=== PATIENT | female | born 1950 | race Caucasian/White ===

== ENCOUNTER → 2016-11-30 | Outpatient (CLI) | payer BC ==
[~2016-11-30] MED LIST: ALBINS/ INH; ALBUAER2 INH; APIX1TAB3 PO; ASCO100061 PO; ASPCH81X PO; CHOL100010 PO; CHOL100027 PO; CYAN100020 PO; ELQ25 PO; FLUT1INH INH; GLUC500T23 PO; LEVO125T5 PO; LEVO137T3 PO; MAGN400T6 PO; METO25TA56 PO; MOME16.7 INH; MULT-506 PO; OMEG10007 PO; OMEP20CA9 PO; OXGN; POTA1TAB PO; VNTHFA/IN INH; ZCR40 PO; ZLF/50 PO
[2016-11-30 16:53] LABS: URINE APPEARANCE CLEAR (CLEAR); URINE BILIRUBIN NEG (NEG); URINE COLOR YELLOW; URINE EPITHELIAL CELL AUTO >30 /lpf (0-5); URINE NITRITE NEG (NEG); URINE PH 6.5 (4.5-7.5); URINE SPECIFIC GRAVITY 1.009 (1.000-1.030); UROBILINOGEN NEG (NEG); ZZUR CULT IF INDIC CLEAN CATCH YES
[2016-11-30 17:00] LABS: MANUAL MICROSCOPIC REQUIRED? NO; REVIEW REQ? NO
[2016-11-30 17:07] LABS: CHOLESTEROL/HDL RATIO 2.3; THYROID STIMULATING HORMONE 0.11 uIu/ml (0.300-4.500)
== END | disposition home or self-care (01) ==
LOC: C.LABBFT 12:39
PROVIDERS: ATTEND Internal Medicine
DX: E03.9 Hypothyroidism, unspecified (principal); C18.9 Malignant neoplasm of colon, unspecified; M85.80 Other specified disorders of bone density and structure, unspecified site; E78.00 Pure hypercholesterolemia, unspecified

== ENCOUNTER → 2017-01-06 | Outpatient (CLI) | payer BC ==
[~2017-01-06] MED LIST changes: -ALBINS/ INH; -CHOL100027 PO; -ELQ25 PO; +LEVO125T4 PO; -LEVO125T5 PO; -METO25TA56 PO; -MOME16.7 INH; +OPTIRAY 320 IV PRN; -VNTHFA/IN INH
--- NOTE | 2017-01-06 07:18 | DIAGNOSTIC IMAGING REPORT ---
CHEST CT WITH CONTRAST CT DOSE: 3365.81 mGy.cm HISTORY: Colon carcinoma. COLON CA. TECHNIQUE: Multiaxial CT images of the chest were performed following the intravenous administration of contrast. COMPARISON: 09/10/2016 FINDINGS: Unchanged study of the right hemithorax compared to the prior exam. The consolidative and bronchiectatic changes in the right perihilar distribution have remained essentially identical compared to the prior study. There are no new interval or progressive changes involving the right hemithorax. Mild associated volume loss has remained unchanged. Left lung remains clear. There is no significant interval or new parenchymal nodularity. Hilar and mediastinal regions of the right hilar changes noted have remains stable. There is no evidence for new interval or progressive juan change. Limited evaluation of the upper abdomen remains unremarkable. Osseous structures show mild degenerative change. IMPRESSION: 1. Stable evaluation of chest compared to the prior study. 2. The right perihilar and right hilar and parenchymal changes remain stable. 3. No evidence for new interval or progressive process. Electronically signed by: Michael Bhat M.D. 01/06/2017 7:16 AM Dictated Date/Time: 01/06/2017 7:15 AM
--- NOTE | 2017-01-06 07:33 | DIAGNOSTIC IMAGING REPORT ---
CT OF THE ABDOMEN AND PELVIS WITH CONTRAST CLINICAL HISTORY: Colon cancer. COMPARISON STUDY: CT of the abdomen and pelvis September 10, 2016 and PET/CT July 07, 2016. TECHNIQUE: Following IV administration of 93 mL of Optiray-320, axial images of the abdomen and pelvis were obtained from the lung bases to the proximal femurs. Images were reviewed in the axial, sagittal, and coronal planes. IV contrast was administered without complication. Oral contrast was administered. FINDINGS: The chest will be reported separately. The liver, spleen, adrenal glands and pancreas are unremarkable. There are left-sided parapelvic cysts. There is no hydronephrosis. A gallstone is noted. There are findings consistent with a ventral hernia repair with mesh. There is no evidence for a bowel obstruction. The caliber and wall thickness of small and large bowel are normal. No abdominal or pelvic lymphadenopathy is present. No suspicious osseous lesions are present. IMPRESSION: 1. No evidence of metastatic disease within the abdomen or pelvis. 2. Cholelithiasis. Electronically signed by: Darron Price M.D. 01/06/2017 7:32 AM Dictated Date/Time: 01/06/2017 7:25 AM
== END | disposition home or self-care (01) ==
LOC: C.CTS 06:23
PROVIDERS: ATTEND Internal Medicine Hematology & Oncology
DX: C18.9 Malignant neoplasm of colon, unspecified (principal)

== ENCOUNTER → 2017-03-01 | Outpatient (CLI) | payer BC ==
[~2017-03-01] MED LIST changes: +CHOL100027 PO; +ELQ25 PO; -LEVO125T4 PO; +LEVO125T5 PO; +METO25TA56 PO; +MOME16.7 INH; -OPTIRAY 320 IV PRN; +VNTHFA/IN INH
--- NOTE | 2017-03-01 18:16 | DIAGNOSTIC IMAGING REPORT ---
CHEST 2 VIEWS ROUTINE CLINICAL HISTORY: C78.00 Secondary cancer of [id number] dyspnea COMPARISON STUDY: 04/12/2015. CT chest dated 01/06/2017. FINDINGS: Unchanging right hilar masslike enlargement compared to the prior CT of the chest. Chronic blunting right lateral costophrenic angle. Left lung is considered clear. IMPRESSION: Right hilar mass unchanged from the prior study. Chronic right hemithoracic findings. No acute process. Electronically signed by: Michael Bhat M.D. 03/01/2017 6:15 PM Dictated Date/Time: 03/01/2017 6:13 PM
== END | disposition home or self-care (01) ==
LOC: C.RAD 17:44
PROVIDERS: ATTEND Nurse Practitioner
DX: C78.00 Secondary malignant neoplasm of unspecified lung (principal)

== ENCOUNTER → 2017-03-21 | Outpatient (CLI) | payer BC ==
[~2017-03-21] MED LIST changes: +OPTIRAY 320 IV PRN
--- NOTE | 2017-03-21 18:30 | DIAGNOSTIC IMAGING REPORT ---
CT ANGIOGRAM OF THE CHEST CLINICAL HISTORY: Dyspnea. Lung cancer history. COMPARISON STUDY: Prior chest CT scans dated and 12/21/2013. Chest x-ray dated 03/01/2017. TECHNIQUE: Following the IV administration of 93 cc Optiray 320, CT angiogram of the chest was performed from the upper abdomen to the thoracic inlet utilizing the pulmonary embolus protocol. Images are reviewed in the axial, sagittal, and coronal planes. 3 MIPS images are created and assessed. IV contrast was administered without complication. The examination is degraded by large body habitus and by streak artifact from the patient's body wall abutting the CT gantry. FINDINGS: THYROID: The right lobe of the thyroid gland is diminutive or surgically absent. The left lobe of the thyroid gland is normal in attenuation. A 1.6 cm low attenuation nodule is again seen in the left lobe. THORACIC AORTA: There is minimal atherosclerotic calcification of the thoracic aorta which is normal in caliber and demonstrates standard 3-vessel arch anatomy. No dissection is seen. A left internal jugular central venous infusion port is in place. PULMONARY VASCULATURE: The pulmonary trunk is top normal in caliber measuring 3.0 cm in diameter. There are no filling defects identified within the main, lobar, or segmental pulmonary vessels to indicate pulmonary embolus. HEART: The heart is top normal in size and without pericardial effusion. The coronary artery calcifications are noted. MEDIASTINUM: There are scattered subcentimeter mediastinal lymph nodes. These are not pathologically enlarged by size criteria. JULIAN: Postoperative changes are noted in the right hilum and similar to previous. No evidence of progressive hilar adenopathy is seen. AXILLAE: There is no axillary lymphadenopathy. LUNGS AND PLEURAL SPACES: Again seen are postoperative changes from right upper lobectomy with associated volume loss in the right lung, elevation of the right hemidiaphragm, rightward shift of the mediastinum, and hyperinflation of the left lung. Scarring and fibrotic changes in the perihilar right lung are similar to previous. No new pulmonary lesions are seen. Postoperative change is again noted at the left apex. There is no airspace consolidation typical for pneumonia and no pleural effusion is seen.. Scattered calcified granulomas are identified. The trachea and central airways are patent. UPPER ABDOMEN: There is a small hiatal hernia. The liver appears enlarged and steatotic. Calcified gallstones are partially imaged. There is mild glandular atrophy of the partially imaged pancreas. No adrenal lesion is identified. There is a calcified splenic granuloma. SKELETAL STRUCTURES: The skeletal structures are osteopenic. No lytic or blastic bony lesions are identified. Mild degenerative changes are present throughout the thoracic spine. A hemangioma is noted in the body of L1. IMPRESSION: 1. There is no evidence of pulmonary embolus in the main, lobar, or segmental pulmonary arteries. 2. Unchanged appearance of the lung parenchyma from prior examinations noting postoperative change and fibrosis as above. 3. There is no airspace consolidation typical for pneumonia and no pleural effusion is identified. 4. Hepatic steatosis and cholelithiasis. 5. Additional findings as above. Electronically signed by: Isai Antoine M.D. 03/21/2017 6:28 PM Dictated Date/Time: 03/21/2017 6:20 PM
== END | disposition home or self-care (01) ==
LOC: C.CTS 17:47
PROVIDERS: ATTEND Nurse Practitioner
DX: C78.00 Secondary malignant neoplasm of unspecified lung (principal); R06.09 Other forms of dyspnea; Z86.711 Personal history of pulmonary embolism

== ENCOUNTER → 2017-05-02 | Outpatient (CLI) | payer BC ==
[~2017-05-02] MED LIST changes: -OPTIRAY 320 IV PRN
== END | disposition home or self-care (01) ==
LOC: C.CPL 15:27
PROVIDERS: ATTEND Surgery
DX: Z01.810 Encounter for preprocedural cardiovascular examination (principal); C18.9 Malignant neoplasm of colon, unspecified

== ENCOUNTER → 2017-06-01 | Outpatient (CLI) | payer BC ==
[~2017-06-01] MED LIST changes: -CHOL100027 PO; -ELQ25 PO; +LEVO125T4 PO; -LEVO125T5 PO; -LEVO137T3 PO; -METO25TA56 PO; -MOME16.7 INH; -OMEG10007 PO; -VNTHFA/IN INH
--- NOTE | 2017-06-01 12:33 | MAMMOGRAPHY REPORT ---
UNILATERAL LEFT DIGITAL DIAGNOSTIC MAMMOGRAM TOMOSYNTHESIS: 06/01/2017 CLINICAL HISTORY: 6 Month Follow-up. TECHNIQUE: Breast tomosynthesis in addition to standard 2D mammography was performed. Left CC and M LO 2-D and tomosynthesis images were obtained. COMPARISON: Comparison is made to exams dated: 11/24/2016 ultrasound, 11/24/2016 mammogram, 6 mammogram, 11/11/2015 mammogram, 11/06/2015 mammogram, and 11/05/2014 mammogram - [facility]. BREAST COMPOSITION: The tissue of the left breast is almost entirely fatty. FINDINGS: The previously described ill-defined mixed density masses seen within the left breast on t he prior mammogram are no longer evident and have resolved. Given the interval resolution, findings are benign and compatible with resolving fat necrosis. A small round circumscribed fat density 3 mm mass is seen within the left upper outer quadrant anteriorly, consistent with a small residual oil [place]. The remainder of the left breast is stable compared to prior exams, without suspicious masses, c alcifications, or areas of architectural distortion noted. IMPRESSION: ACR BI-RADS CATEGORY 2: BENIGN Mixed density masses in the left breast have resolved, and are benign and compatible with resolving f at necrosis. There is no mammographic evidence of malignancy. Return to annual mammogram screening s chedule is recommended, due October 2017. The patient has been verbally notified of the results. Approximately 10% of breast cancers are not detected with mammography. A negative mammographic report should not delay biopsy if a clinically suggestive mass is present. Gracie Carrera M.D. ah/:06/01/2017 08:15:50 Sweeper Driver: Radha Lopez RT(R)(Jose), [facility] letter sent: Normal 1/2 BI-RADS Code: ACR BI-RADS Category 2: Benign
== END | disposition home or self-care (01) ==
LOC: C.MAMM 07:53
PROVIDERS: ATTEND Internal Medicine
DX: N63 Unspecified lump in breast (principal)

== ENCOUNTER 2017-06-02 09:40 | Day surgery (SDC) | payer BC ==
[2017-05-23 09:58] VITALS: BMI 49.0
[~2017-06-02] VITALS: Ht 162.6 cm; Wt 131.7 kg
[2017-06-02 10:16] VITALS: BP 152/72; PULSE 96; TEMP 36.7; O2SAT 95; Ht 162.6 cm; Wt 131.7 kg
[2017-06-02] MEDS ORDERED: ONDANSETRON INJ 2 MG/ML 2 ML VIAL IV PRN ×2 (10:30→13:15)
[2017-06-02] MEDS ORDERED: ATROPINE SULFATE 0.1 MG/ML 5ML SYR IV PRN (10:30)
[2017-06-02] MEDS ORDERED: EpHEDrine SULFATE INJ 50 MG/ML AMP IV PRN (10:30)
[2017-06-02] MEDS ORDERED: FENTANYL CITRATE INJ 50 MCG/1 ML 2 ML VIAL IV PRN (10:30)
[2017-06-02] MEDS ORDERED: LIDOCAINE HCL 2% 2 ML VIAL (20MG/ML) ONE (10:53)
[2017-06-02] MEDS ORDERED: FENTANYL CITRATE INJ 50 MCG/1 ML 2 ML VIAL ONE (10:53)
[2017-06-02] MEDS ORDERED: PROPOFOL IV EMULSION 10 MG/ML 20 ML VIAL IV ONE (10:53)
[2017-06-02] MEDS ORDERED: MIDAZOLAM HCL 1 MG/ML 2ML VIAL ONE (10:53)
--- NOTE | 2017-06-02 12:03 | History & Physical Bridge Note ---
H&P Re-Evaluation Bridge Note: I have examined the patient, reviewed the History & Physical and in the interval since the performance of the History & Physical I have noted the following changes of clinical significance: No changes noted SO at bedside Blake Chavira Tuesday
[2017-06-02] MEDS ORDERED: LIDOCAINE/EPINEPHRINE 1% 20 ML VIAL ONE (12:12)
--- NOTE | 2017-06-02 13:04 | [facility] Post Operative Brief Note ---
Immediate Operative Summary Operative Date Jun 02, 2017. Pre-Operative Diagnosis Exhausted infusaport left ext jugular Post-Operative Diagnosis same Procedure(s) Performed infusaport removal Surgeon Dr Zimmerman Agricultural Equipment Design Engineer Surgeon(s) none Estimated Blood Loss 5 ml Findings as preop Specimens a. explanted infusaport Anesthesia 1%xyl(10cc and iv sedation
--- NOTE | 2017-06-02 13:08 | Discharge Instructions ---
Discharge Instructions Date of Service Jun 02, 2017. Visit Reason for Visit: Colon Cancer exhausted a-port Discharge Discharge Diagnosis / Problem: exhausted a-port Discharge Goals Goal(s): Decrease discomfort Activity Recommendations Activity Limitations: resume your previous activity Shower/Bathe: tomorrow (shower) Anesthesia . Post Anesthesia Instructions: If you have had General Anesthesia or IV Sedation: * Do not drive today. * Resume driving when surgeon permits. * Do not make important decisions or sign legal documents today. * Call surgeon for: 1. Temperature elevations greater than 101 degrees F. 2. Uncontrollable pain. 3. Excessive bleeding. 4. Persistent nausea and vomiting. 5. Medication intolerance (nausea, vomiting or rash). * For nausea and vomiting use only clear liquids such as: tea, soda, bouillon until nausea subsides, then gradually increase diet as tolerated. * If you have any concerns or questions, call your surgeon's office. If physician is unavailable and it is an emergency, call 911 or go to the nearest emergency room. . Instructions / Follow-Up Instructions / Follow-Up return office 1 week call [phone] for any problems Diet Recommendations Recommended Home Diet: resume previous diet Procedures Procedures Performed: infusaport removal Pending Studies Studies pending at discharge: no Medical Emergencies . Who to Call and When: Medical Emergencies: If at any time you feel your situation is an emergency, please call 911 immediately. . Non-Emergent Contact Non-Emergency issues call your: Primary Care Provider . . "Provider Documentation" section prepared by Richard Zimmerman. .
--- NOTE | 2017-06-02 13:13 | [facility] Operative Report ---
Operative Report Operative Date Jun 02, 2017. Pre-Operative Diagnosis Exhausted infusaport left ext jugular Post-Operative Diagnosis same Procedure(s) Performed infusaport removal Surgeon Dr Zimmerman [employer] Intelligence Officer Chief Surgeon(s) none Estimated Blood Loss 5 ml Findings as preop Specimens a. explanted infusaport Anesthesia 1%xyl(10cc and iv sedation Disposition PCU Indications exhausted a-port Description of Procedure iodine solution and sterile cond local infiltration a-port and cath removed intact 2 incision direct visualization of entry in ext jugular vein , sutured with 3-0 silk fibrous cap once cat removed 2-0 dexon sub cut and con skin edge I attest to the content of the Intraoperative Record and any orders documented therein. Any exceptions are noted below.
--- NOTE | 2017-06-02 13:30 | Anesthesiology Progress Note ---
Anesthesia Post Op Note Date & Time Jun 02, 2017 at 13:29 Vital Signs Pain Intensity: 0 Vital Signs Past 12 Hours Date Time Temp Pulse Resp B/P (MAP) Pulse Ox O2 Delivery O2 Flow Rate FiO2 06/02/17 13:21 36.6 99 20 157/88 95 06/02/17 13:14 101 16 06/02/17 13:14 99 16 95 06/02/17 13:12 147/86 06/02/17 13:09 103 33 06/02/17 13:09 103 33 98 06/02/17 13:06 157/85 06/02/17 13:04 103 16 99 06/02/17 13:04 104 16 06/02/17 13:01 178/94 06/02/17 13:00 166/90 06/02/17 12:59 36.2 103 18 166/90 (109) 100 Nasal Cannula 10 06/02/17 12:59 105 21 06/02/17 12:59 104 21 99 06/02/17 10:16 36.7 96 20 152/72 (98) 95 Room Air Notes Mental Status: alert / awake / arousable, participated in evaluation Pt Amnestic to Procedure: Yes Nausea / Vomiting: adequately controlled Pain: adequately controlled Airway Patency, RR, SpO2: stable & adequate BP & HR: stable & adequate Hydration State: stable & adequate Anesthetic Complications: no major complications apparent
[2017-06-02 13:55] VITALS: BP 138/77; PULSE 98; TEMP 36.6; O2SAT 95
[2017-06-02 14:10] VITALS: BP 143/65; PULSE 98; TEMP 36.6; O2SAT 95
== END 2017-06-02 14:20 | disposition home or self-care (01) ==
LOC: C.ACU 09:40
PROVIDERS: ATTEND Surgery
DX: Z45.2 Encounter for adjustment and management of vascular access device (principal); C18.9 Malignant neoplasm of colon, unspecified; C78.00 Secondary malignant neoplasm of unspecified lung; J45.909 Unspecified asthma, uncomplicated; D64.9 Anemia, unspecified; F41.9 Anxiety disorder, unspecified; F32.9 Major depressive disorder, single episode, unspecified; K21.9 Gastro-esophageal reflux disease without esophagitis; E78.00 Pure hypercholesterolemia, unspecified; E03.9 Hypothyroidism, unspecified; E66.9 Obesity, unspecified; M85.80 Other specified disorders of bone density and structure, unspecified site; G47.30 Sleep apnea, unspecified; E55.9 Vitamin D deficiency, unspecified; Z86.711 Personal history of pulmonary embolism; Z86.718 Personal history of other venous thrombosis and embolism; Z79.82 Long term (current) use of aspirin; Z79.899 Other long term (current) drug therapy; Z99.81 Dependence on supplemental oxygen

== ENCOUNTER → 2017-06-07 | Outpatient (CLI) | payer BC ==
[~2017-06-07] MED LIST changes: -APIX1TAB3 PO
== END | disposition home or self-care (01) ==
LOC: C.LABBFT 12:16
PROVIDERS: ATTEND Internal Medicine
DX: E03.9 Hypothyroidism, unspecified (principal)

== ENCOUNTER → 2017-08-15 | Outpatient (CLI) | payer OTHER ==
[~2017-08-15] MED LIST changes: +OPTIRAY 320 IV PRN
--- NOTE | 2017-08-15 15:30 | DIAGNOSTIC IMAGING REPORT ---
(CHEST) THORAX WITH CLINICAL HISTORY: 67 years-old Female presenting with COLON CA, follow-up. TECHNIQUE: Multidetector CT imaging of the chest was performed after the administration of intravenous contrast. IV contrast: 119 mL of Optiray 320. A dose lowering technique was used consistent with the principles of ALARA (as low as reasonably achievable). COMPARISON: 03/21/2017. CT DOSE (mGy.cm): The estimated cumulative dose is 2923.[address] abdomen and pelvis. FINDINGS: Scroll Assembler topogram: Elevation of the right hemidiaphragm unchanged. On soft tissue windows, left thyroid lobe nodule measuring 16 mm, unchanged. No axillary, supraclavicular, hilar, or mediastinal lymphadenopathy. Minimal atherosclerosis of the aortic arch. Persistent rightward shift of the mediastinum. Normal heart size. No pericardial or pleural effusion. Cholelithiasis noted in the upper abdomen. On lung windows, persistent elevation of the right hemidiaphragm with postoperative changes of right upper lobectomy and possibly right middle lobectomy. Interval increase in masslike soft tissue in the superior paramediastinal right lung, measuring approximately 2.1 cm, previously 1.3 cm at this level (series 6 image 71). Persistent peribronchovascular consolidation in the central right lung, not significantly changed in appearance from prior. Postsurgical changes also noted at the left apex and posterior laterally at the right lower lobe. Interval development of minimal groundglass opacities in the posterior lateral left lung base, possibly atelectasis. Occlusion of the right upper lobe and right middle lobe bronchi, unchanged. Remaining airways patent. On bone windows, degenerative changes of the thoracic spine. IMPRESSION: 1. Interval increase in size of masslike soft tissue in the superior right paramediastinal lung, concerning for recurrent disease. 2. Postsurgical changes of the right lung with persistent peribronchovascular consolidation and architectural distortion. 3. Atelectasis suspected at the posterior lateral left lung base. 4. Cholelithiasis. Electronically signed by: Joe Botello M.D. 08/15/2017 3:28 PM Dictated Date/Time: 08/15/2017 3:18 PM
--- NOTE | 2017-08-16 08:22 | DIAGNOSTIC IMAGING REPORT ---
CT OF THE ABDOMEN AND PELVIS WITH CONTRAST CLINICAL HISTORY: Colon cancer. COMPARISON STUDY: CT of the abdomen and pelvis January 06, 2017 and PET/CT March 18, 2014. TECHNIQUE: Following IV administration of 119 mL of Optiray-320, axial images of the abdomen and pelvis were obtained from the lung bases to the proximal femurs. Images were reviewed in the axial, sagittal, and coronal planes. IV contrast was administered without complication. A dose lowering technique was utilized adhering to the principles of ALARA. Oral contrast was administered. CT DOSE: 2923.43 mGy.cm FINDINGS: The chest will be reported separately. Elevation of the right hemidiaphragm is increased. The liver, spleen, adrenal glands, kidneys and pancreas are unremarkable. There is a gallstone within the gallbladder. There is no lymphadenopathy within the abdomen or pelvis. No suspicious osseous lesions are present. There are postsurgical changes consistent with a ventral hernia repair with mesh. IMPRESSION: No evidence of recurrent malignancy within the abdomen or pelvis. Electronically signed by: Darron Price M.D. 08/16/2017 8:21 AM Dictated Date/Time: 08/15/2017 3:33 PM
== END | disposition home or self-care (01) ==
LOC: C.CTS 14:00
PROVIDERS: ATTEND Nurse Practitioner Family
DX: Z85.038 Personal history of other malignant neoplasm of large intestine (principal); J98.4 Other disorders of lung; J18.1 Lobar pneumonia, unspecified organism; K80.20 Calculus of gallbladder without cholecystitis without obstruction

== ENCOUNTER → 2017-08-24 | Outpatient (CLI) | payer OTHER ==
[~2017-08-24] MED LIST changes: -OPTIRAY 320 IV PRN
--- NOTE | 2017-08-24 11:09 | DIAGNOSTIC IMAGING REPORT ---
PET/CT HISTORY: COLORECTAL CANCER TECHNIQUE: PET/CT was performed from the base of the skull through the pelvis following the intravenous administration of 13.8 mCi of F18-FDG. Non-contrast CT imaging was performed over the same range without breath-hold for attenuation correction of PET images and anatomic correlation, but not for primary interpretation as it is not of standard diagnostic quality. CT DOSE: COMPARISON: Chest abdomen and pelvis CT 08/15/2017. PET CT 07/07/2016. FINDINGS: HEAD AND NECK: There is no FDG-avid disease or significant lymphadenopathy in the imaged portions of the head and the neck. CHEST: There is a 4.8 x 3.3 x 2.5 cm FDG avid right hilar mass. This demonstrates an SUV max of 8.9 and is consistent with metastatic disease. Mild FDG uptake associated with the right perihilar consolidation favors posttreatment changes. ABDOMEN/PELVIS: Below the diaphragm, tracer is distributed physiologically in the gastrointestinal and genitourinary tracts. There is no significant lymphadenopathy and no FDG-avid disease. Cholelithiasis. Anterior abdominal wall mesh. MUSCULOSKELETAL: There is no FDG-avid or destructive bone lesion. IMPRESSION: A 4.8 x 3.3 x 2.5 cm FDG avid right hilar mass consistent with metastatic disease. Electronically signed by: Norberto Pandya M.D. 08/24/2017 11:07 AM Dictated Date/Time: 08/24/2017 10:57 AM
== END | disposition home or self-care (01) ==
LOC: C.PET 08:12
PROVIDERS: ATTEND Nurse Practitioner Family
DX: C18.9 Malignant neoplasm of colon, unspecified (principal)

== ENCOUNTER 2017-10-18 15:39 | Emergency (ER) | payer OTHER ==
[~2017-10-18] VITALS: Ht 162.6 cm; Wt 130.4 kg
[~2017-10-18 15:39] MED LIST changes: +APIX1TAB3 PO; -FLUT1INH INH; -LEVO125T4 PO; +LEVO125T5 PO; +MOME16.7 INH
[2017-10-18 15:42] VITALS: TEMP 36.5
[2017-10-18 16:03] VITALS: Ht 162.6 cm; Wt 130.4 kg
[2017-10-18] MEDS ORDERED: CHOL100027 PO (16:11)
[2017-10-18] MEDS ORDERED: VNTHFA/IN INH (16:11)
[2017-10-18 16:20] LABS: BASO % 0.2 %; BASO ABS # 0.01 K/uL (0-0.2); COMPLETE YES; EOS % 3.6 %; HEMATOCRIT 44.5 % (37-47); IG% 0.2 %; LYMPH % 16.6 %; LYMPH ABS # 0.93 K/uL (1.2-3.4); MEAN CELL VOLUME 95.5 fL (80-100); MEAN CORPUSCULAR HEMOGLOBIN 30.3 pg (25-34); MEAN CORPUSCULAR HGB CONC 31.7 g/dl (32-36); MONO % 9.6 %; NEUT % 69.8 %; PLATELET COUNT 141 K/uL (130-400); RED BLOOD COUNT 4.66 M/uL (4.2-5.4); WHITE BLOOD COUNT 5.61 K/uL (4.8-10.8)
[2017-10-18 16:27] LABS: ISTAT IONIZED CALCIUM 1.15 mmol/l (1.12-1.32)
[2017-10-18 16:39] LABS: PARTIAL THROMBOPLASTIN RATIO 1.3; PROTHROMBIN TIME (PATIENT) 10.3 SECONDS (9.0-12.0)
[2017-10-18 16:40] LABS: ALT/SGPT 22 U/L (12-78); BLOOD UREA NITROGEN 17 mg/dl (7-18); BUN/CREATININE RATIO 16.8 (10-20); CALCIUM 9.2 mg/dl (8.5-10.1); CARBON DIOXIDE 32 mmol/L (21-32); CHLORIDE 104 mmol/L (98-107); CREATININE 1.03 mg/dl (0.60-1.20); GLUCOSE 102 mg/dl (70-99); SODIUM 141 mmol/L (136-145)
[2017-10-18 16:41] VITALS: O2SAT 94
[2017-10-18 16:41] LABS: ALB/GLOB RATIO 0.9 (0.9-2); ALKALINE PHOSPHATASE 96 U/L (45-117); AST/SGOT 15 U/L (15-37)
[2017-10-18] MEDS ORDERED: OPTIRAY 320 IV PRN (16:45)
--- NOTE | 2017-10-18 17:02 | DIAGNOSTIC IMAGING REPORT ---
CT ANGIOGRAPHY OF THE CHEST, PULMONARY EMBOLUS PROTOCOL CLINICAL HISTORY: Shortness of breath. History of colorectal cancer. COMPARISON STUDY: Chest CT August 15, 2017 and PET/CT August 24, 2017. TECHNIQUE: Following IV administration of 116 mL of Optiray-320, helical axial images of the chest were obtained utilizing the pulmonary embolus protocol. Maximal intensity projections and sagittal and coronal reformats were viewed on an independent 3D workstation. IV contrast was administered without complication. A dose lowering technique was utilized adhering to the principles of ALARA. CT DOSE: 691.93 mGy.cm FINDINGS: No pulmonary emboli are identified. There is no evidence of thoracic aortic dissection. There are postoperative findings consistent with a right upper lobe resection and left upper lobe wedge resection. A right suprahilar mass is similar to CT of August 15, 2017. The largest component measures 3.1 x 2.8 cm. The infiltrative mass likely extends inferiorly with occlusion of segmental bronchi, possibly within the right middle lobe. No new pulmonary nodules are present. Right paramediastinal opacity is unchanged and likely reflects posttreatment change. Right hemithorax volume loss is unchanged. There is no consolidation to suggest pneumonia. No pneumothorax or pleural effusion is present. Bony thorax is unremarkable. There is a gallstone within the gallbladder. Minimal left basilar opacity favors atelectasis or bronchiolitis. IMPRESSION: 1. No pulmonary emboli identified. 2. Status post right upper lobe resection and left upper lobe wedge resection. No significant change in the right hilar/suprahilar mass since CT of August 15, 2017 and PET/CT of August 24, 2017. This is suggestive of metastatic disease. Electronically signed by: Darron Price M.D. 10/18/2017 5:01 PM Dictated Date/Time: 10/18/2017 4:45 PM
--- NOTE | 2017-10-18 17:13 | EMERGENCY ROOM VISIT NOTE ---
History Report prepared by [employer]: Verna Ramos Under the Supervision of: Santino SolisO. First contact with patient: 15:44 Chief Complaint: SHORTNESS OF BREATH Stated Complaint: SOB Nursing Triage Summary: triage note: Pt reports hx of colon cancer with mets to lung. pt reports while having radiation tx today her pulse was 132 and oxygen level was 91%. pt reports shortness of breath which started 2 weeks ago but is getting worse. History of Present Illness The patient is a 67 year old female who presents to the Emergency Room with complaints of worsening shortness of breath for the past couple of weeks. The patient has colon cancer that has metastasized to her lung. She is currently undergoing radiation treatment for her cancer. She is getting radiation twice a day for 17 days. She has two more days of treatment. Two days ago the patient developed shortness of breath while at radiation and she scheduled a follow-up appointment with her PCP for tomorrow. Today while the patient was getting her radiation treatment her pulse was 132. She felt very short of breath. Her shortness of breath is worsened with exertion. Dr. Avalos, her oncologist, advised her to come to the ED for further evaluation of her symptoms and to rule out a blood clot. The patient has a history of DVT and PE. She is on Eliquis and took her typical dose this morning. She has also been experiencing some nausea and a dry cough. She rates her current pain as a 1/10 in severity. The patient denies fevers, vomiting, melena, hematochezia, and pain or swelling in her legs. Source of History: patient Onset: a couple of weeks ago Position: chest (respiratory) Symptom Intensity: 1/10 Quality: other (shortness of breath) Timing: worsening Modifying Factors (Worsening): exertion Associated Symptoms: + cough, + nausea, No fevers, No vomiting, No back pain , No melena Review of Systems See HPI for pertinent positives & negatives. A total of 10 systems reviewed and were otherwise negative. Past Medical & Surgical Medical Problems: (1) Colon cancer metastasized to lung Family History Cancer Diabetes mellitus Heart disease Hypertension Social History Smoking Status: Never Smoker Alcohol Use: none Occupation Status: retired Current/Historical Medications Scheduled Apixaban (Eliquis), 5 MG PO BID Ascorbic Acid (Ascorbic Acid), 1,000 MG PO QAM Aspirin (Aspirin Chewable), 81 MG PO HS Cholecalciferol (Vitamin D 1000 Unit), 1,000 INTER.UNIT PO DAILY Cyanocobalamin (Vitamin B12), 1 TAB PO HS Glucosamine-Chondroitin (Glucosamine/Chondroitin), 1 TAB PO BID Home O2 Therapy (Oxygen), 2 LITERS NA HS Levothyroxine Sodium (Levothyroxine Sodium), 1 TAB PO QAM Magnesium Oxide (Mag-Ox), 400 MG PO BID Mometasone Furoate (Inhalation (Asmanex Hfa), 2 PUFFS INH BID Multivitamin (Multivitamin), 1 TAB PO QAM Omeprazole (Prilosec), 20 MG PO QAM Potassium Gluconate (Potassium Gluconate), 595 MG PO BID Sertraline HCl (Sertraline HCl), 50 MG PO HS Simvastatin (Simvastatin), 40 MG PO QPM Scheduled PRN Albuterol Hfa (Ventolin Hfa), 2 PUFF INH Q6H PRN for SOB/Wheezing Allergies Coded Allergies: Thiopental (Verified Allergy, Unknown, INCREASED BLEEDING WITH WISDOM TEETH SURG, 06/02/17) Meperidine (Verified Adverse Reaction, Mild, N/V, 06/02/17) Morphine (Verified Adverse Reaction, Mild, N/V, 06/02/17) Physical Exam Vital Signs Date Time Temp Pulse Resp B/P (MAP) Pulse Ox O2 Delivery O2 Flow Rate FiO2 10/18/17 17:14 113 16 149/87 94 Room Air 10/18/17 16:41 94 Room Air 10/18/17 16:41 114 16 147/91 93 Room Air 10/18/17 16:13 117 10/18/17 16:03 98 Room Air 10/18/17 15:42 36.5 131 20 180/101 93 Room Air Physical Exam GENERAL: Patient is awake, alert, and in no acute distress. Patient is resting comfortably and showing no signs of anxiety EYES: The conjunctivae are clear. The pupils are round and reactive. EARS, NOSE, MOUTH AND THROAT: The nose is without any evidence of any deformity. Mucous membranes are moist tongue is midline NECK: The neck is nontender and supple. RESPIRATORY: Lung sounds diminished in right lung field, no significant tachypnea or conversational dyspnea noted. CARDIOVASCULAR: Tachycardic rate and regular rhythm noted there no murmurs rubs or gallops normal S1 normal S2 GASTROINTESTINAL: The abdomen is soft. Bowel sounds are present in all quadrants. Abdomen is nontender PELVIS: The Pelvis is stable. No tenderness to palpation is noted. BACK: No midline tenderness or or step-off noted range of motion in flexion extension as well as rotation no signs of muscle spasm noted MUSCULOSKELETAL/EXTREMITIES: There is no evidence of gross deformity full range of motion is noted in the hips and shoulders SKIN: Pedal edema bilaterally but no calf tenderness elicited. There is no obvious evidence of any rash. There are no petechiae, pallor or cyanosis noted. NEUROLOGIC: Patient is awake alert and oriented x3 Medical Decision & Procedures ER Provider Diagnostic Interpretation: Radiology results as stated below per my review and radiologist interpretation: CT ANGIOGRAPHY OF THE CHEST, PULMONARY EMBOLUS PROTOCOL CLINICAL HISTORY: Shortness of breath. History of colorectal cancer. COMPARISON STUDY: Chest CT August 15, 2017 and PET/CT August 24, 2017. TECHNIQUE: Following IV administration of 116 mL of Optiray-320, helical axial images of the chest were obtained utilizing the pulmonary embolus protocol. Maximal intensity projections and sagittal and coronal reformats were viewed on an independent 3D workstation. IV contrast was administered without complication. A dose lowering technique was utilized adhering to the principles of ALARA. CT DOSE: 691.93 mGy.cm FINDINGS: No pulmonary emboli are identified. There is no evidence of thoracic aortic dissection. There are postoperative findings consistent with a right upper lobe resection and left upper lobe wedge resection. A right suprahilar mass is similar to CT of August 15, 2017. The largest component measures 3.1 x 2.8 cm. The infiltrative mass likely extends inferiorly with occlusion of segmental bronchi, possibly within the right middle lobe. No new pulmonary nodules are present. Right paramediastinal opacity is unchanged and likely reflects posttreatment change. Right hemithorax volume loss is unchanged. There is no consolidation to suggest pneumonia. No pneumothorax or pleural effusion is present. Bony thorax is unremarkable. There is a gallstone within the gallbladder. Minimal left basilar opacity favors atelectasis or bronchiolitis. IMPRESSION: 1. No pulmonary emboli identified. 2. Status post right upper lobe resection and left upper lobe wedge resection. No significant change in the right hilar/suprahilar mass since CT of August 15, 2017 and PET/CT of August 24, 2017. This is suggestive of metastatic disease. Electronically signed by: Darron Price M.D. 10/18/2017 5:01 PM Dictated Date/Time: 10/18/2017 4:45 PM Laboratory Results 10/18/17 16:08 Red Blood Count 4.66, Mean Corpuscular Volume 95.5, Mean Corpuscular Hemoglobin 30.3, Mean Corpuscular Hemoglobin Concent 31.7, Mean Platelet Volume 10.0, Neutrophils (%) (Auto) 69.8, Lymphocytes (%) (Auto) 16.6, Monocytes (%) (Auto) 9.6, Eosinophils (%) (Auto) 3.6, Basophils (%) (Auto) 0.2, Neutrophils # (Auto) 3.92, Lymphocytes # (Auto) 0.93, Monocytes # (Auto) 0.54, Eosinophils # (Auto) 0.20, Basophils # (Auto) 0.01 10/18/17 16:08 Test 10/18/17 16:08 10/18/17 16:14 White Blood Count 5.61 K/uL (4.8-10.8) Red Blood Count 4.66 M/uL (4.2-5.4) Hemoglobin 14.1 g/dL (12.0-16.0) Hematocrit 44.5 % (37-47) Mean Corpuscular Volume 95.5 fL (80-100) Mean Corpuscular Hemoglobin 30.3 pg (25-34) Mean Corpuscular Hemoglobin Concent 31.7 g/dl (32-36) Platelet Count 141 K/uL (130-400) Mean Platelet Volume 10.0 fL (7.4-10.4) Neutrophils (%) (Auto) 69.8 % Lymphocytes (%) (Auto) 16.6 % Monocytes (%) (Auto) 9.6 % Eosinophils (%) (Auto) 3.6 % Basophils (%) (Auto) 0.2 % Neutrophils # (Auto) 3.92 K/uL (1.4-6.5) Lymphocytes # (Auto) 0.93 K/uL (1.2-3.4) Monocytes # (Auto) 0.54 K/uL (0.11-0.59) Eosinophils # (Auto) 0.20 K/uL (0-0.5) Basophils # (Auto) 0.01 K/uL (0-0.2) RDW Standard Deviation 51.2 fL (36.4-46.3) RDW Coefficient of Variation 14.6 % (11.5-14.5) Immature Granulocyte % (Auto) 0.2 % Immature Granulocyte # (Auto) 0.01 K/uL (0.00-0.02) Prothrombin Time 10.3 SECONDS (9.0-12.0) Prothromb Time International Ratio 1.0 (0.9-1.1) Activated Partial Thromboplast Time 34.0 SECONDS (21.0-31.0) Partial Thromboplastin Ratio 1.3 Est Creatinine Clear Calc Drug Dose 73.1 ml/min Estimated GFR () 66.1 Estimated GFR (Non- 57.0 BUN/Creatinine Ratio 16.8 (10-20) Calcium Level 9.2 mg/dl (8.5-10.1) Total Bilirubin 0.4 mg/dl (0.2-1) Aspartate Amino Transf (AST/SGOT) 15 U/L (15-37) Alanine Aminotransferase (ALT/SGPT) 22 U/L (12-78) Alkaline Phosphatase 96 U/L (45-117) Troponin I < 0.015 ng/ml (0-0.045) Total Protein 7.2 gm/dl (6.4-8.2) Albumin 3.5 gm/dl (3.4-5.0) Globulin 3.7 gm/dl (2.5-4.0) Albumin/Globulin Ratio 0.9 (0.9-2) Bedside Hemoglobin 15.0 g/dl (12.0-16.0) Bedside Hematocrit 44 % (37-47) Bedside Sodium 143 mEq/L (135-144) Bedside Potassium 4.0 mEq/L (3.3-5.0) Bedside Chloride 101 mEq/L (101-112) Bedside Total CO2 31 mEq/l (24-31) Anion Gap 16.0 mmol/L (16-25) Bedside Blood Urea Nitrogen 18 mg/dl (7-18) Bedside Creatinine 1.0 mg/dl (0.6-1.3) Bedside Glucose (other) 103 mg/dl (70-99) Bedside Ionized Calcium ([place]) 1.15 mmol/l (1.12-1.32) Laboratory results per my review. ECG Indication: SOB/dyspnea Rate (beats per minute): 128 Rhythm: sinus tachycardia Findings: ST depression (diffuse), no ectopy, other (no PVCs) Comparison ECG Date: 05/02/2017 Change: Increased rate otherwise no change. ED Course 1544: The patient was evaluated in room A2. A complete history and physical examination were performed. 1709: I reassessed the patient at this time. She is feeling better and resting comfortably. I discussed the results and treatment plan with the patient. I answered all pertaining questions that she had. She expressed understanding and verbalized agreement. The patient will be discharged home. She has a follow-up appointment with her PCP tomorrow. Medical Decision Differential diagnosis: Etiologies such as infections, reactive airway disease, pneumonia, pneumothorax , COPD, CHF, cardiac ischemia, pulmonary embolism, musculoskeletal, gastrointestinal, as well as others were entertained. Nursing notes reviewed. The patient is a 67-year-old female who presented to emergency department for palpitations and shortness of breath. The patient has a history of metastatic colon cancer with a metastasis to the lungs. She is currently receiving radiation to this area. She was found have tachycardia but only baseline hypoxia. The patient was sent to the emergency department from radiation oncology for a CT the chest. I discussed the patient's laboratory and radiographic studies with her. She was found have elevated blood pressure as well as tachycardia but her CT of the chest did not reveal signs of acute pulmonary embolism. She was encouraged to continue all medications as prescribed. She has a follow-up appointment with her primary care physician tomorrow. She was encouraged to keep this appointment and discuss her concerns. It is possible she may require treatment for her blood pressure. At this time I would wonder if the patient's underlying condition including the metastatic disease to the lung is causing some of her respiratory problems as well as the tachycardia. She was encouraged to rest and avoid any strenuous activity. She was also encouraged to return to the emergency department immediately if symptoms change worsen or the need arises. Medication Reconcilliation Current Medication List: was personally reviewed by me Blood Pressure Screening Patient's blood pressure: Elevated blood pressure Blood pressure disposition: Referred to PCP Impression Primary Impression: Shortness of breath Additional Impressions: Palpitations Sinus tachycardia Scribe Attestation The scribe's documentation has been prepared under my direction and personally reviewed by me in its entirety. I confirm that the note above accurately reflects all work, treatment, procedures, and medical decision making performed by me. Departure Information Dispostion Home / Self-Care Referrals Bacilio Garcia M.D. (PCP) Forms HOME CARE DOCUMENTATION FORM, IMPORTANT VISIT INFORMATION Patient Instructions My [facility] Additional Instructions Call your family in the morning to schedule follow-up appointment. Rest and avoid any strenuous activity. Drink plenty of liquids. Continue all medications as prescribed. Discuss the possibility that may require further studies or possibly medications for your blood pressure. Her blood pressure was elevated in the emergency department today and I would recommend a recheck with your family doctor. Problem Qualifiers
[2017-10-18 17:14] VITALS: BP 149/87; PULSE 113; O2SAT 94
[2017-10-19] MEDS ORDERED: METO25TA56 PO (14:56)
== END 2017-10-18 17:22 | disposition home or self-care (01) ==
LOC: C.EDB 15:40 → C.EDA 17:22
DX: R06.02 Shortness of breath (principal); R00.2 Palpitations; R00.0 Tachycardia, unspecified; C18.9 Malignant neoplasm of colon, unspecified; C78.00 Secondary malignant neoplasm of unspecified lung; Z79.82 Long term (current) use of aspirin; Z79.899 Other long term (current) drug therapy; Z80.9 Family history of malignant neoplasm, unspecified; Z83.3 Family history of diabetes mellitus; Z82.49 Family history of ischemic heart disease and other diseases of the circulatory system

== ENCOUNTER → 2017-11-15 | Outpatient (CLI) | payer OTHER ==
[~2017-11-15] MED LIST changes: -ALBUAER2 INH; -CHOL100010 PO; +CHOL100027 PO; +METO25TA56 PO; +VNTHFA/IN INH
== END | disposition home or self-care (01) ==
LOC: C.RC 09:05
PROVIDERS: ATTEND Internal Medicine Pulmonary Disease
DX: J45.909 Unspecified asthma, uncomplicated (principal); R05 Cough

== ENCOUNTER → 2017-11-23 | Outpatient (CLI) | payer OTHER ==
[~2017-11-23] MED LIST changes: +ALBINS/ INH; +BECL80AE6 INH; +METO50TA8 PO; +ONDA-170 PO; +OXYC-57 PO
--- NOTE | 2017-11-23 10:20 | DIAGNOSTIC IMAGING REPORT ---
PET/CT HISTORY: COLON CANCER TECHNIQUE: PET/CT was performed from the base of the skull through the pelvis following the intravenous administration of 14.9 mCi of F18-FDG. Non-contrast CT imaging was performed over the same range without breath-hold for attenuation correction of PET images and anatomic correlation, but not for primary interpretation as it is not of standard diagnostic quality. CT DOSE: COMPARISON: PET CT 10/18/2017. PET CT 08/24/2017. FINDINGS: HEAD AND NECK: There is no FDG-avid disease or significant lymphadenopathy in the imaged portions of the head and the neck. FDG uptake within the larynx and scalene muscles is likely physiologic. CHEST: There is again noted a 4.7 x 3.1 x 2.3 cm FDG avid right hilar mass. This is similar in size compared the prior study. However, the FDG uptake has progressed and now demonstrates an SUV max of 11.5. This previously demonstrated an SUV max of 8.9. No FDG avid mediastinal lymph nodes. Mild FDG uptake within the right perihilar consolidation remains unchanged and favors post radiation changes. ABDOMEN/PELVIS: Below the diaphragm, tracer is distributed physiologically in the gastrointestinal and genitourinary tracts. There is no significant lymphadenopathy and no FDG-avid disease. Cholelithiasis. Anterior abdominal wall mesh. MUSCULOSKELETAL: There is no FDG-avid or destructive bone lesion. IMPRESSION: No significant change in size of the 4.7 x 3.1 x 2.3 cm FDG avid right hilar mass consistent with metastatic disease. However, the FDG uptake within this lesion has increased. Therefore, this is consistent with progression of disease. Electronically signed by: Norberto Pandya M.D. 11/23/2017 10:19 AM Dictated Date/Time: 11/23/2017 10:07 AM
== END | disposition home or self-care (01) ==
LOC: C.PET 07:21
PROVIDERS: ATTEND Internal Medicine Hematology & Oncology
DX: C18.9 Malignant neoplasm of colon, unspecified (principal)

== ENCOUNTER → 2017-12-02 | Outpatient (CLI) | payer OTHER ==
[~2017-12-02] MED LIST changes: -BECL80AE6 INH; -METO50TA8 PO; -ONDA-170 PO; -OXYC-57 PO
[2017-12-02 08:16] VITALS: BP 121/70; PULSE 96; TEMP 36.5; O2SAT 92
--- NOTE | 2017-12-02 11:31 | Radiation Oncology Follow-Up ---
Radiation Oncology Follow-Up Date of Visit Dec 02, 2017. Reason For Visit One-month follow-up Radiation Completion Date 10/24/17 Diagnosis (1) Colon cancer metastasized to lung Status: Chronic Onset Date: 09/18/2008 Location: right hilum Histology Subtype: adenocarcinoma Stage: IV Permanent Comment: Adenocarcinoma of the colon with lung metastasis diagnosed in 2007 Status post right lobectomy 07/10/2008 Status post colonoscopy and biopsy 09/18/2008 revealing the colon lesion. Status post resection. This was followed by chemotherapy. Status post left upper lobe wedge resection 08/24/2011 due to metastasis Status post stereotactic radiation therapy in 2011 Completed chemotherapy in 2014 Status post wedge resection with Dr. navarrete 2015 Status post hypo-fractionated radiation therapy in 2015 PET/CT 08/24/2017 revealing metabolic activity of the right hilum. Status post completion of radiation therapy 10/24/2017 utilizing VMAT. Last Edited By: Meaghan Alves on Nov 02, 2017 11:11 History of Present Illness Ms. Abel was evaluated in the fall of 2006 for increasing fatigue. She was ultimately found to have sleep apnea and was placed on a CPAP with some improvement. On December 25, 2007, the patient underwent an initial colonoscopy. This showed a circumferential tumor involving three-quarters of the circumference distal to the splenic flexure.No other polyps or neoplasms were seen. There was some sigmoid diverticula. A,biopsy was taken by Dr. Wood and was positive for an adenocarcinoma,,Intermediate Grade Case [id number]. On December 25 as part of her preoperative,workup she underwent a chest x-ray. This showed a 4.5 cm right hilar mass. A,CT scan of the chest, abdomen, and pelvis was ordered and performed on,December 26, 2007. This confirmed a 5 cm right upper lobe pulmonary mass with,some central calcifications. There is no evidence of pathologic adenopathy,within the chest. There are no hepatic masses and no evidence of abdominal,pathologic adenopathy. The patient was seen by Dr. Gerardo Calderon for evaluation of the pulmonary mass. On December 29 Dr. Calderon performed a fiberoptic bronchoscopy with transbronchial biopsies. Left tracheobronchial tree was unremarkable. The right upper lobe bronchus intermedius, right middle and right lower lobe were examined. The bronchus intermedius, right middle lobe and right lower lobe showed no abnormalities. In the anterior segment of the right upper lobe there was some extrinsic compression. Under fluoroscopic guidance multiple brushings and transbronchial biopsy was obtained. The bronchial brushings confirmed an adenocarcinoma, Case [id number]. Bronchial brushings showed rare atypical cells Case [id number]. The transbronchial biopsy of the right upper lobe mass showed metastatic colonic adenocarcinoma high grade. Case [id number]. The patient was seen in referral by Dr. Gerardo Johnson on January 03, 2008. On January 17, 2008, the patient underwent a staging PET CT scan. This confirmed a large right upper lobe mass with SUVs up to 10.4. There was no uptake in the central area consistent with central necrosis. There was increased uptake fusing to the right hilar lymph node with an SUV of 4.8 suspicious for hilar or metastatic hilar adenopathy. Avid uptake was also noted fusing to the proximal distal colon with an SUV of 10.9 consistent with the known colon primary disease. The patient had a port placed by Dr. Femi Tapia on January 18, 2008 for the systemic chemotherapy. She was treated with FOLFOX and Cetuximab and on July 10, 2008 she underwent a right upper lobe wedge resection and right upper lobectomy. The right upper lobe wedge resection confirmed residual moderately differentiated infiltrative adenocarcinoma. The tumor measured 1.5 x 1.0 x 1.8 cm and extended to the staple line of resection. The tumor failed to extend to the pleural adhesions. In addition, a 0.5 x 0.5 x 0.5 cm calcified nodule was noted with necrosis, fibrosis, and metaplastic ossification. The subsequent right upper lobe lobectomy specimen showed metastatic adenocarcinoma in one of seven peribronchial lymph nodes. The positive lymph node measured 1.2 cm and was nearly entirely replaced by necrosis, fibrosis, and adenocarcinoma. No residual adenocarcinoma was appreciated. This lesion was moderate and diffusely positive for CK-20 and negative for CK-7. Case 08 [id number]. On September 18 the patient underwent a distal transverse and proximal descending colectomy. The specimen showed two microscopic foci of residual infiltrative moderately differentiated adenocarcinoma seen within the muscularis propria at the site of induration. The proximal and distal surgical margins of resection were free of cancer. No lymphovascular space invasion was seen. One of 19 colonic lymph nodes contained microscopic focus of metastatic adenocarcinoma consisting of three viable glands. The staging was ypT3 N1M1. Case [id number]. The patient continued systemic chemotherapy postoperatively consisting of Oxaliplatin 50 mg/sq m, Leucovorin 400 mg/sq m, 5- FU 270 mg/sq m along with Erbitux 250 mg/sq m. Chemotherapy started in December of 2008 and completed in February. Restaging PET scan was performed on October 25, 2008. This showed marked improvement in the appearance of the study compared to the preoperative study. Metabolic activity in the chest, abdomen, and pelvis were essentially normal. The study was felt to be essentially negative. CT scan chest, abdomen, and pelvis on January 06, 2009 showed postoperative changes, but no evidence of disease. Studies were repeated on March 06, 2009. This study showed several small nodes in the mediastinal and hilar region for the most part stable. A retrotracheal node measuring 9 mm had slightly increased in size. A 1.2 cm fatty lymph node was noted in the left pelvic sidewall also stable. This study raised the potential of disease progression. The PET CT scan from March 12, 2009 continued to show no evidence of disease and was reported as negative A repeat CT scan May 01, 2009 remains stable with no evidence of disease. Repeat CT scan chest, abdomen, and pelvis June 27, [address] scan August 28, [address] scan September 05, 2009 showed slight interval enlargement of the left upper lobe pulmonary nodule measuring 5 mm. No hepatic METS noted. Interval development of an area of bowel thickening involving the right lower quadrant small bowel loop. Repeat CT scan chest, abdomen, and pelvis on February 02, 2010 showed an enlarged left paratracheal lymph node measuring 1.9 x 1.4 cm with a nodule in the medial left upper lobe slightly larger now measuring 7 mm up from [address] scan chest, abdomen, and pelvis performed April 06, 2010 showed stable left upper lobe pulmonary nodule. CT scan chest, abdomen, and pelvis on June 08, 2010 showed stable findings. Repeat CT scan chest, abdomen, and pelvis on August 05, 2010 showed a stable left paratracheal soft tissue nodule with no evidence of metastatic disease. A colonoscopy on August 11, 2010 showed no evidence of recurrent disease. CT scan chest, abdomen, and pelvis on January 05, 2011 showed stable findings with no evidence of metastatic disease. CT scan of chest, abdomen, and pelvis on August 03, 2011 tissue density in the anterior medial right upper lobe now measuring 1.7 x 1.5 cm. A soft tissue mass in the medial left upper lobe is increased in size measuring 1.1 x 1.2 cm. These increased soft tissue densities suggest bilateral pulmonary metastasis. No liver metastasis or pelvic recurrence was appreciated. A repeat colonoscopy on August 17, 2011 showed no evidence of recurrence. PET CT scan from August 11, 2011 showed an enlarging nodule at the left apex measuring 1.2 x 1.1 cm with FDG avidity of 6.4. A new soft tissue nodule was noted in the right pericardiac region anteriorly measuring 1.2 x 1.9 cm with an SUV max of 5.2. These are worrisome for metastatic lesions. The patient was once again evaluated by Dr. Zimmerman. On August 24, 2011 he performed a left video-assisted thorascopic surgery with wedge excision of the left upper lobe lesion. By frozen section this was consistent with an adenocarcinoma. The permanent section confirmed a moderately differentiated adenocarcinoma of the wedge excision consistent with metastatic carcinoma of colon primary. The tumor grossly abuts the staple line. An additional wedge excision showed the en face margin and this additionally resected tissue was negative for tumor. Case [id number]. The right lung lesion was not excised. The patient was once again reevaluated by Dr. Gerardo Johnson for further oncologic treatment recommendations. He is concerned that the left upper lobe excision is positive thus surely likely to recur. I will review these path reports as it appears that it may in fact be negative. She does, however, have residual disease and probable residual disease in the left lung as her only site of residual disease. Dr. Johnson was planning on once again giving her FOLFIRI and Erbitux as adjuvant therapy. I was asked to see the patient in referral to discuss the role of salvage radiation. I felt the patient may be better served by consideration of stereotactic radiation. Patient was subsequently seen by Dr. Ballesteros. She was resumed on salvage systemic therapy with Erbitux, Rommel T Pino and 5-fluorouracil. He discussed with her the potential use of stereotactic radiation. The decision at that time was to hold off on treatment pending repeat CT imaging.. The patient ultimately did proceed with a course of salvage stereotactic radiation receiving a dose of 48 Gy in 4 fractions completing therapy on 01/03/2012. On 02/14/2012 she returned for follow-up with Dr. Ballesteros and was doing well. A PET /CT scan performed on 05/23/2013 showed postoperative changes and scarring in the right lung with low level FDG activity within the paramediastinal right lung likely postoperative. There is no evidence of metastatic disease at that time. The patient continued to be followed by Dr. Johnson and had a repeat PET CT scan on 12/17/2013. This showed a slight increase in FDG activity and in the size of the right paramediastinal nodular lung opacity compared to the prior study study of 05/23/2013. This could represent post surgical changes but is worrisome for recurrent disease. A CT scan of the chest was performed on 2013. The left upper lobe medial nodule described previously was no longer seen. There was a question of some interim postsurgical changes in the region with evidence of scarring. The right upper lobe medial nodule appeared smaller with postsurgical changes and progressive scarring. No evidence of pathologic juan enlargement. A repeat PET/CT scan was performed on 03/18/2014. This showed stable to slightly improved PET/CT scan compared to the prior study with no evidence of dissemination. Repeat PET/CT scan on 12/16/2014 was performed. This unfortunately showed an enlarging right paramediastinal soft tissue mass with significantly increased FDG avidity compared to the prior study of 2013. This is consistent with recurrent metastatic disease. Patient return to discuss these findings with Dr. Johnson will arrange for the patient to be seen by Dr. Torres. She was seen on 12/30/2014. He discussed surgical treatment options and the patient agreed to proceed with a redo right thoracotomy, total pulmonary decortication and middle lobe therapeutic wedge resection. This was performed on 01/22/2015. A biopsy of the mediastinal adipose tissue adjacent to the tumor was performed showing no evidence of tumor. The right lung middle lobe wedge biopsy confirmed adenocarcinoma consistent with a metastatic adenocarcinoma of colorectal primary. The wedge resection consisted of a tissue measuring 7.5 x 6.4 x 4.5 cm within which a poorly defined friable hemorrhagic mass was noted measuring 3.7 x 3.5 x 2.9 cm. The mass grossly extended into the attached adipose tissue and comes to within 1 cm of the stapled margin. Histologically the tumor was approximately 0.2 cm from the inked pleural margin. The lung parenchymal (stapled margin) is negative for tumor.. Accession #: [id number]. Following her visit in 2014 the patient went on to continue surveillance. In 2011 she had salvage stereotactic radiation therapy and [place]. He 2014 there was a wedge resection performed by Dr. Torres in [place]. She once again underwent chemotherapy. She then had salvage hypo-fractionated radiation therapy to a solitary metabolic area of activity in the right hilar area. This was 6000 cGy over 8 fractions. She's been followed by Dr. Glez and her most recent PET scan on 08/24/2017 has revealed a 4.8 x 3.3 x 2.5 cm FDG avid right hilar mass consistent with metastatic disease. Due to this finding patient has been referred to our office for evaluation. She underwent a CT simulation. The prior treatment pattern and most recent PET CT were fused. Was felt the patient could undergo treatment. There is concern for overlap and possible tissue necrosis. This was reviewed with her and she was in agreement to undergo treatment. She completed radiation therapy 2016. She received 3740 cGy utilizing volumetric modulated arc therapy. Interim History She's been doing well in the past month. She denies any difficulty with swallowing. She did not develop any skin irritation of the anterior posterior chest. She denies any change in her respiratory status. There is been no increasing cough and no increasing shortness of breath. She did see Dr. Glez in follow-up who ordered a PET scan. That was performed on 11/23/2017. Allergies Coded Allergies: Thiopental (Verified Allergy, Unknown, INCREASED BLEEDING WITH WISDOM TEETH SURG, 06/02/17) Meperidine (Verified Adverse Reaction, Mild, N/V, 06/02/17) Morphine (Verified Adverse Reaction, Mild, N/V, 06/02/17) Home Medications Scheduled Albuterol Sulf (Proventil 0.083% 2.5MG/3ML), 2.5 MG INH QID Apixaban (Eliquis), 5 MG PO BID Ascorbic Acid (Ascorbic Acid), 1,000 MG PO QAM Aspirin (Aspirin Chewable), 81 MG PO HS Cholecalciferol (Vitamin D 1000 Unit), 1,000 INTER.UNIT PO DAILY Cyanocobalamin (Vitamin B12), 1 TAB PO HS Glucosamine-Chondroitin (Glucosamine/Chondroitin), 1 TAB PO BID Home O2 Therapy (Oxygen), 2 LITERS NA HS Levothyroxine Sodium (Levothyroxine Sodium), 1 TAB PO QAM Magnesium Oxide (Mag-Ox), 400 MG PO BID Metoprolol Tartrate (Lopressor) (Lopressor), 12.5 MG PO BID Mometasone Furoate (Inhalation (Asmanex Hfa), 2 PUFFS INH BID Multivitamin (Multivitamin), 1 TAB PO QAM Omeprazole (Prilosec), 20 MG PO QAM Potassium Gluconate (Potassium Gluconate), 595 MG PO BID Sertraline HCl (Sertraline HCl), 50 MG PO HS Simvastatin (Simvastatin), 40 MG PO QPM Scheduled PRN Albuterol Hfa (Ventolin Hfa), 2 PUFF INH Q6H PRN for SOB/Wheezing Review of Systems Gastrointestinal: Symptoms: WNL Oral: Symptoms: No Problems Respiratory: Symptoms: Dry Cough, SOB With Exertion Other Respiratory: Wears CPAP at night; Urinary: Symptoms: WNL Skin: Symptoms: No Problems Physical Exam Vital Signs Date Time Temp Pulse Resp B/P (MAP) Pulse Ox O2 Delivery O2 Flow Rate FiO2 12/02/17 08:16 36.5 96 12 121/70 92 Fatigue: None General Appearance: no apparent distress Eyes: normal inspection, EOMI ENT: normal ENT inspection, hearing grossly normal Neck: supple, no adenopathy Respiratory/Chest: lungs clear, no respiratory distress, no accessory muscle use, + decreased breath sounds Cardiovascular: regular rate, rhythm, no gallop, no murmur Abdomen: non tender, soft, no organomegaly Extremities: no pedal edema Neurologic/Psychiatric: no motor/sensory deficits, alert, normal mood/affect Skin: warm/dry Pain Management Patient Reports Pain: No Pain Location: None Patient Preferred Pain Scale: 0 - 10 Initial Pain Intensity: 0.0 Pain Management Plan She requires no pain management. Laboratory Laboratory Results: not applicable Pathology Pathology Results: not applicable Imaging Imaging Studies: were reviewed, and pertinent findings noted below Imaging Comments Patient: MERCEDEZ ABEL Address1: [address] Rec: [id number] Address2: Acct ID: [id number] [facility] Zip: [place] [address] Date: 1950 Sex: F Room/Bed: Ref Phy: Bacilio Garcia M.D. SC: C.PET Att Phy: Daniel Glez D.O. Report #: [id number] Mara Phy: Bacilio Garcia M.D. Test: PETCTST Admit Phy: Geoscience Professor: DAVE Interpreting Phy: Norberto Pandya MD Diagnosis: MALIGNANT NEOPLASM,COLON, UNSPECIFIED Ordering Phy: Daniel Glez D.O. Service Date: 11/23/17 Admit Date: 11/23/17 MNE: [id number] CONF: DICTATED BY: Norberto Pandya M.D.]] CC: Daniel Glez D.O. Hester, Christopher E., M.D. Endcc: [~ rep ct add3]] PET/CT HISTORY: COLON CANCER TECHNIQUE: PET/CT was performed from the base of the skull through the pelvis following the intravenous administration of 14.9 mCi of F18-FDG. Non-contrast CT imaging was performed over the same range without breath-hold for attenuation correction of PET images and anatomic correlation, but not for primary interpretation as it is not of standard diagnostic quality. CT DOSE: COMPARISON: PET CT 10/18/2017. PET CT 08/24/2017. FINDINGS: HEAD AND NECK: There is no FDG-avid disease or significant lymphadenopathy in the imaged portions of the head and the neck. FDG uptake within the larynx and scalene muscles is likely physiologic. CHEST: There is again noted a 4.7 x 3.1 x 2.3 cm FDG avid right hilar mass. This is similar in size compared the prior study. However, the FDG uptake has progressed and now demonstrates an SUV max of 11.5. This previously demonstrated an SUV max of 8.9. No FDG avid mediastinal lymph nodes. Mild FDG uptake within the right perihilar consolidation remains unchanged and favors post radiation changes. ABDOMEN/PELVIS: Below the diaphragm, tracer is distributed physiologically in the gastrointestinal and genitourinary tracts. There is no significant lymphadenopathy and no FDG-avid disease. Cholelithiasis. Anterior abdominal wall mesh. MUSCULOSKELETAL: There is no FDG-avid or destructive bone lesion. IMPRESSION: No significant change in size of the 4.7 x 3.1 x 2.3 cm FDG avid right hilar mass consistent with metastatic disease. However, the FDG uptake within this lesion has increased. Therefore, this is consistent with progression of disease. Electronically signed by: Norberto Pandya M.D. 11/23/2017 10:19 AM Dictated Date/Time: 11/23/2017 10:07 AM Assessment & Plan Plan: Patient was seen and examined by Dr. Avalos. PET scan was reviewed. She requested a copy and that was given. The changes that are seen may be due to progression or secondary to the radiation therapy. Dr. Glez discussed the patient with Dr. Avalos. The plan is for close observation and she will have a recheck scan in approximately 2 months and he is also planning recheck bloodwork and a CEA titer in one month. We asked her to return to our office in 6 months. She will call if she has any questions or concerns in the interim. Assessment & Plan (Attending) ADDENDUM: I agree with note created by Meaghan Alves PA-C. I reviewed the patient's chart and information with her. I have examined and evaluated the patient. I reviewed relevant clinical information and answered the patient's and /or family's questions. TANKMAN Total Time In Follow-Up I spent 20 minutes speaking to the patient and performing examination. I spent 15 minutes reviewing information in completing this note. AK Total Time (Attending) In Follow-Up I spent 15 minutes examining and counseling the patient. TANKMAN Copy To Daniel Glez D.O.; Bacliio Garcia M.D.
== END | disposition home or self-care (01) ==
LOC: C.ONC 07:57
PROVIDERS: ATTEND Physician Assistant Medical
DX: Z08 Encounter for follow-up examination after completed treatment for malignant neoplasm (principal); Z92.3 Personal history of irradiation; Z85.118 Personal history of other malignant neoplasm of bronchus and lung

== ENCOUNTER → 2017-12-13 | Outpatient (CLI) | payer OTHER | END | disposition home or self-care (01) | LOC: C.LABBFT 09:06 | PROVIDERS: ATTEND Internal Medicine | DX: E78.00 Pure hypercholesterolemia, unspecified (principal); E03.9 Hypothyroidism, unspecified; E55.9 Vitamin D deficiency, unspecified ==

== ENCOUNTER → 2018-02-07 | Outpatient (CLI) | payer OTHER ==
--- NOTE | 2018-02-07 20:31 | DIAGNOSTIC IMAGING REPORT ---
CHEST 2 VIEWS ROUTINE CLINICAL HISTORY: Shortness of breath, cough and fever. Colon cancer. COMPARISON STUDY: Chest CT October 18, 2017. FINDINGS: Right hemithorax volume loss is unchanged. Right perihilar masslike opacity is similar to exam of October 18, 2017. Elevation of the right hemidiaphragm is unchanged. There is no pneumothorax. There is no evidence for pulmonary edema. No consolidation is identified to suggest pneumonia. Blunting of the right costophrenic angle is unchanged. IMPRESSION: No consolidation to suggest pneumonia. Persistent mass-like right perihilar opacity, better depicted on prior chest CT. Electronically signed by: Darron Price M.D. 02/07/2018 8:30 PM Dictated Date/Time: 02/07/2018 8:26 PM
== END | disposition home or self-care (01) ==
LOC: C.RAD 20:03
PROVIDERS: ATTEND Internal Medicine
DX: R50.9 Fever, unspecified (principal); R06.02 Shortness of breath; R05 Cough; R91.8 Other nonspecific abnormal finding of lung field

== ENCOUNTER → 2018-02-14 | Outpatient (CLI) | payer OTHER ==
[~2018-02-14] MED LIST changes: +OPTIRAY 320 IV PRN
--- NOTE | 2018-02-14 14:18 | DIAGNOSTIC IMAGING REPORT ---
ABD/PELVIS IV AND ORAL CONT CLINICAL HISTORY: 67 years-old Female presenting with WITH W/O METASTATIC COLON CA. TECHNIQUE: Multidetector CT of the abdomen and pelvis was performed after the administration of oral and intravenous contrast. IV contrast: 93 mL of Optiray 320. A dose lowering technique was used consistent with the principles of ALARA (as low as reasonably achievable). COMPARISON: 08/15/2017. CT DOSE (mGy.cm): The estimated cumulative dose is 2773.28 mGy.cm. FINDINGS: Senior Buyer Planner topogram: Elevation of the right hemidiaphragm, unchanged. Lung bases: Architectural distortion and chronic peribronchial vascular consolidation in the right lung. A resection margin is noted in the right lung with overlying pleural thickening. Normal heart size. No pericardial or pleural effusion. Liver: Normal morphology. No liver lesion. Patent hepatic vasculature. Biliary: No intrahepatic or extrahepatic biliary ductal dilatation. Gallbladder contains gallstones. Pancreas: Moderate parenchymal atrophy. Spleen: Few parenchymal calcifications likely related to prior granulomatous infection. Adrenal glands: Normal. Kidneys and ureters: Focal cortical defect in the left kidney in the interpolar region may relate to prior infection, injury, or infarct. Few parapelvic cysts noted in the kidneys bilaterally. No hydronephrosis. No nephrolithiasis. Ureters normal. Bladder: Incompletely evaluated secondary to underdistention. Pelvic organs: Uterus surgically absent. Normal ovaries. Bowel: Normal. No bowel obstruction. No mass is identified. No suture margin to suggest resection. Peritoneal cavity: No free fluid or intraperitoneal gas. Lymph nodes: No enlarged lymph nodes in the abdomen or pelvis. Vasculature: Aorta and IVC patent and normal in caliber. Abdominal wall: Postsurgical changes of prior ventral hernia repair. Musculoskeletal: Degenerative changes of the spine. No destructive osseous lesion. Benign hemangioma noted in the L2 vertebral body. IMPRESSION: 1. No evidence of residual or recurrent disease in the abdomen or pelvis. 2. Please see separately dictated CT of the chest. Electronically signed by: Joe Botello M.D. 02/14/2018 2:17 PM Dictated Date/Time: 02/14/2018 2:06 PM
--- NOTE | 2018-02-14 14:28 | DIAGNOSTIC IMAGING REPORT ---
CHEST CT WITH CONTRAST HISTORY: Follow-up study in a patient with metastatic colon cancer WITH W/O METASTIC COLON CA TECHNIQUE: Multiaxial CT images of the chest were performed following the intravenous administration of contrast. A dose lowering technique was utilized adhering to the principles of ALARA. COMPARISON: CTA of the chest 10/18/2017, PET CT 11/23/2017. FINDINGS: Heterogeneous thyroid with a 1.0 cm left thyroid nodule. No definite pathologic adenopathy of the chest identified. The heart is normal in size without pericardial effusion. The thoracic aorta is normal in course and caliber without aneurysm or dissection. There is mild atherosclerosis of the thoracic aorta. Surgical suture material about the right hilum is redemonstrated with evidence of prior right upper lobe resection. Additionally, there is evidence of left upper lobe wedge resection. Mass about the right hilum is again noted with focal right perihilar and right upper lung opacity measuring up to 9.4 x 6.3 cm, previously measuring 8.0 x [address] study dated 11/23/2017. The boundaries of the right hilar mass are difficult to delineate however measures approximately 3.0 x 2.0 cm on image 64 of series 6, previously 3.1 x 2.[address] study dated 10/18/2017 1 measured in a similar fashion. There is no pleural effusion or focal airspace consolidation. 4 mm solid nodule of the right upper lung, image 41 of series 6 appears new from prior study. The central airways appear patent. Cholelithiasis without CT evidence of acute cholecystitis. No acute process of the imaged upper abdomen. Soft tissues are unremarkable. No suspicious lytic or blastic bony lesions to suggest bony metastasis. Multilevel degenerative changes about the spine. IMPRESSION: 1. Unchanged size and appearance of the right hilar mass with adjacent right upper lung airspace consolidation which is mildly increased in size from comparison likely reflecting posttreatment related changes. 2. Prior right upper lobectomy and left upper lobe wedge resection. 3. New 4 mm nodule of the right lung apex. Attention at follow-up is recommended to exclude metastasis. 4. No pathologic adenopathy or evidence of bony metastasis. 5. Cholelithiasis. Please refer to below summary of Fleischner criteria recommendations for follow-up of incidental CT nodules (Raquel Castaneda, Guidelines for management of small pulmonary nodules detected on CT scans: A statement from the Fleischner Society, Radiology 237: [phone].) SOLID NODULES Solitary nodule size: <6 mm * Low risk patients: no follow-up needed * high risk patients: optional CT at 12 months Note: newly detected indeterminate nodule in persons 35 years of age or older. * Low risk patients: minimal or absent history of smoking and/or other known risk factors * high risk patients: history of smoking or of other known risk factors (e.g. first degree relative with lung cancer, or exposure to asbestos, radon, uranium) * if a nodule up to 8 mm is partly solid or is ground glass further follow-up is required after 24 months to exclude possible slow growing adenocarcinoma (MARISSA) The above report was generated using voice recognition software. It may contain grammatical, syntax or spelling errors. Electronically signed by: Vincent Duran M.D. 02/14/2018 2:27 PM Dictated Date/Time: 02/14/2018 2:15 PM
== END | disposition home or self-care (01) ==
LOC: C.CTS 13:23
PROVIDERS: ATTEND Internal Medicine Hematology & Oncology
DX: C18.9 Malignant neoplasm of colon, unspecified (principal)

== ENCOUNTER → 2018-06-28 | Outpatient (CLI) | payer OTHER ==
[~2018-06-28] MED LIST changes: -ALBINS/ INH; +BECL80AE6 INH; -METO25TA56 PO; +METO50TA8 PO; -MOME16.7 INH; +ONDA-170 PO; -OPTIRAY 320 IV PRN
[2018-06-28 10:38] LABS: BASO % 0.4 %; BASO ABS # 0.01 K/uL (0-0.2); EOS % 5.6 %; EOS ABS # 0.13 K/uL (0-0.5); HEMATOCRIT 43.6 % (37-47); HEMOGLOBIN 14.2 g/dL (12.0-16.0); IG# 0.01 K/uL (0.00-0.02); LYMPH % 26.6 %; LYMPH ABS # 0.62 K/uL (1.2-3.4); MEAN CELL VOLUME 95.4 fL (80-100); MEAN CORPUSCULAR HEMOGLOBIN 31.1 pg (25-34); MEAN CORPUSCULAR HGB CONC 32.6 g/dl (32-36); MONO % 9.9 %; MONO ABS # 0.23 K/uL (0.11-0.59); NEUT % 57.1 %; NEUT ABS # 1.33 K/uL (1.4-6.5); PLATELET COUNT 124 K/uL (130-400); RED CELL DISTRIBUTION WIDTH SD 45.5 fL (36.4-46.3); WHITE BLOOD COUNT 2.33 K/uL (4.8-10.8)
[2018-06-28 11:00] LABS: ALBUMIN 3.4 gm/dl (3.4-5.0); ALT/SGPT 46 U/L (12-78); AST/SGOT 29 U/L (15-37); BLOOD UREA NITROGEN 17 mg/dl (7-18); CALCIUM 9.2 mg/dl (8.5-10.1); CARBON DIOXIDE 30 mmol/L (21-32); CREATININE 1.12 mg/dl (0.60-1.20); GLUCOSE 101 mg/dl (70-99); POTASSIUM 4.1 mmol/L (3.5-5.1); SODIUM 139 mmol/L (136-145)
[2018-06-28 11:01] LABS: ALKALINE PHOSPHATASE 85 U/L (45-117); TOTAL PROTEIN 7.2 gm/dl (6.4-8.2)
== END | disposition home or self-care (01) ==
LOC: C.LABSPEC 10:18
PROVIDERS: ATTEND Internal Medicine Hematology & Oncology
DX: C18.9 Malignant neoplasm of colon, unspecified (principal)

== ENCOUNTER → 2018-07-04 | Outpatient (CLI) | payer OTHER ==
[2018-07-04 08:48] LABS: BASO % 0.4 %; BASO ABS # 0.01 K/uL (0-0.2); EOS % 13.5 %; EOS ABS # 0.35 K/uL (0-0.5); HEMATOCRIT 39.2 % (37-47); HEMOGLOBIN 12.4 g/dL (12.0-16.0); LYMPH % 20.4 %; LYMPH ABS # 0.53 K/uL (1.2-3.4); MEAN CELL VOLUME 97.3 fL (80-100); MEAN CORPUSCULAR HEMOGLOBIN 30.8 pg (25-34); MEAN CORPUSCULAR HGB CONC 31.6 g/dl (32-36); MEAN PLATELET VOLUME 9.7 fL (7.4-10.4); MONO % 10.8 %; MONO ABS # 0.28 K/uL (0.11-0.59); NEUT % 54.9 %; NEUT ABS # 1.43 K/uL (1.4-6.5); PLATELET COUNT 146 K/uL (130-400); RED CELL DISTRIBUTION WIDTH SD 48.8 fL (36.4-46.3)
[2018-07-04 09:08] LABS: ALBUMIN 3.1 gm/dl (3.4-5.0); ALKALINE PHOSPHATASE 74 U/L (45-117); ALT/SGPT 35 U/L (12-78); AST/SGOT 24 U/L (15-37); BLOOD UREA NITROGEN 13 mg/dl (7-18); CALCIUM 8.7 mg/dl (8.5-10.1); CARBON DIOXIDE 29 mmol/L (21-32); CREATININE 0.83 mg/dl (0.60-1.20); GLUCOSE 105 mg/dl (70-99); POTASSIUM 3.4 mmol/L (3.5-5.1); SODIUM 146 mmol/L (136-145); TOTAL PROTEIN 6.4 gm/dl (6.4-8.2)
== END | disposition home or self-care (01) ==
LOC: C.LABSPEC 08:35
PROVIDERS: ATTEND Internal Medicine Hematology & Oncology
DX: C18.9 Malignant neoplasm of colon, unspecified (principal)

== ENCOUNTER 2019-01-28 08:17 | Inpatient (IN) ==
[2019-01-28] MEDS ORDERED: ALBUT/IPRATROP 3MG/0.5MG NEB 3 ML VIAL NEB STA (08:58)
[2019-01-28] MEDS ORDERED: SODIUM CHLORIDE 0.9% 1000ML 1,000 ML IV ONE (09:01)
[2019-01-28 09:32] LABS: Base Excess VBG 3.7 mEq/L; Oxygen Saturation VBG 70.5 %; pH VBG 7.44 (7.36-7.41)
[2019-01-28 09:43] LABS: Basophils # (auto) 0.01 K/uL (0-0.2); Basophils % (auto) 0.2 %; Eosinophils # (auto) 0.01 K/uL (0-0.5); Eosinophils % (auto) 0.2 %; Hematocrit (blood only) 41.5 % (37-47); Hemoglobin 13.3 g/dL (12.0-16.0); Immature Granulocytes # (auto) 0.01 K/uL (0.00-0.02); Immature Granulocytes % (auto) 0.2 %; Lymphocytes # (auto) 0.55 K/uL (1.2-3.4); Lymphocytes % (auto) 8.7 %; Mean Corpuscular Volume 97.2 fL (80-100); Mean Platelet Volume 10.1 fL (7.4-10.4); Monocytes % (auto) 9.4 %; Neutrophils # (auto) 5.17 K/uL (1.4-6.5); Neutrophils % (auto) 81.3 %; Platelet Count 101 K/uL (130-400); RDW Coefficient of Variation 13.6 % (11.5-14.5); RDW Standard Deviation 48.1 fL (36.4-46.3); Red Blood Count 4.27 M/uL (4.2-5.4); White Blood Count 6.35 K/uL (4.8-10.8)
[2019-01-28 09:56] LABS: INR 1.1 (0.9-1.1); Partial Thromboplastin Ratio 1.3; Prothrombin Time 11.3 Seconds (9.0-12.0)
[2019-01-28 10:00] LABS: Albumin Level 2.9 gm/dl (3.4-5.0); BUN Creatinine Ratio 12.4 (10-20); Calcium 7.3 mg/dl (8.5-10.1); Creatinine Clr Calc Pharmacy 89.5 ml/min; Est GFR (African American) 86.4; Est GFR (Non-African American) 74.6; Potassium 3.8 mmol/L (3.5-5.1)
[2019-01-28 10:03] LABS: Albumin Globulin Ratio 0.8 (0.9-2); Bilirubin,Total 0.5 mg/dl (0.2-1); Globulin 3.6 gm/dl (2.5-4.0); Total Protein 6.5 gm/dl (6.4-8.2)
--- NOTE | 2019-01-28 10:06 | CT Scan Report ---
CT head/brain wo con CLINICAL HISTORY: 68 years-old Female with rodriguez hx of lung ca. Acutely altered mental status. History of colorectal carcinoma TECHNIQUE: Multiple axial CT images of the head were obtained without contrast. A dose lowering tech nique was utilized adhering to the principles of ALARA. CT DOSE: 537.48 mGy.cm COMPARISON: PET CT 05/29/2018. FINDINGS: No acute intracranial hemorrhage, midline shift, intracranial mass, hydrocephalus, territorial ischem ia or abnormal extra-axial collection. Age-related involutional changes, notably with bifrontal atrop hy. Cerebral vascular calcifications are noted. The calvarium is intact. Partially imaged moderate mucosal thickening of the right maxillary sinus. Mastoid air cells are clear. No suspicious bone lesions. Soft tissues and orbits appear unremarkable. IMPRESSION: No acute intracranial abnormality. The above report was generated using voice recognition software. It may contain grammatical, syntax o r spelling errors. Electronically signed by: Vincent Duran M.D. 01/28/2019 10:05 AM
--- NOTE | 2019-01-28 10:23 | XRay Report ---
XR chest 1V portable HISTORY: 68 years-old Female Sepsis acute sepsis COMPARISON: Chest radiograph 09/30/2018 TECHNIQUE: Portable AP view of the chest FINDINGS: Cardiomediastinal and hilar silhouettes are unchanged. Chronic postoperative changes of the right hem ithorax with unchanged right hemidiaphragmatic elevation. Stable positioning of right pectoral Infuse -a-Port catheter. No pneumothorax. Left lung is generally clear. Degenerative changes of the shoulder s and spine. IMPRESSION: No acute process. The above report was generated using voice recognition software. It may contain grammatical, syntax o r spelling errors. Electronically signed by: Vincent Duran M.D. 01/28/2019 10:22 AM
[2019-01-28 10:31] LABS: Influenza A virus by PCR Neg for Influ A (Neg); Influenza B virus by PCR Neg for Influ B (Neg)
[2019-01-28 10:52] LABS: Appearance Urine Clear (Clear); Bacteria Urine Automated Negative (Negative); Bilirubin Urine Negative (Negative); Blood Urine 1+ (Negative); Color Urine Yellow; Glucose Urine UA Negative (Negative); Ketones Urine Negative (Negative); Leukocyte Esterase Urine 1+ (Negative); Nitrite Urine Negative (Negative); Protein Urine Negative (Negative); Specific Gravity Urine 1.016 (1.000-1.030); Urobilinogen Urine Negative (Negative)
[2019-01-28] MEDS ORDERED: VANCOMYCIN HCL 1,000 MG/270 ML BAG IV STA (11:21)
[2019-01-28] MEDS ORDERED: VANCOMYCIN CONSULT ACTIVE PRN (11:21)
[2019-01-28] MEDS ORDERED: CEFEPIME 1,000 MG in SYRINGE 0 ML IV STA (11:21)
[2019-01-28] MEDS ORDERED: ALBUTEROL HFA 8 GM INHALER INH PRN (12:18)
--- NOTE | 2019-01-28 12:29 | History & Physical Report ---
Date of Service January 28, 2019 Assessment & Plan (1) Febrile illness: - Tmax = 38.2 in ER, Tachy with HR = 113 - Appears that this is viral in nature with sx starting in past 24 hrs, no specific source for infection at this time. - Will start start the patient on IV cefepime and vancomycin empirically. - WBC= 6K, ANC 5.17, not currently neutropenic however she has been in the past -will place on neutropenic precautions prophylactically. - BCx x 2 in process, follow - CXR appears to be negative - Urine negative - Flu swab negative - Follows with Dr. Ortiz for outpatient therapy, has been on regimen of Erbitux as a single agent for several cycles. Last chemotherapy was on 01/25/19. (2) Vomiting and diarrhea: -Zofran and Compazine alternating prn -Gently hydrate with NSS at 80 mL/h, encourage p.o. intake as tolerated (3) Colon cancer metastasized to lung: - Follows with Dr. Ortiz, Continue on outpatient chemotherapy regimen of Erbitux, last chemo was 01/25/19 (4) Essential hypertension: - Patient missed morning medications, HR elevated secondary to fever and infectious agent, also possibly influenced by rebound tachycardia. - Metoprolol 50 mg BID STONE BELT SANDER - will reduce in half and give a dose now. (5) GERD (gastroesophageal reflux disease): - Continue omeprazole 20 mg QAM - Pt has loperimide for diarrhea if needed. (6) Hypothyroid: -Continue levothyroxine 120 mcg (7) DVT (deep venous thrombosis): Continue on Eliquis 5 mg twice daily (8) HLD (hyperlipidemia): - Cont statin therapy (9) DVT prophylaxis: - teds, scds, continue eliquis as above. History of Present Illness Chief Complaint: Headache, generalized ill feeling Primary Care Provider: Bacilio Garcia MD This is a 68 yo F with PMHx of colon cancer with metastasis to the lung, current on chemotherapy with Erbitux, HTN, HLD, GERD, hypothyroidism, obesity with BMI of 48, hx of DVT on eliquis who presents with acute feeling of generalized malaise. Patient notes that she was in her normal state of health and feeling well yesterday, when early afternoon she started to get the chills and shakes. She admits to poor oral intake due to nausea and has vomited twice. Patient denies any diarrhea or constipation. She did not take any of her morning medications. She denies any known sick contacts. T-max = 38.2 here in the ER and is tachycardic with heart rate in 120s. Patient denies any cough, sputum pr oduction, abdominal pain. Patient's last chemotherapy was last week and went well. Allergies Allergy/AdvReac Type Severity Reaction Status Date / Time thiopental Allergy Unknown INCREASED Verified 01/28/19 09:10 BLEEDING WITH WISDOM TEETH SURG meperidine AdvReac Mild N/V Verified 01/28/19 09:10 morphine AdvReac Mild N/V Verified 01/28/19 09:10 Home Medications Home Medications Medication Instructions Recorded Confirmed Type albuterol sulfate 2 puff INHALATION Q6 PRN 08/07/18 01/28/19 History apixaban 5 mg PO BID 08/07/18 01/28/19 History ascorbic acid (vitamin C) 1 g PO QAM 08/07/18 01/28/19 History aspirin [Aspirin Childrens] 81 mg PO DAILY 08/07/18 01/28/19 History beclomethasone dipropionate 2 puff INHALATION BID 08/07/18 01/28/19 History cyanocobalamin (vitamin B-12) 1,000 mcg PO HS 08/07/18 01/28/19 History igvzpyxwhcg-xwqjceoei-peu C-Mn 1 cap PO BID 08/07/18 01/28/19 History [Glucosamine Chondroitin MaxStr] levothyroxine 125 mcg PO QAM 08/07/18 01/28/19 History metoprolol tartrate 50 mg PO BID 08/07/18 01/28/19 History multivitamin 1 tab PO DAILY 08/07/18 01/28/19 History omeprazole 20 mg PO QAM 08/07/18 01/28/19 History ondansetron HCl 8 mg PO Q8 PRN 08/07/18 01/28/19 History potassium chloride 20 meq PO DAILY 08/07/18 01/28/19 History prochlorperazine maleate 10 mg PO Q6 PRN 08/07/18 01/28/19 History sertraline 50 mg PO HS 08/07/18 01/28/19 History simvastatin 40 mg PO QPM 08/07/18 01/28/19 History loperamide 2 mg PO UD PRN #30 cap MDD MAX: 08/10/18 01/28/19 Rx 16MG (8 tabs) in 24HOURS ergocalciferol (vitamin D2) 50,000 unit PO DIRECTED 01/28/19 01/28/19 History [Vitamin D2] Past Med/Surg History Medical History Febrile illness Essential hypertension (Chronic) Vomiting and diarrhea (Acute) HLD (hyperlipidemia) (Chronic) GERD (gastroesophageal reflux disease) (Chronic) Hypothyroid (Chronic) Encounter for chemotherapy management DVT (deep venous thrombosis) (Chronic) Colon cancer metastasized to lung (Chronic 09/18/08) "Adenocarcinoma of the colon with lung metastasis diagnosed in 2007 Status post right lobectomy 07/10/2008 Status post colonoscopy and biopsy 09/18/2008 revealing the colon lesion. Status post resection. This was followed by chemotherapy. Status post left upper lobe wedge resection 08/24/2011 due to metastasis Status post stereotactic radiation therapy in 2011 Completed chemotherapy in 2014 Status post wedge resection with Dr. navarrete 2015 Status post hypo-fractionated radiation therapy in 2016 PET/CT 08/24/2017 revealing metabolic activity of the right hilum. Status post completion of radiation therapy 10/24/2017 utilizing VMAT. PET/CT May 29, 2018 persistent uptake in the right paratracheal mass and suspicious changes for progression. Plan for systemic chemotherapy with irinotecan and Erbitux" On 11/02/17 11:11 Meaghan Alves wrote "Adenocarcinoma of the colon with lung metastasis diagnosed in 2007 Status post right lobectomy 07/10/2008 Status post colonoscopy and biopsy 09/18/2008 revealing the colon lesion. Status post resection. This was followed by chemotherapy. Status post left upper lobe wedge resection 08/24/2011 due to metastasis Status post stereotactic radiation therapy in 2011 Completed chemotherapy in 2014 Status post wedge resection with Dr. navarrete 2016 Status post hypo-fractionated radiation therapy in 2016 PET/CT 08/24/2017 revealing metabolic activity of the right hilum. Status post completion of radiation therapy 10/24/2017 utilizing VMAT." On 09/13/17 09:28 Meaghan Alves wrote "Adenocarcinoma of the colon with lung metastasis diagnosed in 2007 Status post right lobectomy 07/10/2008 Status post colonoscopy and biopsy 09/18/2008 revealing the colon lesion. Status post resection. This was followed by chemotherapy. Status post left upper lobe wedge resection 08/24/2011 due to metastasis Status post stereotactic radiation therapy in 2011 Completed chemotherapy in 2014 Status post wedge resection with Dr. navarrete 2015 Status post hypo-fractionated radiation therapy in 2016 PET/CT 08/24/2017 revealing metabolic activity of the right hilum." Pulmonary embolism (Resolved) HLD (hyperlipidemia) History of radiation therapy Hx of gallstones Neutropenia Social History Preferred Language: Yoruba Communication Ability: Effective Fish Conservationist Required: No Beliefs That Will Affect Care: None Current Living Situation: Spouse Other Information That Helps Us Care for You: No Feels Safe at Home: Yes Safety Concerns: Feels Safe At This Time Smoking Status: Never smoker Hx Alcohol Use: No Hx Substance Use: No Review of Systems Constitutional: As per HPI. + Fatigue Eyes: No diplopia, no worsening or blurred vision ENT: normal hearing, no trouble swallowing Respiratory: No cough, sputum, dyspnea at rest or on exertion Cardiovascular: No chest pain, tightness or palpitations Abdomen:+ nausea, + vomiting X2, no diarrhea or constipation Musculoskeletal: No joint pain, calf pain, swelling Neurologic: No weakness, numbness/tingling, or balance problems Psychiatric: No anxiety or depression Skin: No rash or itch Physical Exam Vital Signs (Past 24 Hours): Last Vital Signs Temp 38.2 C H 01/28/19 08:30 Pulse 113 H 01/28/19 11:30 Resp 18 01/28/19 11:30 BP 128/95 01/28/19 11:30 Pulse Ox 93 01/28/19 11:30 Physical Exam: General: awake, alert, no apparent distress, morbidly obese Head: Normocephalic, atraumatic ENT: PERRL, EOMI, no pharyngeal exudate or erythema, no mucositis, mucous membranes moist Chest: Clear to auscultation, on room air with O2 sats at 95%, no adventitious breath sounds Cardiac: Sinus tach, no murmur, no JVD, normal peripheral pulses, good capillary refill Abdominal: NABS x 4 quadrants, soft, nontender to palpation, no rebound, guarding or tenderness Extremities: Normal inspection, no peripheral edema or erythema, calfs nontender to palpation Psych: Normal mood and affect Neuro: AAO x 3, strength intact bilaterally and related 5/5, no motor deficits, speech is clear, no peripheral sensory deficits Results & Data Diagnostic Findings XR chest 1V portable HISTORY: 68 years-old Female Sepsis acute sepsis COMPARISON: Chest radiograph 09/30/2018 TECHNIQUE: Portable AP view of the chest FINDINGS: Cardiomediastinal and hilar silhouettes are unchanged. Chronic postoperative changes of the right hemithorax with unchanged right hemidiaphragmatic elevation. Stable positioning of right pectoral Jzriis-p-Mnpt catheter. No pneumothorax. Left lung is generally clear. Degenerative changes of the shoulders and spine. IMPRESSION: No acute process. [facility], [place] [phone] CT Scan Report Patient: MERCEDEZ ABEL Date: 01/28/19 MR#: [id number]: [address] Acct ID:[id number]: [facility] Zip: [place] [address] Age: 68Location: ED Sex: F Room/Bed: Att Phy: Diagnosis: DIZZY, HEADACHE Mara Phy: Bacilio Garcia MDService Date: 01/28/19 Fam Phy: Interpreting Phy: Woo Duran Admit Phy: Ordering Phy: Martin Casiano M.D. cc: ~ CT head/brain wo con CLINICAL HISTORY: 68 years-old Female with rodriguez hx of lung ca. Acutely altered mental status. History of colorectal carcinoma TECHNIQUE: Multiple axial CT images of the head were obtained without contrast. A dose lowering technique was utilized adhering to the principles of ALARA. CT DOSE: 537.48 mGy.cm COMPARISON: PET CT 05/29/2018. FINDINGS: No acute intracranial hemorrhage, midline shift, intracranial mass, hydrocephalus, territorial ischemia or abnormal extra-axial collection. Age- related involutional changes, notably with bifrontal atrophy. Cerebral vascular calcifications are noted. The calvarium is intact. Partially imaged moderate mucosal thickening of the right maxillary sinus. Mastoid air cells are clear. No suspicious bone lesions. Soft tissues and orbits appear unremarkable. IMPRESSION: No acute intracranial abnormality. Code Status & VTE Plan Code Status Full code Supervising Physician Co-Signing Physician Notes Attending Attestation & Admission Note: Pt seen/examined, chart reviewed, care plan d/w JULIA Serrano. I agree w/ the florian components of her documentation. 68yo female w/ stage 4 colon ca, morbid obesity, and asthma presenting with febrile illness, vomiting, headache, body aches, chills, anorexia. All sx's started suddenly yesterday. No significant cough. PMH, PSH, allergies, meds, sochx, famhx, ros - reviewed febrile, other vitals stable gen - NAD, nontoxic, morbidly obese mouth - scattered petechaie buccal mucosa, tonsils absent heart - RRR, s1, s2 chest - port - right upper chest...clean, dry, no erythema lungs - mild end-exp wheeze b/l abd - soft, NT, ND, BS+ ext - no edema A/P: SIRS, cannot rule out early sepsis. source? symptoms seem most c/w viral process. although flu is negative it could be falsely negative. in addition to empiric abx will add tamiflu BID x 5 days in event flu PCR was falsely negative. follow cultures. hypomagnesemia - replace 4 grams IV mag sulfate. repeat level in AM. morbid obesity - BMI 49 Antonio Darden MD
[2019-01-28] MEDS ORDERED: ENOXAPARIN INJ 40 MG/0.4 ML SYR SQ SCH (12:30)
--- NOTE | 2019-01-28 13:07 | Emergency Department Note ---
Entered by Vijaya Dominguez acting as a scribe for History of Present Illness General Chief complaint: Headache Stated complaint: DIZZY, HEADACHE Time Seen by Provider: 01/28/19 08:48 Source: patient History of Present Illness Onset (ago): day(s) (yesterday ) Location: head, upper extremity and lower extremity Maximum Pain Intensity: 7 Quality: + other (headache) Associated symptoms: + cough, + fever/chills (subjective fever), + nausea/vomiting and + other (Positive lightheadedness, dizziness, pain with urination. Negative blood in her urine. ) The patient is a 68 year old female who presents to the Emergency Room with com plaints of a headache beginning yesterday. She reports she has lightheadedness, dizziness, a subjective fever, chills, a cough, nausea, body aches, vomiting, pain with urination. Pt denies blood in her urine. She has a history of colon cancer that has metastasized to her lung and her last chemo treatment was 3 days ago. Home Medications Home Medications Medication Instructions Recorded Confirmed Type albuterol sulfate 2 puff INHALATION Q6 PRN 08/07/18 01/28/19 History apixaban 5 mg PO BID 08/07/18 01/28/19 History ascorbic acid (vitamin C) 1 g PO QAM 08/07/18 01/28/19 History aspirin [Aspirin Childrens] 81 mg PO DAILY 08/07/18 01/28/19 History beclomethasone dipropionate 2 puff INHALATION BID 08/07/18 01/28/19 History cyanocobalamin (vitamin B-12) 1,000 mcg PO HS 08/07/18 01/28/19 History uoxvisdbsff-eugqxzxpe-zyp C-Mn 1 cap PO BID 08/07/18 01/28/19 History [Glucosamine Chondroitin MaxStr] levothyroxine 125 mcg PO QAM 08/07/18 01/28/19 History metoprolol tartrate 50 mg PO BID 08/07/18 01/28/19 History multivitamin 1 tab PO DAILY 08/07/18 01/28/19 History omeprazole 20 mg PO QAM 08/07/18 01/28/19 History ondansetron HCl 8 mg PO Q8 PRN 08/07/18 01/28/19 History potassium chloride 20 meq PO DAILY 08/07/18 01/28/19 History prochlorperazine maleate 10 mg PO Q6 PRN 08/07/18 01/28/19 History sertraline 50 mg PO HS 08/07/18 01/28/19 History simvastatin 40 mg PO QPM 08/07/18 01/28/19 History loperamide 2 mg PO UD PRN #30 cap MDD MAX: 08/10/18 01/28/19 Rx 16MG (8 tabs) in 24HOURS ergocalciferol (vitamin D2) 50,000 unit PO DIRECTED 01/28/19 01/28/19 History [Vitamin D2] Allergies Allergy/AdvReac Type Severity Reaction Status Date / Time thiopental Allergy Unknown INCREASED Verified 01/28/19 09:10 BLEEDING WITH WISDOM TEETH SURG meperidine AdvReac Mild N/V Verified 01/28/19 09:10 morphine AdvReac Mild N/V Verified 01/28/19 09:10 Past Med/Surg History Medical History Febrile illness Essential hypertension (Chronic) Vomiting and diarrhea (Acute) HLD (hyperlipidemia) (Chronic) GERD (gastroesophageal reflux disease) (Chronic) Hypothyroid (Chronic) Encounter for chemotherapy management DVT (deep venous thrombosis) (Chronic) Colon cancer metastasized to lung (Chronic 09/18/08) "Adenocarcinoma of the colon with lung metastasis diagnosed in 2007 Status post right lobectomy 07/10/2008 Status post colonoscopy and biopsy 09/18/2008 revealing the colon lesion. Status post resection. This was followed by chemotherapy. Status post left upper lobe wedge resection 08/24/2011 due to metastasis Status post stereotactic radiation therapy in 2011 Completed chemotherapy in 2014 Status post wedge resection with Dr. navarrete 2015 Status post hypo-fractionated radiation therapy in 2015 PET/CT 08/24/2017 revealing metabolic activity of the right hilum. Status post completion of radiation therapy 10/24/2017 utilizing VMAT. PET/CT May 29, 2018 persistent uptake in the right paratracheal mass and suspicious changes for progression. Plan for systemic chemotherapy with irinotecan and Erbitux" On 11/02/17 11:11 Meaghan Alves wrote "Adenocarcinoma of the colon with lung metastasis diagnosed in 2007 Status post right lobectomy 07/10/2008 Status post colonoscopy and biopsy 09/18/2008 revealing the colon lesion. Status post resection. This was followed by chemotherapy. Status post left upper lobe wedge resection 08/24/2011 due to metastasis Status post stereotactic radiation therapy in 2011 Completed chemotherapy in 2014 Status post wedge resection with Dr. navarrete 2015 Status post hypo-fractionated radiation therapy in 2015 PET/CT 08/24/2017 revealing metabolic activity of the right hilum. Status post completion of radiation therapy 10/24/2017 utilizing VMAT." On 09/13/17 09:28 Meaghan M Long wrote "Adenocarcinoma of the colon with lung metastasis diagnosed in 2007 Status post right lobectomy 07/10/2008 Status post colonoscopy and biopsy 09/18/2008 revealing the colon lesion. Status post resection. This was followed by chemotherapy. Status post left upper lobe wedge resection 08/24/2011 due to metastasis Status post stereotactic radiation therapy in 2011 Completed chemotherapy in 2014 Status post wedge resection with Dr. navarrete 2015 Status post hypo-fractionated radiation therapy in 2015 PET/CT 08/24/2017 revealing metabolic activity of the right hilum." Pulmonary embolism (Resolved) HLD (hyperlipidemia) History of radiation therapy Hx of gallstones Neutropenia Social History Preferred Language: [place] Beliefs That Will Affect Care: None Current Living Situation: Spouse Feels Safe at Home: Yes Smoking Status: Never smoker Hx Alcohol Use: No Hx Substance Use: No Review of Systems See HPI for pertinent positives & negatives. and A total of 10 systems reviewed and were otherwise negative Physical Exam Vital Signs Vital Signs - 24 hr 01/28/19 08:30 01/28/19 10:03 01/28/19 10:04 Temperature 38.2 C H Temperature Source Oral Sepsis Recent Fever Within 48 Hours No Sepsis New/Unexplained Change in Mental Status No Sepsis Action Taken by Nursing No Action Required Pulse Rate 115 H 114 H Pulse Rate [Apical] 118 H Pulse Rhythm Regular Pulse Rhythm [Apical] Regular Respiratory Rate 20 20 20 Respiratory Effort / Characteristics Non-Labored Spontaneous Non-Labored Spontaneous Respiratory Depth Normal Normal Respiratory Pattern Regular Regular Blood Pressure 134/87 Blood Pressure [Left Arm] 162/82 H Blood Pressure Mean 102 Blood Pressure Mean [Left Arm] 108 Blood Pressure Position Sitting Blood Pressure Position [Left Arm] Pulse Oximetry 91 93 93 Oxygen Delivery Method Room Air Room Air Room Air 01/28/19 10:30 01/28/19 11:00 01/28/19 11:30 Temperature Temperature Source Sepsis Recent Fever Within 48 Hours Sepsis New/Unexplained Change in Mental Status Sepsis Action Taken by Nursing Pulse Rate Pulse Rate [Apical] 116 H 115 H 113 H Pulse Rhythm Pulse Rhythm [Apical] Regular Regular Regular Respiratory Rate 18 19 18 Respiratory Effort / Characteristics Non-Labored Spontaneous Non-Labored Spontaneous Non-Labored Spontaneous Respiratory Depth Normal Normal Normal Respiratory Pattern Regular Regular Regular Blood Pressure Blood Pressure [Left Arm] 130/83 111/67 128/95 Blood Pressure Mean Blood Pressure Mean [Left Arm] 98 81 106 Blood Pressure Position Blood Pressure Position [Left Arm] Pulse Oximetry 94 93 93 Oxygen Delivery Method Room Air Room Air Room Air 01/28/19 12:54 01/28/19 13:15 Temperature 38.8 C H 38.6 C H Temperature Source Oral Oral Sepsis Recent Fever Within 48 Hours Sepsis New/Unexplained Change in Mental Status Sepsis Action Taken by Nursing Pulse Rate 113 H Pulse Rate [Apical] 120 H Pulse Rhythm Pulse Rhythm [Apical] Respiratory Rate 19 20 Respiratory Effort / Characteristics Non-Labored Spontaneous Respiratory Depth Normal Respiratory Pattern Regular Blood Pressure 106/73 Blood Pressure [Left Arm] 149/79 H Blood Pressure Mean Blood Pressure Mean [Left Arm] 102 Blood Pressure Position Blood Pressure Position [Left Arm] Lying Pulse Oximetry 95 95 Oxygen Delivery Method Room Air Room Air GENERAL: She is oriented to person, place, and time. She appears well-developed and well-nourished. She does not appear distressed. ____ HENT: Exam performed. Head: Normocephalic and atraumatic. Right Ear: External ear normal. No mastoid tenderness. Left Ear: External ear normal. No mastoid tenderness. Mouth/Throat: The oropharynx is clear and moist. No trismus in the jaw. No dental abscesses or uvula swelling. No oropharyngeal exudate or tonsillar abscesses. ____ EYES: Conjunctivae and EOM are normal. Pupils are equal, round, and reactive to light. Right eye exhibits no discharge. Left eye exhibits no discharge. No scleral icterus. ____ NECK: Normal range of motion. Neck supple. No JVD present. No spinous process tenderness present. No carotid bruit present. No rigidity. No tracheal deviation and normal range of motion present. No Brudzinski's sign and no Kernig's sign noted. ____ CV: Tachycardic rate, regular rhythm, normal heart sounds and intact distal pulses. There is no peripheral edema. Palpable radial pulses bue. ____ PULM/CHEST: Effort normal and breath sounds normal. No respiratory distress. No stridor. She has expiratory wheezes. She has no rales. Chest Wall: She exhibits no tenderness. ____Port in place ABD: The abdomen is soft. Bowel sounds are normal. She has no distension. No mass is present. There is no tenderness. There is no rebound, no guarding, no Lundberg's sign and no tenderness at McBurney's point. Rovsig negative MUSC/SKEL: Normal range of motion. There is no peripheral edema, tenderness or deformity. LYMPH: No cervical adenopathy. ____ NEURO: She is alert and oriented to person, place, and time. She has normal strength. No cranial nerve deficit or sensory deficit. Coordination and gait normal. GCS eye subscore is 4. GCS verbal subscore is 5. GCS motor subscore is 6. cerbellar tests wnl. ____ SKIN: Skin is warm and dry. She is not diaphoretic. ____ PSYCH: She has a normal mood and affect. Her behavior is normal. Judgment and thought content normal. ____ Course 0850: Past medical records reviewed. The patient was evaluated in room B3, and a complete history and physical examination were performed. 1113: Patient remains tachycardic. She reports she is still having chills. On repeat physical exam her lungs are clear to auscultation, no meningeal signs. No nuchal rigidity. Imaging within normal limits. Flu and urine negative. I reviewed the patient's case with Melba Oconnell PA-C [facility] Hospitalist. She r ecommends consulting oncology. 1119: I reviewed the patient's case with Dr. Ramirez, Oncology. He states the patient should be further evaluated by the hospitalist service. He and Dr. Nguyen, Oncology will be on consult. Recommends a dose of Cefepime and vancomycin. 1130: I reviewed the patient's case with Melba Oconnell PA-C [facility] Hospitalist. Dr. Darden, [facility] Hospitalist will evaluate the patient for further management. Consultations Consultation #1: I reviewed the patient's case with Melba Oconnell PA-C [facility] Hospitalist. She recommends consulting oncology. Time: :13 Consultation #2: I reviewed the patient's case with Dr. Ramirez, Oncology. He states the patient should be further evaluated by the hospitalist service. He and Dr. Nguyen, Oncology will be on consult. Recommends a dose of Cefepime. Time: : Consultation #3: I reviewed the patient's case with Melba Oconnell PA-C [facility] Hospitalist. Dr. Darden, [facility] Hospitalist will evaluate the patient for further management. Time: 11:30 Administered Medications Vancomycin HCl (Vancomycin Hcl) 1,000 mg in 270 mls @ 125 mls/hr IV NOW STA Stop: 01/28/19 13:30 Last Admin: 01/28/19 11:36 Dose: 125 mls/hr Documented by: [id number] Discontinued Medications Albuterol (Duoneb) 3 ml NEB NOW STA Stop: 01/28/19 08:59 Last Admin: 01/28/19 09:28 Dose: 3 ml Documented by: [id number] Sodium Chloride (Nss 1000ml) 1,000 mls @ 999 mls/hr IV .Q1H1M ONE Stop: 01/28/19 10:01 Last Infusion: 01/28/19 10:44 Dose: 0 mls/hr Documented by: [id number] Admin: 01/28/19 09:27 Dose: 999 mls/hr Documented by: [id number] Cefepime HCl 1,000 mg/ Syringe 11.3 mls @ 5.5 mls/min IV NOW STA Stop: 01/28/19 11:23 Last Admin: 01/28/19 11:42 Dose: 5.5 mls/min Documented by: [id number] Medical Decision Making Medical Records Attestation: I reviewed the patient's medical records. Home Medications Current Medication List: was personally reviewed by me Laboratory Data Attestation: I reviewed the patient's lab results. Result diagrams: 01/28/19 09:21 01/28/19 09:21 Lab Results 01/28/19 01/28/19 01/28/19 Range/Units 09:21 09:21 09:21 WBC 6.35 (4.8-10.8) K/uL RBC 4.27 (4.2-5.4) M/uL Hgb 13.3 (12.0-16.0) g/dL Hct 41.5 (37-47) % MCV 97.2 (80-100) fL MCH 31.1 (25-34) pg MCHC 32.0 (32-36) g/dL RDW Std Deviation 48.1 H (36.4-46.3) fL RDW Coeff of Marcell 13.6 (11.5-14.5) % Plt Count 101 L (130-400) K/uL MPV 10.1 (7.4-10.4) fL Immature Gran % (Auto) 0.2 % Neut % (Auto) 81.3 % Lymph % (Auto) 8.7 % [place] % (Auto) 9.4 % Eos % (Auto) 0.2 % Baso % (Auto) 0.2 % Immature Gran # (Auto) 0.01 (0.00-0.02) K/uL Neut # (Auto) 5.17 (1.4-6.5) K/uL Lymph # (Auto) 0.55 L (1.2-3.4) K/uL [place] # (Auto) 0.60 H (0.11-0.59) K/uL Eos # (Auto) 0.01 (0-0.5) K/uL Baso # (Auto) 0.01 (0-0.2) K/uL PT 11.3 (9.0-12.0) Seconds INR 1.1 (0.9-1.1) APTT 35.0 H (21.0-31.0) Seconds PTT Ratio 1.3 VBG pH (7.36-7.41) VBG pCO2 (38-50) mmHg VBG pO2 mmHg VBG HCO3 mmol/L VBG O2 Saturation % VBG Base Excess mEq/L Barometric Pressure mm/Hg Sodium 139 (136-145) mmol/L Potassium 3.8 (3.5-5.1) mmol/L Chloride 106 (98-107) mmol/L Carbon Dioxide 28 (21-32) mmol/L Anion Gap 5.0 (3-11) BUN 10 (7-18) mg/dl Creatinine 0.82 (0.6-1.2) mg/dl Est Cr Clr Drug Dosing 89.5 ml/min Est GFR ( Amer) 86.4 Est GFR (Non-Af Amer) 74.6 BUN/Creatinine Ratio 12.4 (10-20) Glucose 96 (70-99) mg/dl Lactate (0.4-2.0) mmol/L Calcium 7.3 L (8.5-10.1) mg/dl Total Bilirubin 0.5 (0.2-1) mg/dl AST 35 (15-37) U/L ALT 35 (12-78) U/L Alkaline Phosphatase 88 (45-117) U/L Total Protein 6.5 (6.4-8.2) gm/dl Albumin 2.9 L (3.4-5.0) gm/dl Globulin 3.6 (2.5-4.0) gm/dl Albumin/Globulin Ratio 0.8 L (0.9-2) Urine Color Urine Appearance (Clear) Urine pH (4.5-7.5) Ur Specific [place] (1.000-1.030) Urine Protein (Negative) Urine Glucose (UA) (Negative) Urine Ketones (Negative) Urine Blood (Negative) Urine Nitrite (Negative) Urine Bilirubin (Negative) Urine Urobilinogen (Negative) Ur Leukocyte Esterase (Negative) Urine WBC (Auto) (0-5) /hpf Urine RBC (Auto) (0-4) /hpf U Hyaline Cast (Auto) (0-5) /lpf U Epithel Cells (Auto) (0-5) /lpf Urine Bacteria (Auto) (Negative) Influenza Type A (PCR) (Neg) Influenza Type B (PCR) (Neg) 01/28/19 01/28/19 01/28/19 Range/Units 09:21 09:21 09:30 WBC (4.8-10.8) K/uL RBC (4.2-5.4) M/uL Hgb (12.0-16.0) g/dL Hct (37-47) % MCV (80-100) fL MCH (25-34) pg MCHC (32-36) g/dL RDW Std Deviation (36.4-46.3) fL RDW Coeff of Marcell (11.5-14.5) % Plt Count (130-400) K/uL MPV (7.4-10.4) fL Immature Gran % (Auto) % Neut % (Auto) % Lymph % (Auto) % [place] % (Auto) % Eos % (Auto) % Baso % (Auto) % Immature Gran # (Auto) (0.00-0.02) K/uL Neut # (Auto) (1.4-6.5) K/uL Lymph # (Auto) (1.2-3.4) K/uL [place] # (Auto) (0.11-0.59) K/uL Eos # (Auto) (0-0.5) K/uL Baso # (Auto) (0-0.2) K/uL PT (9.0-12.0) Seconds INR (0.9-1.1) APTT (21.0-31.0) Seconds PTT Ratio VBG pH 7.44 H (7.36-7.41) VBG pCO2 42 (38-50) mmHg VBG pO2 33 mmHg VBG HCO3 28 mmol/L VBG O2 Saturation 70.5 % VBG Base Excess 3.7 mEq/L Barometric Pressure 734.0 mm/Hg Sodium (136-145) mmol/L Potassium (3.5-5.1) mmol/L Chloride (98-107) mmol/L Carbon Dioxide (21-32) mmol/L Anion Gap (3-11) BUN (7-18) mg/dl Creatinine (0.6-1.2) mg/dl Est Cr Clr Drug Dosing ml/min Est GFR ( Amer) Est GFR (Non-Af Amer) BUN/Creatinine Ratio (10-20) Glucose (70-99) mg/dl Lactate 0.6 (0.4-2.0) mmol/L Calcium (8.5-10.1) mg/dl Total Bilirubin (0.2-1) mg/dl AST (15-37) U/L ALT (12-78) U/L Alkaline Phosphatase (45-117) U/L Total Protein (6.4-8.2) gm/dl Albumin (3.4-5.0) gm/dl Globulin (2.5-4.0) gm/dl Albumin/Globulin Ratio (0.9-2) Urine Color Urine Appearance (Clear) Urine pH (4.5-7.5) Ur Specific [place] (1.000-1.030) Urine Protein (Negative) Urine Glucose (UA) (Negative) Urine Ketones (Negative) Urine Blood (Negative) Urine Nitrite (Negative) Urine Bilirubin (Negative) Urine Urobilinogen (Negative) Ur Leukocyte Esterase (Negative) Urine WBC (Auto) (0-5) /hpf Urine RBC (Auto) (0-4) /hpf U Hyaline Cast (Auto) (0-5) /lpf U Epithel Cells (Auto) (0-5) /lpf Urine Bacteria (Auto) (Negative) Influenza Type A (PCR) Neg for Influ A (Neg) Influenza Type B (PCR) Neg for Influ B (Neg) 01/28/19 Range/Units 10:40 WBC (4.8-10.8) K/uL RBC (4.2-5.4) M/uL Hgb (12.0-16.0) g/dL Hct (37-47) % MCV (80-100) fL MCH (25-34) pg MCHC (32-36) g/dL RDW Std Deviation (36.4-46.3) fL RDW Coeff of Marcell (11.5-14.5) % Plt Count (130-400) K/uL MPV (7.4-10.4) fL Immature Gran % (Auto) % Neut % (Auto) % Lymph % (Auto) % [place] % (Auto) % Eos % (Auto) % Baso % (Auto) % Immature Gran # (Auto) (0.00-0.02) K/uL Neut # (Auto) (1.4-6.5) K/uL Lymph # (Auto) (1.2-3.4) K/uL [place] # (Auto) (0.11-0.59) K/uL Eos # (Auto) (0-0.5) K/uL Baso # (Auto) (0-0.2) K/uL PT (9.0-12.0) Seconds INR (0.9-1.1) APTT (21.0-31.0) Seconds PTT Ratio VBG pH (7.36-7.41) VBG pCO2 (38-50) mmHg VBG pO2 mmHg VBG HCO3 mmol/L VBG O2 Saturation % VBG Base Excess mEq/L Barometric Pressure mm/Hg Sodium (136-145) mmol/L Potassium (3.5-5.1) mmol/L Chloride (98-107) mmol/L Carbon Dioxide (21-32) mmol/L Anion Gap (3-11) BUN (7-18) mg/dl Creatinine (0.6-1.2) mg/dl Est Cr Clr Drug Dosing ml/min Est GFR ( Amer) Est GFR (Non-Af Amer) BUN/Creatinine Ratio (10-20) Glucose (70-99) mg/dl Lactate (0.4-2.0) mmol/L Calcium (8.5-10.1) mg/dl Total Bilirubin (0.2-1) mg/dl AST (15-37) U/L ALT (12-78) U/L Alkaline Phosphatase (45-117) U/L Total Protein (6.4-8.2) gm/dl Albumin (3.4-5.0) gm/dl Globulin (2.5-4.0) gm/dl Albumin/Globulin Ratio (0.9-2) Urine Color Yellow Urine Appearance Clear (Clear) Urine pH 8.0 H (4.5-7.5) Ur Specific [place] 1.016 (1.000-1.030) Urine Protein Negative (Negative) Urine Glucose (UA) Negative (Negative) Urine Ketones Negative (Negative) Urine Blood 1+ H (Negative) Urine Nitrite Negative (Negative) Urine Bilirubin Negative (Negative) Urine Urobilinogen Negative (Negative) Ur Leukocyte Esterase 1+ H (Negative) Urine WBC (Auto) 5-10 H (0-5) /hpf Urine RBC (Auto) 5-10 H (0-4) /hpf U Hyaline Cast (Auto) 1-5 (0-5) /lpf U Epithel Cells (Auto) 10-20 H (0-5) /lpf Urine Bacteria (Auto) Negative (Negative) Influenza Type A (PCR) (Neg) Influenza Type B (PCR) (Neg) Imaging Data Radiologist's Impression: Radiology results as stated below per my review and the radiologist's interpretation: XR chest 1V portable HISTORY: 68 years-old Female Sepsis acute sepsis COMPARISON: Chest radiograph 09/30/2018 TECHNIQUE: Portable AP view of the chest FINDINGS: Cardiomediastinal and hilar silhouettes are unchanged. Chronic postoperative changes of the right hemithorax with unchanged right hemidiaphragmatic elevation. Stable positioning of right pectoral [id number] catheter. No pneumothorax. Left lung is generally clear. Degenerative changes of the shoulders and spine. IMPRESSION: No acute process. The above report was generated using voice recognition software. It may contain grammatical, syntax or spelling errors. Electronically signed by: Vincent Duran M.D. 01/28/2019 10:[address] head/brain wo con CLINICAL HISTORY: 68 years-old Female with rodriguez hx of lung ca. Acutely altered mental status. History of colorectal carcinoma TECHNIQUE: Multiple axial CT images of the head were obtained without contrast. A dose lowering technique was utilized adhering to the principles of ALARA. CT DOSE: 537.48 mGy.cm COMPARISON: PET CT 05/29/2018. FINDINGS: No acute intracranial hemorrhage, midline shift, intracranial mass, hydrocephalus, territorial ischemia or abnormal extra-axial collection. Age- related involutional changes, notably with bifrontal atrophy. Cerebral vascular calcifications are noted. The calvarium is intact. Partially imaged moderate mucosal thickening of the right maxillary sinus. Mastoid air cells are clear. No suspicious bone lesions. Soft tissues and orbits appear unremarkable. IMPRESSION: No acute intracranial abnormality. The above report was generated using voice recognition software. It may contain grammatical, syntax or spelling errors. Electronically signed by: Vincent Duran M.D. 01/28/2019 10:05 AM Blood Pressure Blood Pressure Findings: Normal blood pressure Blood Pressure Disposition: did not require urgent referral MDM Narrative 0850: Past medical records reviewed. The patient was evaluated in room B3, and a complete history and physical examination were performed. 1113: Patient remains tachycardic. She reports she is still having chills. On repeat physical exam her lungs are clear to auscultation, no meningeal signs. No nuchal rigidity. Imaging within normal limits. Flu and urine negative. I reviewed the patient's case with Melba Oconnell PA-C [facility] Hospitalist. She recommends consulting oncology. 1119: I reviewed the patient's case with Dr. Ramirez, Oncology. He states the patient should be further evaluated by the hospitalist service. He and Dr. Nguyen, Oncology will be on consult. Recommends a dose of Cefepime and vancomycin. 1130: I reviewed the patient's case with Melba Oconnell PA-C [facility] Hospitalist. Dr. Darden, [facility] Hospitalist will evaluate the patient for further management. Impression & Plan Sepsis Discharge Plan Visit Data *Final* Discharge Date/Time: 01/28/19 12:54 Chief Complaint: Headache Stated Complaint: DIZZY, HEADACHE ED Provider: Martin Casiano Discharge Problem: Sepsis Patient Disposition: Admitted As Inpatient Discharge Instructions Interventions: ED Discharge Assessment Last Done: 01/28/19 12:54 Sepsis Evaluation Sepsis screening result: No Definite Risk Current stage of sepsis: sepsis Possible source: other Focused Exam Date exam was performed: 01/28/19 Time exam was performed: 08:40 Vital Signs Temp Pulse Pulse Resp BP BP Pulse Ox 01/28/19 13:15 38.6 C H 120 H 20 149/79 H 95 01/28/19 12:54 38.8 C H 113 H 19 106/73 95 01/28/19 11:30 113 H 18 128/95 93 01/28/19 11:00 115 H 19 111/67 93 01/28/19 10:30 116 H 18 130/83 94 01/28/19 10:04 114 H 20 93 01/28/19 10:03 118 H 20 162/82 H 93 01/28/19 08:30 38.2 C H 115 H 20 134/87 91 Respiratory exam: Present CTA bilaterally Cardiovascular exam: Present tachycardia Capillary refill: < 2 Seconds (Instant) Peripheral pulse strength: Normal Skin exam: normal turgor Discharge Problem: Sepsis Qualifiers: Sepsis type: sepsis due to unspecified organism Qualified Code(s): A41.9 - Sepsis, unspecified organism The scribe's documentation has been prepared under my direction and personally reviewed by me in its entirety. I confirm that the note above accurately reflects all work, treatment, procedures, and medical decision making performed by me.
[2019-01-28] MEDS ORDERED: SODIUM CHLORIDE 0.9% 1000ML 1,000 ML IV SCH (14:00)
[2019-01-28] MEDS: ACETAMINOPHEN 325 MG TAB PO PRN (14:15)
[2019-01-28] MEDS ORDERED: VANCOMYCIN HCL 1,750 MG in SODIUM CHLORIDE 0.9% 500 ML IV ONE (15:00)
[2019-01-28] MEDS: MAGNESIUM SULFATE / D5W 1 GM/100 ML BAG IV SCH ×4 (15:22→18:31)
[2019-01-28] MEDS: METOPROLOL TARTRATE 25 MG TAB PO SCH ×2 (15:32→20:30)
[2019-01-28] MEDS ORDERED: IBUPROFEN 800 MG TAB PO STA (15:37)
[2019-01-28] MEDS: OSELTAMIVIR PHOSPHATE 75 MG CAP PO SCH ×2 (16:33→20:30)
[2019-01-28] MEDS: LEVALBUTEROL 1.25MG/0.5ML NEB NEB SCH (19:01)
[2019-01-28] MEDS: CEFEPIME 2,000 MG in SYRINGE 7.5 ML IV SCH (19:33)
[2019-01-28] MEDS: SERTRALINE HCL 50 MG TABLET PO SCH (20:32)
[2019-01-28] MEDS: CYANOCOBALAMIN 500 MCG TABLET (VITAMIN B-12) PO SCH (20:32)
[2019-01-28] MEDS: ERGOCALCIFEROL 50,000 UNITS CAP PO SCH (20:32)
[2019-01-28] MEDS: BECLOMETHASONE DIP HFA 80 MCG 8.7G INH INH SCH (20:33)
[2019-01-28] MEDS: SIMVASTATIN 40 MG TAB PO SCH (20:33)
[2019-01-28] MEDS ORDERED: METOPROLOL TARTRATE 50 MG TAB PO SCH (21:00)
[2019-01-28] MEDS: APIXABAN 5 MG TABLET PO SCH (21:54)
[2019-01-28] MEDS: ONDANSETRON INJ 2 MG/ML 2 ML VIAL IV PRN (23:57)
[2019-01-29] MEDS: LEVALBUTEROL 1.25MG/0.5ML NEB NEB SCH ×4 (01:48→19:15)
[2019-01-29] MEDS: ACETAMINOPHEN 325 MG TAB PO PRN ×4 (04:06→23:19)
[2019-01-29] MEDS: CEFEPIME 2,000 MG in SYRINGE 7.5 ML IV SCH ×3 (04:06→19:31)
[2019-01-29] MEDS: VANCOMYCIN HCL 1,250 MG in SODIUM CHLORIDE 0.9% 250 ML IV SCH ×2 (04:12→15:53)
[2019-01-29] MEDS: LEVOTHYROXINE SODIUM 125 MCG TABLET PO SCH (06:03)
[2019-01-29 06:20] LABS: Hematocrit (blood only) 37.8 % (37-47); Hemoglobin 11.9 g/dL (12.0-16.0); Mean Corpuscular Hgb Conc 31.5 g/dL (32-36); Mean Corpuscular Volume 96.2 fL (80-100); RDW Coefficient of Variation 13.6 % (11.5-14.5); RDW Standard Deviation 47.9 fL (36.4-46.3); Red Blood Count 3.93 M/uL (4.2-5.4); White Blood Count 4.31 K/uL (4.8-10.8)
[2019-01-29 06:51] LABS: Albumin Level 2.4 gm/dl (3.4-5.0); Calcium 6.9 mg/dl (8.5-10.1); Est GFR (African American) 83.9; Est GFR (Non-African American) 72.4; Potassium 3.4 mmol/L (3.5-5.1)
[2019-01-29 06:54] LABS: Albumin Globulin Ratio 0.8 (0.9-2); Bilirubin,Total 0.4 mg/dl (0.2-1); Globulin 3.2 gm/dl (2.5-4.0); Total Protein 5.6 gm/dl (6.4-8.2)
[2019-01-29] MEDS: HEPARIN 100 UNIT/ML 5ML FLUSH FLUSH PRN ×3 (07:43→19:43)
[2019-01-29] MEDS: ONDANSETRON INJ 2 MG/ML 2 ML VIAL IV PRN (07:43)
[2019-01-29] MEDS: PANTOprazole 40 MG TAB PO SCH (07:45)
[2019-01-29] MEDS: ASPIRIN 81 MG ECTAB PO SCH (07:45)
[2019-01-29] MEDS: POTASSIUM CHLORIDE 20 MEQ TABCR PO SCH (07:45)
[2019-01-29] MEDS: ASCORBIC ACID 500 MG TAB PO SCH (07:45)
[2019-01-29] MEDS: MULTIVITAMIN TAB PO SCH (07:45)
[2019-01-29] MEDS: BECLOMETHASONE DIP HFA 80 MCG 8.7G INH INH SCH ×2 (07:46→21:11)
[2019-01-29] MEDS: METOPROLOL TARTRATE 25 MG TAB PO SCH ×2 (07:46→21:09)
[2019-01-29] MEDS: OSELTAMIVIR PHOSPHATE 75 MG CAP PO SCH ×2 (07:46→21:12)
[2019-01-29] MEDS: APIXABAN 5 MG TABLET PO SCH ×2 (07:46→21:11)
[2019-01-29 07:49] LABS: Basophils # (auto) 0.01 K/uL (0-0.2); Basophils % (auto) 0.2 %; Immature Granulocytes # (auto) 0.01 K/uL (0.00-0.02); Immature Granulocytes % (auto) 0.2 %; Lymphocytes # (auto) 0.34 K/uL (1.2-3.4); Lymphocytes % (auto) 7.9 %; Mean Platelet Volume 10.6 fL (7.4-10.4); Monocytes # (auto) 0.49 K/uL (0.11-0.59); Monocytes % (auto) 11.4 %; Neutrophils # (auto) 3.46 K/uL (1.4-6.5); Neutrophils % (auto) 80.3 %; Platelet Count 80 K/uL (130-400); Platelet Estimate Decreased (Normal)
[2019-01-29] MEDS ORDERED: POTASSIUM CHLORIDE 20 MEQ TABCR PO STA (07:50)
[2019-01-29] MEDS ORDERED: CALCIUM GLUCONATE 10% 1,000 MG in SODIUM CHLORIDE 0.9% 50 ML IV ONE (08:30)
[2019-01-29] MEDS: MAGNESIUM SULFATE / D5W 1 GM/100 ML BAG IV SCH ×2 (09:29→10:24)
--- NOTE | 2019-01-29 10:18 | Pharmacy Report ---
Pharmacy Abx Dose Short Note - Date of Service January 29, 2019 - Assessment & Plan Assessment 68 year old F receiving Vancomycin and Cefepime (not a consult) for empiric treatment Day # 2 of antimicrobial therapy. * Patient with febrile illness, immunocompromised on chemo. * On Tamiflu for influenza treatment (provider believes influenza PCR is a false negative) * No renal impairment noted, but patient is obese (BMI 48.4 kg/m2) Plan Vancomycin * Vancomycin 1250mg (~10mg/kg) IV q12 was initiated yesterday * 1 of 2 blood cultures growing Gram positive cocci (PCR shows *not* MRSA). Provider believes positive culture may be a contaminate. * Antibiotics set to continue until 01/30/19, but provider may D/C earlier. * No levels ordered at this time due to empiric indication. If Vancomycin therapy continues after 01/30/19, will need to order level at that time to assess therapy. Pharmacy will continue to follow and will adjust dose/frequency as necessary. Thank you.
[2019-01-29] MEDS: MAGNESIUM OXIDE 400 MG TAB PO SCH ×2 (10:24→21:09)
--- NOTE | 2019-01-29 11:03 | Medical Student Progress Note ---
Date of Service January 29, 2019 Assessment & Plan (1) Febrile illness: Tmax = 38.1, Tachy with HR = 128, plausible that this is apart of SIRS as she continues to fight off the infection. Appears that this is viral in nature with sx starting in past 24 hrs, no specific source for infection at this time. Currently day 2 of 3 for IV cefepime and vancomycin empirically. WBC= 4.31K, ANC 3.4, not currently neutropenic however she has been in the past - continue neutropenic precautions prophylacti valentine. BCx #1 was positive for gram + cocci. concerned about possible contamination if this was from her port or peripheral site, it was not specified. Cult 2 still pending. May need to redraw to ensure clean BCx is obtained. CXR appears to be negative Urine negative Flu swab negative- however there is a possibility that it may be a false negative. Her bloodwork today seems to support viral etiology as she is anemic, she has a neutrophilic predominance and her AST has increased [and low plt cou nt] Follows with Dr. Ortiz for outpatient therapy, has been on regimen of Erbitux as a single agent for several cycles. Last chemotherapy was on 01/25/19. (2) Vomiting and diarrhea: Zofran and Compazine alternating prn Gently hydrate with NSS at 80 mL/h, encourage p.o. intake as tolerated (3) Colon cancer metastasized to lung: Follows with Dr. Ortiz, Continue on outpatient chemotherapy regimen of Erbitux, last chemo was 01/25/19 (4) Essential hypertension: She received her medication and has remained stably normotensive, elevated HR elevated secondary to fever and infectious agent, also possibly influenced by rebound tachycardia. Metoprolol 50 mg BID INSPECTOR AIDE, however she only reveived half a dose this morning. (5) GERD (gastroesophageal reflux disease): Continue omeprazole 20 mg QAM Pt has loperimide for diarrhea if needed. (6) Hypothyroid: Continue levothyroxine 120 mcg (7) DVT (deep venous thrombosis): Continue on Eliquis 5 mg twice daily (8) HLD (hyperlipidemia): Potentially hold statin in light of increased AST, her reported abdominal pain may be indicative of gall stones, even thought there was not a positive Lundberg's sign on exam. An Abdominal U/S is scheduled. (9) DVT prophylaxis: teds, scds, continue eliquis as above. Subjective Positive blood culture for gram + clustered cocci, culture #2 is still pending, possible contamination? Day 2 of 3 on cefedipine and vancomycin, as well as day 2 on Tamaflu has continued to have intermittent febrile states, well responsive to acetaminophen- received a dose this morning remains tachycardic, per nurse had an episode of emesis this morning associated with Nausea after breakfast, received compazine Reports bowels being diarrhetic-like Denies any SOB "more than her baseline" Reports headache subsided Review of Systems All systems reviewed & are unremarkable except as noted in HPI & below Constitutional: + chills Gastrointestinal: as per Subjective / HPI, + heartburn, + nausea, + vomiting and + diarrhea/loose stools Physical Exam Vital Signs (Past 24 Hours): Last Vital Signs Temp 37.5 C 01/29/19 07:26 Pulse 108 H 01/29/19 07:26 Resp 16 01/29/19 07:26 BP 109/71 01/29/19 07:26 Pulse Ox 93 01/29/19 07:26 Constitutional: WD/WN, vitals as above + morbidly obese and comfortable Eyes: PERRL, conjunctivae normal, anicteric sclerae ENMT: external ear and nose normal, oropharynx normal Respiratory: + labored breathing, able to speak in complete sentences and + audible wheezes Auscultation: + wheezes (mild expiratory wheeze in Left Upper Lobe) Cardiovascular: Rate/Rhythm: regular rhythm and + tachycardic Heart Sounds: normal S1 and normal S2 Extremities: normal capillary refill Gastrointestinal (Abdomen): Inspection/Auscultation: normal bowel sounds and + significant pannus Percussion/Palpation: + abdomen tender (reports pain upon palpation of epigastric region), abdomen soft, + hernia (palpable scarred tissue from prior ventral hernia repair in epigastric) and normal to percussion Musculoskeletal: no cyanosis or clubbing, extremities motor strength 5/5 Head/Neck/Chest: + head abnormal to inspection, normocephalic, head atraumatic and neck supple Skin: no rashes, warm and dry Results & Data Labs CBC & Chem 7: 01/29/19 05:52 01/29/19 05:52 Labs: Short CBC 01/29/19 Range/Units 05:52 WBC 4.31 L (4.8-10.8) K/uL Hgb 11.9 L (12.0-16.0) g/dL Hct 37.8 (37-47) % Plt Count 80 L (130-400) K/uL BMP 01/29/19 05:52 Sodium 140 Potassium 3.4 L Chloride 106 Carbon Dioxide 27 BUN 10 Creatinine 0.84 Glucose 105 H Calcium 6.9 L Liver Function 01/29/19 Range/Units 05:52 Total Bilirubin 0.4 (0.2-1) mg/dl AST 69 H (15-37) U/L ALT 51 (12-78) U/L Alkaline Phosphatase 76 (45-117) U/L Albumin 2.4 L (3.4-5.0) gm/dl
[2019-01-29] MEDS: PROCHLORPERAZINE MALEATE 10 MG TAB PO PRN (11:28)
[2019-01-29] MEDS ORDERED: KETOROLAC TROMETHAMINE 15 MG/ML VIAL IV ONE (18:11)
--- NOTE | 2019-01-29 18:11 | Ultrasound Report ---
US gallbladder CLINICAL HISTORY: 68 years-old Female presenting with gallstones, vomiting, abd pain; eval for cholec yst. TECHNIQUE: Real-time grayscale and limited color Doppler ultrasound imaging of the abdomen limited to the right upper quadrant was performed. COMPARISON: CT from 12/08/2018. FINDINGS: Examination is limited by patient body habitus. Pancreas: Largely obscured due to overlying bowel gas. Liver: Hyperechogenic parenchyma with heterogeneous echotexture, likely indicating fibrosis or steato sis. The liver measures 20.8 cm in maximal sagittal dimension. Hypoechoic focus measuring 2.5 x 1.8 x 2.8 cm along the periphery of the right hepatic lobe without correlate on prior CT, possibly artifac t or focal fatty sparing. Main portal vein patent with normal directional flow. Biliary: No intrahepatic biliary ductal dilatation. Common bile duct measures up to 4 mm in diameter. Gallbladder: Gallstones. Top normal gallbladder wall thickness. No evidence of gallbladder distention or pericholecystic fluid or inflammatory change. Sonographic Lundberg's sign negative. Right kidney: Mild pelvocaliectasis. Ascites: None. Other: None. IMPRESSION: 1. Cholelithiasis without convincing evidence of cholecystitis. 2. Hepatomegaly and heterogeneous liver parenchyma suggests underlying hepatic steatosis or fibrosis . 3. Hypoechoic focus along the periphery of the right hepatic lobe may represent focal fatty sparing or may be artifactual as no abnormality was evident on the most recent contrast enhanced CT. 4. Mild right pelvocaliectasis. Mild hydronephrosis is difficult to exclude. Alternatively, this cou ld represent parapelvic cysts. Electronically signed by: Joe Botello M.D. 01/29/2019 6:10 PM
--- NOTE | 2019-01-29 19:55 | Hospitalist Progress Note ---
Date of Service January 29, 2019 Assessment & Plan (1) SIRS (systemic inflammatory response syndrome): suspected infectious process in the setting of recent antineoplastic therapy given in late December for her stage 4 colon cancer. she remains on broad-spectrum IV abx including cefepime and vancomycin. I have her on tamiflu for empiric coverage in the event flu PCR was falsely negative as much of her clinical picture could be c/w influenza. blood cultures from admission - 1 set out of 2 with GPC in clusters; we contacted the lab and unfortunately it is undetermined if the +set is from the port or periphery. during her fever spike today we obtained 2 additional sets of blood cx's inclu ding 1 set from the port. it is uncertain if the + blood culture is contamination or not. thus far -- * cxr w/o obvious pneumonia * gall bladder u/s without acute cholecystitis * urine cx negative * flu PCR negative (but see above re: tamiflu) * blood cx's as above Follow all cultures. Repeat 2-view cxr in am. If GI symptoms persist consider CT abd/pelvis. If the blood cultures nocturnist to be contamination I believe much of her clinical picture is from a viral syndrome. Could consider EBV, CMV, parvovirus titers, etc. Present on Admission?: Yes (2) Vomiting and diarrhea: Intermittent, ongoing. Also with diarrhea. Gall bladder us with gallstones but no cholecystitis. If symptoms persist consider CT abd/pelvis. If diarrhea worsens consider c. diff testing, stool cx's, etc. Treat symptoms in meantime. Present on Admission?: Yes (3) Pancytopenia: viral induced? due to recent chemotherapy? suspect it is bone marrow suppression from infectious process. repeat CBC in am. Present on Admission?: No (4) Colon cancer metastasized to lung: Followed by Dr. Ortiz, . s/p Erbitux, last chemo was 01/25/19. s/p multiple procedures on lungs for mets in the past (see PMH section of EMR for details). Present on Admission?: Yes (5) Hypomagnesemia: severe. presenting level was 1. due to vomiting/diarrhea at home? not on diuretics at home. does chronic PPI use contribute? renal wasting? s/p 4 grams of mag on hospital day #1. still low today -- place on oral mag 400 BID. also give 2 grams of IV mag today. repeat level in am. fix low K and low Ca as well. Present on Admission?: Yes (6) Hypocalcemia: even corrected calcium level is still mildly low. calcium gluconate 1gm IV x 1. repeat BMP in am. 11/2018 vitamin D level was mildly low. doubt that this is the main issue causing low calcium. Present on Admission?: Yes (7) Hypokalemia: replace repeat BMP am fix low mag and low Ca as well (8) Positive blood culture: uncertain if this is contamination or true pathogen. it is also unknown which site it came from -- port or periphery. either way she is on IV vanco. repeat blood cultures today including a set from PORT. (9) Essential hypertension: Controlled. Cont beta kenia at reduced dose as BPs have been low-normal in face of suspected infection. (10) GERD (gastroesophageal reflux disease): PPI (11) Hypothyroid: Continue levothyroxine at home dose. TSH 2 months ago -- 3. (12) DVT (deep venous thrombosis): history of. Continue on Eliquis 5 mg twice daily. watch platelet count carefully as it has been dropping last few days. (13) HLD (hyperlipidemia): - Cont statin therapy AST tish mildly today. Repeat lFTs in am. If AST/ALT rise further then hold statin. (14) Asthma: no issues at this time. continue inhaled steroid and albuterol prn. (15) Morbid obesity with BMI of 45.0-49.9, adult: BMI 49 (16) DVT prophylaxis: eliquis PT, OT evals patient's BMP shows stable BUN and Cr and she is drinking. defer on fluids for now. Subjective patient continues with intermittent fevers headache resolved myalgias improved still with fatigue interestingly she is still eating 100% of her meals following lunch today, however, she had stomach pain and nausea with 1 episode of vomiting last pm also had vomiting about 3 hours post-dinner no significant cough occasional wheeze Constitutional: + fever and + fatigue; no anorexia Ear, Nose, Mouth, Throat: no nasal congestion and no sore throat Respiratory: + dyspnea on exertion (at baseline); no cough Cardiovascular: no chest pain Gastrointestinal: + abdominal pain, + nausea, + vomiting and + constipation; no diarrhea/loose stools Physical Exam Vital Signs (Past 24 Hours): Last Vital Signs Temp 37.3 C 03/04/19 19:29 Pulse 84 01/29/19 19:15 Resp 18 01/29/19 19:15 BP 149/88 H 01/29/19 15:50 Pulse Ox 94 01/29/19 19:15 Constitutional: + ill appearing (but nontoxic) and + morbidly obese; no acute distress ENMT: Mouth: no oral mucosal abnormality (MMM today) Respiratory: normal respiratory effort Auscultation: + wheezes (hint of end-exp wheeze b/l); no crackles Cardiovascular: Rate/Rhythm: regular rhythm and + tachycardic; + abnormal rate Heart Sounds: normal S1 and normal S2; no murmur Vessels: posterior tibial pulses present and dorsalis pedis pulses present; no JVD Gastrointestinal (Abdomen): Inspection/Auscultation: normal bowel sounds; abdomen not distended Percussion/Palpation: + abdomen tender (minimal - high epigastric region) and + hernia (ventral? vs diasthesis recti); no hepatosplenomegaly Skin: port, right upper chest - clean, no erythema Psychiatric: A+Ox3, euthymic affect Results & Data Laboratory Results Laboratory Results - last 24 hr 01/28/19 01/29/19 01/29/19 09:21 05:52 05:52 WBC 4.31 L RBC 3.93 L Hgb 11.9 L Hct 37.8 MCV 96.2 MCH 30.3 MCHC 31.5 L RDW Std Deviation 47.9 H RDW Coeff of Marcell 13.6 Plt Count 80 L MPV 10.6 H Immature Gran % (Auto) 0.2 Neut % (Auto) 80.3 Lymph % (Auto) 7.9 Motley % (Auto) 11.4 Eos % (Auto) 0.0 Baso % (Auto) 0.2 Immature Gran # (Auto) 0.01 Neut # (Auto) 3.46 Lymph # (Auto) 0.34 L Motley # (Auto) 0.49 Eos # (Auto) 0.00 Baso # (Auto) 0.01 Platelet Estimate Decreased Sodium 140 Potassium 3.4 L Chloride 106 Carbon Dioxide 27 Anion Gap 7.0 BUN 10 Creatinine 0.84 Est Cr Clr Drug Dosing 88.0 Est GFR ( Amer) 83.9 Est GFR (Non-Af Amer) 72.4 BUN/Creatinine Ratio 12.0 Glucose 105 H Calcium 6.9 L Magnesium Total Bilirubin 0.4 AST 69 H ALT 51 Alkaline Phosphatase 76 Total Protein 5.6 L Albumin 2.4 L Globulin 3.2 Albumin/Globulin Ratio 0.8 L Bld Cult Staph aureus PCR Negative Blood Culture MRSA PCR Negative 01/29/19 05:52 WBC RBC Hgb Hct MCV MCH MCHC RDW Std Deviation RDW Coeff of Marcell Plt Count MPV Immature Gran % (Auto) Neut % (Auto) Lymph % (Auto) Motley % (Auto) Eos % (Auto) Baso % (Auto) Immature Gran # (Auto) Neut # (Auto) Lymph # (Auto) Motley # (Auto) Eos # (Auto) Baso # (Auto) Platelet Estimate Sodium Potassium Chloride Carbon Dioxide Anion Gap BUN Creatinine Est Cr Clr Drug Dosing Est GFR ( Amer) Est GFR (Non-Af Amer) BUN/Creatinine Ratio Glucose Calcium Magnesium 1.6 L Total Bilirubin AST ALT Alkaline Phosphatase Total Protein Albumin Globulin Albumin/Globulin Ratio Bld Cult Staph aureus PCR Blood Culture MRSA PCR (1) GERD (gastroesophageal reflux disease) Esophagitis presence: esophagitis presence not specified Qualified Code(s): K21.9 - Gastro-esophageal reflux disease without esophagitis (2) Hypothyroid Hypothyroidism type: acquired Qualified Code(s): E03.9 - Hypothyroidism, unspecified (3) DVT (deep venous thrombosis) DVT location: lower extremity Affected thrombotic vein of extremity: unspecified vein of extremity Chronicity: unspecified Laterality: unspecified laterality Qualified Code(s): I82.409 - Acute embolism and thrombosis of unspecified deep veins of unspecified lower extremity (4) HLD (hyperlipidemia) Hyperlipidemia type: mixed hyperlipidemia Qualified Code(s): E78.2 - Mixed hyperlipidemia (5) Asthma Asthma severity: mild Asthma persistence: intermittent Asthma complication type: uncomplicated Qualified Code(s): J45.20 - Mild intermittent asthma, uncomplicated
[2019-01-29] MEDS: SERTRALINE HCL 50 MG TABLET PO SCH (21:12)
[2019-01-29] MEDS: SIMVASTATIN 40 MG TAB PO SCH (21:14)
[2019-01-29] MEDS: CYANOCOBALAMIN 500 MCG TABLET (VITAMIN B-12) PO SCH (21:14)
[2019-01-30] MEDS: LEVALBUTEROL 1.25MG/0.5ML NEB NEB SCH ×2 (02:25→07:53)
[2019-01-30] MEDS: HEPARIN 100 UNIT/ML 5ML FLUSH FLUSH PRN ×2 (04:16→06:13)
[2019-01-30] MEDS: CEFEPIME 2,000 MG in SYRINGE 7.5 ML IV SCH ×3 (04:16→20:06)
[2019-01-30] MEDS: LEVOTHYROXINE SODIUM 125 MCG TABLET PO SCH (06:04)
[2019-01-30 06:28] LABS: Hematocrit (blood only) 38.7 % (37-47); Hemoglobin 12.2 g/dL (12.0-16.0); Mean Corpuscular Hgb Conc 31.5 g/dL (32-36); Mean Corpuscular Volume 96.3 fL (80-100); RDW Coefficient of Variation 13.6 % (11.5-14.5); Red Blood Count 4.02 M/uL (4.2-5.4); White Blood Count 3.27 K/uL (4.8-10.8)
[2019-01-30 06:56] LABS: Mean Platelet Volume 10.9 fL (7.4-10.4); Platelet Count 70 K/uL (130-400)
[2019-01-30 07:07] LABS: Albumin Level 2.5 gm/dl (3.4-5.0); BUN Creatinine Ratio 11.8 (10-20); Calcium 7.4 mg/dl (8.5-10.1); Creatinine Clr Calc Pharmacy 79.3 ml/min; Est GFR (African American) 74.2; Magnesium 1.5 mg/dl (1.8-2.4); Potassium 3.8 mmol/L (3.5-5.1)
[2019-01-30 07:08] LABS: Basophils # (auto) 0.01 K/uL (0-0.2); Basophils % (auto) 0.3 %; Lymphocytes # (auto) 0.33 K/uL (1.2-3.4); Lymphocytes % (auto) 10.1 %; Monocytes # (auto) 0.23 K/uL (0.11-0.59); Neutrophils % (auto) 82.6 %
[2019-01-30 07:09] LABS: Albumin Globulin Ratio 0.7 (0.9-2); Bilirubin,Total 0.3 mg/dl (0.2-1); Globulin 3.4 gm/dl (2.5-4.0); Total Protein 5.9 gm/dl (6.4-8.2)
[2019-01-30] MEDS: ONDANSETRON INJ 2 MG/ML 2 ML VIAL IV PRN ×2 (07:56→20:28)
[2019-01-30] MEDS: ACETAMINOPHEN 325 MG TAB PO PRN (07:56)
[2019-01-30] MEDS: METOPROLOL TARTRATE 25 MG TAB PO SCH ×2 (07:56→20:05)
[2019-01-30] MEDS: MULTIVITAMIN TAB PO SCH (07:56)
[2019-01-30] MEDS: ASCORBIC ACID 500 MG TAB PO SCH (07:57)
[2019-01-30] MEDS: OSELTAMIVIR PHOSPHATE 75 MG CAP PO SCH ×2 (07:57→20:02)
[2019-01-30] MEDS: BECLOMETHASONE DIP HFA 80 MCG 8.7G INH INH SCH ×2 (07:57→20:05)
[2019-01-30] MEDS: POTASSIUM CHLORIDE 20 MEQ TABCR PO SCH (07:57)
[2019-01-30] MEDS: APIXABAN 5 MG TABLET PO SCH ×2 (07:57→20:02)
[2019-01-30] MEDS: MAGNESIUM OXIDE 400 MG TAB PO SCH ×2 (07:57→20:04)
[2019-01-30] MEDS: PANTOprazole 40 MG TAB PO SCH (07:57)
[2019-01-30] MEDS: ASPIRIN 81 MG ECTAB PO SCH (07:57)
--- NOTE | 2019-01-30 08:57 | XRay Report ---
XR chest 2V routine HISTORY: fever, wheeze; eval for developing pneumonia COMPARISON: Chest 01/28/2019. FINDINGS: Right jugular Port-A-Cath terminates at the expected location of the superior cava shoulder junction. This remains unchanged. Stable volume loss and right perihilar density within the right he mithorax. No pneumothorax. The heart is normal in size. The left lung is generally clear. IMPRESSION: No significant change compared to the prior study. No acute process. Stable appearance to the right h emithorax. Electronically signed by: Norberto Pandya M.D. 01/30/2019 8:56 AM
[2019-01-30] MEDS ORDERED: VANCOMYCIN CONSULT ACTIVE PRN (10:42)
[2019-01-30] MEDS: VANCOMYCIN HCL 1,250 MG in SODIUM CHLORIDE 0.9% 250 ML IV SCH ×2 (12:11→23:30)
[2019-01-30] MEDS: NSS + 20MEQ KCL 20 MEQ/1,000 ML BAG IV SCH ×2 (12:11→21:58)
[2019-01-30] MEDS: MAGNESIUM SULFATE / D5W 1 GM/100 ML BAG IV SCH ×2 (12:11→14:24)
[2019-01-30] MEDS: PROCHLORPERAZINE MALEATE 10 MG TAB PO PRN (12:16)
--- NOTE | 2019-01-30 13:15 | Pharmacy Report ---
Pharmacy Abx Dose Short Note - Date of Service January 30, 2019 - Assessment & Plan Assessment 68 year old F with suspected infectious process of unknown source (possible port infection vs. influenza - despite negative flu PCR) * Recent antineoplastic therapy given in late December for her stage 4 colon cancer * 1/2 BC growing CONS. It is unclear if this culture was drawn from a peripheral site vs. the port, therefore repeat BC were ordered (1 from each site) * Patient initially ordered vancomycin, cefepime, and tamiflu. Vancomycin order discontinued after 48 hours (ordered as empiric). Order resumed this AM. Plan Vancomycin * Resume vancomycin 1250 mg IV every 12 hours * last dose given 01/29 @1600 * Goal trough level: 15 - 20 mcg/mL * Trough level ordered for 01/31 @1030 Pharmacy will continue to follow and will adjust dose/frequency as necessary. Thank you.
[2019-01-30] MEDS: LEVALBUTEROL HCL 1.25 MG/3 ML NEB NEB SCH ×2 (13:51→19:07)
[2019-01-30] MEDS ORDERED: ACETAMINOPHEN 500 MG TAB ONE (19:59)
[2019-01-30] MEDS: CYANOCOBALAMIN 500 MCG TABLET (VITAMIN B-12) PO SCH (20:04)
[2019-01-30] MEDS: SERTRALINE HCL 50 MG TABLET PO SCH (20:06)
[2019-01-30] MEDS: SIMVASTATIN 40 MG TAB PO SCH (20:07)
[2019-01-30 21:07] LABS: Appearance Urine Cloudy (Clear); Bacteria Urine Automated Negative (Negative); Bilirubin Urine Negative (Negative); Blood Urine 1+ (Negative); Color Urine Yellow; Epithelial Cell Urine Auto >30 /lpf (0-5); Glucose Urine UA Negative (Negative); Ketones Urine Negative (Negative); Leukocyte Esterase Urine Trace (Negative); Nitrite Urine Negative (Negative); Protein Urine 1+ (Negative); Urobilinogen Urine Negative (Negative)
[2019-01-30 21:30] LABS: Amorphous Sediment Urine Present (None Prsent)
[2019-01-31] MEDS: LEVALBUTEROL HCL 1.25 MG/3 ML NEB NEB SCH ×4 (02:22→18:55)
[2019-01-31] MEDS: CEFEPIME 2,000 MG in SYRINGE 7.5 ML IV SCH ×3 (03:49→20:30)
[2019-01-31] MEDS: NSS + 20MEQ KCL 20 MEQ/1,000 ML BAG IV SCH ×2 (06:14→15:49)
[2019-01-31] MEDS: LEVOTHYROXINE SODIUM 125 MCG TABLET PO SCH (06:15)
[2019-01-31 06:23] LABS: Hematocrit (blood only) 40.1 % (37-47); Hemoglobin 12.6 g/dL (12.0-16.0); Mean Corpuscular Hgb Conc 31.4 g/dL (32-36); Mean Corpuscular Volume 95.5 fL (80-100); RDW Coefficient of Variation 13.6 % (11.5-14.5); RDW Standard Deviation 47.2 fL (36.4-46.3); White Blood Count 2.29 K/uL (4.8-10.8)
[2019-01-31 06:28] LABS: Mean Platelet Volume 10.6 fL (7.4-10.4); Platelet Count 59 K/uL (130-400)
[2019-01-31 06:58] LABS: Albumin Level 2.4 gm/dl (3.4-5.0); BUN Creatinine Ratio 8.9 (10-20); Calcium 7.1 mg/dl (8.5-10.1); Creatinine Clr Calc Pharmacy 79.8 ml/min; Est GFR (African American) 74.2
[2019-01-31 07:00] LABS: Albumin Globulin Ratio 0.6 (0.9-2); Bilirubin,Total 0.3 mg/dl (0.2-1); Globulin 3.7 gm/dl (2.5-4.0); Total Protein 6.1 gm/dl (6.4-8.2)
[2019-01-31 07:16] LABS: Lymphocytes # (auto) 0.33 K/uL (1.2-3.4); Lymphocytes % (auto) 14.4 %; Monocytes # (auto) 0.23 K/uL (0.11-0.59); Neutrophils # (auto) 1.73 K/uL (1.4-6.5); Neutrophils % (auto) 75.6 %
[2019-01-31] MEDS: ONDANSETRON INJ 2 MG/ML 2 ML VIAL IV PRN ×2 (07:44→17:52)
--- NOTE | 2019-01-31 08:00 | Hospitalist Progress Note ---
Date of Service January 31, 2019 Assessment & Plan (1) SIRS (systemic inflammatory response syndrome): Suspected infectious process in the setting of recent antineoplastic therapy given in late December for her stage 4 colon cancer. she remains on broad-spectrum IV abx including cefepime and vancomycin. -Continue Tamiflu for empiric coverage in the event flu PCR was falsely negative as much of her clinical picture could be c/w influenza, however with bacteremia as below. blood cultures from admission - 1 set out of 2 with 2 species of coag negative staph; we contacted the lab and unfortunately it is undetermined if the +set is from the port or periphery. Continues to spike fevers Repeat blood cultures-no growth to date thus far -- * cxr w/o obvious pneumonia and repeat chest x-ray again no obvious pneumonia * gall bladder u/s without acute cholecystitis * urine cx negative * flu PCR negative (but see above re: tamiflu) * blood cx's as above Follow all cultures. If GI symptoms persist consider CT abd/pelvis. However, no abdominal symptoms today except for dysuria -Check UA-cefepime should be adequate coverage for this if does have a UTI -Consider infectious disease consultation If the blood cultures machine turner to be contamination I believe much of her clinical picture is from a viral syndrome. Could consider EBV, CMV, parvovirus titers, etc. (2) Vomiting and diarrhea: Intermittent, improved today Also with diarrhea but only 2-3 loose stools daily Gall bladder us with gallstones but no cholecystitis. If symptoms persist consider CT abd/pelvis. If diarrhea worsens consider c. diff testing, stool cx's, etc. Treat symptoms in meantime. (3) Pancytopenia: Worsening today, platelets down to 70, WBC down to 3.2, hemoglobin stable at 12.2 Receive chemotherapy in 01/25-unclear if this chemo would drop her counts? viral induced? due to recent chemotherapy? suspect it is bone marrow suppression from infectious process. repeat CBC in am. (4) Colon cancer metastasized to lung: Followed by Dr. Ortiz, . s/p Erbitux, last chemo was 01/25/19. s/p multiple procedures on lungs for mets in the past (see PMH section of EMR for details). (5) Hypomagnesemia: severe on admission with presenting level being 1.0 due to vomiting/diarrhea at home? not on diuretics at home. does chronic PPI use contribute? renal wasting? s/p 4 grams of mag on hospital day #1. still low today ---continue on oral mag 400 BID. also give 2 grams of IV mag today. repeat level in am. fixed low K and low Ca as well. (6) Hypocalcemia: even corrected calcium level is still mildly low. calcium gluconate 1gm IV x 1 was given previously repeat BMP in am. 11/2018 vitamin D level was mildly low. doubt that this is the main issue causing low calcium. (7) Hypokalemia: Replaced, now normalized (8) Positive blood culture: uncertain if this is contamination or true pathogen. it is also unknown which site it came from -- port or periphery. either way she is on IV vanco. -Following repeat cultures (9) Essential hypertension: Controlled. Cont beta kenia at reduced dose as BPs have been low-normal in face of suspected infection. -Has been having sinus tachycardia proven by ECG with rates in the 130s likely secondary to fever, dehydration, as well as reducing beta-kenia dose -Consider increasing metoprolol back up -Started IV fluids today -Treat fevers (10) GERD (gastroesophageal reflux disease): PPI (11) Hypothyroid: Continue levothyroxine at home dose. TSH 2 months ago -- 3. (12) DVT (deep venous thrombosis): history of. Continue on Eliquis 5 mg twice daily. watch platelet count carefully as it has been dropping last few days. (13) HLD (hyperlipidemia): - Cont statin therapy AST again tish mildly today. Follow LFTs If AST/ALT rise further then hold statin. (14) Asthma: no issues at this time. continue inhaled steroid and albuterol prn. (15) Morbid obesity with BMI of 45.0-49.9, adult: BMI 49 (16) DVT prophylaxis: eliquis PT, OT evals Disposition-remain hospitalized until fevers improve and following repeat blood cultures Subjective Patient continues to spike fevers. She says she feels poorly. Not much appetite today. Is having a lot of dysuria that is worsening since admission., No abdominal pain. No cough Review of Systems All systems reviewed & are unremarkable except as noted in HPI & below Physical Exam Vital Signs (Past 24 Hours): Last Vital Signs Temp 38.8 C H 01/31/19 07:25 Pulse 103 H 03/06/19 07:25 Resp 20 01/31/19 07:25 BP 141/84 H 01/31/19 07:25 Pulse Ox 93 01/31/19 07:25 Constitutional: + ill appearing (but nontoxic) and + morbidly obese; no acute distress ENMT: Mouth: no oral mucosal abnormality (MMM today) Respiratory: normal respiratory effort Auscultation: + wheezes (hint of end-exp wheeze b/l); no crackles Cardiovascular: Rate/Rhythm: regular rhythm and + tachycardic; + abnormal rate Heart Sounds: normal S1 and normal S2; no murmur Vessels: posterior tibial pulses present and dorsalis pedis pulses present; no JVD Gastrointestinal (Abdomen): normal bowel sounds, soft, nontender, no hepatosplenomegaly Psychiatric: A+Ox3, euthymic affect Results & Data Laboratory Results 01/31/19 01/31/19 01/30/19 Range/Units 06:06 06:06 20:20 WBC 2.29 L (4.8-10.8) K/uL RBC 4.20 (4.2-5.4) M/uL Hgb 12.6 (12.0-16.0) g/dL Hct 40.1 (37-47) % MCV 95.5 (80-100) fL MCH 30.0 (25-34) pg MCHC 31.4 L (32-36) g/dL RDW Std Deviation 47.2 H (36.4-46.3) fL RDW Coeff of Marcell 13.6 (11.5-14.5) % Plt Count 59 L (130-400) K/uL MPV 10.6 H (7.4-10.4) fL Immature Gran % (Auto) 0.0 % Neut % (Auto) 75.6 % Lymph % (Auto) 14.4 % [facility] % (Auto) 10.0 % Eos % (Auto) 0.0 % Baso % (Auto) 0.0 % Immature Gran # (Auto) 0.00 (0.00-0.02) K/uL Neut # (Auto) 1.73 (1.4-6.5) K/uL Lymph # (Auto) 0.33 L (1.2-3.4) K/uL [facility] # (Auto) 0.23 (0.11-0.59) K/uL Eos # (Auto) 0.00 (0-0.5) K/uL Baso # (Auto) 0.00 (0-0.2) K/uL Sodium 137 (136-145) mmol/L Potassium 4.0 (3.5-5.1) mmol/L Chloride 108 H (98-107) mmol/L Carbon Dioxide 25 (21-32) mmol/L Anion Gap 4.0 (3-11) BUN 8 (7-18) mg/dl Creatinine 0.93 (0.6-1.2) mg/dl Est Cr Clr Drug Dosing 79.8 ml/min Est GFR ( Amer) 74.2 Est GFR (Non-Af Amer) 64.0 BUN/Creatinine Ratio 8.9 L (10-20) Glucose 93 (70-99) mg/dl Calcium 7.1 L (8.5-10.1) mg/dl Total Bilirubin 0.3 (0.2-1) mg/dl AST 374 H (15-37) U/L ALT 198 H (12-78) U/L Alkaline Phosphatase 88 (45-117) U/L Total Protein 6.1 L (6.4-8.2) gm/dl Albumin 2.4 L (3.4-5.0) gm/dl Globulin 3.7 (2.5-4.0) gm/dl Albumin/Globulin Ratio 0.6 L (0.9-2) Urine Color Yellow Urine Appearance Cloudy H (Clear) Urine pH 5.0 (4.5-7.5) Ur Specific [place] 1.020 (1.000-1.030) Urine Protein 1+ H (Negative) Urine Glucose (UA) Negative (Negative) Urine Ketones Negative (Negative) Urine Blood 1+ H (Negative) Urine Nitrite Negative (Negative) Urine Bilirubin Negative (Negative) Urine Urobilinogen Negative (Negative) Ur Leukocyte Esterase Trace H (Negative) Urine WBC (Auto) 10-30 H (0-5) /hpf Urine RBC (Auto) 5-10 H (0-4) /hpf U Hyaline Cast (Auto) 5-10 H (0-5) /lpf U Epithel Cells (Auto) >30 H (0-5) /lpf Urine Bacteria (Auto) Negative (Negative) Amorphous Sediment Present H (None Prsent) Granular Casts 1-5 H (0) /lpf Urine Yeast Not Reportable Bld Cult Staph aureus PCR (Negative) Blood Culture MRSA PCR (Negative) 01/29/19 Range/Units 19:05 WBC (4.8-10.8) K/uL RBC (4.2-5.4) M/uL Hgb (12.0-16.0) g/dL Hct (37-47) % MCV (80-100) fL MCH (25-34) pg MCHC (32-36) g/dL RDW Std Deviation (36.4-46.3) fL RDW Coeff of Marcell (11.5-14.5) % Plt Count (130-400) K/uL MPV (7.4-10.4) fL Immature Gran % (Auto) % Neut % (Auto) % Lymph % (Auto) % [facility] % (Auto) % Eos % (Auto) % Baso % (Auto) % Immature Gran # (Auto) (0.00-0.02) K/uL Neut # (Auto) (1.4-6.5) K/uL Lymph # (Auto) (1.2-3.4) K/uL [facility] # (Auto) (0.11-0.59) K/uL Eos # (Auto) (0-0.5) K/uL Baso # (Auto) (0-0.2) K/uL Sodium (136-145) mmol/L Potassium (3.5-5.1) mmol/L Chloride (98-107) mmol/L Carbon Dioxide (21-32) mmol/L Anion Gap (3-11) BUN (7-18) mg/dl Creatinine (0.6-1.2) mg/dl Est Cr Clr Drug Dosing ml/min Est GFR ( Amer) Est GFR (Non-Af Amer) BUN/Creatinine Ratio (10-20) Glucose (70-99) mg/dl Calcium (8.5-10.1) mg/dl Total Bilirubin (0.2-1) mg/dl AST (15-37) U/L ALT (12-78) U/L Alkaline Phosphatase (45-117) U/L Total Protein (6.4-8.2) gm/dl Albumin (3.4-5.0) gm/dl Globulin (2.5-4.0) gm/dl Albumin/Globulin Ratio (0.9-2) Urine Color Urine Appearance (Clear) Urine pH (4.5-7.5) Ur Specific [place] (1.000-1.030) Urine Protein (Negative) Urine Glucose (UA) (Negative) Urine Ketones (Negative) Urine Blood (Negative) Urine Nitrite (Negative) Urine Bilirubin (Negative) Urine Urobilinogen (Negative) Ur Leukocyte Esterase (Negative) Urine WBC (Auto) (0-5) /hpf Urine RBC (Auto) (0-4) /hpf U Hyaline Cast (Auto) (0-5) /lpf U Epithel Cells (Auto) (0-5) /lpf Urine Bacteria (Auto) (Negative) Amorphous Sediment (None Prsent) Granular Casts (0) /lpf Urine Yeast Bld Cult Staph aureus PCR Negative (Negative) Blood Culture MRSA PCR Negative (Negative) Blood cultures with coag negative staph not Lugdenensis x2 Diagnostic Findings Chest x-ray image personally reviewed by me and agree with the following report: XR chest 2V routine HISTORY: fever, wheeze; eval for developing pneumonia COMPARISON: Chest 01/28/2019. FINDINGS: Right jugular Port-A-Cath terminates at the expected location of the superior cava shoulder junction. This remains unchanged. Stable volume loss and right perihilar density within the right hemithorax. No pneumothorax. The heart is normal in size. The left lung is generally clear. IMPRESSION: No significant change compared to the prior study. No acute process. Stable appearance to the right hemithorax. (1) GERD (gastroesophageal reflux disease) Esophagitis presence: esophagitis presence not specified Qualified Code(s): K21.9 - Gastro-esophageal reflux disease without esophagitis (2) Hypothyroid Hypothyroidism type: acquired Qualified Code(s): E03.9 - Hypothyroidism, unspecified (3) DVT (deep venous thrombosis) DVT location: lower extremity Affected thrombotic vein of extremity: unspecified vein of extremity Chronicity: unspecified Laterality: unspecified laterality Qualified Code(s): I82.409 - Acute embolism and thrombosis of unspecified deep veins of unspecified lower extremity (4) HLD (hyperlipidemia) Hyperlipidemia type: mixed hyperlipidemia Qualified Code(s): E78.2 - Mixed hyperlipidemia (5) Asthma Asthma severity: mild Asthma persistence: intermittent Asthma complication type: uncomplicated Qualified Code(s): J45.20 - Mild intermittent asthma, uncomplicated
[2019-01-31] MEDS: OSELTAMIVIR PHOSPHATE 75 MG CAP PO SCH ×2 (08:39→20:33)
[2019-01-31] MEDS: MAGNESIUM OXIDE 400 MG TAB PO SCH ×2 (08:39→20:37)
[2019-01-31] MEDS: POTASSIUM CHLORIDE 20 MEQ TABCR PO SCH (08:40)
[2019-01-31] MEDS: APIXABAN 5 MG TABLET PO SCH ×2 (08:40→20:35)
[2019-01-31] MEDS: ASPIRIN 81 MG ECTAB PO SCH (08:41)
[2019-01-31] MEDS: ASCORBIC ACID 500 MG TAB PO SCH (08:41)
[2019-01-31] MEDS: PANTOprazole 40 MG TAB PO SCH (08:42)
[2019-01-31] MEDS: MULTIVITAMIN TAB PO SCH (08:42)
[2019-01-31] MEDS: METOPROLOL TARTRATE 25 MG TAB PO SCH ×2 (08:53→20:35)
[2019-01-31] MEDS: ACETAMINOPHEN 500 MG TAB PO PRN ×2 (08:59→19:28)
[2019-01-31] MEDS: BECLOMETHASONE DIP HFA 80 MCG 8.7G INH INH SCH ×2 (09:01→20:34)
[2019-01-31] MEDS ORDERED: VANCOMYCIN TROUGH ONE (10:30)
--- NOTE | 2019-01-31 10:41 | Infectious Disease Consult ---
Date of Consultation January 31, 2019 Assessment & Plan (1) Coagulase negative Staphylococcus bacteremia: 68-year-old female with metastatic colon cancer now with fever with coagulase-negative staph bacteremia in the setting of indwelling a port. Certainly infected a port likely this because of recent fever, and would continue patient on vancomycin with vancomycin lock therapy, and would recommend discontinuation of cefepime. Will likely need at least 2 weeks of IV antibiotics. If fever continues, would consider repeating abdominal CT scan. Will follow. History of Present Illness Reason for Consultation: Bacteremia Attending Physician: Farzaneh Kinney MD History of Present Illness 68-year-old female with known history of metastatic colon cancer with lung metastases, on chemotherapy, as well as hypertension, hyperlipidemia, and hypothyroidism, who was well until 1-2 days prior to admission when she had ac stebbins onset of fever, chills, severe headache, with worsening abdominal pain with nausea and vomiting. Was admitted for further management, workup thus far has shown 2 different sets of blood cultures positive for what appears to be coagulase-negative staph. Headache is slightly improved since admission, still with intermittent fever and abdominal pain. Chest x-ray without evidence of pneumonia. Gallbladder ultrasound without evidence of cholecystitis. Patient has indwelling a port, now receiving vancomycin via. vancomycin lock as well as cefepime. Allergies Allergy/AdvReac Type Severity Reaction Status Date / Time thiopental Allergy Unknown INCREASED Verified 01/28/19 09:10 BLEEDING WITH WISDOM TEETH SURG meperidine AdvReac Mild N/V Verified 01/28/19 09:10 morphine AdvReac Mild N/V Verified 01/28/19 09:10 Home Medications Home Medications Medication Instructions Recorded Confirmed Type albuterol sulfate 2 puff INHALATION Q6 PRN 08/07/18 01/28/19 History apixaban 5 mg PO BID 08/07/18 01/28/19 History ascorbic acid (vitamin C) 1 g PO QAM 08/07/18 01/28/19 History aspirin [Aspirin Childrens] 81 mg PO DAILY 08/07/18 01/28/19 History beclomethasone dipropionate 2 puff INHALATION BID 08/07/18 01/28/19 History cyanocobalamin (vitamin B-12) 1,000 mcg PO HS 08/07/18 01/28/19 History azjhrbynvrb-qldxiybkr-zln C-Mn 1 cap PO BID 08/07/18 01/28/19 History [Glucosamine Chondroitin MaxStr] levothyroxine 125 mcg PO QAM 08/07/18 01/28/19 History metoprolol tartrate 50 mg PO BID 08/07/18 01/28/19 History multivitamin 1 tab PO DAILY 08/07/18 01/28/19 History omeprazole 20 mg PO QAM 08/07/18 01/28/19 History ondansetron HCl 8 mg PO Q8 PRN 08/07/18 01/28/19 History potassium chloride 20 meq PO DAILY 08/07/18 01/28/19 History prochlorperazine maleate 10 mg PO Q6 PRN 08/07/18 01/28/19 History sertraline 50 mg PO HS 08/07/18 01/28/19 History simvastatin 40 mg PO QPM 08/07/18 01/28/19 History loperamide 2 mg PO UD PRN #30 cap MDD MAX: 08/10/18 01/28/19 Rx 16MG (8 tabs) in 24HOURS ergocalciferol (vitamin D2) 50,000 unit PO DIRECTED 01/28/19 01/28/19 History [Vitamin D2] Patient History Medical History Febrile illness Essential hypertension (Chronic) Vomiting and diarrhea (Acute) HLD (hyperlipidemia) (Chronic) GERD (gastroesophageal reflux disease) (Chronic) Hypothyroid (Chronic) Encounter for chemotherapy management DVT (deep venous thrombosis) (Chronic) Colon cancer metastasized to lung (Chronic 09/18/08) "Adenocarcinoma of the colon with lung metastasis diagnosed in 2007 Status post right lobectomy 07/10/2008 Status post colonoscopy and biopsy 09/18/2008 revealing the colon lesion. Status post resection. This was followed by chemotherapy. Status post left upper lobe wedge resection 08/24/2011 due to metastasis Status post stereotactic radiation therapy in 2011 Completed chemotherapy in 2014 Status post wedge resection with Dr. navarrete 2015 Status post hypo-fractionated radiation therapy in 2015 PET/CT 08/24/2017 revealing metabolic activity of the right hilum. Status post completion of radiation therapy 10/24/2017 utilizing VMAT. PET/CT May 29, 2018 persistent uptake in the right paratracheal mass and suspicious changes for progression. Plan for systemic chemotherapy with irinotecan and Erbitux" On 11/02/17 11:11 Meaghan Alves wrote "Adenocarcinoma of the colon with lung metastasis diagnosed in 2007 Status post right lobectomy 07/10/2008 Status post colonoscopy and biopsy 09/18/2008 revealing the colon lesion. Status post resection. This was followed by chemotherapy. Status post left upper lobe wedge resection 08/24/2011 due to metastasis Status post stereotactic radiation therapy in 2011 Completed chemotherapy in 2014 Status post wedge resection with Dr. navarrete 2015 Status post hypo-fractionated radiation therapy in 2016 PET/CT 08/24/2017 revealing metabolic activity of the right hilum. Status post completion of radiation therapy 10/24/2017 utilizing VMAT." On 09/13/17 09:28 Meaghan Alves wrote "Adenocarcinoma of the colon with lung metastasis diagnosed in 2007 Status post right lobectomy 07/10/2008 Status post colonoscopy and biopsy 09/18/2008 revealing the colon lesion. Status post resection. This was followed by chemotherapy. Status post left upper lobe wedge resection 08/24/2011 due to metastasis Status post stereotactic radiation therapy in 2011 Completed chemotherapy in 2014 Status post wedge resection with Dr. navarrete 2015 Status post hypo-fractionated radiation therapy in 2016 PET/CT 08/24/2017 revealing metabolic activity of the right hilum." Pulmonary embolism (Resolved) HLD (hyperlipidemia) History of radiation therapy Hx of gallstones Neutropenia Family History Other Family history non-contributory Social History Communication Ability: Effective Beliefs That Will Affect Care: None Current Living Situation: Spouse Feels Safe at Home: Yes Smoking Status: Never smoker Hx Alcohol Use: No Hx Substance Use: No Review of Systems All systems were reviewed and are negative except as per HPI Physical Exam Vital Signs (Past 24 Hours): Last Vital Signs Temp 38.5 C H 01/31/19 10:02 Pulse 101 H 01/31/19 08:03 Resp 18 01/31/19 08:03 BP 141/84 H 01/31/19 07:25 Pulse Ox 90 01/31/19 08:03 Constitutional: WD/WN, vitals as above + morbidly obese and comfortable; no acute distress Eyes: PERRL, conjunctivae normal, anicteric sclerae ENMT: external ear and nose normal, oropharynx normal Neck: trachea midline, no thyromegaly neck nontender Respiratory: normal respiratory effort, lungs clear to auscultation normal percussion; does not use accessory muscles Cardiovascular: Rate/Rhythm: regular rate and regular rhythm Heart Sounds: normal S1 and normal S2; no gallop, no murmur and no cardiac rub Vessels: normal peripheral pulses; no JVD Gastrointestinal (Abdomen): Inspection/Auscultation: abdomen normal to inspection and normal bowel sounds Percussion/Palpation: + abdomen tender; no hepatosplenomegaly and no abdominal mass Musculoskeletal: no cyanosis or clubbing, extremities motor strength 5/5 Spine: thoracic spine normal to inspection and lumbar spine normal to inspection; no cervical spinal tenderness Skin: no rashes, warm and dry normal turgor; no lesions A port site without obvious infection Neurologic: patellar DTR's 2+ bilat, sensation intact no focal motor deficits Psychiatric: A+Ox3, euthymic affect Orientation: cooperative Lymphatic: no cervical or axillary lymphadenopathy no inguinal lymphadenopathy Results & Data Laboratory Results Short CBC 01/31/19 Range/Units 06:06 WBC 2.29 L (4.8-10.8) K/uL Hgb 12.6 (12.0-16.0) g/dL Hct 40.1 (37-47) % Plt Count 59 L (130-400) K/uL BMP 01/31/19 06:06 Sodium 137 Potassium 4.0 Chloride 108 H Carbon Dioxide 25 BUN 8 Creatinine 0.93 Glucose 93 Calcium 7.1 L Liver Function 01/31/19 Range/Units 06:06 Total Bilirubin 0.3 (0.2-1) mg/dl AST 374 H (15-37) U/L ALT 198 H (12-78) U/L Alkaline Phosphatase 88 (45-117) U/L Albumin 2.4 L (3.4-5.0) gm/dl Urine 01/30/19 Range/Units 20:20 Urine Color Yellow Urine Appearance Cloudy H (Clear) Urine pH 5.0 (4.5-7.5) Ur Specific [place] 1.020 (1.000-1.030) Urine Protein 1+ H (Negative) Urine Glucose (UA) Negative (Negative) Diagnostic Findings Microbiology 01/29/19 19:05 Blood Blood Culture - Preliminary Gram positive cocci 01/29/19 18:42 Blood Blood Culture - Preliminary No growth to date. 01/28/19 09:21 Blood Blood Culture - Preliminary No growth to date. 01/28/19 09:31 Blood Blood Culture - Preliminary Coag neg staph not lugdunensis Coag neg staph not lugdunensis#2 01/28/19 10:40 Urine,Clean Catch Urine Culture - Final More than three types of organisms present, all low counts mixed probable skin liliya. No further identifications or sensitivities to follow. XR chest 2V routine HISTORY: fever, wheeze; eval for developing pneumonia COMPARISON: Chest 01/28/2019. FINDINGS: Right jugular Port-A-Cath terminates at the expected location of the superior cava shoulder junction. This remains unchanged. Stable volume loss and right perihilar density within the right hemithorax. No pneumothorax. The heart is normal in size. The left lung is generally clear. IMPRESSION: No significant change compared to the prior study. No acute process. Stable appearance to the right hemithorax. Electronically signed by: Norberto Pandya M.D. 01/30/2019 8:56 AM
--- NOTE | 2019-01-31 10:41 | Medical Student Progress Note ---
Date of Service January 31, 2019 Assessment & Plan (1) SIRS (systemic inflammatory response syndrome): Suspected infectious process in the setting of current chemotheapy for her stage 4 colon cancer. she remains on broad-spectrum IV abx including cefepime and vancomycin. Continue Tamiflu for empiric coverage in the event flu PCR was falsely negative as much of her clinical picture could be c/w influenza, however with bacteremia as below. blood cultures from admission - 1 set out of 2 with 2 species of coag negative staph; we contacted the lab and unfortunately it is undetermined if the +set is from the port or periphery. Continues to spike fevers Repeat blood cultures- sample from port tested positive for gram pos liliya, peripheral sample was negative. thus far -- * original cxr and repeat chest x-ray again no obvious pneumonia * gall bladder u/s positive for cholelithiasis without acute cholecystitis * urine cx negative * flu PCR negative (but see above re: tamiflu) * blood cx's as above Follow all cultures. Persistent GI Sx--consider abd/pelvis U/S and possible CT if indicated, stool cultures to test if diarrhea is caused by C. diff or other enterococcal bug UA show UTI not likely Infectious disease consulted If the blood cultures did not rubber turner to be contaminated, However, she may still have a viral syndrome inlight of her persistent transamanitis. Her AST and ALT continued to double in levels, however total bili remained normal which can be effects from viral infections including. Order EBV, CMV, parvovirus titers, etc. (2) Vomiting and diarrhea: Intermittent, improved today Also with diarrhea but only 2-3 loose stools daily Cholelithiasis but no cholecystitis. See above for managent. Cont supportive symptoms in meantime. (3) Pancytopenia: Worsening today, platelets down to 70, WBC down to 3.2, hemoglobin stable at 12.2 Receive chemotherapy in 01/25-unclear if this chemo would drop her counts? viral induced? due to recent chemotherapy? suspect it is bone marrow suppression from infectious process. repeat CBC in am. (4) Colon cancer metastasized to lung: Followed by Dr. Ortiz, . s/p Erbitux, last chemo was 01/25/19. s/p multiple procedures on lungs for mets in the past (see PMH section of EMR for details). (5) Hypomagnesemia: severe on admission with presenting level being 1 due to vomiting/diarrhea at home? not on diuretics at home. does chronic PPI use contribute? renal wasting? s/p 4 grams of mag on hospital day #1. There was no Mg reading in today's sample fixed low K and low Ca as well. (6) Hypocalcemia: even corrected calcium level is slightly low, but acceptable. calcium gluconate 1gm IV x 1 was given previously repeat BMP in am. 11/2018 vitamin D level was mildly low. doubt that this is the main issue causing low calcium. (7) Hypokalemia: Replaced, now normalized (8) Positive blood culture: See above Following repeat cultures (9) Essential hypertension: Controlled. Cont beta kenia at reduced dose as BPs have been low-normal in face of suspected infection. Has been having sinus tachycardia proven by ECG with rates in the 130s likely secondary to fever, dehydration, as well as reducing beta-kenia dose Maintain metoprolol at currebt dose Cont IV fluids today Treat fevers (10) GERD (gastroesophageal reflux disease): PPI Esophagitis presence: esophagitis presence not specified Qualified Code(s): K21.9 - Gastro-esophageal reflux disease without esophagitis (11) Hypothyroid: Continue levothyroxine at home dose. TSH 2 months ago -- 3. Hypothyroidism type: acquired Qualified Code(s): E03.9 - Hypothyroidism, unspecified (12) DVT (deep venous thrombosis): history of. Continue on Eliquis 5 mg twice daily. watch platelet count carefully as it has been dropping last few days. Affected thrombotic vein of extremity: unspecified vein of extremity Chronicity: unspecified DVT location: lower extremity Laterality: unspecified laterality Qualified Code(s): I82.409 - Acute embolism and thrombosis of unspecified deep veins of unspecified lower extremity (13) HLD (hyperlipidemia): - Cont statin therapy AST again tish mildly today. Follow LFTs If AST/ALT rise further then hold statin. Hyperlipidemia type: mixed hyperlipidemia Qualified Code(s): E78.2 - Mixed hyperlipidemia (14) Asthma: no issues at this time. continue inhaled steroid and albuterol prn. Asthma complication type: uncomplicated Asthma persistence: intermittent Asthma severity: mild Qualified Code(s): J45.20 - Mild intermittent asthma, uncomplicated (15) Morbid obesity with BMI of 45.0-49.9, adult: BMI 49 (16) DVT prophylaxis: eliquis PT, OT evals Disposition-remain hospitalized until fevers improve and following repeat blood cultures Subjective Patient continues to spike fevers, responds to acetaminophen She says she feels poorly. + Nausea, - vomiting. Hasn't eaten anything since yesterday morning. Currently on IVF Had 1 bowel mov't overnight, diarrhea in nature. Still has dysuria. Reports consitent abd pain in eoigastric area (07/07). Headache is present today (05/07) No cough Review of Systems All systems reviewed & are unremarkable except as noted in HPI & below Respiratory: + dyspnea on exertion (at baseline); no cough Physical Exam Vital Signs (Past 24 Hours): Last Vital Signs Temp 38.5 C H 01/31/19 10:02 Pulse 101 H 01/31/19 08:03 Resp 18 01/31/19 08:03 BP 141/84 H 01/31/19 07:25 Pulse Ox 90 01/31/19 08:03 Constitutional: WD/WN, vitals as above + acute distress (appeared very uncomfortable), + ill appearing, + morbidly obese and cooperative Eyes: PERRL, conjunctivae normal, anicteric sclerae ENMT: Nose: + dry nasal mucous membranes Mouth: + dry oral mucous membranes Respiratory: + labored breathing, able to speak in complete sentences and + audible wheezes Auscultation: + wheezes (mild expiratory wheeze in Right Upper Lobe) Cardiovascular: Rate/Rhythm: regular rhythm and + tachycardic Heart Sounds: normal S1 and normal S2 Extremities: normal capillary refill Chest (Breasts): Chest: + vascular access device or port Gastrointestinal (Abdomen): Inspection/Auscultation: + significant pannus, + abdominal surgical scar and + hypoactive bowel sounds Percussion/Palpation: + abdomen tender (reports pain upon palpation of epigastric region), abdomen soft, + hernia (palpable scarred tissue from prior ventral hernia repair in epigastric) and normal to percussion Musculoskeletal: no cyanosis or clubbing, extremities motor strength 5/5 Head/Neck/Chest: + head abnormal to inspection, normocephalic, head atraumatic and neck supple Skin: no rashes, warm and dry Results & Data Labs CBC & Chem 7: 01/31/19 06:06 01/31/19 06:06 Labs: Short CBC 01/31/19 Range/Units 06:06 WBC 2.29 L (4.8-10.8) K/uL Hgb 12.6 (12.0-16.0) g/dL Hct 40.1 (37-47) % Plt Count 59 L (130-400) K/uL BMP 01/31/19 06:06 Sodium 137 Potassium 4.0 Chloride 108 H Carbon Dioxide 25 BUN 8 Creatinine 0.93 Glucose 93 Calcium 7.1 L Liver Function 01/31/19 Range/Units 06:06 Total Bilirubin 0.3 (0.2-1) mg/dl AST 374 H (15-37) U/L ALT 198 H (12-78) U/L Alkaline Phosphatase 88 (45-117) U/L Albumin 2.4 L (3.4-5.0) gm/dl Urine 01/30/19 Range/Units 20:20 Urine Color Yellow Urine Appearance Cloudy H (Clear) Urine pH 5.0 (4.5-7.5) Ur Specific [place] 1.020 (1.000-1.030) Urine Protein 1+ H (Negative) Urine Glucose (UA) Negative (Negative)
[2019-01-31] MEDS: VANCOMYCIN HCL 1,250 MG in SODIUM CHLORIDE 0.9% 250 ML IV SCH ×2 (11:09→21:56)
--- NOTE | 2019-01-31 11:48 | Hospitalist Progress Note ---
Date of Service January 31, 2019 Assessment & Plan (1) SIRS (systemic inflammatory response syndrome): With infectious process in the setting of recent antineoplastic therapy given in late December for her stage 4 colon cancer. she remains on broad-spectrum IV abx including cefepime and vancomycin, but given possibility of GI-related illness, will change Cefepime to ZOsyn -Continue Tamiflu for empiric coverage in the event flu PCR was falsely negative as much of her clinical picture could be c/w influenza, however with bacteremia as below. blood cultures from admission - 1 set out of 2 with 2 species of coag negative staph; we contacted the lab and unfortunately it is undetermined if the +set is from the port or periphery. Continues to spike fevers Repeat blood cultures-now 11/29 with GPC not Satph aureus thus far -- * cxr w/o obvious pneumonia and repeat chest x-ray again no obvious pneumonia * gall bladder u/s without acute cholecystitis and repeat US today without acute israel despite worsening LFTs and abd pain * urine cx negative, repeat UA is lilkely contaminated despite dysuria * flu PCR negative (but see above re: tamiflu) * blood cx's as above Follow all cultures. Repeat BCxs again today-suspect port infected --> start Lock therapy with Vanco CHecked CT chest/abd/pelvis--> suspect acute israel on this--> check HIDA scan in AM -follow LFTs -Consult ID -check Hep panel (2) Vomiting and diarrhea: continues with nausea and abd pain Also with diarrhea but only 2-3 loose stools daily Gall bladder us with gallstones but no cholecystitis. But CT with possible acute israel as above -checing HIDA -switch to ZOsyn from Cefepime -check c. diff, stool cx's, etc. (3) Pancytopenia: Worsening today, platelets down to 59, WBC down to 2.2, hemoglobin stable at 12.6 Receive chemotherapy in 01/25-unclear if this chemo would drop her counts? viral induced? due to recent chemotherapy? suspect it is bone marrow suppression from infectious process. repeat CBC in am. (4) Colon cancer metastasized to lung: Followed by Dr. Ortiz, . s/p Erbitux, last chemo was 01/25/19. s/p multiple procedures on lungs for mets in the past (see PMH section of EMR for details). CT CHest with stable size lung mass (5) Hypomagnesemia: severe on admission with presenting level being 1.0 due to vomiting/diarrhea at home? not on diuretics at home. does chronic PPI use contribute? renal wasting? Follow and replace (6) Hypocalcemia: Follow and repalce as needed-corrected Ca++ today just below normal 11/2018 vitamin D level was mildly low. doubt that this is the main issue causing low calcium. (7) Hypokalemia: Replaced, now normalized (8) Positive blood culture: COag neg Staph and repeat cxs again with GPC from port site -repeat BCxs again -continue Vanco IV and lock therapy (9) Essential hypertension: Controlled. Cont beta kenia at reduced dose as BPs have been low-normal in face of suspected infection. -Has been having sinus tachycardia proven by ECG with rates in the 130s likely secondary to fever, dehydration, as well as reducing beta-kenia dose -Consider increasing metoprolol back up -continue IV fluids today -Treat fevers (10) GERD (gastroesophageal reflux disease): PPI (11) Hypothyroid: Continue levothyroxine at home dose. TSH 2 months ago -- 3. (12) DVT (deep venous thrombosis): history of. Continue on Eliquis 5 mg twice daily. watch platelet count carefully as it has been dropping last few days. (13) HLD (hyperlipidemia): -hold statin due to rising LFTs (14) Asthma: no issues at this time. continue inhaled steroid and albuterol prn. (15) Morbid obesity with BMI of 45.0-49.9, adult: BMI 49 (16) DVT prophylaxis: eliquis PT, OT evals Disposition-remain hospitalized until fevers improve and following repeat blood cultures Subjective Pt feeling nauseated, still some loose stools, no BRBPR. No vomiting. Is having 6/10 epigastric pain, nonradiating. Physical Exam Vital Signs (Past 24 Hours): Last Vital Signs Temp 38.5 C H 01/31/19 10:02 Pulse 101 H 01/31/19 08:03 Resp 18 01/31/19 08:03 BP 141/84 H 01/31/19 07:25 Pulse Ox 90 01/31/19 08:03 Constitutional: + ill appearing (but nontoxic) and + morbidly obese; no acute distress ENMT: Mouth: no oral mucosal abnormality (MMM today) Respiratory: normal respiratory effort Auscultation: + wheezes (hint of end-exp wheeze b/l); no crackles Cardiovascular: Rate/Rhythm: regular rhythm and + tachycardic; + abnormal rate Heart Sounds: normal S1 and normal S2; no murmur Vessels: posterior tibial pulses present and dorsalis pedis pulses present; no JVD Gastrointestinal (Abdomen): normal bowel sounds, soft, nontender, no hepatosplenomegaly Inspection/Auscultation: normal bowel sounds; abdomen not distended Percussion/Palpation: + abdomen tender (in epigastric region without guarding) and + hernia (ventral); no hepatosplenomegaly Psychiatric: A+Ox3, euthymic affect Results & Data Laboratory Results 02/01/19 02/01/19 01/31/19 Range/Units 07:50 07:50 12:31 WBC 1.92 L (4.8-10.8) K/uL RBC 3.98 L (4.2-5.4) M/uL Hgb 12.1 (12.0-16.0) g/dL Hct 37.6 (37-47) % MCV 94.5 (80-100) fL MCH 30.4 (25-34) pg MCHC 32.2 (32-36) g/dL RDW Std Deviation 47.1 H (36.4-46.3) fL RDW Coeff of Marcell 13.6 (11.5-14.5) % Plt Count 43 L (130-400) K/uL MPV 10.4 (7.4-10.4) fL Immature Gran % (Auto) 0.0 % Neut % (Auto) 62.5 % Lymph % (Auto) 27.1 % [place] % (Auto) 9.9 % Eos % (Auto) 0.0 % Baso % (Auto) 0.5 % Immature Gran # (Auto) 0.00 (0.00-0.02) K/uL Neut # (Auto) 1.20 L (1.4-6.5) K/uL Lymph # (Auto) 0.52 L (1.2-3.4) K/uL [place] # (Auto) 0.19 (0.11-0.59) K/uL Eos # (Auto) 0.00 (0-0.5) K/uL Baso # (Auto) 0.01 (0-0.2) K/uL Sodium Pending Potassium Pending Chloride Pending Carbon Dioxide Pending Anion Gap Pending BUN Pending Creatinine Pending Est Cr Clr Drug Dosing Pending Est GFR ( Amer) Pending Est GFR (Non-Af Amer) Pending BUN/Creatinine Ratio Pending Glucose Pending Calcium Pending Magnesium Pending Total Bilirubin Pending Direct Bilirubin Pending AST Pending ALT Pending Alkaline Phosphatase Pending Total Protein Pending Albumin Pending Lipase (73-393) U/L Stl C. diff Tox B Gene Neg C.diff Toxin B (Neg) Vancomycin Trough (See Comment) mcg/ml Hepatitis A IgM Ab (NON-REACTIVE) Hep Bs Antigen (Neg) Hep B Core IgM Ab (NON-REACTIVE) Hepatitis C Antibody (Neg) 01/31/19 01/31/19 01/31/19 Range/Units 10:49 10:49 10:49 WBC (4.8-10.8) K/uL RBC (4.2-5.4) M/uL Hgb (12.0-16.0) g/dL Hct (37-47) % MCV (80-100) fL MCH (25-34) pg MCHC (32-36) g/dL RDW Std Deviation (36.4-46.3) fL RDW Coeff of Marcell (11.5-14.5) % Plt Count (130-400) K/uL MPV (7.4-10.4) fL Immature Gran % (Auto) % Neut % (Auto) % Lymph % (Auto) % [place] % (Auto) % Eos % (Auto) % Baso % (Auto) % Immature Gran # (Auto) (0.00-0.02) K/uL Neut # (Auto) (1.4-6.5) K/uL Lymph # (Auto) (1.2-3.4) K/uL [place] # (Auto) (0.11-0.59) K/uL Eos # (Auto) (0-0.5) K/uL Baso # (Auto) (0-0.2) K/uL Sodium Potassium Chloride Carbon Dioxide Anion Gap BUN Creatinine Est Cr Clr Drug Dosing Est GFR ( Amer) Est GFR (Non-Af Amer) BUN/Creatinine Ratio Glucose Calcium Magnesium Total Bilirubin Direct Bilirubin AST ALT Alkaline Phosphatase Total Protein Albumin Lipase (73-393) U/L Stl C. diff Tox B Gene (Neg) Vancomycin Trough 13.8 (See Comment) mcg/ml Hepatitis A IgM Ab NON-REACTIVE (NON-REACTIVE) Hep Bs Antigen Neg (Neg) Hep B Core IgM Ab NON-REACTIVE (NON-REACTIVE) Hepatitis C Antibody Neg (Neg) 01/31/19 Range/Units 06:06 WBC (4.8-10.8) K/uL RBC (4.2-5.4) M/uL Hgb (12.0-16.0) g/dL Hct (37-47) % MCV (80-100) fL MCH (25-34) pg MCHC (32-36) g/dL RDW Std Deviation (36.4-46.3) fL RDW Coeff of Marcell (11.5-14.5) % Plt Count (130-400) K/uL MPV (7.4-10.4) fL Immature Gran % (Auto) % Neut % (Auto) % Lymph % (Auto) % [place] % (Auto) % Eos % (Auto) % Baso % (Auto) % Immature Gran # (Auto) (0.00-0.02) K/uL Neut # (Auto) (1.4-6.5) K/uL Lymph # (Auto) (1.2-3.4) K/uL [place] # (Auto) (0.11-0.59) K/uL Eos # (Auto) (0-0.5) K/uL Baso # (Auto) (0-0.2) K/uL Sodium Potassium Chloride Carbon Dioxide Anion Gap BUN Creatinine Est Cr Clr Drug Dosing Est GFR ( Amer) Est GFR (Non-Af Amer) BUN/Creatinine Ratio Glucose Calcium Magnesium Total Bilirubin Direct Bilirubin AST ALT Alkaline Phosphatase Total Protein Albumin Lipase 148 (73-393) U/L Stl C. diff Tox B Gene (Neg) Vancomycin Trough (See Comment) mcg/ml Hepatitis A IgM Ab (NON-REACTIVE) Hep Bs Antigen (Neg) Hep B Core IgM Ab (NON-REACTIVE) Hepatitis C Antibody (Neg) AST 374 [id number] TBili 0.[address] chest/abd/pel: CHEST CT WITH CONTRAST; CT ABDOMEN AND PELVIS WITH IV AND ORAL CONTRAST CT DOSE: 2745.29 mGy.cm HISTORY: Acute fever fever TECHNIQUE: Multiaxial CT images of the chest, abdomen and pelvis were performed following the intravenous administration of contrast. A dose lowering technique was utilized adhering to the principles of ALARA. COMPARISON: Right upper quadrant abdominal ultrasound of same day, CT chest, abdomen and pelvis 12/08/2018 FINDINGS: CT CHEST: Hypodense left thyroid nodule with calcification, 12 mm. Right thyroid lobe is not seen and may be surgically absent. No new adenopathy of the chest. Scattered nonenlarged paratracheal lymph nodes. Heart is normal in size without pericardial effusion. Right internal jugular [id number] catheter distal tip terminates within the right ventricle. No thoracic aortic aneurysm or dis section. Patency of the imaged great vessels. The imaged pulmonary arterial tree is unremarkable. Trace bilateral pleural effusions. Moderate right hemidiaphragmatic elevation. Irregular masslike area of consolidation about the right upper lung redemonstrated, 8.2 x 4.7 x 5.7 cm in AP, transverse and craniocaudal dimensions. This previously measured 8.3 x 4.6 x 5.7 cm on comparison study from 12/08/2018. Postoperative changes of the right lung from prior pulmonary resection. Unchanged pleural-based 4 mm solid nodule of the right upper lung on image 47 series 6. Postoperative changes of the medial left lung apex. 2 mm solid nodule of the apical posterior segment left upper lobe, unchanged. Minimal subsegmental dependent left basilar atelectasis. Central airways appear patent. Soft tissues of the chest appear unremarkable. Bones appear to be intact. No suspicious lytic or blastic bony lesions. CT ABDOMEN/PELVIS: No pneumatosis or pneumoperitoneum. Cholelithiasis with mild gallbladder wall thickening. There is also trace pericholecystic edema. No associated biliary ductal dilation. Liver is unremarkable. Spleen demonstrates scattered calcified granulomata. Pancreas and adrenal glands are unremarkable. Mildly prominent and mildly enlarged periportal lymph nodes measure up to 12 mm in short axis. Bilateral renal sinus cysts are noted. There are no ureteral, or renal calculi identified. Urinary bladder is unremarkable. Prior hysterectomy. Indeterminate 8 mm cystic focus of the right adnexum. Likely benign. The aorta and IVC are unremarkable. No bowel obstruction or focal bowel wall thickening. Decompressed sigmoid and rectum. Terminal ileum is unremarkable. No evidence of acute appendicitis. Postoperative changes of the ventral abdominal wall from prior hernia repair. Tiny fat filled periumbilical hernia, diastases 11 mm. No ascites or mesenteric inflammation. Soft tissues appear unremarkable. No suspicious lytic or blastic bony lesions. Multilevel facet arthrosis with spondylitic spurring of the spine. IMPRESSION: 1. Cholelithiasis with mild gallbladder wall thickening and trace pericholecystic edema is noted without significant gallbladder distention. Correlate clinically to exclude acute cholecystitis. 2. Irregular masslike area of consolidation about the medial right upper lung is unchanged in size and appearance from comparison study dated 12/08/2018. 3. Trace bilateral pleural effusions with subsegmental left basilar atelectasis. 4. Postoperative changes from prior pulmonary resection. 5. Additional findings as above. RUQ US: ULTRASOUND RIGHT UPPER QUADRANT ABDOMEN CLINICAL HISTORY: Elevated hepatic transaminases. COMPARISON STUDY: Abdominal CT dated 12/08/2018. TECHNIQUE: Real-time, grayscale, and color flow sonography of the right upper quadrant of the abdomen was performed. Images are reviewed in the transverse and longitudinal planes. FINDINGS: Liver: The liver is mildly enlarged and demonstrates heterogeneously increased e chotexture consistent with hepatic steatosis. There is no intrahepatic biliary ductal dilatation. The main portal vein is patent. Gallbladder: The gallbladder is contracted and there is a large shadowing gallstone. There is no gallbladder wall thickening or pericholecystic fluid. A sonographic Lundberg's sign is reportedly absent. The common bile duct measures up to 0.4 cm in diameter. Pancreas: Visualized portions of the pancreatic head are normal in appearance. The majority of the pancreas was not well visualized. The splenic vein is patent. Right kidney: Survey images of the right kidney demonstrate normal size and echotexture. There is no hydronephrosis. Ascites: None. IMPRESSION: 1. Hepatomegaly and hepatic steatosis. 2. Cholelithiasis without sonographic evidence of acute cholecystitis. (1) DVT (deep venous thrombosis) Affected thrombotic vein of extremity: unspecified vein of extremity Chronicity: unspecified DVT location: lower extremity Laterality: unspecified laterality Qualified Code(s): I82.409 - Acute embolism and thrombosis of unspecified deep veins of unspecified lower extremity (2) HLD (hyperlipidemia) Hyperlipidemia type: mixed hyperlipidemia Qualified Code(s): E78.2 - Mixed hyperlipidemia (3) Hypothyroid Hypothyroidism type: acquired Qualified Code(s): E03.9 - Hypothyroidism, unspecified (4) GERD (gastroesophageal reflux disease) Esophagitis presence: esophagitis presence not specified Qualified Code(s): K21.9 - Gastro-esophageal reflux disease without esophagitis (5) Asthma Asthma complication type: uncomplicated Asthma persistence: intermittent Asthma severity: mild Qualified Code(s): J45.20 - Mild intermittent asthma, uncomplicated
[2019-01-31 11:51] LABS: Hepatitis B Surface Antigen Neg (Neg)
--- NOTE | 2019-01-31 12:09 | Pharmacy Report ---
Pharmacy Abx Dose Short Note - Date of Service January 31, 2019 - Assessment & Plan Assessment 68 year old F with coagulase negative staph bacteremia in the setting of indwelling a port * Recent antineoplastic therapy given in late December for her stage 4 colon cancer * Patient currently on vancomycin and cefepime IV. Dr. Kinney would like cefepime to continue until GI process is ruled out * Will also be starting antibiotic lock therapy with vancomycin in attempt to salvage a port Plan Vancomycin * Trough level of 13.8 mcg/mL is subtherapeutic * Of note, patient previously went 19 hours without a vanc dose therefore current dose not quite at steady state. Also I anticipate accumulation of drug due to obesity * Continue vancomycin 1250 mg IV every 12 hours * Goal trough level: 15 - 20 mcg/mL * Repeat trough level on 02/01 to ensure trough > 15 mcg/mL Pharmacy will continue to follow and will adjust dose/frequency as necessary. Thank you.
[2019-01-31 12:20] LABS: Hepatitis C IgG 13Yrs+Old_Rflx Neg (Neg)
[2019-01-31] MEDS: HEPARIN SODIUM IV SCH (14:07)
[2019-01-31] MEDS: VANCOMYCIN HCL IV SCH (14:07)
--- NOTE | 2019-01-31 14:17 | Ultrasound Report ---
ULTRASOUND RIGHT UPPER QUADRANT ABDOMEN CLINICAL HISTORY: Elevated hepatic transaminases. COMPARISON STUDY: Abdominal CT dated 12/08/2018. TECHNIQUE: Real-time, grayscale, and color flow sonography of the right upper quadrant of the abdomen was performed. Images are reviewed in the transverse and longitudinal planes. FINDINGS: Liver: The liver is mildly enlarged and demonstrates heterogeneously increased echotexture consistent with hepatic steatosis. There is no intrahepatic biliary ductal dilatation. The main portal vein is patent. Gallbladder: The gallbladder is contracted and there is a large shadowing gallstone. There is no gall bladder wall thickening or pericholecystic fluid. A sonographic Lundberg's sign is reportedly absent. T he common bile duct measures up to 0.4 cm in diameter. Pancreas: Visualized portions of the pancreatic head are normal in appearance. The majority of the pa ncreas was not well visualized. The splenic vein is patent. Right kidney: Survey images of the right kidney demonstrate normal size and echotexture. There is no hydronephrosis. Ascites: None. IMPRESSION: 1. Hepatomegaly and hepatic steatosis. 2. Cholelithiasis without sonographic evidence of acute cholecystitis. Electronically signed by: Isai Antoine M.D. 01/31/2019 2:15 PM
[2019-01-31] MEDS ORDERED: PERFLUTREN LIPID MICROSPHERE (DEFINITY) IV ONE (14:59)
[2019-01-31] MEDS ORDERED: PHENAZOPYRIDINE HCL 200 MG TAB PO PRN (16:19)
[2019-01-31] MEDS: SERTRALINE HCL 50 MG TABLET PO SCH (20:35)
[2019-01-31] MEDS: CYANOCOBALAMIN 500 MCG TABLET (VITAMIN B-12) PO SCH (20:36)
[2019-01-31] MEDS ORDERED: IOVERSOL 100ml IV PRN (21:18)
--- NOTE | 2019-01-31 23:27 | CT Scan Report ---
CHEST CT WITH CONTRAST; CT ABDOMEN AND PELVIS WITH IV AND ORAL CONTRAST CT DOSE: 2745.29 mGy.cm HISTORY: Acute fever fever TECHNIQUE: Multiaxial CT images of the chest, abdomen and pelvis were performed following the intrave nous administration of contrast. A dose lowering technique was utilized adhering to the principles o f ALARA. COMPARISON: Right upper quadrant abdominal ultrasound of same day, CT chest, abdomen and pelvis 12/08 FINDINGS: CT CHEST: Hypodense left thyroid nodule with calcification, 12 mm. Right thyroid lobe is not seen and may be murcia rgically absent. No new adenopathy of the chest. Scattered nonenlarged paratracheal lymph nodes. Hear t is normal in size without pericardial effusion. Right internal jugular [id number] catheter dista l tip terminates within the right ventricle. No thoracic aortic aneurysm or dissection. Patency of th e imaged great vessels. The imaged pulmonary arterial tree is unremarkable. Trace bilateral pleural effusions. Moderate right hemidiaphragmatic elevation. Irregular masslike are a of consolidation about the right upper lung redemonstrated, 8.2 x 4.7 x 5.7 cm in AP, transverse an d craniocaudal dimensions. This previously measured 8.3 x 4.6 x 5.7 cm on comparison study from 2018. Postoperative changes of the right lung from prior pulmonary resection. Unchanged pleural-based 4 mm solid nodule of the right upper lung on image 47 series 6. Postoperative changes of the medial left lung apex. 2 mm solid nodule of the apical posterior segment left upper lobe, unchanged. Minimal subsegmental dependent left basilar atelectasis. Central airways appear patent. Soft tissues of the chest appear unremarkable. Bones appear to be intact. No suspicious lytic or reynold tic bony lesions. CT ABDOMEN/PELVIS: No pneumatosis or pneumoperitoneum. Cholelithiasis with mild gallbladder wall thickening. There is al so trace pericholecystic edema. No associated biliary ductal dilation. Liver is unremarkable. Spleen demonstrates scattered calcified granulomata. Pancreas and adrenal glands are unremarkable. Mildly pr ominent and mildly enlarged periportal lymph nodes measure up to 12 mm in short axis. Bilateral renal sinus cysts are noted. There are no ureteral, or renal calculi identified. Urinary bl adder is unremarkable. Prior hysterectomy. Indeterminate 8 mm cystic focus of the right adnexum. Like ly benign. The aorta and IVC are unremarkable. No bowel obstruction or focal bowel wall thickening. D ecompressed sigmoid and rectum. Terminal ileum is unremarkable. No evidence of acute appendicitis. Po stoperative changes of the ventral abdominal wall from prior hernia repair. Tiny fat filled periumbil ical hernia, diastases 11 mm. No ascites or mesenteric inflammation. Soft tissues appear unremarkable . No suspicious lytic or blastic bony lesions. Multilevel facet arthrosis with spondylitic spurring o f the spine. IMPRESSION: 1. Cholelithiasis with mild gallbladder wall thickening and trace pericholecystic edema is noted with out significant gallbladder distention. Correlate clinically to exclude acute cholecystitis. 2. Irregular masslike area of consolidation about the medial right upper lung is unchanged in size an d appearance from comparison study dated 12/08/2018. 3. Trace bilateral pleural effusions with subsegmental left basilar atelectasis. 4. Postoperative changes from prior pulmonary resection. 5. Additional findings as above. Electronically signed by: Vincent Duran M.D. 01/31/2019 11:25 PM
[2019-02-01] MEDS ORDERED: PIPERACILL/TAZOBAC CONSULT ACTIVE PRN (00:34)
[2019-02-01] MEDS ORDERED: PIPERACILLIN/TAZOBACTAM 4.5 GM in DEXTROSE 5% 100 ML IV ONE (01:00)
[2019-02-01] MEDS: LEVALBUTEROL HCL 1.25 MG/3 ML NEB NEB SCH ×4 (01:53→19:12)
[2019-02-01] MEDS: NSS + 20MEQ KCL 20 MEQ/1,000 ML BAG IV SCH ×3 (01:59→20:34)
[2019-02-01] MEDS: ACETAMINOPHEN 500 MG TAB PO PRN (04:29)
[2019-02-01] MEDS: LEVOTHYROXINE SODIUM 125 MCG TABLET PO SCH (05:35)
[2019-02-01] MEDS ORDERED: PIPERACILLIN/TAZOBACTAM 4.5 GM in DEXTROSE 5% 100 ML IV SCH (06:00)
[2019-02-01 08:01] LABS: Hematocrit (blood only) 37.6 % (37-47); Hemoglobin 12.1 g/dL (12.0-16.0); Mean Corpuscular Hgb Conc 32.2 g/dL (32-36); Mean Corpuscular Volume 94.5 fL (80-100); RDW Coefficient of Variation 13.6 % (11.5-14.5); RDW Standard Deviation 47.1 fL (36.4-46.3); Red Blood Count 3.98 M/uL (4.2-5.4); White Blood Count 1.92 K/uL (4.8-10.8)
[2019-02-01 08:06] LABS: Basophils # (auto) 0.01 K/uL (0-0.2); Basophils % (auto) 0.5 %; Lymphocytes # (auto) 0.52 K/uL (1.2-3.4); Lymphocytes % (auto) 27.1 %; Mean Platelet Volume 10.4 fL (7.4-10.4); Monocytes # (auto) 0.19 K/uL (0.11-0.59); Monocytes % (auto) 9.9 %; Neutrophils % (auto) 62.5 %; Platelet Count 43 K/uL (130-400)
[2019-02-01 08:41] LABS: Alanine Aminotransferase 222 U/L (12-78); Albumin Level 2.5 gm/dl (3.4-5.0); Alkaline Phosphatase 88 U/L (45-117); Aspartate Aminotransferase 406 U/L (15-37); BUN Creatinine Ratio 7.2 (10-20); Bilirubin Direct < 0.1 mg/dl (0-0.2); Bilirubin,Total 0.3 mg/dl (0.2-1); Blood Urea Nitrogen 7 mg/dl (7-18); Calcium 7.1 mg/dl (8.5-10.1); Carbon Dioxide 22 mmol/L (21-32); Chloride 111 mmol/L (98-107); Creatinine Clr Calc Pharmacy 76.5 ml/min; Est GFR (African American) 70.5; Est GFR (Non-African American) 60.9; Glucose 91 mg/dl (70-99); Magnesium 0.9 mg/dl (1.8-2.4); Sodium 140 mmol/L (136-145); Total Protein 5.9 gm/dl (6.4-8.2)
[2019-02-01] MEDS: MAGNESIUM SULFATE / D5W 1 GM/100 ML BAG IV SCH ×3 (09:25→13:52)
--- NOTE | 2019-02-01 10:17 | Medical Student Progress Note ---
Date of Service February 01, 2019 Assessment & Plan (1) SIRS (systemic inflammatory response syndrome): 68-year-old female with metastatic colon cancer day 5 of admission with fever with coagulase-negative staph bacteremia in the setting of indwelling a port. Suspected infectious process in the setting of current chemotheapy for her stage 4 colon cancer. she remains on broad-spectrum IV abx. Cefepine swictched to Zosyn, and vancomycin continued. Continue Tamiflu for empiric coverage in the event flu PCR was falsely negative as much of her clinical picture could be c/w influenza, however with bacteremia as below. Has no reported fevers today. blood cultures from admission - 1 set out of 2 with 2 species of coag negative staph; we contacted the lab and unfortunately it is undetermined if the +set is from the port or periphery. Repeat blood cultures- sample from port tested positive for coagulase negative staph liliya, peripheral sample was negative. original cxr and repeat chest x-ray again no obvious pneumonia gall bladder u/s positive for cholelithiasis without acute cholecystitis urine cx negative flu PCR negative (but see above re: tamiflu) blood cx's as above Chest CT- bi-basilar atelectasis, no new changes in size on RUL mass. Abdominal Pelvic CT- trace pericholecystitis and gall bladder thickening was noted, no abnormalities in size of pancreas or adrenals, however a cyst was found on R. adrenal Nuclear hepatobilliary scan showed unremarkable findings: Proper EF% of 83 % and no findings of cholecystitis Follow all cultures. Persistent GI Sx--see above for CT findings, stool cultures negative for Cdiff, no WBCs, moderate mixed liliya UA show UTI not likely Infectious disease consulted appreciate note If the blood cultures did not glove turner and former automatic to be contaminated, However, she may still have a viral syndrome in light of her persistent transamanitis. Her AST and ALT continued to increase in levels (406 and 222 respectively), however total bili and lipase remained normal which can be effects from viral infections including. EBV, CMV, parvovirus. Titers are still pending. Hep series all negative (2) Vomiting and diarrhea: Intermittent, improved today Also with diarrhea but only 2-3 loose stools daily Cholelithiasis but no cholecystitis. See above for management. Cont supportive symptoms in meantime. (3) Pancytopenia: Worsening today, platelets down to 43, WBC down to 1.9, hemoglobin stable at 12.1 Receive chemotherapy in 01/25-unclear if this chemo would drop her counts? viral induced? due to recent chemotherapy? suspect it is bone marrow suppression from infectious process. repeat CBC in am. (4) Colon cancer metastasized to lung: Followed by Dr. Ortiz, . s/p Erbitux, last chemo was 01/25/19. s/p multiple procedures on lungs for mets in the past (see PMH section of EMR for details). (5) Hypomagnesemia: severe on admission with presenting level being 1 due to vomiting/diarrhea at home? not on diuretics at home. does chronic PPI use contribute? renal wasting? s/p 4 grams of mag on hospital day #1. Today's reading was 0.9....She should withhold more Mg boli (may have contributed to diarrhea). fixed low K and low Ca as well. (6) Hypocalcemia: even corrected calcium level is slightly low, but acceptable. calcium gluconate 1gm IV x 1 was given previously repeat BMP in am. 11/2018 vitamin D level was mildly low. She had an ordered and administered 50,000 IU on 01/28 doubt that this is the main issue causing low calcium. (7) Hypokalemia: Replaced, now normalized (8) Positive blood culture: See above Following repeat cultures (9) Essential hypertension: Not well controlled at the moment Cont beta kenia at reduced dose as BPs have been low-normal in face of suspected infection. Has been having sinus tachycardia proven by ECG with rates in the 130s likely secondary to fever, dehydration, as well as reducing beta-kenia dose Maintain metoprolol at current dose Cont IV fluids today Treat fevers (10) GERD (gastroesophageal reflux disease): PPI Esophagitis presence: esophagitis presence not specified Qualified Code(s): K21.9 - Gastro-esophageal reflux disease without esophagitis (11) Hypothyroid: Continue levothyroxine at home dose. TSH 2 months ago -- 3. Hypothyroidism type: acquired Qualified Code(s): E03.9 - Hypothyroidism, unspecified (12) DVT (deep venous thrombosis): history of DVT hold Eliquis- platelet count dropped too low Affected thrombotic vein of extremity: unspecified vein of extremity Chronicity: unspecified DVT location: lower extremity Laterality: unspecified laterality Qualified Code(s): I82.409 - Acute embolism and thrombosis of unspecified deep veins of unspecified lower extremity (13) HLD (hyperlipidemia): AST again tish mildly today. AST/ALT rincreased again significantly, consider holding statin. Follow LFTs Hyperlipidemia type: mixed hyperlipidemia Qualified Code(s): E78.2 - Mixed hyperlipidemia (14) Asthma: no issues at this time. continue inhaled steroid and albuterol prn. Asthma complication type: uncomplicated Asthma persistence: intermittent Asthma severity: mild Qualified Code(s): J45.20 - Mild intermittent asthma, uncomplicated (15) Morbid obesity with BMI of 45.0-49.9, adult: BMI 49 (16) DVT prophylaxis: hold eliquis Disposition-remain hospitalized, fevers have been intermittent, but blood cultures are still pending. (17) Coagulase negative Staphylococcus bacteremia: Infected a port. Continue patient on vancomycin with zosyn lock therapy. Will likely need at least 2 weeks of IV antibiotics. If fever continues, would consider repeating abdominal CT scan. CMV and EBV studies pending. Will follow. (18) Elevated LFTs: LFTs treding upward; normal T bili. AST 406, ALT 222. Hep A, B, and C -, Monospot negative CT scan of the liver without significant abnormality Right upper quadrant ultrasound without significant abnormality HIDA scan negative for acute cholecystitis Likely secondary either to sepsis or viral process or medication or antibiotic effect Follow LFTs Subjective Has been afebrile this morning, did not require any acetaminophen. She says she feels better than yesterday. + Nausea, no vomiting- endorses dry heaving. Hasn't eaten much. Reports eating a little fruit after her CT scan yesterday. Is currently NPO as she awaits her hepatobilliary nuclear testing. Endorses a desire for food. Currently on IVF Had 1 bowel mov't overnight, diarrhea in nature. Still has dysuria. Reports her abdominal pain is different than yesterday, that "it is better and more of a hunger pain than anything" (03/07) Reported a brief episode of dizziness this morning when she went to the restroom, reports that it was from getting up too soon and then urinating. She has not had any episodes of light-headedness since. Reports that she woke up at 4a with blood on her arm and gown. She says that she bled from her peripheral IV site in her right antecubital region. She states lv t overnight nurse reported her having a leak that probably lasted for about 30 sec. No headache No cough Physical Exam Vital Signs (Past 24 Hours): Last Vital Signs Temp 37.3 C 02/01/19 08:31 Pulse 97 H 02/01/19 08:31 Resp 20 02/01/19 08:31 BP 116/76 02/01/19 08:31 Pulse Ox 97 02/01/19 08:31 Constitutional: WD/WN, vitals as above + morbidly obese and cooperative Eyes: PERRL, conjunctivae normal, anicteric sclerae ENMT: external ear and nose normal, oropharynx normal Respiratory: + labored breathing, able to speak in complete sentences and + audible wheezes Auscultation: + diminished lung sounds (left lower lobe) and + wheezes (mild expiratory wheeze in Right Upper and Mid Lobe) Cardiovascular: Rate/Rhythm: regular rhythm and + tachycardic Heart Sounds: normal S1 and normal S2 Extremities: normal capillary refill Chest (Breasts): Chest: + vascular access device or port Gastrointestinal (Abdomen): Inspection/Auscultation: + significant pannus, + abdominal surgical scar and + hypoactive bowel sounds Percussion/Palpation: abdomen soft, + hernia (palpable scarred tissue from prior ventral hernia repair in epigastric) and normal to percussion Musculoskeletal: no cyanosis or clubbing, extremities motor strength 5/5 Head/Neck/Chest: + head abnormal to inspection, normocephalic, head atraumatic and neck supple Skin: no rashes, warm and dry + ecchymosis (loctaed near right antecubital fossa where initial IV site was located) Results & Data Labs CBC & Chem 7: 02/01/19 07:50 02/01/19 07:50 Labs: Short CBC 02/01/19 Range/Units 07:50 WBC 1.92 L (4.8-10.8) K/uL Hgb 12.1 (12.0-16.0) g/dL Hct 37.6 (37-47) % Plt Count 43 L (130-400) K/uL BMP 02/01/19 07:50 Sodium 140 Potassium 4.0 Chloride 111 H Carbon Dioxide 22 BUN 7 Creatinine 0.97 Glucose 91 Calcium 7.1 L Liver Function 02/01/19 Range/Units 07:50 Total Bilirubin 0.3 (0.2-1) mg/dl Direct Bilirubin < 0.1 (0-0.2) mg/dl AST 406 H (15-37) U/L ALT 222 H (12-78) U/L Alkaline Phosphatase 88 (45-117) U/L Albumin 2.5 L (3.4-5.0) gm/dl Medications Administered Apixaban (Eliquis) 5 mg PO BID [facility] Stop: 02/27/19 21:14 Last Admin: 02/01/19 11:40 Dose: Not Given Documented by: [id number] Admin: 01/31/19 20:35 Dose: 5 mg Documented by: [id number] Admin: 01/31/19 08:40 Dose: 5 mg Documented by: [id number] Cosigned by: [id number] Admin: 01/30/19 20:02 Dose: 5 mg Documented by: [id number] Admin: 01/30/19 07:57 Dose: 5 mg Documented by: [id number] Admin: 01/29/19 21:11 Dose: 5 mg Documented by: [id number] Admin: 01/29/19 07:46 Dose: 5 mg Documented by: [id number] Admin: 01/28/19 21:54 Dose: 5 mg Documented by: [id number] Aspirin (Ecotrin Ectab) 81 mg PO DAILY [facility] Stop: 02/28/19 08:59 Last Admin: 02/01/19 11:39 Dose: Not Given Documented by: [id number] Admin: 01/31/19 08:41 Dose: 81 mg Documented by: [id number] Cosigned by: [id number] Admin: 01/30/19 07:57 Dose: 81 mg Documented by: [id number] Admin: 01/29/19 07:45 Dose: 81 mg Documented by: [id number] Beclomethasone Dipropionate (Qvar 80mcg) 2 puffs INH BID J[facility]IN Stop: 02/27/19 20:59 Last Admin: 02/01/19 13:07 Dose: Not Given Documented by: [id number] Admin: 01/31/19 20:34 Dose: 2 puffs Documented by: [id number] Admin: 01/31/19 09:01 Dose: 2 puffs Documented by: [id number] Cosigned by: [id number] Admin: 01/30/19 20:05 Dose: 2 puffs Documented by: [id number] Admin: 01/30/19 07:57 Dose: 2 puffs Documented by: [id number] Admin: 01/29/19 21:11 Dose: 2 puffs Documented by: [id number] Admin: 01/29/19 07:46 Dose: 2 puffs Documented by: [id number] Admin: 01/28/19 20:33 Dose: 2 puffs Documented by: [id number] Cyanocobalamin (Vitamin B-12) 1,000 mcg PO HS [facility] Stop: 02/27/19 20:59 Last Admin: 01/31/19 20:36 Dose: 1,000 mcg Documented by: [id number] Admin: 01/30/19 20:04 Dose: 1,000 mcg Documented by: [id number] Admin: 01/29/19 21:14 Dose: 1,000 mcg Documented by: [id number] Admin: 01/28/19 20:32 Dose: 1,000 mcg Documented by: [id number] Ergocalciferol (Vitamin D2) 50,000 units PO Forbes@2100 [facility] Stop: 02/27/19 20:59 Last Admin: 01/28/19 20:32 Dose: 50,000 units Documented by: [id number] Heparin Sodium (Porcine) (Heparin Sod 100 Unit/Ml Flush) 5 ml FLUSH PRN PRN PRN Reason: Flush Stop: 02/28/19 00:29 Last Admin: 01/30/19 06:13 Dose: 5 ml Documented by: [id number] Admin: 01/30/19 04:16 Dose: 5 ml Documented by: [id number] Admin: 01/29/19 19:43 Dose: 5 ml Documented by: [id number] Admin: 01/29/19 11:27 Dose: 5 ml Documented by: [id number] Admin: 01/29/19 07:43 Dose: 5 ml Documented by: [id number] Vancomycin HCl 1,250 mg/ (Sodium Chloride) 275 mls @ 125 mls/hr IV Q12H [facility]; Protocol Stop: 02/13/19 10:59 Last Admin: 02/01/19 12:47 Dose: 125 mls/hr Documented by: [id number] Infusion: 02/01/19 00:26 Dose: 0 mls/hr Documented by: [id number] Admin: 01/31/19 21:56 Dose: 125 mls/hr Documented by: [id number] Infusion: 01/31/19 14:09 Dose: 0 mls/hr Documented by: [id number] Admin: 01/31/19 11:09 Dose: 125 mls/hr Documented by: [id number] Cosigned by: [id number] Infusion: 01/31/19 01:40 Dose: 0 mls/hr Documented by: [id number] Admin: 01/30/19 23:30 Dose: 125 mls/hr Documented by: [id number] Infusion: 01/30/19 14:33 Dose: 0 mls/hr Documented by: [id number] Admin: 01/30/19 12:11 Dose: 125 mls/hr Documented by: [id number] Potassium Chloride/Sodium Chloride (Normal Saline W/20 Meq Kcl) 20 meq in 1,000 mls @ 125 mls/hr IV .Q8H [facility] Stop: 03/01/19 10:59 Last Admin: 02/01/19 09:25 Dose: 125 mls/hr Documented by: [id number] Infusion: 02/01/19 09:25 Dose: 125 mls/hr Documented by: [id number] Admin: 02/01/19 01:59 Dose: 125 mls/hr Documented by: [id number] Infusion: 02/01/19 01:00 Dose: 125 mls/hr Documented by: [id number] Infusion: 01/31/19 22:41 Dose: 125 mls/hr Documented by: [id number] Infusion: 01/31/19 17:00 Dose: 125 mls/hr Documented by: [id number] Infusion: 01/31/19 15:49 Dose: 0 mls/hr Documented by: [id number] Admin: 01/31/19 15:49 Dose: 125 mls/hr Documented by: [id number] Infusion: 01/31/19 14:35 Dose: 0 mls/hr Documented by: [id number] Admin: 01/31/19 06:14 Dose: 125 mls/hr Documented by: [id number] Infusion: 01/31/19 06:12 Dose: 0 mls/hr Documented by: [id number] Admin: 01/30/19 21:58 Dose: 125 mls/hr Documented by: [id number] Infusion: 01/30/19 21:46 Dose: 125 mls/hr Documented by: [id number] Infusion: 01/30/19 16:07 Dose: 125 mls/hr Documented by: [id number] Admin: 01/30/19 12:11 Dose: 75 mls/hr Documented by: [id number] Vancomycin HCl 20 mg/ Heparin Sodium (Porcine) 20,000 units/Syringe 4 mls @ 0 mls/min IV Q48H [facility]; Protocol Stop: 02/14/19 13:59 Last Admin: 01/31/19 14:07 Dose: 4 mls/min Documented by: [id number] Cosigned by: [id number] Piperacillin Sod/Tazobactam (Sod 4.5 gm/ Dextrose) 120 mls @ 30 mls/hr IV Q8H [facility]; Protocol Stop: 02/11/19 05:59 Last Infusion: 02/01/19 09:45 Dose: 0 mls/hr Documented by: [id number] Admin: 02/01/19 05:32 Dose: 30 mls/hr Documented by: [id number] Ioversol (Optiray 320 100ml) 96 ml IV ONCE PRN PRN Reason: Interaction Checking Stop: 02/04/19 21:17 Last Admin: 01/31/19 21:19 Dose: 96 ml Documented by: [id number] Levalbuterol HCl (Xopenex 1.25mg/3ml Neb) 1.25 mg NEB Q6R [facility] Stop: 03/01/19 13:59 Last Admin: 02/01/19 07:14 Dose: 1.25 mg Documented by: [id number] Admin: 02/01/19 01:53 Dose: 1.25 mg Documented by: [id number] Admin: 01/31/19 18:55 Dose: 1.25 mg Documented by: [id number] Admin: 01/31/19 14:03 Dose: 1.25 mg Documented by: [id number] Admin: 01/31/19 08:03 Dose: 1.25 mg Documented by: [id number] Admin: 01/31/19 02:22 Dose: 1.25 mg Documented by: [id number] Admin: 01/30/19 19:07 Dose: 1.25 mg Documented by: [id number] Admin: 01/30/19 13:51 Dose: 1.25 mg Documented by: [id number] Levothyroxine Sodium (Synthroid) 125 mcg PO DAILYBB [facility] Stop: 02/28/19 06:29 Last Admin: 02/01/19 05:35 Dose: 125 mcg Documented by: [id number] Admin: 01/31/19 06:15 Dose: 125 mcg Documented by: [id number] Admin: 01/30/19 06:04 Dose: 125 mcg Documented by: [id number] Admin: 01/29/19 06:03 Dose: 125 mcg Documented by: [id number] Metoprolol Tartrate (Lopressor) 25 mg PO BID [facility] Stop: 02/27/19 13:59 Last Admin: 02/01/19 13:55 Dose: 25 mg Documented by: [id number] Admin: 01/31/19 20:35 Dose: 25 mg Documented by: [id number] Admin: 01/31/19 08:53 Dose: 25 mg Documented by: [id number] Cosigned by: [id number] Admin: 01/30/19 20:05 Dose: 25 mg Documented by: [id number] Admin: 01/30/19 07:56 Dose: 25 mg Documented by: [id number] Admin: 01/29/19 21:09 Dose: 25 mg Documented by: [id number] Admin: 01/29/19 07:46 Dose: 25 mg Documented by: [id number] Admin: 01/28/19 20:30 Dose: 25 mg Documented by: [id number] Admin: 01/28/19 15:32 Dose: 25 mg Documented by: [id number] Multivitamins (Multivitamin Tab) 1 tab PO DAILY [facility] Stop: 02/28/19 08:59 Last Admin: 02/01/19 13:08 Dose: Not Given Documented by: [id number] Admin: 01/31/19 08:42 Dose: 1 tab Documented by: [id number] Cosigned by: [id number] Admin: 01/30/19 07:56 Dose: 1 tab Documented by: [id number] Admin: 01/29/19 07:45 Dose: 1 tab Documented by: [id number] Ondansetron HCl (Zofran) 4 mg IV Q4H PRN PRN Reason: Nausea And Vomiting Stop: 02/27/19 12:15 Last Admin: 02/01/19 12:43 Dose: 4 mg Documented by: [id number] Admin: 01/31/19 17:52 Dose: 4 mg Documented by: [id number] Admin: 01/31/19 07:44 Dose: 4 mg Documented by: [id number] Cosigned by: [id number] Admin: 01/30/19 20:28 Dose: 4 mg Documented by: [id number] Admin: 01/30/19 07:56 Dose: 4 mg Documented by: [id number] Admin: 01/29/19 07:43 Dose: 4 mg Documented by: [id number] Admin: 01/28/19 23:57 Dose: 4 mg Documented by: [id number] [facility]oprazole [facility]ix) [facility] Protocol Stop: 02/28/19 08:59 Last Admin: 02/01/19 13:07 Dose: Not Given Documented by: [id number] Admin: 01/31/19 08:42 Dose: 40 mg Documented by: [id number] Cosigned by: [id number] Admin: 01/30/19 07:57 Dose: 40 mg Documented by: [id number] Admin: 01/29/19 07:45 Dose: 40 mg Documented by: [id number] Phenazopyridine HCl (Pyridium) 200 mg PO TID PRN PRN Reason: Dysuria Stop: 03/02/19 16:18 Last Admin: 01/31/19 17:45 Dose: 200 mg Documented by: [id number] Potassium Chloride (Klor-Con M20) 20 meq PO DAILY [facility] Stop: 02/28/19 08:59 Last Admin: 02/01/19 13:05 Dose: Not Given Documented by: [id number] Admin: 01/31/19 08:40 Dose: 20 meq Documented by: [id number] Cosigned by: [id number] Admin: 01/30/19 07:57 Dose: 20 meq Documented by: [id number] Admin: 01/29/19 07:45 Dose: 20 meq Documented by: [id number] Prochlorperazine (Compazine) 10 mg PO Q6 PRN PRN Reason: Nausea And Vomiting Stop: 02/27/19 12:17 Last Admin: 01/30/19 12:16 Dose: 10 mg Documented by: [id number] Admin: 01/29/19 11:28 Dose: 10 mg Documented by: [id number] Sertraline HCl (Zoloft) 50 mg PO HS [facility] Stop: 02/27/19 20:59 Last Admin: 01/31/19 20:35 Dose: 50 mg Documented by: [id number] Admin: 01/30/19 20:06 Dose: 50 mg Documented by: [id number] Admin: 01/29/19 21:12 Dose: 50 mg Documented by: [id number] Admin: 01/28/19 20:32 Dose: 50 mg Documented by: [id number]
[2019-02-01] MEDS ORDERED: VANCOMYCIN TROUGH ONE (10:30)
--- NOTE | 2019-02-01 10:54 | Infectious Disease Progress Nt ---
Date of Service February 01, 2019 Assessment & Plan (1) Coagulase negative Staphylococcus bacteremia: 68-year-old female with metastatic colon cancer now with fever with coagulase-negative staph bacteremia in the setting of indwelling a port. Certainly infected a port likely this because of recent fever, and would continue patient on vancomycin with vancomycin lock therapy. Will likely need at least 2 weeks of IV antibiotics. If fever continues, would consider repeating abdominal CT scan. CMV and EBV studies pending. Will follow. Subjective Patient seen in follow-up for fever, coagulase-negative staph bacteremia. Patient now feeling somewhat better, temperature curve appears improved. Offers no new complaints. No increase in cough or shortness of breath. Review of Systems All systems reviewed & are unremarkable except as noted in HPI & below Physical Exam Vital Signs (Past 24 Hours): Last Vital Signs Temp 37.3 C 02/01/19 08:31 Pulse 97 H 02/01/19 08:31 Resp 20 02/01/19 08:31 BP 116/76 02/01/19 08:31 Pulse Ox 97 02/01/19 08:31 Constitutional: WD/WN, vitals as above + morbidly obese and comfortable; no acute distress Eyes: PERRL, conjunctivae normal, anicteric sclerae ENMT: external ear and nose normal, oropharynx normal Neck: trachea midline, no thyromegaly neck nontender Respiratory: normal respiratory effort, lungs clear to auscultation normal percussion; does not use accessory muscles Cardiovascular: Rate/Rhythm: regular rate and regular rhythm Heart Sounds: normal S1 and normal S2; no gallop, no murmur and no cardiac rub Vessels: normal peripheral pulses; no JVD Gastrointestinal (Abdomen): Inspection/Auscultation: abdomen normal to inspection and normal bowel sounds Percussion/Palpation: + abdomen tender; no hepatosplenomegaly and no abdominal mass Musculoskeletal: no cyanosis or clubbing, extremities motor strength 5/5 Spine: thoracic spine normal to inspection and lumbar spine normal to inspection; no cervical spinal tenderness Skin: no rashes, warm and dry normal turgor; no lesions Neurologic: patellar DTR's 2+ bilat, sensation intact no focal motor deficits Psychiatric: A+Ox3, euthymic affect Orientation: cooperative Lymphatic: no cervical or axillary lymphadenopathy no inguinal lymphadenopathy Results & Data Laboratory Results Short CBC 02/01/19 Range/Units 07:50 WBC 1.92 L (4.8-10.8) K/uL Hgb 12.1 (12.0-16.0) g/dL Hct 37.6 (37-47) % Plt Count 43 L (130-400) K/uL BMP 02/01/19 07:50 Sodium 140 Potassium 4.0 Chloride 111 H Carbon Dioxide 22 BUN 7 Creatinine 0.97 Glucose 91 Calcium 7.1 L Liver Function 02/01/19 Range/Units 07:50 Total Bilirubin 0.3 (0.2-1) mg/dl Direct Bilirubin < 0.1 (0-0.2) mg/dl AST 406 H (15-37) U/L ALT 222 H (12-78) U/L Alkaline Phosphatase 88 (45-117) U/L Albumin 2.5 L (3.4-5.0) gm/dl Diagnostic Findings Microbiology 01/31/19 12:31 Stool WBC Smear - Final 01/29/19 19:05 Blood Blood Culture - Preliminary Coag neg staph not lugdunensis 01/30/19 20:20 Urine,Clean Catch Urine Culture - Preliminary No growth - Less than 1,000 colonies/mL, Final report to follow. 01/29/19 18:42 Blood Blood Culture - Preliminary No growth to date. 01/28/19 09:21 Blood Blood Culture - Preliminary No growth to date. 01/28/19 09:31 Blood Blood Culture - Preliminary Coag neg staph not lugdunensis Coag neg staph not lugdunensis#2 01/28/19 10:40 Urine,Clean Catch Urine Culture - Final More than three types of organisms present, all low counts mixed probable skin liliya. No further identifications or sensitivities to follow. CHEST CT WITH CONTRAST; CT ABDOMEN AND PELVIS WITH IV AND ORAL CONTRAST CT DOSE: 2745.29 mGy.cm HISTORY: Acute fever fever TECHNIQUE: Multiaxial CT images of the chest, abdomen and pelvis were performed following the intravenous administration of contrast. A dose lowering technique was utilized adhering to the principles of ALARA. COMPARISON: Right upper quadrant abdominal ultrasound of same day, CT chest, abdomen and pelvis 12/08/2018 FINDINGS: CT CHEST: Hypodense left thyroid nodule with calcification, 12 mm. Right thyroid lobe is not seen and may be surgically absent. No new adenopathy of the chest. Scattered nonenlarged paratracheal lymph nodes. Heart is normal in size without pericardial effusion. Right internal jugular Yzopli-i-Qboc catheter distal tip terminates within the right ventricle. No thoracic aortic aneurysm or dissection. Patency of the imaged great vessels. The imaged pulmonary arterial tree is unremarkable. Trace bilateral pleural effusions. Moderate right hemidiaphragmatic elevation. Irregular masslike area of consolidation about the right upper lung re demonstrated, 8.2 x 4.7 x 5.7 cm in AP, transverse and craniocaudal dimensions. This previously measured 8.3 x 4.6 x 5.7 cm on comparison study from 12/08/2018. Postoperative changes of the right lung from prior pulmonary resection. Unchanged pleural-based 4 mm solid nodule of the right upper lung on image 47 series 6. Postoperative changes of the medial left lung apex. 2 mm solid nodule of the apical posterior segment left upper lobe, unchanged. Minimal subsegmental dependent left basilar atelectasis. Central airways appear patent. Soft tissues of the chest appear unremarkable. Bones appear to be intact. No suspicious lytic or blastic bony lesions. CT ABDOMEN/PELVIS: No pneumatosis or pneumoperitoneum. Cholelithiasis with mild gallbladder wall thickening. There is also trace pericholecystic edema. No associated biliary ductal dilation. Liver is unremarkable. Spleen demonstrates scattered calcified granulomata. Pancreas and adrenal glands are unremarkable. Mildly prominent and mildly enlarged periportal lymph nodes measure up to 12 mm in short axis. Bilateral renal sinus cysts are noted. There are no ureteral, or renal calculi identified. Urinary bladder is unremarkable. Prior hysterectomy. Indeterminate 8 mm cystic focus of the right adnexum. Likely benign. The aorta and IVC are unremarkable. No bowel obstruction or focal bowel wall thickening. Decompressed sigmoid and rectum. Terminal ileum is unremarkable. No evidence of acute appendicitis. Postoperative changes of the ventral abdominal wall from prior hernia repair. Tiny fat filled periumbilical hernia, diastases 11 mm. No ascites or mesenteric inflammation. Soft tissues appear unremarkable. No suspicious lytic or blastic bony lesions. Multilevel facet arthrosis with spondylitic spurring of the spine. IMPRESSION: 1. Cholelithiasis with mild gallbladder wall thickening and trace pericholecystic edema is noted without significant gallbladder distention. Correlate clinically to exclude acute cholecystitis. 2. Irregular masslike area of consolidation about the medial right upper lung is unchanged in size and appearance from comparison study dated 12/08/2018. 3. Trace bilateral pleural effusions with subsegmental left basilar atelectasis. 4. Postoperative changes from prior pulmonary resection. 5. Additional findings as above. Electronically signed by: Vincent Duran M.D. 01/31/2019 11:25 PM Dictated: 01/31/19 2307 Transcribed: 01/31/19 2307
[2019-02-01] MEDS: ASPIRIN 81 MG ECTAB PO SCH (11:39)
[2019-02-01] MEDS: MAGNESIUM OXIDE 400 MG TAB PO SCH (11:40)
[2019-02-01] MEDS: ASCORBIC ACID 500 MG TAB PO SCH (11:40)
[2019-02-01] MEDS: OSELTAMIVIR PHOSPHATE 75 MG CAP PO SCH (11:40)
[2019-02-01] MEDS: APIXABAN 5 MG TABLET PO SCH (11:40)
[2019-02-01] MEDS ORDERED: SINCALIDE IV ONE (11:45)
[2019-02-01] MEDS ORDERED: SODIUM CHLORIDE 0.9% IV ONE (11:45)
--- NOTE | 2019-02-01 12:19 | Pharmacy Report ---
Pharmacy Abx Dose Short Note - Date of Service February 01, 2019 - Assessment & Plan Laboratory Tests 02/01/19 02/01/19 07:50 10:41 Creatinine 0.97 Est Cr Clr Drug Dosing 76.5 Vancomycin Trough 15.9 Assessment 68 year old F with coagulase negative staph bacteremia in the setting of indwelling a port * Recent antineoplastic therapy given in late December for her stage 4 colon cancer * Antibiotic lock therapy with vancomycin in attempt to salvage a port * IV Vancomycin and IV Cefepime changed to Zosyn, persistent fevers * Will likely need at least 2 weeks of IV antibiotics. If fever continues,ID recommends repeating abdominal CT scan. * CMV and EBV studies pending. Plan Vancomycin * Trough level of 15.9 mcg/mL is therapeutic * Continue vancomycin 1250 mg IV every 12 hours * Goal trough level: 15 - 20 mcg/mL * Repeat trough level in 3-4 days or sooner if significant change in renal function Zosyn * 4.5g IV Q8H extended interval infusion for BMI 49.3kg/m2 and CrCl > 20ml/min Pharmacy will continue to follow and will adjust dose/frequency as necessary. Thank you.
[2019-02-01] MEDS: ONDANSETRON INJ 2 MG/ML 2 ML VIAL IV PRN ×2 (12:43→18:13)
[2019-02-01] MEDS: VANCOMYCIN HCL 1,250 MG in SODIUM CHLORIDE 0.9% 250 ML IV SCH (12:47)
--- NOTE | 2019-02-01 12:55 | Nuclear Medicine Report ---
NUCLEAR HEPATOBILIARY SCAN WITH EJECTION FRACTION IMAGING CLINICAL HISTORY: Fever. COMPARISON STUDY: Abdominal ultrasound and CT dated 01/31/2019. TECHNIQUE: Dynamic images of the liver and anterior abdomen were obtained every 5 minutes for a total of 60 minutes following the IV administration of 5.5mCi of technetium 99m Choletec. 2.6 mcg of sin calide was then injected with additional images acquired at 65 minutes and 70 minutes to calculate th e gallbladder ejection fraction. FINDINGS: The hepatobiliary scan shows prompt and homogeneous hepatic uptake. There is visualized act ivity within the intra and extrahepatic biliary tree at 5 minutes, and within the gallbladder at 15 minutes. There is normal biliary to bowel transit, with small bowel visualized by 10 minutes. On the sincalide imaging, the gallbladder ejection fraction was measured at 83%. IMPRESSION: 1. Unremarkable nuclear hepatobiliary scan. There is no scintigraphic evidence of cholecystitis. 2. The gallbladder ejection fraction measured 83% which is normal. Electronically signed by: Isai Antoine M.D. 02/01/2019 12:54 PM
[2019-02-01] MEDS: METOPROLOL TARTRATE 25 MG TAB PO SCH ×3 (13:05→20:34)
[2019-02-01] MEDS: POTASSIUM CHLORIDE 20 MEQ TABCR PO SCH (13:05)
[2019-02-01] MEDS: PANTOprazole 40 MG TAB PO SCH (13:07)
[2019-02-01] MEDS: BECLOMETHASONE DIP HFA 80 MCG 8.7G INH INH SCH ×2 (13:07→20:34)
[2019-02-01] MEDS: MULTIVITAMIN TAB PO SCH (13:08)
--- NOTE | 2019-02-01 15:23 | Oncology Consultation ---
Date of Consultation February 01, 2019 Assessment & Plan (1) Pancytopenia: I suspect her falling counts are multifactorial. Cetuximab is sometimes associated with low counts, but not in the way chemo is. She also has not had a lot of issues with cytopenias before with this agent. Sepsis can suppress the bone marrow and that well could be her source. Viral illnesses also often can cause marrow suppression. Both vancomycin and Zosyn are notorious for leading to drug-induced thrombocytopenia. I reviewed her smear and she had no evidence of microangiopathy. I would manage her infection and give usual supportive care. As she improves from an infectious perspective, her counts should rise as well. Present on Admission?: No (2) Coagulase negative Staphylococcus bacteremia: I am not entirely convinced her port is infected. It is not red and has no drainage or fluctuance. Coag-negative staph is a common skin contaminant and she has had it before in cultures. Her peripherally-drawn cultures have all been n egative, so this doesn't appear to be a systemic infection regardless. I would be hesitant to remove her port unless we see more evidence that she really has an infection and that it is causing her symptoms. Present on Admission?: Yes History of Present Illness Reason for Consultation: Pancytopenia Attending Physician: Farzaneh Kinney MD History of Present Illness Ms. Bee is a 68 year old woman with a history of metastatic colorectal cancer that dates back to 2007. She has a complicated oncologic history and is heavily pre-treated with chemotherapy. She currently recevies single-agent cetuximab (an anti-EGFR monoclonal antibody) and had essentially stable disease on her most recent scans in late November. She was last treated on 01/25. She presented to the ER 01/28 with malaise, chills, and shakes, associate with nausea and has vomiting. She was febrile (Tmax 38.2) and tachycardic (HR 120s) in the ER. She denied any localizing infectious symptoms, such as cough, sputum production, abdominal pain. Blood cultures drawn from her port on 01/28 and 01/29 grew out coag-negative staph, but cultures drawn peripherally were negative, suggesting a possible port infection. She also has CT evidence of possible cholecystitis, though subsequent US and HIDA scan are not suggestive. She is on broad-spectrum antibiotics and is feeling better, but was still febrile as of yesterday evening. She has not had a temp above 38 since 1930 yesterday. She screened negative for flu A/B on admission. Serologies for CMV and EBV are pending. Since admission, her WBCs and platelets have trended down. Her WBCs fell from 6.9 on admission to 1.9 today, with an ANC of 1.2. Her platelets fell from 101 on admission to 46 today, though they were already trending down on admission (they were 151 on 01/23). Allergies Allergy/AdvReac Type Severity Reaction Status Date / Time thiopental Allergy Unknown INCREASED Verified 01/28/19 09:10 BLEEDING WITH WISDOM TEETH SURG meperidine AdvReac Mild N/V Verified 01/28/19 09:10 morphine AdvReac Mild N/V Verified 01/28/19 09:10 Home Medications Home Medications Medication Instructions Recorded Confirmed Type albuterol sulfate 2 puff INHALATION Q6 PRN 08/07/18 01/28/19 History apixaban 5 mg PO BID 08/07/18 01/28/19 History ascorbic acid (vitamin C) 1 g PO QAM 08/07/18 01/28/19 History aspirin [Aspirin Childrens] 81 mg PO DAILY 08/07/18 01/28/19 History beclomethasone dipropionate 2 puff INHALATION BID 08/07/18 01/28/19 History cyanocobalamin (vitamin B-12) 1,000 mcg PO HS 08/07/18 01/28/19 History pkolfylxury-sxuhbahva-ijz C-Mn 1 cap PO BID 08/07/18 01/28/19 History [Glucosamine Chondroitin MaxStr] levothyroxine 125 mcg PO QAM 08/07/18 01/28/19 History metoprolol tartrate 50 mg PO BID 08/07/18 01/28/19 History multivitamin 1 tab PO DAILY 08/07/18 01/28/19 History omeprazole 20 mg PO QAM 08/07/18 01/28/19 History ondansetron HCl 8 mg PO Q8 PRN 08/07/18 01/28/19 History potassium chloride 20 meq PO DAILY 08/07/18 01/28/19 History prochlorperazine maleate 10 mg PO Q6 PRN 08/07/18 01/28/19 History sertraline 50 mg PO HS 08/07/18 01/28/19 History simvastatin 40 mg PO QPM 08/07/18 01/28/19 History loperamide 2 mg PO UD PRN #30 cap MDD MAX: 08/10/18 01/28/19 Rx 16MG (8 tabs) in 24HOURS ergocalciferol (vitamin D2) 50,000 unit PO DIRECTED 01/28/19 01/28/19 History [Vitamin D2] Patient History Medical History Febrile illness Essential hypertension (Chronic) Vomiting and diarrhea (Acute) HLD (hyperlipidemia) (Chronic) GERD (gastroesophageal reflux disease) (Chronic) Hypothyroid (Chronic) Encounter for chemotherapy management DVT (deep venous thrombosis) (Chronic) Colon cancer metastasized to lung (Chronic 09/18/08) "Adenocarcinoma of the colon with lung metastasis diagnosed in 2007 Status post right lobectomy 07/10/2008 Status post colonoscopy and biopsy 09/18/2008 revealing the colon lesion. Status post resection. This was followed by chemotherapy. Status post left upper lobe wedge resection 08/24/2011 due to metastasis Status post stereotactic radiation therapy in 2011 Completed chemotherapy in 2014 Status post wedge resection with Dr. navarrete 2015 Status post hypo-fractionated radiation therapy in 2015 PET/CT 08/24/2017 revealing metabolic activity of the right hilum. Status post completion of radiation therapy 10/24/2017 utilizing VMAT. PET/CT May 29, 2018 persistent uptake in the right paratracheal mass and suspicious changes for progression. Plan for systemic chemotherapy with irinotecan and Erbitux" On 11/02/17 11:11 Meaghan Alves wrote "Adenocarcinoma of the colon with lung metastasis diagnosed in 2007 Status post right lobectomy 07/10/2008 Status post colonoscopy and biopsy 09/18/2008 revealing the colon lesion. Status post resection. This was followed by chemotherapy. Status post left upper lobe wedge resection 08/24/2011 due to metastasis Status post stereotactic radiation therapy in 2011 Completed chemotherapy in 2014 Status post wedge resection with Dr. navarrete 2016 Status post hypo-fractionated radiation therapy in 2015 PET/CT 08/24/2017 revealing metabolic activity of the right hilum. Status post completion of radiation therapy 10/24/2017 utilizing VMAT." On 09/13/17 09:28 Meaghan Alves wrote "Adenocarcinoma of the colon with lung metastasis diagnosed in 2007 Status post right lobectomy 07/10/2008 Status post colonoscopy and biopsy 09/18/2008 revealing the colon lesion. Status post resection. This was followed by chemotherapy. Status post left upper lobe wedge resection 08/24/2011 due to metastasis Status post stereotactic radiation therapy in 2011 Completed chemotherapy in 2014 Status post wedge resection with Dr. navarrete 2015 Status post hypo-fractionated radiation therapy in 2015 PET/CT 08/24/2017 revealing metabolic activity of the right hilum." Pulmonary embolism (Resolved) HLD (hyperlipidemia) History of radiation therapy Hx of gallstones Neutropenia Family History Other Family history non-contributory Social History Communication Ability: Effective Beliefs That Will Affect Care: None Current Living Situation: Spouse Feels Safe at Home: Yes Smoking Status: Never smoker Hx Alcohol Use: No Hx Substance Use: No Review of Systems Constitutional: + fever (last yesterday evening), + chills, + fatigue and + weakness Eyes: no worsening vision Ear, Nose, Mouth, Throat: no epistaxis and no bleeding gums Respiratory: no cough, no dyspnea and no hemoptysis Cardiovascular: no chest pain and no palpitations Gastrointestinal: + diarrhea/loose stools; no abdominal pain and no nausea Genitourinary (Female): no dysuria and no hematuria Integumentary: no rash and no bleeding lesions Neurologic: no headache(s) and no confusion Hematologic / Lymphatic: no easy bleeding and no easy bruising Physical Exam Vital Signs (Past 24 Hours): Last Vital Signs Temp 37.3 C 02/01/19 08:31 Pulse 106 H 02/01/19 13:45 Resp 20 02/01/19 08:31 BP 176/102 H 02/01/19 13:45 Pulse Ox 97 02/01/19 08:31 Constitutional: + ill appearing and + obese; no acute distress Eyes: sclerae not anicteric and + EOM not intact ENMT: external ear and nose normal, oropharynx normal Respiratory: normal respiratory effort, lungs clear to auscultation (anteriorly) Cardiovascular: RRR, no murmur, no edema Gastrointestinal (Abdomen): normal bowel sounds, soft, nontender, no hepatosplenomegaly Skin: no rashes, warm and dry Psychiatric: A+Ox3, euthymic affect Lymphatic: no cervical or axillary lymphadenopathy Results & Data Laboratory Results See HPI for summary of relevant labs
[2019-02-01] MEDS: ACETAMINOPHEN 325 MG TAB PO PRN (16:13)
[2019-02-01] MEDS: LOPERAMIDE HCL 2 MG CAP PO PRN (16:13)
[2019-02-01] MEDS: CYANOCOBALAMIN 500 MCG TABLET (VITAMIN B-12) PO SCH (20:35)
[2019-02-01] MEDS: SERTRALINE HCL 50 MG TABLET PO SCH (20:35)
[2019-02-02] MEDS: VANCOMYCIN HCL 1,250 MG in SODIUM CHLORIDE 0.9% 250 ML IV SCH ×3 (00:01→23:47)
--- NOTE | 2019-02-02 00:14 | Hospitalist Progress Note ---
Date of Service February 01, 2019 Assessment & Plan (1) Septicemia: Presented with persistent fevers in the setting of recent antineoplastic therapy for her stage 4 colon cancer. She was initially treated with broad-spectrum IV abx including cefepime and vancomycin, but given possibility of GI-related illness, her cefepime was then changed to Zosyn. She was treated empirically with Tamiflu despite a negative influenza PCR. This has now completed its course -With persistent coag negative Staphylococcus bacteremia on blood cultures 1 out of 2 sets each time and both from the port -Started on vancomycin lock therapy on 01/30, continues on IV vancomycin as well -IV Zosyn now discontinued now that cholecystitis ruled out Continues to spike fevers -Follow repeat blood cultures from 01/31 Other workup included: * cxr w/o obvious pneumonia and repeat chest x-ray again no obvious pneumonia, CT chest without pneumonia * gall bladder u/s without acute cholecystitis and repeat US today without acute israel despite worsening LFTs and abd pain * urine cx negative, repeat UA is lilkely contaminated despite dysuria * flu PCR negative (but see above re: tamiflu) * blood cx's as above * HIDA scan negative for acute cholecystitis * CT abdomen/pelvis no other obvious source of infection * Monospot negative, EBV and CMV titers pending * Hepatitis A, B, C all negative * Echocardiogram without obvious valvular vegetation Appreciate infectious disease consultation-most likely with infected port-trying to salvage port with lock therapy Will most likely need several weeks of IV vancomycin (2) Coagulase negative Staphylococcus bacteremia: Plan as above (3) Vomiting and diarrhea: continues with nausea but abdominal pain is resolved-unclear if from illness or her cetuximab Continues with loose stools -Discontinue p.o. magnesium as this could be worsening loose stools CT p.o. contrast could also be worsening her diarrhea at this point Stool culture pending Fecal leukocytes negative C. difficile negative Acute cholecystitis ruled out -Continue to follow -Can give Imodium as needed (4) Pancytopenia: Continues to worsening today, platelets down to 43, WBC down to 1.9, hem oglobin stable at 12.1 Received cetuximab on 01/25-appreciate oncology consultation-this drug does not usually cause cytopenias -More likely induced by her sepsis or the antibiotics themselves -Follow CBC -Hold aspirin and Eliquis today for platelets less than 50,000 -Transfuse as needed Stopping Zosyn as above but need to continue vancomycin -Appreciate oncology consultation (5) Colon cancer metastasized to lung: Followed by Dr. Ortiz, . s/p Erbitux, last chemo was 01/25/19. s/p multiple procedures on lungs for mets in the past (see PMH section of EMR for details). CT CHest with stable size lung mass on CT chest this admission (6) Hypomagnesemia: severe on admission with presenting level being 1.0, severe again with level 0.8 Likely secondary to persistent diarrhea not on diuretics does chronic PPI use contribute? renal wasting? Follow and replace with IV magnesium today (7) Hypocalcemia: Follow and repalce as needed-corrected Ca++ today just below normal 11/2018 vitamin D level was mildly low. doubt that this is the main issue causing low calcium. (8) Hypokalemia: Replaced, now normalized (9) Essential hypertension: Blood pressure is elevated at times but did not get her metoprolol this morning due to vomiting Cont beta kenia at reduced dose as BPs have been low-normal in face of suspected infection. -Has been having sinus tachycardia proven by ECG with rates in the 130s likely secondary to fever, dehydration, as well as reducing beta-kenia dose -continue IV fluids -Treat fevers (10) GERD (gastroesophageal reflux disease): PPI (11) Hypothyroid: Continue levothyroxine at home dose. TSH 2 months ago -- 3. (12) DVT (deep venous thrombosis): history of. Hold Eliquis today for platelets less than 50,000 (13) HLD (hyperlipidemia): -Continue to hold statin due to rising LFTs (14) Asthma: no issues at this time. continue inhaled steroid and albuterol prn. (15) Morbid obesity with BMI of 45.0-49.9, adult: BMI 49 (16) Elevated LFTs: LFTs continue to rise with normal T bili. AST 406 today, ALT 222. Hepatitis A, B, and C negative, Monospot negative CT scan of the liver without significant abnormality Right upper quadrant ultrasound without significant abnormality HIDA scan negative for acute cholecystitis Likely secondary either to sepsis or viral process or medication or antibiotic effect -Follow LFTs (17) DVT prophylaxis: eliquis-now on hold due to low platelets SCDs PT, OT evals Disposition-remain hospitalized until fevers improve and following repeat blood cultures Subjective Patient was improved earlier today but then spiked another fever this afternoon. Reports continued nausea and she had vomiting during her today which was ended up being negative. She reports her abdominal pain is improved. She continues to have multiple loose watery bowel movements. Continues to have dysuria despite Pyridium Review of Systems All systems reviewed & are unremarkable except as noted in HPI & below Physical Exam Vital Signs (Past 24 Hours): Last Vital Signs Temp 37.2 C 02/01/19 23:00 Pulse 102 H 02/01/19 23:00 Resp 20 02/01/19 23:00 BP 133/76 02/01/19 23:00 Pulse Ox 97 02/01/19 23:00 Constitutional: + ill appearing (but nontoxic) and + morbidly obese; no acute distress Eyes: + anicteric sclerae ENMT: Mouth: no oral mucosal abnormality (MMM today) Respiratory: normal respiratory effort Auscultation: + wheezes (hint of end-exp wheeze b/l); no crackles Cardiovascular: Rate/Rhythm: regular rhythm and + tachycardic; + abnormal rate Heart Sounds: normal S1 and normal S2; no murmur Vessels: no JVD Gastrointestinal (Abdomen): normal bowel sounds, soft, nontender, no hepatosplenomegaly Percussion/Palpation: + hernia (ventral) Musculoskeletal: Head/Neck/Chest: normocephalic Psychiatric: A+Ox3, euthymic affect Results & Data Laboratory Results 02/01/19 02/01/19 02/01/19 Range/Units 12:49 12:49 10:41 WBC (4.8-10.8) K/uL RBC (4.2-5.4) M/uL Hgb (12.0-16.0) g/dL Hct (37-47) % MCV (80-100) fL MCH (25-34) pg MCHC (32-36) g/dL RDW Std Deviation (36.4-46.3) fL RDW Coeff of Marcell (11.5-14.5) % Plt Count (130-400) K/uL MPV (7.4-10.4) fL Immature Gran % (Auto) % Neut % (Auto) % Lymph % (Auto) % [place] % (Auto) % Eos % (Auto) % Baso % (Auto) % Immature Gran # (Auto) (0.00-0.02) K/uL Neut # (Auto) (1.4-6.5) K/uL Lymph # (Auto) (1.2-3.4) K/uL [place] # (Auto) (0.11-0.59) K/uL Eos # (Auto) (0-0.5) K/uL Baso # (Auto) (0-0.2) K/uL Sodium (136-145) mmol/L Potassium (3.5-5.1) mmol/L Chloride (98-107) mmol/L Carbon Dioxide (21-32) mmol/L Anion Gap (3-11) BUN (7-18) mg/dl Creatinine (0.6-1.2) mg/dl Est Cr Clr Drug Dosing ml/min Est GFR ( Amer) Est GFR (Non-Af Amer) BUN/Creatinine Ratio (10-20) Glucose (70-99) mg/dl Calcium (8.5-10.1) mg/dl Magnesium (1.8-2.4) mg/dl Total Bilirubin (0.2-1) mg/dl Direct Bilirubin (0-0.2) mg/dl AST (15-37) U/L ALT (12-78) U/L Alkaline Phosphatase (45-117) U/L Total Protein (6.4-8.2) gm/dl Albumin (3.4-5.0) gm/dl Vancomycin Trough 15.9 (See Comment) mcg/ml CMV IgG Ab Pending CMV IgM Ab Pending EBV Capsid Ag IgG Ab Pending EBV Capsid Ag IgM Ab Pending EBV EA Restrict+Diffuse Pending EBV Nuclear Antigen Ab Pending Hepatitis A IgM Ab (NON-REACTIVE) Hep B Core IgM Ab (NON-REACTIVE) Monoscreen Negative (Negative) 02/01/19 02/01/19 01/31/19 Range/Units 07:50 07:50 10:49 WBC 1.92 L (4.8-10.8) K/uL RBC 3.98 L (4.2-5.4) M/uL Hgb 12.1 (12.0-16.0) g/dL Hct 37.6 (37-47) % MCV 94.5 (80-100) fL MCH 30.4 (25-34) pg MCHC 32.2 (32-36) g/dL RDW Std Deviation 47.1 H (36.4-46.3) fL RDW Coeff of Marcell 13.6 (11.5-14.5) % Plt Count 43 L (130-400) K/uL MPV 10.4 (7.4-10.4) fL Immature Gran % (Auto) 0.0 % Neut % (Auto) 62.5 % Lymph % (Auto) 27.1 % [place] % (Auto) 9.9 % Eos % (Auto) 0.0 % Baso % (Auto) 0.5 % Immature Gran # (Auto) 0.00 (0.00-0.02) K/uL Neut # (Auto) 1.20 L (1.4-6.5) K/uL Lymph # (Auto) 0.52 L (1.2-3.4) K/uL [place] # (Auto) 0.19 (0.11-0.59) K/uL Eos # (Auto) 0.00 (0-0.5) K/uL Baso # (Auto) 0.01 (0-0.2) K/uL Sodium 140 (136-145) mmol/L Potassium 4.0 (3.5-5.1) mmol/L Chloride 111 H (98-107) mmol/L Carbon Dioxide 22 (21-32) mmol/L Anion Gap 7.0 (3-11) BUN 7 (7-18) mg/dl Creatinine 0.97 (0.6-1.2) mg/dl Est Cr Clr Drug Dosing 76.5 ml/min Est GFR ( Amer) 70.5 Est GFR (Non-Af Amer) 60.9 BUN/Creatinine Ratio 7.2 L (10-20) Glucose 91 (70-99) mg/dl Calcium 7.1 L (8.5-10.1) mg/dl Magnesium 0.9 L* (1.8-2.4) mg/dl Total Bilirubin 0.3 (0.2-1) mg/dl Direct Bilirubin < 0.1 (0-0.2) mg/dl AST 406 H (15-37) U/L ALT 222 H (12-78) U/L Alkaline Phosphatase 88 (45-117) U/L Total Protein 5.9 L (6.4-8.2) gm/dl Albumin 2.5 L (3.4-5.0) gm/dl Vancomycin Trough (See Comment) mcg/ml CMV IgG Ab CMV IgM Ab EBV Capsid Ag IgG Ab EBV Capsid Ag IgM Ab EBV EA Restrict+Diffuse EBV Nuclear Antigen Ab Hepatitis A IgM Ab NON-REACTIVE (NON-REACTIVE) Hep B Core IgM Ab NON-REACTIVE (NON-REACTIVE) Monoscreen (Negative) Repeat blood cultures have no growth to date Stool culture-pending C. difficile stool antigen negative Diagnostic Findings HIDA scan-negative for acute cholecystitis (1) DVT (deep venous thrombosis) Affected thrombotic vein of extremity: unspecified vein of extremity Chr onicity: unspecified DVT location: lower extremity Laterality: unspecified l aterality Qualified Code(s): I82.409 - Acute embolism and thrombosis of unspecified deep veins of unspecified lower extremity (2) HLD (hyperlipidemia) Hyperlipidemia type: mixed hyperlipidemia Qualified Code(s): E78.2 - Mixed hyperlipidemia (3) Hypothyroid Hypothyroidism type: acquired Qualified Code(s): E03.9 - Hypothyroidism, unspecified (4) GERD (gastroesophageal reflux disease) Esophagitis presence: esophagitis presence not specified Qualified Code(s): K21.9 - Gastro-esophageal reflux disease without esophagitis (5) Asthma Asthma complication type: uncomplicated Asthma persistence: intermittent Asthma severity: mild Qualified Code(s): J45.20 - Mild intermittent asthma, uncomplicated
[2019-02-02] MEDS: ONDANSETRON INJ 2 MG/ML 2 ML VIAL IV PRN ×3 (00:51→23:39)
[2019-02-02] MEDS: LEVALBUTEROL HCL 1.25 MG/3 ML NEB NEB SCH ×2 (02:26→07:10)
[2019-02-02] MEDS: ACETAMINOPHEN 325 MG TAB PO PRN ×3 (02:46→19:38)
[2019-02-02] MEDS: NSS + 20MEQ KCL 20 MEQ/1,000 ML BAG IV SCH (04:33)
[2019-02-02 07:36] LABS: Hematocrit (blood only) 34.2 % (37-47); Hemoglobin 11.3 g/dL (12.0-16.0); Mean Platelet Volume 10.3 fL (7.4-10.4); Platelet Count 37 K/uL (130-400); RDW Coefficient of Variation 13.6 % (11.5-14.5); RDW Standard Deviation 46.9 fL (36.4-46.3); Red Blood Count 3.64 M/uL (4.2-5.4); White Blood Count 1.47 K/uL (4.8-10.8)
[2019-02-02] MEDS: LEVOTHYROXINE SODIUM 125 MCG TABLET PO SCH (07:54)
[2019-02-02] MEDS: LOPERAMIDE HCL 2 MG CAP PO PRN ×4 (07:59→23:39)
--- NOTE | 2019-02-02 08:03 | Medical Student Progress Note ---
Date of Service February 02, 2019 Assessment & Plan (1) Hypokalemia: Replaced, now normalized (2) Hypocalcemia: Follow and repalce as needed-corrected Ca++ today just below normal 11/2018 vitamin D level was mildly low. doubt that this is the main issue causing low calcium. (3) Hypomagnesemia: severe on admission with presenting level being 1 due to vomiting/diarrhea at home? not on diuretics at home. does chronic PPI use contribute? renal wasting? s/p 4 grams of mag on hospital day #1. Today's reading was 0.9.., Replace with Mg (monitor as it may have contributed to diarrhea). fixed low K and low Ca as well. (4) Asthma: no issues at this time. continue inhaled steroid and albuterol prn. Asthma complication type: uncomplicated Asthma persistence: intermittent Asthma severity: mild Qualified Code(s): J45.20 - Mild intermittent asthma, uncomplicated (5) Essential hypertension: Not well controlled at the moment Cont beta kenia at reduced dose as BPs have been low-normal in face of suspected infection. Has been having sinus tachycardia proven by ECG with rates in the 130s likely secondary to fever, dehydration, as well as reducing beta-kenia dose Maintain metoprolol at current dose Cont IV fluids today Treat fevers (6) Vomiting and diarrhea: continues with nausea but abdominal pain is resolved-unclear if from i llness or her cetuximab Continues with loose stools Discontinue p.o. magnesium as this could be worsening loose stools Stool culture positive for yeast Fecal leukocytes negative C. difficile negative Acute cholecystitis ruled out Continue to follow Imodium PRN (7) HLD (hyperlipidemia): -Continue to hold statin due to rising LFTs Hyperlipidemia type: mixed hyperlipidemia Qualified Code(s): E78.2 - Mixed hyperlipidemia (8) Positive blood culture: COag neg Staph and repeat cxs again with GPC from port site -repeat BCxs again -continue Vanco IV and lock therapy (9) GERD (gastroesophageal reflux disease): PPI Esophagitis presence: esophagitis presence not specified Qualified Code(s): K21.9 - Gastro-esophageal reflux disease without esophagitis (10) Hypothyroid: Continue levothyroxine at home dose. TSH 2 months ago -- 3. Hypothyroidism type: acquired Qualified Code(s): E03.9 - Hypothyroidism, unspecified (11) Encounter for chemotherapy management: (12) DVT (deep venous thrombosis): history of DVT hold Eliquis- platelet count dropped too low Affected thrombotic vein of extremity: unspecified vein of extremity Chronicity: unspecified DVT location: lower extremity Laterality: unspecified laterality Qualified Code(s): I82.409 - Acute embolism and thrombosis of unspecified deep veins of unspecified lower extremity (13) Morbid obesity with BMI of 45.0-49.9, adult: BMI 49 (14) Septicemia: (15) Elevated LFTs: (16) Coagulase negative Staphylococcus bacteremia: (17) DVT prophylaxis: (18) Colon cancer metastasized to lung: (19) Sacral wound: (1) Hypokalemia: (2) Hypocalcemia: (3) Hypomagnesemia: (4) Asthma: Asthma complication type: uncomplicated Asthma persistence: intermittent Asthma severity: mild Qualified Code(s): J45.20 - Mild intermittent asthma, uncomplicated (5) Essential hypertension: (6) Vomiting and diarrhea: (7) HLD (hyperlipidemia): Hyperlipidemia type: mixed hyperlipidemia Qualified Code(s): E78.2 - Mixed hyperlipidemia (8) Positive blood culture: (9) GERD (gastroesophageal reflux disease): Esophagitis presence: esophagitis presence not specified Qualified Code(s): K21.9 - Gastro-esophageal reflux disease without esophagitis (10) Hypothyroid: Hypothyroidism type: acquired Qualified Code(s): E03.9 - Hypothyroidism, unspecified (11) Encounter for chemotherapy management: (12) DVT (deep venous thrombosis): Affected thrombotic vein of extremity: unspecified vein of extremity Chronicity: unspecified DVT location: lower extremity Laterality: unspecified laterality Qualified Code(s): I82.409 - Acute embolism and thrombosis of unspecified deep veins of unspecified lower extremity (13) Morbid obesity with BMI of 45.0-49.9, adult: (14) Septicemia: (15) Elevated LFTs: (16) Coagulase negative Staphylococcus bacteremia: (17) DVT prophylaxis: (18) Colon cancer metastasized to lung: (19) Sacral wound: Subjective Has had intermittent fevers. She says she feels worse than yesterday. + Nausea, no vomiting. more SOB than baseline Hasn't eaten much. Currently on IVF Had numerous bowel mov't overnight, yellowish diarrhea in nature. Taking imdoium after each episode. Still has dysuria. Reports her abdominal pain now exists only when defecating."butt hurts" She has not had any episodes of light-headedness. No headache. No cough Physical Exam Vital Signs (Past 24 Hours): Last Vital Signs Temp 37.4 C 02/02/19 04:53 Pulse 105 H 02/02/19 07:10 Resp 18 02/02/19 07:10 BP 163/91 H 02/02/19 03:40 Pulse Ox 96 02/02/19 07:10
[2019-02-02 08:19] LABS: Albumin Level 2.2 gm/dl (3.4-5.0); BUN Creatinine Ratio 7.9 (10-20); Bilirubin Direct 0.1 mg/dl (0-0.2); Bilirubin,Total 0.3 mg/dl (0.2-1); Calcium 6.5 mg/dl (8.5-10.1); Creatinine Clr Calc Pharmacy 93.9 ml/min; Est GFR (African American) 91.8; Est GFR (Non-African American) 79.2; Potassium 4.1 mmol/L (3.5-5.1); Total Protein 5.5 gm/dl (6.4-8.2)
[2019-02-02 08:23] LABS: Giant Platelets 1+
[2019-02-02 08:32] LABS: ALC (manual) 0.67 K/uL (1.2-3.4); Lymphocytes # (manual) 0.45 K/uL (1.2-3.4); Lymphocytes % (manual) 30.7 %; Monocytes # (manual) 0.08 K/uL (0.11-0.59); Monocytes % (manual) 5.3 %; Neutrophils % (manual) 42.1 %; Reactive Lymphocytes # (manual) 0.22 K/uL
[2019-02-02] MEDS: MULTIVITAMIN TAB PO SCH (09:47)
[2019-02-02] MEDS: PANTOprazole 40 MG TAB PO SCH (09:47)
[2019-02-02] MEDS: METOPROLOL TARTRATE 25 MG TAB PO SCH ×2 (09:47→20:24)
[2019-02-02] MEDS: POTASSIUM CHLORIDE 20 MEQ TABCR PO SCH (09:47)
[2019-02-02] MEDS: BECLOMETHASONE DIP HFA 80 MCG 8.7G INH INH SCH ×2 (09:48→20:24)
[2019-02-02] MEDS ORDERED: CASPOFUNGIN 70 MG in SODIUM CHLORIDE 0.9% 250 ML IV STA (10:28)
[2019-02-02] MEDS ORDERED: [UNRECOGNIZED DRUG - OTHER] PRN (10:32)
[2019-02-02] MEDS: MAGNESIUM SULFATE / D5W 1 GM/100 ML BAG IV SCH ×5 (12:20→22:47)
[2019-02-02] MEDS ORDERED: LEVALBUTEROL HCL 1.25 MG/3 ML NEB NEB PRN (13:22)
[2019-02-02] MEDS: HEPARIN SODIUM IV SCH (13:56)
[2019-02-02] MEDS: VANCOMYCIN HCL IV SCH (13:56)
[2019-02-02] MEDS: HEPARIN 100 UNIT/ML 5ML FLUSH FLUSH PRN (13:57)
--- NOTE | 2019-02-02 14:50 | Infectious Disease Progress Nt ---
Date of Service February 02, 2019 Assessment & Plan (1) Coagulase negative Staphylococcus bacteremia: 68-year-old female with metastatic colon cancer now with fever with coagulase-negative staph bacteremia in the setting of indwelling a port. Despite lack of local symptoms, port infection still a possibility, so would continue patient on vancomycin with vancomycin lock therapy. Will likely need at least 2 weeks of IV antibiotics. Awaiting further studies for possible viral etiology. Caspofungin added for possible Johana infection. Will follow. Subjective Patient seen in follow-up for fever, coagulase-negative staph bacteremia. Patient now feeling somewhat better, still having intermittent fevers. Offers no new specific complaints. Stool cultures growing Johana. Review of Systems All systems reviewed & are unremarkable except as noted in HPI & below Physical Exam Vital Signs (Past 24 Hours): Last Vital Signs Temp 37.2 C 02/02/19 11:48 Pulse 98 H 02/02/19 11:48 Resp 18 02/02/19 11:48 BP 135/77 02/02/19 11:48 Pulse Ox 93 02/02/19 11:48 Constitutional: WD/WN, vitals as above + morbidly obese and comfortable; no acute distress Eyes: PERRL, conjunctivae normal, anicteric sclerae ENMT: external ear and nose normal, oropharynx normal Neck: trachea midline, no thyromegaly neck nontender Respiratory: normal respiratory effort, lungs clear to auscultation normal percussion; does not use accessory muscles Cardiovascular: Rate/Rhythm: regular rate and regular rhythm Heart Sounds: normal S1 and normal S2; no gallop, no murmur and no cardiac rub Vessels: normal peripheral pulses; no JVD Gastrointestinal (Abdomen): Inspection/Auscultation: abdomen normal to inspection and normal bowel sounds Percussion/Palpation: + abdomen tender; no hepatosplenomegaly and no abdominal mass Musculoskeletal: no cyanosis or clubbing, extremities motor strength 5/5 Spine: thoracic spine normal to inspection and lumbar spine normal to inspection; no cervical spinal tenderness Skin: no rashes, warm and dry normal turgor; no lesions Neurologic: patellar DTR's 2+ bilat, sensation intact no focal motor deficits Psychiatric: A+Ox3, euthymic affect Orientation: cooperative Lymphatic: no cervical or axillary lymphadenopathy no inguinal lymphadenopathy Results & Data Diagnostic Findings Microbiology 01/29/19 19:05 Blood Blood Culture - Final Coag neg staph not lugdunensis 01/29/19 18:42 Blood Blood Culture - Final No growth 01/31/19 12:31 Stool Shiga Toxin Test - Final 01/31/19 12:31 Stool Stool Culture - Final Johana albicans 01/28/19 09:31 Blood Blood Culture - Final Coag neg staph not lugdunensis Coag neg staph not lugdunensis#2 01/28/19 09:21 Blood Blood Culture - Final No growth 01/31/19 08:31 Blood Blood Culture - Preliminary No growth to date. 01/31/19 08:23 Blood Blood Culture - Preliminary No growth to date. 01/30/19 20:20 Urine,Clean Catch Urine Culture - Final No growth - less than 1,000 colonies/mL. 01/31/19 12:31 Stool WBC Smear - Final 01/28/19 10:40 Urine,Clean Catch Urine Culture - Final More than three types of organisms present, all low counts mixed probable skin liliya. No further identifications or sensitivities to follow.
--- NOTE | 2019-02-02 16:42 | Hospitalist Progress Note ---
Date of Service February 02, 2019 Assessment & Plan (1) Septicemia: Presented with persistent fevers in the setting of recent antineoplastic therapy for her stage 4 colon cancer. She was initially treated with broad-spectrum IV abx including cefepime and vancomycin, but given possibility of GI-related illness, her cefepime was then changed to Zosyn. She was treated empirically with Tamiflu despite a negative influenza PCR. This has now completed its course -With coag negative Staphylococcus bacteremia on blood cultures 1 out of 2 sets each time on 01/28 and 01/29 (confirmed from the port site) -Started on vancomycin lock therapy on 01/30, continues on IV vancomycin as well -IV Zosyn now discontinued now that cholecystitis ruled out Continues to spike fevers now times 5 days -Follow repeat blood cultures from 01/31-no growth to date Other workup included: * cxr w/o obvious pneumonia and repeat chest x-ray again no obvious pneumonia, CT chest without pneumonia * gall bladder u/s without acute cholecystitis and repeat US several days later of gallbladder without acute israel despite worsening LFTs and abd pain * urine cx negative, repeat UA is likely contaminated despite dysuria * flu PCR negative (but see above re: tamiflu) * blood cx's as above * HIDA scan negative for acute cholecystitis * CT abdomen/pelvis no other obvious source of infection * Monospot negative, EBV and CMV titers pending * Hepatitis A, B, C all negative * Echocardiogram without obvious valvular vegetation With Johana albicans in the stool-discussed with ID-will begin systemic treatment with IV caspofungin in case of fungemia -Start IV caspofungin on 02/02 Appreciate infectious disease consultation-most likely with infected port-trying to salvage port with lock therapy Will most likely need several weeks of IV vancomycin (2) Coagulase negative Staphylococcus bacteremia: Plan as above (3) Vomiting and diarrhea: continues with nausea but abdominal pain is resolved-unclear if from illness or her cetuximab Continues with loose stools -Discontinued p.o. magnesium as this could be worsening loose stools CT p.o. contrast from 01/31 could also have contributed to her diarrhea Stool culture pending Fecal leukocytes negative C. difficile negative Acute cholecystitis ruled out -Continue to follow -Can give Imodium as needed (4) Pancytopenia: Continues to worsen, platelets down to 37, WBC down to 1.47, hemoglobin down to 11.3 Received cetuximab on 2/28-appreciate oncology consultation-this drug does not usually cause cytopenias but could -More likely pancytopenia induced by her sepsis or from the antibiotics -Follow CBC -Holding aspirin and Eliquis since 02/01 for platelets less than 50,000 -Transfuse as needed Have since discontinued the Zosyn and cefepime, but need to continue vancomycin -Appreciate oncology consultation -Flow cytometry pending (5) Colon cancer metastasized to lung: Followed by Dr. Ortiz, . s/p Erbitux, last chemo was 01/25/19. s/p multiple procedures on lungs for mets in the past (see PMH section of EMR for details). CT CHest with stable size lung mass on CT chest this admission (6) Hypomagnesemia: severe on admission with presenting level being 1.0, severe again with level 0.9 yesterday and again at 1.0 today Likely secondary to persistent diarrhea not on diuretics does chronic PPI use contribute?-Consider discontinuing PPI renal wasting? Follow and replace with IV magnesium 4 g this morning, repeat magnesium later in the day was improved to 1.7 -Give another 2 g of IV magnesium now -Follow magnesium levels in the morning (7) Hypocalcemia: Follow and repalce as needed-corrected Ca++ today lower at 7.94 11/2018 vitamin D level was mildly low. doubt that this is the main issue causing low calcium. -Replace with IV calcium gluconate 1 g today -Follow BMP in the morning (8) Hypokalemia: Replaced, continues to be normal -Follow BMP (9) Essential hypertension: Blood pressure remains elevated at times Cont beta kenia which was reduced in dosing early on due to low blood pressures-I feel she can have her dose increased again back to 50 mg twice daily -Has been having sinus tachycardia proven by ECG with rates in the 130s likely secondary to fever, dehydration, as well as reducing beta-kenia dose -DC IV fluids today -Treat fevers (10) GERD (gastroesophageal reflux disease): PPI but consider discontinuing due to low magnesium (11) Hypothyroid: Continue levothyroxine at home dose. TSH 2 months ago -- 3. (12) DVT (deep venous thrombosis): history of. Continue holding Eliquis today for platelets less than 50,000 (13) HLD (hyperlipidemia): -Continue to hold statin due to rising LFTs (14) Asthma: With wheezing today which improved with nebulizers continue inhaled steroid and albuterol prn. (15) Morbid obesity with BMI of 45.0-49.9, adult: BMI 49 (16) Elevated LFTs: LFTs continue are stable to mildly increased today with normal T bili. AST 432 today, ALT 214. Hepatitis A, B, and C negative, Monospot negative CT scan of the liver without significant abnormality Right upper quadrant ultrasound without significant abnormality HIDA scan negative for acute cholecystitis Likely secondary either to sepsis or viral process or medication or antibiotic effect -Follow LFTs (17) Sacral wound: Wound on sacrum is a skin tear and likely due to irritation from frequent stooling as well as possible pressure ulcer Wound care following Dressing changes every 3 days or as needed (18) DVT prophylaxis: eliquis-now on hold due to low platelets SCDs added, continue FIFI hose PT, OT evals Disposition-remain hospitalized until fevers improve and following repeat blood cultures Subjective Patient reports her nausea is resolved at this time, had 2 loose bowel movements today but probably 6 overall in the last 24 hours. Has a sore bottom and was found to have an open wound in the gluteal cleft. Denies abdominal pain. Denies chest pain. She was feeling short of breath and wheezing which significantly improved with an albuterol nebulizer treatment today. Review of Systems All systems reviewed & are unremarkable except as noted in HPI & below Physical Exam Vital Signs (Past 24 Hours): Last Vital Signs Temp 36.7 C 02/02/19 15:19 Pulse 112 H 02/02/19 15:19 Resp 22 02/02/19 15:19 BP 121/76 02/02/19 15:19 Pulse Ox 98 02/02/19 15:19 Constitutional: + ill appearing (but nontoxic) and + morbidly obese; no acute distress Eyes: + anicteric sclerae ENMT: Ears: no hearing impairment Mouth: no oral mucosal abnormality Respiratory: normal respiratory effort Auscultation: + wheezes (Diffuse expiratory); no crackles, no rales and no rhonchi Cardiovascular: Rate/Rhythm: regular rhythm and + tachycardic; + abnormal rate Heart Sounds: normal S1 and normal S2; no murmur Vessels: no JVD Gastrointestinal (Abdomen): normal bowel sounds, soft, nontender, no hepatosplenomegaly Percussion/Palpation: + hernia (ventral) Musculoskeletal: Head/Neck/Chest: normocephalic Skin: no rashes, warm and dry (Port in right anterior chest wall with minimal surrounding erythema) Psychiatric: A+Ox3, euthymic affect Results & Data Laboratory Results 02/02/19 02/02/19 02/02/19 Range/Units 17:59 07:08 07:08 WBC 1.47 L (4.8-10.8) K/uL RBC 3.64 L (4.2-5.4) M/uL Hgb 11.3 L (12.0-16.0) g/dL Hct 34.2 L (37-47) % MCV 94.0 (80-100) fL MCH 31.0 (25-34) pg MCHC 33.0 (32-36) g/dL RDW Std Deviation 46.9 H (36.4-46.3) fL RDW Coeff of Marcell 13.6 (11.5-14.5) % Plt Count 37 L (130-400) K/uL MPV 10.3 (7.4-10.4) fL Neutrophils % (Manual) 42.1 % Lymphocytes % (Manual) 30.7 % Reactive Lymphs % (Man) 14.9 % Monocytes % (Manual) 5.3 % Plasma Cell % (Manual) 7.0 % Neutrophils # (Manual) 0.62 L (1.4-6.5) K/uL Total Absolute Neuts 0.62 L* (1.4-6.5) K/uL Lymphocytes # (Manual) 0.45 L (1.2-3.4) K/uL Reactive Lymphs # 0.22 K/uL Total Abs Lymphocytes 0.67 L (1.2-3.4) K/uL Monocytes # (Manual) 0.08 L (0.11-0.59) K/uL Plasma Cell # (Manual) 0.10 H (0-0) K/uL Blood Smear Review Giant Platelets 1+ Sodium (136-145) mmol/L Potassium (3.5-5.1) mmol/L Chloride (98-107) mmol/L Carbon Dioxide (21-32) mmol/L Anion Gap (3-11) BUN (7-18) mg/dl Creatinine (0.6-1.2) mg/dl Est Cr Clr Drug Dosing ml/min Est GFR ( Amer) Est GFR (Non-Af Amer) BUN/Creatinine Ratio (10-20) Glucose (70-99) mg/dl Calcium (8.5-10.1) mg/dl Magnesium 1.7 L (1.8-2.4) mg/dl Total Bilirubin (0.2-1) mg/dl Direct Bilirubin (0-0.2) mg/dl AST (15-37) U/L ALT (12-78) U/L Alkaline Phosphatase (45-117) U/L Total Protein (6.4-8.2) gm/dl Albumin (3.4-5.0) gm/dl Flow Cytometry Comment Pending [facility] [place] Genetic Test Pending 02/02/19 Range/Units 07:08 WBC (4.8-10.8) K/uL RBC (4.2-5.4) M/uL Hgb (12.0-16.0) g/dL Hct (37-47) % MCV (80-100) fL MCH (25-34) pg MCHC (32-36) g/dL RDW Std Deviation (36.4-46.3) fL RDW Coeff of Marcell (11.5-14.5) % Plt Count (130-400) K/uL MPV (7.4-10.4) fL Neutrophils % (Manual) % Lymphocytes % (Manual) % Reactive Lymphs % (Man) % Monocytes % (Manual) % Plasma Cell % (Manual) % Neutrophils # (Manual) (1.4-6.5) K/uL Total Absolute Neuts (1.4-6.5) K/uL Lymphocytes # (Manual) (1.2-3.4) K/uL Reactive Lymphs # K/uL Total Abs Lymphocytes (1.2-3.4) K/uL Monocytes # (Manual) (0.11-0.59) K/uL Plasma Cell # (Manual) (0-0) K/uL Blood Smear Review Giant Platelets Sodium 137 (136-145) mmol/L Potassium 4.1 (3.5-5.1) mmol/L Chloride 110 H (98-107) mmol/L Carbon Dioxide 22 (21-32) mmol/L Anion Gap 5.0 (3-11) BUN 6 L (7-18) mg/dl Creatinine 0.78 (0.6-1.2) mg/dl Est Cr Clr Drug Dosing 93.9 ml/min Est GFR ( Amer) 91.8 Est GFR (Non-Af Amer) 79.2 BUN/Creatinine Ratio 7.9 L (10-20) Glucose 79 (70-99) mg/dl Calcium 6.5 L (8.5-10.1) mg/dl Magnesium 1.0 L (1.8-2.4) mg/dl Total Bilirubin 0.3 (0.2-1) mg/dl Direct Bilirubin 0.1 (0-0.2) mg/dl AST 432 H (15-37) U/L ALT 214 H (12-78) U/L Alkaline Phosphatase 94 (45-117) U/L Total Protein 5.5 L (6.4-8.2) gm/dl Albumin 2.2 L (3.4-5.0) gm/dl Flow Cytometry Comment Misc Genetic Test (1) DVT (deep venous thrombosis) Affected thrombotic vein of extremity: unspecified vein of extremity Chronicity: unspecified DVT location: lower extremity Laterality: unspecified laterality Qualified Code(s): I82.409 - Acute embolism and thrombosis of unspecified deep veins of unspecified lower extremity (2) HLD (hyperlipidemia) Hyperlipidemia type: mixed hyperlipidemia Qualified Code(s): E78.2 - Mixed hyperlipidemia (3) Hypothyroid Hypothyroidism type: acquired Qualified Code(s): E03.9 - Hypothyroidism, u nspecified (4) GERD (gastroesophageal reflux disease) Esophagitis presence: esophagitis presence not specified Qualified Code(s): K21.9 - Gastro-esophageal reflux disease without esophagitis (5) Asthma Asthma complication type: uncomplicated Asthma persistence: intermittent Asthma severity: mild Qualified Code(s): J45.20 - Mild intermittent asthma, uncomplicated
[2019-02-02] MEDS: CYANOCOBALAMIN 500 MCG TABLET (VITAMIN B-12) PO SCH (20:24)
[2019-02-02] MEDS: SERTRALINE HCL 50 MG TABLET PO SCH (20:25)
[2019-02-02] MEDS ORDERED: CALCIUM GLUCONATE 10% 1,000 MG in SODIUM CHLORIDE 0.9% 50 ML IV ONE (22:45)
[2019-02-03] MEDS: MAGNESIUM SULFATE / D5W 1 GM/100 ML BAG IV SCH ×4 (00:02→13:15)
[2019-02-03] MEDS: VANCOMYCIN HCL 1,250 MG in SODIUM CHLORIDE 0.9% 250 ML IV SCH ×3 (00:02→23:09)
[2019-02-03] MEDS: LEVOTHYROXINE SODIUM 125 MCG TABLET PO SCH (06:37)
[2019-02-03] MEDS: NSS + 20MEQ KCL 20 MEQ/1,000 ML BAG IV SCH (08:03)
[2019-02-03] MEDS: ONDANSETRON INJ 2 MG/ML 2 ML VIAL IV PRN ×2 (08:04→21:52)
[2019-02-03 08:46] LABS: Hematocrit (blood only) 35.3 % (37-47); Hemoglobin 11.5 g/dL (12.0-16.0); Mean Corpuscular Hgb Conc 32.6 g/dL (32-36); Mean Corpuscular Volume 93.9 fL (80-100); RDW Coefficient of Variation 13.8 % (11.5-14.5); RDW Standard Deviation 47.6 fL (36.4-46.3); Red Blood Count 3.76 M/uL (4.2-5.4); White Blood Count 2.03 K/uL (4.8-10.8)
[2019-02-03 08:52] LABS: Mean Platelet Volume 10.3 fL (7.4-10.4); Platelet Count 39 K/uL (130-400)
[2019-02-03 09:21] LABS: Calcium 7.5 mg/dl (8.5-10.1); Creatinine Clr Calc Pharmacy 107.7 ml/min; Est GFR (African American) 105.6; Est GFR (Non-African American) 91.2; Magnesium 1.5 mg/dl (1.8-2.4); Phosphorus 1.7 mg/dl (2.5-4.9)
[2019-02-03] MEDS: PANTOprazole 40 MG TAB PO SCH (09:25)
[2019-02-03] MEDS: MULTIVITAMIN TAB PO SCH (09:25)
[2019-02-03] MEDS: POTASSIUM CHLORIDE 20 MEQ TABCR PO SCH (09:26)
[2019-02-03] MEDS: BECLOMETHASONE DIP HFA 80 MCG 8.7G INH INH SCH ×2 (09:26→21:11)
[2019-02-03] MEDS ORDERED: POTASSIUM PHOS 3 MMOL/1 ML INFUSION IV STA (09:59)
[2019-02-03 10:04] LABS: Toxic Vacuolation 1+
[2019-02-03] MEDS: CASPOFUNGIN 35 MG in SODIUM CHLORIDE 0.9% 250 ML IV SCH (10:08)
[2019-02-03] MEDS: METOPROLOL TARTRATE 50 MG TAB PO SCH ×2 (10:08→21:14)
[2019-02-03 10:17] LABS: ALC (manual) 0.92 K/uL (1.2-3.4); Lymphocytes # (manual) 0.92 K/uL (1.2-3.4); Lymphocytes % (manual) 45.1 %; Monocytes # (manual) 0.02 K/uL (0.11-0.59); Monocytes % (manual) 0.9 %; Neutrophils % (manual) 46.9 %; Plasma Cells # (manual) 0.14 K/uL (0-0); Plasma Cells % (manual) 7.1 %
[2019-02-03] MEDS ORDERED: POTASSIUM PHOSPHATE 15 MMOL in SODIUM CHLORIDE 0.9% 250 ML IV ONE (10:30)
[2019-02-03] MEDS ORDERED: VANCOMYCIN TROUGH ONE (10:30)
[2019-02-03 10:44] LABS: Alanine Aminotransferase 200 U/L (12-78); Albumin Level 2.2 gm/dl (3.4-5.0); Alkaline Phosphatase 113 U/L (45-117); Aspartate Aminotransferase 360 U/L (15-37); Bilirubin Direct < 0.1 mg/dl (0-0.2); Bilirubin,Total 0.3 mg/dl (0.2-1); Total Protein 5.8 gm/dl (6.4-8.2)
[2019-02-03] MEDS ORDERED: ALUMINUM/MAGNESIUM SUSP 30 ML UDC PO STA (12:23)
--- NOTE | 2019-02-03 12:37 | Hematology/Oncology Prog Note ---
Date of Service February 03, 2019 Assessment & Plan (1) Pancytopenia: Her counts have fallen further, though they are up slightly today. She remains intermittently febrile and the source is not totally clear. Her viral serologies are still pending. She also had a jeremy in her stool and is on Ca spofungin for that. CBC from yesterday identified some circulating plasma cells. This may be due to her overall low counts or as a response to infection. It would be unusual for her to suddenly develop a plasma cell disorder, though that remains in the differential. Her blood was sent for flow cytometry, so we will see those results next week. If the thrombocytopenia was related to antibiotics, we should start to see them improve over the next few days. We will hold on her next dose of Cetuximab next week while we sort all these issues out. Present on Admission?: Yes Subjective Ms. Bee is feeling a little better, though she had another fever overnight. Her energy remains low. Her Zosyn has been stopped, but she remains on vancomycin. She was also started on caspofungin after jeremy was found in her stool. Constitutional: + fever (last yesterday evening), + chills, + fatigue and + weakness Eyes: no worsening vision Ear, Nose, Mouth, Throat: no epistaxis and no bleeding gums Respiratory: no cough and no hemoptysis Cardiovascular: + edema (in her hands and feet bilaterally); no chest pain Gastrointestinal: + diarrhea/loose stools; no abdominal pain and no nausea Neurologic: no headache(s) Physical Exam Vital Signs (Past 24 Hours): Last Vital Signs Temp 37.0 C 02/03/19 08:00 Pulse 104 H 02/03/19 08:00 Resp 18 02/03/19 08:00 BP 157/89 H 02/03/19 08:00 Pulse Ox 97 02/03/19 08:00 Constitutional: + ill appearing and + obese; no acute distress Eyes: sclerae not anicteric and + EOM not intact ENMT: external ear and nose normal, oropharynx normal Respiratory: normal respiratory effort, lungs clear to auscultation (anteriorly) Cardiovascular: RRR, no murmur, no edema Gastrointestinal (Abdomen): normal bowel sounds, soft, nontender, no hepatosplenomegaly Skin: no rashes, warm and dry Psychiatric: A+Ox3, euthymic affect Lymphatic: no cervical or axillary lymphadenopathy Results & Data Laboratory Results Abnormal lab results 02/02/19 02/03/19 02/03/19 Range/Units 17:59 08:26 08:28 WBC (4.8-10.8) K/uL RBC (4.2-5.4) M/uL Hgb (12.0-16.0) g/dL Hct (37-47) % RDW Std Deviation (36.4-46.3) fL Plt Count (130-400) K/uL Neutrophils # (Manual) (1.4-6.5) K/uL Total Absolute Neuts (1.4-6.5) K/uL Lymphocytes # (Manual) (1.2-3.4) K/uL Total Abs Lymphocytes (1.2-3.4) K/uL Monocytes # (Manual) (0.11-0.59) K/uL Plasma Cell # (Manual) (0-0) K/uL BUN 5 L (7-18) mg/dl BUN/Creatinine Ratio 7.0 L (10-20) Calcium 7.5 L D (8.5-10.1) mg/dl Phosphorus 1.7 L (2.5-4.9) mg/dl Magnesium 1.7 L 1.5 L (1.8-2.4) mg/dl AST 360 H (15-37) U/L ALT 200 H (12-78) U/L Total Protein 5.8 L (6.4-8.2) gm/dl Albumin 2.2 L (3.4-5.0) gm/dl 02/03/19 Range/Units 08:28 WBC 2.03 L (4.8-10.8) K/uL RBC 3.76 L (4.2-5.4) M/uL Hgb 11.5 L (12.0-16.0) g/dL Hct 35.3 L (37-47) % RDW Std Deviation 47.6 H (36.4-46.3) fL Plt Count 39 L (130-400) K/uL Neutrophils # (Manual) 0.95 L (1.4-6.5) K/uL Total Absolute Neuts 0.95 L* (1.4-6.5) K/uL Lymphocytes # (Manual) 0.92 L (1.2-3.4) K/uL Total Abs Lymphocytes 0.92 L (1.2-3.4) K/uL Monocytes # (Manual) 0.02 L (0.11-0.59) K/uL Plasma Cell # (Manual) 0.14 H (0-0) K/uL BUN (7-18) mg/dl BUN/Creatinine Ratio (10-20) Calcium (8.5-10.1) mg/dl Phosphorus (2.5-4.9) mg/dl Magnesium (1.8-2.4) mg/dl AST (15-37) U/L ALT (12-78) U/L Total Protein (6.4-8.2) gm/dl Albumin (3.4-5.0) gm/dl
--- NOTE | 2019-02-03 13:03 | Pharmacy Report ---
Pharmacy Abx Dose Short Note - Date of Service February 03, 2019 - Assessment & Plan Assessment 68 year old F with coagulase negative staph bacteremia in the setting of indwelling a port * Recent antineoplastic therapy given in late December for her stage 4 colon cancer * Patient currently on vancomycin and caspofungin IV. Also on antibiotic lock therapy with vancomycin in attempt to salvage a port Plan Vancomycin * Trough level of 13.8 mcg/mL is subtherapeutic * Change to 1250 mg IV every 10 hours * Goal trough level: 15 to 20 mcg/mL * Trough ordered for 02/04 @1730 Caspofungin * Johana albicans found the stool. Per ID, began systemic treatment with IV caspofungin on 02/02 * Received 70mg IV x1, followed by 35mg IV daily. Pharmacy not consulted, but dosing appropriate given patient's moderate hepatic impairment Pharmacy will continue to follow and will adjust dose/frequency as necessary. Thank you.
--- NOTE | 2019-02-03 16:52 | Hospitalist Progress Note ---
Date of Service February 03, 2019 Assessment & Plan (1) Septicemia: Presented with persistent fevers in the setting of recent antineoplastic therapy for her stage 4 colon cancer. She was initially treated with broad-spectrum IV abx including cefepime and vancomycin, but given possibility of GI-related illness, her cefepime was then changed to Zosyn. She was treated empirically with Tamiflu despite a negative influenza PCR. This has now completed its course -With coag negative Staphylococcus bacteremia on blood cultures 1 out of 2 sets each time on 01/28 and 01/29 (confirmed from the port site) -Started on vancomycin lock therapy on 01/30, continues on IV vancomycin as well -IV Zosyn now discontinued now that cholecystitis ruled out Continued to spike fevers now x 6 days, but no fever so far today -Follow repeat blood cultures from 01/31-no growth to date Other workup included: * cxr w/o obvious pneumonia and repeat chest x-ray again no obvious pneumonia, CT chest without pneumonia * gall bladder u/s without acute cholecystitis and repeat US several days later of gallbladder without acute israel despite worsening LFTs and abd pain * urine cx negative, repeat UA is likely contaminated despite dysuria--> dysuria likely due to HSV * flu PCR negative (but see above re: tamiflu) * blood cx's as above * HIDA scan negative for acute cholecystitis * CT abdomen/pelvis no other obvious source of infection * Monospot negative, EBV and CMV titers pending * Hepatitis A, B, C all negative * Echocardiogram without obvious valvular vegetation With Johana albicans in the stool-discussed with ID-treat in case of fungemia -continue IV caspofungin started on 02/02 Appreciate infectious disease consultation-most likely with infected port-trying to salvage port with lock therapy Will most likely need several weeks of IV vancomycin (2) Coagulase negative Staphylococcus bacteremia: Plan as above (3) Vomiting and diarrhea: continues with nausea but abdominal pain is resolved-unclear if from illness or her cetuximab Continues with loose stools but slowing down -Discontinued p.o. magnesium as this could be worsening loose stools CT p.o. contrast from 01/31 could also have contributed to her diarrhea Stool culture with Johana albicans-treatin as above with Caspofungin Fecal leukocytes negative C. difficile negative Acute cholecystitis ruled out -Continue to follow -Can give Imodium as needed (4) Pancytopenia: Finally stabilizing--> platelets back up to 39, WBC up to 2.0, hemoglobin stable at 11.5 Received cetuximab on 01/25-appreciate oncology consultation-this drug does not usually cause cytopenias but could in theory -More likely pancytopenia induced by her sepsis or from the antibiotics -Follow CBC -Holding aspirin and Eliquis since 02/01 for platelets less than 50,000 -Transfuse as needed Have since discontinued the Zosyn and cefepime, but need to continue vancomycin -Appreciate oncology consultation -Flow cytometry pending due to presence of plasma cells seen on peripheral smear (5) Colon cancer metastasized to lung: Followed by Dr. Ortiz, . s/p Erbitux, last chemo was 01/25/19. s/p multiple procedures on lungs for mets in the past (see PMH section of EMR for details). CT CHest with stable size lung mass on CT chest this admission -holding chemo for this coming week as per Oncology (6) Hypomagnesemia: severe and persistent although starting to improve with replacement and slowing down of diarrhea Likely secondary to persistent diarrhea not on diuretics does chronic PPI use contribute?-Cannot dc PPI as she has some breakthrough GERD symptoms even while on it renal wasting? Continue to replace daily as needed with IV magnesium -Follow magnesium levels in the morning (7) Hypocalcemia: Follow and replace as needed-improved today, corrected Ca++ normal 11/2018 vitamin D level was mildly low. doubt that this is the main issue causing low calcium. -Replace as needed -Follow BMP in the morning (8) Hypokalemia: Replaced, continues to be normal -Follow BMP (9) Essential hypertension: Blood pressure remains elevated at times but improving today with increased metoprolol dose Cont metorpolol at original home dose of 50 mg twice daily -had been having sinus tachycardia proven by ECG with rates in the 130s likely secondary to fever, dehydration, as well as reducing beta-kenia dose--> now improving also (10) GERD (gastroesophageal reflux disease): PPI and added Maalox prn today for breakthrough symptoms (11) Hypothyroid: Continue levothyroxine at home dose. TSH 2 months ago -- 3. (12) DVT (deep venous thrombosis): history of. Continue holding Eliquis today for platelets less than 50,000 (13) HLD (hyperlipidemia): -Continue to hold statin due to rising LFTs (14) Asthma: With continued daily wheezing today which improved with nebulizers continue inhaled steroid and albuterol prn. (15) Morbid obesity with BMI of 45.0-49.9, adult: BMI 49 (16) Elevated LFTs: LFTs finally starting to decrease today --> always with normal T bili. AST 360 today, ALT 200, Alk phos normal. Hepatitis A, B, and C negative, Monospot negative CT scan of the liver without significant abnormality Right upper quadrant ultrasound without significant abnormality HIDA scan negative for acute cholecystitis Likely secondary either to sepsis or viral process or medication or antibiotic effect -Follow LFTs (17) Sacral wound: Wound on sacrum is a skin tear and likely due to irritation from frequent stooling as well as possible pressure ulcer Wound care following Dressing changes every 3 days or as needed (18) Genital herpes: cause of her dysuria, multiple perianal and genital lesions No known h/o HSV but is quite common and she is immunosuppressed--> primary outbreak for her -start acyclovir 500mg IV q8h x 7 day course -discussed with ID (19) Hypophosphatemia: replace and follow in AM (20) DVT prophylaxis: eliquis-now on hold due to low platelets SCDs PT, OT evals Disposition-remain hospitalized until fevers improve and following repeat blood cultures Subjective Patient reports feeling tired, also had some bad heartburn today but she ate more food this morning than she has in a long time-she ate scrambled eggs and a piece of an orange. This went away with Maalox. She also reports continued dysuria and thinks her saw some lesions in her genital region she wants me to check out. T-max 39.1 last night Physical Exam Vital Signs (Past 24 Hours): Last Vital Signs Temp 36.9 C 02/03/19 16:26 Pulse 90 02/03/19 16:26 Resp 18 02/03/19 16:26 BP 137/83 02/03/19 16:26 Pulse Ox 97 02/03/19 16:26 Constitutional: + ill appearing (but nontoxic) and + morbidly obese; no acute distress Eyes: + anicteric sclerae ENMT: Ears: no hearing impairment Mouth: no oral mucosal abnormality Respiratory: normal respiratory effort Auscultation: + wheezes (Diffuse expiratory); no crackles, no rales and no rhonchi Cardiovascular: Rate/Rhythm: regular rhythm and + tachycardic; + abnormal rate Heart Sounds: normal S1 and normal S2; no murmur Vessels: no JVD Gastrointestinal (Abdomen): normal bowel sounds, soft, nontender, no hepatosplenomegaly Inspection/Auscultation: normal bowel sounds; abdomen not distended Percussion/Palpation: + hernia (ventral) Musculoskeletal: Head/Neck/Chest: normocephalic Skin: + lesion (labia, groin, and perianal region all with multiple skin lesions -see below) genital skin lesions and perianal that are 3-4 mm, clements vesicles, some ruptured, on erythematous base, some pustules Psychiatric: A+Ox3, euthymic affect Results & Data Laboratory Results 02/04/19 02/03/19 02/03/19 Range/Units 05:44 10:35 08:28 WBC 2.03 L (4.8-10.8) K/uL RBC 3.76 L (4.2-5.4) M/uL Hgb 11.5 L (12.0-16.0) g/dL Hct 35.3 L (37-47) % MCV 93.9 (80-100) fL MCH 30.6 (25-34) pg MCHC 32.6 (32-36) g/dL RDW Std Deviation 47.6 H (36.4-46.3) fL RDW Coeff of Marcell 13.8 (11.5-14.5) % Plt Count 39 L (130-400) K/uL MPV 10.3 (7.4-10.4) fL Neutrophils % (Manual) 46.9 % Lymphocytes % (Manual) 45.1 % Monocytes % (Manual) 0.9 % Plasma Cell % (Manual) 7.1 % Neutrophils # (Manual) 0.95 L (1.4-6.5) K/uL Total Absolute Neuts 0.95 L* (1.4-6.5) K/uL Lymphocytes # (Manual) 0.92 L (1.2-3.4) K/uL Total Abs Lymphocytes 0.92 L (1.2-3.4) K/uL Monocytes # (Manual) 0.02 L (0.11-0.59) K/uL Plasma Cell # (Manual) 0.14 H (0-0) K/uL Toxic Vacuolation 1+ Sodium (136-145) mmol/L Potassium (3.5-5.1) mmol/L Chloride (98-107) mmol/L Carbon Dioxide (21-32) mmol/L Anion Gap (3-11) BUN (7-18) mg/dl Creatinine 0.65 (0.6-1.2) mg/dl Est Cr Clr Drug Dosing 114.8 ml/min Est GFR ( Amer) 107.2 Est GFR (Non-Af Amer) 92.5 BUN/Creatinine Ratio (10-20) Glucose (70-99) mg/dl Calcium (8.5-10.1) mg/dl Phosphorus (2.5-4.9) mg/dl Magnesium (1.8-2.4) mg/dl Total Bilirubin (0.2-1) mg/dl Direct Bilirubin (0-0.2) mg/dl AST (15-37) U/L ALT (12-78) U/L Alkaline Phosphatase (45-117) U/L Total Protein (6.4-8.2) gm/dl Albumin (3.4-5.0) gm/dl Vancomycin Trough 13.8 (See Comment) mcg/ml 02/03/19 02/03/19 Range/Units 08:28 08:26 WBC (4.8-10.8) K/uL RBC (4.2-5.4) M/uL Hgb (12.0-16.0) g/dL Hct (37-47) % MCV (80-100) fL MCH (25-34) pg MCHC (32-36) g/dL RDW Std Deviation (36.4-46.3) fL RDW Coeff of Marcell (11.5-14.5) % Plt Count (130-400) K/uL MPV (7.4-10.4) fL Neutrophils % (Manual) % Lymphocytes % (Manual) % Monocytes % (Manual) % Plasma Cell % (Manual) % Neutrophils # (Manual) (1.4-6.5) K/uL Total Absolute Neuts (1.4-6.5) K/uL Lymphocytes # (Manual) (1.2-3.4) K/uL Total Abs Lymphocytes (1.2-3.4) K/uL Monocytes # (Manual) (0.11-0.59) K/uL Plasma Cell # (Manual) (0-0) K/uL Toxic Vacuolation Sodium 136 (136-145) mmol/L Potassium 4.0 (3.5-5.1) mmol/L Chloride 106 (98-107) mmol/L Carbon Dioxide 23 (21-32) mmol/L Anion Gap 7.0 (3-11) BUN 5 L (7-18) mg/dl Creatinine 0.68 (0.6-1.2) mg/dl Est Cr Clr Drug Dosing 107.7 ml/min Est GFR ( Amer) 105.6 Est GFR (Non-Af Amer) 91.2 BUN/Creatinine Ratio 7.0 L (10-20) Glucose 84 (70-99) mg/dl Calcium 7.5 L D (8.5-10.1) mg/dl Phosphorus 1.7 L (2.5-4.9) mg/dl Magnesium 1.5 L (1.8-2.4) mg/dl Total Bilirubin 0.3 (0.2-1) mg/dl Direct Bilirubin < 0.1 (0-0.2) mg/dl AST 360 H (15-37) U/L ALT 200 H (12-78) U/L Alkaline Phosphatase 113 (45-117) U/L Total Protein 5.8 L (6.4-8.2) gm/dl Albumin 2.2 L (3.4-5.0) gm/dl Vancomycin Trough (See Comment) mcg/ml BCxs 3/6-NGTD Stool cx-Johana albicans (1) DVT (deep venous thrombosis) Affected thrombotic vein of extremity: unspecified vein of extremity Chronicity: unspecified DVT location: lower extremity Laterality: unspecified laterality Qualified Code(s): I82.409 - Acute embolism and thrombosis of unspecified deep veins of unspecified lower extremity (2) HLD (hyperlipidemia) Hyperlipidemia type: mixed hyperlipidemia Qualified Code(s): E78.2 - Mixed hyperlipidemia (3) Hypothyroid Hypothyroidism type: acquired Qualified Code(s): E03.9 - Hypothyroidism, unspecified (4) GERD (gastroesophageal reflux disease) Esophagitis presence: esophagitis presence not specified Qualified Code(s): K21.9 - Gastro-esophageal reflux disease without esophagitis (5) Asthma Asthma complication type: uncomplicated Asthma persistence: intermittent Asthma severity: mild Qualified Code(s): J45.20 - Mild intermittent asthma, uncomplicated
[2019-02-03] MEDS: LOPERAMIDE HCL 2 MG CAP PO PRN (17:16)
[2019-02-03] MEDS: ACYCLOVIR SOD 500 MG in DEXTROSE 5% 100 ML IV SCH (17:51)
[2019-02-03] MEDS: CYANOCOBALAMIN 500 MCG TABLET (VITAMIN B-12) PO SCH (21:12)
[2019-02-03] MEDS: SERTRALINE HCL 50 MG TABLET PO SCH (21:12)
[2019-02-04] MEDS: ACYCLOVIR SOD 500 MG in DEXTROSE 5% 100 ML IV SCH ×3 (03:25→18:35)
[2019-02-04] MEDS: LEVOTHYROXINE SODIUM 125 MCG TABLET PO SCH (06:12)
[2019-02-04 06:35] LABS: Creatinine Clr Calc Pharmacy 114.8 ml/min; Est GFR (African American) 107.2; Est GFR (Non-African American) 92.5
[2019-02-04 07:47] LABS: Hematocrit (blood only) 34.6 % (37-47); Mean Corpuscular Hgb Conc 31.8 g/dL (32-36); Mean Corpuscular Volume 95.3 fL (80-100); RDW Coefficient of Variation 13.9 % (11.5-14.5); RDW Standard Deviation 48.4 fL (36.4-46.3); Red Blood Count 3.63 M/uL (4.2-5.4); White Blood Count 2.16 K/uL (4.8-10.8)
[2019-02-04 07:49] LABS: Mean Platelet Volume 10.4 fL (7.4-10.4); Platelet Count 43 K/uL (130-400)
[2019-02-04 07:59] LABS: Alanine Aminotransferase 138 U/L (12-78); Albumin Level 2.1 gm/dl (3.4-5.0); Aspartate Aminotransferase 175 U/L (15-37); BUN Creatinine Ratio 7.1 (10-20); Bilirubin Direct < 0.1 mg/dl (0-0.2); Blood Urea Nitrogen 5 mg/dl (7-18); Calcium 7.4 mg/dl (8.5-10.1); Carbon Dioxide 29 mmol/L (21-32); Chloride 106 mmol/L (98-107); Creatinine Clr Calc Pharmacy 109.7 ml/min; Est GFR (African American) 105.6; Est GFR (Non-African American) 91.2; Glucose 79 mg/dl (70-99); Magnesium 1.1 mg/dl (1.8-2.4); Sodium 141 mmol/L (136-145)
[2019-02-04 08:01] LABS: Alkaline Phosphatase 100 U/L (45-117); Bilirubin,Total 0.3 mg/dl (0.2-1); Phosphorus 2.1 mg/dl (2.5-4.9); Total Protein 5.6 gm/dl (6.4-8.2)
[2019-02-04 08:33] LABS: ALC (manual) 0.63 K/uL (1.2-3.4); Eosinophils # (manual) 0.02 K/uL (0-0.5); Lymphocytes # (manual) 0.63 K/uL (1.2-3.4); Monocytes # (manual) 0.15 K/uL (0.11-0.59); Plasma Cells # (manual) 0.19 K/uL (0-0); RBC Morphology Unremarkable
[2019-02-04] MEDS: ACETAMINOPHEN 325 MG TAB PO PRN (09:13)
[2019-02-04] MEDS: VANCOMYCIN HCL 1,250 MG in SODIUM CHLORIDE 0.9% 250 ML IV SCH ×2 (09:16→20:28)
[2019-02-04] MEDS: MULTIVITAMIN TAB PO SCH (09:17)
[2019-02-04] MEDS: PANTOprazole 40 MG TAB PO SCH (09:17)
[2019-02-04] MEDS: METOPROLOL TARTRATE 50 MG TAB PO SCH ×2 (09:18→20:30)
[2019-02-04] MEDS: BECLOMETHASONE DIP HFA 80 MCG 8.7G INH INH SCH ×2 (09:19→20:33)
[2019-02-04] MEDS: POTASSIUM CHLORIDE 20 MEQ TABCR PO SCH (09:19)
[2019-02-04] MEDS: CASPOFUNGIN 35 MG in SODIUM CHLORIDE 0.9% 250 ML IV SCH (10:30)
[2019-02-04] MEDS: MAGNESIUM SULFATE / D5W 1 GM/100 ML BAG IV SCH ×4 (13:24→17:09)
[2019-02-04] MEDS: POT PHOSPHATE MONOBASIC W/ SOD TAB PO SCH ×3 (13:25→20:31)
[2019-02-04] MEDS: HEPARIN SODIUM IV SCH (14:16)
[2019-02-04] MEDS: VANCOMYCIN HCL IV SCH (14:16)
[2019-02-04] MEDS ORDERED: VANCOMYCIN TROUGH ONE (17:30)
--- NOTE | 2019-02-04 17:37 | Hospitalist Progress Note ---
Date of Service February 04, 2019 Assessment & Plan (1) Skin lesion of hand: right hand. either HSV lesions or Osler's nodes. suspect former. remains on acyclovir. could consider culture or Tzank smear. (2) Hypomagnesemia: severe ongoing 4 grams mag sulfate IV today repeat level AM check random urinary mag level to r/o urinary wasting (3) Hypophosphatemia: kphos neutral qid (4) Genital herpes: cont acyclovir (5) Septicemia: 2nd to coag neg staph - likely port infection no fever in nearly 48 hours most recent blood cx's neg on IV vanco lock therapy need for JOHN? (6) Morbid obesity with BMI of 45.0-49.9, adult: BMI 49 (7) Coagulase negative Staphylococcus bacteremia: see above in "septicemia" (8) Pancytopenia: counts seem to have plateued and slowly improving viral titers pending to be complete to r/o bone marrow suppression from such cbc in am (9) Antineoplastic chemotherapy induced pancytopenia: as above (10) Essential hypertension: acceptable control (11) Hypothyroid: synthroid (12) Colon cancer metastasized to lung: stage 4 colon ca, followed by Dr. Ortiz (13) Elevated LFTs: slowly improving uncertain etiology EBV, CMV titers pending check LFTs about every other day (14) DVT prophylaxis: SCDs platelets too low for chemical means (15) Candidiasis of intestine: cont caspofungin stool cx grew out c albicans Subjective main complaint is that of several painful lesions present on the first/second fingers of right hand these popped up yesterday other fingers right hand are spared; left hand also spared denies chest pain, dyspnea above baseline, abd pain appetite modestly improved today present during the visit no fever now in over 36 hours Constitutional: + fatigue; no fever and no chills Ear, Nose, Mouth, Throat: no sore throat Respiratory: + dyspnea on exertion and + wheezing Cardiovascular: no chest pain Gastrointestinal: no abdominal pain and no vomiting Genitourinary (Female): no dysuria and no urinary incontinence Physical Exam Vital Signs (Past 24 Hours): Last Vital Signs Temp 36.6 C 02/04/19 15:50 Pulse 88 02/04/19 15:50 Resp 16 02/04/19 15:50 BP 119/76 02/04/19 15:50 Pulse Ox 96 02/04/19 15:50 Constitutional: + morbidly obese; no acute distress and not ill appearing ENMT: external ear and nose normal, oropharynx normal Respiratory: normal respiratory effort, lungs clear to auscultation Cardiovascular: Rate/Rhythm: regular rate and regular rhythm Heart Sounds: normal S1 and normal S2; no murmur Vessels: posterior tibial pulses present and dorsalis pedis pulses present; no JVD Gastrointestinal (Abdomen): normal bowel sounds, soft, nontender, no hepatosplenomegaly Percussion/Palpation: + hernia (ventral, high abdomen) Skin: Osler's nodes vs herpes lesions fingers 1 & 2 of right hand Psychiatric: A+Ox3, euthymic affect Results & Data Laboratory Results Laboratory Results - last 24 hr 02/04/19 02/04/19 02/04/19 05:44 07:35 07:35 WBC 2.16 L RBC 3.63 L Hgb 11.0 L Hct 34.6 L MCV 95.3 MCH 30.3 MCHC 31.8 L RDW Std Deviation 48.4 H RDW Coeff of Marcell 13.9 Plt Count 43 L MPV 10.4 Neutrophils % (Manual) 54.0 Lymphocytes % (Manual) 29.0 Monocytes % (Manual) 7.0 Eosinophils % (Manual) 1.0 Plasma Cell % (Manual) 9.0 Neutrophils # (Manual) 1.17 L Total Absolute Neuts 1.17 L Lymphocytes # (Manual) 0.63 L Total Abs Lymphocytes 0.63 L Monocytes # (Manual) 0.15 Eosinophils # (Manual) 0.02 Plasma Cell # (Manual) 0.19 H RBC Morphology Unremarkable Sodium 141 Potassium 4.0 Chloride 106 Carbon Dioxide 29 Anion Gap 6.0 BUN 5 L Creatinine 0.65 0.68 Est Cr Clr Drug Dosing 114.8 109.7 Est GFR ( Amer) 107.2 105.6 Est GFR (Non-Af Amer) 92.5 91.2 BUN/Creatinine Ratio 7.1 L Glucose 79 Calcium 7.4 L Phosphorus 2.1 L Magnesium 1.1 L Total Bilirubin 0.3 Direct Bilirubin < 0.1 AST 175 H ALT 138 H Alkaline Phosphatase 100 Total Protein 5.6 L Albumin 2.1 L (1) Hypothyroid Hypothyroidism type: acquired Qualified Code(s): E03.9 - Hypothyroidism, unspecified
[2019-02-04] MEDS: ONDANSETRON INJ 2 MG/ML 2 ML VIAL IV PRN (18:43)
[2019-02-04] MEDS: SERTRALINE HCL 50 MG TABLET PO SCH (20:30)
[2019-02-04] MEDS: ERGOCALCIFEROL 50,000 UNITS CAP PO SCH (20:32)
[2019-02-04] MEDS: CYANOCOBALAMIN 500 MCG TABLET (VITAMIN B-12) PO SCH (20:32)
--- NOTE | 2019-02-04 21:39 | Pharmacy Report ---
Pharmacy Abx Dose Short Note - Date of Service February 04, 2019 - Assessment & Plan Assessment 68 year old F receiving Vancomycin for treatment of coagulase negative staph bacteremia in the setting of indwelling a port Day # 8 of antimicrobial therapy. Plan Laboratory Tests 02/04/19 17:20 Vancomycin Trough 20.4 Vancomycin * Trough level of 20.4 mcg/mL is slightly supratherapeutic * Change to 1250 mg IV every 12 hours * Goal trough level for septicemia : 15 to 20 mcg/mL * Trough or random level ordered for: 02/06/19 @ 0730 Pharmacy will continue to follow and will adjust dose/frequency as necessary. Thank you.
[2019-02-05] MEDS: ACYCLOVIR SOD 500 MG in DEXTROSE 5% 100 ML IV SCH ×3 (02:17→18:32)
[2019-02-05] MEDS: ONDANSETRON INJ 2 MG/ML 2 ML VIAL IV PRN ×3 (02:43→19:40)
[2019-02-05] MEDS: LEVOTHYROXINE SODIUM 125 MCG TABLET PO SCH (05:41)
[2019-02-05 07:51] LABS: Hematocrit (blood only) 34.2 % (37-47); Hemoglobin 10.7 g/dL (12.0-16.0); Mean Corpuscular Hgb Conc 31.3 g/dL (32-36); Mean Corpuscular Volume 95.5 fL (80-100); RDW Coefficient of Variation 13.8 % (11.5-14.5); RDW Standard Deviation 48.2 fL (36.4-46.3); Red Blood Count 3.58 M/uL (4.2-5.4); White Blood Count 2.57 K/uL (4.8-10.8)
[2019-02-05 08:15] LABS: Mean Platelet Volume 10.5 fL (7.4-10.4); Platelet Count 53 K/uL (130-400)
[2019-02-05] MEDS: VANCOMYCIN HCL 1,250 MG in SODIUM CHLORIDE 0.9% 250 ML IV SCH ×2 (08:17→21:19)
[2019-02-05] MEDS: PANTOprazole 40 MG TAB PO SCH (08:21)
[2019-02-05] MEDS: METOPROLOL TARTRATE 50 MG TAB PO SCH ×2 (08:21→21:22)
[2019-02-05] MEDS: POTASSIUM CHLORIDE 20 MEQ TABCR PO SCH (08:22)
[2019-02-05] MEDS: POT PHOSPHATE MONOBASIC W/ SOD TAB PO SCH ×4 (08:22→21:19)
[2019-02-05] MEDS: MULTIVITAMIN TAB PO SCH (08:22)
[2019-02-05] MEDS: BECLOMETHASONE DIP HFA 80 MCG 8.7G INH INH SCH ×2 (08:22→21:22)
[2019-02-05 08:24] LABS: Calcium 7.5 mg/dl (8.5-10.1); Creatinine Clr Calc Pharmacy 112.9 ml/min; Est GFR (African American) 107.8; Magnesium 1.2 mg/dl (1.8-2.4); Potassium 3.7 mmol/L (3.5-5.1)
[2019-02-05 09:04] LABS: ALC (manual) 0.57 K/uL (1.2-3.4); Eosinophils # (manual) 0.05 K/uL (0-0.5); Eosinophils % (manual) 1.8 %; Giant Platelets 2+; Lymphocytes # (manual) 0.25 K/uL (1.2-3.4); Lymphocytes % (manual) 9.7 %; Monocytes # (manual) 0.23 K/uL (0.11-0.59); Monocytes % (manual) 8.8 %; Myelocytes # (manual) 0.02 K/uL (0-0); Myelocytes % (manual) 0.9 %; Neutrophils % (manual) 64.6 %; Plasma Cells # (manual) 0.05 K/uL (0-0); Plasma Cells % (manual) 1.8 %; Reactive Lymphocytes # (manual) 0.32 K/uL
[2019-02-05] MEDS: MAGNESIUM SULFATE / D5W 1 GM/100 ML BAG IV SCH ×3 (10:11→14:37)
[2019-02-05] MEDS: CASPOFUNGIN 35 MG in SODIUM CHLORIDE 0.9% 250 ML IV SCH (10:21)
[2019-02-05 10:26] LABS: CMV IgM Antibody <30.00 Au/mL; EBV Virus Capsid Ag IgG Ab >750.00 U/ML; Epstein Barr Virus Early Ag Ab < 9.00 U/ML
--- NOTE | 2019-02-05 11:16 | Nephrology Consultation ---
Date of Consultation February 05, 2019 Assessment & Plan (1) Hypomagnesemia: Hypomagnesemia due to multiple factors including chronic PPI therapy, Erbituxan therapy and ongoing diarrhea. Patient has moderate to severe deficit. Replacement will require 4 - 8 g Magnesium Sulfate and may be higher due to ongoing diarrhea / intestinal losses. -- Will order urine creatinine to calculate FeMg -- Will order 24 hour urine collection to measure urinary Mg -- Recommend continued IV Mg supplementation (ie., 4 g IV over 12 hours and then check level) -- Recommend stopping PPI therapy -- Recommend consultation w/ GI for assistance with diarrhea management and alternative to PPI therapy (2) Candidiasis of intestine: (3) Coagulase negative Staphylococcus bacteremia: (4) Antineoplastic chemotherapy induced pancytopenia: (5) Colon cancer metastasized to lung: History of Present Illness Reason for Consultation: Hypomagnesemia Attending Physician: Antonio Darden History of Present Illness Mrs. Bee is a 68 year old white female who is seen at the request of Dr. Darden for evaluation of hypomagnesemia. Medical records in the EMR were reviewed and are summarized as follows: Mrs. Bee has metastatic colorectal cancer. This was diagnosed in 2007 and has been treated w/ chemotherapy. She is currently on Cetuximab (Erbituxan) and was last treated 01/25/19. Mrs. Bee presented to [facility] ED 01/28/19 w/ fever and chills. Blood cultures were positive for MSSA suggestive of R subclavian kopuf-j-[id number] infection. She had been on broad spectrum antibiotics but is currently on IV Vancomycin. Mrs. Bee relates a h/o GERD. She has been on Omeprazole therapy for "several years". Since starting Cetuximab she has had loose bowel movements but reports that over the last 2 - 3 weeks she has been experiencing 6 - 7 liquid BM each day. Oral magnesium has been held due to her diarrhea. Patient has required r epeated doses of IV Magnesium. Random urine Mg level was checked and returned at 18.4 mg/dL. Nephrology consultation is now requested. Allergies Allergy/AdvReac Type Severity Reaction Status Date / Time thiopental Allergy Unknown INCREASED Verified 01/28/19 09:10 BLEEDING WITH WISDOM TEETH SURG meperidine AdvReac Mild N/V Verified 01/28/19 09:10 morphine AdvReac Mild N/V Verified 01/28/19 09:10 Home Medications Home Medications Medication Instructions Recorded Confirmed Type albuterol sulfate 2 puff INHALATION Q6 PRN 08/07/18 01/28/19 History apixaban 5 mg PO BID 08/07/18 01/28/19 History ascorbic acid (vitamin C) 1 g PO QAM 08/07/18 01/28/19 History aspirin [Aspirin Childrens] 81 mg PO DAILY 08/07/18 01/28/19 History beclomethasone dipropionate 2 puff INHALATION BID 08/07/18 01/28/19 History cyanocobalamin (vitamin B-12) 1,000 mcg PO HS 08/07/18 01/28/19 History [id number]-[id number] C-Mn 1 cap PO BID 08/07/18 01/28/19 History [Glucosamine Chondroitin MaxStr] levothyroxine 125 mcg PO QAM 08/07/18 01/28/19 History metoprolol tartrate 50 mg PO BID 08/07/18 01/28/19 History multivitamin 1 tab PO DAILY 08/07/18 01/28/19 History omeprazole 20 mg PO QAM 08/07/18 01/28/19 History ondansetron HCl 8 mg PO Q8 PRN 08/07/18 01/28/19 History potassium chloride 20 meq PO DAILY 08/07/18 01/28/19 History prochlorperazine maleate 10 mg PO Q6 PRN 08/07/18 01/28/19 History sertraline 50 mg PO HS 08/07/18 01/28/19 History simvastatin 40 mg PO QPM 08/07/18 01/28/19 History loperamide 2 mg PO UD PRN #30 cap MDD MAX: 08/10/18 01/28/19 Rx 16MG (8 tabs) in 24HOURS ergocalciferol (vitamin D2) 50,000 unit PO DIRECTED 01/28/19 01/28/19 History [Vitamin D2] Patient History Medical History Febrile illness Essential hypertension (Chronic) Vomiting and diarrhea (Acute) HLD (hyperlipidemia) (Chronic) GERD (gastroesophageal reflux disease) (Chronic) Hypothyroid (Chronic) Encounter for chemotherapy management DVT (deep venous thrombosis) (Chronic) Colon cancer metastasized to lung (Chronic 09/18/08) "Adenocarcinoma of the colon with lung metastasis diagnosed in 2007 Status post right lobectomy 07/10/2008 Status post colonoscopy and biopsy 09/18/2008 revealing the colon lesion. Status post resection. This was followed by chemotherapy. Status post left upper lobe wedge resection 08/24/2011 due to metastasis Status post stereotactic radiation therapy in 2011 Completed chemotherapy in 2014 Status post wedge resection with Dr. navarrete 2015 Status post hypo-fractionated radiation therapy in 2016 PET/CT 08/24/2017 revealing metabolic activity of the right hilum. Status post completion of radiation therapy 10/24/2017 utilizing VMAT. PET/CT May 29, 2018 persistent uptake in the right paratracheal mass and suspicious changes for progression. Plan for systemic chemotherapy with irinotecan and Erbitux" On 11/02/17 11:11 Meaghan Alves wrote "Adenocarcinoma of the colon with lung metastasis diagnosed in 2007 Status post right lobectomy 07/10/2008 Status post colonoscopy and biopsy 09/18/2008 revealing the colon lesion. Status post resection. This was followed by chemotherapy. Status post left upper lobe wedge resection 08/24/2011 due to metastasis Status post stereotactic radiation therapy in 2011 Completed chemotherapy in 2014 Status post wedge resection with Dr. navarrete 2015 Status post hypo-fractionated radiation therapy in 2016 PET/CT 08/24/2017 revealing metabolic activity of the right hilum. Status post completion of radiation therapy 10/24/2017 utilizing VMAT." On 09/13/17 09:28 Meaghan Alves wrote "Adenocarcinoma of the colon with lung metastasis diagnosed in 2007 Status post right lobectomy 07/10/2008 Status post colonoscopy and biopsy 09/18/2008 revealing the colon lesion. Status post resection. This was followed by chemotherapy. Status post left upper lobe wedge resection 08/24/2011 due to metastasis Status post stereotactic radiation therapy in 2011 Completed chemotherapy in 2014 Status post wedge resection with Dr. navarrete 2015 Status post hypo-fractionated radiation therapy in 2016 PET/CT 08/24/2017 revealing metabolic activity of the right hilum." Pulmonary embolism (Resolved) HLD (hyperlipidemia) History of radiation therapy Hx of gallstones Neutropenia Family History Other Family history non-contributory Social History Communication Ability: Effective Beliefs That Will Affect Care: None Current Living Situation: Spouse Feels Safe at Home: Yes Smoking Status: Never smoker Hx Alcohol Use: No Hx Substance Use: No Review of Systems Constitutional: + fever Respiratory: no dyspnea Cardiovascular: no chest pain Gastrointestinal: + heartburn and + diarrhea/loose stools Physical Exam Vital Signs (Past 24 Hours): Last Vital Signs Temp 36.6 C 02/05/19 08:04 Pulse 74 02/05/19 08:04 Resp 16 02/05/19 08:04 BP 154/84 H 02/05/19 08:04 Pulse Ox 91 02/05/19 08:04 Constitutional: + obese Eyes: PERRL, conjunctivae normal, anicteric sclerae Neck: trachea midline, no thyromegaly Respiratory: normal respiratory effort, lungs clear to auscultation Cardiovascular: RRR, no murmur, no edema Gastrointestinal (Abdomen): Inspection/Auscultation: + abdomen distended and normal bowel sounds Percussion/Palpation: abdomen soft; abdomen nontender Results & Data Laboratory Results Laboratory Tests 01/30/19 02/04/19 02/05/19 20:20 19:00 07:29 WBC 2.57 L Hgb 10.7 L Hct 34.2 L Plt Count 53 L Sodium Potassium Chloride BUN Creatinine Calcium Magnesium Urine Color Yellow Urine Appearance Cloudy H Urine pH 5.0 Ur Specific [place] 1.020 Urine Protein 1+ H Urine Glucose (UA) Negative Urine Ketones Negative Urine Blood 1+ H Urine Nitrite Negative Urine WBC (Auto) 10-30 H Urine RBC (Auto) 5-10 H U Hyaline Cast (Auto) 5-10 H U Epithel Cells (Auto) >30 H Granular Casts 1-5 H Ur Random Magnesium 18.4 02/05/19 07:29 WBC Hgb Hct Plt Count Sodium 142 Potassium 3.7 Chloride 105 BUN 3 L Creatinine 0.64 Calcium 7.5 L Magnesium 1.2 L Urine Color Urine Appearance Urine pH Ur Specific [place] Urine Protein Urine Glucose (UA) Urine Ketones Urine Blood Urine Nitrite Urine WBC (Auto) Urine RBC (Auto) U Hyaline Cast (Auto) U Epithel Cells (Auto) Granular Casts Ur Random Magnesium
--- NOTE | 2019-02-05 17:22 | Infectious Disease Progress Nt ---
Date of Service February 05, 2019 Assessment & Plan (1) Coagulase negative Staphylococcus bacteremia: 68-year-old female with metastatic colon cancer now with fever with coagulase-negative staph bacteremia in the setting of indwelling a port. Despite lack of local symptoms, port infection still a possibility, so would continue patient on vancomycin with vancomycin lock therapy. Will likely need at least 2 weeks of IV antibiotics. Awaiting further studies for possible viral etiology. Caspofungin added for possible Johana infection. Will follow. Subjective Patient seen in follow-up for fever, coagulase-negative staph bacteremia. Patie nt now feeling somewhat better, still having intermittent fevers. Offers no new specific complaints. Stool cultures growing Johana. Review of Systems All systems reviewed & are unremarkable except as noted in HPI & below Physical Exam Vital Signs (Past 24 Hours): Last Vital Signs Temp 36.8 C 02/05/19 14:55 Pulse 68 02/05/19 14:55 Resp 16 02/05/19 14:55 BP 161/87 H 02/05/19 14:55 Pulse Ox 95 02/05/19 14:55 Constitutional: WD/WN, vitals as above comfortable; no acute distress Eyes: PERRL, conjunctivae normal, anicteric sclerae ENMT: external ear and nose normal, oropharynx normal Neck: trachea midline, no thyromegaly neck nontender Respiratory: normal respiratory effort, lungs clear to auscultation normal percussion; no respiratory distress Cardiovascular: Rate/Rhythm: regular rate and regular rhythm Heart Sounds: normal S1 and normal S2; no gallop, no murmur and no cardiac rub Gastrointestinal (Abdomen): normal bowel sounds, soft, nontender, no hepatosplenomegaly Musculoskeletal: no cyanosis or clubbing, extremities motor strength 5/5 No spinal tenderness, no joint swelling or erythema Skin: no rashes, warm and dry no lesions Neurologic: moves all extremities and awake; no focal motor deficits Motor/Sensory: no sensory deficit Psychiatric: A+Ox3, euthymic affect Lymphatic: no cervical or axillary lymphadenopathy no inguinal lymphadenopathy Results & Data Laboratory Results Short CBC 02/05/19 Range/Units 07:29 WBC 2.57 L (4.8-10.8) K/uL Hgb 10.7 L (12.0-16.0) g/dL Hct 34.2 L (37-47) % Plt Count 53 L (130-400) K/uL BMP 02/05/19 07:29 Sodium 142 Potassium 3.7 Chloride 105 Carbon Dioxide 32 BUN 3 L Creatinine 0.64 Glucose 87 Calcium 7.5 L Diagnostic Findings Microbiology 01/31/19 08:31 Blood Blood Culture - Final No growth 01/31/19 08:23 Blood Blood Culture - Final No growth 01/29/19 19:05 Blood Blood Culture - Final Coag neg staph not lugdunensis 01/29/19 18:42 Blood Blood Culture - Final No growth 01/31/19 12:31 Stool Shiga Toxin Test - Final 01/31/19 12:31 Stool Stool Culture - Final Johana albicans 01/28/19 09:31 Blood Blood Culture - Final Coag neg staph not lugdunensis Coag neg staph not lugdunensis#2 01/28/19 09:21 Blood Blood Culture - Final No growth 01/30/19 20:20 Urine,Clean Catch Urine Culture - Final No growth - less than 1,000 colonies/mL. 01/31/19 12:31 Stool WBC Smear - Final 01/28/19 10:40 Urine,Clean Catch Urine Culture - Final More than three types of organisms present, all low counts mixed probable skin liliya. No further identifications or sensitivities to follow.
[2019-02-05] MEDS: CYANOCOBALAMIN 500 MCG TABLET (VITAMIN B-12) PO SCH (21:20)
[2019-02-05] MEDS: SERTRALINE HCL 50 MG TABLET PO SCH (21:21)
[2019-02-06] MEDS: ACYCLOVIR SOD 500 MG in DEXTROSE 5% 100 ML IV SCH ×3 (02:11→18:37)
[2019-02-06] MEDS: LEVOTHYROXINE SODIUM 125 MCG TABLET PO SCH (06:00)
[2019-02-06] MEDS: ONDANSETRON INJ 2 MG/ML 2 ML VIAL IV PRN (06:18)
--- NOTE | 2019-02-06 06:22 | Hospitalist Progress Note ---
Date of Service February 05, 2019 Assessment & Plan (1) Skin lesion of hand: right hand. either HSV lesions or Osler's nodes. suspect former. remains on acyclovir. could consider culture or Tzank smear if any worsening. (2) Hypomagnesemia: severe ongoing 3 grams mag sulfate IV today over 6 hours in light of refractory, severely low mag despite copious replacement I have asked nephrology to see STOP PPI if this is causing gut absorption issues (3) Hypophosphatemia: kphos neutral qid (4) Genital herpes: cont acyclovir (5) Septicemia: 2nd to coag neg staph - likely port infection no fever in nearly 72 hours most recent blood cx's neg on IV vanco lock therapy appreciate ID consultation (6) Morbid obesity with BMI of 45.0-49.9, adult: BMI 47 (7) Coagulase negative Staphylococcus bacteremia: see above in "septicemia" (8) Pancytopenia: counts seem to have plateued and slowly improving viral titers pending to r/o bone marrow suppression from such cbc in am (9) Antineoplastic chemotherapy induced pancytopenia: as above (10) Essential hypertension: acceptable control (11) Hypothyroid: synthroid (12) Colon cancer metastasized to lung: stage 4 colon ca, followed by Dr. Ortiz (13) Elevated LFTs: slowly improving uncertain etiology EBV, CMV titers pending (14) DVT prophylaxis: SCDs platelets too low for chemical means (15) Candidiasis of intestine: cont caspofungin stool cx grew out c albicans change to diflucan at some point? I believe she is overall progressing Subjective pt overall feeling better only 1 stool today - soft, no joel diarrhea no vomiting eating better denies dyspnea beyond baseline lesions on right hand - no change denies any new skin lesions genital HSV improved Constitutional: + fatigue; no fever and no chills Respiratory: no cough Cardiovascular: no chest pain Gastrointestinal: no abdominal pain and no vomiting Physical Exam Vital Signs (Past 24 Hours): Last Vital Signs Temp 36.6 C 02/06/19 03:56 Pulse 83 02/06/19 03:56 Resp 18 02/06/19 03:56 BP 165/85 H 02/06/19 03:56 Pulse Ox 96 02/06/19 03:56 Constitutional: + morbidly obese; no acute distress and not ill appearing ENMT: external ear and nose normal, oropharynx normal Respiratory: normal respiratory effort, lungs clear to auscultation Auscultation: no crackles Cardiovascular: Rate/Rhythm: regular rate and regular rhythm Heart Sounds: normal S1 and normal S2; no murmur Vessels: posterior tibial pulses present and dorsalis pedis pulses present; no JVD Gastrointestinal (Abdomen): normal bowel sounds, soft, nontender, no hepatosplenomegaly Inspection/Auscultation: abdomen not distended Percussion/Palpation: + hernia (ventral, high abdomen) Skin: right hand first/2nd digits with 3 erythematous lesions - no change Psychiatric: A+Ox3, euthymic affect Results & Data Laboratory Results Laboratory Results - last 24 hr 02/01/19 02/02/19 02/05/19 12:49 07:08 07:29 WBC 2.57 L RBC 3.58 L Hgb 10.7 L Hct 34.2 L MCV 95.5 MCH 29.9 MCHC 31.3 L RDW Std Deviation 48.2 H RDW Coeff of Marcell 13.8 Plt Count 53 L MPV 10.5 H Neutrophils % (Manual) 64.6 Lymphocytes % (Manual) 9.7 Reactive Lymphs % (Man) 12.4 Monocytes % (Manual) 8.8 Eosinophils % (Manual) 1.8 Myelocytes % (Man) 0.9 Plasma Cell % (Manual) 1.8 Neutrophils # (Manual) 1.66 Total Absolute Neuts 1.66 Lymphocytes # (Manual) 0.25 L Reactive Lymphs # 0.32 Total Abs Lymphocytes 0.57 L Monocytes # (Manual) 0.23 Eosinophils # (Manual) 0.05 Myelocytes # (Manual) 0.02 H Plasma Cell # (Manual) 0.05 H Giant Platelets 2+ Sodium Potassium Chloride Carbon Dioxide Anion Gap BUN Creatinine Est Cr Clr Drug Dosing Est GFR ( Amer) Est GFR (Non-Af Amer) BUN/Creatinine Ratio Glucose Calcium Magnesium CMV IgG Ab 7.10 CMV IgM Ab <30.00 EBV Capsid Ag IgG Ab >750.00 H EBV Capsid Ag IgM Ab < 36.00 EBV EA Restrict+Diffuse < 9.00 EBV Nuclear Antigen Ab 61.50 H Misc Genetic Test See Comment 02/05/19 07:29 WBC RBC Hgb Hct MCV MCH MCHC RDW Std Deviation RDW Coeff of Marcell Plt Count MPV Neutrophils % (Manual) Lymphocytes % (Manual) Reactive Lymphs % (Man) Monocytes % (Manual) Eosinophils % (Manual) Myelocytes % (Man) Plasma Cell % (Manual) Neutrophils # (Manual) Total Absolute Neuts Lymphocytes # (Manual) Reactive Lymphs # Total Abs Lymphocytes Monocytes # (Manual) Eosinophils # (Manual) Myelocytes # (Manual) Plasma Cell # (Manual) Giant Platelets Sodium 142 Potassium 3.7 Chloride 105 Carbon Dioxide 32 Anion Gap 5.0 BUN 3 L Creatinine 0.64 Est Cr Clr Drug Dosing 112.9 Est GFR ( Amer) 107.8 Est GFR (Non-Af Amer) 93.0 BUN/Creatinine Ratio 5.0 L Glucose 87 Calcium 7.5 L Magnesium 1.2 L CMV IgG Ab CMV IgM Ab EBV Capsid Ag IgG Ab EBV Capsid Ag IgM Ab EBV EA Restrict+Diffuse EBV Nuclear Antigen Ab Misc Genetic Test (1) Hypothyroid Hypothyroidism type: acquired Qualified Code(s): E03.9 - Hypothyroidism, unspecified
[2019-02-06] MEDS ORDERED: VANCOMYCIN TROUGH ONE (07:30)
[2019-02-06] MEDS: VANCOMYCIN HCL 1,250 MG in SODIUM CHLORIDE 0.9% 250 ML IV SCH ×2 (07:57→20:30)
[2019-02-06] MEDS: POTASSIUM CHLORIDE 20 MEQ TABCR PO SCH ×4 (07:57→21:30)
[2019-02-06] MEDS: BECLOMETHASONE DIP HFA 80 MCG 8.7G INH INH SCH ×2 (07:58→21:30)
[2019-02-06] MEDS: METOPROLOL TARTRATE 50 MG TAB PO SCH ×2 (07:58→21:30)
[2019-02-06] MEDS: MULTIVITAMIN TAB PO SCH (07:58)
[2019-02-06] MEDS: POT PHOSPHATE MONOBASIC W/ SOD TAB PO SCH ×4 (07:58→22:56)
[2019-02-06 08:13] LABS: Mean Corpuscular Hgb Conc 31.9 g/dL (32-36)
[2019-02-06 08:39] LABS: ALC (manual) 0.46 K/uL (1.2-3.4); BUN Creatinine Ratio 3.3 (10-20); Calcium 7.7 mg/dl (8.5-10.1); Creatinine Clr Calc Pharmacy 122.5 ml/min; Eosinophils # (manual) 0.09 K/uL (0-0.5); Eosinophils % (manual) 2.7 %; Est GFR (African American) 110.1; Hematocrit (blood only) 35.1 % (37-47); Hemoglobin 11.2 g/dL (12.0-16.0); Lymphocytes # (manual) 0.15 K/uL (1.2-3.4); Lymphocytes % (manual) 4.5 %; Mean Corpuscular Volume 94.4 fL (80-100); Mean Platelet Volume 12.5 fL (7.4-10.4); Monocytes # (manual) 0.37 K/uL (0.11-0.59); Monocytes % (manual) 10.7 %; Neutrophils % (manual) 72.3 %; Plasma Cells # (manual) 0.03 K/uL (0-0); Plasma Cells % (manual) 0.9 %; Platelet Count 37 K/uL (130-400); Platelet Estimate Decreased (Normal); Potassium 3.3 mmol/L (3.5-5.1); RDW Coefficient of Variation 13.7 % (11.5-14.5); RDW Standard Deviation 47.6 fL (36.4-46.3); Reactive Lymphocytes # (manual) 0.31 K/uL; Red Blood Count 3.72 M/uL (4.2-5.4); White Blood Count 3.43 K/uL (4.8-10.8)
--- NOTE | 2019-02-06 09:06 | Pharmacy Report ---
Pharmacy Abx Dose Short Note - Date of Service February 06, 2019 - Assessment & Plan Assessment 68 year old F with coagulase negative staph bacteremia in the setting of indwelling a-port and genital herpes with skin lesion on right hand * Recent antineoplastic therapy given in late December for her stage 4 colon cancer * Pt on systemic vancomycin in addition to antibiotic lock therapy with vancomycin in attempt to salvage a port * Caspofungin IV added on 02/02 for C. albicans in stool culture * Acyclovir IV added on 02/03 Plan Vancomycin * Trough level of 15.4 mcg/mL is therapeutic * Continue dose of 1250 mg IV every 12 hours * Goal trough level for infected port : 15 to 20 mcg/mL * Planning for a minimum duration of 14 days per ID Pharmacy will continue to follow and will adjust dose/frequency as necessary. Thank you.
--- NOTE | 2019-02-06 09:30 | Nephrology Progress Note ---
Date of Service February 06, 2019 Assessment & Plan (1) Hypomagnesemia: Hypomagnesemia due to multiple factors including chronic PPI therapy, Erbituxan therapy and ongoing diarrhea. Patient is asymptomatic but has a moderate to severe deficit. Replacement will require ~ 8 g Magnesium Sulfate a nd may be higher due to ongoing diarrhea / intestinal losses. -- Awaiting urine creatinine to calculate FeMg -- Awaiting 24 hour urine collection to measure urinary Mg -- Since Mg losses are likely from GI source, doubtful that Amiloride will be of benefit -- Recommend continued IV Mg supplementation (ie., 6 - 8 g IV over 12 hours and then redose according to blood level) -- IV Mg supplementation can lead to rapid increase in serum Mg and inhibition of Mg uptake by the loop of Henle. Patients usually benefit from oral Mg due to slower absorption allowing cellular uptake. Recommend star ting Mag-Ox 1600 mg po daily in addition to IV supplementation and close monitoring of blood levels -- Stop PPI therapy -- Recommend consultation w/ GI for assistance with diarrhea management and a lternative to PPI therapy (2) Candidiasis of intestine: (3) Coagulase negative Staphylococcus bacteremia: (4) Antineoplastic chemotherapy induced pancytopenia: (5) Colon cancer metastasized to lung: Subjective Mrs. Bee was seen & examined in her hospital room this morning. She reports that she is still having frequent BM's but notes that the stool is loose and no longer simply liquid. Constitutional: no fever Respiratory: no dyspnea Cardiovascular: no chest pain Gastrointestinal: + heartburn and + diarrhea/loose stools Physical Exam Vital Signs (Past 24 Hours): Last Vital Signs Temp 36.8 C 02/06/19 07:07 Pulse 82 02/06/19 07:07 Resp 18 02/06/19 07:07 BP 170/90 H 02/06/19 07:07 Pulse Ox 94 02/06/19 07:07 Constitutional: + obese Eyes: PERRL, conjunctivae normal, anicteric sclerae Neck: trachea midline, no thyromegaly Respiratory: normal respiratory effort, lungs clear to auscultation Cardiovascular: RRR, no murmur, no edema Gastrointestinal (Abdomen): Inspection/Auscultation: + abdomen distended and normal bowel sounds Percussion/Palpation: abdomen soft; abdomen nontender
[2019-02-06] MEDS: CASPOFUNGIN 35 MG in SODIUM CHLORIDE 0.9% 250 ML IV SCH (10:11)
[2019-02-06] MEDS: MAGNESIUM SULFATE / D5W 1 GM/100 ML BAG IV SCH ×4 (10:11→20:07)
[2019-02-06] MEDS: HEPARIN SODIUM IV SCH (13:46)
[2019-02-06] MEDS: VANCOMYCIN HCL IV SCH (13:46)
[2019-02-06] MEDS: ACETAMINOPHEN 325 MG TAB PO PRN (15:03)
[2019-02-06 16:26] LABS: Urine Creatinine 28.7 mg/dl; Urine Magnesium 10.2 mg/dl
[2019-02-06] MEDS ORDERED: ALUMINUM/MAGNESIUM/SIMETH (MAALOX MAX) 30 ML UDC PO PRN (17:56)
[2019-02-06] MEDS: CYANOCOBALAMIN 500 MCG TABLET (VITAMIN B-12) PO SCH (21:30)
--- NOTE | 2019-02-06 22:04 | Hospitalist Progress Note ---
Date of Service February 06, 2019 Assessment & Plan (1) Skin lesion of hand: right hand. either HSV lesions or Osler's nodes. suspect former. Continue acyclovir. (2) Hypomagnesemia: Her low magnesium continues to be quite severe. This is despite copious amounts of intravenous magnesium supplementation since admission. I appreciate Dr. Johnson's consultation and recommendations for this problem. Dr. Johnson feels that this is likely due to ongoing GI losses. Although the 24-hour urine for magnesium was modestly high it is unlikely that her hypomagnesemia is due to renal wasting. We will plan to give additional intravenous magnesium today and repeat her level first thing in the morning. Of note, the patient's PPI has been held due to concern it could be interfering with magnesium absorption. (3) Hypophosphatemia: Continue kphos neutral qid (4) Genital herpes: cont acyclovir (5) Septicemia: 2nd to coag neg staph - likely port infection no fever in nearly 3-4 days most recent blood cx's neg on IV vanco lock therapy appreciate ID consultation She will need at least 14 days of therapy for this problem (6) Morbid obesity with BMI of 45.0-49.9, adult: BMI 47 (7) Coagulase negative Staphylococcus bacteremia: see above in "septicemia" (8) Pancytopenia: All counts are slowly improving. CMV and EBV titers were negative. The pancytopenia is likely due to recent chemotherapy administration. Could consider B12 and folate levels to be complete. (9) Antineoplastic chemotherapy induced pancytopenia: as above (10) Essential hypertension: The patient's blood pressures continue to be elevated and that if this persists will increase her metoprolol and/or add an additional agent. (11) Hypothyroid: synthroid (12) Colon cancer metastasized to lung: stage 4 colon ca, followed by Dr. Ortiz (13) Elevated LFTs: slowly improving uncertain etiology EBV, CMV titers negative repeat LFTs in the next 48 hours (14) DVT prophylaxis: SCDs platelets too low for chemical means (15) Candidiasis of intestine: cont caspofungin stool cx grew out c albicans change to diflucan at some point? Unfortunately the patient will need to remain hospitalized until her magnesium level is improved Subjective Patient denies any significant changes from yesterday. She reports 2 stools 1 of which was loose. She denies any significant abdominal pain however she has had reflux symptoms throughout the day and requests Maalox. She denies any change in her baseline dyspnea on exertion. She reports that she is getting bored and is hoping that she can be discharged soon. He denies any fevers or chills. The vulvar lesions thought to be herpes are improving. She continues with several skin lesions on her right first and second fingers and these are largely unchanged. Constitutional: + fatigue and + anorexia; no fever and no chills Respiratory: no cough Cardiovascular: no chest pain Gastrointestinal: no abdominal pain Physical Exam Vital Signs (Past 24 Hours): Last Vital Signs Temp 36.5 C 02/06/19 18:53 Pulse 91 H 02/06/19 18:53 Resp 22 02/06/19 18:53 BP 160/99 H 02/06/19 18:53 Pulse Ox 97 02/06/19 18:53 Constitutional: + morbidly obese; no acute distress and not ill appearing ENMT: external ear and nose normal, oropharynx normal Respiratory: normal respiratory effort, lungs clear to auscultation Cardiovascular: Rate/Rhythm: regular rate and regular rhythm Heart Sounds: normal S1 and normal S2; no murmur Vessels: posterior tibial pulses present and dorsalis pedis pulses present; no JVD Gastrointestinal (Abdomen): normal bowel sounds, soft, nontender, no hepatosplenomegaly Inspection/Auscultation: abdomen not distended Percussi on/Palpation: + hernia (ventral, high abdomen) Skin: There are 3 what appears to be small ulcers on an erythematous base on the first and second digits of the right hand. there are no new lesions in comparison to yesterday's examination Psychiatric: A+Ox3, euthymic affect Results & Data Laboratory Results Laboratory Results - last 24 hr 02/06/19 02/06/19 02/06/19 07:36 07:36 07:36 WBC 3.43 L RBC 3.72 L Hgb 11.2 L Hct 35.1 L MCV 94.4 MCH 30.1 MCHC 31.9 L RDW Std Deviation 47.6 H RDW Coeff of Marcell 13.7 Plt Count 37 L MPV 12.5 H Neutrophils % (Manual) 72.3 Lymphocytes % (Manual) 4.5 Reactive Lymphs % (Man) 8.9 Monocytes % (Manual) 10.7 Eosinophils % (Manual) 2.7 Plasma Cell % (Manual) 0.9 Neutrophils # (Manual) 2.48 Total Absolute Neuts 2.48 Lymphocytes # (Manual) 0.15 L Reactive Lymphs # 0.31 Total Abs Lymphocytes 0.46 L Monocytes # (Manual) 0.37 Eosinophils # (Manual) 0.09 Plasma Cell # (Manual) 0.03 H Platelet Estimate Decreased Sodium 142 Potassium 3.3 L Chloride 103 Carbon Dioxide 33 H Anion Gap 6.0 BUN 2 L Creatinine 0.60 Est Cr Clr Drug Dosing 122.5 Est GFR ( Amer) 110.1 Est GFR (Non-Af Amer) 95.0 BUN/Creatinine Ratio 3.3 L Glucose 87 Calcium 7.7 L Magnesium 1.0 L Specimen Hemolysis Urine Total Volume Urine Creatinine Ur Creatinine 24 Hour Urine Magnesium Ur Magnesium 24 Hr Vancomycin Trough 15.4 02/06/19 12:10 WBC RBC Hgb Hct MCV MCH MCHC RDW Std Deviation RDW Coeff of Marcell Plt Count MPV Neutrophils % (Manual) Lymphocytes % (Manual) Reactive Lymphs % (Man) Monocytes % (Manual) Eosinophils % (Manual) Plasma Cell % (Manual) Neutrophils # (Manual) Total Absolute Neuts Lymphocytes # (Manual) Reactive Lymphs # Total Abs Lymphocytes Monocytes # (Manual) Eosinophils # (Manual) Plasma Cell # (Manual) Platelet Estimate Sodium Potassium Chloride Carbon Dioxide Anion Gap BUN Creatinine Est Cr Clr Drug Dosing Est GFR ( Amer) Est GFR (Non-Af Amer) BUN/Creatinine Ratio Glucose Calcium Magnesium Specimen Hemolysis Urine Total Volume 3650 Urine Creatinine 28.7 Ur Creatinine 24 Hour 1.0 Urine Magnesium 10.2 Ur Magnesium 24 Hr 372.3 H Vancomycin Trough (1) Genital herpes Herpes simplex infection site: vulvovaginitis Qualified Code(s): A60.04 - Herpesviral vulvovaginitis (2) Hypothyroid Hypothyroidism type: acquired Qualified Code(s): E03.9 - Hypothyroidism, unspecified
[2019-02-06] MEDS: SUCRALFATE 1 GM/10 ML UDC PO SCH (22:54)
[2019-02-06] MEDS: SERTRALINE HCL 50 MG TABLET PO SCH (22:55)
[2019-02-06] MEDS: DEXAMETHASONE CONC 3.75 MG, NYSTATIN 30 ML, DiphenhydrAMINE Syrup 300 MG, ORA-SWEET SYR... PO SCH (22:59)
[2019-02-07] MEDS: ACYCLOVIR SOD 500 MG in DEXTROSE 5% 100 ML IV SCH ×3 (03:24→17:22)
[2019-02-07] MEDS: LEVOTHYROXINE SODIUM 125 MCG TABLET PO SCH (05:52)
[2019-02-07] MEDS: ONDANSETRON INJ 2 MG/ML 2 ML VIAL IV PRN (07:45)
[2019-02-07] MEDS: VANCOMYCIN HCL 1,250 MG in SODIUM CHLORIDE 0.9% 250 ML IV SCH ×2 (07:45→21:12)
[2019-02-07] MEDS: DEXAMETHASONE CONC 3.75 MG, NYSTATIN 30 ML, DiphenhydrAMINE Syrup 300 MG, ORA-SWEET SYR... PO SCH ×4 (07:46→21:28)
[2019-02-07] MEDS: POTASSIUM CHLORIDE 20 MEQ TABCR PO SCH ×3 (07:52→21:24)
[2019-02-07] MEDS: POT PHOSPHATE MONOBASIC W/ SOD TAB PO SCH ×4 (07:53→21:21)
[2019-02-07] MEDS: METOPROLOL TARTRATE 50 MG TAB PO SCH ×2 (07:53→21:22)
[2019-02-07] MEDS: SUCRALFATE 1 GM/10 ML UDC PO SCH ×4 (07:53→21:21)
[2019-02-07] MEDS: MULTIVITAMIN TAB PO SCH (07:53)
[2019-02-07] MEDS: BECLOMETHASONE DIP HFA 80 MCG 8.7G INH INH SCH ×2 (07:54→21:28)
[2019-02-07 08:51] LABS: Hematocrit (blood only) 35.7 % (37-47); Hemoglobin 11.4 g/dL (12.0-16.0); Mean Corpuscular Hgb Conc 31.9 g/dL (32-36); Mean Corpuscular Volume 94.9 fL (80-100); Mean Platelet Volume 11.2 fL (7.4-10.4); Platelet Count 93 K/uL (130-400); RDW Coefficient of Variation 13.7 % (11.5-14.5); RDW Standard Deviation 47.5 fL (36.4-46.3); Red Blood Count 3.76 M/uL (4.2-5.4)
[2019-02-07 08:57] LABS: Basophils # (auto) 0.02 K/uL (0-0.2); Basophils % (auto) 0.5 %; Eosinophils # (auto) 0.06 K/uL (0-0.5); Eosinophils % (auto) 1.5 %; Giant Platelets 1+; Immature Granulocytes # (auto) 0.02 K/uL (0.00-0.02); Immature Granulocytes % (auto) 0.5 %; Lymphocytes # (auto) 0.87 K/uL (1.2-3.4); Lymphocytes % (auto) 22.3 %; Monocytes # (auto) 0.52 K/uL (0.11-0.59); Monocytes % (auto) 13.3 %; Neutrophils # (auto) 2.41 K/uL (1.4-6.5); Neutrophils % (auto) 61.9 %
[2019-02-07 08:59] LABS: BUN Creatinine Ratio 4.6 (10-20); Calcium 7.7 mg/dl (8.5-10.1); Creatinine Clr Calc Pharmacy 103.9 ml/min; Est GFR (African American) 104.6; Est GFR (Non-African American) 90.3; Magnesium 1.2 mg/dl (1.8-2.4); Potassium 3.3 mmol/L (3.5-5.1)
[2019-02-07] MEDS: CASPOFUNGIN 35 MG in SODIUM CHLORIDE 0.9% 250 ML IV SCH (09:57)
[2019-02-07] MEDS: PROCHLORPERAZINE MALEATE 10 MG TAB PO PRN (10:39)
[2019-02-07] MEDS: MAGNESIUM OXIDE 400 MG TAB PO SCH ×2 (11:08→21:23)
--- NOTE | 2019-02-07 11:28 | Nephrology Progress Note ---
Date of Service February 07, 2019 Assessment & Plan (1) Hypomagnesemia: Hypomagnesemia due to multiple factors including chronic PPI therapy, Erbituxan therapy and ongoing diarrhea. Patient is asymptomatic but has a moderate to severe deficit. Replacement will require ~ 8 g Magnesium Sulfate a nd may be higher due to ongoing diarrhea / intestinal losses. -- Laboratory studies reveal high urinary Mg levels. This is likely related to aggressive IV supplementation -- Mg losses are likely from GI source. Doubt that Amiloride will be of benefit -- Recommend continuing IV Mg supplementation (ie., 6 - 8 g IV over 12 hours and then redose according to blood level) -- IV Mg supplementation can lead to rapid increase in serum Mg and inhibition of Mg uptake by the loop of Henle. Patients usually benefit from oral Mg due to slower absorption allowing cellular uptake. Recommend starting Mag-Ox 1600 mg po daily in addition to IV supplementation and close monitoring of blood levels -- Stop PPI therapy -- Recommend consultation w/ GI for assistance with diarrhea management and alternative to PPI therapy -- Up to 55% incidence of hypomagnesemia associated w/ Erbitux therapy. Recommend discussion w/ Oncology to determine whether they can provide outpatient IV magnesium supplementation while on chemotherapy (2) Candidiasis of intestine: (3) Coagulase negative Staphylococcus bacteremia: (4) Antineoplastic chemotherapy induced pancytopenia: (5) Colon cancer metastasized to lung: Subjective Mrs. Bee was seen & examined in her hospital room this morning. Her was present at the time of my evaluation. Mrs. Bee reports ongoing diarrhea but cannot quantitate the frequency or consistency. RN notes document one BM yesterday Gastrointestinal: + heartburn and + diarrhea/loose stools Physical Exam Vital Signs (Past 24 Hours): Last Vital Signs Temp 36.7 C 02/07/19 06:55 Pulse 86 02/07/19 06:55 Resp 18 02/07/19 06:55 BP 169/98 H 02/07/19 06:55 Pulse Ox 96 02/07/19 06:55 Constitutional: + obese Eyes: PERRL, conjunctivae normal, anicteric sclerae Neck: trachea midline, no thyromegaly Respiratory: normal respiratory effort, lungs clear to auscultation Cardiovascular: RRR, no murmur, no edema Gastrointestinal (Abdomen): Inspection/Auscultation: + abdomen distended and normal bowel sounds Percussion/Palpation: abdomen soft; abdomen nontender Results & Data Laboratory Results Laboratory Tests 02/07/19 02/07/19 08:01 08:01 WBC 3.90 L Hgb 11.4 L Hct 35.7 L Plt Count 93 L D Sodium 143 Potassium 3.3 L Chloride 102 Carbon Dioxide 36 H BUN 3 L Creatinine 0.70 Magnesium 1.2 L
[2019-02-07] MEDS: COLESTIPOL HCL 1 GM TAB PO SCH (13:25)
--- NOTE | 2019-02-07 14:11 | Infectious Disease Progress Nt ---
Date of Service February 07, 2019 Assessment & Plan (1) Septicemia: cotninue IV abx as planned per Dr. Grossman, can followup with Dr. grossman post d/c. Agree that finger lesions likely herpetic in nature, improving, could offer valtrex x 7 days but improving clinically. Subjective pt seen in followup, undergoing therapy with IV vanco for suspected infected port with [employer], ongoing lock therapy. spoke with primary today, states pt with painful ulceration over right first and second fingers, concerned for herpetic infection. she states pain much better today. denies f/c. no abd pain, no n/v/d, no cp, sob, cough. slight rodriguez. no neck stiffness, no visual changes. toleraitng abx. afebrile. wbc slightly increased today, most recent blood cultures negative and final. all remaining ros reviewed and are negative. Physical Exam Vital Signs (Past 24 Hours): Last Vital Signs Temp 36.7 C 02/07/19 11:26 Pulse 80 02/07/19 11:26 Resp 20 02/07/19 11:26 BP 162/93 H 02/07/19 11:26 Pulse Ox 97 02/07/19 11:26 Constitutional: WD/WN, vitals as above Eyes: PERRL, conjunctivae normal, anicteric sclerae ENMT: external ear and nose normal, oropharynx normal Neck: normal visual inspection Respiratory: normal respiratory effort, lungs clear to auscultation Cardiovascular: RRR, no murmur, no edema Gastrointestinal (Abdomen): normal bowel sounds, soft, nontender, no hepatosplenomegaly Musculoskeletal: no cyanosis or clubbing, extremities motor strength 5/5 Skin: no rashes, warm and dry right hand first and second digit, small scabbed areas noted, improved per pt, no surrounding warmth, no erythema, no drainage, no open areas, no vesicles noted. right chest wall port dressing intact, no surrounding warmth, erythema, tenderness noted Psychiatric: A+Ox3, euthymic affect Results & Data Laboratory Results Microbiology 01/31/19 08:31 Blood Blood Culture - Final No growth 01/31/19 08:23 Blood Blood Culture - Final No growth 01/29/19 19:05 Blood Blood Culture - Final Coag neg staph not lugdunensis 01/29/19 18:42 Blood Blood Culture - Final No growth 01/31/19 12:31 Stool Shiga Toxin Test - Final 01/31/19 12:31 Stool Stool Culture - Final Johana albicans 01/28/19 09:31 Blood Blood Culture - Final Coag neg staph not lugdunensis Coag neg staph not lugdunensis#2 01/28/19 09:21 Blood Blood Culture - Final No growth 01/30/19 20:20 Urine,Clean Catch Urine Culture - Final No growth - less than 1,000 colonies/mL. 01/31/19 12:31 Stool WBC Smear - Final 01/28/19 10:40 Urine,Clean Catch Urine Culture - Final More than three types of organisms present, all low counts mixed probable skin liliya. No further identifications or sensitivities to follow.
[2019-02-07] MEDS ORDERED: METOPROLOL TARTRATE 50 MG TAB PO STA (16:13)
[2019-02-07 19:05] LABS: Potassium 3.5 mmol/L (3.5-5.1)
[2019-02-07] MEDS ORDERED: MAGNESIUM SULFATE / D5W 1 GM/100 ML BAG IV STA (19:27)
[2019-02-07] MEDS: MAGNESIUM SULFATE / D5W 1 GM/100 ML BAG IV SCH ×2 (21:20→23:42)
[2019-02-07] MEDS: SERTRALINE HCL 50 MG TABLET PO SCH (21:21)
[2019-02-07] MEDS: APIXABAN 5 MG TABLET PO SCH (21:23)
[2019-02-07] MEDS: CYANOCOBALAMIN 500 MCG TABLET (VITAMIN B-12) PO SCH (21:24)
--- NOTE | 2019-02-07 21:27 | Hospitalist Progress Note ---
Date of Service February 07, 2019 Assessment & Plan (1) Skin lesion of hand: right hand. either HSV lesions or Osler's nodes. suspect former. Continue acyclovir. change to PO acyclovir tomorrow. (2) Hypomagnesemia: Her low magnesium continues to be quite severe. Holding PPI cont PO mag another round of IV mag slowly repeat mag in AM (3) Hypophosphatemia: Continue kphos neutral qid (4) Genital herpes: cont acyclovir (5) Septicemia: 2nd to coag neg staph - likely port infection no fever in several days most recent blood cx's neg on IV vanco lock therapy appreciate ID consultation She will need at least 14 days of therapy for this problem day #9 of such today (6) Morbid obesity with BMI of 45.0-49.9, adult: BMI 47 (7) Coagulase negative Staphylococcus bacteremia: see above in "septicemia" (8) Pancytopenia: All counts are slowly improving. CMV and EBV titers were negative. The pancytopenia is likely due to recent chemotherapy administration. Could consider B12 and folate levels to be complete. (9) Antineoplastic chemotherapy induced pancytopenia: as above (10) Essential hypertension: uncontrolled increase betablocker. (11) Hypothyroid: synthroid (12) Colon cancer metastasized to lung: stage 4 colon ca, followed by Dr. Ortiz (13) Elevated LFTs: slowly improving uncertain etiology EBV, CMV titers negative repeat LFTs tomorrow AM (14) DVT prophylaxis: eliquis resumed (15) Candidiasis of intestine: cont caspofungin stool cx grew out c albicans change to diflucan - tomorrow? Unfortunately the patient will need to remain hospitalized until her magnesium level is improved she voices understanding Subjective no major changes overnight genital HSV and right hand suspected HSV improved 2 stools today - no diarrhea appetite still poor no dyspnea above baseline Constitutional: no fever Respiratory: no cough Cardiovascular: no chest pain Gastrointestinal: no abdominal pain denies reflux Physical Exam Vital Signs (Past 24 Hours): Last Vital Signs Temp 36.6 C 02/07/19 18:50 Pulse 86 02/07/19 18:50 Resp 20 02/07/19 18:50 BP 135/83 02/07/19 18:50 Pulse Ox 92 02/07/19 18:50 Constitutional: + morbidly obese; no acute distress and not ill appearing ENMT: external ear and nose normal, oropharynx normal Mouth: no oral mucosal abnormality (MMM today) Respiratory: normal respiratory effort, lungs clear to auscultation Cardiovascular: Rate/Rhythm: regular rate and regular rhythm Heart Sounds: normal S1 and normal S2; no murmur Vessels: posterior tibial pulses present and dorsalis pedis pulses present; no JVD Gastrointestinal (Abdomen): normal bowel sounds, soft, nontender, no hepatosplenomegaly Inspection/Auscultation: abdomen not distended Percussion/Palpation: + hernia (ventral, high abdomen) Skin: hand lesions - right first/2nd digits - improving Psychiatric: A+Ox3, euthymic affect Results & Data Laboratory Results Laboratory Results - last 24 hr 02/07/19 02/07/19 02/07/19 08:01 08:01 18:33 WBC 3.90 L RBC 3.76 L Hgb 11.4 L Hct 35.7 L MCV 94.9 MCH 30.3 MCHC 31.9 L RDW Std Deviation 47.5 H RDW Coeff of Marcell 13.7 Plt Count 93 L D MPV 11.2 H Immature Gran % (Auto) 0.5 Neut % (Auto) 61.9 Lymph % (Auto) 22.3 [place] % (Auto) 13.3 Eos % (Auto) 1.5 Baso % (Auto) 0.5 Immature Gran # (Auto) 0.02 Neut # (Auto) 2.41 Lymph # (Auto) 0.87 L [place] # (Auto) 0.52 Eos # (Auto) 0.06 Baso # (Auto) 0.02 Giant Platelets 1+ Sodium 143 Potassium 3.3 L 3.5 Chloride 102 Carbon Dioxide 36 H Anion Gap 5.0 BUN 3 L Creatinine 0.70 Est Cr Clr Drug Dosing 103.9 Est GFR ( Amer) 104.6 Est GFR (Non-Af Amer) 90.3 BUN/Creatinine Ratio 4.6 L Glucose 92 Calcium 7.7 L Magnesium 1.2 L 1.0 L (1) Genital herpes Herpes simplex infection site: vulvovaginitis Qualified Code(s): A60.04 - Herpesviral vulvovaginitis (2) Hypothyroid Hypothyroidism type: acquired Qualified Code(s): E03.9 - Hypothyroidism, unspecified
[2019-02-08] MEDS: MAGNESIUM SULFATE / D5W 1 GM/100 ML BAG IV SCH ×2 (01:45→03:39)
[2019-02-08] MEDS: ACYCLOVIR SOD 500 MG in DEXTROSE 5% 100 ML IV SCH ×2 (03:40→10:52)
[2019-02-08] MEDS: LEVOTHYROXINE SODIUM 125 MCG TABLET PO SCH (05:43)
[2019-02-08 07:55] LABS: Basophils # (auto) 0.04 K/uL (0-0.2); Basophils % (auto) 0.8 %; Eosinophils # (auto) 0.08 K/uL (0-0.5); Eosinophils % (auto) 1.6 %; Hematocrit (blood only) 35.3 % (37-47); Hemoglobin 11.2 g/dL (12.0-16.0); Immature Granulocytes # (auto) 0.02 K/uL (0.00-0.02); Immature Granulocytes % (auto) 0.4 %; Lymphocytes # (auto) 0.97 K/uL (1.2-3.4); Lymphocytes % (auto) 19.6 %; Mean Corpuscular Hgb Conc 31.7 g/dL (32-36); Mean Corpuscular Volume 95.4 fL (80-100); Mean Platelet Volume 11.1 fL (7.4-10.4); Monocytes # (auto) 0.63 K/uL (0.11-0.59); Monocytes % (auto) 12.7 %; Neutrophils # (auto) 3.21 K/uL (1.4-6.5); Neutrophils % (auto) 64.9 %; Platelet Count 120 K/uL (130-400); RDW Coefficient of Variation 13.7 % (11.5-14.5); RDW Standard Deviation 47.7 fL (36.4-46.3); White Blood Count 4.95 K/uL (4.8-10.8)
[2019-02-08] MEDS: VANCOMYCIN HCL 1,250 MG in SODIUM CHLORIDE 0.9% 250 ML IV SCH (08:29)
[2019-02-08] MEDS: DEXAMETHASONE CONC 3.75 MG, NYSTATIN 30 ML, DiphenhydrAMINE Syrup 300 MG, ORA-SWEET SYR... PO SCH ×2 (08:29→10:53)
[2019-02-08] MEDS: APIXABAN 5 MG TABLET PO SCH (08:30)
[2019-02-08] MEDS: MULTIVITAMIN TAB PO SCH (08:30)
[2019-02-08] MEDS: MAGNESIUM OXIDE 400 MG TAB PO SCH (08:30)
[2019-02-08] MEDS: METOPROLOL TARTRATE 50 MG TAB PO SCH (08:30)
[2019-02-08] MEDS: POT PHOSPHATE MONOBASIC W/ SOD TAB PO SCH ×2 (08:31→13:09)
[2019-02-08] MEDS: POTASSIUM CHLORIDE 20 MEQ TABCR PO SCH ×2 (08:31→13:09)
[2019-02-08 08:32] LABS: Albumin Globulin Ratio 0.7 (0.9-2); Albumin Level 2.6 gm/dl (3.4-5.0); BUN Creatinine Ratio 5.1 (10-20); Bilirubin,Total 0.5 mg/dl (0.2-1); Calcium 7.8 mg/dl (8.5-10.1); Est GFR (African American) 93.3; Est GFR (Non-African American) 80.5; Globulin 3.5 gm/dl (2.5-4.0); Magnesium 1.8 mg/dl (1.8-2.4); Potassium 3.5 mmol/L (3.5-5.1); Total Protein 6.1 gm/dl (6.4-8.2)
[2019-02-08] MEDS: BECLOMETHASONE DIP HFA 80 MCG 8.7G INH INH SCH (08:32)
[2019-02-08] MEDS: SUCRALFATE 1 GM/10 ML UDC PO SCH ×2 (08:32→13:09)
[2019-02-08] MEDS: CASPOFUNGIN 35 MG in SODIUM CHLORIDE 0.9% 250 ML IV SCH (10:52)
--- NOTE | 2019-02-08 11:04 | Nephrology Progress Note ---
Date of Service February 08, 2019 Assessment & Plan (1) Hypomagnesemia: Hypomagnesemia due to multiple factors including chronic PPI therapy, Erbituxan therapy and ongoing diarrhea. Patient is asymptomatic but has a moderate to severe deficit. Replacement will require ~ 8 g Magnesium Sulfate a nd may be higher due to ongoing diarrhea / intestinal losses. -- Mg is up to 1.8 this am -- Recommend continue Mag-Ox 800 mg po BID -- Continue to hold PPI therapy -- Recommend consultation w/ GI for assistance with diarrhea management and alternative to PPI therapy -- Patient reports bimonthly follow up visits w/ Oncology. Recommend contacting Oncology to have them monitor Mg and provide supplementation via infusion center as needed (2) Candidiasis of intestine: (3) Coagulase negative Staphylococcus bacteremia: (4) Antineoplastic chemotherapy induced pancytopenia: (5) Colon cancer metastasized to lung: Subjective Mrs. Bee was seen & examined in her hospital room this morning. Her was present at the time of my evaluation. Mrs. Bee reports one liquid BM yesterday. clinical staff anesthesiologist has charted three. Mrs. Bee denies fever, angina, dyspnea or abdominal pain. Gastrointestinal: + heartburn and + diarrhea/loose stools Physical Exam Vital Signs (Past 24 Hours): Last Vital Signs Temp 36.7 C 02/08/19 07:22 Pulse 86 02/08/19 07:22 Resp 20 02/08/19 07:22 BP 151/85 H 02/08/19 07:22 Pulse Ox 97 02/08/19 07:22 Constitutional: + obese Eyes: PERRL, conjunctivae normal, anicteric sclerae Neck: trachea midline, no thyromegaly Respiratory: normal respiratory effort, lungs clear to auscultation Cardiovascular: RRR, no murmur, no edema Gastrointestinal (Abdomen): Inspection/Auscultation: + abdomen distended and normal bowel sounds Percussion/Palpation: abdomen soft; abdomen nontender Results & Data Laboratory Results Laboratory Tests 02/08/19 02/08/19 07:31 07:31 WBC 4.95 Hgb 11.2 L Hct 35.3 L Plt Count 120 L Sodium 144 Potassium 3.5 Chloride 101 Carbon Dioxide 37 H BUN 4 L Creatinine 0.77 Calcium 7.8 L Magnesium 1.8 Albumin 2.6 L
[2019-02-08] MEDS: COLESTIPOL HCL 1 GM TAB PO SCH (13:09)
[2019-02-08] MEDS: HEPARIN SODIUM IV SCH (13:10)
[2019-02-08] MEDS: VANCOMYCIN HCL IV SCH (13:10)
[2019-02-13 15:08] LABS: NEO FLOW Lymph/Leuk Stnd SEE NEO MISC
--- NOTE | 2019-02-14 05:37 | Discharge Summary ---
Date of Service date of admission - 01/28/19 date of discharge - 02/08/19 Admission HPI Per Admitting Provider This is a 68yo female with history of stage 4 colon cancer with metastasis to the lung, current on chemotherapy with Erbitux, along with HTN, Hyperlipidemia, GERD, hypothyroidism, obesity with BMI of 48, hx of DVT on eliquis - who presented with acute generalized malaise. Patient noted that she was in her normal state of health and feeling well yesterday but then in the early afternoon she started to get chills and shakes. She admitted to poor oral intake due to nausea and had vomited twice. Patient denied any diarrhea or constipation. She did not take any of her morning medications. She denied any known sick contacts. T-max = 38.2 here in the ER and was tachycardic with heart rate in 120s. Patient denied any cough, sputum production, or abdominal pain. Patient's last chemotherapy was about 1 week ago and went well. Principal Diagnosis septicemia 2nd to coag negative staph port infection Discharge Exam Constitutional + morbidly obese; no acute distress and not ill appearing ENMT external ear and nose normal, oropharynx normal Mouth: no oral mucosal abnormality (MMM today) Respiratory normal respiratory effort, lungs clear to auscultation Auscultation: no crackles Cardiovascular Rate/Rhythm: regular rate and regular rhythm Heart Sounds: normal S1 and normal S2; no murmur Vessels: posterior tibial pulses present and dorsalis pedis pulses present; no JVD Gastrointestinal (Abdomen) normal bowel sounds, soft, nontender, no hepatosplenomegaly Inspection/Auscultation: abdomen not distended Percussion/Palpation: + hernia (ventral, high abdomen) Skin port, right chest, clean; right hand first/second fingers with HSV lesions (3-4 in quant Psychiatric A+Ox3, euthymic affect Discharge Data Allergies Allergy/AdvReac Type Severity Reaction Status Date / Time thiopental Allergy Unknown INCREASED Verified 02/10/19 09:41 BLEEDING WITH WISDOM TEETH SURG meperidine AdvReac Mild N/V Verified 02/10/19 09:41 morphine AdvReac Mild N/V Verified 02/10/19 09:41 Consultations 1. [facility] - Femi Johnson MD 2. [facility] Infectious disease 3. PT, OT 4. oncology - Franklin Ortiz MD Ordered Studies 1. CT head - no acute process. 2. HIDA scan - negative. 3. gall bladder ultrasound - (2 separate studies) IMPRESSION: 1. Cholelithiasis without convincing evidence of cholecystitis. 2. Hepatomegaly and heterogeneous liver parenchyma suggests underlying hepatic steatosis or fibrosis. 3. Hypoechoic focus along the periphery of the right hepatic lobe may represent focal fatty sparing or may be artifactual as no abnormality was evident on the most recent contrast enhanced CT. 4. Mild right pelvocaliectasis. Mild hydronephrosis is difficult to exclude. Alternatively, this could represent parapelvic cysts. 4. CT chest/abd/pelvis - IMPRESSION: 1. Cholelithiasis with mild gallbladder wall thickening and trace pericholecystic edema is noted without significant gallbladder distention. Correlate clinically to exclude acute cholecystitis. 2. Irregular masslike area of consolidation about the medial right upper lung is unchanged in size and appearance from comparison study dated 12/08/2018. 3. Trace bilateral pleural effusions with subsegmental left basilar atelectasis. 4. Postoperative changes from prior pulmonary resection. 5. 12mm thyroid nodule with calcification, left lobe. 5. echocardiogram - * EF 60% * no obvious valvular vegetations Hospital Course (1) Septicemia: 2nd to coag neg staph - likely due to port infection. She was seen in consult by infectious disease and IV vancomycin "lock therapy" was recommended for a total of 14 days. Repeat blood cultures later in her stay were negative ensuring sterility. Echo did not show any obvious valvular vegetations. After discharge she will need 2 more infusions of vancomycin to complete her lock therapy. First dose will be on February 10 and second dose will be on February 12. She will receive these at the [facility]. (2) Infection due to Port-A-Cath: see above in "septicemia" (3) Coagulase negative Staphylococcus bacteremia: see above in "septicemia" (4) Hypomagnesemia: The patient had severe hypomagnesemia throughout her entire stay. Presenting magnesium level was 1. She had copious amounts of IV/PO magnesium and the level proved to be refractory to therapy. She was seen in consult by nephrology. 24-hour urine for magnesium was collected and was minimally elevated. However it was not suspected that the low magnesium was due to renal wasting. Ultimately it was felt that the low magnesium was due to poor oral intake, GI losses via diarrhea, or due to side effects of chemotherapy. At discharge she will take magnesium oxide 800mg BID. She will need a repeat BMP & mag level on February 10 about the time of her IV vancomycin lock therapy. She was also instructed to stop her prilosec in the event PPI therapy was interfering with magnesium gut absorption. (5) Skin lesion of hand: right hand. Likely HSV lesions. These occurred about the same time as she developed apparent genital HSV. She received IV acyclovir while hospitalized. At discharge she was transitioned to PO valtrex for a few more days. (6) Hypophosphatemia: Received phosphorus supplementation while here. (7) Genital herpes: Received IV acyclovir while hospitalized. (8) Morbid obesity with BMI of 45.0-49.9, adult: BMI 47 (9) Pancytopenia: All counts slowly improved during the stay. The pancytopenia was likely due to recent chemotherapy administration. CMV and EBV titers were negative. At discharge counts were acceptable enough for safe discharge. (10) Antineoplastic chemotherapy induced pancytopenia: as above (11) Essential hypertension: uncontrolled during her stay but improved with multiple adjustments in medications. (12) Hypothyroid: Remains on synthroid. TSH on 11/2018 was normal at 3. (13) Colon cancer metastasized to lung: stage 4 colon cancer, followed by Dr. Ortiz in the [facility]. (14) Elevated LFTs: Exact cause was uncertain but the levels slowly improved while here. This may have been a reactive process to her septicemia. RUQ u/s did not show acute cholecystitis. EBV, CMV titers negative. LFTs on 02/08/19 had normalized. (15) Candidiasis of intestine: Stool culture grew out jeremy albicans. ID recommended IV caspfungin since she had active diarrhea while hospitalized. Stools did improve while here. She was changed to diflucan at discharge. Total Time Total Time Spent Total Time Spent (In Minutes): 50 Total Time Includes: Examination of the Patient, Discharge Planning, Medication Reconciliation and Communication With Other Providers Discharge Plan Discharge Items Patient Disposition: Home - Self-Care Reason For Visit: FEBRILE ILLNESS, COLON CANCER WITH METS TO LUNG Discharge Diagnosis: Port Infection; diarrhea; low potassium; low magnesium; herpes infection. Discharge Goals: Diagnostic testing and Therapeutic intervention Activity: As commented below Activity Comment: as tolerated Non-emergency contact: Primary Care Provider and Oncologist Call non-emergency contact if: you have any medication questions, your symptoms worsen, your pain is not controlled and your temperature is above 100.5 Follow-up/Referrals: Willis Grossman MD [Physician] - 02/21/19 2:00 pm (Please, follow up at [facility] Infectious Disease Office with Dr. Willis Grossman on TuesdayFebruary 21 at 2:00 pm. *This office is located in [address] of [facility] - big building next to this [facility]. If you need to change this appointment, call the office at [phone].) Raimundo Garcia MD [Primary Care Provider] - 02/16/19 10:30 am (Please, follow up at Dr. Garcia's office with his associate, Danelle POWELL, on TuesdayFebruary 16 at 10:30 am. *If you need to change this appointment, call their office at [phone].) Diet: Low Fiber Other Ambulatory Orders: Basic Metabolic Panel (Routine) Timeframe: 2 Days Location: Determined by Patient Ordered By: Antonio Darden Complete Blood Count with Diff (Routine) Timeframe: 2 Days Location: Determined by Patient Ordered By: Antonio Darden Magnesium (Routine) Timeframe: 2 Days Location: Determined by Patient Ordered By: Antonio Darden Addtl Provider Instructions: From Dr Darden - 1. Please report to the [facility] on February 10 at 830am AND February 12 at 830am for antibiotics for your port infection. 2. Please have blood work drawn on February 10. Bring lab slips to the [facility] for blood work. 3. Please STOP your omeprazole. 4. Please STOP your vitamin C tablet. 5. Note that we have increased your metoprolol to 75mg twice a day. 6. INCREASE your potassium to 20meq twice a day. 7. Follow-up - in addition to the scheduled follow-ups already listed please see Dr. Ramirez within 1 week. Return to [facility] if- * fevers over 100.5 degrees * worsening diarrhea * worsening abdominal pain * worsening shortness of breath * chest pain * any other concerns Prescriptions: New magnesium oxide 400 mg (241.3 mg magnesium) Tablet 800 mg PO BID Qty: 120 RF: 2 ranitidine HCl 150 mg Tablet 150 mg PO BID Qty: 60 RF: 2 colestipol [Colestid] 1 gram Tablet 1 g PO DAILY@1400 Qty: 30 RF: 1 vancomycin 1.25 gram recon soln 1.25 gm IV DIRECTED Qty: 2 RF: 0 nystatin 100,000 unit/mL suspension 5 ml PO ACHS 10 Days Qty: 200 RF: 0 sucralfate [Carafate] 1 gram tablet 1 gm PO ACHS 7 Days Qty: 28 RF: 0 Continued apixaban 5 mg tablet 5 mg PO BID RF: 0 ondansetron HCl 8 mg tablet 8 mg PO Q8 PRN (Reason: Nausea And Vomiting) RF: 0 sertraline 50 mg tablet 50 mg PO HS RF: 0 simvastatin 40 mg tablet 40 mg PO QPM RF: 0 aspirin [Aspirin Childrens] 81 mg Tablet,Chewable 81 mg PO DAILY RF: 0 beclomethasone dipropionate 80 mcg/actuation HFA aerosol breath activated 2 puff Inhalation BID RF: 0 multivitamin Tablet 1 tab PO DAILY RF: 0 albuterol sulfate 90 mcg/actuation HFA aerosol inhaler 2 puff Inhalation Q6 PRN (Reason: Shortness Of Breath Or Wheezing) RF: 0 [id number]-[id number] C-Mn [Glucosamine Chondroitin MaxStr] 500-400 mg Capsule 1 cap PO BID RF: 0 levothyroxine 125 mcg Capsule 125 mcg PO QAM RF: 0 cyanocobalamin (vitamin B-12) 1,000 mcg Capsule 1,000 mcg PO HS RF: 0 ergocalciferol (vitamin D2) [Vitamin D2] 50,000 unit Capsule 50,000 unit PO DIRECTED RF: 0 Changed potassium chloride 20 mEq tablet,ER particles/crystals 20 meq PO BID Qty: 60 RF: 1 metoprolol tartrate 50 mg tablet 75 mg PO BID Qty: 90 RF: 2 Discontinued omeprazole 20 mg capsule,delayed release(DR/EC) 20 mg PO QAM RF: 0 ascorbic acid (vitamin C) 1,000 mg Tablet 1 g PO QAM RF: 0 Stand-Alone Forms: [facility] Discharge Orders: Discharge Order (Routine); Ordered 02/08/19 Ordered By: Antonio Darden Admission Data Admit Date/Time: 01/28/19 12:14 Attending Provider: Antonio Darden Admit Provider: Antonio Darden Primary Care Provider: Raimundo Garcia Other Providers: Antonio Darden ; Marilee Dodd ; Franklin Ortiz ; Femi Johnson Service: Medical Other Interventions: Discharge Summary Assessment (RN) Last Done: 02/08/19 16:01 Pending Studies at Discharge: No DC Date/Time DO NOT enter until pt leaves facility: 02/08/19 17:11
== END 2019-02-08 17:11 | disposition home or self-care (01) ==
LOC: ED 08:17 → SUATTDRO 12:14 → 4E 12:14

== ENCOUNTER 2019-02-10 08:07 | Inpatient (IN) ==
[2019-02-10] MEDS ORDERED: LORazepam 1 MG/2 ML VIAL IV STA (08:15)
[2019-02-10] MEDS ORDERED: LORazepam 2 MG/4 ML VIAL ONE (08:20)
[2019-02-10] MEDS ORDERED: SODIUM CHLORIDE 0.9% 1000ML 500 ML IV ONE (08:25)
[2019-02-10 08:37] LABS: iSTAT Creatinine 0.9 mg/dl (0.6-1.3); iSTAT Hemoglobin 14.6 g/dl (12.0-16.0); iSTAT Ionized Calcium 0.99 mmol/l (1.12-1.32); iSTAT Potassium 3.7 mEq/L (3.3-5.0)
[2019-02-10] MEDS ORDERED: OPTIRAY 320 125ml IV PRN (08:53)
--- NOTE | 2019-02-10 08:54 | CT Scan Report ---
CT SCAN OF THE BRAIN WITHOUT IV CONTRAST CLINICAL HISTORY: Change in mental status. COMPARISON STUDY: CT of the brain dated 01/28/2019. TECHNIQUE: Unenhanced axial CT scan of the brain is performed from the vertex to the skull base. A do se lowering technique was utilized adhering to the principles of ALARA. FINDINGS: Brain parenchyma: There is age-related involutional change noting minimal subcortical and periventric ular microangiopathic disease. There is no hemorrhage, mass effect, or evidence of acute territorial ischemia by CT criteria. Gordon-white matter differentiation is preserved. No extra-axial fluid collect ion is seen. Ventricles, sulci, cisterns: Prominent secondary to involutional change. Intracranial vasculature: There is atherosclerotic calcification of the cavernous carotid arteries. Calvarium: Unremarkable. Sinuses and mastoids: There is a small retention cyst in the right maxillary antrum. The remaining vi sualized paranasal sinuses are clear. There is a right mastoid effusion. The left mastoid air cells a re well pneumatized. Orbits: The bony orbits are grossly intact. IMPRESSION: There is no hemorrhage, mass effect, or evidence of acute territorial ischemia by CT kandace hess. Electronically signed by: Isai Antoine M.D. 02/10/2019 8:52 AM
[2019-02-10 08:59] LABS: Alanine Aminotransferase 41 U/L (12-78); Albumin Level 3.2 gm/dl (3.4-5.0); Aspartate Aminotransferase 33 U/L (15-37); BUN Creatinine Ratio 8.2 (10-20); Bilirubin Direct 0.3 mg/dl (0-0.2); Blood Urea Nitrogen 11 mg/dl (7-18); Calcium 8.4 mg/dl (8.5-10.1); Carbon Dioxide 26 mmol/L (21-32); Chloride 100 mmol/L (98-107); Est GFR (African American) 50.4; Est GFR (Non-African American) 43.5; Glucose 119 mg/dl (70-99); Magnesium 1.1 mg/dl (1.8-2.4); Potassium 3.8 mmol/L (3.5-5.1); Sodium 141 mmol/L (136-145)
[2019-02-10 09:03] LABS: INR 1.1 (0.9-1.1); Partial Thromboplastin Time 27.7 Seconds (21.0-31.0); Prothrombin Time 11.4 Seconds (9.0-12.0)
[2019-02-10] MEDS ORDERED: VANCOMYCIN CONSULT ACTIVE PRN (09:03)
[2019-02-10] MEDS ORDERED: VANCOMYCIN HCL 2,500 MG in SODIUM CHLORIDE 0.9% 500 ML IV ONE (09:03)
[2019-02-10] MEDS ORDERED: CEFEPIME 1,000 MG in SYRINGE 0 ML IV STA (09:03)
[2019-02-10 09:07] LABS: Albumin Globulin Ratio 0.7 (0.9-2); Alkaline Phosphatase 114 U/L (45-117); Bilirubin,Total 0.8 mg/dl (0.2-1); Globulin 4.4 gm/dl (2.5-4.0); Phosphorus 3.7 mg/dl (2.5-4.9); Total Protein 7.6 gm/dl (6.4-8.2); Troponin I < 0.015 ng/ml (0-0.045)
[2019-02-10 09:08] LABS: Basophils # (auto) 0.03 K/uL (0-0.2); Basophils % (auto) 0.3 %; Eosinophils # (auto) 0.05 K/uL (0-0.5); Eosinophils % (auto) 0.5 %; Hematocrit (blood only) 41.9 % (37-47); Hemoglobin 13.5 g/dL (12.0-16.0); Immature Granulocytes # (auto) 0.03 K/uL (0.00-0.02); Immature Granulocytes % (auto) 0.3 %; Lymphocytes # (auto) 2.85 K/uL (1.2-3.4); Lymphocytes % (auto) 29.7 %; Mean Corpuscular Hgb Conc 32.2 g/dL (32-36); Mean Corpuscular Volume 95.9 fL (80-100); Mean Platelet Volume 11.1 fL (7.4-10.4); Monocytes # (auto) 0.89 K/uL (0.11-0.59); Monocytes % (auto) 9.3 %; Neutrophils # (auto) 5.75 K/uL (1.4-6.5); Neutrophils % (auto) 59.9 %; Platelet Count 213 K/uL (130-400); RDW Coefficient of Variation 13.7 % (11.5-14.5); RDW Standard Deviation 47.6 fL (36.4-46.3); Red Blood Count 4.37 M/uL (4.2-5.4)
--- NOTE | 2019-02-10 09:09 | CT Scan Report ---
CT ANGIOGRAM OF THE BRAIN; CT ANGIOGRAM OF THE NECK CLINICAL HISTORY: Change in mental status. COMPARISON STUDY: Unenhanced CT of the brain performed the same day 02/10/2019. Carotid artery ultras ound dated 08/16/2013. Chest CT dated 01/31/2019. TECHNIQUE: Following the IV administration of 121 of Optiray 320, CT angiogram of the head and neck w as performed from the aortic arch to the vertex. Images are reviewed in the axial, sagittal, and elton nal planes. 3-D MIPS images are created and assessed. IV contrast was administered without complicati on. All measurements were calculated based on NASCET criteria. A dose lowering technique was utilize d adhering to the principles of ALARA. The CT angiogram of the neck is degraded by motion artifact. CT DOSE: 2073.20 mGy.cm FINDINGS: Insulation Board Coater Operator tomogram: A large right perihilar density is noted in the chest end there is a central venous i nfusion port in place. Brain parenchyma: There is age-related involutional change noting minimal subcortical and periventric ular microangiopathic disease. There is no hemorrhage, mass effect, or evidence of acute territorial ischemia by CT criteria. There is no evidence of enhancing mass lesion on the angiogram phase images. The ventricles, sulci, and cisterns are normal in configuration. Gordon-white matter differentiation i s preserved. No extra-axial fluid collection is seen. Thoracic aorta: Visualized portions of the thoracic aorta are normal in caliber. The aortic arch demo nstrates standard 3-vessel anatomy. Right carotid arterial system: The right common carotid artery is widely patent, as are the right int ernal and extra carotid arteries. Left carotid arterial system: The left common carotid artery is widely patent, as are the left software development intern al and external carotid arteries. Vertebral arteries: Patent bilaterally and codominant. Subclavian arteries: Widely patent bilaterally. Intracranial vasculature: There is mild atherosclerotic calcification of the cavernous carotid arteri es. The internal carotid arteries are patent at the skull base, as are the anterior and middle cerebr al arteries bilaterally. The vertebrobasilar system and posterior cerebral arteries are widely patent . The vertebral arteries are codominant. There is no aneurysm, high-grade stenosis, or focal vessel c ut off seen throughout the intracranial circulation. Jugular veins: Widely patent bilaterally. Dural sinuses: Patent. Lung apices: Emphysematous change is seen in the upper lobes. There is volume loss in the right lung and masslike opacity in the right suprahilar region is similar to previous. Soft tissues: The visualized pharyngeal soft tissues are normal in appearance noting angiographic pha se technique. The oropharyngeal airway appears widely patent. The thyroid gland is atrophic and heter ogeneous. The right lobe may be surgically absent. A low-attenuation nodule in the left lobe measures 11 mm. The salivary glands are normal as imaged. No cervical lymphadenopathy is seen. Skeletal structures: The calvarium appears intact. The cervical spine is within normal limits. Orbits: The bony orbits are intact. Orbital contents are normal in appearance. Sinuses and mastoids: There is trace mucosal thickening and small retention cyst present within the m axillary antra. The remaining paranasal sinuses are clear. There are small mastoid effusions. IMPRESSION: 1. There is no hemorrhage, mass effect, or evidence of acute territorial ischemia by CT criteria on t his angiographic phase examination. 2. Unremarkable CT angiogram of the brain. 3. Unremarkable CT angiogram of the neck. 4. Advanced emphysema, volume loss in the right lung, and masslike consolidation in the right suprahi lar region are similar to previous. Electronically signed by: Isai Antoine M.D. 02/10/2019 9:07 AM
[2019-02-10] MEDS ORDERED: SODIUM CHLORIDE 0.9% 1000ML 1,000 ML IV ONE (09:11)
--- NOTE | 2019-02-10 09:11 | XRay Report ---
SINGLE VIEW CHEST CLINICAL HISTORY: Strokelike symptoms. FINDINGS: An AP, portable, upright chest radiograph is compared to study dated 01/30/2019 and correlate d with chest CT dated 01/31/2019. The examination is degraded by portable technique and patient rotatio n. A right internal jugular central venous infusion port is unchanged in position. The examination i s degraded by portable technique and patient rotation. The cardiomediastinal silhouette is unremarka ble. Emphysema and chronic interstitial thickening are similar to previous. There are low lung volume s, with asymmetric volume loss on the right. There is unchanged appearance of masslike right perihila r consolidation. Small pleural effusions are noted, right larger than left. The left lung is otherwis e clear. No pneumothorax is seen. The skeletal structures are osteopenic. The bony thorax is grossly intact. IMPRESSION: 1. No significant change from 01/30/2019. 2. Emphysema, asymmetric volume loss in the right lung, and masslike consolidation in the right perih ilar region are again noted. 3. Small pleural effusions, right larger left. Electronically signed by: Isai Antoine M.D. 02/10/2019 9:10 AM
[2019-02-10] MEDS: MAGNESIUM SULFATE / D5W 1 GM/100 ML BAG IV SCH ×2 (09:17→10:45)
--- NOTE | 2019-02-10 09:43 | Emergency Department Note ---
Entered by Juan Laird acting as a scribe for History of Present Illness General Chief complaint: Stroke Alert Stated complaint: STROKE SYMPTOMS Time Seen by Provider: 02/10/19 08:10 Source: family Limitations: clinical acuity History of Present Illness Provider complaint: Seizure-like activity Onset (ago): minute(s) Location: upper extremity, lower extremity, left and right Pain Consistency: + other (single episode) Quality: + other (seizure-like activity) Associated symptoms: + headaches This history is provided by the patient's secondary to her current clinical status. The patient is a 68 year old female who presents to the Emergency Room with complaints of seizure-like activity that occurred immediately prior to arrival. The patient's notes that the patient was discharged from the hospital two days ago after an inpatient stay for Bacteremia. They were [facility] their way [facility] this [facility] for [facility]-Vancom[facility]. As the was approaching the medical center he states that "her eyes rolled back into her head, she started shaking, and foaming at the mouth." He adds that the patient has been complaining of a constant headache for the past two days since her discharge. The patient is currently being treated for colon cancer with metastasis to her lungs. The patient's confirms DNR/DNI status. The patient has no history of seizures. The Patient's EMR was reviewed she is on Eliquis. She was discharged from the hospital yesterday with diagnosis of bacteremia. She is received [facility]. The confirms that she took her Eliquis this morning. Home Medications Home Medications Medication Instructions Recorded Confirmed Type albuterol sulfate 2 puff INHALATION Q6 PRN 08/07/18 02/10/19 History apixaban 5 mg PO BID 08/07/18 02/10/19 History aspirin [Aspirin Childrens] 81 mg PO DAILY 08/07/18 02/10/19 History beclomethasone dipropionate 2 puff INHALATION BID 08/07/18 02/10/19 History cyanocobalamin (vitamin B-12) 1,000 mcg PO HS 08/07/18 02/10/19 History [id number] C-Mn 1 cap PO BID 08/07/18 02/10/19 History [Glucosamine Chondroitin MaxStr] levothyroxine 125 mcg PO QAM 08/07/18 02/10/19 History multivitamin 1 tab PO DAILY 08/07/18 02/10/19 History ondansetron HCl 8 mg PO Q8 PRN 08/07/18 02/10/19 History sertraline 50 mg PO HS 08/07/18 02/10/19 History simvastatin 40 mg PO QPM 08/07/18 02/10/19 History ergocalciferol (vitamin D2) 50,000 unit PO DIRECTED 01/28/19 02/10/19 History [Vitamin D2] colestipol [Colestid] 1 g PO DAILY@1400 #30 tab 02/08/19 02/10/19 Rx fluconazole [Diflucan] 200 mg PO DAILY 5 Days #5 tab 02/08/19 02/10/19 Rx magnesium oxide 800 mg PO BID #120 tab 02/08/19 02/10/19 Rx metoprolol tartrate 75 mg PO BID #90 tab 02/08/19 02/10/19 Rx nystatin 5 ml PO ACHS 10 Days #200 ml 02/08/19 02/10/19 Rx potassium chloride 20 meq PO BID #60 tab 02/08/19 02/10/19 Rx ranitidine HCl 150 mg PO BID #60 tab 02/08/19 02/10/19 Rx sucralfate [Carafate] 1 gm PO ACHS 7 Days #28 tab 02/08/19 02/10/19 Rx valacyclovir [Valtrex] 500 mg PO BID 5 Days #10 tab 02/08/19 02/10/19 Rx vancomycin 1.25 gm IV DIRECTED #2 ea 02/08/19 02/10/19 Rx Allergies Allergy/AdvReac Type Severity Reaction Status Date / Time thiopental Allergy Unknown INCREASED Verified 02/10/19 09:41 BLEEDING WITH WISDOM TEETH SURG meperidine AdvReac Mild N/V Verified 02/10/19 09:41 morphine AdvReac Mild N/V Verified 02/10/19 09:41 Past Med/Surg History Medical History Febrile illness Essential hypertension (Chronic) Vomiting and diarrhea (Acute) HLD (hyperlipidemia) (Chronic) GERD (gastroesophageal reflux disease) (Chronic) Hypothyroid (Chronic) Encounter for chemotherapy management DVT (deep venous thrombosis) (Chronic) Colon cancer metastasized to lung (Chronic 09/18/08) "Adenocarcinoma of the colon with lung metastasis diagnosed in 2007 Status post right lobectomy 07/10/2008 Status post colonoscopy and biopsy 09/18/2008 revealing the colon lesion. Status post resection. This was followed by chemotherapy. Status post left upper lobe wedge resection 08/24/2011 due to metastasis Status post stereotactic radiation therapy in 2011 Completed chemotherapy in 2014 Status post wedge resection with Dr. navarrete 2015 Status post hypo-fractionated radiation therapy in 2016 PET/CT 08/24/2017 revealing metabolic activity of the right hilum. Status post completion of radiation therapy 10/24/2017 utilizing VMAT. PET/CT May 29, 2018 persistent uptake in the right paratracheal mass and suspicious changes for progression. Plan for systemic chemotherapy with irinotecan and Erbitux" On 11/02/17 11:11 Meaghan Alves wrote "Adenocarcinoma of the colon with lung metastasis diagnosed in 2007 Status post right lobectomy 07/10/2008 Status post colonoscopy and biopsy 09/18/2008 revealing the colon lesion. Status post resection. This was followed by chemotherapy. Status post left upper lobe wedge resection 08/24/2011 due to metastasis Status post stereotactic radiation therapy in 2011 Completed chemotherapy in 2014 Status post wedge resection with Dr. navarrete 2015 Status post hypo-fractionated radiation therapy in 2015 PET/CT 08/24/2017 revealing metabolic activity of the right hilum. Status post completion of radiation therapy 10/24/2017 utilizing VMAT." On 09/13/17 09:28 Meaghan Alves wrote "Adenocarcinoma of the colon with lung metastasis diagnosed in 2007 Status post right lobectomy 07/10/2008 Status post colonoscopy and biopsy 09/18/2008 revealing the colon lesion. Status post resection. This was followed by chemotherapy. Status post left upper lobe wedge resection 08/24/2011 due to metastasis Status post stereotactic radiation therapy in 2011 Completed chemotherapy in 2014 Status post wedge resection with Dr. navarrete 2015 Status post hypo-fractionated radiation therapy in 2015 PET/CT 08/24/2017 revealing metabolic activity of the right hilum." Pulmonary embolism (Resolved) HLD (hyperlipidemia) History of radiation therapy Hx of gallstones Neutropenia Family History Other Family history non-contributory Social History Preferred Language: Slovak Communication Ability: Effective Environmental Designer Required: No Beliefs That Will Affect Care: None Current Living Situation: Spouse Other Information That Helps Us Care for You: No Feels Safe at Home: Yes Safety Concerns: Feels Safe At This Time Smoking Status: Never smoker Hx Alcohol Use: No Hx Substance Use: No Review of Systems See HPI for pertinent positives & negatives. ROS limited secondary to clinical status. Physical Exam Vital Signs Vital Signs - 24 hr 02/10/19 08:15 02/10/19 09:07 02/10/19 09:55 Temperature 37.6 C H Temperature Source Oral Sepsis Action Taken by Nursing No Action Required Pulse Rate Pulse Rate [Left] 94 H Pulse Rhythm [Left] Respiratory Rate 28 H 20 Respiratory Effort / Characteristics Non-Labored Non-Labored Spontaneous Respiratory Depth Normal Normal Shallow Respiratory Pattern Tachypnea Blood Pressure 152/88 H Blood Pressure [Left Arm] 159/93 H Blood Pressure Mean 109 Blood Pressure Mean [Left Arm] 115 Pulse Oximetry 91 99 Oxygen Delivery Method Room Air Nasal Cannula Nasal Cannula Oxygen Flow Rate 2 2 02/10/19 10:12 02/10/19 10:53 02/10/19 11:15 Temperature Temperature Source Sepsis Action Taken by Nursing Pulse Rate 91 H Pulse Rate [Left] 83 Pulse Rhythm [Left] Regular Respiratory Rate 18 13 Respiratory Effort / Characteristics Non-Labored Respiratory Depth Normal Respiratory Pattern Blood Pressure 148/123 H Blood Pressure [Left Arm] 145/102 H Blood Pressure Mean 131 Blood Pressure Mean [Left Arm] 116 Pulse Oximetry 98 94 Oxygen Delivery Method Nasal Cannula Room Air Nasal Cannula Oxygen Flow Rate 2 2 02/10/19 12:00 02/10/19 14:00 02/10/19 14:22 Temperature 36.7 C Temperature Source Sepsis Action Taken by Nursing Pulse Rate 88 90 Pulse Rate [Left] 88 Pulse Rhythm [Left] Respiratory Rate 20 14 16 Respiratory Effort / Characteristics Non-Labored Spontaneous Non-Labored Spontaneous Respiratory Depth Normal Respiratory Pattern Regular Blood Pressure 157/99 H 174/97 H Blood Pressure [Left Arm] Blood Pressure Mean 118 122 Blood Pressure Mean [Left Arm] Pulse Oximetry 97 98 98 Oxygen Delivery Method Nasal Cannula Nasal Cannula Nasal Cannula Oxygen Flow Rate 2 2 2 GENERAL: Minimally responsive to loud voice. Rightward gaze preference with ocular fasciculations. BMI 47.5. HENT: Normocephalic, atraumatic. Oropharynx with dry mucous membranes and ot herwise unremarkable. Rightward gaze preference with ocular fasciculations. EYES: Normal conjunctiva. Sclera non-icteric. NECK: Supple. No nuchal rigidity. FROM. No JVD. RESPIRATORY: Clear to auscultation. CARDIAC: Regular rate, normal rhythm. Extremities warm and well perfused. Pulses equal. ABDOMEN: Soft, non-distended. No tenderness to palpation. No rebound or guarding. No masses. RECTAL: Deferred. MUSCULOSKELETAL: Chest examination reveals no tenderness. The back is symmetrical on inspection without obvious abnormality. There is no CVA tenderness to palpation. No joint edema. LOWER EXTREMITIES: Calves are equal size bilaterally and non-tender. No edema. No discoloration. NEURO: Minimally responsive to loud voice. Right gaze preference. Ocular fasiculations. Moving all extremities equally. SKIN: No rash or jaundice noted. Several areas of ecchymosis to the skin of BUE in the setting of patient's Eliquis. Course 0809: The patient was taken straight to CT scan from Triage. 0816: Past medical records reviewed. The patient was evaluated in room B1, and a complete history and physical examination were performed. 0859: I checked on the patient. She is improved. 0911: I reviewed the patient's case with Oumar Lofton [facility] Hospitalist JANELL. He will evaluate the patient for further management. 0936: I discussed the case with Dr. Martinez - Neurology. He states we should hold on the Keppra. Agrees with MRI brain for metastasis and admit to medicine. Administered Medications Colestipol HCl (Colestid) 1 gm PO DAILY@1400 [facility] Stop: 03/12/19 13:59 Last Admin: 02/10/19 14:08 Dose: Not Given Documented by: [id number] Gadobutrol (Gadavist 7.5ml) 12.5 ml IV ONCE PRN PRN Reason: Interaction Checking Stop: 02/14/19 13:57 Last Admin: 02/10/19 13:58 Dose: 12.5 ml Documented by: [id number] Potassium Chloride/Dextrose/Sod Cl (D5nss + 20meq Kcl) 20 meq in 1,000 mls @ 50 mls/hr IV .Q20H [facility] Stop: 03/12/19 11:59 Last Admin: 02/10/19 14:03 Dose: 50 mls/hr Documented by: [id number] Acetaminophen (Ofirmev) 1,000 mg in 100 mls @ 400 mls/hr IV Q8H PRN PRN Reason: Headache Stop: 03/12/19 11:57 Last Infusion: 02/10/19 12:25 Dose: 0 mls/hr Documented by: [id number] Admin: 02/10/19 12:08 Dose: 400 mls/hr Documented by: [id number] Ipratropium [place] (Atrovent 0.02% 0.5mg/2.5ml) 0.5 mg INH Q6R [facility] Stop: 03/12/19 13:59 Last Admin: 02/10/19 14:22 Dose: 0.5 mg Documented by: [id number] Levalbuterol HCl (Xopenex 1.25mg/0.5ml Neb) 1.25 mg INH Q6R [facility] Stop: 03/12/19 13:59 Last Admin: 02/10/19 14:22 Dose: 1.25 mg Documented by: [id number] Nystatin (Mycostatin) 5 ml PO ACHS [facility] Stop: 02/24/19 11:29 Last Admin: 02/10/19 11:47 Dose: Not Given Documented by: [id number] Ondansetron HCl (Zofran) 4 mg IV Q6H PRN PRN Reason: Nausea Stop: 03/12/19 09:54 Last Admin: 02/10/19 13:30 Dose: 4 mg Documented by: [id number] Sucralfate (Carafate Tab) 1 gm PO ACHS [facility] Stop: 03/12/19 11:29 Last Admin: 02/10/19 11:47 Dose: Not Given Documented by: [id number] Discontinued Medications Lorazepam (Ativan) 1 mg in 2 mls @ 2 mls/min IV NOW STA Stop: 02/10/19 08:16 Last Admin: 02/10/19 08:44 Dose: Not Given Documented by: [id number] Sodium Chloride (Nss 1000ml) 500 mls @ 999 mls/hr IV .Q31M ONE Stop: 02/10/19 08:55 Last Infusion: 02/10/19 10:45 Dose: 0 mls/hr Documented by: [id number] Admin: 02/10/19 09:29 Dose: 999 mls/hr Documented by: [id number] Cefepime HCl 1,000 mg/ Syringe 11.3 mls @ 5.5 mls/min IV NOW STA Stop: 02/10/19 09:05 Last Admin: 02/10/19 09:22 Dose: 5.5 mls/min Documented by: [id number] Magnesium Sulfate/Dextrose (Magnesium Sulfate / D5w) 1 gm in 100 mls @ 100 mls/hr IV Q1H [facility] Stop: 02/10/19 11:14 Last Infusion: 02/10/19 12:04 Dose: 0 mls/hr Documented by: [id number] Admin: 02/10/19 10:45 Dose: 100 mls/hr Documented by: [id number] Infusion: 02/10/19 10:17 Dose: 100 mls/hr Documented by: [id number] Admin: 02/10/19 09:17 Dose: 100 mls/hr Documented by: [id number] Vancomycin HCl 2,500 mg/ (Sodium Chloride) 550 mls @ 200 mls/hr IV NOW ONE Stop: 02/10/19 11:47 Last Infusion: 02/10/19 14:47 Dose: 0 mls/hr Documented by: [id number] Admin: 02/10/19 12:04 Dose: 200 mls/hr Documented by: [id number] Sodium Chloride (Nss 1000ml) 1,000 mls @ 999 mls/hr IV .Q1H1M ONE Stop: 02/10/19 10:11 Last Infusion: 02/10/19 10:45 Dose: 0 mls/hr Documented by: [id number] Admin: 02/10/19 09:29 Dose: 999 mls/hr Documented by: [id number] Ioversol (Optiray 320 125ml) 121 ml IV ONCE PRN PRN Reason: Interaction Checking Stop: 02/14/19 08:52 Last Admin: 02/10/19 08:54 Dose: 121 ml Documented by: [id number] Lorazepam (Ativan) Confirm Administered Dose 2 mg .ROUTE .STK-MED ONE Stop: 02/10/19 08:21 Last Admin: 02/10/19 08:44 Dose: 1 mg Documented by: [id number] Miscellaneous Information (Cefepime Consult Active) 1 ea N/A NOW ONE Stop: 02/10/19 10:49 Last Admin: 03/16/19 12:17 Dose: Not Given Documented by: [id number] Medical Decision Making Differential Diagnosis Differential Diagnosis includes: Differential includes acute coronary syndrome, myocardial infarction, CVA, TIA, anemia, infection, pneumonia, UTI, pyelonephritis, poor nutrition, dehydration, electrolyte disturbance,hypoglycemia. Medical Records Attestation: I reviewed the patient's medical records. Home Medications Current Medication List: was personally reviewed by me Laboratory Data Attestation: I reviewed the patient's lab results. Result diagrams: 02/10/19 08:22 02/10/19 08:22 Lab Results 02/10/19 02/10/19 02/10/19 Range/Units 08:22 08:22 08:22 WBC 9.60 (4.8-10.8) K/uL RBC 4.37 (4.2-5.4) M/uL Hgb 13.5 (12.0-16.0) g/dL POC Hgb (12.0-16.0) g/dl Hct 41.9 (37-47) % POC Hct (37-47) % MCV 95.9 (80-100) fL MCH 30.9 (25-34) pg MCHC 32.2 (32-36) g/dL RDW Std Deviation 47.6 H (36.4-46.3) fL RDW Coeff of Marcell 13.7 (11.5-14.5) % Plt Count 213 (130-400) K/uL MPV 11.1 H (7.4-10.4) fL Immature Gran % (Auto) 0.3 % Neut % (Auto) 59.9 % Lymph % (Auto) 29.7 % Stark % (Auto) 9.3 % Eos % (Auto) 0.5 % Baso % (Auto) 0.3 % Immature Gran # (Auto) 0.03 H (0.00-0.02) K/uL Neut # (Auto) 5.75 (1.4-6.5) K/uL Lymph # (Auto) 2.85 (1.2-3.4) K/uL Stark # (Auto) 0.89 H (0.11-0.59) K/uL Eos # (Auto) 0.05 (0-0.5) K/uL Baso # (Auto) 0.03 (0-0.2) K/uL PT 11.4 (9.0-12.0) Seconds INR 1.1 (0.9-1.1) APTT 27.7 (21.0-31.0) Seconds PTT Ratio 1.0 VBG pH (7.36-7.41) VBG pCO2 (38-50) mmHg VBG pO2 mmHg VBG HCO3 mmol/L VBG O2 Saturation % VBG Base Excess mEq/L Barometric Pressure mm/Hg POC Sodium (135-144) mEq/L Sodium 141 (136-145) mmol/L POC Potassium (3.3-5.0) mEq/L Potassium 3.8 (3.5-5.1) mmol/L POC Chloride (101-112) mEq/L Chloride 100 (98-107) mmol/L Carbon Dioxide 26 (21-32) mmol/L POC Total CO2 (24-31) mEq/l Anion Gap 16.0 H (3-11) POC Anion Gap (16-25) mmol/L POC BUN (7-18) mg/dl BUN 11 (7-18) mg/dl Creatinine 1.28 H (0.6-1.2) mg/dl POC Creatinine (0.6-1.3) mg/dl Est Cr Clr Drug Dosing Not Reportable Est GFR ( Amer) 50.4 Est GFR (Non-Af Amer) 43.5 BUN/Creatinine Ratio 8.2 L (10-20) Glucose 119 H (70-99) mg/dl POC Glucose (70-99) POC Glucose (other) (70-99) mg/dl Lactate (0.4-2.0) mmol/L Calcium 8.4 L (8.5-10.1) mg/dl POC Ioniz Calcium [place] (1.12-1.32) mmol/l Phosphorus 3.7 (2.5-4.9) mg/dl Magnesium 1.1 L (1.8-2.4) mg/dl Total Bilirubin 0.8 (0.2-1) mg/dl Direct Bilirubin 0.3 H (0-0.2) mg/dl AST 33 (15-37) U/L ALT 41 (12-78) U/L Alkaline Phosphatase 114 (45-117) U/L Troponin I < 0.015 (0-0.045) ng/ml Total Protein 7.6 (6.4-8.2) gm/dl Albumin 3.2 L (3.4-5.0) gm/dl Globulin 4.4 H (2.5-4.0) gm/dl Albumin/Globulin Ratio 0.7 L (0.9-2) Procalcitonin (0-0.5) ng/ml TSH 21.500 H (0.300-4.500) uIu/ml Free T4 1.20 (0.8-1.6) ng/dl Urine Color Urine Appearance (Clear) Urine pH (4.5-7.5) Ur Specific [place] (1.000-1.030) Urine Protein (Negative) Urine Glucose (UA) (Negative) Urine Ketones (Negative) Urine Blood (Negative) Urine Nitrite (Negative) Urine Bilirubin (Negative) Urine Urobilinogen (Negative) Ur Leukocyte Esterase (Negative) Urine WBC (Auto) (0-5) /hpf Urine RBC (Auto) (0-4) /hpf U Hyaline Cast (Auto) (0-5) /lpf U Epithel Cells (Auto) (0-5) /lpf Urine Bacteria (Auto) (Negative) Nasal Screen MRSA (PCR) (Negative) Blood Type Antibody Screen 02/10/19 02/10/19 02/10/19 Range/Units 08:22 08:22 08:24 WBC (4.8-10.8) K/uL RBC (4.2-5.4) M/uL Hgb (12.0-16.0) g/dL POC Hgb 14.6 (12.0-16.0) g/dl Hct (37-47) % POC Hct 43 (37-47) % MCV (80-100) fL MCH (25-34) pg MCHC (32-36) g/dL RDW Std Deviation (36.4-46.3) fL RDW Coeff of Marcell (11.5-14.5) % Plt Count (130-400) K/uL MPV (7.4-10.4) fL Immature Gran % (Auto) % Neut % (Auto) % Lymph % (Auto) % Stark % (Auto) % Eos % (Auto) % Baso % (Auto) % Immature Gran # (Auto) (0.00-0.02) K/uL Neut # (Auto) (1.4-6.5) K/uL Lymph # (Auto) (1.2-3.4) K/uL Stark # (Auto) (0.11-0.59) K/uL Eos # (Auto) (0-0.5) K/uL Baso # (Auto) (0-0.2) K/uL PT (9.0-12.0) Seconds INR (0.9-1.1) APTT (21.0-31.0) Seconds PTT Ratio VBG pH (7.36-7.41) VBG pCO2 (38-50) mmHg VBG pO2 mmHg VBG HCO3 mmol/L VBG O2 Saturation % VBG Base Excess mEq/L Barometric Pressure mm/Hg POC Sodium 140 (135-144) mEq/L Sodium (136-145) mmol/L POC Potassium 3.7 (3.3-5.0) mEq/L Potassium (3.5-5.1) mmol/L POC Chloride 96 L (101-112) mEq/L Chloride (98-107) mmol/L Carbon Dioxide (21-32) mmol/L POC Total CO2 25 (24-31) mEq/l Anion Gap (3-11) POC Anion Gap 23.0 (16-25) mmol/L POC BUN 9 (7-18) mg/dl BUN (7-18) mg/dl Creatinine (0.6-1.2) mg/dl POC Creatinine 0.9 (0.6-1.3) mg/dl Est Cr Clr Drug Dosing Est GFR ( Amer) Est GFR (Non-Af Amer) BUN/Creatinine Ratio (10-20) Glucose (70-99) mg/dl POC Glucose (70-99) POC Glucose (other) 118 H (70-99) mg/dl Lactate (0.4-2.0) mmol/L Calcium (8.5-10.1) mg/dl POC Ioniz Calcium [place] 0.99 L (1.12-1.32) mmol/l Phosphorus Cancelled (2.5-4.9) mg/dl Magnesium (1.8-2.4) mg/dl Total Bilirubin (0.2-1) mg/dl Direct Bilirubin Cancelled (0-0.2) mg/dl AST (15-37) U/L ALT (12-78) U/L Alkaline Phosphatase (45-117) U/L Troponin I (0-0.045) ng/ml Total Protein (6.4-8.2) gm/dl Albumin (3.4-5.0) gm/dl Globulin (2.5-4.0) gm/dl Albumin/Globulin Ratio (0.9-2) Procalcitonin 0.05 (0-0.5) ng/ml TSH Cancelled (0.300-4.500) uIu/ml Free T4 (0.8-1.6) ng/dl Urine Color Urine Appearance (Clear) Urine pH (4.5-7.5) Ur Specific [place] (1.000-1.030) Urine Protein (Negative) Urine Glucose (UA) (Negative) Urine Ketones (Negative) Urine Blood (Negative) Urine Nitrite (Negative) Urine Bilirubin (Negative) Urine Urobilinogen (Negative) Ur Leukocyte Esterase (Negative) Urine WBC (Auto) (0-5) /hpf Urine RBC (Auto) (0-4) /hpf U Hyaline Cast (Auto) (0-5) /lpf U Epithel Cells (Auto) (0-5) /lpf Urine Bacteria (Auto) (Negative) Nasal Screen MRSA (PCR) (Negative) Blood Type Antibody Screen 02/10/19 02/10/19 02/10/19 Range/Units 08:35 08:35 08:35 WBC (4.8-10.8) K/uL RBC (4.2-5.4) M/uL Hgb (12.0-16.0) g/dL POC Hgb (12.0-16.0) g/dl Hct (37-47) % POC Hct (37-47) % MCV (80-100) fL MCH (25-34) pg MCHC (32-36) g/dL RDW Std Deviation (36.4-46.3) fL RDW Coeff of Marcell (11.5-14.5) % Plt Count (130-400) K/uL MPV (7.4-10.4) fL Immature Gran % (Auto) % Neut % (Auto) % Lymph % (Auto) % Stark % (Auto) % Eos % (Auto) % Baso % (Auto) % Immature Gran # (Auto) (0.00-0.02) K/uL Neut # (Auto) (1.4-6.5) K/uL Lymph # (Auto) (1.2-3.4) K/uL Stark # (Auto) (0.11-0.59) K/uL Eos # (Auto) (0-0.5) K/uL Baso # (Auto) (0-0.2) K/uL PT (9.0-12.0) Seconds INR (0.9-1.1) APTT (21.0-31.0) Seconds PTT Ratio VBG pH (7.36-7.41) VBG pCO2 (38-50) mmHg VBG pO2 mmHg VBG HCO3 mmol/L VBG O2 Saturation % VBG Base Excess mEq/L Barometric Pressure mm/Hg POC Sodium (135-144) mEq/L Sodium (136-145) mmol/L POC Potassium (3.3-5.0) mEq/L Potassium (3.5-5.1) mmol/L POC Chloride (101-112) mEq/L Chloride (98-107) mmol/L Carbon Dioxide (21-32) mmol/L POC Total CO2 (24-31) mEq/l Anion Gap (3-11) POC Anion Gap (16-25) mmol/L POC BUN (7-18) mg/dl BUN (7-18) mg/dl Creatinine (0.6-1.2) mg/dl POC Creatinine (0.6-1.3) mg/dl Est Cr Clr Drug Dosing Est GFR ( Amer) Est GFR (Non-Af Amer) BUN/Creatinine Ratio (10-20) Glucose (70-99) mg/dl POC Glucose (70-99) POC Glucose (other) (70-99) mg/dl Lactate 6.5 H* (0.4-2.0) mmol/L Calcium (8.5-10.1) mg/dl POC Ioniz Calcium [place] (1.12-1.32) mmol/l Phosphorus (2.5-4.9) mg/dl Magnesium (1.8-2.4) mg/dl Total Bilirubin (0.2-1) mg/dl Direct Bilirubin (0-0.2) mg/dl AST (15-37) U/L ALT (12-78) U/L Alkaline Phosphatase (45-117) U/L Troponin I (0-0.045) ng/ml Total Protein (6.4-8.2) gm/dl Albumin (3.4-5.0) gm/dl Globulin (2.5-4.0) gm/dl Albumin/Globulin Ratio (0.9-2) Procalcitonin (0-0.5) ng/ml TSH (0.300-4.500) uIu/ml Free T4 (0.8-1.6) ng/dl Urine Color Yellow Urine Appearance Clear (Clear) Urine pH 7.0 (4.5-7.5) Ur Specific [place] > 1.045 H (1.000-1.030) Urine Protein 1+ H (Negative) Urine Glucose (UA) Negative (Negative) Urine Ketones 1+ H (Negative) Urine Blood Negative (Negative) Urine Nitrite Negative (Negative) Urine Bilirubin Negative (Negative) Urine Urobilinogen Negative (Negative) Ur Leukocyte Esterase Negative (Negative) Urine WBC (Auto) 1-5 (0-5) /hpf Urine RBC (Auto) 0-4 (0-4) /hpf U Hyaline Cast (Auto) 1-5 (0-5) /lpf U Epithel Cells (Auto) 20-30 H (0-5) /lpf Urine Bacteria (Auto) Negative (Negative) Nasal Screen MRSA (PCR) (Negative) Blood Type O Positive Antibody Screen NEGATIVE 02/10/19 02/10/19 02/10/19 Range/Units 10:13 11:20 12:37 WBC (4.8-10.8) K/uL RBC (4.2-5.4) M/uL Hgb (12.0-16.0) g/dL POC Hgb (12.0-16.0) g/dl Hct (37-47) % POC Hct (37-47) % MCV (80-100) fL MCH (25-34) pg MCHC (32-36) g/dL RDW Std Deviation (36.4-46.3) fL RDW Coeff of Marcell (11.5-14.5) % Plt Count (130-400) K/uL MPV (7.4-10.4) fL Immature Gran % (Auto) % Neut % (Auto) % Lymph % (Auto) % Stark % (Auto) % Eos % (Auto) % Baso % (Auto) % Immature Gran # (Auto) (0.00-0.02) K/uL Neut # (Auto) (1.4-6.5) K/uL Lymph # (Auto) (1.2-3.4) K/uL Stark # (Auto) (0.11-0.59) K/uL Eos # (Auto) (0-0.5) K/uL Baso # (Auto) (0-0.2) K/uL PT (9.0-12.0) Seconds INR (0.9-1.1) APTT (21.0-31.0) Seconds PTT Ratio VBG pH 7.31 L (7.36-7.41) VBG pCO2 57 H (38-50) mmHg VBG pO2 40 mmHg VBG HCO3 28 mmol/L VBG O2 Saturation 71.8 % VBG Base Excess 0.6 mEq/L Barometric Pressure 733.7 mm/Hg POC Sodium (135-144) mEq/L Sodium (136-145) mmol/L POC Potassium (3.3-5.0) mEq/L Potassium (3.5-5.1) mmol/L POC Chloride (101-112) mEq/L Chloride (98-107) mmol/L Carbon Dioxide (21-32) mmol/L POC Total CO2 (24-31) mEq/l Anion Gap (3-11) POC Anion Gap (16-25) mmol/L POC BUN (7-18) mg/dl BUN (7-18) mg/dl Creatinine (0.6-1.2) mg/dl POC Creatinine (0.6-1.3) mg/dl Est Cr Clr Drug Dosing Est GFR ( Amer) Est GFR (Non-Af Amer) BUN/Creatinine Ratio (10-20) Glucose (70-99) mg/dl POC Glucose 93 (70-99) POC Glucose (other) (70-99) mg/dl Lactate (0.4-2.0) mmol/L Calcium (8.5-10.1) mg/dl POC Ioniz Calcium [place] (1.12-1.32) mmol/l Phosphorus (2.5-4.9) mg/dl Magnesium (1.8-2.4) mg/dl Total Bilirubin (0.2-1) mg/dl Direct Bilirubin (0-0.2) mg/dl AST (15-37) U/L ALT (12-78) U/L Alkaline Phosphatase (45-117) U/L Troponin I (0-0.045) ng/ml Total Protein (6.4-8.2) gm/dl Albumin (3.4-5.0) gm/dl Globulin (2.5-4.0) gm/dl Albumin/Globulin Ratio (0.9-2) Procalcitonin (0-0.5) ng/ml TSH (0.300-4.500) uIu/ml Free T4 (0.8-1.6) ng/dl Urine Color Urine Appearance (Clear) Urine pH (4.5-7.5) Ur Specific [place] (1.000-1.030) Urine Protein (Negative) Urine Glucose (UA) (Negative) Urine Ketones (Negative) Urine Blood (Negative) Urine Nitrite (Negative) Urine Bilirubin (Negative) Urine Urobilinogen (Negative) Ur Leukocyte Esterase (Negative) Urine WBC (Auto) (0-5) /hpf Urine RBC (Auto) (0-4) /hpf U Hyaline Cast (Auto) (0-5) /lpf U Epithel Cells (Auto) (0-5) /lpf Urine Bacteria (Auto) (Negative) Nasal Screen MRSA (PCR) Negative (Negative) Blood Type Antibody Screen Imaging Data Attestation: I personally reviewed and interpreted this imaging study as follows: Radiologist's Impression: CT ANGIOGRAM OF THE BRAIN; CT ANGIOGRAM OF THE NECK CLINICAL HISTORY: Change in mental status. COMPARISON STUDY: Unenhanced CT of the brain performed the same day 02/10/2019. Carotid artery ultrasound dated 08/16/2013. Chest CT dated 01/31/2019. TECHNIQUE: Following the IV administration of 121 of Optiray 320, CT angiogram of the head and neck was performed from the aortic arch to the vertex. Images are reviewed in the axial, sagittal, and coronal planes. 3-D MIPS images are created and assessed. IV contrast was administered without complication. All measurements were calculated based on NASCET criteria. A dose lowering technique was utilized adhering to the principles of ALARA. The CT angiogram of the neck is degraded by motion artifact. CT DOSE: 2073.20 mGy.cm FINDINGS: Airveyor Operator tomogram: A large right perihilar density is noted in the chest end there is a central venous infusion port in place. Brain parenchyma: There is age-related involutional change noting minimal subcortical and periventricular microangiopathic disease. There is no hemorrhage, mass effect, or evidence of acute territorial ischemia by CT criteria. There is no evidence of enhancing mass lesion on the angiogram phase images. The ventricles, sulci, and cisterns are normal in configuration. Gordon- white matter differentiation is preserved. No extra-axial fluid collection is seen. Thoracic aorta: Visualized portions of the thoracic aorta are normal in caliber. The aortic arch demonstrates standard 3-vessel anatomy. Right carotid arterial system: The right common carotid artery is widely patent, as are the right internal and extra carotid arteries. Left carotid arterial system: The left common carotid artery is widely patent, as are the left internal and external carotid arteries. Vertebral arteries: Patent bilaterally and codominant. Subclavian arteries: Widely patent bilaterally. Intracranial vasculature: There is mild atherosclerotic calcification of the cavernous carotid arteries. The internal carotid arteries are patent at the skull base, as are the anterior and middle cerebral arteries bilaterally. The vertebrobasilar system and posterior cerebral arteries are widely patent. The vertebral arteries are codominant. There is no aneurysm, high-grade stenosis, or focal vessel cut off seen throughout the intracranial circulation. Jugular veins: Widely patent bilaterally. Dural sinuses: Patent. Lung apices: Emphysematous change is seen in the upper lobes. There is volume loss in the right lung and masslike opacity in the right suprahilar region is similar to previous. Soft tissues: The visualized pharyngeal soft tissues are normal in appearance noting angiographic phase technique. The oropharyngeal airway appears widely patent. The thyroid gland is atrophic and heterogeneous. The right lobe may be surgically absent. A low-attenuation nodule in the left lobe measures 11 mm. The salivary glands are normal as imaged. No cervical lymphadenopathy is seen. Skeletal structures: The calvarium appears intact. The cervical spine is within normal limits. Orbits: The bony orbits are intact. Orbital contents are normal in appearance. Sinuses and mastoids: There is trace mucosal thickening and small retention cyst present within the maxillary antra. The remaining paranasal sinuses are clear. There are small mastoid effusions. IMPRESSION: 1. There is no hemorrhage, mass effect, or evidence of acute territorial ischemia by CT criteria on this angiographic phase examination. 2. Unremarkable CT angiogram of the brain. 3. Unremarkable CT angiogram of the neck. 4. Advanced emphysema, volume loss in the right lung, and masslike consolidation in the right suprahilar region are similar to previous. Electronically signed by: Isai Antoine M.D. 02/10/2019 9:[address] SCAN OF THE BRAIN WITHOUT IV CONTRAST CLINICAL HISTORY: Change in mental status. COMPARISON STUDY: CT of the brain dated 01/28/2019. TECHNIQUE: Unenhanced axial CT scan of the brain is performed from the vertex to the skull base. A dose lowering technique was utilized adhering to the principles of ALARA. FINDINGS: Brain parenchyma: There is age-related involutional change noting minimal subcortical and periventricular microangiopathic disease. There is no hemorrh age, mass effect, or evidence of acute territorial ischemia by CT criteria. Gordon-white matter differentiation is preserved. No extra-axial fluid collection is seen. Ventricles, sulci, cisterns: Prominent secondary to involutional change. Intracranial vasculature: There is atherosclerotic calcification of the cavernous carotid arteries. Calvarium: Unremarkable. Sinuses and mastoids: There is a small retention cyst in the right maxillary antrum. The remaining visualized paranasal sinuses are clear. There is a right mastoid effusion. The left mastoid air cells are well pneumatized. Orbits: The bony orbits are grossly intact. IMPRESSION: There is no hemorrhage, mass effect, or evidence of acute territorial ischemia by CT criteria. Electronically signed by: Isai Antoine M.D. 02/10/2019 8:52 AM SINGLE VIEW CHEST CLINICAL HISTORY: Strokelike symptoms. FINDINGS: An AP, portable, upright chest radiograph is compared to study dated 01/30/2019 and correlated with chest CT dated 01/31/2019. The examination is degraded by portable technique and patient rotation. A right internal jugular central venous infusion port is unchanged in position. The examination is degraded by portable technique and patient rotation. The cardiomediastinal silhouette is unremarkable. Emphysema and chronic interstitial thickening are similar to previous. There are low lung volumes, with asymmetric volume loss on the right. There is unchanged appearance of masslike right perihilar consolidation. Small pleural effusions are noted, right larger than left. The left lung is otherwise clear. No pneumothorax is seen. The skeletal structures are osteopenic. The bony thorax is grossly intact. IMPRESSION: 1. No significant change from 01/30/2019. 2. Emphysema, asymmetric volume loss in the right lung, and masslike consolidation in the right perihilar region are again noted. 3. Small pleural effusions, right larger left. Electronically signed by: Isai Antoine M.D. 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 On arrival the patient is minimally responsive with right gaze preference and ocular fasciculations and was taken to critical care bay after initial failed attempt and CT scan due to patient movements. Patient was given IV Ativan x1 with subsequent resolution of episode and responsiveness following commands. On arrival the patient has a temperature of 37.6 heart rate in the 90s and blood pressure stable. Stroke alert initially activated however given the patient is on Eliquis and was exhibiting seizure-like activity it was determined that patient is not a TPA candidate and so telestroke was not performed. CT head negative for ICH. CTA of the head and neck negative for occlusion or severe narrowing of large vessels. EKG without evidence of acute ischemia. Chest x- ray with large right masslike lesion and otherwise unchanged. WBC, H/H, platelets within normal limits. Lactate 6.5. Chemistry with anion gap of 16 but bicarb within normal limits. Creatinine 1.28 slightly increased from recent. Magnesium 1.1 with repletion ordered. Troponin negative. Pro- calcitonin within normal range. Patient was ordered for vancomycin and cefepime given her temperature and recent bacteremia. Case was discussed with LIZ Corbin PA-C, who will evaluate the patient for admission. I discussed the case with Dr. Martinez, neurology section cutter, agrees with MRI to evaluate for brain metastases as well as to defer Keppra load at this time unless the patient has a recurrent episode. Impression & Plan Seizure-like activity, Altered mental status, Elevated lactic acid level Critical Care Time I have personally spent greater than 35 minutes of critical care time in the direct management of this patient. This includes bedside care, interpretation of diagnostic studies, and testing, discussion with consultants, patient, and family members, and other required patient management activities. This 35 minutes is in excess of all separately billable procedures. Critical Care Time: Yes Total Critical Care Time: 35 Discharge Plan Visit Data *Final* Discharge Date/Time: 02/10/19 10:53 Chief Complaint: Stroke Alert Stated Complaint: STROKE SYMPTOMS ED Provider: Martin Butcher Discharge Problem: Seizure-like activity, Altered mental status, Elevated lactic acid level Patient Disposition: Admitted As Inpatient Discharge Instructions Interventions: ED Discharge Assessment Last Done: 02/10/19 10:53 Discharge Problem: Altered mental status Qualifiers: Altered mental status type: unspecified Qualified Code(s): R41.82 - Altered mental status, unspecified The scribe's documentation has been prepared under my direction and personally reviewed by me in its entirety. I confirm that the note above accurately reflects all work, treatment, procedures, and medical decision making performed by me.
[2019-02-10 09:50] LABS: Appearance Urine Clear (Clear); Bacteria Urine Automated Negative (Negative); Bilirubin Urine Negative (Negative); Blood Urine Negative (Negative); Color Urine Yellow; Epithelial Cell Urine Auto 20-30 /lpf (0-5); Glucose Urine UA Negative (Negative); Ketones Urine 1+ (Negative); Leukocyte Esterase Urine Negative (Negative); Nitrite Urine Negative (Negative); Protein Urine 1+ (Negative); RBC Urine Automated 0-4 /hpf (0-4); Specific Gravity Urine > 1.045 (1.000-1.030); Urobilinogen Urine Negative (Negative)
[2019-02-10] MEDS ORDERED: ACETAMINOPHEN 325 MG TAB PO PRN ×2 (09:55→10:48)
[2019-02-10] MEDS ORDERED: MAGNESIUM HYDROXIDE SUSP 30 ML UDC PO PRN ×2 (09:55→10:48)
[2019-02-10] MEDS ORDERED: ONDANSETRON INJ 2 MG/ML 2 ML VIAL IV PRN ×2 (09:55→10:48)
[2019-02-10] MEDS ORDERED: ALUMINUM/MAGNESIUM SUSP 30 ML UDC PO PRN ×2 (09:55→10:48)
[2019-02-10] MEDS ORDERED: POLYETHYLENE (MIRALAX) 17 GM PACK PO PRN ×2 (09:55→10:48)
[2019-02-10] MEDS ORDERED: ALBUTEROL HFA 8 GM INHALER INH PRN ×2 (10:11→10:22)
[2019-02-10 10:23] LABS: Base Excess VBG 0.6 mEq/L; Oxygen Saturation VBG 71.8 %; pH VBG 7.31 (7.36-7.41)
[2019-02-10] MEDS ORDERED: CEFEPIME CONSULT ACTIVE ONE (10:48)
[2019-02-10] MEDS ORDERED: NON-FORMULARY MEDICATION (Vancomycin 1.25 GM) IV SCH (10:48)
[2019-02-10] MEDS ORDERED: D5NSS + 20MEQ KCL 1,000 ML IV SCH (10:48)
[2019-02-10] MEDS ORDERED: NITROGLYCERIN SL 0.4 MG/TAB TAB SL PRN (10:48)
[2019-02-10] MEDS ORDERED: ONDANSETRON 8 MG TABLET PO PRN (10:48)
[2019-02-10] MEDS ORDERED: LORazepam 0.5 MG/1 ML VIAL IV PRN (10:48)
--- NOTE | 2019-02-10 11:29 | History & Physical Report ---
Date of Service February 10, 2019 Assessment & Plan (1) Altered mental status: Mrs. Bee is a 68 year female with a history of Hypertension, Dyslipidemia, Metastatic Colon Cancer to Lung, DVT / Pulmonary Emboli, Chronic Diastolic CHF, and recent hospitalization for Septicemia (coag neg staph) that was discharged 2 days ago, but continued to receive IV Vancomycin in our MTU on a daily basis. She was traveling as a passenger to [facility] with her this morning and just outside of the ER the patient's "eyes rolled back in her head, she was foaming at the mouth, was tense and shaking, and was unresponsive" according to her . This lasted for a total of about 15 minutes -- and shortly after receiving IV Ativan her symptoms resolved. She became more responsive but now is quite somnolent but arouses to verbal stimuli, and answers questions. She also has a fever. AMS Changes, Possible Seizure Activity: -- Blood cultures pending. -- Continue IV Vancomycin and IV Cefepime -- consults ordered for both. -- CT scan of brain, CTA of head and neck are unremarkable. -- Hypomagnesemia likely playing a role. IV Mg given, continue oral supplement. -- Continue IV Ativan as needed for any seizure activity. -- Elevated Lactate may be result of seizure like activity. -- Continue usual home medications. -- Continue supplemental O2 as needed and qHS. -- Continue CPAP qHS with supplemental O2. -- Monitor daily labs incuding CBC with diff, BMP, Serum Mg level. -- Order MRI of the Brain with and without contrast to r/o metastasis to brain. Present on Admission?: Yes (2) Elevated lactic acid level: Possibly secondary to seizure like activity. -- Recheck lactic acid level in the morning. Present on Admission?: Yes (3) Febrile illness: Recently discharged from the hospital with Coag Neg Staph Septicemia, ? port infection. Has continued IV Vancomycin daily in our MTU -- which is where she was going this morning when she developed seizure like activity. -- Blood cultures pending. -- Continue IV Vancomycin and add IV Cefepime. -- Procalcitonin level is WNL. -- Consult Infectious Disease for ongoing management. Present on Admission?: Yes History of Present Illness Chief Complaint: -- Seizure activity. -- Sepsis. Primary Care Provider: Bacilio Garcia MD Mrs. Bee is a 68 year female with a history of Hypertension, Dyslipidemia, Metastatic Colon Cancer to Lung, DVT / Pulmonary Emboli, Chronic Diastolic CHF, and recent hospitalization for Septicemia (coag neg paulino) that was discharged 2 days ago, but continued to receive IV Vancomycin in our MTU on a daily basis. She was traveling as a passenger to [facility] with her this morning and just outside of the ER the patient's "eyes rolled back in her head, she was foaming at the mouth, was tense and shaking, and was unresponsive" according to her . This lasted for a total of about 15 minutes -- and shortly after receiving IV Ativan her symptoms resolved. She became more responsive but now is quite somnolent but arouses to verbal stimuli, and answers questions. She also has a fever. Initially a "stroke alert" was called but subsequent CT scan of the head, CTA of neck and head were negative. Patient is markedly hypomagnesemic, has an elevated lactate level at 6.5 mmol/liter, but procalcitonin level is WNL. EKG shows no acute changes, and initial cardiac enzymes are negative. Patient currently admits to being sleepy but denies any focal weakness, numbness, or tingling of her extremities. She denies any visual disturbances. She had a mild headache for the past couple of days -- but denies any headache currently. No chest pain, SOB, unusual LARSEN. Denies a stiff neck, nausea, vomiting, or diarrhea. Allergies Allergy/AdvReac Type Severity Reaction Status Date / Time thiopental Allergy Unknown INCREASED Verified 02/10/19 09:41 BLEEDING WITH WISDOM TEETH SURG meperidine AdvReac Mild N/V Verified 02/10/19 09:41 morphine AdvReac Mild N/V Verified 02/10/19 09:41 Home Medications Home Medications Medication Instructions Recorded Confirmed Type albuterol sulfate 2 puff INHALATION Q6 PRN 08/07/18 02/10/19 History apixaban 5 mg PO BID 08/07/18 02/10/19 History aspirin [Aspirin Childrens] 81 mg PO DAILY 08/07/18 02/10/19 History beclomethasone dipropionate 2 puff INHALATION BID 08/07/18 02/10/19 History cyanocobalamin (vitamin B-12) 1,000 mcg PO HS 08/07/18 02/10/19 History prhwporoofl-xtwrmumph-wik C-Mn 1 cap PO BID 08/07/18 02/10/19 History [Glucosamine Chondroitin MaxStr] levothyroxine 125 mcg PO QAM 08/07/18 02/10/19 History multivitamin 1 tab PO DAILY 08/07/18 02/10/19 History ondansetron HCl 8 mg PO Q8 PRN 08/07/18 02/10/19 History sertraline 50 mg PO HS 08/07/18 02/10/19 History simvastatin 40 mg PO QPM 08/07/18 02/10/19 History ergocalciferol (vitamin D2) 50,000 unit PO DIRECTED 01/28/19 02/10/19 History [Vitamin D2] colestipol [Colestid] 1 g PO DAILY@1400 #30 tab 02/08/19 02/10/19 Rx magnesium oxide 800 mg PO BID #120 tab 02/08/19 02/10/19 Rx metoprolol tartrate 75 mg PO BID #90 tab 02/08/19 02/10/19 Rx nystatin 5 ml PO ACHS 10 Days #200 ml 02/08/19 02/10/19 Rx potassium chloride 20 meq PO BID #60 tab 02/08/19 02/10/19 Rx ranitidine HCl 150 mg PO BID #60 tab 02/08/19 02/10/19 Rx sucralfate [Carafate] 1 gm PO ACHS 7 Days #28 tab 02/08/19 02/10/19 Rx vancomycin 1.25 gm IV DIRECTED #2 ea 02/08/19 02/10/19 Rx Past Med/Surg History Medical History Febrile illness Essential hypertension (Chronic) Vomiting and diarrhea (Acute) HLD (hyperlipidemia) (Chronic) GERD (gastroesophageal reflux disease) (Chronic) Hypothyroid (Chronic) Encounter for chemotherapy management DVT (deep venous thrombosis) (Chronic) Colon cancer metastasized to lung (Chronic 09/18/08) "Adenocarcinoma of the colon with lung metastasis diagnosed in 2007 Status post right lobectomy 07/10/2008 Status post colonoscopy and biopsy 09/18/2008 revealing the colon lesion. Status post resection. This was followed by chemotherapy. Status post left upper lobe wedge resection 08/24/2011 due to metastasis Status post stereotactic radiation therapy in 2011 Completed chemotherapy in 2014 Status post wedge resection with Dr. navarrete 2015 Status post hypo-fractionated radiation therapy in 2016 PET/CT 08/24/2017 revealing metabolic activity of the right hilum. Status post completion of radiation therapy 10/24/2017 utilizing VMAT. PET/CT May 29, 2018 persistent uptake in the right paratracheal mass and suspicious changes for progression. Plan for systemic chemotherapy with irinotecan and Erbitux" On 11/02/17 11:11 Meaghan Alves wrote "Adenocarcinoma of the colon with lung metastasis diagnosed in 2007 Status post right lobectomy 07/10/2008 Status post colonoscopy and biopsy 09/18/2008 revealing the colon lesion. Status post resection. This was followed by chemotherapy. Status post left upper lobe wedge resection 08/24/2011 due to metastasis Status post stereotactic radiation therapy in 2011 Completed chemotherapy in 2014 Status post wedge resection with Dr. navarrete 2015 Status post hypo-fractionated radiation therapy in 2015 PET/CT 08/24/2017 revealing metabolic activity of the right hilum. Status post completion of radiation therapy 10/24/2017 utilizing VMAT." On 09/13/17 09:28 Meaghan Alves wrote "Adenocarcinoma of the colon with lung metastasis diagnosed in 2007 Status post right lobectomy 07/10/2008 Status post colonoscopy and biopsy 09/18/2008 revealing the colon lesion. Status post resection. This was followed by chemotherapy. Status post left upper lobe wedge resection 08/24/2011 due to metastasis Status post stereotactic radiation therapy in 2011 Completed chemotherapy in 2014 Status post wedge resection with Dr. navarrete 2015 Status post hypo-fractionated radiation therapy in 2015 PET/CT 08/24/2017 revealing metabolic activity of the right hilum." H/O: hysterectomy Pulmonary embolism (Resolved) HLD (hyperlipidemia) History of radiation therapy Hx of gallstones Neutropenia Surgical History History of colon surgery History of lung surgery History of tonsillectomy Family History Mother , early 80s of thyroid cancer Thyroid cancer Father , age 81 of gangrene complications No problems noted. 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 HEENT: Head is atraumatic, normocephalic. EOMs intact without nystagmus. Sclerae anicteric. Facies symmetric. No perioral cyanosis. Neck: No JVD. Carotid upstrokes +2 bilaterally without obvious bruits. Chest and Lungs: Diminished breath sounds in mid right lung gibbs, but otherwise clear CVS: S1 and S2 are regular without obvious murmurs, gallops, or rubs. PMI is nondisplaced. No lifts, heaves, or thrills. No abdominal aortic or renal bruits. Abdominal Exam: Bowel sounds present. No masses, organomegaly, or tenderness. Extremities: No clubbing, cyanosis, or edema. Intact posterior tibial and radial pulses bilaterally. Neurologic Exam: Patient is somnolent but arouses with verbal stimuli. Answers questions appropriately. Speech is clear. Sensation is intact to light touch over B/L UE's and LE's. Internet Network Specialist strength equal bilaterally. Gait was not assessed. Results & Data Laboratory Results Laboratory Results - last 24 hr 02/10/19 02/10/19 02/10/19 08:22 08:22 08:22 WBC 9.60 RBC 4.37 Hgb 13.5 POC Hgb Hct 41.9 POC Hct MCV 95.9 MCH 30.9 MCHC 32.2 RDW Std Deviation 47.6 H RDW Coeff of Marcell 13.7 Plt Count 213 MPV 11.1 H Immature Gran % (Auto) 0.3 Neut % (Auto) 59.9 Lymph % (Auto) 29.7 Wilcox % (Auto) 9.3 Eos % (Auto) 0.5 Baso % (Auto) 0.3 Immature Gran # (Auto) 0.03 H Neut # (Auto) 5.75 Lymph # (Auto) 2.85 Wilcox # (Auto) 0.89 H Eos # (Auto) 0.05 Baso # (Auto) 0.03 PT 11.4 INR 1.1 APTT 27.7 PTT Ratio 1.0 VBG pH VBG pCO2 VBG pO2 VBG HCO3 VBG O2 Saturation VBG Base Excess Barometric Pressure POC Sodium Sodium 141 POC Potassium Potassium 3.8 POC Chloride Chloride 100 Carbon Dioxide 26 POC Total CO2 Anion Gap 16.0 H POC Anion Gap POC BUN BUN 11 Creatinine 1.28 H POC Creatinine Est Cr Clr Drug Dosing Not Reportable Est GFR ( Amer) 50.4 Est GFR (Non-Af Amer) 43.5 BUN/Creatinine Ratio 8.2 L Glucose 119 H POC Glucose (other) Lactate Calcium 8.4 L POC Ioniz Calcium Charlotte Phosphorus 3.7 Magnesium 1.1 L Total Bilirubin 0.8 Direct Bilirubin 0.3 H AST 33 ALT 41 Alkaline Phosphatase 114 Troponin I < 0.015 Total Protein 7.6 Albumin 3.2 L Globulin 4.4 H Albumin/Globulin Ratio 0.7 L Procalcitonin TSH 21.500 H Free T4 1.20 Urine Color Urine Appearance Urine pH Ur Specific Cobb Urine Protein Urine Glucose (UA) Urine Ketones Urine Blood Urine Nitrite Urine Bilirubin Urine Urobilinogen Ur Leukocyte Esterase Urine WBC (Auto) Urine RBC (Auto) U Hyaline Cast (Auto) U Epithel Cells (Auto) Urine Bacteria (Auto) Blood Type Antibody Screen 02/10/19 02/10/19 02/10/19 08:22 08:22 08:24 WBC RBC Hgb POC Hgb 14.6 Hct POC Hct 43 MCV MCH MCHC RDW Std Deviation RDW Coeff of Marcell Plt Count MPV Immature Gran % (Auto) Neut % (Auto) Lymph % (Auto) Wilcox % (Auto) Eos % (Auto) Baso % (Auto) Immature Gran # (Auto) Neut # (Auto) Lymph # (Auto) Wilcox # (Auto) Eos # (Auto) Baso # (Auto) PT INR APTT PTT Ratio VBG pH VBG pCO2 VBG pO2 VBG HCO3 VBG O2 Saturation VBG Base Excess Barometric Pressure POC Sodium 140 Sodium POC Potassium 3.7 Potassium POC Chloride 96 L Chloride Carbon Dioxide POC Total CO2 25 Anion Gap POC Anion Gap 23.0 POC BUN 9 BUN Creatinine POC Creatinine 0.9 Est Cr Clr Drug Dosing Est GFR ( Amer) Est GFR (Non-Af Amer) BUN/Creatinine Ratio Glucose POC Glucose (other) 118 H Lactate Calcium POC Ioniz Calcium Charlotte 0.99 L Phosphorus Cancelled Magnesium Total Bilirubin Direct Bilirubin Cancelled AST ALT Alkaline Phosphatase Troponin I Total Protein Albumin Globulin Albumin/Globulin Ratio Procalcitonin 0.05 TSH Cancelled Free T4 Urine Color Urine Appearance Urine pH Ur Specific Cobb Urine Protein Urine Glucose (UA) Urine Ketones Urine Blood Urine Nitrite Urine Bilirubin Urine Urobilinogen Ur Leukocyte Esterase Urine WBC (Auto) Urine RBC (Auto) U Hyaline Cast (Auto) U Epithel Cells (Auto) Urine Bacteria (Auto) Blood Type Antibody Screen 02/10/19 02/10/19 02/10/19 08:35 08:35 08:35 WBC RBC Hgb POC Hgb Hct POC Hct MCV MCH MCHC RDW Std Deviation RDW Coeff of Marcell Plt Count MPV Immature Gran % (Auto) Neut % (Auto) Lymph % (Auto) Wilcox % (Auto) Eos % (Auto) Baso % (Auto) Immature Gran # (Auto) Neut # (Auto) Lymph # (Auto) Wilcox # (Auto) Eos # (Auto) Baso # (Auto) PT INR APTT PTT Ratio VBG pH VBG pCO2 VBG pO2 VBG HCO3 VBG O2 Saturation VBG Base Excess Barometric Pressure POC Sodium Sodium POC Potassium Potassium POC Chloride Chloride Carbon Dioxide POC Total CO2 Anion Gap POC Anion Gap POC BUN BUN Creatinine POC Creatinine Est Cr Clr Drug Dosing Est GFR ( Amer) Est GFR (Non-Af Amer) BUN/Creatinine Ratio Glucose POC Glucose (other) Lactate 6.5 H* Calcium POC Ioniz Calcium Charlotte Phosphorus Magnesium Total Bilirubin Direct Bilirubin AST ALT Alkaline Phosphatase Troponin I Total Protein Albumin Globulin Albumin/Globulin Ratio Procalcitonin TSH Free T4 Urine Color Yellow Urine Appearance Clear Urine pH 7.0 Ur Specific Cobb > 1.045 H Urine Protein 1+ H Urine Glucose (UA) Negative Urine Ketones 1+ H Urine Blood Negative Urine Nitrite Negative Urine Bilirubin Negative Urine Urobilinogen Negative Ur Leukocyte Esterase Negative Urine WBC (Auto) 1-5 Urine RBC (Auto) 0-4 U Hyaline Cast (Auto) 1-5 U Epithel Cells (Auto) 20-30 H Urine Bacteria (Auto) Negative Blood Type O Positive Antibody Screen NEGATIVE 02/10/19 10:13 WBC RBC Hgb POC Hgb Hct POC Hct MCV MCH MCHC RDW Std Deviation RDW Coeff of Marcell Plt Count MPV Immature Gran % (Auto) Neut % (Auto) Lymph % (Auto) Wilcox % (Auto) Eos % (Auto) Baso % (Auto) Immature Gran # (Auto) Neut # (Auto) Lymph # (Auto) Wilcox # (Auto) Eos # (Auto) Baso # (Auto) PT INR APTT PTT Ratio VBG pH 7.31 L VBG pCO2 57 H VBG pO2 40 VBG HCO3 28 VBG O2 Saturation 71.8 VBG Base Excess 0.6 Barometric Pressure 733.7 POC Sodium Sodium POC Potassium Potassium POC Chloride Chloride Carbon Dioxide POC Total CO2 Anion Gap POC Anion Gap POC BUN BUN Creatinine POC Creatinine Est Cr Clr Drug Dosing Est GFR ( Amer) Est GFR (Non-Af Amer) BUN/Creatinine Ratio Glucose POC Glucose (other) Lactate Calcium POC Ioniz Calcium Charlotte Phosphorus Magnesium Total Bilirubin Direct Bilirubin AST ALT Alkaline Phosphatase Troponin I Total Protein Albumin Globulin Albumin/Globulin Ratio Procalcitonin TSH Free T4 Urine Color Urine Appearance Urine pH Ur Specific Cobb Urine Protein Urine Glucose (UA) Urine Ketones Urine Blood Urine Nitrite Urine Bilirubin Urine Urobilinogen Ur Leukocyte Esterase Urine WBC (Auto) Urine RBC (Auto) U Hyaline Cast (Auto) U Epithel Cells (Auto) Urine Bacteria (Auto) Blood Type Antibody Screen Medications Administered Active Medications Generic Name Dose Route Start Last Admin Trade Name Freq PRN Reason Stop Dose Admin Acetaminophen 650 mg 02/10/19 09:55 Tylenol PO 03/12/19 09:54 Q4H PRN Pain or Fever Acetaminophen 650 mg 02/10/19 10:48 Tylenol PO 03/12/19 10:47 Q4H PRN Pain or Fever Al Hydrox/Mg Hydrox/Simethicone 15 ml 02/10/19 09:55 Maalox PO 03/12/19 09:54 Q4H PRN Dyspepsia Al Hydrox/Mg Hydrox/Simethicone 15 ml 02/10/19 10:48 Maalox PO 03/12/19 10:47 Q4H PRN Dyspepsia Albuterol 2 puffs 02/10/19 10:11 Ventolin Hfa INH 03/12/19 11:59 Q6HWA PRN Bronchospasm Albuterol 2 puffs 02/10/19 10:22 Ventolin Hfa INH 03/12/19 10:21 Q6 PRN Shortness Of Breath Or Wheezing Apixaban 5 mg 02/10/19 21:00 Eliquis PO 03/12/19 20:59 BID JAMIN Apixaban 5 mg 02/10/19 21:00 Eliquis PO 03/12/19 20:59 BID JAMIN Aspirin 81 mg 02/11/19 09:00 Ecotrin Ectab PO 03/13/19 08:59 QAM JAMIN Aspirin 81 mg 02/11/19 09:00 Aspirin PO 03/13/19 08:59 DAILY JAMIN Aspirin 81 mg 02/11/19 09:00 Ecotrin Ectab PO 03/13/19 08:59 QAM JAMIN Beclomethasone Dipropionate 2 puffs 02/10/19 21:00 Qvar 80mcg INH 03/12/19 20:59 BID JAMIN Beclomethasone Dipropionate 2 puffs 02/10/19 21:00 Qvar 80mcg INH 03/12/19 20:59 BID JAMIN Colestipol HCl 1 gm 02/10/19 14:00 Colestid PO 03/12/19 13:59 DAILY@1400 [facility] Ergocalciferol 50,000 units 02/10/19 10:48 Vitamin D2 PO 03/12/19 10:47 DIRECTED [facility] Fluconazole 200 mg 02/11/19 09:00 Diflucan PO 02/25/19 08:59 DAILY JAMIN Vancomycin HCl 2,500 mg/ 550 mls @ 200 mls/hr 02/10/19 09:03 Sodium Chloride IV 02/10/19 11:47 NOW ONE Potassium Chloride/Dextrose/Sod Cl 1,000 mls @ 50 mls/hr 02/10/19 10:00 D5nss + 20meq Kcl IV 03/12/19 09:59 .Q20H JAMIN Lorazepam 0.5 mg in 1 mls @ 1 mls/min 02/10/19 10:48 Ativan IV 03/12/19 10:47 Q4H PRN Anxiety/Agitation Potassium Chloride/Dextrose/Sod Cl 1,000 mls @ 50 mls/hr 02/10/19 10:48 D5nss + 20meq Kcl IV 03/12/19 10:47 .Q20H JAMIN Ipratropium Hensley 0.5 mg 02/10/19 10:15 Atrovent 0.02% 0.5mg/2.5ml INH 03/12/19 10:14 UD JAMIN Levalbuterol HCl 1.25 mg 02/10/19 10:15 Xopenex 1.25mg/0.5ml Neb INH 03/12/19 10:14 UD JAMIN Levothyroxine Sodium 125 mcg 02/11/19 06:30 Synthroid PO 03/13/19 06:29 DAILYBB JAMIN Magnesium Hydroxide 30 ml 02/10/19 09:55 Milk Of Magnesia PO 03/12/19 09:54 Q12H PRN Constipation Magnesium Hydroxide 30 ml 02/10/19 10:48 Milk Of Magnesia PO 03/12/19 10:47 Q12H PRN Constipation Magnesium Oxide 800 mg 02/10/19 21:00 Mag-Ox PO 03/12/19 20:59 BID JAMIN Metoprolol Tartrate 50 mg 02/10/19 21:00 Lopressor PO 03/12/19 20:59 BID JAMIN Metoprolol Tartrate 75 mg 02/10/19 21:00 Lopressor PO 03/12/19 20:59 BID JAMIN Miscellaneous 1 ea 02/10/19 14:00 Levalbuterol/Ipratropium 1.25mg NEB 03/12/19 13:59 Q6R JAMIN Miscellaneous Information 1 ea 02/10/19 09:03 Consult N/A 03/12/19 09:02 UD PRN Consult Multivitamins 1 tab 02/11/19 09:00 Multivitamin Tab PO 03/13/19 08:59 DAILY JAMIN Nitroglycerin 0.4 mg 02/10/19 10:48 Nitrostat SL 03/12/19 10:47 UD PRN Chest Pain Non-Formulary Medication 1,000 mcg 02/10/19 21:00 Cyanocobalamin (Vitamin B-12) PO 03/12/19 20:59 HS JAMIN Non-Formulary Medication 1 cap 02/10/19 21:00 Dsubjvzduwq-Mnusogdhj-Wtv C-Mn [Glucosamine Chondroitin Maxstr] PO 03/12/19 20:59 BID JAMIN Non-Formulary Medication 125 mcg 02/11/19 09:00 Levothyroxine PO 03/13/19 08:59 QAM JAMIN Non-Formulary Medication 1.25 gm 02/10/19 10:48 Vancomycin IV 03/12/19 10:47 DIRECTED JAMIN Nystatin 5 ml 02/10/19 11:30 Mycostatin PO 02/24/19 11:29 ACHS JAMIN Ondansetron HCl 4 mg 02/10/19 09:55 Zofran IV 03/12/19 09:54 Q6H PRN Nausea Ondansetron HCl 8 mg 02/10/19 10:48 Zofran PO 03/12/19 10:47 Q8 PRN Nausea And Vomiting Ondansetron HCl 4 mg 02/10/19 10:48 Zofran IV 03/12/19 10:47 Q6H PRN Nausea Pantoprazole Sodium 40 mg 02/11/19 09:00 Protonix PO 03/13/19 08:59 QAM JAMIN Polyethylene Glycol 17 gm 02/10/19 09:55 Miralax Powder Packet PO 03/12/19 09:54 DAILY PRN Constipation Polyethylene Glycol 17 gm 02/10/19 10:48 Miralax Powder Packet PO 03/12/19 10:47 DAILY PRN Constipation Potassium Chloride 20 meq 02/11/19 09:00 Klor-Con M20 PO 03/13/19 08:59 QAM JAMIN Potassium Chloride 20 meq 02/10/19 21:00 Klor-Con M20 PO 03/12/19 20:59 BID JAMIN Ranitidine HCl 150 mg 02/10/19 21:00 Zantac PO 03/12/19 20:59 BID JAMIN Sertraline HCl 50 mg 02/11/19 09:00 Zoloft PO 03/13/19 08:59 QAM JAMIN Sertraline HCl 50 mg 02/10/19 21:00 Zoloft PO 03/12/19 20:59 HS JAMIN Simvastatin 40 mg 02/10/19 21:00 Zocor PO 03/12/19 20:59 PM JAMIN Simvastatin 40 mg 02/10/19 21:00 Zocor PO 03/12/19 20:59 QPM JAMIN Sucralfate 1 gm 02/10/19 11:30 Carafate Tab PO 03/12/19 11:29 ACHS JAMIN Valacyclovir HCl 500 mg 02/10/19 21:00 Valtrex PO 02/24/19 20:59 BID JAMIN Supervising Physician Co-Signing Physician Notes Joshua Callaway MD During my face to face encounter, I performed a History and Physical Exam. I reviewed above note and agree with it. The encounter was done withpu the presence of the PA. I reviewed the images. It appears patient may have PRES, will discuss with neurology given that patient has history of headache, elevated BP and images suggestive of PRES. (POSTERIOR R EVERSIBLE ENCEPHALOPATHIC SYNDROME.) Will continue to monitor patient in telemetry. (1) Altered mental status Altered mental status type: unspecified Qualified Code(s): R41.82 - Altered mental status, unspecified
[2019-02-10] MEDS: NYSTATIN SUSP 500,000 U/5 ML UDC PO SCH ×3 (11:47→20:26)
[2019-02-10] MEDS: SUCRALFATE 1 GM TAB PO SCH ×3 (11:47→20:30)
[2019-02-10] MEDS ORDERED: ACETAMINOPHEN 1,000 MG/100 ML VIAL IV PRN (11:58)
[2019-02-10] MEDS ORDERED: CEFEPIME CONSULT ACTIVE PRN (12:09)
[2019-02-10] MEDS ORDERED: GADOBUTROL 7.5ML VIAL IV PRN (13:58)
[2019-02-10] MEDS ORDERED: XOPENEX/ATROVENT 1.25mg/0.5MG NEB COMBO NEB SCH (14:00)
[2019-02-10] MEDS: D5NSS + 20MEQ KCL 20 MEQ/1,000 ML BAG IV SCH (14:03)
[2019-02-10] MEDS: COLESTIPOL HCL 1 GM TAB PO SCH (14:08)
--- NOTE | 2019-02-10 14:19 | Magnetic Resonance Report ---
MRI OF THE BRAIN COMBO CLINICAL HISTORY: Change in mental status. COMPARISON STUDY: CT of the brain dated 02/10/2019. MRI of the brain dated 02/24/2015. TECHNIQUE: MRI of the brain was performed utilizing various T1 and T2-weighted sequences in the axial , sagittal, and coronal planes. Contrast-enhanced sequences were acquired following the administratio n of 12.5 cc of Gadavist. The examination is performed using the seizure,. The examination is comprom ised by motion artifact. FINDINGS: Brain parenchyma: The examination is compromised by motion artifact. There is increased FLAIR signal identified involving the posterior parietal and occipital cortex bilaterally. This is only well appre ciated on the coronal flair sequence which is significantly motion degraded. There may be faint patch y abnormal enhancement within these regions. There is age-related involutional change noting mild sub cortical and periventricular microangiopathic disease. There is no hemorrhage or mass effect. There i s no restricted diffusion typical for acute ischemia. No enhancing parenchymal mass lesion is identif ied. No extra-axial fluid collection is seen. The cerebellar tonsils are normal in configuration. Ventricles, sulci, and cisterns: Prominent secondary to involutional change. Pituitary and sella: Partially empty sella is incidentally noted. Intracranial vasculature: Normal flow voids are maintained at the skull base. Orbits: The bony orbits are grossly intact. Orbital contents are normal in appearance. Sinuses and mastoids: There are bilateral mastoid effusions. Mild mucosal thickening and small retent ion cysts are noted in the maxillary antra. The remaining paranasal sinuses are clear. Calvarium: Unremarkable. Cervical cord: Partially visualized cervical spinal cord is normal in morphology and signal intensity . IMPRESSION: 1. Significantly motion compromised examination. 2. There is no hemorrhage, enhancing parenchymal mass, or evidence of acute ischemia. 3. There is increased FLAIR signal identified within the posterior parietal and occipital cortex bila terally, only well appreciated on the motion compromised FLAIR sequence. There may be faint patchy ab normal enhancement within these regions on the postcontrast series. The appearance is nonspecific and the distribution is most suggestive of PRES. The appearance is atypical for leptomeningeal tumor whi ch is considered less likely. Clinical correlation will be essential. Electronically signed by: Isai Antoine M.D. 02/10/2019 2:16 PM
[2019-02-10] MEDS: LEVALBUTEROL 1.25MG/0.5ML NEB INH SCH ×2 (14:22→19:37)
[2019-02-10] MEDS: IPRATROPIUM BROMIDE NEB SOLN 0.02% 2.5 ML VIAL INH SCH ×2 (14:22→19:34)
--- NOTE | 2019-02-10 14:54 | Pharmacy Report ---
Pharmacy Abx Initial Consult - Date of Service February 10, 2019 - Pharmacy Dosing Scope Date of Consult:02/10/19 Consultation requested by: Oumar Lofton PA-C Pharmacy is consulted to initiate Vancomycin IV dosing therapy, order appropriate labs and adjust drug dose/frequency. - Subjective The patient is a 68 year old F admitted on 02/10/19 10:48. - Objective Height: 5 ft 5 in Weight: 129.6 kg Vital Signs (Past 12hrs): Vital Signs Temp Pulse Pulse Resp BP BP Pulse Ox 02/10/19 14:22 88 16 98 02/10/19 12:00 36.7 C 88 20 157/99 H 97 02/10/19 11:15 91 H 13 148/123 H 94 02/10/19 10:12 83 18 145/102 H 98 02/10/19 09:07 94 H 20 159/93 H 99 02/10/19 08:15 37.6 C H 28 H 152/88 H 91 Lab Results (24hrs): Laboratory Tests (24 Hours) 02/10/19 02/10/19 02/10/19 08:22 08:22 08:22 WBC 9.60 Neut # (Auto) 5.75 Creatinine 1.28 H Est Cr Clr Drug Dosing Not Reportable Procalcitonin 0.05 Micro Results: 02/10/19 09:01 Blood Culture - Pending Blood 02/10/19 08:35 Blood Culture - Pending Blood - Risk Factors for Resistance * Hospitalization for 48 hours or more within the past 90 days * Antimicrobial use within the last 90 days- Vancomycin + Cefepime during recent admission last week (discharged on 02/08/19). - Assessment & Plan Assessment * 68 year old F recently admitted here for coag negative staph septicemia and treated with Vancomycin. Patient was going to have continued treatment with Vancomycin port flushes in the [facility] but developed seizures and now admitted again. * Patient is currently ordered both Vancomycin and Cefepime for possible bacteremia. Plan Vancomycin for treatment of possible Bacteremia. Vancomycin IV * Estimated PK Parameters: Vd 0.6 L/kg, Edgar 0.053 hr-1, t1/2 13 hr * Loading dose: Vancomycin 2500 mg x1 given in ED (20 mg/kg) * Maintenance dose: 1250 mg IV (9.6 mg/kg) every 12 hours * Goal trough level for bacteremia: 15 to 20 mcg/mL * Trough Vanco level ordered for 02/12/19 before dose at 1200. * A less than traditional dose has been selected due to likelihood of drug accumulation in obese patient (BMI = 47.5 kg/m2). Pharmacy will continue to follow and will adjust dose/frequency as necessary. Thank you.
[2019-02-10] MEDS: CEFEPIME 2,000 MG in SYRINGE 7.5 ML IV SCH (15:56)
[2019-02-10] MEDS ORDERED: DIPHENHYDRAMINE IV STA (17:07)
[2019-02-10] MEDS ORDERED: DiphenhydrAMINE HCL 50 MG/ML VIAL IV STA (17:25)
[2019-02-10] MEDS ORDERED: PROCHLORPERAZINE 10 MG in SYRINGE 8 ML IV ONE (17:30)
[2019-02-10] MEDS: BECLOMETHASONE DIP HFA 80 MCG 8.7G INH INH SCH (20:26)
[2019-02-10] MEDS: SIMVASTATIN 40 MG TAB PO SCH (20:28)
[2019-02-10] MEDS: VALACYCLOVIR HCL 500 MG TABLET PO SCH (20:29)
[2019-02-10] MEDS: POTASSIUM CHLORIDE 20 MEQ TABCR PO SCH (20:31)
[2019-02-10] MEDS: APIXABAN 5 MG TABLET PO SCH (20:32)
[2019-02-10] MEDS: SERTRALINE HCL 50 MG TABLET PO SCH (20:32)
[2019-02-10] MEDS: CYANOCOBALAMIN 500 MCG TABLET (VITAMIN B-12) PO SCH (20:35)
[2019-02-10] MEDS: METOPROLOL TARTRATE 50 MG TAB PO SCH (20:36)
[2019-02-10] MEDS: MAGNESIUM OXIDE 400 MG TAB PO SCH (20:41)
[2019-02-10] MEDS ORDERED: SERTRALINE HCL 50 MG TABLET PO SCH (21:00)
[2019-02-10] MEDS ORDERED: APIXABAN 5 MG TABLET PO SCH (21:00)
[2019-02-10] MEDS ORDERED: SIMVASTATIN 40 MG TAB PO SCH (21:00)
[2019-02-10] MEDS ORDERED: BECLOMETHASONE DIP HFA 80 MCG 8.7G INH INH SCH (21:00)
[2019-02-10] MEDS ORDERED: METOPROLOL TARTRATE 50 MG TAB PO SCH ×2 (21:00)
[2019-02-10] MEDS ORDERED: NON-FORMULARY MEDICATION (Cyanocobalamin (Vitamin B-12) 1,000 MCG) PO SCH (21:00)
[2019-02-11] MEDS: VANCOMYCIN HCL 1,250 MG in SODIUM CHLORIDE 0.9% 250 ML IV SCH ×2 (00:20→12:18)
[2019-02-11] MEDS ORDERED: METOPROLOL TARTRATE 1 MG/ML VIAL IV STA (00:49)
[2019-02-11] MEDS: IPRATROPIUM BROMIDE NEB SOLN 0.02% 2.5 ML VIAL INH SCH ×4 (02:00→19:28)
[2019-02-11] MEDS: LEVALBUTEROL 1.25MG/0.5ML NEB INH SCH ×4 (02:00→19:29)
[2019-02-11] MEDS: CEFEPIME 2,000 MG in SYRINGE 7.5 ML IV SCH ×2 (04:17→16:19)
[2019-02-11 05:07] LABS: Basophils # (auto) 0.03 K/uL (0-0.2); Basophils % (auto) 0.5 %; Eosinophils # (auto) 0.03 K/uL (0-0.5); Eosinophils % (auto) 0.5 %; Hematocrit (blood only) 34.4 % (37-47); Hemoglobin 10.9 g/dL (12.0-16.0); Immature Granulocytes # (auto) 0.03 K/uL (0.00-0.02); Immature Granulocytes % (auto) 0.5 %; Lymphocytes # (auto) 1.04 K/uL (1.2-3.4); Lymphocytes % (auto) 17.2 %; Mean Corpuscular Hgb Conc 31.7 g/dL (32-36); Mean Corpuscular Volume 93.2 fL (80-100); Mean Platelet Volume 10.7 fL (7.4-10.4); Monocytes % (auto) 11.6 %; Neutrophils % (auto) 69.7 %; Platelet Count 172 K/uL (130-400); RDW Coefficient of Variation 13.9 % (11.5-14.5); RDW Standard Deviation 46.9 fL (36.4-46.3); Red Blood Count 3.69 M/uL (4.2-5.4); White Blood Count 6.03 K/uL (4.8-10.8)
[2019-02-11 05:45] LABS: BUN Creatinine Ratio 10.9 (10-20); Calcium 7.3 mg/dl (8.5-10.1); Creatinine Clr Calc Pharmacy 101.6 ml/min; Est GFR (African American) 97.8; Est GFR (Non-African American) 84.4; Magnesium 1.2 mg/dl (1.8-2.4); Potassium 3.5 mmol/L (3.5-5.1)
[2019-02-11] MEDS: LEVOTHYROXINE SODIUM 125 MCG TABLET PO SCH (06:05)
[2019-02-11] MEDS: VALACYCLOVIR HCL 500 MG TABLET PO SCH ×2 (08:33→19:50)
[2019-02-11] MEDS: PANTOprazole 40 MG TAB PO SCH (08:33)
[2019-02-11] MEDS: MULTIVITAMIN TAB PO SCH (08:33)
[2019-02-11] MEDS: ASPIRIN 81 MG ECTAB PO SCH (08:33)
[2019-02-11] MEDS: APIXABAN 5 MG TABLET PO SCH ×2 (08:33→19:52)
[2019-02-11] MEDS: SUCRALFATE 1 GM TAB PO SCH ×4 (08:33→19:50)
[2019-02-11] MEDS: METOPROLOL TARTRATE 50 MG TAB PO SCH ×2 (08:34→19:53)
[2019-02-11] MEDS: MAGNESIUM OXIDE 400 MG TAB PO SCH ×2 (08:34→19:56)
[2019-02-11] MEDS: POTASSIUM CHLORIDE 20 MEQ TABCR PO SCH ×2 (08:34→19:51)
[2019-02-11] MEDS: NYSTATIN SUSP 500,000 U/5 ML UDC PO SCH ×4 (08:34→19:57)
[2019-02-11] MEDS: FLUCONAZOLE 100 MG TAB PO SCH (08:34)
[2019-02-11] MEDS: D5NSS + 20MEQ KCL 20 MEQ/1,000 ML BAG IV SCH (08:35)
[2019-02-11] MEDS: BECLOMETHASONE DIP HFA 80 MCG 8.7G INH INH SCH ×2 (08:35→19:57)
[2019-02-11] MEDS ORDERED: POTASSIUM CHLORIDE 20 MEQ TABCR PO SCH (09:00)
[2019-02-11] MEDS ORDERED: ERGOCALCIFEROL 50,000 UNITS CAP PO SCH (09:00)
[2019-02-11] MEDS ORDERED: ASPIRIN 81 MG ECTAB PO SCH (09:00)
[2019-02-11] MEDS ORDERED: ASPIRIN CHEW 324 MG PO SCH (09:00)
[2019-02-11] MEDS ORDERED: LEVOTHYROXINE 125 MCG PO SCH (09:00)
[2019-02-11] MEDS ORDERED: SERTRALINE HCL 50 MG TABLET PO SCH (09:00)
[2019-02-11] MEDS: COLESTIPOL HCL 1 GM TAB PO SCH (12:18)
--- NOTE | 2019-02-11 13:13 | Neurology Consultation ---
Date of Consultation February 11, 2019 Assessment & Plan (1) New onset seizure: Patient had a new onset generalized tonic seizure the morning of February 10. This gave her a significant postictal confusion state but she is improving nicely over the last 24 hours. She is not quite back to baseline clinically, but postictal confusion may take 2 days or so to completely returned to normal. She has no other focal neurologic findings on exam or meningeal signs. The etiology of her seizure is likely secondary to a significant hypomagnesemia. Hypocalcemia may create seizures as well. There is no evidence on MRI for stroke or obvious tumor. The changes seen on MRI posteriorly are likely more due to blood pressure and would be temporary. In addition, there is no evidence for central nervous system infection (meningoencephalitis). Sepsis, by itself, could create an inflammation and trigger a seizure but her sepsis has been treated 4 days now with vancomycin. Etiology of hypomagnesemia is likely secondary to cetuximab, which also can give hypocalcemia. Other etiologies need to be considered. (2) Colon cancer metastasized to lung: Patient has metastatic colon cancer to the lung. There is no evidence for central nervous system metastasis. Recommendations: 1. A replace magnesium and monitored keep it from falling below 2. 2. I see no need for an EEG at this time. 3. There is no indication for an anticonvulsant unless she continues to have seizures with normal electrolytes. 4. We may consider repeating the MRI of the brain with without contrast later, depending on her clinical course 5. Otherwise increase activity as able. Overall, I spent a total of 90 minutes with this case including review of records, review of MRI and CT films, direct evaluation the patient at bedside, and discussion of the case with the patient and her son, daughter, and at bedside, clinical staff, and Dr. Callaway, including differential diagnosis and treatment options. History of Present Illness Reason for Consultation: Patient is a 68-year-old, who I was asked to see the request of Dr. Callaway, for neurologic evaluation regarding new onset seizures. Requesting Physician: Dr. Callaway Attending Physician: Joshua Callaway History of Present Illness Patient has a history of hypertension and dyslipidemia without history of stroke. He has never had any seizures or meningitis as far as anyone is aware. She has had no serious head trauma. She spent 11 days in the hospital from January 28 to February 08 for septicemia. She also has a history of DVT and pulmonary emboli on Eliquis. She has colon cancer metastatic to the lungs and is receiving cetuximab comma most recently January 25 2019. Colon cancer has been diagnosed since 2007. During this hospitalization she was noted to have pancytopenia and severe septicemia from coag-negative Staph. She has been on vancomycin. Her magnesium and phosphorus were quite low. By the time of discharge on February 08, her magnesium went from a low at 0.9 to 1.8. Over the next 2 days she complained of a generalized pressure headache. She was coming to the hospital around 8 in the morning February 09 for a vancomycin injection at the medical treatment unit when in the vehicle her noticed a sudden onset of unresponsiveness, her eyes rolling back making gurgly noises and foam was coming from her mouth bilaterally. She was twisted wi th her right arm up overhead near left arm down and generally stiff. Her eyes were wide open staring and unresponsive. The worst of this lasted at least 2 minutes. She arrived to the emergency room on February 10 at 0815 with a temperature 37.6, pulse of 94 and regular, respiratory rate 28, blood pressure 152/88, and O2 saturation 91 percent climbing to 99 percent several minutes later. She was described as unresponsive with right gaze in the emergency room White count was 9.6 and there is mild anemia. Glucose was 119 and calcium was low 8.4 and magnesium very low at 1.1. Today it is only up to 1.2. Urinalysis was unremarkable. CT scan of the head was unremarkable. Chest x-ray shows some COPD changes and no change from January 30. CT angiography of the head and neck were unremarkable with no significant stenoses or vessel anomalies. MRI of the brain showed no acute changes such as stroke. On 1 FLAIR sequencing there were some posterior parietal/occipital changes in the white matter that did not enhance and were somewhat consistent with PRES. The patient was not given anticonvulsants. Since admission, the patient is done well with no additional seizures or episodes. She has been confused but rapidly clearing over the last 24 hours. She has no complaint of headache or pain currently does not have double vision, chest pain, or abdominal pain. She has no recall the events of yesterday and admits to being confused with trouble concentrating. Allergies Allergy/AdvReac Type Severity Reaction Status Date / Time thiopental Allergy Unknown INCREASED Verified 02/10/19 09:41 BLEEDING WITH WISDOM TEETH SURG meperidine AdvReac Mild N/V Verified 02/10/19 09:41 morphine AdvReac Mild N/V Verified 02/10/19 09:41 Home Medications Home Medications Medication Instructions Recorded Confirmed Type albuterol sulfate 2 puff INHALATION Q6 PRN 08/07/18 02/10/19 History apixaban 5 mg PO BID 08/07/18 02/10/19 History aspirin [Aspirin Childrens] 81 mg PO DAILY 08/07/18 02/10/19 History beclomethasone dipropionate 2 puff INHALATION BID 08/07/18 02/10/19 History cyanocobalamin (vitamin B-12) 1,000 mcg PO HS 08/07/18 02/10/19 History [id number] C-Mn 1 cap PO BID 08/07/18 02/10/19 History [Glucosamine Chondroitin MaxStr] levothyroxine 125 mcg PO QAM 08/07/18 02/10/19 History multivitamin 1 tab PO DAILY 08/07/18 02/10/19 History ondansetron HCl 8 mg PO Q8 PRN 08/07/18 02/10/19 History sertraline 50 mg PO HS 08/07/18 02/10/19 History simvastatin 40 mg PO QPM 08/07/18 02/10/19 History ergocalciferol (vitamin D2) 50,000 unit PO DIRECTED 01/28/19 02/10/19 History [Vitamin D2] colestipol [Colestid] 1 g PO DAILY@1400 #30 tab 02/08/19 02/10/19 Rx fluconazole [Diflucan] 200 mg PO DAILY 5 Days #5 tab 02/08/19 02/10/19 Rx magnesium oxide 800 mg PO BID #120 tab 02/08/19 02/10/19 Rx metoprolol tartrate 75 mg PO BID #90 tab 02/08/19 02/10/19 Rx nystatin 5 ml PO ACHS 10 Days #200 ml 02/08/19 02/10/19 Rx potassium chloride 20 meq PO BID #60 tab 02/08/19 02/10/19 Rx ranitidine HCl 150 mg PO BID #60 tab 02/08/19 02/10/19 Rx sucralfate [Carafate] 1 gm PO ACHS 7 Days #28 tab 02/08/19 02/10/19 Rx valacyclovir [Valtrex] 500 mg PO BID 5 Days #10 tab 02/08/19 02/10/19 Rx vancomycin 1.25 gm IV DIRECTED #2 ea 02/08/19 02/10/19 Rx Patient History Medical History Febrile illness Essential hypertension (Chronic) Vomiting and diarrhea (Acute) HLD (hyperlipidemia) (Chronic) GERD (gastroesophageal reflux disease) (Chronic) Hypothyroid (Chronic) Encounter for chemotherapy management DVT (deep venous thrombosis) (Chronic) Colon cancer metastasized to lung (Chronic 09/18/08) "Adenocarcinoma of the colon with lung metastasis diagnosed in 2007 Status post right lobectomy 07/10/2008 Status post colonoscopy and biopsy 09/18/2008 revealing the colon lesion. Status post resection. This was followed by chemotherapy. Status post left upper lobe wedge resection 08/24/2011 due to metastasis Status post stereotactic radiation therapy in 2011 Completed chemotherapy in 2014 Status post wedge resection with Dr. navarrete 2016 Status post hypo-fractionated radiation therapy in 2016 PET/CT 08/24/2017 revealing metabolic activity of the right hilum. Status post completion of radiation therapy 10/24/2017 utilizing VMAT. PET/CT May 29, 2018 persistent uptake in the right paratracheal mass and suspicious changes for progression. Plan for systemic chemotherapy with irinotecan and Erbitux" On 11/02/17 11:11 Meaghan Alves wrote "Adenocarcinoma of the colon with lung metastasis diagnosed in 2007 Status post right lobectomy 07/10/2008 Status post colonoscopy and biopsy 09/18/2008 revealing the colon lesion. Status post resection. This was followed by chemotherapy. Status post left upper lobe wedge resection 08/24/2011 due to metastasis Status post stereotactic radiation therapy in 2011 Completed chemotherapy in 2014 Status post wedge resection with Dr. navarrete 2016 Status post hypo-fractionated radiation therapy in 2016 PET/CT 08/24/2017 revealing metabolic activity of the right hilum. Status post completion of radiation therapy 10/24/2017 utilizing VMAT." On 09/13/17 09:28 Meaghan Alves wrote "Adenocarcinoma of the colon with lung metastasis diagnosed in 2007 Status post right lobectomy 07/10/2008 Status post colonoscopy and biopsy 09/18/2008 revealing the colon lesion. Status post resection. This was followed by chemotherapy. Status post left upper lobe wedge resection 08/24/2011 due to metastasis Status post stereotactic radiation therapy in 2011 Completed chemotherapy in 2014 Status post wedge resection with Dr. navarrete 2015 Status post hypo-fractionated radiation therapy in 2015 PET/CT 08/24/2017 revealing metabolic activity of the right hilum." H/O: hysterectomy Pulmonary embolism (Resolved) HLD (hyperlipidemia) History of radiation therapy Hx of gallstones Neutropenia Surgical History History of colon surgery History of lung surgery History of tonsillectomy Family History Mother , early 80s of thyroid cancer Thyroid cancer Father , age 81 of gangrene complications No problems noted. 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 [employer] Feels Safe at Home: Yes Safety Concerns: Feels Safe At This Time Smoking Status: Never smoker Hx Alcohol Use: No Hx Substance Use: No Review of Systems Constitutional: + fatigue and + weakness; no fever Eyes: no diplopia, no eye pain and no worsening vision Ear, Nose, Mouth, Throat: no ear pain, no tinnitus, no hearing loss and no dysphagia Respiratory: no cough and no dyspnea Cardiovascular: no chest pain, no dyspnea and no palpitations Gastrointestinal: no abdominal pain, no nausea and no vomiting Genitourinary (Female): no dysuria, no urinary frequency and no urinary incontinence Musculoskeletal: no back pain, no neck pain, no radicular pain, no myalgia, no muscle weakness and no muscle atrophy Integumentary: no rash and no lesions Neurologic: + confusion and + memory loss; no gait abnormality, no falls, no localized weakness, no generalized weakness, no tingling, no numbness, no tremor(s), no abnormal movements, no dizziness, no headache(s), no abnormal speech and no behavioral changes Psychiatric: + difficulty concentrating; no depression, no abnormal sleep pattern, no anxiety, no confusion and no hallucinations Endocrine: + fatigue; no flushing Hematologic / Lymphatic: + easy bleeding and + easy bruising Allergy / Immunological: no urticaria Physical Exam Vital Signs (Past 24 Hours): Last Vital Signs Temp 36.8 C 02/11/19 12:23 Pulse 87 02/11/19 12:23 Resp 23 02/11/19 12:23 BP 155/91 H 02/11/19 12:23 Pulse Ox 99 02/11/19 12:23 Physical Exam: The patient is right-handed. The patient is awake, alert, and attentive. Speech is normal without any aphasia or dysarthria, although she can be slow to respond. Mentation and thought proc esses are i fairly good although again she is slow to respond. She knew her name, age (with some thinking) where she lived, and names of her family members in the room. She did not know the month, day, or year or when she retired. She has some trouble with concentrating. Mood is normal and affect is mildly flat but appropriate.. General appearance and grooming are normal. Memory is poor for the events of yesterday. She is slow but improving with her memory otherwise. The discs are sharp with positive venous pulsations bilaterally. There are no exudates, hemorrhages, or blood vessel changes seen. Pupils are 3 mm bilaterally and reactive to light. Extraocular eye muscles are intact without nystagmus. Visual acuity and visual gibbs seem normal grossly to confrontation. There are no deficits to sensation in the face in all 3 distributions of the fifth cranial nerve bilaterally. Corneal reflexes are positive bilaterally. Facial strength and symmetry was normal bilaterally. Hearing seems intact grossly to voice and finger rub bilaterally. Palate moves well without asymmetry. There is normal sternocleidomastoid and trapezius (shoulder shrug) strength bilaterally. Tongue is midline with good strength bilaterally. Neck has a full range of motion without discomfort. There are no cervical bruits bilaterally. There are no cranial or ocular bruits. Heart is without murmur. There is a regular rhythm and rate. Cervical, thoracic, and lumbar spine are nontender to palpation. Gait was not tested but stance sitting up in the bed was reasonable. With outstretched arms there is no drift. There are no resting, postural, or action tremors. There is no ataxia with finger to nose testing. There is good facility in the hands. No other abnormal involuntary movements are noted. 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 Motor strength is 5/5 diffusely in the legs bilaterally including hip flexors, quadriceps, hamstrings, gastrocnemius, tibialis anterior, tibialis posterior, and Peroneii muscles bilaterally. Toe extensors are normal and there is good bulk in the extensor digitorum brevis muscles bilaterally. The limbs have good tone without rigidity or spasticity. There is no atrophy noted in the muscles. Muscle bulk is normal, there is no tenderness to palpation, no myotonia to percussion, and no fasciculations seen. Sensory examination is intact to touch and pin throughout all 4 limbs diffusely. Reflexes are 1/4 in the biceps, triceps, brachioradialis, quadriceps, and Achilles tendons bilaterally. Toes are downgoing with plantar stimulation bilaterally. Peripheral pulses are present and of normal quality distally in all 4 limbs. There is no peripheral edema noted in the limbs. Results & Data Diagnostic Findings MRI OF THE BRAIN COMBO CLINICAL HISTORY: Change in mental status. COMPARISON STUDY: CT of the brain dated 02/10/2019. MRI of the brain dated 02/24/2015. TECHNIQUE: MRI of the brain was performed utilizing various T1 and T2-weighted sequences in the axial, sagittal, and coronal planes. Contrast-enhanced sequences were acquired following the administration of 12.5 cc of Gadavist. The examination is performed using the seizure,. The examination is compromised by motion artifact. FINDINGS: Brain parenchyma: The examination is compromised by motion artifact. There is increased FLAIR signal identified involving the posterior parietal and occipital cortex bilaterally. This is only well appreciated on the coronal flair sequence which is significantly motion degraded. There may be faint patchy abnormal enhancement within these regions. There is age-related involutional change noting mild subcortical and periventricular microangiopathic disease. There is no hemorrhage or mass effect. There is no restricted diffusion typical for acute ischemia. No enhancing parenchymal mass lesion is identified. No extra-axial fluid collection is seen. The cerebellar tonsils are normal in configuration. Ventricles, sulci, and cisterns: Prominent secondary to involutional change. Pituitary and sella: Partially empty sella is incidentally noted. Intracranial vasculature: Normal flow voids are maintained at the skull base. Orbits: The bony orbits are grossly intact. Orbital contents are normal in appearance. Sinuses and mastoids: There are bilateral mastoid effusions. Mild mucosal thickening and small retention cysts are noted in the maxillary antra. The remaining paranasal sinuses are clear. Calvarium: Unremarkable. Cervical cord: Partially visualized cervical spinal cord is normal in morphology and signal intensity. IMPRESSION: 1. Significantly motion compromised examination. 2. There is no hemorrhage, enhancing parenchymal mass, or evidence of acute ischemia. 3. There is increased FLAIR signal identified within the posterior parietal and occipital cortex bilaterally, only well appreciated on the motion compromised FLAIR sequence. There may be faint patchy abnormal enhancement within these regions on the postcontrast series. The appearance is nonspecific and the distribution is most suggestive of PRES. The appearance is atypical for leptomeningeal tumor which is considered less likely. Clinical correlation will be essential. Electronically signed by: Isai Antoine M.D. 02/10/2019 2:16 PM
[2019-02-11] MEDS: MAGNESIUM SULFATE / D5W 1 GM/100 ML BAG IV SCH ×2 (14:15→15:17)
[2019-02-11] MEDS: SIMVASTATIN 40 MG TAB PO SCH (19:49)
[2019-02-11] MEDS: CYANOCOBALAMIN 500 MCG TABLET (VITAMIN B-12) PO SCH (19:50)
[2019-02-11] MEDS: SERTRALINE HCL 50 MG TABLET PO SCH (19:57)
[2019-02-12] MEDS: VANCOMYCIN HCL 1,250 MG in SODIUM CHLORIDE 0.9% 250 ML IV SCH ×2 (01:11→13:45)
[2019-02-12] MEDS: IPRATROPIUM BROMIDE NEB SOLN 0.02% 2.5 ML VIAL INH SCH ×4 (01:49→20:04)
[2019-02-12] MEDS: LEVALBUTEROL 1.25MG/0.5ML NEB INH SCH ×4 (01:49→20:03)
--- NOTE | 2019-02-12 02:09 | Hospitalist Progress Note ---
Date of Service February 11, 2019 Assessment & Plan (1) Altered mental status: Mrs. Bee is a 68 year female with a history of Hypertension, Dyslipidemia, Metastatic Colon Cancer to Lung, DVT / Pulmonary Emboli, Chronic Diastolic CHF, and recent hospitalization for Septicemia (coag neg staph) that was discharged 2 days ago, but continued to receive IV Vancomycin in our MTU on a daily basis. She was traveling as a passenger to [facility] with her this morning and just outside of the ER the patient's "eyes rolled back in her head, she was foaming at the mouth, was tense and shaking, and was unresponsive" according to her . This lasted for a total of about 15 minutes -- and shortly after receiving IV Ativan her symptoms resolved. She became more responsive but now is quite somnolent but arouses to verbal stimuli, and answers questions. She also has a fever. D/W neurology Appears patient either has PRES or seizures from hypomagnesemia. Yesterday, patient had headache, hypertension and seizure. Clinicla picture that goes with PRES. However Neurolgy belives this is mainly due to hypomagnesemia. Will recheck level in am. Do not belive this is due to infection. -- CT scan of brain, CTA of head and neck are unremarkable. -- Hypomagnesemia likely playing a role. IV Mg given, continue oral supplement. -- Continue IV Ativan as needed for any seizure activity. -- Elevated Lactate may be result of seizure like activity, resolved today, -- Continue usual home medications. -- MRI of brain is negative for stroke (2) Elevated lactic acid level: Possibly secondary to seizure like activity. -- Resolved. (3) Febrile illness: Recently discharged from the hospital with Coag Neg Staph Septicemia, ? port infection. Has continued IV Vancomycin daily in our [facility] -- which is where she was going this morning when she developed seizure like activity. -- Blood cultures pending. -- will stop antibiotics except for vancomycin. Spent 35 minutes in management of patient. Anticipate discharge in am. Subjective Late input. Patient seen on 02/11/19 Patient is more awake and less drowsy. Patient has no complaints today. Discussed with nurse, patient has not had any seizures today. Constitutional: no sweats and no malaise Eyes: no blind spots Ear, Nose, Mouth, Throat: no ear trauma and no hyperacusis Respiratory: no dyspnea Cardiovascular: no dyspnea at rest Gastrointestinal: no abdominal pain and no early satiety Integumentary: no non-healing lesions Neurologic: no gait abnormality Psychiatric: no anhedonia and no change in sex drive Physical Exam 2 Vital Signs (Past 24 Hours): Last Vital Signs Temp 36.4 C L 02/11/19 21:12 Pulse 80 02/12/19 01:51 Resp 22 02/12/19 01:51 BP 121/75 02/11/19 21:12 Pulse Ox 96 02/12/19 01:51 Physical Exam: General: Patient is lying oon a bed. Patient is awake and oriented x3. HEENT: Head is atraumatic, normocephalic. EOMs intact without nystagmus. Sclerae anicteric. Facies symmetric. No perioral cyanosis. Neck: No JVD. Carotid upstrokes +2 bilaterally without obvious bruits. Chest and Lungs: clear. CVS: S1 and S2 are regular without obvious murmurs, gallops, or rubs. PMI is nondisplaced. No lifts, heaves, or thrills. No abdominal aortic or renal bruits. Abdominal Exam: Bowel sounds present. No masses, organomegaly, or tenderness. Extremities: No clubbing, cyanosis, or edema. Intact posterior tibial and radial pulses bilaterally. Neurologic Exam: normal strength. (1) Altered mental status Altered mental status type: unspecified Qualified Code(s): R41.82 - Altered mental status, unspecified
[2019-02-12] MEDS ORDERED: VANCOMYCIN CONSULT ACTIVE PRN (02:18)
[2019-02-12] MEDS ORDERED: VANCOMYCIN HCL 1,250 MG in SODIUM CHLORIDE 0.9% 500 ML IV SCH (02:30)
[2019-02-12 05:16] LABS: Basophils # (auto) 0.02 K/uL (0-0.2); Basophils % (auto) 0.4 %; Eosinophils # (auto) 0.07 K/uL (0-0.5); Eosinophils % (auto) 1.4 %; Hematocrit (blood only) 34.6 % (37-47); Hemoglobin 10.8 g/dL (12.0-16.0); Immature Granulocytes # (auto) 0.02 K/uL (0.00-0.02); Immature Granulocytes % (auto) 0.4 %; Lymphocytes # (auto) 1.06 K/uL (1.2-3.4); Lymphocytes % (auto) 21.7 %; Mean Corpuscular Hgb Conc 31.2 g/dL (32-36); Mean Corpuscular Volume 94.8 fL (80-100); Mean Platelet Volume 10.8 fL (7.4-10.4); Monocytes # (auto) 0.63 K/uL (0.11-0.59); Monocytes % (auto) 12.9 %; Neutrophils # (auto) 3.08 K/uL (1.4-6.5); Neutrophils % (auto) 63.2 %; Platelet Count 189 K/uL (130-400); RDW Coefficient of Variation 14.2 % (11.5-14.5); Red Blood Count 3.65 M/uL (4.2-5.4); White Blood Count 4.88 K/uL (4.8-10.8)
[2019-02-12 05:39] LABS: BUN Creatinine Ratio 12.7 (10-20); Calcium 7.8 mg/dl (8.5-10.1); Creatinine Clr Calc Pharmacy 88.2 ml/min; Est GFR (African American) 85.2; Est GFR (Non-African American) 73.5; Magnesium 1.7 mg/dl (1.8-2.4); Potassium 3.7 mmol/L (3.5-5.1)
[2019-02-12] MEDS: D5NSS + 20MEQ KCL 20 MEQ/1,000 ML BAG IV SCH (06:13)
[2019-02-12] MEDS: LEVOTHYROXINE SODIUM 125 MCG TABLET PO SCH (06:13)
[2019-02-12] MEDS ORDERED: CALCIUM GLUCONATE 10% 10 ML VIAL IV STA (07:51)
[2019-02-12] MEDS: PANTOprazole 40 MG TAB PO SCH (08:11)
[2019-02-12] MEDS: FLUCONAZOLE 100 MG TAB PO SCH (08:11)
[2019-02-12] MEDS: ASPIRIN 81 MG ECTAB PO SCH (08:11)
[2019-02-12] MEDS: MULTIVITAMIN TAB PO SCH (08:11)
[2019-02-12] MEDS: SUCRALFATE 1 GM TAB PO SCH ×4 (08:12→20:39)
[2019-02-12] MEDS: POTASSIUM CHLORIDE 20 MEQ TABCR PO SCH ×2 (08:12→20:43)
[2019-02-12] MEDS: VALACYCLOVIR HCL 500 MG TABLET PO SCH ×2 (08:12→20:39)
[2019-02-12] MEDS: APIXABAN 5 MG TABLET PO SCH ×2 (08:13→20:40)
[2019-02-12] MEDS: METOPROLOL TARTRATE 50 MG TAB PO SCH ×2 (08:13→20:40)
[2019-02-12] MEDS: NYSTATIN SUSP 500,000 U/5 ML UDC PO SCH ×4 (08:13→20:42)
[2019-02-12] MEDS: BECLOMETHASONE DIP HFA 80 MCG 8.7G INH INH SCH ×2 (08:16→20:42)
[2019-02-12] MEDS: MAGNESIUM OXIDE 400 MG TAB PO SCH ×2 (08:17→21:12)
[2019-02-12] MEDS: MAGNESIUM SULFATE / D5W 1 GM/100 ML BAG IV SCH ×3 (08:34→11:15)
[2019-02-12] MEDS ORDERED: CALCIUM GLUCONATE 10% 2,000 MG in 0.9 % SODIUM CHLORIDE 100 ML IV ONE (08:45)
--- NOTE | 2019-02-12 10:49 | Infectious Disease Consult ---
Date of Consultation February 12, 2019 Assessment & Plan (1) New onset seizure: continue vanco as previously planned, 14 days from first negative culture (01/31) History of Present Illness Attending Physician: Rikki Garay MD pt readmitted over weekend after having seizure, neuro following. pt states she is feeling much better today. no rodrigeuz, no f/c, no abd pain, no n/v/d, no cp, sob, cough. CTA head and neck negative, MRI showed PRES. CXR nml in ER. blood cultures obtained in Er, negative to date. remains on vanco for S[employer]IOR [employer]CH[employer]ICAL WR[employer] BSI - 3/4 cultures +, port remains in place, 01/31 cultures negative. Was to complete 14 day course of vanco via lock therapy at [facility]. toleraitng vanco well. wbc nml. family at bedside. Allergies Allergy/AdvReac Type Severity Reaction Status Date / Time thiopental Allergy Unknown INCREASED Verified 02/10/19 09:41 BLEEDING WITH WISDOM TEETH SURG meperidine AdvReac Mild N/V Verified 02/10/19 09:41 morphine AdvReac Mild N/V Verified 02/10/19 09:41 Home Medications Home Medications Medication Instructions Recorded Confirmed Type albuterol sulfate 2 puff INHALATION Q6 PRN 08/07/18 02/10/19 History apixaban 5 mg PO BID 08/07/18 02/10/19 History aspirin [Aspirin Childrens] 81 mg PO DAILY 08/07/18 02/10/19 History beclomethasone dipropionate 2 puff INHALATION BID 08/07/18 02/10/19 History cyanocobalamin (vitamin B-12) 1,000 mcg PO HS 08/07/18 02/10/19 History jultbgyulut-bzazqiymc-fmy C-Mn 1 cap PO BID 08/07/18 02/10/19 History [Glucosamine Chondroitin MaxStr] levothyroxine 125 mcg PO QAM 08/07/18 02/10/19 History multivitamin 1 tab PO DAILY 08/07/18 02/10/19 History ondansetron HCl 8 mg PO Q8 PRN 08/07/18 02/10/19 History sertraline 50 mg PO HS 08/07/18 02/10/19 History simvastatin 40 mg PO QPM 08/07/18 02/10/19 History ergocalciferol (vitamin D2) 50,000 unit PO DIRECTED 01/28/19 02/10/19 History [Vitamin D2] colestipol [Colestid] 1 g PO DAILY@1400 #30 tab 02/08/19 02/10/19 Rx fluconazole [Diflucan] 200 mg PO DAILY 5 Days #5 tab 02/08/19 02/10/19 Rx magnesium oxide 800 mg PO BID #120 tab 02/08/19 02/10/19 Rx metoprolol tartrate 75 mg PO BID #90 tab 02/08/19 02/10/19 Rx nystatin 5 ml PO ACHS 10 Days #200 ml 02/08/19 02/10/19 Rx potassium chloride 20 meq PO BID #60 tab 02/08/19 02/10/19 Rx ranitidine HCl 150 mg PO BID #60 tab 02/08/19 02/10/19 Rx sucralfate [Carafate] 1 gm PO ACHS 7 Days #28 tab 02/08/19 02/10/19 Rx valacyclovir [Valtrex] 500 mg PO BID 5 Days #10 tab 02/08/19 02/10/19 Rx vancomycin 1.25 gm IV DIRECTED #2 ea 02/08/19 02/10/19 Rx Patient History Medical History Febrile illness Essential hypertension (Chronic) Vomiting and diarrhea (Acute) HLD (hyperlipidemia) (Chronic) GERD (gastroesophageal reflux disease) (Chronic) Hypothyroid (Chronic) Encounter for chemotherapy management DVT (deep venous thrombosis) (Chronic) Colon cancer metastasized to lung (Chronic 09/18/08) "Adenocarcinoma of the colon with lung metastasis diagnosed in 2007 Status post right lobectomy 07/10/2008 Status post colonoscopy and biopsy 09/18/2008 revealing the colon lesion. Status post resection. This was followed by chemotherapy. Status post left upper lobe wedge resection 08/24/2011 due to metastasis Status post stereotactic radiation therapy in 2011 Completed chemotherapy in 2014 Status post wedge resection with Dr. navarrete 2015 Status post hypo-fractionated radiation therapy in 2015 PET/CT 08/24/2017 revealing metabolic activity of the right hilum. Status post completion of radiation therapy 10/24/2017 utilizing VMAT. PET/CT May 29, 2018 persistent uptake in the right paratracheal mass and suspicious changes for progression. Plan for systemic chemotherapy with irinotecan and Erbitux" On 11/02/17 11:11 Meaghan Alves wrote "Adenocarcinoma of the colon with lung metastasis diagnosed in 2007 Status post right lobectomy 07/10/2008 Status post colonoscopy and biopsy 09/18/2008 revealing the colon lesion. Status post resection. This was followed by chemotherapy. Status post left upper lobe wedge resection 08/24/2011 due to metastasis Status post stereotactic radiation therapy in 2011 Completed chemotherapy in 2014 Status post wedge resection with Dr. navarrete 2015 Status post hypo-fractionated radiation therapy in 2016 PET/CT 08/24/2017 revealing metabolic activity of the right hilum. Status post completion of radiation therapy 10/24/2017 utilizing VMAT." On 09/13/17 09:28 Meaghan Alves wrote "Adenocarcinoma of the colon with lung metastasis diagnosed in 2007 Status post right lobectomy 07/10/2008 Status post colonoscopy and biopsy 09/18/2008 revealing the colon lesion. Status post resection. This was followed by chemotherapy. Status post left upper lobe wedge resection 08/24/2011 due to metastasis Status post stereotactic radiation therapy in 2011 Completed chemotherapy in 2014 Status post wedge resection with Dr. navarrete 2015 Status post hypo-fractionated radiation therapy in 2016 PET/CT 08/24/2017 revealing metabolic activity of the right hilum." H/O: hysterectomy Pulmonary embolism (Resolved) HLD (hyperlipidemia) History of radiation therapy Hx of gallstones Neutropenia Surgical History History of colon surgery History of lung surgery History of tonsillectomy Family History Mother , early 80s of thyroid cancer Thyroid cancer Father , age 81 of gangrene complications No problems noted. 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 [employer] Feels Safe at Home: Yes Safety Concerns: Feels Safe At This Time Smoking Status: Never smoker Hx Alcohol Use: No Hx Substance Use: No Review of Systems all remaining ros reviewed and are negative Physical Exam Vital Signs (Past 24 Hours): Last Vital Signs Temp 36.4 C L 02/11/19 21:12 Pulse 84 02/12/19 07:19 Resp 16 02/12/19 07:19 BP 141/77 H 02/12/19 04:01 Pulse Ox 95 02/12/19 07:19 Constitutional: WD/WN, vitals as above Eyes: PERRL, conjunctivae normal, anicteric sclerae ENMT: external ear and nose normal, oropharynx normal Neck: normal visual inspection Respiratory: normal respiratory effort, lungs clear to auscultation Cardiovascular: RRR, no murmur, no edema Gastrointestinal (Abdomen): normal bowel sounds, soft, nontender, no hepatosplenomegaly Musculoskeletal: no cyanosis or clubbing, extremities motor strength 5/5 Skin: no rashes, warm and dry right chest wall port dressing intact, no surrounding warmth, tenderness, erythema, no bleeding or drainage Psychiatric: A+Ox3, euthymic affect Results & Data Laboratory Results Microbiology 02/10/19 09:01 Blood Blood Culture - Preliminary No growth to date. 02/10/19 08:35 Blood Blood Culture - Preliminary No growth to date.
[2019-02-12] MEDS ORDERED: VANCOMYCIN TROUGH ONE (11:30)
--- NOTE | 2019-02-12 12:49 | Pharmacy Report ---
Pharmacy Abx Dose Short Note - Date of Service February 12, 2019 - Assessment & Plan Assessment * 68 year old F receiving VANCOMYCIN 1250mg IV Q 12 hrs for treatment of CoN staph bacteremia in the setting of implanted A port * 1st set of negative BLCX's 01/31/19 * Per ID, recommended duration of tx = 14 days from 1st set of negative BLCX's (discontinue therapy after 02/14?) * BLCXs drawn this admission have also been negative * ROXANA present on admission has resolved (SCr 1.28 --> 0.74 -->0.83); Baseline SCr ~0.7 * VSS, oxygenating well on 2L NC Plan Vancomycin * Trough level of 21.9 mcg/mL is supratherapeutic. Prior doses hung mostly on time with the exception of the last dose being hung ~1 hr 11 min late. * Although the current dose produced therapeutic levels on past admission, it is possible that level is running higher today due to ROXANA present on admission a nd/or due to accumulation of drug with prolonged therapy. As a precaution will reduce dose to 1000mg IV Q 12 hrs. * Goal trough: 15 - 20mcg/mL for bacteremia * Will recheck trough level if therapy to continue beyond 02/14 Pharmacy will continue to follow and will adjust dose/frequency as necessary. Thank you.
[2019-02-12] MEDS: COLESTIPOL HCL 1 GM TAB PO SCH (13:31)
--- NOTE | 2019-02-12 13:54 | Hospitalist Progress Note ---
Date of Service February 12, 2019 Assessment & Plan (1) New onset seizure: Per history, she was traveling as a passenger to [facility] with her and just outside of the ER the patient's "eyes rolled back in her head, she was foaming at the mouth, was tense and shaking, and was unresponsive" according to her . This lasted for a total of about 15 minutes -- and shortly after receiving IV Ativan her symptoms resolved. MRI brain on 02/10 showed increased FLAIR signal in the posterior and occipital cortex, possibly compatible with PRES. She was seen by neurology who felt this was largely due to hypomagnesemia which was corrected with IV and PO replacement. - No further testing warranted per neurology. - On seizure precautions - No further seizure at this time (2) Febrile illness: Had temperature of 37.6 on admission. No positive cultures, and on vancomycin for bacteremia (see below). Possibly due to seizure. - Follow cultures (3) Elevated lactic acid level: Likely secondary to seizure like activity. - Resolved by 02/11 (4) Bacteremia: Recently discharged from the hospital with coag(-) Staph bacteremia and possible port infection. Has continued IV Vancomycin daily in [facility] which is where she was going this morning when she developed seizure like activity. Blood cultures from 02/10 have been no growth to date. - Seen by ID on 02/12 with plan to finish 14-day course of vancomycin from first negative blood culture (01/31). Plan to stop on 02/14 as per prior discharge. (5) Morbid obesity with BMI of 45.0-49.9, adult: No inpatient management. (6) Colon cancer metastasized to lung: Sees Dr. Ortiz as outpatient. Receives cetuximab (an anti-EGFR monoclonal antibody) as an outpatient with stable scans in 11/2018. - Follow up outpatient Subjective 68yo F w/ hx of metastatic colon cancer to lung who presents with seizure. Feeling well today. No major complaints overnight and slept well. No seizure. Reports no fevers/chills, chest pain, shortness of breath, abdominal pain, nausea, or vomiting. Physical Exam Vital Signs (Past 24 Hours): Last Vital Signs Temp 36.6 C 02/12/19 08:00 Pulse 101 H 02/12/19 08:00 Resp 17 02/12/19 08:00 BP 140/105 H 02/12/19 08:00 Pulse Ox 96 02/12/19 08:00 Constitutional: WD/WN, vitals as above Eyes: PERRL, conjunctivae normal, anicteric sclerae ENMT: external ear and nose normal, oropharynx normal Neck: normal visual inspection Respiratory: normal respiratory effort, lungs clear to auscultation Cardiovascular: RRR, no murmur, no edema Gastrointestinal (Abdomen): normal bowel sounds, soft, nontender, no hepatosplenomegaly Musculoskeletal: no cyanosis or clubbing, extremities motor strength 5/5 Skin: no rashes, warm and dry Psychiatric: A+Ox3, euthymic affect
[2019-02-12] MEDS ORDERED: VANCOMYCIN HCL 1,250 MG in SODIUM CHLORIDE 0.9% 250 ML IV SCH (14:00)
[2019-02-12] MEDS: VANCOMYCIN HCL 1,000 MG in SODIUM CHLORIDE 0.9% 250 ML IV SCH (16:30)
[2019-02-12] MEDS: CYANOCOBALAMIN 500 MCG TABLET (VITAMIN B-12) PO SCH (20:41)
[2019-02-12] MEDS: SIMVASTATIN 40 MG TAB PO SCH (20:41)
[2019-02-12] MEDS: SERTRALINE HCL 50 MG TABLET PO SCH (20:43)
[2019-02-13] MEDS: D5NSS + 20MEQ KCL 20 MEQ/1,000 ML BAG IV SCH ×2 (01:26→20:43)
[2019-02-13] MEDS: LEVALBUTEROL 1.25MG/0.5ML NEB INH SCH ×3 (02:01→13:49)
[2019-02-13] MEDS: IPRATROPIUM BROMIDE NEB SOLN 0.02% 2.5 ML VIAL INH SCH ×3 (02:01→13:49)
[2019-02-13] MEDS: VANCOMYCIN HCL 1,000 MG in SODIUM CHLORIDE 0.9% 250 ML IV SCH ×2 (03:54→16:25)
[2019-02-13] MEDS: LEVOTHYROXINE SODIUM 125 MCG TABLET PO SCH (06:24)
[2019-02-13 07:51] LABS: Calcium 8.3 mg/dl (8.5-10.1); Creatinine Clr Calc Pharmacy 87.4 ml/min; Est GFR (African American) 83.9; Est GFR (Non-African American) 72.4; Magnesium 1.4 mg/dl (1.8-2.4); Phosphorus 2.1 mg/dl (2.5-4.9); Potassium 4.2 mmol/L (3.5-5.1)
[2019-02-13] MEDS ORDERED: CALCIUM GLUCONATE 10% 1,000 MG in SODIUM CHLORIDE 0.9% 50 ML IV STA (08:15)
[2019-02-13] MEDS: VALACYCLOVIR HCL 500 MG TABLET PO SCH ×2 (08:55→20:44)
[2019-02-13] MEDS: SUCRALFATE 1 GM TAB PO SCH ×4 (08:55→20:44)
[2019-02-13] MEDS: NYSTATIN SUSP 500,000 U/5 ML UDC PO SCH ×4 (08:55→20:49)
[2019-02-13] MEDS: APIXABAN 5 MG TABLET PO SCH ×2 (08:55→20:45)
[2019-02-13] MEDS: MULTIVITAMIN TAB PO SCH (08:56)
[2019-02-13] MEDS: PANTOprazole 40 MG TAB PO SCH (08:56)
[2019-02-13] MEDS: MAGNESIUM OXIDE 400 MG TAB PO SCH ×2 (08:56→20:46)
[2019-02-13] MEDS: POTASSIUM CHLORIDE 20 MEQ TABCR PO SCH ×2 (08:56→20:45)
[2019-02-13] MEDS: ASPIRIN 81 MG ECTAB PO SCH (08:56)
[2019-02-13] MEDS: METOPROLOL TARTRATE 50 MG TAB PO SCH ×2 (08:56→20:47)
[2019-02-13] MEDS: FLUCONAZOLE 100 MG TAB PO SCH (08:56)
[2019-02-13] MEDS: BECLOMETHASONE DIP HFA 80 MCG 8.7G INH INH SCH ×2 (08:57→20:49)
[2019-02-13] MEDS: POT PHOSPHATE MONOBASIC W/ SOD TAB PO SCH ×4 (08:57→20:46)
[2019-02-13] MEDS: MAGNESIUM SULFATE / D5W 1 GM/100 ML BAG IV SCH ×4 (09:27→13:59)
--- NOTE | 2019-02-13 13:42 | Hospitalist Progress Note ---
Date of Service February 13, 2019 Assessment & Plan (1) Hypomagnesemia: Continued low Mg despite 2g IV on 02/10, 2g IV on 02/11, & 3g IV on 02/12. Her chemotherapy (cetuximab) is classic for causing Mg wasting, so this is not unexpected per oncology. - Replete Mg generously - Will discharge on Mg Plus Protein which may help keep her from getting diarrhea and improve absorption (2) New onset seizure: Per history, she was traveling as a passenger to [facility] with her and just outside of the ER the patient's "eyes rolled back in her head, she was foaming at the mouth, was tense and shaking, and was unresponsive" according to her . This lasted for a total of about 15 minutes -- and shortly after receiving IV Ativan her symptoms resolved. MRI brain on 02/10 showed increased FLAIR signal in the posterior and occipital cortex, possibly compatible with PRES. She was seen by neurology who felt the seizure was largely due to hypomagnesemia which was corrected with IV and PO replacement. Regarding PRES, the neurologist did not feel the clinical picture fit, and did not feel further treatment/work-up was necessary. - No further testing warranted per neurology. - On seizure precautions - No further seizures at this time (3) Febrile illness: Had temperature of 37.6 on admission. No positive cultures, and on vancomycin for bacteremia (see below). Possibly due to seizure. - Repeat blood cultures were negative (4) Elevated lactic acid level: Likely secondary to seizure like activity. - Resolved by 02/11 (5) Bacteremia: Recently discharged from the hospital with coag(-) Staph bacteremia and possible port infection. Has continued IV Vancomycin daily in our [facility] which is where she was going this morning when she developed seizure like activity. Blood cultures from 02/10 have been no growth to date. - Seen by ID on 02/12 with plan to finish 14-day course of vancomycin from first negative blood culture (01/31). Plan to stop on 02/14 as per prior discharge. (6) Morbid obesity with BMI of 45.0-49.9, adult: No inpatient management. (7) Colon cancer metastasized to lung: Sees Dr. Ortiz as outpatient. Receives cetuximab (an anti-EGFR monoclonal antibody) as an outpatient with stable scans in 11/2018. - Follow up outpatient - Will be seen on Tuesday for repeat Mg check and possible repletion (8) DVT prophylaxis: SCDs Subjective 68yo F w/ hx of metastatic colon cancer to lung who presents with seizure. Feeling well today, but disappointed about staying longer. No major complaints overnight and slept well. No seizure. Reports no fevers/chills, chest pain, shortness of breath, abdominal pain, nausea, or vomiting. Physical Exam Vital Signs (Past 24 Hours): Last Vital Signs Temp 36.7 C 02/13/19 12:48 Pulse 88 02/13/19 12:48 Resp 18 02/13/19 12:48 BP 137/83 02/13/19 12:48 Pulse Ox 95 02/13/19 12:48 Constitutional: WD/WN, vitals as above Eyes: PERRL, conjunctivae normal, anicteric sclerae ENMT: external ear and nose normal, oropharynx normal Neck: normal visual inspection Respiratory: normal respiratory effort, lungs clear to auscultation Cardiovascular: RRR, no murmur, no edema Gastrointestinal (Abdomen): normal bowel sounds, soft, nontender, no hepatosplenomegaly Musculoskeletal: no cyanosis or clubbing, extremities motor strength 5/5 Skin: no rashes, warm and dry Psychiatric: A+Ox3, euthymic affect
[2019-02-13] MEDS: COLESTIPOL HCL 1 GM TAB PO SCH (13:59)
[2019-02-13] MEDS: CYANOCOBALAMIN 500 MCG TABLET (VITAMIN B-12) PO SCH (20:44)
[2019-02-13] MEDS: SIMVASTATIN 40 MG TAB PO SCH (20:46)
[2019-02-13] MEDS: SERTRALINE HCL 50 MG TABLET PO SCH (20:49)
[2019-02-14] MEDS: VANCOMYCIN HCL 1,000 MG in SODIUM CHLORIDE 0.9% 250 ML IV SCH ×2 (04:03→13:07)
[2019-02-14] MEDS: LEVOTHYROXINE SODIUM 125 MCG TABLET PO SCH (06:10)
[2019-02-14 06:34] LABS: BUN Creatinine Ratio 8.2 (10-20); Calcium 7.7 mg/dl (8.5-10.1); Creatinine Clr Calc Pharmacy 88.9 ml/min; Est GFR (African American) 85.2; Est GFR (Non-African American) 73.5; Magnesium 1.4 mg/dl (1.8-2.4); Potassium 4.1 mmol/L (3.5-5.1)
[2019-02-14 06:38] LABS: Phosphorus 3.3 mg/dl (2.5-4.9)
[2019-02-14] MEDS: POTASSIUM CHLORIDE 20 MEQ TABCR PO SCH (07:48)
[2019-02-14] MEDS: MAGNESIUM OXIDE 400 MG TAB PO SCH (07:48)
[2019-02-14] MEDS: VALACYCLOVIR HCL 500 MG TABLET PO SCH (07:48)
[2019-02-14] MEDS: POT PHOSPHATE MONOBASIC W/ SOD TAB PO SCH ×2 (07:49→13:34)
[2019-02-14] MEDS: MULTIVITAMIN TAB PO SCH (07:49)
[2019-02-14] MEDS: SUCRALFATE 1 GM TAB PO SCH ×2 (07:49→11:25)
[2019-02-14] MEDS: PANTOprazole 40 MG TAB PO SCH (07:49)
[2019-02-14] MEDS: ASPIRIN 81 MG ECTAB PO SCH (07:50)
[2019-02-14] MEDS: FLUCONAZOLE 100 MG TAB PO SCH (07:50)
[2019-02-14] MEDS: NYSTATIN SUSP 500,000 U/5 ML UDC PO SCH ×2 (07:50→11:25)
[2019-02-14] MEDS: METOPROLOL TARTRATE 50 MG TAB PO SCH (07:51)
[2019-02-14] MEDS: BECLOMETHASONE DIP HFA 80 MCG 8.7G INH INH SCH (07:51)
[2019-02-14] MEDS: APIXABAN 5 MG TABLET PO SCH (07:51)
[2019-02-14] MEDS: D5NSS + 20MEQ KCL 20 MEQ/1,000 ML BAG IV SCH (07:56)
[2019-02-14] MEDS ORDERED: CALCIUM GLUCONATE 10% 10 ML VIAL IV STA (08:12)
[2019-02-14] MEDS ORDERED: CALCIUM GLUCONATE 10% 2,000 MG in SODIUM CHLORIDE 0.9% 50 ML IV ONE (09:00)
[2019-02-14] MEDS: MAGNESIUM SULFATE / D5W 1 GM/100 ML BAG IV SCH ×4 (09:24→12:34)
[2019-02-14 11:44] VITALS: PULSE 91; TEMP 97.7; O2SAT 97
[2019-02-14] MEDS: COLESTIPOL HCL 1 GM TAB PO SCH (13:34)
[2019-02-14 14:13] VITALS: BP 137/82
[2019-02-14] MEDS ORDERED: HEPARIN 100 UNIT/ML 5ML FLUSH ONE (15:11)
--- NOTE | 2019-02-14 17:52 | Discharge Summary ---
Date of Service February 14, 2019 Admission HPI Per Admitting Provider Mrs. Bee is a 68 year female with a history of Hypertension, Dyslipidemia, Metastatic Colon Cancer to Lung, DVT / Pulmonary Emboli, Chronic Diastolic CHF, and recent hospitalization for Septicemia (coag neg staph) that was discharged 2 days ago, but continued to receive IV Vancomycin in our [facility] on a daily basis. She was traveling as a passenger to [facility] with her this morning and just outside of the ER the patient's "eyes rolled back in her head, she was foaming at the mouth, was tense and shaking, and was unresponsive" according to her . This lasted for a total of about 15 minutes -- and shortly after receiving IV Ativan her symptoms resolved. She became more responsive but now is quite somnolent but arouses to verbal stimuli, and answers questions. She also has a fever. Initially a "stroke alert" was called but subsequent CT scan of the head, CTA of neck and head were negative. Patient is markedly hypomagnesemic, has an elevated lactate level at 6.5 mmol/liter, but procalcitonin level is WNL. EKG shows no acute changes, and initial cardiac enzymes are negative. Patient currently admits to being sleepy but denies any focal weakness, numbness, or tingling of her extremities. She denies any visual disturbances. She had a mild headache for the past couple of days -- but denies any headache currently. No chest pain, SOB, unusual LARSEN. Denies a stiff neck, nausea, vomiting, or diarrhea. Principal Diagnosis Seizure due to hypomagnesemia Discharge Exam Constitutional WD/WN, vitals as above Eyes PERRL, conjunctivae normal, anicteric sclerae ENMT external ear and nose normal, oropharynx normal Neck normal visual inspection Respiratory normal respiratory effort, lungs clear to auscultation Cardiovascular RRR, no murmur, no edema Gastrointestinal (Abdomen) normal bowel sounds, soft, nontender, no hepatosplenomegaly Musculoskeletal no cyanosis or clubbing, extremities motor strength 5/5 Skin no rashes, warm and dry Psychiatric A+Ox3, euthymic affect Discharge Data Allergies Allergy/AdvReac Type Severity Reaction Status Date / Time thiopental Allergy Unknown INCREASED Verified 02/10/19 09:41 BLEEDING WITH WISDOM TEETH SURG meperidine AdvReac Mild N/V Verified 02/10/19 09:41 morphine AdvReac Mild N/V Verified 02/10/19 09:41 Consultations 02/10/19 09:04 ED Decision to Admit Stat 02/10/19 10:00 Consult Infectious Diseases Routine 02/10/19 14:35 Consult Neurology Routine Ordered Studies 02/10/19 08:10 CT head/brain wo con Stat 02/10/19 08:26 CT angio head w con Stat CT angio neck with con Stat 02/10/19 11:46 MR brain seizure wo/w con Routine Hospital Course (1) Hypomagnesemia: Continued low Mg despite total of 15g given IV. Her chemotherapy (cetuximab) is classic for causing Mg wasting, so this is not unexpected per oncology. - Repleted Mg generously - Will discharge on Mg Plus Protein (chelated magnesium) which may help keep her from getting diarrhea and improve absorption - Arranged for home IV magnesium (2g IV 3x/wk) to also help keep her magnesium level up. (2) New onset seizure: Per history, she was traveling as a passenger to [facility] with her and just outside of the ER the patient's "eyes rolled back in her head, she was foaming at the mouth, was tense and shaking, and was unresponsive" according to her . This lasted for a total of about 15 minutes -- and shortly after receiving IV Ativan her symptoms resolved. MRI brain on 02/10 showed increased FLAIR signal in the posterior and occipital cortex, possibly compatible with PRES. She was seen by neurology who felt the seizure was largely due to hypomagnesemia which was corrected with IV and PO replacement. Regarding PRES, the neurologist did not feel the clinical picture fit, and did not feel further treatment/work-up was necessary. - No further testing warranted per neurology. - No further seizures while inpatient (3) Febrile illness: Had temperature of 37.6 on admission. No positive cultures, and on vancomycin for bacteremia (see below). Possibly due to seizure. - Repeat blood cultures were negative (4) Elevated lactic acid level: Likely secondary to seizure like activity. - Resolved by 02/11 (5) Bacteremia: Recently discharged from the hospital with coag(-) Staph bacteremia and possible port infection. Has continued IV Vancomycin daily in our [facility] which is where she was going this morning when she developed seizure like activity. Blood cultures from 02/10 have been no growth to date. - Seen by ID on 02/12 with plan to finish 14-day course of vancomycin from first negative blood culture (01/31). Finished IV vancomycin on 02/14 prior to discharge. (6) Morbid obesity with BMI of 45.0-49.9, adult: No inpatient management. (7) Colon cancer metastasized to lung: Sees Dr. Ortiz as outpatient. Receives cetuximab (an anti-EGFR monoclonal antibody) as an outpatient with stable scans in 11/2018. - Follow up outpatient - Will be seen on Tuesday for repeat Mg check and possible repletion Total Time Total Time Spent Total Time Spent (In Minutes): 45 Total Time Includes: Examination of the Patient, Discharge Planning, Medication Reconciliation and Communication With Other Providers Discharge Plan Discharge Items Patient Disposition: Home - Self-Care Reason For Visit: STROKE SYMPTOMS Discharge Diagnosis: Seizure, low magnesium Discharge Goals: Decrease discomfort, Improve function and Improve nutritional status Activity: Resume your previous activity Driving/Machine Use Comment: No driving until after seen by Dr. Ortiz and your potassium is re-check Non-emergency contact: Primary Care Provider and Oncologist Call non-emergency contact if: you have any medication questions, your symptoms worsen and your temperature is above 100.5 Follow-up/Referrals: Raimundo Garcia MD [Primary Care Provider] - 02/26/19 2:30 pm (Please, follow up with Dr. Garcia on TuesdayFebruary 26 at 2:30 pm. *If you need to change this appointment, call the office at [phone].) Franklin Ortiz [Physician] - 02/16/19 8:00 am ([facility] 8[facility] am. If you have any questions, call the office at [phone].) Diet: Regular Addtl Provider Instructions: Ms. Bee, You were admitted to the hospital with a seizure that was caused by low magnesium levels. The chemotherapy you are on (cetuximab) is well known to cause low magnesium. You are on a supplement for it, but pill supplements (oral supplements) do not deliver magnesium very effectively, so it is hard to get enough just by taking oral pills. We gave you over 15 bags of magnesium in the hospital, and your level is still in the low-normal range. We will have you see Dr. Ortiz on Tuesday to get a magnesium re-check and possibly get more magnesium through your port. Please start a magnesium supplement called "Mg Plus Protein" which delivers magnesium in a way that allows the intestines to absorb it best. It can be found on [employer] or www.[employer].com. It is about $7.50 per 100 tablets, and you should take 1 tablet with each meal (3 per day). This is also called "chelated magnesium" and may be found in health food stores. [employer] on [address] in [place] has this product. Please return to the hospital with any headache, confusion, seizure, or other concerning symptoms. Prescriptions: Continued apixaban 5 mg tablet 5 mg PO BID RF: 0 ondansetron HCl 8 mg tablet 8 mg PO Q8 PRN (Reason: Nausea And Vomiting) RF: 0 sertraline 50 mg tablet 50 mg PO HS RF: 0 simvastatin 40 mg tablet 40 mg PO QPM RF: 0 aspirin [Aspirin Childrens] 81 mg Tablet,Chewable 81 mg PO DAILY RF: 0 beclomethasone dipropionate 80 mcg/actuation HFA aerosol breath activated 2 puff Inhalation BID RF: 0 multivitamin Tablet 1 tab PO DAILY RF: 0 albuterol sulfate 90 mcg/actuation HFA aerosol inhaler 2 puff Inhalation Q6 PRN (Reason: Shortness Of Breath Or Wheezing) RF: 0 prklhzmozsd-efeogfxrz-aij C-Mn [Glucosamine Chondroitin MaxStr] 500-400 mg Capsule 1 cap PO BID RF: 0 levothyroxine 125 mcg Capsule 125 mcg PO QAM RF: 0 cyanocobalamin (vitamin B-12) 1,000 mcg Capsule 1,000 mcg PO HS RF: 0 ergocalciferol (vitamin D2) [Vitamin D2] 50,000 unit Capsule 50,000 unit PO DIRECTED RF: 0 ranitidine HCl 150 mg Tablet 150 mg PO BID Qty: 60 RF: 2 colestipol [Colestid] 1 gram Tablet 1 g PO DAILY@1400 Qty: 30 RF: 1 potassium chloride 20 mEq tablet,ER particles/crystals 20 meq PO BID Qty: 60 RF: 1 metoprolol tartrate 50 mg tablet 75 mg PO BID Qty: 90 RF: 2 nystatin 100,000 unit/mL suspension 5 ml PO ACHS 10 Days Qty: 200 RF: 0 sucralfate [Carafate] 1 gram tablet 1 gm PO ACHS 7 Days Qty: 28 RF: 0 Discontinued magnesium oxide 400 mg (241.3 mg magnesium) Tablet 800 mg PO BID Qty: 120 RF: 2 vancomycin 1.25 gram recon soln 1.25 gm IV DIRECTED Qty: 2 RF: 0 Stand-Alone Forms: [facility] Discharge Orders: Discharge Order (Routine); Ordered 02/14/19 Ordered By: Rikki Garay Admission Data Admit Date/Time: 02/10/19 10:48 Attending Provider: Rikki Garay Admit Provider: Joshua Callaway Primary Care Provider: Raimundo Garcia Other Providers: Oumar Lofton ; Willis Grossman ; Marilee Dodd ; Jef Martinez III ; Rikki Garay Service: Telemetry Other Interventions: Discharge Summary Assessment (RN) Last Done: 02/14/19 14:12 DC Date/Time DO NOT enter until pt leaves facility: 02/14/19 15:27
== END 2019-02-14 15:27 | disposition home or self-care (01) | DRG 640 ==
LOC: ED 08:07 → 1E 10:48 → SUATTDRO 10:48 → 1E 10:53 → 2S 02-12 16:45

== ENCOUNTER 2019-11-02 12:13 | Inpatient (IN) ==
[2019-11-02] MEDS ORDERED: SODIUM CHLORIDE 0.9% 1000ML 2,000 ML IV ONE (13:36)
[2019-11-02 14:21] LABS: Hematocrit (blood only) 28.1 % (37-47); Mean Corpuscular Hemoglobin 32.6 pg (25-34); Mean Corpuscular Volume 101.8 fL (80-100); Nucleated RBC # (auto) 0.03 K/uL (0-0); Nucleated RBC % (auto) 2.7 %; RDW Coefficient of Variation 14.9 % (11.5-14.5); RDW Standard Deviation 54.4 fL (36.4-46.3); Red Blood Count 2.76 M/uL (4.2-5.4); White Blood Count 1.23 K/uL (4.8-10.8)
--- NOTE | 2019-11-02 14:24 | XRay Report ---
XR chest 1V portable CLINICAL HISTORY: Sepsis dyspnea COMPARISON STUDY: 06/26/2019 FINDINGS: Central catheter unchanged in position within the right atrium. Chronic elevation right hem idiaphragm. Stable consolidative/masslike change right hilum. Left lung is clear. IMPRESSION: Chronic and pre-existing change. No acute or superimposed infiltrative process. The above report was generated using voice recognition software. It may contain grammatical, syntax or spelling errors. Electronically signed by: Michael Bhat M.D. 11/02/2019 2:22 PM
[2019-11-02 14:39] LABS: INR 1.1 (0.9-1.1); Partial Thromboplastin Ratio 1.3; Partial Thromboplastin Time 33.9 Seconds (21.0-31.0)
[2019-11-02 14:45] LABS: Albumin Level 3.1 gm/dl (3.4-5.0); BUN Creatinine Ratio 12.7 (10-20); Calcium 8.5 mg/dl (8.5-10.1); Creatinine Clr Calc Pharmacy 68.6 ml/min; Est GFR (African American) 63.6; Est GFR (Non-African American) 54.9; Potassium 3.8 mmol/L (3.5-5.1)
[2019-11-02 14:47] LABS: Albumin Globulin Ratio 0.9 (0.9-2); Bilirubin,Total 0.4 mg/dl (0.2-1); Globulin 3.4 gm/dl (2.5-4.0); Total Protein 6.5 gm/dl (6.4-8.2)
[2019-11-02 14:57] LABS: Mean Platelet Volume 10.3 fL (7.4-10.4); Platelet Count 93 K/uL (130-400)
[2019-11-02 15:03] LABS: Basophils # (auto) 0.01 K/uL (0-0.2); Basophils % (auto) 0.8 %; Eosinophils # (auto) 0.03 K/uL (0-0.5); Eosinophils % (auto) 2.4 %; Lymphocytes # (auto) 0.89 K/uL (1.2-3.4); Lymphocytes % (auto) 72.4 %; Monocytes % (auto) 24.4 %; Platelet Estimate Decreased (Normal)
[2019-11-02] MEDS ORDERED: CEFEPIME 2,000 MG/20 ML VIAL IV STA (15:03)
--- NOTE | 2019-11-02 16:45 | History & Physical Report ---
Date of Service November 02, 2019 Assessment & Plan (1) Neutropenic fever: ANC=0 r/o bacteremia and other potential life threatening infections IV Vanco and Cefepime follow cultures (BC and UC) check nasal MRSA swab give Neupogen consult Oncology Present on Admission?: Yes (2) Colon cancer metastasized to lung: see problem #1 Neutropenic fever (3) Antineoplastic chemotherapy induced pancytopenia: see under problem #1 Neutropenic fever Present on Admission?: Yes (4) Acute sinus infection: being treated with IV Vanco and Cefepime for neutropenic fever monitor symptoms Present on Admission?: Yes (5) Thrombocytopenia: stable wo active bleeding monitor closely Present on Admission?: Yes (6) Anemia: chronic. monitor closely Present on Admission?: Yes (7) Sleep apnea: would benefit from terminologist weight loss CPAP qhs but pt cannot report the settings 02 2L NC qhs Present on Admission?: Yes (8) Morbid obesity with BMI of 45.0-49.9, adult: would benefit from detention weight loss Present on Admission?: Yes (9) Radiation pneumonitis: (10) half-way current use of anticoagulant: (11) Hypercoagulable state, secondary: DVT, PE in 2014 indefinitely apixaban Present on Admission?: Yes (12) Essential hypertension: controlled cont BB Present on Admission?: Yes (13) HLD (hyperlipidemia): continue statin Present on Admission?: Yes (14) GERD (gastroesophageal reflux disease): cont PPI Present on Admission?: Yes (15) History of immunocompromised state: see problem #1 neutropenic fever Present on Admission?: Yes (16) Port-A-Cath in place: no signs or symptoms of current infection Present on Admission?: Yes (17) Chronic respiratory failure with hypoxia: on chronic home 02 2L qhs Present on Admission?: Yes (18) Depression: cont SSRI Present on Admission?: Yes (19) Hypothyroid: cont LT4. check TSH Present on Admission?: Yes (20) Hypomagnesemia: cont oral Mg. previously severe hypomagnesemia and related seizures MISCELLANEOUS: this pt's expected LOS is 2+ MN to r/o bacteremia and serious infection Present on Admission?: Yes History of Present Illness Chief Complaint: fever and fatigue Primary Care Provider: Bacilio Garcia MD this 69yo WF with metastatic colon cancer on chemotherapy (Folfox and 5FU 3 wks ago) has had issues with neutropenia. today had new fever 101.0 persistent most of the day. has not been receivig Neupogen. 2d of R maxillary sinus pain, tenderness w/ mild-mod headache. had some mild epistaxis over the past week but as advised, used saline spray and then afrin nasal spray and that has resolved. + generalized fatigue moderate. no cough, sore throat, SOB (more than baseline). No GI sxs or sxs. No sick contacts. Allergies Allergy/AdvReac Type Severity Reaction Status Date / Time thiopental Allergy Unknown INCREASED Verified 11/02/19 15:18 BLEEDING WITH WISDOM TEETH SURG meperidine AdvReac Mild N/V Verified 11/02/19 15:18 morphine AdvReac Mild N/V Verified 11/02/19 15:18 Home Medications Home Medications Medication Instructions Recorded Confirmed Type albuterol sulfate 2 puff INHALATION Q6 PRN 08/07/18 11/02/19 History apixaban 5 mg PO BID 08/07/18 11/02/19 History [id number] C-Mn 1 cap PO BID 08/07/18 11/02/19 History [Glucosamine Chondroitin MaxStr] multivitamin 1 tab PO QAM 08/07/18 11/02/19 History sertraline 50 mg PO HS 08/07/18 11/02/19 History simvastatin 40 mg PO QPM 08/07/18 11/02/19 History metoprolol tartrate 75 mg PO BID #90 tab 02/08/19 11/02/19 Rx Oxygen Home #1 ea 06/05/19 10/29/19 History magnesium oxide 400 mg (as 800 mg PO BID cap 06/05/19 11/02/19 History magnesium oxide) capsule beclomethasone dipropionate 80 2 puffs INHALATION BID #1 gm 10/08/19 11/02/19 Rx mcg/actuation HFA breath activated aerosol potassium chloride 20 mEq 20 meq PO BID #60 tab 10/08/19 11/02/19 Rx tablet,extended release(part/cryst) loperamide 2 mg tablet 2 mg PO QAM tab 10/29/19 11/02/19 History Folfox Chemotherapy 1 applic IV UD 11/02/19 11/02/19 History ascorbic acid (vitamin C) [Vitamin 500 mg PO BID 11/02/19 11/02/19 History C] aspirin 81 mg PO HS 11/02/19 11/02/19 History cholecalciferol (vitamin D3) 1,000 unit PO QAM 11/02/19 11/02/19 History [Vitamin D3] colestipol [Colestid] 1 g PO QDD 11/02/19 11/02/19 History levothyroxine 137 mcg PO QAM 11/02/19 11/02/19 History omeprazole 40 mg PO QAM 11/02/19 11/02/19 History Past Med/Surg History Medical History Bacteremia (Resolved) Bilateral pulmonary embolism (Resolved) Candidiasis of intestine (Resolved) Colon cancer metastasized to lung (Chronic 09/18/08) "Adenocarcinoma of the colon with lung metastasis diagnosed in 2007 Status post right lobectomy 07/10/2008 Status post colonoscopy and biopsy 09/18/2008 revealing the colon lesion. Status post resection. This was followed by chemotherapy. Status post left upper lobe wedge resection 08/24/2011 due to metastasis Status post stereotactic radiation therapy in 2011 Completed chemotherapy in 2014 Status post wedge resection with Dr. navarrtee 2015 Status post hypo-fractionated radiation therapy in 2015 PET/CT 08/24/2017 revealing metabolic activity of the right hilum. Status post completion of radiation therapy 10/24/2017 utilizing VMAT. PET/CT May 29, 2018 persistent uptake in the right paratracheal mass and suspicious changes for progression. Plan for systemic chemotherapy with irinotecan and Erbitux" On 11/02/17 11:11 Meaghan Alves wrote "Adenocarcinoma of the colon with lung metastasis diagnosed in 2007 Status post right lobectomy 07/10/2008 Status post colonoscopy and biopsy 09/18/2008 revealing the colon lesion. Status post resection. This was followed by chemotherapy. Status post left upper lobe wedge resection 08/24/2011 due to metastasis Status post stereotactic radiation therapy in 2011 Completed chemotherapy in 2014 Status post wedge resection with Dr. navarrete 2016 Status post hypo-fractionated radiation therapy in 2015 PET/CT 08/24/2017 revealing metabolic activity of the right hilum. Status post completion of radiation therapy 10/24/2017 utilizing VMAT." On 09/13/17 09:28 Meaghan Alves wrote "Adenocarcinoma of the colon with lung metastasis diagnosed in 2007 Status post right lobectomy 07/10/2008 Status post colonoscopy and biopsy 09/18/2008 revealing the colon lesion. Status post resection. This was followed by chemotherapy. Status post left upper lobe wedge resection 08/24/2011 due to metastasis Status post stereotactic radiation therapy in 2011 Completed chemotherapy in 2014 Status post wedge resection with Dr. navarrete 2015 Status post hypo-fractionated radiation therapy in 2015 PET/CT 08/24/2017 revealing metabolic activity of the right hilum." Diverticulosis of colon (Chronic) DVT (deep venous thrombosis) (Resolved) DVT, lower extremity (Resolved) Elevated lactic acid level (Resolved) Encounter for chemotherapy management Genital herpes (Resolved) History of chemotherapy (Chronic) History of pulmonary embolus (PE) (Chronic) History of radiation therapy HLD (hyperlipidemia) Hx of gallstones Hypophosphatemia (Resolved) Infection due to Port-A-Cath (Resolved) Neutropenia New onset seizure (Resolved) Pulmonary embolism (Resolved) Radiation pneumonitis (Resolved) Seizures due to metabolic disorder (Resolved) Septicemia due to coagulase-negative staphylococcal infection (Resolved) SIRS (systemic inflammatory response syndrome) (Resolved) Surgical History H/O: hysterectomy History of colon surgery History of lung surgery History of tonsillectomy Family History Mother , early 80s of thyroid cancer Thyroid cancer Father , age 81 of gangrene complications No problems noted. 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 drives. Review of Systems Constitutional: + fever, + body aches, + fatigue and + weakness Ear, Nose, Mouth, Throat: + nasal congestion, + nasal discharge, + post nasal drip, + epistaxis, + facial pain and + sinus pain/pressure; no ear pain, no dizziness and no sore throat Respiratory: no cough, no chest congestion, no dyspnea, no sputum production and no wheezing Cardiovascular: no chest pain, no chest pain with activity, no dyspnea at rest, no palpitations and no syncope Gastrointestinal: no abdominal pain, no nausea, no vomiting, no change in bowel habits, no change in stools, no constipation, no diarrhea/loose stools, no blood in stools and no melena Genitourinary: no dysuria, no difficulty urinating, no urinary frequency, no urinary hesitancy and no urinary urgency Musculoskeletal: no deformity, no muscle weakness and no body aches Integumentary: no rash and no erythema Neurologic: + headache(s); no gait abnormality, no numbness, no radiating pain, no seizure-like activity and no syncope Psychiatric: no depression, no homicidal ideation, no anxiety, no confusion and no hallucinations Hematologic / Lymphatic: no easy bleeding Physical Exam Constitutional: well developed and + morbidly obese; not in distress Eyes: EOM intact bilaterally; no conjunctival abnormality, no scleral abnormality and + no PERRL ENMT: Nose: + sinus tenderness and + facial tenderness (tender moderately over R maxillary sinus) Mouth: no oropharynx abnormality, no oral mucosal abnormality, TMJ nontender and no malodorous breath Respiratory: normal respiratory effort, lungs clear to auscultation normal respiratory effort and symmetric chest movement; no respiratory distress, does not use accessory muscles, no cough and no audible wheezes Auscultation: + breath sounds absent (in R lung base half way up); no crackles, no rales, no rhonchi and no wheezes Cardiovascular: Rate/Rhythm: regular rate and regular rhythm Heart Sounds: normal S1 and normal S2; no gallop, no murmur and no cardiac rub Vessels: no carotid bruit Extremities: + vascular access device (R upper chest with port a cath. no redness, swelling, tenderness, discharg); no pedal edema Chest (Breasts): Chest: normal inspection of chest Gastrointestinal (Abdomen): Inspection/Auscultation: abdomen normal to inspection and normal bowel sounds Percussion/Palpation: abdomen soft; abdomen nontender, no guarding, abdomen not rigid and no abdominal mass Musculoskeletal: Extremities: extremities normal to inspection and + limited ROM of upper extremity (chronic R shoulder limitation ) Right Skin: normal turgor; no rashes and no jaundice Neurologic: moves all extremities and awake; not confused and not obtunded Speech / Cognition: normal speech and no expressive aphasia Motor/Sensory: no tremor and normal movement Cranial Nerves: PERRL Coordination: + abnormal [id number] test Psychiatric: Orientation: alert and oriented x 3 Apperance: appropriately dressed and appropriately groomed Eye Contact: good eye contact Motor Behavior: no abnormal motor movements Speech: normal rate/rhythm/volume of speech Affect: euthymic affect Lymphatic: no cervical lymphadenopathy Results & Data Vital Signs (Past 12 Hours) Vital Signs Temp Pulse Pulse Resp BP BP Pulse Ox 11/02/19 15:26 37.2 C 112 H 20 139/77 98 11/02/19 14:13 96 11/02/19 13:35 94 H 20 113/85 96 11/02/19 12:33 37.1 C 95 H 18 129/67 97 Laboratory Results WBC=1.23 hgb=9.0 (OGE=620.8) plt=93 ANC=0 INR=1.1 creat=1.05 BUN=13 EI=478 lactate=1.1 LFTs neg influenza neg creat=1.05 BUN=13 XP=181 Diagnostic Findings CXR=Chronic and pre-existing change. No acute or superimposed infiltrative process. Elev R diaphr. RUL opacity (images independently reviewed) ECG Additional Comments: EKG: sinus 98. normal (images independently reviewed) Code Status & VTE Plan Code Status full VTE Prophylaxis Plan VTE Prophylaxis will be ordered: Yes PG Care Time/CCT Total # of Minutes Spent Total Time Spent with Patient: Total time spent is greater than 50% in coordination of care (as documented) at patient's floor/unit and/or counseling patient: (1) Anemia Anemia type: unspecified type Qualified Code(s): D64.9 - Anemia, unspecified (2) HLD (hyperlipidemia) Hyperlipidemia type: mixed hyperlipidemia Qualified Code(s): E78.2 - Mixed hyperlipidemia (3) Hypothyroid Hypothyroidism type: acquired Qualified Code(s): E03.9 - Hypothyroidism, unspecified (4) GERD (gastroesophageal reflux disease) Esophagitis presence: esophagitis presence not specified Qualified Code(s): K21.9 - Gastro-esophageal reflux disease without esophagitis
[2019-11-02] MEDS ORDERED: VANCOMYCIN CONSULT ACTIVE PRN (17:15)
[2019-11-02] MEDS ORDERED: FILGRASTIM 300 MCG/ML VIAL SQ ONE (17:20)
[2019-11-02] MEDS ORDERED: VANCOMYCIN HCL 2,500 MG in SODIUM CHLORIDE 0.9% 500 ML IV ONE (18:00)
--- NOTE | 2019-11-02 18:39 | Emergency Department Note ---
Entered by Bree Lindo acting as a scribe for Alex Fernando DO History of Present Illness General Chief complaint: Fever Stated complaint: FEVER Source: patient History of Present Illness Onset (ago): hour(s) (this morning ) Location: head (general) Pain Consistency: + other (episode) Maximum Pain Intensity: 4 Quality: + other (fever) Associated symptoms: + cough and + other (positive congestion; positive sinus pressure; negative sore throat; negative ear pain; negative urinary symptoms) The patient is a 69 year old female with PMHx of GERD, PE, CHF, HLD, hypothyroidism, DVT, and colon cancer who presents to the Emergency Room with complaints of an episode of a fever that began this morning. The patient states that her temperature was 101 degrees this morning. The patient reports that she has a cough that began yesterday, and states that she has had some congestion and sinus pressure recently. The patient denies any new sore throat, ear pain, and urinary symptoms. The patient states that she is on chemotherapy and radiation for stage 4 colon cancer. She states that her last dose of chemotherapy was 3 weeks ago and was a 3 day infusion. Home Medications Home Medications Medication Instructions Recorded Confirmed Type albuterol sulfate 2 puff INHALATION Q6 PRN 08/07/18 11/02/19 History apixaban 5 mg PO BID 08/07/18 11/02/19 History aqjtvhgmnec-avwvtwfwe-lyf C-Mn 1 cap PO BID 08/07/18 11/02/19 History [Glucosamine Chondroitin MaxStr] multivitamin 1 tab PO QAM 08/07/18 11/02/19 History sertraline 50 mg PO HS 08/07/18 11/02/19 History simvastatin 40 mg PO QPM 08/07/18 11/02/19 History metoprolol tartrate 75 mg PO BID #90 tab 02/08/19 11/02/19 Rx Oxygen Home #1 ea 06/05/19 10/29/19 History magnesium oxide 400 mg (as 800 mg PO BID cap 06/05/19 11/02/19 History magnesium oxide) capsule beclomethasone dipropionate 80 2 puffs INHALATION BID #1 gm 10/08/19 11/02/19 Rx mcg/actuation HFA breath activated aerosol potassium chloride 20 mEq 20 meq PO BID #60 tab 10/08/19 11/02/19 Rx tablet,extended release(part/cryst) loperamide 2 mg tablet 2 mg PO QAM tab 10/29/19 11/02/19 History Folfox Chemotherapy 1 applic IV UD 11/02/19 11/02/19 History ascorbic acid (vitamin C) [Vitamin 500 mg PO BID 11/02/19 11/02/19 History C] aspirin 81 mg PO HS 11/02/19 11/02/19 History cholecalciferol (vitamin D3) 1,000 unit PO QAM 11/02/19 11/02/19 History [Vitamin D3] colestipol [Colestid] 1 g PO QDD 11/02/19 11/02/19 History levothyroxine 137 mcg PO QAM 11/02/19 11/02/19 History omeprazole 40 mg PO QAM 11/02/19 11/02/19 History Allergies Allergy/AdvReac Type Severity Reaction Status Date / Time thiopental Allergy Unknown INCREASED Verified 11/02/19 15:18 BLEEDING WITH WISDOM TEETH SURG meperidine AdvReac Mild N/V Verified 11/02/19 15:18 morphine AdvReac Mild N/V Verified 11/02/19 15:18 Past Med/Surg History Medical History Bacteremia (Resolved) Bilateral pulmonary embolism (Resolved) Candidiasis of intestine (Resolved) Colon cancer metastasized to lung (Chronic 09/18/08) "Adenocarcinoma of the colon with lung metastasis diagnosed in 2007 Status post right lobectomy 07/10/2008 Status post colonoscopy and biopsy 09/18/2008 revealing the colon lesion. Status post resection. This was followed by chemotherapy. Status post left upper lobe wedge resection 08/24/2011 due to metastasis Status post stereotactic radiation therapy in 2011 Completed chemotherapy in 2014 Status post wedge resection with Dr. navarrete 2015 Status post hypo-fractionated radiation therapy in 2015 PET/CT 08/24/2017 revealing metabolic activity of the right hilum. Status post completion of radiation therapy 10/24/2017 utilizing VMAT. PET/CT May 29, 2018 persistent uptake in the right paratracheal mass and suspicious changes for progression. Plan for systemic chemotherapy with irinotecan and Erbitux" On 11/02/17 11:11 Meaghan Alves wrote "Adenocarcinoma of the colon with lung metastasis diagnosed in 2007 Status post right lobectomy 07/10/2008 Status post colonoscopy and biopsy 09/18/2008 revealing the colon lesion. Status post resection. This was followed by chemotherapy. Status post left upper lobe wedge resection 08/24/2011 due to metastasis Status post stereotactic radiation therapy in 2011 Completed chemotherapy in 2014 Status post wedge resection with Dr. navarrete 2015 Status post hypo-fractionated radiation therapy in 2015 PET/CT 08/24/2017 revealing metabolic activity of the right hilum. Status post completion of radiation therapy 10/24/2017 utilizing VMAT." On 09/13/17 09:28 Meaghan Alves wrote "Adenocarcinoma of the colon with lung metastasis diagnosed in 2007 Status post right lobectomy 07/10/2008 Status post colonoscopy and biopsy 09/18/2008 revealing the colon lesion. Status post resection. This was followed by chemotherapy. Status post left upper lobe wedge resection 08/24/2011 due to metastasis Status post stereotactic radiation therapy in 2011 Completed chemotherapy in 2014 Status post wedge resection with Dr. navarrete 2015 Status post hypo-fractionated radiation therapy in 2015 PET/CT 08/24/2017 revealing metabolic activity of the right hilum." Diverticulosis of colon (Chronic) DVT (deep venous thrombosis) (Resolved) DVT, lower extremity (Resolved) Elevated lactic acid level (Resolved) Encounter for chemotherapy management Genital herpes (Resolved) History of chemotherapy (Chronic) History of pulmonary embolus (PE) (Chronic) History of radiation therapy HLD (hyperlipidemia) Hx of gallstones Hypophosphatemia (Resolved) Infection due to Port-A-Cath (Resolved) Neutropenia New onset seizure (Resolved) Pulmonary embolism (Resolved) Radiation pneumonitis (Resolved) Seizures due to metabolic disorder (Resolved) Septicemia due to coagulase-negative staphylococcal infection (Resolved) SIRS (systemic inflammatory response syndrome) (Resolved) Surgical History H/O: hysterectomy History of colon surgery History of lung surgery History of tonsillectomy Family History Mother , early 80s of thyroid cancer Thyroid cancer Father , age 81 of gangrene complications No problems noted. 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 drives. Review of Systems See HPI for pertinent positives & negatives. and A total of 10 systems reviewed and were otherwise negative Physical Exam Vital Signs Vital Signs - 24 hr 11/02/19 12:33 11/02/19 13:35 11/02/19 14:13 Temperature 37.1 C Temperature Source Oral Pulse Rate 95 H Pulse Rate [Apical] 94 H Pulse Rhythm [Apical] Regular Pulse Strength [Apical] Normal Respiratory Rate 18 20 Respiratory Effort / Characteristics Non-Labored Spontaneous Non-Labored Spontaneous Respiratory Depth Normal Normal Respiratory Pattern Regular Regular Blood Pressure 129/67 Blood Pressure [Right Arm] 113/85 Blood Pressure Mean 87 Blood Pressure Mean [Right Arm] 94 Blood Pressure Position Sitting Blood Pressure Position [Right Arm] Sitting Pulse Oximetry 97 96 96 Oxygen Delivery Method Room Air Room Air Room Air Sepsis Recent Fever Within 48 Hours No Sepsis New/Unexplained Change in Mental Status No Sepsis Action Taken by Nursing No Action Required 11/02/19 15:26 11/02/19 18:11 Temperature 37.2 C 37.4 C Temperature Source Oral Oral Pulse Rate Pulse Rate [Apical] 112 H 98 H Pulse Rhythm [Apical] Regular Regular Pulse Strength [Apical] Normal Normal Respiratory Rate 20 20 Respiratory Effort / Characteristics Non-Labored Spontaneous Non-Labored Spontaneous Respiratory Depth Normal Normal Respiratory Pattern Regular Regular Blood Pressure Blood Pressure [Right Arm] 139/77 146/74 H Blood Pressure Mean Blood Pressure Mean [Right Arm] 97 98 Blood Pressure Position Blood Pressure Position [Right Arm] Sitting Sitting Pulse Oximetry 98 97 Oxygen Delivery Method Room Air Room Air Sepsis Recent Fever Within 48 Hours Sepsis New/Unexplained Change in Mental Status Sepsis Action Taken by Nursing GENERAL: Sitting up in bed, wearing hospital gown, wearing glasses, talking in full sentences. HEAD: Tenderness over the left maxillary sinus. EYE EXAM: normal conjunctiva OROPHARYNX: no exudate, no erythema, lips, buccal mucosa, and tongue normal and mucous membranes are moist NECK: supple, no nuchal rigidity, no adenopathy, non-tender CHEST: Port in right chest. LUNGS: Diminished bilaterally. Clear to auscultation. Normal chest wall mechanics HEART: no murmurs, S1 normal and S2 normal ABDOMEN: abdomen soft, non-tender, normo-active bowel sounds, no masses, no rebound or guarding. BACK: Back is symmetrical on inspection and there is no deformity, no midline tenderness, no CVA tenderness. SKIN: no rashes and no bruising UPPER EXTREMITIES: upper extremities are grossly normal. LOWER EXTREMITIES: No pitting edema. NEURO EXAM: Normal sensorium, cranial nerves II-XII grossly intact, normal speech, no gross weakness of arms, no gross weakness of legs. Course Course ED COURSE: Vital signs were reviewed and showed hypertension. The patients medical record was reviewed The above diagnostic studies were performed and reviewed. ED treatments and interventions as stated above. 1332: The patient was evaluated in room A3. A complete history and physical examination was performed. 1507: Upon reevaluation, the patient is the patient is resting comfortably. I discussed my findings with the patient and she understands and agrees with the treatment plan. Based on the patients age, coexisting illnesses, exam and lab findings the dec ision to treat as an inpatient was made. The patient remained stable while under my care. 1535: The patient will be evaluated for further management. I discussed the case with [facility] who accepts the patient for further evaluation [facility]. Administered Medications Vancomycin HCl 2,500 mg/ (Sodium Chloride) 550 mls @ 200 mls/hr IV 1800 ONE Stop: 11/02/19 20:44 Last Admin: 11/02/19 18:11 Dose: 200 mls/hr Documented by: [id number] Discontinued Medications Sodium Chloride (Nss 1000ml) 2,000 mls @ 999 mls/hr IV .Q2H1M ONE Stop: 11/02/19 15:36 Last Infusion: 11/02/19 16:10 Dose: 0 mls/hr Documented by: [id number] Admin: 11/02/19 14:00 Dose: 999 mls/hr Documented by: [id number] Cefepime HCl (Maxipime) 2,000 mg in 20 mls @ 5 mls/min IV NOW STA Stop: 11/02/19 15:06 Last Admin: 11/02/19 15:25 Dose: 5 mls/min Documented by: [id number] Medical Decision Making Differential Diagnosis Differential diagnosis includes etiologies such as sepsis, UTI, pneumonia, metabolic, electrolyte abnormalities, cardiac sources, intracerebral event, toxicologic, neurologic, as well as others were entertained. Medical Records Attestation: I reviewed the patient's medical records. Home Medications Current Medication List: was personally reviewed by me Laboratory Data Attestation: I reviewed the patient's lab results. Result diagrams: 11/02/19 14:01 11/02/19 14: Lab Results 11/02/19 11/02/19 11/02/19 Range/Units 14:01 14:01 14:01 WBC 1.23 L (4.8-10.8) K/uL RBC 2.76 L (4.2-5.4) M/uL Hgb 9.0 L (12.0-16.0) g/dL Hct 28.1 L (37-47) % MCV 101.8 H (80-100) fL MCH 32.6 (25-34) pg MCHC 32.0 (32-36) g/dL RDW Std Deviation 54.4 H (36.4-46.3) fL RDW Coeff of Marcell 14.9 H (11.5-14.5) % Plt Count 93 L (130-400) K/uL MPV 10.3 (7.4-10.4) fL Immature Gran % (Auto) 0.0 % Neut % (Auto) 0.0 % Lymph % (Auto) 72.4 % Randall % (Auto) 24.4 % Eos % (Auto) 2.4 % Baso % (Auto) 0.8 % Immature Gran # (Auto) 0.00 (0.00-0.02) K/uL Neut # (Auto) 0.00 L* (1.4-6.5) K/uL Lymph # (Auto) 0.89 L (1.2-3.4) K/uL Randall # (Auto) 0.30 (0.11-0.59) K/uL Eos # (Auto) 0.03 (0-0.5) K/uL Baso # (Auto) 0.01 (0-0.2) K/uL Absolute Nucleated RBC 0.03 H (0-0) K/uL Nucleated RBC % (auto) 2.7 % Platelet Estimate Decreased L (Normal) PT 11.0 (9.0-12.0) Seconds INR 1.1 (0.9-1.1) APTT 33.9 H (21.0-31.0) Seconds PTT Ratio 1.3 Sodium 140 (136-145) mmol/L Potassium 3.8 (3.5-5.1) mmol/L Chloride 111 H (98-107) mmol/L Carbon Dioxide 24 (21-32) mmol/L Anion Gap 5.0 (3-11) BUN 13 (7-18) mg/dl Creatinine 1.05 (0.6-1.2) mg/dl Est Cr Clr Drug Dosing 68.6 ml/min Est GFR ( Amer) 63.6 Est GFR (Non-Af Amer) 54.9 BUN/Creatinine Ratio 12.7 (10-20) Glucose 104 H (70-99) mg/dl Lactate (0.4-2.0) mmol/L Calcium 8.5 (8.5-10.1) mg/dl Total Bilirubin 0.4 (0.2-1) mg/dl AST 18 (15-37) U/L ALT 18 (12-78) U/L Alkaline Phosphatase 73 (45-117) U/L Total Protein 6.5 (6.4-8.2) gm/dl Albumin 3.1 L (3.4-5.0) gm/dl Globulin 3.4 (2.5-4.0) gm/dl Albumin/Globulin Ratio 0.9 (0.9-2) Influenza Type A Ag (Neg) Influenza Type B Ag (Neg) 11/02/19 11/02/19 Range/Units 14:01 14:25 WBC (4.8-10.8) K/uL RBC (4.2-5.4) M/uL Hgb (12.0-16.0) g/dL Hct (37-47) % MCV (80-100) fL MCH (25-34) pg MCHC (32-36) g/dL RDW Std Deviation (36.4-46.3) fL RDW Coeff of Marcell (11.5-14.5) % Plt Count (130-400) K/uL MPV (7.4-10.4) fL Immature Gran % (Auto) % Neut % (Auto) % Lymph % (Auto) % Randall % (Auto) % Eos % (Auto) % Baso % (Auto) % Immature Gran # (Auto) (0.00-0.02) K/uL Neut # (Auto) (1.4-6.5) K/uL Lymph # (Auto) (1.2-3.4) K/uL Randall # (Auto) (0.11-0.59) K/uL Eos # (Auto) (0-0.5) K/uL Baso # (Auto) (0-0.2) K/uL Absolute Nucleated RBC (0-0) K/uL Nucleated RBC % (auto) % Platelet Estimate (Normal) PT (9.0-12.0) Seconds INR (0.9-1.1) APTT (21.0-31.0) Seconds PTT Ratio Sodium (136-145) mmol/L Potassium (3.5-5.1) mmol/L Chloride (98-107) mmol/L Carbon Dioxide (21-32) mmol/L Anion Gap (3-11) BUN (7-18) mg/dl Creatinine (0.6-1.2) mg/dl Est Cr Clr Drug Dosing ml/min Est GFR ( Amer) Est GFR (Non-Af Amer) BUN/Creatinine Ratio (10-20) Glucose (70-99) mg/dl Lactate 1.1 (0.4-2.0) mmol/L Calcium (8.5-10.1) mg/dl Total Bilirubin (0.2-1) mg/dl AST (15-37) U/L ALT (12-78) U/L Alkaline Phosphatase (45-117) U/L Total Protein (6.4-8.2) gm/dl Albumin (3.4-5.0) gm/dl Globulin (2.5-4.0) gm/dl Albumin/Globulin Ratio (0.9-2) Influenza Type A Ag Neg for Influ A (Neg) Influenza Type B Ag Neg for Influ B (Neg) Imaging Data Radiologist's Impression: Radiology results as stated below per my review and the radiologist's interpretation: XR chest 1V portable CLINICAL HISTORY: Sepsis dyspnea COMPARISON STUDY: 06/26/2019 FINDINGS: Central catheter unchanged in position within the right atrium. Chronic elevation right hemidiaphragm. Stable consolidative/masslike change right hilum. Left lung is clear. IMPRESSION: Chronic and pre-existing change. No acute or superimposed infiltrative process. The above report was generated using voice recognition software. It may contain grammatical, syntax or spelling errors. Electronically signed by: Michael Bhat M.D. 11/02/2019 2:22 PM ECG Data Attestation: I personally reviewed and interpreted this ECG as follows: Indication: + other (sepsis ) Rate (beats per minute): 98 Rhythm: + sinus rhythm ECG Intervals/blocks: + Normal QT-c ECG [place]: + Normal ECG Findings: no PVCs Blood Pressure Blood Pressure Findings: Elevated blood pressure Blood Pressure Disposition: elevated BP felt to be situational MDM Narrative Patient is a 69-year-old female with a past medical history of stage IV colon cancer who last received chemo about 3 weeks ago the presents the ER for a fever of 101 today. She admits to cough and congestion. IV was established blood work was obtained. Labs show a leukopenia of 1.2 thousand. Hemoglobin of 9 consistent with previous. Thrombocytopenia at 93 which is actually improved. Absolute neutrophil count is 0.0. INR was unremarkable. PTT slightly elevated. BMP along with LFTs bilirubin and lactic acid was normal. Influenza was negative. Chest x-ray without any focal infiltrate. Patient has no urinary sym ptoms. No other complaints at this time. She was given IV fluids and 2 g of cefepime due to the absolute neutropenia and reported fever at home. Discussed with the hospitalist and the patient and they were updated bedside patient was admitted for further work-up. Impression & Plan Neutropenic fever, Thrombocytopenia, Anemia, Pancytopenia, Colon cancer metastasized to lung Discharge Plan Visit Data Chief Complaint: Fever Stated Complaint: FEVER ED Provider: Alex Fernando Discharge Problem: Neutropenic fever, Thrombocytopenia, Anemia, Pancytopenia, Colon cancer metastasized to lung Patient Disposition: Being Evaluated by Hospitalist Forms Stand Alone Forms: My [employer] Prescriptions Prescriptions: No Action potassium chloride 20 mEq tablet,ER particles/crystals 20 meq PO BID Qty: 60 RF: 1 beclomethasone dipropionate 80 mcg/actuation HFA aerosol breath activated 2 puffs Inhalation BID Qty: 1 RF: 0 magnesium oxide 400 mg magnesium capsule 800 mg PO BID RF: 0 (DME) Oxygen Home Liters Per Minute See Dose Instructions .ROUTE .MEDSUPPLY Qty: 1 RF: 0 loperamide 2 mg tablet 2 mg PO QAM RF: 0 apixaban 5 mg tablet 5 mg PO BID RF: 0 sertraline 50 mg tablet 50 mg PO HS RF: 0 simvastatin 40 mg tablet 40 mg PO QPM RF: 0 multivitamin Tablet 1 tab PO QAM RF: 0 albuterol sulfate 90 mcg/actuation HFA aerosol inhaler 2 puff Inhalation Q6 PRN (Reason: Shortness Of Breath Or Wheezing) RF: 0 [id number]-[id number]-atn C-Mn [Glucosamine Chondroitin MaxStr] 500-400 mg Capsule 1 cap PO BID RF: 0 metoprolol tartrate 50 mg tablet 75 mg PO BID Qty: 90 RF: 2 aspirin 81 mg Tablet,Delayed Release (Dr/Ec) 81 mg PO HS RF: 0 ascorbic acid (vitamin C) [Vitamin C] 500 mg Tablet 500 mg PO BID RF: 0 cholecalciferol (vitamin D3) [Vitamin D3] 1,000 unit Tablet,Chewable 1,000 unit PO QAM RF: 0 Folfox Chemotherapy 1 applic IV UD RF: 0 levothyroxine 137 mcg tablet 137 mcg PO QAM RF: 0 omeprazole 40 mg capsule,delayed release(DR/EC) 40 mg PO QAM RF: 0 colestipol [Colestid] 1 gram tablet 1 g PO QDD RF: 0 Referrals Referrals: Raimundo Garcia MD [Primary Care Provider] - Discharge Problem: Anemia Qualifiers: Anemia type: unspecified type Qualified Code(s): D64.9 - Anemia, unspecified The scribe's documentation has been prepared under my direction and personally reviewed by me in its entirety. I confirm that the note above accurately reflects all work, treatment, procedures, and medical decision making performed by me.
[2019-11-02] MEDS ORDERED: ACETAMINOPHEN 325 MG TAB PO PRN (19:46)
[2019-11-02] MEDS ORDERED: ONDANSETRON INJ 2 MG/ML 2 ML VIAL IV PRN (19:46)
[2019-11-02] MEDS ORDERED: ALBUTEROL HFA 8 GM INHALER INH PRN (19:46)
--- NOTE | 2019-11-02 20:49 | Pharmacy Report ---
Pharmacy Abx Initial Consult - Date of Service November 02, 2019 - Pharmacy Dosing Scope Date of Consult: 11/02 Consultation requested by: Dr. Josue Pharmacy is consulted to initiate vancomycin IV dosing therapy, order appropriate labs and adjust drug dose/frequency. - Subjective The patient is a 69 year old F admitted on 11/02/19 17:43. - Objective Height: 5 ft 4 in Weight: 129.2 kg Vital Signs (Past 12hrs): Vital Signs Temp Pulse Pulse Resp BP BP Pulse Ox 11/02/19 19:47 37.3 C 114 H 22 138/82 96 11/02/19 18:11 37.4 C 98 H 20 146/74 H 97 11/02/19 15:26 37.2 C 112 H 20 139/77 98 11/02/19 14:13 96 11/02/19 13:35 94 H 20 113/85 96 11/02/19 12:33 37.1 C 95 H 18 129/67 97 Lab Results (24hrs): Laboratory Tests (24 Hours) 11/02/19 11/02/19 14:01 14:01 WBC 1.23 L Neut # (Auto) 0.00 L* Creatinine 1.05 Est Cr Clr Drug Dosing 68.6 Micro Results: 11/02/19 14:14 Aerobic Blood Culture - Pending Blood Anaerobic Blood Culture - Pending 11/02/19 14:01 Aerobic Blood Culture - Pending Blood Anaerobic Blood Culture - Pending - Risk Factors for Resistance * Immunocompromised (chronic steroid therapy, chemotherapy, immunomodulators) - Assessment & Plan Assessment 69 year old F with metastatic colon cancer on chemotherapy, admitted with fever and neutropenia (ANC = 0). She received a dose of vancomycin and cefepime in the ED and these are being continued for neutropenic fever. Plan Vancomycin and cefepime for treatment of neutropenic fever (medications currently on for 48 hours due to empiric indication) Vancomycin IV * Estimated PK Parameters: Vd 0.54 L/kg, Edgar 0.061 hr-1, t1/2 11.4 hr * Loading dose: 2500 mg (20 mg/kg) - discussed this with Dr. Josue since initial order was for 15 mg/kg. Recommended the usual loading dose of 20 mg/kg to fill patient's volume and then will back off on maintenance dose as accumulation is anticipated * Maintenance dose: 1250 mg IV (9.7 mg/kg) every 12 hours * Goal trough level : 15 to 20 mcg/mL * No levels to be ordered unless duration to extend > 48 hours * A less than traditional dose has been selected due to likelihood of drug accumulation in obese patient Cefepime (not a pharmacy consult) * 2 gm IV q8h is appropriate Pharmacy will continue to follow and will adjust dose/frequency as necessary. Thank you.
[2019-11-02 21:01] LABS: Appearance Urine Clear (Clear); Bilirubin Urine Negative (Negative); Blood Urine Negative (Negative); Color Urine Yellow; Glucose Urine UA Negative (Negative); Ketones Urine Negative (Negative); Leukocyte Esterase Urine Negative (Negative); Nitrite Urine Negative (Negative); Protein Urine Negative (Negative); Specific Gravity Urine 1.017 (1.000-1.030); Urobilinogen Urine Negative (Negative)
[2019-11-02] MEDS: BECLOMETHASONE DIP HFA 80 MCG 8.7G INH INH SCH (21:16)
[2019-11-02] MEDS: ASPIRIN 81 MG ECTAB PO SCH (21:17)
[2019-11-02] MEDS: POTASSIUM CHLORIDE 20 MEQ TABCR PO SCH (21:17)
[2019-11-02] MEDS: APIXABAN 5 MG TABLET PO SCH (21:17)
[2019-11-02] MEDS: METOPROLOL TARTRATE 25 MG TAB PO SCH (21:18)
[2019-11-02] MEDS: SERTRALINE HCL 50 MG TABLET PO SCH (21:20)
[2019-11-02] MEDS: MAGNESIUM OXIDE 400 MG TAB PO SCH (21:20)
[2019-11-02] MEDS: SIMVASTATIN 40 MG TAB PO SCH (21:20)
[2019-11-02] MEDS: CEFEPIME 2,000 MG in SYRINGE 7.5 ML IV SCH (23:47)
[2019-11-02] MEDS: HEPARIN 100 UNIT/ML 5ML FLUSH IV PRN (23:47)
[2019-11-03] MEDS: VANCOMYCIN HCL 1,250 MG in SODIUM CHLORIDE 0.9% 250 ML IV SCH ×2 (05:45→17:57)
[2019-11-03] MEDS: LEVOTHYROXINE SODIUM 137 MCG TABLET PO SCH (05:46)
[2019-11-03 07:06] LABS: Hematocrit (blood only) 27.3 % (37-47); Hemoglobin 8.6 g/dL (12.0-16.0); Mean Corpuscular Hemoglobin 32.5 pg (25-34); Mean Corpuscular Hgb Conc 31.5 g/dL (32-36); Mean Platelet Volume 9.9 fL (7.4-10.4); Nucleated RBC # (auto) 0.04 K/uL (0-0); Nucleated RBC % (auto) 3.9 %; Platelet Count 86 K/uL (130-400); RDW Standard Deviation 55.9 fL (36.4-46.3); Red Blood Count 2.65 M/uL (4.2-5.4); White Blood Count 0.93 K/uL (4.8-10.8)
[2019-11-03 07:07] LABS: BUN Creatinine Ratio 10.2 (10-20); Calcium 8.3 mg/dl (8.5-10.1); Creatinine Clr Calc Pharmacy 63.1 ml/min; Est GFR (Non-African American) 49.2; Magnesium 1.9 mg/dl (1.8-2.4)
[2019-11-03 07:17] LABS: Thyroid Stimulating Hormone 1.49 uIu/ml (0.300-4.500)
[2019-11-03 07:18] LABS: Eosinophils # (auto) 0.03 K/uL (0-0.5); Eosinophils % (auto) 3.2 %; Lymphocytes % (auto) 64.5 %; Monocytes % (auto) 32.3 %; RBC Morphology Unremarkable
[2019-11-03] MEDS: CEFEPIME 2,000 MG in SYRINGE 7.5 ML IV SCH ×3 (08:32→23:51)
[2019-11-03] MEDS: POTASSIUM CHLORIDE 20 MEQ TABCR PO SCH ×2 (08:33→20:41)
[2019-11-03] MEDS: LOPERAMIDE HCL 2 MG CAP PO SCH (08:33)
[2019-11-03] MEDS: METOPROLOL TARTRATE 25 MG TAB PO SCH ×2 (08:34→20:41)
[2019-11-03] MEDS: MAGNESIUM OXIDE 400 MG TAB PO SCH ×2 (08:34→20:44)
[2019-11-03] MEDS: BECLOMETHASONE DIP HFA 80 MCG 8.7G INH INH SCH ×2 (08:35→20:40)
[2019-11-03] MEDS: PANTOprazole 40 MG TAB PO SCH (08:35)
[2019-11-03] MEDS: APIXABAN 5 MG TABLET PO SCH ×2 (08:35→20:40)
[2019-11-03] MEDS ORDERED: FILGRASTIM 300 MCG/ML VIAL SQ ONE (13:22)
--- NOTE | 2019-11-03 13:24 | Hospitalist Progress Note ---
Date of Service November 03, 2019 Assessment & Plan (1) Neutropenic fever: ANC=0 r/o bacteremia and other potential life threatening infections IV Vanco and Cefepime D2 (consider stopping Abx if BC remains neg for 48hrs) consider augmentin or Levaquin at discharge for sinusitis follow cultures (BC and UC) for minimum of 48hrs neutropenic precautions give more Neupogen 480mcg daily x 3d consider Neulasta in office post discharge if still indicated serial CBC daily discussed with Oncology, Dr. Ramirez s/p Neupogen 300mcg on 12.6 neg MRSA nasal swab (2) Colon cancer metastasized to lung: see problem #1 Neutropenic fever (3) Antineoplastic chemotherapy induced pancytopenia: see under problem #1 Neutropenic fever (4) Acute sinus infection: see under problem #1 Neutropenic fever being treated with IV Vanco and Cefepime for neutropenic fever consider augmentin or Levaquin at discharge for sinusitis monitor symptoms (5) Thrombocytopenia: stable wo active bleeding monitor closely. 99 -> 86 (6) Anemia: chronic and stable monitor closely (7) Sleep apnea: would benefit from long term care pharmacist weight loss CPAP qhs but pt cannot report the settings 02 2L NC qhs (8) Morbid obesity with BMI of 45.0-49.9, adult: would benefit from long term care pharmacist weight loss (9) Radiation pneumonitis: (10) [facility] current use of anticoagulant: (11) Hypercoagulable state, secondary: DVT, PE in 2014 indefinitely apixaban (12) Essential hypertension: controlled cont BB (13) HLD (hyperlipidemia): continue statin (14) GERD (gastroesophageal reflux disease): cont PPI (15) History of immunocompromised state: see problem #1 neutropenic fever (16) Port-A-Cath in place: no signs or symptoms of current infection (17) Chronic respiratory failure with hypoxia: on chronic home 02 2L qhs (18) Depression: cont SSRI (19) Hypothyroid: cont LT4. check TSH (20) Hypomagnesemia: cont oral Mg. previously severe hypomagnesemia and related seizures MISCELLANEOUS: this pt's expected LOS is 2+ MN to r/o bacteremia and serious infection Subjective patient reports that she feels about the same. Tmax of 37.8 overnight. R sinus pressure is about the same intensity. now having significantly more clear rhinorrhea. + fatigue. no new sxs tolerating Vanco and Cefepime. BC remain neg to date. ANC = 0 despite the neupogen 300mg yesterday. + neutropenic precautions. Review of Systems Review of Systems: Positive ROS: only as in Subjective HENT: Negative for sore throat. Respiratory: Negative for cough and SOB. Cardiovascular: Negative for chest pain and palpitations. Gastrointestinal: Negative for abdominal pain, diarrhea, nausea and vomiting. Genitourinary: Negative for dysuria. Skin: Negative for itching and rash. Neurological: Negative for focal weakness and headaches. Physical Exam Physical Exam: Abnormal Exam: morbidly obese mild-mod R maxillary sinus tenderness + scant wheezing R upper chest with port intact wo erythema, tenderness or drainage Constitutional: No distress. HENT: Mouth/Throat: Oropharynx is clear and moist. Eyes: Conjunctivae are normal. No scleral icterus. Cardiovascular: Normal RRR and normal heart sounds. No murmur heard. no gallop and no friction rub. Pulmonary/Chest: Effort normal. No respiratory distress. no rales. Abdominal: Soft. Bowel sounds are normal. no distension. There is no tenderness. Musculoskeletal: no deformity. Neurological: alert. no focal deficits. GCS=15 Skin: Skin is warm and dry. No rash noted. Psychiatric: Mood, affect and judgment normal. Results & Data Vital Signs (Past 12 Hours) Vital Signs Temp Pulse Pulse Resp BP BP Pulse Ox 11/03/19 11:26 37.8 C H 95 H 18 116/75 94 11/03/19 07:42 36.8 C 96 H 20 125/69 95 11/03/19 04:00 36 C L 97 H 20 102/60 96 11/03/19 03:49 93 H 20 95 (1) Anemia Anemia type: unspecified type Qualified Code(s): D64.9 - Anemia, unspecified (2) HLD (hyperlipidemia) Hyperlipidemia type: mixed hyperlipidemia Qualified Code(s): E78.2 - Mixed hyperlipidemia (3) Hypothyroid Hypothyroidism type: acquired Qualified Code(s): E03.9 - Hypothyroidism, unspecified (4) GERD (gastroesophageal reflux disease) Esophagitis presence: esophagitis presence not specified Qualified Code(s): K21.9 - Gastro-esophageal reflux disease without esophagitis
[2019-11-03] MEDS: FILGRASTIM 480 MCG/1.6 ML VIAL SC SCH (16:19)
--- NOTE | 2019-11-03 18:44 | Consultation Report ---
DATE OF CONSULTATION: 11/03/2019 MEDICAL ONCOLOGY CONSULTATION REASON FOR CONSULTATION: A 69-year-old female with metastatic colorectal cancer admitted to [facility] with neutropenic fever. HISTORY OF PRESENT ILLNESS: Marie is a pleasant, unfortunate 69-year-old female well known to [facility], has been under my care for quite some time with a metastatic colorectal cancer. The patient was recently started on salvage FOLFOX, which was administered approximately 10 days ago. This was her initial dose. Marie has been battling colorectal cancer for over a decade. She has received numerous chemotherapeutic combination now 10 years plus into her diagnosis. The patient has been seen by multiple clarity specialists throughout the [place] looking for optimal salvage treatment. Thus has been heavily pretreated over the years. She last saw Dr. Malik Hernandez at [facility] who recommended reinstituting FOLFOX. Again, Marie received her first dose about 10 days ago. Not terribly surprising, she presents to [facility] with a low-grade fever and completely absent of neutrophils. The patient has been battling with intermittent low-grade fever over the past couple of days. She contacted our office and was instructed to proceed to the Emergency Room. Zepeda cultures have been obtained. She is receiving both gram-negative and positive coverage. She reports no other symptomatology at this time. PAST MEDICAL HISTORY: Includes previous bilateral pulmonary embolism, metastatic colorectal cancer, diverticular disease, DVT of the lower extremities, genital herpes, hyperlipidemia, electrolyte dysfunction, seizure disorder, radiation pneumonitis, previous coag negative septicemia and a history of systemic inflammatory response syndrome. PAST SURGICAL HISTORY: Includes prior colectomy, hysterectomy, lung surgery as well as tonsillectomy. CURRENT MEDICATIONS: Include omeprazole 40 mg p.o. daily, levothyroxine 137 mcg p.o. daily, Colestid 1 gram p.o. daily, cholecalciferol 1000 units p.o. daily, aspirin 81 mg p.o. daily, vitamin C 500 mg p.o. b.i.d., loperamide 2 mg p.o. q.a.m., potassium chloride 20 mEq p.o. b.i.d., Pulmicort inhaler 2 puffs inhaled b.i.d., mag oxide 800 mg p.o. b.i.d., home oxygen as needed, metoprolol 75 mg p.o. b.i.d., simvastatin 40 mg p.o. daily, sertraline 50 mg p.o. daily, apixaban 5 mg p.o. b.i.d., albuterol sulfate 2 puffs inhaled q. 6 hours as needed. ALLERGIES: MEPERIDINE AND MORPHINE. SOCIAL HISTORY: The patient is and lives with her spouse. 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 FAMILY HISTORY: She has an uncle who suffered from colorectal cancer. Father at age 81 from gangrene complications. Mother of thyroid cancer. REVIEW OF SYSTEMS: Essentially negative. Marie claims for the most part just a low-grade fever. She has had a few musculoskeletal aches and pains and is hampered with a little fatigue, but otherwise the rest of her systems are negative. I specifically asked her about sore throat for which she denied. All other systems except those mentioned are negative. PHYSICAL EXAMINATION: GENERAL: Morbidly obese 69-year-old female, in no acute distress. VITAL SIGNS: Temperature 37.8, respiratory rate 18, pulse is 95, blood pressure 116/75. SKIN: Warm, dry, noncyanotic without petechia, rash or ecchymosis. HEENT: Head is atraumatic, normocephalic. Eyes: PERRLA, EOMI. Sclerae nonicteric. No conjunctival injection. Nares are patent without rhinorrhea or discharge. Throat is clear. There is no evidence of thrush or mucositis. NECK: Bull neck, supple. No JVD or thyromegaly. LYMPH: No cervical, supraclavicular palpable nodes. HEART: Regular rate and rhythm. LUNGS: Clear to auscultation bilaterally. ABDOMEN: Soft, nontender, nondistended. EXTREMITIES: No clubbing, cyanosis or edema. MUSCULOSKELETAL: Strength and pulses are equal in all 4 quadrants. NEUROLOGICALLY: She is grossly intact. Cranial nerves are grossly intact. LABORATORY DATA: WBC count 930 in total, hemoglobin 8.6, platelet count 86,000. She has 0 neutrophils. She also has a presence of nucleated RBCs. Sodium 141, potassium 4, chloride 112, carbon dioxide 24, creatinine 1.15, BUN 12, albumin is slightly decreased at 3.1. Her last CEA was measured on Jeancarlos 3rd 16.6. RADIOGRAPHIC DATA: Chest x-ray done on admission, chronic and preexisting change, no acuity. IMPRESSION: 1. Metastatic colorectal cancer. 2. Neutropenic fever. 3. Pancytopenia attributable to FOLFOX chemotherapy. 4. Mild hypoalbuminemia. PLAN: Marie is a very pleasant heavily pretreated 69-year-old female with metastatic colorectal cancer under my care. She was contacted by the hospitalist service regarding her admission to hospital recently. Appropriately, she has been pancultured and empirically treated with both gram positive and egative coverage. There is no evidence that she suffers from candidiasis or fungemia. Clearly, I would prefer to have her out of the house if possible in short order. Agree with the incorporation of granulocyte colony stimulating growth factor 480 mcg administered daily today and at least tomorrow should suffice. Await culture results and proceed with appropriate antimicrobials. Have engaged in lengthy discussion with Marie regarding her chemotherapy dosing moving forward. In light of her heavy pretreatment, will definitely need to reduce her dose across the board, I would suggest 20-25% and incorporate a long acting granulocyte colony stimulating growth factor after pump removal each cycle. I have no objection for her being discharged to home with minimal neutrophils as she is most likely safer at home than in the hospital quite frankly. Tentatively, she has followup this coming Tuesday with our physician sql ssrs developer and thus if she is medically stable tomorrow, I see no reason why not to proceed to discharge. I will leave that decision obviously up to your discretion. Thank you very much for allowing me to participate in her care. I have no further recommendations at this time. JHONYD
[2019-11-03] MEDS: ASPIRIN 81 MG ECTAB PO SCH (20:40)
[2019-11-03] MEDS: SIMVASTATIN 40 MG TAB PO SCH (20:44)
[2019-11-03] MEDS: SERTRALINE HCL 50 MG TABLET PO SCH (20:44)
[2019-11-04] MEDS: VANCOMYCIN HCL 1,250 MG in SODIUM CHLORIDE 0.9% 250 ML IV SCH (05:39)
[2019-11-04] MEDS: LEVOTHYROXINE SODIUM 137 MCG TABLET PO SCH (05:40)
[2019-11-04 05:55] LABS: Hematocrit (blood only) 26.9 % (37-47); Hemoglobin 8.4 g/dL (12.0-16.0); Mean Corpuscular Hemoglobin 31.8 pg (25-34); Mean Corpuscular Hgb Conc 31.2 g/dL (32-36); Mean Corpuscular Volume 101.9 fL (80-100); Nucleated RBC # (auto) 0.09 K/uL (0-0); Nucleated RBC % (auto) 6.4 %; Platelet Count 100 K/uL (130-400); RDW Coefficient of Variation 15.1 % (11.5-14.5); RDW Standard Deviation 54.7 fL (36.4-46.3); Red Blood Count 2.64 M/uL (4.2-5.4); White Blood Count 1.46 K/uL (4.8-10.8)
[2019-11-04 07:30] LABS: Dohle Bodies 2+
[2019-11-04 07:33] LABS: ALC (manual) 0.76 K/uL (1.2-3.4); ANC (manual) 0.24 K/uL (1.4-6.5); Basophils # (manual) 0.03 K/uL (0-0.2); Basophils % (manual) 1.8 %; Blast # (manual) 0.01 K/uL (0-0); Blast Cells % (manual) 0.9 %; Eosinophils # (manual) 0.13 K/uL (0-0.5); Eosinophils % (manual) 9.1 %; Lymphocytes # (manual) 0.76 K/uL (1.2-3.4); Lymphocytes % (manual) 51.8 %; Metamyelocytes # (manual) 0.03 K/uL (0-0); Metamyelocytes % (manual) 1.8 %; Monocytes # (manual) 0.24 K/uL (0.11-0.59); Monocytes % (manual) 16.4 %; Myelocytes # (manual) 0.03 K/uL (0-0); Myelocytes % (manual) 1.8 %; Neutrophils # (manual) 0.24 K/uL (1.4-6.5); Neutrophils % (manual) 16.4 %
[2019-11-04] MEDS: CEFEPIME 2,000 MG in SYRINGE 7.5 ML IV SCH (08:39)
[2019-11-04] MEDS: LOPERAMIDE HCL 2 MG CAP PO SCH (08:39)
[2019-11-04] MEDS: METOPROLOL TARTRATE 25 MG TAB PO SCH (08:41)
[2019-11-04] MEDS: MAGNESIUM OXIDE 400 MG TAB PO SCH (08:42)
[2019-11-04] MEDS: POTASSIUM CHLORIDE 20 MEQ TABCR PO SCH (08:42)
[2019-11-04] MEDS: APIXABAN 5 MG TABLET PO SCH (08:42)
[2019-11-04] MEDS: PANTOprazole 40 MG TAB PO SCH (08:43)
[2019-11-04] MEDS: BECLOMETHASONE DIP HFA 80 MCG 8.7G INH INH SCH (08:43)
--- NOTE | 2019-11-04 11:56 | Discharge Summary ---
Date of Service November 04, 2019 Admission HPI Per Admitting Provider This 69yo WF with metastatic colon cancer on chemotherapy (Folfox and 5FU 3 wks ago) has had issues with neutropenia. today had new fever 101.0 persistent most of the day. has not been receivig Neupogen. 2d of R maxillary sinus pain, tenderness w/ mild-mod headache. had some mild epistaxis over the past week but as advised, used saline spray and then afrin nasal spray and that has resolved. + generalized fatigue moderate. no cough, sore throat, SOB (more than baseline). No GI sxs or sxs. No sick contacts. Admission Exam Per Admitting Provider Constitutional: well developed and + morbidly obese; not in distress Eyes: EOM intact bilaterally; no conjunctival abnormality, no scleral a bnormality and + no PERRL ENMT: Nose: + sinus tenderness and + facial tenderness (tender moderately over R maxillary sinus) Mouth: no oropharynx abnormality, no oral mucosal abnormality, TMJ nontender and no malodorous breath Respiratory: normal respiratory effort, lungs clear to auscultation normal respiratory effort and symmetric chest movement; no respiratory distress, does not use accessory muscles, no cough and no audible wheezes Auscultation: + breath sounds absent (in R lung base half way up); no crackles, no rales, no rhonchi and no wheezes Cardiovascular: Rate/Rhythm: regular rate and regular rhythm Heart Sounds: normal S1 and normal S2; no gallop, no murmur and no cardiac rub Vessels: no carotid bruit Extremities: + vascular access device (R upper chest with port a cath. no redness, swelling, tenderness, discharg); no pedal edema Chest (Breasts): Chest: normal inspection of chest Gastrointestinal (Abdomen): Inspection/Auscultation: abdomen normal to inspection and normal bowel sounds Percussion/Palpation: abdomen soft; abdomen nontender, no guarding, abdomen not rigid and no abdominal mass Musculoskeletal: Extremities: extremities normal to inspection and + limited ROM of upper extremity (chronic R shoulder limitation ) Right Skin: normal turgor; no rashes and no jaundice Neurologic: moves all extremities and awake; not confused and not obtunded Speech / Cognition: normal speech and no expressive aphasia Motor/Sensory: no tremor and normal movement Cranial Nerves: PERRL Coordination: + abnormal [id number] test Psychiatric: Orientation: alert and oriented x 3 Appearance: appropriately dressed and appropriately groomed Eye Contact: good eye contact Motor Behavior: no abnormal motor movements Speech: normal rate/rhythm/volume of speech Affect: euthymic affect Lymphatic: no cervical lymphadenopathy Principal Diagnosis Neutropenic Fever acute R maxillary sinusitis Colon cancer metastasized to lung Antineoplastic chemotherapy induced pancytopenia Discharge Exam Abnormal Exam: morbidly obese mild (decreased) R maxillary sinus tenderness R upper chest with port intact wo erythema, tenderness or drainage Constitutional: No distress. Eyes: Conjunctivae are normal. No scleral icterus. Cardiovascular: Normal RRR and normal heart sounds. No murmur heard. no gallop and no friction rub. Pulmonary/Chest: Effort normal. Lungs are clear. No respiratory distress. no wheezing. no rales. Abdominal: Soft. Bowel sounds are normal. no distension. There is no tenderness. Neurological: alert. no focal deficits. GCS=15 Psychiatric: Mood, affect and judgment normal. Discharge Data Allergies Allergy/AdvReac Type Severity Reaction Status Date / Time thiopental Allergy Unknown INCREASED Verified 11/02/19 15:18 BLEEDING WITH WISDOM TEETH SURG meperidine AdvReac Mild N/V Verified 11/02/19 15:18 morphine AdvReac Mild N/V Verified 11/02/19 15:18 Consultations Consult Oncology Routine: [facility] Course (1) Neutropenic fever: This 69yo WF was receiving chemotherapy for metastatic colon cancer with Fosfol and 5FU (last dose 3w STOCK WETTER) p/w fever 101.0, extreme fatigue and was found to have an ANC=0. + 2d R maxillary sinus pain with some tenderness and moderate headache. She had not been receiving any GCSF products. She did have a port in her right upper chest that had no s/s of infxn. She had 2 BC drawn, 1 from the port and 1 peripherally. She was started on IV vancomycin and IV cefepime for neutropenic fever until bacteremia was ruled out. She was started on Neupogen daily and Oncology was consulted. Despite the Neupogen, her ANC=0 and then OGT=050. Blasts were seen on the peripheral smear which is expected response to Neupogen and did not require any further intervention. she was kept on Neutropenic precautions throughout the duration of her stay. With the BCx2 negative at 48 hours, no further significant fevers, and patient was feeling better, she was able to discharge on 10 more days of oral Augmentin which she has had in the past and tolerated well. Patient was advised to get an outpatient CBC the day after discharge and then to connect with her oncology office to determine whether she should get an injection of Neulasta or not. Patient had no other acute events during this hospitalization. She had no compl ications. She was continued on her Eliquis which also provided VTE chemoprophylaxis. (2) Colon cancer metastasized to lung: see problem #1 Neutropenic fever (3) Antineoplastic chemotherapy induced pancytopenia: see under problem #1 Neutropenic fever (4) Acute sinus infection: see under problem #1 Neutropenic fever being treated with IV Vanco and Cefepime for neutropenic fever augmentin x 10d at discharge for sinusitis monitor symptoms (5) Thrombocytopenia: stable wo any need for acute intervention or change in treatment stable wo active bleeding monitor closely. 99 -> 86 (6) Anemia: stable wo any need for acute intervention or change in treatment chronic and stable monitor closely (7) Sleep apnea: would benefit from terminal clerk weight loss CPAP qhs but pt cannot report the settings 02 2L NC qhs (8) Morbid obesity with BMI of 45.0-49.9, adult: would benefit from group home weight loss (9) Radiation pneumonitis: (10) [facility] current use of anticoagulant: (11) Hypercoagulable state, secondary: stable wo any need for acute intervention or change in treatment DVT, PE in 2014 indefinitely apixaban (12) Essential hypertension: stable wo any need for acute intervention or change in treatment controlled cont BB (13) HLD (hyperlipidemia): continue statin (14) GERD (gastroesophageal reflux disease): cont PPI (15) History of immunocompromised state: see problem #1 neutropenic fever (16) Port-A-Cath in place: no signs or symptoms of current infection (17) Chronic respiratory failure with hypoxia: on chronic home 02 2L qhs (18) Depression: cont SSRI (19) Hypothyroid: cont LT4. TSH=1.49 at target (20) Hypomagnesemia: cont oral Mg. previously severe hypomagnesemia and related seizures Total Time Total Time Spent Total Time Spent (In Minutes): 30 Total Time Includes: Examination of the Patient, Discharge Planning, Medication Reconciliation and Communication With Other Providers Discharge Plan Discharge Items Patient Disposition: Home - Self-Care Reason For Visit: NEUTROPENIC FEVER Discharge Diagnosis: Sinusitis Neutropenic fever chemotherapy induced neutroppenia Condition on Discharge: Good Health Concerns: while you are Neutropenic, please avoid crowds and people in general and limit your exposure. wear mask when you have to be out. ill people should stay away from you. Activity: Resume your previous activity Non-emergency contact: Primary Care Provider and Oncologist Call non-emergency contact if: your temperature is above 101 Follow-up/Referrals: Raimundo Garcia MD [Primary Care Provider] - Malik Ramirez DO [Physician] - (on Tuesday after Tuesday's CBC to discuss results and consider getting Neulasta) Diet: Regular Addtl Attending Provider Instructions: get an outpatient blood test done on Tuesday am. if you are still Neutropenic, contact the oncologist office and consider getting Neulasta. if you develop severe diarrhea, stop the Augmentin and call your PCP or Oncologist continue to wear CPAP and nightly oxygen as previously directed Pending Studies at Discharge: No Stand-Alone Forms: My [facility] Medications and DC Order Prescriptions: New amoxicillin-pot clavulanate 875-125 mg tablet 1 tab PO BID Qty: 20 RF: 0 Continued potassium chloride 20 mEq tablet,ER particles/crystals 20 meq PO BID Qty: 60 RF: 1 beclomethasone dipropionate 80 mcg/actuation HFA aerosol breath activated 2 puffs Inhalation BID Qty: 1 RF: 0 magnesium oxide 400 mg magnesium capsule 800 mg PO BID RF: 0 (DME) Oxygen Home Liters Per Minute See Dose Instructions .ROUTE .MEDSUPPLY Qty: 1 RF: 0 loperamide 2 mg tablet 2 mg PO QAM RF: 0 apixaban 5 mg tablet 5 mg PO BID RF: 0 sertraline 50 mg tablet 50 mg PO HS RF: 0 simvastatin 40 mg tablet 40 mg PO QPM RF: 0 multivitamin Tablet 1 tab PO QAM RF: 0 albuterol sulfate 90 mcg/actuation HFA aerosol inhaler 2 puff Inhalation Q6 PRN (Reason: Shortness Of Breath Or Wheezing) RF: 0 pmaxwuaibig-mhuundofb-deg C-Mn [Glucosamine Chondroitin MaxStr] 500-400 mg Capsule 1 cap PO BID RF: 0 metoprolol tartrate 50 mg tablet 75 mg PO BID Qty: 90 RF: 2 aspirin 81 mg Tablet,Delayed Release (Dr/Ec) 81 mg PO HS RF: 0 ascorbic acid (vitamin C) [Vitamin C] 500 mg Tablet 500 mg PO BID RF: 0 cholecalciferol (vitamin D3) [Vitamin D3] 1,000 unit Tablet,Chewable 1,000 unit PO QAM RF: 0 Folfox Chemotherapy 1 applic IV UD RF: 0 levothyroxine 137 mcg tablet 137 mcg PO QAM RF: 0 omeprazole 40 mg capsule,delayed release(DR/EC) 40 mg PO QAM RF: 0 colestipol [Colestid] 1 gram tablet 1 g PO QDD RF: 0 Discharge Orders: Discharge Order (Routine); Ordered 11/04/19 Ordered By: Enrique Josue Admission Data Admit Date/Time: 11/02/19 17:43 Attending Provider: Enrique Josue Admit Provider: Enrique Josue Primary Care Provider: Raimundo Garcia Other Providers: Farzaneh Kinney ; Malik Ramirez V Other Interventions: Discharge Summary Assessment (RN) Last Done: 11/04/19 14:00 DC Date/Time DO NOT enter until pt leaves facility: 11/04/19 14:48
--- NOTE | 2019-11-04 12:15 | Progress Note ---
DATE: 11/04/2019 DIAGNOSES: 1. Neutropenic fever. 2. Pancytopenia attributable to FOLFOX chemotherapy. 3. Mild hypoalbuminemia. 4. Metastatic colorectal cancer. SUBJECTIVE: The patient is a pleasant, but an unfortunate 69-year-old female well known to my service, currently under care with metastatic colorectal cancer. She was admitted to hospital in the last 24 hours with fever, etiology unclear. Zepeda cultures done so far are pending. Her fever has improved while receiving both Gram positive and negative antibiotic coverage. She reports no other symptomatology. Nursing reports no overnight difficulties. The patient has no particular complaints this morning. OBJECTIVE: GENERAL: A very pleasant 69, morbidly obese female, in no acute distress. VITAL SIGNS: Temperature 37, pulse 99, respiratory rate 18, blood pressure 111/72. SKIN: Without rash or lesion. HEENT: No evidence of thrush. HEART: Regular rate and rhythm. LUNGS: Clear to auscultation bilaterally. ABDOMEN: Soft, nontender, nondistended. EXTREMITIES: No clubbing, cyanosis or edema. NEUROLOGIC: She is grossly intact. LABORATORY DATA: WBC count 1460, hemoglobin 8.4, platelet count 100,000. Absolute neutrophil count 240. IMPRESSION: 1. Neutropenic fever. 2. Pancytopenia attributable to chemotherapy. 3. Metastatic colorectal cancer. PLAN: The patient was seen and examined at bedside this morning. She has no particular somatic complaints. Her fever has improved. Neupogen 480 mcg subQ was administered yesterday and I have instructed the hospitalist service to dose her again today. She is due for chemotherapy later on this week. I advised her she may be delayed as I want her ANC to be at least 1000 before resuming. I also will recommend 20%-25% dose reduction across the board and institute Neulasta after pump removal each cycle of treatment. I would prefer the patient be discharged home as soon as possible. Perhaps she could be placed on p.o. Augmentin to cover sinusitis. Otherwise, agree with current medical management and will officially sign off. Dr. Ortiz will take over service tomorrow if there are any concerns or questions.
[2019-11-04] MEDS: FILGRASTIM 480 MCG/1.6 ML VIAL SC SCH (13:46)
[2019-11-04] MEDS: HEPARIN 100 UNIT/ML 5ML FLUSH IV PRN (13:46)
== END 2019-11-04 14:48 | disposition home or self-care (01) | DRG 809 ==
LOC: ED 12:13 → 2W 17:43

== ENCOUNTER 2019-12-18 11:05 | Inpatient (IN) ==
[2019-12-18] MEDS ORDERED: ONDANSETRON INJ 2 MG/ML 2 ML VIAL IV STA (11:28)
[2019-12-18] MEDS ORDERED: SODIUM CHLORIDE 0.9% 500 ML IV SCH (11:30)
[2019-12-18 11:52] LABS: Hematocrit (blood only) 32.6 % (37-47); Hemoglobin 10.1 g/dL (12.0-16.0); Mean Corpuscular Hemoglobin 33.4 pg (25-34); Mean Corpuscular Volume 107.9 fL (80-100); RDW Coefficient of Variation 23.2 % (11.5-14.5); RDW Standard Deviation 91.1 fL (36.4-46.3); Red Blood Count 3.02 M/uL (4.2-5.4); White Blood Count 9.81 K/uL (4.8-10.8)
--- NOTE | 2019-12-18 12:01 | XRay Report ---
XR chest 1V portable CLINICAL HISTORY: 69 years-old Female presenting with dizzy. TECHNIQUE: Portable upright AP view of the chest was obtained. COMPARISON: 11/02/2019. FINDINGS: Right internal jugular Mediport terminates in the SVC. Cardiac silhouette mildly enlarged. Redemonstr ation of the dense right perihilar opacity. Persistent elevation of the right hemidiaphragm. Right pl eural thickening and architectural distortion of the right lung base suspected. Left lung and pleural space clear. No pneumothorax. Osseous structures normal. Upper abdomen normal. IMPRESSION: 1. Stable examination. 2. Chronic right perihilar consolidation and chronic changes of the right hemithorax and right lung. 3. Mild cardiomegaly. ACT 112: Negative or not required by law. Electronically signed by: Joe Botello M.D. 12/18/2019 12:00 PM
[2019-12-18 12:15] LABS: Alanine Aminotransferase 31 U/L (12-78); Albumin Level 3.1 gm/dl (3.4-5.0); Aspartate Aminotransferase 35 U/L (15-37); BUN Creatinine Ratio 14.7 (10-20); Blood Urea Nitrogen 20 mg/dl (7-18); Calcium 8.7 mg/dl (8.5-10.1); Carbon Dioxide 27 mmol/L (21-32); Chloride 108 mmol/L (98-107); Creatinine Clr Calc Pharmacy 55.4 ml/min; Est GFR (African American) 47.4; Est GFR (Non-African American) 40.9; Glucose 130 mg/dl (70-99); Potassium 4.5 mmol/L (3.5-5.1); Sodium 141 mmol/L (136-145)
[2019-12-18 12:16] LABS: Prothrombin Time 10.5 Seconds (9.0-12.0)
[2019-12-18 12:25] LABS: Albumin Globulin Ratio 0.9 (0.9-2); Alkaline Phosphatase 102 U/L (45-117); Globulin 3.4 gm/dl (2.5-4.0); Total Protein 6.5 gm/dl (6.4-8.2); Troponin I < 0.015 ng/ml (0-0.045)
[2019-12-18 12:27] LABS: Mean Platelet Volume 9.3 fL (7.4-10.4); Platelet Count 88 K/uL (130-400)
[2019-12-18 12:30] LABS: Eosinophils # (auto) 0.01 K/uL (0-0.5); Eosinophils % (auto) 0.1 %; Immature Granulocytes # (auto) 0.06 K/uL (0.00-0.02); Immature Granulocytes % (auto) 0.6 %; Lymphocytes # (auto) 0.13 K/uL (1.2-3.4); Lymphocytes % (auto) 1.3 %; Monocytes # (auto) 0.05 K/uL (0.11-0.59); Monocytes % (auto) 0.5 %; Neutrophils # (auto) 9.56 K/uL (1.4-6.5); Neutrophils % (auto) 97.5 %; Ovalocytes 1+; Platelet Estimate Decreased (Normal); Polychromasia 1+
--- NOTE | 2019-12-18 12:51 | CT Scan Report ---
CT head/brain wo con CLINICAL HISTORY: 69 years-old Female presenting with lightheaded. TECHNIQUE: Multidetector CT imaging of the head was performed without the use of intravenous contrast . IV contrast: None. One or more dose lowering techniques were used consistent with the principles of ALARA (as low as reasonably achievable), including automatic exposure control, mA or kV adjustment t o individual patient size, and/or use of iterative reconstruction. COMPARISON: 02/10/2019 and brain MR from 03/26/2019. CT DOSE (mGy.cm): The estimated cumulative dose is 800.40 mGycm. FINDINGS: Survey Instrument Operator topogram: Unremarkable. Ventricles and sulci normal in size. No hemorrhage. Brain parenchyma normal in appearance with preser erwin clements-white differentiation. No acute territorial infarct. No mass effect or midline shift. No ext ra-axial fluid collection. Paranasal sinuses and mastoid air cells clear. Calvarium intact. IMPRESSION: 1. No acute intracranial abnormality. ACT 112: Negative or not required by law. Electronically signed by: Joe Botello M.D. 12/18/2019 12:50 PM
--- NOTE | 2019-12-18 13:02 | Emergency Department Note ---
Entered by Anabella Nicole acting as a scribe for Alex Fernando DO History of Present Illness General Chief complaint: Allergic Reaction Source: patient History of Present Illness Onset (ago): hour(s) less than 1 Location: head (allergic reaction) Pain Consistency: + other (sudden) Maximum Pain Intensity: 0 Quality: + other (allergic reaction) Exacerbated By: + other (chemotherapy treatment) Associated symptoms: + nausea/vomiting (Positive nausea. Negative vomiting. ) and + other (Positive light headed, double vision. Negative rhinorrhea, dysuria, polyuria.); no chest pain, no cough, no headaches, no shortness of breath and no syncope Treatments prior to arrival: other (Benadryl, Solumedrol, Zofran, IV fluids and supplemental oxygen) The patient is a 69 year old female presenting to the Emergency Department via EMS complaining of a sudden allergic reaction starting less than one hour ago in the [facility]. The patient reports that she was receiving chemotherapy in the [facility] and suddenly became light headed and nauseous. She states that she thought she was going to lose consciousness but did not. She notes that she had an episode of double vision that has since resolved upon arriving the in [facility] Emergency Department. She adds that she has never experienced these symptoms before while receiving chemotherapy. The patient reports that she is receiving treatment for colorectal cancer that metastasized to her lungs. She states that she saw Dr. Ramirez oncologist in the [facility] INTERPRETER TRANSLATOR. She explains that she received Benadryl, Solumedrol, Zofran, IV fluids and supplemental oxygen INTERPRETER TRANSLATOR and normally doesnt supplemental oxygen at home for the exception of using her C-PAP machine at night. She notes that she regularly takes Eliquis. The patient denies vomiting, chest pain, cough, rhinorrhea, shortness of breath, headache, dysuria and polyuria. Home Medications Home Medications Medication Instructions Recorded Confirmed Type albuterol sulfate 2 puff INHALATION Q6 PRN 08/07/18 12/18/19 History apixaban 5 mg PO BID 08/07/18 12/18/19 History [id number]-vothldyuy-uyd C-Mn 1 cap PO BID 08/07/18 12/18/19 History [Glucosamine Chondroitin MaxStr] multivitamin 1 tab PO QAM 08/07/18 12/18/19 History sertraline 50 mg PO HS 08/07/18 12/18/19 History simvastatin 40 mg PO QPM 08/07/18 12/18/19 History metoprolol tartrate 75 mg PO BID #90 tab 02/08/19 12/18/19 Rx Oxygen Home #1 ea 06/05/19 11/05/19 History magnesium oxide 800 mg PO BID cap 06/05/19 12/18/19 History potassium chloride 20 mEq 20 meq PO BID #60 tab 10/08/19 12/18/19 Rx tablet,extended release(part/cryst) loperamide 2 mg tablet 2 mg PO QAM tab 10/29/19 12/18/19 History Folfox Chemotherapy 1 applic IV UD 11/02/19 12/18/19 History ascorbic acid (vitamin C) [Vitamin 500 mg PO BID 11/02/19 12/18/19 History C] aspirin 81 mg PO HS 11/02/19 12/18/19 History cholecalciferol (vitamin D3) 1,000 unit PO QAM 11/02/19 12/18/19 History [Vitamin D3] colestipol [Colestid] 1 g PO QDD 11/02/19 12/18/19 History levothyroxine 137 mcg PO QAM 11/02/19 12/18/19 History omeprazole 40 mg PO QAM 11/02/19 12/18/19 History beclomethasone dipropionate 80 2 puffs INHALATION BID #34.8 gm 11/07/19 12/18/19 Rx mcg/actuation HFA breath activated aerosol ipratropium-albuterol 3 ml INHALATION Q4H PRN 12/18/19 12/18/19 History Allergies Allergy/AdvReac Type Severity Reaction Status Date / Time thiopental Allergy Unknown INCREASED Verified 12/18/19 12:18 BLEEDING WITH WISDOM TEETH SURG meperidine AdvReac Mild N/V Verified 12/18/19 12:18 morphine AdvReac Mild N/V Verified 12/18/19 12:18 Past Med/Surg History Medical History Bacteremia (Resolved) Bilateral pulmonary embolism (Resolved) Candidiasis of intestine (Resolved) Colon cancer metastasized to lung (Chronic 09/18/08) "Adenocarcinoma of the colon with lung metastasis diagnosed in 2007 Status post right lobectomy 07/10/2008 Status post colonoscopy and biopsy 09/18/2008 revealing the colon lesion. Status post resection. This was followed by chemotherapy. Status post left upper lobe wedge resection 08/24/2011 due to metastasis Status post stereotactic radiation therapy in 2011 Completed chemotherapy in 2014 Status post wedge resection with Dr. navarrete 2015 Status post hypo-fractionated radiation therapy in 2016 PET/CT 08/24/2017 revealing metabolic activity of the right hilum. Status post completion of radiation therapy 10/24/2017 utilizing VMAT. PET/CT May 29, 2018 persistent uptake in the right paratracheal mass and suspicious changes for progression. Plan for systemic chemotherapy with irinotecan and Erbitux" On 11/02/17 11:11 Meaghan Alves wrote "Adenocarcinoma of the colon with lung metastasis diagnosed in 2007 Status post right lobectomy 07/10/2008 Status post colonoscopy and biopsy 09/18/2008 revealing the colon lesion. Status post resection. This was followed by chemotherapy. Status post left upper lobe wedge resection 08/24/2011 due to metastasis Status post stereotactic radiation therapy in 2011 Completed chemotherapy in 2014 Status post wedge resection with Dr. navarrete 2015 Status post hypo-fractionated radiation therapy in 2015 PET/CT 08/24/2017 revealing metabolic activity of the right hilum. Status post completion of radiation therapy 10/24/2017 utilizing VMAT." On 09/13/17 09:28 Meaghan Alves wrote "Adenocarcinoma of the colon with lung metastasis diagnosed in 2007 Status post right lobectomy 07/10/2008 Status post colonoscopy and biopsy 09/18/2008 revealing the colon lesion. Status post resection. This was followed by chemotherapy. Status post left upper lobe wedge resection 08/24/2011 due to metastasis Status post stereotactic radiation therapy in 2011 Completed chemotherapy in 2014 Status post wedge resection with Dr. navarrete 2015 Status post hypo-fractionated radiation therapy in 2015 PET/CT 08/24/2017 revealing metabolic activity of the right hilum." Diverticulosis of colon (Chronic) DVT (deep venous thrombosis) (Resolved) DVT, lower extremity (Resolved) Elevated lactic acid level (Resolved) Encounter for chemotherapy management Genital herpes (Resolved) History of chemotherapy (Chronic) History of pulmonary embolus (PE) (Chronic) History of radiation therapy HLD (hyperlipidemia) Hx of gallstones Hypophosphatemia (Resolved) Infection due to Port-A-Cath (Resolved) Neutropenia New onset seizure (Resolved) Pulmonary embolism (Resolved) Radiation pneumonitis (Resolved) Seizures due to metabolic disorder (Resolved) Septicemia due to coagulase-negative staphylococcal infection (Resolved) SIRS (systemic inflammatory response syndrome) (Resolved) Surgical History H/O: hysterectomy History of colon surgery History of lung surgery History of tonsillectomy Family History Mother , early 80s of thyroid cancer Thyroid cancer Father , age 81 of gangrene complications No problems noted. 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 drives. Review of Systems See HPI for pertinent positives & negatives. and A total of 10 systems reviewed and were otherwise negative Physical Exam Vital Signs Vital Signs - 24 hr 12/18/19 11:12 12/18/19 11:14 12/18/19 11:15 Temperature Temperature Source Pulse Rate 110 H 94 H 105 H Pulse Rate from SpO2 Sensor 100 H 94 H Pulse Rhythm Pulse Strength Respiratory Rate 26 H 25 H 18 Respiratory Effort / Characteristics Respiratory Depth Respiratory Pattern Blood Pressure 161/108 H 148/91 H Blood Pressure Mean 132 107 Blood Pressure Position Pulse Oximetry 100 100 Oxygen Delivery Method Oxygen Flow Rate Sepsis Recent Fever Within 48 Hours Sepsis Action Taken by Nursing 12/18/19 11:16 12/18/19 11:23 12/18/19 11:30 Temperature 36.5 C Temperature Source Oral Pulse Rate 103 H 101 H Pulse Rate from SpO2 Sensor 103 H Pulse Rhythm Regular Pulse Strength Normal Respiratory Rate 28 H 24 Respiratory Effort / Characteristics Labored Respiratory Depth Normal Respiratory Pattern Tachypnea Blood Pressure 148/91 H Blood Pressure Mean 110 Blood Pressure Position Sitting Pulse Oximetry 98 98 Oxygen Delivery Method Oxymask Oxymask Oxygen Flow Rate 5 5 Sepsis Recent Fever Within 48 Hours No Sepsis Action Taken by Nursing No Action Required 12/18/19 11:31 12/18/19 11:45 12/18/19 12:00 Temperature Temperature Source Pulse Rate 93 H 106 H 98 H Pulse Rate from SpO2 Sensor 96 H 100 H Pulse Rhythm Regular Pulse Strength Respiratory Rate 23 24 20 Respiratory Effort / Characteristics Respiratory Depth Respiratory Pattern Blood Pressure 117/83 Blood Pressure Mean 88 Blood Pressure Position Pulse Oximetry 95 95 96 Oxygen Delivery Method Room Air Oxygen Flow Rate Sepsis Recent Fever Within 48 Hours Sepsis Action Taken by Nursing 12/18/19 12:01 12/18/19 12:50 12/18/19 12:51 Temperature Temperature Source Pulse Rate 104 H 105 H 101 H Pulse Rate from SpO2 Sensor 98 H 105 H Pulse Rhythm Pulse Strength Respiratory Rate 22 23 22 Respiratory Effort / Characteristics Respiratory Depth Respiratory Pattern Blood Pressure 115/94 117/72 Blood Pressure Mean 100 97 Blood Pressure Position Pulse Oximetry 95 93 Oxygen Delivery Method Oxygen Flow Rate Sepsis Recent Fever Within 48 Hours Sepsis Action Taken by Nursing 12/18/19 13:00 12/18/19 13:01 12/18/19 13:30 Temperature Temperature Source Pulse Rate 105 H 108 H 107 H Pulse Rate from SpO2 Sensor 104 H 101 H 106 H Pulse Rhythm Pulse Strength Respiratory Rate 31 H 20 19 Respiratory Effort / Characteristics Respiratory Depth Respiratory Pattern Blood Pressure 129/68 133/71 Blood Pressure Mean 96 107 Blood Pressure Position Pulse Oximetry 91 92 92 Oxygen Delivery Method Oxygen Flow Rate Sepsis Recent Fever Within 48 Hours Sepsis Action Taken by Nursing 12/18/19 13:31 Temperature Temperature Source Pulse Rate 104 H Pulse Rate from SpO2 Sensor 103 H Pulse Rhythm Pulse Strength Respiratory Rate 24 Respiratory Effort / Characteristics Respiratory Depth Respiratory Pattern Blood Pressure Blood Pressure Mean Blood Pressure Position Pulse Oximetry 93 Oxygen Delivery Method Oxygen Flow Rate Sepsis Recent Fever Within 48 Hours Sepsis Action Taken by Nursing GENERAL: Patient is sitting up in bed. Chronically ill appearing. Wearing hospital gown. Right chest port access. EYE EXAM: normal conjunctiva, PERRL and EOM's intact OROPHARYNX: no exudate, no erythema, lips, buccal mucosa, and tongue normal and mucous membranes are moist NECK: supple, no nuchal rigidity, no adenopathy, non-tender LUNGS: Clear to auscultation. Normal chest wall mechanics HEART: no murmurs, S1 normal and S2 normal ABDOMEN: abdomen soft, non-tender, normo-active bowel sounds, no masses, no rebound or guarding. BACK: Back is symmetrical on inspection and there is no deformity, no midline tenderness, no CVA tenderness. SKIN: no rashes and no bruising UPPER EXTREMITIES: upper extremities are grossly normal. LOWER EXTREMITIES: No pitting edema. NEURO EXAM: Normal sensorium, cranial nerves II-XII intact, normal speech, no weakness of arms, no weakness of legs. No drift. Finger to nose intact. Gross sensation intact. Course Course ED COURSE: Vital signs were reviewed and showed hypertension and tachycardia. The patients medical record was reviewed The above diagnostic studies were performed and reviewed. ED treatments and interventions as stated above. 1124: The patient was evaluated in room C10. A complete history and physical examination was performed. 1300: I updated the patient at this time who reports that she feels much better. Her nausea is gone. 1304: I discussed the patients case with Dr. Ramirez oncologist who recommends that the patient stay in the hospital. 1310: I discussed the patients case with Dr. Hailey HILL hospitalist. She will evaluate the patient for further management. 1315: Upon reevaluation, I discussed my findings with the patient and she understands and agrees with the treatment plan. Based on the patients age, coexisting illnesses, exam and lab findings the decision to treat as an inpatient was made. The patient remained stable while under my care. The patient will be evaluated for further management. Administered Medications Discontinued Medications Sodium Chloride (Nss) 500 mls @ 999 mls/hr IV .Q31M JAMIN Stop: 12/18/19 12:00 Last Infusion: 12/18/19 12:51 Dose: 0 mls/hr Documented by: [id number] Admin: 12/18/19 11:51 Dose: 999 mls/hr Documented by: [id number] Meclizine HCl (Antivert) 25 mg PO NOW STA Stop: 12/18/19 13:04 Last Admin: 12/18/19 13:34 Dose: 25 mg Documented by: [id number] Ondansetron HCl (Zofran) 4 mg IV NOW STA Stop: 12/18/19 11:29 Last Admin: 12/18/19 13:02 Dose: Not Given Documented by: [id number] Medical Decision Making Differential Diagnosis Differential diagnosis includes etiologies such as benign positional vertigo, dehydration, hypovolemia, anemia, tumor, infection, hypoglycemia, electrolyte abnormalities, cardiac sources, intracerebral event, toxicologic, neurologic, as well as others were entertained. Medical Records Attestation: I reviewed the patient's medical records. Home Medications Current Medication List: was personally reviewed by me Laboratory Data Attestation: I reviewed the patient's lab results. Result diagrams: 12/18/19 11:40 12/18/19 11:40 Lab Results 12/18/19 12/18/19 12/18/19 Range/Units 11:40 11:40 11:40 WBC 9.81 (4.8-10.8) K/uL RBC 3.02 L (4.2-5.4) M/uL Hgb 10.1 L (12.0-16.0) g/dL Hct 32.6 L (37-47) % MCV 107.9 H (80-100) fL MCH 33.4 (25-34) pg MCHC 31.0 L (32-36) g/dL RDW Std Deviation 91.1 H (36.4-46.3) fL RDW Coeff of Marcell 23.2 H (11.5-14.5) % Plt Count 88 L (130-400) K/uL MPV 9.3 (7.4-10.4) fL Immature Gran % (Auto) 0.6 % Neut % (Auto) 97.5 % Lymph % (Auto) 1.3 % Reynolds % (Auto) 0.5 % Eos % (Auto) 0.1 % Baso % (Auto) 0.0 % Immature Gran # (Auto) 0.06 H (0.00-0.02) K/uL Neut # (Auto) 9.56 H (1.4-6.5) K/uL Lymph # (Auto) 0.13 L (1.2-3.4) K/uL Reynolds # (Auto) 0.05 L (0.11-0.59) K/uL Eos # (Auto) 0.01 (0-0.5) K/uL Baso # (Auto) 0.00 (0-0.2) K/uL Platelet Estimate Decreased L (Normal) Polychromasia 1+ Ovalocytes 1+ PT 10.5 (9.0-12.0) Seconds INR 1.0 (0.9-1.1) Sodium 141 (136-145) mmol/L Potassium 4.5 (3.5-5.1) mmol/L Chloride 108 H (98-107) mmol/L Carbon Dioxide 27 (21-32) mmol/L Anion Gap 6.0 (3-11) BUN 20 H (7-18) mg/dl Creatinine 1.34 H (0.6-1.2) mg/dl Est Cr Clr Drug Dosing 55.4 ml/min Est GFR ( Amer) 47.4 Est GFR (Non-Af Amer) 40.9 BUN/Creatinine Ratio 14.7 (10-20) Glucose 130 H (70-99) mg/dl Calcium 8.7 (8.5-10.1) mg/dl Total Bilirubin 1.0 D (0.2-1) mg/dl AST 35 (15-37) U/L ALT 31 (12-78) U/L Alkaline Phosphatase 102 (45-117) U/L Troponin I < 0.015 (0-0.045) ng/ml Total Protein 6.5 (6.4-8.2) gm/dl Albumin 3.1 L (3.4-5.0) gm/dl Globulin 3.4 (2.5-4.0) gm/dl Albumin/Globulin Ratio 0.9 (0.9-2) Imaging Data Radiologist's Impression: Radiology results as stated below per my review and the radiologist's interpretation: CT head/brain wo con CLINICAL HISTORY: 69 years-old Female presenting with lightheaded. TECHNIQUE: Multidetector CT imaging of the head was performed without the use of intravenous contrast. IV contrast: None. One or more dose lowering techniques were used consistent with the principles of ALARA (as low as reasonably achievable), including automatic exposure control, mA or kV adjustment to individual patient size, and/or use of iterative reconstruction. COMPARISON: 02/10/2019 and brain MR from 03/26/2019. CT DOSE (mGy.cm): The estimated cumulative dose is 800.40 mGycm. FINDINGS: Slip Cover Maker topogram: Unremarkable. Ventricles and sulci normal in size. No hemorrhage. Brain parenchyma normal in appearance with preserved clements-white differentiation. No acute territorial infarct. No mass effect or midline shift. No extra-axial fluid collection. Paranasal sinuses and mastoid air cells clear. Calvarium intact. IMPRESSION: 1. No acute intracranial abnormality. ACT 112: Negative or not required by law. Electronically signed by: Joe Botello M.D. 12/18/2019 12:50 PM XR chest 1V portable CLINICAL HISTORY: 69 years-old Female presenting with dizzy. TECHNIQUE: Portable upright AP view of the chest was obtained. COMPARISON: 11/02/2019. FINDINGS: Right internal jugular Mediport terminates in the SVC. Cardiac silhouette mildly enlarged. Redemonstration of the dense right perihilar opacity. Persistent elevation of the right hemidiaphragm. Right pleural thickening and architectural distortion of the right lung base suspected. Left lung and pleural space clear. No pneumothorax. Osseous structures normal. Upper abdomen normal. IMPRESSION: 1. Stable examination. 2. Chronic right perihilar consolidation and chronic changes of the right zhane thorax and right lung. 3. Mild cardiomegaly. ACT 112: Negative or not required by law. Electronically signed by: Joe Botello M.D. 12/18/2019 12:00 PM ECG Data Attestation: I personally reviewed and interpreted this ECG as follows: Indication: + nausea and + other (dizziness, allergic reaction) Rate (beats per minute): 99 Rhythm: + sinus rhythm ECG Intervals/blocks: + Normal QT-c ECG [place]: + Normal ECG Findings: no PVCs Blood Pressure Blood Pressure Findings: Elevated blood pressure Blood Pressure Disposition: further management by hospitalist RUSSELL Narrative Patient is a 69-year-old female that presents the ER brought over from the hematology oncology clinic following receiving chemo and becoming hypotensive, hypoxic and weak. She notes that she felt lightheaded and dizzy. Patient was given Solu-Medrol as well as Benadryl along with aggressive IV hydration and brought over to the ER. IV was established blood work was obtained showed no significant leukocytosis but a mild anemia. Thrombocytopenia at 88 which I do believe is consistent with chemotherapy. Consistent with previous as well. INR was unremarkable. BMP along with LFTs bilirubin troponin was unremarkable. EKG was nondiagnostic. CT head as well as chest x-ray showed no acute pathology. Patient was given IV fluids. She was given Zofran and Antivert. She had improvement of her symptoms. Still fairly dizzy with movement. Discussed with Dr. solano from hematology oncology and would prefer that she would be observed as he notes she is fairly fragile and was fairly significantly hypotensive in the 70s with pulse ox in the 80s. Patient does have a history of previous DVTs and PEs but has been on NOAC and not missed any doses. There is a possibility of failure in someone with cancer taking NOAC but patient denies any chest pain or shortness of breath. Will not CT PE at this time as she is not hypoxic and has no respiratory or chest symptoms to suggest PE. Discussed with Pt concerning signs and symptoms to watch out for. Pt was instructed to follow up with their PCP and discussed with the patient their option to return to the ED at anytime for persistent or worsening symptoms. The appropriate anticipatory guidance and out-patient management, including indications for return to the emergency department, were explained at length to the patient and understood. Impression & Plan Allergic reaction, Dizziness, Hypotension, Hypoxia Discharge Plan Visit Data Chief Complaint: Allergic Reaction ED Provider: Alex Fernando Discharge Problem: Allergic reaction, Dizziness, Hypotension, Hypoxia Patient Disposition: Being Evaluated by Hospitalist Forms Stand Alone Forms: [facility] Prescriptions Prescriptions: No Action potassium chloride 20 mEq tablet,ER particles/crystals 20 meq PO BID Qty: 60 RF: 1 beclomethasone dipropionate 80 mcg/actuation HFA aerosol breath activated 2 puffs Inhalation BID Qty: 34.8 RF: 1 magnesium oxide 400 mg magnesium capsule 800 mg PO BID RF: 0 (DME) Oxygen Home Liters Per Minute See Dose Instructions .ROUTE .MEDSUPPLY Qty: 1 RF: 0 loperamide 2 mg tablet 2 mg PO QAM RF: 0 apixaban 5 mg tablet 5 mg PO BID RF: 0 sertraline 50 mg tablet 50 mg PO HS RF: 0 simvastatin 40 mg tablet 40 mg PO QPM RF: 0 multivitamin Tablet 1 tab PO QAM RF: 0 albuterol sulfate 90 mcg/actuation HFA aerosol inhaler 2 puff Inhalation Q6 PRN (Reason: Shortness Of Breath Or Wheezing) RF: 0 [id number] C-Mn [Glucosamine Chondroitin MaxStr] 500-400 mg Capsule 1 cap PO BID RF: 0 metoprolol tartrate 50 mg tablet 75 mg PO BID Qty: 90 RF: 2 aspirin 81 mg Tablet,Delayed Release (Dr/Ec) 81 mg PO HS RF: 0 ascorbic acid (vitamin C) [Vitamin C] 500 mg Tablet 500 mg PO BID RF: 0 cholecalciferol (vitamin D3) [Vitamin D3] 1,000 unit Tablet,Chewable 1,000 unit PO QAM RF: 0 Folfox Chemotherapy 1 applic IV UD RF: 0 levothyroxine 137 mcg tablet 137 mcg PO QAM RF: 0 omeprazole 40 mg capsule,delayed release(DR/EC) 40 mg PO QAM RF: 0 colestipol [Colestid] 1 gram tablet 1 g PO QDD RF: 0 ipratropium-albuterol 0.5 mg-3 mg(2.5 mg base)/3 mL solution for nebulization 3 ml INHALATION Q4H PRN (Reason: Shortness Of Breath Or Wheezing) RF: 0 Referrals Referrals: Raimundo Garcia MD [Primary Care Provider] - Discharge Problem: Allergic reaction Qualifiers: Encounter type: initial encounter Qualified Code(s): T78.40XA - Allergy, unspecified, initial encounter Hypotension Qualifiers: Hypotension type: unspecified hypotension type Qualified Code(s): I95.9 - Hypotension, unspecified The scribe's documentation has been prepared under my direction and personally reviewed by me in its entirety. I confirm that the note above accurately reflects all work, treatment, procedures, and medical decision making performed by me.
[2019-12-18] MEDS ORDERED: MECLIZINE HCL 25 MG TAB PO STA (13:03)
[2019-12-18] MEDS ORDERED: POLYETHYLENE (MIRALAX) 17 GM PACK PO PRN (14:05)
[2019-12-18] MEDS ORDERED: MAGNESIUM HYDROXIDE SUSP 30 ML UDC PO PRN (14:05)
[2019-12-18] MEDS ORDERED: ACETAMINOPHEN 325 MG TAB PO PRN (14:05)
[2019-12-18] MEDS ORDERED: ALUMINUM/MAGNESIUM SUSP 30 ML UDC PO PRN (14:05)
[2019-12-18] MEDS ORDERED: ONDANSETRON INJ 2 MG/ML 2 ML VIAL IV PRN (14:05)
[2019-12-18] MEDS ORDERED: OXYCODONE/ACETAMINOPHEN 5mg/325mg TAB PO PRN (14:15)
[2019-12-18] MEDS ORDERED: PROMETHAZINE HCL 25 MG in SODIUM CHLORIDE 0.9% 50 ML IV PRN (14:15)
--- NOTE | 2019-12-18 14:33 | History & Physical Report ---
Date of Service December 18, 2019 Assessment & Plan (1) Chemotherapy adverse reaction: Admit to [facility] on telemetry. Vital signs every 4 hours. Monitor electrolytes and replenish as needed. Anti-nausea medication with Zofran and Phenergan as needed. Keep n.p.o. while patient is nauseated. Gentle IV fluid hydration. Advance diet as tolerated when patient feels better and able to eat to GI soft. DVT prophylaxis with apixaban/which she is already on. Patient is a full code Present on Admission?: Yes (2) HLD (hyperlipidemia): Lipid panel pending. Continue simvastatin 40 mg p.o. every afternoon. Present on Admission?: Yes (3) Colon cancer metastasized to lung: Continue monitoring. Contact Dr. Ramirez in regard to follow-up. Present on Admission?: Yes (4) Essential hypertension: Patient was initially hypotensive. Continue monitoring. Continue aspirin 81 mg p.o. nightly. Continue metoprolol tartrate 75 mg p.o. twice daily. Hold metoprolol if systolic blood pressure less than 90 and diastolic less than 60. Continue potassium chloride 20mEq p.o. twice daily. Continue multivitamin 1 tablet p.o. every morning. Continue magnesium oxide 800 mg p.o. twice daily. Vitamin C 500 p.o. twice daily. Present on Admission?: Yes (5) Anxiety: Continue home medicine sertraline 50 mg p.o. nightly. (6) COPD (chronic obstructive pulmonary disease): Continue home inhalers beclomethasone bupropion 880 MCG's HFA 2 puffs twice daily, ipratropium albuterol 3 mils inhalation every 4 hours as needed. History of Present Illness Chief Complaint: Adverse reaction to chemotherapy Primary Care Provider: Bacilio Garcia MD The patient is a 69 years old female with past medical history of colon cancer metastasized to lung deep and no still boluses and apixaban, gastroesophageal reflux disease, hyperlipidemia, essential hypertension, hypothyroidism, who presents to the emergency room after she was seen this morning at cancer center to receive chemotherapy, when she suddenly became lightheaded and nauseated. She stated that she told she was going to lose consciousness but she did not. Patient noted that she had an episode of double vision and has since resolved upon arriving to the [facility] emergency department. Patient added that she never experienced similar symptoms before while she was receiving chemotherapy. The patient reports that she is receiving treatment for colorectal cancer that metastasized to her lungs. Patient regularly sees Dr. Ramirez oncologist at the cancer center [facility]. Patient chemotherapy is consistent with FOLFOX. Patient explained that she received Benadryl, Solu-Medrol, Zofran and IV fluids with supplemental oxygen at [facility]. Patient usually does not use supplemental oxygen at home except for CPAP machine at night. Patient denies fever, chills, chest pain, shortness of breath, abdominal pain, frequency, urgency. Labs are reviewed: Sodium 141, potassium 4.5, chloride 108, anion gap 6, BUN 20, creatinine 1.34 and baseline creatinine is 1.09. GFR of 40.9 and baseline is 52.7, calcium of 8.7, glucose of 130, magnesium of 2, AST 35, ALT 31, alkaline phosphatase 102, troponin 0.015, total protein of 6.5, albumin 3.1, globulin 3.4. WBC is 9.81, hemoglobin 10.1, hematocrit 32.6, platelets 88, PT 10.5, INR 1. Urine pending. Chest x-rays stable examination. Chronic right perihilar consolidation with chronic changes of the right hemithorax and right lung. Mild cardiomegaly. CT of the head shows no acute intracranial abnormality. Ventricles and sulci normal in size. No hemorrhage. Brain parenchyma normal in appearance with preserved clements-white differentiation. No acute territorial infarct. No mass affect or midline shift. No extra-axial fluid collection. Paranasal sinuses and mastoid air cells are clear. Calvarium intact. Decision was made to admit patient to [facility] on telemetry for further evaluation and treatment of adverse reaction to FOLFOX and nausea vomiting and abdominal dis comfort that patient has experienced during this episode. Allergies Allergy/AdvReac Type Severity Reaction Status Date / Time thiopental Allergy Unknown INCREASED Verified 12/18/19 12:18 BLEEDING WITH WISDOM TEETH SURG meperidine AdvReac Mild N/V Verified 12/18/19 12:18 morphine AdvReac Mild N/V Verified 12/18/19 12:18 Home Medications Home Medications Medication Instructions Recorded Confirmed Type albuterol sulfate 2 puff INHALATION Q6 PRN 08/07/18 12/18/19 History apixaban 5 mg PO BID 08/07/18 12/18/19 History [id number] C-Mn 1 cap PO BID 08/07/18 12/18/19 History [Glucosamine Chondroitin MaxStr] multivitamin 1 tab PO QAM 08/07/18 12/18/19 History sertraline 50 mg PO HS 08/07/18 12/18/19 History simvastatin 40 mg PO QPM 08/07/18 12/18/19 History metoprolol tartrate 75 mg PO BID #90 tab 02/08/19 12/18/19 Rx Oxygen Home #1 ea 06/05/19 11/05/19 History magnesium oxide 800 mg PO BID cap 06/05/19 12/18/19 History potassium chloride 20 mEq 20 meq PO BID #60 tab 10/08/19 12/18/19 Rx tablet,extended release(part/cryst) loperamide 2 mg tablet 2 mg PO QAM tab 10/29/19 12/18/19 History Folfox Chemotherapy 1 applic IV UD 11/02/19 12/18/19 History ascorbic acid (vitamin C) [Vitamin 500 mg PO BID 11/02/19 12/18/19 History C] aspirin 81 mg PO HS 11/02/19 12/18/19 History cholecalciferol (vitamin D3) 1,000 unit PO QAM 11/02/19 12/18/19 History [Vitamin D3] colestipol [Colestid] 1 g PO QDD 11/02/19 12/18/19 History levothyroxine 137 mcg PO QAM 11/02/19 12/18/19 History omeprazole 40 mg PO QAM 11/02/19 12/18/19 History beclomethasone dipropionate 80 2 puffs INHALATION BID #34.8 gm 11/07/19 12/18/19 Rx mcg/actuation HFA breath activated aerosol ipratropium-albuterol 3 ml INHALATION Q4H PRN 12/18/19 12/18/19 History Past Med/Surg History Medical History Bacteremia (Resolved) Bilateral pulmonary embolism (Resolved) Candidiasis of intestine (Resolved) Colon cancer metastasized to lung (Chronic 09/18/08) "Adenocarcinoma of the colon with lung metastasis diagnosed in 2007 Status post right lobectomy 07/10/2008 Status post colonoscopy and biopsy 09/18/2008 revealing the colon lesion. Status post resection. This was followed by chemotherapy. Status post left upper lobe wedge resection 08/24/2011 due to metastasis Status post stereotactic radiation therapy in 2011 Completed chemotherapy in 2014 Status post wedge resection with Dr. navarrete 2015 Status post hypo-fractionated radiation therapy in 2016 PET/CT 08/24/2017 revealing metabolic activity of the right hilum. Status post completion of radiation therapy 10/24/2017 utilizing VMAT. PET/CT May 29, 2018 persistent uptake in the right paratracheal mass and suspicious changes for progression. Plan for systemic chemotherapy with irinotecan and Erbitux" On 11/02/17 11:11 Meaghan Alves wrote "Adenocarcinoma of the colon with lung metastasis diagnosed in 2007 Status post right lobectomy 07/10/2008 Status post colonoscopy and biopsy 09/18/2008 revealing the colon lesion. Status post resection. This was followed by chemotherapy. Status post left upper lobe wedge resection 08/24/2011 due to metastasis Status post stereotactic radiation therapy in 2011 Completed chemotherapy in 2014 Status post wedge resection with Dr. navarrete 2015 Status post hypo-fractionated radiation therapy in 2015 PET/CT 08/24/2017 revealing metabolic activity of the right hilum. Status post completion of radiation therapy 10/24/2017 utilizing VMAT." On 09/13/17 09:28 Meaghan Alves wrote "Adenocarcinoma of the colon with lung metastasis diagnosed in 2007 Status post right lobectomy 07/10/2008 Status post colonoscopy and biopsy 09/18/2008 revealing the colon lesion. Status post resection. This was followed by chemotherapy. Status post left upper lobe wedge resection 08/24/2011 due to metastasis Status post stereotactic radiation therapy in 2011 Completed chemotherapy in 2014 Status post wedge resection with Dr. navarrete 2016 Status post hypo-fractionated radiation therapy in 2015 PET/CT 08/24/2017 revealing metabolic activity of the right hilum." Diverticulosis of colon (Chronic) DVT (deep venous thrombosis) (Resolved) DVT, lower extremity (Resolved) Elevated lactic acid level (Resolved) Encounter for chemotherapy management Genital herpes (Resolved) History of chemotherapy (Chronic) History of pulmonary embolus (PE) (Chronic) History of radiation therapy HLD (hyperlipidemia) Hx of gallstones Hypophosphatemia (Resolved) Infection due to Port-A-Cath (Resolved) Neutropenia New onset seizure (Resolved) Pulmonary embolism (Resolved) Radiation pneumonitis (Resolved) Seizures due to metabolic disorder (Resolved) Septicemia due to coagulase-negative staphylococcal infection (Resolved) SIRS (systemic inflammatory response syndrome) (Resolved) Surgical History H/O: hysterectomy History of colon surgery History of lung surgery History of tonsillectomy Family History Mother , early 80s of thyroid cancer Thyroid cancer Father , age 81 of gangrene complications No problems noted. 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 drives. Review of Systems Review of Systems: All systems reviewed & are unremarkable except as noted in HPI & below Physical Exam Constitutional: WD/WN, vitals as above well developed and + morbidly obese Eyes: PERRL, conjunctivae normal, anicteric sclerae ENMT: external ear and nose normal, oropharynx normal Neck: trachea midline, no thyromegaly Respiratory: normal respiratory effort, lungs clear to auscultation Cardiovascular: Heart Sounds: normal S1, normal S2 and + murmur Gastrointestinal (Abdomen): normal bowel sounds, soft, nontender, no hepato splenomegaly Musculoskeletal: no cyanosis or clubbing, extremities motor strength 5/5 Skin: no rashes, warm and dry Neurologic: patellar DTR's 2+ bilat, sensation intact Psychiatric: A+Ox3, euthymic affect Lymphatic: no cervical or axillary lymphadenopathy Results & Data Vital Signs (Past 12 Hours) Vital Signs Temp Pulse Resp BP Pulse Ox 12/18/19 13:31 104 H 24 93 12/18/19 13:30 107 H 19 133/71 92 12/18/19 13:01 108 H 20 92 12/18/19 13:00 105 H 31 H 129/68 91 12/18/19 12:51 101 H 22 117/72 93 12/18/19 12:50 105 H 23 12/18/19 12:01 104 H 22 115/94 95 12/18/19 12:00 98 H 20 96 12/18/19 11:45 106 H 24 95 12/18/19 11:31 93 H 23 117/83 95 12/18/19 11:30 101 H 24 12/18/19 11:23 98 12/18/19 11:16 36.5 C 103 H 28 H 148/91 H 98 12/18/19 11:15 105 H 18 100 12/18/19 11:14 94 H 25 H 148/91 H 100 12/18/19 11:12 110 H 26 H 161/108 H Code Status & VTE Plan Code Status Full code VTE Prophylaxis Plan VTE Prophylaxis will be ordered: Yes PG Care Time/CCT Total # of Minutes Spent Total Time Spent with Patient: Total time spent is greater than 50% in coordination of care (as documented) at patient's floor/unit and/or counseling patient: (1) HLD (hyperlipidemia) Hyperlipidemia type: mixed hyperlipidemia Qualified Code(s): E78.2 - Mixed hyperlipidemia
[2019-12-18] MEDS ORDERED: ALBUT/IPRATROP 3MG/0.5MG NEB 3 ML VIAL INH PRN (17:06)
[2019-12-18] MEDS ORDERED: ALBUTEROL HFA 8 GM INHALER INH PRN (17:06)
[2019-12-18] MEDS: SODIUM CHLORIDE 0.9% 1000ML 1,000 ML IV SCH (17:19)
[2019-12-18] MEDS: ASPIRIN 81 MG ECTAB PO SCH (20:03)
[2019-12-18] MEDS: APIXABAN 5 MG TABLET PO SCH (20:04)
[2019-12-18] MEDS: METOPROLOL TARTRATE 25 MG TAB PO SCH (20:04)
[2019-12-18] MEDS: POTASSIUM CHLORIDE 20 MEQ TABCR PO SCH (20:04)
[2019-12-18] MEDS: SIMVASTATIN 40 MG TAB PO SCH (20:05)
[2019-12-18] MEDS: ASCORBIC ACID 500 MG TAB PO SCH (20:05)
[2019-12-18] MEDS: SERTRALINE HCL 50 MG TABLET PO SCH (20:06)
[2019-12-18] MEDS: FLUTICASONE FUROATE 200MCG 14 PUFFS/INHALER INH SCH (20:08)
[2019-12-18] MEDS: COLESTIPOL HCL 1 GM TAB PO SCH (21:05)
--- NOTE | 2019-12-18 23:00 | Electrocardiogram Report ---
Test Reason : Blood Pressure : / mmHG Vent. Rate : 099 BPM Atrial Rate : 099 BPM P-R Int : 164 ms QRS Dur : 082 ms QT Int : 338 ms P-R-T Axes : 011 060 055 degrees QTc Int : 433 ms Sinus rhythm with Premature atrial complexes Otherwise normal ECG When compared with ECG of 02-NOV-2019 13:43, Premature atrial complexes are now Present Confirmed by Albert Flor ([id number]) on 12/18/2019 11:00:20 PM Referred By: Malik Ramirez Confirmed By:Albert Flor
[2019-12-19] MEDS: SODIUM CHLORIDE 0.9% 1000ML 1,000 ML IV SCH ×2 (03:05→15:47)
[2019-12-19] MEDS ORDERED: HEPARIN 100 UNIT/ML 5ML FLUSH FLUSH PRN (03:22)
[2019-12-19] MEDS: LEVOTHYROXINE SODIUM 137 MCG TABLET PO SCH (06:29)
--- NOTE | 2019-12-19 06:43 | XRay Report ---
XR ankle LT 2V CLINICAL HISTORY: left ankle swelling pain COMPARISON: None. DISCUSSION: No acute fractures or dislocations are visualized. There is mild soft tissue swelling. Th ere is a tiny Achilles insertional spur. There are no erosive or destructive changes. IMPRESSION: No fractures or dislocations identified. ACT 112: Negative or not required by law. Electronically signed by: Gilson Cordero M.D. 12/19/2019 6:41 AM
[2019-12-19 07:50] LABS: Hemoglobin 8.6 g/dL (12.0-16.0); Mean Corpuscular Hgb Conc 31.9 g/dL (32-36); Mean Corpuscular Volume 106.7 fL (80-100); Mean Platelet Volume 9.7 fL (7.4-10.4); Platelet Count 85 K/uL (130-400); RDW Coefficient of Variation 23.2 % (11.5-14.5); RDW Standard Deviation 90.1 fL (36.4-46.3); Red Blood Count 2.53 M/uL (4.2-5.4); White Blood Count 22.04 K/uL (4.8-10.8)
[2019-12-19 08:12] LABS: Anisocytosis Present; Basophils # (auto) 0.01 K/uL (0-0.2); Immature Granulocytes # (auto) 0.08 K/uL (0.00-0.02); Immature Granulocytes % (auto) 0.4 %; Lymphocytes # (auto) 0.35 K/uL (1.2-3.4); Lymphocytes % (auto) 1.6 %; Macrocytosis Present; Monocytes # (auto) 0.57 K/uL (0.11-0.59); Monocytes % (auto) 2.6 %; Neutrophils # (auto) 21.03 K/uL (1.4-6.5); Neutrophils % (auto) 95.4 %; Ovalocytes 1+; Tear Drop Cells 2+
[2019-12-19 08:18] LABS: Albumin Level 3.1 gm/dl (3.4-5.0); BUN Creatinine Ratio 17.3 (10-20); Calcium 8.7 mg/dl (8.5-10.1); Creatinine Clr Calc Pharmacy 67.9 ml/min; Est GFR (African American) 61.5; Est GFR (Non-African American) 53.1; Potassium 4.2 mmol/L (3.5-5.1)
[2019-12-19 08:22] LABS: Estimated Average Glucose 105 mg/dl; Hemoglobin A1C 5.3 % (4.5-5.6)
[2019-12-19 08:23] LABS: Bilirubin,Total 0.4 mg/dl (0.2-1); Globulin 3.1 gm/dl (2.5-4.0); Total Protein 6.2 gm/dl (6.4-8.2)
[2019-12-19] MEDS: FLUTICASONE FUROATE 200MCG 14 PUFFS/INHALER INH SCH (08:26)
[2019-12-19] MEDS: MULTIVITAMIN TAB PO SCH (08:27)
[2019-12-19] MEDS: MAGNESIUM OXIDE 400 MG TAB PO SCH ×2 (08:27→21:06)
[2019-12-19] MEDS: METOPROLOL TARTRATE 25 MG TAB PO SCH ×2 (08:27→21:05)
[2019-12-19] MEDS: LOPERAMIDE HCL 2 MG CAP PO SCH (08:27)
[2019-12-19] MEDS: POTASSIUM CHLORIDE 20 MEQ TABCR PO SCH ×2 (08:28→21:05)
[2019-12-19] MEDS: CHOLECALCIFEROL 1,000 UNITS TAB PO SCH (08:28)
[2019-12-19] MEDS: APIXABAN 5 MG TABLET PO SCH ×2 (08:28→21:05)
[2019-12-19] MEDS: PANTOprazole 40 MG TAB PO SCH (08:28)
[2019-12-19] MEDS: ASCORBIC ACID 500 MG TAB PO SCH ×2 (08:28→21:07)
--- NOTE | 2019-12-19 11:39 | Hospitalist Progress Note ---
Date of Service December 19, 2019 Assessment & Plan (1) Chemotherapy adverse reaction: Anti-nausea medication with Zofran and Phenergan as needed. Gentle IV fluid hydration. Repeat labs am (2) HLD (hyperlipidemia): Lipid panel pending. Continue simvastatin 40 mg p.o. every afternoon. (3) Colon cancer metastasized to lung: Continue monitoring. Follow up with Dr. Ramirez (4) Edema of left ankle: Fluid collect left lateral malleolus, slightly tender Will obtain US of site (5) Thrombocytopenia: Thrombocytopenia 85,000 - looks like chronic thrombocytopenia likely seconary to chemo (6) Anemia: Chronic macrocytic anemia - today slightly lower than baseline 9-11 at 8.6 No s/s of bleeding Repeat am and check B12 and folate (7) Leukocytosis: WBCs 22 likely secondary to steroid administration during hypotensive event and stress of event itself. No obvious s/s of infection, afebrile repeat cbc am (8) Morbid obesity: Follow up with pcp (9) COPD (chronic obstructive pulmonary disease): Continue home inhalers beclomethasone bupropion 880 MCG's HFA 2 puffs twice daily, ipratropium albuterol 3 mils inhalation every 4 hours as needed. (10) Anxiety: Continue home medicine sertraline 50 mg p.o. nightly. (11) Essential hypertension: Patient was initially hypotensive, now resolved. Continue aspirin 81 mg p.o. nightly. Continue metoprolol with hold parameters (12) DVT prophylaxis: Heparin subq Subjective Ms. Bee continues to feel a little weak and tired but is much better than yesterday. No further dizziness or visual changes. ROS Constitutional: no chills, aches, sweats or fever Respiratory: no sob,cough, sputum, or wheezing Cardiac: no chest pain, palpitations, edema, orthopnea or lightheadedness GI: no abdominal pain, nausea, vomiting, diarrhea or constipation : no dysuria or hesitancy Extremities: no joint pain or weakness Skin: no rash All other systems reviewed and negative Physical Exam Physical Exam: General: no distress Eyes: normal inspection, PERLL Respiratory: chest non tender, clear to auscultation, normal breath sounds, no respiratory distress, no accessory muscle use Cardiac: regular rate and rhythm, no rub or gallop, no murmur, no edema, no jvd GI/: active bowel sounds, no abd pain or tenderness, soft, non distended Extremities: normal range of motion, normal strength, non tender, left ankle fluid collection/cyst Neuro/Psych: alert and oriented x 3, normal mood and affect, CN II -XII intact Skin: normal color, dry Results & Data Vital Signs (Past 12 Hours) Vital Signs Temp Pulse Pulse Resp BP Pulse Ox 12/19/19 11:34 36.9 C 83 16 117/72 95 12/19/19 07:56 79 12/19/19 07:02 36.7 C 82 20 131/77 97 12/19/19 04:00 36.7 C 86 20 109/70 97 PG Care Time/CCT Total # of Minutes Spent Total Time Spent with Patient: Total time spent is greater than 50% in coordination of care (as documented) at patient's floor/unit and/or counseling patient: (1) HLD (hyperlipidemia) Hyperlipidemia type: mixed hyperlipidemia Qualified Code(s): E78.2 - Mixed hyperlipidemia (2) Anemia Anemia type: unspecified type Qualified Code(s): D64.9 - Anemia, unspecified
[2019-12-19] MEDS: COLESTIPOL HCL 1 GM TAB PO SCH (15:52)
[2019-12-19] MEDS: ASPIRIN 81 MG ECTAB PO SCH (21:05)
[2019-12-19] MEDS: SERTRALINE HCL 50 MG TABLET PO SCH (21:07)
[2019-12-19] MEDS: SIMVASTATIN 40 MG TAB PO SCH (21:07)
--- NOTE | 2019-12-19 22:32 | Ultrasound Report ---
US extremity non-vascular ltd CLINICAL HISTORY: 69 years-old Female presenting with left ankle mass/cyst. TECHNIQUE: Real-time grayscale ultrasound imaging of the left ankle was performed for a focused evalu ation at the site of clinical concern. Color Doppler ultrasound imaging was also performed. COMPARISON: Plain radiographs of the left ankle performed yesterday. FINDINGS: Society of clinical concern along the lateral left ankle at the palpable abnormality, there is a mult ilobular ovoid isoechoic 5.7 x 1.6 x 2.8 cm mass. This demonstrates minimal internal vascularity. No peripheral hyperemia. There is also a focal heterogeneously hyperechoic slightly more superficial les ion measuring 0.9 x 0.5 x 0.8 cm immediately subjacent to the cutis. IMPRESSION: 1. Suspected lipoma at the site of clinical concern. 2. The smaller focus may represent an epidermal inclusion cyst. If there is been a history of trauma , this could represent fat necrosis, hematoma, or contusion. ACT 112: Negative or not required by law. Electronically signed by: Joe Botello M.D. 12/19/2019 10:31 PM
[2019-12-20] MEDS: SODIUM CHLORIDE 0.9% 1000ML 1,000 ML IV SCH (04:13)
[2019-12-20 06:34] LABS: Hematocrit (blood only) 26.5 % (37-47); Hemoglobin 8.2 g/dL (12.0-16.0); Mean Corpuscular Hemoglobin 33.7 pg (25-34); Mean Corpuscular Hgb Conc 30.9 g/dL (32-36); Mean Corpuscular Volume 109.1 fL (80-100); Mean Platelet Volume 10.1 fL (7.4-10.4); Platelet Count 91 K/uL (130-400); RDW Coefficient of Variation 23.9 % (11.5-14.5); RDW Standard Deviation 94.3 fL (36.4-46.3); Red Blood Count 2.43 M/uL (4.2-5.4); White Blood Count 11.82 K/uL (4.8-10.8)
[2019-12-20 06:48] LABS: Albumin Level 2.9 gm/dl (3.4-5.0); BUN Creatinine Ratio 19.1 (10-20); Calcium 8.4 mg/dl (8.5-10.1); Creatinine Clr Calc Pharmacy 66.2 ml/min; Est GFR (African American) 58.9; Est GFR (Non-African American) 50.8; Potassium 4.3 mmol/L (3.5-5.1)
[2019-12-20 06:51] LABS: Albumin Globulin Ratio 0.9 (0.9-2); Bilirubin,Total 0.3 mg/dl (0.2-1); Globulin 3.1 gm/dl (2.5-4.0)
[2019-12-20 06:58] LABS: Anisocytosis Present; Basophils # (auto) 0.01 K/uL (0-0.2); Basophils % (auto) 0.1 %; Eosinophils # (auto) 0.02 K/uL (0-0.5); Eosinophils % (auto) 0.2 %; Immature Granulocytes # (auto) 0.04 K/uL (0.00-0.02); Immature Granulocytes % (auto) 0.3 %; Lymphocytes % (auto) 7.6 %; Macrocytosis Present; Monocytes # (auto) 1.24 K/uL (0.11-0.59); Monocytes % (auto) 10.5 %; Neutrophils # (auto) 9.61 K/uL (1.4-6.5); Neutrophils % (auto) 81.3 %; Tear Drop Cells 1+
[2019-12-20 07:37] LABS: Vitamin B12 > 2000 pg/ml (211-911)
[2019-12-20 07:38] LABS: Folate (Folic Acid) > 24.00 ng/ml (>5.38)
[2019-12-20] MEDS: MULTIVITAMIN TAB PO SCH (08:10)
[2019-12-20] MEDS: CHOLECALCIFEROL 1,000 UNITS TAB PO SCH (08:11)
[2019-12-20] MEDS: PANTOprazole 40 MG TAB PO SCH (08:11)
[2019-12-20] MEDS: LOPERAMIDE HCL 2 MG CAP PO SCH (08:11)
[2019-12-20] MEDS: METOPROLOL TARTRATE 25 MG TAB PO SCH (08:11)
[2019-12-20] MEDS: ASCORBIC ACID 500 MG TAB PO SCH (08:12)
[2019-12-20] MEDS: APIXABAN 5 MG TABLET PO SCH (08:12)
[2019-12-20] MEDS: POTASSIUM CHLORIDE 20 MEQ TABCR PO SCH (08:12)
[2019-12-20] MEDS: FLUTICASONE FUROATE 200MCG 14 PUFFS/INHALER INH SCH (08:12)
[2019-12-20] MEDS: MAGNESIUM OXIDE 400 MG TAB PO SCH (08:13)
[2019-12-20] MEDS: LEVOTHYROXINE SODIUM 137 MCG TABLET PO SCH (10:23)
--- NOTE | 2019-12-20 12:47 | Discharge Summary ---
Date of Service December 20, 2019 Admission HPI Per Admitting Provider The patient is a 69 years old female with past medical history of colon cancer metastasized to lung deep and no still boluses and apixaban, gastroesophageal reflux disease, hyperlipidemia, essential hypertension, hypothyroidism, who presents to the emergency room after she was seen this morning at [facility] to receive chemotherapy, when she suddenly became lightheaded and nauseated. She stated that she told she was going to lose consciousness but she did not. Patient noted that she had an episode of double vision and has since resolved upon arriving to the [facility] emergency department. Patient added that she never experienced similar symptoms before while she was receiving chemotherapy. The patient reports that she is receiving treatment for colorectal cancer that metastasized to her lungs. Patient regularly sees Dr. Ramirez oncologist at the cancer center [facility]. Patient chemotherapy is consistent with FOLFOX. Patient explained that she received Benadryl, Solu-Medrol, Zofran and IV fluids with supplemental oxygen at [facility]. Patient usually does not use supplemental oxygen at home except for CPAP machine at night. Patient denies fever, chills, chest pain, shortness of breath, abdominal pain, frequency, urgency. Labs are reviewed: Sodium 141, potassium 4.5, chloride 108, anion gap 6, BUN 20, creatinine 1.34 and baseline creatinine is 1.09. GFR of 40.9 and baseline is 52.7, calcium of 8.7, glucose of 130, magnesium of 2, AST 35, ALT 31, alkaline phosphatase 102, troponin 0.015, total protein of 6.5, albumin 3.1, globulin 3.4. WBC is 9.81, hemoglobin 10.1, hematocrit 32.6, platelets 88, PT 10.5, INR 1. Urine pending. Chest x-rays stable examination. Chronic right perihilar consolidation with chronic changes of the right hemithorax and right lung. Mild cardiomegaly. CT of the head shows no acute intracranial abnormality. Ventricles and sulci normal in size. No hemorrhage. Brain parenchyma normal in appearance with preserved clements-white differentiation. No acute territorial infarct. No mass affect or midline shift. No extra-axial fluid collection. Paranasal sinuses and mastoid air cells are clear. Calvarium intact. Decision was made to admit patient to [facility] on telemetry for further evaluation and treatment of adverse reaction to FOLFOX and nausea vomiting and abdominal discomfort that patient has experienced during this episode. Principal Diagnosis Adverse reaction to chemotherapy Discharge Exam Constitutional WD/WN, vitals as above Respiratory normal respiratory effort, lungs clear to auscultation Cardiovascular RRR, no murmur, no edema Gastrointestinal (Abdomen) Inspection/Auscultation: abdomen normal to inspection and normal bowel sounds; abdomen not distended Percussion/Palpation: abdomen soft; abdomen nontender Musculoskeletal no cyanosis or clubbing, extremities motor strength 5/5 Skin no rashes, warm and dry Neurologic moves all extremities and awake Psychiatric A+Ox3, euthymic affect Discharge Data Allergies Allergy/AdvReac Type Severity Reaction Status Date / Time thiopental Allergy Unknown INCREASED Verified 12/18/19 12:18 BLEEDING WITH WISDOM TEETH SURG meperidine AdvReac Mild N/V Verified 12/18/19 12:18 morphine AdvReac Mild N/V Verified 12/18/19 12:18 Consultations 12/18/19 13:10 ED Decision to Admit Stat Ordered Studies 12/18/19 11:28 CT head/brain wo con Stat 12/19/19 15:14 US extremity non-vascular ltd Routine Hospital Course (1) Chemotherapy adverse reaction: Anti-nausea medication with Zofran and Phenergan as needed. Gentle IV fluid hydration. Patient denies any further symptoms - no visual changes, lightheadedness, hypotension has resolved. She has been up and around the room and feels she is at her baseline CT head normal, CXR with stable findings (2) HLD (hyperlipidemia): Lipid panel wnl. Continue simvastatin 40 mg p.o. every afternoon. (3) Colon cancer metastasized to lung: Continue monitoring. Follow up with Dr. Ramirez (4) Edema of left ankle: Fluid collect left lateral malleolus, slightly tender US showed lipoma with likely hematoma in the center. Ms. Bee said it was very ecchymotic at one point but she wasn't sure if she bumped it, however the ecchymosis has resolved and the swelling is improved today Ankle xray without fracture (5) Thrombocytopenia: Thrombocytopenia 90,000 - looks like chronic thrombocytopenia likely seconary to chemo (6) Anemia: Chronic macrocytic anemia - today slightly lower than baseline 9-11 at 8.2 - may be partially dilutional. No s/s of bleeding B12 and folate were above normal Repeat cbc on Tuesday and follow with oncology (7) Leukocytosis: WBCs 22 on admission likely secondary to steroid administration during hypotensive event and stress of event itself. No obvious s/s of infection, afebrile WBCs trending down now to 11 (8) Morbid obesity: Follow up with pcp (9) COPD (chronic obstructive pulmonary disease): Continue home inhalers beclomethasone bupropion 880 MCG's HFA 2 puffs twice daily, ipratropium albuterol 3 mils inhalation every 4 hours as needed. Continue home O2 (10) Anxiety: Continue home medicine sertraline 50 mg p.o. nightly. (11) Essential hypertension: Patient was initially hypotensive, now resolved. Continue aspirin 81 mg p.o. nightly. Continue metoprolol with hold parameters (12) DVT prophylaxis: Heparin subq while inpatient Total Time Total Time Spent Total Time Spent (In Minutes): greater than 30 minutes Discharge Plan Discharge Items Patient Disposition: Home - Home Health Services Reason For Visit: NAUSEA, VOMITING, ADVERSE REACTION TO CHEMOTHERAPY Discharge Diagnosis: adverse reaction to chemotherapy Activity: Resume your previous activity Activity Comment: gradually as tolerated Non-emergency contact: Primary Care Provider Call non-emergency contact if: you have any medication questions Follow-up/Referrals: Raimundo Garcia MD [Primary Care Provider] - 12/26/19 3:00 pm (Please, follow up at Dr. Garcia's office with Leanna Hardin PA-C on TuesdayDecember 26 at 3:00 pm. *If you need to change this appointment, call the office at [phone].) Gerri Harvey CRNP [Nurse Practitioner] - 01/01/20 8:30 am (Please, follow up at the Cancer Center on TuesdayJanuary 01 at 8:30 am with Gerri POWELL. Your appointment was moved up to 8:30 am so Gerri can see you, prior to the infusion. If you have any questions or need to reschedule this appointment, call the office at [phone].) Diet: Regular Ambulatory Orders: Complete Blood Count with Diff (Routine) Timeframe: [id number] Location: Determined by Patient Ordered By: Kristin Carpenter Attending Provider Instructions: (1) Chemotherapy adverse reaction: You were provided with fluids, benedryl and steroids with improvement. Your white blood cell count was elevated at the time of admission, likely due to steroid administration and is now coming back down. (2) Edema of left ankle: An ultrasound of your ankle was obtained and showed a lipoma which is a pocket of fatty tissues with possibly a small hematoma in the center. These findings are benign. You can follow up with your primary care provider. (3) Anemia: Your hemoglobin was 8.2 today which is on the low side and may be partly due to dilution because of fluids given. If you see any signs or symptoms of bleeding such as dark or tarry stools, blood in your urine or stool, excessive bruising, or little red spots all over your skin (petechiae) you should call your doctor right away or report to the emergency room. I will have you recheck your blood count on Tuesday. Please follow up on this result with your oncologist Please follow up with your oncologist next week Pending Studies at Discharge: No Stand-Alone Forms: My [facility], Smoking Cessation Medications and DC Order Prescriptions: Continued potassium chloride 20 mEq tablet,ER particles/crystals 20 meq PO BID Qty: 60 RF: 1 beclomethasone dipropionate 80 mcg/actuation HFA aerosol breath activated 2 puffs Inhalation BID Qty: 34.8 RF: 1 magnesium oxide 400 mg magnesium capsule 800 mg PO BID RF: 0 (DME) Oxygen Home Liters Per Minute See Dose Instructions .ROUTE .MEDSUPPLY Qty: 1 RF: 0 loperamide 2 mg tablet 2 mg PO QAM RF: 0 apixaban 5 mg tablet 5 mg PO BID RF: 0 sertraline 50 mg tablet 50 mg PO HS RF: 0 simvastatin 40 mg tablet 40 mg PO QPM RF: 0 multivitamin Tablet 1 tab PO QAM RF: 0 albuterol sulfate 90 mcg/actuation HFA aerosol inhaler 2 puff Inhalation Q6 PRN (Reason: Shortness Of Breath Or Wheezing) RF: 0 gulrshjshfi-hsfsdtxoy-arh C-Mn [Glucosamine Chondroitin MaxStr] 500-400 mg Capsule 1 cap PO BID RF: 0 metoprolol tartrate 50 mg tablet 75 mg PO BID Qty: 90 RF: 2 aspirin 81 mg Tablet,Delayed Release (Dr/Ec) 81 mg PO HS RF: 0 ascorbic acid (vitamin C) [Vitamin C] 500 mg Tablet 500 mg PO BID RF: 0 cholecalciferol (vitamin D3) [Vitamin D3] 1,000 unit Tablet,Chewable 1,000 unit PO QAM RF: 0 Folfox Chemotherapy 1 applic IV UD RF: 0 levothyroxine 137 mcg tablet 137 mcg PO QAM RF: 0 omeprazole 40 mg capsule,delayed release(DR/EC) 40 mg PO QAM RF: 0 colestipol [Colestid] 1 gram tablet 1 g PO QDD RF: 0 ipratropium-albuterol 0.5 mg-3 mg(2.5 mg base)/3 mL solution for nebulization 3 ml INHALATION Q4H PRN (Reason: Shortness Of Breath Or Wheezing) RF: 0 Discharge Orders: Discharge Order (Routine); Ordered 12/20/19 Ordered By: Kristin Kapadia Admission Data Admit Date/Time: 12/18/19 14:07 Attending Provider: Rikki Garay Admit Provider: Lola Hart Primary Care Provider: Raimundo Garcia Other Providers: Rikki Garay Other Interventions: Discharge Summary Assessment (RN) Last Done: 12/20/19 13:32 DC Date/Time DO NOT enter until pt leaves facility: 12/20/19 14:00 Supervising Physician Co-Signing Physician Notes I supervised Kristin Kapadia NP on this patient's care. I examined the patient today independently of her. I discussed the plan of care with her with the plan being as written in her note except for any following changes/exceptions: None. No nausea, diarrhea, vomiting. Feeling well. Coding Level of Care Code D/C Day Management >30 mins Diagnoses Chemotherapy adverse reaction T45.1X5A HLD (hyperlipidemia) E78.2 Hyperlipidemia type: mixed hyperlipidemia Colon cancer metastasized to lung C18.9; C78.00 Edema of left ankle M25.472 Thrombocytopenia D69.6 Anemia D64.9 Anemia type: unspecified type Leukocytosis D72.829 Morbid obesity E66.01 COPD (chronic obstructive pulmonary disease) J44.9 Anxiety F41.9 Essential hypertension I10 DVT prophylaxis Z29.9
== END 2019-12-20 14:00 | disposition home health service (06) | DRG 392 ==
LOC: ED 11:05 → 2W 14:07 → SUATTDRO 14:07 → 2W 17:00

== ENCOUNTER 2020-05-07 11:13 | Inpatient (IN) ==
[2020-05-07 12:02] LABS: Hematocrit (blood only) 27.3 % (37-47); Hemoglobin 8.8 g/dL (12.0-16.0); Mean Corpuscular Hemoglobin 34.6 pg (25-34); Mean Corpuscular Hgb Conc 32.2 g/dL (32-36); Mean Corpuscular Volume 107.5 fL (80-100); Mean Platelet Volume 11.2 fL (7.4-10.4); Platelet Count 123 K/uL (130-400); RDW Standard Deviation 71.8 fL (36.4-46.3); Red Blood Count 2.54 M/uL (4.2-5.4); White Blood Count 2.02 K/uL (4.8-10.8)
[2020-05-07 12:25] LABS: Albumin Level 3.1 gm/dl (3.4-5.0); BUN Creatinine Ratio 11.7 (10-20); Bilirubin Direct 0.1 mg/dl (0-0.2); Calcium 8.7 mg/dl (8.5-10.1); Creatinine Clr Calc Pharmacy 57.3 ml/min; Est GFR (African American) 52.6; Est GFR (Non-African American) 45.4
[2020-05-07 12:28] LABS: Bilirubin,Total 0.5 mg/dl (0.2-1); Total Protein 6.4 gm/dl (6.4-8.2)
[2020-05-07 12:31] LABS: Basophils # (auto) 0.01 K/uL (0-0.2); Basophils % (auto) 0.5 %; Eosinophils # (auto) 0.16 K/uL (0-0.5); Eosinophils % (auto) 7.9 %; Lymphocytes # (auto) 0.99 K/uL (1.2-3.4); Monocytes # (auto) 0.15 K/uL (0.11-0.59); Monocytes % (auto) 7.4 %; Neutrophils # (auto) 0.71 K/uL (1.4-6.5); Neutrophils % (auto) 35.2 %
[2020-05-07 12:32] LABS: Microcytosis Present; Schistocytes 1+
--- NOTE | 2020-05-07 12:52 | Ultrasound Report ---
ABDOMINAL ULTRASOUND, RIGHT UPPER QUADRANT HISTORY: Abnormal stress gallbladder on CT.. COMPARISON: Abdomen and pelvis CT 05/07/2020. FINDINGS: Pancreas: The pancreas demonstrates a normal echotexture. Liver: The liver is echogenic consistent with fatty change. No hepatic masses. The liver measures 21 cm in length. Gallbladder: Borderline gallbladder wall thickening which measures 3 mm. There is a 2 cm gallstone id entified. CBD: 5 mm. Right kidney: No hydronephrosis. IMPRESSION: 1. Borderline gallbladder wall thickening. There is a 2 cm gallstone. Clinical correlation recommende d to assess for a developing acute cholecystitis. 2. Normal caliber common bile duct. 3. Hepatomegaly demonstrating fatty change. ACT 112: Negative or not required by law. Electronically signed by: Norberto Pandya M.D. 05/07/2020 12:50 PM
[2020-05-07] MEDS ORDERED: metroNIDAZOLE 500 MG/100 ML BAG IV STA (12:57)
[2020-05-07] MEDS ORDERED: cefTRIAXone SODIUM 1,000 MG/50 ML BAG IV STA (12:57)
[2020-05-07 14:04] LABS: Appearance Urine Clear (Clear); Bilirubin Urine Negative (Negative); Blood Urine 2+ (Negative); Color Urine Yellow; Glucose Urine UA Negative (Negative); Ketones Urine Negative (Negative); Leukocyte Esterase Urine Negative (Negative); Nitrite Urine Negative (Negative); Protein Urine Negative (Negative); Specific Gravity Urine <= 1.005 (1.000-1.030); Urobilinogen Urine Negative (Negative)
[2020-05-07 14:11] LABS: RBC Urine 0-4 /hpf (0-4)
[2020-05-07 14:12] LABS: Bacteria Urine 1+ (Negative)
--- NOTE | 2020-05-07 15:25 | History & Physical Report ---
Date of Service May 07, 2020 Assessment & Plan (1) Cholecystitis: Suspected based on outpatient imaging and US here LFTs WNL Appreciate surgery consult and will get HIDA scan Continue ceftriaxone and metronidazole while awaiting HIDA scan NPO after midnight Slow IV fluids given history of diastolic heart failure (2) GERD (gastroesophageal reflux disease): Symptomatically she is mostly described reflux Add IV famotidine 20mg to her usual omeprazole regimen (switched to pantoprazole as per hospital formulary) (3) COPD (chronic obstructive pulmonary disease): Continue usual maintenance inhalers. No acute exacerbation (4) Sleep apnea: Patient to use her own CPAP with 2L O2 if able to bring in otherwise will set her up with CPAP here (5) Antineoplastic chemotherapy induced pancytopenia: Appears to be improving. Continue to trend. Isolation precautions for neutropenia. (6) Hypothyroid: TSH WNL in Nov Continue levothyroxine 137 mcg PO daily (7) Colon cancer metastasized to lung: Complex history since 2007 currently on chemotherapy. RUL nodule increased in size not discussed with patient. Follows with Dr Ramirez. (8) Port-A-Cath in place: noted (9) DVT prophylaxis: Continue apixaban 5mg PO BID Admission and Anticipated Discharge Date Admission Date: 05/07/20 History of Present Illness Chief Complaint: Abnormal outpatient scan Primary Care Provider: Bacilio Garcia MD Marie Bee is a 69 year old female with metastatic colon cancer to her lungs who presented to the ER after a routine outpatient CT was suggestive of cholecystitis. She is currently taking chemotherapy although I do not have up to date notes regarding her current regimen available at time of admission. In hindsight she does report 2 weeks of burning indigestion chest pain for which she has been taking tums for the last week with associated increased belching and nausea and vomiting. Initially she had blamed this on chemotherapy. It is worse with eating spicy and tomato containing foods. In addition she has been having occasional RUQ pain, lasting 30 minutes at a time although she has not associated this pain with eating. She denies any constipation or diarrhea. No eating much over the past 2 weeks due to the nausea and vomiting. Mostly peaches and pears. She is taking her omeprazole 40mg PO daily. No recent EGD. No fevers of chills, cough, acute shortness of breath, loss of taste of smell/taste. Although she does not slowly worsening shortness of breath over the last month with associated fatigue and occasional lightheadedness while walking (last three weeks). Uses a cane because of this. Allergies Allergy/AdvReac Type Severity Reaction Status Date / Time thiopental Allergy Unknown INCREASED Verified 05/07/20 11:52 BLEEDING WITH WISDOM TEETH SURG meperidine AdvReac Mild N/V Verified 05/07/20 11:52 morphine AdvReac Mild N/V Verified 05/07/20 11:52 oxaliplatin AdvReac Anaphylaxis Verified 05/08/20 00:41 Home Medications Home Medications Medication Instructions Recorded Confirmed Type albuterol sulfate 2 puff INHALATION Q6 PRN 08/07/18 05/07/20 History apixaban 5 mg PO BID 08/07/18 05/07/20 History lnifbmfucte-gxffsyrnl-nkm C-Mn 1 cap PO BID 08/07/18 05/07/20 History [Glucosamine Chondroitin MaxStr] multivitamin 1 tab PO QAM 08/07/18 05/07/20 History sertraline 50 mg PO HS 08/07/18 05/07/20 History simvastatin 40 mg PO QPM 08/07/18 05/07/20 History Oxygen Home #1 ea 06/05/19 12/31/19 History magnesium oxide 800 mg PO BID cap 06/05/19 05/07/20 History potassium chloride 20 mEq 20 meq PO BID #60 tab 10/08/19 05/07/20 Rx tablet,extended release(part/cryst) ascorbic acid (vitamin C) [Vitamin 500 mg PO BID 11/02/19 05/07/20 History C] aspirin 81 mg PO HS 11/02/19 05/07/20 History cholecalciferol (vitamin D3) 2,000 unit PO BID 11/02/19 05/07/20 History [Vitamin D3] colestipol [Colestid] 1 g PO QDD 11/02/19 05/07/20 History levothyroxine 137 mcg PO QAM 11/02/19 05/07/20 History beclomethasone dipropionate 80 2 puffs INHALATION BID #34.8 gm 11/07/19 05/07/20 Rx mcg/actuation HFA breath activated aerosol ipratropium-albuterol 3 ml INHALATION Q4H PRN 12/18/19 05/07/20 History metoprolol tartrate 50 mg tablet 50 mg PO TID #90 tab 12/31/19 05/07/20 Rx hydrocodone-acetaminophen [[place]] 1 tab PO Q8H PRN #15 tab 02/08/20 05/07/20 Rx magnesium amino acid chelate 200 mg PO UD 02/08/20 05/07/20 History turmeric root extract 500 mg PO HS 02/08/20 05/07/20 History nebulizers #1 ea 02/19/20 Rx nebulizer accessories #1 ea 02/26/20 Rx omeprazole 40 mg capsule,delayed 40 mg PO QAM #90 cap 03/06/20 05/07/20 Rx release Past Med/Surg History Medical History Bacteremia (Resolved) Bilateral pulmonary embolism (Resolved) Candidiasis of intestine (Resolved) Chemotherapy adverse reaction Colon cancer metastasized to lung (Chronic 09/18/08) "Adenocarcinoma of the colon with lung metastasis diagnosed in 2007 Status post right lobectomy 07/10/2008 Status post colonoscopy and biopsy 09/18/2008 revealing the colon lesion. Status post resection. This was followed by chemotherapy. Status post left upper lobe wedge resection 08/24/2011 due to metastasis Status post stereotactic radiation therapy in 2011 Completed chemotherapy in 2014 Status post wedge resection with Dr. navarrete 2015 Status post hypo-fractionated radiation therapy in 2016 PET/CT 08/24/2017 revealing metabolic activity of the right hilum. Status post completion of radiation therapy 10/24/2017 utilizing VMAT. PET/CT May 29, 2018 persistent uptake in the right paratracheal mass and suspicious changes for progression. Plan for systemic chemotherapy with irinotecan and Erbitux" On 11/02/17 11:11 Meaghan Alves wrote "Adenocarcinoma of the colon with lung metastasis diagnosed in 2007 Status post right lobectomy 07/10/2008 Status post colonoscopy and biopsy 09/18/2008 revealing the colon lesion. Status post resection. This was followed by chemotherapy. Status post left upper lobe wedge resection 08/24/2011 due to metastasis Status post stereotactic radiation therapy in 2011 Completed chemotherapy in 2014 Status post wedge resection with Dr. navarrete 2016 Status post hypo-fractionated radiation therapy in 2015 PET/CT 08/24/2017 revealing metabolic activity of the right hilum. Status post completion of radiation therapy 10/24/2017 utilizing VMAT." On 09/13/17 09:28 Meaghan Alves wrote "Adenocarcinoma of the colon with lung metastasis diagnosed in 2007 Status post right lobectomy 07/10/2008 Status post colonoscopy and biopsy 09/18/2008 revealing the colon lesion. Status post resection. This was followed by chemotherapy. Status post left upper lobe wedge resection 08/24/2011 due to metastasis Status post stereotactic radiation therapy in 2011 Completed chemotherapy in 2014 Status post wedge resection with Dr. navarrete 2015 Status post hypo-fractionated radiation therapy in 2015 PET/CT 08/24/2017 revealing metabolic activity of the right hilum." Diverticulosis of colon (Chronic) DVT, lower extremity (Resolved) Elevated lactic acid level (Resolved) History of chemotherapy (Resolved) History of immunocompromised state History of pulmonary embolus (PE) (Chronic) History of radiation therapy Hx of gallstones Hypophosphatemia (Resolved) Hypotension (Inactive) Hypoxia (Inactive) Infection due to Port-A-Cath (Resolved) Neutropenia Pulmonary embolism (Resolved) Radiation pneumonitis (Resolved) Seizures due to metabolic disorder (Resolved) Septicemia due to coagulase-negative staphylococcal infection (Resolved) SIRS (systemic inflammatory response syndrome) (Resolved) Surgical History H/O: hysterectomy History of bladder surgery History of colon surgery History of lung surgery History of tonsillectomy History of ventral hernia repair Family History Mother , early 80s of thyroid cancer Thyroid cancer Heart disease Father , age 81 of gangrene complications No problems noted. 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 drives. Seatbelt Use: always Review of Systems Review of Systems: All systems reviewed & are unremarkable except as noted in HPI & below Physical Exam Constitutional: WD/WN, vitals as above Eyes: PERRL, conjunctivae normal, anicteric sclerae ENMT: external ear and nose normal, oropharynx normal Neck: trachea midline, no thyromegaly Respiratory: normal respiratory effort, lungs clear to auscultation Cardiovascular: Rate/Rhythm: regular rate and regular rhythm Heart Sounds: no murmur Extremities: normal capillary refill and + pedal edema (trace b/l ankles); no calf tenderness Gastrointestinal (Abdomen): Inspection/Auscultation: normal bowel sounds; abdomen not distended Percussion/Palpation: + abdomen tender (Epigastric and RUQ) and abdomen soft; no guarding and abdomen not rigid Musculoskeletal: no cyanosis or clubbing, extremities motor strength 5/5 Skin: no rashes, warm and dry Neurologic: moves all extremities and awake; no focal motor deficits and not c onfused Motor/Sensory: no pronator drift Psychiatric: A+Ox3, euthymic affect Lymphatic: no cervical or axillary lymphadenopathy Results & Data Results & Data ([facility]) Vital Signs (Past 12 Hours) Vital Signs Temp Pulse Pulse Resp BP BP Pulse Ox 05/07/20 14:49 96 H 20 150/72 H 96 05/07/20 12:59 118 H 22 155/78 H 93 05/07/20 11:18 36.8 C 99 H 18 115/70 99 Diagnostic Findings ABDOMEN AND PELVIS CT WITH IV AND ORAL CONTRAST IMPRESSION: 1. Interval development of gallbladder wall thickening and pericholecystic inflammatory change. In conjunction with the cholelithiasis, this is highly suspicious for acute cholecystitis. 2. No evidence for metastatic disease within the abdomen or pelvis. 3. Please refer to the same day chest CT for further evaluation of the chest. 4. Additional findings as described above. 5. These findings were discussed with the patient's nurse practitioner, Gerri Harvey, at 10:36 AM on 05/07/2020. CT OF THE CHEST WITH IV CONTRAST IMPRESSION: 1. Slight increase in size of a 1.1 cm right upper lobe nodule which is suspicious for a metastasis. 2. Slight decrease in size of the previously described right paratracheal lymph node. 3. Right suprahilar nodule, likely slightly increased since prior CT. This favors disease progression. 4. Findings suggestive of acute cholecystitis, better depicted on the CT of the abdomen and pelvis. Please see that report for further description. ABDOMINAL ULTRASOUND, RIGHT UPPER QUADRANT IMPRESSION: 1. Borderline gallbladder wall thickening. There is a 2 cm gallstone. Clinical correlation recommended to assess for a developing acute cholecystitis. 2. Normal caliber common bile duct. 3. Hepatomegaly demonstrating fatty change. Code Status & VTE Plan Code Status Everything outside of a cardiac arrest. VTE Prophylaxis Plan VTE Prophylaxis will be ordered: Yes PG Care Time/CCT Total # of Minutes Spent Total Time Spent with Patient: Total time spent is greater than 50% in coordination of care (as documented) at patient's floor/unit and/or counseling patient: Coding Level of Care Code 20192 Initial Inpt Care Lvl 3 Diagnoses Cholecystitis K81.9 GERD (gastroesophageal reflux disease) K21.9 Esophagitis presence: esophagitis presence not specified COPD (chronic obstructive pulmonary disease) J44.9 Sleep apnea G47.30 Antineoplastic chemotherapy induced pancytopenia D61.810; T45.1X5A Hypothyroid E03.9 Hypothyroidism type: acquired Colon cancer metastasized to lung C18.9; C78.00 Port-A-Cath in place Z95.828 DVT prophylaxis Z29.9 (1) Hypothyroid Hypothyroidism type: acquired Qualified Code(s): E03.9 - Hypothyroidism, unspecified (2) GERD (gastroesophageal reflux disease) Esophagitis presence: esophagitis presence not specified Qualified Code(s): K21.9 - Gastro-esophageal reflux disease without esophagitis
--- NOTE | 2020-05-07 16:24 | Surgery Consultation ---
Date of Consultation May 07, 2020 Assessment & Plan (1) Abnormal CT of the abdomen: This patient has cholelithiasis. CT and ultrasound show minimal thickening of the gallbladder wall. There is no pericholecystic fluid or ductal anatomy is normal. There is no dilatation. Her liver function tests are normal. She does have a recent history of some right upper quadrant pain but it is not diet related. This may or may not be related to the gallstone. She is neutropenic and on anticoagulation therapy. She also is anemic at the present time. The question is whether or not this is cholecystitis. I would recommend a biliary scan. If that is positive then decision will need to be made about surgical intervention versus treating with antibiotics. She would be at significant high risk for surgical intervention due to her chemotherapy and the effects of that. She also has listed in her problem list CHF. She has had multiple previous abdominal procedures including a ventral hernia repair in the upper abdomen which may make laparoscopic removal of the gallbladder difficult if not impossible and may require an open procedure. I explained all that to her. We will await the results of the biliary scan and make further decisions. History of Present Illness Requesting Physician: Antonio Roberto MD History of Present Illness I been asked by Dr. Roberot to see this 69-year-old female who was sent to the emergency room after having had an outpatient CAT scan that showed evidence of mild gallbladder wall thickening. The patient stated that the CAT scan was a routine follow-up for her metastatic colon cancer. The original surgery was in 2007. She has had metastasis to her lung requiring 5 different lung resection procedures. The patient states that since December she has been having occasional discomfort in the right subcostal region that sometimes radiates through to her back. She sometimes has back pain without the abdominal pain. The discomfort is sometimes sharp it is more of a dull ache. It occurs at varying times of the day and its onset is unpredictable. She does not think that it is related to meals. It usually lasts 30 to 40 minutes and then slowly resolves. Over the last few weeks she has had a poor appetite. She states that it is associated with frequent vomiting. She has not had hematemesis. Despite that she states that her bowels do continue to move. There is usual formed soft stool. She is not constipated. There is no melena or hematochezia. She is never had jaundice hepatitis or pancreatitis. She was unaware that she had gallstone. Allergies Allergy/AdvReac Type Severity Reaction Status Date / Time thiopental Allergy Unknown INCREASED Verified 05/07/20 11:52 BLEEDING WITH WISDOM TEETH SURG meperidine AdvReac Mild N/V Verified 05/07/20 11:52 morphine AdvReac Mild N/V Verified 05/07/20 11:52 Home Medications Home Medications Medication Instructions Recorded Confirmed Type albuterol sulfate 2 puff INHALATION Q6 PRN 08/07/18 05/07/20 History apixaban 5 mg PO BID 08/07/18 05/07/20 History hfyjguhkhzl-xakfhhglr-cth C-Mn 1 cap PO BID 08/07/18 05/07/20 History [Glucosamine Chondroitin MaxStr] multivitamin 1 tab PO QAM 08/07/18 05/07/20 History sertraline 50 mg PO HS 08/07/18 05/07/20 History simvastatin 40 mg PO QPM 08/07/18 05/07/20 History Oxygen Home #1 ea 06/05/19 12/31/19 History magnesium oxide 800 mg PO BID cap 06/05/19 05/07/20 History potassium chloride 20 mEq 20 meq PO BID #60 tab 10/08/19 05/07/20 Rx tablet,extended release(part/cryst) ascorbic acid (vitamin C) [Vitamin 500 mg PO BID 11/02/19 05/07/20 History C] aspirin 81 mg PO HS 11/02/19 05/07/20 History cholecalciferol (vitamin D3) 2,000 unit PO BID 11/02/19 05/07/20 History [Vitamin D3] colestipol [Colestid] 1 g PO QDD 11/02/19 05/07/20 History levothyroxine 137 mcg PO QAM 11/02/19 05/07/20 History beclomethasone dipropionate 80 2 puffs INHALATION BID #34.8 gm 11/07/19 05/07/20 Rx mcg/actuation HFA breath activated aerosol ipratropium-albuterol 3 ml INHALATION Q4H PRN 12/18/19 05/07/20 History metoprolol tartrate 50 mg tablet 50 mg PO TID #90 tab 12/31/19 05/07/20 Rx hydrocodone-acetaminophen [[place]] 1 tab PO Q8H PRN #15 tab 02/08/20 05/07/20 Rx magnesium amino acid chelate 200 mg PO UD 02/08/20 05/07/20 History turmeric root extract 500 mg PO HS 02/08/20 05/07/20 History nebulizers #1 ea 02/19/20 Rx nebulizer accessories #1 ea 02/26/20 Rx omeprazole 40 mg capsule,delayed 40 mg PO QAM #90 cap 03/06/20 05/07/20 Rx release Patient History Medical History (Updated 05/07/20 @ 16:27 by Michael Ibrahim MD) Bacteremia (Resolved) Bilateral pulmonary embolism (Resolved) Candidiasis of intestine (Resolved) Chemotherapy adverse reaction Colon cancer metastasized to lung (Chronic 09/18/08) "Adenocarcinoma of the colon with lung metastasis diagnosed in 2007 Status post right lobectomy 07/10/2008 Status post colonoscopy and biopsy 09/18/2008 revealing the colon lesion. Status post resection. This was followed by chemotherapy. Status post left upper lobe wedge resection 08/24/2011 due to metastasis Status post stereotactic radiation therapy in 2011 Completed chemotherapy in 2014 Status post wedge resection with Dr. navarrete 2015 Status post hypo-fractionated radiation therapy in 2016 PET/CT 08/24/2017 revealing metabolic activity of the right hilum. Status post completion of radiation therapy 10/24/2017 utilizing VMAT. PET/CT May 29, 2018 persistent uptake in the right paratracheal mass and suspicious changes for progression. Plan for systemic chemotherapy with irinotecan and Erbitux" On 11/02/17 11:11 Meaghan Alves wrote "Adenocarcinoma of the colon with lung metastasis diagnosed in 2007 Status post right lobectomy 07/10/2008 Status post colonoscopy and biopsy 09/18/2008 revealing the colon lesion. Status post resection. This was followed by chemotherapy. Status post left upper lobe wedge resection 08/24/2011 due to metastasis Status post stereotactic radiation therapy in 2011 Completed chemotherapy in 2014 Status post wedge resection with Dr. navarrete 2016 Status post hypo-fractionated radiation therapy in 2015 PET/CT 08/24/2017 revealing metabolic activity of the right hilum. Status post completion of radiation therapy 10/24/2017 utilizing VMAT." On 09/13/17 09:28 Meaghan Alves wrote "Adenocarcinoma of the colon with lung metastasis diagnosed in 2007 Status post right lobectomy 07/10/2008 Status post colonoscopy and biopsy 09/18/2008 revealing the colon lesion. Status post resection. This was followed by chemotherapy. Status post left upper lobe wedge resection 08/24/2011 due to metastasis Status post stereotactic radiation therapy in 2011 Completed chemotherapy in 2014 Status post wedge resection with Dr. navarrete 2015 Status post hypo-fractionated radiation therapy in 2016 PET/CT 08/24/2017 revealing metabolic activity of the right hilum." Diverticulosis of colon (Chronic) DVT, lower extremity (Resolved) Elevated lactic acid level (Resolved) History of chemotherapy (Resolved) History of immunocompromised state History of pulmonary embolus (PE) (Chronic) History of radiation therapy Hx of gallstones Hypophosphatemia (Resolved) Hypotension (Inactive) Hypoxia (Inactive) Infection due to Port-A-Cath (Resolved) Neutropenia Pulmonary embolism (Resolved) Radiation pneumonitis (Resolved) Seizures due to metabolic disorder (Resolved) Septicemia due to coagulase-negative staphylococcal infection (Resolved) SIRS (systemic inflammatory response syndrome) (Resolved) Surgical History (Updated 05/07/20 @ 16:22 by Michael Ibrahim MD) H/O: hysterectomy History of bladder surgery History of colon surgery History of lung surgery History of tonsillectomy History of ventral hernia repair Social History Preferred Language: Swedish 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 Industrial 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 Required: No Beliefs That Will Affect Care: None marital status: Current Living Situation: Spouse current occupational status: retired 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 drives. Seatbelt Use: always Physical Exam Constitutional: no acute distress Respiratory: normal respiratory effort, lungs clear to auscultation Cardiovascular: Rate/Rhythm: regular rate and regular rhythm Gastrointestinal (Abdomen): Inspection/Auscultation: abdomen normal to inspection and normal bowel sounds; abdomen not distended Percussion/Palpation: + abdomen tender (Mild tenderness in the right upper quadrant without peritonitis. There is also some tenderness of the costal margin.) and abdomen soft Skin: no rashes, warm and dry Lymphatic: no cervical lymphadenopathy Results & Data Vital Signs (Past 12 Hours) Vital Signs Temp Pulse Pulse Resp BP BP Pulse Ox 05/07/20 14:49 96 H 20 150/72 H 96 05/07/20 12:59 118 H 22 155/78 H 93 05/07/20 11:18 36.8 C 99 H 18 115/70 99 Laboratory Results 05/07/20 05/07/20 05/07/20 Range/Units 13:00 11:45 11:45 WBC 2.02 L (4.8-10.8) K/uL RBC 2.54 L (4.2-5.4) M/uL Hgb 8.8 L (12.0-16.0) g/dL Hct 27.3 L (37-47) % MCV 107.5 H (80-100) fL MCH 34.6 H (25-34) pg MCHC 32.2 (32-36) g/dL RDW Std Deviation 71.8 H (36.4-46.3) fL RDW Coeff of [place]cell 18.0 H (11.5-14.5) % Plt Count 123 L (130-400) K/uL MPV 11.2 H (7.4-10.4) fL Immature Gran % (Auto) 0.0 % Neut % (Auto) 35.2 % Lymph % (Auto) 49.0 % [place] % (Auto) 7.4 % Eos % (Auto) 7.9 % Baso % (Auto) 0.5 % Immature Gran # (Auto) 0.00 (0.00-0.02) K/uL Neut # (Auto) 0.71 L* (1.4-6.5) K/uL Lymph # (Auto) 0.99 L (1.2-3.4) K/uL [place] # (Auto) 0.15 (0.11-0.59) K/uL Eos # (Auto) 0.16 (0-0.5) K/uL Baso # (Auto) 0.01 (0-0.2) K/uL Microcytosis Present Schistocytes 1+ Sodium 138 (136-145) mmol/L Potassium 4.0 (3.5-5.1) mmol/L Chloride 104 (98-107) mmol/L Carbon Dioxide 26 (21-32) mmol/L Anion Gap 8.0 (3-11) BUN 14 (7-18) mg/dl Creatinine 1.23 H (0.6-1.2) mg/dl Est Cr Clr Drug Dosing 57.3 ml/min Est GFR ( Amer) 52.6 Est GFR (Non-Af Amer) 45.4 BUN/Creatinine Ratio 11.7 (10-20) Glucose 98 (70-99) mg/dl Calcium 8.7 (8.5-10.1) mg/dl Total Bilirubin 0.5 (0.2-1) mg/dl Direct Bilirubin 0.1 (0-0.2) mg/dl AST 17 (15-37) U/L ALT 24 (12-78) U/L Alkaline Phosphatase 86 (45-117) U/L Total Protein 6.4 (6.4-8.2) gm/dl Albumin 3.1 L (3.4-5.0) gm/dl Lipase 77 (73-393) U/L Urine Color Yellow Urine Appearance Clear (Clear) Urine pH 6.0 (4.5-7.5) Ur Specific [place] <= 1.005 (1.000-1.030) Urine Protein Negative (Negative) Urine Glucose (UA) Negative (Negative) Urine Ketones Negative (Negative) Urine Blood 2+ H (Negative) Urine Nitrite Negative (Negative) Urine Bilirubin Negative (Negative) Urine Urobilinogen Negative (Negative) Ur Leukocyte Esterase Negative (Negative) Urine RBC 0-4 (0-4) /hpf Urine WBC 5-10 H (0-5) /hpf Ur Epithelial Cells 10-20 H (0-5) /lpf Urine Bacteria 1+ H (Negative) Diagnostic Findings ABDOMEN AND PELVIS CT WITH IV AND ORAL CONTRAST CT DOSE: HISTORY: Colon cancer. Follow-up. TECHNIQUE: Multiaxial CT images of the abdomen and pelvis were performed following the use of intravenous and oral contrast. A dose lowering technique was utilized adhering to the principles of ALARA. COMPARISON STUDY: Abdomen and pelvis CT 01/25/2020. FINDINGS: Partially visualized post therapeutic changes seen within the right hemithorax. This is better appreciated on the same day chest CT. Catheter tip terminating in the right atrium. No pneumoperitoneum. No pneumatosis. No suspicious lytic or blastic osseous lesions. A few tiny fat-containing midline upper abdominal wall ventral hernias. This remains unchanged. Prior mesh repair of a periumbilical hernia. Small fat-containing left inguinal hernia. There is thickening and enhancement of the gallbladder wall with pericholecystic inflammatory change. There is a 2.6 cm stone near the neck of the gallbladder. Therefore, these findings are highly suspicious for acute cholecystitis. Normal caliber common bile duct. No hepatic or splenic masses. Hepatic steatosis. A few punctate calcified granuloma seen within the spleen. The pancreas and adrenal glands are unremarkable. Bilateral peripelvic renal cysts. Moderate bilateral cortical renal thinning, unchanged. No retroperitoneal lymphadenopathy. Normal caliber abdominal aorta. No pelvic lymphadenopathy. The bladder is unremarkable. There is mild pelvic floor collapse. The uterus is surgically absent. No bowel wall thickening or obstruction. IMPRESSION: 1. Interval development of gallbladder wall thickening and pericholecystic inflammatory change. In conjunction with the cholelithiasis, this is highly suspicious for acute cholecystitis. 2. No evidence for metastatic disease within the abdomen or pelvis. 3. Please refer to the same day chest CT for further evaluation of the chest. 4. Additional findings as described above. 5. These findings were discussed with the patient's nurse practitioner, Gerri Harvey, at 10:36 AM on 05/07/2020. ABDOMINAL ULTRASOUND, RIGHT UPPER QUADRANT HISTORY: Abnormal stress gallbladder on CT.. COMPARISON: Abdomen and pelvis CT 05/07/2020. FINDINGS: Pancreas: The pancreas demonstrates a normal echotexture. Liver: The liver is echogenic consistent with fatty change. No hepatic masses. The liver measures 21 cm in length. Gallbladder: Borderline gallbladder wall thickening which measures 3 mm. There is a 2 cm gallstone identified. CBD: 5 mm. Right kidney: No hydronephrosis. IMPRESSION: 1. Borderline gallbladder wall thickening. There is a 2 cm gallstone. Clinical correlation recommended to assess for a developing acute cholecystitis. 2. Normal caliber common bile duct. 3. Hepatomegaly demonstrating fatty change.
[2020-05-07] MEDS ORDERED: POLYETHYLENE (MIRALAX) 17 GM PACK PO PRN (16:30)
[2020-05-07] MEDS ORDERED: MAGNESIUM HYDROXIDE SUSP 30 ML UDC PO PRN (16:30)
[2020-05-07] MEDS ORDERED: MAGNESIUM AMINO ACID CHELATE PO SCH (16:30)
[2020-05-07] MEDS ORDERED: ALBUT/IPRATROP 3MG/0.5MG NEB 3 ML VIAL INH PRN (16:30)
[2020-05-07] MEDS: COLESTIPOL HCL 1 GM TAB PO SCH (17:22)
[2020-05-07] MEDS: LACTATED RINGER'S 1,000 ML IV SCH (17:22)
--- NOTE | 2020-05-07 18:14 | Emergency Department Note ---
History of Present Illness General Chief Complaint: Abnormal Labs/Diagnostic Testing Stated Complaint: ABNORMAL DIAGNOSTIC TESTING Time Seen by Provider: 05/07/20 11:29 History of Present Illness Provider Complaint: abdominal pain Onset (ago): 5 day(s) Pain Consistency: intermittent Location: RUQ and epigastric Radiation: none Severity: moderate Quality: + cramping and + aching Relieved By: + nothing Exacerbated By: + nothing Associated Symptoms: + nausea and + vomiting; no diarrhea, no chills, no constipation, no dysuria, no hematemesis, no hematochezia, no melena, no hematuria, no anorexia, no syncope, no headache and no chest pain Patient is currently on chemotherapy ordered by Dr. Bueno for colon cancer with metastasis to her lungs. She states that he ordered an outpatient CAT scan for her today which showed that she had gallstones. Home Medications Home Medications Medication Instructions Recorded Confirmed Type albuterol sulfate 2 puff INHALATION Q6 PRN 08/07/18 05/07/20 History apixaban 5 mg PO BID 08/07/18 05/07/20 History sbgqddopart-zadpuvmsc-nez C-Mn 1 cap PO BID 08/07/18 05/07/20 History [Glucosamine Chondroitin MaxStr] multivitamin 1 tab PO QAM 08/07/18 05/07/20 History sertraline 50 mg PO HS 08/07/18 05/07/20 History simvastatin 40 mg PO QPM 08/07/18 05/07/20 History Oxygen Home #1 ea 06/05/19 12/31/19 History magnesium oxide 800 mg PO BID cap 06/05/19 05/07/20 History potassium chloride 20 mEq 20 meq PO BID #60 tab 10/08/19 05/07/20 Rx tablet,extended release(part/cryst) ascorbic acid (vitamin C) [Vitamin 500 mg PO BID 11/02/19 05/07/20 History C] aspirin 81 mg PO HS 11/02/19 05/07/20 History cholecalciferol (vitamin D3) 2,000 unit PO BID 11/02/19 05/07/20 History [Vitamin D3] colestipol [Colestid] 1 g PO QDD 11/02/19 05/07/20 History levothyroxine 137 mcg PO QAM 11/02/19 05/07/20 History beclomethasone dipropionate 80 2 puffs INHALATION BID #34.8 gm 11/07/19 05/07/20 Rx mcg/actuation HFA breath activated aerosol ipratropium-albuterol 3 ml INHALATION Q4H PRN 12/18/19 05/07/20 History metoprolol tartrate 50 mg tablet 50 mg PO TID #90 tab 12/31/19 05/07/20 Rx hydrocodone-acetaminophen [Hodgen] 1 tab PO Q8H PRN #15 tab 02/08/20 05/07/20 Rx magnesium amino acid chelate 200 mg PO UD 02/08/20 05/07/20 History turmeric root extract 500 mg PO HS 02/08/20 05/07/20 History nebulizers #1 ea 02/19/20 Rx nebulizer accessories #1 ea 02/26/20 Rx omeprazole 40 mg capsule,delayed 40 mg PO QAM #90 cap 03/06/20 05/07/20 Rx release Allergies Allergy/AdvReac Type Severity Reaction Status Date / Time thiopental Allergy Unknown INCREASED Verified 05/07/20 11:52 BLEEDING WITH WISDOM TEETH SURG meperidine AdvReac Mild N/V Verified 05/07/20 11:52 morphine AdvReac Mild N/V Verified 05/07/20 11:52 Past Med/Surg History Medical History Bacteremia (Resolved) Bilateral pulmonary embolism (Resolved) Candidiasis of intestine (Resolved) Chemotherapy adverse reaction Colon cancer metastasized to lung (Chronic 09/18/08) "Adenocarcinoma of the colon with lung metastasis diagnosed in 2007 Status post right lobectomy 07/10/2008 Status post colonoscopy and biopsy 09/18/2008 revealing the colon lesion. Status post resection. This was followed by chemotherapy. Status post left upper lobe wedge resection 08/24/2011 due to metastasis Status post stereotactic radiation therapy in 2011 Completed chemotherapy in 2014 Status post wedge resection with Dr. navarrete 2015 Status post hypo-fractionated radiation therapy in 2015 PET/CT 08/24/2017 revealing metabolic activity of the right hilum. Status post completion of radiation therapy 10/24/2017 utilizing VMAT. PET/CT May 29, 2018 persistent uptake in the right paratracheal mass and suspicious changes for progression. Plan for systemic chemotherapy with irinotecan and Erbitux" On 11/02/17 11:11 Meaghan Alves wrote "Adenocarcinoma of the colon with lung metastasis diagnosed in 2007 Status post right lobectomy 07/10/2008 Status post colonoscopy and biopsy 09/18/2008 revealing the colon lesion. Status post resection. This was followed by chemotherapy. Status post left upper lobe wedge resection 08/24/2011 due to metastasis Status post stereotactic radiation therapy in 2011 Completed chemotherapy in 2014 Status post wedge resection with Dr. navarreet 2015 Status post hypo-fractionated radiation therapy in 2015 PET/CT 08/24/2017 revealing metabolic activity of the right hilum. Status post completion of radiation therapy 10/24/2017 utilizing VMAT." On 09/13/17 09:28 Meaghan Alves wrote "Adenocarcinoma of the colon with lung metastasis diagnosed in 2007 Status post right lobectomy 07/10/2008 Status post colonoscopy and biopsy 09/18/2008 revealing the colon lesion. Status post resection. This was followed by chemotherapy. Status post left upper lobe wedge resection 08/24/2011 due to metastasis Status post stereotactic radiation therapy in 2011 Completed chemotherapy in 2014 Status post wedge resection with Dr. navarrete 2015 Status post hypo-fractionated radiation therapy in 2016 PET/CT 08/24/2017 revealing metabolic activity of the right hilum." Diverticulosis of colon (Chronic) DVT, lower extremity (Resolved) Elevated lactic acid level (Resolved) History of chemotherapy (Resolved) History of immunocompromised state History of pulmonary embolus (PE) (Chronic) History of radiation therapy Hx of gallstones Hypophosphatemia (Resolved) Hypotension (Inactive) Hypoxia (Inactive) Infection due to Port-A-Cath (Resolved) Neutropenia Pulmonary embolism (Resolved) Radiation pneumonitis (Resolved) Seizures due to metabolic disorder (Resolved) Septicemia due to coagulase-negative staphylococcal infection (Resolved) SIRS (systemic inflammatory response syndrome) (Resolved) Surgical History H/O: hysterectomy History of bladder surgery History of colon surgery History of lung surgery History of tonsillectomy History of ventral hernia repair Family History Mother , early 80s of thyroid cancer Thyroid cancer Heart disease Father , age 81 of gangrene complications No problems noted. 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 drives. Seatbelt Use: always Review of Systems A total of 10 systems reviewed and were otherwise negative Physical Exam Vital Signs: Vital Signs - 24 hr 05/07/20 11:18 05/07/20 12:59 05/07/20 14:49 Temperature 36.8 C Temperature Source Oral Pulse Rate 99 H Pulse Rate [Finger ] 118 H 96 H Respiratory Rate 18 22 20 Respiratory Depth Normal Blood Pressure 115/70 Blood Pressure [Ri ght Arm] 155/78 H 150/72 H Blood Pressure Albina n 85 Blood Pressure Albina n [Right Arm] 103 98 Pulse Oximetry 99 93 96 Oxygen Delivery Me thod Room Air Room Air Room Air Sepsis Recent Feve r Within 48 Hours No Sepsis New/Unexpla ined Change in Men jace Status No Sepsis Action Take n by Nursing No Action Required Physical Exam: Physical Exam GENERAL: She is oriented to person, place, and time. She appears well-developed and well-nourished. She does not appear distressed. HENT: Exam performed. -Head: Normocephalic and atraumatic. -Right Ear: External ear normal. No mastoid tenderness. -Left Ear: External ear normal. No mastoid tenderness. -Mouth/Throat: The oropharynx is clear and moist. No trismus in the jaw. No dental abscesses or uvula swelling. No oropharyngeal exudate or tonsillar abscesses. EYES: Conjunctivae and EOM are normal. Pupils are equal, round, and reactive to light. Right eye exhibits no discharge. Left eye exhibits no discharge. No scleral icterus. NECK: Normal range of motion. Neck supple. No JVD present. No spinous process tenderness present. No carotid bruit present. No rigidity. No tracheal deviation and normal range of motion present. No Brudzinski's sign and no Kernig's sign noted. CV: Normal rate, regular rhythm, normal heart sounds and intact distal pulses. There is no peripheral edema. Palpable radial pulses bue. PULM/CHEST: Effort normal and breath sounds normal. No respiratory distress. No stridor. She has no wheezes. She has no rales. -Chest Wall: Port in her right anterior chest. ABD: The abdomen is soft. Bowel sounds are normal. She has no distension. No mass is present. There tenderness to palpation of the right upper quadrant and epigastric area. There is no rebound, no guarding, no Lundberg's sign and no ten derness at McBurney's point. Rovsig negative MUSC/SKEL: Normal range of motion. There is no peripheral edema, tenderness or deformity. LYMPH: No cervical adenopathy. NEURO: She is alert and oriented to person, place, and time. She has normal strength. No cranial nerve deficit or sensory deficit. Coordination and gait normal. GCS eye subscore is 4. GCS verbal subscore is 5. GCS motor subscore is 6. Cerebellar tests wnl. SKIN: Skin is warm and dry. She is not diaphoretic. PSYCH: She has a normal mood and affect. Behavior is normal. Judgment and thought content normal. Course Course 1145: The patient was evaluated in room C6. A complete history and physical exam was performed. Cardiac monitoring: An order was placed for continuous cardiac monitoring. The monitor shows a rate of 92 with sinus rhythm 1315: Vital signs stable. Labs show a white blood cell count of 2.02. This is most likely due to the patient's chemotherapy. Her neutrophil count is also low. Patient does not have any fevers. Liver enzymes and lipase are within normal limits. Creatinine is at baseline. Patient's ultrasound shows a 2 cm ga llstone with borderline gallbladder wall thickening. I did discuss the patient if she would be interested in surgery if needed, she stated that she would be if it is absolutely necessary but she stated that if there was a way to treat her condition medically she would prefer this given her other comorbidities. I am in agreement with the patient. I think would be best if we admit the patient to the medicine team and treat the patient with IV antibiotics and have the patient be evaluated by GI and general surgery. I did discuss this plan with general surgery Renee Tejeda PA-C,who stated that she discussed with Dr. Ibrahim general surgery who recommended getting a HIDA scan and admitting to medicine. [facility] hospitalist team Dr. Roberto agreed to the admission. Patient was given Rocephin and Flagyl for antibiotic coverage. Administered Medications Colestipol HCl (Colestid) 1 gm PO QDD JAMIN Stop: 06/06/20 16:29 Last Admin: 05/07/20 17:22 Dose: 1 gm Documented by: [id number] Lactated Ringer's (Lr) 1,000 mls @ 80 mls/hr IV .[id number] JAMIN Stop: 06/06/20 16:29 Last Admin: 05/07/20 17:22 Dose: 80 mls/hr Documented by: [id number] Discontinued Medications Ceftriaxone Sodium (Rocephin) 1,000 mg in 50 mls @ 100 mls/hr IV NOW STA Stop: 05/07/20 13:26 Last Infusion: 05/07/20 14:00 Dose: 0 mls/hr Documented by: [id number] Admin: 05/07/20 13:21 Dose: 100 mls/hr Documented by: [id number] Metronidazole (Flagyl) 500 mg in 100 mls @ 100 mls/hr IV NOW STA Stop: 05/07/20 13:56 Last Infusion: 05/07/20 15:00 Dose: 0 mls/hr Documented by: [id number] Admin: 05/07/20 14:00 Dose: 100 mls/hr Documented by: [id number] Medical Decision Making Laboratory Data Result diagrams: 05/07/20 11:45 05/07/20 11:45 Lab Results 05/07/20 05/07/20 05/07/20 Range/Units 11:45 11:45 13:00 WBC 2.02 L (4.8-10.8) K/uL RBC 2.54 L (4.2-5.4) M/uL Hgb 8.8 L (12.0-16.0) g/dL Hct 27.3 L (37-47) % MCV 107.5 H (80-100) fL MCH 34.6 H (25-34) pg MCHC 32.2 (32-36) g/dL RDW Std Deviation 71.8 H (36.4-46.3) fL RDW Coeff of Marcell 18.0 H (11.5-14.5) % Plt Count 123 L (130-400) K/uL MPV 11.2 H (7.4-10.4) fL Immature Gran % (Auto) 0.0 % Neut % (Auto) 35.2 % Lymph % (Auto) 49.0 % [place] % (Auto) 7.4 % Eos % (Auto) 7.9 % Baso % (Auto) 0.5 % Immature Gran # (Auto) 0.00 (0.00-0.02) K/uL Neut # (Auto) 0.71 L* (1.4-6.5) K/uL Lymph # (Auto) 0.99 L (1.2-3.4) K/uL [place] # (Auto) 0.15 (0.11-0.59) K/uL Eos # (Auto) 0.16 (0-0.5) K/uL Baso # (Auto) 0.01 (0-0.2) K/uL Microcytosis Present Schistocytes 1+ Sodium 138 (136-145) mmol/L Potassium 4.0 (3.5-5.1) mmol/L Chloride 104 (98-107) mmol/L Carbon Dioxide 26 (21-32) mmol/L Anion Gap 8.0 (3-11) BUN 14 (7-18) mg/dl Creatinine 1.23 H (0.6-1.2) mg/dl Est Cr Clr Drug Dosing 57.3 ml/min Est GFR ( Amer) 52.6 Est GFR (Non-Af Amer) 45.4 BUN/Creatinine Ratio 11.7 (10-20) Glucose 98 (70-99) mg/dl Calcium 8.7 (8.5-10.1) mg/dl Total Bilirubin 0.5 (0.2-1) mg/dl Direct Bilirubin 0.1 (0-0.2) mg/dl AST 17 (15-37) U/L ALT 24 (12-78) U/L Alkaline Phosphatase 86 (45-117) U/L Total Protein 6.4 (6.4-8.2) gm/dl Albumin 3.1 L (3.4-5.0) gm/dl Lipase 77 (73-393) U/L Urine Color Yellow Urine Appearance Clear (Clear) Urine pH 6.0 (4.5-7.5) Ur Specific Emmet <= 1.005 (1.000-1.030) Urine Protein Negative (Negative) Urine Glucose (UA) Negative (Negative) Urine Ketones Negative (Negative) Urine Blood 2+ H (Negative) Urine Nitrite Negative (Negative) Urine Bilirubin Negative (Negative) Urine Urobilinogen Negative (Negative) Ur Leukocyte Esterase Negative (Negative) Urine RBC 0-4 (0-4) /hpf Urine WBC 5-10 H (0-5) /hpf Ur Epithelial Cells 10-20 H (0-5) /lpf Urine Bacteria 1+ H (Negative) Imaging Data Radiologist's Impression: ABDOMINAL ULTRASOUND, RIGHT UPPER QUADRANT HISTORY: Abnormal stress gallbladder on CT.. COMPARISON: Abdomen and pelvis CT 05/07/2020. FINDINGS: Pancreas: The pancreas demonstrates a normal echotexture. Liver: The liver is echogenic consistent with fatty change. No hepatic masses. The liver measures 21 cm in length. Gallbladder: Borderline gallbladder wall thickening which measures 3 mm. There is a 2 cm gallstone identified. CBD: 5 mm. Right kidney: No hydronephrosis. IMPRESSION: 1. Borderline gallbladder wall thickening. There is a 2 cm gallstone. Clinical correlation recommended to assess for a developing acute cholecystitis. 2. Normal caliber common bile duct. 3. Hepatomegaly demonstrating fatty change. ACT 112: Negative or not required by law. Electronically signed by: Norberto Pandya M.D. 05/07/2020 12:50 PM Dictated: 05/07/20 1248 Transcribed: 05/07/20 1248 [facility] Narrative Vital signs stable. Labs show a white blood cell count of 2.02. This is most likely due to the patient's chemotherapy. Her neutrophil count is also low. Patient does not have any fevers. Liver enzymes and lipase are within normal limits. Creatinine is at baseline. Patient's ultrasound shows a 2 cm gallstone with borderline gallbladder wall thickening. I did discuss the patient if she would be interested in surgery if needed, she stated that she would be if it is absolutely necessary but she stated that if there was a way to treat her condition medically she would prefer this given her other comorbidities. I am in agreement with the patient. I think would be best if we admit the patient to the medicine team and treat the patient with IV antibiotics and have the patient be evaluated by GI and general surgery. I did discuss this plan with general surgery Renee Tejeda PA-C,who stated that she discussed with Dr. Ibrahim general surgery who recommended getting a HIDA scan and [facility]. Patient was given Rocephin and Flagyl for antibiotic coverage. Impression & Plan Cholecystitis Discharge Plan Visit Data *Final* Discharge Date/Time: 05/07/20 16:14 Chief Complaint: Abnormal Labs/Diagnostic Testing Stated Complaint: ABNORMAL DIAGNOSTIC TESTING ED Provider: Martin Casiano Discharge Problem: Cholecystitis Patient Disposition: Admitted As Inpatient Discharge Instructions Interventions: ED Discharge Assessment Last Done: 05/07/20 16:14
[2020-05-07] MEDS: ONDANSETRON INJ 2 MG/ML 2 ML VIAL IV PRN (18:32)
[2020-05-07] MEDS ORDERED: NON-FORMULARY MEDICATION (Turmeric Root Extract 500 MG) PO SCH (21:00)
[2020-05-07] MEDS: FLUTICASONE FUROATE 200MCG 14 PUFFS/INHALER INH SCH (21:35)
[2020-05-07] MEDS: ASPIRIN 81 MG ECTAB PO SCH (21:35)
[2020-05-07] MEDS: ASCORBIC ACID 500 MG TAB PO SCH (21:36)
[2020-05-07] MEDS: CHOLECALCIFEROL 1,000 UNITS 25 MCG TAB PO SCH (21:36)
[2020-05-07] MEDS: SIMVASTATIN 40 MG TAB PO SCH (21:37)
[2020-05-07] MEDS: METOPROLOL TARTRATE 50 MG TAB PO SCH (21:37)
[2020-05-07] MEDS: MAGNESIUM OXIDE 400 MG TAB PO SCH (21:37)
[2020-05-07] MEDS: SERTRALINE HCL 50 MG TABLET PO SCH (21:37)
[2020-05-07] MEDS: metroNIDAZOLE 500 MG/100 ML BAG IV SCH (21:38)
[2020-05-07] MEDS: APIXABAN 5 MG TABLET PO SCH (22:29)
[2020-05-08] MEDS: metroNIDAZOLE 500 MG/100 ML BAG IV SCH ×3 (05:27→21:59)
[2020-05-08] MEDS: LACTATED RINGER'S 1,000 ML IV SCH ×2 (05:27→11:30)
[2020-05-08] MEDS: LEVOTHYROXINE SODIUM 137 MCG TABLET PO SCH (05:32)
[2020-05-08 06:10] LABS: Hematocrit (blood only) 24.8 % (37-47); Hemoglobin 7.7 g/dL (12.0-16.0); Mean Corpuscular Hemoglobin 33.8 pg (25-34); Mean Corpuscular Volume 108.8 fL (80-100); RDW Coefficient of Variation 17.9 % (11.5-14.5); RDW Standard Deviation 71.2 fL (36.4-46.3); Red Blood Count 2.28 M/uL (4.2-5.4); White Blood Count 2.05 K/uL (4.8-10.8)
[2020-05-08 06:54] LABS: Alanine Aminotransferase 21 U/L (12-78); Albumin Level 2.7 gm/dl (3.4-5.0); Aspartate Aminotransferase 20 U/L (15-37); Bilirubin Direct < 0.1 mg/dl (0-0.2); Blood Urea Nitrogen 12 mg/dl (7-18); Carbon Dioxide 28 mmol/L (21-32); Chloride 110 mmol/L (98-107); Creatinine Clr Calc Pharmacy 64.6 ml/min; Est GFR (African American) 60.8; Est GFR (Non-African American) 52.5; Glucose 82 mg/dl (70-99); Potassium 3.7 mmol/L (3.5-5.1); Sodium 142 mmol/L (136-145)
[2020-05-08 06:57] LABS: Alkaline Phosphatase 75 U/L (45-117); Bilirubin,Total 0.6 mg/dl (0.2-1); Total Protein 5.6 gm/dl (6.4-8.2)
[2020-05-08 06:58] LABS: Platelet Count 95 K/uL (130-400)
[2020-05-08 06:59] LABS: Basophils # (auto) 0.01 K/uL (0-0.2); Basophils % (auto) 0.5 %; Eosinophils # (auto) 0.12 K/uL (0-0.5); Eosinophils % (auto) 5.9 %; Giant Platelets 1+; Lymphocytes % (auto) 48.8 %; Monocytes # (auto) 0.15 K/uL (0.11-0.59); Monocytes % (auto) 7.3 %; Neutrophils # (auto) 0.77 K/uL (1.4-6.5); Neutrophils % (auto) 37.5 %; Platelet Estimate Decreased (Normal); Tear Drop Cells 1+; Toxic Granulation 1+
[2020-05-08] MEDS: MAGNESIUM OXIDE 400 MG TAB PO SCH ×2 (07:37→20:10)
[2020-05-08] MEDS: ASCORBIC ACID 500 MG TAB PO SCH ×2 (07:38→20:10)
[2020-05-08] MEDS: METOPROLOL TARTRATE 50 MG TAB PO SCH ×3 (07:38→20:10)
[2020-05-08] MEDS: PANTOprazole 40 MG TAB PO SCH (07:39)
[2020-05-08] MEDS: MULTIVITAMIN TAB PO SCH (07:39)
[2020-05-08] MEDS: CHOLECALCIFEROL 1,000 UNITS 25 MCG TAB PO SCH ×2 (07:39→20:13)
[2020-05-08] MEDS: APIXABAN 5 MG TABLET PO SCH (07:40)
[2020-05-08] MEDS: FAMOTIDINE 20 MG in SYRINGE 3 ML IV SCH (07:43)
[2020-05-08] MEDS ORDERED: LACTATED RINGER'S 500 ML IV ONE (10:46)
--- NOTE | 2020-05-08 11:28 | Surgery Progress Note ---
Date of Service May 08, 2020 Assessment & Plan (1) Abnormal CT of the abdomen: This patient has cholelithiasis. CT and ultrasound show minimal thickening of the gallbladder wall. There is no pericholecystic fluid or ductal anatomy is normal. There is no dilatation. Her liver function tests are normal. Awaiting final results of HIDA scan today, going back down at 12:30 for more images Hypotensive this am 86/60, hemoglobin dropped to 7.7/24.8 this morning, neutropenic, leukopenic. Episode of abdominal pain last evening Lactic acid 2.2 Plan: Await results of HIDA scan to determine further surgical management for gallbladder. Had eliquis last night and this am, HOLD ANTICOAGULATION Continue medical management Dr. Ibrahim has seen and examined pt, please see addendum for further recommendations/plan. Supervising Physician Co-Signing Physician Notes I interviewed and examined this patient I agree with the above note. She had the 2 episodes of pain last night. Today she has minimal tenderness in the right subcostal region. The HIDA scan so far does not show appearance of the gallbladder however she is to have additional imaging later today. If this is acute cholecystitis and are going to need to discuss continue antibiotics versus surgical intervention however she is at much higher risk due to her chemotherapy. She also had multiple previous abdominal procedures and so laparoscopic cholecystectomy may not be an option. She was given her Eliquis last night and this morning and so immediate surgery unless evidence of peritonitis or sepsis would not be an option. Because of all her comorbid conditions, pancytopenia and multiple previous abdominal procedures a cholecystostomy could also be considered. Subjective had two episodes of right sided abdominal pain last night vomiting after beef broth and jello for dinner last night was feeling lightheaded and dizzy this am Physical Exam Constitutional: WD/WN, vitals as above no acute distress Respiratory: normal respiratory effort; no respiratory distress Gastrointestinal (Abdomen): Inspection/Auscultation: abdomen normal to inspection; abdomen not distended Percussion/Palpation: + abdomen tender (RUQ and epigastrium) and abdomen soft; no guarding and abdomen not rigid Skin: no rashes, warm and dry Psychiatric: A+Ox3, euthymic affect Results & Data Vital Signs (Past 12 Hours) Vital Signs Temp Pulse Resp BP Pulse Ox 05/08/20 11:10 96/86 L 05/08/20 07:31 36.7 C 89 16 86/60 L 93 05/07/20 23:35 37.1 C 98 H 20 91/58 L 96 Laboratory Results 05/08/20 05/08/20 05/08/20 Range/Units 09:55 05:14 05:14 WBC 2.05 L (4.8-10.8) K/uL RBC 2.28 L (4.2-5.4) M/uL Hgb 7.7 L (12.0-16.0) g/dL Hct 24.8 L (37-47) % MCV 108.8 H (80-100) fL MCH 33.8 (25-34) pg MCHC 31.0 L (32-36) g/dL RDW Std Deviation 71.2 H (36.4-46.3) fL RDW Coeff of Marcell 17.9 H (11.5-14.5) % Plt Count 95 L (130-400) K/uL MPV 11.0 H (7.4-10.4) fL Immature Gran % (Auto) 0.0 % Neut % (Auto) 37.5 % Lymph % (Auto) 48.8 % [place] % (Auto) 7.3 % Eos % (Auto) 5.9 % Baso % (Auto) 0.5 % Immature Gran # (Auto) 0.00 (0.00-0.02) K/uL Neut # (Auto) 0.77 L* (1.4-6.5) K/uL Lymph # (Auto) 1.00 L (1.2-3.4) K/uL [place] # (Auto) 0.15 (0.11-0.59) K/uL Eos # (Auto) 0.12 (0-0.5) K/uL Baso # (Auto) 0.01 (0-0.2) K/uL Toxic Granulation 1+ Platelet Estimate Decreased L (Normal) Giant Platelets 1+ Microcytosis Tear Drop Cells 1+ Schistocytes Sodium 142 (136-145) mmol/L Potassium 3.7 (3.5-5.1) mmol/L Chloride 110 H (98-107) mmol/L Carbon Dioxide 28 (21-32) mmol/L Anion Gap 4.0 (3-11) BUN 12 (7-18) mg/dl Creatinine 1.09 (0.6-1.2) mg/dl Est Cr Clr Drug Dosing 64.6 ml/min Est GFR ( Amer) 60.8 Est GFR (Non-Af Amer) 52.5 BUN/Creatinine Ratio 11.0 (10-20) Glucose 82 (70-99) mg/dl Lactate 2.2 H* (0.4-2.0) mmol/L Calcium 8.0 L (8.5-10.1) mg/dl Total Bilirubin 0.6 (0.2-1) mg/dl Direct Bilirubin < 0.1 (0-0.2) mg/dl AST 20 (15-37) U/L ALT 21 (12-78) U/L Alkaline Phosphatase 75 (45-117) U/L Total Protein 5.6 L (6.4-8.2) gm/dl Albumin 2.7 L (3.4-5.0) gm/dl Lipase (73-393) U/L Urine Color Urine Appearance (Clear) Urine pH (4.5-7.5) Ur Specific [place] (1.000-1.030) Urine Protein (Negative) Urine Glucose (UA) (Negative) Urine Ketones (Negative) Urine Blood (Negative) Urine Nitrite (Negative) Urine Bilirubin (Negative) Urine Urobilinogen (Negative) Ur Leukocyte Esterase (Negative) Urine RBC (0-4) /hpf Urine WBC (0-5) /hpf Ur Epithelial Cells (0-5) /lpf Urine Bacteria (Negative) 05/07/20 05/07/20 05/07/20 Range/Units 13:00 11:45 11:45 WBC 2.02 L (4.8-10.8) K/uL RBC 2.54 L (4.2-5.4) M/uL Hgb 8.8 L (12.0-16.0) g/dL Hct 27.3 L (37-47) % MCV 107.5 H (80-100) fL MCH 34.6 H (25-34) pg MCHC 32.2 (32-36) g/dL RDW Std Deviation 71.8 H (36.4-46.3) fL RDW Coeff of Marcell 18.0 H (11.5-14.5) % Plt Count 123 L (130-400) K/uL MPV 11.2 H (7.4-10.4) fL Immature Gran % (Auto) 0.0 % Neut % (Auto) 35.2 % Lymph % (Auto) 49.0 % [place] % (Auto) 7.4 % Eos % (Auto) 7.9 % Baso % (Auto) 0.5 % Immature Gran # (Auto) 0.00 (0.00-0.02) K/uL Neut # (Auto) 0.71 L* (1.4-6.5) K/uL Lymph # (Auto) 0.99 L (1.2-3.4) K/uL [place] # (Auto) 0.15 (0.11-0.59) K/uL Eos # (Auto) 0.16 (0-0.5) K/uL Baso # (Auto) 0.01 (0-0.2) K/uL Toxic Granulation Platelet Estimate (Normal) Giant Platelets Microcytosis Present Tear Drop Cells Schistocytes 1+ Sodium 138 (136-145) mmol/L Potassium 4.0 (3.5-5.1) mmol/L Chloride 104 (98-107) mmol/L Carbon Dioxide 26 (21-32) mmol/L Anion Gap 8.0 (3-11) BUN 14 (7-18) mg/dl Creatinine 1.23 H (0.6-1.2) mg/dl Est Cr Clr Drug Dosing 57.3 ml/min Est GFR ( Amer) 52.6 Est GFR (Non-Af Amer) 45.4 BUN/Creatinine Ratio 11.7 (10-20) Glucose 98 (70-99) mg/dl Lactate (0.4-2.0) mmol/L Calcium 8.7 (8.5-10.1) mg/dl Total Bilirubin 0.5 (0.2-1) mg/dl Direct Bilirubin 0.1 (0-0.2) mg/dl AST 17 (15-37) U/L ALT 24 (12-78) U/L Alkaline Phosphatase 86 (45-117) U/L Total Protein 6.4 (6.4-8.2) gm/dl Albumin 3.1 L (3.4-5.0) gm/dl Lipase 77 (73-393) U/L Urine Color Yellow Urine Appearance Clear (Clear) Urine pH 6.0 (4.5-7.5) Ur Specific [place] <= 1.005 (1.000-1.030) Urine Protein Negative (Negative) Urine Glucose (UA) Negative (Negative) Urine Ketones Negative (Negative) Urine Blood 2+ H (Negative) Urine Nitrite Negative (Negative) Urine Bilirubin Negative (Negative) Urine Urobilinogen Negative (Negative) Ur Leukocyte Esterase Negative (Negative) Urine RBC 0-4 (0-4) /hpf Urine WBC 5-10 H (0-5) /hpf Ur Epithelial Cells 10-20 H (0-5) /lpf Urine Bacteria 1+ H (Negative)
--- NOTE | 2020-05-08 12:40 | Nuclear Medicine Report ---
NM hepatobiliary CLINICAL HISTORY: Right upper quadrant abdominal pain. Abnormal gallbladder ultrasound. COMPARISON STUDY: Biliary ultrasound dated 05/07/2020 FINDINGS: The patient was injected with 5.5 mCi of technetium 99 M Choletec. Anterior imaging was per formed. Hepatic excretion appeared unremarkable. The gallbladder was not visualized on imaging up to 1 hour. This reason delayed imaging at 4 hours was performed. No gallbladder activity is identified. There was normal passage of activity into small bowel. IMPRESSION: Nonvisualization of the gallbladder. The findings are consistent with cystic duct obstru ction as would be seen in acute cholecystitis. ACT 112: Negative or not required by law. Electronically signed by: Gilson Cordero M.D. 05/08/2020 12:39 PM
[2020-05-08] MEDS: cefTRIAXone SODIUM 2,000 MG in DEXTROSE 5% 50 ML IV SCH (13:19)
[2020-05-08 13:39] LABS: Hematocrit (blood only) 24.6 % (37-47); Hemoglobin 8.1 g/dL (12.0-16.0); Mean Corpuscular Hemoglobin 35.2 pg (25-34); Mean Corpuscular Hgb Conc 32.9 g/dL (32-36); RDW Standard Deviation 70.1 fL (36.4-46.3); White Blood Count 2.34 K/uL (4.8-10.8)
[2020-05-08 13:54] LABS: Platelet Count 82 K/uL (130-400)
[2020-05-08 14:01] LABS: Albumin Level 2.9 gm/dl (3.4-5.0); BUN Creatinine Ratio 9.4 (10-20); Calcium 8.1 mg/dl (8.5-10.1); Creatinine Clr Calc Pharmacy 61.8 ml/min; Est GFR (African American) 57.6; Est GFR (Non-African American) 49.7; Potassium 3.6 mmol/L (3.5-5.1)
[2020-05-08 14:04] LABS: Albumin Globulin Ratio 0.9 (0.9-2); Bilirubin,Total 0.6 mg/dl (0.2-1); Globulin 3.1 gm/dl (2.5-4.0)
[2020-05-08 14:07] LABS: Anisocytosis Present; Basophils # (auto) 0.01 K/uL (0-0.2); Basophils % (auto) 0.4 %; Eosinophils % (auto) 4.3 %; Immature Granulocytes # (auto) 0.01 K/uL (0.00-0.02); Immature Granulocytes % (auto) 0.4 %; Lymphocytes # (auto) 1.09 K/uL (1.2-3.4); Lymphocytes % (auto) 46.6 %; Macrocytosis Present; Monocytes # (auto) 0.13 K/uL (0.11-0.59); Monocytes % (auto) 5.6 %; Neutrophils % (auto) 42.7 %; Tear Drop Cells 1+
[2020-05-08] MEDS: COLESTIPOL HCL 1 GM TAB PO SCH (15:46)
--- NOTE | 2020-05-08 17:21 | Hospitalist Progress Note ---
Date of Service May 08, 2020 Assessment & Plan (1) Cholecystitis: Suspected based on outpatient imaging and US here HIDA scan also suggesting acute cholecystitis - surgery updated LFTs and bili continue to be normal Continue ceftriaxone and metronidazole Continue LR @ 500 mls/ hr Will give clear liquids tonight and then npo after mn Hold apixaban for possible surgery Take vital signs q4h (2) GERD (gastroesophageal reflux disease): Continue famotidine and omeprazole. (3) COPD (chronic obstructive pulmonary disease): Continue usual maintenance inhalers. No acute exacerbation (4) Sleep apnea: CPAP (5) Antineoplastic chemotherapy induced pancytopenia: Hgb decreased this morning but stable on repeat check, platelets 82,000 Isolation precautions for neutropenia. (6) Hypothyroid: TSH WNL in Nov Continue levothyroxine 137 mcg PO daily (7) Colon cancer metastasized to lung: Complex history since 2007 currently on chemotherapy. RUL nodule increased in size not discussed with patient - will need to follow up with Dr. Ramirez (8) Port-A-Cath in place: noted (9) DVT prophylaxis: Hold apixaban as above (10) Hypotension: resolved with IVF, lactic was 2.2 and then 1.7 Admission and Anticipated Discharge Date Admission Date: May 07, 2020 Subjective Ms. Bee is hungry today, she also continues to be nauseas. No further vomiting. She is having some right upper quadrant tenderness. ROS Constitutional: no chills, aches, sweats or fever Respiratory: no sob,cough, sputum, or wheezing Cardiac: no chest pain, palpitations, edema, orthopnea or lightheadedness GI: see HPI : no dysuria or hesitancy Extremities: no joint pain or weakness Skin: no rash All other systems reviewed and negative Physical Exam 2 Physical Exam: General: no distress Eyes: normal inspection, PERLL Respiratory: chest non tender, clear to auscultation, normal breath sounds, no respiratory distress, no accessory muscle use Cardiac: regular rate and rhythm, no rub or gallop, no murmur, no edema, no jvd GI/: active bowel sounds, no abd pain or tenderness, soft, non distended Extremities: normal range of motion, normal strength, non tender Neuro/Psych: alert and oriented x 3, normal mood and affect Skin: normal color, dry Results & Data Results & Data ([facility]) Vital Signs (Past 12 Hours) Vital Signs Temp Pulse Resp BP BP Pulse Ox 05/08/20 14:59 36.3 C L 116 H 17 158/93 H 97 05/08/20 11:10 96/86 L 05/08/20 07:31 36.7 C 89 16 86/60 L 93 PG Care Time/CCT Total # of Minutes Spent Total Time Spent with Patient: Total time spent is greater than 50% in coordination of care (as documented) at patient's floor/unit and/or counseling patient: Coding Level of Care Code 40216 Subseq Hosp Care Lvl 3 Diagnoses Cholecystitis K81.9 GERD (gastroesophageal reflux disease) K21.9 Esophagitis presence: esophagitis presence not specified COPD (chronic obstructive pulmonary disease) J44.9 Sleep apnea G47.30 Antineoplastic chemotherapy induced pancytopenia D61.810; T45.1X5A Hypothyroid E03.9 Hypothyroidism type: acquired Colon cancer metastasized to lung C18.9; C78.00 Port-A-Cath in place Z95.828 DVT prophylaxis Z29.9 Hypotension I95.9 (1) GERD (gastroesophageal reflux disease) Esophagitis presence: esophagitis presence not specified Qualified Code(s): K21.9 - Gastro-esophageal reflux disease without esophagitis (2) Hypothyroid Hypothyroidism type: acquired Qualified Code(s): E03.9 - Hypothyroidism, unspecified
[2020-05-08] MEDS: ASPIRIN 81 MG ECTAB PO SCH (19:55)
[2020-05-08] MEDS: SIMVASTATIN 40 MG TAB PO SCH (20:10)
[2020-05-08] MEDS: SERTRALINE HCL 50 MG TABLET PO SCH (20:11)
[2020-05-08] MEDS: FLUTICASONE FUROATE 200MCG 14 PUFFS/INHALER INH SCH (20:11)
[2020-05-08] MEDS: ONDANSETRON INJ 2 MG/ML 2 ML VIAL IV PRN (20:57)
--- NOTE | 2020-05-08 22:45 | Electrocardiogram Report ---
Test Reason : Blood Pressure : / mmHG Vent. Rate : 093 BPM Atrial Rate : 093 BPM P-R Int : 174 ms QRS Dur : 086 ms QT Int : 368 ms P-R-T Axes : 026 058 044 degrees QTc Int : 457 ms Normal sinus rhythm Normal ECG When compared with ECG of 08-FEB-2020 17:18, No significant change was found Confirmed by Albert Flor ([id number] on 05/08/2020 10:45:38 PM Referred By: REFERRED SELF Confirmed By:Albert Flor
[2020-05-09] MEDS: LACTATED RINGER'S 1,000 ML IV SCH ×2 (00:11→12:49)
[2020-05-09] MEDS ORDERED: ONDANSETRON INJ 2 MG/ML 2 ML VIAL IV STA (00:21)
[2020-05-09] MEDS: metroNIDAZOLE 500 MG/100 ML BAG IV SCH ×3 (05:34→21:07)
[2020-05-09] MEDS: LEVOTHYROXINE SODIUM 137 MCG TABLET PO SCH (05:35)
[2020-05-09 06:21] LABS: Hematocrit (blood only) 24.8 % (37-47); Mean Corpuscular Hemoglobin 34.5 pg (25-34); Mean Corpuscular Hgb Conc 32.3 g/dL (32-36); Mean Corpuscular Volume 106.9 fL (80-100); RDW Coefficient of Variation 18.2 % (11.5-14.5); Red Blood Count 2.32 M/uL (4.2-5.4); White Blood Count 2.11 K/uL (4.8-10.8)
[2020-05-09 06:32] LABS: Mean Platelet Volume 10.5 fL (7.4-10.4); Platelet Count 89 K/uL (130-400)
[2020-05-09 06:53] LABS: BUN Creatinine Ratio 6.7 (10-20); Calcium 8.4 mg/dl (8.5-10.1); Est GFR (African American) 52.1; Est GFR (Non-African American) 44.9; Potassium 3.6 mmol/L (3.5-5.1)
[2020-05-09 06:55] LABS: Bilirubin,Total 0.5 mg/dl (0.2-1); Globulin 2.9 gm/dl (2.5-4.0); Total Protein 5.9 gm/dl (6.4-8.2)
[2020-05-09 07:50] LABS: Basophils # (auto) 0.01 K/uL (0-0.2); Basophils % (auto) 0.5 %; Eosinophils % (auto) 4.7 %; Lymphocytes # (auto) 1.03 K/uL (1.2-3.4); Lymphocytes % (auto) 48.8 %; Monocytes # (auto) 0.13 K/uL (0.11-0.59); Monocytes % (auto) 6.2 %; Neutrophils # (auto) 0.84 K/uL (1.4-6.5); Neutrophils % (auto) 39.8 %; Toxic Granulation 1+
[2020-05-09] MEDS: MULTIVITAMIN TAB PO SCH (09:36)
[2020-05-09] MEDS: ASCORBIC ACID 500 MG TAB PO SCH ×2 (09:36→21:07)
[2020-05-09] MEDS: MAGNESIUM OXIDE 400 MG TAB PO SCH ×2 (09:37→21:07)
[2020-05-09] MEDS: METOPROLOL TARTRATE 50 MG TAB PO SCH ×3 (09:37→21:07)
[2020-05-09] MEDS: PANTOprazole 40 MG TAB PO SCH (09:38)
[2020-05-09] MEDS: CHOLECALCIFEROL 1,000 UNITS 25 MCG TAB PO SCH ×2 (09:38→21:07)
[2020-05-09] MEDS: FAMOTIDINE 20 MG in SYRINGE 3 ML IV SCH (10:25)
--- NOTE | 2020-05-09 11:20 | Surgery Progress Note ---
Date of Service May 09, 2020 Assessment & Plan (1) Cholecystitis: 69 year-old female with history of metastatic colon cancer to lung s/p lung resection x 4 on current chemotherapy who presented to ED with outpatient CT scan concerning for acute cholecystitis. HIDA scan showing cystic duct o bstruction consistent with acute cholecystitis. 05/08/2020: Hypotensive with systolic BP in 80's-90's with lactic acid at 2.2. Given IV fluid bolus. Repeat lactic acid 1.7 and BP normalized to systolic 150's. Given her chemotherapy she is pancytopenic. Hemoglobin 7.7. Platelets 95K Received PO Eliquis evening of 05/07/2020 and morning of 05/08/2020. 05/09/2020: vitals stable, afebrile Continues to be pancytopenic Platelets decreased to 89k (170k on 04/28/2020) She is only 24 hours s/p last dose of Eliquis Hemoglobin 8.0 today. Not in acute distress Plan: Patient has evidence of acute cholecystitis with cystic duct obstruction however she does not have peritonitis or in acute distress. Given her pancytopenia and being only 24 hours s/p last dose of Eliquis with Creatinine clearance of only 45 she is at increased risk of bleeding intraoperatively. Dr. Ibrahim discussed patient with Dr. Huggins who recommended at least 48 hours from last dose of Eliquis to consider surgical intervention. Would recommend Type and Cross and possible transfusion given Hemoglobin of 8. Would also recommend platelet transfusion night prior to proposed operative date to ensure her pl atelets rise appropriately. Dr. Ibrahim discussed lab results, implications, recommendations, and risks with patient. Surgery is definitively postponed today as she is only 24 hours after last admi nistration of Eliquis. Plan for possible surgery Tuesday or Tuesday of next week. She is okay to have liquids --> low fat diet over weekend. Dr. Ibrahim also discussed option of cholecystostomy tube if she were to become more symptomatic or ill from acute cholecystitis which would require transfer to tertiary center. Continue IV antibiotics Dr. Ibrahim discussed patient with Dr. Richardson who is covering for weekend Continue medical management Dr. Ibrahim has seen and examined patient , agrees with above. Subjective feeling better this am, had a rough night with heartburn and indigestion. Had nausea but no vomiting. Did not have RUQ abdominal pain last night. She would like to have surgery today if possible. Physical Exam Constitutional: WD/WN, vitals as above + obese; no acute distress Respiratory: normal respiratory effort; no respiratory distress Gastrointestinal (Abdomen): Inspection/Auscultation: abdomen normal to inspection; abdomen not distended Percussion/Palpation: + abdomen tender (epigastrium and RUQ but mild) and abdomen soft; no guarding and abdomen not rigid Skin: no rashes, warm and dry Psychiatric: A+Ox3, euthymic affect Results & Data Vital Signs (Past 12 Hours) Vital Signs Temp Pulse Resp BP Pulse Ox 05/09/20 07:01 36.8 C 91 H 19 127/79 95 05/09/20 03:08 37 C 92 H 18 122/68 98 05/08/20 23:35 36.9 C 90 16 97/62 L 96 Laboratory Results 05/09/20 05/09/20 05/08/20 Range/Units 05:35 05:35 13:20 WBC 2.11 L (4.8-10.8) K/uL RBC 2.32 L (4.2-5.4) M/uL Hgb 8.0 L (12.0-16.0) g/dL Hct 24.8 L (37-47) % MCV 106.9 H (80-100) fL MCH 34.5 H (25-34) pg MCHC 32.3 (32-36) g/dL RDW Std Deviation 70.0 H (36.4-46.3) fL RDW Coeff of Marcell 18.2 H (11.5-14.5) % Plt Count 89 L (130-400) K/uL MPV 10.5 H (7.4-10.4) fL Immature Gran % (Auto) 0.0 % Neut % (Auto) 39.8 % Lymph % (Auto) 48.8 % Ripley % (Auto) 6.2 % Eos % (Auto) 4.7 % Baso % (Auto) 0.5 % Immature Gran # (Auto) 0.00 (0.00-0.02) K/uL Neut # (Auto) 0.84 L* (1.4-6.5) K/uL Lymph # (Auto) 1.03 L (1.2-3.4) K/uL Ripley # (Auto) 0.13 (0.11-0.59) K/uL Eos # (Auto) 0.10 (0-0.5) K/uL Baso # (Auto) 0.01 (0-0.2) K/uL Toxic Granulation 1+ Anisocytosis Macrocytosis Tear Drop Cells Sodium 144 141 (136-145) mmol/L Potassium 3.6 3.6 (3.5-5.1) mmol/L Chloride 109 H 110 H (98-107) mmol/L Carbon Dioxide 27 27 (21-32) mmol/L Anion Gap 8.0 4.0 (3-11) BUN 8 11 (7-18) mg/dl Creatinine 1.24 H 1.14 (0.6-1.2) mg/dl Est Cr Clr Drug Dosing 57.0 61.8 ml/min Est GFR ( Amer) 52.1 57.6 Est GFR (Non-Af Amer) 44.9 49.7 BUN/Creatinine Ratio 6.7 L 9.4 L (10-20) Glucose 91 87 (70-99) mg/dl Lactate (0.4-2.0) mmol/L Calcium 8.4 L 8.1 L (8.5-10.1) mg/dl Total Bilirubin 0.5 0.6 (0.2-1) mg/dl AST 25 22 (15-37) U/L ALT 23 24 (12-78) U/L Alkaline Phosphatase 79 82 (45-117) U/L Total Protein 5.9 L 6.0 L (6.4-8.2) gm/dl Albumin 3.0 L 2.9 L (3.4-5.0) gm/dl Globulin 2.9 3.1 (2.5-4.0) gm/dl Albumin/Globulin Ratio 1.0 0.9 (0.9-2) 05/08/20 05/08/20 Range/Units 13:20 11:35 WBC 2.34 L (4.8-10.8) K/uL RBC 2.30 L (4.2-5.4) M/uL Hgb 8.1 L (12.0-16.0) g/dL Hct 24.6 L (37-47) % MCV 107.0 H (80-100) fL MCH 35.2 H (25-34) pg MCHC 32.9 (32-36) g/dL RDW Std Deviation 70.1 H (36.4-46.3) fL RDW Coeff of Marcell 18.0 H (11.5-14.5) % Plt Count 82 L (130-400) K/uL MPV 10.0 (7.4-10.4) fL Immature Gran % (Auto) 0.4 % Neut % (Auto) 42.7 % Lymph % (Auto) 46.6 % Ripley % (Auto) 5.6 % Eos % (Auto) 4.3 % Baso % (Auto) 0.4 % Immature Gran # (Auto) 0.01 (0.00-0.02) K/uL Neut # (Auto) 1.00 L (1.4-6.5) K/uL Lymph # (Auto) 1.09 L (1.2-3.4) K/uL Ripley # (Auto) 0.13 (0.11-0.59) K/uL Eos # (Auto) 0.10 (0-0.5) K/uL Baso # (Auto) 0.01 (0-0.2) K/uL Toxic Granulation Anisocytosis Present Macrocytosis Present Tear Drop Cells 1+ Sodium (136-145) mmol/L Potassium (3.5-5.1) mmol/L Chloride (98-107) mmol/L Carbon Dioxide (21-32) mmol/L Anion Gap (3-11) BUN (7-18) mg/dl Creatinine (0.6-1.2) mg/dl Est Cr Clr Drug Dosing ml/min Est GFR ( Amer) Est GFR (Non-Af Amer) BUN/Creatinine Ratio (10-20) Glucose (70-99) mg/dl Lactate 1.7 (0.4-2.0) mmol/L Calcium (8.5-10.1) mg/dl Total Bilirubin (0.2-1) mg/dl AST (15-37) U/L ALT (12-78) U/L Alkaline Phosphatase (45-117) U/L Total Protein (6.4-8.2) gm/dl Albumin (3.4-5.0) gm/dl Globulin (2.5-4.0) gm/dl Albumin/Globulin Ratio (0.9-2) Diagnostic Findings NM hepatobiliary CLINICAL HISTORY: Right upper quadrant abdominal pain. Abnormal gallbladder ultrasound. COMPARISON STUDY: Biliary ultrasound dated 05/07/2020 FINDINGS: The patient was injected with 5.5 mCi of technetium 99 M Choletec. Anterior imaging was performed. Hepatic excretion appeared unremarkable. The gallbladder was not visualized on imaging up to 1 hour. This reason delayed im aging at 4 hours was performed. No gallbladder activity is identified. There was normal passage of activity into small bowel. IMPRESSION: Nonvisualization of the gallbladder. The findings are consistent with cystic duct obstruction as would be seen in acute cholecystitis.
[2020-05-09] MEDS: cefTRIAXone SODIUM 2,000 MG in DEXTROSE 5% 50 ML IV SCH (12:51)
--- NOTE | 2020-05-09 15:40 | Hospitalist Progress Note ---
Date of Service May 09, 2020 Assessment & Plan (1) Cholecystitis: Initially seen on outpatient imaging and then on US here HIDA scan also suggesting acute cholecystitis LFTs and bili continue to be normal Continue ceftriaxone and metronidazole Hold apixaban for possible surgery Take vital signs q4h Discussed plan with surgery today - Because of patient's low platelets and having been on Eliquis and as patient is stable, will hold off on surgery to let Eliquis run out of patient's system. Patient will need typed and crossed and receive platelets Tuesday in preparation for surgery on Tuesday. (2) GERD (gastroesophageal reflux disease): Continue famotidine and omeprazole. (3) COPD (chronic obstructive pulmonary disease): Continue usual maintenance inhalers. No acute exacerbation (4) Sleep apnea: CPAP (5) Antineoplastic chemotherapy induced pancytopenia: Stable but all counts remain low. Isolation precautions for neutropenia. Consulted heme/onc - no need for neupogen at this time (6) Hypothyroid: TSH WNL in Nov Continue levothyroxine 137 mcg PO daily (7) Colon cancer metastasized to lung: Complex history since 2007 currently on chemotherapy. RUL nodule increased in size not discussed with patient - will need to follow up with Dr. Ramirez Heme/onc consulted as above (8) Port-A-Cath in place: noted (9) Hypotension: resolved with IVF, lactic was 2.2 and then 1.7 Continue IVF (10) Diarrhea: Multiple liquid bowel movements this afternoon, will recheck hgb and a C diff (11) DVT prophylaxis: Hold apixaban as above SCDs Admission and Anticipated Discharge Date Admission Date: May 07, 2020 Subjective Ms. Bee is having less pain today. Her vital signs have normalized. She is not nauseas and feels hungry. Loose bowels, about 2 bms per day but then this afternoon with 4 bms over an hour. ROS Constitutional: no chills, aches, sweats or fever Respiratory: no sob,cough, sputum, or wheezing Cardiac: no chest pain, palpitations, edema, orthopnea or lightheadedness GI: no abdominal pain, nausea, vomiting, diarrhea or constipation : no dysuria or hesitancy Extremities: no joint pain or weakness Skin: no rash All other systems reviewed and negative Physical Exam Physical Exam: General: no distress Eyes: normal inspection, PERLL Respiratory: chest non tender, clear to auscultation, normal breath sounds, no respiratory distress, no accessory muscle use Cardiac: regular rate and rhythm, no rub or gallop, no murmur, no edema, no jvd GI/: active bowel sounds, no abd pain or tenderness, soft, non distended Extremities: normal range of motion, normal strength, non tender Neuro/Psych: alert and oriented x 3, normal mood and affect Skin: normal color, dry Results & Data Results & Data ([facility]) Vital Signs (Past 12 Hours) Vital Signs Temp Pulse Resp BP BP Pulse Ox 05/09/20 15:13 36.9 C 90 20 138/71 95 05/09/20 13:49 91 H 151/85 H 05/09/20 12:04 36.8 C 89 16 119/69 92 05/09/20 07:01 36.8 C 91 H 19 127/79 95 PG Care Time/CCT Total # of Minutes Spent Total Time Spent with Patient: Total time spent is greater than 50% in coordination of care (as documented) at patient's floor/unit and/or counseling patient: Coding Level of Care Code 48963 Subseq Hosp Care Lvl 3 Diagnoses Cholecystitis K81.9 GERD (gastroesophageal reflux disease) K21.9 Esophagitis presence: esophagitis presence not specified COPD (chronic obstructive pulmonary disease) J44.9 Sleep apnea G47.30 Antineoplastic chemotherapy induced pancytopenia D61.810; T45.1X5A Hypothyroid E03.9 Hypothyroidism type: acquired Colon cancer metastasized to lung C18.9; C78.00 Port-A-Cath in place Z95.828 Hypotension I95.9 Diarrhea R19.7 DVT prophylaxis Z29.9 (1) Hypothyroid Hypothyroidism type: acquired Qualified Code(s): E03.9 - Hypothyroidism, unspecified (2) GERD (gastroesophageal reflux disease) Esophagitis presence: esophagitis presence not specified Qualified Code(s): K21.9 - Gastro-esophageal reflux disease without esophagitis
[2020-05-09] MEDS: COLESTIPOL HCL 1 GM TAB PO SCH (16:05)
[2020-05-09] MEDS: ONDANSETRON INJ 2 MG/ML 2 ML VIAL IV PRN (18:33)
[2020-05-09] MEDS: SERTRALINE HCL 50 MG TABLET PO SCH (21:07)
[2020-05-09] MEDS: ASPIRIN 81 MG ECTAB PO SCH (21:07)
[2020-05-09] MEDS: SIMVASTATIN 40 MG TAB PO SCH (21:07)
[2020-05-09] MEDS: HEPARIN SOD 5,000 UNIT/0.5 ML VIAL SQ SCH (21:08)
[2020-05-09] MEDS: FLUTICASONE FUROATE 200MCG 14 PUFFS/INHALER INH SCH (21:08)
[2020-05-10] MEDS: LACTATED RINGER'S 1,000 ML IV SCH ×3 (00:07→19:03)
[2020-05-10] MEDS: ALUMINUM/MAGNESIUM SUSP 30 ML UDC PO PRN (00:08)
[2020-05-10] MEDS: ONDANSETRON INJ 2 MG/ML 2 ML VIAL IV PRN ×3 (04:41→19:08)
[2020-05-10] MEDS: metroNIDAZOLE 500 MG/100 ML BAG IV SCH ×3 (05:29→21:55)
[2020-05-10] MEDS: LEVOTHYROXINE SODIUM 137 MCG TABLET PO SCH (05:34)
[2020-05-10 06:27] LABS: Hematocrit (blood only) 22.9 % (37-47); Hemoglobin 7.5 g/dL (12.0-16.0); Mean Corpuscular Hemoglobin 35.2 pg (25-34); Mean Corpuscular Hgb Conc 32.8 g/dL (32-36); Mean Corpuscular Volume 107.5 fL (80-100); RDW Standard Deviation 70.5 fL (36.4-46.3); Red Blood Count 2.13 M/uL (4.2-5.4); White Blood Count 1.56 K/uL (4.8-10.8)
--- NOTE | 2020-05-10 06:39 | Surgery Progress Note ---
Date of Service May 10, 2020 Assessment & Plan (1) Cholecystitis: Patient is awake and alert and had some nausea during the night She is sitting in bed and smiling and does not have significant abdominal pain She appears to be hungry and would like more for breakfast We will try full liquid low-fat diet Plan as outlined by Dr. Ibrahim Results & Data Vital Signs (Past 12 Hours) Vital Signs Temp Pulse Resp BP Pulse Ox 05/10/20 03:44 36.9 C 84 16 130/82 97 05/09/20 23:14 36.9 C 87 16 148/81 H 98 05/09/20 19:18 36.9 C 89 20 139/81 95 PG Care Time/CCT Total # of Minutes Spent Total Time Spent with Patient: Total time spent is greater than 50% in coordination of care (as documented) at patient's floor/unit and/or counseling patient: Coding Level of Care Code 37477 Subseq Hosp Care Lvl 2 Diagnoses Cholecystitis K81.9
[2020-05-10 07:04] LABS: Albumin Level 2.7 gm/dl (3.4-5.0); BUN Creatinine Ratio 5.4 (10-20); Calcium 8.3 mg/dl (8.5-10.1); Creatinine Clr Calc Pharmacy 59.6 ml/min; Est GFR (African American) 54.7; Est GFR (Non-African American) 47.2; Magnesium 1.9 mg/dl (1.8-2.4); Potassium 3.5 mmol/L (3.5-5.1)
[2020-05-10 07:07] LABS: Bilirubin,Total 0.3 mg/dl (0.2-1); Globulin 2.7 gm/dl (2.5-4.0); Total Protein 5.4 gm/dl (6.4-8.2)
[2020-05-10 07:39] LABS: Mean Platelet Volume 11.5 fL (7.4-10.4); Platelet Count 88 K/uL (130-400)
[2020-05-10 07:44] LABS: Basophils # (auto) 0.02 K/uL (0-0.2); Basophils % (auto) 1.3 %; Eosinophils # (auto) 0.06 K/uL (0-0.5); Eosinophils % (auto) 3.8 %; Lymphocytes # (auto) 0.86 K/uL (1.2-3.4); Lymphocytes % (auto) 55.1 %; Monocytes # (auto) 0.11 K/uL (0.11-0.59); Monocytes % (auto) 7.1 %; Neutrophils # (auto) 0.51 K/uL (1.4-6.5); Neutrophils % (auto) 32.7 %
[2020-05-10 07:45] LABS: Tear Drop Cells 1+; Toxic Granulation 1+
[2020-05-10] MEDS: METOPROLOL TARTRATE 50 MG TAB PO SCH ×3 (08:56→20:25)
[2020-05-10] MEDS: MAGNESIUM OXIDE 400 MG TAB PO SCH ×2 (08:56→20:25)
[2020-05-10] MEDS: PANTOprazole 40 MG TAB PO SCH (08:57)
[2020-05-10] MEDS: MULTIVITAMIN TAB PO SCH (08:57)
[2020-05-10] MEDS: CHOLECALCIFEROL 1,000 UNITS 25 MCG TAB PO SCH ×2 (08:58→20:26)
[2020-05-10] MEDS: ASCORBIC ACID 500 MG TAB PO SCH ×2 (08:58→20:26)
[2020-05-10] MEDS: HEPARIN SOD 5,000 UNIT/0.5 ML VIAL SQ SCH ×2 (09:10→20:23)
[2020-05-10] MEDS: FAMOTIDINE 20 MG in SYRINGE 3 ML IV SCH (09:14)
[2020-05-10 09:37] LABS: Microcytosis Present
[2020-05-10] MEDS ORDERED: FILGRASTIM 300 MCG/ML VIAL SQ ONE (11:00)
[2020-05-10] MEDS: cefTRIAXone SODIUM 2,000 MG in DEXTROSE 5% 50 ML IV SCH (13:05)
[2020-05-10] MEDS: COLESTIPOL HCL 1 GM TAB PO SCH (15:52)
--- NOTE | 2020-05-10 16:19 | Hospitalist Progress Note ---
Date of Service May 10, 2020 Assessment & Plan (1) Cholecystitis: Initially seen on outpatient imaging and then on US here HIDA scan also suggesting acute cholecystitis LFTs and bili continue to be normal Continue ceftriaxone and metronidazole Hold apixaban for possible surgery Take vital signs q4h Discussed plan with surgery today - Because of patient's low platelets and having been on Eliquis and as patient is stable, will hold off on surgery to let Eliquis run out of patient's system. Patient will need typed and crossed and receive platelets Tuesday in preparation for surgery on Tuesday. Discussed with Dr. Ramirez from heme/onc - recommends single donor platelets be given one hour prior to surgery. Will give Neupogen x 3 days. (2) GERD (gastroesophageal reflux disease): Continue famotidine and omeprazole. (3) COPD (chronic obstructive pulmonary disease): Continue usual maintenance inhalers. No acute exacerbation (4) Sleep apnea: CPAP (5) Antineoplastic chemotherapy induced pancytopenia: Stable but all counts remain low. Isolation precautions for neutropenia. Consulted heme/onc - will give Neupogen as above, see above for platelet recommendation pre-op (6) Hypothyroid: TSH WNL in Nov Continue levothyroxine 137 mcg PO daily (7) Colon cancer metastasized to lung: Complex history since 2007 currently on chemotherapy. RUL nodule increased in size not discussed with patient - will need to follow up with Dr. Ramirez Heme/onc consulted as above (8) Port-A-Cath in place: noted (9) Hypotension: resolved with IVF, lactic was 2.2 and then 1.7 Continue IVF (10) Diarrhea: Multiple liquid bowel movements this afternoon, C diff neg (11) DVT prophylaxis: Hold apixaban as above, heparin subq bid SCDs Admission and Anticipated Discharge Date Admission Date: May 07, 2020 Subjective Ms. Bee has some epigastric discomfort but otherwise does not have complaints. ROS Constitutional: no chills, aches, sweats or fever Respiratory: no sob,cough, sputum, or wheezing Cardiac: no chest pain, palpitations, edema, orthopnea or lightheadedness GI: no abdominal pain, nausea, vomiting, diarrhea or constipation : no dysuria or hesitancy Extremities: no joint pain or weakness Skin: no rash All other systems reviewed and negative Physical Exam Physical Exam: General: no distress Eyes: normal inspection, PERLL Respiratory: chest non tender, clear to auscultation, normal breath sounds, no respiratory distress, no accessory muscle use Cardiac: regular rate and rhythm, no rub or gallop, no murmur, no edema, no jvd GI/: active bowel sounds, no abd pain or tenderness, soft, non distended Extremities: normal range of motion, normal strength, non tender Neuro/Psych: alert and oriented x 3, normal mood and affect Skin: normal color, dry Results & Data Results & Data ([facility]) Vital Signs (Past 12 Hours) Vital Signs Temp Pulse Pulse Resp BP Pulse Ox 05/10/20 15:00 36.6 C 80 18 118/66 96 05/10/20 14:08 97 H 113/70 05/10/20 12:00 36.6 C 72 16 140/70 97 05/10/20 07:46 36.8 C 88 16 111/68 97 PG Care Time/CCT Total # of Minutes Spent Total Time Spent with Patient: Total time spent is greater than 50% in coordination of care (as documented) at patient's floor/unit and/or counseling patient: Coding Level of Care Code 93501 Subseq Hosp Care Lvl 3 Diagnoses Cholecystitis K81.9 GERD (gastroesophageal reflux disease) K21.9 Esophagitis presence: esophagitis presence not specified COPD (chronic obstructive pulmonary disease) J44.9 Sleep apnea G47.30 Antineoplastic chemotherapy induced pancytopenia D61.810; T45.1X5A Hypothyroid E03.9 Hypothyroidism type: acquired Colon cancer metastasized to lung C18.9; C78.00 Port-A-Cath in place Z95.828 Hypotension I95.9 Diarrhea R19.7 DVT prophylaxis Z29.9 (1) GERD (gastroesophageal reflux disease) Esophagitis presence: esophagitis presence not specified Qualified Code(s): K21.9 - Gastro-esophageal reflux disease without esophagitis (2) Hypothyroid Hypothyroidism type: acquired Qualified Code(s): E03.9 - Hypothyroidism, unspecified
--- NOTE | 2020-05-10 19:19 | Consultation Report ---
DATE OF CONSULTATION: 05/10/2020 MEDICAL ONCOLOGY CONSULTATION REASON FOR CONSULTATION: A 69-year-old metastatic colorectal cancer patient admitted with radiographically evident cholecystitis. HISTORY OF PRESENT ILLNESS: Marie is a morbidly obese 69-year-old female patient well known to [facility], currently under my care for metastatic colorectal cancer. The patient has battled with her cancer for well over a decade now. She has had heavy pretreatment and is currently on high-dose 5-FU and leucovorin, which was last administered on 04/29. Upon her most recent followup, she underwent a CT scan of the chest, abdomen and pelvis, which revealed a mixed picture in regards to response to current treatment, specifically in the chest with slight increase in the right upper lobe nodule about 1.1 cm, slight decrease in size of previously described right paratracheal lymph node and a right suprahilar nodule also slightly increased. More concerning of what was found in the abdomen, specifically interval development of gallbladder wall thickening and pericholecystic inflammatory change in conjunction with cholelithiasis suspicious for acute cholecystitis. Interestingly, Marie has been relatively asymptomatic; however, she does recall bouts of abdominal pain on various occasions prior to admission. She thought it might have been related to chemotherapy. She denies any fevers or chills. Her appetite has remained stable, offers no particular complaints at bedside. She is pending laparoscopic cholecystectomy on Tuesday by Dr. Price. As a result of her pretreatment, Marie suffers from chronic leukopenia and thrombocytopenia. Her current ANC is slightly over 500. General surgery service would like to see an improved ANC prior to taking her to the operating room. PAST MEDICAL HISTORY: Positive for metastatic colorectal cancer, gastroesophageal reflux disease, obstructive sleep apnea, thyroid dysfunction, and depression. PAST SURGICAL HISTORY: Left colectomy on 09/18/2008, right thoracotomy, wedge resection of right upper lobe lesion, right upper lobectomy on 07/13/2008, left VATS which resected left upper lobe lesion on 08/24/2011, partial hysterectomy in 1998, tubal ligation in 1993, tonsillectomy in 1974, incisional hernia performed by Dr. Garay. MEDICATIONS: Prior to admission include albuterol 2 puffs inhaled q.6 hours p.r.n., apixaban 5 mg p.o. b.i.d., glucosamine/chondroitin sulfate 1 capsule p.o. b.i.d., multivitamin 1 tablet p.o. daily, sertraline 50 mg p.o. at bedtime, simvastatin 40 mg p.o. daily, magnesium oxide 800 mg p.o. b.i.d., potassium chloride 20 mEq p.o. b.i.d., vitamin C 500 mg p.o. b.i.d., aspirin 81 mg p.o. at bedtime, cholecalciferol 2000 units p.o. b.i.d., Colestid 1 gram p.o. every other day, levothyroxine 137 mcg p.o. daily, beclomethasone dipropionate 2 puffs inhaled b.i.d., ipratropium/albuterol 3 mL inhaled q.4 hours p.r.n., metoprolol tartrate 50 mg p.o. t.i.d., [place] 1 tablet p.o. q.8 hours p.r.n., omeprazole 40 mg p.o. daily, turmeric root extract 500 mg p.o. at bedtime. ALLERGIES: OXALIPLATIN, MORPHINE, MEPERIDINE, AND THIOPENTAL. FAMILY HISTORY: Mother at age 87 from thyroid cancer and hypertension. Father at age 81 from heart disease, skin cancer and COPD. One brother attributable to myocardial infarction. REVIEW OF SYSTEMS: As per HPI. The patient has been relatively asymptomatic. CONSTITUTIONAL: Denies fevers, chills or sweats. She is not anorexic or losing weight. SKIN: No acute rashes or lesions. HEENT: No headaches, lightheadedness or dizziness. She wears corrective lenses. No hearing deficits. No sinus symptoms, sore throat or dysphagia. LYMPHATICS: No history of lymphoproliferative disease. CARDIAC: No history of coronary artery disease, no angina or palpitations. PULMONARY: Positive for COPD. She is not acutely short of breath or dyspneic on exertion. No cough or hemoptysis. GASTROINTESTINAL: Negative for abdominal pain, nausea, vomiting, diarrhea or constipation, hematochezia or melena stools. GENITOURINARY: No hematuria, dysuria or urinary incontinence. PSYCHIATRIC: Negative for anxiety, depression or psychoses. ENDOCRINE: Positive for hypothyroidism. Negative for diabetes mellitus. MUSCULOSKELETAL: No focal muscle weakness. No arthralgias. NEUROLOGIC: Negative for seizure, stroke, or migraine headache. HEMATOLOGIC: Positive for cytopenias attributable to heavy chemotherapeutic pretreatment. PHYSICAL EXAMINATION: GENERAL: A 69-year-old morbidly obese female. Awake, alert and appropriate, in no acute distress. VITAL SIGNS: Temperature 36.8, pulse 88, respiratory rate 16, blood pressure 111/68. SKIN: Warm, dry, noncyanotic. No petechia, rash or ecchymosis. HEENT: Atraumatic, normocephalic. Eyes: PERRLA. Nares patent without rhinorrhea or discharge. Throat is clear. Tongue midline. Mucous membranes are moist. No buccal lesions or ulcerations. NECK: Bull neck. No apparent JVD or thyromegaly. HEART: Regular rate and rhythm. No clicks, rubs, murmurs or gallops. LUNGS: Clear to auscultation bilaterally. ABDOMEN: Soft, nontender, nondistended. Bowel sounds are hypoactive. No rigidity or guarding. EXTREMITIES: Musculoskeletal strength and pulses are equal in all 4 quadrants. No clubbing, cyanosis or edema. NEUROLOGICAL: Awake, alert and oriented x3. Cranial nerves are intact. LABORATORY DATA: WBC count 1560, hemoglobin 7.5, platelet count 88,000, absolute neutrophil count 510. Sodium 146, potassium 3.5, chloride 110, carbon dioxide 28, BUN 6, creatinine 1.19, albumin 2.7. IMPRESSION: 1. Radiographically apparent cholecystitis. 2. Gastroesophageal reflux disease. 3. Chronic obstructive pulmonary disease. 4. Obstructive sleep apnea. 5. Chemotherapeutically induced cytopenias. 6. Metastatic colorectal cancer (pulmonary metastasis). 7. Status post high-dose 5-FU and leucovorin, last administered 04/29/2020. PLAN: It was my pleasure to visit with Marie at bedside this morning. Marie has done remarkably well considering she has been battling colon cancer since 2007. This patient has been heavily pretreated, receiving every conceivable chemotherapeutic option out there. More recently has been receiving high-dose 5-FU and leucovorin, for the most part has kept her disease relatively stable with just slight increases in progression as revealed on her most recent CT scan of the chest. CT scan of the abdomen and pelvis, however, revealed gallbladder wall thickening and cholelithiasis. The patient has been relatively asymptomatic, but nonetheless Dr. Price wants to remove her gallbladder on Tuesday laparoscopically. He is concerned with her low white count and thrombocytopenia. Therefore, we will order Neupogen 480 mcg today and tomorrow, perhaps Tuesday if she does not go to the operating room. In regards to her platelet count, she could probably undergo a laparoscopic procedure without bleeding complications with her current counts. Nonetheless, if Dr. Price is not comfortable, she may receive single donor platelets an hour or 2 prior to her OR time. She was tentatively to receive her next course of chemotherapy this coming Tuesday; however, with current situation, we will plan on delaying for 1 week. If there are any questions or concerns, feel free to contact me at any time. Thank you very much for allowing me to participate in Marie's care.
[2020-05-10] MEDS: ASPIRIN 81 MG ECTAB PO SCH (20:24)
[2020-05-10] MEDS: SERTRALINE HCL 50 MG TABLET PO SCH (20:25)
[2020-05-10] MEDS: FLUTICASONE FUROATE 200MCG 14 PUFFS/INHALER INH SCH (20:25)
[2020-05-10] MEDS: SIMVASTATIN 40 MG TAB PO SCH (20:26)
[2020-05-11] MEDS: LACTATED RINGER'S 1,000 ML IV SCH ×2 (04:00→12:38)
[2020-05-11] MEDS: LEVOTHYROXINE SODIUM 137 MCG TABLET PO SCH (05:58)
[2020-05-11 06:02] LABS: Hematocrit (blood only) 22.3 % (37-47); Hemoglobin 7.1 g/dL (12.0-16.0); Mean Corpuscular Hemoglobin 35.1 pg (25-34); Mean Corpuscular Hgb Conc 31.8 g/dL (32-36); Mean Corpuscular Volume 110.4 fL (80-100); RDW Coefficient of Variation 18.3 % (11.5-14.5); RDW Standard Deviation 72.8 fL (36.4-46.3); Red Blood Count 2.02 M/uL (4.2-5.4); White Blood Count 2.01 K/uL (4.8-10.8)
[2020-05-11] MEDS: metroNIDAZOLE 500 MG/100 ML BAG IV SCH ×3 (06:04→21:43)
[2020-05-11 06:13] LABS: Mean Platelet Volume 11.3 fL (7.4-10.4); Platelet Count 85 K/uL (130-400)
[2020-05-11 06:40] LABS: Albumin Level 2.6 gm/dl (3.4-5.0); BUN Creatinine Ratio 3.7 (10-20); Calcium 8.2 mg/dl (8.5-10.1); Creatinine Clr Calc Pharmacy 63.1 ml/min; Est GFR (African American) 58.2; Est GFR (Non-African American) 50.3; Potassium 3.3 mmol/L (3.5-5.1)
[2020-05-11 06:42] LABS: Bilirubin,Total 0.5 mg/dl (0.2-1); Globulin 2.6 gm/dl (2.5-4.0); Total Protein 5.2 gm/dl (6.4-8.2)
[2020-05-11 07:22] LABS: Anisocytosis Present; Basophils # (auto) 0.02 K/uL (0-0.2); Eosinophils # (auto) 0.07 K/uL (0-0.5); Eosinophils % (auto) 3.5 %; Giant Platelets 1+; Immature Granulocytes # (auto) 0.01 K/uL (0.00-0.02); Immature Granulocytes % (auto) 0.5 %; Lymphocytes # (auto) 0.81 K/uL (1.2-3.4); Lymphocytes % (auto) 40.3 %; Monocytes # (auto) 0.14 K/uL (0.11-0.59); Neutrophils # (auto) 0.96 K/uL (1.4-6.5); Neutrophils % (auto) 47.7 %; Target Cells 1+; Tear Drop Cells 1+; Toxic Granulation 1+
[2020-05-11] MEDS ORDERED: POTASSIUM CHLORIDE 20 MEQ TABCR PO ONE (08:45)
[2020-05-11] MEDS: HEPARIN SOD 5,000 UNIT/0.5 ML VIAL SQ SCH ×2 (09:24→21:09)
[2020-05-11] MEDS: METOPROLOL TARTRATE 50 MG TAB PO SCH ×3 (09:26→21:21)
[2020-05-11] MEDS: MAGNESIUM OXIDE 400 MG TAB PO SCH ×2 (09:27→21:21)
[2020-05-11] MEDS: PANTOprazole 40 MG TAB PO SCH (09:27)
[2020-05-11] MEDS: CHOLECALCIFEROL 1,000 UNITS 25 MCG TAB PO SCH ×2 (09:27→21:23)
[2020-05-11] MEDS: ASCORBIC ACID 500 MG TAB PO SCH ×2 (09:27→21:22)
[2020-05-11] MEDS: MULTIVITAMIN TAB PO SCH (09:27)
--- NOTE | 2020-05-11 09:51 | Surgery Progress Note ---
Date of Service May 11, 2020 Assessment & Plan (1) Cholecystitis: Plt count 85, Neupogen started yesterday NPO tonight for possible OR pending AM labs Subjective full liquid diet, some heartburn, RUQ "spasms" Physical Exam Constitutional: WD/WN, vitals as above Results & Data Vital Signs (Past 12 Hours) Vital Signs Temp Pulse Resp BP BP Pulse Ox 05/11/20 07:14 36.9 C 83 16 92/56 L 93 05/11/20 03:54 36.8 C 86 16 104/68 96 05/10/20 23:17 37.1 C 90 16 123/77 95 PG Care Time/CCT Total # of Minutes Spent Total Time Spent with Patient: Total time spent is greater than 50% in coordination of care (as documented) at patient's floor/unit and/or counseling patient: Coding Level of Care Code 26375 Inpt Consult Level 1 Diagnoses Cholecystitis K81.9
[2020-05-11] MEDS: FAMOTIDINE 20 MG in SYRINGE 3 ML IV SCH (10:01)
[2020-05-11] MEDS ORDERED: SODIUM CHLORIDE 0.9% 250 ML IV PRN (10:38)
[2020-05-11] MEDS ORDERED: FILGRASTIM 300 MCG/ML VIAL SQ SCH (11:00)
[2020-05-11] MEDS: ONDANSETRON INJ 2 MG/ML 2 ML VIAL IV PRN (11:30)
[2020-05-11] MEDS: FILGRASTIM 480 MCG/1.6 ML VIAL SQ SCH (11:30)
--- NOTE | 2020-05-11 12:13 | Hospitalist Progress Note ---
Date of Service May 11, 2020 Assessment & Plan (1) Cholecystitis: Initially seen on outpatient imaging and then on US here HIDA scan also suggesting acute cholecystitis LFTs and bili continue to be normal Continue ceftriaxone and metronidazole Hold apixaban for possible surgery Take vital signs q4h Discussed plan with surgery - Because of patient's low platelets and having been on Eliquis and as patient is stable, will hold off on surgery to let Eliquis run out of patient's system. Discussed with Dr. Ramirze from heme/onc - recommends single donor platelets be given one hour prior to surgery. Will give Neupogen x 3 days. Platelets typed and crossed and placed on hold (2) Antineoplastic chemotherapy induced pancytopenia: Possibly with acute blood loss anemia as well given diarrhea Will give 1 unit prbcs as patient is symptomatic and hgb is 7.1. Will hold patient's home famotidine and po pantoprazole and change to bid pantoprazole pushes. Patient's platelets are 85,000, will hold off on transfusing platelets. Will also continue with heparin subq for dvt proph as patient is very high risk for clotting. Will consult GI Isolation precautions for neutropenia. Consulted heme/onc - will give Neupogen as above, see above for platelet recommendation pre-op (3) GERD (gastroesophageal reflux disease): Hold famotidine and omeprazole po as above (4) COPD (chronic obstructive pulmonary disease): Continue usual maintenance inhalers. No acute exacerbation (5) Sleep apnea: CPAP (6) Hypothyroid: TSH WNL in Nov Continue levothyroxine 137 mcg PO daily (7) Colon cancer metastasized to lung: Complex history since 2007 currently on chemotherapy. RUL nodule increased in size not discussed with patient - will need to follow up with Dr. Ramirez Heme/onc consulted as above (8) Port-A-Cath in place: noted (9) Hypotension: resolved with IVF, lactic was 2.2 and then 1.7 DC IVF (10) Diarrhea: C diff neg, unclear if this is due to GI bleed or antibiotics or chemotherapy. Will give imodium Consult GI as above (11) DVT prophylaxis: Hold apixaban as above, heparin subq bid SCDs Admission and Anticipated Discharge Date Admission Date: May 07, 2020 Subjective Ms. Bee has been having quite a lot of bowel movements over yesterday afternoon and last night. She describes them as dark and watery. She also feels a little lightheaded and woozy today. Her abdominal pain has improved. ROS Constitutional: no chills, aches, sweats or fever Respiratory: no sob,cough, sputum, or wheezing Cardiac: no chest pain, palpitations, edema, orthopnea or lightheadedness GI: see HPI : no dysuria or hesitancy Extremities: no joint pain or weakness Skin: no rash All other systems reviewed and negative Physical Exam Physical Exam: General: no distress Eyes: normal inspection, PERLL Respiratory: chest non tender, clear to auscultation, normal breath sounds, no respiratory distress, no accessory muscle use Cardiac: regular rate and rhythm, no rub or gallop, no murmur, no edema, no jvd GI/: active bowel sounds, no abd pain or tenderness, soft, non distended Extremities: normal range of motion, normal strength, non tender Neuro/Psych: alert and oriented x 3, normal mood and affect Skin: normal color, dry Results & Data Results & Data ([facility]) Vital Signs (Past 12 Hours) Vital Signs Temp Pulse Pulse Resp BP BP BP 05/11/20 11:58 36.7 C 88 18 120/76 05/11/20 07:14 36.9 C 83 16 92/56 L 05/11/20 03:54 36.8 C 86 16 104/68 Pulse Ox 05/11/20 11:58 94 05/11/20 07:14 93 05/11/20 03:54 96 PG Care Time/CCT Total # of Minutes Spent Total Time Spent with Patient: Total time spent is greater than 50% in coordination of care (as documented) at patient's floor/unit and/or counseling patient: Coding Level of Care Code 25995 Subseq Hosp Care Lvl 3 Diagnoses Cholecystitis K81.9 Antineoplastic chemotherapy induced pancytopenia D61.810; T45.1X5A GERD (gastroesophageal reflux disease) K21.9 Esophagitis presence: esophagitis presence not specified COPD (chronic obstructive pulmonary disease) J44.9 Sleep apnea G47.30 Hypothyroid E03.9 Hypothyroidism type: acquired Colon cancer metastasized to lung C18.9; C78.00 Port-A-Cath in place Z95.828 Hypotension I95.9 Diarrhea R19.7 DVT prophylaxis Z29.9 (1) Hypothyroid Hypothyroidism type: acquired Qualified Code(s): E03.9 - Hypothyroidism, unspecified (2) GERD (gastroesophageal reflux disease) Esophagitis presence: esophagitis presence not specified Qualified Code(s): K21.9 - Gastro-esophageal reflux disease without esophagitis
[2020-05-11] MEDS ORDERED: PANTOprazole 40 MG in SYRINGE 0 ML IV SCH (12:30)
[2020-05-11] MEDS: LOPERAMIDE HCL 2 MG CAP PO PRN ×3 (12:42→21:44)
[2020-05-11] MEDS ORDERED: Nursing to Pharmacy Communication SCH (14:00)
[2020-05-11] MEDS: cefTRIAXone SODIUM 2,000 MG in DEXTROSE 5% 50 ML IV SCH (14:34)
[2020-05-11] MEDS: COLESTIPOL HCL 1 GM TAB PO SCH (15:43)
[2020-05-11] MEDS: HEPARIN 100 UNIT/ML 5ML FLUSH FLUSH PRN ×2 (15:46→22:48)
[2020-05-11] MEDS: FLUTICASONE FUROATE 200MCG 14 PUFFS/INHALER INH SCH (21:20)
[2020-05-11] MEDS: ASPIRIN 81 MG ECTAB PO SCH (21:21)
[2020-05-11] MEDS: PANTOprazole 40 MG in SYRINGE 0 ML IV SCH (21:22)
[2020-05-11] MEDS: SIMVASTATIN 40 MG TAB PO SCH (21:23)
[2020-05-11] MEDS: SERTRALINE HCL 50 MG TABLET PO SCH (21:23)
[2020-05-12] MEDS: metroNIDAZOLE 500 MG/100 ML BAG IV SCH ×3 (06:20→23:28)
[2020-05-12] MEDS: LEVOTHYROXINE SODIUM 137 MCG TABLET PO SCH (06:22)
[2020-05-12 06:50] LABS: Hematocrit (blood only) 24.8 % (37-47); Mean Corpuscular Hgb Conc 32.3 g/dL (32-36); Mean Corpuscular Volume 105.5 fL (80-100); Nucleated RBC # (auto) 0.04 K/uL (0-0); Nucleated RBC % (auto) 3.1 %; Platelet Count 98 K/uL (130-400); RDW Coefficient of Variation 21.2 % (11.5-14.5); RDW Standard Deviation 80.4 fL (36.4-46.3); Red Blood Count 2.35 M/uL (4.2-5.4)
[2020-05-12 06:51] LABS: Basophils # (auto) 0.04 K/uL (0-0.2); Basophils % (auto) 3.1 %; Eosinophils # (auto) 0.05 K/uL (0-0.5); Eosinophils % (auto) 3.8 %; Immature Granulocytes # (auto) 0.12 K/uL (0.00-0.02); Immature Granulocytes % (auto) 9.2 %; Lymphocytes # (auto) 0.67 K/uL (1.2-3.4); Lymphocytes % (auto) 51.5 %; Monocytes # (auto) 0.25 K/uL (0.11-0.59); Monocytes % (auto) 19.2 %; Neutrophils # (auto) 0.17 K/uL (1.4-6.5); Neutrophils % (auto) 13.2 %; Ovalocytes 1+
[2020-05-12 06:59] LABS: Albumin Level 2.7 gm/dl (3.4-5.0); BUN Creatinine Ratio 2.5 (10-20); Bilirubin,Total 0.6 mg/dl (0.2-1); Calcium 8.4 mg/dl (8.5-10.1); Creatinine Clr Calc Pharmacy 60.4 ml/min; Est GFR (African American) 55.3; Est GFR (Non-African American) 47.7; Globulin 2.6 gm/dl (2.5-4.0); Potassium 3.4 mmol/L (3.5-5.1); Total Protein 5.3 gm/dl (6.4-8.2)
[2020-05-12] MEDS: MAGNESIUM OXIDE 400 MG TAB PO SCH ×2 (07:44→21:46)
[2020-05-12] MEDS: ASCORBIC ACID 500 MG TAB PO SCH ×2 (07:44→23:27)
[2020-05-12] MEDS: CHOLECALCIFEROL 1,000 UNITS 25 MCG TAB PO SCH ×2 (07:44→21:48)
[2020-05-12] MEDS: MULTIVITAMIN TAB PO SCH (07:44)
[2020-05-12] MEDS ORDERED: MoRPHine SULFATE 2 MG/ML CARP IV PRN (10:37)
[2020-05-12] MEDS ORDERED: HEPARIN SOD 5,000 UNIT/0.5 ML VIAL SQ STA (10:44)
--- NOTE | 2020-05-12 10:57 | Surgery Progress Note ---
Date of Service May 12, 2020 Assessment & Plan (1) Cholecystitis: 69 year-old female with history of metastatic colon cancer to lung s/p lung resection x 4 on current chemotherapy who presented to ED with outpatient CT scan concerning for acute cholecystitis. HIDA scan showing cystic duct o bstruction consistent with acute cholecystitis. 05/08/2020: Hypotensive with systolic BP in 80's-90's with lactic acid at 2.2. Given IV fluid bolus. Repeat lactic acid 1.7 and BP normalized to systolic 150's. Given her chemotherapy she is pancytopenic. Hemoglobin 7.7. Platelets 95K Received PO Eliquis evening of 05/07/2020 and morning of 05/08/2020. 05/09/2020: vitals stable, afebrile Continues to be pancytopenic Platelets decreased to 89k (170k on 04/28/2020) She is only 24 hours s/p last dose of Eliquis Hemoglobin 8.0 today. Not in acute distress 05/12/2020 -vitals stable, afebrile - s/p 1 unit of PRBCs, Hemoglobin 8 - Received Neupogen however wbc down to 1,000 and neutrophils down even more today to 170 (900 yesterday) Plan: Patient has evidence of acute cholecystitis with cystic duct obstruction however she does not have peritonitis or in acute distress. Surgery postponed originally because of Eliquis on board however now her wbc and neutrophils are low and continue to decrease despite Neupogen. Platelets slightly improved. Dr. Ibrahim discussed low counts with Dr. Kinney and she recommend against surgery today. May need another dose of Neupogen. OR postponed today Can have liquids today and then NPO after midnight for possible OR tomorrow. IV Morphine and PO Tylenol as needed for pain Continue IV antibiotics Dr. Ibrahim also discussed option of cholecystostomy tube if she were to become more symptomatic or ill from acute cholecystitis which would require transfer to tertiary center. Continue medical management Dr. Ibrahim has seen patient , agrees with above. Supervising Physician Co-Signing Physician Notes I interviewed and examined this patient I agree with the above note. She has no evidence of peritonitis. She will need her gallbladder out however after discussion with Dr. Kinney from internal medicine we feel that it would be more prudent to wait until her white blood cell count recovers. Subjective still having abdominal pain, not as bad as before having back pain because of bed still having loose stool that is dark but no blood or black/tarry stools Physical Exam Constitutional: WD/WN, vitals as above no acute distress and not ill appearing Respiratory: normal respiratory effort; no respiratory distress Skin: no rashes, warm and dry Psychiatric: A+Ox3, euthymic affect Results & Data Vital Signs (Past 12 Hours) Vital Signs Temp Pulse Pulse Resp BP Pulse Ox 05/12/20 07:16 36.9 C 88 16 137/76 91 05/11/20 23:01 37.0 C 89 18 127/75 96 Laboratory Results 05/12/20 05/12/20 05/10/20 Range/Units 05:38 05:38 05:35 WBC 1.30 L (4.8-10.8) K/uL RBC 2.35 L (4.2-5.4) M/uL Hgb 8.0 L (12.0-16.0) g/dL Hct 24.8 L (37-47) % MCV 105.5 H (80-100) fL MCH 34.0 (25-34) pg MCHC 32.3 (32-36) g/dL RDW Std Deviation 80.4 H (36.4-46.3) fL RDW Coeff of Marcell 21.2 H (11.5-14.5) % Plt Count 98 L (130-400) K/uL MPV 12.0 H (7.4-10.4) fL Immature Gran % (Auto) 9.2 % Neut % (Auto) 13.2 % Lymph % (Auto) 51.5 % [place] % (Auto) 19.2 % Eos % (Auto) 3.8 % Baso % (Auto) 3.1 % Immature Gran # (Auto) 0.12 H (0.00-0.02) K/uL Neut # (Auto) 0.17 L* (1.4-6.5) K/uL Lymph # (Auto) 0.67 L (1.2-3.4) K/uL [place] # (Auto) 0.25 (0.11-0.59) K/uL Eos # (Auto) 0.05 (0-0.5) K/uL Baso # (Auto) 0.04 (0-0.2) K/uL Absolute Nucleated RBC 0.04 H (0-0) K/uL Nucleated RBC % (auto) 3.1 % Ovalocytes 1+ Sodium 144 (136-145) mmol/L Potassium 3.4 L (3.5-5.1) mmol/L Chloride 109 H (98-107) mmol/L Carbon Dioxide 29 (21-32) mmol/L Anion Gap 6.0 (3-11) BUN 3 L (7-18) mg/dl Creatinine 1.18 (0.6-1.2) mg/dl Est Cr Clr Drug Dosing 60.4 ml/min Est GFR ( Amer) 55.3 Est GFR (Non-Af Amer) 47.7 BUN/Creatinine Ratio 2.5 L (10-20) Glucose 94 (70-99) mg/dl Calcium 8.4 L (8.5-10.1) mg/dl Total Bilirubin 0.6 (0.2-1) mg/dl AST 29 (15-37) U/L ALT 24 (12-78) U/L Alkaline Phosphatase 67 (45-117) U/L Total Protein 5.3 L (6.4-8.2) gm/dl Albumin 2.7 L (3.4-5.0) gm/dl Globulin 2.6 (2.5-4.0) gm/dl Albumin/Globulin Ratio 1.0 (0.9-2) Blood Type O Positive Antibody Screen NEGATIVE Crossmatch See Detail
--- NOTE | 2020-05-12 10:58 | Gastrointestinal Consultation ---
Date of Consultation May 12, 2020 Assessment & Plan (1) Diarrhea: -Obtain stool culture -Discussed etiologies could be related to gallbladder, antibiotics, infection, chemo, or previous CT findings suggestive of a nonspecific colitis. She believes that it is from antibiotics as she reports that she did not have diarrhea prior to these. She will eventually need a colonoscopy as an outpatient for further evaluation of these findings. She has no gross GI bleeding, but if hematology/oncology feels her anemia is not just from chemotherapy, could consider an outpatient EGD along with the colonoscopy to evaluate further. -When tolerating po, can try probiotics while receiving IV antibiotic therapy. -Supportive care per primary team. Thank you for allowing us to participate in the care of this patient. If you should have any further questions or concerns, do not hesitate to contact us at [email or web address] [phone] or [phone]. Present on Admission?: No (2) Anemia: See above Present on Admission?: Yes Supervising Physician Co-Signing Physician Notes Agree with ASHLIE Dee Abd: Soft, NT, ND Continue supportive care Will need outpatient colonoscopy for further evaluation of symptoms Stool studies ordered History of Present Illness Reason for Consultation: Anemia, diarrhea Attending Physician: Farzaneh Kinney MD History of Present Illness Patient is a 69 yo female currently hospitalized with gallbladder abnormalities and antineoplastic chemo induced pancytopenia. GI has been consulted for diarrhe a & anemia. C diff studies are negative. She reports her diarrhea began only after beginning IV antibiotics. She does report a CT scan in the spring that showed inflammation of her colon. She reports she was told she needed a colonoscopy to address this, however she has not been able to schedule this yet. As for her anemia, her current H/H is 8/24.8. She is possibly on the schedule today for an open cholecystectomy. She denies rectal bleeding. She reports 3-5 loose stools since yesterday. Allergies Allergy/AdvReac Type Severity Reaction Status Date / Time thiopental Allergy Unknown INCREASED Verified 05/07/20 11:52 BLEEDING WITH WISDOM TEETH SURG meperidine AdvReac Mild N/V Verified 05/07/20 11:52 morphine AdvReac Mild N/V Verified 05/07/20 11:52 oxaliplatin AdvReac Anaphylaxis Verified 05/08/20 00:41 Home Medications Home Medications Medication Instructions Recorded Confirmed Type albuterol sulfate 2 puff INHALATION Q6 PRN 09/10/18 06/10/20 History apixaban 5 mg PO BID 08/07/18 05/07/20 History [id number] C-Mn 1 cap PO BID 08/07/18 05/07/20 History [Glucosamine Chondroitin MaxStr] multivitamin 1 tab PO QAM 08/07/18 05/07/20 History sertraline 50 mg PO HS 08/07/18 05/07/20 History simvastatin 40 mg PO QPM 08/07/18 05/07/20 History Oxygen Home #1 ea 06/05/19 12/31/19 History magnesium oxide 800 mg PO BID cap 06/05/19 05/07/20 History potassium chloride 20 mEq 20 meq PO BID #60 tab 10/08/19 05/07/20 Rx tablet,extended release(part/cryst) ascorbic acid (vitamin C) [Vitamin 500 mg PO BID 11/02/19 05/07/20 History C] aspirin 81 mg PO HS 11/02/19 05/07/20 History cholecalciferol (vitamin D3) 2,000 unit PO BID 11/02/19 05/07/20 History [Vitamin D3] colestipol [Colestid] 1 g PO QDD 11/02/19 05/07/20 History levothyroxine 137 mcg PO QAM 11/02/19 05/07/20 History beclomethasone dipropionate 80 2 puffs INHALATION BID #34.8 gm 11/07/19 05/07/20 Rx mcg/actuation HFA breath activated aerosol ipratropium-albuterol 3 ml INHALATION Q4H PRN 12/18/19 05/07/20 History metoprolol tartrate 50 mg tablet 50 mg PO TID #90 tab 12/31/19 05/07/20 Rx hydrocodone-acetaminophen [[place]] 1 tab PO Q8H PRN #15 tab 02/08/20 05/07/20 Rx magnesium amino acid chelate 200 mg PO UD 02/08/20 05/07/20 History turmeric root extract 500 mg PO HS 02/08/20 05/07/20 History nebulizers #1 ea 02/19/20 Rx nebulizer accessories #1 ea 02/26/20 Rx omeprazole 40 mg capsule,delayed 40 mg PO QAM #90 cap 03/06/20 05/07/20 Rx release Patient History Medical History Bacteremia (Resolved) Bilateral pulmonary embolism (Resolved) Candidiasis of intestine (Resolved) Chemotherapy adverse reaction Colon cancer metastasized to lung (Chronic 09/18/08) "Adenocarcinoma of the colon with lung metastasis diagnosed in 2007 Status post right lobectomy 07/10/2008 Status post colonoscopy and biopsy 09/18/2008 revealing the colon lesion. Status post resection. This was followed by chemotherapy. Status post left upper lobe wedge resection 08/24/2011 due to metastasis Status post stereotactic radiation therapy in 2011 Completed chemotherapy in 2014 Status post wedge resection with Dr. navarrete 2015 Status post hypo-fractionated radiation therapy in 2015 PET/CT 08/24/2017 revealing metabolic activity of the right hilum. Status post completion of radiation therapy 10/24/2017 utilizing VMAT. PET/CT May 29, 2018 persistent uptake in the right paratracheal mass and suspicious changes for progression. Plan for systemic chemotherapy with i rinotecan and Erbitux" On 11/02/17 11:11 Meaghan Alves wrote "Adenocarcinoma of the colon with lung metastasis diagnosed in 2007 Status post right lobectomy 07/10/2008 Status post colonoscopy and biopsy 09/18/2008 revealing the colon lesion. Status post resection. This was followed by chemotherapy. Status post left upper lobe wedge resection 08/24/2011 due to metastasis Status post stereotactic radiation therapy in 2011 Completed chemotherapy in 2014 Status post wedge resection with Dr. navarrete 2015 Status post hypo-fractionated radiation therapy in 2015 PET/CT 08/24/2017 revealing metabolic activity of the right hilum. Status post completion of radiation therapy 10/24/2017 utilizing VMAT." On 09/13/17 09:28 Meaghan Alves wrote "Adenocarcinoma of the colon with lung metastasis diagnosed in 2007 Status post right lobectomy 07/10/2008 Status post colonoscopy and biopsy 09/18/2008 revealing the colon lesion. Status post resection. This was followed by chemotherapy. Status post left upper lobe wedge resection 08/24/2011 due to metastasis Status post stereotactic radiation therapy in 2011 Completed chemotherapy in 2014 Status post wedge resection with Dr. navarrete 2015 Status post hypo-fractionated radiation therapy in 2015 PET/CT 08/24/2017 revealing metabolic activity of the right hilum." Diverticulosis of colon (Chronic) DVT, lower extremity (Resolved) Elevated lactic acid level (Resolved) History of chemotherapy (Resolved) History of immunocompromised state History of pulmonary embolus (PE) (Chronic) History of radiation therapy Hx of gallstones Hypophosphatemia (Resolved) Hypotension (Inactive) Hypoxia (Inactive) Infection due to Port-A-Cath (Resolved) Neutropenia Pulmonary embolism (Resolved) Radiation pneumonitis (Resolved) Seizures due to metabolic disorder (Resolved) Septicemia due to coagulase-negative staphylococcal infection (Resolved) SIRS (systemic inflammatory response syndrome) (Resolved) Surgical History H/O: hysterectomy History of bladder surgery History of colon surgery History of lung surgery History of tonsillectomy History of ventral hernia repair Family History Mother , early 80s of thyroid cancer Thyroid cancer Heart disease Father , age 81 of gangrene complications No problems noted. 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 drives. Seatbelt Use: always Review of Systems Constitutional: no fever and no chills Eyes: no problem reported Ear, Nose, Mouth, Throat: no problem reported Respiratory: no cough Cardiovascular: no chest pain Gastrointestinal: + abdominal pain and + diarrhea/loose stools; no blood in stools Musculoskeletal: no joint pain Integumentary: no rash Neurologic: no problem reported Psychiatric: no problem reported Physical Exam Constitutional: WD/WN, vitals as above Eyes: PERRL, conjunctivae normal, anicteric sclerae ENMT: external ear and nose normal, oropharynx normal Neck: normal visual inspection Respiratory: normal respiratory effort, lungs clear to auscultation Cardiovascular: RRR, no murmur, no edema Gastrointestinal (Abdomen): normal bowel sounds, soft, nontender, no hepatosplenomegaly Musculoskeletal: no cyanosis or clubbing, extremities motor strength 5/5 Skin: no rashes, warm and dry Psychiatric: A+Ox3, euthymic affect Results & Data ([facility]) Vital Signs (Past 12 Hours) Vital Signs Temp Pulse Pulse Resp BP Pulse Ox 05/12/20 07:16 36.9 C 88 16 137/76 91 05/11/20 23:01 37.0 C 89 18 127/75 96 PG Care Time/CCT Total # of Minutes Spent Total Time Spent with Patient: Total time spent is greater than 50% in coordination of care (as documented) at patient's floor/unit and/or counseling patient: Coding Level of Care Code 45237 Initial Inpt Care Lvl 3 Diagnoses Diarrhea R19.7 Diarrhea type: unspecified type Anemia D64.9 Anemia type: unspecified type (1) Anemia Anemia type: unspecified type Qualified Code(s): D64.9 - Anemia, unspecified (2) Diarrhea Diarrhea type: unspecified type Qualified Code(s): R19.7 - Diarrhea, unspecified
[2020-05-12] MEDS: METOPROLOL TARTRATE 50 MG TAB PO SCH ×3 (11:08→21:47)
[2020-05-12] MEDS: PANTOprazole 40 MG in SYRINGE 0 ML IV SCH ×2 (11:09→21:48)
[2020-05-12] MEDS: MoRPHine SULFATE 2 MG/ML CARP IV PRN (11:09)
[2020-05-12] MEDS: FILGRASTIM 480 MCG/1.6 ML VIAL SQ SCH (11:45)
[2020-05-12] MEDS: cefTRIAXone SODIUM 2,000 MG in DEXTROSE 5% 50 ML IV SCH (12:53)
--- NOTE | 2020-05-12 14:44 | Hospitalist Progress Note ---
Date of Service May 12, 2020 Assessment & Plan (1) Cholecystitis: Initially seen on outpatient imaging with CT abdomen/pelvis and then on US here HIDA scan also suggesting acute cholecystitis LFTs and bili continue to be normal Continue ceftriaxone and metronidazole Continue to hold apixaban for cholecystectomy-last dose was the a.m. of 05/08 Discussed plan with surgery -platelets are sufficient and hemoglobin is improved today, however her neutropenia has worsened to 170 despite receiving Neupogen Appreciate heme/onc recommendations-recommends single donor platelets be given one hour prior to surgery if surgeon feels is necessary-platelets are nearly 100,000 today-not likely necessary. Also recommended giving Neupogen x 3 days- today is day #3 Platelets typed and crossed and placed on hold -Hopeful that CBC will be improved with improved neutropenia tomorrow-we will discuss blood counts with hematology in the morning and then make recommendation to surgery (2) Antineoplastic chemotherapy induced pancytopenia: Last dose of chemotherapy was on 04/29 Do not suspect acute blood loss anemia as no witnessed melena or hematochezia Hemoglobin is really not that far off from her baseline prior to her last dose of chemotherapy Hemoglobin is improved down to 8.0 appropriately after 1 unit of PRBCs given on 05/11 for hemoglobin of 7.1 Appreciate GI consultation-recommends colonoscopy as an outpatient for diarrhea and anemia Platelets are improved today to 98 WBC count lower and ANC lower as above-receiving Neupogen Isolation precautions for neutropenia. Consulted heme/onc as noted above -We will continue IV PPI twice daily for now (3) GERD (gastroesophageal reflux disease): Hold famotidine and omeprazole po as above in favor of IV Protonix (4) COPD (chronic obstructive pulmonary disease): Continue usual maintenance inhalers. No acute exacerbation (5) Sleep apnea: Continue CPAP (6) Hypothyroid: TSH WNL in Nov Continue levothyroxine 137 mcg PO daily (7) Colon cancer metastasized to lung: Complex history since 2007 currently on chemotherapy. RUL nodule increased in size not discussed with patient - will need to follow up with Dr. Ramirez Heme/onc consulted as above (8) Port-A-Cath in place: noted (9) Hypotension: resolved with IVF, lactic was 2.2 and then 1.7 Have since discontinued IV fluids (10) Diarrhea: C diff neg, unclear if this is due to GI bleed or antibiotics or chemotherapy or secondary to acute cholecystitis seems more likely. Check stool culture Appreciate GI consultation -Continue close stable -Continue imodium PRN -Plan for colonoscopy as an outpatient (11) Hypokalemia: Potassium mildly low today at 3.4 likely secondary to poor p.o. intake and loose stools/GI losses -Replace with oral potassium chloride -Follow BMP and magnesium levels in the morning (12) History of pulmonary embolus (PE): Normally on Eliquis-holding Eliquis for surgery -We will give SQ heparin today and then hold off tonight in case of surgery tomorrow (13) Depression: Continue sertraline (14) DVT prophylaxis: Hold apixaban as above, heparin subq this morning and then hold tonight for surgery possible tomorrow SCDs Disposition-remain hospitalized Discussed her case with her daughter on her phone at her request in depth Admission and Anticipated Discharge Date Admission Date: May 07, 2020 Subjective Patient reports she is anxious to get her surgery over with and was disappointed that it was canceled for today because of her low neutrophil count. She was having some lower back pain with muscle spasms this morning she thinks from laying in the bed too long which was relieved with IV morphine. She also had some epigastric abdominal pain which was also relieved with the morphine. She denies nausea or vomiting is tolerating liquids. Denies chest pains or shortness of breath, no lightheadedness. I discussed the case with general surgery today on the phone and we decided to hold off on surgery due to her low neutrophil count. Review of Systems Review of Systems: All systems reviewed & are unremarkable except as noted in HPI & below No further loose stools since 1:00 in the morning Physical Exam Constitutional: WD/WN, vitals as above + morbidly obese Eyes: + anicteric sclerae ENMT: external ear and nose normal, oropharynx normal Neck: trachea midline, no thyromegaly Respiratory: normal respiratory effort, lungs clear to auscultation Cardiovascular: RRR, no murmur, no edema Chest (Breasts): Chest: normal inspection of chest Gastrointestinal (Abdomen): normal bowel sounds, soft, nontender, no hepatosp lenomegaly Musculoskeletal: Spine: no lumbar spinal tenderness and no paraspinal tenderness Extremities: extremities normal to inspection; no cyanosis and no clubbing Skin: no rashes, warm and dry Neurologic: moves all extremities and awake; no focal motor deficits Psychiatric: A+Ox3, euthymic affect Lymphatic: no lymphedema Results & Data Results & Data ([facility]) Vital Signs (Past 12 Hours) Vital Signs Temp Pulse Resp BP Pulse Ox 05/12/20 07:16 36.9 C 88 16 137/76 91 Laboratory Results 05/12/20 05/12/20 Range/Units 05:38 05:38 WBC 1.30 L (4.8-10.8) K/uL RBC 2.35 L (4.2-5.4) M/uL Hgb 8.0 L (12.0-16.0) g/dL Hct 24.8 L (37-47) % MCV 105.5 H (80-100) fL MCH 34.0 (25-34) pg MCHC 32.3 (32-36) g/dL RDW Std Deviation 80.4 H (36.4-46.3) fL RDW Coeff of Marcell 21.2 H (11.5-14.5) % Plt Count 98 L (130-400) K/uL MPV 12.0 H (7.4-10.4) fL Immature Gran % (Auto) 9.2 % Neut % (Auto) 13.2 % Lymph % (Auto) 51.5 % [place] % (Auto) 19.2 % Eos % (Auto) 3.8 % Baso % (Auto) 3.1 % Immature Gran # (Auto) 0.12 H (0.00-0.02) K/uL Neut # (Auto) 0.17 L* (1.4-6.5) K/uL Lymph # (Auto) 0.67 L (1.2-3.4) K/uL [place] # (Auto) 0.25 (0.11-0.59) K/uL Eos # (Auto) 0.05 (0-0.5) K/uL Baso # (Auto) 0.04 (0-0.2) K/uL Absolute Nucleated RBC 0.04 H (0-0) K/uL Nucleated RBC % (auto) 3.1 % Ovalocytes 1+ Sodium 144 (136-145) mmol/L Potassium 3.4 L (3.5-5.1) mmol/L Chloride 109 H (98-107) mmol/L Carbon Dioxide 29 (21-32) mmol/L Anion Gap 6.0 (3-11) BUN 3 L (7-18) mg/dl Creatinine 1.18 (0.6-1.2) mg/dl Est Cr Clr Drug Dosing 60.4 ml/min Est GFR ( Amer) 55.3 Est GFR (Non-Af Amer) 47.7 BUN/Creatinine Ratio 2.5 L (10-20) Glucose 94 (70-99) mg/dl Calcium 8.4 L (8.5-10.1) mg/dl Total Bilirubin 0.6 (0.2-1) mg/dl AST 29 (15-37) U/L ALT 24 (12-78) U/L Alkaline Phosphatase 67 (45-117) U/L Total Protein 5.3 L (6.4-8.2) gm/dl Albumin 2.7 L (3.4-5.0) gm/dl Globulin 2.6 (2.5-4.0) gm/dl Albumin/Globulin Ratio 1.0 (0.9-2) PG Care Time/CCT Total # of Minutes Spent Total Time Spent with Patient: Total time spent is greater than 50% in coordination of care (as documented) at patient's floor/unit and/or counseling patient: Coding Level of Care Code 39576 Subseq Hosp Care Lvl 3 Diagnoses Cholecystitis K81.9 Antineoplastic chemotherapy induced pancytopenia D61.810; T45.1X5A GERD (gastroesophageal reflux disease) K21.9 Esophagitis presence: esophagitis presence not specified COPD (chronic obstructive pulmonary disease) J44.9 Sleep apnea G47.30 Hypothyroid E03.9 Hypothyroidism type: acquired Colon cancer metastasized to lung C18.9; C78.00 Port-A-Cath in place Z95.828 Hypotension I95.9 Diarrhea R19.7 Diarrhea type: unspecified type Hypokalemia E87.6 History of pulmonary embolus (PE) Z86.711 Depression F32.9 DVT prophylaxis Z29.9 (1) Diarrhea Diarrhea type: unspecified type Qualified Code(s): R19.7 - Diarrhea, unspecified (2) Hypothyroid Hypothyroidism type: acquired Qualified Code(s): E03.9 - Hypothyroidism, unspecified (3) GERD (gastroesophageal reflux disease) Esophagitis presence: esophagitis presence not specified Qualified Code(s): K21.9 - Gastro-esophageal reflux disease without esophagitis
[2020-05-12] MEDS ORDERED: POTASSIUM CHLORIDE 20 MEQ TABCR PO STA (14:51)
[2020-05-12] MEDS: COLESTIPOL HCL 1 GM TAB PO SCH (17:32)
[2020-05-12] MEDS: ONDANSETRON INJ 2 MG/ML 2 ML VIAL IV PRN ×2 (17:34→23:37)
[2020-05-12] MEDS: HEPARIN 100 UNIT/ML 5ML FLUSH FLUSH PRN ×2 (17:36→23:40)
[2020-05-12] MEDS: FLUTICASONE FUROATE 200MCG 14 PUFFS/INHALER INH SCH (21:47)
[2020-05-12] MEDS: SIMVASTATIN 40 MG TAB PO SCH (23:27)
[2020-05-12] MEDS: SERTRALINE HCL 50 MG TABLET PO SCH (23:28)
[2020-05-13] MEDS: metroNIDAZOLE 500 MG/100 ML BAG IV SCH ×3 (05:59→21:59)
[2020-05-13] MEDS: LEVOTHYROXINE SODIUM 137 MCG TABLET PO SCH (06:00)
[2020-05-13 06:26] LABS: Hematocrit (blood only) 27.3 % (37-47); Hemoglobin 8.9 g/dL (12.0-16.0); Mean Corpuscular Hemoglobin 34.5 pg (25-34); Mean Corpuscular Hgb Conc 32.6 g/dL (32-36); Mean Corpuscular Volume 105.8 fL (80-100); Nucleated RBC # (auto) 0.09 K/uL (0-0); RDW Coefficient of Variation 21.8 % (11.5-14.5); RDW Standard Deviation 81.3 fL (36.4-46.3); Red Blood Count 2.58 M/uL (4.2-5.4); White Blood Count 1.56 K/uL (4.8-10.8)
[2020-05-13 06:27] LABS: Mean Platelet Volume 10.6 fL (7.4-10.4); Platelet Count 95 K/uL (130-400)
[2020-05-13 07:03] LABS: Albumin Level 2.7 gm/dl (3.4-5.0); BUN Creatinine Ratio 2.4 (10-20); Bilirubin Direct 0.2 mg/dl (0-0.2); Calcium 8.3 mg/dl (8.5-10.1); Creatinine Clr Calc Pharmacy 56.2 ml/min; Est GFR (African American) 51.1; Potassium 3.5 mmol/L (3.5-5.1)
[2020-05-13 07:06] LABS: Bilirubin,Total 0.7 mg/dl (0.2-1); Total Protein 5.7 gm/dl (6.4-8.2)
--- NOTE | 2020-05-13 07:08 | Surgery Progress Note ---
Date of Service May 13, 2020 Assessment & Plan (1) Cholecystitis: Patient is pain-free and tenderness free. Her acute cholecystitis is most likely resolved Timing for surgery is still being discussed White blood cell count has increased to 1.5 however total neutrophil count is not reported Options at this point would include discussion of surgery versus watchful waiting since she is now symptom-free Subjective Feels well today Denies abdominal pain No nausea or vomiting Physical Exam Gastrointestinal (Abdomen): Inspection/Auscultation: abdomen not distended Percussion/Palpation: abdomen soft; abdomen nontender Results & Data Vital Signs (Past 12 Hours) Vital Signs Temp Pulse Pulse Resp BP Pulse Ox 05/13/20 06:58 37.1 C 87 16 95/65 L 92 05/13/20 02:49 37.0 C 88 16 108/70 94 05/12/20 23:48 37.7 C H 89 117/77 97 05/12/20 19:42 37.3 C 88 20 128/68 92
[2020-05-13 07:17] LABS: Anisocytosis Present; Dohle Bodies 3+; Ovalocytes 1+; Tear Drop Cells 1+
[2020-05-13 07:18] LABS: ALC (manual) 0.67 K/uL (1.2-3.4); ANC (manual) 0.45 K/uL (1.4-6.5); Basophils # (manual) 0.03 K/uL (0-0.2); Basophils % (manual) 1.9 %; Eosinophils # (manual) 0.12 K/uL (0-0.5); Eosinophils % (manual) 7.8 %; Lymphocytes # (manual) 0.67 K/uL (1.2-3.4); Lymphocytes % (manual) 42.8 %; Monocytes # (manual) 0.29 K/uL (0.11-0.59); Monocytes % (manual) 18.4 %; Neutrophils # (manual) 0.45 K/uL (1.4-6.5); Neutrophils % (manual) 29.1 %
[2020-05-13] MEDS: MULTIVITAMIN TAB PO SCH (07:38)
[2020-05-13] MEDS: ASCORBIC ACID 500 MG TAB PO SCH ×2 (07:39→20:09)
[2020-05-13] MEDS: CHOLECALCIFEROL 1,000 UNITS 25 MCG TAB PO SCH ×2 (07:39→20:09)
[2020-05-13] MEDS: PANTOprazole 40 MG in SYRINGE 0 ML IV SCH ×2 (07:40→20:08)
[2020-05-13] MEDS: MAGNESIUM OXIDE 400 MG TAB PO SCH ×2 (07:41→20:08)
[2020-05-13] MEDS: METOPROLOL TARTRATE 50 MG TAB PO SCH ×3 (07:45→20:13)
--- NOTE | 2020-05-13 10:42 | Hospitalist Progress Note ---
Date of Service May 13, 2020 Assessment & Plan (1) Cholecystitis: Initially seen incidentally on outpatient imaging with CT abdomen/pelvis and then on [facility] here HIDA scan also suggesting acute cholecystitis LFTs and bili continue to be normal, remains afebrile, no leukocytosis Was asymptomatic until ate a low-fat diet today which again prompted return of her symptoms Her ANC continues to be too low for surgery but is improving now with 3 doses of Neupogen Patient really wants to stay here to have her cholecystectomy as she is off of her Eliquis and is not keen yet on transferring for cholecystostomy tube -Continue ceftriaxone and metronidazole -Continue to hold apixaban for cholecystectomy-last dose was the a.m. of 05/08 -Discussed plan with surgery-in agreement for possible surgery tomorrow if ANC greater than 800 Appreciate heme/onc recommendations-recommends single donor platelets be given one hour prior to surgery if surgeon feels is necessary-platelets are nearly 100,000 today-not likely necessary. Also recommended giving Neupogen for another dose to make a total of 4 doses -Continue to follow LFTs, CBC -Platelets typed and crossed and placed on hold -Okay to proceed with cholecystectomy tomorrow if ANC greater than 800 (2) Antineoplastic chemotherapy induced pancytopenia: Last dose of chemotherapy was on 04/29 Do not suspect acute blood loss anemia as no witnessed melena or hematochezia Hemoglobin is really not that far off from her baseline prior to her last dose of chemotherapy Hemoglobin is improved up to 8.9 appropriately after 1 unit of PRBCs given on 05/11 for hemoglobin of 7.1 Appreciate GI consultation-recommends colonoscopy as an outpatient for diarrhea and anemia Platelets are improved and stable today at 95 WBC count and ANC slightly improved today-ANC up to 450 after receiving 3 doses of Neupogen -Give another dose of Neupogen for an 80 mcg SQ x1 today Isolation precautions for neutropenia. Consulted heme/onc as noted above (3) GERD (gastroesophageal reflux disease): Hold famotidine and omeprazole po as above in favor of IV Protonix (4) COPD (chronic obstructive pulmonary disease): Continue usual maintenance inhalers. No acute exacerbation (5) Sleep apnea: Continue CPAP (6) Hypothyroid: TSH WNL in Nov Continue levothyroxine 137 mcg PO daily (7) Colon cancer metastasized to lung: Complex history since 2007 currently on chemotherapy. RUL nodule increased in size not discussed with patient - will need to follow up with Dr. Ramirez Heme/onc consulted as above (8) Port-A-Cath in place: noted (9) Hypotension: resolved with IVF, lactic was 2.2 and then 1.7 Have since discontinued IV fluids (10) Diarrhea: C diff neg, likely due to antibiotics or secondary to acute cholecystitis seems more likely. Check stool culture-pending Appreciate GI consultation -Diarrhea improving today -Continue colestipol -Continue imodium PRN -Plan for colonoscopy as an outpatient (11) Hypokalemia: likely secondary to poor p.o. intake and loose stools/GI losses Now resolved with replacement -Follow BMP and magnesium levels in the morning (12) History of pulmonary embolus (PE): Normally on Eliquis-holding Eliquis for surgery -We will give SQ heparin x1 dose again today and then hold off tonight in case of surgery tomorrow (13) Depression: Continue sertraline (14) DVT prophylaxis: Hold apixaban as above, heparin subq this morning and then hold tonight for surgery possible tomorrow SCDs Disposition-remain hospitalized Discussed her case with her daughter on her phone with updates Admission and Anticipated Discharge Date Admission Date: May 07, 2020 Subjective Patient was feeling well this morning when she was n.p.o., but then ate oatmeal and a bite of scrambled eggs for breakfast and had acute onset of epigastric pain similar to all her previous episodes. She denies chest pain or shortness of breath, no leg pain or swelling. I had multiple discussions with both general surgery and hematology today. Patient states that she really wants to stay and see if her ANC comes up so she can have surgery tomorrow if possible. She would really like to have her gallbladder out. Also discussed possibility of transfer to tertiary care center for cholecystostomy tube and she did not seem thrilled with this idea. Review of Systems Review of Systems: All systems reviewed & are unremarkable except as noted in HPI & below Physical Exam Constitutional: WD/WN, vitals as above + morbidly obese Eyes: + anicteric sclerae ENMT: external ear and nose normal, oropharynx normal Neck: trachea midline, no thyromegaly Respiratory: normal respiratory effort, lungs clear to auscultation Cardiovascular: RRR, no murmur, no edema Extremities: no calf tenderness and no edema Chest (Breasts): Chest: normal inspection of chest Gastrointestinal (Abdomen): Inspection/Auscultation: normal bowel sounds Percussion/Palpation: + abdomen tender (In the epigastric region without guarding or rebound tenderness) and abdomen soft Musculoskeletal: Extremities: extremities normal to inspection; no cyanosis and no clubbing Skin: no rashes, warm and dry Neurologic: moves all extremities and awake; no focal motor deficits Psychiatric: A+Ox3, euthymic affect Lymphatic: no lymphedema Results & Data Results & Data ([facility]) Vital Signs (Past 12 Hours) Vital Signs Temp Pulse Pulse Resp BP Pulse Ox 05/13/20 06:58 37.1 C 87 16 95/65 L 92 05/13/20 02:49 37.0 C 88 16 108/70 94 05/12/20 23:48 37.7 C H 89 117/77 97 Laboratory Results 05/13/20 05/13/20 05/10/20 Range/Units 05:59 05:59 05:35 WBC 1.56 L (4.8-10.8) K/uL RBC 2.58 L (4.2-5.4) M/uL Hgb 8.9 L (12.0-16.0) g/dL Hct 27.3 L (37-47) % MCV 105.8 H (80-100) fL MCH 34.5 H (25-34) pg MCHC 32.6 (32-36) g/dL RDW Std Deviation 81.3 H (36.4-46.3) fL RDW Coeff of Marcell 21.8 H (11.5-14.5) % Plt Count 95 L (130-400) K/uL MPV 10.6 H (7.4-10.4) fL Absolute Nucleated RBC 0.09 H (0-0) K/uL Nucleated RBC % (auto) 6.0 % Neutrophils % (Manual) 29.1 % Lymphocytes % (Manual) 42.8 % Monocytes % (Manual) 18.4 % Eosinophils % (Manual) 7.8 % Basophils % (Manual) 1.9 % Neutrophils # (Manual) 0.45 L (1.4-6.5) K/uL Total Absolute Neuts 0.45 L* (1.4-6.5) K/uL Lymphocytes # (Manual) 0.67 L (1.2-3.4) K/uL Total Abs Lymphocytes 0.67 L (1.2-3.4) K/uL Monocytes # (Manual) 0.29 (0.11-0.59) K/uL Eosinophils # (Manual) 0.12 (0-0.5) K/uL Basophils # (Manual) 0.03 (0-0.2) K/uL Dohle Bodies 3+ Anisocytosis Present Tear Drop Cells 1+ Ovalocytes 1+ Sodium 142 (136-145) mmol/L Potassium 3.5 (3.5-5.1) mmol/L Chloride 107 (98-107) mmol/L Carbon Dioxide 28 (21-32) mmol/L Anion Gap 7.0 (3-11) BUN 3 L (7-18) mg/dl Creatinine 1.26 H (0.6-1.2) mg/dl Est Cr Clr Drug Dosing 56.2 ml/min Est GFR ( Amer) 51.1 Est GFR (Non-Af Amer) 44.0 BUN/Creatinine Ratio 2.4 L (10-20) Glucose 95 (70-99) mg/dl Calcium 8.3 L (8.5-10.1) mg/dl Total Bilirubin 0.7 (0.2-1) mg/dl Direct Bilirubin 0.2 (0-0.2) mg/dl AST 29 (15-37) U/L ALT 23 (12-78) U/L Alkaline Phosphatase 74 (45-117) U/L Total Protein 5.7 L (6.4-8.2) gm/dl Albumin 2.7 L (3.4-5.0) gm/dl Crossmatch See Detail PG Care Time/CCT Total # of Minutes Spent Total Time Spent with Patient: Total time spent is greater than 50% in coordination of care (as documented) at patient's floor/unit and/or counseling patient: Coding Level of Care Code 66853 Subseq Hosp Care Lvl 3 Diagnoses Cholecystitis K81.9 Antineoplastic chemotherapy induced pancytopenia D61.810; T45.1X5A GERD (gastroesophageal reflux disease) K21.9 Esophagitis presence: esophagitis presence not specified COPD (chronic obstructive pulmonary disease) J44.9 Sleep apnea G47.30 Hypothyroid E03.9 Hypothyroidism type: acquired Colon cancer metastasized to lung C18.9; C78.00 Port-A-Cath in place Z95.828 Hypotension I95.9 Diarrhea R19.7 Diarrhea type: unspecified type Hypokalemia E87.6 History of pulmonary embolus (PE) Z86.711 Depression F32.9 DVT prophylaxis Z29.9 (1) Diarrhea Diarrhea type: unspecified type Qualified Code(s): R19.7 - Diarrhea, unspecified (2) Hypothyroid Hypothyroidism type: acquired Qualified Code(s): E03.9 - Hypothyroidism, unspecified (3) GERD (gastroesophageal reflux disease) Esophagitis presence: esophagitis presence not specified Qualified Code(s): K21.9 - Gastro-esophageal reflux disease without esophagitis
[2020-05-13] MEDS ORDERED: HEPARIN SOD 5,000 UNIT/0.5 ML VIAL SQ ONE (11:00)
[2020-05-13] MEDS ORDERED: FILGRASTIM 480 MCG/1.6 ML VIAL SQ ONE (11:00)
[2020-05-13] MEDS: cefTRIAXone SODIUM 2,000 MG in DEXTROSE 5% 50 ML IV SCH (13:20)
[2020-05-13] MEDS: ONDANSETRON INJ 2 MG/ML 2 ML VIAL IV PRN (14:13)
[2020-05-13] MEDS: COLESTIPOL HCL 1 GM TAB PO SCH (15:33)
[2020-05-13] MEDS: FLUTICASONE FUROATE 200MCG 14 PUFFS/INHALER INH SCH (20:07)
[2020-05-13] MEDS: SIMVASTATIN 40 MG TAB PO SCH (20:08)
[2020-05-13] MEDS: SERTRALINE HCL 50 MG TABLET PO SCH (20:09)
[2020-05-14] MEDS: ALUMINUM/MAGNESIUM SUSP 30 ML UDC PO PRN (00:29)
[2020-05-14] MEDS: HEPARIN 100 UNIT/ML 5ML FLUSH FLUSH PRN ×2 (05:10→23:11)
[2020-05-14 05:56] LABS: Hematocrit (blood only) 28.4 % (37-47); Mean Corpuscular Hemoglobin 33.7 pg (25-34); Mean Corpuscular Hgb Conc 31.7 g/dL (32-36); Mean Corpuscular Volume 106.4 fL (80-100); Nucleated RBC % (auto) 4.3 %; RDW Coefficient of Variation 21.9 % (11.5-14.5); RDW Standard Deviation 84.5 fL (36.4-46.3); Red Blood Count 2.67 M/uL (4.2-5.4); White Blood Count 4.64 K/uL (4.8-10.8)
[2020-05-14] MEDS: LEVOTHYROXINE SODIUM 137 MCG TABLET PO SCH (06:08)
[2020-05-14] MEDS: metroNIDAZOLE 500 MG/100 ML BAG IV SCH ×3 (06:09→21:55)
[2020-05-14 06:19] LABS: Mean Platelet Volume 10.5 fL (7.4-10.4); Platelet Count 95 K/uL (130-400)
[2020-05-14 06:24] LABS: Albumin Level 2.5 gm/dl (3.4-5.0); BUN Creatinine Ratio 3.6 (10-20); Calcium 8.2 mg/dl (8.5-10.1); Creatinine Clr Calc Pharmacy 57.6 ml/min; Est GFR (African American) 52.6; Est GFR (Non-African American) 45.4; Magnesium 1.6 mg/dl (1.8-2.4); Potassium 3.5 mmol/L (3.5-5.1)
[2020-05-14 06:26] LABS: Bilirubin Direct 0.2 mg/dl (0-0.2); Bilirubin,Total 0.6 mg/dl (0.2-1); Total Protein 5.3 gm/dl (6.4-8.2)
--- NOTE | 2020-05-14 07:33 | Surgery Progress Note ---
Date of Service May 14, 2020 Assessment & Plan (1) Cholecystitis: Pain-free at present Continuing to have discussions regarding options of waiting versus surgery versus cholecystostomy tube. I discussed this with Dr. Leung this morning. He had a discussion with the patient as well. We are planning for cholecystectomy. Her white blood cell count is increasing although her absolute neutrophil count is not available yet this morning. We are planning for the surgery for Tuesday. She understands that she is at increased risk. She understands that because of all of her previous surgery especially in the upper abdomen that she is at high risk for requiring an open procedure. Subjective Had pain yesterday after eating relieved by morphine No pain this morning No nausea or vomiting Results & Data Vital Signs (Past 12 Hours) Vital Signs Temp Pulse Pulse Resp BP Pulse Ox 05/14/20 07:19 36.9 C 108 H 16 101/59 L 92 05/14/20 03:26 37.0 C 107 H 16 94/60 L 92 05/13/20 23:01 36.9 C 110 H 18 126/79 91 Laboratory Results 05/14/20 05/14/20 Range/Units 05:10 05:10 WBC 4.64 L (4.8-10.8) K/uL RBC 2.67 L (4.2-5.4) M/uL Hgb 9.0 L (12.0-16.0) g/dL Hct 28.4 L (37-47) % MCV 106.4 H (80-100) fL MCH 33.7 (25-34) pg MCHC 31.7 L (32-36) g/dL RDW Std Deviation 84.5 H (36.4-46.3) fL RDW Coeff of Marcell 21.9 H (11.5-14.5) % Plt Count 95 L (130-400) K/uL MPV 10.5 H (7.4-10.4) fL Absolute Nucleated RBC 0.20 H (0-0) K/uL Nucleated RBC % (auto) 4.3 % Sodium 142 (136-145) mmol/L Potassium 3.5 (3.5-5.1) mmol/L Chloride 106 (98-107) mmol/L Carbon Dioxide 30 (21-32) mmol/L Anion Gap 6.0 (3-11) BUN 4 L (7-18) mg/dl Creatinine 1.23 H (0.6-1.2) mg/dl Est Cr Clr Drug Dosing 57.6 ml/min Est GFR ( Amer) 52.6 Est GFR (Non-Af Amer) 45.4 BUN/Creatinine Ratio 3.6 L (10-20) Glucose 95 (70-99) mg/dl Calcium 8.2 L (8.5-10.1) mg/dl Magnesium 1.6 L (1.8-2.4) mg/dl Total Bilirubin 0.6 (0.2-1) mg/dl Direct Bilirubin 0.2 (0-0.2) mg/dl AST 32 (15-37) U/L ALT 22 (12-78) U/L Alkaline Phosphatase 76 (45-117) U/L Total Protein 5.3 L (6.4-8.2) gm/dl Albumin 2.5 L (3.4-5.0) gm/dl
--- NOTE | 2020-05-14 07:35 | Hospitalist Progress Note ---
Date of Service May 14, 2020 Assessment & Plan (1) Cholecystitis: Initially seen incidentally on outpatient imaging with CT abdomen/pelvis and then on WOLF here HIDA scan also suggesting acute cholecystitis LFTs and bili continue to be normal, remains afebrile, no leukocytosis Has intermittent RUQ pain and nausea but none today Her ANC was too low for surgery for many days due to chemo, but is finally up to 1400 with 4 doses of Neupogen -Continue ceftriaxone and metronidazole -Continue to hold apixaban for cholecystectomy-last dose was the a.m. of 05/08 -Discussed plan with surgery-now on schedule for [place] on Tuesday as long as ANC remains>800 Appreciate heme/onc recommendations-recommends single donor platelets be given one hour prior to surgery if surgeon feels is necessary-platelets are nearly 100,000 today-not likely necessary. -Continue to follow LFTs, CBC -Platelets typed and crossed and placed on hold (2) Antineoplastic chemotherapy induced pancytopenia: Last dose of chemotherapy was on 04/29 Do not suspect acute blood loss anemia as no witnessed melena or hematochezia Hemoglobin is really not that far off from her baseline prior to her last dose of chemotherapy Hemoglobin is improved up to 9.0 and did receive 1 unit of PRBCs given on 05/11 for hemoglobin of 7.1 Appreciate GI consultation-recommends colonoscopy as an outpatient for diarrhea and anemia Platelets are improved and stable today at 95 WBC count and ANC slightly improved today-ANC up to 1400 after receiving 4 doses of Neupogen Isolation precautions for neutropenia. Consulted heme/onc as noted above (3) GERD (gastroesophageal reflux disease): dc IV PPI and convert back to po PPI (4) COPD (chronic obstructive pulmonary disease): Continue usual maintenance inhalers. No acute exacerbation (5) Sleep apnea: Continue CPAP (6) Hypothyroid: TSH WNL in Nov Continue levothyroxine 137 mcg PO daily (7) Colon cancer metastasized to lung: Complex history since 2007 currently on chemotherapy. RUL nodule increased in size but others decreased-mixed/stable disease as per [facility] Heme/onc consulted as above (8) Port-A-Cath in place: noted (9) Hypotension: resolved with IVF, lactic was 2.2 and then 1.7 Have since discontinued IV fluids (10) Diarrhea: C diff neg, likely due to antibiotics or secondary to acute cholecystitis seems more likely. Check stool culture-pending Appreciate GI consultation -Diarrhea improved somewhat but had 4 loose stools today with eating regular food -Continue colestipol -Continue imodium PRN -Plan for colonoscopy as an outpatient (11) Hypokalemia: likely secondary to poor p.o. intake and loose stools/GI losses Now resolved with replacement -Follow BMP and magnesium levels in the morning (12) History of pulmonary embolus (PE): Normally on Eliquis-holding Eliquis for surgery -restart SQ heparin 5000 Units q8h and hold evening for surgery Tuesday (13) Depression: Continue sertraline (14) Hypomagnesemia: replace with IV magnesium today (15) DVT prophylaxis: Hold apixaban as above, heparin subq as above SCDs Disposition-remain hospitalized Encouraged ambulation Admission and Anticipated Discharge Date Admission Date: May 07, 2020 Subjective Pt has not had any abd pain today. Ate tomato soup and salad today without difficulty. Had RUQ pain that was bad last evening. Still with 4 loose stools today Review of Systems Review of Systems: All systems reviewed & are unremarkable except as noted in HPI & below Physical Exam Constitutional: WD/WN, vitals as above + morbidly obese Eyes: + anicteric sclerae Neck: trachea midline, no thyromegaly Respiratory: normal respiratory effort, lungs clear to auscultation Cardiovascular: RRR, no murmur, no edema Extremities: no calf tenderness and no edema Chest (Breasts): Chest: normal inspection of chest Gastrointestinal (Abdomen): normal bowel sounds, soft, nontender, no hepatosplenomegaly Musculoskeletal: Extremities: extremities normal to inspection; no cyanosis and no clubbing Skin: no rashes, warm and dry Neurologic: moves all extremities and awake; no focal motor deficits Psychiatric: A+Ox3, euthymic affect Lymphatic: no lymphedema Results & Data Results & Data ([facility]) Vital Signs (Past 12 Hours) Vital Signs Temp Pulse Pulse Resp BP Pulse Ox 05/14/20 07:19 36.9 C 108 H 16 101/59 L 92 05/14/20 03:26 37.0 C 107 H 16 94/60 L 92 05/13/20 23:01 36.9 C 110 H 18 126/79 91 Laboratory Results 05/14/20 05/14/20 Range/Units 05:10 05:10 WBC 4.64 L (4.8-10.8) K/uL RBC 2.67 L (4.2-5.4) M/uL Hgb 9.0 L (12.0-16.0) g/dL Hct 28.4 L (37-47) % MCV 106.4 H (80-100) fL MCH 33.7 (25-34) pg MCHC 31.7 L (32-36) g/dL RDW Std Deviation 84.5 H (36.4-46.3) fL RDW Coeff of Marcell 21.9 H (11.5-14.5) % Plt Count 95 L (130-400) K/uL MPV 10.5 H (7.4-10.4) fL Absolute Nucleated RBC 0.20 H (0-0) K/uL Nucleated RBC % (auto) 4.3 % Neutrophils % (Manual) 28.1 % Band Neutrophils % 0.0 % Lymphocytes % (Manual) 45.5 % Prolymphocyte % 0.0 % Reactive Lymphs % (Man) 0.0 % Monocytes % (Manual) 14.9 % Eosinophils % (Manual) 5.3 % Basophils % (Manual) 0.9 % Metamyelocytes % (Man) 4.4 % Blast Cells % (Manual) 0.9 % Plasma Cell % (Manual) 0.0 % Neutrophils # (Manual) 1.30 L (1.4-6.5) K/uL Total Absolute Neuts 1.30 L (1.4-6.5) K/uL Lymphocytes # (Manual) 2.11 (1.2-3.4) K/uL Total Abs Lymphocytes 2.11 (1.2-3.4) K/uL Monocytes # (Manual) 0.69 H (0.11-0.59) K/uL Eosinophils # (Manual) 0.25 (0-0.5) K/uL Basophils # (Manual) 0.04 (0-0.2) K/uL Metamyelocytes # (Man) 0.20 H (0-0) K/uL Blast Cells # (Man) 0.04 H (0-0) K/uL Large Granular Lymphs 0.0 % Blood Smear Review Toxic Granulation 2+ Toxic Vacuolation Polychromasia 1+ Anisocytosis Present Tear Drop Cells 1+ Ovalocytes 1+ Schistocytes 1+ Sodium 142 (136-145) mmol/L Potassium 3.5 (3.5-5.1) mmol/L Chloride 106 (98-107) mmol/L Carbon Dioxide 30 (21-32) mmol/L Anion Gap 6.0 (3-11) BUN 4 L (7-18) mg/dl Creatinine 1.23 H (0.6-1.2) mg/dl Est Cr Clr Drug Dosing 57.6 ml/min Est GFR ( Amer) 52.6 Est GFR (Non-Af Amer) 45.4 BUN/Creatinine Ratio 3.6 L (10-20) Glucose 95 (70-99) mg/dl Calcium 8.2 L (8.5-10.1) mg/dl Magnesium 1.6 L (1.8-2.4) mg/dl Total Bilirubin 0.6 (0.2-1) mg/dl Direct Bilirubin 0.2 (0-0.2) mg/dl AST 32 (15-37) U/L ALT 22 (12-78) U/L Alkaline Phosphatase 76 (45-117) U/L Total Protein 5.3 L (6.4-8.2) gm/dl Albumin 2.5 L (3.4-5.0) gm/dl PG Care Time/CCT Total # of Minutes Spent Total Time Spent with Patient: Total time spent is greater than 50% in coordination of care (as documented) at patient's floor/unit and/or counseling patient: Coding Level of Care Code 55498 Subseq Hosp Care Lvl 3 Diagnoses Cholecystitis K81.9 Antineoplastic chemotherapy induced pancytopenia D61.810; T45.1X5A GERD (gastroesophageal reflux disease) K21.9 Esophagitis presence: esophagitis presence not specified COPD (chronic obstructive pulmonary disease) J44.9 Sleep apnea G47.30 Hypothyroid E03.9 Hypothyroidism type: acquired Colon cancer metastasized to lung C18.9; C78.00 Port-A-Cath in place Z95.828 Hypotension I95.9 Diarrhea R19.7 Diarrhea type: unspecified type Hypokalemia E87.6 History of pulmonary embolus (PE) Z86.711 Depression F32.9 Hypomagnesemia E83.42 DVT prophylaxis Z29.9 (1) Diarrhea Diarrhea type: unspecified type Qualified Code(s): R19.7 - Diarrhea, unspecified (2) Hypothyroid Hypothyroidism type: acquired Qualified Code(s): E03.9 - Hypothyroidism, unspecified (3) GERD (gastroesophageal reflux disease) Esophagitis presence: esophagitis presence not specified Qualified Code(s): K21.9 - Gastro-esophageal reflux disease without esophagitis
[2020-05-14 08:21] LABS: Anisocytosis Present; Ovalocytes 1+; Polychromasia 1+; Schistocytes 1+; Tear Drop Cells 1+
[2020-05-14 08:22] LABS: ALC (manual) 2.11 K/uL (1.2-3.4); Basophils # (manual) 0.04 K/uL (0-0.2); Basophils % (manual) 0.9 %; Blast # (manual) 0.04 K/uL (0-0); Blast Cells % (manual) 0.9 %; Eosinophils # (manual) 0.25 K/uL (0-0.5); Eosinophils % (manual) 5.3 %; Lymphocytes # (manual) 2.11 K/uL (1.2-3.4); Lymphocytes % (manual) 45.5 %; Metamyelocytes % (manual) 4.4 %; Monocytes # (manual) 0.69 K/uL (0.11-0.59); Monocytes % (manual) 14.9 %; Neutrophils % (manual) 28.1 %
[2020-05-14 08:32] LABS: Toxic Granulation 2+
[2020-05-14] MEDS: METOPROLOL TARTRATE 50 MG TAB PO SCH ×3 (09:03→20:29)
[2020-05-14] MEDS: MAGNESIUM SULFATE / D5W 1 GM/100 ML BAG IV SCH ×2 (09:03→11:06)
[2020-05-14] MEDS: MULTIVITAMIN TAB PO SCH (09:04)
[2020-05-14] MEDS: MAGNESIUM OXIDE 400 MG TAB PO SCH ×2 (09:04→20:28)
[2020-05-14] MEDS: CHOLECALCIFEROL 1,000 UNITS 25 MCG TAB PO SCH ×2 (09:05→20:27)
[2020-05-14] MEDS: ASCORBIC ACID 500 MG TAB PO SCH ×2 (09:06→20:29)
[2020-05-14] MEDS: PANTOprazole 40 MG in SYRINGE 0 ML IV SCH (09:10)
[2020-05-14] MEDS: cefTRIAXone SODIUM 2,000 MG in DEXTROSE 5% 50 ML IV SCH (13:10)
[2020-05-14] MEDS: COLESTIPOL HCL 1 GM TAB PO SCH (15:29)
[2020-05-14] MEDS: FLUTICASONE FUROATE 200MCG 14 PUFFS/INHALER INH SCH (20:28)
[2020-05-14] MEDS: SERTRALINE HCL 50 MG TABLET PO SCH (20:29)
[2020-05-14] MEDS: SIMVASTATIN 40 MG TAB PO SCH (20:30)
[2020-05-14] MEDS: HEPARIN SOD 5,000 UNIT/0.5 ML VIAL SQ SCH (21:10)
[2020-05-15] MEDS: HEPARIN SOD 5,000 UNIT/0.5 ML VIAL SQ SCH ×3 (04:29→20:02)
[2020-05-15] MEDS: metroNIDAZOLE 500 MG/100 ML BAG IV SCH ×3 (05:34→21:26)
[2020-05-15] MEDS: LEVOTHYROXINE SODIUM 137 MCG TABLET PO SCH (05:34)
[2020-05-15 06:40] LABS: Hematocrit (blood only) 27.5 % (37-47); Hemoglobin 8.5 g/dL (12.0-16.0); Mean Corpuscular Hemoglobin 33.6 pg (25-34); Mean Corpuscular Hgb Conc 30.9 g/dL (32-36); Mean Corpuscular Volume 108.7 fL (80-100); Nucleated RBC # (auto) 0.18 K/uL (0-0); Nucleated RBC % (auto) 2.1 %; Platelet Count 94 K/uL (130-400); RDW Coefficient of Variation 22.2 % (11.5-14.5); RDW Standard Deviation 86.5 fL (36.4-46.3); Red Blood Count 2.53 M/uL (4.2-5.4); White Blood Count 8.83 K/uL (4.8-10.8)
[2020-05-15] MEDS: HEPARIN 100 UNIT/ML 5ML FLUSH FLUSH PRN (06:43)
[2020-05-15 07:09] LABS: Albumin Level 2.6 gm/dl (3.4-5.0); BUN Creatinine Ratio 4.1 (10-20); Bilirubin Direct 0.1 mg/dl (0-0.2); Creatinine Clr Calc Pharmacy 62.6 ml/min; Est GFR (African American) 58.2; Est GFR (Non-African American) 50.3; Magnesium 2.2 mg/dl (1.8-2.4); Potassium 3.1 mmol/L (3.5-5.1)
[2020-05-15 07:11] LABS: Bilirubin,Total 0.4 mg/dl (0.2-1); Total Protein 5.1 gm/dl (6.4-8.2)
[2020-05-15 07:33] LABS: ALC (manual) 0.23 K/uL (1.2-3.4); ANC (manual) 6.44 K/uL (1.4-6.5); Anisocytosis Present; Basophils # (manual) 0.08 K/uL (0-0.2); Basophils % (manual) 0.9 %; Blast # (manual) 0.08 K/uL (0-0); Blast Cells % (manual) 0.9 %; Dohle Bodies 2+; Eosinophils # (manual) 0.08 K/uL (0-0.5); Eosinophils % (manual) 0.9 %; Lymphocytes # (manual) 0.23 K/uL (1.2-3.4); Lymphocytes % (manual) 2.6 %; Metamyelocytes # (manual) 0.08 K/uL (0-0); Metamyelocytes % (manual) 0.9 %; Monocytes # (manual) 1.15 K/uL (0.11-0.59); Myelocytes # (manual) 0.08 K/uL (0-0); Myelocytes % (manual) 0.9 %; Neutrophils # (manual) 6.44 K/uL (1.4-6.5); Neutrophils % (manual) 72.9 %; Polychromasia 1+; Promyelocytes # (manual) 0.62 K/uL (0-0); Toxic Granulation 3+
[2020-05-15] MEDS: METOPROLOL TARTRATE 50 MG TAB PO SCH ×3 (09:05→20:48)
[2020-05-15] MEDS: MULTIVITAMIN TAB PO SCH (09:05)
[2020-05-15] MEDS: ASCORBIC ACID 500 MG TAB PO SCH ×2 (09:06→20:50)
[2020-05-15] MEDS: PANTOprazole 40 MG TAB PO SCH (09:06)
[2020-05-15] MEDS: MAGNESIUM OXIDE 400 MG TAB PO SCH ×2 (09:06→20:49)
[2020-05-15] MEDS: CHOLECALCIFEROL 1,000 UNITS 25 MCG TAB PO SCH ×2 (09:07→20:50)
--- NOTE | 2020-05-15 10:03 | Surgery Progress Note ---
Date of Service May 15, 2020 Assessment & Plan (1) Cholelithiasis: Patient with cholelithiasis who developed pain after eating Has metastatic colon cancer and has been undergoing chemotherapy Has been pancytopenic Neupogen has developed and a white count of 8 with a neutrophil count over 6 Planning for laparoscopic cholecystectomy tomorrow She understands that there is a significant likelihood that we are going to need to convert to an open procedure due to her previous abdominal procedures. We discussed the increased likelihood of complications as well. She understands all of that wishes to proceed with surgery. She has signed a consent form. Subjective Having no pain today Denies nausea and vomiting Physical Exam Gastrointestinal (Abdomen): Inspection/Auscultation: abdomen not distended Percussion/Palpation: abdomen soft; abdomen nontender Results & Data Vital Signs (Past 12 Hours) Vital Signs Temp Pulse Resp BP BP Pulse Ox 05/15/20 07:05 37.0 C 85 16 128/80 92 05/15/20 03:53 36.7 C 91 H 14 127/65 96 05/14/20 23:29 37.1 C 88 14 118/73 96 Laboratory Results 05/15/20 05/15/20 Range/Units 05:53 05:53 WBC 8.83 (4.8-10.8) K/uL RBC 2.53 L (4.2-5.4) M/uL Hgb 8.5 L (12.0-16.0) g/dL Hct 27.5 L (37-47) % MCV 108.7 H (80-100) fL MCH 33.6 (25-34) pg MCHC 30.9 L (32-36) g/dL RDW Std Deviation 86.5 H (36.4-46.3) fL RDW Coeff of Marcell 22.2 H (11.5-14.5) % Plt Count 94 L (130-400) K/uL MPV 12.0 H (7.4-10.4) fL Absolute Nucleated RBC 0.18 H (0-0) K/uL Nucleated RBC % (auto) 2.1 % Neutrophils % (Manual) 72.9 % Lymphocytes % (Manual) 2.6 % Monocytes % (Manual) 13.0 % Eosinophils % (Manual) 0.9 % Basophils % (Manual) 0.9 % Metamyelocytes % (Man) 0.9 % Myelocytes % (Man) 0.9 % Promyelocytes % (Man) 7.0 % Blast Cells % (Manual) 0.9 % Neutrophils # (Manual) 6.44 (1.4-6.5) K/uL Total Absolute Neuts 6.44 (1.4-6.5) K/uL Lymphocytes # (Manual) 0.23 L (1.2-3.4) K/uL Total Abs Lymphocytes 0.23 L (1.2-3.4) K/uL Monocytes # (Manual) 1.15 H (0.11-0.59) K/uL Eosinophils # (Manual) 0.08 (0-0.5) K/uL Basophils # (Manual) 0.08 (0-0.2) K/uL Metamyelocytes # (Man) 0.08 H (0-0) K/uL Myelocytes # (Manual) 0.08 H (0-0) K/uL Promyelocytes # (Man) 0.62 H (0-0) K/uL Blast Cells # (Man) 0.08 H (0-0) K/uL Toxic Granulation 3+ Dohle Bodies 2+ Polychromasia 1+ Anisocytosis Present Sodium 143 (136-145) mmol/L Potassium 3.1 L (3.5-5.1) mmol/L Chloride 107 (98-107) mmol/L Carbon Dioxide 31 (21-32) mmol/L Anion Gap 5.0 (3-11) BUN 5 L (7-18) mg/dl Creatinine 1.13 (0.6-1.2) mg/dl Est Cr Clr Drug Dosing 62.6 ml/min Est GFR ( Amer) 58.2 Est GFR (Non-Af Amer) 50.3 BUN/Creatinine Ratio 4.1 L (10-20) Glucose 98 (70-99) mg/dl Calcium 8.0 L (8.5-10.1) mg/dl Magnesium 2.2 (1.8-2.4) mg/dl Total Bilirubin 0.4 (0.2-1) mg/dl Direct Bilirubin 0.1 (0-0.2) mg/dl AST 32 (15-37) U/L ALT 21 (12-78) U/L Alkaline Phosphatase 74 (45-117) U/L Total Protein 5.1 L (6.4-8.2) gm/dl Albumin 2.6 L (3.4-5.0) gm/dl
[2020-05-15] MEDS: POTASSIUM CHLORIDE / WTR 20 MEQ/100 ML PLCT IV SCH ×2 (10:34→12:40)
[2020-05-15] MEDS: cefTRIAXone SODIUM 2,000 MG in DEXTROSE 5% 50 ML IV SCH (12:45)
[2020-05-15] MEDS: COLESTIPOL HCL 1 GM TAB PO SCH (16:15)
[2020-05-15] MEDS: ONDANSETRON INJ 2 MG/ML 2 ML VIAL IV PRN (20:09)
--- NOTE | 2020-05-15 20:32 | Hospitalist Progress Note ---
Date of Service May 15, 2020 Assessment & Plan (1) Cholecystitis: Initially seen incidentally on outpatient imaging with CT abdomen/pelvis and then on WOLF here HIDA scan also suggesting acute cholecystitis LFTs and bili continue to be normal, remains afebrile, no leukocytosis Has intermittent RUQ pain and nausea Her ANC was too low for surgery for many days due to chemo, but is finally up to 6400 with 4 doses of Neupogen -Continue ceftriaxone and metronidazole -Continue to hold apixaban for cholecystectomy-last dose was the a.m. of 05/08 -Discussed plan with surgery-now on schedule for [place] on Tuesday as long as ANC remains>800 Appreciate heme/onc recommendations-recommends single donor platelets be given one hour prior to surgery if surgeon feels is necessary-platelets are nearly 100,000 today-not likely necessary. -Continue to follow LFTs, CBC -Platelets typed and crossed and placed on hold (2) Antineoplastic chemotherapy induced pancytopenia: Last dose of chemotherapy was on 04/29 Do not suspect acute blood loss anemia as no witnessed melena or hematochezia Hemoglobin is really not that far off from her baseline prior to her last dose of chemotherapy Hemoglobin is improved up to 9.0 and did receive 1 unit of PRBCs given on 05/11 for hemoglobin of 7.1 Appreciate GI consultation-recommends colonoscopy as an outpatient for diarrhea and anemia Platelets are improved and stable today at 95 WBC count and ANC slightly improved today-ANC up to 6400 after receiving 4 doses of Neupogen Isolation precautions for neutropenia can be stopped. Consulted heme/onc as noted above (3) GERD (gastroesophageal reflux disease): continue po PPI (4) COPD (chronic obstructive pulmonary disease): Continue usual maintenance inhalers. No acute exacerbation (5) Sleep apnea: Continue CPAP (6) Hypothyroid: TSH WNL in Nov Continue levothyroxine 137 mcg PO daily (7) Colon cancer metastasized to lung: Complex history since 2007 currently on chemotherapy. RUL nodule increased in size but others decreased-mixed/stable disease as per Onco Heme/onc consulted as above (8) Port-A-Cath in place: noted (9) Diarrhea: C diff neg, likely due to antibiotics or secondary to acute cholecystitis seems more likely. Check stool culture-with Johana-no need to treat Appreciate GI consultation -Diarrhea improved somewhat but had 4 loose stools today with eating regular food -Continue colestipol -Continue imodium PRN -Plan for colonoscopy as an outpatient (10) Hypokalemia: likely secondary to poor p.o. intake and loose stools/GI losses Now resolved with replacement -Follow BMP and magnesium levels in the morning (11) History of pulmonary embolus (PE): Normally on Eliquis-holding Eliquis for surgery -restart SQ heparin 5000 Units q8h and hold evening for surgery Tuesday (12) Depression: Continue sertraline (13) Hypomagnesemia: replaced (14) DVT prophylaxis: Hold apixaban as above, heparin subq as above SCDs Disposition-remain hospitalized Encouraged ambulation Admission and Anticipated Discharge Date Admission Date: May 07, 2020 Subjective Feeling well today, no abd pain, no nausea, but with heartburn after taking pills. No chest pain or SOB. Is ambulating. Awaiting surgery tomorrow Review of Systems Review of Systems: All systems reviewed & are unremarkable except as noted in HPI & below Physical Exam Constitutional: WD/WN, vitals as above + morbidly obese Eyes: + anicteric sclerae ENMT: external ear and nose normal, oropharynx normal Neck: trachea midline, no thyromegaly Respiratory: normal respiratory effort, lungs clear to auscultation Cardiovascular: RRR, no murmur, no edema Extremities: no calf tenderness and no edema Chest (Breasts): Chest: normal inspection of chest Gastrointestinal (Abdomen): normal bowel sounds, soft, nontender, no hepatosplenomegaly Percussion/Palpation: abdomen soft Musculoskeletal: Extremities: extremities normal to inspection; no cyanosis and no clubbing Skin: no rashes, warm and dry Neurologic: moves all extremities and awake; no focal motor deficits Psychiatric: A+Ox3, euthymic affect Lymphatic: no lymphedema Results & Data Results & Data ([facility]) Vital Signs (Past 12 Hours) Vital Signs Temp Pulse Resp BP Pulse Ox 05/15/20 15:09 36.5 C 101 H 16 112/76 91 05/15/20 13:55 108 H 115/75 PG Care Time/CCT Total # of Minutes Spent Total Time Spent with Patient: Total time spent is greater than 50% in coordination of care (as documented) at patient's floor/unit and/or counseling patient: Coding Level of Care Code 79438 Subseq Hosp Care Lvl 2 Diagnoses Cholecystitis K81.9 Antineoplastic chemotherapy induced pancytopenia D61.810; T45.1X5A GERD (gastroesophageal reflux disease) K21.9 Esophagitis presence: esophagitis presence not specified COPD (chronic obstructive pulmonary disease) J44.9 Sleep apnea G47.30 Hypothyroid E03.9 Hypothyroidism type: acquired Colon cancer metastasized to lung C18.9; C78.00 Port-A-Cath in place Z95.828 Diarrhea R19.7 Diarrhea type: unspecified type Hypokalemia E87.6 History of pulmonary embolus (PE) Z86.711 Depression F32.9 Hypomagnesemia E83.42 DVT prophylaxis Z29.9 (1) Diarrhea Diarrhea type: unspecified type Qualified Code(s): R19.7 - Diarrhea, unspecified (2) Hypothyroid Hypothyroidism type: acquired Qualified Code(s): E03.9 - Hypothyroidism, unspecified (3) GERD (gastroesophageal reflux disease) Esophagitis presence: esophagitis presence not specified Qualified Code(s): K21.9 - Gastro-esophageal reflux disease without esophagitis
[2020-05-15] MEDS: FLUTICASONE FUROATE 200MCG 14 PUFFS/INHALER INH SCH (20:44)
[2020-05-15] MEDS: SERTRALINE HCL 50 MG TABLET PO SCH (20:50)
[2020-05-15] MEDS: SIMVASTATIN 40 MG TAB PO SCH (20:50)
[2020-05-16] MEDS: MoRPHine SULFATE 2 MG/ML CARP IV PRN (01:23)
[2020-05-16] MEDS: HEPARIN 100 UNIT/ML 5ML FLUSH FLUSH PRN ×4 (01:24→22:58)
[2020-05-16] MEDS: metroNIDAZOLE 500 MG/100 ML BAG IV SCH ×3 (05:29→21:51)
[2020-05-16] MEDS: LEVOTHYROXINE SODIUM 137 MCG TABLET PO SCH ×3 (05:29→09:47)
[2020-05-16 07:24] LABS: Hematocrit (blood only) 30.6 % (37-47); Hemoglobin 9.2 g/dL (12.0-16.0); Mean Corpuscular Hemoglobin 33.1 pg (25-34); Mean Corpuscular Hgb Conc 30.1 g/dL (32-36); Mean Corpuscular Volume 110.1 fL (80-100); Nucleated RBC # (auto) 0.19 K/uL (0-0); Nucleated RBC % (auto) 1.8 %; RDW Coefficient of Variation 22.6 % (11.5-14.5); RDW Standard Deviation 89.8 fL (36.4-46.3); Red Blood Count 2.78 M/uL (4.2-5.4); White Blood Count 10.15 K/uL (4.8-10.8)
[2020-05-16 07:41] LABS: Mean Platelet Volume 10.7 fL (7.4-10.4); Platelet Count 83 K/uL (130-400)
[2020-05-16 07:48] LABS: Albumin Level 2.8 gm/dl (3.4-5.0); BUN Creatinine Ratio 6.2 (10-20); Calcium 8.3 mg/dl (8.5-10.1); Creatinine Clr Calc Pharmacy 57.5 ml/min; Est GFR (African American) 52.6; Est GFR (Non-African American) 45.4; Magnesium 2.2 mg/dl (1.8-2.4); Potassium 3.5 mmol/L (3.5-5.1)
[2020-05-16 07:51] LABS: Bilirubin,Total 0.3 mg/dl (0.2-1); Globulin 2.8 gm/dl (2.5-4.0); Total Protein 5.6 gm/dl (6.4-8.2)
[2020-05-16 08:16] LABS: ALC (manual) 2.39 K/uL (1.2-3.4); ANC (manual) 4.14 K/uL (1.4-6.5); Anisocytosis Present; Basophils # (manual) 0.09 K/uL (0-0.2); Basophils % (manual) 0.9 %; Dohle Bodies 2+; Eosinophils # (manual) 0.44 K/uL (0-0.5); Eosinophils % (manual) 4.3 %; Lymphocytes # (manual) 2.39 K/uL (1.2-3.4); Lymphocytes % (manual) 23.5 %; Metamyelocytes # (manual) 0.09 K/uL (0-0); Metamyelocytes % (manual) 0.9 %; Monocytes # (manual) 1.67 K/uL (0.11-0.59); Monocytes % (manual) 16.5 %; Myelocytes # (manual) 1.24 K/uL (0-0); Myelocytes % (manual) 12.2 %; Neutrophils # (manual) 4.14 K/uL (1.4-6.5); Neutrophils % (manual) 40.8 %; Ovalocytes 1+; Polychromasia 1+; Promyelocytes # (manual) 0.09 K/uL (0-0); Promyelocytes % (manual) 0.9 %; Toxic Granulation 3+
[2020-05-16] MEDS ORDERED: ONDANSETRON INJ 2 MG/ML 2 ML VIAL ONE (08:57)
[2020-05-16] MEDS ORDERED: PROPOFOL IV EMULSION 10 MG/ML 20 ML VIAL IV ONE (08:57)
[2020-05-16] MEDS ORDERED: MIDAZOLAM HCL 1 MG/ML 2ML VIAL ONE (08:57)
[2020-05-16] MEDS ORDERED: DEXAMETHASONE SOD INJ 4 MG/ML VIAL ONE ×2 (08:57→09:21)
[2020-05-16] MEDS ORDERED: LIDOCAINE HCL 2% 2 ML VIAL/AMP(20MG/ML) INFIL ONE (08:57)
[2020-05-16] MEDS ORDERED: fentaNYL citrate 100 MCG/2 ML VIAL ONE ×2 (08:57→12:52)
[2020-05-16] MEDS ORDERED: ROCURONIUM BROMIDE 10 MG/ML 5 ML VIAL IV ONE ×5 (08:57→14:05)
[2020-05-16] MEDS ORDERED: SODIUM CHLORIDE 0.9% 250 ML IV PRN (09:30)
--- NOTE | 2020-05-16 09:30 | Surgery Progress Note ---
Date of Service May 16, 2020 Assessment & Plan (1) Cholecystitis: Acute cholecystitis has resolved Planning for laparoscopic appendectomy. Procedure, increased chance of needing to convert to an open procedure, increased chance of complications pre-and postop were discussed with her yesterday. She has signed a consent form. She will receive platelets this morning. Subjective Awake alert No pain No nausea or vomiting Results & Data Vital Signs (Past 12 Hours) Vital Signs Temp Pulse Pulse Resp BP BP BP 05/16/20 09:17 36.8 C 84 18 130/77 05/16/20 07:44 36.8 C 83 18 112/71 05/16/20 03:46 37.0 C 83 14 137/74 05/15/20 23:25 36.7 C 87 14 129/75 Pulse Ox 05/16/20 09:17 05/16/20 07:44 91 05/16/20 03:46 96 05/15/20 23:25 96
[2020-05-16] MEDS: CHOLECALCIFEROL 1,000 UNITS 25 MCG TAB PO SCH (09:45)
[2020-05-16] MEDS: MAGNESIUM OXIDE 400 MG TAB PO SCH ×2 (09:45→09:52)
[2020-05-16] MEDS: ASCORBIC ACID 500 MG TAB PO SCH ×2 (09:45→09:52)
[2020-05-16] MEDS: METOPROLOL TARTRATE 50 MG TAB PO SCH ×2 (09:45→18:45)
[2020-05-16] MEDS: PANTOprazole 40 MG TAB PO SCH (09:48)
[2020-05-16] MEDS: MULTIVITAMIN TAB PO SCH (09:48)
[2020-05-16] MEDS ORDERED: PROPOFOL IV EMULSION 10 MG/ML 100 ML VIAL IV ONE ×3 (10:44→14:21)
[2020-05-16] MEDS ORDERED: SCOPOLAMINE 1.5 MG TDSY TD ONE (10:44)
[2020-05-16] MEDS ORDERED: ACETAMINOPHEN 1000 MG/100 ML IV IV ONE (10:44)
[2020-05-16] MEDS ORDERED: BUPIVACAINE 0.5 % 5 MG/1 ML MPF 30ML VIAL ONE (10:54)
[2020-05-16] MEDS ORDERED: CEFAZOLIN 250 MG/ML 1 GM VIAL ONE (10:54)
[2020-05-16] MEDS ORDERED: HEPARIN (PORCINE) 1000 UNIT/ML 10 ML (CATH LAB USE ONLY) ONE (10:54)
[2020-05-16] MEDS ORDERED: IOPAMIDOL INJ 61% 15 ML VIAL ONE (10:55)
[2020-05-16] MEDS ORDERED: ePHEDrine sulfate 50 MG/ML AMP IV PRN (11:30)
[2020-05-16] MEDS ORDERED: HYDROmorphone INJ 2 MG/ML SYR/VIAL IV PRN (11:30)
[2020-05-16] MEDS ORDERED: fentaNYL citrate 100 MCG/2 ML VIAL IV PRN (11:30)
[2020-05-16] MEDS ORDERED: ONDANSETRON INJ 2 MG/ML 2 ML VIAL IV PRN (11:30)
[2020-05-16] MEDS ORDERED: ATROPINE SULFATE 0.1 MG/ML 10ML SYR IV PRN (11:30)
--- NOTE | 2020-05-16 11:30 | Anesthesiology Consultation ---
Date of Service May 16, 2020 Assessment & Plan ASA ASA3 Proposed Anesthesia Anesthesia Type: General Risk / Benefits Reviewed With: PT / POA / Parent / Guardian, Accepts Plan and Informed Consent Obtained History Surgery Operation Date: 05/16/20 10:30 Proposed Procedures p Laparoscopic Cholecystectomy - Michael Ibrahim MD Height/Weight Height: 5 ft 5 in Weight: 119.8 kg Allergies Allergy/AdvReac Type Severity Reaction Status Date / Time thiopental Allergy Unknown INCREASED Verified 05/07/20 11:52 BLEEDING WITH WISDOM TEETH SURG meperidine AdvReac Mild N/V Verified 05/07/20 11:52 morphine AdvReac Mild N/V Verified 05/07/20 11:52 oxaliplatin AdvReac Anaphylaxis Verified 05/08/20 00:41 Medications Home Medications Medication Instructions Recorded Confirmed Last Taken albuterol sulfate 2 puff INHALATION Q6 PRN 08/07/18 05/07/20 12/17/19 apixaban 5 mg PO BID 08/07/18 05/07/20 05/07/20 [id number] C-Mn 1 cap PO BID 08/07/18 05/07/20 05/07/20 [Glucosamine Chondroitin MaxStr] multivitamin 1 tab PO QAM 08/07/18 05/07/20 05/07/20 sertraline 50 mg PO HS 08/07/18 05/07/20 05/06/20 simvastatin 40 mg PO QPM 08/07/18 05/07/20 05/07/20 Oxygen Home #1 ea 06/05/19 12/31/19 Unknown magnesium oxide 800 mg PO BID cap 06/05/19 05/07/20 05/07/20 potassium chloride 20 mEq 20 meq PO BID #60 tab 10/08/19 05/07/20 05/07/20 tablet,extended release(part/cryst) ascorbic acid (vitamin C) [Vitamin 500 mg PO BID 11/02/19 05/07/20 05/07/20 C] aspirin 81 mg PO HS 11/02/19 05/07/20 05/06/20 cholecalciferol (vitamin D3) 2,000 unit PO BID 11/02/19 05/07/20 05/07/20 [Vitamin D3] colestipol [Colestid] 1 g PO QDD 11/02/19 05/07/20 05/06/20 levothyroxine 137 mcg PO QAM 11/02/19 05/07/20 05/07/20 beclomethasone dipropionate 80 2 puffs INHALATION BID #34.8 gm 11/07/19 05/07/20 05/07/20 mcg/actuation HFA breath activated aerosol ipratropium-albuterol 3 ml INHALATION Q4H PRN 12/18/19 05/07/20 05/07/20 metoprolol tartrate 50 mg tablet 50 mg PO TID #90 tab 12/31/19 05/07/20 05/07/20 hydrocodone-acetaminophen [Jeff] 1 tab PO Q8H PRN #15 tab 02/08/20 05/07/20 Unknown magnesium amino acid chelate 200 mg PO UD 02/08/20 05/07/20 05/07/20 turmeric root extract 500 mg PO HS 02/08/20 05/07/20 05/06/20 nebulizers #1 ea 02/19/20 Unknown nebulizer accessories #1 ea 02/26/20 Unknown omeprazole 40 mg capsule,delayed 40 mg PO QAM #90 cap 03/06/20 05/07/20 05/07/20 release Active Medications Generic Name Dose Route Start Last Admin Trade Name Freq PRN Reason Stop Dose Admin Al Hydrox/Mg Hydrox/Simethicone 30 ml 05/07/20 16:30 05/14/20 00:29 Maalox PO 06/06/20 16:29 30 ml Q6H PRN Administration Dyspepsia Apixaban 5 mg 05/07/20 21:00 05/08/20 07:40 Eliquis PO 06/06/20 20:59 5 mg BID JAMIN Administration Ascorbic Acid 500 mg 05/07/20 21:00 05/16/20 09:52 Vitamin C PO 06/06/20 20:59 Not Given BID JAMIN Aspirin 81 mg 05/07/20 21:00 05/11/20 21:21 Ecotrin Ectab PO 06/06/20 20:59 81 mg HS JAMIN Administration Colestipol HCl 1 gm 05/07/20 16:30 05/15/20 16:15 Colestid PO 06/06/20 16:29 1 gm QDD JAMIN Administration Fluticasone Furoate 1 puffs 05/07/20 21:00 05/15/20 20:44 Arnuity Ellipta 200mcg INH 06/06/20 20:59 1 puffs DAILY@HS JAMIN Administration Heparin Sodium (Porcine) 5 ml 05/07/20 23:18 05/16/20 06:35 Heparin Sod 100 Unit/Ml Flush FLUSH 06/06/20 23:29 5 ml PRN PRN Administration Flush Heparin Sodium (Porcine) 5,000 units 05/14/20 20:00 05/15/20 20:02 Heparin Sodium (Porcine) SQ 06/13/20 19:59 5,000 units Q8H JAMIN Administration Metronidazole 500 mg in 100 mls @ 100 mls/hr 05/07/20 22:00 05/16/20 06:44 Flagyl IV 05/17/20 21:59 Infused Q8H JAMIN Infusion Ceftriaxone Sodium 2,000 mg/ 70 mls @ 100 mls/hr 05/08/20 13:00 05/15/20 13:52 Dextrose IV 05/18/20 12:59 Infused Q24H JAMIN Infusion Protocol Levothyroxine Sodium 137 mcg 05/08/20 06:30 05/16/20 09:47 Levothyroxine Sodium PO 06/07/20 06:29 137 mcg DAILYBB JAMIN Administration Loperamide HCl 2 mg 05/11/20 12:02 05/11/20 21:44 Imodium PO 06/10/20 12:01 2 mg UD PRN Administration Diarrhea Magnesium Oxide 800 mg 05/07/20 21:00 05/16/20 09:52 Mag-Ox PO 06/06/20 20:59 800 mg BID JAMIN Administration Metoprolol Tartrate 50 mg 05/07/20 21:00 05/16/20 09:45 Lopressor PO 06/06/20 20:59 50 mg TID JAMIN Administration Morphine Sulfate 1 mg 05/12/20 10:37 05/13/20 20:07 Morphine Sulfate IV 05/26/20 10:36 1 mg Q3H PRN Administration Mild Pain Morphine Sulfate 2 mg 05/12/20 10:37 05/16/20 01:23 Morphine Sulfate IV 05/26/20 10:36 2 mg Q3H PRN Administration Moderate Pain Multivitamins 1 tab 05/08/20 09:00 05/16/20 09:48 Multivitamin Tab PO 06/07/20 08:59 Not Given QAM JAMIN Ondansetron HCl 4 mg 05/07/20 16:30 05/15/20 20:09 Zofran IV 06/06/20 16:29 4 mg Q6H PRN Administration Nausea Pantoprazole Sodium 40 mg 05/15/20 09:00 05/16/20 09:48 Protonix PO 06/14/20 08:59 40 mg QAM JAMIN Administration Sertraline HCl 50 mg 05/07/20 21:00 05/15/20 20:50 Zoloft PO 06/06/20 20:59 50 mg HS JAMIN Administration Simvastatin 40 mg 05/07/20 21:00 05/15/20 20:50 Zocor PO 06/06/20 20:59 40 mg QPM JAMIN Administration Vitamin D 2,000 units 05/07/20 21:00 05/16/20 09:45 Vitamin D3 PO 06/06/20 20:59 2,000 units BID JAMIN Administration NPO Date Last Intake of Fluids: 05/13/20 Time Last Intake of Fluids: 23:59 Date Last Intake of Solids: 05/13/20 Time Last Intake of Solids: 23:59 Past Medical History Medical History Bacteremia (Resolved) Bilateral pulmonary embolism (Resolved) Candidiasis of intestine (Resolved) Chemotherapy adverse reaction Colon cancer metastasized to lung (Chronic 09/18/08) "Adenocarcinoma of the colon with lung metastasis diagnosed in 2007 Status post right lobectomy 07/10/2008 Status post colonoscopy and biopsy 09/18/2008 revealing the colon lesion. Status post resection. This was followed by chemotherapy. Status post left upper lobe wedge resection 08/24/2011 due to metastasis Status post stereotactic radiation therapy in 2011 Completed chemotherapy in 2014 Status post wedge resection with Dr. navarrete 2015 Status post hypo-fractionated radiation therapy in 2015 PET/CT 08/24/2017 revealing metabolic activity of the right hilum. Status post completion of radiation therapy 10/24/2017 utilizing VMAT. PET/CT May 29, 2018 persistent uptake in the right paratracheal mass and suspicious changes for progression. Plan for systemic chemotherapy with irinotecan and Erbitux" On 11/02/17 11:11 Meaghan Alves wrote "Adenocarcinoma of the colon with lung metastasis diagnosed in 2007 Status post right lobectomy 07/10/2008 Status post colonoscopy and biopsy 09/18/2008 revealing the colon lesion. Status post resection. This was followed by chemotherapy. Status post left upper lobe wedge resection 08/24/2011 due to metastasis Status post stereotactic radiation therapy in 2011 Completed chemotherapy in 2014 Status post wedge resection with Dr. navarrete 2015 Status post hypo-fractionated radiation therapy in 2015 PET/CT 08/24/2017 revealing metabolic activity of the right hilum. Status post completion of radiation therapy 10/24/2017 utilizing VMAT." On 09/13/17 09:28 Meaghan Alves wrote "Adenocarcinoma of the colon with lung metastasis diagnosed in 2007 Status post right lobectomy 07/10/2008 Status post colonoscopy and biopsy 09/18/2008 revealing the colon lesion. Status post resection. This was followed by chemotherapy. Status post left upper lobe wedge resection 08/24/2011 due to metastasis Status post stereotactic radiation therapy in 2011 Completed chemotherapy in 2014 Status post wedge resection with Dr. navarrete 2015 Status post hypo-fractionated radiation therapy in 2015 PET/CT 08/24/2017 revealing metabolic activity of the right hilum." Diverticulosis of colon (Chronic) DVT, lower extremity (Resolved) Elevated lactic acid level (Resolved) History of chemotherapy (Resolved) History of immunocompromised state History of pulmonary embolus (PE) (Chronic) History of radiation therapy Hx of gallstones Hypophosphatemia (Resolved) Hypotension (Inactive) Hypoxia (Inactive) Infection due to Port-A-Cath (Resolved) Neutropenia Pulmonary embolism (Resolved) Radiation pneumonitis (Resolved) Seizures due to metabolic disorder (Resolved) Septicemia due to coagulase-negative staphylococcal infection (Resolved) SIRS (systemic inflammatory response syndrome) (Resolved) Exercise / Class Metabolic Activity III < 4 Walking/Shop/Light housework Past Family History Family History Mother , early 80s of thyroid cancer Thyroid cancer Heart disease Father , age 81 of gangrene complications No problems noted. Uncle Colorectal cancer Other Family history non-contributory Denies family history of Ovarian cancer Prostate cancer Breast cancer Past Surgical History Surgical History H/O: hysterectomy History of bladder surgery History of colon surgery History of lung surgery History of tonsillectomy History of ventral hernia repair Past Anesthesia History No Hx of Anesthesia Complications and No Family Hx of Anesthesia Complications History of PONV No Hx of Motion Sickness and History of PONV Social History Smoking Status: Never smoker Hx Alcohol Use: No Hx Substance Use: No substance use type: does not use Review of Systems denies fever/cough/ colds/ chest pain/ SOB/ VU Constitutional: no fever and no chills Respiratory: no cough and no dyspnea denies VU Cardiovascular: no chest pain and no dyspnea on exertion Physical Exam Vital Signs Last Vital Signs Temp 36.9 C 05/16/20 11:07 Pulse 83 05/16/20 11:07 Resp 18 05/16/20 11:07 BP 132/82 05/16/20 11:07 Pulse Ox 92 05/16/20 11:07 Constitutional + morbidly obese ENMT Mouth: no TMJ abnormality and no dentition abnormality Thyromental Distance: > or= 3.5 Finger Breadths Mallampati Class: II Neck neck extension not limited Respiratory normal respiratory effort; no respiratory distress Auscultation: lungs clear to auscultation bilaterally Cardiovascular Rate/Rhythm: regular rate and regular rhythm Neurologic moves all extremities Psychiatric Orientation: alert and oriented x 3 Testing Laboratory Results 05/16/20 07:01 05/16/20 07:01 Urine Color Yellow 05/07/20 13:00 Urine Appearance Clear (Clear) 05/07/20 13:00 Urine pH 6.0 (4.5-7.5) 05/07/20 13:00 Ur Specific Maria Stein <= 1.005 (1.000-1.030) 05/07/20 13:00 Urine Protein Negative (Negative) 05/07/20 13:00 Urine Glucose (UA) Negative (Negative) 05/07/20 13:00 Urine Ketones Negative (Negative) 05/07/20 13:00 Urine Nitrite Negative (Negative) 05/07/20 13:00 Ur Leukocyte Esterase Negative (Negative) 05/07/20 13:00 Urine RBC 0-4 /hpf (0-4) 05/07/20 13:00 Urine WBC 5-10 /hpf (0-5) H 05/07/20 13:00 Ur Epithelial Cells 10-20 /lpf (0-5) H 05/07/20 13:00 Blood Type O Positive 05/10/20 05:35 Antibody Screen NEGATIVE 05/10/20 05:35 06/15/20 Unknown Escherichia coli Shiga Toxins Test - Final Stool Stool Culture - Final Johana albicans/dubliniensis 05/07/20 13:00 Urine Culture - Final Urine,Clean Catch Escherichia coli
[2020-05-16] MEDS ORDERED: cefOXitin 2,000 MG in DEXTROSE 5% 50 ML IV STA (12:54)
[2020-05-16] MEDS ORDERED: PHENYLEPHRINE HCL 10 MG/ML VIAL ONE (13:23)
[2020-05-16] MEDS ORDERED: HYDROmorphone INJ 2 MG/ML SYR/VIAL ONE (14:07)
[2020-05-16] MEDS ORDERED: ALBUMIN HUMAN 5% 12.5 GM/250 ML VIAL IV ONE (14:46)
[2020-05-16] MEDS ORDERED: SUGAMMADEX SODIUM 200 MG/2 ML VIAL IV ONE (14:46)
--- NOTE | 2020-05-16 15:15 | Fluoroscopy Report ---
[place] fluoroscopy <1hr CLINICAL HISTORY: ATTEMPTED [facility] COMPARISON STUDY: None FLUOROSCOPY TIME: 2 seconds NUMBER OF FLUOROSCOPIC IMAGES: 9 FINDINGS: None IMPRESSION: No images acquired. ACT 112: Negative or not required by law. The above report was generated using voice recognition software. It may contain grammatical, syntax or spelling errors. Electronically signed by: Michael Bhat M.D. 05/16/2020 3:14 PM
[2020-05-16] MEDS ORDERED: PROMETHAZINE HCL INJ 25 MG/ML 1 ML VIAL ONE (15:25)
[2020-05-16] MEDS ORDERED: FLOSEAL HEMOSTATIC MATRIX 10ML TOP ONE (15:29)
[2020-05-16] MEDS ORDERED: NALOXONE HCL 0.4 MG/1 ML VIAL/CARP ONE (16:11)
--- NOTE | 2020-05-16 16:15 | Post Operative Brief Note ---
Immediate Post Op Note v1 Date of Surgery May 16, 2020 Pre & Post Diagnosis Operation Date: 05/16/20 10:30 Pre-Op Diagnosis: Acute Cholecystitis Post-Op Diagnosis: Acute Cholecystitis I identified the patient and participated in the time-out.: Yes Procedure Operation Date: 05/16/20 10:30 Actual Procedures p Laparoscopic to Open Cholecystectomy(Not Applicable) - Michael Ibrahim MD Surgeon Michael Ibrahim MD Industrial Waste Inspector Renee Kat PA-C Estimated Blood Loss 50 Findings Consistent with Post-Op Diagnosis Specimens Galbladder and contents Drains Roger-Givens Drain (RUQ) Anesthesia Type General Complications none
[2020-05-16] MEDS: cefTRIAXone SODIUM 2,000 MG in DEXTROSE 5% 50 ML IV SCH (17:00)
--- NOTE | 2020-05-16 17:14 | Hospitalist Progress Note ---
Date of Service May 16, 2020 Assessment & Plan (1) Cholecystitis: Initially seen incidentally on outpatient imaging with CT abdomen/pelvis and then on WOLF here HIDA scan also suggesting acute cholecystitis LFTs and bili continue to be normal, remains afebrile, no leukocytosis Has intermittent RUQ pain and nausea Her ANC was too low for surgery for many days due to chemo, but is finally normal with 4 doses of Neupogen -Continue ceftriaxone and metronidazole -Continue to hold apixaban for cholecystectomy-last dose was the a.m. of 05/08 -Now status post open cholecystectomy on 05/16 -Continue to follow LFTs, CBC (2) Antineoplastic chemotherapy induced pancytopenia: Last dose of chemotherapy was on 04/29 Do not suspect acute blood loss anemia as no witnessed melena or hematochezia Hemoglobin is really not that far off from her baseline prior to her last dose of chemotherapy Hemoglobin is improved up to 9.2 and did receive 1 unit of PRBCs given on 05/11 for hemoglobin of 7.1 Appreciate GI consultation-recommends colonoscopy as an outpatient for diarrhea and anemia Platelets were stable for many days in the 90s, decreased slightly to 83 today Received 1 unit of platelets prior to surgery today WBC count and ANC now significantly improved after 4 doses of Neupogen Isolation precautions for neutropenia can be stopped. Consulted heme/onc as noted above (3) GERD (gastroesophageal reflux disease): continue po PPI (4) COPD (chronic obstructive pulmonary disease): Continue usual maintenance inhalers. No acute exacerbation (5) Sleep apnea: Continue CPAP (6) Hypothyroid: TSH WNL in Nov Continue levothyroxine 137 mcg PO daily (7) Colon cancer metastasized to lung: Complex history since 2007 currently on chemotherapy. RUL nodule increased in size but others decreased-mixed/stable disease as per Onco Heme/onc consulted as above (8) Port-A-Cath in place: noted (9) Diarrhea: C diff neg, likely due to antibiotics or secondary to acute cholecystitis seems more likely. Check stool culture-with Johana-no need to treat Appreciate GI consultation -Diarrhea improved somewhat -Continue colestipol -Continue imodium PRN -Plan for colonoscopy as an outpatient (10) Hypokalemia: likely secondary to poor p.o. intake and loose stools/GI losses Now resolved with replacement -Follow BMP and magnesium levels in the morning (11) History of pulmonary embolus (PE): Normally on Eliquis-holding Eliquis for surgery -restart SQ heparin 5000 Units q8h when okay with surgery (12) Depression: Continue sertraline (13) Hypomagnesemia: replaced and now improved (14) DVT prophylaxis: Hold apixaban as above, heparin subq postoperatively if okay with surgery until okay to resume apixaban SCDs Disposition-remain hospitalized for recovery from open cholecystectomy Admission and Anticipated Discharge Date Admission Date: May 07, 2020 Subjective Patient was seen in the PACU after her open cholecystectomy today. It was a very prolonged surgery requiring a lot of anesthesia. She was very drowsy when I saw her but would respond to verbal stimulus. Review of Systems Review of Systems: All systems reviewed & are unremarkable except as noted in HPI & below Physical Exam Constitutional: WD/WN, vitals as above + morbidly obese Eyes: + anicteric sclerae Neck: trachea midline, no thyromegaly Respiratory: normal respiratory effort, lungs clear to auscultation Cardiovascular: RRR, no murmur, no edema Chest (Breasts): Chest: normal inspection of chest Gastrointestinal (Abdomen): Inspection/Auscultation: + abdomen abnormal to inspection (Multiple dressings in place with ADÁN drain with serosanguineous drainage) Percussion/Palpation: abdomen soft Musculoskeletal: Extremities: extremities normal to inspection; no cyanosis and no clubbing Skin: no rashes, warm and dry Results & Data Results & Data ([facility]) Vital Signs (Past 12 Hours) Vital Signs Temp Pulse Pulse Pulse Resp BP BP 05/16/20 16:58 82 16 05/16/20 11:46 36.8 C 20 L 86 20 149/83 H 05/16/20 11:07 36.9 C 83 18 132/82 05/16/20 10:32 36.9 C 83 18 128/81 05/16/20 09:32 36.9 C 82 16 125/84 05/16/20 09:17 36.8 C 84 18 130/77 05/16/20 07:44 36.8 C 83 18 112/71 Pulse Ox 05/16/20 16:58 95 05/16/20 11:46 94 05/16/20 11:07 92 05/16/20 10:32 92 05/16/20 09:32 93 05/16/20 09:17 06/19/20 07:44 91 Laboratory Results 05/16/20 05/16/20 Range/Units 07:01 07:01 WBC 10.15 (4.8-10.8) K/uL RBC 2.78 L (4.2-5.4) M/uL Hgb 9.2 L (12.0-16.0) g/dL Hct 30.6 L (37-47) % MCV 110.1 H (80-100) fL MCH 33.1 (25-34) pg MCHC 30.1 L (32-36) g/dL RDW Std Deviation 89.8 H (36.4-46.3) fL RDW Coeff of Marcell 22.6 H (11.5-14.5) % Plt Count 83 L (130-400) K/uL MPV 10.7 H (7.4-10.4) fL Absolute Nucleated RBC 0.19 H (0-0) K/uL Nucleated RBC % (auto) 1.8 % Neutrophils % (Manual) 40.8 % Lymphocytes % (Manual) 23.5 % Monocytes % (Manual) 16.5 % Eosinophils % (Manual) 4.3 % Basophils % (Manual) 0.9 % Metamyelocytes % (Man) 0.9 % Myelocytes % (Man) 12.2 % Promyelocytes % (Man) 0.9 % Neutrophils # (Manual) 4.14 (1.4-6.5) K/uL Total Absolute Neuts 4.14 (1.4-6.5) K/uL Lymphocytes # (Manual) 2.39 (1.2-3.4) K/uL Total Abs Lymphocytes 2.39 (1.2-3.4) K/uL Monocytes # (Manual) 1.67 H (0.11-0.59) K/uL Eosinophils # (Manual) 0.44 (0-0.5) K/uL Basophils # (Manual) 0.09 (0-0.2) K/uL Metamyelocytes # (Man) 0.09 H (0-0) K/uL Myelocytes # (Manual) 1.24 H (0-0) K/uL Promyelocytes # (Man) 0.09 H (0-0) K/uL Toxic Granulation 3+ Dohle Bodies 2+ Polychromasia 1+ Anisocytosis Present Ovalocytes 1+ Sodium 143 (136-145) mmol/L Potassium 3.5 (3.5-5.1) mmol/L Chloride 109 H (98-107) mmol/L Carbon Dioxide 27 (21-32) mmol/L Anion Gap 7.0 (3-11) BUN 8 (7-18) mg/dl Creatinine 1.23 H (0.6-1.2) mg/dl Est Cr Clr Drug Dosing 57.5 ml/min Est GFR ( Amer) 52.6 Est GFR (Non-Af Amer) 45.4 BUN/Creatinine Ratio 6.2 L (10-20) Glucose 108 H (70-99) mg/dl Calcium 8.3 L (8.5-10.1) mg/dl Magnesium 2.2 (1.8-2.4) mg/dl Total Bilirubin 0.3 (0.2-1) mg/dl AST 36 (15-37) U/L ALT 21 (12-78) U/L Alkaline Phosphatase 82 (45-117) U/L Total Protein 5.6 L (6.4-8.2) gm/dl Albumin 2.8 L (3.4-5.0) gm/dl Globulin 2.8 (2.5-4.0) gm/dl Albumin/Globulin Ratio 1.0 (0.9-2) PG Care Time/CCT Total # of Minutes Spent Total Time Spent with Patient: Total time spent is greater than 50% in coordination of care (as documented) at patient's floor/unit and/or counseling patient: Coding Level of Care Code 65860 Subseq Hosp Care Lvl 2 Diagnoses Cholecystitis K81.9 Antineoplastic chemotherapy induced pancytopenia D61.810; T45.1X5A GERD (gastroesophageal reflux disease) K21.9 Esophagitis presence: esophagitis presence not specified COPD (chronic obstructive pulmonary disease) J44.9 Sleep apnea G47.30 Hypothyroid E03.9 Hypothyroidism type: acquired Colon cancer metastasized to lung C18.9; C78.00 Port-A-Cath in place Z95.828 Diarrhea R19.7 Diarrhea type: unspecified type Hypokalemia E87.6 History of pulmonary embolus (PE) Z86.711 Depression F32.9 Hypomagnesemia E83.42 DVT prophylaxis Z29.9 (1) GERD (gastroesophageal reflux disease) Esophagitis presence: esophagitis presence not specified Qualified Code(s): K21.9 - Gastro-esophageal reflux disease without esophagitis (2) Hypothyroid Hypothyroidism type: acquired Qualified Code(s): E03.9 - Hypothyroidism, unspecified (3) Diarrhea Diarrhea type: unspecified type Qualified Code(s): R19.7 - Diarrhea, unspecified
--- NOTE | 2020-05-16 17:38 | Anesthesiology Progress Note ---
Date of Service May 16, 2020 Anesthesia Post Procedure Vital Signs Vital Signs: Temp Pulse Pulse Pulse Pulse Resp BP 05/16/20 17:20 82 16 05/16/20 17:10 81 18 05/16/20 17:00 81 16 05/16/20 16:58 82 16 05/16/20 16:50 82 16 05/16/20 16:41 36.0 C L 81 18 05/16/20 11:46 36.8 C 20 L 86 20 05/16/20 11:07 36.9 C 83 18 05/16/20 10:32 36.9 C 83 18 05/16/20 09:32 36.9 C 82 16 125/84 05/16/20 09:17 36.8 C 84 18 130/77 05/16/20 07:44 36.8 C 83 18 05/16/20 03:46 37.0 C 83 14 05/15/20 23:25 36.7 C 87 14 05/15/20 20:45 36.9 C 80 14 BP BP Pulse Ox 05/16/20 17:20 152/85 H 95 05/16/20 17:10 154/86 H 94 05/16/20 17:00 159/96 H 97 05/16/20 16:58 95 05/16/20 16:50 147/95 H 95 05/16/20 16:41 156/88 H 96 05/16/20 11:46 149/83 H 94 05/16/20 11:07 132/82 92 05/16/20 10:32 128/81 92 05/16/20 09:32 93 05/16/20 09:17 05/16/20 07:44 112/71 91 05/16/20 03:46 137/74 96 05/15/20 23:25 129/75 96 05/15/20 20:45 129/67 93 Pain Intensity Right Upper Abdomen: Pain Intensity: 0 Back: Pain Intensity: 0 Medial Abdomen: Pain Intensity: 6 Transfer of Care Handoff Completed per policy Notes Mental Status: alert / awake / arousable and participated in evaluation Patient Amnestic to Procedure: Yes Nausea / Vomiting: adequately controlled Pain: adequately controlled Airway Patency, RR, SpO2: stable & adequate BP & HR: stable & adequate Hydration State: stable & adequate Anesthetic Complications: no major complications apparent and Pt Satisfied with anesthetic care
[2020-05-16] MEDS ORDERED: OXYCODONE/ACETAMINOPHEN 5mg/325mg TAB PO PRN ×2 (20:13→20:14)
[2020-05-16] MEDS: COLESTIPOL HCL 1 GM TAB PO SCH (20:15)
[2020-05-16] MEDS: FLUTICASONE FUROATE 200MCG 14 PUFFS/INHALER INH SCH (21:51)
--- NOTE | 2020-05-17 00:27 | Operative Report (OR) ---
DATE OF OPERATION: 05/16/2020 PREOPERATIVE DIAGNOSES: Acute cholecystitis, cholelithiasis. POSTOPERATIVE DIAGNOSES: Acute cholecystitis, cholelithiasis with anterior abdominal wall adhesions. PROCEDURE: Laparoscopic lysis of adhesions with attempted laparoscopic cholecystectomy, conversion to open cholecystectomy. SURGEON: Michael Ibrahim MD PRACTICE MANAGERS: Renee Kat PA-C FINDINGS: The patient had multiple adhesions to the anterior abdominal wall, mostly in the midline underneath the scar and underneath the mesh from her previous ventral hernia repair. The right side of the abdomen, especially in the upper abdomen was adhesion free. The left upper abdomen was adhesion free as well. The gallbladder wall was markedly thickened. There were dense adhesions of the omentum. The colon was more loosely adhesed. The tissues were quite thickened around the infundibulum and neck area of the gallbladder. It was difficult to identify anatomy and at one point I identified an area where bile was within the field. I could not identify the source of the bile and for that reason the procedure was converted to an open procedure. Upon doing that, the cystic duct was identified. Its junction with the common bile duct was identified. The cystic duct was short. TECHNIQUE: The patient was given a general anesthetic and the area was prepped and draped in the usual sterile fashion. The upper midline introducer was made towards the left side off the midline. Skin incision was planned and the subcutaneous tissue was anesthetized with 1% Xylocaine without epinephrine. Skin incision was made and carried down through the subcutaneous tissue. The fascia was identified and incised. The muscle was split and the posterior sheath and peritoneum were identified, incised, and the introducer was placed bluntly. The abdomen was then insufflated to a pressure of 15 mmHg with carbon dioxide. Camera was passed. The left upper quadrant was inspected. There were no adhesions at the insertion site of the introducer site. I placed a 30-degree camera. I was able to get below the level of the adhesions and see the right side of the abdomen at the level of the umbilicus. This was free of adhesion as well. I anesthetized the skin to the right of the umbilicus and beyond the edge of the mesh. An introducer was placed there under direct vision. The camera was passed through that area. I was then able to visualize the left side of the abdomen and looked at the anterior abdominal wall. I placed a 5 mm port under direct vision after anesthetizing the skin in layers towards the left side of the abdominal wall. Through that port, I passed a scissor and under direct vision with a camera in the periumbilical port, I was able to free adhesions from the anterior abdominal wall and off the falciform, which gave instrument access from the upper midline introducer. I was also easily able to see the right upper quadrant. The 2 right upper quadrant introducers were placed. I could not grasp the gallbladder. The fundus was easily seen. The drainage needle was then passed under direct vision into the gallbladder and the gallbladder was drained allowing me to grasp the gallbladder and place upward traction. The adhesions of the omentum were quite thickened. These were divided. The adhesions just above the colon were more flimsy and those were taken down using blunt dissection. The tissues around the infundibulum, neck, and cystic duct area were quite thickened. I opened them millimeter by millimeter on the lateral side, working down towards the cystic duct. I was able to open some of the tissues along the medial wall as well, but identifying the wall of the gallbladder and them from the thickened adhesions was difficult. I used blunt dissection and hydrodissection in order to make that easier. I did dissect some of the gallbladder away from the liver on the lateral side allowing better mobility. However, at that point after picking millimeter by millimeter, there was bile seen that did not appear to be coming from the gallbladder. At that point, the gas was allowed to escape and the introducers were removed. A right subcostal incision was made, carried down through the skin and subcutaneous tissue to the anterior rectus sheath, which was opened. The muscle was divided and hemostasis was obtained using electrocautery at all times. The posterior sheath and peritoneum were opened along the length of the incision. The Bookwalter retractor was then applied for adequate traction. I then performed a dome-down technique on the gallbladder. The cystic artery had already been clipped and divided during the laparoscopic dissection. There was thickened tissue that was adhering the remainder of the gallbladder towards the triangle of Calot and this was all divided. There were some thicker lymphatics that were clipped. Once that was accomplished, I was able to remove the gallbladder. The site of the leak was identified. I attempted to place a cholangiogram catheter, but could not successfully keep it within the cystic duct. The cystic duct was short. Its junction with the common bile duct more medially was easily visualized. I then decided to close the cystic duct. There was some friable tissue within the duct. I think this may have been the distal portion of the gallbladder as well. This was closed with a 5-0 Prolene running suture. There was no further bile leak. The wound was irrigated and the irrigation was removed. A separate stab incision was made lateral to the incision through which a 10 mm flat Roger-Givens was brought. It was cut to size and placed in the subhepatic space. Considering the patient's platelet count, FloSeal was placed in the gallbladder bed of the liver and over the areas of dissection. The drain was secured with a 3-0 nylon. The posterior sheath was closed with a running 0 PDS and the anterior rectus sheath was closed with a running #1 PDS. The fascia of the upper midline introducer site was closed with interrupted 0 Vicryl and the skin of all the incisions was closed with con. The estimated blood loss was 50 mL Sponge, needle, and instrument counts were correct prior to closure. The patient tolerated the surgical procedure without complication and was transferred to recovery. The physician optical assistant was present during the entire case. She helped with axis of the abdomen, running the camera, retraction during the laparoscopic procedure as well as during the open portion of the procedure and closure I attest to the content of the Intraoperative Record and any orders documented therein. Any exceptions are noted below. CHUCHO
[2020-05-17] MEDS: METOPROLOL TARTRATE 50 MG TAB PO SCH ×4 (00:47→22:07)
[2020-05-17] MEDS: SIMVASTATIN 40 MG TAB PO SCH ×2 (00:48→22:06)
[2020-05-17] MEDS: MAGNESIUM OXIDE 400 MG TAB PO SCH ×3 (00:48→22:06)
[2020-05-17] MEDS: ASPIRIN 81 MG ECTAB PO SCH ×2 (00:49→22:13)
[2020-05-17] MEDS: SERTRALINE HCL 50 MG TABLET PO SCH ×2 (00:49→22:06)
[2020-05-17] MEDS: ASCORBIC ACID 500 MG TAB PO SCH ×3 (00:49→22:06)
[2020-05-17] MEDS: CHOLECALCIFEROL 1,000 UNITS 25 MCG TAB PO SCH ×3 (01:14→22:06)
[2020-05-17] MEDS ORDERED: SODIUM CHLORIDE 0.9% 1000ML 500 ML IV ONE (02:43)
[2020-05-17] MEDS ORDERED: SODIUM CHLORIDE 0.9% 500 ML IV ONE (03:22)
[2020-05-17] MEDS: HEPARIN 100 UNIT/ML 5ML FLUSH FLUSH PRN ×3 (04:29→22:35)
[2020-05-17] MEDS: metroNIDAZOLE 500 MG/100 ML BAG IV SCH ×2 (05:44→12:48)
[2020-05-17] MEDS: MoRPHine SULFATE 2 MG/ML CARP IV PRN (05:44)
[2020-05-17 06:19] LABS: Hematocrit (blood only) 25.6 % (37-47); Mean Corpuscular Hemoglobin 34.2 pg (25-34); Mean Corpuscular Hgb Conc 31.3 g/dL (32-36); Mean Corpuscular Volume 109.4 fL (80-100); Nucleated RBC # (auto) 0.11 K/uL (0-0); Nucleated RBC % (auto) 1.1 %; RDW Coefficient of Variation 22.9 % (11.5-14.5); RDW Standard Deviation 89.3 fL (36.4-46.3); Red Blood Count 2.34 M/uL (4.2-5.4); White Blood Count 9.98 K/uL (4.8-10.8)
[2020-05-17 06:21] LABS: Mean Platelet Volume 11.2 fL (7.4-10.4); Platelet Count 69 K/uL (130-400)
[2020-05-17 07:04] LABS: Albumin Level 2.7 gm/dl (3.4-5.0); BUN Creatinine Ratio 8.3 (10-20); Bilirubin Direct 0.1 mg/dl (0-0.2); Bilirubin,Total 0.4 mg/dl (0.2-1); Calcium 7.7 mg/dl (8.5-10.1); Creatinine Clr Calc Pharmacy 76.9 ml/min; Est GFR (African American) 74.7; Est GFR (Non-African American) 64.4; Potassium 3.7 mmol/L (3.5-5.1); Total Protein 5.3 gm/dl (6.4-8.2)
[2020-05-17 07:12] LABS: ALC (manual) 0.88 K/uL (1.2-3.4); ANC (manual) 7.43 K/uL (1.4-6.5); Anisocytosis Present; Basophils # (manual) 0.09 K/uL (0-0.2); Basophils % (manual) 0.9 %; Dohle Bodies 1+; Lymphocytes # (manual) 0.88 K/uL (1.2-3.4); Lymphocytes % (manual) 8.8 %; Macrocytosis Present; Metamyelocytes # (manual) 0.18 K/uL (0-0); Metamyelocytes % (manual) 1.8 %; Monocytes # (manual) 0.88 K/uL (0.11-0.59); Monocytes % (manual) 8.8 %; Myelocytes # (manual) 0.35 K/uL (0-0); Myelocytes % (manual) 3.5 %; Neutrophils # (manual) 7.43 K/uL (1.4-6.5); Neutrophils % (manual) 74.4 %; Promyelocytes # (manual) 0.18 K/uL (0-0); Promyelocytes % (manual) 1.8 %; Toxic Granulation 3+
[2020-05-17] MEDS: PANTOprazole 40 MG TAB PO SCH (08:30)
[2020-05-17] MEDS: MULTIVITAMIN TAB PO SCH (08:30)
--- NOTE | 2020-05-17 09:37 | Surgery Progress Note ---
Date of Service May 17, 2020 Assessment & Plan (1) Cholelithiasis: Postoperative day #1 status post laparoscopic cholecystectomy converted to open. She also required lysis of multiple adhesions Hemodynamically stable No evidence of bile leak by appearance of ADÁN drainage AST is mildly elevated at 77 but remainder of LFTs are normal Platelet count is 69,000 this morning H&H is 25.6 Continue to monitor those Encouraged out of bed today Encourage p.o. intake Subjective Postoperative day #1 status post laparoscopic converted to open cholecystectomy for acute cholecystitis Patient's pain is under control ADÁN at 80 cc out of serosanguineous fluid since surgery Denies nausea and vomiting Has not tried to clear liquids yet this morning Physical Exam Gastrointestinal (Abdomen): Inspection/Auscultation: + abdominal surgical incision (Incisional dressings are clean dry and intact); abdomen not distended Percussion/Palpation: + abdomen tender (Incisional) and abdomen soft Bowel sounds present but decreased Results & Data Vital Signs (Past 12 Hours) Vital Signs Temp Pulse Pulse Resp BP Pulse Ox 05/17/20 07:47 37.1 C 85 20 107/68 97 05/17/20 02:30 36.7 C 85 18 137/80 98 05/17/20 01:07 51 L 18 96 05/17/20 00:45 82 141/78 H 99 05/16/20 23:35 36.4 C L 84 18 133/81 97 Laboratory Results 05/17/20 05/17/20 Range/Units 05:58 05:58 WBC 9.98 (4.8-10.8) K/uL RBC 2.34 L (4.2-5.4) M/uL Hgb 8.0 L (12.0-16.0) g/dL Hct 25.6 L (37-47) % MCV 109.4 H (80-100) fL MCH 34.2 H (25-34) pg MCHC 31.3 L (32-36) g/dL RDW Std Deviation 89.3 H (36.4-46.3) fL RDW Coeff of Marcell 22.9 H (11.5-14.5) % Plt Count 69 L (130-400) K/uL MPV 11.2 H (7.4-10.4) fL Absolute Nucleated RBC 0.11 H (0-0) K/uL Nucleated RBC % (auto) 1.1 % Neutrophils % (Manual) 74.4 % Lymphocytes % (Manual) 8.8 % Monocytes % (Manual) 8.8 % Basophils % (Manual) 0.9 % Metamyelocytes % (Man) 1.8 % Myelocytes % (Man) 3.5 % Promyelocytes % (Man) 1.8 % Neutrophils # (Manual) 7.43 H (1.4-6.5) K/uL Total Absolute Neuts 7.43 H (1.4-6.5) K/uL Lymphocytes # (Manual) 0.88 L (1.2-3.4) K/uL Total Abs Lymphocytes 0.88 L (1.2-3.4) K/uL Monocytes # (Manual) 0.88 H (0.11-0.59) K/uL Basophils # (Manual) 0.09 (0-0.2) K/uL Metamyelocytes # (Man) 0.18 H (0-0) K/uL Myelocytes # (Manual) 0.35 H (0-0) K/uL Promyelocytes # (Man) 0.18 H (0-0) K/uL Toxic Granulation 3+ Dohle Bodies 1+ Anisocytosis Present Macrocytosis Present Sodium 142 (136-145) mmol/L Potassium 3.7 (3.5-5.1) mmol/L Chloride 108 H (98-107) mmol/L Carbon Dioxide 30 (21-32) mmol/L Anion Gap 4.0 (3-11) BUN 8 (7-18) mg/dl Creatinine 0.92 D (0.6-1.2) mg/dl Est Cr Clr Drug Dosing 76.9 ml/min Est GFR ( Amer) 74.7 Est GFR (Non-Af Amer) 64.4 BUN/Creatinine Ratio 8.3 L (10-20) Glucose 108 H (70-99) mg/dl Calcium 7.7 L (8.5-10.1) mg/dl Magnesium 2.0 (1.8-2.4) mg/dl Total Bilirubin 0.4 (0.2-1) mg/dl Direct Bilirubin 0.1 (0-0.2) mg/dl AST 77 H (15-37) U/L ALT 30 (12-78) U/L Alkaline Phosphatase 68 (45-117) U/L Total Protein 5.3 L (6.4-8.2) gm/dl Albumin 2.7 L (3.4-5.0) gm/dl
[2020-05-17] MEDS: cefTRIAXone SODIUM 2,000 MG in DEXTROSE 5% 50 ML IV SCH (12:05)
--- NOTE | 2020-05-17 12:37 | Hospitalist Progress Note ---
Date of Service May 17, 2020 Assessment & Plan (1) Cholecystitis: Initially seen incidentally on outpatient imaging with CT abdomen/pelvis and then on WOLF here, but had been having intermittent RUQ pain and nausea as outpt HIDA scan also suggesting acute cholecystitis LFTs and bili normal preop for many days remains afebrile, no leukocytosis Her ANC was too low for surgery for many days due to chemo, but is finally normal with 4 doses of Neupogen -Continue ceftriaxone and metronidazole -Continue to hold apixaban for cholecystectomy-now POD#1, will d/w Surgery about when to resume -Now status post open cholecystectomy on 05/16, doing well post-op, ADÁN drain in place Hgb dropped to 8.0 after surgery -Continue to follow LFTs, CBC, BMP -pain control prn with acetaminophen, morphine, tramadol -carlie clears, adv diet as carlie under Surgery discretion (2) Antineoplastic chemotherapy induced pancytopenia: Last dose of chemotherapy was on 04/29 Hemoglobin is really not that far off from her baseline prior to her last dose of chemotherapy Hemoglobin was improved up to 9.2 and did receive 1 unit of PRBCs given on 05/11 for hemoglobin of 7.1 Now down to 8.0 post-op from acute blood loss anemia Remains hemodynamically stable Appreciate GI consultation-recommends colonoscopy as an outpatient for diarrhea and anemia Platelets were stable for many days in the 80s-90s, decreased after surgery to 60s likely from consumption Received 1 unit of platelets prior to surgery WBC count and ANC now significantly improved after 4 doses of Neupogen Isolation precautions for neutropenia can be stopped. Consulted heme/onc as noted above (3) GERD (gastroesophageal reflux disease): continue po PPI (4) COPD (chronic obstructive pulmonary disease): Continue usual maintenance inhalers. No acute exacerbation (5) Sleep apnea: Continue CPAP (6) Hypothyroid: TSH WNL in Nov Continue levothyroxine 137 mcg PO daily (7) Colon cancer metastasized to lung: Complex history since 2007 currently on chemotherapy. RUL nodule increased in size but others decreased-mixed/stable disease as per Onco Heme/onc consulted as above (8) Port-A-Cath in place: noted (9) Diarrhea: C diff neg, likely due to antibiotics or secondary to acute cholecystitis seems more likely. Checked stool culture-with Johana-no need to treat Appreciate GI consultation -Diarrhea improved somewhat -Continue colestipol -Continue imodium PRN -Plan for colonoscopy as an outpatient (10) Hypokalemia: likely secondary to poor p.o. intake and loose stools/GI losses Now resolved with replacement -Follow BMP and magnesium levels in the morning (11) History of pulmonary embolus (PE): Normally on Eliquis-holding Eliquis for surgery -restart SQ heparin 5000 Units q8h when okay with surgery-awaiting to hear back from them today on this matter (12) Depression: Continue sertraline (13) Hypomagnesemia: replaced and now improved (14) DVT prophylaxis: Holding apixaban as above, heparin subq postoperatively if okay with surgery until okay to resume apixaban SCDs Disposition-remain hospitalized for recovery from open cholecystectomy Encouraged OOB to chair and amb in room today Admission and Anticipated Discharge Date Admission Date: May 07, 2020 Subjective Pt reports some pain in epigastric region at times, otherwise no complaints. Is very sleepy today. Had a long surgery yesterday converted to open and had a lot of adhesions, free bile noted and ADÁN drain placed. No CP or SOB. Carlie some clears today and is passing flatus, no N/V. Review of Systems Review of Systems: All systems reviewed & are unremarkable except as noted in HPI & below Physical Exam Constitutional: WD/WN, vitals as above + morbidly obese Eyes: + anicteric sclerae Neck: trachea midline, no thyromegaly Respiratory: normal respiratory effort, lungs clear to auscultation Cardiovascular: RRR, no murmur, no edema Extremities: no calf tenderness and no edema Chest (Breasts): Chest: normal inspection of chest Gastrointestinal (Abdomen): normal bowel sounds, soft, nontender, no hepatosplenomegaly Inspection/Auscultation: + abdomen abnormal to inspection (Multiple dressings in place with ADÁN drain with serosanguineous drainage) Percussion/Palpation: abdomen soft Musculoskeletal: Extremities: extremities normal to inspection; no cyanosis and no clubbing Skin: no rashes, warm and dry Neurologic: moves all extremities and awake; no focal motor deficits Psychiatric: A+Ox3, euthymic affect Lymphatic: no lymphedema Results & Data Results & Data ([facility]) Vital Signs (Past 12 Hours) Vital Signs Temp Pulse Pulse Resp BP Pulse Ox 05/17/20 10:28 95 06/20/20 10:27 89 L 05/17/20 07:47 37.1 C 85 20 107/68 97 05/17/20 02:30 36.7 C 85 18 137/80 98 05/17/20 01:07 51 L 18 96 05/17/20 00:45 82 141/78 H 99 Laboratory Results 05/17/20 05/17/20 Range/Units 05:58 05:58 WBC 9.98 (4.8-10.8) K/uL RBC 2.34 L (4.2-5.4) M/uL Hgb 8.0 L (12.0-16.0) g/dL Hct 25.6 L (37-47) % MCV 109.4 H (80-100) fL MCH 34.2 H (25-34) pg MCHC 31.3 L (32-36) g/dL RDW Std Deviation 89.3 H (36.4-46.3) fL RDW Coeff of Marcell 22.9 H (11.5-14.5) % Plt Count 69 L (130-400) K/uL MPV 11.2 H (7.4-10.4) fL Absolute Nucleated RBC 0.11 H (0-0) K/uL Nucleated RBC % (auto) 1.1 % Neutrophils % (Manual) 74.4 % Lymphocytes % (Manual) 8.8 % Monocytes % (Manual) 8.8 % Basophils % (Manual) 0.9 % Metamyelocytes % (Man) 1.8 % Myelocytes % (Man) 3.5 % Promyelocytes % (Man) 1.8 % Neutrophils # (Manual) 7.43 H (1.4-6.5) K/uL Total Absolute Neuts 7.43 H (1.4-6.5) K/uL Lymphocytes # (Manual) 0.88 L (1.2-3.4) K/uL Total Abs Lymphocytes 0.88 L (1.2-3.4) K/uL Monocytes # (Manual) 0.88 H (0.11-0.59) K/uL Basophils # (Manual) 0.09 (0-0.2) K/uL Metamyelocytes # (Man) 0.18 H (0-0) K/uL Myelocytes # (Manual) 0.35 H (0-0) K/uL Promyelocytes # (Man) 0.18 H (0-0) K/uL Toxic Granulation 3+ Dohle Bodies 1+ Anisocytosis Present Macrocytosis Present Sodium 142 (136-145) mmol/L Potassium 3.7 (3.5-5.1) mmol/L Chloride 108 H (98-107) mmol/L Carbon Dioxide 30 (21-32) mmol/L Anion Gap 4.0 (3-11) BUN 8 (7-18) mg/dl Creatinine 0.92 D (0.6-1.2) mg/dl Est Cr Clr Drug Dosing 76.9 ml/min Est GFR ( Amer) 74.7 Est GFR (Non-Af Amer) 64.4 BUN/Creatinine Ratio 8.3 L (10-20) Glucose 108 H (70-99) mg/dl Calcium 7.7 L (8.5-10.1) mg/dl Magnesium 2.0 (1.8-2.4) mg/dl Total Bilirubin 0.4 (0.2-1) mg/dl Direct Bilirubin 0.1 (0-0.2) mg/dl AST 77 H (15-37) U/L ALT 30 (12-78) U/L Alkaline Phosphatase 68 (45-117) U/L Total Protein 5.3 L (6.4-8.2) gm/dl Albumin 2.7 L (3.4-5.0) gm/dl PG Care Time/CCT Total # of Minutes Spent Total Time Spent with Patient: Total time spent is greater than 50% in coordination of care (as documented) at patient's floor/unit and/or counseling patient: Coding Level of Care Code 14558 Subseq Hosp Care Lvl 3 Diagnoses Cholecystitis K81.9 Antineoplastic chemotherapy induced pancytopenia D61.810; T45.1X5A GERD (gastroesophageal reflux disease) K21.9 Esophagitis presence: esophagitis presence not specified COPD (chronic obstructive pulmonary disease) J44.9 Sleep apnea G47.30 Hypothyroid E03.9 Hypothyroidism type: acquired Colon cancer metastasized to lung C18.9; C78.00 Port-A-Cath in place Z95.828 Diarrhea R19.7 Diarrhea type: unspecified type Hypokalemia E87.6 History of pulmonary embolus (PE) Z86.711 Depression F32.9 Hypomagnesemia E83.42 DVT prophylaxis Z29.9 (1) GERD (gastroesophageal reflux disease) Esophagitis presence: esophagitis presence not specified Qualified Code(s): K21.9 - Gastro-esophageal reflux disease without esophagitis (2) Hypothyroid Hypothyroidism type: acquired Qualified Code(s): E03.9 - Hypothyroidism, unspecified (3) Diarrhea Diarrhea type: unspecified type Qualified Code(s): R19.7 - Diarrhea, unspecified
[2020-05-17] MEDS: COLESTIPOL HCL 1 GM TAB PO SCH (17:40)
[2020-05-17] MEDS: FLUTICASONE FUROATE 200MCG 14 PUFFS/INHALER INH SCH (22:05)
[2020-05-17] MEDS: HEPARIN SOD 5,000 UNIT/0.5 ML VIAL SQ SCH (22:08)
[2020-05-17] MEDS: ONDANSETRON INJ 2 MG/ML 2 ML VIAL IV PRN (22:35)
[2020-05-18] MEDS: HEPARIN SOD 5,000 UNIT/0.5 ML VIAL SQ SCH ×3 (05:58→21:32)
[2020-05-18 06:14] LABS: Mean Corpuscular Hgb Conc 31.8 g/dL (32-36); Nucleated RBC # (auto) 0.08 K/uL (0-0); Nucleated RBC % (auto) 0.8 %
[2020-05-18 06:27] LABS: Hematocrit (blood only) 23.3 % (37-47); Hemoglobin 7.4 g/dL (12.0-16.0); Mean Corpuscular Hemoglobin 34.6 pg (25-34); Mean Corpuscular Volume 108.9 fL (80-100); RDW Coefficient of Variation 22.8 % (11.5-14.5); RDW Standard Deviation 91.8 fL (36.4-46.3); Red Blood Count 2.14 M/uL (4.2-5.4); White Blood Count 8.98 K/uL (4.8-10.8)
[2020-05-18 06:50] LABS: Albumin Level 2.4 gm/dl (3.4-5.0); BUN Creatinine Ratio 10.5 (10-20); Calcium 7.6 mg/dl (8.5-10.1); Creatinine Clr Calc Pharmacy 83.3 ml/min; Est GFR (African American) 82.2; Est GFR (Non-African American) 70.9; Magnesium 2.1 mg/dl (1.8-2.4); Potassium 3.5 mmol/L (3.5-5.1)
[2020-05-18 06:53] LABS: Albumin Globulin Ratio 0.9 (0.9-2); Bilirubin,Total 0.5 mg/dl (0.2-1); Globulin 2.6 gm/dl (2.5-4.0); Phosphorus 2.5 mg/dl (2.5-4.9)
[2020-05-18 06:57] LABS: Platelet Count 55 K/uL (130-400)
[2020-05-18 06:59] LABS: ALC (manual) 1.28 K/uL (1.2-3.4); ANC (manual) 6.19 K/uL (1.4-6.5); Anisocytosis Present; Eosinophils # (manual) 0.16 K/uL (0-0.5); Eosinophils % (manual) 1.8 %; Lymphocytes # (manual) 1.28 K/uL (1.2-3.4); Lymphocytes % (manual) 14.2 %; Metamyelocytes # (manual) 0.24 K/uL (0-0); Metamyelocytes % (manual) 2.7 %; Monocytes # (manual) 0.95 K/uL (0.11-0.59); Monocytes % (manual) 10.6 %; Myelocytes # (manual) 0.16 K/uL (0-0); Myelocytes % (manual) 1.8 %; Neutrophils # (manual) 6.19 K/uL (1.4-6.5); Neutrophils % (manual) 68.9 %; Platelet Estimate Decreased (Normal); Polychromasia 1+; Tear Drop Cells 1+; Toxic Granulation 1+
[2020-05-18] MEDS: ALUMINUM/MAGNESIUM SUSP 30 ML UDC PO PRN (07:31)
[2020-05-18] MEDS: CHOLECALCIFEROL 1,000 UNITS 25 MCG TAB PO SCH ×2 (08:59→21:30)
[2020-05-18] MEDS: ASCORBIC ACID 500 MG TAB PO SCH ×2 (08:59→21:29)
[2020-05-18] MEDS: MULTIVITAMIN TAB PO SCH (09:00)
[2020-05-18] MEDS: MAGNESIUM OXIDE 400 MG TAB PO SCH ×2 (09:00→21:30)
[2020-05-18] MEDS: METOPROLOL TARTRATE 50 MG TAB PO SCH ×3 (09:00→21:31)
--- NOTE | 2020-05-18 09:08 | Surgery Progress Note ---
Date of Service May 18, 2020 Assessment & Plan (1) Cholecystitis: Postoperative day #2 status post laparoscopic converted to open cholecystectomy. The patient has improved from a GI standpoint Can advance to full liquid diet today Platelet count has decreased to 55,000 and H&H is at 7.4 and 23.3, management as per medicine team Encourage ambulation Subjective Postoperative day #2 status post laparoscopic converted to open cholecystectomy Feels better today Tolerating clear liquid diet Has passed flatus Denies nausea and vomiting Rosalba had 30 cc out yesterday and 30 cc out over the last shift all serosanguineous Physical Exam Gastrointestinal (Abdomen): Inspection/Auscultation: + abdominal surgical incision (All are clean, dry and intact); abdomen not distended Percussion/Palpation: + abdomen tender (Incisional only) and abdomen soft Results & Data Vital Signs (Past 12 Hours) Vital Signs Temp Pulse Resp BP Pulse Ox 05/18/20 08:59 90 116/74 91 05/18/20 07:42 37.1 C 88 18 116/77 94 05/18/20 01:41 90 05/17/20 23:41 37.3 C 91 H 18 104/70 87 L Laboratory Results 05/18/20 05/18/20 Range/Units 05:19 05:19 WBC 8.98 (4.8-10.8) K/uL RBC 2.14 L (4.2-5.4) M/uL Hgb 7.4 L (12.0-16.0) g/dL Hct 23.3 L (37-47) % MCV 108.9 H (80-100) fL MCH 34.6 H (25-34) pg MCHC 31.8 L (32-36) g/dL RDW Std Deviation 91.8 H (36.4-46.3) fL RDW Coeff of Marcell 22.8 H (11.5-14.5) % Plt Count 55 L (130-400) K/uL Absolute Nucleated RBC 0.08 H (0-0) K/uL Nucleated RBC % (auto) 0.8 % Neutrophils % (Manual) 68.9 % Lymphocytes % (Manual) 14.2 % Monocytes % (Manual) 10.6 % Eosinophils % (Manual) 1.8 % Metamyelocytes % (Man) 2.7 % Myelocytes % (Man) 1.8 % Neutrophils # (Manual) 6.19 (1.4-6.5) K/uL Total Absolute Neuts 6.19 (1.4-6.5) K/uL Lymphocytes # (Manual) 1.28 (1.2-3.4) K/uL Total Abs Lymphocytes 1.28 (1.2-3.4) K/uL Monocytes # (Manual) 0.95 H (0.11-0.59) K/uL Eosinophils # (Manual) 0.16 (0-0.5) K/uL Metamyelocytes # (Man) 0.24 H (0-0) K/uL Myelocytes # (Manual) 0.16 H (0-0) K/uL Toxic Granulation 1+ Platelet Estimate Decreased L (Normal) Polychromasia 1+ Anisocytosis Present Tear Drop Cells 1+ Sodium 143 (136-145) mmol/L Potassium 3.5 (3.5-5.1) mmol/L Chloride 108 H (98-107) mmol/L Carbon Dioxide 30 (21-32) mmol/L Anion Gap 5.0 (3-11) BUN 9 (7-18) mg/dl Creatinine 0.85 (0.6-1.2) mg/dl Est Cr Clr Drug Dosing 83.3 ml/min Est GFR ( Amer) 82.2 Est GFR (Non-Af Amer) 70.9 BUN/Creatinine Ratio 10.5 (10-20) Glucose 93 (70-99) mg/dl Calcium 7.6 L (8.5-10.1) mg/dl Phosphorus 2.5 (2.5-4.9) mg/dl Magnesium 2.1 (1.8-2.4) mg/dl Total Bilirubin 0.5 (0.2-1) mg/dl AST 40 H (15-37) U/L ALT 23 (12-78) U/L Alkaline Phosphatase 65 (45-117) U/L Total Protein 5.0 L (6.4-8.2) gm/dl Albumin 2.4 L (3.4-5.0) gm/dl Globulin 2.6 (2.5-4.0) gm/dl Albumin/Globulin Ratio 0.9 (0.9-2)
[2020-05-18] MEDS: PANTOprazole 40 MG TAB PO SCH (09:26)
[2020-05-18] MEDS: metroNIDAZOLE 500 MG/100 ML BAG IV SCH ×2 (11:56→18:42)
[2020-05-18] MEDS: HEPARIN 100 UNIT/ML 5ML FLUSH FLUSH PRN ×2 (13:00→19:51)
--- NOTE | 2020-05-18 14:47 | Hospitalist Progress Note ---
Date of Service May 18, 2020 Assessment & Plan (1) Cholecystitis: Initially seen incidentally on outpatient imaging with CT abdomen/pelvis and then on WOLF here, but had been having intermittent RUQ pain and nausea as outpt HIDA scan also suggesting acute cholecystitis LFTs and bili normal preop for many days remains afebrile, no leukocytosis Her ANC was too low for surgery for many days due to chemo, but then was finally normal with 4 doses of Neupogen Now status post open cholecystectomy on 05/16--had long surgery with lots of adhesions and had free bile noted intrabdominally during surgery suggestive of perforation -doing well post-op, ADÁN drain in place with serosang fluid (no bile) -Continue ceftriaxone and metronidazole-had to restart them today as has been #10 days of therapy but should be continued -Continue to hold apixaban in post-op period--> will d/w Surgery about when to resume Hgb dropped to 7.4 today but hemodynamically stable -Continue to follow LFTs, CBC, BMP -pain control prn with acetaminophen, morphine, tramadol -yossi full liquids diet--> adv diet as yossi under Surgery discretion (2) Antineoplastic chemotherapy induced pancytopenia: Last dose of chemotherapy was on 04/29 Hemoglobin was really not that far off from her baseline prior to her last dose of chemotherapy Hemoglobin was improved up to 9.2 and did receive 1 unit of PRBCs given on 05/11 for hemoglobin of 7.1 Now down to 7.4 post-op from acute blood loss anemia Remains hemodynamically stable -transfuse if hgb<7.0 or becomes hemodynamically unstable, symptomatic Appreciate GI consultation-recommends colonoscopy as an outpatient for diarrhea and anemia, but has not had any melena or hematochezia Platelets were stable for many days in the 80s-90s, decreased after surgery to 50s likely from consumption Received 1 unit of platelets prior to surgery WBC count and ANC now significantly improved after 4 doses of Neupogen Isolation precautions for neutropenia can be stopped. Consulted heme/onc as noted above -follow CBC (3) GERD (gastroesophageal reflux disease): continue po PPI (4) COPD (chronic obstructive pulmonary disease): Continue usual maintenance inhalers. No acute exacerbation (5) Sleep apnea: Continue CPAP (6) Hypothyroid: TSH WNL in Nov Continue levothyroxine 137 mcg PO daily (7) Colon cancer metastasized to lung: Complex history since 2007 currently on chemotherapy. RUL nodule increased in size but others decreased-mixed/stable disease as per Onco Heme/onc consulted as above (8) Port-A-Cath in place: noted (9) Diarrhea: C diff neg, likely due to antibiotics or secondary to acute cholecystitis seems more likely. Checked stool culture-with Johana-no need to treat Appreciate GI consultation -Diarrhea improved -Continue colestipol -Continue imodium PRN -Plan for colonoscopy as an outpatient (10) Hypokalemia: likely secondary to poor p.o. intake and loose stools/GI losses Now resolved with replacement -Follow BMP and magnesium levels in the morning (11) History of pulmonary embolus (PE): Normally on Eliquis-holding Eliquis in post-op period -restarted SQ heparin 5000 Units q8h as per SUrgery on POD#1 (12) Depression: Continue sertraline (13) Hypomagnesemia: replaced and now improved (14) DVT prophylaxis: Holding apixaban as above, heparin subq for now SCDs Disposition-remain hospitalized for recovery from open cholecystectomy Encouraged OOB to chair and amb in room today Admission and Anticipated Discharge Date Admission Date: May 07, 2020 Anticipated date of discharge: 05/20/20 Subjective Pt having pain at incision site, but otherwise doing well. Is OOB to the bathroom with assistance. Denies CP or SOB. Is now passing flatus and had a BM. Is yossi liquids diet, no N/V. Review of Systems Review of Systems: All systems reviewed & are unremarkable except as noted in HPI & below Physical Exam Constitutional: WD/WN, vitals as above + morbidly obese Eyes: + anicteric sclerae ENMT: external ear and nose normal, oropharynx normal Neck: trachea midline, no thyromegaly Respiratory: normal respiratory effort, lungs clear to auscultation Cardiovascular: RRR, no murmur, no edema Extremities: no calf tenderness and no edema Chest (Breasts): Chest: normal inspection of chest Gastrointestinal (Abdomen): normal bowel sounds, soft, nontender, no hepatosplenomegaly Inspection/Auscultation: + abdomen abnormal to inspection (Multiple dressings in place with ADÁN drain with serosanguineous drainage) Percussion/Palpation: + abdomen tender (mild at incision site) and abdomen soft; no guarding and abdomen not rigid Musculoskeletal: Spine: no lumbar spinal tenderness and no paraspinal tenderness Extremities: extremities normal to inspection; no cyanosis and no clubbing Skin: no rashes, warm and dry Neurologic: moves all extremities and awake; no focal motor deficits Psychiatric: A+Ox3, euthymic affect Lymphatic: no lymphedema Results & Data Results & Data ([facility]) Vital Signs (Past 12 Hours) Vital Signs Temp Pulse Resp BP Pulse Ox 05/18/20 13:35 89 105/70 92 05/18/20 08:59 90 116/74 91 05/18/20 07:42 37.1 C 88 18 116/77 94 Laboratory Results 05/18/20 05/18/20 Range/Units 05:19 05:19 WBC 8.98 (4.8-10.8) K/uL RBC 2.14 L (4.2-5.4) M/uL Hgb 7.4 L (12.0-16.0) g/dL Hct 23.3 L (37-47) % MCV 108.9 H (80-100) fL MCH 34.6 H (25-34) pg MCHC 31.8 L (32-36) g/dL RDW Std Deviation 91.8 H (36.4-46.3) fL RDW Coeff of Marcell 22.8 H (11.5-14.5) % Plt Count 55 L (130-400) K/uL Absolute Nucleated RBC 0.08 H (0-0) K/uL Nucleated RBC % (auto) 0.8 % Neutrophils % (Manual) 68.9 % Lymphocytes % (Manual) 14.2 % Monocytes % (Manual) 10.6 % Eosinophils % (Manual) 1.8 % Metamyelocytes % (Man) 2.7 % Myelocytes % (Man) 1.8 % Neutrophils # (Manual) 6.19 (1.4-6.5) K/uL Total Absolute Neuts 6.19 (1.4-6.5) K/uL Lymphocytes # (Manual) 1.28 (1.2-3.4) K/uL Total Abs Lymphocytes 1.28 (1.2-3.4) K/uL Monocytes # (Manual) 0.95 H (0.11-0.59) K/uL Eosinophils # (Manual) 0.16 (0-0.5) K/uL Metamyelocytes # (Man) 0.24 H (0-0) K/uL Myelocytes # (Manual) 0.16 H (0-0) K/uL Toxic Granulation 1+ Platelet Estimate Decreased L (Normal) Polychromasia 1+ Anisocytosis Present Tear Drop Cells 1+ Sodium 143 (136-145) mmol/L Potassium 3.5 (3.5-5.1) mmol/L Chloride 108 H (98-107) mmol/L Carbon Dioxide 30 (21-32) mmol/L Anion Gap 5.0 (3-11) BUN 9 (7-18) mg/dl Creatinine 0.85 (0.6-1.2) mg/dl Est Cr Clr Drug Dosing 83.3 ml/min Est GFR ( Amer) 82.2 Est GFR (Non-Af Amer) 70.9 BUN/Creatinine Ratio 10.5 (10-20) Glucose 93 (70-99) mg/dl Calcium 7.6 L (8.5-10.1) mg/dl Phosphorus 2.5 (2.5-4.9) mg/dl Magnesium 2.1 (1.8-2.4) mg/dl Total Bilirubin 0.5 (0.2-1) mg/dl AST 40 H (15-37) U/L ALT 23 (12-78) U/L Alkaline Phosphatase 65 (45-117) U/L Total Protein 5.0 L (6.4-8.2) gm/dl Albumin 2.4 L (3.4-5.0) gm/dl Globulin 2.6 (2.5-4.0) gm/dl Albumin/Globulin Ratio 0.9 (0.9-2) PG Care Time/CCT Total # of Minutes Spent Total Time Spent with Patient: Total time spent is greater than 50% in coordination of care (as documented) at patient's floor/unit and/or counseling patient: Coding Level of Care Code 33065 Subseq Hosp Care Lvl 2 Diagnoses Cholecystitis K81.9 Antineoplastic chemotherapy induced pancytopenia D61.810; T45.1X5A GERD (gastroesophageal reflux disease) K21.9 Esophagitis presence: esophagitis presence not specified COPD (chronic obstructive pulmonary disease) J44.9 Sleep apnea G47.30 Hypothyroid E03.9 Hypothyroidism type: acquired Colon cancer metastasized to lung C18.9; C78.00 Port-A-Cath in place Z95.828 Diarrhea R19.7 Diarrhea type: unspecified type Hypokalemia E87.6 History of pulmonary embolus (PE) Z86.711 Depression F32.9 Hypomagnesemia E83.42 DVT prophylaxis Z29.9 (1) GERD (gastroesophageal reflux disease) Esophagitis presence: esophagitis presence not specified Qualified Code(s): K21.9 - Gastro-esophageal reflux disease without esophagitis (2) Hypothyroid Hypothyroidism type: acquired Qualified Code(s): E03.9 - Hypothyroidism, unspecified (3) Diarrhea Diarrhea type: unspecified type Qualified Code(s): R19.7 - Diarrhea, unspecified
[2020-05-18] MEDS: COLESTIPOL HCL 1 GM TAB PO SCH (17:37)
[2020-05-18] MEDS: TRAMADOL HCL 50 MG TABLET PO PRN (17:37)
[2020-05-18] MEDS: cefTRIAXone SODIUM 2,000 MG in DEXTROSE 5% 50 ML IV SCH (17:37)
[2020-05-18] MEDS: FLUTICASONE FUROATE 200MCG 14 PUFFS/INHALER INH SCH (21:29)
[2020-05-18] MEDS: SIMVASTATIN 40 MG TAB PO SCH (21:30)
[2020-05-18] MEDS: ASPIRIN 81 MG ECTAB PO SCH (21:30)
[2020-05-18] MEDS: SERTRALINE HCL 50 MG TABLET PO SCH (21:31)
[2020-05-19] MEDS: metroNIDAZOLE 500 MG/100 ML BAG IV SCH ×3 (02:28→17:25)
[2020-05-19] MEDS: HEPARIN 100 UNIT/ML 5ML FLUSH FLUSH PRN ×4 (03:32→18:28)
[2020-05-19] MEDS: LEVOTHYROXINE SODIUM 137 MCG TABLET PO SCH (05:58)
[2020-05-19] MEDS: HEPARIN SOD 5,000 UNIT/0.5 ML VIAL SQ SCH ×2 (06:00→15:41)
[2020-05-19] MEDS: TRAMADOL HCL 50 MG TABLET PO PRN ×2 (06:02→16:25)
[2020-05-19 06:32] LABS: Mean Corpuscular Hgb Conc 31.5 g/dL (32-36); Nucleated RBC # (auto) 0.05 K/uL (0-0); Nucleated RBC % (auto) 0.6 %
[2020-05-19 06:39] LABS: Hematocrit (blood only) 23.8 % (37-47); Hemoglobin 7.5 g/dL (12.0-16.0); Mean Corpuscular Hemoglobin 34.6 pg (25-34); Mean Corpuscular Volume 109.7 fL (80-100); RDW Coefficient of Variation 23.1 % (11.5-14.5); RDW Standard Deviation 89.6 fL (36.4-46.3); Red Blood Count 2.17 M/uL (4.2-5.4); White Blood Count 7.81 K/uL (4.8-10.8)
[2020-05-19 07:03] LABS: ALC (manual) 1.16 K/uL (1.2-3.4); Anisocytosis Present; Basophils # (manual) 0.07 K/uL (0-0.2); Basophils % (manual) 0.9 %; Eosinophils # (manual) 0.07 K/uL (0-0.5); Eosinophils % (manual) 0.9 %; Lymphocytes # (manual) 1.16 K/uL (1.2-3.4); Lymphocytes % (manual) 14.8 %; Metamyelocytes # (manual) 0.13 K/uL (0-0); Metamyelocytes % (manual) 1.7 %; Monocytes # (manual) 0.68 K/uL (0.11-0.59); Monocytes % (manual) 8.7 %; Myelocytes % (manual) 2.6 %; Neutrophils % (manual) 70.4 %; Platelet Count 71 K/uL (130-400); Platelet Estimate Decreased (Normal); Polychromasia 1+; Tear Drop Cells 1+
[2020-05-19 07:10] LABS: Albumin Globulin Ratio 0.9 (0.9-2); Albumin Level 2.4 gm/dl (3.4-5.0); BUN Creatinine Ratio 12.8 (10-20); Bilirubin,Total 0.4 mg/dl (0.2-1); Calcium 8.1 mg/dl (8.5-10.1); Creatinine Clr Calc Pharmacy 84.3 ml/min; Est GFR (African American) 83.4; Est GFR (Non-African American) 71.9; Globulin 2.7 gm/dl (2.5-4.0); Magnesium 2.2 mg/dl (1.8-2.4); Potassium 3.4 mmol/L (3.5-5.1); Total Protein 5.1 gm/dl (6.4-8.2)
[2020-05-19] MEDS ORDERED: POTASSIUM CHLORIDE 20 MEQ TABCR PO ONE (08:30)
[2020-05-19] MEDS: ASCORBIC ACID 500 MG TAB PO SCH ×2 (09:06→21:39)
[2020-05-19] MEDS: CHOLECALCIFEROL 1,000 UNITS 25 MCG TAB PO SCH ×2 (09:06→21:39)
[2020-05-19] MEDS: PANTOprazole 40 MG TAB PO SCH (09:06)
[2020-05-19] MEDS: MULTIVITAMIN TAB PO SCH (09:07)
[2020-05-19] MEDS: METOPROLOL TARTRATE 50 MG TAB PO SCH ×3 (09:07→21:37)
[2020-05-19] MEDS: MAGNESIUM OXIDE 400 MG TAB PO SCH ×2 (09:07→21:38)
[2020-05-19] MEDS: cefTRIAXone SODIUM 2,000 MG in DEXTROSE 5% 50 ML IV SCH (14:01)
--- NOTE | 2020-05-19 15:36 | Surgery Progress Note ---
Date of Service May 19, 2020 Assessment & Plan (1) Cholecystitis: Postoperative day #3 status post laparoscopic converted to open cholecystectomy. The patient has improved from a GI standpoint avss, amparo with 20 cc last 24 hours Plan: HIDA scan to rule out biliary leak soft diet , low fat continue pain management continue drain encourage ambulation continue medical management Dr. Ibrahim has seen and examined pt, agrees with above. Subjective feeling better today no nausea pain at drain site tolerated full liquids, wants soft food Physical Exam Constitutional: WD/WN, vitals as above + obese; no acute distress Respiratory: normal respiratory effort Gastrointestinal (Abdomen): Inspection/Auscultation: abdomen normal to inspection and + abdominal surgical drain present (serous output, somewhat bile looking); abdomen not distended Percussion/Palpation: + abdomen tender (at incision site and drain site) and abdomen soft; no guarding and abdomen not rigid Skin: no rashes, warm and dry Psychiatric: A+Ox3, euthymic affect Results & Data Vital Signs (Past 12 Hours) Vital Signs Temp Pulse Resp BP Pulse Ox 05/19/20 08:14 37.0 C 87 18 122/77 92 Laboratory Results 05/19/20 05/19/20 Range/Units 05:39 05:39 WBC 7.81 (4.8-10.8) K/uL RBC 2.17 L (4.2-5.4) M/uL Hgb 7.5 L (12.0-16.0) g/dL Hct 23.8 L (37-47) % MCV 109.7 H (80-100) fL MCH 34.6 H (25-34) pg MCHC 31.5 L (32-36) g/dL RDW Std Deviation 89.6 H (36.4-46.3) fL RDW Coeff of Marcell 23.1 H (11.5-14.5) % Plt Count 71 L (130-400) K/uL Absolute Nucleated RBC 0.05 H (0-0) K/uL Nucleated RBC % (auto) 0.6 % Neutrophils % (Manual) 70.4 % Lymphocytes % (Manual) 14.8 % Monocytes % (Manual) 8.7 % Eosinophils % (Manual) 0.9 % Basophils % (Manual) 0.9 % Metamyelocytes % (Man) 1.7 % Myelocytes % (Man) 2.6 % Neutrophils # (Manual) 5.50 (1.4-6.5) K/uL Total Absolute Neuts 5.50 (1.4-6.5) K/uL Lymphocytes # (Manual) 1.16 L (1.2-3.4) K/uL Total Abs Lymphocytes 1.16 L (1.2-3.4) K/uL Monocytes # (Manual) 0.68 H (0.11-0.59) K/uL Eosinophils # (Manual) 0.07 (0-0.5) K/uL Basophils # (Manual) 0.07 (0-0.2) K/uL Metamyelocytes # (Man) 0.13 H (0-0) K/uL Myelocytes # (Manual) 0.20 H (0-0) K/uL Platelet Estimate Decreased L (Normal) Polychromasia 1+ Anisocytosis Present Tear Drop Cells 1+ Sodium 142 (136-145) mmol/L Potassium 3.4 L (3.5-5.1) mmol/L Chloride 107 (98-107) mmol/L Carbon Dioxide 31 (21-32) mmol/L Anion Gap 4.0 (3-11) BUN 11 (7-18) mg/dl Creatinine 0.84 (0.6-1.2) mg/dl Est Cr Clr Drug Dosing 84.3 ml/min Est GFR ( Amer) 83.4 Est GFR (Non-Af Amer) 71.9 BUN/Creatinine Ratio 12.8 (10-20) Glucose 86 (70-99) mg/dl Calcium 8.1 L (8.5-10.1) mg/dl Magnesium 2.2 (1.8-2.4) mg/dl Total Bilirubin 0.4 (0.2-1) mg/dl AST 24 (15-37) U/L ALT 20 (12-78) U/L Alkaline Phosphatase 65 (45-117) U/L Total Protein 5.1 L (6.4-8.2) gm/dl Albumin 2.4 L (3.4-5.0) gm/dl Globulin 2.7 (2.5-4.0) gm/dl Albumin/Globulin Ratio 0.9 (0.9-2)
--- NOTE | 2020-05-19 15:36 | Nuclear Medicine Report ---
NM hepatobiliary HISTORY: Post cholecystectomy s/p open cholecystectomy, r/o bile leak COMPARISON: None. TECHNIQUE: Immediately following the intravenous administration of 5.6 mCi Tc-99m Choletec, dynamic a nterior abdominal imaging was performed. FINDINGS: Uniform hepatic tracer accumulation is shown. Prompt intrahepatic biliary excretion is seen. The comm on bile duct, and small bowel are all visualized by 20 minutes. This appearance represents the normal sequence of biliary excretion. IMPRESSION: Unremarkable exam post cholecystectomy. No evidence for isotope extravasation. ACT 112: Negative or not required by law. The above report was generated using voice recognition software. It may contain grammatical, syntax or spelling errors. Electronically signed by: Michael Bhat M.D. 05/19/2020 3:35 PM
[2020-05-19] MEDS: ACETAMINOPHEN 325 MG TAB PO PRN (15:47)
--- NOTE | 2020-05-19 15:48 | Hospitalist Progress Note ---
Date of Service May 19, 2020 Assessment & Plan (1) Cholecystitis: Initially seen incidentally on outpatient imaging with CT abdomen/pelvis and then on WOLF here, but had been having intermittent RUQ pain and nausea as outpt HIDA scan also suggesting acute cholecystitis LFTs and bili normal preop for many days remains afebrile, no leukocytosis Her ANC was too low for surgery for many days due to chemo, but then was finally normal with 4 doses of Neupogen Now status post open cholecystectomy on 05/16--had long surgery with lots of adhesions and had free bile noted intrabdominally during surgery suggestive of perforation -doing well post-op, ADÁN drain in place with serosang fluid (no bile) -Continue ceftriaxone and metronidazole-had to restart them today as has been #10 days of therapy but should be continued -Continue to hold apixaban in post-op period--> ok from surgical standpoint to resume today Hgb dropped to 7.4 today but hemodynamically stable -Continue to follow LFTs, CBC, BMP -pain control prn with acetaminophen, morphine, tramadol -advanced to soft low fat diet per surgery Repeat HIDA 05/19 without bile leak (2) Antineoplastic chemotherapy induced pancytopenia: Last dose of chemotherapy was on 04/29 Neutropenia resolved with neupogen x 4 doses Hemoglobin was really not that far off from her baseline prior to her last dose of chemotherapy Hemoglobin was improved up to 9.2 and did receive 1 unit of PRBCs given on 05/11 for hemoglobin of 7.1 Now down to 7.5 post-op from acute blood loss anemia Remains hemodynamically stable -transfuse if hgb<7.0 or becomes hemodynamically unstable, symptomatic Appreciate GI consultation-recommends colonoscopy as an outpatient for diarrhea and anemia, but has not had any melena or hematochezia Platelets were stable for many days in the 80s-90s, decreased after surgery to 50s likely from consumption, now improved to 71,000 Received 1 unit of platelets prior to surgery Consulted heme/onc as noted above (3) GERD (gastroesophageal reflux disease): continue po PPI (4) COPD (chronic obstructive pulmonary disease): Continue usual maintenance inhalers. No acute exacerbation (5) Sleep apnea: Continue CPAP (6) Hypothyroid: TSH WNL in Nov Continue levothyroxine 137 mcg PO daily (7) Colon cancer metastasized to lung: Complex history since 2007 currently on chemotherapy. RUL nodule increased in size but others decreased-mixed/stable disease as per Onco Heme/onc consulted as above (8) Port-A-Cath in place: noted (9) Diarrhea: C diff neg, likely due to antibiotics or secondary to acute cholecystitis seems more likely. Checked stool culture-with Johana-no need to treat Appreciate GI consultation -Diarrhea improved -Continue colestipol -Continue imodium PRN -Plan for colonoscopy as an outpatient (10) Hypokalemia: likely secondary to poor p.o. intake and loose stools/GI losses Mild hypokalemia today, replaced -Follow BMP and magnesium levels in the morning (11) History of pulmonary embolus (PE): Normally on Eliquis-held Eliquis in post-op period - will resume, ok from surgery's standpoint. (12) Depression: Continue sertraline (13) Hypomagnesemia: replaced and now improved (14) DVT prophylaxis: Apixaban SCDs Disposition-remain hospitalized for recovery from open cholecystectomy Admission and Anticipated Discharge Date Admission Date: May 07, 2020 Subjective Ms. Bee continues to have some diarrhea but has no abdominal pain. Looking forward to increasing her diet. ROS Constitutional: no chills, aches, sweats or fever Respiratory: no sob,cough, sputum, or wheezing Cardiac: no chest pain, palpitations, edema, orthopnea or lightheadedness GI: see HPI : no dysuria or hesitancy Extremities: no joint pain or weakness Skin: no rash All other systems reviewed and negative Physical Exam Physical Exam: General: no distress Eyes: normal inspection, PERLL Respiratory: chest non tender, clear to auscultation, normal breath sounds, no respiratory distress, no accessory muscle use Cardiac: regular rate and rhythm, no rub or gallop, no murmur, no edema, no jvd GI/: active bowel sounds, no abd pain or tenderness, soft, non distended Extremities: normal range of motion, normal strength, non tender Neuro/Psych: alert and oriented x 3, normal mood and affect Skin: normal color, dry Results & Data Results & Data ([facility]) Vital Signs (Past 12 Hours) Vital Signs Temp Pulse Resp BP Pulse Ox 05/19/20 08:14 37.0 C 87 18 122/77 92 PG Care Time/CCT Total # of Minutes Spent Total Time Spent with Patient: Total time spent is greater than 50% in coordination of care (as documented) at patient's floor/unit and/or counseling patient: Coding Level of Care Code 01970 Subseq Hosp Care Lvl 3 Diagnoses Cholecystitis K81.9 Antineoplastic chemotherapy induced pancytopenia D61.810; T45.1X5A GERD (gastroesophageal reflux disease) K21.9 Esophagitis presence: esophagitis presence not specified COPD (chronic obstructive pulmonary disease) J44.9 Sleep apnea G47.30 Hypothyroid E03.9 Hypothyroidism type: acquired Colon cancer metastasized to lung C18.9; C78.00 Port-A-Cath in place Z95.828 Diarrhea R19.7 Diarrhea type: unspecified type Hypokalemia E87.6 History of pulmonary embolus (PE) Z86.711 Depression F32.9 Hypomagnesemia E83.42 DVT prophylaxis Z29.9 (1) Diarrhea Diarrhea type: unspecified type Qualified Code(s): R19.7 - Diarrhea, unspecified (2) Hypothyroid Hypothyroidism type: acquired Qualified Code(s): E03.9 - Hypothyroidism, unspecified (3) GERD (gastroesophageal reflux disease) Esophagitis presence: esophagitis presence not specified Qualified Code(s): K21.9 - Gastro-esophageal reflux disease without esophagitis
[2020-05-19] MEDS: COLESTIPOL HCL 1 GM TAB PO SCH (16:18)
[2020-05-19] MEDS: SIMVASTATIN 40 MG TAB PO SCH (21:37)
[2020-05-19] MEDS: ASPIRIN 81 MG ECTAB PO SCH (21:37)
[2020-05-19] MEDS: SERTRALINE HCL 50 MG TABLET PO SCH (21:38)
[2020-05-19] MEDS: FLUTICASONE FUROATE 200MCG 14 PUFFS/INHALER INH SCH (21:39)
[2020-05-19] MEDS: APIXABAN 5 MG TABLET PO SCH (22:05)
[2020-05-19] MEDS: ALUMINUM/MAGNESIUM SUSP 30 ML UDC PO PRN (23:01)
[2020-05-20] MEDS: metroNIDAZOLE 500 MG/100 ML BAG IV SCH ×3 (02:13→18:36)
[2020-05-20] MEDS: HEPARIN 100 UNIT/ML 5ML FLUSH FLUSH PRN ×3 (03:16→14:51)
[2020-05-20] MEDS: LEVOTHYROXINE SODIUM 137 MCG TABLET PO SCH (05:27)
[2020-05-20 06:21] LABS: Hematocrit (blood only) 24.9 % (37-47); Hemoglobin 7.5 g/dL (12.0-16.0); Mean Corpuscular Hemoglobin 33.8 pg (25-34); Mean Corpuscular Hgb Conc 30.1 g/dL (32-36); Mean Corpuscular Volume 112.2 fL (80-100); Mean Platelet Volume 12.7 fL (7.4-10.4); Nucleated RBC # (auto) 0.05 K/uL (0-0); Nucleated RBC % (auto) 0.7 %; Platelet Count 89 K/uL (130-400); RDW Coefficient of Variation 22.9 % (11.5-14.5); RDW Standard Deviation 92.7 fL (36.4-46.3); Red Blood Count 2.22 M/uL (4.2-5.4); White Blood Count 6.42 K/uL (4.8-10.8)
[2020-05-20 06:39] LABS: ANC (manual) 4.45 K/uL (1.4-6.5); Anisocytosis Present; Basophilic Stippling 1+; Basophils # (manual) 0.06 K/uL (0-0.2); Basophils % (manual) 0.9 %; Giant Platelets 1+; Macrocytosis Present; Metamyelocytes # (manual) 0.12 K/uL (0-0); Metamyelocytes % (manual) 1.8 %; Monocytes # (manual) 0.51 K/uL (0.11-0.59); Monocytes % (manual) 7.9 %; Myelocytes # (manual) 0.39 K/uL (0-0); Myelocytes % (manual) 6.1 %; Neutrophils # (manual) 4.45 K/uL (1.4-6.5); Neutrophils % (manual) 69.3 %; Tear Drop Cells 1+; Toxic Granulation 1+
[2020-05-20 06:50] LABS: Albumin Level 2.4 gm/dl (3.4-5.0); BUN Creatinine Ratio 11.8 (10-20); Calcium 8.1 mg/dl (8.5-10.1); Creatinine Clr Calc Pharmacy 85.3 ml/min; Est GFR (African American) 84.6; Potassium 3.8 mmol/L (3.5-5.1)
[2020-05-20 06:53] LABS: Albumin Globulin Ratio 0.9 (0.9-2); Bilirubin,Total 0.4 mg/dl (0.2-1); Globulin 2.8 gm/dl (2.5-4.0); Total Protein 5.2 gm/dl (6.4-8.2)
[2020-05-20] MEDS: CHOLECALCIFEROL 1,000 UNITS 25 MCG TAB PO SCH ×2 (09:20→21:15)
[2020-05-20] MEDS: APIXABAN 5 MG TABLET PO SCH ×2 (09:20→21:14)
[2020-05-20] MEDS: METOPROLOL TARTRATE 50 MG TAB PO SCH ×3 (09:20→21:13)
[2020-05-20] MEDS: MULTIVITAMIN TAB PO SCH (09:20)
[2020-05-20] MEDS: PANTOprazole 40 MG TAB PO SCH (09:20)
[2020-05-20] MEDS: MAGNESIUM OXIDE 400 MG TAB PO SCH ×2 (09:20→21:11)
[2020-05-20] MEDS: ASCORBIC ACID 500 MG TAB PO SCH ×2 (09:20→21:15)
[2020-05-20] MEDS: ALUMINUM/MAGNESIUM SUSP 30 ML UDC PO PRN (10:31)
--- NOTE | 2020-05-20 11:30 | Hospitalist Progress Note ---
Date of Service May 20, 2020 Assessment & Plan (1) Cholecystitis: Initially seen incidentally on outpatient imaging with CT abdomen/pelvis and then on WOLF here, but had been having intermittent RUQ pain and nausea as outpt HIDA scan also suggesting acute cholecystitis LFTs and bili normal preop for many days remains afebrile, no leukocytosis Her ANC was too low for surgery for many days due to chemo, but then was finally normal with 4 doses of Neupogen Now status post open cholecystectomy on 05/16--had long surgery with lots of adhesions and had free bile noted intrabdominally during surgery suggestive of perforation -doing well post-op, ADÁN drain in place with serosang fluid (no bile) -Continue ceftriaxone and metronidazole-had to restart them today as has been #10 days of therapy but should be continued -Continue to hold apixaban in post-op period--> ok from surgical standpoint to resume today Hgb dropped to 7.4 today but hemodynamically stable -Continue to follow LFTs, CBC, BMP -pain control prn with acetaminophen, morphine, tramadol -advanced to soft low fat diet per surgery - with some indigestion this morning but otherwise tolerating diet Repeat HIDA 05/19 without bile leak (2) Antineoplastic chemotherapy induced pancytopenia: Last dose of chemotherapy was on 04/29 Neutropenia resolved with neupogen x 4 doses Hemoglobin was really not that far off from her baseline prior to her last dose of chemotherapy Hemoglobin was improved up to 9.2 and did receive 1 unit of PRBCs given on 05/11 for hemoglobin of 7.1 Now down to 7.5 post-op from acute blood loss anemia but has been stable here for the last few days Remains hemodynamically stable -transfuse if hgb<7.0 or becomes hemodynamically unstable, symptomatic Appreciate GI consultation-recommends colonoscopy as an outpatient for diarrhea and anemia, but has not had any melena or hematochezia Platelets were stable for many days in the 80s-90s, decreased after surgery to 50s likely from consumption, now improved to 89,000 Received 1 unit of platelets prior to surgery Consulted heme/onc as noted above (3) GERD (gastroesophageal reflux disease): continue po PPI (4) COPD (chronic obstructive pulmonary disease): Continue usual maintenance inhalers. No acute exacerbation (5) Sleep apnea: Continue CPAP (6) Hypothyroid: TSH WNL in Nov Continue levothyroxine 137 mcg PO daily (7) Colon cancer metastasized to lung: Complex history since 2007 currently on chemotherapy. RUL nodule increased in size but others decreased-mixed/stable disease as per Onco Heme/onc consulted as above (8) Port-A-Cath in place: noted (9) Diarrhea: C diff neg, likely due to antibiotics or secondary to acute cholecystitis seems more likely. Checked stool culture-with Johana-no need to treat Appreciate GI consultation -Diarrhea improved -Continue colestipol -Continue imodium PRN -Plan for colonoscopy as an outpatient (10) Hypokalemia: Resolved likely secondary to poor p.o. intake and loose stools/GI losses -Follow BMP and magnesium levels in the morning (11) History of pulmonary embolus (PE): Continue home Eliquis (12) Depression: Continue sertraline (13) Hypomagnesemia: replaced and now improved (14) DVT prophylaxis: Apixaban SCDs Disposition-remain hospitalized for recovery from open cholecystectomy. Daughter Sandra updated by phone Admission and Anticipated Discharge Date Admission Date: May 07, 2020 Subjective Ms. Bee is complaining of some indigestion this morning following breakfast which was relieved with Maalox. She is feeling a little weak on her feet but has been getting up and around the room without assistance. ROS Constitutional: no chills, aches, sweats or fever Respiratory: no sob,cough, sputum, or wheezing Cardiac: no chest pain, palpitations, edema, orthopnea or lightheadedness GI: no abdominal pain, nausea, vomiting, diarrhea or constipation : no dysuria or hesitancy Extremities: no joint pain or weakness Skin: no rash All other systems reviewed and negative Physical Exam Physical Exam: General: no distress Eyes: normal inspection, PERLL Respiratory: chest non tender, clear to auscultation, normal breath sounds, no respiratory distress, no accessory muscle use Cardiac: regular rate and rhythm, no rub or gallop, no murmur, no edema, no jvd GI/: active bowel sounds, no abd pain or tenderness, soft, non distended Extremities: normal range of motion, normal strength, non tender Neuro/Psych: alert and oriented x 3, normal mood and affect Skin: normal color, dry Results & Data Results & Data ([facility]) Vital Signs (Past 12 Hours) Vital Signs Temp Pulse Resp BP Pulse Ox 05/20/20 07:13 36.8 C 88 16 123/75 94 PG Care Time/CCT Total # of Minutes Spent Total Time Spent with Patient: Total time spent is greater than 50% in coordination of care (as documented) at patient's floor/unit and/or counseling patient: Coding Level of Care Code 06550 Subseq Hosp Care Lvl 2 Diagnoses Cholecystitis K81.9 Antineoplastic chemotherapy induced pancytopenia D61.810; T45.1X5A GERD (gastroesophageal reflux disease) K21.9 Esophagitis presence: esophagitis presence not specified COPD (chronic obstructive pulmonary disease) J44.9 Sleep apnea G47.30 Hypothyroid E03.9 Hypothyroidism type: acquired Colon cancer metastasized to lung C18.9; C78.00 Port-A-Cath in place Z95.828 Diarrhea R19.7 Diarrhea type: unspecified type Hypokalemia E87.6 History of pulmonary embolus (PE) Z86.711 Depression F32.9 Hypomagnesemia E83.42 DVT prophylaxis Z29.9 (1) GERD (gastroesophageal reflux disease) Esophagitis presence: esophagitis presence not specified Qualified Code(s): K21.9 - Gastro-esophageal reflux disease without esophagitis (2) Hypothyroid Hypothyroidism type: acquired Qualified Code(s): E03.9 - Hypothyroidism, unspecified (3) Diarrhea Diarrhea type: unspecified type Qualified Code(s): R19.7 - Diarrhea, unspecified
[2020-05-20] MEDS: cefTRIAXone SODIUM 2,000 MG in DEXTROSE 5% 50 ML IV SCH (13:59)
[2020-05-20] MEDS: COLESTIPOL HCL 1 GM TAB PO SCH (15:31)
--- NOTE | 2020-05-20 16:40 | Surgery Progress Note ---
Date of Service May 20, 2020 Assessment & Plan (1) Cholecystitis: Postoperative day #4 status post laparoscopic converted to open cholecystectomy. avss, amparo with 30 cc last shift, serosanguineous HIDA scan without leak tolerating diet minimal pain, more so with activity Plan: Okay from surgical standpoint for discharge remove amparo drain discharge instructions reviewed rx for tramadol prn pain sent to pharmacy f/u with Dr. Ibrahim 05/27/2020 at 1:[address] Ibrahim has seen and examined pt, agrees with above. Subjective feeling good, pain with ambulation and movement otherwise fine at rest Tramadol controls pain no nausea or vomiting + heartburn (biggest complaint) tolerated low fat diet Physical Exam Constitutional: WD/WN, vitals as above + obese Gastrointestinal (Abdomen): Inspection/Auscultation: abdomen normal to inspection and + abdominal surgical drain present (serosanguineous); abdomen not distended Percussion/Palpation: + abdomen tender (along RUQ incision site, appropriate postop) and abdomen soft; no guarding and abdomen not rigid Skin: no rashes, warm and dry + incision (clean/dry/intact/ with con) Psychiatric: A+Ox3, euthymic affect Results & Data Vital Signs (Past 12 Hours) Vital Signs Temp Pulse Pulse Resp BP Pulse Ox 05/20/20 16:19 36.8 C 87 17 121/72 93 05/20/20 07:13 36.8 C 88 16 123/75 94 Laboratory Results 05/20/20 05/20/20 Range/Units 05:34 05:34 WBC 6.42 (4.8-10.8) K/uL RBC 2.22 L (4.2-5.4) M/uL Hgb 7.5 L (12.0-16.0) g/dL Hct 24.9 L (37-47) % MCV 112.2 H (80-100) fL MCH 33.8 (25-34) pg MCHC 30.1 L (32-36) g/dL RDW Std Deviation 92.7 H (36.4-46.3) fL RDW Coeff of Marcell 22.9 H (11.5-14.5) % Plt Count 89 L (130-400) K/uL MPV 12.7 H (7.4-10.4) fL Absolute Nucleated RBC 0.05 H (0-0) K/uL Nucleated RBC % (auto) 0.7 % Neutrophils % (Manual) 69.3 % Lymphocytes % (Manual) 14.0 % Monocytes % (Manual) 7.9 % Basophils % (Manual) 0.9 % Metamyelocytes % (Man) 1.8 % Myelocytes % (Man) 6.1 % Neutrophils # (Manual) 4.45 (1.4-6.5) K/uL Total Absolute Neuts 4.45 (1.4-6.5) K/uL Lymphocytes # (Manual) 0.90 L (1.2-3.4) K/uL Total Abs Lymphocytes 0.90 L (1.2-3.4) K/uL Monocytes # (Manual) 0.51 (0.11-0.59) K/uL Basophils # (Manual) 0.06 (0-0.2) K/uL Metamyelocytes # (Man) 0.12 H (0-0) K/uL Myelocytes # (Manual) 0.39 H (0-0) K/uL Toxic Granulation 1+ Giant Platelets 1+ Basophilic Stippling 1+ Anisocytosis Present Macrocytosis Present Tear Drop Cells 1+ Sodium 143 (136-145) mmol/L Potassium 3.8 (3.5-5.1) mmol/L Chloride 109 H (98-107) mmol/L Carbon Dioxide 30 (21-32) mmol/L Anion Gap 4.0 (3-11) BUN 10 (7-18) mg/dl Creatinine 0.83 (0.6-1.2) mg/dl Est Cr Clr Drug Dosing 85.3 ml/min Est GFR ( Amer) 84.6 Est GFR (Non-Af Amer) 73.0 BUN/Creatinine Ratio 11.8 (10-20) Glucose 90 (70-99) mg/dl Calcium 8.1 L (8.5-10.1) mg/dl Total Bilirubin 0.4 (0.2-1) mg/dl AST 18 (15-37) U/L ALT 19 (12-78) U/L Alkaline Phosphatase 65 (45-117) U/L Total Protein 5.2 L (6.4-8.2) gm/dl Albumin 2.4 L (3.4-5.0) gm/dl Globulin 2.8 (2.5-4.0) gm/dl Albumin/Globulin Ratio 0.9 (0.9-2) Diagnostic Findings NM hepatobiliary HISTORY: Post cholecystectomy s/p open cholecystectomy, r/o bile leak COMPARISON: None. TECHNIQUE: Immediately following the intravenous administration of 5.6 mCi Tc- 99m Choletec, dynamic anterior abdominal imaging was performed. FINDINGS: Uniform hepatic tracer accumulation is shown. Prompt intrahepatic biliary excretion is seen. The common bile duct, and small bowel are all visualized by 20 minutes. This appearance represents the normal sequence of biliary excretion. IMPRESSION: Unremarkable exam post cholecystectomy. No evidence for isotope extravasation.
[2020-05-20] MEDS: ASPIRIN 81 MG ECTAB PO SCH (21:14)
[2020-05-20] MEDS: SERTRALINE HCL 50 MG TABLET PO SCH (21:15)
[2020-05-20] MEDS: FLUTICASONE FUROATE 200MCG 14 PUFFS/INHALER INH SCH (21:16)
[2020-05-20] MEDS: SIMVASTATIN 40 MG TAB PO SCH (21:16)
[2020-05-20] MEDS: ACETAMINOPHEN 325 MG TAB PO PRN (21:24)
[2020-05-21] MEDS: metroNIDAZOLE 500 MG/100 ML BAG IV SCH ×2 (02:39→10:02)
[2020-05-21] MEDS: HEPARIN 100 UNIT/ML 5ML FLUSH FLUSH PRN ×2 (03:44→08:38)
[2020-05-21] MEDS: LEVOTHYROXINE SODIUM 137 MCG TABLET PO SCH (05:25)
--- NOTE | 2020-05-21 08:06 | Surgery Progress Note ---
Date of Service May 21, 2020 Assessment & Plan (1) Cholelithiasis: Postoperative day #5 status post laparoscopic converted to open cholecystectomy. She is doing well. Plan is for discharge today Can follow-up with me and has an appointment scheduled on Tuesday for staple removal. Subjective Postoperative day #5 status post laparoscopic converted open cholecystectomy Feels well Bowels move Tolerated diet without nausea or vomiting Having essentially no pain Physical Exam Gastrointestinal (Abdomen): Inspection/Auscultation: normal bowel sounds and + abdominal surgical incision (All are clean dry and intact); abdomen not distended Percussion/Palpation: abdomen soft; abdomen nontender Results & Data Vital Signs (Past 12 Hours) Vital Signs Temp Pulse Pulse Resp BP BP Pulse Ox 05/21/20 07:10 36.5 C 88 16 136/79 94 05/20/20 23:16 36.6 C 84 18 112/57 L 97 05/20/20 21:21 87 106/71
[2020-05-21] MEDS: MAGNESIUM OXIDE 400 MG TAB PO SCH (08:34)
[2020-05-21] MEDS: APIXABAN 5 MG TABLET PO SCH (08:34)
[2020-05-21] MEDS: CHOLECALCIFEROL 1,000 UNITS 25 MCG TAB PO SCH (08:34)
[2020-05-21] MEDS: MULTIVITAMIN TAB PO SCH (08:34)
[2020-05-21] MEDS: METOPROLOL TARTRATE 50 MG TAB PO SCH (08:34)
[2020-05-21] MEDS: PANTOprazole 40 MG TAB PO SCH (08:34)
[2020-05-21] MEDS: ASCORBIC ACID 500 MG TAB PO SCH (08:34)
[2020-05-21 09:40] LABS: Hematocrit (blood only) 25.5 % (37-47); Hemoglobin 7.9 g/dL (12.0-16.0); Mean Corpuscular Hemoglobin 33.9 pg (25-34); Mean Corpuscular Volume 109.4 fL (80-100); Mean Platelet Volume 12.4 fL (7.4-10.4); Nucleated RBC # (auto) 0.05 K/uL (0-0); Nucleated RBC % (auto) 0.9 %; Platelet Count 118 K/uL (130-400); RDW Coefficient of Variation 23.5 % (11.5-14.5); RDW Standard Deviation 91.6 fL (36.4-46.3); Red Blood Count 2.33 M/uL (4.2-5.4); White Blood Count 5.99 K/uL (4.8-10.8)
[2020-05-21 09:41] LABS: Anisocytosis Present; Basophils # (auto) 0.04 K/uL (0-0.2); Basophils % (auto) 0.7 %; Eosinophils # (auto) 0.14 K/uL (0-0.5); Eosinophils % (auto) 2.3 %; Immature Granulocytes # (auto) 0.57 K/uL (0.00-0.02); Immature Granulocytes % (auto) 9.5 %; Lymphocytes # (auto) 1.08 K/uL (1.2-3.4); Macrocytosis Present; Monocytes # (auto) 0.54 K/uL (0.11-0.59); Neutrophils # (auto) 3.62 K/uL (1.4-6.5); Neutrophils % (auto) 60.5 %; Tear Drop Cells 1+; Toxic Granulation 3+
[2020-05-21 10:01] LABS: Albumin Level 2.5 gm/dl (3.4-5.0); BUN Creatinine Ratio 8.9 (10-20); Calcium 8.2 mg/dl (8.5-10.1); Creatinine Clr Calc Pharmacy 82.3 ml/min; Est GFR (Non-African American) 69.9; Potassium 3.8 mmol/L (3.5-5.1)
[2020-05-21 10:03] LABS: Albumin Globulin Ratio 0.9 (0.9-2); Bilirubin,Total 0.5 mg/dl (0.2-1); Globulin 2.9 gm/dl (2.5-4.0); Total Protein 5.4 gm/dl (6.4-8.2)
--- NOTE | 2020-05-21 10:29 | Discharge Summary ---
Date of Service May 21, 2020 Admission HPI Per Admitting Provider Marie Bee is a 69 year old female with metastatic colon cancer to her lungs who presented to the ER after a routine outpatient CT was suggestive of cholecystitis. She is currently taking chemotherapy although I do not have up to date notes regarding her current regimen available at time of admission. In hindsight she does report 2 weeks of burning indigestion chest pain for which she has been taking tums for the last week with associated increased belching and nausea and vomiting. Initially she had blamed this on chemotherapy. It is worse with eating spicy and tomato containing foods. In addition she has been having occasional RUQ pain, lasting 30 minutes at a time although she has not associated this pain with eating. She denies any constipation or diarrhea. No eating much over the past 2 weeks due to the nausea and vomiting. Mostly peaches and pears. She is taking her omeprazole 40mg PO daily. No recent EGD. No fevers of chills, cough, acute shortness of breath, loss of taste of smell/taste. Although she does not slowly worsening shortness of breath over the last month with associated fatigue and occasional lightheadedness while walking (last three weeks). Uses a cane because of this. Principal Diagnosis acute cholecystitis Discharge Exam Constitutional WD/WN, vitals as above Respiratory normal respiratory effort, lungs clear to auscultation Cardiovascular RRR, no murmur, no edema Gastrointestinal (Abdomen) Inspection/Auscultation: abdomen normal to inspection and normal bowel sounds; abdomen not distended Percussion/Palpation: abdomen soft; abdomen nontender Musculoskeletal no cyanosis or clubbing, extremities motor strength 5/5 Skin no rashes, warm and dry Neurologic moves all extremities and awake Discharge Data Allergies Allergy/AdvReac Type Severity Reaction Status Date / Time thiopental Allergy Unknown INCREASED Verified 05/07/20 11:52 BLEEDING WITH WISDOM TEETH SURG meperidine AdvReac Mild N/V Verified 05/07/20 11:52 morphine AdvReac Mild N/V Verified 05/07/20 11:52 oxaliplatin AdvReac Anaphylaxis Verified 05/08/20 00:41 Consultations 05/07/20 13:17 Consult General Surgery Stat 05/07/20 13:18 ED Decision to Admit Stat 05/09/20 08:15 Consult Oncology Routine 05/11/20 12:21 Consult Gastroenterology Routine Procedures Performed Operation Date: 05/16/20 10:30 Actual Procedures p Open Cholecystectomy(Not Applicable) - Michael Ibrahim MD s Laparoscopic to(Not Applicable) - Michael Ibrahim MD Ordered Studies 05/07/20 11:51 US gallbladder Stat 05/16/20 14:18 FL fluoroscopy <1hr Routine Hospital Course (1) Cholecystitis: Initially seen incidentally on outpatient imaging with CT abdomen/pelvis and then on WOLF here, but had been having intermittent RUQ pain and nausea as outpt HIDA scan also suggesting acute cholecystitis LFTs and bili normal preop for many days remains afebrile, no leukocytosis Her ANC was too low for surgery for many days due to chemo, but then was finally normal with 4 doses of Neupogen Now status post open cholecystectomy on 05/16--had long surgery with lots of adhesions and had free bile noted intrabdominally during surgery suggestive of perforation Path on gallbladder showed acute necrotizing cholecystitis -doing well post-op, ADÁN drain in place with serosang fluid (no bile), pulled 05/20 -Provided ceftriaxone and metronidazole since 05/07 on admission, will discontinue for home Repeat HIDA 05/19 without bile leak (2) Antineoplastic chemotherapy induced pancytopenia: Last dose of chemotherapy was on 04/29 Neutropenia resolved with neupogen x 4 doses Hemoglobin was really not that far off from her baseline prior to her last dose of chemotherapy Hemoglobin was improved up to 9.2 after 1 unit of PRBCs given on 05/11 for hemoglobin of 7.1 Has been stable for multiple days now around 7.5 post-op Remains hemodynamically stable Appreciate GI consultation-recommends colonoscopy as an outpatient for diarrhea and anemia, but has not had any melena or hematochezia Platelets were stable for many days in the 80s-90s, decreased after surgery to 50s likely from consumption, now improving Received 1 unit of platelets prior to surgery Consulted heme/onc as noted above - will follow up outpatient (3) GERD (gastroesophageal reflux disease): continue po PPI (4) COPD (chronic obstructive pulmonary disease): Continue usual maintenance inhalers. No acute exacerbation (5) Sleep apnea: Continue CPAP (6) Hypothyroid: TSH WNL in Nov Continue levothyroxine 137 mcg PO daily (7) Colon cancer metastasized to lung: Complex history since 2007 currently on chemotherapy. RUL nodule increased in size but others decreased-mixed/stable disease as per [facility] Heme/onc consulted as above (8) Port-A-Cath in place: noted (9) Diarrhea: C diff neg, likely due to antibiotics or secondary to acute cholecystitis Checked stool culture-with Jeremy-no need to treat Appreciate GI consultation -Diarrhea improved somewhat but still with a number of loose stools per day, no melena or joel blood -Continue colestipol -Continue imodium PRN -Plan for colonoscopy as an outpatient (10) Hypokalemia: Resolved likely secondary to poor p.o. intake and loose stools/GI losses (11) History of pulmonary embolus (PE): Continue home Eliquis (12) Depression: Continue sertraline (13) Hypomagnesemia: replaced and now improved (14) DVT prophylaxis: Apixaban SCDs Dispo: home health. Patient has been ambulating with walker around room without assistance, feels comfortable that she is steady enough on her feet for home and did not feel she needed a therapy evaluation. She uses a cane at home, declined script for walker. Total Time Total Time Spent Total Time Spent (In Minutes): greater than 30 minutes Discharge Plan Discharge Items Patient Disposition: Home - Home Health Services Reason For Visit: ACUTE CHOLECYSTITIS Discharge Diagnosis: Acute cholecystitis Activity: As commented below Non-emergency contact: Primary Care Provider Call non-emergency contact if: you have any medication questions Follow-up/Referrals: Raimundo Garcia MD [Primary Care Provider] - 05/28/20 9:00 am (Please, follow up at Dr. Garcia's office with his associate, Angie POWELL, on TuesdayMay 28 at 9:00 am. *If you need to change this appointment, call their office at [phone].) Malik Ramirez DO [Physician] - 05/22/20 1:50 pm (Please, follow up at Dr. Malik Ramirez's office with his associate, Gerri POWELL, TOMORROW, May 22 at 1:50 pm. *The office is located in the rear of this hospital. Park BEHIND the hospital in [address] and enter via [facility]. If you have any questions, call the office at [phone].) Diet: Heart Healthy Jayden Attending Provider Instructions: (1) Cholecystitis: Initially seen incidentally on outpatient imaging with CT abdomen/pelvis and then on WOLF here and confirmed on HIDA scan HIDA scan also suggesting acute cholecystitis Cholecystectomy was performed by Dr. Ibrahim on 05/16 A repeat HIDA scan on 05/19 was without bile leak (2) Antineoplastic chemotherapy induced pancytopenia: Last dose of chemotherapy was on 04/29 You were initially neutropenic on admission which resolved with neupogen x 4 doses You received 1 unit of platelets and one unit of blood during this admission (3) Colon cancer metastasized to lung: Please follow up with Dr. Leung to resume chemotherapy (4) Diarrhea: C diff test was negative, likely due to antibiotics or secondary to acute cholecystitis seems more likely. Your stool culture grew jeremy which is not necessary to treat. -Continue colestipol and Imodium as needed -Plan for colonoscopy as an outpatient - please follow up with your primary care provider to arrange this (5) History of PE I've discontinued your turmeric root supplement. Turmeric root has natural blood thinning properties and should probably be avoided when taking Eliquis especially with your low platelet count. You can discuss this further with your doctor when you follow up. It is fine to eat turmeric as a spice in your food or in tea, the concentrations of curcumin (the active compound in turmeric) is much less than in a supplement. And it's tasty! It's been a pleasure providing your care this hospital stay. I wish you well on your recovery. Jayden Shank Rander Provider Instructions: Post-Surgical ~Discharge Instructions Activity Recommendations: - lifting limitation: (10 pounds for 6 weeks), - exercise/sex/sports limit: (nonstrenuous until cleared by surgeon), - driving or machine use limit: (none for 1 week or until pain free), - Shower/bathe limit: (may shower) Diet: - Resume previous diet SPECIAL CARE INSTRUCTIONS: - May shower. Let water run over area and pat dry. - Surgical con will be removed in office next week. - Call the surgeon's office with any questions or concerns - - (ex. temperature higher than 101 degrees F, excessive bleeding or pain). MEDICATIONS: - Resume previous medications unless instructed otherwise by your surgeon. - Ibuprofen 600 mg every 6 hours as needed (take with food) - Tylenol 500 mg every 6 hours as needed - Tramadol every 4 hours as needed for moderate to severe pain. FOLLOW UP VISIT: - Follow-up visit has been scheduled for you in surgical office at [facility] on Tuesday05/27/2020 at 1:30 pm. Please call the office at number below if you have any questions or concerns. Office number Pending Studies at Discharge: No Stand-Alone Forms: My [facility] [employer] Beverages And Foods, Smoking Cessation Medications and DC Order Prescriptions: New tramadol 50 mg tablet 50 mg PO Q4H PRN (Reason: pain) Qty: 20 RF: 0 loperamide 2 mg Capsule 2 mg PO UD PRN (Reason: loose stool) Qty: 60 RF: 0 pantoprazole 40 mg Tablet,Delayed Release (Dr/Ec) 40 mg PO QAM Qty: 30 RF: 0 Continued potassium chloride 20 mEq tablet,ER particles/crystals 20 meq PO BID Qty: 60 RF: 1 beclomethasone dipropionate 80 mcg/actuation HFA aerosol breath activated 2 puffs Inhalation BID Qty: 34.8 RF: 1 (DME) nebulizers Misc See Rx Instructions .ROUTE .MEDSUPPLY Qty: 1 RF: 0 (DME) nebulizer accessories Kit See Rx Instructions .ROUTE .MEDSUPPLY Qty: 1 RF: 0 omeprazole 40 mg capsule,delayed release(DR/EC) 40 mg PO QAM Qty: 90 RF: 1 metoprolol tartrate 50 mg tablet 50 mg PO TID Qty: 90 RF: 2 magnesium oxide 400 mg magnesium capsule 800 mg PO BID RF: 0 (DME) Oxygen Home Liters Per Minute See Dose Instructions .ROUTE .MEDSUPPLY Qty: 1 RF: 0 apixaban 5 mg tablet 5 mg PO BID RF: 0 sertraline 50 mg tablet 50 mg PO HS RF: 0 simvastatin 40 mg tablet 40 mg PO QPM RF: 0 multivitamin Tablet 1 tab PO QAM RF: 0 albuterol sulfate 90 mcg/actuation HFA aerosol inhaler 2 puff Inhalation Q6 PRN (Reason: Shortness Of Breath Or Wheezing) RF: 0 [id number] C-Mn [Glucosamine Chondroitin MaxStr] 500-400 mg Capsule 1 cap PO BID RF: 0 aspirin 81 mg Tablet,Delayed Release (Dr/Ec) 81 mg PO HS RF: 0 ascorbic acid (vitamin C) [Vitamin C] 500 mg Tablet 500 mg PO BID RF: 0 cholecalciferol (vitamin D3) [Vitamin D3] 1,000 unit Tablet,Chewable 2,000 unit PO BID RF: 0 levothyroxine 137 mcg tablet 137 mcg PO QAM RF: 0 colestipol [Colestid] 1 gram tablet 1 g PO QDD RF: 0 ipratropium-albuterol 0.5 mg-3 mg(2.5 mg base)/3 mL solution for nebulization 3 ml INHALATION Q4H PRN (Reason: Shortness Of Breath Or Wheezing) RF: 0 magnesium amino acid chelate 100 mg Tablet 200 mg PO UD RF: 0 Discontinued turmeric root extract 500 mg Capsule 500 mg PO HS RF: 0 hydrocodone-acetaminophen [Elkins] 5-325 mg tablet 1 tab PO Q8H PRN (Reason: pain) Qty: 15 RF: 0 Discharge Orders: Discharge Order (Routine); Ordered 05/21/20 Ordered By: Kristin Kapadia Admission Data Admit Date/Time: 05/07/20 15:57 Attending Provider: Rikki Garay Admit Provider: Antonio Roberto Primary Care Provider: Raimundo Garcia Other Providers: Rikki Garay ; Michael Ibrahim ; Malik Ramirez V. ; Whitney Chandler Other Interventions: Discharge Summary Assessment (RN) Last Done: 05/21/20 10:51 DC Date/Time DO NOT enter until pt leaves facility: 05/21/20 12:00 Supervising Physician Co-Signing Physician Notes I supervised Kristin Kapadia NP on this patient's care. I examined the patient today independently of her. I discussed the plan of care with her with the plan being as written in her note except for any following changes/exceptions: None. Feeling well today. Surgical team has deemed her surgically ready for discharge. Will follow up with Dr. Ramirez and surgical team as outpatient. Coding Level of Care Code D/C Day Management >30 mins Diagnoses Cholecystitis K81.9 Antineoplastic chemotherapy induced pancytopenia D61.810; T45.1X5A GERD (gastroesophageal reflux disease) K21.9 Esophagitis presence: esophagitis presence not specified COPD (chronic obstructive pulmonary disease) J44.9 Sleep apnea G47.30 Hypothyroid E03.9 Hypothyroidism type: acquired Colon cancer metastasized to lung C18.9; C78.00 Port-A-Cath in place Z95.828 Diarrhea R19.7 Diarrhea type: unspecified type Hypokalemia E87.6 History of pulmonary embolus (PE) Z86.711 Depression F32.9 Hypomagnesemia E83.42 DVT prophylaxis Z29.9
== END 2020-05-21 12:00 | disposition home health service (06) | DRG 414 ==
LOC: ED 11:13 → 3N 15:57 → SUATTDRO 15:57 → 3N 16:14
PROC: M.CHOLE (2020-05-16 10:30)

== ENCOUNTER 2020-10-13 12:28 | Inpatient (IN) ==
[2020-10-13] MEDS ORDERED: SODIUM CHLORIDE 0.9% 1000ML 1,000 ML IV ONE (13:59)
--- NOTE | 2020-10-13 14:03 | Emergency Department Note ---
Impression & Plan Acute GI bleeding, Colon cancer metastasized to lung, Anemia, High serum chloride ED Provider Note NAME: MERCEDEZ Alford APGE AGE: 70 SEX: F : 1950 ARRIVES VIA: Walk-In INFORMANT: Patient ED PROVIDER(S): Alex Fernando DO CHIEF COMPLAINT: Gi bleed HPI: Patient is a 70-year-old female who presents the ER for bright red blood per rectum. She was seen and evaluated here yesterday for passing out. She had blood work drawn. She had 5 bright red blood bowel movements with a total of about 1/2 cup a piece. She does take Eliquis for PEs. She denies any headache or change in vision. No chest pain or shortness of breath. No nausea or vomiting. She denies any belly pain. History of colon cancer with metastatic disease to the lungs. She was sent in by hematology/oncology as she did have a drop in her hemoglobin since yesterday. ROS: See above HPI for pertinent positives & negatives. A total of 10 systems reviewed and were otherwise negative. PAST MEDICAL HISTORY:See Below PAST SURGICAL HISTORY:See Below FAMILY HISTORY:See Below SOCIAL HISTORY:See Below HOME MEDICATIONS:See Below ALLERGIES:See Below VITALS:See Below PHYSICAL EXAMINATION: GENERAL: Sitting up in bed, alert, well appearing, well nourished, no distress, non-toxic EYE EXAM: normal conjunctiva. OROPHARYNX: no exudate, no erythema, lips, buccal mucosa, and tongue normal and mucous membranes are moist NECK: supple, no nuchal rigidity, no adenopathy, non-tender LUNGS: Clear to auscultation. Normal chest wall mechanics HEART: no murmurs, S1 normal and S2 normal ABDOMEN: abdomen soft, non-tender, normo-active bowel sounds, no masses, no rebound or guarding. RECTAL: No external hemorrhoids. Blood around the rectum. UPPER EXTREMITIES: upper extremities are grossly normal. LOWER EXTREMITIES: No pitting edema. NEURO EXAM: Normal sensorium, cranial nerves II-XII grossly intact, normal speech, no gross weakness of arms, no gross weakness of legs. MEDICAL DECISION MAKING: Patient is a 70-year-old female who presents the ER for bright red blood per rectum. IV was established blood work was obtained. Labs showed no significant leukocytosis. Mild anemia 7.4 down from baseline of about 9. Blood work yesterday was 8. Mild thrombocytopenia at 98. INR 1.2. BMP with slightly elevated chloride. LFTs bilirubin troponin was negative. Lipase was normal. Patient was typed and screened. CT abdomen pelvis showed no acute pathology. She was given IV fluids. She was updated bedside. Discussed with the hospitalist for further evaluation due to GI bleed with rectal cancer and on anticoagulants. Triage Nursing notes reviewed. Prior medical records reviewed Vital Signs: reviewed and remarkable for tachy Differential diagnosis: Differential diagnosis includes etiologies such as diverticulitis, diverticulosis, AVM, coagulopathy, colitis, inflammatory bowel disease, malignancy, Jessica-Ware tear, esophagitis, peptic ulcer disease, variceal bleed, gastritis, epistaxis, fissure, hemorrhoids, as well as others were entertained. ER treatment provided: See below Diagnostics interpreted by me: ECG: Sinus rhythm rate of 96 Normal axis T WI in lead III No PVCs QTC 464 Cardiac Monitoring: An order was placed for continuous cardiac monitoring. The monitor shows a rate of 92 with sinus rhythm. Laboratory studies: As stated above and show below. Imaging studies: CT abdomen pelvis shows no acute pathology Consultation(s): Discussed with hospitalist for further evaluation ED COURSE: Procedures: none Critical Care: None Past Med/Surg History Medical History (Updated 10/13/20 @ 17:35 by Alex Fernando DO) Bacteremia Bilateral pulmonary embolism hx of 2012--reason for eliquis daily (had pneumonia right before and pt states she was not moving much) Candidiasis of intestine Chemotherapy adverse reaction Colon cancer metastasized to lung (09/18/08) "Adenocarcinoma of the colon with lung metastasis diagnosed in 2007 Status post right lobectomy 07/10/2008 Status post colonoscopy and biopsy 09/18/2008 revealing the colon lesion. Status post resection. This was followed by chemotherapy. Status post left upper lobe wedge resection 08/24/2011 due to metastasis Status post stereotactic radiation therapy in 2011 Completed chemotherapy in 2014 Status post wedge resection with Dr. navarrete 2015 Status post hypo-fractionated radiation therapy in 2015 PET/CT 08/24/2017 revealing metabolic activity of the right hilum. Status post completion of radiation therapy 10/24/2017 utilizing VMAT. PET/CT May 29, 2018 persistent uptake in the right paratracheal mass and suspicious changes for progression. Plan for systemic chemotherapy with irinotecan and Erbitux" On 11/02/17 11:11 Meaghan Alves wrote "Adenocarcinoma of the colon with lung metastasis diagnosed in 2007 Status post right lobectomy 07/10/2008 Status post colonoscopy and biopsy 09/18/2008 revealing the colon lesion. Status post resection. This was followed by chemotherapy. Status post left upper lobe wedge resection 08/24/2011 due to metastasis Status post stereotactic radiation therapy in 2011 Completed chemotherapy in 2014 Status post wedge resection with Dr. navarrete 2015 Status post hypo-fractionated radiation therapy in 2016 PET/CT 08/24/2017 revealing metabolic activity of the right hilum. Status post completion of radiation therapy 10/24/2017 utilizing VMAT." On 09/13/17 09:28 Meaghan Alves wrote "Adenocarcinoma of the colon with lung metastasis diagnosed in 2007 Status post right lobectomy 07/10/2008 Status post colonoscopy and biopsy 09/18/2008 revealing the colon lesion. Status post resection. This was followed by chemotherapy. Status post left upper lobe wedge resection 08/24/2011 due to metastasis Status post stereotactic radiation therapy in 2011 Completed chemotherapy in 2014 Status post wedge resection with Dr. navarrete 2015 Status post hypo-fractionated radiation therapy in 2016 PET/CT 08/24/2017 revealing metabolic activity of the right hilum." Depression Diverticulosis of colon DVT, lower extremity left leg, same time as PE Elevated lactic acid level History of anesthesia reaction difficulty waking at times as well as hx of waking up during sx (woke up during port placement) History of chemotherapy History of gastric ulcer History of immunocompromised state History of radiation therapy Hyperlipidemia Hypertension Hypophosphatemia Hypothyroidism Hypoxia Infection due to Port-A-Cath Morbid obesity with BMI of 40.0-44.9, adult Neutropenia On anticoagulant therapy eliquis daily On home oxygen therapy 2L N/C at hs Radiation pneumonitis Seizures due to metabolic disorder x2-- one d/t medication anaphylaxis, and pt states second d/t low magnesium in 09/2019 Septicemia due to coagulase-negative staphylococcal infection SIRS (systemic inflammatory response syndrome) Surgical History H/O: hysterectomy History of bilateral tubal ligation History of bladder suspension procedure History of bronchoscopy x2-3 History of cholecystectomy open 04/2020 History of colon surgery d/t colon cancer History of colonoscopy with polypectomy History of esophagogastroduodenoscopy (EGD) History of lobectomy of lung right upper lobe removed 06/[address] [facility] d/t colon cancer metastasis to lung History of lung surgery wedge resection of left lung d/t cancer History of radioactive iodine thyroid ablation History of removal of cyst off finger History of tonsillectomy History of vascular access device x2--A port in place right side of chest History of ventral hernia repair History of wisdom tooth extraction Family History Mother , early 80s of thyroid cancer Thyroid cancer Heart disease Family history of reaction to anesthesia at age 80, took 2 days to wake after thyroidectomy Father , age 81 of gangrene complications No problems noted. Uncle Colorectal cancer Sister Family history of diabetes mellitus Sister Family history of diabetes mellitus Other Family history non-contributory Denies family history of Ovarian cancer Prostate cancer Breast cancer Social History Smoking Status: Never smoker Second Hand Exposure: Yes (father smoked); Hx Alcohol Use: No Hx Substance Use: No Preferred Language: Persian Communication Ability: Effective Assessment Nurse Required: No Beliefs That Will Affect Care: None marital status: Current Living Situation: Spouse and Family Current Living Situation Comment: Lives with and son current occupational status: retired 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 drives. Seatbelt Use: always Assistive Devices: Glasses and Oxygen - at Night Allergies Allergies Allergy/AdvReac Type Severity Reaction Status Date / Time oxaliplatin Allergy Severe Anaphylaxis Verified 10/12/20 12:39 thiopental Allergy Intermediate INCREASED Verified 10/12/20 12:39 BLEEDING WITH WISDOM TEETH SURG meperidine AdvReac Mild N/V Verified 10/12/20 12:39 morphine AdvReac Mild N/V Verified 10/12/20 12:39 Home Meds Home Medications Medication Instructions Recorded Confirmed albuterol sulfate 2 puff INHALATION Q6 PRN 08/07/18 10/13/20 multivitamin 1 tab PO QAM 08/07/18 10/13/20 ascorbic acid (vitamin C) [Vitamin 500 mg PO BIDM 11/02/19 10/13/20 C] aspirin 81 mg PO HS 11/02/19 10/13/20 cholecalciferol (vitamin D3) 2,000 unit PO BID 11/02/19 10/13/20 [Vitamin D3] Vitamin E 180mg 180 mg PO QDD 10/12/20 10/13/20 colestipol [Colestid] 1 g PO QDD 10/12/20 10/13/20 cyanocobalamin (vitamin B-12) 1,000 mcg PO QDL 10/12/20 10/13/20 [Vitamin B-12] levothyroxine 150 mcg PO QAM 10/12/20 10/13/20 magnesium oxide 400 mg PO QAM 10/12/20 10/13/20 pyridoxine (vitamin B6) [Vitamin 100 mg PO QDL 10/12/20 10/13/20 B-6] simvastatin 40 mg PO HS 10/12/20 10/13/20 miscellaneous throat product 15 ml PO BID PRN 10/13/20 10/13/20 potassium gluconate 595 mg PO BID 10/13/20 10/13/20 Previous Rx's Medication Instructions Recorded apixaban 5 mg tablet 5 mg PO BID #180 tab 06/02/20 sertraline 50 mg tablet 50 mg PO HS #90 tab 06/02/20 beclomethasone dipropionate 80 1 inh INHALATION BID #34.8 g 07/14/20 mcg/actuation HFA breath activated aerosol omeprazole 40 mg capsule,delayed 40 mg PO QAM #90 cap 08/20/20 release metoprolol tartrate 50 mg tablet 50 mg PO TID #90 tab 09/08/20 ipratropium 0.5 mg-albuterol 3 mg 3 ml INHALATION Q4H PRN #540 ml 09/11/20 (2.5 mg base)/3 mL nebulization soln sod phos di, mono-K phos mono 1 tab PO BID #6 tab 10/12/20 [Phospha] Results & Data (ED) Vital Signs Vital Signs - 24 hr 10/13/20 13:14 10/13/20 13:46 10/13/20 14:00 Temperature 37.0 C Temperature Source Oral Pulse Rate 100 H Pulse Rate from SpO2 Sensor Respiratory Rate 18 Respiratory Effort / Characteristics Non-Labored Spontaneous Respiratory Depth Normal Respiratory Pattern Regular Blood Pressure 112/69 Blood Pressure Mean 83 Pulse Oximetry 100 Oxygen Delivery Method Room Air Room Air Room Air Sepsis Recent Fever Within 48 Hours No Sepsis New/Unexplained Change in Mental Status No Sepsis Action Taken by Nursing No Action Required 10/13/20 14:20 10/13/20 15:00 Temperature Temperature Source Pulse Rate 99 H 94 H Pulse Rate from SpO2 Sensor 101 H 95 H Respiratory Rate 25 H 23 Respiratory Effort / Characteristics Respiratory Depth Respiratory Pattern Blood Pressure 122/78 144/75 H Blood Pressure Mean 99 99 Pulse Oximetry 95 95 Oxygen Delivery Method Room Air Room Air Sepsis Recent Fever Within 48 Hours Sepsis New/Unexplained Change in Mental Status Sepsis Action Taken by Nursing Laboratory Data Result diagrams: 10/13/20 14:17 10/13/20 14:17 Lab Results 10/13/20 10/13/20 10/13/20 Range/Units 14:17 14:17 14:17 WBC 9.50 (4.8-10.8) K/uL RBC 1.96 L (4.2-5.4) M/uL Hgb 7.4 L (12.0-16.0) g/dL Hct 23.2 L (37-47) % MCV 118.4 H (80-100) fL MCH 37.8 H (25-34) pg MCHC 31.9 L (32-36) g/dL RDW Std Deviation 69.5 H (36.4-46.3) fL RDW Coeff of Marcell 16.8 H (11.5-14.5) % Plt Count 98 L (130-400) K/uL MPV 11.1 H (7.4-10.4) fL Absolute Nucleated RBC 0.29 H (0-0) K/uL Nucleated RBC % (auto) 3.0 % Neutrophils % (Manual) 71.9 % Lymphocytes % (Manual) 14.5 % Monocytes % (Manual) 7.3 % Eosinophils % (Manual) 1.8 % Basophils % (Manual) 0.9 % Metamyelocytes % (Man) 1.8 % Myelocytes % (Man) 1.8 % Neutrophils # (Manual) 6.83 H (1.4-6.5) K/uL Total Absolute Neuts 6.83 H (1.4-6.5) K/uL Lymphocytes # (Manual) 1.38 (1.2-3.4) K/uL Total Abs Lymphocytes 1.38 (1.2-3.4) K/uL Monocytes # (Manual) 0.69 H (0.11-0.59) K/uL Eosinophils # (Manual) 0.17 (0-0.5) K/uL Basophils # (Manual) 0.09 (0-0.2) K/uL Metamyelocytes # (Man) 0.17 H (0-0) K/uL Myelocytes # (Manual) 0.17 H (0-0) K/uL Hypogranular Neuts 1+ Dohle Bodies 1+ Platelet Estimate Decreased L (Normal) Polychromasia 1+ Macrocytosis Present Tear Drop Cells 1+ PT 12.6 H (9.0-12.0) Seconds INR 1.2 H (0.9-1.1) APTT 33.9 H (21.0-31.0) Seconds PTT Ratio 1.2 Sodium (136-145) mmol/L Potassium (3.5-5.1) mmol/L Chloride (98-107) mmol/L Carbon Dioxide (21-32) mmol/L Anion Gap (3-11) BUN (7-18) mg/dl Creatinine (0.6-1.2) mg/dl Est Cr Clr Drug Dosing Est GFR ( Amer) Est GFR (Non-Af Amer) BUN/Creatinine Ratio (10-20) Glucose (70-99) mg/dl Calcium (8.5-10.1) mg/dl Total Bilirubin (0.2-1) mg/dl AST (15-37) U/L ALT (12-78) U/L Alkaline Phosphatase (45-117) U/L Troponin I (0-0.045) ng/ml Total Protein (6.4-8.2) gm/dl Albumin (3.4-5.0) gm/dl Globulin (2.5-4.0) gm/dl Albumin/Globulin Ratio (0.9-2) Lipase (73-393) U/L Blood Type O Positive Antibody Screen NEGATIVE Crossmatch See Detail 10/13/20 Range/Units 14:17 WBC (4.8-10.8) K/uL RBC (4.2-5.4) M/uL Hgb (12.0-16.0) g/dL Hct (37-47) % MCV (80-100) fL MCH (25-34) pg MCHC (32-36) g/dL RDW Std Deviation (36.4-46.3) fL RDW Coeff of Marcell (11.5-14.5) % Plt Count (130-400) K/uL MPV (7.4-10.4) fL Absolute Nucleated RBC (0-0) K/uL Nucleated RBC % (auto) % Neutrophils % (Manual) % Lymphocytes % (Manual) % Monocytes % (Manual) % Eosinophils % (Manual) % Basophils % (Manual) % Metamyelocytes % (Man) % Myelocytes % (Man) % Neutrophils # (Manual) (1.4-6.5) K/uL Total Absolute Neuts (1.4-6.5) K/uL Lymphocytes # (Manual) (1.2-3.4) K/uL Total Abs Lymphocytes (1.2-3.4) K/uL Monocytes # (Manual) (0.11-0.59) K/uL Eosinophils # (Manual) (0-0.5) K/uL Basophils # (Manual) (0-0.2) K/uL Metamyelocytes # (Man) (0-0) K/uL Myelocytes # (Manual) (0-0) K/uL Hypogranular Neuts Dohle Bodies Platelet Estimate (Normal) Polychromasia Macrocytosis Tear Drop Cells PT (9.0-12.0) Seconds INR (0.9-1.1) APTT (21.0-31.0) Seconds PTT Ratio Sodium 140 (136-145) mmol/L Potassium 3.7 (3.5-5.1) mmol/L Chloride 108 H (98-107) mmol/L Carbon Dioxide 26 (21-32) mmol/L Anion Gap 7.0 (3-11) BUN 15 (7-18) mg/dl Creatinine 1.24 H (0.6-1.2) mg/dl Est Cr Clr Drug Dosing Not Reportable Est GFR ( Amer) 51.7 Est GFR (Non-Af Amer) 44.6 BUN/Creatinine Ratio 12.3 (10-20) Glucose 97 (70-99) mg/dl Calcium 8.7 (8.5-10.1) mg/dl Total Bilirubin 0.5 (0.2-1) mg/dl AST 21 (15-37) U/L ALT 16 (12-78) U/L Alkaline Phosphatase 101 (45-117) U/L Troponin I < 0.015 (0-0.045) ng/ml Total Protein 6.0 L (6.4-8.2) gm/dl Albumin 3.1 L (3.4-5.0) gm/dl Globulin 2.9 (2.5-4.0) gm/dl Albumin/Globulin Ratio 1.1 (0.9-2) Lipase 53 L (73-393) U/L Blood Type Antibody Screen Crossmatch Administered Medications Discontinued Medications Sodium Chloride (Nss 1000ml) 1,000 mls @ 999 mls/hr IV .Q1H1M ONE Stop: 10/13/20 14:59 Last Infusion: 10/13/20 17:38 Dose: 0 mls/hr Documented by: [id number] Admin: 10/13/20 14:24 Dose: 999 mls/hr Documented by: [id number] Ioversol (Ioversol 100ml) 94 ml IV ONCE ONE Stop: 10/13/20 15:42 Last Admin: 10/13/20 15:42 Dose: 94 ml Documented by: [id number] Discharge Plan Visit Data Chief Complaint: Rectal Bleed Stated Complaint: rectal bleeding ED Provider: Alex Fernando Discharge Problem: Acute GI bleeding, Colon cancer metastasized to lung, Anemia, High serum chloride Forms Stand Alone Forms: My Soon[facility] Prescriptions Prescriptions: No Action apixaban 5 mg tablet 5 mg PO BID Qty: 180 RF: 3 sertraline 50 mg tablet 50 mg PO HS Qty: 90 RF: 3 beclomethasone dipropionate 80 mcg/actuation HFA aerosol breath activated 1 inh Inhalation BID Qty: 34.8 RF: 1 omeprazole 40 mg capsule,delayed release(DR/EC) 40 mg PO QAM Qty: 90 RF: 3 metoprolol tartrate 50 mg tablet 50 mg PO TID Qty: 90 RF: 3 ipratropium-albuterol 0.5 mg-3 mg(2.5 mg base)/3 mL solution for nebulization 3 ml INHALATION Q4H PRN (Reason: Shortness Of Breath Or Wheezing) Qty: 540 RF: 5 multivitamin Tablet 1 tab PO QAM RF: 0 albuterol sulfate 90 mcg/actuation HFA aerosol inhaler 2 puff Inhalation Q6 PRN (Reason: Shortness Of Breath Or Wheezing) RF: 0 magnesium oxide 400 mg magnesium Tablet 400 mg PO QAM RF: 0 simvastatin 40 mg tablet 40 mg PO HS RF: 0 colestipol [Colestid] 1 gram tablet 1 g PO QDD RF: 0 levothyroxine 150 mcg capsule 150 mcg PO QAM RF: 0 cyanocobalamin (vitamin B-12) [Vitamin B-12] 1,000 mcg Tablet 1,000 mcg PO QDL RF: 0 pyridoxine (vitamin B6) [Vitamin B-6] 100 mg Tablet 100 mg PO QDL RF: 0 Vitamin E 180mg 180 mg PO QDD RF: 0 Phospha 250 Neutral 250 mg tablet 1 tab PO BID Qty: 6 RF: 0 aspirin 81 mg Tablet,Delayed Release (Dr/Ec) 81 mg PO HS RF: 0 ascorbic acid (vitamin C) [Vitamin C] 500 mg Tablet 500 mg PO BIDM RF: 0 cholecalciferol (vitamin D3) [Vitamin D3] 1,000 unit Tablet,Chewable 2,000 unit PO BID RF: 0 potassium gluconate 595 mg (99 mg) Tablet 595 mg PO BID RF: 0 miscellaneous throat product liquid 15 ml PO BID PRN (Reason: Mouth Irritation) RF: 0 Discharge Problem: Anemia Qualifiers: Anemia type: unspecified type Qualified Code(s): D64.9 - Anemia, unspecified
[2020-10-13 14:52] LABS: Alanine Aminotransferase 16 U/L (12-78); Albumin Level 3.1 gm/dl (3.4-5.0); Aspartate Aminotransferase 21 U/L (15-37); BUN Creatinine Ratio 12.3 (10-20); Blood Urea Nitrogen 15 mg/dl (7-18); Calcium 8.7 mg/dl (8.5-10.1); Carbon Dioxide 26 mmol/L (21-32); Chloride 108 mmol/L (98-107); Est GFR (African American) 51.7; Est GFR (Non-African American) 44.6; Glucose 97 mg/dl (70-99); INR 1.2 (0.9-1.1); Lipase 53 U/L (73-393); Partial Thromboplastin Ratio 1.2; Partial Thromboplastin Time 33.9 Seconds (21.0-31.0); Potassium 3.7 mmol/L (3.5-5.1); Prothrombin Time 12.6 Seconds (9.0-12.0); Sodium 140 mmol/L (136-145)
[2020-10-13 14:57] LABS: Albumin Globulin Ratio 1.1 (0.9-2); Alkaline Phosphatase 101 U/L (45-117); Bilirubin,Total 0.5 mg/dl (0.2-1); Globulin 2.9 gm/dl (2.5-4.0); Troponin I < 0.015 ng/ml (0-0.045)
[2020-10-13 15:02] LABS: Hematocrit (blood only) 23.2 % (37-47); Hemoglobin 7.4 g/dL (12.0-16.0); Mean Corpuscular Hemoglobin 37.8 pg (25-34); Mean Corpuscular Hgb Conc 31.9 g/dL (32-36); Mean Corpuscular Volume 118.4 fL (80-100); Nucleated RBC # (auto) 0.29 K/uL (0-0); RDW Coefficient of Variation 16.8 % (11.5-14.5); RDW Standard Deviation 69.5 fL (36.4-46.3); Red Blood Count 1.96 M/uL (4.2-5.4)
[2020-10-13 15:24] LABS: ALC (manual) 1.38 K/uL (1.2-3.4); ANC (manual) 6.83 K/uL (1.4-6.5); Basophils # (manual) 0.09 K/uL (0-0.2); Basophils % (manual) 0.9 %; Dohle Bodies 1+; Eosinophils # (manual) 0.17 K/uL (0-0.5); Eosinophils % (manual) 1.8 %; Hypogranular Neutrophils 1+; Lymphocytes # (manual) 1.38 K/uL (1.2-3.4); Lymphocytes % (manual) 14.5 %; Macrocytosis Present; Mean Platelet Volume 11.1 fL (7.4-10.4); Metamyelocytes # (manual) 0.17 K/uL (0-0); Metamyelocytes % (manual) 1.8 %; Monocytes # (manual) 0.69 K/uL (0.11-0.59); Monocytes % (manual) 7.3 %; Myelocytes # (manual) 0.17 K/uL (0-0); Myelocytes % (manual) 1.8 %; Neutrophils # (manual) 6.83 K/uL (1.4-6.5); Neutrophils % (manual) 71.9 %; Platelet Count 98 K/uL (130-400); Platelet Estimate Decreased (Normal); Polychromasia 1+; Tear Drop Cells 1+
[2020-10-13] MEDS ORDERED: IOVERSOL 100ml IV ONE (15:41)
--- NOTE | 2020-10-13 15:47 | Electrocardiogram Report ---
Test Reason : Blood Pressure : / mmHG Vent. Rate : 097 BPM Atrial Rate : 097 BPM P-R Int : 178 ms QRS Dur : 088 ms QT Int : 366 ms P-R-T Axes : 007 046 025 degrees QTc Int : 464 ms Poor data quality, interpretation may be adversely affected Normal sinus rhythm Normal ECG When compared with ECG of 12-OCT-2020 09:37, No significant change was found Confirmed by Garrett Phelps ([id number]) on 10/13/2020 3:47:12 PM Referred By: Malik Ramirez Confirmed By:Garrett Phelps
--- NOTE | 2020-10-13 16:01 | CT Scan Report ---
ABDOMEN AND PELVIS CT WITH IV CONTRAST CT DOSE: 1118.87 mGycm HISTORY: Gi bleed wcolon cancer previous resection TECHNIQUE: Multiaxial CT images of the abdomen and pelvis were performed following the use of intrave nous contrast. A dose lowering technique was utilized adhering to the principles of ALARA. COMPARISON STUDY: Abdomen and pelvis CT 05/07/2020. FINDINGS: Consolidation within the right medial lung remains unchanged. There are stable chronic volu me loss within the right hemithorax. A catheter terminates in the right atrium and may extend to the right ventricle through a patent foramen ovale. No pneumoperitoneum. No pneumatosis. No suspicious ly tic or blastic osseous lesions. Cholecystectomy. No hepatic or splenic masses. A few calcified granul omas noted within the spleen. The adrenal glands and pancreas are unremarkable. Bilateral peripelvic renal cysts are again noted. No hydronephrosis. No retroperitoneal lymphadenopathy. Normal caliber ab dominal aorta. Prior mesh repair of a ventral hernia. The bladder is unremarkable. Small fat-containi ng left inguinal hernia. Prior hysterectomy. No pelvic free fluid. No bowel wall thickening or obstru ction. Submucosal fat within the proximal colon. This is considered to be chronic. A few colonic dive rticula. No evidence for acute diverticulitis. IMPRESSION: 1. No bowel wall thickening or obstruction. 2. Additional stable chronic and postoperative changes as described above. ACT 112: Negative or not required by law. Electronically signed by: Norberto Pandya M.D. 10/13/2020 4:00 PM
--- NOTE | 2020-10-13 17:50 | History & Physical Report ---
Date of Service October 13, 2020 Assessment & Plan (1) Acute GI bleeding: - Acute blood loss with suspected lower GI bleed unspecified. HGB decrease from baseline 9 to 7.3. - Transfuse 2 units PRBC. - Blood consent to be obtained by attending - Reassess CBC 6 hours after transfusion - GI consulted, bowel prep until clear starting tonight-discussed with Dr. Marr - Hold Eliquis (last dose this morning) and ASA. No need to reverse. - Follow Fibrinogen - 18 G PIV and Mediport for access - Hold Metoprolol (2) History of colon cancer: - As noted in HPI: Continue therapy following acute LGIB - HEME-ONC consulted, appreciate their recommendations (3) Asthma: -Also with chronic restrictive disease. - Continue home medications - Patient reports good control no admissions for exacerbations in recent history (4) History of pulmonary embolus (PE): - History of such in 2007, on prolonged therapy with history of cancer, will hold eliquis until acute blood loss is controlled. - Fibrinogen now (5) Chronic diastolic congestive heart failure: - HFpEF: Hold Metoprolol for tonight. Restart pending results of colonoscopy and hemodynamics. (6) Hypothyroid: TSH 4.6 Continue home levothyroxine 150 mcg daily Follow-up with PCP (7) Hypokalemia: Potassium levels here are normal Holding home potassium while n.p.o. Follow BMP (8) Anemia: Acute blood loss anemia on top of chronic anemia secondary to antineoplastic therapy Hemoglobin dropped down to 7.4 from baseline of 9-10 due to rectal bleeding Transfusing PRBCs as above Holding home Eliquis (9) HLD (hyperlipidemia): Continue simvastatin (10) GERD (gastroesophageal reflux disease): Continue PPI (11) Depression: Stable Continue home sertraline (12) Renal insufficiency: - Remains stable: - Maintain MAPS >65 - Avoid nephrotoxic medications and renally reduce. - Gently hydrate with LR following PRB transfusion (13) Essential hypertension: Holding home metoprolol for acute blood loss anemia Restart when able to (14) DVT prophylaxis: DVT PPx: teds, no chemical anticoagulation in the setting of acute GI bleed CODE: Conditional code Dispo: From home, likely to remain in the hospital x 2 days History of Present Illness Chief Complaint: Blood in stool Primary Care Provider: Bacilio Garcia MD Marie Portillor is a 69 year old female with metastatic colorectal cancer 2007 (distal transverse and proximal descending colectomy with re-anastomosis) to her lungs (RLL wedge resection 2007 and LINA VATS wedge excision 2010). Other past medical history includes history of restrictive lung disease, COPD, VU, DVT/PE in 2007, on Eliquis, HTN, HLD, anemia, GERD, obesity with BMI of 37.6, hypothyroidism, GERD, anxiety and depression, osteopenia. Patient is currently receiving 5FU and Avastin chemotherapy, she was to receive therapy today however was cancelled secondary to how low HGB level. Patient complained of feeling dizzy and light-headed since Tuesday and came to the EMD last PM. HGB at that time was 8.3 (Baseline is upper 9 and low 10) without reports of bleeding. She went home and had BM x2 with joel blood and blood on toilet paper. She reports no clots in toilet or on toilet paper. She did feel dizzy this morning but once she got up and moving around felt better. Her HGB in EMD was 7.3 with Platelets of 98. Patient is on Eliquis for history of PE and last dose is Oct 13, 2020 at 0600. Patient also took Metoprolol this morning and ASA. Recently had colonoscopy performed on Jul 05, 2011 with normal rectal exams and small internal hemorrhoids per report. Patient was typed and crossed in the EMD and PRBC transfusion of leukocyte reduced blood started. Patient will be admitted to PCU telemetry, bowel prepped and GI consulted for possible colonoscopy in the AM. Of note patient did have a fall last week while walking her dog and has multiple areas of ecchymosis. Allergies Allergy/AdvReac Type Severity Reaction Status Date / Time oxaliplatin Allergy Severe Anaphylaxis Verified 10/12/20 12:39 thiopental Allergy Intermediate INCREASED Verified 10/12/20 12:39 BLEEDING WITH WISDOM TEETH SURG meperidine AdvReac Mild N/V Verified 10/12/20 12:39 morphine AdvReac Mild N/V Verified 10/12/20 12:39 Home Medications Medication Instructions Recorded Confirmed Type albuterol sulfate 2 puff INHALATION Q6 PRN 08/07/18 10/13/20 History multivitamin 1 tab PO QAM 08/07/18 10/13/20 History ascorbic acid (vitamin C) [Vitamin 500 mg PO BIDM 11/02/19 10/13/20 History C] aspirin 81 mg PO HS 11/02/19 10/13/20 History cholecalciferol (vitamin D3) 2,000 unit PO BID 11/02/19 10/13/20 History [Vitamin D3] apixaban 5 mg tablet 5 mg PO BID #180 tab 06/02/20 10/13/20 Rx sertraline 50 mg tablet 50 mg PO HS #90 tab 06/02/20 10/13/20 Rx beclomethasone dipropionate 80 1 inh INHALATION BID #34.8 g 07/14/20 10/13/20 Rx mcg/actuation HFA breath activated aerosol omeprazole 40 mg capsule,delayed 40 mg PO QAM #90 cap 08/20/20 10/13/20 Rx release metoprolol tartrate 50 mg tablet 50 mg PO TID #90 tab 09/08/20 10/13/20 Rx ipratropium 0.5 mg-albuterol 3 mg 3 ml INHALATION Q4H PRN #540 ml 09/11/20 10/13/20 Rx (2.5 mg base)/3 mL nebulization soln Vitamin E 180mg 180 mg PO QDD 10/12/20 10/13/20 History colestipol [Colestid] 1 g PO QDD 10/12/20 10/13/20 History cyanocobalamin (vitamin B-12) 1,000 mcg PO QDL 10/12/20 10/13/20 History [Vitamin B-12] levothyroxine 150 mcg PO QAM 10/12/20 10/13/20 History magnesium oxide 400 mg PO QAM 10/12/20 10/13/20 History pyridoxine (vitamin B6) [Vitamin 100 mg PO QDL 10/12/20 10/13/20 History B-6] simvastatin 40 mg PO HS 10/12/20 10/13/20 History sod phos di, mono-K phos mono 1 tab PO BID #6 tab 10/12/20 10/13/20 Rx [Phospha] miscellaneous throat product 15 ml PO BID PRN 10/13/20 10/13/20 History potassium gluconate 595 mg PO BID 10/13/20 10/13/20 History Past Med/Surg History Medical History Bacteremia Bilateral pulmonary embolism hx of 2012--reason for eliquis daily (had pneumonia right before and pt states she was not moving much) Candidiasis of intestine Chemotherapy adverse reaction Colon cancer metastasized to lung (09/18/08) "Adenocarcinoma of the colon with lung metastasis diagnosed in 2007 Status post right lobectomy 07/10/2008 Status post colonoscopy and biopsy 09/18/2008 revealing the colon lesion. Status post resection. This was followed by chemotherapy. Status post left upper lobe wedge resection 08/24/2011 due to metastasis Status post stereotactic radiation therapy in 2011 Completed chemotherapy in 2014 Status post wedge resection with Dr. navarrete 2015 Status post hypo-fractionated radiation therapy in 2015 PET/CT 08/24/2017 revealing metabolic activity of the right hilum. Status post completion of radiation therapy 10/24/2017 utilizing VMAT. PET/CT May 29, 2018 persistent uptake in the right paratracheal mass and suspicious changes for progression. Plan for systemic chemotherapy with irinotecan and Erbitux" On 11/02/17 11:11 Meaghan Alves wrote "Adenocarcinoma of the colon with lung metastasis diagnosed in 2007 Status post right lobectomy 07/10/2008 Status post colonoscopy and biopsy 09/18/2008 revealing the colon lesion. Status post resection. This was followed by chemotherapy. Status post left upper lobe wedge resection 08/24/2011 due to metastasis Status post stereotactic radiation therapy in 2011 Completed chemotherapy in 2014 Status post wedge resection with Dr. navarrete 2015 Status post hypo-fractionated radiation therapy in 2016 PET/CT 08/24/2017 revealing metabolic activity of the right hilum. Status post completion of radiation therapy 10/24/2017 utilizing VMAT." On 09/13/17 09:28 Meaghan Alves wrote "Adenocarcinoma of the colon with lung metastasis diagnosed in 2007 Status post right lobectomy 07/10/2008 Status post colonoscopy and biopsy 09/18/2008 revealing the colon lesion. Status post resection. This was followed by chemotherapy. Status post left upper lobe wedge resection 08/24/2011 due to metastasis Status post stereotactic radiation therapy in 2011 Completed chemotherapy in 2014 Status post wedge resection with Dr. navarrete 2016 Status post hypo-fractionated radiation therapy in 2015 PET/CT 08/24/2017 revealing metabolic activity of the right hilum." Depression Diverticulosis of colon DVT, lower extremity left leg, same time as PE Elevated lactic acid level History of anesthesia reaction difficulty waking at times as well as hx of waking up during sx (woke up during port placement) History of chemotherapy History of gastric ulcer History of immunocompromised state History of radiation therapy Hyperlipidemia Hypertension Hypothyroidism Hypoxia Infection due to Port-A-Cath Morbid obesity with BMI of 40.0-44.9, adult Neutropenia On anticoagulant therapy eliquis daily On home oxygen therapy 2L N/C at hs Radiation pneumonitis Seizures due to metabolic disorder x2-- one d/t medication anaphylaxis, and pt states second d/t low magnesium in 09/2019 Septicemia due to coagulase-negative staphylococcal infection Surgical History H/O: hysterectomy History of bilateral tubal ligation History of bladder suspension procedure History of bronchoscopy x2-3 History of cholecystectomy open 04/2020 History of colon surgery d/t colon cancer History of colonoscopy with polypectomy History of esophagogastroduodenoscopy (EGD) History of lobectomy of lung right upper lobe removed 06/2008 @ [facility] d/t colon cancer metastasis to lung History of lung surgery wedge resection of left lung d/t cancer History of radioactive iodine thyroid ablation History of removal of cyst off finger History of tonsillectomy History of vascular access device x2--A port in place right side of chest History of ventral hernia repair History of wisdom tooth extraction Family History Mother , early 80s of thyroid cancer Thyroid cancer Heart disease Family history of reaction to anesthesia at age 80, took 2 days to wake after thyroidectomy Father , age 81 of gangrene complications No problems noted. Uncle Colorectal cancer Sister Family history of diabetes mellitus Sister Family history of diabetes mellitus Other Family history non-contributory Denies family history of Ovarian cancer Prostate cancer Breast cancer Social History Smoking Status: Never smoker Second Hand Exposure: Yes (father smoked); Hx Alcohol Use: No Hx Substance Use: No Preferred Language: Marshallese Communication Ability: Effective Dip Filler Required: No Beliefs That Will Affect Care: None marital status: Current Living Situation: Spouse Current Living Situation Comment: Lives with and son current occupational status: retired 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 drives. Seatbelt Use: always Assistive Devices: Glasses Review of Systems Review of Systems: Constitutional: No fever, sweats or chills Eyes: No diplopia, no worsening or blurred vision ENT: normal hearing, no trouble swallowing Respiratory: No cough, sputum, dyspnea at rest or on exertion Cardiovascular: No chest pain, tightness or palpitations, no increase in leg swelling Abdomen/GI: +BRBPR, No pain, nausea, vomiting, diarrhea or constipation Musculoskeletal: No joint pain, calf pain, swelling Neurologic: No weakness, numbness/tingling, or balance problems Psychiatric: No anxiety or depression Skin: +echymosis to face, bilateral knees, shins, chest. No rash or itch Physical Exam Physical Exam: General: awake, alert, no apparent distress Head: Normocephalic, old ecchymosis to right temporal orbital, no blurred vision ENT: PERRL, EOMI, no pharyngeal exudate, mucous membranes moist Chest: Clear to auscultation, on room air, no adventitious breath sounds Cardiac: Regular rate and rhythm, no murmur, no JVD, normal peripheral pulses, good capillary refill, skin warm, +1 edema to bilateral lower extremities. Abdominal: NABS x 4 quadrants, soft, nondistended, nontender to palpation, no rebound or guarding Extremities: Normal inspection, no peripheral edema or erythema, calfs nontender to palpation, + bilateral ecchymosis to knees, shins, upper outer chest and arms. Psych: Normal mood and affect Neuro: AAO x 3, strength intact bilaterally and rated 5/5, no motor deficits, speech is clear, no peripheral sensory deficits Results & Data Results & Data ([facility]) Vital Signs (Past 12 Hours) Vital Signs Temp Pulse Resp BP Pulse Ox 10/13/20 15:00 94 H 23 144/75 H 95 10/13/20 14:20 99 H 25 H 122/78 95 10/13/20 13:14 37.0 C 100 H 18 112/69 100 EKG: Normal sinus rhythm Normal ECG When compared with ECG of 12-OCT-2020 09:37, No significant change was found ABDOMEN AND PELVIS CT WITH IV CONTRAST FINDINGS: Consolidation within the right medial lung remains unchanged. There are stable chronic volume loss within the right hemithorax. A catheter terminates in the right atrium and may extend to the right ventricle through a patent foramen ovale. No pneumoperitoneum. No pneumatosis. No suspicious lytic or blastic osseous lesions. Cholecystectomy. No hepatic or splenic masses. A few calcified granulomas noted within the spleen. The adrenal glands and pancreas are unremarkable. Bilateral peripelvic renal cysts are again noted. No hydronephrosis. No retroperitoneal lymphadenopathy. Normal caliber abdominal aorta. Prior mesh repair of a ventral hernia. The bladder is unremarkable. Small fat-containing left inguinal hernia. Prior hysterectomy. No pelvic free fluid. No bowel wall thickening or obstruction. Submucosal fat within the proximal col on. This is considered to be chronic. A few colonic diverticula. No evidence for acute diverticulitis. IMPRESSION: 1. No bowel wall thickening or obstruction. 2. Additional stable chronic and postoperative changes as described above. OCT 12 CXR: FINDINGS: Cardiomediastinal and hilar silhouettes are unchanged. There is persistent masslike opacity of the right perihilar distribution with surgical clips an surgical suture material suggestive of postradiation changes with pulmonary resection. Chronic right lung volume loss with right hemidiaphragmatic elevation. Right upper lobe pulmonary nodule is better seen on comparison chest CT. Right IJ [id number] catheter is unchanged. No pneumothorax or overt pulmonary edema. No large pleural effusion. Bones appear grossly intact. IMPRESSION: Chronic findings as above without acute process. OCT 12 CT head/brain wo con: CLINICAL HISTORY: 70 years-old Female with fall 3 days ago, head strike Eliquis. Acute head injury status post fall FINDINGS: No acute intracranial hemorrhage, midline shift, intracranial mass, hydrocephalus, territorial ischemia or abnormal extra-axial collection. Age-r elated involutional changes. Cerebral vascular calcifications. The calvarium is intact. Mild mucosal thickening of the ethmoid air cells. Mastoid air cells are clear. IMPRESSION: No acute intracranial abnormality. OCT 12 CT facial bones w/o con: CLINICAL HISTORY: 70 years-old Female presenting with fall 3 days ago, head strike Eliquis. Acute head and face trauma status post fall. Right facial bruising COMPARISON STUDY: Head CT of same day TECHNIQUE: High-resolution CT scan of the facial bones is performed. Images are reviewed in the axial, sagittal, and coronal planes. IV contrast was not administered for this examination. A dose lowering technique was utilized adhering to the principles of ALARA. CT DOSE: 768.59 mGy.cm FINDINGS: No significant subcutaneous edema or hematoma. The orbits and globes appear unremarkable. No opaque foreign body. Mild streak artifact from dental amalgam hardware. No acute process of the imaged intracranial structures. Dental amalgam hardware noted. The imaged cervical spine appears intact. Mastoid air cells and middle ear cavities are clear. There is mild mucosal thickening of the inferior maxillary sinuses. Frontal sinuses are clear. Mild to moderate mucosal thickening of the ethmoid air cells with minimal mucosal thickening of the sphenoid sinuses. The zygomatic arches, pterygoid plates, maxillary glasgow, nasal bone, maxillary glasgow, orbits and mandible appear intact. IMPRESSION: 1. No acute facial bone fracture. 2. Paranasal sinus disease as above. Code Status & VTE Plan Code Status Conditional Code: DNR/DNI, Intubate for airway support/procedures not for cardiac arrest. VTE Prophylaxis Plan VTE Prophylaxis will be ordered: Yes Reason for no VTE drug order: Contraindicated (Active GI Bleed with decrease in HGB to 7.3) Supervising Physician Co-Signing Physician Notes JULIA Supervision Note: I personally saw and examined the patient. I verified all florian points and agree with JULIA Oconnell with the following exceptions and/or additions: Patient here with acute rectal bleeding worsened in the setting of taking Eliquis. Had a colonoscopy within the last year that only showed internal hemorrhoids. This could be hemorrhoidal bleed versus diverticular bleed. With acute blood loss anemia. Hemodynamically stable but hemoglobin is quite low and she is at risk for continued bleeding. History and ROS reviewed otherwise as above Vitals reviewed Gen: AAOx3, NAD, obese HEENT: Anicteric sclerae, EOMI, with right periorbital ecchymosis from recent fall CV: RRR no mgr nl S1S2 Pulm: CTAB no wcr Abd: +BS soft NT ND no masses or hernias, rectal exam deferred Ext: No edema, 2+ DP pulses Skin: No rashes, warm/dry Neuro: Full strength throughout 70-year-old female here with longstanding colon cancer with mets to the lung, here with rectal bleeding in the setting of anticoagulant, also with acute blood loss anemia. -Transfuse 2 units PRBCs Serial H&H Consult GI-plan for colonoscopy tomorrow with prep tonight -Holding home Eliquis PG Care Time/CCT Total # of Minutes Spent Total Time Spent with Patient: Total time spent is greater than 50% in coordination of care (as documented) at patient's floor/unit and/or counseling patient: Coding Level of Care Code 65475 Initial Inpt Care Lvl 3 Diagnoses Acute GI bleeding K92.2 History of colon cancer Z85.038 Asthma J45.20 Asthma complication type: uncomplicated Asthma persistence: intermittent Asthma severity: mild History of pulmonary embolus (PE) Z86.711 Chronic diastolic congestive heart failure I50.32 Hypothyroid E03.9 Hypothyroidism type: acquired Hypokalemia E87.6 Anemia D64.9 Anemia type: unspecified type HLD (hyperlipidemia) E78.2 Hyperlipidemia type: mixed hyperlipidemia GERD (gastroesophageal reflux disease) K21.9 Esophagitis presence: esophagitis presence not specified Depression F32.9 Renal insufficiency N28.9 Essential hypertension I10 DVT prophylaxis Z29.9 (1) Asthma Asthma complication type: uncomplicated Asthma persistence: intermittent Asthma severity: mild Qualified Code(s): J45.20 - Mild intermittent asthma, uncomplicated (2) Hypothyroid Hypothyroidism type: acquired Qualified Code(s): E03.9 - Hypothyroidism, unspecified (3) Anemia Anemia type: unspecified type Qualified Code(s): D64.9 - Anemia, unspecified (4) HLD (hyperlipidemia) Hyperlipidemia type: mixed hyperlipidemia Qualified Code(s): E78.2 - Mixed hyperlipidemia (5) GERD (gastroesophageal reflux disease) Esophagitis presence: esophagitis presence not specified Qualified Code(s): K21.9 - Gastro-esophageal reflux disease without esophagitis
[2020-10-13] MEDS ORDERED: SODIUM CHLORIDE 0.9% 250 ML IV PRN ×2 (18:42→20:05)
[2020-10-13] MEDS ORDERED: ALBUTEROL HFA 8 GM INHALER INH PRN (20:05)
[2020-10-13] MEDS ORDERED: ALBUT/IPRATROP 3MG/0.5MG NEB 3 ML VIAL INH PRN (20:05)
[2020-10-13] MEDS ORDERED: [UNRECOGNIZED DRUG - OTHER] PO PRN (20:05)
[2020-10-13] MEDS ORDERED: ACETAMINOPHEN 325 MG TAB PO PRN (20:05)
[2020-10-13] MEDS ORDERED: LACTATED RINGER'S 1,000 ML IV SCH (21:00)
[2020-10-13 21:21] LABS: Hemoglobin 7.1 g/dL (12.0-16.0); Mean Corpuscular Hemoglobin 37.8 pg (25-34); Mean Corpuscular Hgb Conc 32.3 g/dL (32-36); Nucleated RBC # (auto) 0.19 K/uL (0-0); Nucleated RBC % (auto) 2.2 %; RDW Standard Deviation 70.2 fL (36.4-46.3); Red Blood Count 1.88 M/uL (4.2-5.4); White Blood Count 8.63 K/uL (4.8-10.8)
[2020-10-13 21:39] LABS: Mean Platelet Volume 10.9 fL (7.4-10.4); Platelet Count 91 K/uL (130-400)
[2020-10-13] MEDS ORDERED: LAVAGE SOLUTION 4000ML PO SCH (22:00)
[2020-10-13] MEDS: SIMVASTATIN 40 MG TAB PO SCH (22:03)
[2020-10-13] MEDS: SERTRALINE HCL 50 MG TABLET PO SCH (22:03)
[2020-10-13] MEDS: ONDANSETRON INJ 2 MG/ML 2 ML VIAL IV PRN (23:49)
[2020-10-14 04:00] LABS: Hematocrit (blood only) 25.5 % (37-47); Hemoglobin 8.4 g/dL (12.0-16.0); Mean Corpuscular Hemoglobin 35.3 pg (25-34); Mean Corpuscular Hgb Conc 32.9 g/dL (32-36); Mean Corpuscular Volume 107.1 fL (80-100); Mean Platelet Volume 11.3 fL (7.4-10.4); Nucleated RBC # (auto) 0.17 K/uL (0-0); Platelet Count 99 K/uL (130-400); RDW Coefficient of Variation 23.6 % (11.5-14.5); RDW Standard Deviation 90.4 fL (36.4-46.3); Red Blood Count 2.38 M/uL (4.2-5.4)
[2020-10-14 04:08] LABS: INR 1.1 (0.9-1.1); Partial Thromboplastin Time 28.4 Seconds (21.0-31.0); Prothrombin Time 11.8 Seconds (9.0-12.0)
[2020-10-14 04:27] LABS: Albumin Level 2.6 gm/dl (3.4-5.0); BUN Creatinine Ratio 12.4 (10-20); Creatinine Clr Calc Pharmacy 62.6 ml/min; Est GFR (African American) 64.7; Est GFR (Non-African American) 55.8; Potassium 3.5 mmol/L (3.5-5.1)
[2020-10-14 04:33] LABS: Albumin Globulin Ratio 1.1 (0.9-2); Bilirubin,Total 1.2 mg/dl (0.2-1); Globulin 2.5 gm/dl (2.5-4.0); Phosphorus 3.8 mg/dl (2.5-4.9); Total Protein 5.1 gm/dl (6.4-8.2)
[2020-10-14 04:48] LABS: Fibrinogen 432 mg/dl (184-400)
[2020-10-14] MEDS: LEVOTHYROXINE SODIUM 150 MCG TABLET PO SCH (05:06)
[2020-10-14] MEDS: FLUTICASONE FUROATE 100MCG 14 PUFFS/INHALER INH SCH (08:05)
[2020-10-14] MEDS: PANTOprazole 40 MG TAB PO SCH (08:06)
--- NOTE | 2020-10-14 08:43 | Anesthesiology Consultation ---
Date of Service October 14, 2020 Assessment & Plan (1) Encounter for pre-operative examination: Chart Review Chart Review: Acceptable Risk for Surgery and Patient NOT seen in Pre Admission Testing covid 19 10/12/2020 negative. Consults Requested none History Surgery Operation Date: 10/14/20 16:30 Proposed Procedures p Colonoscopy Dr. Tejinder Mancera Case, DO Height/Weight Height: 5 ft 5 in Weight: 104.2 kg Allergies Allergy/AdvReac Type Severity Reaction Status Date / Time oxaliplatin Allergy Severe Anaphylaxis Verified 10/12/20 12:39 thiopental Allergy Intermediate INCREASED Verified 10/12/20 12:39 BLEEDING WITH WISDOM TEETH SURG meperidine AdvReac Mild N/V Verified 10/12/20 12:39 morphine AdvReac Mild N/V Verified 10/12/20 12:39 Medications Home Medications Medication Instructions Recorded Confirmed Last Taken albuterol sulfate 2 puff INHALATION Q6 PRN 08/07/18 10/13/20 07/07/20 multivitamin 1 tab PO QAM 08/07/18 10/13/20 10/12/20 ascorbic acid (vitamin C) [Vitamin 500 mg PO BIDM 11/02/19 10/13/20 10/12/20 C] aspirin 81 mg PO HS 11/02/19 10/13/20 10/11/20 cholecalciferol (vitamin D3) 2,000 unit PO BID 11/02/19 10/13/20 10/12/20 [Vitamin D3] apixaban 5 mg tablet 5 mg PO BID #180 tab 06/02/20 10/13/20 10/12/20 sertraline 50 mg tablet 50 mg PO HS #90 tab 06/02/20 10/13/20 10/11/20 beclomethasone dipropionate 80 1 inh INHALATION BID #34.8 g 07/14/20 10/13/20 10/12/20 mcg/actuation HFA breath activated aerosol omeprazole 40 mg capsule,delayed 40 mg PO QAM #90 cap 08/20/20 10/13/20 10/12/20 release metoprolol tartrate 50 mg tablet 50 mg PO TID #90 tab 09/08/20 10/13/20 10/12/20 ipratropium 0.5 mg-albuterol 3 mg 3 ml INHALATION Q4H PRN #540 ml 09/11/20 10/13/20 10/12/20 (2.5 mg base)/3 mL nebulization soln Vitamin E 180mg 180 mg PO QDD 10/12/20 10/13/20 10/11/20 colestipol [Colestid] 1 g PO QDD 10/12/20 10/13/20 10/11/20 cyanocobalamin (vitamin B-12) 1,000 mcg PO QDL 10/12/20 10/13/20 10/11/20 [Vitamin B-12] levothyroxine 150 mcg PO QAM 10/12/20 10/13/20 10/12/20 magnesium oxide 400 mg PO QAM 10/12/20 10/13/20 10/12/20 pyridoxine (vitamin B6) [Vitamin 100 mg PO QDL 10/12/20 10/13/20 10/11/20 B-6] simvastatin 40 mg PO HS 10/12/20 10/13/20 10/11/20 sod phos di, mono-K phos mono 1 tab PO BID #6 tab 10/12/20 10/13/20 Unknown [Phospha] miscellaneous throat product 15 ml PO BID PRN 10/13/20 10/13/20 Unknown potassium gluconate 595 mg PO BID 10/13/20 10/13/20 Unknown Active Medications Generic Name Dose Route Start Last Admin Trade Name Freq PRN Reason Stop Dose Admin Fluticasone Furoate 1 puffs 10/14/20 09:00 10/14/20 08:05 Fluticasone Furoate 100mcg 14 Puffs/Inhaler INH 11/13/20 08:59 1 puffs DAILY JAMIN Administration Levothyroxine Sodium 150 mcg 10/14/20 06:30 10/14/20 05:06 Levothyroxine Sodium 150 Mcg Tablet PO 11/13/20 06:29 150 mcg DAILYBB JAMIN Administration Ondansetron HCl 4 mg 10/13/20 23:43 10/13/20 23:49 Ondansetron Inj 2 Mg/Ml 2 Ml Vial IV 11/12/20 23:42 4 mg Q6H PRN Administration Nausea Pantoprazole Sodium 40 mg 10/14/20 09:00 10/14/20 08:06 Pantoprazole 40 Mg Tab PO 12/17/20 08:59 40 mg QAM JAMIN Administration Sertraline HCl 50 mg 10/13/20 21:00 10/13/20 22:03 Sertraline Hcl 50 Mg Tablet PO 11/12/20 20:59 50 mg HS JAMIN Administration Simvastatin 40 mg 10/13/20 21:00 10/13/20 22:03 Simvastatin 40 Mg Tab PO 11/12/20 20:59 40 mg HS JAMIN Administration Past Medical History Medical History Bacteremia Bilateral pulmonary embolism hx of 2012--reason for eliquis daily (had pneumonia right before and pt states she was not moving much) Candidiasis of intestine Chemotherapy adverse reaction Colon cancer metastasized to lung (09/18/08) "Adenocarcinoma of the colon with lung metastasis diagnosed in 2007 Status post right lobectomy 07/10/2008 Status post colonoscopy and biopsy 09/18/2008 revealing the colon lesion. Status post resection. This was followed by chemotherapy. Status post left upper lobe wedge resection 08/24/2011 due to metastasis Status post stereotactic radiation therapy in 2011 Completed chemotherapy in 2014 Status post wedge resection with Dr. navarrete 2015 Status post hypo-fractionated radiation therapy in 2016 PET/CT 08/24/2017 revealing metabolic activity of the right hilum. Status post completion of radiation therapy 10/24/2017 utilizing VMAT. PET/CT May 29, 2018 persistent uptake in the right paratracheal mass and suspicious changes for progression. Plan for systemic chemotherapy with irinotecan and Erbitux" On 11/02/17 11:11 Meaghan Alves wrote "Adenocarcinoma of the colon with lung metastasis diagnosed in 2007 Status post right lobectomy 07/10/2008 Status post colonoscopy and biopsy 09/18/2008 revealing the colon lesion. Status post resection. This was followed by chemotherapy. Status post left upper lobe wedge resection 08/24/2011 due to metastasis Status post stereotactic radiation therapy in 2011 Completed chemotherapy in 2014 Status post wedge resection with Dr. navarrete 2016 Status post hypo-fractionated radiation therapy in 2016 PET/CT 08/24/2017 revealing metabolic activity of the right hilum. Status post completion of radiation therapy 10/24/2017 utilizing VMAT." On 09/13/17 09:28 Meaghan Alves wrote "Adenocarcinoma of the colon with lung metastasis diagnosed in 2007 Status post right lobectomy 07/10/2008 Status post colonoscopy and biopsy 09/18/2008 revealing the colon lesion. Status post resection. This was followed by chemotherapy. Status post left upper lobe wedge resection 08/24/2011 due to metastasis Status post stereotactic radiation therapy in 2011 Completed chemotherapy in 2014 Status post wedge resection with Dr. navarrete 2015 Status post hypo-fractionated radiation therapy in 2015 PET/CT 08/24/2017 revealing metabolic activity of the right hilum." Depression Diverticulosis of colon DVT, lower extremity left leg, same time as PE Elevated lactic acid level History of anesthesia reaction difficulty waking at times as well as hx of waking up during sx (woke up during port placement) History of chemotherapy History of gastric ulcer History of immunocompromised state History of radiation therapy Hyperlipidemia Hypertension Hypothyroidism Hypoxia Infection due to Port-A-Cath Morbid obesity with BMI of 40.0-44.9, adult Neutropenia On anticoagulant therapy eliquis daily On home oxygen therapy 2L N/C at hs Radiation pneumonitis Seizures due to metabolic disorder x2-- one d/t medication anaphylaxis, and pt states second d/t low magnesium in 09/2019 Septicemia due to coagulase-negative staphylococcal infection Exercise / Class Metabolic Activity III < 4 Walking/Shop/Light housework Past Family History Family History Mother , early 80s of thyroid cancer Thyroid cancer Heart disease Family history of reaction to anesthesia at age 80, took 2 days to wake after thyroidectomy Father , age 81 of gangrene complications No problems noted. Uncle Colorectal cancer Sister Family history of diabetes mellitus Sister Family history of diabetes mellitus Other Family history non-contributory Denies family history of Ovarian cancer Prostate cancer Breast cancer Past Surgical History Surgical History H/O: hysterectomy History of bilateral tubal ligation History of bladder suspension procedure History of bronchoscopy x2-3 History of cholecystectomy open 04/2020 History of colon surgery d/t colon cancer History of colonoscopy with polypectomy History of esophagogastroduodenoscopy (EGD) History of lobectomy of lung right upper lobe removed 06/2008 @ [facility] d/t colon cancer metastasis to lung History of lung surgery wedge resection of left lung d/t cancer History of radioactive iodine thyroid ablation History of removal of cyst off finger History of tonsillectomy History of vascular access device x2--A port in place right side of chest History of ventral hernia repair History of wisdom tooth extraction Past Anesthesia History No Hx of Anesthesia Complications and No Family Hx of Anesthesia Complications History of PONV No Hx of PONV and No Hx of Motion Sickness Social History Smoking Status: Never smoker Do You Dip or Chew Tobacco: No Hx Alcohol Use: No Hx Substance Use: No substance use type: does not use Physical Exam Vital Signs Last Vital Signs Temp 37.2 C 10/14/20 07:28 Pulse 102 H 10/14/20 07:28 Resp 20 10/14/20 07:28 BP 110/67 10/14/20 07:28 Pulse Ox 94 10/14/20 07:28 Testing Laboratory Results 10/14/20 03:41 10/14/20 03:41 PT 11.8 Seconds (9.0-12.0) 10/14/20 03:41 INR 1.1 (0.9-1.1) 10/14/20 03:41 APTT 28.4 Seconds (21.0-31.0) 10/14/20 03:41 Blood Type O Positive 10/13/20 14:17 Antibody Screen NEGATIVE 10/13/20 14:17 Electrocardiogram Date: 10/13/20 Poor data quality, interpretation may be adversely affected Normal sinus rhythm Normal ECG When compared with ECG of 12-OCT-2020 09:37, No significant change was found Confirmed by Garrett Phelps ([id number]) on 10/13/2020 3:47:12 PM
--- NOTE | 2020-10-14 08:47 | Consultation Report ---
DATE OF CONSULTATION: 10/14/2020 REASON FOR CONSULTATION: Rectal bleeding in a 70-year-old female with longstanding history of metastatic colorectal cancer. HISTORY OF PRESENT ILLNESS: The patient is a pleasant 69-year-old female patient well known to [facility], currently under my care for end-stage metastatic colorectal cancer. The patient was originally diagnosed back in 2007 and developed metastatic disease in 2010. This patient has been heavily pretreated with multiple chemotherapeutic regimens. Most recently combination 5-FU, leucovorin and Avastin. She last received chemotherapy, I believe on 10/03/2020. As of late, however, she had been complaining of lightheadedness and dizzy episodes since this past Tuesday. She had come to the ER the evening before her admission at which time, received IV fluids and her hemoglobin was 8.3 without reports of bleeding. Apparently after she returned home, had 2 separate bowel movements with joel bright red blood seen on the toilet paper. She apparently suffered a fall a couple of days ago for the same reason. When she returned to the Emergency Room, her hemoglobin dropped to 7.3 grams per deciliter and platelets 98,000. Patient is currently inpatient under the management of the hospitalist service. I am assuming endoscopic examination is planned. PAST MEDICAL HISTORY: Significant for multitude of difficulties including previous septicemia due to a coag-negative Staphylococcus radiation pneumonitis, morbid obesity, hypothyroidism, hypertension, hyperlipidemia, history of metastatic colorectal cancer, DVT, diverticulosis, candidiasis and bilateral pulmonary emboli. MEDICATIONS: Her list is lengthy albuterol 2 puffs inhaled 6 hours, multivitamin 1 tablet p.o. daily, ascorbic acid 500 mg p.o. b.i.d., aspirin 81 mg p.o. daily, cholecalciferol 2000 units p.o. b.i.d., apixaban 5 mg p.o. b.i.d., sertraline 50 mg p.o. daily, beclomethasone one inhaled b.i.d., omeprazole 40 mg p.o. daily, metoprolol 50 mg p.o. t.i.d., ipratropium/albuterol 3 mL inhaled by nebulizer q. 4 hours, vitamin E 180 mg p.o. every other day, Colestid 1 gram p.o. every other day, cyanocobalamin 1000 mcg p.o. daily, levothyroxine 150 mcg p.o. daily, magnesium oxide 400 mg p.o. daily, vitamin B6 100 mg p.o. daily, simvastatin 40 mg p.o. daily, potassium gluconate 595 mg p.o. b.i.d. ALLERGIES: TO MORPHINE, MEPERIDINE, THIOPENTAL WELL OXALIPLATIN. FAMILY HISTORY: Mother in her 80s from thyroid cancer. Father at age 81 from gangrene complications and an uncle with colorectal cancer. Sisters both suffered from diabetes mellitus. SOCIAL HISTORY: The patient lives with her . 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 She is a nonsmoker, nondrinker, non-illicit drug user. REVIEW OF SYSTEMS: CONSTITUTIONAL: As per HPI, most notably for dizziness and lightheadedness. Status post fall. She is morbidly obese, not anorexic at present time. SKIN: Multiple ecchymoses from fall. No rashes or lesions otherwise. HEENT: Positive for lightheadedness and dizziness. No overt headaches. No visual or hearing deficits. No sinus symptoms, sore throat or dysphagia. LYMPH: No history of lymphoproliferative disease. CARDIAC: No history of coronary artery disease, no angina or palpitations. PULMONARY: Positive for COPD. She is not acutely short of breath or dyspneic on exertion. GASTROINTESTINAL: Positive for rectal bleeding. No abdominal pain. No current nausea or vomiting, no diarrhea or constipation. GENITOURINARY: No hematuria, dysuria, urinary incontinence. PSYCHIATRIC: Positive for anxiety. ENDOCRINE: Positive for thyroid disease. MUSCULOSKELETAL: No focal muscle weakness. No arthralgias. NEUROLOGIC: Negative for seizure, stroke, or migraine headache. HEMATOLOGIC: Positive for anemia and thrombocytopenia attributable to chemotherapeutic effect. PHYSICAL EXAMINATION: GENERAL: Morbidly obese 70-year-old female, in no acute distress. VITAL SIGNS: Temperature 37.3, pulse 99, respiratory rate 16, blood pressure 102/65. SKIN: She has got scattered ecchymosis in her upper extremities, the right side of her face, status post fall. No petechiae noted. HEENT: Again other than the ecchymosis, no obvious trauma, normocephalic. Eyes: PERRLA, EOMI. Nares are patent without rhinorrhea or discharge. Throat is clear. Tongue is midline. Mucous membranes are moist. NECK: Supple without JVD or thyromegaly. LYMPHATICS: No cervical, supraclavicular, axillary or inguinal palpable nodes. HEART: Regular rate and rhythm. No clicks, rubs, murmurs or gallops. LUNGS: Clear to auscultation bilaterally. ABDOMEN: Soft, nontender, nondistended, without palpable hepatosplenomegaly. EXTREMITIES: No calf tenderness or swelling. No clubbing, cyanosis or edema. NEUROLOGICALLY: She is awake, alert and oriented x3. Cranial nerves are grossly intact. LABORATORY DATA: WBC count 8500, hemoglobin 8.4, platelet count 99,000. Sodium 142, potassium 3.5, chloride 110, carbon dioxide 29, creatinine 1.03, BUN 13. RADIOGRAPHIC DATA: CT scan of the abdomen and pelvis, no bowel wall thickening or obstruction. Additional stable chronic and postoperative changes as described above. Chest x-ray, chronic findings without acute process. IMPRESSION: 1. Acute gastrointestinal bleeding. 2. Metastatic colorectal cancer. 3. Chronic obstructive pulmonary disease/asthma. 4. History of pulmonary embolus. 5. Anemia/thrombocytopenia. PLAN: The patient is a pleasant 70-year-old heavily pretreated female for colorectal cancer, currently under my care receiving 5-FU, leucovorin and Avastin. The patient last received her chemotherapy about a week and a half ago. Was doing relatively well until this weekend, developed episodes of lightheadedness and dizziness resulting in fall, suffering some abrasions and bruises. She was to the ER once and received IV fluids, felt better, was sent home. Shortly thereafter developed bright red rectal bleeding. Her hemoglobin presently is 7.3 grams per deciliter. Definitely in favor transfusing 2 units of packed RBCs. She needs her anticoagulation held. Ask GI to evaluate. Bleeding could be hemorrhoidal perhaps diverticular bleed. She had a colonoscopy back in June or July, which revealed no evidence of neoplasia. We will hold her chemotherapy until she is medically stable. I agree with medical management otherwise and will continue to follow her periodically during hospitalization. Thank you very much for allowing me to participate in her care.
[2020-10-14] MEDS ORDERED: PROPOFOL IV EMULSION 10 MG/ML 20 ML VIAL IV ONE ×2 (09:11→10:15)
[2020-10-14] MEDS ORDERED: LIDOCAINE HCL 2% 2 ML VIAL/AMP(20MG/ML) INFIL ONE (09:11)
--- NOTE | 2020-10-14 09:39 | Gastrointestinal Consultation ---
Date of Consultation October 14, 2020 Assessment & Plan (1) History of colon cancer: (2) Acute blood loss anemia: Patient given bowel prep overnight Recommend colonoscopy now for further evaluation Continue supportive care and transfuse PRN to maintain H/H above 7/21 Further recommendations to follow above noted testing. History of Present Illness Reason for Consultation: Acute Blood loss anemia Attending Physician: Antonio Darden History of Present Illness Marie Bee is a pleasant 70 yo CF on eliquis therapy due to history of DVT, and a history of colon cancer s/p resection in 2007 with chemotherapy secondary to lung mets who presented to the ER last night with a 3 day history of hematochezia. She presented to the ER and was noted to be anemic with a Hgb of 7.1. She was transfused 2 u PRBC and given a bowel prep. She states that she has had continued episodes of hematochezia including while taking her bowel prep. She denies any abdominal pain, fevers, chills, nausea, vomiting, or hematemesis. She did have some lightheadedness yesterday, but none at present. Her last colonoscopy was 1 year ago and she was noted to have internal hemorrhoids. An anastomosis was noted at the splenic flexure with normal appearance. She has no further complaints. Allergies Allergy/AdvReac Type Severity Reaction Status Date / Time oxaliplatin Allergy Severe Anaphylaxis Verified 10/12/20 12:39 thiopental Allergy Intermediate INCREASED Verified 10/12/20 12:39 BLEEDING WITH WISDOM TEETH SURG meperidine AdvReac Mild N/V Verified 10/12/20 12:39 morphine AdvReac Mild N/V Verified 10/12/20 12:39 Home Medications Medication Instructions Recorded Confirmed Type albuterol sulfate 2 puff INHALATION Q6 PRN 08/07/18 10/13/20 History multivitamin 1 tab PO QAM 08/07/18 10/13/20 History ascorbic acid (vitamin C) [Vitamin 500 mg PO BIDM 11/02/19 10/13/20 History C] aspirin 81 mg PO HS 11/02/19 10/13/20 History cholecalciferol (vitamin D3) 2,000 unit PO BID 11/02/19 10/13/20 History [Vitamin D3] apixaban 5 mg tablet 5 mg PO BID #180 tab 06/02/20 10/13/20 Rx sertraline 50 mg tablet 50 mg PO HS #90 tab 06/02/20 10/13/20 Rx beclomethasone dipropionate 80 1 inh INHALATION BID #34.8 g 07/14/20 10/13/20 Rx mcg/actuation HFA breath activated aerosol omeprazole 40 mg capsule,delayed 40 mg PO QAM #90 cap 08/20/20 10/13/20 Rx release metoprolol tartrate 50 mg tablet 50 mg PO TID #90 tab 09/08/20 10/13/20 Rx ipratropium 0.5 mg-albuterol 3 mg 3 ml INHALATION Q4H PRN #540 ml 09/11/20 10/13/20 Rx (2.5 mg base)/3 mL nebulization soln Vitamin E 180mg 180 mg PO QDD 10/12/20 10/13/20 History colestipol [Colestid] 1 g PO QDD 10/12/20 10/13/20 History cyanocobalamin (vitamin B-12) 1,000 mcg PO QDL 10/12/20 10/13/20 History [Vitamin B-12] levothyroxine 150 mcg PO QAM 10/12/20 10/13/20 History magnesium oxide 400 mg PO QAM 10/12/20 10/13/20 History pyridoxine (vitamin B6) [Vitamin 100 mg PO QDL 10/12/20 10/13/20 History B-6] simvastatin 40 mg PO HS 10/12/20 10/13/20 History sod phos di, mono-K phos mono 1 tab PO BID #6 tab 10/12/20 10/13/20 Rx [Phospha] miscellaneous throat product 15 ml PO BID PRN 10/13/20 10/13/20 History potassium gluconate 595 mg PO BID 10/13/20 10/13/20 History Patient History Medical History Bacteremia Bilateral pulmonary embolism hx 2012--reason for eliquis daily (had pneumonia right before and pt states she was not moving much) Candidiasis of intestine Chemotherapy adverse reaction Colon cancer metastasized to lung (09/18/08) "Adenocarcinoma of the colon with lung metastasis diagnosed in 2007 Status post right lobectomy 07/10/2008 Status post colonoscopy and biopsy 09/18/2008 revealing the colon lesion. Status post resection. This was followed by chemotherapy. Status post left upper lobe wedge resection 08/24/2011 due to metastasis Status post stereotactic radiation therapy in 2011 Completed chemotherapy in 2014 Status post wedge resection with Dr. navarrete 2016 Status post hypo-fractionated radiation therapy in 2016 PET/CT 08/24/2017 revealing metabolic activity of the right hilum. Status post completion of radiation therapy 10/24/2017 utilizing VMAT. PET/CT May 29, 2018 persistent uptake in the right paratracheal mass and suspicious changes for progression. Plan for systemic chemotherapy with irinotecan and Erbitux" On 11/02/17 11:11 Meaghan Alves wrote "Adenocarcinoma of the colon with lung metastasis diagnosed in 2007 Status post right lobectomy 07/10/2008 Status post colonoscopy and biopsy 09/18/2008 revealing the colon lesion. Status post resection. This was followed by chemotherapy. Status post left upper lobe wedge resection 08/24/2011 due to metastasis Status post stereotactic radiation therapy in 2011 Completed chemotherapy in 2014 Status post wedge resection with Dr. navarrete 2015 Status post hypo-fractionated radiation therapy in 2016 PET/CT 08/24/2017 revealing metabolic activity of the right hilum. Status post completion of radiation therapy 10/24/2017 utilizing VMAT." On 09/13/17 09:28 Meaghan Alves wrote "Adenocarcinoma of the colon with lung metastasis diagnosed in 2007 Status post right lobectomy 07/10/2008 Status post colonoscopy and biopsy 09/18/2008 revealing the colon lesion. Status post resection. This was followed by chemotherapy. Status post left upper lobe wedge resection 08/24/2011 due to metastasis Status post stereotactic radiation therapy in 2011 Completed chemotherapy in 2014 Status post wedge resection with Dr. navarrete 2016 Status post hypo-fractionated radiation therapy in 2015 PET/CT 08/24/2017 revealing metabolic activity of the right hilum." Depression Diverticulosis of colon DVT, lower extremity left leg, same time as PE Elevated lactic acid level History of anesthesia reaction difficulty waking at times as well as hx of waking up during sx (woke up during port placement) History of chemotherapy History of gastric ulcer History of immunocompromised state History of radiation therapy Hyperlipidemia Hypertension Hypothyroidism Hypoxia Infection due to Port-A-Cath Morbid obesity with BMI of 40.0-44.9, adult Neutropenia On anticoagulant therapy eliquis daily On home oxygen therapy 2L N/C at hs Radiation pneumonitis Seizures due to metabolic disorder x2-- one d/t medication anaphylaxis, and pt states second d/t low magnesium in 09/2019 Septicemia due to coagulase-negative staphylococcal infection Surgical History H/O: hysterectomy History of bilateral tubal ligation History of bladder suspension procedure History of bronchoscopy x2-3 History of cholecystectomy open 04/2020 History of colon surgery d/t colon cancer History of colonoscopy with polypectomy History of esophagogastroduodenoscopy (EGD) History of lobectomy of lung right upper lobe removed 06/2008 @ [facility] d/t colon cancer metastasis to lung History of lung surgery wedge resection of left lung d/t cancer History of radioactive iodine thyroid ablation History of removal of cyst off finger History of tonsillectomy History of vascular access device x2--A port in place right side of chest History of ventral hernia repair History of wisdom tooth extraction Family History Mother , early 80s of thyroid cancer Thyroid cancer Heart disease Family history of reaction to anesthesia at age 80, took 2 days to wake after thyroidectomy Father , age 81 of gangrene complications No problems noted. Uncle Colorectal cancer Sister Family history of diabetes mellitus Sister Family history of diabetes mellitus Other Family history non-contributory Denies family history of Ovarian cancer Prostate cancer Breast cancer Social History Smoking Status: Never smoker Second Hand Exposure: Yes (father smoked); Do You Dip or Chew Tobacco: No; Hx Alcohol Use: No Hx Substance Use: No Preferred Language: Malagasy Communication Ability: Effective Early Childhood Worker Required: No Beliefs That Will Affect Care: None marital status: Current Living Situation: Spouse Current Living Situation Comment: Lives with and son current occupational status: retired 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 drives. Seatbelt Use: always Assistive Devices: Glasses Review of Systems Review of Systems: All systems reviewed & are unremarkable except as noted in Subjective Physical Exam Constitutional: + obese; not ill appearing Eyes: sclerae not anicteric ENMT: external ear and nose normal, oropharynx normal Neck: trachea midline, no thyromegaly Respiratory: normal respiratory effort; no respiratory distress and no labored breathing Cardiovascular: RRR, no murmur, no edema Gastrointestinal (Abdomen): normal bowel sounds, soft, nontender, no hepatosplenomegaly Skin: + pallor Psychiatric: A+Ox3, euthymic affect Results & Data ([facility]) Vital Signs (Past 12 Hours) Vital Signs Temp Pulse Pulse Pulse Resp BP BP 10/14/20 09:02 37.6 C H 109 H 18 10/14/20 07:28 37.2 C 102 H 20 110/67 10/14/20 07:25 102 H 10/14/20 04:16 37.3 C 99 H 16 102/65 10/14/20 01:59 37.5 C 99 H 18 117/76 10/14/20 01:57 37.5 C 99 H 18 117/76 10/14/20 01:40 37.5 C 100 H 18 119/77 10/14/20 01:10 37.4 C 100 H 18 116/78 10/14/20 00:40 37.5 C 102 H 18 123/81 10/14/20 00:35 100 H 10/14/20 00:25 37.5 C 100 H 18 126/81 10/14/20 00:10 37.4 C 102 H 18 127/80 10/13/20 23:55 37.5 C 100 H 18 127/83 10/13/20 23:20 37.5 C 103 H 18 121/77 10/13/20 22:53 37.5 C 102 H 18 113/72 10/13/20 21:53 37.4 C 104 H 16 136/82 BP Pulse Ox 10/14/20 09:02 148/89 H 95 10/14/20 07:28 94 10/14/20 07:25 10/14/20 04:16 94 10/14/20 01:59 95 10/14/20 01:57 95 10/14/20 01:40 95 10/14/20 01:10 95 10/14/20 00:40 95 10/14/20 00:35 10/14/20 00:25 96 10/14/20 00:10 98 10/13/20 23:55 98 10/13/20 23:20 98 10/13/20 22:53 98 10/13/20 21:53 98 PG Care Time/CCT Total # of Minutes Spent Total Time Spent with Patient: Total time spent is greater than 50% in coordination of care (as documented) at patient's floor/unit and/or counseling patient: Coding Level of Care Code 32560 Initial Inpt Care Lvl 3 Diagnoses History of colon cancer Z85.038 Acute blood loss anemia D62
[2020-10-14] MEDS ORDERED: EPINEPHrine INJ 1 MG/ML AMP ONE (10:01)
[2020-10-14] MEDS ORDERED: PHENYLEPHRINE 100MCG/ML 5ML SYR ONE (10:15)
--- NOTE | 2020-10-14 10:50 | GI REPORT ---
Patient Name: Marie Bee Procedure Date: 10/14/2020 9:17 AM Date of : 1950 Admit Type: Inpatient Age: 70 Gender: Female Attending MD: Marcelo Marr DO Procedure: Colonoscopy Providers: Marcelo Marr DO Referring MD: Antonio Darden Indications: Hematochezia, Acute post hemorrhagic anemia Medicines: Monitored Anesthesia Care Complications: No immediate complications. Estimated Blood Loss: Estimated blood loss: none. Procedure: Pre-Anesthesia Assessment: - Prior to the procedure, a History and Physical was performed, and patient medications and allergies were reviewed. The patient's tolerance of previous anesthesia was also reviewed. The risks and benefits of the procedure and the sedation options and risks were discussed with the patient. All questions were answered, and informed consent was obtained. Prior Anticoagulants: The patient has taken Eliquis (apixaban), last dose was 2 days prior to procedure. ASA Grade Assessment: IV - A patient with severe systemic disease that is a constant threat to life. After reviewing the risks and benefits, the patient was deemed in satisfactory condition to undergo the procedure. After I obtained informed consent, the scope was passed under direct vision. Throughout the procedure, the patient's blood pressure, pulse, and oxygen saturations were monitored continuously. The Colonoscope was introduced through the anus and advanced to the terminal ileum. The colonoscopy was performed without difficulty. The patient tolerated the procedure well. The quality of the bowel preparation was fair. The terminal ileum, ileocecal valve, appendiceal orifice, and rectum were photographed. Findings: The perianal and digital rectal examinations were normal. Four small localized angiodysplastic lesions with bleeding were found in the cecum. Area was successfully injected with 4 mL of a 1:10,000 solution of epinephrine for hemostasis. Fulguration to ablate the lesion by heater probe was successful. Internal hemorrhoids were found during retroflexion. The hemorrhoids were medium-sized. Impression: - Preparation of the colon was fair. - Four bleeding colonic angiodysplastic lesions. Injected. Treated with a heater probe. - Internal hemorrhoids. - No specimens collected. Recommendation: - Return [facility] care. - Advance diet as tolerated. - Continue present medications. - Difficult decision regarding anticoagulation secondary to GI bleed and DVT's. Will defer to primary team. Risk of rebleeding is moderate to high. Marcelo Marr, DO 10/14/2020 10:49:41 AM This report has been signed electronically. Note Initiated On: 10/14/2020 9:17 AM Number of Addenda: 0 I attest to the content of the Intraoperative Record and orders documented therein, exceptions below {[id number]}
[2020-10-14] MEDS: CYANOCOBALAMIN 500 MCG TABLET (VITAMIN B-12) PO SCH (12:36)
[2020-10-14 12:52] LABS: Hematocrit (blood only) 28.4 % (37-47); Hemoglobin 9.2 g/dL (12.0-16.0)
--- NOTE | 2020-10-14 13:37 | Anesthesiology Progress Note ---
Date of Service October 14, 2020 Anesthesia Post Procedure Vital Signs Vital Signs: Temp Pulse Pulse Pulse Resp BP BP 10/14/20 11:23 36.7 C 108 H 20 10/14/20 11:22 36.5 C 108 H 20 10/14/20 10:59 114 H 18 10/14/20 10:42 108 H 18 10/14/20 10:27 114 H 18 10/14/20 09:02 37.6 C H 109 H 18 10/14/20 07:28 37.2 C 102 H 20 110/67 10/14/20 07:25 102 H 10/14/20 04:16 37.3 C 99 H 16 102/65 10/14/20 01:59 37.5 C 99 H 18 117/76 10/14/20 01:57 37.5 C 99 H 18 117/76 10/14/20 01:40 37.5 C 100 H 18 119/77 10/14/20 01:10 37.4 C 100 H 18 116/78 10/14/20 00:40 37.5 C 102 H 18 123/81 10/14/20 00:35 100 H 10/14/20 00:25 37.5 C 100 H 18 126/81 10/14/20 00:10 37.4 C 102 H 18 127/80 10/13/20 23:55 37.5 C 100 H 18 127/83 10/13/20 23:20 37.5 C 103 H 18 121/77 10/13/20 22:53 37.5 C 102 H 18 113/72 10/13/20 21:53 37.4 C 104 H 16 136/82 10/13/20 21:23 37.4 C 92 H 18 120/76 10/13/20 21:08 37.2 C 99 H 18 133/75 10/13/20 20:48 37.4 C 96 H 16 103/51 L 10/13/20 20:04 104 H 10/13/20 19:50 37.2 C 102 H 18 136/74 10/13/20 19:00 93 H 24 122/83 10/13/20 18:30 96 H 21 139/73 10/13/20 18:00 94 H 12 139/79 10/13/20 17:30 92 H 15 134/103 H 10/13/20 17:01 95 H 24 140/111 H 10/13/20 16:30 97 H 25 H 104/78 10/13/20 16:00 95 H 21 130/70 10/13/20 15:30 96 H 25 H 127/77 10/13/20 15:00 94 H 23 144/75 H 10/13/20 14:20 99 H 25 H 122/78 BP Pulse Ox 10/14/20 11:23 113/89 97 10/14/20 11:22 112/72 98 10/14/20 10:59 130/95 97 10/14/20 10:42 119/92 100 10/14/20 10:27 133/86 95 10/14/20 09:02 148/89 H 95 10/14/20 07:28 94 10/14/20 07:25 10/14/20 04:16 94 10/14/20 01:59 95 10/14/20 01:57 95 10/14/20 01:40 95 10/14/20 01:10 95 10/14/20 00:40 95 10/14/20 00:35 10/14/20 00:25 96 10/14/20 00:10 98 10/13/20 23:55 98 10/13/20 23:20 98 10/13/20 22:53 98 10/13/20 21:53 98 10/13/20 21:23 94 10/13/20 21:08 92 10/13/20 20:48 97 10/13/20 20:04 10/13/20 19:50 100 10/13/20 19:00 95 10/13/20 18:30 98 10/13/20 18:00 98 10/13/20 17:30 99 10/13/20 17:01 95 10/13/20 16:30 95 10/13/20 16:00 96 10/13/20 15:30 97 10/13/20 15:00 95 10/13/20 14:20 95 Pain Intensity Lower Abdomen: Pain Intensity: 8 Transfer of Care Handoff Completed per policy Notes Mental Status: alert / awake / arousable and participated in evaluation Patient Amnestic to Procedure: Yes Nausea / Vomiting: adequately controlled Pain: adequately controlled Airway Patency, RR, SpO2: stable & adequate BP & HR: stable & adequate Hydration State: stable & adequate Anesthetic Complications: no major complications apparent and Pt Satisfied with anesthetic care
[2020-10-14] MEDS: HEPARIN 100 UNIT/ML 5ML FLUSH FLUSH PRN (16:17)
[2020-10-14] MEDS: COLESTIPOL HCL 1 GM TAB PO SCH (16:37)
--- NOTE | 2020-10-14 20:10 | Hospitalist Progress Note ---
Date of Service October 14, 2020 Assessment & Plan (1) Acute blood loss anemia: 2nd to lower GI bleeding from cecal AVMs s/p intervention today by Dr Marr. Cont to trend H/H. Holding asa and eliquis. Diet as tolerated. H/H stable today s/p PRBCs yesterday. (2) AVM (arteriovenous malformation) of small bowel, acquired with hemorrhage: As seen on colonoscopy today. Appreciate Dr Marr's assistance. Trend H/H. (3) Acute GI bleeding: see above (4) History of colon cancer: appreciate Dr Ramirez's consult and recs currently undergoing chemo for such (5) Asthma: no issues (6) History of pulmonary embolus (PE): noted with LLE DVT chronic eliquis use -- on hold due to lower GI bleeding will d/w Dr Ramirez what to do about anticoagulation moving forward (7) Chronic diastolic congestive heart failure: compensated (8) Hypothyroid: TSH 4.6 cont synthroid (9) Hypokalemia: normal levels thus far Follow BMP (10) HLD (hyperlipidemia): Continue simvastatin (11) GERD (gastroesophageal reflux disease): Continue PPI (12) Depression: Continue home sertraline (13) Essential hypertension: restart metoprolol 25mg BID (14) DVT prophylaxis: no chemical anticoagulation in the setting of acute GI bleed updated family by phone Admission and Anticipated Discharge Date Admission Date: October 13, 2020 Subjective saw patient post-colonoscopy. minimal RLQ abd pain from intervention on AVMs in cecum during colonoscopy. no further BRBPR. tele with sinus tach. denies N/V. tolerated diet post-colonoscopy. we had lengthy discussion about quandary of resuming eliquis and asa in light of AVMs. Review of Systems Constitutional: no fever Respiratory: no cough and no dyspnea Cardiovascular: no chest pain Physical Exam Constitutional: + obese; no acute distress and no altered mental status ENMT: external ear and nose normal, oropharynx normal Respiratory: normal respiratory effort, lungs clear to auscultation Cardiovascular: Rate/Rhythm: regular rhythm and + tachycardic Heart Sounds: normal S2; no murmur Vessels: posterior tibial pulses present and dorsalis pedis pulses present; no JVD Extremities: no edema Gastrointestinal (Abdomen): Inspection/Auscultation: normal bowel sounds; abdomen not distended Percussion/Palpation: + abdomen tender (RLQ ) and abdomen soft; no hepatosplenomegaly Skin: + pallor Psychiatric: A+Ox3, euthymic affect Results & Data Results & Data ([facility]) Vital Signs (Past 12 Hours) Vital Signs Temp Pulse Pulse Resp BP Pulse Ox 10/14/20 19:41 37.1 C 111 H 18 131/82 94 10/14/20 16:00 110 H 10/14/20 15:33 37.3 C 114 H 20 121/71 100 10/14/20 11:23 36.7 C 108 H 20 113/89 97 10/14/20 11:22 36.5 C 108 H 20 112/72 98 10/14/20 10:59 114 H 18 130/95 97 10/14/20 10:42 108 H 18 119/92 100 10/14/20 10:27 114 H 18 133/86 95 10/14/20 09:02 37.6 C H 109 H 18 148/89 H 95 Laboratory Results Laboratory Results - last 24 hr 10/13/20 10/13/20 10/13/20 14:17 20:34 20:34 WBC 8.63 RBC 1.88 L Hgb 7.1 L Hct 22.0 L MCV 117.0 H MCH 37.8 H MCHC 32.3 RDW Std Deviation 70.2 H RDW Coeff of Marcell 17.0 H Plt Count 91 L MPV 10.9 H Absolute Nucleated RBC 0.19 H Nucleated RBC % (auto) 2.2 PT INR APTT PTT Ratio Fibrinogen Sodium Potassium Chloride Carbon Dioxide Anion Gap BUN Creatinine Est Cr Clr Drug Dosing Est GFR ( Amer) Est GFR (Non-Af Amer) BUN/Creatinine Ratio Glucose Calcium Phosphorus Magnesium Total Bilirubin AST ALT Alkaline Phosphatase Total Protein Albumin Globulin Albumin/Globulin Ratio Hepatitis C Ab Screen Neg Blood Type O Positive Antibody Screen NEGATIVE Crossmatch See Detail 10/14/20 10/14/20 10/14/20 03:41 03:41 03:41 WBC 8.50 RBC 2.38 L Hgb 8.4 L Hct 25.5 L MCV 107.1 H D MCH 35.3 H MCHC 32.9 RDW Std Deviation 90.4 H RDW Coeff of Marcell 23.6 H Plt Count 99 L MPV 11.3 H Absolute Nucleated RBC 0.17 H Nucleated RBC % (auto) 2.0 PT 11.8 INR 1.1 APTT 28.4 PTT Ratio 1.0 Fibrinogen 432 H Sodium Potassium Chloride Carbon Dioxide Anion Gap BUN Creatinine Est Cr Clr Drug Dosing Est GFR ( Amer) Est GFR (Non-Af Amer) BUN/Creatinine Ratio Glucose Calcium Phosphorus Magnesium Total Bilirubin AST ALT Alkaline Phosphatase Total Protein Albumin Globulin Albumin/Globulin Ratio Hepatitis C Ab Screen Blood Type Antibody Screen Crossmatch 10/14/20 10/14/20 03:41 12:26 WBC RBC Hgb 9.2 L Hct 28.4 L MCV MCH MCHC RDW Std Deviation RDW Coeff of Marcell Plt Count MPV Absolute Nucleated RBC Nucleated RBC % (auto) PT INR APTT PTT Ratio Fibrinogen Sodium 142 Potassium 3.5 Chloride 110 H Carbon Dioxide 29 Anion Gap 4.0 BUN 13 Creatinine 1.03 Est Cr Clr Drug Dosing 62.6 Est GFR ( Amer) 64.7 Est GFR (Non-Af Amer) 55.8 BUN/Creatinine Ratio 12.4 Glucose 87 Calcium 8.0 L Phosphorus 3.8 D Magnesium 2.0 Total Bilirubin 1.2 H D AST 20 ALT 15 Alkaline Phosphatase 91 Total Protein 5.1 L Albumin 2.6 L Globulin 2.5 Albumin/Globulin Ratio 1.1 Hepatitis C Ab Screen Blood Type Antibody Screen Crossmatch PG Care Time/CCT Total # of Minutes Spent Total Time Spent with Patient: Total time spent is greater than 50% in coordination of care (as documented) at patient's floor/unit and/or counseling patient: Coding Level of Care Code 08212 Subseq Hosp Care Lvl 3 Diagnoses Acute blood loss anemia D62 AVM (arteriovenous malformation) of small bowel, acquired with hemorrhage K55.21 Acute GI bleeding K92.2 History of colon cancer Z85.038 Asthma J45.20 Asthma complication type: uncomplicated Asthma persistence: intermittent Asthma severity: mild History of pulmonary embolus (PE) Z86.711 Chronic diastolic congestive heart failure I50.32 Hypothyroid E03.9 Hypothyroidism type: acquired Hypokalemia E87.6 HLD (hyperlipidemia) E78.2 Hyperlipidemia type: mixed hyperlipidemia GERD (gastroesophageal reflux disease) K21.9 Esophagitis presence: esophagitis presence not specified Depression F32.9 Essential hypertension I10 DVT prophylaxis Z29.9 (1) HLD (hyperlipidemia) Hyperlipidemia type: mixed hyperlipidemia Qualified Code(s): E78.2 - Mixed hyperlipidemia (2) Hypothyroid Hypothyroidism type: acquired Qualified Code(s): E03.9 - Hypothyroidism, unspecified (3) GERD (gastroesophageal reflux disease) Esophagitis presence: esophagitis presence not specified Qualified Code(s): K21.9 - Gastro-esophageal reflux disease without esophagitis (4) Asthma Asthma complication type: uncomplicated Asthma persistence: intermittent Asthma severity: mild Qualified Code(s): J45.20 - Mild intermittent asthma, uncomplicated
[2020-10-14] MEDS: SIMVASTATIN 40 MG TAB PO SCH (20:37)
[2020-10-14] MEDS: SERTRALINE HCL 50 MG TABLET PO SCH (20:37)
[2020-10-14] MEDS: ONDANSETRON INJ 2 MG/ML 2 ML VIAL IV PRN (20:57)
[2020-10-14] MEDS ORDERED: METOCLOPRAMIDE HCL INJ 5 MG/ML 2 ML VIAL IV STA (21:53)
[2020-10-15] MEDS: LEVOTHYROXINE SODIUM 150 MCG TABLET PO SCH (05:25)
[2020-10-15 05:57] LABS: Appearance Urine Clear (Clear); Bilirubin Urine Negative (Negative); Blood Urine Negative (Negative); Color Urine Yellow; Glucose Urine UA Negative (Negative); Ketones Urine Negative (Negative); Leukocyte Esterase Urine Negative (Negative); Nitrite Urine Negative (Negative); Protein Urine Negative (Negative); Specific Gravity Urine 1.015 (1.000-1.030); Urobilinogen Urine Negative (Negative)
[2020-10-15] MEDS: PANTOprazole 40 MG TAB PO SCH (07:54)
[2020-10-15] MEDS: FLUTICASONE FUROATE 100MCG 14 PUFFS/INHALER INH SCH (07:54)
[2020-10-15 08:17] LABS: Hematocrit (blood only) 27.5 % (37-47); Hemoglobin 8.7 g/dL (12.0-16.0); Mean Corpuscular Hemoglobin 34.4 pg (25-34); Mean Corpuscular Hgb Conc 31.6 g/dL (32-36); Mean Corpuscular Volume 108.7 fL (80-100); Nucleated RBC # (auto) 0.05 K/uL (0-0); Nucleated RBC % (auto) 0.7 %; Platelet Count 123 K/uL (130-400); RDW Coefficient of Variation 23.6 % (11.5-14.5); RDW Standard Deviation 91.5 fL (36.4-46.3); Red Blood Count 2.53 M/uL (4.2-5.4); White Blood Count 7.22 K/uL (4.8-10.8)
[2020-10-15 08:31] LABS: INR 1.1 (0.9-1.1); Partial Thromboplastin Time 27.2 Seconds (21.0-31.0); Prothrombin Time 11.7 Seconds (9.0-12.0)
[2020-10-15 08:47] LABS: Albumin Globulin Ratio 0.9 (0.9-2); Albumin Level 2.7 gm/dl (3.4-5.0); BUN Creatinine Ratio 7.6 (10-20); Bilirubin,Total 0.7 mg/dl (0.2-1); Calcium 8.6 mg/dl (8.5-10.1); Creatinine Clr Calc Pharmacy 63.1 ml/min; Est GFR (African American) 65.5; Est GFR (Non-African American) 56.5; Globulin 2.8 gm/dl (2.5-4.0); Phosphorus 3.6 mg/dl (2.5-4.9); Potassium 3.2 mmol/L (3.5-5.1); Total Protein 5.6 gm/dl (6.4-8.2)
[2020-10-15] MEDS ORDERED: POTASSIUM CHLORIDE CRTAB 20 MEQ TABCR PO STA (09:56)
[2020-10-15] MEDS: METOPROLOL TARTRATE 25 MG TAB PO SCH ×2 (10:27→20:21)
[2020-10-15] MEDS: CYANOCOBALAMIN 500 MCG TABLET (VITAMIN B-12) PO SCH (10:28)
[2020-10-15 15:31] LABS: Hematocrit (blood only) 28.6 % (37-47); Hemoglobin 9.2 g/dL (12.0-16.0)
[2020-10-15 16:00] LABS: Ferritin 489.9 ng/ml (8-388)
[2020-10-15] MEDS: COLESTIPOL HCL 1 GM TAB PO SCH (17:04)
[2020-10-15] MEDS: SIMVASTATIN 40 MG TAB PO SCH (20:21)
[2020-10-15] MEDS: SERTRALINE HCL 50 MG TABLET PO SCH (20:22)
--- NOTE | 2020-10-15 20:29 | Hospitalist Progress Note ---
Date of Service October 15, 2020 Assessment & Plan (1) Acute blood loss anemia: 2nd to lower GI bleeding from cecal AVMs s/p intervention by Dr Marr. Cont holding asa and eliquis. Diet as tolerated. s/p 2 units PRBCs earlier this stay. CBC in am. (2) AVM (arteriovenous malformation) of small bowel, acquired with hemorrhage: As seen on colonoscopy. Appreciate Dr Marr's assistance. Trend H/H. Challenging situation in that ideally she remain on eliquis. HOWEVER, high risk of re-bleeding. We discussed pros/cons and risks/benefits of witholding eliquis vs resuming it. Believe benefits outweigh risks. Repeat CBC in am. If stable then consider resuming eliquis late or Tuesday. WOULD NOT RESUME ASPIRIN MOVING FORWARD. (3) Acute GI bleeding: see above (4) History of colon cancer: appreciate Dr Ramirez's consult and recs currently undergoing chemo for such no recurrence in the colon on colonoscopy (5) Asthma: no issues (6) History of pulmonary embolus (PE): noted with LLE DVT chronic eliquis use -- on hold due to lower GI bleeding see discussion above (7) Chronic diastolic congestive heart failure: compensated (8) Hypothyroid: TSH 4.6 cont synthroid (9) Hypokalemia: low at 3.2 today replace repeat BMP am (10) HLD (hyperlipidemia): Continue simvastatin (11) GERD (gastroesophageal reflux disease): Continue PPI (12) Depression: Continue home sertraline (13) Essential hypertension: restart metoprolol 25mg BID and titrate to usual dose of 50 BID tachycardia likely due to beta kenia being held and the acute anemia (14) DVT prophylaxis: no chemical anticoagulation in the setting of acute GI bleed updated family by phone yesterday watch overnight d/c encompass tomorrow? Admission and Anticipated Discharge Date Admission Date: October 13, 2020 Subjective tele overnight - sinus tach or NSR. pt feeling well. RLQ abd pain essentially resolved. has seen NO BRBPR. tolerating diet. no nausea/emesis. ambulating but still wanting to go to rehab at [facility]. Review of Systems Constitutional: no fever and no chills Respiratory: no cough, no dyspnea and no dyspnea on exertion Cardiovascular: no chest pain Gastrointestinal: no blood in stools Physical Exam Constitutional: + obese; no acute distress and no altered mental status ENMT: external ear and nose normal, oropharynx normal Respiratory: normal respiratory effort, lungs clear to auscultation Cardiovascular: Rate/Rhythm: regular rhythm and + tachycardic Heart Sounds: normal S2; no murmur Vessels: posterior tibial pulses present and dorsalis pedis pulses present; no JVD Extremities: no edema Gastrointestinal (Abdomen): Inspection/Auscultation: normal bowel sounds; abdomen not distended Percussion/Palpation: + abdomen tender (RLQ - scant (improved from 10/14)) and abdomen soft; no hepatosplenomegaly Skin: + pallor Psychiatric: A+Ox3, euthymic affect Results & Data Results & Data ([facility]) Vital Signs (Past 12 Hours) Vital Signs Temp Pulse Pulse Pulse Resp BP Pulse Ox 10/15/20 20:00 37 C 103 H 18 155/79 H 94 10/15/20 16:02 37.2 C 99 H 20 133/92 98 10/15/20 16:00 106 H 10/15/20 11:45 37.4 C 114 H 20 105/65 94 10/15/20 09:26 117 H Laboratory Results Laboratory Results - last 24 hr 10/15/20 10/15/20 10/15/20 05:30 07:48 07:48 WBC RBC Hgb Hct MCV MCH MCHC RDW Std Deviation RDW Coeff of Marcell Plt Count MPV Absolute Nucleated RBC Nucleated RBC % (auto) PT 11.7 INR 1.1 APTT 27.2 PTT Ratio 1.0 Sodium 142 Potassium 3.2 L Chloride 108 H Carbon Dioxide 27 Anion Gap 7.0 BUN 8 D Creatinine 1.02 Est Cr Clr Drug Dosing 63.1 Est GFR ( Amer) 65.5 Est GFR (Non-Af Amer) 56.5 BUN/Creatinine Ratio 7.6 L Glucose 89 Calcium 8.6 Phosphorus 3.6 Magnesium 2.0 Iron Transferrin Transferrin % Sat Ferritin Total Bilirubin 0.7 D AST 22 ALT 16 Alkaline Phosphatase 95 Total Protein 5.6 L Albumin 2.7 L Globulin 2.8 Albumin/Globulin Ratio 0.9 Urine Color Yellow Urine Appearance Clear Urine pH 5.0 Ur Specific [place] 1.015 Urine Protein Negative Urine Glucose (UA) Negative Urine Ketones Negative Urine Blood Negative Urine Nitrite Negative Urine Bilirubin Negative Urine Urobilinogen Negative Ur Leukocyte Esterase Negative 10/15/20 10/15/20 10/15/20 07:48 15:22 15:22 WBC 7.22 RBC 2.53 L Hgb 8.7 L 9.2 L Hct 27.5 L 28.6 L MCV 108.7 H MCH 34.4 H MCHC 31.6 L RDW Std Deviation 91.5 H RDW Coeff of Marcell 23.6 H Plt Count 123 L MPV 11.0 H Absolute Nucleated RBC 0.05 H Nucleated RBC % (auto) 0.7 PT INR APTT PTT Ratio Sodium Potassium Chloride Carbon Dioxide Anion Gap BUN Creatinine Est Cr Clr Drug Dosing Est GFR ( Amer) Est GFR (Non-Af Amer) BUN/Creatinine Ratio Glucose Calcium Phosphorus Magnesium Iron 47 Transferrin 207 Transferrin % Sat 16 Ferritin 489.9 H Total Bilirubin AST ALT Alkaline Phosphatase Total Protein Albumin Globulin Albumin/Globulin Ratio Urine Color Urine Appearance Urine pH Ur Specific [place] Urine Protein Urine Glucose (UA) Urine Ketones Urine Blood Urine Nitrite Urine Bilirubin Urine Urobilinogen Ur Leukocyte Esterase PG Care Time/CCT Total # of Minutes Spent Total Time Spent with Patient: Total time spent is greater than 50% in coordination of care (as documented) at patient's floor/unit and/or counseling patient: Coding Level of Care Code 47365 Subseq Hosp Care Lvl 2 Diagnoses Acute blood loss anemia D62 AVM (arteriovenous malformation) of small bowel, acquired with hemorrhage K55.21 Acute GI bleeding K92.2 History of colon cancer Z85.038 Asthma J45.20 Asthma complication type: uncomplicated Asthma persistence: intermittent Asthma severity: mild History of pulmonary embolus (PE) Z86.711 Chronic diastolic congestive heart failure I50.32 Hypothyroid E03.9 Hypothyroidism type: acquired Hypokalemia E87.6 HLD (hyperlipidemia) E78.2 Hyperlipidemia type: mixed hyperlipidemia GERD (gastroesophageal reflux disease) K21.9 Esophagitis presence: esophagitis presence not specified Depression F32.9 Essential hypertension I10 DVT prophylaxis Z29.9 (1) HLD (hyperlipidemia) Hyperlipidemia type: mixed hyperlipidemia Qualified Code(s): E78.2 - Mixed hyperlipidemia (2) Hypothyroid Hypothyroidism type: acquired Qualified Code(s): E03.9 - Hypothyroidism, unspecified (3) GERD (gastroesophageal reflux disease) Esophagitis presence: esophagitis presence not specified Qualified Code(s): K21.9 - Gastro-esophageal reflux disease without esophagitis (4) Asthma Asthma complication type: uncomplicated Asthma persistence: intermittent Asthma severity: mild Qualified Code(s): J45.20 - Mild intermittent asthma, uncomplicated
[2020-10-15] MEDS: METOPROLOL TARTRATE 50 MG TAB PO SCH (21:08)
[2020-10-16] MEDS: HEPARIN 100 UNIT/ML 5ML FLUSH FLUSH PRN (04:52)
[2020-10-16 04:54] LABS: Hematocrit (blood only) 25.5 % (37-47); Hemoglobin 8.1 g/dL (12.0-16.0); Mean Corpuscular Hemoglobin 35.4 pg (25-34); Mean Corpuscular Hgb Conc 31.8 g/dL (32-36); Mean Corpuscular Volume 111.4 fL (80-100); Mean Platelet Volume 10.7 fL (7.4-10.4); Nucleated RBC # (auto) 0.03 K/uL (0-0); Nucleated RBC % (auto) 0.8 %; Platelet Count 126 K/uL (130-400); RDW Standard Deviation 91.9 fL (36.4-46.3); Red Blood Count 2.29 M/uL (4.2-5.4); White Blood Count 4.21 K/uL (4.8-10.8)
[2020-10-16 05:11] LABS: Calcium 7.7 mg/dl (8.5-10.1); Creatinine Clr Calc Pharmacy 63.1 ml/min; Est GFR (African American) 65.5; Est GFR (Non-African American) 56.5; Potassium 3.5 mmol/L (3.5-5.1)
[2020-10-16] MEDS: LEVOTHYROXINE SODIUM 150 MCG TABLET PO SCH (05:58)
[2020-10-16] MEDS: METOPROLOL TARTRATE 50 MG TAB PO SCH (08:45)
[2020-10-16] MEDS: FLUTICASONE FUROATE 100MCG 14 PUFFS/INHALER INH SCH (08:46)
[2020-10-16] MEDS: PANTOprazole 40 MG TAB PO SCH (08:46)
[2020-10-16] MEDS ORDERED: SODIUM CHLORIDE 0.9% 250 ML IV PRN (09:58)
[2020-10-16 11:37] LABS: Hematocrit (blood only) 26.9 % (37-47); Hemoglobin 8.6 g/dL (12.0-16.0)
[2020-10-16] MEDS: CYANOCOBALAMIN 500 MCG TABLET (VITAMIN B-12) PO SCH (11:54)
--- NOTE | 2020-10-16 14:52 | Discharge Summary ---
Date of Service date of admission - October 13, 2020 date of discharge - October 16, 2020 Admission HPI Per Admitting Provider Marie Bee is a 69 year old female with metastatic colorectal cancer 2007 (distal transverse and proximal descending colectomy with re-anastomosis) to her lungs (RLL wedge resection 2007 and LINA VATS wedge excision 2010). Other past medical history includes history of restrictive lung disease, COPD, VU, DVT/PE in 2007, on Eliquis, HTN, HLD, anemia, GERD, obesity with BMI of 37.6, hypothyroidism, GERD, anxiety and depression, osteopenia. Patient is currently receiving 5FU and Avastin chemotherapy, she was to receive therapy today however was cancelled secondary to how low HGB level. Patient complained of feeling dizzy and light-headed since Tuesday and came to the EMD last PM. HGB at that time was 8.3 (Baseline is upper 9 and low 10) without reports of bleeding. She went home and had BM x2 with joel blood and blood on toilet paper. She reports no clots in toilet or on toilet paper. She did feel dizzy this morning but once she got up and moving around felt better. Her HGB in EMD was 7.3 with Platelets of 98. Patient is on Eliquis for history of PE and last dose is Oct 13, 2020 at 0600. Patient also took Metoprolol this morning and ASA. Recently had colonoscopy performed on Jul 05, 2011 with normal rectal exams and small internal hemorrhoids per report. Patient was typed and crossed in the EMD and PRBC transfusion of leukocyte reduced blood started. Patient will be admitted to PCU telemetry, bowel prepped and GI consulted for possible colonoscopy in the AM. Of note patient did have a fall last week while walking her dog and has multiple areas of ecchymosis. Principal Diagnosis lower GI bleeding 2nd to cecal AVMs with resulting acute blood loss anemia Discharge Exam Constitutional + obese; no acute distress and no altered mental status ENMT external ear and nose normal, oropharynx normal Respiratory normal respiratory effort, lungs clear to auscultation Cardiovascular Rate/Rhythm: regular rhythm and + tachycardic (Low 100s) Heart Sounds: normal S2; no murmur Vessels: posterior tibial pulses present and dorsalis pedis pulses present; no JVD Extremities: no edema Gastrointestinal (Abdomen) Inspection/Auscultation: normal bowel sounds; abdomen not distended Percussion/Palpation: abdomen soft; abdomen nontender and no hepatosplenomegaly Psychiatric A+Ox3, euthymic affect Discharge Data Allergies Allergy/AdvReac Type Severity Reaction Status Date / Time oxaliplatin Allergy Severe Anaphylaxis Verified 10/22/20 14:56 thiopental Allergy Intermediate INCREASED Verified 10/22/20 14:56 BLEEDING WITH WISDOM TEETH SURG meperidine AdvReac Mild N/V Verified 10/22/20 14:56 morphine AdvReac Mild N/V Verified 10/22/20 14:[address] [facility] [place] Gastroenterology - Marcelo Marr DO Oncology - Malik Ramirez DO PT, OT Procedures Performed Operation Date: 10/14/20 16:30 Actual Procedures Colonoscopy Hemostasis - Marcelo Mancera Case, DO Findings: The perianal and digital rectal examinations were normal. Four small localized angiodysplastic lesions with bleeding were found in the cecum. Area was successfully injected with 4 mL of a 1:10,000 solution of epinephrine for hemostasis. Fulguration to ablate the lesion by heater probe was successful. Internal hemorrhoids were found during retroflexion. The hemorrhoids were medium-sized. 2 units PRBCs Ordered Studies 10/13/20 14:03 CT abd pelvis IV con only Stat FINDINGS: Consolidation within the right medial lung remains unchanged. There are stable chronic volume loss within the right hemithorax. A catheter terminates in the right atrium and may extend to the right ventricle through a patent foramen ovale. No pneumoperitoneum. No pneumatosis. No suspicious lytic or blastic osseous lesions. Cholecystectomy. No hepatic or splenic masses. A few calcified granulomas noted within the spleen. The adrenal glands and pancreas are unremarkable. Bilateral peripelvic renal cysts are again noted. No hydronephrosis. No retroperitoneal lymphadenopathy. Normal caliber abdominal aorta. Prior mesh repair of a ventral hernia. The bladder is unremarkable. Small fat-containing left inguinal hernia. Prior hysterectomy. No pelvic free fluid. No bowel wall thickening or obstruction. Submucosal fat within the proximal colon. This is considered to be chronic. A few colonic diverticula. No evidence for acute diverticulitis. Hospital Course (1) AVM (arteriovenous malformation) of small bowel, acquired with hemorrhage: Multiple cecal AVMs. As seen on colonoscopy. s/p intervention - see Dr Marr's procedure note. There is a fairly high risk of the AVMs rebleeding and thus it is a challenging decision about her eliquis anticoagulation. However, the risk of VTE is very high given her colon cancer. Thus, eliquis will be resumed shortly after discharge. WOULD NOT RESUME ASPIRIN MOVING FORWARD. (2) Acute blood loss anemia: 2nd to lower GI bleeding from cecal AVMs s/p intervention by Dr Marcelo Marr (see procedure note). Aspirin & eliquis were held during the stay. s/p 2 units PRBCs for low hemoglobin of 7.1 Discharge hemoglobin 8.6. Will take ferrous sulfate 325mg BID after discharge. (3) Acute GI bleeding: lower as above (4) History of colon cancer: followed by Dr Malik Ramirez at the [facility]. currently undergoing treatment for such. no recurrence in the colon on colonoscopy. (5) Asthma: no issues/no exacerbation while hospitalized. (6) History of pulmonary embolus (PE): with LLE DVT at time of prior PE. chronic eliquis use -- on hold while here due to lower GI bleeding. benefits of eliquis likely outweigh risk of re-bleeding. eliquis to be resumed shortly after discharge. (7) Chronic diastolic congestive heart failure: compensated during the stay. (8) Hypothyroid: TSH 4.6 cont synthroid (9) Hypokalemia: repleted and normal at discharge (10) HLD (hyperlipidemia): Continue simvastatin (11) GERD (gastroesophageal reflux disease): Continue PPI (12) Depression: Continue sertraline (13) Essential hypertension: Metoprolol initially held due to low-normal BPs in the setting of acute GI bleeding. After bleeding stopped her metoprolol was resumed and gradually titrated up. She will resume her normal dose of metoprolol tartrate 50mg TID. Total Time Total Time Spent Total Time Spent (In Minutes): 45 Total Time Includes: Examination of the Patient, Discharge Planning, Medication Reconciliation and Communication With Other Providers Discharge Plan Discharge Items Patient Disposition: Transfer Inpatient Rehab Fac Reason For Visit: Lower GI bleed Discharge Diagnosis: Lower GI bleeding due to "AVMs" in the cecum of small intestine -- intervention by Dr Marcelo Marr to stop bleeding Activity: Resume your previous activity Non-emergency contact: Primary Care Provider and Oncologist Call non-emergency contact if: you have any medication questions, your symptoms worsen and you have a fever Follow-up/Referrals: Garcia,Raimundo E., MD [Primary Care Provider] - Malik Ramirez DO [Physician] - (see Dr Ramirez or one of the PAs at [facility] in 5 days ) Diet: Heart Healthy Addtl Attending Provider Instructions: Ms Bee, You were admitted for lower GI bleeding and anemia. You required 2 units of blood because of your bleeding. Dr Marr from [facility] performed a colonoscopy which revealed 4 AVMs (benign blood vessel growths) in the last portion of the small intestine. Dr Marr cauterized the AVMs to stop the bleeding. Following the colonoscopy you had no further bleeding and you were tolerating a diet. We are having to make a difficult decision regarding whether to restart your eliquis. In the ideal world we would stop the eliquis but you are at high risk of blood clots. Thus, although there is some risk, we will attempt to resume the eliquis after hospital discharge. I would recommend that the aspirin BE STOPPED INDEFINITELY, however. Dr Ramirez's office will see you next week to recheck your blood counts and determine when it is acceptable to resume your chemotherapy for your colon cancer. Recommendations: 1. STOP your aspirin. 2. START ferrous sulfate 325mg twice daily. 3. follow-up with Dr Ramirez or one of his PAs in 5 days at the [facility]. 4. RESUME eliquis on 10/17/20, in the AM. 5. CBC and BMP in 3 days for stability. Pending Studies at Discharge: No Stand-Alone Forms: My [facility] Skilled Items Patient informed of condition?: Yes DNR: No Discharge Level of Care: Acute rehab Communicable Disease: No Discharge Prognosis: Stable Lines: None Urinary Catheter: No Medications and DC Order Prescriptions: New ferrous sulfate 325 mg (65 mg iron) tablet 325 mg PO BID Qty: 60 RF: 2 Continued sertraline 50 mg tablet 50 mg PO HS Qty: 90 RF: 3 beclomethasone dipropionate 80 mcg/actuation HFA aerosol breath activated 1 inh Inhalation BID Qty: 34.8 RF: 1 Hold Instructions: pt unsure omeprazole 40 mg capsule,delayed release(DR/EC) 40 mg PO QAM Qty: 90 RF: 3 metoprolol tartrate 50 mg tablet 50 mg PO TID Qty: 90 RF: 3 ipratropium-albuterol 0.5 mg-3 mg(2.5 mg base)/3 mL solution for nebulization 3 ml INHALATION Q4H PRN (Reason: Shortness Of Breath Or Wheezing) Qty: 540 RF: 5 multivitamin Tablet 1 tab PO QAM RF: 0 albuterol sulfate 90 mcg/actuation HFA aerosol inhaler 2 puff Inhalation Q6 PRN (Reason: Shortness Of Breath Or Wheezing) RF: 0 magnesium oxide 400 mg magnesium Tablet 400 mg PO QAM RF: 0 simvastatin 40 mg tablet 40 mg PO HS RF: 0 colestipol [Colestid] 1 gram tablet 1 g PO QDD RF: 0 levothyroxine 150 mcg capsule 150 mcg PO QAM RF: 0 cyanocobalamin (vitamin B-12) [Vitamin B-12] 1,000 mcg Tablet 1,000 mcg PO QDL RF: 0 pyridoxine (vitamin B6) [Vitamin B-6] 100 mg Tablet 100 mg PO QDL RF: 0 Vitamin E 180mg 180 mg PO QDD RF: 0 Phospha 250 Neutral 250 mg tablet 1 tab PO BID Qty: 6 RF: 0 ascorbic acid (vitamin C) [Vitamin C] 500 mg Tablet 500 mg PO BIDM RF: 0 cholecalciferol (vitamin D3) [Vitamin D3] 1,000 unit Tablet,Chewable 2,000 unit PO BID RF: 0 potassium gluconate 595 mg (99 mg) Tablet 595 mg PO BID RF: 0 miscellaneous throat product liquid 15 ml PO BID PRN (Reason: Mouth Irritation) RF: 0 Discontinued apixaban 5 mg tablet 5 mg PO BID Qty: 180 RF: 3 aspirin 81 mg Tablet,Delayed Release (Dr/Ec) 81 mg PO HS RF: 0 No Action Arnuity Ellipta 100 mcg/actuation blister with device 1 inh inhalation DAILY RF: 0 Discharge Orders: Discharge Order (Routine); Ordered 10/16/20 Ordered By: Antonio Darden Admission Data Admit Date/Time: 10/13/20 17:15 Attending Provider: Antonio Darden Admit Provider: Farzaneh Kinney Primary Care Provider: Raimundo Garcia Other Providers: Farzaneh Kinney ; Marcelo Marr ; Malik Ramirez V. ; [facility] Other Interventions: Discharge Summary Assessment (RN) Last Done: 10/16/20 14:58 Coding Level of Care Code D/C Day Management >30 mins Diagnoses AVM (arteriovenous malformation) of small bowel, acquired with hemorrhage K55.21 Acute blood loss anemia D62 Acute GI bleeding K92.2 History of colon cancer Z85.038 Asthma J45.20 Asthma complication type: uncomplicated Asthma persistence: intermittent Asthma severity: mild History of pulmonary embolus (PE) Z86.711 Chronic diastolic congestive heart failure I50.32 Hypothyroid E03.9 Hypothyroidism type: acquired Hypokalemia E87.6 HLD (hyperlipidemia) E78.2 Hyperlipidemia type: mixed hyperlipidemia GERD (gastroesophageal reflux disease) K21.9 Esophagitis presence: esophagitis presence not specified Depression F32.9 Essential hypertension I10
[2020-10-16] MEDS: COLESTIPOL HCL 1 GM TAB PO SCH (15:56)
== END 2020-10-16 17:33 | DRG 378 ==
LOC: ED 12:28 → 2S 17:15 → SUATTDRO 17:15 → 2S 19:08

== ENCOUNTER 2020-12-15 07:32 | Inpatient (IN) ==
[2020-12-15] MEDS ORDERED: HYDROmorphone INJ 0.5 MG/0.5 ML SYR IV PRN (08:02)
--- NOTE | 2020-12-15 08:12 | Emergency Department Note ---
History of Present Illness General Chief complaint: Weakness Stated complaint: Fall, Weakness Time Seen by Provider: 12/15/20 07:35 Source: patient Mode of arrival: EMS Limitations: no limitations History of Present Illness Provider Complaint: + gross hematochezia and + other (weakness, fatigue, fall) Onset (ago): 3 day(s) Pain Consistency: + intermittent Severity: mild Maximum Pain Intensity: 1 Current Pain Intensity: 1 Relieved By: + none Exacerbated By: + bowel movement and + movement Context: + history of GI bleed and + hemorrhoids Associated symptoms: + nausea, + malaise and + weakness Treatments Prior to Arrival: + none HPI Narrative: This 70-year-old female patient presents to the emergency department today for evaluation of weakness and a fall in the setting of a GI bleed. She is a cancer patient with colon cancer which has metastasized to the lung. She had chemotherapy on . The patient states at that time, the providers noted she "did not look good", so she was referred to be given a liter of IV fluids. She states on Tuesday she did have a CT scan, but unclear what was scanned at that time. The patient reports similar symptoms in September associated with a GI bleed which she describes as 4 vessels bleeding into the small intestines. She denies any fever, cough, congestion, runny nose, sore throat, vomiting, diarrhea, numbness, tingling. She does report nausea which is new and different than her normal symptoms associated with chemotherapy. Last bowel movement was this morning and with the exception of the associated bright red blood and pain with moving her bowels, this was normal for her. Patient states this morning when she fell, she fell down onto her knees. She did not strike her head. Because she was feeling so weak, she was unable to get up, so she called her on the phone who then summoned EMS to assist. At that time, she decided to come to the emergency department for evaluation of the weakness. The patient was able to bear weight and is able to fully move her bilateral lower extremities, though states she did not try to ambulate after the fall. Home Medications Medication Instructions Recorded Confirmed Type albuterol sulfate 2 puff INHALATION Q6 PRN 08/07/18 12/15/20 History multivitamin 1 tab PO QAM 08/07/18 12/15/20 History ascorbic acid (vitamin C) [Vitamin 500 mg PO BIDM 11/02/19 12/15/20 History C] cholecalciferol (vitamin D3) 2,000 unit PO BID 11/02/19 12/15/20 History [Vitamin D3] sertraline 50 mg tablet 50 mg PO HS #90 tab 06/02/20 12/15/20 Rx beclomethasone dipropionate 80 1 inh INHALATION BID #34.8 g 07/14/20 12/15/20 Rx mcg/actuation HFA breath activated aerosol omeprazole 40 mg capsule,delayed 40 mg PO QAM #90 cap 08/20/20 12/15/20 Rx release metoprolol tartrate 50 mg tablet 50 mg PO TID #90 tab 09/08/20 12/15/20 Rx ipratropium 0.5 mg-albuterol 3 mg 3 ml INHALATION Q4H PRN #540 ml 09/11/20 12/15/20 Rx (2.5 mg base)/3 mL nebulization soln Vitamin E 180mg 180 mg PO QDD 10/12/20 12/15/20 History colestipol [Colestid] 1 g PO QDD 10/12/20 12/15/20 History cyanocobalamin (vitamin B-12) 1,000 mcg PO QDL 10/12/20 12/15/20 History [Vitamin B-12] levothyroxine 150 mcg PO QAM 10/12/20 12/15/20 History magnesium oxide 400 mg PO QAM 10/12/20 12/15/20 History pyridoxine (vitamin B6) [Vitamin 100 mg PO QDL 10/12/20 12/15/20 History B-6] simvastatin 40 mg PO HS 10/12/20 12/15/20 History miscellaneous throat product 15 ml PO BID PRN 10/13/20 12/15/20 History potassium gluconate 595 mg PO BID 10/13/20 12/15/20 History ferrous sulfate 325 mg PO BID #60 tab 10/16/20 12/15/20 Rx fluticasone furoate 100 1 inh INHALATION DAILY 10/22/20 12/15/20 History mcg/actuation blister powder for inhalation apixaban [Eliquis] 5 mg PO BID 12/15/20 12/15/20 History Allergies Allergy/AdvReac Type Severity Reaction Status Date / Time oxaliplatin Allergy Severe Anaphylaxis Verified 12/15/20 08:38 thiopental Allergy Intermediate INCREASED Verified 12/15/20 08:38 BLEEDING WITH WISDOM TEETH SURG meperidine AdvReac Mild N/V Verified 12/15/20 08:38 morphine AdvReac Mild N/V Verified 12/15/20 08:38 Past Med/Surg History Medical History Acute GI bleeding Asthma Bacteremia Bilateral pulmonary embolism hx of 2012--reason for eliquis daily (had pneumonia right before and pt states she was not moving much) Candidiasis of intestine Chemotherapy adverse reaction Chronic diastolic congestive heart failure Colon cancer metastasized to lung (09/18/08) "Adenocarcinoma of the colon with lung metastasis diagnosed in 2007 Status post right lobectomy 07/10/2008 Status post colonoscopy and biopsy 09/18/2008 revealing the colon lesion. Status post resection. This was followed by chemotherapy. Status post left upper lobe wedge resection 08/24/2011 due to metastasis Status post stereotactic radiation therapy in 2011 Completed chemotherapy in 2014 Status post wedge resection with Dr. navarrete 2015 Status post hypo-fractionated radiation therapy in 2015 PET/CT 08/24/2017 revealing metabolic activity of the right hilum. Status post completion of radiation therapy 10/24/2017 utilizing VMAT. PET/CT May 29, 2018 persistent uptake in the right paratracheal mass and suspicious changes for progression. Plan for systemic chemotherapy with irinotecan and Erbitux" On 11/02/17 11:11 Meaghan Alves wrote "Adenocarcinoma of the colon with lung metastasis diagnosed in 2007 Status post right lobectomy 07/10/2008 Status post colonoscopy and biopsy 09/18/2008 revealing the colon lesion. Status post resection. This was followed by chemotherapy. Status post left upper lobe wedge resection 08/24/2011 due to metastasis Status post stereotactic radiation therapy in 2011 Completed chemotherapy in 2014 Status post wedge resection with Dr. navarrete 2016 Status post hypo-fractionated radiation therapy in 2016 PET/CT 08/24/2017 revealing metabolic activity of the right hilum. Status post completion of radiation therapy 10/24/2017 utilizing VMAT." On 09/13/17 09:28 Meaghan Alves wrote "Adenocarcinoma of the colon with lung metastasis diagnosed in 2007 Status post right lobectomy 07/10/2008 Status post colonoscopy and biopsy 09/18/2008 revealing the colon lesion. Status post resection. This was followed by chemotherapy. Status post left upper lobe wedge resection 08/24/2011 due to metastasis Status post stereotactic radiation therapy in 2011 Completed chemotherapy in 2014 Status post wedge resection with Dr. navarrete 2015 Status post hypo-fractionated radiation therapy in 2015 PET/CT 08/24/2017 revealing metabolic activity of the right hilum." Depression Depression Diverticulosis of colon DVT, lower extremity left leg, same time as PE Elevated lactic acid level Essential hypertension GERD (gastroesophageal reflux disease) History of anesthesia reaction difficulty waking at times as well as hx of waking up during sx (woke up during port placement) History of chemotherapy History of gastric ulcer History of immunocompromised state History of pulmonary embolus (PE) History of radiation therapy HLD (hyperlipidemia) Hyperlipidemia Hypertension Hypothyroid Hypothyroidism Hypoxia Infection due to Port-A-Cath Morbid obesity with BMI of 40.0-44.9, adult Neutropenia On anticoagulant therapy eliquis daily On home oxygen therapy 2L N/C at hs Radiation pneumonitis Seizures due to metabolic disorder x2-- one d/t medication anaphylaxis, and pt states second d/t low magnesium in 09/2019 Septicemia due to coagulase-negative staphylococcal infection Surgical History H/O: hysterectomy History of bilateral tubal ligation History of bladder suspension procedure History of bronchoscopy x2-3 History of cholecystectomy open 04/2020 History of colon surgery d/t colon cancer History of colonoscopy with polypectomy History of esophagogastroduodenoscopy (EGD) History of lobectomy of lung right upper lobe removed 06/2008 @ [facility] d/t colon cancer metastasis to lung History of lung surgery wedge resection of left lung d/t cancer History of radioactive iodine thyroid ablation History of removal of cyst off finger History of tonsillectomy History of vascular access device x2--A port in place right side of chest History of ventral hernia repair History of wisdom tooth extraction Family History Mother , early 80s of thyroid cancer Thyroid cancer Heart disease Family history of reaction to anesthesia at age 80, took 2 days to wake after thyroidectomy Father , age 81 of gangrene complications No problems noted. Uncle Colorectal cancer Sister Family history of diabetes mellitus Sister Family history of diabetes mellitus Other Family history non-contributory Denies family history of Ovarian cancer Prostate cancer Breast cancer Social History Smoking Status: Never smoker Second Hand Exposure: Yes (father smoked); Hx Alcohol Use: No Hx Substance Use: No Preferred Language: Khmer Communication Ability: Effective Four H Agent Required: No Beliefs That Will Affect Care: None marital status: Current Living Situation: Spouse Current Living Situation Comment: Lives with and son current occupational status: retired 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 drives. Seatbelt Use: always Assistive Devices: None Review of Systems A total of 10 systems reviewed and were otherwise negative Physical Exam Vital Signs: Vital Signs - 24 hr 12/15/20 07:35 12/15/20 08:02 12/15/20 08:06 Temperature 36.8 C Temperature Source Oral Pulse Rate 93 H 90 Pulse Rate from Sp O2 Sensor 90 Pulse Rhythm Regular Respiratory Rate 19 13 Respiratory Effort / Characteristics Non-Labored Respiratory Depth Normal Respiratory Patter n Regular Blood Pressure 132/72 95/60 L Blood Pressure Albina n 92 65 Blood Pressure Pos ition Sitting Pulse Oximetry 93 98 96 Oxygen Delivery Me thod Room Air Room Air Sepsis Recent Feve r Within 48 Hours No Sepsis New/Unexpla ined Change in Men jace Status No Sepsis Action Take n by Nursing No Action Required 12/15/20 08:30 12/15/20 09:00 12/15/20 09:01 Temperature Temperature Source Pulse Rate 90 85 85 Pulse Rate from Sp O2 Sensor 91 H 85 85 Pulse Rhythm Respiratory Rate 11 L 13 15 Respiratory Effort / Characteristics Respiratory Depth Respiratory Patter n Blood Pressure 100/72 94/52 L Blood Pressure Albina n 76 58 Blood Pressure Pos ition Pulse Oximetry 98 94 93 Oxygen Delivery Me thod Sepsis Recent Feve r Within 48 Hours Sepsis New/Unexpla ined Change in Men jace Status Sepsis Action Take n by Nursing 12/15/20 09:30 12/15/20 10:00 12/15/20 10:30 Temperature Temperature Source Pulse Rate 86 87 85 Pulse Rate from Sp O2 Sensor 86 86 85 Pulse Rhythm Respiratory Rate 22 16 13 Respiratory Effort / Characteristics Respiratory Depth Respiratory Patter n Blood Pressure 88/56 L 90/62 L 100/55 L Blood Pressure Albina n 66 71 61 Blood Pressure Pos ition Pulse Oximetry 99 99 100 Oxygen Delivery Me thod Room Air Sepsis Recent Feve r Within 48 Hours Sepsis New/Unexpla ined Change in Men jace Status Sepsis Action Take n by Nursing 12/15/20 11:00 12/15/20 11:30 12/15/20 11:31 Temperature Temperature Source Pulse Rate 86 84 85 Pulse Rate from Sp O2 Sensor 86 84 85 Pulse Rhythm Respiratory Rate 15 12 12 Respiratory Effort / Characteristics Respiratory Depth Respiratory Patter n Blood Pressure 86/55 L 106/58 L Blood Pressure Albina n 57 74 Blood Pressure Pos ition Pulse Oximetry 100 100 100 Oxygen Delivery Me thod Sepsis Recent Feve r Within 48 Hours Sepsis New/Unexpla ined Change in Men jace Status Sepsis Action Take n by Nursing Physical Exam: VITALS: Vitals are noted on the nurse's note and reviewed by myself. Patient is afebrile. BP 100/72. Heart rate 90. O2 saturation 98% on room air. GENERAL: This is a 70-year-old white female, in no acute distress, nondiaphoretic, well-developed well-nourished. SKIN: The skin was without rashes, erythema, edema, or bruising. There is no tenting of the skin. Capillary refill less than 2 seconds. HEAD: Normocephalic atraumatic. EYES: Conjunctivae without injection, sclerae without icterus. Extraocular movements intact. NOSE: Patent, turbinates without inflammation or discharge. No sinus tenderness. NECK: Supple without nuchal rigidity. No lymphadenopathy. Cervical spine is no ntender. No JVD. HEART: Regular rate and rhythm without murmurs gallops or rubs. LUNGS: Clear to auscultation bilaterally without wheezes, rales or rhonchi. No retractions or accessory muscle use. ABDOMEN: Positive bowel sounds x 4. Normal tympanic percussion. Soft, nontender, without masses or organomegaly. No guarding or rebound tenderness. RECTAL: noted hemorrhoids and gross blood. MUSCULOSKELETAL: No muscle atrophy, erythema, or edema noted. Full range of motion without joint tenderness in all extremities. No tenderness to palpation. Strength 5/5 throughout. NEURO: Patient was alert and oriented to person place and time. Normal sensation to light and sharp touch. Deep tendon reflexes 2+ throughout. No focal neurological deficits. Course Course The patient was seen and evaluated as above. An order was placed for continuous cardiac monitoring. The monitor shows a normal sinus rhythm at a rate of 88 bpm. Previous medical records reviewed. I discussed the case with my attending physician. IV access obtained, labs drawn. Patient medicated with IV fluids, Dilaudid. X-ray imaging performed and reviewed by myself and radiologist as noted. Labs reviewed by myself. I discussed the findings with the patient at bedside. She was reassessed and is feeling sleepy, but her pain has improved. I discussed case with the ED behavioral health case manager. [facility]. Administered Medications Hydromorphone HCl (Hydromorphone Inj 0.5 Mg/0.5 Ml Syr) 0.5 mg IV Q15M PRN PRN Reason: Pain Last Admin: 12/15/20 08:30 Dose: 0.5 mg Documented by: [id number] Sodium Chloride (Nss) 250 mls @ 30 mls/hr IV .Q8H20M [facility] Stop: 01/14/21 09:44 Last Admin: 12/15/20 09:28 Dose: 30 mls/hr Documented by: [id number] Discontinued Medications Sodium Chloride (Nss 1000ml) 1,000 mls @ 999 mls/hr IV .Q1H1M JAMIN Stop: 12/15/20 09:15 Last Infusion: 12/15/20 09:27 Dose: 0 mls/hr Documented by: [id number] Admin: 12/15/20 08:26 Dose: 999 mls/hr Documented by: [id number] Medical Decision Making Differential Diagnosis + hemorrhoids, + infectious diarrhea, + esophageal varices, + gastritis, + Jessica-Ware syndrome, + Upper gastrointestinal hemorrhage, + Lower gastrointestinal hemorrhage, + hematochezia, + melena, + anal fissure, + iverticulosis, + AVM, + coagulopathy, + colitis, + inflammatory bowel disease, + malignancy, + esophagitis, + peptic ulcer disease and + variceal bleed Medical Records Attestation: I reviewed the patient's medical records. Home Medications Current Medication List: was personally reviewed by me Laboratory Data Attestation: I reviewed the patient's lab results. Anemia with a hemoglobin of 9.2. No leukocytosis. Platelet count 82,000. INR 1.1. Creatinine elevated 1.44. Lactic acid 1.7. Troponin negative. Electrolytes without significant abnormality. Result diagrams: 12/15/20 08:24 12/15/20 08:24 Lab Results 12/15/20 12/15/20 12/15/20 Range/Units 08:24 08:24 08:24 WBC 7.81 (4.8-10.8) K/uL RBC 2.49 L (4.2-5.4) M/uL Hgb 9.2 L (12.0-16.0) g/dL Hct 27.4 L (37-47) % MCV 110.0 H (80-100) fL MCH 36.9 H (25-34) pg MCHC 33.6 (32-36) g/dL RDW Std Deviation 77.6 H (36.4-46.3) fL RDW Coeff of Marcell 19.5 H (11.5-14.5) % Plt Count 82 L (130-400) K/uL MPV 12.6 H (7.4-10.4) fL Immature Gran % (Auto) 4.2 % Neut % (Auto) 81.6 % Lymph % (Auto) 12.4 % [place] % (Auto) 1.3 % Eos % (Auto) 0.4 % Baso % (Auto) 0.1 % Neut # (Auto) 6.37 (1.4-6.5) K/uL Lymph # (Auto) 0.97 L (1.2-3.4) K/uL [place] # (Auto) 0.10 L (0.11-0.59) K/uL Eos # (Auto) 0.03 (0-0.5) K/uL Baso # (Auto) 0.01 (0-0.2) K/uL Immature Gran # (Auto) 0.33 H (0.00-0.02) K/uL Toxic Granulation 1+ Platelet Estimate Decreased L (Normal) Macrocytosis Present Ovalocytes 1+ PT 11.7 (9.0-12.0) Seconds INR 1.1 (0.9-1.1) APTT 35.6 H (21.0-31.0) Seconds PTT Ratio 1.3 Sodium (136-145) mmol/L Potassium (3.5-5.1) mmol/L Chloride (98-107) mmol/L Carbon Dioxide (21-32) mmol/L Anion Gap (3-11) BUN (7-18) mg/dl Creatinine (0.6-1.2) mg/dl Est Cr Clr Drug Dosing ml/min Est GFR ( Amer) Est GFR (Non-Af Amer) BUN/Creatinine Ratio (10-20) Glucose (70-99) mg/dl Lactate (0.4-2.0) mmol/L Calcium (8.5-10.1) mg/dl Magnesium (1.8-2.4) mg/dl Total Bilirubin (0.2-1) mg/dl AST (15-37) U/L ALT (12-78) U/L Alkaline Phosphatase (45-117) U/L Troponin I (0-0.045) ng/ml Total Protein (6.4-8.2) gm/dl Albumin (3.4-5.0) gm/dl Globulin (2.5-4.0) gm/dl Albumin/Globulin Ratio (0.9-2) COVID-19 Eval Order SARS-CoV-2, RNA, NAAT (NEGATIVE) Blood Type O Positive Antibody Screen NEGATIVE 12/15/20 12/15/20 12/15/20 Range/Units 08:24 08:24 11:02 WBC (4.8-10.8) K/uL RBC (4.2-5.4) M/uL Hgb (12.0-16.0) g/dL Hct (37-47) % MCV (80-100) fL MCH (25-34) pg MCHC (32-36) g/dL RDW Std Deviation (36.4-46.3) fL RDW Coeff of Marcell (11.5-14.5) % Plt Count (130-400) K/uL MPV (7.4-10.4) fL Immature Gran % (Auto) % Neut % (Auto) % Lymph % (Auto) % [place] % (Auto) % Eos % (Auto) % Baso % (Auto) % Neut # (Auto) (1.4-6.5) K/uL Lymph # (Auto) (1.2-3.4) K/uL [place] # (Auto) (0.11-0.59) K/uL Eos # (Auto) (0-0.5) K/uL Baso # (Auto) (0-0.2) K/uL Immature Gran # (Auto) (0.00-0.02) K/uL Toxic Granulation Platelet Estimate (Normal) Macrocytosis Ovalocytes PT (9.0-12.0) Seconds INR (0.9-1.1) APTT (21.0-31.0) Seconds PTT Ratio Sodium 139 (136-145) mmol/L Potassium 4.6 (3.5-5.1) mmol/L Chloride 108 H (98-107) mmol/L Carbon Dioxide 23 (21-32) mmol/L Anion Gap 9.0 (3-11) BUN 19 H (7-18) mg/dl Creatinine 1.44 H (0.6-1.2) mg/dl Est Cr Clr Drug Dosing 43.1 ml/min Est GFR ( Amer) 43.1 Est GFR (Non-Af Amer) 37.2 BUN/Creatinine Ratio 13.0 (10-20) Glucose 98 (70-99) mg/dl Lactate 1.7 (0.4-2.0) mmol/L Calcium 8.9 (8.5-10.1) mg/dl Magnesium 2.4 (1.8-2.4) mg/dl Total Bilirubin 0.4 (0.2-1) mg/dl AST 21 (15-37) U/L ALT 21 (12-78) U/L Alkaline Phosphatase 106 (45-117) U/L Troponin I < 0.015 (0-0.045) ng/ml Total Protein 5.8 L (6.4-8.2) gm/dl Albumin 3.1 L (3.4-5.0) gm/dl Globulin 2.7 (2.5-4.0) gm/dl Albumin/Globulin Ratio 1.2 (0.9-2) COVID-19 Eval Order Covid19 [id number] SARS-CoV-2, RNA, NAAT (NEGATIVE) Blood Type Antibody Screen 12/15/20 Range/Units 11:02 WBC (4.8-10.8) K/uL RBC (4.2-5.4) M/uL Hgb (12.0-16.0) g/dL Hct (37-47) % MCV (80-100) fL MCH (25-34) pg MCHC (32-36) g/dL RDW Std Deviation (36.4-46.3) fL RDW Coeff of Marcell (11.5-14.5) % Plt Count (130-400) K/uL MPV (7.4-10.4) fL Immature Gran % (Auto) % Neut % (Auto) % Lymph % (Auto) % [place] % (Auto) % Eos % (Auto) % Baso % (Auto) % Neut # (Auto) (1.4-6.5) K/uL Lymph # (Auto) (1.2-3.4) K/uL [place] # (Auto) (0.11-0.59) K/uL Eos # (Auto) (0-0.5) K/uL Baso # (Auto) (0-0.2) K/uL Immature Gran # (Auto) (0.00-0.02) K/uL Toxic Granulation Platelet Estimate (Normal) Macrocytosis Ovalocytes PT (9.0-12.0) Seconds INR (0.9-1.1) APTT (21.0-31.0) Seconds PTT Ratio Sodium (136-145) mmol/L Potassium (3.5-5.1) mmol/L Chloride (98-107) mmol/L Carbon Dioxide (21-32) mmol/L Anion Gap (3-11) BUN (7-18) mg/dl Creatinine (0.6-1.2) mg/dl Est Cr Clr Drug Dosing ml/min Est GFR ( Amer) Est GFR (Non-Af Amer) BUN/Creatinine Ratio (10-20) Glucose (70-99) mg/dl Lactate (0.4-2.0) mmol/L Calcium (8.5-10.1) mg/dl Magnesium (1.8-2.4) mg/dl Total Bilirubin (0.2-1) mg/dl AST (15-37) U/L ALT (12-78) U/L Alkaline Phosphatase (45-117) U/L Troponin I (0-0.045) ng/ml Total Protein (6.4-8.2) gm/dl Albumin (3.4-5.0) gm/dl Globulin (2.5-4.0) gm/dl Albumin/Globulin Ratio (0.9-2) COVID-19 Eval Order SARS-CoV-2, RNA, NAAT NEGATIVE (NEGATIVE) Blood Type Antibody Screen Imaging Data Radiologist's Impression: XR chest 1V portable CLINICAL HISTORY: weakness COMPARISON STUDY: 12/03/2020 FINDINGS: There is persistent elevation the right hemidiaphragm. Postsurgical changes are present within the right hemithorax. There is a persistent 5 cm right perihilar mass. There is a right-sided A-Port catheter. The left lung remains clear.[ IMPRESSION: No significant change from the prior study. Postsurgical changes within the right hemithorax with volume loss, elevation of the right hemidiaphragm, and a persistent 5 cm masslike opacity within the right perihilar region ACT 112: Negative or not required by law. Electronically signed by: Gilson Cordero M.D. 12/15/2020 8:24 AM ECG Data Attestation: I personally reviewed and interpreted this ECG as follows: Indication: weakness Rate (beats per minute): 87 Rhythm: normal sinus Findings: no ST depression, no T-wave inversion, no acute ischemic change and no ectopy Comparison ECG Date: from (10/13/2020) Change: no significant change Blood Pressure Blood Pressure Findings: Low blood pressure Blood Pressure Disposition: further management by hospitalist RUSSELL Narrative This 70-year-old female patient presents to the emergency department today for evaluation of weakness. At this has been in the setting of recent chemotherapy treatment for colon and lung cancer completed on . She did develop some rectal bleeding on Tuesday and has been feeling weak ever since. She was treated with some IV fluids last week and experienced some improvement of her symptoms, though today she lowered herself to the ground and fell onto her knees and was unable to get back up due to the weakness. EMS was summoned and the patient was brought to the emergency department. Patient does appear anemic with a hemoglobin of 9. This is down from her general baseline of 10. There is no leukocytosis, but there is thrombocytopenia noted. Lactic acid 1.7. The patient does not have any history of infectious type of symptoms at this time. Symptoms most consistent with GI bleed. There is no abdominal pain to warrant further imaging at this time, though I do feel the patient will likely benefit from a scope. Patient will be admitted to the hospitalist service for ongoing management of her symptoms and further evaluation of the GI bleeding. Please see hospitalist dictation regarding ongoing management care of this patient. The chart was completed utilizing [employer] voice recognition software. Grammatical errors, random word insertions, pronoun errors, and incomplete sentences are an occasional consequence of this system due to software limitations, ambient noise, and hardware issues. Any formal questions or concerns about the content, text, or information contained within the body of this dictation should be directly addressed to the provider for clarification. Impression & Plan Weakness, Anemia, GI bleed Discharge Plan Visit Data Chief Complaint: Weakness Stated Complaint: Fall, Weakness ED Provider: Martin Casiano ED Midlevel Provider: Monica Bueno Discharge Problem: Weakness, Anemia, GI bleed Patient Disposition: Admitted As Inpatient Forms Stand Alone Forms: [facility] [employer] Prescriptions Prescriptions: No Action sertraline 50 mg tablet 50 mg PO HS Qty: 90 RF: 3 beclomethasone dipropionate 80 mcg/actuation HFA aerosol breath activated 1 inh Inhalation BID Qty: 34.8 RF: 1 Hold Instructions: pt unsure omeprazole 40 mg capsule,delayed release(DR/EC) 40 mg PO QAM Qty: 90 RF: 3 metoprolol tartrate 50 mg tablet 50 mg PO TID Qty: 90 RF: 3 ipratropium-albuterol 0.5 mg-3 mg(2.5 mg base)/3 mL solution for nebulization 3 ml INHALATION Q4H PRN (Reason: Shortness Of Breath Or Wheezing) Qty: 540 RF: 5 Arnuity Ellipta 100 mcg/actuation blister with device 1 inh inhalation DAILY RF: 0 multivitamin Tablet 1 tab PO QAM RF: 0 albuterol sulfate 90 mcg/actuation HFA aerosol inhaler 2 puff Inhalation Q6 PRN (Reason: Shortness Of Breath Or Wheezing) RF: 0 magnesium oxide 400 mg magnesium Tablet 400 mg PO QAM RF: 0 simvastatin 40 mg tablet 40 mg PO HS RF: 0 colestipol [Colestid] 1 gram tablet 1 g PO QDD RF: 0 levothyroxine 150 mcg capsule 150 mcg PO QAM RF: 0 cyanocobalamin (vitamin B-12) [Vitamin B-12] 1,000 mcg Tablet 1,000 mcg PO QDL RF: 0 pyridoxine (vitamin B6) [Vitamin B-6] 100 mg Tablet 100 mg PO QDL RF: 0 Vitamin E 180mg 180 mg PO QDD RF: 0 Eliquis 5 mg tablet 5 mg PO BID RF: 0 ascorbic acid (vitamin C) [Vitamin C] 500 mg Tablet 500 mg PO BIDM RF: 0 cholecalciferol (vitamin D3) [Vitamin D3] 1,000 unit Tablet,Chewable 2,000 unit PO BID RF: 0 potassium gluconate 595 mg (99 mg) Tablet 595 mg PO BID RF: 0 miscellaneous throat product liquid 15 ml PO BID PRN (Reason: Mouth Irritation) RF: 0 ferrous sulfate 325 mg (65 mg iron) tablet 325 mg PO BID Qty: 60 RF: 2 Referrals Referrals: Raimundo Garcia MD [Primary Care Provider] - Discharge Problem: Anemia Qualifiers: Anemia type: unspecified type Qualified Code(s): D64.9 - Anemia, unspecified GI bleed Qualifiers: GI bleed type/associated pathology: unspecified gastrointestinal hemorrhage type Qualified Code(s): K92.2 - Gastrointestinal hemorrhage, unspecified
[2020-12-15] MEDS ORDERED: SODIUM CHLORIDE 0.9% 1000ML 1,000 ML IV SCH (08:15)
--- NOTE | 2020-12-15 08:26 | XRay Report ---
XR chest 1V portable CLINICAL HISTORY: weakness COMPARISON STUDY: 12/03/2020 FINDINGS: There is persistent elevation the right hemidiaphragm. Postsurgical changes are present wit hin the right hemithorax. There is a persistent 5 cm right perihilar mass. There is a right-sided A-P ort catheter. The left lung remains clear.[ IMPRESSION: No significant change from the prior study. Postsurgical changes within the right hemitho rax with volume loss, elevation of the right hemidiaphragm, and a persistent 5 cm masslike opacity wi thin the right perihilar region ACT 112: Negative or not required by law. Electronically signed by: Gilson Cordero M.D. 12/15/2020 8:24 AM
[2020-12-15 08:50] LABS: INR 1.1 (0.9-1.1); Partial Thromboplastin Ratio 1.3; Partial Thromboplastin Time 35.6 Seconds (21.0-31.0); Prothrombin Time 11.7 Seconds (9.0-12.0)
[2020-12-15 08:57] LABS: Hematocrit (blood only) 27.4 % (37-47); Hemoglobin 9.2 g/dL (12.0-16.0); Mean Corpuscular Hemoglobin 36.9 pg (25-34); Mean Corpuscular Hgb Conc 33.6 g/dL (32-36); Mean Platelet Volume 12.6 fL (7.4-10.4); Platelet Count 82 K/uL (130-400); RDW Coefficient of Variation 19.5 % (11.5-14.5); RDW Standard Deviation 77.6 fL (36.4-46.3); Red Blood Count 2.49 M/uL (4.2-5.4); White Blood Count 7.81 K/uL (4.8-10.8)
[2020-12-15 08:58] LABS: Basophils # (auto) 0.01 K/uL (0-0.2); Basophils % (auto) 0.1 %; Eosinophils # (auto) 0.03 K/uL (0-0.5); Eosinophils % (auto) 0.4 %; Immature Granulocytes # (auto) 0.33 K/uL (0.00-0.02); Immature Granulocytes % (auto) 4.2 %; Lymphocytes # (auto) 0.97 K/uL (1.2-3.4); Lymphocytes % (auto) 12.4 %; Macrocytosis Present; Monocytes % (auto) 1.3 %; Neutrophils # (auto) 6.37 K/uL (1.4-6.5); Neutrophils % (auto) 81.6 %; Ovalocytes 1+; Platelet Estimate Decreased (Normal); Toxic Granulation 1+
[2020-12-15 09:09] LABS: Alanine Aminotransferase 21 U/L (12-78); Albumin Level 3.1 gm/dl (3.4-5.0); Aspartate Aminotransferase 21 U/L (15-37); Blood Urea Nitrogen 19 mg/dl (7-18); Calcium 8.9 mg/dl (8.5-10.1); Carbon Dioxide 23 mmol/L (21-32); Chloride 108 mmol/L (98-107); Creatinine Clr Calc Pharmacy 43.1 ml/min; Est GFR (African American) 43.1; Est GFR (Non-African American) 37.2; Glucose 98 mg/dl (70-99); Magnesium 2.4 mg/dl (1.8-2.4); Potassium 4.6 mmol/L (3.5-5.1); Sodium 139 mmol/L (136-145)
[2020-12-15 09:14] LABS: Albumin Globulin Ratio 1.2 (0.9-2); Alkaline Phosphatase 106 U/L (45-117); Bilirubin,Total 0.4 mg/dl (0.2-1); Globulin 2.7 gm/dl (2.5-4.0); Total Protein 5.8 gm/dl (6.4-8.2); Troponin I < 0.015 ng/ml (0-0.045)
[2020-12-15] MEDS: SODIUM CHLORIDE 0.9% 250 ML IV SCH ×2 (09:28→18:22)
--- NOTE | 2020-12-15 10:08 | History & Physical Report ---
Date of Service December 15, 2020 Assessment & Plan (1) GI bleed: Mrs. Bee is a 70 year female with a history of Hypertension, Dyslipidemia, Metastatic Colon Cancer to Lung s/p Right Upper Lobectomy (currently on Avastin and 5FU last Tx 12/11/2020), DVT / Pulmonary Emboli (chronically on Eliquis for her thromboembolic disease), Obesity, Restrictive Lung Disease, COPD, Chronic Respiratory Failure, Osteopenia, Anemia/Pancytopenia secondary to chemotherapy, previous Seizure secondary to metabolic disorder, and Prior GI Bleeding from 4 Angiodysplastic Lesions in the [place] (09/2020) -- who was brought to the ER via EMS after sustaining a Fall secondary to Generalized Weakness/ Worsening Anemia/ and GI Blood Loss. Patient states that she had a normal bowel movement on 12/08/2020 but did not move her bowels again until 12/12/2020 - it was a large BM and she had hematochezia beginning with this BM. She has continued to experience approximately 3 bloody bowel movements per day through the weekend. Patient states this morning when she fell that she fell down onto her knees and she was feeling so weak, she was unable to get up. She called her on the phone who then activated EMS to assist. Patient did not sustain any injuries with this fall and she did not have any syncope or near syncope that contributed to her fall Otherwise, patient admits to a poor appetite in general, but her appetite is worse than usual over the past week or so -- food does not appeal to her and she describes nausea without vomiting recently. She denies any focal abdominal pain, but she does admit to rectal discomfort constantly. Current Hgb is 9.2 g/dL -- she normally has a Hgb in the 10.0 to 10.5 g/dL range. -- Admit to Med-Surg Floor. -- Type and cross done in the ER. -- Serial H&H. -- Consult Dr. Marr, Gastroenterology. -- Continue IVF's. -- Hold Eliquis for the time being, knee high TEDS ordered. -- NPO except ice chips, sips, and medications. (2) Anemia: -- Current Hgb is 9.2 g/dL -- she normally has a Hgb in the 10.0 to 10.5 g/dL range. -- Manage as outlined above. -- Transfuse if Hgb drops below 8.0 g/dL or sooner if symptomatic. (3) Weakness: -- Secondary to problems #1 and #2. (4) COPD (chronic obstructive pulmonary disease): -- Continue usual inhalers. -- Duoneb nebulizer treatments as needed. (5) Restrictive lung disease: -- Continue usual inhalers. -- Duoneb nebulizer treatments as needed. (6) Hypercholesterolemia: -- Continue Simvastatin 40 mg daily. (7) halfway current use of anticoagulant: -- For DVT's and Pulmonary Emboli. -- GI Bleed requires that we hold this medication for the time being. History of Present Illness Chief Complaint: -- GI Bleed. -- Weakness. -- Fall. Primary Care Provider: Bacilio Garcia MD Mrs. Bee is a 70 year female with a history of Hypertension, Dyslipidemia, Metastatic Colon Cancer to Lung s/p Right Upper Lobectomy (currently on Avastin and 5FU last Tx 12/11/2020), DVT / Pulmonary Emboli, Obesity, Restrictive Lung Disease, COPD, Chronic Respiratory Failure, Osteopenia, Anemia/Pancytopenia secondary to chemotherapy, previous Seizure secondary to metabolic disorder, and Prior GI Bleeding from 4 Angiodysplastic Lesions in the [place] (09/2020) -- who was brought to the ER via EMS after sustaining a Fall secondary to Generalized Weakness/ Worsening Anemia/ and GI Blood Loss. Patient states that she had a normal bowel movement on 12/08/2020 but did not move her bowels again until 12/12/2020 - it was a large BM and she had hematochezia beginning with this BM. She has continued to experience approximately 3 bloody bowel movements per day through the weekend. Patient states this morning when she fell that she fell down onto her knees and she was feeling so weak, she was unable to get up. She called her on the phone who then activated EMS to assist. Patient did not sustain any injuries with this fall and she did not have any syncope or near syncope that contributed to her fall Otherwise, patient admits to a poor appetite in general, but her appetite is worse than usual over the past week or so -- food does not appeal to her and she describes nausea without vomiting recently. She denies any focal abdominal pain, but she does admit to rectal discomfort constantly. Current Hgb is 9.2 g/dL -- she normally has a Hgb in the 10.0 to 10.5 g/dL range. Allergies Allergy/AdvReac Type Severity Reaction Status Date / Time oxaliplatin Allergy Severe Anaphylaxis Verified 12/15/20 08:38 thiopental Allergy Intermediate INCREASED Verified 12/15/20 08:38 BLEEDING WITH WISDOM TEETH SURG meperidine AdvReac Mild N/V Verified 12/15/20 08:38 morphine AdvReac Mild N/V Verified 12/15/20 08:38 Home Medications Medication Instructions Recorded Confirmed Type albuterol sulfate 2 puff INHALATION Q6 PRN 08/07/18 12/15/20 History multivitamin 1 tab PO QAM 08/07/18 12/15/20 History ascorbic acid (vitamin C) [Vitamin 500 mg PO BIDM 11/02/19 12/15/20 History C] cholecalciferol (vitamin D3) 2,000 unit PO BID 11/02/19 12/15/20 History [Vitamin D3] sertraline 50 mg tablet 50 mg PO HS #90 tab 06/02/20 12/15/20 Rx beclomethasone dipropionate 80 1 inh INHALATION BID #34.8 g 07/14/20 12/15/20 Rx mcg/actuation HFA breath activated aerosol omeprazole 40 mg capsule,delayed 40 mg PO QAM #90 cap 08/20/20 12/15/20 Rx release metoprolol tartrate 50 mg tablet 50 mg PO TID #90 tab 09/08/20 12/15/20 Rx ipratropium 0.5 mg-albuterol 3 mg 3 ml INHALATION Q4H PRN #540 ml 09/11/20 12/15/20 Rx (2.5 mg base)/3 mL nebulization soln Vitamin E 180mg 180 mg PO QDD 10/12/20 12/15/20 History colestipol [Colestid] 1 g PO QDD 10/12/20 12/15/20 History cyanocobalamin (vitamin B-12) 1,000 mcg PO QDL 10/12/20 12/15/20 History [Vitamin B-12] levothyroxine 150 mcg PO QAM 10/12/20 12/15/20 History magnesium oxide 400 mg PO QAM 10/12/20 12/15/20 History pyridoxine (vitamin B6) [Vitamin 100 mg PO QDL 10/12/20 12/15/20 History B-6] simvastatin 40 mg PO HS 10/12/20 12/15/20 History miscellaneous throat product 15 ml PO BID PRN 10/13/20 12/15/20 History potassium gluconate 595 mg PO BID 10/13/20 12/15/20 History ferrous sulfate 325 mg PO BID #60 tab 10/16/20 12/15/20 Rx fluticasone furoate 100 1 inh INHALATION DAILY 10/22/20 12/15/20 History mcg/actuation blister powder for inhalation apixaban [Eliquis] 5 mg PO BID 12/15/20 12/15/20 History Past Med/Surg History Medical History Acute GI bleeding Asthma Bacteremia Bilateral pulmonary embolism hx of 2012--reason for eliquis daily (had pneumonia right before and pt states she was not moving much) Candidiasis of intestine Chemotherapy adverse reaction Chronic diastolic congestive heart failure Colon cancer metastasized to lung (09/18/08) "Adenocarcinoma of the colon with lung metastasis diagnosed in 2007 Status post right lobectomy 07/10/2008 Status post colonoscopy and biopsy 09/18/2008 revealing the colon lesion. Status post resection. This was followed by chemotherapy. Status post left upper lobe wedge resection 08/24/2011 due to metastasis Status post stereotactic radiation therapy in 2011 Completed chemotherapy in 2014 Status post wedge resection with Dr. navarrete 2015 Status post hypo-fractionated radiation therapy in 2015 PET/CT 08/24/2017 revealing metabolic activity of the right hilum. Status post completion of radiation therapy 10/24/2017 utilizing VMAT. PET/CT May 29, 2018 persistent uptake in the right paratracheal mass and suspicious changes for progression. Plan for systemic chemotherapy with irinotecan and Erbitux" On 11/02/17 11:11 Meaghan Alves wrote "Adenocarcinoma of the colon with lung metastasis diagnosed in 2007 Status post right lobectomy 07/10/2008 Status post colonoscopy and biopsy 09/18/2008 revealing the colon lesion. Status post resection. This was followed by chemotherapy. Status post left upper lobe wedge resection 08/24/2011 due to metastasis Status post stereotactic radiation therapy in 2011 Completed chemotherapy in 2014 Status post wedge resection with Dr. navarrete 2015 Status post hypo-fractionated radiation therapy in 2016 PET/CT 08/24/2017 revealing metabolic activity of the right hilum. Status post completion of radiation therapy 10/24/2017 utilizing VMAT." On 09/13/17 09:28 Meaghan Alves wrote "Adenocarcinoma of the colon with lung metastasis diagnosed in 2007 Status post right lobectomy 07/10/2008 Status post colonoscopy and biopsy 09/18/2008 revealing the colon lesion. Status post resection. This was followed by chemotherapy. Status post left upper lobe wedge resection 08/24/2011 due to metastasis Status post stereotactic radiation therapy in 2011 Completed chemotherapy in 2014 Status post wedge resection with Dr. navarrete 2015 Status post hypo-fractionated radiation therapy in 2016 PET/CT 08/24/2017 revealing metabolic activity of the right hilum." Depression Depression Diverticulosis of colon DVT, lower extremity left leg, same time as PE Elevated lactic acid level Essential hypertension GERD (gastroesophageal reflux disease) History of anesthesia reaction difficulty waking at times as well as hx of waking up during sx (woke up during port placement) History of chemotherapy History of gastric ulcer History of immunocompromised state History of pulmonary embolus (PE) History of radiation therapy HLD (hyperlipidemia) Hyperlipidemia Hypertension Hypothyroid Hypothyroidism Hypoxia Infection due to Port-A-Cath Morbid obesity with BMI of 40.0-44.9, adult Neutropenia On anticoagulant therapy eliquis daily On home oxygen therapy 2L N/C at hs Radiation pneumonitis Seizures due to metabolic disorder x2-- one d/t medication anaphylaxis, and pt states second d/t low magnesium in 09/2019 Septicemia due to coagulase-negative staphylococcal infection Surgical History H/O: hysterectomy History of bilateral tubal ligation History of bladder suspension procedure History of bronchoscopy x2-3 History of cholecystectomy open 04/2020 History of colon surgery d/t colon cancer History of colonoscopy with polypectomy History of esophagogastroduodenoscopy (EGD) History of lobectomy of lung right upper lobe removed 06/2008 @ [facility] d/t colon cancer metastasis to lung History of lung surgery wedge resection of left lung d/t cancer History of radioactive iodine thyroid ablation History of removal of cyst off finger History of tonsillectomy History of vascular access device x2--A port in place right side of chest History of ventral hernia repair History of wisdom tooth extraction Family History Mother , early 80s of thyroid cancer Thyroid cancer Heart disease Family history of reaction to anesthesia at age 80, took 2 days to wake after thyroidectomy Father , age 81 of gangrene complications No problems noted. 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 drives. Seatbelt Use: always Assistive Devices: Glasses Review of Systems Review of Systems: All systems reviewed & are unremarkable except as noted in Subjective Physical Exam Physical Exam: General: Patient is in no acute distress. HEENT: Head is atraumatic, normocephalic. EOMs intact without nystagmus. Sclerae anicteric. Facies symmetric. No perioral cyanosis. Neck: No JVD. Carotid upstrokes +2 bilaterally without obvious bruits. Chest and Lungs: Diminished breath sounds in mid right lung gibbs, but otherwise clear CVS: S1 and S2 are regular without obvious murmurs, gallops, or rubs. PMI is nonpalpable. No lifts, heaves, or thrills. No abdominal aortic or renal bruits. Abdominal Exam: Bowel sounds present. No masses, organomegaly, or tenderness. Rectal Exam: As performed by ER staff -- gross blood present. Extremities: No clubbing, cyanosis, or edema. Intact posterior tibial and radial pulses bilaterally. Neurologic Exam: Patient is awake, alert, and oriented. Answers questions appropriately. Speech is clear. Normal movement in all 4 extremities. EKG 12/15/2020: -- NSR at 87 bpm. -- Normal tracing. Retail Manager shows a normal sinus rhythm. Results & Data Results & Data ([facility]) Vital Signs (Past 12 Hours) Vital Signs Temp Pulse Resp BP Pulse Ox 12/15/20 08:30 90 11 L 100/72 98 12/15/20 08:06 90 13 95/60 L 96 12/15/20 08:02 98 12/15/20 07:35 36.8 C 93 H 19 132/72 93 Laboratory Results Laboratory Results - last 24 hr 12/15/20 12/15/20 12/15/20 08:24 08:24 08:24 WBC 7.81 RBC 2.49 L Hgb 9.2 L Hct 27.4 L MCV 110.0 H MCH 36.9 H MCHC 33.6 RDW Std Deviation 77.6 H RDW Coeff of Marcell 19.5 H Plt Count 82 L MPV 12.6 H Immature Gran % (Auto) 4.2 Neut % (Auto) 81.6 Lymph % (Auto) 12.4 [place] % (Auto) 1.3 Eos % (Auto) 0.4 Baso % (Auto) 0.1 Neut # (Auto) 6.37 Lymph # (Auto) 0.97 L [place] # (Auto) 0.10 L Eos # (Auto) 0.03 Baso # (Auto) 0.01 Immature Gran # (Auto) 0.33 H Toxic Granulation 1+ Platelet Estimate Decreased L Macrocytosis Present Ovalocytes 1+ PT 11.7 INR 1.1 APTT 35.6 H PTT Ratio 1.3 Sodium Potassium Chloride Carbon Dioxide Anion Gap BUN Creatinine Est Cr Clr Drug Dosing Est GFR ( Amer) Est GFR (Non-Af Amer) BUN/Creatinine Ratio Glucose Lactate Calcium Magnesium Total Bilirubin AST ALT Alkaline Phosphatase Troponin I Total Protein Albumin Globulin Albumin/Globulin Ratio Blood Type O Positive Antibody Screen NEGATIVE 12/15/20 12/15/20 08:24 08:24 WBC RBC Hgb Hct MCV MCH MCHC RDW Std Deviation RDW Coeff of Marcell Plt Count MPV Immature Gran % (Auto) Neut % (Auto) Lymph % (Auto) [place] % (Auto) Eos % (Auto) Baso % (Auto) Neut # (Auto) Lymph # (Auto) [place] # (Auto) Eos # (Auto) Baso # (Auto) Immature Gran # (Auto) Toxic Granulation Platelet Estimate Macrocytosis Ovalocytes PT INR APTT PTT Ratio Sodium 139 Potassium 4.6 Chloride 108 H Carbon Dioxide 23 Anion Gap 9.0 BUN 19 H Creatinine 1.44 H Est Cr Clr Drug Dosing 43.1 Est GFR ( Amer) 43.1 Est GFR (Non-Af Amer) 37.2 BUN/Creatinine Ratio 13.0 Glucose 98 Lactate 1.7 Calcium 8.9 Magnesium 2.4 Total Bilirubin 0.4 AST 21 ALT 21 Alkaline Phosphatase 106 Troponin I < 0.015 Total Protein 5.8 L Albumin 3.1 L Globulin 2.7 Albumin/Globulin Ratio 1.2 Blood Type Antibody Screen Diagnostic Findings CTA of Chest 12/12/2020: 1. No evidence of pulmonary emboli. 2. Increased size of a right apical subpleural pulmonary nodule suggestive of metastasis now measuring 1.7 cm. 3. Unchanged size of the previously described right suprahilar nodule. 4. Chronic postoperative changes of the right hemithorax. CXR 12/15/2020: -- No significant change from the prior study. -- Postsurgical changes within the right hemithorax with volume loss, elevation of the right hemidiaphragm, and a persistent 5 cm masslike opacity within the right perihilar region. Medications Administered Hydromorphone HCl (Hydromorphone Inj 0.5 Mg/0.5 Ml Syr) 0.5 mg IV Q15M PRN PRN Reason: Pain Last Admin: 12/15/20 08:30 Dose: 0.5 mg Documented by: [id number] Sodium Chloride (Nss) 250 mls @ 30 mls/hr IV .Q8H20M [facility] Stop: 01/14/21 09:44 Last Admin: 12/15/20 09:28 Dose: 30 mls/hr Documented by: [id number] Discontinued Medications Sodium Chloride (Nss 1000ml) 1,000 mls @ 999 mls/hr IV .Q1H1M [facility] Stop: 12/15/20 09:15 Last Infusion: 12/15/20 09:27 Dose: 0 mls/hr Documented by: [id number] Admin: 12/15/20 08:26 Dose: 999 mls/hr Documented by: [id number] Code Status & VTE Plan Code Status Conditional Code Status VTE Prophylaxis Plan VTE Prophylaxis will be ordered: Yes Reason for no VTE drug order: Contraindicated Supervising Physician Co-Signing Physician Notes Patient seen and examined with Oumar DUMONT. I agree with his exam findings, review of systems, assessment and plan. I personally reviewed the lab work and imaging as well. patient doing well, no acute issues d/w GI, plan for colonoscopy, will need adequate prep - Acute GI bleeding, red blood per rectum, suspect colonic source plan for colonoscopy will follow Hb and transfuse as needed PG Care Time/CCT Total # of Minutes Spent Total Time Spent with Patient: Total time spent is greater than 50% in coordination of care (as documented) at patient's floor/unit and/or counseling patient:40 Coding Level of Care Code 15733 Initial Inpt Care Lvl 3 Diagnoses GI bleed K92.2 GI bleed type/associated pathology: unspecified gastrointestinal hemorrhage type Anemia D64.9 Anemia type: unspecified type Weakness R53.1 COPD (chronic obstructive pulmonary disease) J44.9 Restrictive lung disease J98.4 Hypercholesterolemia E78.00 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
--- NOTE | 2020-12-15 12:39 | Gastrointestinal Consultation ---
Date of Consultation December 15, 2020 Assessment & Plan (1) GI bleed: (2) Anemia: BRBPR in the setting of acute constipation. DDx: most likely hemorrhoids vs diverticular. Also consideration of recurrent bleeding from known AVMs vs other. 1. Clear liquid diet today. 2. COVID-19 testing now. 3. Golytely bowel preparation to begin this evening given renal insufficiency. 4. Colonoscopy by Dr. Kapoor tomorrow for further evaluation. 5. Continue to trend H&H and transfuse as appropriate. 6. Additional recommendations will be made pending results of testing. Thank you for allowing us to participate in the care of this patient. If you have any questions or concerns, please do not hesitate to contact us. Supervising Physician Co-Signing Physician Notes I personally evaluated the patient and agree with the findings as documented by SHERRY Maher Exam: abd: soft, nt, nd History of Present Illness Reason for Consultation: Hematochezia Requesting Physician: Oumar Lofton PA-C Attending Physician: Dr. Hussein History of Present Illness Patient is a very pleasant 70 year-old female with a history of GIB and recently diagnosed cecal AVM requiring hemostasis by Dr. Marr approximately two months ago. At that time, risk of rebleeding was felt to be moderate to high. Patient states she had been doing well since the procedure, however, and was having no s/s of bleeding until three days ago. At that time, she reports she had had 5 days of constipation and had not passed any bms since 12/07/2020. At the time the patient did have a bm on on Tuesday, she was passing bright red blood per rectum. She states the bleeding was different than her prior lower GI bleeding as the previous bleeding event the blood was more dark. Most recent GIB is in the setting of new onset of significant hemorrhoids which she states are also new. H&H on arrival was reviewed and noted to be 9.2/27.4 which is only a slight drop from her baseline of ~10. Denies any n/v, abdominal pain, syncope, d izziness, CP, SOB, LARSEN or other complaints. Allergies Allergy/AdvReac Type Severity Reaction Status Date / Time oxaliplatin Allergy Severe Anaphylaxis Verified 12/15/20 08:38 thiopental Allergy Intermediate INCREASED Verified 12/15/20 08:38 BLEEDING WITH WISDOM TEETH SURG meperidine AdvReac Mild N/V Verified 12/15/20 08:38 morphine AdvReac Mild N/V Verified 12/15/20 08:38 Home Medications Medication Instructions Recorded Confirmed Type albuterol sulfate 2 puff INHALATION Q6 PRN 08/07/18 12/15/20 History multivitamin 1 tab PO QAM 08/07/18 12/15/20 History ascorbic acid (vitamin C) [Vitamin 500 mg PO BIDM 11/02/19 12/15/20 History C] cholecalciferol (vitamin D3) 2,000 unit PO BID 11/02/19 12/15/20 History [Vitamin D3] sertraline 50 mg tablet 50 mg PO HS #90 tab 06/02/20 12/15/20 Rx beclomethasone dipropionate 80 1 inh INHALATION BID #34.8 g 07/14/20 12/15/20 Rx mcg/actuation HFA breath activated aerosol omeprazole 40 mg capsule,delayed 40 mg PO QAM #90 cap 08/20/20 12/15/20 Rx release metoprolol tartrate 50 mg tablet 50 mg PO TID #90 tab 09/08/20 12/15/20 Rx ipratropium 0.5 mg-albuterol 3 mg 3 ml INHALATION Q4H PRN #540 ml 09/11/20 12/15/20 Rx (2.5 mg base)/3 mL nebulization soln Vitamin E 180mg 180 mg PO QDD 10/12/20 12/15/20 History colestipol [Colestid] 1 g PO QDD 10/12/20 12/15/20 History cyanocobalamin (vitamin B-12) 1,000 mcg PO QDL 10/12/20 12/15/20 History [Vitamin B-12] levothyroxine 150 mcg PO QAM 10/12/20 12/15/20 History magnesium oxide 400 mg PO QAM 10/12/20 12/15/20 History pyridoxine (vitamin B6) [Vitamin 100 mg PO QDL 10/12/20 12/15/20 History B-6] simvastatin 40 mg PO HS 10/12/20 12/15/20 History miscellaneous throat product 15 ml PO BID PRN 10/13/20 12/15/20 History potassium gluconate 595 mg PO BID 10/13/20 12/15/20 History ferrous sulfate 325 mg PO BID #60 tab 10/16/20 12/15/20 Rx fluticasone furoate 100 1 inh INHALATION DAILY 10/22/20 12/15/20 History mcg/actuation blister powder for inhalation apixaban [Eliquis] 5 mg PO BID 12/15/20 12/15/20 History Patient History Medical History Acute GI bleeding Asthma Bacteremia Bilateral pulmonary embolism hx of 2012--reason for eliquis daily (had pneumonia right before and pt states she was not moving much) Candidiasis of intestine Chemotherapy adverse reaction Chronic diastolic congestive heart failure Colon cancer metastasized to lung (09/18/08) "Adenocarcinoma of the colon with lung metastasis diagnosed in 2007 Status post right lobectomy 07/10/2008 Status post colonoscopy and biopsy 09/18/2008 revealing the colon lesion. Status post resection. This was followed by chemotherapy. Status post left upper lobe wedge resection 08/24/2011 due to metastasis Status post stereotactic radiation therapy in 2011 Completed chemotherapy in 2014 Status post wedge resection with Dr. navarrete 2015 Status post hypo-fractionated radiation therapy in 2015 PET/CT 08/24/2017 revealing metabolic activity of the right hilum. Status post completion of radiation therapy 10/24/2017 utilizing VMAT. PET/CT May 29, 2018 persistent uptake in the right paratracheal mass and suspicious changes for progression. Plan for systemic chemotherapy with irinotecan and Erbitux" On 11/02/17 11:11 Meaghan Alves wrote "Adenocarcinoma of the colon with lung metastasis diagnosed in 2007 Status post right lobectomy 07/10/2008 Status post colonoscopy and biopsy 09/18/2008 revealing the colon lesion. Status post resection. This was followed by chemotherapy. Status post left upper lobe wedge resection 08/24/2011 due to metastasis Status post stereotactic radiation therapy in 2011 Completed chemotherapy in 2014 Status post wedge resection with Dr. navarrete 2016 Status post hypo-fractionated radiation therapy in 2015 PET/CT 08/24/2017 revealing metabolic activity of the right hilum. Status post completion of radiation therapy 10/24/2017 utilizing VMAT." On 09/13/17 09:28 Meaghan Alves wrote "Adenocarcinoma of the colon with lung metastasis diagnosed in 2007 Status post right lobectomy 07/10/2008 Status post colonoscopy and biopsy 09/18/2008 revealing the colon lesion. Status post resection. This was followed by chemotherapy. Status post left upper lobe wedge resection 08/24/2011 due to metastasis Status post stereotactic radiation therapy in 2011 Completed chemotherapy in 2014 Status post wedge resection with Dr. navarrete 2015 Status post hypo-fractionated radiation therapy in 2015 PET/CT 08/24/2017 revealing metabolic activity of the right hilum." Depression Depression Diverticulosis of colon DVT, lower extremity left leg, same time as PE Elevated lactic acid level Essential hypertension GERD (gastroesophageal reflux disease) History of anesthesia reaction difficulty waking at times as well as hx of waking up during sx (woke up during port placement) History of chemotherapy History of gastric ulcer History of immunocompromised state History of pulmonary embolus (PE) History of radiation therapy HLD (hyperlipidemia) Hyperlipidemia Hypertension Hypothyroid Hypothyroidism Hypoxia Infection due to Port-A-Cath Morbid obesity with BMI of 40.0-44.9, adult Neutropenia On anticoagulant therapy eliquis daily On home oxygen therapy 2L N/C at hs Radiation pneumonitis Seizures due to metabolic disorder x2-- one d/t medication anaphylaxis, and pt states second d/t low magnesium in 09/2019 Septicemia due to coagulase-negative staphylococcal infection Surgical History H/O: hysterectomy History of bilateral tubal ligation History of bladder suspension procedure History of bronchoscopy x2-3 History of cholecystectomy open 04/2020 History of colon surgery d/t colon cancer History of colonoscopy with polypectomy History of esophagogastroduodenoscopy (EGD) History of lobectomy of lung right upper lobe removed 06/2008 @ [facility] d/t colon cancer metastasis to lung History of lung surgery wedge resection of left lung d/t cancer History of radioactive iodine thyroid ablation History of removal of cyst off finger History of tonsillectomy History of vascular access device x2--A port in place right side of chest History of ventral hernia repair History of wisdom tooth extraction Family History Mother , early 80s of thyroid cancer Thyroid cancer Heart disease Family history of reaction to anesthesia at age 80, took 2 days to wake after thyroidectomy Father , age 81 of gangrene complications No problems noted. 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 drives. Seatbelt Use: always Assistive Devices: None Review of Systems Review of Systems: All systems reviewed & are unremarkable except as noted in HPI & below Physical Exam Constitutional: WD/WN, vitals as above well developed and well nourished Respiratory: normal respiratory effort, lungs clear to auscultation Cardiovascular: RRR, no murmur, no edema Gastrointestinal (Abdomen): normal bowel sounds, soft, nontender, no hepatosplenomegaly Psychiatric: A+Ox3, euthymic affect Results & Data ([facility]) Vital Signs (Past 12 Hours) Vital Signs Temp Pulse Resp BP Pulse Ox 12/15/20 12:20 95 H 18 118/68 95 12/15/20 12:13 86 12 98 12/15/20 12:01 89 15 96 12/15/20 12:00 86 12 95 12/15/20 11:31 85 12 100 12/15/20 11:30 84 12 106/58 L 100 12/15/20 11:00 86 15 86/55 L 100 12/15/20 10:30 85 13 100/55 L 100 12/15/20 10:00 87 16 90/62 L 99 12/15/20 09:30 86 22 88/56 L 99 12/15/20 09:01 85 15 93 12/15/20 09:00 85 13 94/52 L 94 12/15/20 08:30 90 11 L 100/72 98 12/15/20 08:06 90 13 95/60 L 96 12/15/20 08:02 98 12/15/20 07:35 36.8 C 93 H 19 132/72 93 Laboratory Results Abnormal lab results 12/15/20 12/15/20 12/15/20 Range/Units 08:24 08:24 08:24 RBC 2.49 L (4.2-5.4) M/uL Hgb 9.2 L (12.0-16.0) g/dL Hct 27.4 L (37-47) % MCV 110.0 H (80-100) fL MCH 36.9 H (25-34) pg RDW Std Deviation 77.6 H (36.4-46.3) fL RDW Coeff of Marcell 19.5 H (11.5-14.5) % Plt Count 82 L (130-400) K/uL MPV 12.6 H (7.4-10.4) fL Lymph # (Auto) 0.97 L (1.2-3.4) K/uL [place] # (Auto) 0.10 L (0.11-0.59) K/uL Immature Gran # (Auto) 0.33 H (0.00-0.02) K/uL Platelet Estimate Decreased L (Normal) APTT 35.6 H (21.0-31.0) Seconds Chloride 108 H (98-107) mmol/L BUN 19 H (7-18) mg/dl Creatinine 1.44 H (0.6-1.2) mg/dl Total Protein 5.8 L (6.4-8.2) gm/dl Albumin 3.1 L (3.4-5.0) gm/dl PG Care Time/CCT Total # of Minutes Spent Total Time Spent with Patient: Total time spent is greater than 50% in coordination of care (as documented) at patient's floor/unit and/or counseling patient: Coding Level of Care Code 78634 Initial Inpt Care Lvl 3 Diagnoses GI bleed K92.2 GI bleed type/associated pathology: unspecified gastrointestinal hemorrhage type Anemia D64.9 Anemia type: unspecified type (1) GI bleed GI bleed type/associated pathology: unspecified gastrointestinal hemorrhage type Qualified Code(s): K92.2 - Gastrointestinal hemorrhage, unspecified (2) Anemia Anemia type: unspecified type Qualified Code(s): D64.9 - Anemia, unspecified
[2020-12-15] MEDS ORDERED: FLUTICASONE FUROATE 100MCG 14 PUFFS/INHALER INH SCH (13:25)
[2020-12-15] MEDS ORDERED: NON-FORMULARY MEDICATION (Potassium Gluconate 595 mg (99 mg) Tablet) PO SCH (13:25)
[2020-12-15] MEDS ORDERED: ACETAMINOPHEN 325 MG TAB PO PRN (13:25)
[2020-12-15] MEDS ORDERED: ALBUTEROL HFA 8 GM INHALER INH PRN (13:25)
[2020-12-15] MEDS ORDERED: ZOLPIDEM TARTRATE 5 MG TAB PO PRN (13:25)
[2020-12-15] MEDS ORDERED: MAGNESIUM HYDROXIDE SUSP 30 ML UDC PO PRN (13:25)
[2020-12-15] MEDS ORDERED: ALBUT/IPRATROP 3MG/0.5MG NEB 3 ML VIAL INH PRN (13:25)
[2020-12-15] MEDS: PYRIDOXINE HCL 50 MG TAB PO SCH (14:42)
[2020-12-15] MEDS: CYANOCOBALAMIN 500 MCG TABLET (VITAMIN B-12) PO SCH (14:42)
[2020-12-15] MEDS: METOPROLOL TARTRATE 50 MG TAB PO SCH ×2 (14:42→20:08)
[2020-12-15 16:21] LABS: Hemoglobin 8.7 g/dL (12.0-16.0)
[2020-12-15] MEDS: ASCORBIC ACID 500 MG TAB PO SCH (17:10)
[2020-12-15] MEDS: COLESTIPOL HCL 1 GM TAB PO SCH (17:10)
[2020-12-15] MEDS: TOCOPHERYL, DL-ALPHA 100 UNITS CAP PO SCH (17:10)
--- NOTE | 2020-12-15 18:28 | Electrocardiogram Report ---
Test Reason : Blood Pressure : / mmHG Vent. Rate : 087 BPM Atrial Rate : 087 BPM P-R Int : 154 ms QRS Dur : 088 ms QT Int : 370 ms P-R-T Axes : 010 051 048 degrees QTc Int : 445 ms Normal sinus rhythm Normal ECG When compared with ECG of 13-OCT-2020 14:43, No significant change was found Confirmed by Albert Flor ([id number]) on 12/15/2020 6:28:08 PM Referred By: REFERRED SELF Confirmed By:Albert Flor
[2020-12-15] MEDS: LAVAGE SOLUTION 4000ML PO SCH (18:35)
[2020-12-15] MEDS: ONDANSETRON INJ 2 MG/ML 2 ML VIAL IV PRN (19:20)
[2020-12-15] MEDS: CHOLECALCIFEROL 1,000 UNITS 25 MCG TAB PO SCH (20:08)
[2020-12-15] MEDS: SERTRALINE HCL 50 MG TABLET PO SCH (20:08)
[2020-12-15] MEDS: FLUTICASONE FUROATE 100MCG 14 PUFFS/INHALER INH SCH (20:08)
[2020-12-15] MEDS: SIMVASTATIN 40 MG TAB PO SCH (20:08)
[2020-12-15] MEDS: FERROUS SULFATE 325 MG TAB PO SCH (20:09)
[2020-12-16] MEDS: SODIUM CHLORIDE 0.9% 250 ML IV SCH ×3 (02:57→19:54)
[2020-12-16] MEDS: LEVOTHYROXINE SODIUM 150 MCG TABLET PO SCH (06:36)
[2020-12-16 06:51] LABS: Calcium 8.5 mg/dl (8.5-10.1); Creatinine Clr Calc Pharmacy 55.4 ml/min; Est GFR (African American) 58.5; Est GFR (Non-African American) 50.4; Potassium 4.4 mmol/L (3.5-5.1)
--- NOTE | 2020-12-16 08:22 | History & Physical Bridge Note ---
Date of Service December 16, 2020 History & Physical Bridge Note I have examined the patient, reviewed the History & Physical and in the interval since the performance of the History & Physical I have noted the following changes of clinical significance: no changes noted proceed with colonoscopy. risks/benefits and procedure discussed with patient, who agrees to proceed
[2020-12-16] MEDS: FERROUS SULFATE 325 MG TAB PO SCH ×2 (08:50→20:27)
[2020-12-16] MEDS: METOPROLOL TARTRATE 50 MG TAB PO SCH ×3 (08:50→20:28)
[2020-12-16] MEDS: ASCORBIC ACID 500 MG TAB PO SCH ×2 (08:50→16:28)
[2020-12-16] MEDS: MULTIVITAMIN TAB PO SCH (08:51)
[2020-12-16] MEDS: CHOLECALCIFEROL 1,000 UNITS 25 MCG TAB PO SCH ×2 (08:51→20:27)
[2020-12-16] MEDS: MAGNESIUM OXIDE 400 MG TAB PO SCH (08:51)
[2020-12-16] MEDS: PANTOprazole 40 MG TAB PO SCH (08:51)
[2020-12-16] MEDS: ONDANSETRON INJ 2 MG/ML 2 ML VIAL IV PRN ×2 (10:45→18:03)
[2020-12-16 11:32] LABS: Hemoglobin 8.3 g/dL (12.0-16.0)
--- NOTE | 2020-12-16 13:12 | Gastroenterology Progress Note ---
Date of Service December 16, 2020 Assessment & Plan (1) GI bleed: (2) Anemia: BRBPR in the setting of acute constipation. DDx: most likely hemorrhoids vs diverticular. Also consideration of recurrent bleeding from known AVMs vs other. 1. Continue clear liquid diet today and tomorrow. 2. Per Dr. Kapoor, will give 2 fleet enemas this evening. 3. Complete Golytely bowel preparation this evening. 4. Colonoscopy by Dr. Kapoor for further evaluation. 5. Continue to trend H&H and transfuse as appropriate. 6. Additional recommendations will be made pending results of testing. Thank you for allowing us to participate in the care of this patient. If you have any questions or concerns, please do not hesitate to contact us. Admission and Anticipated Discharge Date Admission Date: December 15, 2020 Supervising Physician Co-Signing Physician Notes I personally evaluated the patient and agree with the findings as documented by SHERRY Maher did not complete prep today, will plan for colonoscopy on 12/18 Subjective Patient did not complete bowel preparation last evening. Procedure was cancelled. She reports some GI upset from the preparation but no other GI complaints. She is currently consuming her bowel prep and has completed just over 1/3. H&H has dropped very slightly overnight. 8.3/26.0 today. Review of Systems Gastrointestinal: as per Subjective / HPI Physical Exam Constitutional: WD/WN, vitals as above well developed and well nourished Psychiatric: A+Ox3, euthymic affect Results & Data Results & Data ([facility]) Vital Signs (Past 12 Hours) Vital Signs Temp Pulse Resp BP Pulse Ox 12/16/20 07:47 36.8 C 86 18 118/76 98 Laboratory Results Abnormal lab results 12/15/20 12/16/20 12/16/20 Range/Units 16:00 05:30 11:18 Hgb 8.7 L 8.3 L (12.0-16.0) g/dL Hct 27.0 L 26.0 L (37-47) % Chloride 111 H (98-107) mmol/L PG Care Time/CCT Total # of Minutes Spent Total Time Spent with Patient: Total time spent is greater than 50% in coordination of care (as documented) at patient's floor/unit and/or counseling patient: Coding Level of Care Code 71961 Subseq Hosp Care Lvl 3 Diagnoses GI bleed K92.2 GI bleed type/associated pathology: unspecified gastrointestinal hemorrhage type Anemia D64.9 Anemia type: unspecified type (1) GI bleed GI bleed type/associated pathology: unspecified gastrointestinal hemorrhage type Qualified Code(s): K92.2 - Gastrointestinal hemorrhage, unspecified (2) Anemia Anemia type: unspecified type Qualified Code(s): D64.9 - Anemia, unspecified
[2020-12-16] MEDS: CYANOCOBALAMIN 500 MCG TABLET (VITAMIN B-12) PO SCH (13:34)
[2020-12-16] MEDS: PYRIDOXINE HCL 50 MG TAB PO SCH (13:34)
[2020-12-16] MEDS: COLESTIPOL HCL 1 GM TAB PO SCH (16:28)
[2020-12-16] MEDS: TOCOPHERYL, DL-ALPHA 100 UNITS CAP PO SCH (16:28)
[2020-12-16] MEDS ORDERED: SOD PHOSPHATE/SOD BIPHOSPHATE ENEMA 132 ML BTL PR ONE ×3 (18:00→19:00)
[2020-12-16] MEDS: FLUTICASONE FUROATE 100MCG 14 PUFFS/INHALER INH SCH (20:23)
[2020-12-16] MEDS: SERTRALINE HCL 50 MG TABLET PO SCH (20:27)
[2020-12-16] MEDS: SIMVASTATIN 40 MG TAB PO SCH (20:27)
[2020-12-16] MEDS: LAVAGE SOLUTION 4000ML PO SCH (21:41)
--- NOTE | 2020-12-16 22:51 | Hospitalist Progress Note ---
Date of Service December 16, 2020 Assessment & Plan (1) GI bleed: Mrs. Bee is a 70 year female with a history of Hypertension, Dyslipidemia, Metastatic Colon Cancer to Lung s/p Right Upper Lobectomy (currently on Avastin and 5FU last Tx 12/11/2020), DVT / Pulmonary Emboli (chronically on Eliquis for her thromboembolic disease), Obesity, Restrictive Lung Disease, COPD, Chronic Respiratory Failure, Osteopenia, Anemia/Pancytopenia secondary to chemotherapy, previous Seizure secondary to metabolic disorder, and Prior GI Bleeding from 4 Angiodysplastic Lesions in the [place] (09/2020) -- who was brought to the ER via EMS after sustaining a Fall secondary to Generalized Weakness/ Worsening Anemia/ and GI Blood Loss. Patient states that she had a normal bowel movement on 12/08/2020 but did not move her bowels again until 12/12/2020 - it was a large BM and she had hematochezia beginning with this BM. She has continued to experience approximately 3 bloody bowel movements per day through the weekend. Patient states this morning when she fell that she fell down onto her knees and she was feeling so weak, she was unable to get up. She called her on the phone who then activated EMS to assist. Patient did not sustain any injuries with this fall and she did not have any syncope or near syncope that contributed to her fall Otherwise, patient admits to a poor appetite in general, but her appetite is worse than usual over the past week or so -- food does not appeal to her and she describes nausea without vomiting recently. She denies any focal abdominal pain, but she does admit to rectal discomfort constantly. Hb down to 8.3 this morning, no further signs of active bleeding no need for transfusion plan for colonoscopy on 12/18, can have a diet today continue to hold Eliquis for procedure (2) Weakness: -- Secondary to problems #1 and #2 PT/OT consults (3) COPD (chronic obstructive pulmonary disease): -- Continue usual inhalers. -- Duoneb nebulizer treatments as needed. (4) Restrictive lung disease: -- Continue usual inhalers. -- Duoneb nebulizer treatments as needed. (5) Hypercholesterolemia: -- Continue Simvastatin 40 mg daily. (6) correction current use of anticoagulant: -- For DVT's and Pulmonary Emboli. -- GI Bleed requires that we hold this medication for the time being. Admission and Anticipated Discharge Date Admission Date: December 15, 2020 Subjective patient doing better, Hb is stable, going through bowel prep no abdominal pain, no nausea/vomiting, no dyspnea d/w Dr. Kapoor, plan for colonoscopy on 12/18 tolerating diet, no other issues Review of Systems Review of Systems: All systems reviewed & are unremarkable except as noted in Subjective Gastrointestinal: + blood in stools (clearing up with bowel prep); no abdominal pain, no nausea and no vomiting Physical Exam Constitutional: well developed and + obese; no acute distress Neck: trachea midline, no thyromegaly Respiratory: normal respiratory effort, lungs clear to auscultation Cardiovascular: RRR, no murmur, no edema Gastrointestinal (Abdomen): normal bowel sounds, soft, nontender, no hepatosplenomegaly Musculoskeletal: no cyanosis or clubbing, extremities motor strength 5/5 Skin: no rashes, warm and dry Neurologic: patellar DTR's 2+ bilat, sensation intact and PERRL, EOMI, accommodation nl, no face palsy, no dysarthria Psychiatric: A+Ox3, euthymic affect Lymphatic: no cervical or axillary lymphadenopathy Results & Data Results & Data ([facility]) Vital Signs (Past 12 Hours) Vital Signs Temp Pulse Resp BP BP Pulse Ox 12/16/20 20:25 89 108/72 96 12/16/20 15:55 36.9 C 84 16 125/79 97 Laboratory Results Laboratory Results - last 24 hr 12/16/20 12/16/20 12/16/20 05:30 05:30 11:18 Hgb 8.3 L Hct 26.0 L Sodium 141 Potassium 4.4 Chloride 111 H Carbon Dioxide 23 Anion Gap 7.0 BUN 17 Creatinine 1.12 D Est Cr Clr Drug Dosing 55.4 Est GFR ( Amer) 58.5 Est GFR (Non-Af Amer) 50.4 BUN/Creatinine Ratio 15.0 Glucose 88 Calcium 8.5 Hepatitis C Ab Screen Neg Medications Administered Current Inpatient Medications Acetaminophen (Acetaminophen 325 Mg Tab) 650 mg PO Q4H PRN PRN Reason: pain/fever Stop: 01/14/21 13:24 Last Admin: 12/15/20 19:19 Dose: 650 mg Documented by: Al Hydrox/Mg Hydrox/Simethicone (Aluminum/Magnesium Susp 30 Ml Udc) 30 ml PO Q6H PRN PRN Reason: Dyspepsia Stop: 01/14/21 13:24 Albuterol (Albuterol Hfa 8 Gm Inhaler) 2 puffs INH Q6 PRN PRN Reason: Shortness Of Breath Or Wheezing Stop: 01/14/21 13:24 Albuterol (Albut/Ipratrop 3mg/0.5mg Neb 3 Ml Vial) 3 ml INH Q4H PRN PRN Reason: Shortness Of Breath Or Wheezing Stop: 01/14/21 13:24 Ascorbic Acid (Ascorbic Acid 500 Mg Tab) 500 mg PO BIDM [facility] Stop: 01/14/21 16:59 Last Admin: 12/16/20 16:28 Dose: 500 mg Documented by: Colestipol HCl (Colestipol Hcl 1 Gm Tab) 1 gm PO QDD [facility] Stop: 01/14/21 16:29 Last Admin: 12/16/20 16:28 Dose: 1 gm Documented by: Cyanocobalamin (Cyanocobalamin 500 Mcg Tablet (Vitamin B-12)) 1,000 mcg PO QDL [facility] Stop: 01/14/21 13:59 Last Admin: 12/16/20 13:34 Dose: Not Given Documented by: Ferrous Sulfate (Ferrous Sulfate 325 Mg Tab) 325 mg PO BID [facility] Stop: 01/14/21 20:59 Last Admin: 12/16/20 20:27 Dose: 325 mg Documented by: Fluticasone Furoate (Fluticasone Furoate 100mcg 14 Puffs/Inhaler) 1 puffs INH HS [facility] Stop: 01/14/21 20:59 Last Admin: 12/16/20 20:23 Dose: 1 puffs Documented by: Heparin Sodium (Porcine) (Heparin 100 Unit/Ml 5ml Flush) 5 ml FLUSH PRN PRN PRN Reason: Flush Stop: 01/15/21 01:31 Sodium Chloride (Nss) 250 mls @ 30 mls/hr IV .Q8H20M [facility] Stop: 01/14/21 09:44 Last Admin: 12/16/20 19:54 Dose: 30 mls/hr Documented by: Levothyroxine Sodium (Levothyroxine Sodium 150 Mcg Tablet) 150 mcg PO DAILYBB [facility] Stop: 01/15/21 06:29 Last Admin: 12/16/20 06:36 Dose: 150 mcg Documented by: Magnesium Hydroxide (Magnesium Hydroxide Susp 30 Ml Udc) 30 ml PO Q6H PRN PRN Reason: Constipation Stop: 01/14/21 13:24 Magnesium Oxide (Magnesium Oxide 400 Mg Tab) 400 mg PO QAM [facility] Stop: 01/15/21 08:59 Last Admin: 12/16/20 08:51 Dose: Not Given Documented by: Metoprolol Tartrate (Metoprolol Tartrate 50 Mg Tab) 50 mg PO TID [facility] Stop: 01/14/21 13:59 Last Admin: 12/16/20 20:28 Dose: 50 mg Documented by: Multivitamins (Multivitamin Tab) [facility] [place] Stop: 01/15/21 08:59 Last Admin: 12/16/20 08:51 Dose: Not Given Documented by: Ondansetron HCl (Ondansetron Inj 2 Mg/Ml 2 Ml Vial) 4 mg IV Q6H PRN PRN Reason: Nausea Stop: 01/14/21 13:24 Last Admin: 12/16/20 18:03 Dose: 4 mg Documented by: Pantoprazole Sodium (Pantoprazole 40 Mg Tab) 40 mg PO [facility] Stop: 01/15/21 08:59 Last Admin: 12/16/20 08:51 Dose: Not Given Documented by: Pyridoxine HCl (Pyridoxine Hcl 50 Mg Tab) 100 mg PO QDL [facility] Stop: 01/14/21 13:59 Last Admin: 12/16/20 13:34 Dose: 100 mg Documented by: Sertraline HCl (Sertraline Hcl 50 Mg Tablet) 50 mg PO [facility] Stop: 01/14/21 20:59 Last Admin: 12/16/20 20:27 Dose: 50 mg Documented by: Simvastatin (Simvastatin 40 Mg Tab) 40 mg PO [facility] Stop: 01/14/21 20:59 Last Admin: 12/16/20 20:27 Dose: 40 mg Documented by: Vitamin D (Cholecalciferol 1,000 Units 25 Mcg Tab) 2,000 units PO BID [facility] Stop: 01/14/21 20:59 Last Admin: 12/16/20 20:27 Dose: 2,000 units Documented by: Vitamin E (Tocopheryl, Dl-Alpha 100 Units Cap) 100 units PO QDD [facility] Stop: 01/14/21 16:29 Last Admin: 12/16/20 16:28 Dose: 100 units Documented by: Zolpidem Tartrate (Zolpidem Tartrate 5 Mg Tab) 5 mg PO HS PRN PRN Reason: Sleep Stop: 01/14/21 13:24 PG Care Time/CCT Total # of Minutes Spent Total Time Spent with Patient: Total time spent is greater than 50% in coordination of care (as documented) at patient's floor/unit and/or counseling patient: Coding Level of Care Code 77054 Subseq Hosp Care Lvl 2 Diagnoses GI bleed K92.2 GI bleed type/associated pathology: unspecified gastrointestinal hemorrhage type Weakness R53.1 COPD (chronic obstructive pulmonary disease) J44.9 Restrictive lung disease J98.4 Hypercholesterolemia E78.00 correction current use of anticoagulant Z79.01 (1) GI bleed GI bleed type/associated pathology: unspecified gastrointestinal hemorrhage type Qualified Code(s): K92.2 - Gastrointestinal hemorrhage, unspecified
[2020-12-17] MEDS: SODIUM CHLORIDE 0.9% 250 ML IV SCH ×3 (04:58→20:27)
[2020-12-17] MEDS: LEVOTHYROXINE SODIUM 150 MCG TABLET PO SCH (05:41)
[2020-12-17 08:27] LABS: BUN Creatinine Ratio 12.1 (10-20); Calcium 8.7 mg/dl (8.5-10.1); Creatinine Clr Calc Pharmacy 56.4 ml/min; Est GFR (African American) 59.7; Est GFR (Non-African American) 51.5; Potassium 3.9 mmol/L (3.5-5.1)
[2020-12-17] MEDS: FERROUS SULFATE 325 MG TAB PO SCH ×2 (08:52→20:36)
[2020-12-17] MEDS: MULTIVITAMIN TAB PO SCH (08:52)
[2020-12-17] MEDS: PANTOprazole 40 MG TAB PO SCH (08:52)
[2020-12-17] MEDS: MAGNESIUM OXIDE 400 MG TAB PO SCH (08:53)
[2020-12-17] MEDS: ASCORBIC ACID 500 MG TAB PO SCH ×2 (08:53→16:06)
[2020-12-17] MEDS: METOPROLOL TARTRATE 50 MG TAB PO SCH ×3 (08:53→20:36)
[2020-12-17] MEDS: CHOLECALCIFEROL 1,000 UNITS 25 MCG TAB PO SCH ×2 (08:53→20:36)
[2020-12-17] MEDS: ONDANSETRON INJ 2 MG/ML 2 ML VIAL IV PRN (09:48)
[2020-12-17] MEDS: CYANOCOBALAMIN 500 MCG TABLET (VITAMIN B-12) PO SCH (11:51)
[2020-12-17] MEDS: PYRIDOXINE HCL 50 MG TAB PO SCH (11:51)
[2020-12-17] MEDS: COLESTIPOL HCL 1 GM TAB PO SCH (16:07)
[2020-12-17] MEDS: TOCOPHERYL, DL-ALPHA 100 UNITS CAP PO SCH (16:07)
[2020-12-17] MEDS ORDERED: SOD PHOSPHATE/SOD BIPHOSPHATE ENEMA 132 ML BTL PR SCH (18:00)
[2020-12-17] MEDS: FLUTICASONE FUROATE 100MCG 14 PUFFS/INHALER INH SCH (20:35)
[2020-12-17] MEDS: SIMVASTATIN 40 MG TAB PO SCH (20:36)
[2020-12-17] MEDS: SERTRALINE HCL 50 MG TABLET PO SCH (20:36)
[2020-12-17] MEDS: ALUMINUM/MAGNESIUM SUSP 30 ML UDC PO PRN (21:02)
[2020-12-17] MEDS: HEPARIN 100 UNIT/ML 5ML FLUSH FLUSH PRN ×2 (21:03→21:40)
[2020-12-17 21:44] LABS: Hematocrit (blood only) 26.1 % (37-47); Hemoglobin 8.3 g/dL (12.0-16.0)
--- NOTE | 2020-12-17 22:38 | Hospitalist Progress Note ---
Date of Service December 17, 2020 Assessment & Plan (1) GI bleed: Mrs. Bee is a 70 year female with a history of Hypertension, Dyslipidemia, Metastatic Colon Cancer to Lung s/p Right Upper Lobectomy (currently on Avastin and 5FU last Tx 12/11/2020), DVT / Pulmonary Emboli (chronically on Eliquis for her thromboembolic disease), Obesity, Restrictive Lung Disease, COPD, Chronic Respiratory Failure, Osteopenia, Anemia/Pancytopenia secondary to chemotherapy, previous Seizure secondary to metabolic disorder, and Prior GI Bleeding from 4 Angiodysplastic Lesions in the [place] (09/2020) -- who was brought to the ER via EMS after sustaining a Fall secondary to Generalized Weakness/ Worsening Anemia/ and GI Blood Loss. Patient states that she had a normal bowel movement on 12/08/2020 but did not move her bowels again until 12/12/2020 - it was a large BM and she had hematochezia beginning with this BM. She has continued to experience approximately 3 bloody bowel movements per day through the weekend. Patient states this morning when she fell that she fell down onto her knees and she was feeling so weak, she was unable to get up. She called her on the phone who then activated EMS to assist. Patient did not sustain any injuries with this fall and she did not have any syncope or near syncope that contributed to her fall Otherwise, patient admits to a poor appetite in general, but her appetite is worse than usual over the past week or so -- food does not appeal to her and she describes nausea without vomiting recently. She denies any focal abdominal pain, but she does admit to rectal discomfort constantly. Hb low but stable at 8.3 this evening, no further signs of active bleeding no need for transfusion plan for colonoscopy on 12/18 continue to hold Eliquis for procedure (2) Weakness: -- Secondary to problems #1 and #2 PT/OT consults (3) COPD (chronic obstructive pulmonary disease): -- Continue usual inhalers. -- Duoneb nebulizer treatments as needed. (4) Restrictive lung disease: -- Continue usual inhalers. -- Duoneb nebulizer treatments as needed. (5) Hypercholesterolemia: -- Continue Simvastatin 40 mg daily. (6) correction current use of anticoagulant: -- For DVT's and Pulmonary Emboli. -- GI Bleed requires that we hold this medication for the time being. Admission and Anticipated Discharge Date Admission Date: December 15, 2020 Subjective patient doing well, had two enemas last night she is trying to drink more prep, having a tough time no further bleeding Hb is stable at 8.3, over 24 hours without a drop in Hb no chest pain, no dyspnea, no cough, no fever/chills Review of Systems Review of Systems: All systems reviewed & are unremarkable except as noted in Subjective Gastrointestinal: + diarrhea/loose stools; no abdominal pain, no hematemesis, no pain with swallowing, no constipation, no blood in stools and no melena Physical Exam Constitutional: well developed and + obese; no acute distress Neck: trachea midline, no thyromegaly Respiratory: normal respiratory effort, lungs clear to auscultation Cardiovascular: RRR, no murmur, no edema Gastrointestinal (Abdomen): normal bowel sounds, soft, nontender, no hepatosplenomegaly Musculoskeletal: no cyanosis or clubbing, extremities motor strength 5/5 Skin: no rashes, warm and dry Neurologic: patellar DTR's 2+ bilat, sensation intact and PERRL, EOMI, ac commodation nl, no face palsy, no dysarthria Psychiatric: A+Ox3, euthymic affect Lymphatic: no cervical or axillary lymphadenopathy Results & Data Results & Data ([facility]) Vital Signs (Past 12 Hours) Vital Signs Temp Pulse Resp BP BP Pulse Ox 12/17/20 20:33 85 119/70 96 12/17/20 16:29 36.6 C 84 18 117/71 97 Laboratory Results Laboratory Results - last 24 hr 12/17/20 12/17/20 07:44 21:35 Hgb 8.3 L Hct 26.1 L Sodium 140 Potassium 3.9 Chloride 111 H Carbon Dioxide 22 Anion Gap 7.0 BUN 13 Creatinine 1.10 Est Cr Clr Drug Dosing 56.4 Est GFR ( Amer) 59.7 Est GFR (Non-Af Amer) 51.5 BUN/Creatinine Ratio 12.1 Glucose 91 Calcium 8.7 Medications Administered Current Inpatient Medications Acetaminophen (Acetaminophen 325 Mg Tab) 650 mg PO Q4H PRN PRN Reason: pain/fever Stop: 01/14/21 13:24 Last Admin: 12/15/20 19:19 Dose: 650 mg Documented by: Al Hydrox/Mg Hydrox/Simethicone (Aluminum/Magnesium Susp 30 Ml Udc) 30 ml PO Q6H PRN PRN Reason: Dyspepsia Stop: 01/14/21 13:24 Last Admin: 12/17/20 21:02 Dose: 30 ml Documented by: Albuterol (Albuterol Hfa 8 Gm Inhaler) 2 puffs INH Q6 PRN PRN Reason: Shortness Of Breath Or Wheezing Stop: 01/14/21 13:24 Albuterol (Albut/Ipratrop 3mg/0.5mg Neb 3 Ml Vial) 3 ml INH Q4H PRN PRN Reason: Shortness Of Breath Or Wheezing Stop: 01/14/21 13:24 Ascorbic Acid (Ascorbic Acid 500 Mg Tab) 500 mg PO BIDM COUNTS INCLUDE 234 BEDS AT THE [facility] Stop: 01/14/21 16:59 Last Admin: 12/17/20 16:06 Dose: 500 mg Documented by: Colestipol HCl (Colestipol Hcl 1 Gm Tab) 1 gm PO QDD COUNTS INCLUDE 234 BEDS AT THE [facility] Stop: 01/14/21 16:29 Last Admin: 12/17/20 16:07 Dose: 1 gm Documented by: Cyanocobalamin (Cyanocobalamin 500 Mcg Tablet (Vitamin B-12)) 1,000 mcg PO QDL COUNTS INCLUDE 234 BEDS AT THE [facility] Stop: 01/14/21 13:59 Last Admin: 12/17/20 11:51 Dose: 1,000 mcg Documented by: Ferrous Sulfate (Ferrous Sulfate 325 Mg Tab) 325 mg PO BID JAMIN Stop: 01/14/21 20:59 Last Admin: 12/17/20 20:36 Dose: 325 mg Documented by: Fluticasone Furoate (Fluticasone Furoate 100mcg 14 Puffs/Inhaler) 1 puffs INH HS COUNTS INCLUDE 234 BEDS AT THE [facility] Stop: 01/14/21 20:59 Last Admin: 12/17/20 20:35 Dose: 1 puffs Documented by: Heparin Sodium (Porcine) (Heparin 100 Unit/Ml 5ml Flush) 5 ml FLUSH PRN PRN PRN Reason: Flush Stop: 01/15/21 01:31 Last Admin: 12/17/20 21:40 Dose: 5 ml Documented by: Levothyroxine Sodium (Levothyroxine Sodium 150 Mcg Tablet) 150 mcg PO DAILYBB COUNTS INCLUDE 234 BEDS AT THE [facility] Stop: 01/15/21 06:29 Last Admin: 12/17/20 05:41 Dose: 150 mcg Documented by: Magnesium Hydroxide (Magnesium Hydroxide Susp 30 Ml Udc) 30 ml PO Q6H PRN PRN Reason: Constipation Stop: 01/14/21 13:24 Magnesium Oxide (Magnesium Oxide 400 Mg Tab) [facility] [place]: 01/15/21 08:59 Last Admin: 12/17/20 08:53 Dose: 400 mg Documented by: Metoprolol Tartrate (Metoprolol Tartrate 50 Mg Tab) 50 mg PO TID COUNTS INCLUDE 234 BEDS AT THE [facility] Stop: 01/14/21 13:59 Last Admin: 12/17/20 20:36 Dose: 50 mg Documented by: Multivitamins (Multivitamin Tab) 1 tab PO [facility] Stop: 01/15/21 08:59 Last Admin: 12/17/20 08:52 Dose: 1 tab Documented by: Ondansetron HCl (Ondansetron Inj 2 Mg/Ml 2 Ml Vial) 4 mg IV Q6H PRN PRN Reason: Nausea Stop: 01/14/21 13:24 Last Admin: 12/17/20 09:48 Dose: 4 mg Documented by: Pantoprazole Sodium (Pantoprazole 40 Mg Tab) 40 mg PO QAM COUNTS INCLUDE 234 BEDS AT THE [facility] Stop: 01/15/21 08:59 Last Admin: 12/17/20 08:52 Dose: 40 mg Documented by: Pyridoxine HCl (Pyridoxine Hcl 50 Mg Tab) 100 mg PO QDL COUNTS INCLUDE 234 BEDS AT THE [facility] Stop: 01/14/21 13:59 Last Admin: 12/17/20 11:51 Dose: 100 mg Documented by: Sertraline HCl (Sertraline Hcl 50 Mg Tablet) 50 mg PO [facility] Stop: 01/14/21 20:59 Last Admin: 12/17/20 20:36 Dose: 50 mg Documented by: Simvastatin (Simvastatin 40 Mg Tab) 40 mg PO [facility] Stop: 01/14/21 20:59 Last Admin: 12/17/20 20:36 Dose: 40 mg Documented by: Vitamin D (Cholecalciferol 1,000 Units 25 Mcg Tab) 2,000 units PO BID COUNTS INCLUDE 234 BEDS AT THE [facility] Stop: 01/14/21 20:59 Last Admin: 12/17/20 20:36 Dose: 2,000 units Documented by: Vitamin E (Tocopheryl, Dl-Alpha 100 Units Cap) 100 units PO QDD COUNTS INCLUDE 234 BEDS AT THE [facility] Stop: 01/14/21 16:29 Last Admin: 12/17/20 16:07 Dose: 100 units Documented by: Zolpidem Tartrate (Zolpidem Tartrate 5 Mg Tab) 5 mg PO HS PRN PRN Reason: Sleep Stop: 01/14/21 13:24 PG Care Time/CCT Total # of Minutes Spent Total Time Spent with Patient: Total time spent is greater than 50% in coordination of care (as documented) at patient's floor/unit and/or counseling patient: Coding Level of Care Code 74870 Subseq Hosp Care Lvl 2 Diagnoses GI bleed K92.2 GI bleed type/associated pathology: unspecified gastrointestinal hemorrhage type Weakness R53.1 COPD (chronic obstructive pulmonary disease) J44.9 Restrictive lung disease J98.4 Hypercholesterolemia E78.00 correction current use of anticoagulant Z79.01 (1) GI bleed GI bleed type/associated pathology: unspecified gastrointestinal hemorrhage type Qualified Code(s): K92.2 - Gastrointestinal hemorrhage, unspecified
[2020-12-18] MEDS: LEVOTHYROXINE SODIUM 150 MCG TABLET PO SCH (05:53)
[2020-12-18] MEDS: HEPARIN 100 UNIT/ML 5ML FLUSH FLUSH PRN (06:04)
[2020-12-18 06:30] LABS: BUN Creatinine Ratio 10.3 (10-20); Calcium 8.2 mg/dl (8.5-10.1); Creatinine Clr Calc Pharmacy 56.9 ml/min; Est GFR (African American) 60.4; Est GFR (Non-African American) 52.1; Potassium 3.7 mmol/L (3.5-5.1)
[2020-12-18] MEDS: PANTOprazole 40 MG TAB PO SCH (09:33)
[2020-12-18] MEDS: FERROUS SULFATE 325 MG TAB PO SCH ×3 (09:33→22:08)
[2020-12-18] MEDS: MULTIVITAMIN TAB PO SCH (09:33)
[2020-12-18] MEDS: ASCORBIC ACID 500 MG TAB PO SCH ×2 (09:33→16:20)
[2020-12-18] MEDS: CHOLECALCIFEROL 1,000 UNITS 25 MCG TAB PO SCH ×2 (09:33→22:09)
[2020-12-18] MEDS: METOPROLOL TARTRATE 50 MG TAB PO SCH ×3 (09:33→22:09)
[2020-12-18] MEDS: MAGNESIUM OXIDE 400 MG TAB PO SCH (09:33)
--- NOTE | 2020-12-18 09:52 | History & Physical Bridge Note ---
Date of Service December 18, 2020 History & Physical Bridge Note I have examined the patient, reviewed the History & Physical and in the interval since the performance of the History & Physical I have noted the following changes of clinical significance: no changes noted. Patient just had clear liquids at 0925. She will need to be remain NPO for 2 hours prior to anesthesia. Reports clear liquid stools. PE: A&Ox3. Lungs CTA bilaterally. Heart RRR. Abdomen obese, soft, with hyperactive bowel sounds. A/P: Rectal bleeding. NPO now. Proceed with colonoscopy today with Dr. Kapoor. Additional recommendations pending results of testing.
--- NOTE | 2020-12-18 12:39 | Anesthesiology Consultation ---
Date of Service December 18, 2020 Assessment & Plan Chart Review Chart Review: Acceptable Risk for Surgery and Patient NOT seen in Pre Admission Testing Consults Requested none ASA ASA4 Proposed Anesthesia Anesthesia Type: MAC Risk / Benefits Reviewed With: PT / POA / Parent / Guardian, Accepts Plan and Informed Consent Obtained Additional Comments: covid test negative History Surgery Operation Date: 12/16/20 16:45 Proposed Procedures p Colonoscopy Dr. Emelia Kapoor MD Operation Date: 12/18/20 16:00 Proposed Procedures p Colonoscopy Dr. Emelia Kapoor MD Height/Weight Height: 5 ft 5 in Weight: 96.9 kg Allergies Allergy/AdvReac Type Severity Reaction Status Date / Time oxaliplatin Allergy Severe Anaphylaxis Verified 12/18/20 12:20 thiopental Allergy Intermediate INCREASED Verified 12/18/20 12:20 BLEEDING WITH WISDOM TEETH SURG meperidine AdvReac Mild N/V Verified 12/18/20 12:20 morphine AdvReac Mild N/V Verified 12/18/20 12:20 Medications Home Medications Medication Instructions Recorded Confirmed Last Taken albuterol sulfate 2 puff INHALATION Q6 PRN 08/07/18 12/15/20 07/07/20 multivitamin 1 tab PO QAM 08/07/18 12/15/20 12/14/20 ascorbic acid (vitamin C) [Vitamin 500 mg PO BIDM 11/02/19 12/15/20 12/14/20 C] cholecalciferol (vitamin D3) 2,000 unit PO BID 11/02/19 12/15/20 12/14/20 [Vitamin D3] sertraline 50 mg tablet 50 mg PO HS #90 tab 06/02/20 12/15/20 12/14/20 beclomethasone dipropionate 80 1 inh INHALATION BID #34.8 g 07/14/20 12/15/20 12/14/20 mcg/actuation HFA breath activated aerosol omeprazole 40 mg capsule,delayed 40 mg PO QAM #90 cap 08/20/20 12/15/20 12/14/20 release metoprolol tartrate 50 mg tablet 50 mg PO TID #90 tab 09/08/20 12/15/20 12/14/20 ipratropium 0.5 mg-albuterol 3 mg 3 ml INHALATION Q4H PRN #540 ml 09/11/20 12/15/20 10/12/20 (2.5 mg base)/3 mL nebulization soln Vitamin E 180mg 180 mg PO QDD 10/12/20 12/15/20 12/14/20 colestipol [Colestid] 1 g PO QDD 10/12/20 12/15/20 12/14/20 cyanocobalamin (vitamin B-12) 1,000 mcg PO QDL 10/12/20 12/15/20 12/14/20 [Vitamin B-12] levothyroxine 150 mcg PO QAM 10/12/20 12/15/20 12/14/20 magnesium oxide 400 mg PO QAM 10/12/20 12/15/20 12/14/20 pyridoxine (vitamin B6) [Vitamin 100 mg PO QDL 10/12/20 12/15/20 12/14/20 B-6] simvastatin 40 mg PO HS 10/12/20 12/15/20 12/14/20 miscellaneous throat product 15 ml PO BID PRN 10/13/20 12/15/20 Unknown potassium gluconate 595 mg PO BID 10/13/20 12/15/20 12/14/20 ferrous sulfate 325 mg PO BID #60 tab 10/16/20 12/15/20 12/14/20 fluticasone furoate 100 1 inh INHALATION DAILY 10/22/20 12/15/20 12/14/20 mcg/actuation blister powder for inhalation apixaban [Eliquis] 5 mg PO BID 12/15/20 12/15/20 12/14/20 Active Medications Generic Name Dose Route Start Last Admin Trade Name Freq PRN Reason Stop Dose Admin Acetaminophen 650 mg 12/15/20 13:25 12/15/20 19:19 Acetaminophen 325 Mg Tab PO 01/14/21 13:24 650 mg Q4H PRN Administration pain/fever Al Hydrox/Mg Hydrox/Simethicone 30 ml 12/15/20 13:25 12/17/20 21:02 Aluminum/Magnesium Susp 30 Ml Udc PO 01/14/21 13:24 30 ml Q6H PRN Administration Dyspepsia Ascorbic Acid 500 mg 12/15/20 17:00 12/18/20 09:33 Ascorbic Acid 500 Mg Tab PO 01/14/21 16:59 500 mg BIDM JAMIN Administration Colestipol HCl 1 gm 12/15/20 16:30 12/17/20 16:07 Colestipol Hcl 1 Gm Tab PO 01/14/21 16:29 1 gm QDD JAMIN Administration Cyanocobalamin 1,000 mcg 12/15/20 14:00 12/17/20 11:51 Cyanocobalamin 500 Mcg Tablet (Vitamin B-12) PO 01/14/21 13:59 1,000 mcg QDL JAMIN Administration Ferrous Sulfate 325 mg 12/15/20 21:00 12/18/20 10:45 Ferrous Sulfate 325 Mg Tab PO 01/14/21 20:59 Not Given BID JAMIN Fluticasone Furoate 1 puffs 12/15/20 21:00 12/17/20 20:35 Fluticasone Furoate 100mcg 14 Puffs/Inhaler INH 01/14/21 20:59 1 puffs HS JAMIN Administration Heparin Sodium (Porcine) 5 ml 12/16/20 01:32 12/18/20 06:04 Heparin 100 Unit/Ml 5ml Flush FLUSH 01/15/21 01:31 5 ml PRN PRN Administration Flush Levothyroxine Sodium 150 mcg 12/16/20 06:30 12/18/20 05:53 Levothyroxine Sodium 150 Mcg Tablet PO 01/15/21 06:29 150 mcg DAILYBB JAMIN Administration Magnesium Oxide 400 mg 12/16/20 09:00 12/18/20 09:33 Magnesium Oxide 400 Mg Tab PO 01/15/21 08:59 400 mg QAM JAMIN Administration Metoprolol Tartrate 50 mg 12/15/20 14:00 12/18/20 09:33 Metoprolol Tartrate 50 Mg Tab PO 01/14/21 13:59 50 mg TID JAMIN Administration Multivitamins 1 tab 12/16/20 09:00 12/18/20 09:33 Multivitamin Tab PO 01/15/21 08:59 1 tab QAM JAMIN Administration Ondansetron HCl 4 mg 12/15/20 13:25 12/17/20 09:48 Ondansetron Inj 2 Mg/Ml 2 Ml Vial IV 01/14/21 13:24 4 mg Q6H PRN Administration Nausea Pantoprazole Sodium 40 mg 12/16/20 09:00 12/18/20 09:33 Pantoprazole 40 Mg Tab PO 01/15/21 08:59 40 mg QAM JAMIN Administration Pyridoxine HCl 100 mg 12/15/20 14:00 12/17/20 11:51 Pyridoxine Hcl 50 Mg Tab PO 01/14/21 13:59 100 mg QDL JAMIN Administration Sertraline HCl 50 mg 12/15/20 21:00 12/17/20 20:36 Sertraline Hcl 50 Mg Tablet PO 01/14/21 20:59 50 mg HS JAMIN Administration Simvastatin 40 mg 12/15/20 21:00 12/17/20 20:36 Simvastatin 40 Mg Tab PO 01/14/21 20:59 40 mg HS JAMIN Administration Vitamin D 2,000 units 12/15/20 21:00 12/18/20 09:33 Cholecalciferol 1,000 Units 25 Mcg Tab PO 01/14/21 20:59 2,000 units BID JAMIN Administration Vitamin E 100 units 12/15/20 16:30 12/17/20 16:07 Tocopheryl, Dl-Alpha 100 Units Cap PO 01/14/21 16:29 100 units QDD JAMIN Administration NPO Date Last Intake of Fluids: 12/18/20 Time Last Intake of Fluids: 09:30 Date Last Intake of Solids: 12/14/20 Time Last Intake of Solids: 18:00 Past Medical History Medical History Acute GI bleeding Asthma Bacteremia Bilateral pulmonary embolism hx of 2012--reason for eliquis daily (had pneumonia right before and pt states she was not moving much) Candidiasis of intestine Chemotherapy adverse reaction Chronic diastolic congestive heart failure Colon cancer metastasized to lung (09/18/08) "Adenocarcinoma of the colon with lung metastasis diagnosed in 2007 Status post right lobectomy 07/10/2008 Status post colonoscopy and biopsy 09/18/2008 revealing the colon lesion. Status post resection. This was followed by chemotherapy. Status post left upper lobe wedge resection 08/24/2011 due to metastasis Status post stereotactic radiation therapy in 2011 Completed chemotherapy in 2014 Status post wedge resection with Dr. navarrete 2015 Status post hypo-fractionated radiation therapy in 2015 PET/CT 08/24/2017 revealing metabolic activity of the right hilum. Status post completion of radiation therapy 10/24/2017 utilizing VMAT. PET/CT May 29, 2018 persistent uptake in the right paratracheal mass and suspicious changes for progression. Plan for systemic chemotherapy with irinotecan and Erbitux" On 11/02/17 11:11 Meaghan Alves wrote "Adenocarcinoma of the colon with lung metastasis diagnosed in 2007 Status post right lobectomy 07/10/2008 Status post colonoscopy and biopsy 09/18/2008 revealing the colon lesion. Status post resection. This was followed by chemotherapy. Status post left upper lobe wedge resection 08/24/2011 due to metastasis Status post stereotactic radiation therapy in 2011 Completed chemotherapy in 2014 Status post wedge resection with Dr. navarrete 2016 Status post hypo-fractionated radiation therapy in 2016 PET/CT 08/24/2017 revealing metabolic activity of the right hilum. Status post completion of radiation therapy 10/24/2017 utilizing VMAT." On 09/13/17 09:28 Meaghan Alves wrote "Adenocarcinoma of the colon with lung metastasis diagnosed in 2007 Status post right lobectomy 07/10/2008 Status post colonoscopy and biopsy 09/18/2008 revealing the colon lesion. Status post resection. This was followed by chemotherapy. Status post left upper lobe wedge resection 08/24/2011 due to metastasis Status post stereotactic radiation therapy in 2011 Completed chemotherapy in 2014 Status post wedge resection with Dr. navarrete 2016 Status post hypo-fractionated radiation therapy in 2016 PET/CT 08/24/2017 revealing metabolic activity of the right hilum." Depression Depression Diverticulosis of colon DVT, lower extremity left leg, same time as PE Elevated lactic acid level Essential hypertension GERD (gastroesophageal reflux disease) History of anesthesia reaction difficulty waking at times as well as hx of waking up during sx (woke up d uring port placement) History of chemotherapy History of gastric ulcer History of immunocompromised state History of pulmonary embolus (PE) History of radiation therapy HLD (hyperlipidemia) Hyperlipidemia Hypertension Hypothyroid Hypothyroidism Hypoxia Infection due to Port-A-Cath Morbid obesity with BMI of 40.0-44.9, adult Neutropenia On anticoagulant therapy eliquis daily On home oxygen therapy 2L N/C at hs Radiation pneumonitis Seizures due to metabolic disorder x2-- one d/t medication anaphylaxis, and pt states second d/t low magnesium in 09/2019 Septicemia due to coagulase-negative staphylococcal infection Exercise / Class Metabolic Activity III < 4 Walking/Shop/Light housework Past Family History Family History Mother , early 80s of thyroid cancer Thyroid cancer Heart disease Family history of reaction to anesthesia at age 80, took 2 days to wake after thyroidectomy Father , age 81 of gangrene complications No problems noted. Uncle Colorectal cancer Sister Family history of diabetes mellitus Sister Family history of diabetes mellitus Other Family history non-contributory Denies family history of Ovarian cancer Prostate cancer Breast cancer Past Surgical History Surgical History H/O: hysterectomy History of bilateral tubal ligation History of bladder suspension procedure History of bronchoscopy x2-3 History of cholecystectomy open 04/2020 History of colon surgery d/t colon cancer History of colonoscopy with polypectomy History of esophagogastroduodenoscopy (EGD) History of lobectomy of lung right upper lobe removed 06/2008 @ [facility] d/t colon cancer metastasis to lung History of lung surgery wedge resection of left lung d/t cancer History of radioactive iodine thyroid ablation History of removal of cyst off finger History of tonsillectomy History of vascular access device x2--A port in place right side of chest History of ventral hernia repair History of wisdom tooth extraction Past Anesthesia History No Hx of Anesthesia Complications and No Family Hx of Anesthesia Complications History of PONV No Hx of PONV and No Hx of Motion Sickness Social History Smoking Status: Never smoker Hx Alcohol Use: No Hx Substance Use: No substance use type: does not use Physical Exam Vital Signs Last Vital Signs Temp 36.4 C L 12/18/20 12:20 Pulse 80 12/18/20 12:20 Resp 22 12/18/20 12:20 BP 141/84 H 12/18/20 12:20 Pulse Ox 96 12/18/20 12:20 Constitutional + morbidly obese ENMT Mouth: no dentition abnormality Thyromental Distance: < 3.5 Finger Breadths Mallampati Class: II Neck normal visual inspection and trachea midline; neck extension not limited Respiratory normal respiratory effort Auscultation: lungs clear to auscultation bilaterally and + diminished lung sounds Cardiovascular Rate/Rhythm: regular rate and regular rhythm Heart Sounds: no murmur Vessels: no carotid bruit Musculoskeletal Spine: normal cervical ROM Extremities: extremities normal to inspection Neurologic moves all extremities Motor/Sensory: no sensory deficit Psychiatric Orientation: alert and oriented x 3 Testing Laboratory Results 12/17/20 21:35 12/18/20 06:01 PT 11.7 Seconds (9.0-12.0) 12/15/20 08:24 INR 1.1 (0.9-1.1) 12/15/20 08:24 APTT 35.6 Seconds (21.0-31.0) H 12/15/20 08:24 Blood Type O Positive 12/15/20 08:24 Antibody Screen NEGATIVE 12/15/20 08:24 Electrocardiogram Date: 12/15/20 Findings: + NSR @ (at 87) Chest X-Ray Date: 12/15/20 Findings: + NAD
[2020-12-18] MEDS ORDERED: ePHEDrine sulfate 50 MG/ML AMP IV PRN (12:41)
[2020-12-18] MEDS ORDERED: ATROPINE SULFATE 0.1 MG/ML 10ML SYR IV PRN (12:41)
--- NOTE | 2020-12-18 13:14 | GI REPORT ---
Patient Name: Marie Bee Procedure Date: 12/18/2020 12:29 PM Date of : 1950 Admit Type: Inpatient Age: 70 Gender: Female Attending MD: Diego Kapoor MD Procedure: Colonoscopy Providers: Diego Kapoor MD Referring MD: Referred Jean Carlos Greenwood Indications: Hematochezia Medicines: Monitored Anesthesia Care Complications: No immediate complications. Estimated blood loss: None. Estimated Blood Loss: Estimated blood loss: none. Procedure: Pre-Anesthesia Assessment: - Prior Anticoagulants: The patient has taken no previous anticoagulant or antiplatelet agents. - ASA Grade Assessment: II - A patient with mild systemic disease. After I obtained informed consent, the scope was passed under direct vision. Throughout the procedure, the patient's blood pressure, pulse, and oxygen saturations were monitored continuously. The Colonoscope was introduced through the anus and advanced to the cecum, identified by appendiceal orifice and ileocecal valve. The colonoscopy was performed without difficulty. The patient tolerated the procedure well. The quality of the bowel preparation was poor. Findings: A few small angioectasias without bleeding were found in the sigmoid colon. Coagulation for bleeding prevention using argon plasma at 1.2 liters/minute and 25 roldan was successful. Estimated blood loss: none. Non-bleeding internal hemorrhoids were found during retroflexion. The hemorrhoids were small. A moderate amount of semi-liquid stool was found in the entire colon, making visualization difficult. Impression: - Preparation of the colon was poor. - A few non-bleeding colonic angioectasias. Treated with argon plasma coagulation (APC). - Non-bleeding internal hemorrhoids. - Stool in the entire examined colon. - No specimens collected. Recommendation: - [facility]. - Advance diet as tolerated today. -start anusol topical cream BID for 2 weeks for hemorrhoids Diego Kapoor MD 12/18/2020 1:14:30 PM This report has been signed electronically. Note Initiated On: 12/18/2020 12:29 PM Number of Addenda: 0 I attest to the content of the Intraoperative Record and orders documented therein, exceptions below {[id number]}
[2020-12-18] MEDS ORDERED: LIDOCAINE HCL 2% 2 ML VIAL/AMP(20MG/ML) INFIL ONE (13:17)
[2020-12-18] MEDS ORDERED: PROPOFOL IV EMULSION 10 MG/ML 20 ML VIAL IV ONE (13:17)
--- NOTE | 2020-12-18 13:17 | Procedure Note ---
Procedure Note Date of Service December 18, 2020 brief procedure note EGD findings: AVMs in sigmoid colon, treated with APC; hemorrhoids Recs: advance diet as tolerated trend H/H, supportive care Diego Kapoor MD Gastroenterology Coding
--- NOTE | 2020-12-18 13:28 | Anesthesiology Progress Note ---
Date of Service December 18, 2020 Anesthesia Post Procedure Vital Signs Vital Signs: Temp Pulse Resp BP BP Pulse Ox 12/18/20 13:15 36.4 C L 82 20 101/59 L 100 12/18/20 12:20 36.4 C L 80 22 141/84 H 96 12/18/20 08:09 37.0 C 83 16 102/67 95 12/17/20 23:03 36.7 C 82 16 123/77 96 12/17/20 20:33 85 119/70 96 12/17/20 16:29 36.6 C 84 18 117/71 97 Pain Intensity Bilateral Knee: Pain Intensity: 1 Rectal: Pain Intensity: 3 Transfer of Care Handoff Completed per policy Notes Mental Status: alert / awake / arousable Patient Amnestic to Procedure: Yes Nausea / Vomiting: adequately controlled Pain: adequately controlled Airway Patency, RR, SpO2: stable & adequate BP & HR: stable & adequate Hydration State: stable & adequate Anesthetic Complications: no major complications apparent
[2020-12-18] MEDS: PYRIDOXINE HCL 50 MG TAB PO SCH (14:21)
[2020-12-18] MEDS: CYANOCOBALAMIN 500 MCG TABLET (VITAMIN B-12) PO SCH (14:21)
--- NOTE | 2020-12-18 15:49 | Hospitalist Progress Note ---
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 -- Duoneb nebulizer treatments as needed. (4) Restrictive lung disease: -- Continue usual inhalers. -- Duoneb nebulizer treatments as needed. (5) Hypercholesterolemia: -- Continue Simvastatin 40 mg daily. 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 -- continue to hold Eliquis check with GI when we can resume Admission and Anticipated Discharge Date Admission Date: December 15, 2020 Subjective patient tolerated colonoscopy, had some colonic AVM that were cauterized, hemorrhoids she is eating and drinking well will get PT and OT evaluations to make sure she is strong enough to go home she says she feels weaker than normal, mostly in her knees, they have been giving out check CBC in the AM no chest pain, no dyspnea, no fever/chills, no nausea/vomiting, no diarrhea now that prep is done Review of Systems Review of Systems: All systems reviewed & are unremarkable except as noted in Subjective Constitutional: + weakness Musculoskeletal: + muscle weakness Neurologic: + unsteadiness Physical Exam Constitutional: well developed and + obese; no acute distress Neck: trachea midline, no thyromegaly Respiratory: normal respiratory effort, lungs clear to auscultation Cardiovascular: RRR, no murmur, no edema Gastrointestinal (Abdomen): normal bowel sounds, soft, nontender, no hepatosplenomegaly Musculoskeletal: no cyanosis or clubbing, extremities motor strength 5/5 Skin: no rashes, warm and dry Neurologic: patellar DTR's 2+ bilat, sensation intact and PERRL, EOMI, accommodation nl, no face palsy, no dysarthria Psychiatric: A+Ox3, euthymic affect Lymphatic: no cervical or axillary lymphadenopathy Results & Data Results & Data ([facility]) Vital Signs (Past 12 Hours) Vital Signs Temp Pulse Resp BP BP Pulse Ox 12/18/20 15:07 36.6 C 86 16 114/74 96 12/18/20 14:45 36.6 C 86 120/79 99 12/18/20 14:15 36.6 C 86 124/83 98 12/18/20 13:42 79 16 138/65 100 12/18/20 13:28 80 16 113/56 L 97 12/18/20 13:15 36.4 C L 82 20 101/59 L 100 12/18/20 12:20 36.4 C L 80 22 141/84 H 96 12/18/20 08:09 37.0 C 83 16 102/67 95 Laboratory Results Laboratory Results - last 24 hr 12/17/20 12/18/20 21:35 06:01 Hgb 8.3 L Hct 26.1 L Sodium 142 Potassium 3.7 Chloride 113 H Carbon Dioxide 25 Anion Gap 4.0 BUN 11 Creatinine 1.09 Est Cr Clr Drug Dosing 56.9 Est GFR ( Amer) 60.4 Est GFR (Non-Af Amer) 52.1 BUN/Creatinine Ratio 10.3 Glucose 79 Calcium 8.2 L Medications Administered Current Inpatient Medications Acetaminophen (Acetaminophen 325 Mg Tab) 650 mg PO Q4H PRN PRN Reason: pain/fever Stop: 01/14/21 13:24 Last Admin: 12/15/20 19:19 Dose: 650 mg Documented by: Al Hydrox/Mg Hydrox/Simethicone (Aluminum/Magnesium Susp 30 Ml Udc) 30 ml PO Q6H PRN PRN Reason: Dyspepsia Stop: 01/14/21 13:24 Last Admin: 12/17/20 21:02 Dose: 30 ml Documented by: Albuterol (Albuterol Hfa 8 Gm Inhaler) 2 puffs INH Q6 PRN PRN Reason: Shortness Of Breath Or Wheezing Stop: 01/14/21 13:24 Albuterol (Albut/Ipratrop 3mg/0.5mg Neb 3 Ml Vial) 3 ml INH Q4H PRN PRN Reason: Shortness Of Breath Or Wheezing Stop: 01/14/21 13:24 Ascorbic Acid (Ascorbic Acid 500 Mg Tab) 500 mg PO BIDM JAMIN Stop: 01/14/21 16:59 Last Admin: 12/18/20 09:33 Dose: 500 mg Documented by: Atropine Sulfate (Atropine Sulfate 0.1 Mg/Ml 10ml Syr) 0.5 mg IV Q1M PRN PRN Reason: PACU Use-HR<40 &/or Bradycardi Stop: 12/18/20 20:41 Colestipol HCl (Colestipol Hcl 1 Gm Tab) 1 gm PO QDD [facility] Stop: 01/14/21 16:29 Last Admin: 12/17/20 16:07 Dose: 1 gm Documented by: Cyanocobalamin (Cyanocobalamin 500 Mcg Tablet (Vitamin B-12)) 1,000 mcg PO QDL [facility] Stop: 01/14/21 13:59 Last Admin: 12/18/20 14:21 Dose: 1,000 mcg Documented by: Ephedrine Sulfate (Ephedrine Sulfate 50 Mg/Ml Amp) 5 mg IV Q5M PRN PRN Reason: PACU Use Only-SBP<90 mmHg Stop: 12/18/20 20:41 Ferrous Sulfate (Ferrous Sulfate 325 Mg Tab) 325 mg PO BID [facility] Stop: 01/14/21 20:59 Last Admin: 12/18/20 10:45 Dose: Not Given Documented by: Fluticasone Furoate (Fluticasone Furoate 100mcg 14 Puffs/Inhaler) 1 puffs INH HS [facility] Stop: 01/14/21 20:59 Last Admin: 12/17/20 20:35 Dose: 1 puffs Documented by: Heparin Sodium (Porcine) (Heparin 100 Unit/Ml 5ml Flush) 5 ml FLUSH PRN PRN PRN Reason: Flush Stop: 01/15/21 01:31 Last Admin: 12/18/20 06:04 Dose: 5 ml Documented by: Levothyroxine Sodium (Levothyroxine Sodium 150 Mcg Tablet) 150 mcg PO DAILYBB [facility] Stop: 01/15/21 06:29 Last Admin: 12/18/20 05:53 Dose: 150 mcg Documented by: Magnesium Hydroxide (Magnesium Hydroxide Susp 30 Ml Udc) 30 ml PO Q6H PRN PRN Reason: Constipation Stop: 01/14/21 13:24 Magnesium Oxide (Magnesium Oxide 400 Mg Tab) 400 mg PO QAM [facility] Stop: 01/15/21 08:59 Last Admin: 12/18/20 09:33 Dose: 400 mg Documented by: Metoprolol Tartrate (Metoprolol Tartrate 50 Mg Tab) 50 mg PO TID [facility] Stop: 01/14/21 13:59 Last Admin: 12/18/20 14:22 Dose: 50 mg Documented by: Multivitamins (Multivitamin Tab) 1 tab PO QAM [facility] Stop: 01/15/21 08:59 Last Admin: 12/18/20 09:33 Dose: 1 tab Documented by: Ondansetron HCl (Ondansetron Inj 2 Mg/Ml 2 Ml Vial) 4 mg IV Q6H PRN PRN Reason: Nausea Stop: 01/14/21 13:24 Last Admin: 12/17/20 09:48 Dose: 4 mg Documented by: Pantoprazole Sodium (Pantoprazole 40 Mg Tab) 40 mg PO QAM [facility] Stop: 01/15/21 08:59 Last Admin: 12/18/20 09:33 Dose: 40 mg Documented by: Pyridoxine HCl (Pyridoxine Hcl 50 Mg Tab) 100 mg PO QDL [facility] Stop: 01/14/21 13:59 Last Admin: 12/18/20 14:21 Dose: 100 mg Documented by: Sertraline HCl (Sertraline Hcl 50 Mg Tablet) 50 mg PO HS [facility] Stop: 01/14/21 20:59 Last Admin: 12/17/20 20:36 Dose: 50 mg Documented by: Simvastatin (Simvastatin 40 Mg Tab) 40 mg PO HS [facility] Stop: 01/14/21 20:59 Last Admin: 12/17/20 20:36 Dose: 40 mg Documented by: Vitamin D (Cholecalciferol 1,000 Units 25 Mcg Tab) 2,000 units PO BID [facility] Stop: 01/14/21 20:59 Last Admin: 12/18/20 09:33 Dose: 2,000 units Documented by: Vitamin E (Tocopheryl, Dl-Alpha 100 Units Cap) 100 units PO QDD [facility] Stop: 01/14/21 16:29 Last Admin: 12/17/20 16:07 Dose: 100 units Documented by: Zolpidem Tartrate (Zolpidem Tartrate 5 Mg Tab) 5 mg PO HS PRN PRN Reason: Sleep Stop: 01/14/21 13:24 PG Care Time/CCT Total # of Minutes Spent Total Time Spent with Patient: Total time spent is greater than 50% in coordination of care (as documented) at patient's floor/unit and/or counseling patient: Coding Level of Care Code 14555 Subseq Hosp Care Lvl 2 Diagnoses GI bleed K92.2 GI bleed type/associated pathology: unspecified gastrointestinal hemorrhage type Weakness R53.1 COPD (chronic obstructive pulmonary disease) J44.9 Restrictive lung disease J98.4 Hypercholesterolemia 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
[2020-12-18] MEDS: COLESTIPOL HCL 1 GM TAB PO SCH (16:20)
[2020-12-18] MEDS: TOCOPHERYL, DL-ALPHA 100 UNITS CAP PO SCH (16:20)
[2020-12-18] MEDS ORDERED: HYDROCORTISONE HC 2.5% CRM 30GM TUBE EXT PRN (21:06)
[2020-12-18] MEDS: FLUTICASONE FUROATE 100MCG 14 PUFFS/INHALER INH SCH (22:08)
[2020-12-18] MEDS: SERTRALINE HCL 50 MG TABLET PO SCH (22:09)
[2020-12-18] MEDS: SIMVASTATIN 40 MG TAB PO SCH (22:10)
[2020-12-18] MEDS: ALUMINUM/MAGNESIUM SUSP 30 ML UDC PO PRN (22:38)
[2020-12-19] MEDS: LEVOTHYROXINE SODIUM 150 MCG TABLET PO SCH (06:37)
[2020-12-19 08:07] LABS: Mean Corpuscular Hgb Conc 32.2 g/dL (32-36)
[2020-12-19 08:18] LABS: Hematocrit (blood only) 25.8 % (37-47); Hemoglobin 8.3 g/dL (12.0-16.0); Mean Corpuscular Hemoglobin 35.8 pg (25-34); Mean Corpuscular Volume 111.2 fL (80-100); RDW Coefficient of Variation 18.5 % (11.5-14.5); RDW Standard Deviation 74.2 fL (36.4-46.3); Red Blood Count 2.32 M/uL (4.2-5.4); White Blood Count 2.25 K/uL (4.8-10.8)
[2020-12-19 08:35] LABS: Calcium 8.7 mg/dl (8.5-10.1); Est GFR (African American) 61.8; Est GFR (Non-African American) 53.3; Platelet Count 33 K/uL (130-400); Platelet Estimate Decreased (Normal); Potassium 3.5 mmol/L (3.5-5.1)
[2020-12-19] MEDS: METOPROLOL TARTRATE 50 MG TAB PO SCH ×2 (09:10→13:51)
[2020-12-19] MEDS: MAGNESIUM OXIDE 400 MG TAB PO SCH (09:10)
[2020-12-19] MEDS: ASCORBIC ACID 500 MG TAB PO SCH (09:10)
[2020-12-19] MEDS: FERROUS SULFATE 325 MG TAB PO SCH (09:10)
[2020-12-19] MEDS: MULTIVITAMIN TAB PO SCH (09:11)
[2020-12-19] MEDS: CHOLECALCIFEROL 1,000 UNITS 25 MCG TAB PO SCH (09:11)
[2020-12-19] MEDS: PANTOprazole 40 MG TAB PO SCH (09:11)
--- NOTE | 2020-12-19 09:36 | Anesthesiology Progress Note ---
Date of Service December 19, 2020 Anesthesia Post Procedure Vital Signs Vital Signs: Temp Pulse Resp BP BP Pulse Ox 12/19/20 08:19 36.9 C 83 18 115/74 94 12/18/20 23:33 37.4 C 86 16 114/74 95 12/18/20 19:15 36.9 C 80 16 113/71 96 12/18/20 17:11 36.3 C L 88 16 113/75 97 12/18/20 16:24 36.6 C 89 16 137/90 97 12/18/20 15:07 36.6 C 86 16 114/74 96 12/18/20 14:45 36.6 C 86 120/79 99 12/18/20 14:15 36.6 C 86 124/83 98 12/18/20 13:42 79 16 138/65 100 12/18/20 13:28 80 16 113/56 L 97 12/18/20 13:15 36.4 C L 82 20 101/59 L 100 12/18/20 12:20 36.4 C L 80 22 141/84 H 96 Notes Mental Status: alert / awake / arousable and participated in evaluation Patient Amnestic to Procedure: Yes Nausea / Vomiting: adequately controlled Pain: adequately controlled Airway Patency, RR, SpO2: stable & adequate BP & HR: stable & adequate Hydration State: stable & adequate Anesthetic Complications: no major complications apparent and Pt Satisfied with anesthetic care
--- NOTE | 2020-12-19 10:54 | Gastroenterology Progress Note ---
Date of Service December 19, 2020 Assessment & Plan (1) GI bleed: (2) Anemia: BRBPR in the setting of acute constipation with findings of hemorrhoids and AVM treated with APC. 1. Continue Anusol ID BID x [address] weeks[address] Kapoor. Patient may resume Eliquis. 3. Continue supportive care. Will sign off at this time. May contact GI special weapons and tactics officer if needed for emergencies. Admission and Anticipated Discharge Date Admission Date: December 15, 2020 Subjective Patient without any further bleeding. H&H is stable. Status post colonoscopy yesterday with sigmoid AVM s/p APC and hemorrhoids. No active bleeding noted. Review of Systems Constitutional: no problem reported Gastrointestinal: as per Subjective / HPI Physical Exam Constitutional: well developed and well nourished Eyes: EOM intact bilaterally Neck: normal visual inspection Respiratory: normal respiratory effort Skin: normal color Psychiatric: A+Ox3, euthymic affect Results & Data Results & Data ([facility]) Vital Signs (Past 12 Hours) Vital Signs Temp Pulse Resp BP Pulse Ox 12/19/20 08:19 36.9 C 83 18 115/74 94 12/18/20 23:33 37.4 C 86 16 114/74 95 Laboratory Results Abnormal lab results 12/19/20 12/19/20 Range/Units 07:35 07:35 WBC 2.25 L (4.8-10.8) K/uL RBC 2.32 L (4.2-5.4) M/uL Hgb 8.3 L (12.0-16.0) g/dL Hct 25.8 L (37-47) % MCV 111.2 H (80-100) fL MCH 35.8 H (25-34) pg RDW Std Deviation 74.2 H (36.4-46.3) fL RDW Coeff of Marcell 18.5 H (11.5-14.5) % Plt Count 33 L (130-400) K/uL Platelet Estimate Decreased L (Normal) Chloride 112 H (98-107) mmol/L BUN/Creatinine Ratio 8.0 L (10-20) PG Care Time/CCT Total # of Minutes Spent Total Time Spent with Patient: Total time spent is greater than 50% in coordination of care (as documented) at patient's floor/unit and/or counseling patient: Coding Level of Care Code 07180 Subseq Hosp Care Lvl 3 Diagnoses GI bleed K92.2 GI bleed type/associated pathology: unspecified gastrointestinal hemorrhage type Anemia D64.9 Anemia type: unspecified type (1) GI bleed GI bleed type/associated pathology: unspecified gastrointestinal hemorrhage type Qualified Code(s): K92.2 - Gastrointestinal hemorrhage, unspecified (2) Anemia Anemia type: unspecified type Qualified Code(s): D64.9 - Anemia, unspecified
[2020-12-19] MEDS: CYANOCOBALAMIN 500 MCG TABLET (VITAMIN B-12) PO SCH (12:32)
[2020-12-19] MEDS: PYRIDOXINE HCL 50 MG TAB PO SCH (12:32)
--- NOTE | 2020-12-19 13:11 | Discharge Summary ---
Date of Service December 19, 2020 Admission HPI Per Admitting Provider Mrs. Bee is a 70 year female with a history of Hypertension, Dyslipidemia, Metastatic Colon Cancer to Lung s/p Right Upper Lobectomy (currently on Avastin and 5FU last Tx 12/11/2020), DVT / Pulmonary Emboli, Obesity, Restrictive Lung Disease, COPD, Chronic Respiratory Failure, Osteopenia, Anemia/Pancytopenia secondary to chemotherapy, previous Seizure secondary to metabolic disorder, and Prior GI Bleeding from 4 Angiodysplastic Lesions in the [place] (09/2020) -- who was brought to the ER via EMS after sustaining a Fall secondary to Generalized Weakness/ Worsening Anemia/ and GI Blood Loss. Patient states that she had a normal bowel movement on 12/08/2020 but did not move her bowels again until 12/12/2020 - it was a large BM and she had hematochezia beginning with this BM. She has continued to experience approximately 3 bloody bowel movements per day through the weekend. Patient states this morning when she fell that she fell down onto her knees and she was feeling so weak, she was unable to get up. She called her on the phone who then activated EMS to assist. Patient did not sustain any injuries with this fall and she did not have any syncope or near syncope that contributed to her fall Otherwise, patient admits to a poor appetite in general, but her appetite is worse than usual over the past week or so -- food does not appeal to her and she describes nausea without vomiting recently. She denies any focal abdominal pain, but she does admit to rectal discomfort constantly. Current Hgb is 9.2 g/dL -- she normally has a Hgb in the 10.0 to 10.5 g/dL range. Principal Diagnosis Acute blood loss anemia, colonic bleed from AVM Discharge Exam Constitutional well developed and + obese; no acute distress Neck trachea midline, no thyromegaly Respiratory normal respiratory effort, lungs clear to auscultation Cardiovascular RRR, no murmur, no edema Gastrointestinal (Abdomen) normal bowel sounds, soft, nontender, no hepatosplenomegaly Musculoskeletal no cyanosis or clubbing, extremities motor strength 5/5 Skin no rashes, warm and dry Neurologic patellar DTR's 2+ bilat, sensation intact and PERRL, EOMI, accommodation nl, no face palsy, no dysarthria Psychiatric A+Ox3, euthymic affect Lymphatic no cervical or axillary lymphadenopathy Discharge Data Allergies Allergy/AdvReac Type Severity Reaction Status Date / Time oxaliplatin Allergy Severe Anaphylaxis Verified 12/18/20 12:20 thiopental Allergy Intermediate INCREASED Verified 12/18/20 12:20 BLEEDING WITH WISDOM TEETH SURG meperidine AdvReac Mild N/V Verified 12/18/20 12:20 morphine AdvReac Mild N/V Verified 12/18/20 12:20 Consultations 12/15/20 13:25 Consult Gastroenterology Routine Procedures Performed Operation Date: 12/16/20 16:45 <No data on this case meets the specified criteria> Operation Date: 12/18/20 16:00 Actual Procedures p Colonoscopy Hemostasis - Diego Kapoor MD Hospital Course (1) GI bleed: colonoscopy on 12/18 showed colonic AVM and hemorrhoids AVM cauterized, treat hemorrhoids with Anusol suppository BID x 2 weeks Hb stable at 8.3 for three days, no signs of bleeding for 4 days continue to hold Eliquis due to thrombocytopenia, see below (2) Thrombocytopenia: repeated on the day of discharge lower than normal, in the 30[address] Dr[address] Ramirez, oncologist likely from antineoplastic therapy, had a dose last week will check CBC on Friday 12/[address] Ramirez continue to hold anticoagulation until platelets improve (3) DVT (deep venous thrombosis): h/o such, typically on Eliquis held for several days with evidence of GI bleed and anemia will continue to hold due to thrombocytopenia, see above (4) Weakness: describes knees giving out, this is unusual for her will have PT/OT see her, she lives at home she feels stronger, refuses to consider rehab, has a walker at home, says she will be okay (5) COPD (chronic obstructive pulmonary disease): -- Continue usual inhalers. -- Duoneb nebulizer treatments as needed. (6) Restrictive lung disease: -- Continue usual inhalers. -- Duoneb nebulizer treatments as needed. (7) Hypercholesterolemia: -- Continue Simvastatin 40 mg daily. 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 Ramirez) Discharge Plan Discharge Items Patient Disposition: Home - Home Health Services Reason For Visit: GI BLEED Discharge Diagnosis: Acute blood loss anemia, bleeding due to colonic AVM Pancytopenia due to antineoplastic therapy Hemorrhoids Condition on Discharge: Good Goals: check lab work on Friday 12/[address] Ramirez Activity: Resume your previous activity Non-emergency contact: Primary Care Provider and Oncologist Call non-emergency contact if: you have any medication questions Follow-up/Referrals: Raimundo Garcia MD [Primary Care Provider] - 12/25/20 10:30 am (one week) Malik Ramirez DO [Physician] - 12/30/20 8:30 am (week of 12/29/20 APPT WITH DO RAMU NOT DO PORT DRAW PRIOR TO APPT.) Diet: Regular Ambulatory Orders: Complete Blood Count with Diff (Routine) Timeframe: [id number] Location: Determined by Patient Ordered By: Jean Carlos Carpenter Attending Provider Instructions: Medications: - ELIQUIS: hold this medication until instructed to resume by Dr. Ramirez, we are holding it due to low platelet count - ANUSOL: suppository twice a day for two weeks to treat internal hemorrhoids Acute blood loss anemia, bleeding from colonic AVM (arteriovenous malformation) that were cauterized, hemorrhoids hemoglobin has been stable, 8.3 for three days, blood pressure stable no signs of bleeding for 4 days now continue to hold eliquis monitor for any further bleeding use Anusol twice a day for two weeks Pancytopenia (low WBC, hemoglobin, platelets) due to chemotherapy platelets are quite low at [address] Ramirez, he recommends that you continue to hold Eliquis check CBC on Tuesday with results to him, contact his office in the afternoon for instructions on resuming Eliquis Weakness: continue home exercises use caution when walking, use your walker Pending Studies at Discharge: No Stand-Alone Forms: [employer], Smoking Cessation Medications and DC Order Prescriptions: New hydrocortisone acetate [Anusol-HC] 25 mg suppository 25 mg [place] BID 14 Days Qty: 24 RF: 1 Continued sertraline 50 mg tablet 50 mg PO HS Qty: 90 RF: 3 beclomethasone dipropionate 80 mcg/actuation HFA aerosol breath activated 1 inh Inhalation BID Qty: 34.8 RF: 1 Hold Instructions: pt unsure omeprazole 40 mg capsule,delayed release(DR/EC) 40 mg PO QAM Qty: 90 RF: 3 metoprolol tartrate 50 mg tablet 50 mg PO TID Qty: 90 RF: 3 ipratropium-albuterol 0.5 mg-3 mg(2.5 mg base)/3 mL solution for nebulization 3 ml INHALATION Q4H PRN (Reason: Shortness Of Breath Or Wheezing) Qty: 540 RF: 5 Arnuity Ellipta 100 mcg/actuation blister with device 1 inh inhalation DAILY RF: 0 multivitamin Tablet 1 tab PO QAM RF: 0 albuterol sulfate 90 mcg/actuation HFA aerosol inhaler 2 puff Inhalation Q6 PRN (Reason: Shortness Of Breath Or Wheezing) RF: 0 magnesium oxide 400 mg magnesium Tablet 400 mg PO QAM RF: 0 simvastatin 40 mg tablet 40 mg PO HS RF: 0 colestipol [Colestid] 1 gram tablet 1 g PO QDD RF: 0 levothyroxine 150 mcg capsule 150 mcg PO QAM RF: 0 cyanocobalamin (vitamin B-12) [Vitamin B-12] 1,000 mcg Tablet 1,000 mcg PO QDL RF: 0 pyridoxine (vitamin B6) [Vitamin B-6] 100 mg Tablet 100 mg PO QDL RF: 0 Vitamin E 180mg 180 mg PO QDD RF: 0 ascorbic acid (vitamin C) [Vitamin C] 500 mg Tablet 500 mg PO BIDM RF: 0 cholecalciferol (vitamin D3) [Vitamin D3] 1,000 unit Tablet,Chewable 2,000 unit PO BID RF: 0 potassium gluconate 595 mg (99 mg) Tablet 595 mg PO BID RF: 0 miscellaneous throat product liquid 15 ml PO BID PRN (Reason: Mouth Irritation) RF: 0 ferrous sulfate 325 mg (65 mg iron) tablet 325 mg PO BID Qty: 60 RF: 2 Discontinued Eliquis 5 mg tablet 5 mg PO BID RF: 0 Discharge Orders: Discharge Order (Routine); Ordered 12/19/20 Ordered By: Jean Carlos Nickerson/Other Patient Handouts: Bleeding Gastrointestinal, Anemia Chemo Admission Data Admit Date/Time: 12/15/20 10:41 Attending Provider: Jean Carlos Hussein Admit Provider: Jean Carlos Hussein Primary Care Provider: Raimundo Garcia Other Providers: Marcelo Marr ; Lea Ponce ; Merline Lange ; Diego Kapoor Other Interventions: Discharge Summary Assessment (RN) Last Done: 12/19/20 13:30 Coding Level of Care Code D/C Day Management >30 mins Diagnoses GI bleed K92.2 GI bleed type/associated pathology: unspecified gastrointestinal hemorrhage type Thrombocytopenia D69.6 DVT (deep venous thrombosis) I82.409 DVT location: lower extremity Affected thrombotic vein of extremity: unspecified vein of extremity Chronicity: unspecified Laterality: unspecified laterality Weakness R53.1 COPD (chronic obstructive pulmonary disease) J44.9 Restrictive lung disease J98.4 Hypercholesterolemia 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
== END 2020-12-19 14:25 | disposition home health service (06) | DRG 377 ==
LOC: ED 07:32 → 3N 10:41

== ENCOUNTER 2022-10-11 12:54 | Inpatient (IN) ==
--- NOTE | 2022-10-11 12:58 | History & Physical Report ---
Date of Service October 11, 2022 Assessment & Plan (1) Urinary tract infection symptoms: Plan: Shortness of breath, fever, fatigue, nausea/vomiting Suspect viral given about 1 week of URI symptoms with development of GI symptoms, imaging pending as noted With sputum change CTchest: Pending CTA/P with IV contrast: Pending Procalcitonin: Pending COVID: Negative, bio fire pending Metastatic adenocarcinoma of the colon with mets to lungs. Pulmonary mass with right lung collapse, multiple pulmonary nodules S/p right upper lobectomy 2014 Mediastinal mass with partial compression of the esophagus with some dilation Pending follow-up to [facility] for stenting Pending second opinion at [facility]. Patient is following with Dr. Weaver, is pending follow-up with his office before making a decision CT 08/2022: Collapse of the right lung, 3.4 x 2.3 cm right hilar mass. Small right-sided pleural effusion, inferior lingular lobe 1.5 cm nodule, another 1.1 cm left upper lobe nodule, left lower lobe 1.1 cm pulmonary nodule. Elevated right hemidiaphragm. Minimal mediastinal lymphadenopathy With exertional shortness of breath at baseline, but no baseline oxygen requirement during the day and oxygen and CPAP at night Mets Adenocarcinoma Tx/Hx Review Per ONC hnotes Diagnosed on colonoscopy 11/2007 Transbronchial biopsy of right upper lobe mass 12/2007 consistent with metastatic colonic adenocarcinoma, high-grade FOLFOX and cetuximab 12/2007distal transverse and proximal descending colectomy. pT3, pN1, pM1. FOLFOX/cetuximab resumed postop 09/2008: Staging PET/CT with improvement Completed FOLFOX/cetuximab 02/2009. 07/2011 PET/CT with left upper lobe new nodule suggestive of progressive metastasis 07/2011: VATS wedge excision of left upper lobe lesion, on pathology consistent with metastatic adenocarcinoma of the colon FOLFIRI/cetuximab initiated 07/2011. Additional course of salvage radiation therapy 11/2014: Enlarging right paramediastinal soft tissue mass 12/2014: Wedge resection right middle lobe with recurrent mass 3.7 x 3.5 x 2.9 cm 01/2016: PET/CT suggesting local versus regional recurrence just outside radiated pericardiac region anterior to right hilum. Not thought to be a candidate for further surgery. Did receive additional salvage radiation treatment to right hilar nodule 04/2016: Right hilar mass consistent with metastatic disease, received radiati on therapy 09/2017: Enlarging FDG avid right hilar area, irinotecan plus cetuximab q. 14 days, subsequently on single agent cetuximab 04/2019 started Lonsurf but with progression. Switched to Stivarga but continued to have progression 09/2019: Rechallenge with FOLFOX therapy. Reacted to oxaliplatin, continued 5FEU and leukocoria in alone. Cholecystitis requiring cholecystectomy, Avastin added subsequently. 09/2020 AVMs requiring cauterization on Hague Resumed high-dose 5FEU, leuko-Corvin, the VAC is in [place] in October. Continue to have AVM bleeding Anticoagulated due to PE, Eliquis held for thrombocytopenia and subsequently resumed once improved Saw Dr. Marcus 01/2021 who recommended continuing glucocorticoid and, 5a few, +/- Avastin until definitive progression seen 04/2021: Right lung nodule biopsy with metastatic colorectal adenocarcinoma. No mutation in K-rosa maria, no BRAF mutation, HER2 negative by IHC Subsequent CTs 04/2021, 09/2021, 12/[address] scan 05/2022 with disease progression; switched to a irinotecan/panitumumab 08/2022: White out of right lung with complete collapse. Interval enlargement of mediastinal lymph nodes. Pulmonary was consulted, not a candidate for intervention with stenting at that time. Radiation oncology reviewed at tumor conference; guarded prognosis. To follow-up with [facility] for further History of sinus tachycardia versus MAT Had cardiology follow-up and mobile telemetry 06/18. Subsequently found to have sinus tachycardia with average heart rate of 102 and occasional PVCs and PA Cs but no evidence of AV block, pauses, A. fib, or a flutter Echo 12/2021: EF 70%, grade 1 diastolic dysfunction Continued on amiodarone daily Past history of PE Continued on apixaban 5 mg p.o. twice daily HLD Continue simvastatin 20 mg daily Depression/anxiety Continue sertraline 50 mg daily GERD Continue PPI, convert omeprazole to Protonix while inpatient Hypothyroidism Continue Synthroid 150 mcg daily TSH/T4 pending VU Continue CPAP nightly DVT prophylaxis: Anticoagulated on DOAC Diet: N.p.o. pending initial evaluation, heart healthy if no bronc/procedure required CODE STATUS: Conditional code Disposition: PCU (2) Vomiting: (3) Colon cancer metastasized to lung: (4) Chronic respiratory failure with hypoxia: (5) Antineoplastic chemotherapy induced pancytopenia: (6) History of pulmonary embolism: (7) Hypercholesterolemia: (8) Hypothyroidism: (9) VU (obstructive sleep apnea): (10) Port-A-Cath in place: (11) Pulmonary mass: (12) Seizures due to metabolic disorder: (13) Status post cholecystectomy: History of Present Illness Primary Care Provider: Bacilio Garcia MD Marie is a 72-year-old female with a past medical history of progressive metastatic colon cancer with history of right lung collapse who presented to the cancer clinic for follow-up and was found to have fevers, shortness of breath, nausea, vomiting, and fatigue. Patient was recommended for inpatient treatment and evaluation of pneumonia, patient refused ER evaluation but was agreeable to and recommended for direct admission to medical service. Case was discussed and signed out with hematology/oncology, patient is with fevers/shortness of breath/fatigue but is otherwise hemodynamically stable and is satting normally on room air with normal blood pressure and heart rate. She is recommended for admission for evaluation and treatment of potential pneumonia; due to medical complexity and comorbidity, and history of right lung collapse patient will be admitted to PCU level of care. S Mets Adenocarcinoma Tx/Hx Review Per ONC hnotes Diagnosed on colonoscopy 11/2007 Transbronchial biopsy of right upper lobe mass 12/2007 consistent with metastatic colonic adenocarcinoma, high-grade FOLFOX and cetuximab 12/2007distal transverse and proximal descending colectomy. pT3, pN1, pM1. FOLFOX/cetuximab resumed postop 09/2008: Staging PET/CT with improvement Completed FOLFOX/cetuximab 02/2009. 07/2011 PET/CT with left upper lobe new nodule suggestive of progressive metastasis 07/2011: VATS wedge excision of left upper lobe lesion, on pathology consistent with metastatic adenocarcinoma of the colon FOLFIRI/cetuximab initiated 07/2011. Additional course of salvage radiation therapy 11/2014: Enlarging right paramediastinal soft tissue mass 12/2014: Wedge resection right middle lobe with recurrent mass 3.7 x 3.5 x 2.9 cm 01/2016: PET/CT suggesting local versus regional recurrence just outside radiated pericardiac region anterior to right hilum. Not thought to be a candidate for further surgery. Did receive additional salvage radiation treatment to right hilar nodule 04/2016 07/2017: Right hilar mass consistent with metastatic disease, received radiation therapy 09/2017: Enlarging FDG avid right hilar area, irinotecan plus cetuximab q. 14 days, subsequently on single agent cetuximab 04/2019 started Lonsurf but with progression. Switched to Stivarga but continued to have progression 09/2019: Rechallenge with FOLFOX therapy. Reacted to oxaliplatin, continued 5FEU and leukocoria in alone. Cholecystitis requiring cholecystectomy, Avastin added subsequently. 09/2020 AVMs requiring cauterization on Hague Resumed high-dose 5FEU, leuko-Corvin, the VAC is in [place] in October. Continue to have AVM bleeding Anticoagulated due to PE, Eliquis held for thrombocytopenia and subsequently resumed once improved Saw Dr. Marcus 01/2021 who recommended continuing glucocorticoid and, 5a few, +/- Avastin until definitive progression seen 04/2021: Right lung nodule biopsy with metastatic colorectal adenocarcinoma. No mutation in K-rosa maria, no BRAF mutation, HER2 negative by IHC Subsequent CTs 04/2021, 09/2021, 12/[address] scan 05/2022 with disease progression; switched to a irinotecan/panitumumab 08/2022: White out of right lung with complete collapse. Interval enlargement of mediastinal lymph nodes. Pulmonary was consulted, not a candidate for intervention with stenting at that time. Radiation oncology reviewed at tumor conference; guarded prognosis. To follow-up with [facility] for further Outpatient lab review 10/11/2022: New leukocytosis to 12.79. Hemoglobin 9.8, baseline around 1011 with MCV 103. Sodium normal, potassium normal at 3.7. Creatinine is with normal baseline, creatinine day of admission 0.76. No transaminitis. Marie is seen at the bedside. She reports about 1 week ago she had some upper respiratory symptoms including shortness of breath, dry cough, and increasing weakness. In the last day she has also developed nausea, nonbloody/nonbilious/nonmelanotic emesis and has had nonbloody nonmelanotic diarrhea as well. She feels generally wiped out. She is not having chest pain, chest pressure. She has not lost consciousness, but feels globally weak. She is concerned about her metastatic cancer, cancer history as reviewed above. She did take her medications this morning. She reports she is not in pain at time of assessment, sometimes she does have pain which radiates into her back. Medical History: Reviewed Medications: Reviewed Surgical History: Reviewed Allergies: Reviewed Social History: Reviewed, no tobacco/etoh Code Status: Condition code, no CPR/shock/meds, OK with intubation Allergies Allergy/AdvReac Type Severity Reaction Status Date / Time diphtheria,pertussis Allergy Severe "Arm Verified 09/07/22 16:12 (acellular),te swelled [From Adacel(Tdap up," fever Adolesn/Adult)(PF)] irinotecan Allergy Severe perforations Verified 09/07/22 16:12 in bowel oxaliplatin Allergy Severe Anaphylaxis Verified 09/07/22 16:12 thiopental Allergy Intermediate INCREASED Verified 09/07/22 16:12 BLEEDING WITH WISDOM TEETH SURG anastrozole [From Arimidex] AdvReac Severe CAUSED Verified 09/07/22 16:12 INTERNAL BLEEDING meperidine AdvReac Mild N/V Verified 09/07/22 16:12 morphine AdvReac Mild N/V Verified 09/07/22 16:12 Home Medications Medication Instructions Recorded Confirmed Type albuterol sulfate 90 mcg/actuation 2 puff inhalation Q6 PRN Shortness 08/07/18 09/23/22 History aerosol inhaler Of Breath Or Wheezing multivitamin 1 tab PO QAM 08/07/18 09/23/22 History ascorbic acid (vitamin C) 500 mg 500 mg PO BIDM 11/02/19 09/23/22 History tablet (Vitamin C) pyridoxine (vitamin B6) 100 mg 100 mg PO QDL 10/12/20 09/23/22 History tablet (Vitamin B-6) cyanocobalamin (vitamin B-12) 1,000 mcg PO DAILY 01/07/21 09/23/22 History 1,000 mcg tablet (Vitamin B-12) ferrous sulfate 325 mg (65 mg 325 mg PO DAILY #60 tabs 01/04/22 09/23/22 Rx iron) tablet simvastatin 20 mg tablet 20 mg PO QPM #90 tabs 01/26/22 09/23/22 Rx colestipol 1 gram tablet (Colestid) 1 g PO DAILY #90 tabs 05/06/22 09/23/22 Rx amiodarone 200 mg tablet 200 mg PO DAILY #90 tabs 06/28/22 09/23/22 Rx sertraline 50 mg tablet 50 mg PO HS #90 tabs 07/02/22 09/23/22 Rx apixaban 5 mg tablet (Eliquis) 5 mg PO BID #180 tabs 07/08/22 09/23/22 Rx ipratropium 0.5 mg-albuterol 3 mg 3 ml inhalation Q4H PRN Shortness 08/05/22 09/07/22 Rx (2.5 mg base)/3 mL nebulization Of Breath Or Wheezing #540 mL soln prednisone 20 mg tablet 20 mg PO DIRECTED #12 tabs 08/28/22 09/23/22 Rx vitamin E (dl, acetate) 180 mg 180 mg PO DAILY 08/28/22 09/23/22 History (400 unit) capsule omeprazole 40 mg capsule,delayed 40 mg PO QAM #90 caps 08/31/22 09/23/22 Rx release ondansetron 8 mg disintegrating 8 mg translingual Q8 PRN Nausea 09/07/22 09/23/22 History tablet Magic Mouthwash 300 mL mouthwash 10 ml mucous membrane .Q3-4 hr PRN 09/23/22 09/23/22 History #300 mL cholecalciferol (vitamin D3) 25 25 mcg PO DAILY 09/23/22 09/23/22 History mcg (1,000 unit) capsule diphenoxylate-atropine 2.5 2 tab PO .Q6-8 hr PRN Diarrhea 09/23/22 09/23/22 History mg-0.025 mg tablet (Lomotil) [id number] C-Mn 500 1 cap PO BID 09/23/22 09/23/22 History mg-400 mg capsule (Glucosamine Chondroitin Maximum Strength) levothyroxine 150 mcg capsule 150 mcg PO DAILY 09/23/22 09/23/22 History magnesium oxide 400 mg PO BID 09/23/22 09/23/22 History potassium chloride 20 mEq 20 meq PO BID 09/23/22 09/23/22 History tablet,extended release prednisolone acetate 1 % eye 1 drp ophthalmic (eye) DAILY 09/23/22 09/23/22 History drops,suspension prochlorperazine maleate 10 mg 10 mg PO Q6H PRN 09/23/22 09/23/22 History tablet (Compazine) valacyclovir 1 gram tablet 1,000 mg PO DAILY PRN 09/23/22 09/23/22 History Past Med/Surg History Medical History (Updated 10/11/22 @ 15:32 by Joe Evans MD) Acute GI bleeding Asthma Bacteremia Bilateral pulmonary embolism hx of 2012--reason for eliquis daily (had pneumonia right before and pt states she was not moving much) Candidiasis of intestine Chemotherapy adverse reaction Chronic diastolic congestive heart failure Colon cancer metastasized to lung (09/18/08) Depression Diverticulosis of colon DVT, lower extremity left leg, same time as PE Elevated lactic acid level Essential hypertension GERD (gastroesophageal reflux disease) GI bleed History of anesthesia reaction difficulty waking at times as well as hx of waking up during sx (woke up during port placement) History of chemotherapy History of gastric ulcer History of immunocompromised state History of pulmonary embolus (PE) History of radiation therapy Hyperlipidemia Hypertension Hypothyroidism Hypoxia Infection due to Port-A-Cath Morbid obesity with BMI of 40.0-44.9, adult Neutropenia On anticoagulant therapy eliquis daily On home oxygen therapy 2L N/C at hs Osteoarthritis Radiation pneumonitis Seizures due to metabolic disorder x2-- one d/t medication anaphylaxis, and pt states second d/t low magnesium in 09/2019 Septicemia due to coagulase-negative staphylococcal infection Tachycardia Weakness Surgical History H/O: hysterectomy History of bilateral tubal ligation History of bladder suspension procedure History of bronchoscopy x2-3 History of cholecystectomy open 04/2020 History of colon surgery d/t colon cancer History of colonoscopy with polypectomy History of esophagogastroduodenoscopy (EGD) History of lobectomy of lung right upper lobe removed 06/2008 @ [facility] d/t colon cancer metastasis to lung History of lung surgery wedge resection of left lung d/t cancer History of radioactive iodine thyroid ablation History of removal of cyst off finger History of tonsillectomy History of vascular access device x2--A port in place right side of chest History of ventral hernia repair History of wisdom tooth extraction Family History Mother , early 80s of thyroid cancer Thyroid cancer Heart disease Family history of reaction to anesthesia at age 80, took 2 days to wake after thyroidectomy Father , age 81 of gangrene complications No problems noted. Uncle Colorectal cancer Sister Family history of diabetes mellitus Sister Family history of diabetes mellitus Brother Myocardial infarction Other Family history non-contributory Denies family history of Ovarian cancer Prostate cancer Breast cancer Social History (Updated 09/23/22 @ 10:30 by Emely Carcamo RN) Smoking Status: Never smoker Second Hand Exposure: Yes (father smoked); Hx Alcohol Use: No Hx Substance Use: No Preferred Language: Israeli Communication Ability: Effective Visual Impairment: No Limitations Hearing Ability: Normal Secondary School Registrar Required: No Beliefs That Will Affect Care: None marital status: Current Living Situation: Spouse Current Living Situation Comment: Lives with and son current occupational status: retired 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 [email or web address] 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 NAD. Cooperative. HEENT: Atraumatic, normocephalic. Vision and hearing grossly intact Thorax: Right Port-A-Cath in place Pulm: Diminished breath sounds on the right, scant wheeze in right upper lobe. Left lung gibbs without wheeze/rales/crackles. No respiratory distress, breathing well on room air Cardiac: RRR, trace murmur. Radial pulses intact and symmetrical. Abdominal: Nontender, nondistended, soft. BS present. Extremities: Warm and dry PG Care Time/CCT Total # of Minutes Spent Total Time Spent with Patient: Total time spent is greater than 50% in coordination of care (as documented) at patient's floor/unit and/or counseling patient: Coding Level of Care Code 19259 Initial Inpt Care Lvl 3 Diagnoses Urinary tract infection symptoms R39.9 Vomiting R11.10 Colon cancer metastasized to lung C18.9; C78.00 Chronic respiratory failure with hypoxia J96.11 Antineoplastic chemotherapy induced pancytopenia D61.810; T45.1X5A History of pulmonary embolism Z86.711 Hypercholesterolemia E78.00 Hypothyroidism E03.9 VU (obstructive sleep apnea) G47.33 Port-A-Cath in place Z95.828 Pulmonary mass R91.8 Seizures due to metabolic disorder R56.9; E88.9 Status post cholecystectomy Z90.49
[2022-10-11] MEDS ORDERED: ALBUT/IPRATROP 3MG/0.5MG NEB 3 ML VIAL NEB PRN (15:41)
[2022-10-11] MEDS ORDERED: INFLUENZA VACCINE HIGH DOSE PF 65+ 0.7 ML SYR IM ONE (15:47)
[2022-10-11 16:38] LABS: Troponin I High Sensitivity 9.5 pg/ml (0-14)
[2022-10-11 16:43] LABS: INR 1.2 (0.9-1.1); Partial Thromboplastin Ratio 1.5
[2022-10-11 17:09] LABS: C Reactive Protein 32.29 mg/dl (0-0.5)
[2022-10-11] MEDS ORDERED: OPTIRAY 350 100ml IV ONE (17:44)
[2022-10-11 17:53] LABS: Adenovirus PCR Not Detected (NotDetected); Bordetella parapertussis PCR Not Detected (NotDetected); Bordetella pertussis PCR Not Detected (NotDetected); Chlamydia pneumoniae PCR Not Detected (NotDetected); Coronavirus 229E PCR Not Detected (NotDetected); Coronavirus CoV-2 (COVID19)PCR Not Detected (NotDetected); Coronavirus HKU1 PCR Not Detected (NotDetected); Coronavirus NL63 PCR Not Detected (NotDetected); Coronavirus OC43PCR Not Detected (NotDetected); Human Metapneumovirus PCR Not Detected (NotDetected); Influenza A PCR Not Detected (NotDetected); Influenza B PCR Not Detected (NotDetected); Mycoplasma pneumoniae PCR Not Detected (NotDetected); Parainfluenza Virus 1 PCR Not Detected (NotDetected); Parainfluenza Virus 2 PCR Not Detected (NotDetected); Parainfluenza Virus 3 PCR Not Detected (NotDetected); Parainfluenza Virus 4 PCR Not Detected (NotDetected); Respiratory Syncytial VirusPCR Not Detected (NotDetected); Rhinovirus/Enterovirus PCR Not Detected (NotDetected)
[2022-10-11 17:55] LABS: HCO3 VBG 29 mmol/L; Oxygen Saturation VBG < 60.0 %; PCO2 VBG 49 mmHg (38-50); PO2 VBG 22 mmHg; pH VBG 7.38 (7.36-7.41)
--- NOTE | 2022-10-11 17:57 | CT Scan Report ---
CT OF THE CHEST WITH IV CONTRAST CLINICAL HISTORY: Metastatic adenocarcinoma, shortness of breath/fever, hx right lung collapse COMPARISON STUDY: Chest CT September 07, 2022. TECHNIQUE: Following IV administration of 82 mL of Optiray, helical axial images of the chest were o btained. Sagittal and coronal reconstructions were viewed as well as maximal intensity projections o n an independent 3-D workstation. Automated exposure control was utilized for the study. A dose low ering technique was utilized adhering to the principles of ALARA. CT DOSE: 2372.78 mGy.cm FINDINGS: Postoperative findings consistent with right upper lobectomy are noted. There is persisten t right lung collapse, as shown on CT of September 07, 2022. Occlusion of the bronchus intermedius is a gain noted. Multiple masses within the right lung are obscured by adjacent collapsed lung. There is a small right pleural effusion. No pneumothorax is present. Pathologic mediastinal and bilateral hilar lymphadenopathy has progressed since CT of September 07, 2022. Index subcarinal lymph node measures 3. 3 x 2.7 cm. It previously measured 3.4 x 2.3 cm. Index vascular node measures 2.2 x 1.8 cm. A previou s measured 1.6 x 1.4 cm. Several lung metastases have increased in size. Index lingular lesion measur es 1.6 cm. It previously measured 1.5 cm. There is a trace left pleural effusion. No suspicious lesio ns within the bony thorax are noted. No central pulmonary emboli are identified. The remainder of the pulmonary arteries are suboptimally assessed due to respiratory motion. CT of the abdomen and pelvis will be reported separately. IMPRESSION: 1. Progression of metastatic disease since CT of September 07, 2022, as described above. Increase in me diastinal and bilateral hilar lymphadenopathy and several lung metastases. 2. Redemonstration of right lung collapse. Occlusion of the bronchus intermedius due to tumor. Small right and trace left pleural effusions. ACT 112: Negative or not required by law. Electronically signed by: Darron Price M.D. 10/11/2022 5:54 PM
--- NOTE | 2022-10-11 18:09 | CT Scan Report ---
CT OF THE ABDOMEN AND PELVIS WITH CONTRAST CLINICAL HISTORY: Metastatic adenocarcinoma, fever/nausea/vomiting COMPARISON STUDY: CT of the abdomen and pelvis August 14, 2022. TECHNIQUE: Following IV administration of 82 mL of Optiray, axial images of the abdomen and pelvis we re obtained from the lung bases to the proximal femurs. Images were reviewed in the axial, sagittal, and coronal planes. IV contrast was administered without complication. Automated exposure control wa s utilized for the study. A dose lowering technique was utilized adhering to the principles of ALARA . FINDINGS: Please note that the chest CT will be reported separately. Right lung collapse is better de picted on that exam. Multiple pulmonary metastases have increased in size since prior CT of August 14, 2022. Hilar and mediastinal adenopathy has progressed. No pneumatosis, free air or portal venous gas is present. The gallbladder surgically absent. A 3.2 cm segment 6 hepatic metastasis has increas ed in size since prior CT when measured 2.1 cm. There are no additional hepatic lesions. The adrenal glands, spleen and pancreas are unremarkable. 3 mm calculus within the upper pole of the right kidney is noted. There are no ureteral calculi. There is no hydronephrosis. There are bilateral parapelvic cysts. Mild bilateral symmetric perinephric straining is noted. Colon is mildly distended and gas-lay led. The distal sigmoid colon and rectum are decompressed. There is no convincing evidence for a volv ulus. No suspicious lesions within the visualized skeletal structures are present. IMPRESSION: 1. Progression of hepatic, pulmonary and juan metastases since CT of August 14, 2022, as describe d above. 2. Mild gaseous distention of the colon with decompressed distal sigmoid colon and rectum. This may r eflect a colonic ileus. A colonic obstruction is considered less likely however radiographic follow-u p is recommended. 3. Mild bilateral perinephric stranding which is of doubtful significance although could be correlate d with urinalysis. ACT 112: Negative or not required by law. Electronically signed by: Darron Price M.D. 10/11/2022 6:06 PM
[2022-10-11] MEDS: Patient's HEIGHT &/or WEIGHT Needed SCH ×3 (18:16→20:33)
[2022-10-11] MEDS: MAGNESIUM OXIDE 400 MG TAB PO SCH (20:31)
[2022-10-11] MEDS: SERTRALINE HCL 50 MG TABLET PO SCH (20:32)
[2022-10-11] MEDS: SIMVASTATIN 20 MG TAB PO SCH (20:32)
[2022-10-11] MEDS: APIXABAN 5 MG TABLET PO SCH (20:32)
[2022-10-11 21:53] LABS: Appearance Urine Clear (Clear); Bacteria Urine Automated 1+ (Negative); Blood Urine 2+ (Negative); Color Urine Dark Yellow; Epithelial Cell Urine Auto >30 /lpf (0-5); Glucose Urine UA Negative (Negative); Ketones Urine 2+ (Negative); Leukocyte Esterase Urine Trace (Negative); Nitrite Urine Negative (Negative); Protein Urine 1+ (Negative); Specific Gravity Urine > 1.045 (1.000-1.030); Urobilinogen Urine Negative (Negative); pH Urine 5.5 (4.5-7.5)
[2022-10-11 21:54] LABS: Bilirubin Urine 1+ (Negative)
[2022-10-11 22:09] LABS: Cast Urine Automated 0 /lpf (0-5)
[2022-10-12] MEDS: Patient's HEIGHT &/or WEIGHT Needed SCH ×2 (00:37→03:27)
[2022-10-12] MEDS: LEVOTHYROXINE SODIUM 150 MCG TABLET PO SCH (05:51)
[2022-10-12 06:04] LABS: Basophils # (auto) 0.02 K/uL (0-0.2); Basophils % (auto) 0.2 %; Eosinophils # (auto) 0.14 K/uL (0-0.50); Eosinophils % (auto) 1.2 %; Hematocrit (blood only) 26.3 % (34.1-44.9); Hemoglobin 8.5 g/dl (12.0-16.0); Immature Granulocytes # (auto) 0.05 K/uL (0.00-0.02); Immature Granulocytes % (auto) 0.4 %; Lymphocytes % (auto) 5.1 %; Mean Corpuscular Hemoglobin 32.7 pg (25.0-34.0); Mean Corpuscular Hgb Conc 32.3 g/dL (32.0-36.0); Mean Corpuscular Volume 101.2 fL (80.0-100.0); Mean Platelet Volume 10.8 fL (9.4-12.3); Monocytes # (auto) 1.53 K/uL (0.24-0.82); Monocytes % (auto) 13.1 %; Neutrophils # (auto) 9.38 K/uL (1.4-6.5); Platelet Count 138 K/uL (130-400); RDW Coefficient of Variation 14.2 % (11.5-14.5); RDW Standard Deviation 52.2 fL (36.4-46.3); White Blood Count 11.72 K/ul (4.8-10.8)
[2022-10-12 06:32] LABS: Albumin Globulin Ratio 0.9 (0.9-2); Albumin Level 2.8 gm/dl (3.4-5.0); BUN Creatinine Ratio 13.9 (10-20); Bilirubin,Total 0.9 mg/dl (0.2-1.0); Calcium 8.3 mg/dl (8.5-10.1); Creatinine Clr Calc Pharmacy 79.7 ml/min; Est GFR (African American) 87.9 ml/min; Est GFR (Non-African American) 75.8 ml/min; Potassium 3.6 mmol/L (3.5-5.1); Total Protein 5.8 gm/dl (6.0-8.3)
--- NOTE | 2022-10-12 07:33 | Pulmonary Consultation ---
Date of Consultation October 12, 2022 Assessment & Plan (1) Abnormal CT scan of lung: (2) Atelectasis of right lung: (3) Restrictive lung disease: (4) Chronic respiratory failure with hypoxia: (5) VU (obstructive sleep apnea): (6) Elevated diaphragm: (7) Multiple pulmonary nodules: Plan CT chest 10/11/2022 personally reviewed: Collapse of the right lung, there is mediastinal lymphadenopathy/mass 3.3*2.7cm which seems to be pushing on the RBI Pulmonary nodules appreciated on the left side, small right-sided pleural effusion Elevated the right hemidiaphragm Medius and lymphadenopathy seems to be getting worse compared to last CAT scan which was done in August --Pulmonary mass with collapse of the right lung, multiple pulmonary nodules Following up with cancer care currently on treatment for metastatic colon cancer Patient supposed to follow-up with [facility] on 10/27/2022 Overall prognosis unfortunately guarded although patient has good functional status --Exertional shortness of breath Multifactorial Two thirds of the right lung of the patient has been removed, she also got radiation to the right lower lobe-- > collapse of the right lower lobe on the latest CAT scan 08/202222 Grade 1 diastolic dysfunction might also be playing a role BMI of 39 also playing its part 6MWT 09/24/22:Patient walked 700 feet, she was able to maintain her saturation 90% on room air 2D echo 01/06/2022: EF 70%, grade 1 diastolic dysfunction, right ventricle is not well visualized --VU Patient has been using CPAP since 2006 Continue with CPAP --Elevated right hemidiaphragm Likely from right upper and right middle lobectomy done in the past Incentive spirometry will be beneficial -- Nocturnal hypoxia Uses oxygen bled into the CPAP -- Metastatic adenocarcinoma of the colon with mets to the lung S/p right upper lobectomy [place] 2007 Dr. Zimmerman, right middle lobectomy was [place] [address] Torres Patient follows up with cancer care Plan: Unfortunately there is not much to offer for the right lung collapse. Stenting can be thought of but it will be not easy given the patient had radiation done in the past as well Overall the poor prognosis, palliative care should be thought of I do not think right-sided lung collapse has any relevance in patient's presentation this time. Case was discussed with RN at bedside Please note the above document was generated using voice recognition software. It may contain grammatical, syntax or spelling errors.Any formal questions or concerns about the content, text or information contained within the body of this dictation should be directly addressed to the provider for clarification. History of Present Illness Attending Physician: Antonio Roberto MD History of Present Illness 72-year-old female mid to the hospital for nausea and vomiting along with diarrhea Past medical history:Metastatic colon cancer with mets to the lungs s/p right upper and right middle lobectomy and radiation,A. fib on amiodarone and apixaban, hypothyroidism, GERD, dyslipidemia Patient was last seen by me in the clinic on 09/24/2022 Pulmonary were consulted because of right-sided lung collapse At the time of examination patient was saturating 91% on room air. She was not in any respiratory distress Denies any chest pain, no cough. She says she feels little better compared to when she came to the hospital. No nausea right now. Did have an episode of diarrhea last night. She has been having diarrhea nausea and vomiting since . No hemoptysis. No fever or chills No headache, no blurry vision Allergies Allergy/AdvReac Type Severity Reaction Status Date / Time diphtheria,pertussis Allergy Severe "Arm Verified 09/07/22 16:12 (acellular),te swelled [From Adacel(Tdap up," fever Adolesn/Adult)(PF)] irinotecan Allergy Severe perforations Verified 09/07/22 16:12 in bowel oxaliplatin Allergy Severe Anaphylaxis Verified 09/07/22 16:12 thiopental Allergy Intermediate INCREASED Verified 09/07/22 16:12 BLEEDING WITH WISDOM TEETH SURG anastrozole [From Arimidex] AdvReac Severe CAUSED Verified 09/07/22 16:12 INTERNAL BLEEDING meperidine AdvReac Mild N/V Verified 09/07/22 16:12 morphine AdvReac Mild N/V Verified 09/07/22 16:12 Home Medications Medication Instructions Recorded Confirmed Type albuterol sulfate 90 mcg/actuation 2 puff inhalation Q6 PRN Shortness 08/07/18 09/23/22 History aerosol inhaler Of Breath Or Wheezing multivitamin 1 tab PO QAM 08/07/18 09/23/22 History ascorbic acid (vitamin C) 500 mg 500 mg PO BIDM 11/02/19 09/23/22 History tablet (Vitamin C) pyridoxine (vitamin B6) 100 mg 100 mg PO QDL 10/12/20 09/23/22 History tablet (Vitamin B-6) cyanocobalamin (vitamin B-12) 1,000 mcg PO DAILY 01/07/21 09/23/22 History 1,000 mcg tablet (Vitamin B-12) ferrous sulfate 325 mg (65 mg 325 mg PO DAILY #60 tabs 01/04/22 09/23/22 Rx iron) tablet simvastatin 20 mg tablet 20 mg PO QPM #90 tabs 01/26/22 09/23/22 Rx colestipol 1 gram tablet (Colestid) 1 g PO DAILY #90 tabs 05/06/22 09/23/22 Rx amiodarone 200 mg tablet 200 mg PO DAILY #90 tabs 06/28/22 09/23/22 Rx sertraline 50 mg tablet 50 mg PO HS #90 tabs 07/02/22 09/23/22 Rx apixaban 5 mg tablet (Eliquis) 5 mg PO BID #180 tabs 07/08/22 09/23/22 Rx ipratropium 0.5 mg-albuterol 3 mg 3 ml inhalation Q4H PRN Shortness 08/05/22 09/07/22 Rx (2.5 mg base)/3 mL nebulization Of Breath Or Wheezing #540 mL soln prednisone 20 mg tablet 20 mg PO DIRECTED #12 tabs 08/28/22 09/23/22 Rx vitamin E (dl, acetate) 180 mg 180 mg PO DAILY 08/28/22 09/23/22 History (400 unit) capsule omeprazole 40 mg capsule,delayed 40 mg PO QAM #90 caps 08/31/22 09/23/22 Rx release ondansetron 8 mg disintegrating 8 mg translingual Q8 PRN Nausea 09/07/2208/29 History tablet Magic Mouthwash 300 mL mouthwash 10 ml mucous membrane .Q3-4 hr PRN 09/23/22 09/23/22 History #300 mL cholecalciferol (vitamin D3) 25 25 mcg PO DAILY 09/23/22 09/23/22 History mcg (1,000 unit) capsule diphenoxylate-atropine 2.5 2 tab PO .Q6-8 hr PRN Diarrhea 09/23/22 09/23/22 History mg-0.025 mg tablet (Lomotil) [id number] C-Mn 500 1 cap PO BID 09/23/22 09/23/22 History mg-400 mg capsule (Glucosamine Chondroitin Maximum Strength) levothyroxine 150 mcg capsule 150 mcg PO DAILY 09/23/22 09/23/22 History magnesium oxide 400 mg PO BID 09/23/22 09/23/22 History potassium chloride 20 mEq 20 meq PO BID 09/23/22 09/23/22 History tablet,extended release prednisolone acetate 1 % eye 1 drp ophthalmic (eye) DAILY 09/23/22 09/23/22 History drops,suspension prochlorperazine maleate 10 mg 10 mg PO Q6H PRN 09/23/22 09/23/22 History tablet (Compazine) valacyclovir 1 gram tablet 1,000 mg PO DAILY PRN 09/23/22 09/23/22 History Patient History Medical History (Updated 10/11/22 @ 15:32 by Joe Evans MD) Acute GI bleeding Asthma Bacteremia Bilateral pulmonary embolism hx of 2012--reason for eliquis daily (had pneumonia right before and pt states she was not moving much) Candidiasis of intestine Chemotherapy adverse reaction Chronic diastolic congestive heart failure Colon cancer metastasized to lung (09/18/08) Depression Diverticulosis of colon DVT, lower extremity left leg, same time as PE Elevated lactic acid level Essential hypertension GERD (gastroesophageal reflux disease) GI bleed History of anesthesia reaction difficulty waking at times as well as hx of waking up during sx (woke up during port placement) History of chemotherapy History of gastric ulcer History of immunocompromised state History of pulmonary embolus (PE) History of radiation therapy Hyperlipidemia Hypertension Hypothyroidism Hypoxia Infection due to Port-A-Cath Morbid obesity with BMI of 40.0-44.9, adult Neutropenia On anticoagulant therapy eliquis daily On home oxygen therapy 2L N/C at hs Osteoarthritis Radiation pneumonitis Seizures due to metabolic disorder x2-- one d/t medication anaphylaxis, and pt states second d/t low magnesium in 09/2019 Septicemia due to coagulase-negative staphylococcal infection Tachycardia Weakness Surgical History H/O: hysterectomy History of bilateral tubal ligation History of bladder suspension procedure History of bronchoscopy x2-3 History of cholecystectomy open 04/2020 History of colon surgery d/t colon cancer History of colonoscopy with polypectomy History of esophagogastroduodenoscopy (EGD) History of lobectomy of lung right upper lobe removed 06/2008 @ [facility] d/t colon cancer metastasis to lung History of lung surgery wedge resection of left lung d/t cancer History of radioactive iodine thyroid ablation History of removal of cyst off finger History of tonsillectomy History of vascular access device x2--A port in place right side of chest History of ventral hernia repair History of wisdom tooth extraction Family History Mother , early 80s of thyroid cancer Thyroid cancer Heart disease Family history of reaction to anesthesia at age 80, took 2 days to wake after thyroidectomy Father , age 81 of gangrene complications No problems noted. Uncle Colorectal cancer Sister Family history of diabetes mellitus Sister Family history of diabetes mellitus Brother Myocardial infarction Other Family history non-contributory Denies family history of Ovarian cancer Prostate cancer Breast cancer Social History (Updated 09/23/22 @ 10:30 by Emely Carcamo RN) Smoking Status: Never smoker Second Hand Exposure: Yes (father smoked); Do You Dip or Chew Tobacco: No; Hx Alcohol Use: No Hx Substance Use: No Preferred Language: Citizen Of [place] Communication Ability: Effective Visual Impairment: No Limitations Hearing Ability: Normal Sugar Sampler Required: No Beliefs That Will Affect Care: None marital status: Current Living Situation: Spouse Current Living Situation Comment: Lives with and son current occupational status: retired 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 [employer] Other Information That Helps Us Care for You: No other: 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 [employer] Feels Safe at Home: Yes Safety Concerns: Feels Safe At This Time Childhood Exposure to Second-Hand Smoke: Yes caffeine: Yes (12 0z daily) during the past year weight has: remained stable Seatbelt Use: always Assistive Devices: Cane, CPAP, Glasses, Nebulizer, Oxygen - at Night and Walker Review of Systems Review of Systems: All systems reviewed & are unremarkable except as noted in HPI & below Physical Exam Physical Exam: Constitutional: No acute distress HEENT: EOMI, PERRLA Respiratory system: Decreased air entry on the right side, no wheeze, no rhonchi, mild crackles left lower lobe CVS: S1-S2 positive, no murmurs or gallops, right-sided Port-A-Cath Abdomen: Soft, nontender, nondistended, positive bowel sounds x4, obese Extremities: +2 pulses bilaterally radialis/ dorsalis pedis, no cyanosis, no edema, fingers are thin with tapering in the periphery (sclerodactyly-like features) Neuro: Awake alert oriented x3 Psych: Normal mood and affect G/U: No Banks Skin: no rashes, warm and dry Lymphatic: no cervical or axillary lymphadenopathy Results & Data Results & Data ([facility]) Vital Signs (Past 12 Hours) Vital Signs Temp Pulse Pulse Pulse Resp BP Pulse Ox 10/12/22 07:09 37.9 C H 106 H 20 124/77 92 10/12/22 03:37 37.9 C H 104 H 18 137/80 93 10/11/22 22:14 104 H 10/11/22 23:17 37.8 C H 104 H 22 126/78 97 10/11/22 20:30 10/11/22 19:37 37.7 C H 107 H 20 132/82 94 O2 Del Method 10/12/22 07:09 Room Air 10/12/22 03:37 Room Air 10/11/22 22:14 10/11/22 23:17 CPAP 10/11/22 20:30 CPAP 10/11/22 19:37 Room Air Laboratory Results 10/12/22 05:48 10/12/22 05:48 PG Care Time/CCT Total # of Minutes Spent Total Time Spent with Patient: Total time spent is greater than 50% in coordination of care (as documented) at patient's floor/unit and/or counseling patient: Coding Level of Care Code 78559 Initial Inpt Care Lvl [address] scan of lung R91.8 Atelectasis of right lung J98.11 Restrictive lung disease J98.4 Chronic respiratory failure with hypoxia J96.11 VU (obstructive sleep apnea) G47.33 Elevated diaphragm J98.6 Multiple pulmonary nodules R91.8
[2022-10-12] MEDS: AMIODARONE 200 MG TAB PO SCH (08:27)
[2022-10-12] MEDS: MAGNESIUM OXIDE 400 MG TAB PO SCH ×2 (08:27→20:03)
--- NOTE | 2022-10-12 08:37 | Electrocardiogram Report ---
Test Reason : Blood Pressure : / mmHG Vent. Rate : 106 BPM Atrial Rate : 106 BPM P-R Int : 166 ms QRS Dur : 086 ms QT Int : 332 ms P-R-T Axes : 023 056 043 degrees QTc Int : 441 ms Sinus tachycardia Otherwise normal ECG When compared with ECG of 07-SEP-2022 13:02, No significant change was found Confirmed by Darien Carr ([id number]) on 10/12/2022 8:23:37 AM Referred By: rBandy Olea Confirmed By:Darien Carr
[2022-10-12] MEDS: ACETAMINOPHEN 325 MG TAB PO PRN ×2 (08:46→20:02)
[2022-10-12] MEDS: ONDANSETRON INJ 2 MG/ML 2 ML VIAL IV PRN (08:46)
[2022-10-12] MEDS: HEPARIN 100 UNIT/ML 5ML FLUSH FLUSH PRN ×3 (08:51→20:06)
[2022-10-12 09:24] LABS: Reticulocyte % 1.5 % (0.5-2.0); Reticulocytes # 0.04 10^6/uL (0.02-0.10)
[2022-10-12 09:59] LABS: Iron < 10 mcg/dl (35-150); Unsaturated Iron Binding Cap 137 mcg/dl (155-355)
[2022-10-12 10:14] LABS: Vitamin B12 1090 pg/ml (180-914)
--- NOTE | 2022-10-12 13:25 | Hospitalist Progress Note ---
Date of Service October 12, 2022 Assessment & Plan (1) Fever and chills: Plan: ?due to metastatic disease No recent chemotherapy No infections on CT chest/abdo/pelvis Blood and urine cultures pending however negative to date and procalcitonin negative. Biofire stool and nasopharyngeal negative Her main concern is her nausea/vomiting with eating. (2) Vomiting: Plan: Unclear cause but suspect related to her metstatic disease given no acute pathology found Ondansetron PRN Pantoprazole 40mg IV daily Famotidine 20mg IV daily Consider palliative care consult if not improving (3) Colon cancer metastasized to lung: Plan: Mets Adenocarcinoma Tx/Hx Review Per ONC hnotes Diagnosed on colonoscopy 11/2007 Transbronchial biopsy of right upper lobe mass 12/2007 consistent with metastatic colonic adenocarcinoma, high-grade FOLFOX and cetuximab 12/2007distal transverse and proximal descending colectomy. pT3, pN1, pM1. FOLFOX/cetuximab resumed postop 09/2008: Staging PET/CT with improvement Completed FOLFOX/cetuximab 02/2009. 07/2011 PET/CT with left upper lobe new nodule suggestive of progressive metastasis 07/2011: VATS wedge excision of left upper lobe lesion, on pathology consistent with metastatic adenocarcinoma of the colon FOLFIRI/cetuximab initiated 07/2011. Additional course of salvage radiation therapy 11/2014: Enlarging right paramediastinal soft tissue mass 12/2014: Wedge resection right middle lobe with recurrent mass 3.7 x 3.5 x 2.9 cm 01/2016: PET/CT suggesting local versus regional recurrence just outside radiated pericardiac region anterior to right hilum. Not thought to be a candidate for further surgery. Did receive additional salvage radiation treatment to right hilar nodule 04/2016: Right hilar mass consistent with metastatic disease, received radiation therapy 09/2017: Enlarging FDG avid right hilar area, irinotecan plus cetuximab q. 14 days, subsequently on single agent cetuximab 04/2019 started Lonsurf but with progression. Switched to Stivarga but continued to have progression 09/2019: Rechallenge with FOLFOX therapy. Reacted to oxaliplatin, continued 5FEU and leukocoria in alone. Cholecystitis requiring cholecystectomy, Avastin added subsequently. 09/2020 AVMs requiring cauterization on Salter Path Resumed high-dose 5FEU, leuko-Corvin, the VAC is in [place] in October. Continue to have AVM bleeding Anticoagulated due to PE, Eliquis held for thrombocytopenia and subsequently resumed once improved Saw Dr. Marcus 01/2021 who recommended continuing glucocorticoid and, 5a few, +/- Avastin until definitive progression seen 04/2021: Right lung nodule biopsy with metastatic colorectal adenocarcinoma. No mutation in K-rosa maria, no BRAF mutation, HER2 negative by IHC Subsequent CTs 04/2021, 09/2021, 12/[address] scan 05/2022 with disease progression; switched to a irinotecan/panitumumab 08/2022: White out of right lung with complete collapse. Interval enlargement of mediastinal lymph nodes. Pulmonary was consulted, not a candidate for intervention with stenting at that time. Radiation oncology reviewed at tumor conference; guarded prognosis. To follow-up with [facility] for further S/p right upper lobectomy 2007, 2014 Mediastinal mass with partial compression of the esophagus with some dilation Pending follow-up to [facility] for stenting Pending second opinion at [facility]. Patient is following with Dr. Weaver, is pending follow-up with his office before making a decision CT 08/2022: Collapse of the right lung, 3.4 x 2.3 cm right hilar mass. Small right-sided pleural effusion, inferior lingular lobe 1.5 cm nodule, another 1.1 cm left upper lobe nodule, left lower lobe 1.1 cm pulmonary nodule. Elevated right hemidiaphragm. Minimal mediastinal lymphadenopathy With exertional shortness of breath at baseline, but no baseline oxygen requirement during the day and oxygen and CPAP at night (4) Chronic respiratory failure with hypoxia: (5) History of pulmonary embolism: Plan: Continue Eliquis (6) Hypercholesterolemia: Plan: Continue simvastatin 20 mg daily (7) Hypothyroidism: Plan: TSH 0.798 Continue levothyroxine 150 mcg PO daily (8) VU (obstructive sleep apnea): Plan: CPAP HS (9) Port-A-Cath in place: (10) Pulmonary mass: Plan: Appreciate pulmonology consult. No plans for intervention at this time. (11) Iron deficiency anemia: Plan: Held Eliquis dose this morning FOB negative, Start venofer 300mg IV x3 Plan VTE Prophylaxis - Eliquis Diet - advance to regular, easy to chew CODE STATUS: Conditional code Disposition: PCU Admission and Anticipated Discharge Date Admission Date: October 11, 2022 Subjective Patient reports no significant change from admission. However she is tolerating a clear liquid diet but is feeling full quickly. She denies having any ondansetron at home and reports this was useful this morning in helping her nausea. She reports the nausea and vomiting as new symptoms for the last 5 days with associated fever, chills. Possible concern about blood in her urine this morning in addition. She reports the fevers started on Tuesday with 101.6 degrees Fahrenheit. No recent change in nasal congestion, shortness of breath or back pain but this has been ongoing for months. Sinus pain under her eyes does appear to be worse than usual. She is taking tums for the nausea/vomiting but was not helping, mainly she just feels full quickly. No mouth sores, dysphagia or odynophagia. She reports her last chemotherapy on August 24. Review of Systems Review of Systems: All systems reviewed & are unremarkable except as noted in Subjective Physical Exam Constitutional: well developed; + not well nourished and no acute distress ENMT: Mouth: no oropharynx abnormality and no oral mucosal abnormality Respiratory: normal respiratory effort; no respiratory distress Auscultation: + diminished lung sounds (right sided) and + crackles (left lower lobe) Cardiovascular: RRR, no murmur, no edema Gastrointestinal (Abdomen): normal bowel sounds, soft, nontender, no hepatosplenomegaly Musculoskeletal: no cyanosis or clubbing, extremities motor strength 5/5 Skin: no rashes, warm and dry Neurologic: moves all extremities and awake; not confused Psychiatric: A+Ox3, euthymic affect Results & Data Results & Data ([facility]) Vital Signs (Past 12 Hours) Vital Signs Temp Pulse Pulse Resp BP Pulse Ox O2 Del Method 10/12/22 11:38 36.9 C 97 H 19 125/72 94 Room Air 10/12/22 11:30 Room Air, CPAP 10/12/22 11:29 100 H 10/12/22 07:09 37.9 C H 106 H 20 124/77 92 Room Air 10/12/22 03:37 37.9 C H 104 H 18 137/80 93 Room Air PG Care Time/CCT Total # of Minutes Spent Total Time Spent with Patient: Total time spent is greater than 50% in coordination of care (as documented) at patient's floor/unit and/or counseling patient: Coding Level of Care Code 09652 Subseq Hosp Care Lvl 3 Diagnoses Fever and chills R50.9 Vomiting R11.10 Colon cancer metastasized to lung C18.9; C78.00 Chronic respiratory failure with hypoxia J96.11 History of pulmonary embolism Z86.711 Hypercholesterolemia E78.00 Hypothyroidism E03.9 VU (obstructive sleep apnea) G47.33 Port-A-Cath in place Z95.828 Pulmonary mass R91.8 Iron deficiency anemia D50.9
[2022-10-12] MEDS ORDERED: PANTOprazole 40 MG TAB PO SCH (13:30)
[2022-10-12 14:38] LABS: Basophils # (auto) 0.03 K/uL (0-0.2); Basophils % (auto) 0.2 %; Eosinophils # (auto) 0.13 K/uL (0-0.50); Eosinophils % (auto) 0.9 %; Hematocrit (blood only) 29.1 % (34.1-44.9); Hemoglobin 9.3 g/dl (12.0-16.0); Immature Granulocytes # (auto) 0.08 K/uL (0.00-0.02); Immature Granulocytes % (auto) 0.6 %; Lymphocytes # (auto) 0.93 K/uL (1.2-3.4); Lymphocytes % (auto) 6.6 %; Mean Corpuscular Hemoglobin 32.6 pg (25.0-34.0); Mean Corpuscular Volume 102.1 fL (80.0-100.0); Mean Platelet Volume 10.6 fL (9.4-12.3); Monocytes # (auto) 1.89 K/uL (0.24-0.82); Monocytes % (auto) 13.5 %; Neutrophils # (auto) 10.98 K/uL (1.4-6.5); Neutrophils % (auto) 78.2 %; Platelet Count 152 K/uL (130-400); RDW Coefficient of Variation 14.4 % (11.5-14.5); RDW Standard Deviation 54.4 fL (36.4-46.3); Red Blood Count 2.85 M/uL (3.93-5.22); White Blood Count 14.04 K/ul (4.8-10.8)
[2022-10-12] MEDS: prednisoLONE acetate 1% OP SUSP 5 ML BTL OPL SCH (15:41)
[2022-10-12] MEDS: FAMOTIDINE 20 MG in SYRINGE 3 ML IV SCH (15:42)
[2022-10-12] MEDS: PANTOprazole 40 MG in SYRINGE 0 ML IV SCH (15:42)
[2022-10-12] MEDS: IRON SUCROSE 300 MG in SODIUM CHLORIDE 0.9% 250 ML IV SCH (18:21)
[2022-10-12] MEDS: SERTRALINE HCL 50 MG TABLET PO SCH (20:04)
[2022-10-12] MEDS: SIMVASTATIN 20 MG TAB PO SCH (20:04)
[2022-10-12] MEDS ORDERED: APIXABAN 5 MG TABLET PO ONE (21:33)
[2022-10-13] MEDS: LEVOTHYROXINE SODIUM 150 MCG TABLET PO SCH (06:05)
--- NOTE | 2022-10-13 06:17 | Consultation ---
Date of Consultation October 12, 2022 Assessment & Plan (1) Colon cancer metastasized to lung: Multiply recurrent colon cancer particularly affecting the right lung which is proving refractory to our standard agents (5-fluorouracil, oxaliplatin, irinotecan, cetuximab, panitumumab, bevacizumab). We had hoped to identify possible novel therapy such as ICI treatment and await the Caris testing on her lung biopsy to guide us as to whether that might be useful. There are some additional "standard" options such as Lonsurf and regorafenib as well as possible ramucirumab/irinotecan combination or revisiting fluoropyrimidines as capecitabine with or without bevacizumab. It is not likely that any of these o ptions, however, would offer her a dramatic and durable benefit and would certainly be concerning for exacerbated toxicity in face of her poor performance status. Radiation oncology had deferred to the [facility] review but certainly could also be reexplored, again having had previous radiation the degree and durability of the response is uncertain Patient is firmly committed to additional treatment options and although a pure palliative care approach should certainly be part of the offerings, I do not believe that she is going to be prepared at this time to forego any additional attempts at cytoreduction. Immediate priority will be to optimize any short-term exacerbations of her illness particularly with regards to any infectious process and her anemia (see below). I will see if we can expedite results from the Caris testing and she is scheduled on October 27 to see the [facility] team Present on Admission?: Yes (2) Anemia: Multifactorial. The macrocytic anemia may largely represent historic chemotherapy toxicity in the absence of any B12, folic acid, or thyroid deficiency. I have requested a reticulocyte count to rule out any element of hemolysis that could be artifactually elevating her MCV. Iron studies clearly suggest a significant iron deficiency, have asked for ferritin so that we can quantitate her iron deficit but she would likely benefit from some intravenous iron. Increasing her oxygen carrying capacity in the face of compromised pulmonary function may help to improve her performance status. Present on Admission?: Yes Plan Immediate issues are to identify and optimize any infectious issues and also to initiate intravenous iron and try to improve her oxygen carrying capacity. Pending ferritin will help us to quantify the recommended dose for the iron. I will seek confirmation of Caris studies and we are pointing towards a visit with the [place] team on October 27 that we may have to make some intervention decisions prior to that given the worsening pattern of metastases. Would specifically revisit with radiation oncology given that progression whether they think some short-term radiation would be a stopgap to identification of the longer-term systemic treatment plan History of Present Illness Reason for Consultation: Patient with metastatic colon cancer particularly affecting the right lung admitted with respiratory and general deterioration Attending Physician: Anurag Rodriguez MD History of Present Illness Please see my 09/21/2022 more comprehensive office note. This is scanned into Splice under provider notes labeled as an 09/28/2022 radiation oncology note. Briefly, patient was originally diagnosed in 2007 with a circumferential tumor of the colon distal to the splenic flexure and concomitant right hilar mass both of which were biopsy positive for metastatic colon cancer. There was additional metastatic hilar adenopathy at the time of presentation. She has sequentially been through treatments with FOLFOX and cetuximab, radiation, irinotecan and cetuximab, rechallenge with FOLFOX, 5- FU/leucovorin/bevacizumab, and then most recently irinotecan and panitumumab. Despite this she has unfortunately had disease progression to the point of near complete obstruction of the right lung bronchial structure and a previous admission for white out of the right lung. She has stabilized somewhat and we have been recently seeking alternative options with pending Caris testing for any noncytotoxic options to further explore, anticipation of a visit with [facility] for possible investigational choices, and a radiation oncology visit as an outpatient which did identify the potential for some additional radiation to the lung though in an already irradiated field the ability to significantly impact upon respiratory status was uncertain. Pulmonary medicine has evaluated her both during her last admission and then again with this admission and do not feel that the stent would be practically useful She is admitted now with dysuria/hematuria, some mild chills, and respiratory decompensation Allergies Allergy/AdvReac Type Severity Reaction Status Date / Time diphtheria,pertussis Allergy Severe "Arm Verified 09/07/22 16:12 (acellular),te swelled [From Adacel(Tdap up," fever Adolesn/Adult)(PF)] irinotecan Allergy Severe perforations Verified 09/07/22 16:12 in bowel oxaliplatin Allergy Severe Anaphylaxis Verified 09/07/22 16:12 thiopental Allergy Intermediate INCREASED Verified 09/07/22 16:12 BLEEDING WITH WISDOM TEETH SURG anastrozole [From Arimidex] AdvReac Severe CAUSED Verified 09/07/22 16:12 INTERNAL BLEEDING meperidine AdvReac Mild N/V Verified 09/07/22 16:12 morphine AdvReac Mild N/V Verified 09/07/22 16:12 Home Medications Medication Instructions Recorded Confirmed Type albuterol sulfate 90 mcg/actuation 2 puff inhalation Q6 PRN Shortness 08/07/18 09/23/22 History aerosol inhaler Of Breath Or Wheezing multivitamin 1 tab PO QAM 08/07/18 09/23/22 History ascorbic acid (vitamin C) 500 mg 500 mg PO BIDM 11/02/19 09/23/22 History tablet (Vitamin C) pyridoxine (vitamin B6) 100 mg 100 mg PO QDL 10/12/20 09/23/22 History tablet (Vitamin B-6) cyanocobalamin (vitamin B-12) 1,000 mcg PO DAILY 01/07/21 09/23/22 History 1,000 mcg tablet (Vitamin B-12) ferrous sulfate 325 mg (65 mg 325 mg PO DAILY #60 tabs 01/04/22 09/23/22 Rx iron) tablet simvastatin 20 mg tablet 20 mg PO QPM #90 tabs 01/26/22 09/23/22 Rx colestipol 1 gram tablet (Colestid) 1 g PO DAILY #90 tabs 05/06/22 09/23/22 Rx amiodarone 200 mg tablet 200 mg PO DAILY #90 tabs 06/28/22 09/23/22 Rx sertraline 50 mg tablet 50 mg PO HS #90 tabs 07/02/22 09/23/22 Rx apixaban 5 mg tablet (Eliquis) 5 mg PO BID #180 tabs 07/08/22 09/23/22 Rx ipratropium 0.5 mg-albuterol 3 mg 3 ml inhalation Q4H PRN Shortness 08/05/22 09/07/22 Rx (2.5 mg base)/3 mL nebulization Of Breath Or Wheezing #540 mL soln prednisone 20 mg tablet 20 mg PO DIRECTED #12 tabs 08/28/22 09/23/22 Rx vitamin E (dl, acetate) 180 mg 180 mg PO DAILY 08/28/22 09/23/22 History (400 unit) capsule omeprazole 40 mg capsule,delayed 40 mg PO QAM #90 caps 08/31/22 09/23/22 Rx release ondansetron 8 mg disintegrating 8 mg translingual Q8 PRN Nausea 09/07/22 09/23/22 History tablet Magic Mouthwash 300 mL mouthwash 10 ml mucous membrane .Q3-4 hr PRN 09/23/22 09/23/22 History #300 mL cholecalciferol (vitamin D3) 25 25 mcg PO DAILY 09/23/22 09/23/22 History mcg (1,000 unit) capsule diphenoxylate-atropine 2.5 2 tab PO .Q6-8 hr PRN Diarrhea 09/23/22 09/23/22 History mg-0.025 mg tablet (Lomotil) liccvoiatsi-tenfugglk-sja C-Mn 500 1 cap PO BID 09/23/22 09/23/22 History mg-400 mg capsule (Glucosamine Chondroitin Maximum Strength) levothyroxine 150 mcg capsule 150 mcg PO DAILY 09/23/22 09/23/22 History magnesium oxide 400 mg PO BID 09/23/22 09/23/22 History potassium chloride 20 mEq 20 meq PO BID 09/23/22 09/23/22 History tablet,extended release prednisolone acetate 1 % eye 1 drp ophthalmic (eye) DAILY 09/23/22 09/23/22 History drops,suspension prochlorperazine maleate 10 mg 10 mg PO Q6H PRN 09/23/22 09/23/22 History tablet (Compazine) valacyclovir 1 gram tablet 1,000 mg PO DAILY PRN 09/23/22 09/23/22 History Patient History Medical History (Updated 10/12/22 @ 21:17 by Antonio Roberto MD) Acute GI bleeding Asthma Bacteremia Bilateral pulmonary embolism hx of 2012--reason for eliquis daily (had pneumonia right before and pt states she was not moving much) Candidiasis of intestine Chemotherapy adverse reaction Chronic diastolic congestive heart failure Colon cancer metastasized to lung (09/18/08) Depression Diverticulosis of colon DVT, lower extremity left leg, same time as PE Elevated lactic acid level Essential hypertension GERD (gastroesophageal reflux disease) GI bleed History of anesthesia reaction difficulty waking at times as well as hx of waking up during sx (woke up during port placement) History of chemotherapy History of gastric ulcer History of immunocompromised state History of pulmonary embolus (PE) History of radiation therapy Hyperlipidemia Hypertension Hypothyroidism Hypoxia Infection due to Port-A-Cath Morbid obesity with BMI of 40.0-44.9, adult Neutropenia On anticoagulant therapy eliquis daily On home oxygen therapy 2L N/C at hs Osteoarthritis Radiation pneumonitis Seizures due to metabolic disorder x2-- one d/t medication anaphylaxis, and pt states second d/t low magnesium in 09/2019 Septicemia due to coagulase-negative staphylococcal infection Tachycardia Weakness Surgical History H/O: hysterectomy History of bilateral tubal ligation History of bladder suspension procedure History of bronchoscopy x2-3 History of cholecystectomy open 04/2020 History of colon surgery d/t colon cancer History of colonoscopy with polypectomy History of esophagogastroduodenoscopy (EGD) History of lobectomy of lung right upper lobe removed 06/2008 @ [facility] d/t colon cancer metastasis to lung History of lung surgery wedge resection of left lung d/t cancer History of radioactive iodine thyroid ablation History of removal of cyst off finger History of tonsillectomy History of vascular access device x2--A port in place right side of chest History of ventral hernia repair History of wisdom tooth extraction Family History Mother , early 80s of thyroid cancer Thyroid cancer Heart disease Family history of reaction to anesthesia at age 80, took 2 days to wake after thyroidectomy Father , age 81 of gangrene complications No problems noted. Uncle Colorectal cancer Sister Family history of diabetes mellitus Sister Family history of diabetes mellitus Brother Myocardial infarction Other Family history non-contributory Denies family history of Ovarian cancer Prostate cancer Breast cancer Social History (Updated 09/23/22 @ 10:30 by Emely Carcamo RN) Smoking Status: Never smoker Second Hand Exposure: Yes (father smoked); Do You Dip or Chew Tobacco: No; Hx Alcohol Use: No Hx Substance Use: No Preferred Language: Turkmen Communication Ability: Effective Visual Impairment: No Limitations Hearing Ability: Normal [place] Converter Operator Required: No Beliefs That Will Affect Care: None marital status: Current Living Situation: Spouse Current Living Situation Comment: Lives with and son current occupational status: retired 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 [employer] Other Information That Helps Us Care for You: No other: 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 Physical Exam Physical Exam: She is afebrile with stable vital signs. She is ill-appearing but not frankly toxic and is appropriate and alert with completely intact medical decision making Markedly decreased breath sounds in the right lung but at rest she is neither tachypneic nor using significant accessory muscles of respiration Heart rhythm is regular without pathological murmurs, abdomen currently seems soft nontender Neurologic exam is nonfocal Results & Data ([facility]) Vital Signs (Past 12 Hours) Vital Signs Temp Pulse Pulse Resp BP Pulse Ox O2 Del Method 10/13/22 03:36 36.9 C 65 20 116/69 93 CPAP 10/12/22 23:15 36.6 C 73 20 155/80 H 98 Room Air 10/12/22 23:08 99 H 10/12/22 20:15 CPAP 10/12/22 19:37 37.8 C H 107 H 18 137/66 93 Room Air Laboratory Results Abnormal lab results 10/12/22 10/12/22 10/12/22 Range/Units 05:48 05:48 09:07 WBC (4.8-10.8) K/ul RBC (3.93-5.22) M/uL Hgb (12.0-16.0) g/dl Hct (34.1-44.9) % MCV (80.0-100.0) fL RDW Std Deviation (36.4-46.3) fL Neut # (Auto) (1.4-6.5) K/uL Lymph # (Auto) (1.2-3.4) K/uL [place] # (Auto) (0.24-0.82) K/uL Immature Gran # (Auto) (0.00-0.02) K/uL Calcium 8.3 L (8.5-10.1) mg/dl Iron < 10 L (35-150) mcg/dl Unsaturated IBC 137 L (155-355) mcg/dl Total Protein 5.8 L (6.0-8.3) gm/dl Albumin 2.8 L (3.4-5.0) gm/dl Vitamin B12 1090 H (180-914) pg/ml 10/12/22 Range/Units 14:08 WBC 14.04 H (4.8-10.8) K/ul RBC 2.85 L (3.93-5.22) M/uL Hgb 9.3 L (12.0-16.0) g/dl Hct 29.1 L (34.1-44.9) % MCV 102.1 H (80.0-100.0) fL RDW Std Deviation 54.4 H (36.4-46.3) fL Neut # (Auto) 10.98 H (1.4-6.5) K/uL Lymph # (Auto) 0.93 L (1.2-3.4) K/uL [place] # (Auto) 1.89 H (0.24-0.82) K/uL Immature Gran # (Auto) 0.08 H (0.00-0.02) K/uL Calcium (8.5-10.1) mg/dl Iron (35-150) mcg/dl Unsaturated IBC (155-355) mcg/dl Total Protein (6.0-8.3) gm/dl Albumin (3.4-5.0) gm/dl Vitamin B12 (180-914) pg/ml Diagnostic Findings Abdomen/Pelvis CT 10/11/22 12:56 CT OF THE ABDOMEN AND PELVIS WITH CONTRAST CLINICAL HISTORY: Metastatic adenocarcinoma, fever/nausea/vomiting COMPARISON STUDY: CT of the abdomen and pelvis August 14, 2022. TECHNIQUE: Following IV administration of 82 mL of Optiray, axial images of the abdomen and pelvis were obtained from the lung bases to the proximal femurs. Images were reviewed in the axial, sagittal, and coronal planes. IV contrast was administered without complication. Automated exposure control was utilized for the study. A dose lowering technique was utilized adhering to the principles of ALARA. FINDINGS: Please note that the chest CT will be reported separately. Right lung collapse is better depicted on that exam. Multiple pulmonary metastases have increased in size since prior CT of August 14, 2022. Hilar and mediastinal adenopathy has progressed. No pneumatosis, free air or portal venous gas is present. The gallbladder surgically absent. A 3.2 cm segment 6 hepatic metastasis has increased in size since prior CT when measured 2.1 cm. There are no additional hepatic lesions. The adrenal glands, spleen and pancreas are unremarkable. 3 mm calculus within the upper pole of the right kidney is noted. There are no ureteral calculi. There is no hydronephrosis. There are bilateral parapelvic cysts. Mild bilateral symmetric perinephric straining is noted. Colon is mildly distended and gas-filled. The distal sigmoid colon and rectum are decompressed. There is no convincing evidence for a volvulus. No suspicious lesions within the visualized skeletal structures are present. IMPRESSION: 1. Progression of hepatic, pulmonary and juan metastases since CT of August 14, 2022, as described above. 2. Mild gaseous distention of the colon with decompressed distal sigmoid colon and rectum. This may reflect a colonic ileus. A colonic obstruction is considered less likely however radiographic follow-up is recommended. 3. Mild bilateral perinephric stranding which is of doubtful significance although could be correlated with urinalysis. ACT 112: Negative or not required by law. Electronically signed by: Darron Price M.D. 10/11/2022 6:[address] 10/11/22 12:56 CT OF THE CHEST WITH IV CONTRAST CLINICAL HISTORY: Metastatic adenocarcinoma, shortness of breath/fever, hx right lung collapse COMPARISON STUDY: Chest CT September 07, 2022. TECHNIQUE: Following IV administration of 82 mL of Optiray, helical axial images of the chest were obtained. Sagittal and coronal reconstructions were viewed as well as maximal intensity projections on an independent 3-D workstation. Automated exposure control was utilized for the study. A dose lowering technique was utilized adhering to the principles of ALARA. CT DOSE: 2372.78 mGy.cm FINDINGS: Postoperative findings consistent with right upper lobectomy are noted. There is persistent right lung collapse, as shown on CT of September 07, 2022. Occlusion of the bronchus intermedius is again noted. Multiple masses within the right lung are obscured by adjacent collapsed lung. There is a small right pleural effusion. No pneumothorax is present. Pathologic mediastinal and bilateral hilar lymphadenopathy has progressed since CT of September 07, 2022. Index subcarinal lymph node measures 3.3 x 2.7 cm. It previously measured 3.4 x 2.3 cm. Index vascular node measures 2.2 x 1.8 cm. A previous measured 1.6 x 1.4 cm. Several lung metastases have increased in size. Index lingular lesion measures 1.6 cm. It previously measured 1.5 cm. There is a trace left pleural effusion. No suspicious lesions within the bony thorax are noted. No central pulmonary emboli are identified. The remainder of the pulmonary arteries are suboptimally assessed due to respiratory motion. CT of the abdomen and pelvis will be reported separately. IMPRESSION: 1. Progression of metastatic disease since CT of September 07, 2022, as described above. Increase in mediastinal and bilateral hilar lymphadenopathy and several lung metastases. 2. Redemonstration of right lung collapse. Occlusion of the bronchus intermedius due to tumor. Small right and trace left pleural effusions. ACT 112: Negative or not required by law. Electronically signed by: Darron Price M.D. 10/11/2022 5:54 PM PG Care Time/CCT Total # of Minutes Spent Total Time Spent with Patient: Total time spent is greater than 50% in coordination of care (as documented) at patient's floor/unit and/or counseling patient: [place] [address] Inpt Consult Level 4 Patient Type New History Expanded Problem Focused Exam Expanded Problem Focused Medical Decision Making High Complexity Diagnoses Colon cancer metastasized to lung C18.9; C78.00 Anemia D64.9 Anemia type: unspecified type (1) Anemia Anemia type: unspecified type Qualified Code(s): D64.9 - Anemia, unspecified
[2022-10-13 07:24] LABS: Reticulocyte % 1.2 % (0.5-2.0); Reticulocytes # 0.03 10^6/uL (0.02-0.10)
--- NOTE | 2022-10-13 07:51 | Pulmonology Progress Note ---
Date of Service October 13, 2022 Assessment & Plan (1) Abnormal CT scan of lung: (2) Atelectasis of right lung: (3) Restrictive lung disease: (4) Chronic respiratory failure with hypoxia: (5) VU (obstructive sleep apnea): (6) Elevated diaphragm: (7) Multiple pulmonary nodules: Plan CT chest 10/11/2022 personally reviewed: Collapse of the right lung, there is mediastinal lymphadenopathy/mass 3.3*2.7cm which seems to be pushing on the RBI Pulmonary nodules appreciated on the left side, small right-sided pleural effusion Elevated the right hemidiaphragm Medius and lymphadenopathy seems to be getting worse compared to last CAT scan which was done in August --Pulmonary mass with collapse of the right lung, multiple pulmonary nodules Following up with cancer care currently on treatment for metastatic colon cancer Patient supposed to follow-up with [facility] on 10/27/2022 Overall prognosis unfortunately guarded although patient has good functional status --Exertional shortness of breath Multifactorial Two thirds of the right lung of the patient has been removed, she also got radiation to the right lower lobe-- > collapse of the right lower lobe on the latest CAT scan 08/202222 Grade 1 diastolic dysfunction might also be playing a role BMI of 39 also playing its part 6MWT 09/24/22:Patient walked 700 feet, she was able to maintain her saturation 90% on room air 2D echo 01/06/2022: EF 70%, grade 1 diastolic dysfunction, right ventricle is not well visualized --VU Patient has been using CPAP since 2006 Continue with CPAP --Elevated right hemidiaphragm Likely from right upper and right middle lobectomy done in the past Incentive spirometry will be beneficial -- Nocturnal hypoxia Uses oxygen bled into the CPAP -- Metastatic adenocarcinoma of the colon with mets to the lung S/p right upper lobectomy [place] 2007 Dr. Zimmerman, right middle lobectomy was [place] [address] Torres Patient follows up with cancer care Plan: Patient was saturating 90% on room air at the time of examination Incentive spirometry will beneficial Treatment of diarrhea as per primary care No further recommendation from pulmonary perspective. Will sign off, please call directly with any questions Please note the above document was generated using voice recognition software. It may contain grammatical, syntax or spelling errors.Any formal questions or concerns about the content, text or information contained within the body of this dictation should be directly addressed to the provider for clarification. Admission and Anticipated Discharge Date Admission Date: October 11, 2022 Subjective Patient seen and examined at bedside. No acute distress, no delusions overnight She still complaining of diarrhea. Had 3 bouts of more stools since last night. Denies any significant change when it comes to her breathing. Nausea has significantly improved She was having her breakfast at time of examination No hemoptysis No headache, no blurry vision Review of Systems Review of Systems: All systems reviewed & are unremarkable except as noted in Subjective Physical Exam Physical Exam: Constitutional: No acute distress HEENT: EOMI, PERRLA Respiratory system: Decreased air entry on the right side, no wheeze, no rhonchi, mild crackles left lower lobe CVS: S1-S2 positive, no murmurs or gallops, right-sided Port-A-Cath Abdomen: Soft, nontender, nondistended, positive bowel sounds x4, obese Extremities: +2 pulses bilaterally radialis/ dorsalis pedis, no cyanosis, no edema, fingers are thin with tapering in the periphery (sclerodactyly-like features) Neuro: Awake alert oriented x3 Psych: Normal mood and affect G/U: No Banks Skin: no rashes, warm and dry Lymphatic: no cervical or axillary lymphadenopathy Results & Data Results & Data ([facility]) Vital Signs (Past 12 Hours) Vital Signs Temp Pulse Pulse Resp BP Pulse Ox O2 Del Method 10/13/22 07:36 37.6 C H 104 H 19 141/78 H 92 Room Air 10/13/22 03:36 36.9 C 65 20 116/69 93 CPAP 10/12/22 23:15 36.6 C 73 20 155/80 H 98 Room Air 10/12/22 23:08 99 H 10/12/22 20:15 CPAP Laboratory Results 10/12/22 14:08 10/12/22 05:48 PG Care Time/CCT Total # of Minutes Spent Total Time Spent with Patient: Total time spent is greater than 50% in coordination of care (as documented) at patient's floor/unit and/or counseling patient: Coding Level of Care Code 42604 Subseq Hosp Care Lvl [address] scan of lung R91.8 Atelectasis of right lung J98.11 Restrictive lung disease J98.4 Chronic respiratory failure with hypoxia J96.11 VU (obstructive sleep apnea) G47.33 Elevated diaphragm J98.6 Multiple pulmonary nodules R91.8
[2022-10-13] MEDS: APIXABAN 5 MG TABLET PO SCH ×2 (08:11→20:15)
[2022-10-13] MEDS: MAGNESIUM OXIDE 400 MG TAB PO SCH ×2 (08:11→20:15)
[2022-10-13] MEDS: prednisoLONE acetate 1% OP SUSP 5 ML BTL OPL SCH (08:12)
[2022-10-13] MEDS: AMIODARONE 200 MG TAB PO SCH (08:12)
[2022-10-13] MEDS: IRON SUCROSE 300 MG in SODIUM CHLORIDE 0.9% 250 ML IV SCH (08:19)
[2022-10-13] MEDS: PANTOprazole 40 MG in SYRINGE 0 ML IV SCH (10:23)
--- NOTE | 2022-10-13 14:03 | Hospitalist Progress Note ---
Date of Service October 13, 2022 Assessment & Plan (1) Fever and chills: Plan: Blood and urine cultures remain negative. I suspect this is due to underlying malignancy and metastatic disease. No recent chemotherapy. No infections on CT chest/abdo/pelvis. Procalcitonin negative. Biofire stool and nasopharyngeal testing negative (2) Vomiting: Plan: Unclear cause but suspect related to her metstatic disease given no acute pathology found. This has improved. She has previously had cholecystectomy which removes the gallbladder as a consideration. (3) Colon cancer metastasized to lung: Plan: Mets Adenocarcinoma Tx/Hx Review Per ONC hnotes Diagnosed on colonoscopy 11/2007 Transbronchial biopsy of right upper lobe mass 12/2007 consistent with metastatic colonic adenocarcinoma, high-grade FOLFOX and cetuximab 12/2007distal transverse and proximal descending colectomy. pT3, pN1, pM1. FOLFOX/cetuximab resumed postop 09/2008: Staging PET/CT with improvement Completed FOLFOX/cetuximab 02/2009. 07/2011 PET/CT with left upper lobe new nodule suggestive of progressive metastasis 07/2011: VATS wedge excision of left upper lobe lesion, on pathology consistent with metastatic adenocarcinoma of the colon FOLFIRI/cetuximab initiated 07/2011. Additional course of salvage radiation therapy 11/2014: Enlarging right paramediastinal soft tissue mass 12/2014: Wedge resection right middle lobe with recurrent mass 3.7 x 3.5 x 2.9 cm 01/2016: PET/CT suggesting local versus regional recurrence just outside radiated pericardiac region anterior to right hilum. Not thought to be a candidate for further surgery. Did receive additional salvage radiation treatment to right hilar nodule 04/2016: Right hilar mass consistent with metastatic disease, received radiation therapy 09/2017: Enlarging FDG avid right hilar area, irinotecan plus cetuximab q. 14 days, subsequently on single agent cetuximab 04/2019 started Lonsurf but with progression. Switched to Stivarga but continued to have progression 09/2019: Rechallenge with FOLFOX therapy. Reacted to oxaliplatin, continued 5FEU and leukocoria in alone. Cholecystitis requiring cholecystectomy, Avastin added subsequently. 09/2020 AVMs requiring cauterization on [place] Resumed high-dose 5FEU, leuko-[place], the VAC is in [place] in October. Continue to have AVM bleeding Anticoagulated due to PE, Eliquis held for thrombocytopenia and subsequently resumed once improved Saw Dr. Marcus 01/2021 who recommended continuing glucocorticoid and, 5a few, +/- Avastin until definitive progression seen 04/2021: Right lung nodule biopsy with metastatic colorectal adenocarcinoma. No mutation in [place] maria, no BRAF mutation, HER2 negative by IHC Subsequent CTs 04/2021, 09/2021, 12/[address] scan 05/2022 with disease progression; switched to a irinotecan/panitumumab 08/2022: White out of right lung with complete collapse. Interval enlargement of mediastinal lymph nodes. Pulmonary was consulted, not a candidate for intervention with stenting at that time. Radiation oncology reviewed at tumor conference; guarded prognosis. [place] [facility] [place] S/p right upper lobectomy 2014 Mediastinal mass with partial compression of the esophagus with some dilation Pending follow-up to [facility] [place]ing Pending second opinion at [facility]. Patient is following with Dr. Weaver, is pending follow-up with his office before making a decision CT 08/2022: Collapse of the right lung, 3.4 x 2.3 cm right hilar mass. Small right-sided pleural effusion, inferior lingular lobe 1.5 cm nodule, another 1.1 cm left upper lobe nodule, left lower lobe 1.1 cm pulmonary nodule. Elevated right hemidiaphragm. Minimal mediastinal lymphadenopathy With exertional shortness of breath at baseline, but no baseline oxygen requirement during the day and oxygen and CPAP at night (4) Chronic respiratory failure with hypoxia: Plan: Supplemental oxygen per nasal cannula to maintain saturation greater than 90% (5) History of pulmonary embolism: Plan: Continue Eliquis (6) Hypercholesterolemia: Plan: Continue simvastatin 20 mg daily (7) Hypothyroidism: Plan: TSH 0.798 Continue levothyroxine 150 mcg PO daily (8) VU (obstructive sleep apnea): Plan: CPAP HS (9) Port-A-Cath in place: Plan: Aware. Local care (10) Pulmonary mass: Plan: Appreciate pulmonology consult. No plans for intervention at this time. (11) Iron deficiency anemia: Plan: FOB negative. Parenteral iron replacement while hospitalized Plan VTE Prophylaxis - Eliquis Disposition: To be determined Admission and Anticipated Discharge Date Admission Date: October 11, 2022 Subjective Alert and oriented. No distress. She states she is having gross hematuria. Urology consultation requested. Hemoglobin stable at 9.3. She continues to have intermittent fever but cultures are negative. This could be due to her underlying malignancy. Fecal occult blood is negative. Review of Systems Review of Systems: Constitutional-no fever or chills ENT-no blurred vision, no double vision, no epistaxis, no sore throat Respiratory-no cough, no wheezing, no shortness of breath Cardiac-no palpitations, no chest pain, no syncope GI-no nausea, vomiting, diarrhea, melena, hematochezia -no urinary retention, no urinary incontinence, no dysuria, no hematuria Musculoskeletal-no joint pain, no muscle tenderness. Generalized weakness Skin-no bruising, no rashes, no pruritus Neuro-no isolated weakness, no paresthesia, no weakness Psych-no depression, no anxiety Physical Exam Physical Exam: General-alert and oriented x3, no fevers, no chills HEENT-head atraumatic and normocephalic, pupils equal and reactive to light, extraocular muscles intact Neck-no lymphadenopathy or thyromegaly, trachea midline Chest-bilateral inspiratory rhonchi. No wheezing. No dullness Cardiac-regular rate and rhythm, normal S1 and S2, no murmurs Abdomen-normal bowel sounds, nontender, no hepatosplenomegaly Extremities-no cyanosis, clubbing, or edema Neuro-cranial nerves II through XII intact, motor and sensory function within normal limits, strength symmetrical , no focal deficits Psych-normal affect, normal mood Results & Data Results & Data ([facility]) Vital Signs (Past 12 Hours) Vital Signs Temp Pulse Pulse Resp BP Pulse Ox O2 Del Method 10/13/22 11:42 37.1 C 104 H 20 167/94 H 91 Room Air 10/13/22 08:57 Room Air 10/13/22 08:53 113 H 10/13/22 07:36 37.6 C H 104 H 19 141/78 H 92 Room Air 10/13/22 03:36 36.9 C 65 20 116/69 93 CPAP Laboratory Results 10/12/22 14:08 10/12/22 05:48 PG Care Time/CCT Total # of Minutes Spent Total Time Spent with Patient: Total time spent is greater than 50% in coordination of care (as documented) at patient's floor/unit and/or counseling patient: Coding Level of Care Code 90628 Subseq Hosp Care Lvl 3 Diagnoses Fever and chills R50.9 Vomiting R11.10 Colon cancer metastasized to lung C18.9; C78.00 Chronic respiratory failure with hypoxia J96.11 History of pulmonary embolism Z86.711 Hypercholesterolemia E78.00 Hypothyroidism E03.9 VU (obstructive sleep apnea) G47.33 Port-A-Cath in place Z95.828 Pulmonary mass R91.8 Iron deficiency anemia D50.9
--- NOTE | 2022-10-13 14:40 | Urology Consultation ---
Date of Consultation October 13, 2022 Assessment & Plan (1) Gross hematuria: Plan 72yo F with multiple comorbidities admitted with fever and nausea/vomiting suspected to be due to underlying malignancy and metastatic disease. Urology consulted for evaluation of hematuria. Patient with microscopic hematuria and recent report of gross hematuria. Afebrile, labs from 10/12 reviewed - creatinine 0.79, hemoglobin 9.3. Urinalysis noted 2+blood, 5-10RBC, Urine culture final with lactobacillus, blood cultures NGTD. We discussed hematuria, including potential etiologies and work-up with CT imaging, urine cytology, urine culture, and cystoscopy. CT imaging reviewed - noted mild bilateral perinephric stranding, no ureteral stones, no hydronephrosis. We discussed cystoscopy to complete hematuria work-up, pt would like to proceed. This can be done as an outpatient. She is voiding spontaneously. Continue to monitor. Bladder scan prn. We will arrange outpatient follow-up with our service. will sign-off. Please contact us with any further questions, concerns, or changes in patient's status. Case discussed with Dr. Garcia, urologist contract post office clerk. History of Present Illness Reason for Consultation: Hematuria Attending Physician: Anurag Rodriguez MD History of Present Illness 72yo female with multiple comorbidities including metastatic adenocarcinoma of the colon with mets to lungs admitted with fever and nausea/vomiting felt to be due to underlying malignancy and metastatic disease. She developed gross hematuria yesterday 10/12. Urology consulted for hematuria. Patient examined at bedside this afternoon. Awake, resting in bed on arrival. No acute distress. Denies abdominal, flank, or suprapubic pain. States she developed gross hematuria yesterday. No clots. Denies dysuria. Feels she is emptying her bladder well. Does note some urinary urgency with occasional incontinence. Having intermittent fevers. No nausea/vomiting at present. Reports a history of nephrolithiasis with spontaneous passage. Does not follow with a urologist. Denies additional pertinent history. Denies pertinent family history. CT abdomen pelvis - 1. Progression of hepatic, pulmonary and juan metastases since CT of August 14, 2022, as described above. 2. Mild gaseous distention of the colon with decompressed distal sigmoid colon and rectum. This may reflect a colonic ileus. A colonic obstruction is considered less likely however radiographic follow-up is recommended. 3. Mild bilateral perinephric stranding which is of doubtful significance although could be correlated with urinalysis. Allergies Allergy/AdvReac Type Severity Reaction Status Date / Time diphtheria,pertussis Allergy Severe "Arm Verified 09/07/22 16:12 (acellular),te swelled [From Adacel(Tdap up," fever Adolesn/Adult)(PF)] irinotecan Allergy Severe perforations Verified 09/07/22 16:12 in bowel oxaliplatin Allergy Severe Anaphylaxis Verified 09/07/22 16:12 thiopental Allergy Intermediate INCREASED Verified 09/07/22 16:12 BLEEDING WITH WISDOM TEETH SURG anastrozole [From Arimidex] AdvReac Severe CAUSED Verified 09/07/22 16:12 INTERNAL BLEEDING meperidine AdvReac Mild N/V Verified 09/07/22 16:12 morphine AdvReac Mild N/V Verified 09/07/22 16:12 Home Medications Medication Instructions Recorded Confirmed Type albuterol sulfate 90 mcg/actuation 2 puff inhalation Q6 PRN Shortness 08/07/18 09/23/22 History aerosol inhaler Of Breath Or Wheezing multivitamin 1 tab PO QAM 08/07/18 09/23/22 History ascorbic acid (vitamin C) 500 mg 500 mg PO BIDM 11/02/19 09/23/22 History tablet (Vitamin C) pyridoxine (vitamin B6) 100 mg 100 mg PO QDL 10/12/20 09/23/22 History tablet (Vitamin B-6) cyanocobalamin (vitamin B-12) 1,000 mcg PO DAILY 01/07/21 09/23/22 History 1,000 mcg tablet (Vitamin B-12) ferrous sulfate 325 mg (65 mg 325 mg PO DAILY #60 tabs 01/04/22 09/23/22 Rx iron) tablet simvastatin 20 mg tablet 20 mg PO QPM #90 tabs 01/26/22 09/23/22 Rx colestipol 1 gram tablet (Colestid) 1 g PO DAILY #90 tabs 05/06/22 09/23/22 Rx amiodarone 200 mg tablet 200 mg PO DAILY #90 tabs 06/28/22 09/23/22 Rx sertraline 50 mg tablet 50 mg PO HS #90 tabs 07/02/22 09/23/22 Rx apixaban 5 mg tablet (Eliquis) 5 mg PO BID #180 tabs 07/08/22 09/23/22 Rx ipratropium 0.5 mg-albuterol 3 mg 3 ml inhalation Q4H PRN Shortness 08/05/22 09/07/22 Rx (2.5 mg base)/3 mL nebulization Of Breath Or Wheezing #540 mL soln prednisone 20 mg tablet 20 mg PO DIRECTED #12 tabs 08/28/22 09/23/22 Rx vitamin E (dl, acetate) 180 mg 180 mg PO DAILY 08/28/22 09/23/22 History (400 unit) capsule omeprazole 40 mg capsule,delayed 40 mg PO QAM #90 caps 08/31/22 09/23/22 Rx release ondansetron 8 mg disintegrating 8 mg translingual Q8 PRN Nausea 09/07/22 09/23/22 History tablet Magic Mouthwash 300 mL mouthwash 10 ml mucous membrane .Q3-4 hr PRN 09/23/22 09/23/22 History #300 mL cholecalciferol (vitamin D3) 25 25 mcg PO DAILY 09/23/22 09/23/22 History mcg (1,000 unit) capsule diphenoxylate-atropine 2.5 2 tab PO .Q6-8 hr PRN Diarrhea 09/23/22 09/23/22 H istory mg-0.025 mg tablet (Lomotil) xlwfreyizse-lwblofljj-nam C-Mn 500 1 cap PO BID 09/23/22 09/23/22 History mg-400 mg capsule (Glucosamine Chondroitin Maximum Strength) levothyroxine 150 mcg capsule 150 mcg PO DAILY 09/23/22 09/23/22 History magnesium oxide 400 mg PO BID 09/23/22 09/23/22 History potassium chloride 20 mEq 20 meq PO BID 09/23/22 09/23/22 History tablet,extended release prednisolone acetate 1 % eye 1 drp ophthalmic (eye) DAILY 09/23/22 09/23/22 History drops,suspension prochlorperazine maleate 10 mg 10 mg PO Q6H PRN 09/23/22 09/23/22 History tablet (Compazine) valacyclovir 1 gram tablet 1,000 mg PO DAILY PRN 09/23/22 09/23/22 History Patient History Medical History Acute GI bleeding Asthma Bacteremia Bilateral pulmonary embolism hx of 2012--reason for eliquis daily (had pneumonia right before and pt stat es she was not moving much) Candidiasis of intestine Chemotherapy adverse reaction Chronic diastolic congestive heart failure Colon cancer metastasized to lung (09/18/08) Depression Diverticulosis of colon DVT, lower extremity left leg, same time as PE Elevated lactic acid level Essential hypertension GERD (gastroesophageal reflux disease) GI bleed Gross hematuria History of anesthesia reaction difficulty waking at times as well as hx of waking up during sx (woke up during port placement) History of chemotherapy History of gastric ulcer History of immunocompromised state History of pulmonary embolus (PE) History of radiation therapy Hyperlipidemia Hypertension Hypothyroidism Hypoxia Infection due to Port-A-Cath Morbid obesity with BMI of 40.0-44.9, adult Neutropenia On anticoagulant therapy eliquis daily On home oxygen therapy 2L N/C at hs Osteoarthritis Radiation pneumonitis Seizures due to metabolic disorder x2-- one d/t medication anaphylaxis, and pt states second d/t low magnesium in 09/2019 Septicemia due to coagulase-negative staphylococcal infection Tachycardia Weakness Surgical History H/O: hysterectomy History of bilateral tubal ligation History of bladder suspension procedure History of bronchoscopy x2-3 History of cholecystectomy open 04/2020 History of colon surgery d/t colon cancer History of colonoscopy with polypectomy History of esophagogastroduodenoscopy (EGD) History of lobectomy of lung right upper lobe removed 06/2008 @ [facility] d/t colon cancer metastasis to lung History of lung surgery wedge resection of left lung d/t cancer History of radioactive iodine thyroid ablation History of removal of cyst off finger History of tonsillectomy History of vascular access device x2--A port in place right side of chest History of ventral hernia repair History of wisdom tooth extraction Family History Mother , early 80s of thyroid cancer Thyroid cancer Heart disease Family history of reaction to anesthesia at age 80, took 2 days to wake after thyroidectomy Father , age 81 of gangrene complications No problems noted. Uncle Colorectal cancer Sister Family history of diabetes mellitus Sister Family history of diabetes mellitus Brother Myocardial infarction Other Family history non-contributory Denies family history of Ovarian cancer Prostate cancer Breast cancer Social History Smoking Status: Never smoker Second Hand Exposure: Yes (father smoked); Do You Dip or Chew Tobacco: No; Hx Alcohol Use: No Hx Substance Use: No Preferred Language: Japanese Communication Ability: Effective Visual Impairment: No Limitations Hearing Ability: Normal Customer Relations Coordinator Required: No Beliefs That Will Affect Care: None marital status: Current Living Situation: Spouse Current Living Situation Comment: Lives with and son current occupational status: retired 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 [employer] Other Information That Helps Us Care for You: No other: 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 [employer] Feels Safe at Home: Yes Safety Concerns: Feels Safe At This Time Childhood Exposure to Second-Hand Smoke: Yes caffeine: Yes (12 0z daily) during the past year weight has: remained stable Seatbelt Use: always Assistive Devices: Walker Review of Systems Review of Systems: All systems reviewed & are unremarkable except as noted in HPI & below Physical Exam Constitutional: well developed, well nourished and + obese; no acute distress Neck: normal visual inspection Respiratory: no respiratory distress and no labored breathing Gastrointestinal (Abdomen): Percussion/Palpation: abdomen soft; abdomen nontender Musculoskeletal: Head/Neck/Chest: normocephalic Skin: Warm and dry, no rashes Neurologic: awake Psychiatric: Orientation: alert, oriented x 3 and cooperative Results & Data ([facility]) Vital Signs (Past 12 Hours) Vital Signs Temp Pulse Pulse Resp BP Pulse Ox O2 Del Method 10/13/22 11:42 37.1 C 104 H 20 167/94 H 91 Room Air 10/13/22 08:57 Room Air 10/13/22 08:53 113 H 10/13/22 07:36 37.6 C H 104 H 19 141/78 H 92 Room Air 10/13/22 03:36 36.9 C 65 20 116/69 93 CPAP PG Care Time/CCT Total # of Minutes Spent Total Time Spent with Patient: Total time spent is greater than 50% in coordination of care (as documented) at patient's floor/unit and/or counseling patient: Coding Level of Care Code 19765 Initial Inpt Care Lvl 2 Diagnoses Gross hematuria R31.0
[2022-10-13] MEDS: FAMOTIDINE 20 MG in SYRINGE 3 ML IV SCH (15:59)
[2022-10-13] MEDS: HEPARIN 100 UNIT/ML 5ML FLUSH FLUSH PRN (16:00)
[2022-10-13] MEDS: ACETAMINOPHEN 325 MG TAB PO PRN ×2 (16:38→23:39)
[2022-10-13] MEDS: SERTRALINE HCL 50 MG TABLET PO SCH (20:15)
[2022-10-13] MEDS: SIMVASTATIN 20 MG TAB PO SCH (20:15)
[2022-10-13] MEDS: ONDANSETRON INJ 2 MG/ML 2 ML VIAL IV PRN (23:36)
[2022-10-14] MEDS: LEVOTHYROXINE SODIUM 150 MCG TABLET PO SCH (05:37)
[2022-10-14 06:07] LABS: Basophils # (auto) 0.02 K/uL (0-0.2); Basophils % (auto) 0.1 %; Eosinophils # (auto) 0.12 K/uL (0-0.50); Eosinophils % (auto) 0.8 %; Hematocrit (blood only) 26.6 % (34.1-44.9); Hemoglobin 8.4 g/dl (12.0-16.0); Immature Granulocytes # (auto) 0.14 K/uL (0.00-0.02); Lymphocytes # (auto) 0.77 K/uL (1.2-3.4); Lymphocytes % (auto) 5.5 %; Mean Corpuscular Hemoglobin 32.8 pg (25.0-34.0); Mean Corpuscular Hgb Conc 31.6 g/dL (32.0-36.0); Mean Corpuscular Volume 103.9 fL (80.0-100.0); Mean Platelet Volume 10.8 fL (9.4-12.3); Monocytes # (auto) 1.57 K/uL (0.24-0.82); Monocytes % (auto) 11.1 %; Neutrophils % (auto) 81.5 %; Platelet Count 165 K/uL (130-400); RDW Coefficient of Variation 14.6 % (11.5-14.5); RDW Standard Deviation 55.8 fL (36.4-46.3); Red Blood Count 2.56 M/uL (3.93-5.22); White Blood Count 14.12 K/ul (4.8-10.8)
--- NOTE | 2022-10-14 06:33 | Hospitalist Progress Note ---
Date of Service October 13, 2022 Assessment & Plan (1) Iron deficiency anemia: Plan: While serum iron and iron binding capacity certainly suggest potential iron deficiency, ferritin has risen over 1000. Even with an element of pseudonormalization that certainly suggests that there is a moderate amount of iron on board and that she may have more iron utilization problems than true iron deficiency. She does have liver metastases but other liver enzymes are relatively normal suggesting against an acute liver injury that is producing this pattern. She is received 2 of 3 planned doses of Venofer, it might be prudent to hold on further iron for now and we can observe for a time. Her hemoglobin levels are not in a dangerous range. (2) Colon cancer metastasized to lung: Plan: Caris testing is underway and may be an important part of determining her treatment options. Her current status strongly suggests against resuming immediate cytotoxic regimens which constitute the bulk of our "standard" options given concern that there might be moderate efficacy at best if that and certainly could be specific hematopoietic and more general toxicity. Radiation could be a stopgap and as her immediate situation more completely stabilizes we should reengage with that team about short-term options. Pure palliative care would be an important consideration but she is not as yet willing to forego additional specific treatment Plan Would hold further iron, continue with supportive care. We await Caris testing before commenting on further medical oncology options, radiation oncology may need to help us bridge the gap to the availability of that information and as well to a time when she can get input from a quatern[facility] center about potential investigational options as well as probably hear from them about the importance of a palliative care only option that would maximize quality of life and ironically might avoid premature end-of-life and avoiding the complications of systemic treatment that is ineffective and yet not without toxicity Admission and Anticipated Discharge Date Admission Date: October 11, 2022 Subjective Feels some better though still weak. Nausea and vomiting have specifically improved, she reports some ongoing hematuria Physical Exam Physical Exam: More alert and seems in less distress, afebrile and vital signs overall stable Results & Data Results & Data ([facility]) Vital Signs (Past 12 Hours) Vital Signs Temp Pulse Pulse Resp BP Pulse Ox O2 Del Method 10/14/22 02:14 37.8 C H 101 H 18 146/77 H 92 CPAP 10/13/22 23:00 95 H 10/13/22 22:48 37.3 C 98 H 18 117/78 93 CPAP 10/13/22 19:40 37.1 C 99 H 18 130/67 92 Room Air, CPAP 10/13/22 19:46 Room Air PG Care Time/CCT Total # of Minutes Spent Total Time Spent with Patient: Total time spent is greater than 50% in coordination of care (as documented) at patient's floor/unit and/or counseling patient: Coding Level of Care Code 33040 Subseq Hosp Care Lvl 1 History Problem Focused Exam Problem Focused Medical Decision Making Moderate Complexity Diagnoses Iron deficiency anemia D50.9 Colon cancer metastasized to lung C18.9; C78.00
[2022-10-14 06:47] LABS: BUN Creatinine Ratio 13.9 (10-20); Calcium 8.5 mg/dl (8.5-10.1); Creatinine Clr Calc Pharmacy 80.5 ml/min; Est GFR (African American) 87.9 ml/min; Est GFR (Non-African American) 75.8 ml/min; Potassium 3.5 mmol/L (3.5-5.1)
--- NOTE | 2022-10-14 08:49 | Pulmonology Progress Note ---
Date of Service October 14, 2022 Assessment & Plan (1) Abnormal CT scan of lung: (2) Atelectasis of right lung: (3) Restrictive lung disease: (4) Chronic respiratory failure with hypoxia: (5) VU (obstructive sleep apnea): (6) Elevated diaphragm: (7) Multiple pulmonary nodules: Plan CT chest 10/11/2022 personally reviewed: Collapse of the right lung, there is mediastinal lymphadenopathy/mass 3.3*2.7cm which seems to be pushing on the RBI Pulmonary nodules appreciated on the left side, small right-sided pleural effusion Elevated the right hemidiaphragm Medius and lymphadenopathy seems to be getting worse compared to last CAT scan which was done in August --Pulmonary mass with collapse of the right lung, multiple pulmonary nodules Following up with cancer care currently on treatment for metastatic colon cancer Patient supposed to follow-up with Sheri on 10/27/2022 Overall prognosis unfortunately guarded although patient has good functional status --Exertional shortness of breath Multifactorial Two thirds of the right lung of the patient has been removed, she also got radiation to the right lower lobe-- > collapse of the right lower lobe on the latest CAT scan 08/202222 Grade 1 diastolic dysfunction might also be playing a role BMI of 39 also playing its part 6MWT 09/24/22:Patient walked 700 feet, she was able to maintain her saturation 90% on room air 2D echo 01/06/2022: EF 70%, grade 1 diastolic dysfunction, right ventricle is not well visualized --VU Patient has been using CPAP since 2006 Continue with CPAP --Elevated right hemidiaphragm Likely from right upper and right middle lobectomy done in the past Incentive spirometry will be beneficial -- Nocturnal hypoxia Uses oxygen bled into the CPAP -- Metastatic adenocarcinoma of the colon with mets to the lung S/p right upper lob[place] 2007 Dr. Zimmerman, right middle lobectomy [place] [address] Torres Patient follows up with cancer care Plan: Continue with incentive spirometry Would recommend to check for oxygen on exertion prior to discharge Please note the above document was generated using voice recognition software. It may contain grammatical, syntax or spelling errors.Any formal questions or concerns about the content, text or information contained within the body of this dictation should be directly addressed to the provider for clarification. Admission and Anticipated Discharge Date Admission Date: October 11, 2022 Subjective Patient seen and examined at bedside. No acute distress, no adverse events overnight. Does complain of some early to seal the right side of the chest. Denies any cough, not bringing up any phlegm No diarrhea since last night Has been afebrile No nausea or vomiting. Patient was saturating 90% on room air at the time of examination. It went up to 95% on asking her to take a deep breath Review of Systems Review of Systems: All systems reviewed & are unremarkable except as noted in Subjective Physical Exam Physical Exam: Constitutional: No acute distress HEENT: EOMI, PERRLA Respiratory system: Decreased air entry on the right side, no wheeze, no rhonchi, mild crackles left lower lobe CVS: S1-S2 positive, no murmurs or gallops, right-sided Port-A-Cath Abdomen: Soft, nontender, nondistended, positive bowel sounds x4, obese Extremities: +2 pulses bilaterally radialis/ dorsalis pedis, no cyanosis, no edema, fingers are thin with tapering in the periphery (sclerodactyly-like features) Neuro: Awake alert oriented x3 Psych: Normal mood and affect G/U: No Banks Skin: no rashes, warm and dry Lymphatic: no cervical or axillary lymphadenopathy Results & Data Results & Data ([facility]) Vital Signs (Past 12 Hours) Vital Signs Temp Pulse Pulse Pulse Resp BP Pulse Ox 10/14/22 07:00 92 H 10/14/22 07:23 37.1 C 95 H 18 112/62 91 10/14/22 02:14 37.8 C H 101 H 18 146/77 H 92 10/13/22 23:00 95 H 10/13/22 22:48 37.3 C 98 H 18 117/78 93 O2 Del Method 10/14/22 07:00 10/14/22 07:23 Room Air 10/14/22 02:14 CPAP 10/13/22 23:00 10/13/22 22:48 CPAP Laboratory Results 10/14/22 05:36 10/14/22 05:36 PG Care Time/CCT Total # of Minutes Spent Total Time Spent with Patient: Total time spent is greater than 50% in coordination of care (as documented) at patient's floor/unit and/or counseling patient: Coding Level of Care Code 61321 Subseq Hosp Care Lvl [address] scan of lung R91.8 Atelectasis of right lung J98.11 Restrictive lung disease J98.4 Chronic respiratory failure with hypoxia J96.11 VU (obstructive sleep apnea) G47.33 Elevated diaphragm J98.6 Multiple pulmonary nodules R91.8
[2022-10-14] MEDS: prednisoLONE acetate 1% OP SUSP 5 ML BTL OPL SCH (09:23)
[2022-10-14] MEDS: MAGNESIUM OXIDE 400 MG TAB PO SCH (09:23)
[2022-10-14] MEDS: APIXABAN 5 MG TABLET PO SCH (09:23)
[2022-10-14] MEDS: AMIODARONE 200 MG TAB PO SCH (09:23)
[2022-10-14] MEDS ORDERED: cephALEXin 250 MG CAP PO ONE (10:23)
[2022-10-14] MEDS: PANTOprazole 40 MG in SYRINGE 0 ML IV SCH (10:35)
--- NOTE | 2022-10-14 10:35 | Discharge Summary ---
Date of Service October 14, 2022 Admission HPI Per Admitting Provider Marie is a 72-year-old female with a past medical history of progressive metastatic colon cancer with history of right lung collapse who presented to the cancer clinic for follow-up and was found to have fevers, shortness of breath, nausea, vomiting, and fatigue. Patient was recommended for inpatient treatment and evaluation of pneumonia, patient refused ER evaluation but was agreeable to and recommended for direct admission to medical service. Case was discussed and signed out with hematology/oncology, patient is with fevers/shortness of breath/fatigue but is otherwise hemodynamically stable and is satting normally on room air with normal blood pressure and heart rate. She is recommended for admission for evaluation and treatment of potential pneumonia; due to medical complexity and comorbidity, and history of right lung collapse patient will be admitted to PCU level of care. S Mets Adenocarcinoma Tx/Hx Review Per ONC hnotes Diagnosed on colonoscopy 11/2007 Transbronchial biopsy of right upper lobe mass 12/2007 consistent with metastatic colonic adenocarcinoma, high-grade FOLFOX and cetuximab 12/2007distal transverse and proximal descending colectomy. pT3, pN1, pM1. FOLFOX/cetuximab resumed postop 09/2008: Staging PET/CT with improvement Completed FOLFOX/cetuximab 02/2009. 07/2011 PET/CT with left upper lobe new nodule suggestive of progressive metastasis 07/2011: VATS wedge excision of left upper lobe lesion, on pathology consistent with metastatic adenocarcinoma of the colon FOLFIRI/cetuximab initiated 07/2011. Additional course of salvage radiation therapy 11/2014: Enlarging right paramediastinal soft tissue mass 12/2014: Wedge resection right middle lobe with recurrent mass 3.7 x 3.5 x 2.9 cm 01/2016: PET/CT suggesting local versus regional recurrence just outside radiated pericardiac region anterior to right hilum. Not thought to be a candidate for further surgery. Did receive additional salvage radiation treatment to right hilar nodule 04/2016: Right hilar mass consistent with metastatic disease, received radiation therapy 09/2017: Enlarging FDG avid right hilar area, irinotecan plus cetuximab q. 14 days, subsequently on single agent cetuximab 04/2019 started Lonsurf but with progression. Switched to Stivarga but continued to have progression 09/2019: Rechallenge with FOLFOX therapy. Reacted to oxaliplatin, continued 5FEU and leukocoria in alone. Cholecystitis requiring cholecystectomy, Avastin added subsequently. 09/2020 AVMs requiring cauterization on [place] Resumed high-dose 5FEU, leuko-Corvin, the VAC is in [place] in October. Continue to have AVM bleeding Anticoagulated due to PE, Eliquis held for thrombocytopenia and subsequently resumed once improved Saw Dr. Marcus 01/2021 who recommended continuing glucocorticoid and, 5a few, +/- Avastin until definitive progression seen 04/2021: Right lung nodule biopsy with metastatic colorectal adenocarcinoma. No mutation in K-rosa maria, no BRAF mutation, HER2 negative by IHC Subsequent CTs 04/2021, 09/2021, 12/[address] scan 05/2022 with disease progression; switched to a irinotecan/panitumumab 08/2022: White out of right lung with complete collapse. Interval enlargement of mediastinal lymph nodes. Pulmonary was consulted, not a candidate for intervention with stenting at that time. Radiation oncology reviewed at tumor conference; guarded prognosis. To follow-up with [facility] for further Outpatient lab review 10/11/2022: New leukocytosis to 12.79. Hemoglobin 9.8, baseline around 1011 with MCV 103. Sodium normal, potassium normal at 3.7. Creatinine is with normal baseline, creatinine day of admission 0.76. No transaminitis. Marie is seen at the bedside. She reports about 1 week ago she had some upper respiratory symptoms including shortness of breath, dry cough, and increasing weakness. In the last day she has also developed nausea, nonbloody/nonbilious/nonmelanotic emesis and has had nonbloody nonmelanotic diarrhea as well. She feels generally wiped out. She is not having chest pain, chest pressure. She has not lost consciousness, but feels globally weak. She i s concerned about her metastatic cancer, cancer history as reviewed above. She did take her medications this morning. She reports she is not in pain at time of assessment, sometimes she does have pain which radiates into her back. Medical History: Reviewed Medications: Reviewed Surgical History: Reviewed Allergies: Reviewed Social History: Reviewed, no tobacco/etoh Code Status: Condition code, no CPR/shock/meds, OK with intubation Principal Diagnosis fever, uncomplicated UTI, Iron deficiency, gross hematuria Discharge Exam General-alert and oriented x3, no fevers, no chills HEENT-head atraumatic and normocephalic, pupils equal and reactive to light, extraocular muscles intact Neck-no lymphadenopathy or thyromegaly, trachea midline Chest-bilateral inspiratory rhonchi. No wheezing. No dullness Cardiac-regular rate and rhythm, normal S1 and S2, no murmurs Abdomen-normal bowel sounds, nontender, no hepatosplenomegaly Extremities-no cyanosis, clubbing, or edema Neuro-cranial nerves II through XII intact, motor and sensory function within normal limits, strength symmetrical , no focal deficits Psych-normal affect, normal mood Discharge Data Allergies Allergy/AdvReac Type Severity Reaction Status Date / Time diphtheria,pertussis Allergy Severe "Arm Verified 09/07/22 16:12 (acellular),te swelled [From Adacel(Tdap up," fever Adolesn/Adult)(PF)] irinotecan Allergy Severe perforations Verified 09/07/22 16:12 in bowel oxaliplatin Allergy Severe Anaphylaxis Verified 09/07/22 16:12 thiopental Allergy Intermediate INCREASED Verified 09/07/22 16:12 BLEEDING WITH WISDOM TEETH SURG anastrozole [From Arimidex] AdvReac Severe CAUSED Verified 09/07/22 16:12 INTERNAL BLEEDING meperidine AdvReac Mild N/V Verified 09/07/22 16:12 morphine AdvReac Mild N/V Verified 09/07/22 16:12 Consultations 10/11/22 18:26 Consult Oncology Routine Consult Pulmonology Routine 10/13/22 12:49 Consult Urology Routine Ordered Studies 10/11/22 12:56 CT Abd and Pelvis [CT abd pelvis IV con only] Urgent CT chest diagnostic w con Urgent Hospital Course (1) Fever and chills: Blood cultures remain negative. Lactobacillus isolated in urine. May be the cause of hematuria while on Eliquis. Will treat orally. I suspect her intermittent low grade fever is due to underlying malignancy and metastatic disease. No recent chemotherapy. No infections on CT chest/abdo/pelvis. Procalcitonin negative. Biofire stool and nasopharyngeal testing negative (2) Vomiting: Unclear cause but suspect related to her metstatic disease given no acute pathology found. This has improved. She has previously had cholecystectomy which removes the gallbladder as a consideration. (3) Colon cancer metastasized to lung: Mets Adenocarcinoma Tx/Hx Review Per ONC hnotes Diagnosed on colonoscopy 11/2007 Transbronchial biopsy of right upper lobe mass 12/2007 consistent with metastatic colonic adenocarcinoma, high-grade FOLFOX and cetuximab 12/2007distal transverse and proximal descending colectomy. pT3, pN1, pM1. FOLFOX/cetuximab resumed postop 09/2008: Staging PET/CT with improvement Completed FOLFOX/cetuximab 02/2009. 07/2011 PET/CT with left upper lobe new nodule suggestive of progressive metastasis 07/2011: VATS wedge excision of left upper lobe lesion, on pathology consistent with metastatic adenocarcinoma of the colon FOLFIRI/cetuximab initiated 07/2011. Additional course of salvage radiation therapy 11/2014: Enlarging right paramediastinal soft tissue mass 12/2014: Wedge resection right middle lobe with recurrent mass 3.7 x 3.5 x 2.9 cm 01/2016: PET/CT suggesting local versus regional recurrence just outside radiated pericardiac region anterior to right hilum. Not thought to be a candidate for further surgery. Did receive additional salvage radiation treatment to right hilar nodule 04/2016: Right hilar mass consistent with metastatic disease, received ra diation therapy 09/2017: Enlarging FDG avid right hilar area, irinotecan plus cetuximab q. 14 days, subsequently on single agent cetuximab 04/2019 started Lonsurf but with progression. Switched to Stivarga but continued to have progression 09/2019: Rechallenge with FOLFOX therapy. Reacted to oxaliplatin, continued 5FEU and leukocoria in alone. Cholecystitis requiring cholecystectomy, Avastin added subsequently. 09/2020 AVMs requiring cauterization on [place] Resumed high-dose 5FEU, leuko-Corvin, the VAC is in [place] in October. Continue to have AVM bleeding Anticoagulated due to PE, Eliquis held for thrombocytopenia and subsequently resumed once improved Saw Dr. Marcus 01/2021 who recommended continuing glucocorticoid and, 5a few, +/- Avastin until definitive progression seen 04/2021: Right lung nodule biopsy with metastatic colorectal adenocarcinoma. No mutation in K-rosa maria, no BRAF mutation, HER2 negative by IHC Subsequent CTs 04/2021, 09/2021, 12/[address] scan 05/2022 with disease progression; switched to a irinotecan/panitumumab 08/2022: White out of right lung with complete collapse. Interval enlargement of mediastinal lymph nodes. Pulmonary was consulted, not a candidate for intervention with stenting at that time. Radiation oncology reviewed at tumor conference; guarded prognosis. To follow-up with [facility] for further S/p right upper lobectomy 2007, 2014 Mediastinal mass with partial compression of the esophagus with some dilation Pending follow-up to [facility] for stenting Pending second opinion at [facility]. Patient is following with Dr. Weaver, is pending follow-up with his office before making a decision CT 08/2022: Collapse of the right lung, 3.4 x 2.3 cm right hilar mass. Small right-sided pleural effusion, inferior lingular lobe 1.5 cm nodule, another 1.1 cm left upper lobe nodule, left lower lobe 1.1 cm pulmonary nodule. Elevated right hemidiaphragm. Minimal mediastinal lymphadenopathy With exertional shortness of breath at baseline, but no baseline oxygen requirement during the day and oxygen and CPAP at night. 2 step eval before discharge (4) Chronic respiratory failure with hypoxia: Supplemental oxygen per nasal cannula to maintain saturation greater than 90% (5) History of pulmonary embolism: Continue Eliquis (6) Hypercholesterolemia: Continue simvastatin 20 mg daily (7) Hypothyroidism: TSH 0.798 Continue levothyroxine 150 mcg PO daily (8) VU (obstructive sleep apnea): CPAP HS (9) Port-A-Cath in place: Aware. Local care (10) Pulmonary mass: Appreciate pulmonology consult. No plans for intervention at this time. (11) Iron deficiency anemia: FOB negative. Parenteral iron replacement while hospitalized (12) UTI (urinary tract infection), uncomplicated: lactobacillus isolated. Will treat with po keflex. (13) Gross hematuria: urology consult appreciated. Outpatient cystoscopy recommended. Will treat UTI Plan VTE Prophylaxis - Eliquis Disposition: home today, 10/14/22. Total Time Total Time Spent Total Time Spent (In Minutes): 35 minutes Discharge Plan Discharge Items Patient Disposition: Home - Self-Care Reason For Visit: PNA,FEVER,MAYNOR [place] Discharge Diagnosis: Acute uncomplicated UTI, gross hematuris, fever Activity: Resume your previous activity Non-emergency contact: Primary Care Provider Call non-emergency contact if: you have any medication questions Follow-up/Referrals: Bacilio Garcia MD [Primary Care Provider] - Diet: Heart Healthy Addtl Attending Provider Instructions: take cephalexin for 3 days for bladder infection. If blood in urine resolves, no need for cystoscopy Pending Studies at Discharge: No Stand-Alone Forms: [facility], Smoking Cessation Medications and DC Order Prescriptions: New cephalexin 250 mg capsule 250 mg PO TID Qty: 8 0RF Continued prochlorperazine maleate [Compazine] 10 mg tablet 10 mg PO Q6H PRN prednisolone acetate 1 % drops,suspension 1 drp ophthalmic (eye) DAILY [id number] C-Mn [Glucosamine Chondroitin MaxStr] 500-400 mg capsule 1 cap PO BID potassium chloride 20 mEq tablet extended release 20 meq PO BID Magic Mouthwash 300 mL mouthwash 10 ml mucous membrane .Q3-4 hr PRNQty: 300 cholecalciferol (vitamin D3) 25 mcg (1,000 unit) capsule 25 mcg PO DAILY levothyroxine 150 mcg capsule 150 mcg PO DAILY colestipol [Colestid] 1 gram tablet 1 g PO DAILY Qty: 90 3RF sertraline 50 mg tablet 50 mg PO HS Qty: 90 3RF Eliquis 5 mg tablet 5 mg PO BID Qty: 180 3RF omeprazole 40 mg capsule,delayed release(DR/EC) 40 mg PO QAM Qty: 90 3RF cyanocobalamin (vitamin B-12) [Vitamin B-12] 1,000 mcg tablet 1,000 mcg PO DAILY ipratropium-albuterol 0.5 mg-3 mg(2.5 mg base)/3 mL solution for nebulization 3 ml INHALATION Q4H PRN (Reason: Shortness Of Breath Or Wheezing) Qty: 540 5RF diphenoxylate-atropine [Lomotil] 2.5-0.025 mg tablet 2 tab PO .Q6-8 hr PRN (Reason: Diarrhea) ferrous sulfate 325 mg (65 mg iron) tablet 325 mg PO DAILY Qty: 60 2RF simvastatin 20 mg tablet 20 mg PO QPM Qty: 90 3RF amiodarone 200 mg tablet 200 mg PO DAILY Qty: 90 3RF multivitamin Tablet 1 tab PO QAM albuterol sulfate 90 mcg/actuation HFA aerosol inhaler 2 puff Inhalation Q6 PRN (Reason: Shortness Of Breath Or Wheezing) pyridoxine (vitamin B6) [Vitamin B-6] 100 mg Tablet 100 mg PO QDL magnesium oxide 400 mg magnesium tablet 400 mg PO BID ascorbic acid (vitamin C) [Vitamin C] 500 mg Tablet 500 mg PO BIDM vitamin E (dl, acetate) 180 mg (400 unit) Capsule 180 mg PO DAILY prednisone 20 mg tablet 20 mg PO DIRECTED Qty: 12 0RF Rx Instructions: take 3 tab daily x 2 days, then take 2 tab daily x 2 days, then take 1 tab daily x 2 days ondansetron 8 mg tablet,disintegrating 8 mg translingual Q8 PRN (Reason: Nausea) valacyclovir 1 gram tablet 1,000 mg PO DAILY PRN Rx Instructions: Per 1st Discharge Orders: Discharge Order (Routine); Ordered 10/14/22 Ordered By: Anurag Rodriguez Admission Data Admit Date/Time: 10/11/22 14:42 Attending Provider: Anurag Rodriguez Admit Provider: Joe Evans Primary Care Provider: Bacilio Garcia Other Providers: Brandy Olea ; Yeni Harding ; Casey Dallas ; Segundo Richardson ; Bacilio Almonte ; Fallno Garcia ; Femi Fournier ; Kandy Kapadia ; Beata Andrews ; Greyson Clancy ; Clark Artis ; Zoey Baumann ; Keenan Nuno ; Jadon Garcia Coding Level of Care Code D/C DAY MANAGEMENT >30 MINS Diagnoses Fever and chills R50.9 Vomiting R11.10 Colon cancer metastasized to lung C18.9; C78.00 Chronic respiratory failure with hypoxia J96.11 History of pulmonary embolism Z86.711 Hypercholesterolemia E78.00 Hypothyroidism E03.9 VU (obstructive sleep apnea) G47.33 Port-A-Cath in place Z95.828 Pulmonary mass R91.8 Iron deficiency anemia D50.9 UTI (urinary tract infection), uncomplicated N39.0 Gross hematuria R31.0
[2022-10-14] MEDS: ONDANSETRON INJ 2 MG/ML 2 ML VIAL IV PRN (11:26)
[2022-10-14] MEDS ORDERED: PROMETHAZINE HCL INJ 25 MG/ML 1 ML VIAL IM STA (12:19)
[2022-10-14] MEDS: FAMOTIDINE 20 MG in SYRINGE 3 ML IV SCH (13:11)
== END 2022-10-14 14:33 | disposition home or self-care (01) | DRG 689 ==
LOC: 4W 14:42 → SUATTDRO 14:42

== ENCOUNTER 2022-10-31 19:30 | Inpatient (IN) ==
[2022-10-31] MEDS ORDERED: SODIUM CHLORIDE 0.9% 500 ML IV ONE (19:53)
[2022-10-31 21:13] LABS: Albumin Globulin Ratio 0.8 (0.9-2); Albumin Level 3.3 gm/dl (3.4-5.0); BUN Creatinine Ratio 12.1 (10-20); Bilirubin,Total 0.4 mg/dl (0.2-1.0); Calcium 9.5 mg/dl (8.5-10.1); Est GFR (African American) 74.1 ml/min; Est GFR (Non-African American) 63.9 ml/min; Magnesium 1.9 mg/dl (1.7-2.4); Phosphorus 3.9 mg/dl (2.5-4.9); Total Protein 7.3 gm/dl (6.0-8.3); Troponin I High Sensitivity 3.5 pg/ml (0-14)
[2022-10-31 21:22] LABS: Basophils # (auto) 0.04 K/uL (0-0.2); Basophils % (auto) 0.4 %; Eosinophils # (auto) 0.21 K/uL (0-0.50); Hematocrit (blood only) 33.6 % (34.1-44.9); Hemoglobin 10.3 g/dl (12.0-16.0); Immature Granulocytes # (auto) 0.05 K/uL (0.00-0.02); Immature Granulocytes % (auto) 0.5 %; Lymphocytes # (auto) 0.94 K/uL (1.2-3.4); Lymphocytes % (auto) 9.2 %; Mean Corpuscular Hemoglobin 32.2 pg (25.0-34.0); Mean Corpuscular Hgb Conc 30.7 g/dL (32.0-36.0); Mean Platelet Volume 10.1 fL (9.4-12.3); Monocytes # (auto) 0.87 K/uL (0.24-0.82); Monocytes % (auto) 8.5 %; Neutrophils # (auto) 8.15 K/uL (1.4-6.5); Neutrophils % (auto) 79.4 %; Platelet Count 261 K/uL (130-400); RDW Coefficient of Variation 15.7 % (11.5-14.5); RDW Standard Deviation 60.5 fL (36.4-46.3); White Blood Count 10.26 K/ul (4.8-10.8)
[2022-10-31] MEDS ORDERED: OPTIRAY 320 500ml IV ONE (22:34)
--- NOTE | 2022-10-31 23:19 | Emergency Department Note ---
Impression & Plan Metastatic colon cancer in female, Collapse of right lung, Nausea & vomiting, Cough with hemoptysis ED Provider Note NAME: MERCEDEZ ABEL AGE: 72 SEX: F ARRIVES VIA: Ambulance INFORMANT: Patient ED PROVIDER(S): Martin Butcher MD CHIEF COMPLAINT: Coughing blood clots. Nausea. PLAN: Disposition: Home MEDICAL DECISION MAKING: The patient is a pleasant 72-year-old woman with a past medical history of metastatic colon cancer with history of chronic right lung collapse who presents to the emergency department for evaluation of recurrence of hemoptysis where she has been coughing up larger clots more frequently than she did previously. She reports she did have similar episodes when she was in the hospital last but resolved upon holding her Eliquis which she is on for history of DVT/PE. She reports she resumed her Eliquis the day after her discharge. She reports nausea but denies vomiting. She denies any fevers, diarrhea or urinary symptoms. On arrival the patient is chronically ill-appearing but no distress, afebrile with stable vital signs. O2 saturation mid 90s on home oxygen via [place]. Diminished breath sounds of right lung gibbs. Scant wheeze of left lung gibbs. EKG without overt acute ischemia. Chest x-ray similar to prior. WBC and platelets within normal limits. H/H improved from prior values after receiving iron supplementation during her hospitalization previously. Chemistry without metabolic acidosis. Bicarbonate 34 consistent with patient's chronic respiratory failure. LFTs unremarkable. High-sensitivity troponin 3.5, within normal limits. BNP within normal limits. Lipase within normal limits. Respir atory viral panel pending. CTA of the chest was performed and was negative for PE and otherwise not significantly changed from previous study on October 11. Chronic right lung collapse secondary to soft tissue mass invading the right hilum causing postobstructive collapse. CT of the abdomen pelvis was also performed and showed no significant interval change of her right hepatic lobe mass. The patient did have several more episodes of coughing up of clots but no joel large-volume hemoptysis. Case was discussed with pulmonology on-call, Dr. Harding, who evaluated the patient on her prior hospitalization. Appreciate recommendations. Recommends admission for observation while holding her E liquis. If the patient were to develop more joel hemoptysis/large-volume hemoptysis she would need transfer at this time. However given she is currently stable reasonable to admit here for further observation. Recommends guaifenesin/codeine q8h. Case was discussed with Dr. Jiang, [facility] [place], who will evaluate the patient for admission. Triage Nursing notes reviewed and agree them. Prior medical records reviewed Vital Signs: reviewed Differential diagnosis: Reactive airway disease, pneumonia, pneumothorax, COPD, CHF, infections, cardiac ischemia, pulmonary embolism, musculoskeletal, gastrointestinal, as well as other pathologies. ER treatment provided: See below. Diagnostics interpreted by me: ECG: Sinus tachycardia, 103 bpm, no ectopy, no overt ST elevation or depression, QTC 463, QRS 82. Cardiac Monitoring: An order for continuous cardiac monitoring was placed and demonstrated Sinus tachycardia, 103 bpm, no ectopy Laboratory studies: See below Imaging studies: See below Consultation(s): Dr. Harding, Pulmonology on-call Dr. Jiang [facility] [place] hospitalist. HPI: The patient is a pleasant 72-year-old woman with a past medical history of metastatic colon cancer with history of chronic right lung collapse who presents to the emergency department for evaluation of recurrence of hemoptysis where she has been coughing up larger clots more frequently than she did previously. She reports she did have similar episodes when she was in the hospital last but resolved upon holding her Eliquis which she is on for history of DVT/PE. She reports she resumed her Eliquis the day after her discharge. She reports nausea but denies vomiting. She denies any fevers, diarrhea or urinary symptoms. ROS: See above HPI for pertinent positives & negatives. A total of 10 systems reviewed and were otherwise negative. VITALS:See Below PHYSICAL EXAMINATION: GENERAL: Awake, alert, chronically ill-appearing, in no distress, BMI 37.0 HENT: Normocephalic, atraumatic. Oropharynx with dry mucous membranes and otherwise unremarkable. EYES: Normal conjunctiva. Sclera non-icteric. NECK: Supple. No nuchal rigidity. FROM. No JVD. RESPIRATORY: Diminished RLQ gibbs. Scant wheeze of left lung gibbs. CARDIAC: Regular rate, normal rhythm. Extremities warm and well perfused. Pulses equal. ABDOMEN: Soft, non-distended. No tenderness to palpation. No rebound or guarding. No masses. RECTAL: Deferred. MUSCULOSKELETAL: Chest examination reveals no tenderness. The back is symmetrical on inspection without obvious abnormality. There is no CVA tenderness to palpation. No joint edema. LOWER EXTREMITIES: Calves are equal size bilaterally and non-tender. 1+ BLE edema. No discoloration. NEURO: Normal sensorium. No sensory or motor deficits noted. SKIN: No rash or jaundice noted. Martin Butcher MD Past Med/Surg History Medical History Abnormal CT scan of lung Acute GI bleeding Anemia Antineoplastic chemotherapy induced pancytopenia Asthma Atelectasis of right lung Bacteremia Bilateral pulmonary embolism hx of 2012--reason for eliquis daily (had pneumonia right before and pt states she was not moving much) Candidiasis of intestine Chemotherapy adverse reaction Chronic diastolic congestive heart failure Chronic respiratory failure with hypoxia Colon cancer metastasized to lung (09/18/08) Depression Diverticulosis of colon DVT, lower extremity left leg, same time as PE Elevated diaphragm Elevated lactic acid level Essential hypertension GERD (gastroesophageal reflux disease) GI bleed Gross hematuria History of anesthesia reaction difficulty waking at times as well as hx of waking up during sx (woke up during port placement) History of chemotherapy History of gastric ulcer History of immunocompromised state History of pulmonary embolism History of pulmonary embolus (PE) History of radiation therapy Hypercholesterolemia Hyperlipidemia Hypertension Hypothyroidism Hypothyroidism Hypoxia Infection due to Port-A-Cath Iron deficiency anemia Morbid obesity with BMI of 40.0-44.9, adult Multiple pulmonary nodules Neutropenia On anticoagulant therapy eliquis daily On home oxygen therapy 2L N/C at hs VU (obstructive sleep apnea) Osteoarthritis Port-A-Cath in place Pulmonary mass Radiation pneumonitis Restrictive lung disease Seizures due to metabolic disorder x2-- one d/t medication anaphylaxis, and pt states second d/t low magnesium in 09/2019 Septicemia due to coagulase-negative staphylococcal infection Tachycardia Weakness Surgical History H/O: hysterectomy History of bilateral tubal ligation History of bladder suspension procedure History of bronchoscopy x2-3 History of cholecystectomy open 04/2020 History of colon surgery d/t colon cancer History of colonoscopy with polypectomy History of esophagogastroduodenoscopy (EGD) History of lobectomy of lung right upper lobe removed 06/2008 @ [facility] d/t colon cancer metastasis to lung History of lung surgery wedge resection of left lung d/t cancer History of radioactive iodine thyroid ablation History of removal of cyst off finger History of tonsillectomy History of vascular access device x2--A port in place right side of chest History of ventral hernia repair History of wisdom tooth extraction Status post cholecystectomy Family History Mother , early 80s of thyroid cancer Thyroid cancer Heart disease Family history of reaction to anesthesia at age 80, took 2 days to wake after thyroidectomy Father , age 81 of gangrene complications No problems noted. Uncle Colorectal cancer Sister Family history of diabetes mellitus Sister Family history of diabetes mellitus Brother Myocardial infarction Other Family history non-contributory Denies family history of Ovarian cancer Prostate cancer Breast cancer Social History Smoking Status: Never smoker Second Hand Exposure: Yes (father smoked); Hx Alcohol Use: No Hx Substance Use: No Preferred Language: Trinidadian Communication Ability: Effective Visual Impairment: No Limitations Hearing Ability: Normal Drafter Marine Required: No Beliefs That Will Affect Care: None marital status: Current Living Situation: Spouse and Family Current Living Situation Comment: lives with and son in 1.5 story home with 1st floor set up current occupational status: retired 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 [employer] Other Information That Helps Us Care for You: No other: 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 [employer] Villeg[place] [facility] [place] [facility] [place]: Yes Safety Concerns: Feels Safe At This Time Childhood Exposure to Second-Hand Smoke: Yes caffeine: Yes (12 0z daily) during the past year weight has: remained stable Seatbelt Use: always Assistive Devices: Cane, Glasses, Oxygen - at Night, Walker and Wheelchair Allergies Allergies Allergy/AdvReac Type Severity Reaction Status Date / Time diphtheria,pertussis Allergy Severe "Arm Verified 11/01/22 01:26 (acellular),te swelled [From Adacel(Tdap up," fever Adolesn/Adult)(PF)] irinotecan Allergy Severe perforations Verified 11/01/22 01:26 in bowel oxaliplatin Allergy Severe Anaphylaxis Verified 11/01/22 01:26 thiopental Allergy Intermediate INCREASED Verified 11/01/22 01:26 BLEEDING WITH WISDOM TEETH SURG anastrozole [From Arimidex] AdvReac Severe CAUSED Verified 11/01/22 01:26 INTERNAL BLEEDING meperidine AdvReac Mild N/V Verified 11/01/22 01:26 morphine AdvReac Mild N/V Verified 11/01/22 01:26 Home Meds Home Medications Medication Instructions Recorded Confirmed albuterol sulfate 90 mcg/actuation 2 puff inhalation Q6 PRN Shortness 08/07/18 11/01/22 aerosol inhaler Of Breath Or Wheezing multivitamin 1 tab PO QAM 08/07/18 11/01/22 ascorbic acid (vitamin C) 500 mg 500 mg PO BIDM 11/02/19 11/01/22 tablet (Vitamin C) pyridoxine (vitamin B6) 100 mg 100 mg PO QDL 10/12/20 11/01/22 tablet (Vitamin B-6) cyanocobalamin (vitamin B-12) 1,000 mcg PO DAILY 01/07/21 11/01/22 1,000 mcg tablet (Vitamin B-12) vitamin E (dl, acetate) 180 mg 180 mg PO DAILY 08/28/22 11/01/22 (400 unit) capsule ondansetron 8 mg disintegrating 8 mg translingual Q8 PRN Nausea 09/07/22 11/01/22 tablet Magic Mouthwash 300 mL mouthwash 10 ml mucous membrane .Q3-4 hr PRN 09/23/22 11/01/22 sore mouth #300 mL cholecalciferol (vitamin D3) 25 25 mcg PO DAILY 09/23/22 11/01/22 mcg (1,000 unit) capsule diphenoxylate-atropine 2.5 2 tab PO .Q6-8 hr PRN Diarrhea 09/23/22 11/01/22 mg-0.025 mg tablet (Lomotil) [id number] C-Mn 500 1 cap PO WE 09/23/22 11/01/22 mg-400 mg capsule (Glucosamine Chondroitin Maximum Strength) levothyroxine 150 mcg capsule 150 mcg PO DAILY 09/23/22 11/01/22 magnesium oxide 400 mg PO BID 09/23/22 11/01/22 potassium chloride 20 mEq 20 meq PO BID 09/23/22 11/01/22 tablet,extended release prednisolone acetate 1 % eye 1 drp ophthalmic (eye) DAILY 09/23/22 11/01/22 drops,suspension prochlorperazine maleate 10 mg 10 mg PO Q6H PRN Nausea 09/23/22 11/01/22 tablet (Compazine) valacyclovir 1 gram tablet 1,000 mg PO DAILY PRN .breakouts 09/23/22 11/01/22 Previous Rx's Medication Instructions Recorded ferrous sulfate 325 mg (65 mg 325 mg PO DAILY #60 tabs 01/04/22 iron) tablet simvastatin 20 mg tablet 20 mg PO QPM #90 tabs 01/26/22 colestipol 1 gram tablet (Colestid) 1 g PO DAILY #90 tabs 05/06/22 amiodarone 200 mg tablet 200 mg PO DAILY #90 tabs 06/28/22 sertraline 50 mg tablet 50 mg PO HS #90 tabs 07/02/22 apixaban 5 mg tablet (Eliquis) 5 mg PO BID #180 tabs 07/08/22 ipratropium 0.5 mg-albuterol 3 mg 3 ml inhalation Q4H PRN Shortness 08/05/22 (2.5 mg base)/3 mL nebulization Of Breath Or Wheezing #540 mL soln omeprazole 40 mg capsule,delayed 40 mg PO QAM #90 caps 08/31/22 release Results & Data (ED) Vital Signs Vital Signs - 24 hr 10/31/22 19:19 10/31/22 19:39 10/31/22 20:39 Temperature 36.9 C 36.9 C Temperature Source Oral Oral Pulse Rate 105 H 101 H Pulse Rate [Apical] 105 H Pulse Rhythm Regular Respiratory Rate 18 20 18 Respiratory Effort / Characteristics Non-Labored Non-Labored Respiratory Depth Normal Shallow Respiratory Pattern Regular Blood Pressure 151/88 H Blood Pressure [Right Arm] 151/88 H Blood Pressure Mean 109 Blood Pressure Mean [Right Arm] 109 Pulse Oximetry 87 L 90 98 Oxygen Delivery Method Room Air Nasal Cannula Room Air Oxygen Flow Rate 3 Sepsis Recent Fever Within 48 Hours No Sepsis New/Unexplained Change in Mental Status No Sepsis Action Taken by Nursing No Action Required 10/31/22 22:13 Temperature Temperature Source Pulse Rate Pulse Rate [Apical] 100 H Pulse Rhythm Respiratory Rate 18 Respiratory Effort / Characteristics Respiratory Depth Respiratory Pattern Blood Pressure Blood Pressure [Right Arm] 124/66 Blood Pressure Mean Blood Pressure Mean [Right Arm] 85 Pulse Oximetry 99 Oxygen Delivery Method Nasal Cannula Oxygen Flow Rate 3 Sepsis Recent Fever Within 48 Hours Sepsis New/Unexplained Change in Mental Status Sepsis Action Taken by Nursing Laboratory Data Attestation: I reviewed the patient's lab results. Result diagrams: 10/31/22 20:22 10/31/22 20:22 Lab Results 10/31/22 10/31/22 10/31/22 Range/Units 20:22 20:22 20:22 WBC 10.26 (4.8-10.8) K/ul RBC 3.20 L (3.93-5.22) M/uL Hgb 10.3 L (12.0-16.0) g/dl Hct 33.6 L (34.1-44.9) % MCV 105.0 H (80.0-100.0) fL MCH 32.2 (25.0-34.0) pg MCHC 30.7 L (32.0-36.0) g/dL RDW Std Deviation 60.5 H (36.4-46.3) fL RDW Coeff of Marcell 15.7 H (11.5-14.5) % Plt Count 261 (130-400) K/uL MPV 10.1 (9.4-12.3) fL Immature Gran % (Auto) 0.5 % Neut % (Auto) 79.4 % Lymph % (Auto) 9.2 % [place] % (Auto) 8.5 % Eos % (Auto) 2.0 % Baso % (Auto) 0.4 % Neut # (Auto) 8.15 H (1.4-6.5) K/uL Lymph # (Auto) 0.94 L (1.2-3.4) K/uL [place] # (Auto) 0.87 H (0.24-0.82) K/uL Eos # (Auto) 0.21 (0-0.50) K/uL Baso # (Auto) 0.04 (0-0.2) K/uL Immature Gran # (Auto) 0.05 H (0.00-0.02) K/uL Sodium 137 (136-145) mmol/L Potassium 4.0 (3.5-5.1) mmol/L Chloride 97 L (98-107) mmol/L Carbon Dioxide 34 H (21-32) mmol/L Anion Gap 6 (3-11) BUN 11 (6-23) mg/dl Creatinine 0.91 (0.6-1.2) mg/dl Est Cr Clr Drug Dosing 69.0 ml/min Est GFR ( Amer) 74.1 ml/min Est GFR (Non-Af Amer) 63.9 ml/min BUN/Creatinine Ratio 12.1 (10-20) Glucose 90 (70-99(Fasting)) mg/dl Calcium 9.5 (8.5-10.1) mg/dl Phosphorus 3.9 (2.5-4.9) mg/dl Magnesium 1.9 (1.7-2.4) mg/dl Total Bilirubin 0.4 (0.2-1.0) mg/dl AST 28 (13-39) U/L ALT 7 (7-52) U/L Alkaline Phosphatase 94 (34-104) U/L Troponin I High Sens 3.5 D (0-14) pg/ml B-Natriuretic Peptide 51 (0-100) pg/ml Total Protein 7.3 (6.0-8.3) gm/dl Albumin 3.3 L (3.4-5.0) gm/dl Globulin 4.0 (2.5-4.0) gm/dl Albumin/Globulin Ratio 0.8 L (0.9-2) Lipase 9 L (11-82) U/L Adenovirus (PCR) (NotDetected) B. pertussis DNA (PCR) (NotDetected) B.parapertussis DNA PCR (NotDetected) C. pneumoniae DNA (PCR) (NotDetected) Coronavirus OC43 (PCR) (NotDetected) Coronavirus HKU1 (PCR) (NotDetected) Coronavirus 229E (PCR) (NotDetected) SARS-CoV-2 (PCR) (NotDetected) Coronavirus NL63 (PCR) (NotDetected) Human Metapneumovir PCR (NotDetected) Influenza Type A (PCR) (NotDetected) Influenza Type B (PCR) (NotDetected) M. pneumoniae (PCR) (NotDetected) Parainfluenza 1 (PCR) (NotDetected) Parainfluenza 2 (PCR) (NotDetected) Parainfluenza 3 (PCR) (NotDetected) Parainfluenza 4 (PCR) (NotDetected) RSV (PCR) (NotDetected) Entero/Rhino (PCR) (NotDetected) 10/31/22 Range/Units 23:46 WBC (4.8-10.8) K/ul RBC (3.93-5.22) M/uL Hgb (12.0-16.0) g/dl Hct (34.1-44.9) % MCV (80.0-100.0) fL MCH (25.0-34.0) pg MCHC (32.0-36.0) g/dL RDW Std Deviation (36.4-46.3) fL RDW Coeff of Marcell (11.5-14.5) % Plt Count (130-400) K/uL MPV (9.4-12.3) fL Immature Gran % (Auto) % Neut % (Auto) % Lymph % (Auto) % [place] % (Auto) % Eos % (Auto) % Baso % (Auto) % Neut # (Auto) (1.4-6.5) K/uL Lymph # (Auto) (1.2-3.4) K/uL [place] # (Auto) (0.24-0.82) K/uL Eos # (Auto) (0-0.50) K/uL Baso # (Auto) (0-0.2) K/uL Immature Gran # (Auto) (0.00-0.02) K/uL Sodium (136-145) mmol/L Potassium (3.5-5.1) mmol/L Chloride (98-107) mmol/L Carbon Dioxide (21-32) mmol/L Anion Gap (3-11) BUN (6-23) mg/dl Creatinine (0.6-1.2) mg/dl Est Cr Clr Drug Dosing ml/min Est GFR ( Amer) ml/min Est GFR (Non-Af Amer) ml/min BUN/Creatinine Ratio (10-20) Glucose (70-99(Fasting)) mg/dl Calcium (8.5-10.1) mg/dl Phosphorus (2.5-4.9) mg/dl Magnesium (1.7-2.4) mg/dl Total Bilirubin (0.2-1.0) mg/dl AST (13-39) U/L ALT (7-52) U/L Alkaline Phosphatase (34-104) U/L Troponin I High Sens (0-14) pg/ml B-Natriuretic Peptide (0-100) pg/ml Total Protein (6.0-8.3) gm/dl Albumin (3.4-5.0) gm/dl Globulin (2.5-4.0) gm/dl Albumin/Globulin Ratio (0.9-2) Lipase (11-82) U/L Adenovirus (PCR) Not Detected (NotDetected) B. pertussis DNA (PCR) Not Detected (NotDetected) B.parapertussis DNA PCR Not Detected (NotDetected) C. pneumoniae DNA (PCR) Not Detected (NotDetected) Coronavirus OC43 (PCR) Not Detected (NotDetected) Coronavirus HKU1 (PCR) Not Detected (NotDetected) Coronavirus 229E (PCR) Not Detected (NotDetected) SARS-CoV-2 (PCR) Not Detected (NotDetected) Coronavirus NL63 (PCR) Not Detected (NotDetected) Human Metapneumovir PCR Not Detected (NotDetected) Influenza Type A (PCR) Not Detected (NotDetected) Influenza Type B (PCR) Not Detected (NotDetected) M. pneumoniae (PCR) Not Detected (NotDetected) Parainfluenza 1 (PCR) Not Detected (NotDetected) Parainfluenza 2 (PCR) Not Detected (NotDetected) Parainfluenza 3 (PCR) Not Detected (NotDetected) Parainfluenza 4 (PCR) Not Detected (NotDetected) RSV (PCR) Not Detected (NotDetected) Entero/Rhino (PCR) Not Detected (NotDetected) Administered Medications Discontinued Medications Sodium Chloride (Nss) 500 mls @ 999 mls/hr IV .Q31M ONE Stop: 10/31/22 20:23 Last Infusion: 10/31/22 22:14 Dose: 0 mls/hr Documented By: Admin: 10/31/22 20:48 Dose: 999 mls/hr Documented By: STEPH Ioversol (Optiray 320 500ml) 114 ml IV ONCE ONE Stop: 10/31/22 22:35 Last Admin: 10/31/22 22:35 Dose: 114 ml Documented By: SILAS Imaging Data Radiologist's Impression: STATRAD Preliminary Findings Only See Final Report For Complete Findings CTA CHEST: Comparison is made to the prior examination dated 10/11/22. Redemonstrated is a soft tissue mass invading the right hilum and causing postobstructive collapse of the entire right lung. Multiple left-sided lung nodules are not significant change from the recent prior examination. There is excellent opacification of the pulmonary arterial tree, no pulmonary arterial filling defect is seen. A sma ll right-sided effusion is noted. No pneumothorax. A right chest port is in place with catheter tip extending to the right atrium. Please see the dedicated interpretation of the abdomen and pelvis. Radiologist: Willis Og MD Study ready at 22:48 and initial results transmitted at 22:54 Preliminary Findings Only See Final Report For Complete Findings CT ABDOMEN & PELVIS With Contrast: Comparison is made to the prior study dated 10/11/22. There is been no interval change in the right hepatic lobe mass. The patient is status post cholecystectomy. There are calcifications in the spleen which most likely reflect granulomas. There is a nonobstructing right upper pole intrarenal calculus. There are bilateral parapelvic renal cysts. There are postsurgical changes of the ventral abdominal wall. No acute pathology is identified in the abdomen or pelvis. Radiologist: Willis Og MD Study ready at 22:48 and initial results transmitted at 22:55 Discharge Plan Visit Data Chief Complaint: Vomiting Stated Complaint: Coughing up blood ED Provider: Martin Butcher Discharge Problem: Metastatic colon cancer in female, Collapse of right lung, Nausea & vomiting, Cough with hemoptysis Patient Disposition: Admitted As Inpatient Discharge Instructions Interventions: ED Discharge Assessment Last Done: 11/01/22 02:45
[2022-11-01 00:50] LABS: Adenovirus PCR Not Detected (NotDetected); Bordetella parapertussis PCR Not Detected (NotDetected); Bordetella pertussis PCR Not Detected (NotDetected); Chlamydia pneumoniae PCR Not Detected (NotDetected); Coronavirus 229E PCR Not Detected (NotDetected); Coronavirus CoV-2 (COVID19)PCR Not Detected (NotDetected); Coronavirus HKU1 PCR Not Detected (NotDetected); Coronavirus NL63 PCR Not Detected (NotDetected); Coronavirus OC43PCR Not Detected (NotDetected); Human Metapneumovirus PCR Not Detected (NotDetected); Influenza A PCR Not Detected (NotDetected); Influenza B PCR Not Detected (NotDetected); Mycoplasma pneumoniae PCR Not Detected (NotDetected); Parainfluenza Virus 1 PCR Not Detected (NotDetected); Parainfluenza Virus 2 PCR Not Detected (NotDetected); Parainfluenza Virus 3 PCR Not Detected (NotDetected); Parainfluenza Virus 4 PCR Not Detected (NotDetected); Respiratory Syncytial VirusPCR Not Detected (NotDetected); Rhinovirus/Enterovirus PCR Not Detected (NotDetected)
--- NOTE | 2022-11-01 01:17 | History & Physical Report ---
Date of Service November 01, 2022 Assessment & Plan (1) Cough with hemoptysis: Plan: 72yo female with history of metastatic colon cancer, known lung metastases with collapse of right lung presenting with hemoptysis. Patient is HD stable, no respiratory distress. Most likely secondary to known malignancy -Admit to medical -Hold Eliquis -Guaifenesin with Codeine TID -Pulmonary consultation appreciated (2) Metastatic colon cancer in female: Plan: Patient follows with [facility] [place]. (3) COPD (chronic obstructive pulmonary disease): Plan: Chronic. Stable -Continue nebs (4) History of DVT (deep vein thrombosis): Plan: On Eliquis, now on hold -SCDs History of Present Illness Chief Complaint: hemoptysis Primary Care Provider: Bacilio Garcia MD Marie Bee is a 72yo female with adenocarcinoma of the colon with metastatic disease to the lung with mass in the right hilum diagnosed in 12/2007. She has undergone surgery as well as chemotherapy. She has known collapse of the right lung. Patient follows with Oncology at [facility] [place]. Last seen on 10/19/22. Review of that note remarks on progression of metastatic disease since CT taken in August 2022 as well as collapse of the right lung with occlusion of the bronchus intermedius due to tumor. Patient is being considered to resume immunotherapy at this time. She presents today with several episodes of hemoptysis ongoing since the afternoon. She has been coughing up bright red blood as well as dark blood with small clots. She denies fever, chills, sweats or malaise. Denies chest pain, palpitations, worsening of her baseline dizziness or worsening of her SOB. 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 This was temporary on hold due to report of GIB. She resumed her Eliquis approximately 2 weeks ago. She denies rectal bleeding or hematuria. Patient has a chronic cough which is unchanged. Also with several episodes of non-bloody/non-bilious emesis over the last several days. She has also had some diarrhea. No additional complaints. In the ER she is afebrile, HD stable, non-toxic in appearance. No respiratory complaints. Adequate oxygenation on 3L NC which is her baseline. Allergies Allergy/AdvReac Type Severity Reaction Status Date / Time diphtheria,pertussis Allergy Severe "Arm Verified 11/01/22 01:26 (acellular),te swelled [From Adacel(Tdap up," fever Adolesn/Adult)(PF)] irinotecan Allergy Severe perforations Verified 11/01/22 01:26 in bowel oxaliplatin Allergy Severe Anaphylaxis Verified 11/01/22 01:26 thiopental Allergy Intermediate INCREASED Verified 11/01/22 01:26 BLEEDING WITH WISDOM TEETH SURG anastrozole [From Arimidex] AdvReac Severe CAUSED Verified 11/01/22 01:26 INTERNAL BLEEDING meperidine AdvReac Mild N/V Verified 11/01/22 01:26 morphine AdvReac Mild N/V Verified 11/01/22 01:26 Home Medications Medication Instructions Recorded Confirmed Type albuterol sulfate 90 mcg/actuation 2 puff inhalation Q6 PRN Shortness 08/07/18 11/01/22 History aerosol inhaler Of Breath Or Wheezing multivitamin 1 tab PO QAM 08/07/18 11/01/22 History ascorbic acid (vitamin C) 500 mg 500 mg PO BIDM 11/02/19 11/01/22 History tablet (Vitamin C) pyridoxine (vitamin B6) 100 mg 100 mg PO QDL 10/12/20 11/01/22 History tablet (Vitamin B-6) cyanocobalamin (vitamin B-12) 1,000 mcg PO DAILY 01/07/21 11/01/22 History 1,000 mcg tablet (Vitamin B-12) ferrous sulfate 325 mg (65 mg 325 mg PO DAILY #60 tabs 01/04/22 11/01/22 Rx iron) tablet simvastatin 20 mg tablet 20 mg PO QPM #90 tabs 01/26/22 11/01/22 Rx colestipol 1 gram tablet (Colestid) 1 g PO DAILY #90 tabs 05/06/22 11/01/22 Rx amiodarone 200 mg tablet 200 mg PO DAILY #90 tabs 06/28/22 11/01/22 Rx sertraline 50 mg tablet 50 mg PO HS #90 tabs 07/02/22 11/01/22 Rx apixaban 5 mg tablet (Eliquis) 5 mg PO BID #180 tabs 07/08/22 11/01/22 Rx ipratropium 0.5 mg-albuterol 3 mg 3 ml inhalation Q4H PRN Shortness 08/05/22 11/01/22 Rx (2.5 mg base)/3 mL nebulization Of Breath Or Wheezing #540 mL soln vitamin E (dl, acetate) 180 mg 180 mg PO DAILY 08/28/22 11/01/22 History (400 unit) capsule omeprazole 40 mg capsule,delayed 40 mg PO QAM #90 caps 08/31/22 11/01/22 Rx release ondansetron 8 mg disintegrating 8 mg translingual Q8 PRN Nausea 09/07/22 11/01/22 History tablet Magic Mouthwash 300 mL mouthwash 10 ml mucous membrane .Q3-4 hr PRN 09/23/22 11/01/22 History sore mouth #300 mL cholecalciferol (vitamin D3) 25 25 mcg PO DAILY 09/23/22 11/01/22 History mcg (1,000 unit) capsule diphenoxylate-atropine 2.5 2 tab PO .Q6-8 hr PRN Diarrhea 09/23/22 11/01/22 History mg-0.025 mg tablet (Lomotil) [id number] C-Mn 500 1 cap PO WE 09/23/22 11/01/22 History mg-400 mg capsule (Glucosamine Chondroitin Maximum Strength) levothyroxine 150 mcg capsule 150 mcg PO DAILY 09/23/22 11/01/22 History magnesium oxide 400 mg PO BID 09/23/22 11/01/22 History potassium chloride 20 mEq 20 meq PO BID 09/23/22 11/01/22 History tablet,extended release prednisolone acetate 1 % eye 1 drp ophthalmic (eye) DAILY 09/23/22 11/01/22 History drops,suspension prochlorperazine maleate 10 mg 10 mg PO Q6H PRN Nausea 09/23/22 11/01/22 History tablet (Compazine) valacyclovir 1 gram tablet 1,000 mg PO DAILY PRN .breakouts 09/23/22 11/01/22 History Past Med/Surg History Medical History Acute GI bleeding Asthma Bacteremia Bilateral pulmonary embolism hx 2012--reason for eliquis daily (had pneumonia right before and pt states she was not moving much) Candidiasis of intestine Chemotherapy adverse reaction Chronic diastolic congestive heart failure Colon cancer metastasized to lung (09/18/08) Depression Diverticulosis of colon DVT, lower extremity left leg, same time as PE Elevated lactic acid level Essential hypertension GERD (gastroesophageal reflux disease) GI bleed Gross hematuria History of anesthesia reaction difficulty waking at times as well as hx of waking up during sx (woke up during port placement) History of chemotherapy History of gastric ulcer History of immunocompromised state History of pulmonary embolus (PE) History of radiation therapy Hyperlipidemia Hypertension Hypothyroidism Hypoxia Infection due to Port-A-Cath Morbid obesity with BMI of 40.0-44.9, adult Neutropenia On anticoagulant therapy eliquis daily On home oxygen therapy 2L N/C at hs Osteoarthritis Radiation pneumonitis Seizures due to metabolic disorder x2-- one d/t medication anaphylaxis, and pt states second d/t low magnesium in 09/2019 Septicemia due to coagulase-negative staphylococcal infection Tachycardia Weakness Surgical History H/O: hysterectomy History of bilateral tubal ligation History of bladder suspension procedure History of bronchoscopy x2-3 History of cholecystectomy open 04/2020 History of colon surgery d/t colon cancer History of colonoscopy with polypectomy History of esophagogastroduodenoscopy (EGD) History of lobectomy of lung right upper lobe removed 06/2008 @ [facility] d/t colon cancer metastasis to lung History of lung surgery wedge resection of left lung d/t cancer History of radioactive iodine thyroid ablation History of removal of cyst off finger History of tonsillectomy History of vascular access device x2--A port in place right side of chest History of ventral hernia repair History of wisdom tooth extraction Family History Mother , early 80s of thyroid cancer Thyroid cancer Heart disease Family history of reaction to anesthesia at age 80, took 2 days to wake after thyroidectomy Father , age 81 of gangrene complications No problems noted. Uncle Colorectal cancer Sister Family history of diabetes mellitus Sister Family history of diabetes mellitus Brother Myocardial infarction Other Family history non-contributory Denies family history of Ovarian cancer Prostate cancer Breast cancer Social History Smoking Status: Never smoker Second Hand Exposure: Yes (father smoked); Hx Alcohol Use: No Hx Substance Use: No Preferred Language: Mauritanian Communication Ability: Effective Visual Impairment: No Limitations Hearing Ability: Normal Test Technician Required: No Beliefs That Will Affect Care: None marital status: Current Living Situation: Spouse and Family Current Living Situation Comment: lives with and son in 1.5 story home with 1st floor set up current occupational status: retired 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 [employer] Other Information That Helps Us Care for You: No other: 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 [employer] Feels Safe at Home: Yes Safety Concerns: Feels Safe At This Time Childhood Exposure to Second-Hand Smoke: Yes caffeine: Yes (12 0z daily) during the past year weight has: remained stable Seatbelt Use: always Assistive Devices: Cane, Glasses, Oxygen - at Night, Walker and Wheelchair Review of Systems Review of Systems: All systems reviewed & are unremarkable except as noted in HPI & below Physical Exam Physical Exam: General: patient resting comfortably, NAD, non-toxic in appearance, AA&O x 4 Skin: warm, dry, intact, no rashes or lesions HEENT: NC/AT, PERRL, EOMI, anicteric sclera, conjunctiva without injection, external ear normal to inspection and nontender, nares patent, moist mucus membranes, dentition intact, no oropharyngeal lesions, neck supple, trachea midline, no LAD, no thyromegaly, no JVD Heart: +S1/S2, regular, no m/r/g Lungs: Absent breath sounds right lung, no rhonchi/wheezes Abd: +BS, soft, NT/ND, no masses/organomegaly/ascites Ext: warm, 2+ pulses in UE/LE bilaterally, no clubbing/cyanosis or edema Neuro: nonfocal, patient AA&O x 4, speech intact, no facial droop, moving all extremities on command with equal strength 5/5 Results & Data Results & Data ([facility]) Vital Signs (Past 12 Hours) Vital Signs Temp Pulse Pulse Resp BP BP Pulse Ox 10/31/22 22:13 100 H 18 124/66 99 10/31/22 20:39 101 H 18 98 10/31/22 19:39 36.9 C 105 H 20 151/88 H 90 10/31/22 19:19 36.9 C 105 H 18 151/88 H 87 L O2 Del Method O2 Flow Rate 10/31/22 22:13 Nasal Cannula 3 10/31/22 20:39 Room Air 10/31/22 19:39 Nasal Cannula 3 10/31/22 19:19 Room Air Laboratory Results Laboratory Results WBC 10.26 K/ul (4.8-10.8) 10/31/22 20:22 RBC 3.20 M/uL (3.93-5.22) L 10/31/22 20:22 Hgb 10.3 g/dl (12.0-16.0) L 10/31/22 20: Hct 33.6 % (34.1-44.9) L 10/31/22 20: MCV 105.0 fL (80.0-100.0) H 10/31/22 20: MCH 32.2 pg (25.0-34.0) 10/31/22 20: MCHC 30.7 g/dL (32.0-36.0) L 10/31/22: RDW Std Deviation 60.5 fL (36.4-46.3) H 10/31/22: RDW Coeff of Marcell 15.7 % (11.5-14.5) H 10/31/22 20: Plt Count 261 K/uL (130-400) 10/31/22: MPV 10.1 fL (9.4-12.3) 10/31/22 20: Immature Gran % (Auto) 0.5 % 10/31/22: Neut % (Auto) 79.4 % 10/31/22 20: Lymph % (Auto) 9.2 % 10/31/22 20:22 [place] % (Auto) 8.5 % 10/31/22 20:22 Eos % (Auto) 2.0 % 10/31/22: Baso % (Auto) 0.4 % 10/31/22: Neut # (Auto) 8.15 K/uL (1.4-6.5) H 10/31/22 20: Lymph # (Auto) 0.94 K/uL (1.2-3.4) L 10/31/22 20: [place] # (Auto) 0.87 K/uL (0.24-0.82) H 10/31/22 20: Eos # (Auto) 0.21 K/uL (0-0.50) 10/31/22 20:22 Baso # (Auto) 0.04 K/uL (0-0.2) 10/31/22 20:22 Immature Gran # (Auto) 0.05 K/uL (0.00-0.02) H 10/31/22 20:22 Sodium 137 mmol/L (136-145) 10/31/22 20:22 Potassium 4.0 mmol/L (3.5-5.1) 10/31/22 20: Chloride 97 mmol/L (98-107) L 10/31/22 20:22 Carbon Dioxide 34 mmol/L (21-32) H 10/31/22 20:22 Anion Gap 6 (3-11) 10/31/22 20: BUN 11 mg/dl (6-23) 10/31/22 20: Creatinine 0.91 mg/dl (0.6-1.2) 10/31/22 20: Est Cr Clr Drug Dosing 69.0 ml/min 10/31/22 20: Est GFR ( Amer) 74.1 ml/min 10/31/22 20: Est GFR (Non-Af Amer) 63.9 ml/min 10/31/22 20:22 BUN/Creatinine Ratio 12.1 (10-20) 10/31/22 20: Glucose 90 mg/dl (70-99(Fasting)) 10/31/22 20: Calcium 9.5 mg/dl (8.5-10.1) 10/31/22 20: Phosphorus 3.9 mg/dl (2.5-4.9) 10/31/22 20: Magnesium 1.9 mg/dl (1.7-2.4) 10/31/22 20:22 Total Bilirubin 0.4 mg/dl (0.2-1.0) 10/31/22 20: AST 28 U/L (13-39) 10/31/22 20: ALT 7 U/L (7-52) 10/31/22 20:22 Alkaline Phosphatase 94 U/L (34-104) 10/31/22 20:22 Troponin I High Sens 3.5 pg/ml (0-14) D 10/31/22 20:22 B-Natriuretic Peptide 51 pg/ml (0-100) 10/31/22 20:22 Total Protein 7.3 gm/dl (6.0-8.3) 10/31/22 20:22 Albumin 3.3 gm/dl (3.4-5.0) L 10/31/22 20:22 Globulin 4.0 gm/dl (2.5-4.0) 10/31/22 20:22 Albumin/Globulin Ratio 0.8 (0.9-2) L 10/31/22 20: Lipase 9 U/L (11-82) L 10/31/22 20:22 Adenovirus (PCR) Not Detected (NotDetected) 10/31/22 23:46 B. pertussis DNA (PCR) Not Detected (NotDetected) 10/31/22 23:46 B.parapertussis DNA PCR Not Detected (NotDetected) 10/31/22 23:46 C. pneumoniae DNA (PCR) Not Detected (NotDetected) 10/31/22 23:46 Coronavirus OC43 (PCR) Not Detected (NotDetected) 10/31/22 23:46 Coronavirus HKU1 (PCR) Not Detected (NotDetected) 10/31/22 23:46 Coronavirus 229E (PCR) Not Detected (NotDetected) 10/31/22 23:46 SARS-CoV-2 (PCR) Not Detected (NotDetected) 10/31/22 23:46 Coronavirus NL63 (PCR) Not Detected (NotDetected) 10/31/22 23:46 Human Metapneumovir PCR Not Detected (NotDetected) 10/31/22 23:46 Influenza Type A (PCR) Not Detected (NotDetected) 10/31/22 23:46 Influenza Type B (PCR) Not Detected (NotDetected) 10/31/22 23:46 M. pneumoniae (PCR) Not Detected (NotDetected) 10/31/22 23:46 Parainfluenza 1 (PCR) Not Detected (NotDetected) 10/31/22 23:46 Parainfluenza 2 (PCR) Not Detected (NotDetected) 10/31/22 23:46 Parainfluenza 3 (PCR) Not Detected (NotDetected) 10/31/22 23:46 Parainfluenza 4 (PCR) Not Detected (NotDetected) 10/31/22 23:46 RSV (PCR) Not Detected (NotDetected) 10/31/22 23:46 Entero/Rhino (PCR) Not Detected (NotDetected) 10/31/22 23:46 Code Status & VTE Plan VTE Prophylaxis Plan VTE Prophylaxis will be ordered: Yes PG Care Time/CCT Total # of Minutes Spent Total Time Spent with Patient: Total time spent is greater than 50% in coordination of care (as documented) at patient's floor/unit and/or counseling patient: Coding Level of Care Code 62494 Initial Inpt Care Lvl 3 Diagnoses Cough with hemoptysis R04.2 Metastatic colon cancer in female C18.9 COPD (chronic obstructive pulmonary disease) J44.9 History of DVT (deep vein thrombosis) Z86.718
[2022-11-01] MEDS ORDERED: ONDANSETRON INJ 2 MG/ML 2 ML VIAL IV PRN (03:09)
[2022-11-01] MEDS ORDERED: DIPHENOXYLATE/ATROPINE 2.5/0.025MG TAB PO PRN (03:09)
[2022-11-01] MEDS ORDERED: ALBUT/IPRATROP 3MG/0.5MG NEB 3 ML VIAL NEB PRN (03:09)
[2022-11-01] MEDS ORDERED: ALBUTEROL HFA 8 GM INHALER INH PRN (03:09)
[2022-11-01] MEDS ORDERED: Flu Vaccine-High Dose (Fluzone-HD) PF 65+ 0.7mL SYR IM ONE (04:45)
[2022-11-01] MEDS: LEVOTHYROXINE SODIUM 150 MCG TABLET PO SCH (06:06)
--- NOTE | 2022-11-01 07:42 | CT Scan Report ---
CT angio chest PE protocol CLINICAL HISTORY: Lung CA, r/o PE TECHNIQUE: Multidetector row helical CT of the chest was performed with angiographic protocol. Amaya l and sagittal reformations were obtained. Coronal and sagittal MIPS were obtained from the axial cirilo a set and were submitted for review. Automated dose lowering techniques and/or adjustment according to patient size were utilized for this exam. Comparison: Comparison is made to CT chest 10/11/2022 FINDINGS: Lungs and pleura: Right hilar mass and postobstructive atelectasis is again seen. Numerous pulmonary nodules are seen. Numerous pulmonary nodules are somewhat enlarged from prior exam including 17 mm no dule in the left lower lobe (series 4 image 93) which previously measured 12 mm, 10 mm nodule in the left upper lobe (image 141), 21 mm nodule in the left upper lobe (image 164) which previously measure d 16 mm. Heart and pericardium: Heart size is normal. No pericardial effusion. Vessels: The pulmonary trunk is enlarged measuring 31 mm. Mediastinum and dawna: Mediastinal bilateral hilar lymphadenopathy is seen. There is an 18 mm left hil ar node, as well as a subcarinal node measuring 36 x 29 mm, unchanged. Chest wall and lower neck: Subcentimeter axillary lymph nodes noted. A right port catheter is seen. Abdomen: For findings below the diaphragm, please refer to CT of the abdomen dated the same. Bones: Unremarkable. IMPRESSION: Redemonstration of a right hilar soft tissue mass and postobstructive collapse of the right lung. Num erous left-sided nodules are somewhat increased from prior exam. Stable mediastinal and hilar lymphad enopathy. No evidence of pulmonary embolus. ACT 112: Negative or not required by law. Electronically signed by: Jean Carlos Burns M.D. 11/01/2022 7:41 AM
[2022-11-01] MEDS: AMIODARONE 200 MG TAB PO SCH (07:47)
[2022-11-01] MEDS: PANTOprazole 40 MG TAB PO SCH (07:48)
--- NOTE | 2022-11-01 07:50 | CT Scan Report ---
CT abd pelvis IV con only CLINICAL HISTORY: n/v, lung cancer TECHNIQUE: Helical axial images of the abdomen and pelvis were obtained and displayed. Automated dose lowering techniques and/or adjustment according to patient size were utilized for this exam. This e xam was performed with intravenous contrast. CT DOSE: 1886.31 mGy.cm COMPARISON: Comparison is made to CT abdomen pelvis 10/11/2022 FINDINGS: Lower chest: For findings above the diaphragm, please see CT chest performed same day. Liver: Redemonstration of a right hepatic hypodensity measuring 26 mm, unchanged. Gallbladder and biliary tree: Patient is status post cholecystectomy. Physiologic prominence of the b iliary ducts is noted. Pancreas: Unremarkable, no focal lesions. Spleen: Calcifications are noted in the spleen compatible with prior granulomatous disease. Adrenals: Parapelvic cysts are seen. Nonobstructive stones are seen. Kidneys and ureters: Unremarkable. Bladder: Unremarkable. Reproductive organs: Patient is status post hysterectomy. Bowel: Patient is status post appendectomy. A hiatal hernia is seen. Lymph nodes Retroperitoneal: Unremarkable. Pelvic: Unremarkable. Mesenteric: Unremarkable. Peritoneum: Normal. Vessels: Unremarkable. Abdominal wall: Postsurgical changes of hernia repair are seen. Bones: Bone hemangiomas are seen. IMPRESSION: No acute abnormalities. Redemonstration of hepatic lesion compatible with metastatic disease, and is unchanged from prior exam although it has gradually increased from exam of July 2022. ACT 112: Negative or not required by law. Electronically signed by: Jean Carlos Burns M.D. 11/01/2022 7:47 AM
--- NOTE | 2022-11-01 10:35 | XRay Report ---
XR chest 1V portable CLINICAL HISTORY: Atypical chest pain. COMPARISON STUDY: Chest CT October 11, 2022. FINDINGS: Right internal jugular [id number] is in place. Postoperative findings within the right h emithorax are present. Right lung collapse is again noted. Multiple left lung nodules are similar to prior exam. No evidence for pulmonary edema within the left lung. There is no pneumothorax. IMPRESSION: No significant change in appearance of the chest. Right lung collapse with multiple left lung nodules suggestive of metastatic disease. ACT 112: Negative or not required by law. Electronically signed by: Darron Price M.D. 11/01/2022 10:33 AM
--- NOTE | 2022-11-01 10:48 | Pulmonary Consultation ---
Date of Consultation November 01, 2022 Assessment & Plan (1) Hemoptysis: It appears that her hemoptysis has improved today. He has completed right lung collapse with impingement of the pulmonary artery. Her hemoglobin is stable. Should her hemoptysis recur, would recommend nebulized TXA. I would defer [facility] hoscopic evaluation at this time given the disease burden and likely lack of benefit from bronchoscopy. Debulking procedures such as cryoablation or APC via bronchoscopic means can be considered at a tertiary center such as [place]. (2) Collapse of right lung: Secondary to malignancy. (3) Metastatic colon cancer in female: I touch base with Dr. Weaver who notes that he is available by phone and will see her in person tomorrow. I appreciate his input. Recommend palliative care consultation while inpatient. Plan Thank you for the consultation. Please call with questions. History of Present Illness Reason for Consultation: Hemoptysis. Attending Physician: Farzaneh Kinney MD History of Present Illness 72-year-old female with history of metastatic colorectal carcinoma to the right lung with complete collapse of the right lung noted on CT from September. She comes back due to recurring hemoptysis and shortness of breath. She was seen by my colleague last month, Dr. Hawthorne. He did not feel that bronchoscopy would be beneficial given the extent of disease burden. I had a discussion with her oncologist, Dr. Weaver who indicated that he will see her tomorrow. Her disease has been resistant to numerous oncological regimens and unfortunately she continues to have progressive metastatic disease. Patient notes that she saw [facility] oncology last week as an outpatient who indicated that they would want to start her on immunotherapy. Patient denies any hemoptysis today. She notes that the last bout of hemoptysis was 3:30 AM. She is coughing up nickel sized spots of bright red blood. She was on Eliquis for history of DVT. She is currently saturating well on room air. Denies any obvious complaints. Allergies Allergy/AdvReac Type Severity Reaction Status Date / Time diphtheria,pertussis Allergy Severe "Arm Verified 11/01/22 01:26 (acellular),te swelled [From Adacel(Tdap up," fever Adolesn/Adult)(PF)] irinotecan Allergy Severe perforations Verified 11/01/22 01:26 in bowel oxaliplatin Allergy Severe Anaphylaxis Verified 11/01/22 01:26 thiopental Allergy Intermediate INCREASED Verified 11/01/22 01:26 BLEEDING WITH WISDOM TEETH SURG anastrozole [From Arimidex] AdvReac Severe CAUSED Verified 11/01/22 01:26 INTERNAL BLEEDING meperidine AdvReac Mild N/V Verified 11/01/22 01:26 morphine AdvReac Mild N/V Verified 11/01/22 01:26 Home Medications Medication Instructions Recorded Confirmed Type albuterol sulfate 90 mcg/actuation 2 puff inhalation Q6 PRN Shortness 08/07/18 11/01/22 History aerosol inhaler Of Breath Or Wheezing multivitamin 1 tab PO QAM 08/07/18 11/01/22 History ascorbic acid (vitamin C) 500 mg 500 mg PO BIDM 11/02/19 11/01/22 History tablet (Vitamin C) pyridoxine (vitamin B6) 100 mg 100 mg PO QDL 10/12/20 11/01/22 History tablet (Vitamin B-6) cyanocobalamin (vitamin B-12) 1,000 mcg PO DAILY 01/07/21 11/01/22 History 1,000 mcg tablet (Vitamin B-12) ferrous sulfate 325 mg (65 mg 325 mg PO DAILY #60 tabs 01/04/22 11/01/22 Rx iron) tablet simvastatin 20 mg tablet 20 mg PO QPM #90 tabs 01/26/22 11/01/22 Rx colestipol 1 gram tablet (Colestid) 1 g PO DAILY #90 tabs 05/06/22 11/01/22 Rx amiodarone 200 mg tablet 200 mg PO DAILY #90 tabs 06/28/22 11/01/22 Rx sertraline 50 mg tablet 50 mg PO HS #90 tabs 07/02/22 11/01/22 Rx apixaban 5 mg tablet (Eliquis) 5 mg PO BID #180 tabs 07/08/22 11/01/22 Rx ipratropium 0.5 mg-albuterol 3 mg 3 ml inhalation Q4H PRN Shortness 08/05/22 11/01/22 Rx (2.5 mg base)/3 mL nebulization Of Breath Or Wheezing #540 mL soln vitamin E (dl, acetate) 180 mg 180 mg PO DAILY 08/28/22 11/01/22 History (400 unit) capsule omeprazole 40 mg capsule,delayed 40 mg PO QAM #90 caps 08/31/22 11/01/22 Rx release ondansetron 8 mg disintegrating 8 mg translingual Q8 PRN Nausea 09/07/22 11/01/22 History tablet Magic Mouthwash 300 mL mouthwash 10 ml mucous membrane .Q3-4 hr PRN 09/23/22 11/01/22 History sore mouth #300 mL cholecalciferol (vitamin D3) 25 25 mcg PO DAILY 09/23/22 11/01/22 History mcg (1,000 unit) capsule diphenoxylate-atropine 2.5 2 tab PO .Q6-8 hr PRN Diarrhea 09/23/22 11/01/22 History mg-0.025 mg tablet (Lomotil) eipavibgcuj-rsonswmbq-fym C-Mn 500 1 cap PO WE 09/23/22 11/01/22 History mg-400 mg capsule (Glucosamine Chondroitin Maximum Strength) levothyroxine 150 mcg capsule 150 mcg PO DAILY 09/23/22 11/01/22 History magnesium oxide 400 mg PO BID 09/23/22 11/01/22 History potassium chloride 20 mEq 20 meq PO BID 09/23/22 11/01/22 History tablet,extended release prednisolone acetate 1 % eye 1 drp ophthalmic (eye) DAILY 09/23/22 11/01/22 History drops,suspension prochlorperazine maleate 10 mg 10 mg PO Q6H PRN Nausea 09/23/22 11/01/22 History tablet (Compazine) valacyclovir 1 gram tablet 1,000 mg PO DAILY PRN .breakouts 09/23/22 11/01/22 History Patient History Medical History (Updated 11/01/22 @ 10:45 by Jeffrey Sotelo MD) Abnormal CT scan of lung Acute GI bleeding Anemia Antineoplastic chemotherapy induced pancytopenia Asthma Atelectasis of right lung Bacteremia Bilateral pulmonary embolism hx of 2012--reason for eliquis daily (had pneumonia right before and pt states she was not moving much) Candidiasis of intestine Chemotherapy adverse reaction Chronic diastolic congestive heart failure Chronic respiratory failure with hypoxia Colon cancer metastasized to lung (09/18/08) Depression Diverticulosis of colon DVT, lower extremity left leg, same time as PE Elevated diaphragm Elevated lactic acid level Essential hypertension GERD (gastroesophageal reflux disease) GI bleed Gross hematuria Hemoptysis History of anesthesia reaction difficulty waking at times as well as hx of waking up during sx (woke up during port placement) History of chemotherapy History of gastric ulcer History of immunocompromised state History of pulmonary embolism History of pulmonary embolus (PE) History of radiation therapy Hypercholesterolemia Hyperlipidemia Hypertension Hypothyroidism Hypothyroidism Hypoxia Infection due to Port-A-Cath Iron deficiency anemia Morbid obesity with BMI of 40.0-44.9, adult Multiple pulmonary nodules Neutropenia On anticoagulant therapy eliquis daily On home oxygen therapy 2L N/C at hs VU (obstructive sleep apnea) Osteoarthritis Port-A-Cath in place Pulmonary mass Radiation pneumonitis Restrictive lung disease Seizures due to metabolic disorder x2-- one d/t medication anaphylaxis, and pt states second d/t low magnesium in 09/2019 Septicemia due to coagulase-negative staphylococcal infection Tachycardia Weakness Surgical History H/O: hysterectomy History of bilateral tubal ligation History of bladder suspension procedure History of bronchoscopy x2-3 History of cholecystectomy open 04/2020 History of colon surgery d/t colon cancer History of colonoscopy with polypectomy History of esophagogastroduodenoscopy (EGD) History of lobectomy of lung right upper lobe removed 06/2008 @ [facility] d/t colon cancer metastasis to lung History of lung surgery wedge resection of left lung d/t cancer History of radioactive iodine thyroid ablation History of removal of cyst off finger History of tonsillectomy History of vascular access device x2--A port in place right side of chest History of ventral hernia repair History of wisdom tooth extraction Status post cholecystectomy Family History Mother , early 80s of thyroid cancer Thyroid cancer Heart disease Family history of reaction to anesthesia at age 80, took 2 days to wake after thyroidectomy Father , age 81 of gangrene complications No problems noted. Uncle Colorectal cancer Sister Family history of diabetes mellitus Sister Family history of diabetes mellitus Brother Myocardial infarction Other Family history non-contributory Denies family history of Ovarian cancer Prostate cancer Breast cancer Social History Smoking Status: Never smoker Second Hand Exposure: Yes (father smoked); Hx Alcohol Use: No Hx Substance Use: No Preferred Language: Malawian Communication Ability: Effective Visual Impairment: No Limitations Hearing Ability: Normal Loan Review Analyst Required: No Beliefs That Will Affect Care: None marital status: Current Living Situation: Spouse and Family Current Living Situation Comment: lives with and son in 1.5 story home with 1st floor set up current occupational status: retired 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[employer] ([place] Other Information That Helps Us Care for You: No other: 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 No wheezes. CVS: S1-S2 positive, no murmurs or gallops, right-sided Port-A-Cath Abdomen: Soft, nontender, nondistended, positive bowel sounds x4, obese Extremities: +2 pulses bilaterally radialis/ dorsalis pedis, no cyanosis, no edema Neuro: Awake alert oriented x3 Psych: Normal mood and affect G/U: No Banks Skin: no rashes, warm and dry Lymphatic: no cervical or axillary lymphadenopathy Results & Data Results & Data ([facility]) Vital Signs (Past 12 Hours) Vital Signs Temp Pulse Pulse Pulse Resp BP BP 11/01/22 07:36 36.7 C 90 20 114/74 11/01/22 07:01 36.7 C 92 H 16 112/70 11/01/22 03:10 11/01/22 03:10 36.8 C 100 H 18 135/82 11/01/22 02:45 88 18 132/84 Pulse Ox O2 Del Method O2 Flow Rate 11/01/22 07:36 100 Room Air 11/01/22 07:01 Nasal Cannula 3 11/01/22 03:10 Nasal Cannula 3 11/01/22 03:10 94 Nasal Cannula 3 11/01/22 02:45 96 Nasal Cannula 2 PG Care Time/CCT Total # of Minutes Spent Total Time Spent with Patient: Total time spent is greater than 50% in coordination of care (as documented) at patient's floor/unit and/or counseling patient: Coding Level of Care Code 47711 Initial Inpt Care Lvl 3 Diagnoses Hemoptysis R04.2 Collapse of right lung J98.11 Metastatic colon cancer in female C18.9
--- NOTE | 2022-11-01 10:55 | Palliative Care Consultation ---
Date of Consultation November 01, 2022 Assessment & Plan (1) Palliative care encounter: Introduced myself to patient and reviewed the purpose/aim of palliative medicine consultation for advanced cancer patients. We discussed the strong evidence supporting the initiation of Palliative Care into the management of this patient with advanced met lung cancer; palliative care, when provided alongside oncologic care, leads to improved QOL, fewer depressive symptoms, better prognosis understanding and longer median survival ayala when given the overall poor prognosis and QOL issues at hand. (Yesy et al. (2010). Early palliative care for patients with metastatic qcx-qgeip-nurj lung cancer. [facility] Med 363(5), 733-742. Doi: [id number]/[id number].) We discussed that cancer patients experience significant symptom and psychosocial burden for which the early integration of supportive oncology with palliative medicine (early findings from the research of Yesy and Roger) help address a growing need to manage patients comprehensively, with an emphasis on symptom control, nutritional and psychosocial support, and pharmaceutical review. Palliative care consultation in patients with advanced cancer is not only associated with an improvement in the quality of oncology care, but also a reduction in downstream healthcare utilization. In Nate et al 2017, when the automatic palliative medicine consult was triggered by specific oncology criteria, 30-day readmission rates and use of chemotherapy after discharge declined, whereas hospice referrals and uptake of support services post- discharge increased. Patients with advanced cancer admitted to an acute care hospital often have short life expectancies and high morbidity - for these patients, the integration of palliative care has improved symptom burden, reduced patient and caregiver distress, increased referral to hospice, and improved outcomes. Pt has a met colon ca with progression on therapy, refractory to standard agents: 5-fluorouracil, oxaliplatin, irinotecan, cetuximab, panitumumab, bevacizumab. Pt states she was very surprised to be told that there were no other therapies that would be helpful at this time. She has for the last 14 years pursued any + all cancer directed therapies. She admits that she avoided conversation about "what to do if things did not work out." She has been living with her cancer since 2007. Marie and I spoke about her goals, priority is given to essentially not being ready to "quit" or . We explored her understanding of her cancer: she knows it is not curable but she has for the past 14 years experienced the benefits of disease control. She is very tearful as she recounts her conversation with her provider at [facility]: Chemotherapy will no longer help, there will be no further plans for chemotherapy in the setting of this progressive disease which is felt to be terminal. They recommended a strong focus on quality of life with strong symptom management. They recommended engagement with palliative care at that time. She admits that her is very insistent on pursuing chemotherapy. She also notes that sometimes she has agreed to continue chemotherapy at his insistence because he has been very forceful in his opinion. Marie and I spoke about how patients face difficult decisions about chemotherapy with advanced illness or nearing end of life. Such treatment might prolong survival or reduce symptoms but cause adverse effects, prevent the patient from engaging in meaningful life review and preparing for , and preclude entry into hospice. We spent some time discussing what Marie would want at this junction. She replied that if it was felt there was nothing else that was truly going to help her feel better and she would want to be home and make the most of that time with her family. She does not want to in the hospital. She does not want to be in a senior care or facility away from home. She lives in a private residence that she shares with her and her son who lives on the top floor of the home. She reports they both help take care of her. I advised her palliative care and oncology clinicians are logical partners in caring for patients with serious cancers for which symptom control, medically appropriate goal setting, and communication are paramount. Although palliative chemotherapy is used to improve QOL near (QOD) for patients with end-stage cancer, its use does not improve QOD for patients with moderate or poor performance status and worsens QOD for patients with good performance status. We spoke about how she is now in this category with a moderately poor performance status which I anticipate would worsen with continued chemotherapy at this junction. We discussed how the QOD in patients with end-stage cancer is not improved, and can be harmed, by chemotherapy use near , even in patients with good performance status: for patients with moderate and poor (ECOG >2-3) performance status, chemotherapy use was not associated with quality of life improvement near . (Alberto CORONEL, Oleksandr TJ. The role of chemotherapy at the end of life: "when is enough, enough?". RC. 2008;299(07):0228-3240. Doi:10.1001/rc.299.22.2667) (2) Advanced care planning/counseling discussion: At patient's request, discussion was held with patient and her daughter Sandra by phone [phone] to determine the Goals of Care (GOC). Together we spent 24 minutes in this advance care planning discussion as identified below: Patient identifies her daughter as a nurse who currently lives and works in the [facility] [address]. Sandra notes that she would be happy to attend any family meeting needed in person but would need at least a 5-hour heads up to allow her to make accommodations for her childcare needs and travel to the hospital. She is otherwise available anytime by phone. We reviewed the following 5 questions advance care planning approach with patient and her daughter. The following Five Questions were asked to allow everybody to understand what the goal really is - what is our patient "fighting" for, i.e., its for a life that contains certain things: 1. What is your understanding of where you are and of your illness?Marie understands that she has a terminal cancer. She states she has understood this from the time of her initial diagnosis. She knew from the beginning she did not have a curable cancer but the therapies through the years have done a very good job of offering her control of her cancer and because of this, she has had 14 years of life that perhaps she would not of had a she had not pursued aggressive cancer directed therapies. 2. Your fears or worries for the future:Marie is fearful of dying. She admits that she does not know what to expect. She is able to identify that she wants to be home and not in the hospital or senior care setting. She also worries that her family will not be able to provide her the care she needs at home. She states that her daughter is a nurse who lives near [place]. Her and her son are at home with her here in the [facility], however, they are both limited in their understanding of cancer at a late stage and continue to insist if not and and the patient continue further chemotherapy. She admits very openly that her has often pushed her to continue more chemo and has made it clear at this time as well he expects her to have more chemotherapy and expects that providers will be able to find something to give her even though she is feeling weaker and less able to tolerate these therapies. 3. Your goals and priorities:She would like to have some improvement in the management of her nausea. She would like a family meeting to discuss her options at this point as she is not sure that she wants to pursue chemotherapy at this and stage of disease. 4. What outcomes are unacceptable to you? What are you willing to sacrifice and not?:She does not want to in the hospital or on machines. To this end she has selected a DNR/DNI CODE STATUS which is in alignment with her expressed wishes. She does not want to start a therapy that will cause significant harm or complications and may ultimately lead to an earlier . She would rather have more time with her family even if that is time spent not on chemotherapy. 5. As your disease progresses and your life begins to change even more, what would a good day look like? Marie identifies time with family in the moments they share is the most meaningful things in her life. Code Status reviewed: patient has elected DNR/DNI. She questioned if this was appropriate and I reviewed the following information regarding CPR survival: Only about 10% of patients who have soc-dv-qmzrepdl sudden cardiac arrest survive to hospital discharge, with many survivors having neurologic impairment. This rate is even lower among patients with serious coexisting conditions, ie chance of survival to hospital discharge for in-hospital CPR in older people is low to moderate (15%) and decreases with age, comorbidities, performance status and frailty: for pts > 70 yo, more than half of the patients who initially survived resuscitation in the hospital before hospital discharge. The pooled survival to discharge after in-hospital CPR was 18% for patients between 70 and 79 years old, 15% for patients between 80 and 89 years old and 11% for patients of 90 years and older. (Emeterio PRIDEY, Jake LJ, Angela F, et al. Trends in short- and long-term survival among gja-xc-zwaehuim cardiac arrest patients alive at hospital arrival. Circulation 2014;130:7494-4698. AND Bhupinder C, Arvind T, Temo R, et al. Performance of clinical risk scores to predict mortality and neurological outcome in cardiac arrest patients. Resuscitation 2019;136:21-29.)We discussed that cancer patients experience significant symptom and psychosocial burden for which the early integration of supportive oncology with palliative medicine (early findings from the research of Isai) help address a growing need to manage patients comprehensively, with an emphasis on symptom control, nutritional and psychosocial support, and pharmaceutical review. Palliative care consultation in patients with advanced cancer is not only associated with an improvement in the quality of oncology care, but also a reduction in downstream healthcare utilization. In Nate et al 2017, when the automatic palliative medicine consult was triggered by specific oncology criteria, 30-day readmission rates and use of chemotherapy after discharge declined, whereas hospice referrals and uptake of support services post- discharge increased. Patients with advanced cancer admitted to an acute care hospital often have short life expectancies and high morbidity - for these patients, the integration of palliative care has improved symptom burden, reduced patient and caregiver distress, increased referral to hospice, and improved outcomes. (3) Cancer related pain: For now she has been using a regimen of Tylenol or Aleve which she feels is providing adequate relief. She does not want any changes to her pain management (4) Weakness generalized: We discussed using web based resources for gentle exercises: https://www.lung.org/help-support/education-programs https://lungSwopboardtitDraker.[employer]/blog/dqcto-xicc-haz-deeper-breathing/ https://www.[employer]/lung/copd/ss/oufcrmdhn-cdab-gzatkegay https://my.[facility].org/health/articles/0962-ryqy-etyrkeea--activity-guid gianna Https://www.youAITube.com/watch?v=CftDKhKRtw8 https://www.[facility].com/copd-photos/mqtp-mvdevshil-urc-copd-patients.aspx [place]: www.lung.org http://www.lung.org/ (5) Metastatic colon cancer in female: Stage IV adv met colon ca (6) Collapse of right lung: Metastatic invasion of lung. (7) Nausea & vomiting: She is currently receiving Zofran without any relief. I will start a trial of olanzapine ODT 5mg BID while she is in the hospital to see if this better assess and management of her nausea. Olanzapine is a second-generation atypical antipsychotic that has shown off- label efficacy for the treatment of nausea, delirium, anxiety, insomnia, and cachexia in adults. n addition to antagonizing dopamine receptors in the CUTTER INSPECTOR (nausea, delirium), it blocks serotonin (5HT2) receptors (insomnia, anxiety, cachexia) and is anticholinergic. When compared to other antipsychotics, olanzapine causes fewer extrapyramidal symptoms and has lesser effect on the QTc interval compared to IV haloperidol, but it may have a higher prevalence of somnolence and weight gain. advanced cancer patients receiving olanzapine at doses between 2.5 to 10 mg had a significant improvement in quality of life and a decrease in nausea compared to baseline; olanzapine has been studied for use in cachexia related to chronic illnesses like cancer. Improvements have been seen in weight gain and appetite stimulation when olanzapine 5 mg/day was added to megestrol acetate therapy. Plan * Patient and her daughter would like a family meeting when Dr. Colon is available to discuss the options, there are likely outcomes and plan of care. Patient is clear with me and daughter today that if additional cancer directed therapies are truly not going to offer a meaningful benefit or if there are side effects/toxicity profile risks would put her at a higher than average risk of complications and/or mortality then choosing a path of quality of life, comfort focus instead she would not wish to pursue a riskier regimen. Daughter is very clear that patient's has been forcefully insisting on continued chemotherapy even though patient herself has voiced in the past she is not sure that this is the right thing to do anymore. Daughter is concerned that will again push patient into chemotherapy and patient states that she has been fearful of this as well. They both indicate that patient's and son are both very forceful and these demands that she continue chemotherapy though their understanding and insight into her disease process, its status and overall prognosis remain poor. Daughter also shares that and son are often at odds with each other which is another source of anxiety and worry for patient. She has often been the buffer between her and her son. Daughter notes that it is sometimes best to approach discussions with and son with more of a limited options perspective i.e. "given her terminal cancer, at this stage this is what we can offer." * I have updated the primary team and medical oncology. Dr. Colon is available tomorrow at 5:30 PM for a family meeting with patient at the bedside and he is happy to call daughter on her phone to be present as well. History of Present Illness Reason for Consultation: "met lung ca" Requesting Physician: Keenan Chandra PA-C Attending Physician: Farzaneh Kinney MD History of Present Illness Marie Bee is a 72yo female with met colon ca, mets to lungs. Oncology Hx: Multiply recurrent colon cancer particularly affecting the right lung which is proving refractory to our standard agents (5-fluorouracil, oxaliplatin, irinotecan, cetuximab, panitumumab, bevacizumab). Oncology noted "there are some additional "standard" options such as Lonsurf and regorafenib as well as possible ramucirumab/irinotecan combination or revisiting fluoropyrimidines as capecitabine with or without bevacizumab. It is not likely that any of these options, however, would offer her a dramatic and durable benefit and would certainly be concerning for exacerbated toxicity in face of her poor performance status." Followed by Med Onc/Dr Weaver whose consult note summarized: "Pt was initially diagnosed with met colon ca in 2007 (circumferential tumor of the colon distal to the splenic flexure and concomitant right hilar mass, +metastatic colon ca.) +additional metastatic hilar adenopathy at the time of presentation. She has sequentially been through treatments with FOLFOX and cetuximab, radiation, irinotecan and cetuximab, rechallenge with FOLFOX, 5-FU/leucovorin/bevacizumab, and then most recently irinotecan and panitumumab. Despite this she has unfortunately had disease progression to the point of near complete obstruction of the right lung bronchial structure and a previous admission for white out of the right lung. She has stabilized somewhat and we have been recently seeking alternative options with pending Caris testing for any noncytotoxic options to further explore, anticipation of a visit with [facility] for possible investigational choices, and a radiation oncology visit as an outpatient which did identify the potential for some additional radiation to the lung though in an already irradiated field the ability to significantly impact upon respiratory status was uncertain. Pulmonary medicine has evaluated her both during her last admission and then again with this admission and do not feel that the stent would be practically useful." Another note from Dr Weaver 10/14/22 notes the following: "Colon cancer metastasized to lung: Plan: Caris testing is underway and may be an important part of determining her treatment options. Her current status strongly suggests against resuming immediate cytotoxic regimens which constitute the bulk of our "standard" options given concern that there might be moderate efficacy at best if that and certainly could be specific hematopoietic and more general toxicity. Radiation could be a stopgap and as her immediate situation more completely stabilizes we should reengage with that team about short-term options. Pure palliative care would be an important consideration but she is not as yet willing to forego additional specific treatment." We have been asked to see pt to assist with ongoing GOC discussions. Imaging confirms a complete right lung collapse with impingement of the p ulmonary artery. She has had no further hemoptysis since admission however she was seen by pulmonary medicine was consult note indicates that should she have recurrent hemoptysis they recommend nebulized TXA. Bronchoscopic evaluation at this time was deferred given her disease burden and there is no significant benefit expected from bronchoscopy. Debulking procedures such as a cryoablation or APC via bronchoscopy would require transfer to a tertiary center such as [facility]. The collapse of her light lung is noted to be related to her malignancy. Patient is seen at bedside, there is no family present. She tells me that she has been struggling with nausea for a few weeks leading up to this admission. The nausea is present all the time and has not improved despite a few medication trials. Her appetite is low. She does not often feel hungry. She is sleeping or resting nearly 80% of the day, whenever she naps she tries to wear her CPAP. She has some issues with ambulation and requires assistance with her mobility even short distances such as from the living room 20 feet down the verduzco to her bathroom. She then also needs assistance getting up from the commode as her strength has declined. She notes with a certain amount of sadness that she was told by her [facility] oncology team there were no further chemotherapeutic options available for cancer and it has reached its terminal stages. She also adds that she was aware from the beginning she had an incurable cancer but had had so many trials of therapy through the last 12 years that "I just figured there to always be something they could give me." Allergies Allergy/AdvReac Type Severity Reaction Status Date / Time diphtheria,pertussis Allergy Severe "Arm Verified 11/01/22 01:26 (acellular),te swelled [From Adacel(Tdap up," fever Adolesn/Adult)(PF)] irinotecan Allergy Severe perforations Verified 11/01/22 01:26 in bowel oxaliplatin Allergy Severe Anaphylaxis Verified 11/01/22 01:26 thiopental Allergy Intermediate INCREASED Verified 11/01/22 01:26 BLEEDING WITH WISDOM TEETH SURG anastrozole [From Arimidex] AdvReac Severe CAUSED Verified 11/01/22 01:26 INTERNAL BLEEDING meperidine AdvReac Mild N/V Verified 11/01/22 01:26 morphine AdvReac Mild N/V Verified 11/01/22 01:26 Home Medications Medication Instructions Recorded Confirmed Type albuterol sulfate 90 mcg/actuation 2 puff inhalation Q6 PRN Shortness 08/07/18 11/01/22 History aerosol inhaler Of Breath Or Wheezing multivitamin 1 tab PO QAM 08/07/18 11/01/22 History ascorbic acid (vitamin C) 500 mg 500 mg PO BIDM 11/02/19 11/01/22 History tablet (Vitamin C) pyridoxine (vitamin B6) 100 mg 100 mg PO QDL 10/12/20 11/01/22 History tablet (Vitamin B-6) cyanocobalamin (vitamin B-12) 1,000 mcg PO DAILY 01/07/21 11/01/22 History 1,000 mcg tablet (Vitamin B-12) ferrous sulfate 325 mg (65 mg 325 mg PO DAILY #60 tabs 01/04/22 11/01/22 Rx iron) tablet simvastatin 20 mg tablet 20 mg PO QPM #90 tabs 01/26/22 11/01/22 Rx colestipol 1 gram tablet (Colestid) 1 g PO DAILY #90 tabs 05/06/22 11/01/22 Rx amiodarone 200 mg tablet 200 mg PO DAILY #90 tabs 06/28/22 11/01/22 Rx sertraline 50 mg tablet 50 mg PO HS #90 tabs 07/02/22 11/01/22 Rx apixaban 5 mg tablet (Eliquis) 5 mg PO BID #180 tabs 07/08/22 11/01/22 Rx ipratropium 0.5 mg-albuterol 3 mg 3 ml inhalation Q4H PRN Shortness 08/05/22 11/01/22 Rx (2.5 mg base)/3 mL nebulization Of Breath Or Wheezing #540 mL soln vitamin E (dl, acetate) 180 mg 180 mg PO DAILY 08/28/22 11/01/22 History (400 unit) capsule omeprazole 40 mg capsule,delayed 40 mg PO QAM #90 caps 08/31/22 11/01/22 Rx release ondansetron 8 mg disintegrating 8 mg translingual Q8 PRN Nausea 09/07/22 11/01/22 History tablet Magic Mouthwash 300 mL mouthwash 10 ml mucous membrane .Q3-4 hr PRN 09/23/22 11/01/22 History sore mouth #300 mL cholecalciferol (vitamin D3) 25 25 mcg PO DAILY 09/23/22 11/01/22 History mcg (1,000 unit) capsule diphenoxylate-atropine 2.5 2 tab PO .Q6-8 hr PRN Diarrhea 09/23/22 11/01/22 History mg-0.025 mg tablet (Lomotil) msnztzbeivk-ivearvkuf-fch C-Mn 500 1 cap PO WE 09/23/22 11/01/22 History mg-400 mg capsule (Glucosamine Chondroitin Maximum Strength) levothyroxine 150 mcg capsule 150 mcg PO DAILY 09/23/22 11/01/22 History magnesium oxide 400 mg PO BID 09/23/22 11/01/22 History potassium chloride 20 mEq 20 meq PO BID 09/23/22 11/01/22 History tablet,extended release prednisolone acetate 1 % eye 1 drp ophthalmic (eye) DAILY 09/23/22 11/01/22 History drops,suspension prochlorperazine maleate 10 mg 10 mg PO Q6H PRN Nausea 09/23/22 11/01/22 History tablet (Compazine) valacyclovir 1 gram tablet 1,000 mg PO DAILY PRN .breakouts 09/23/22 11/01/22 History Patient History Medical History (Updated 11/01/22 @ 11:06 by Hawa Hanks, PAYAM) Abnormal CT scan of lung Acute GI bleeding Anemia Antineoplastic chemotherapy induced pancytopenia Asthma Atelectasis of right lung Bacteremia Bilateral pulmonary embolism hx of 2012--reason for eliquis daily (had pneumonia right before and pt states she was not moving much) Candidiasis of intestine Chemotherapy adverse reaction Chronic diastolic congestive heart failure Chronic respiratory failure with hypoxia Colon cancer metastasized to lung (09/18/08) Depression Diverticulosis of colon DVT, lower extremity left leg, same time as PE Elevated diaphragm Elevated lactic acid level Essential hypertension GERD (gastroesophageal reflux disease) GI bleed Gross hematuria Hemoptysis History of anesthesia reaction difficulty waking at times as well as hx of waking up during sx (woke up during port placement) History of chemotherapy History of gastric ulcer History of immunocompromised state History of pulmonary embolism History of pulmonary embolus (PE) History of radiation therapy Hypercholesterolemia Hyperlipidemia Hypertension Hypothyroidism Hypothyroidism Hypoxia Infection due to Port-A-Cath Iron deficiency anemia Morbid obesity with BMI of 40.0-44.9, adult Multiple pulmonary nodules Neutropenia On anticoagulant therapy eliquis daily On home oxygen therapy 2L N/C at hs VU (obstructive sleep apnea) Osteoarthritis Port-A-Cath in place Pulmonary mass Radiation pneumonitis Restrictive lung disease Seizures due to metabolic disorder x2-- one d/t medication anaphylaxis, and pt states second d/t low magnesium in 09/2019 Septicemia due to coagulase-negative staphylococcal infection Tachycardia Weakness Surgical History H/O: hysterectomy History of bilateral tubal ligation History of bladder suspension procedure History of bronchoscopy x2-3 History of cholecystectomy open 04/2020 History of colon surgery d/t colon cancer History of colonoscopy with polypectomy History of esophagogastroduodenoscopy (EGD) History of lobectomy of lung right upper lobe removed 06/2008 @ [facility] d/t colon cancer metastasis to lung History of lung surgery wedge resection of left lung d/t cancer History of radioactive iodine thyroid ablation History of removal of cyst off finger History of tonsillectomy History of vascular access device x2--A port in place right side of chest History of ventral hernia repair History of wisdom tooth extraction Status post cholecystectomy Family History Mother , early 80s of thyroid cancer Thyroid cancer Heart disease Family history of reaction to anesthesia at age 80, took 2 days to wake after thyroidectomy Father , age 81 of gangrene complications No problems noted. 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 Beliefs That Will Affect Care: None marital status: / Current Living Situation: Spouse and Family Current Living Situation Comment: lives with and son in 1.5 story home with 1st floor set up current occupational status: retired 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 [employer] How many Children do You have: 1 Other Information That Helps Us Care for You: No other: 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 There are some bitemporal wasting noted. Pupils are equal, round and reactive to light. Extraocular movements are intact. Dentition is poor, there is some caries and gingival issues noted. Mucosa is slightly dry. Speech is clear and not garbled. Neck is supple and there is no stridor or thyromegaly noted. Respiratory effort is normal at rest. Lungs are diminished left < right, there are scattered rhonchi, right mid to base is very diminished. Bilateral crackles noted at times. She has a weak bronchitic cough intermittently. Heart tones are S1-S2, I did not appreciate a murmur. There is no appreciable JVD. Abdomen is soft, obese, bowel sounds are present throughout. There is no tenderness to my palpation. There is generalized weakness noted bilaterally. She is awake alert and oriented x3. Her skin is pale and warm to touch. There is no mottling noted. I did not appreciate any clubbing, cyanosis or edema. Results & Data ([facility]) Vital Signs (Past 12 Hours) Vital Signs Temp Pulse Pulse Pulse Resp BP BP 11/01/22 07:36 36.7 C 90 20 114/74 11/01/22 07:01 36.7 C 92 H 16 112/70 11/01/22 03:10 11/01/22 03:10 36.8 C 100 H 18 135/82 11/01/22 02:45 88 18 132/84 Pulse Ox O2 Del Method O2 Flow Rate 11/01/22 07:36 100 Room Air 11/01/22 07:01 Nasal Cannula 3 11/01/22 03:10 Nasal Cannula 3 11/01/22 03:10 94 Nasal Cannula 3 11/01/22 02:45 96 Nasal Cannula 2 Laboratory Results Labs were reviewed Diagnostic Findings 10/11/2022, CT abdomen pelvis: There is progression of the hepatic, pulmonary and juan metastatic disease since July 2022. There is mild distention of the colon with a decompressed distal sigmoid colon and rectum which may represent colonic ileus. 10/11/2022, CT chest: Progression of metastatic disease since September 08, 2022 CT. There is increase in the mediastinal and bilateral hilar lymphadenopathy and several lung metastases. There is redemonstration of the right lung collapse. Occlusion of the bronchus intermedius due to tumor is noted. There is small right and trace left pleural effusions. CTA of chest 10/31/2022 did not find evidence of pulmonary embolism. There is redemonstration of a right hilar soft tissue mass and postobstructive collapse of the right lung. Numerous left-sided nodules are somewhat increased from prior exam. PG Care Time/CCT Total # of Minutes Spent Total Time Spent: 90 Total Time Spent with Patient: Total time spent is greater than 50% in coordination of care (as documented) at patient's floor/unit and/or counseling patient: I spent 115 minutes overall addressing this case: 16 in medical data review/discussion with referring provider(s) and/or preparation for the visit 60 in direct interaction with the patient and dtr 24 Advance Care Planning/Goals of Care discussions as detailed above in note (must be >16min) 10 in subsequent review and synthesis of assessment and plan 15 in communicating with other providers regarding the patient's case: [] Advanced Care Planning 76355 Advanced Care Planning 30 [place] [address] Inpt Consult Level 5 Patient Type New History Comprehensive Exam Comprehensive Medical Decision Making High Complexity Diagnoses Palliative care encounter Z51.5 Advanced care planning/counseling discussion Z71.89 Cancer related pain G89.3 Weakness generalized R53.1 Metastatic colon cancer in female C18.9 Collapse of right lung J98.11 Nausea & vomiting R11.2 Additional Codes Advanced Care Planning - 58719 Advanced Care Planning 30 Min: 09029 Advanced Care Planning 30 Min ([id number])
[2022-11-01] MEDS ORDERED: PROMETHAZINE HCL 6.25 MG in SODIUM CHLORIDE 0.9% 50 ML IV STA (12:25)
[2022-11-01] MEDS: COLESTIPOL HCL 1 GM TAB PO SCH (12:39)
[2022-11-01] MEDS: HEPARIN 100 UNIT/ML 5ML FLUSH FLUSH PRN (13:15)
--- NOTE | 2022-11-01 16:31 | History & Physical Bridge Note ---
Date of Service November 01, 2022 History & Physical Bridge Note I have examined the patient, reviewed the History & Physical and in the interval since the performance of the History & Physical I have noted the following changes of clinical significance: no changes noted Patient admitted with cough with hemoptysis, likely from metastatic colon ca (CEA 18.8--> 29.6 recently) w/ known lung mets/collapse of R lung. Hypoxia with SpO2 87% on admit, placed on 3L --> currently 97% on room air * Recent admit for gross hematuria 10/11, Eliquis held and resumed about two weeks ago. * Sputum cx at that time staph aureus. Sent on rx for Keflex for UTI -- per heme/onc note, after initial keflex switched to amoxicillin and hematuria seemed to have subsided as did her fever. CXR R lung collapse, multiple LL nodules suggestive of metastatic disease CTA R hilar soft tissue mass/postobstructive collapse of R lung. Numerous L sided nodules somewhat increased from prior. Stable mediastinal & hilar lymphadenopathy. NO PE CTAP No acute abnormalities. Redemonstration of hepatic lesion compatible with metastatic disease, and is unchanged from prior exam although it has gradually increased from exam of July 2022. Placed eliquis on hold on admit, patient laying in bed resting upon exam, denies any further hemoptysis since this morning on admit. Prior oncology noted 10/19 -- extensive treatment of most standard cytotoxic regimen and anti-EGFR and anti VEGD based combinations. Could recycle through agents, unlikely achieve dramatic further/durable response w/ standard therapy along given marginal performance status/ongoing anemia. Available Caris testing no suggest role for ICI. ?consider additional biopsy allow for more expanded review of other targeted therapy options in investigational format. To have f/u Dr Hurst to see other options/qualification for investigational trials. Also noted [facility] for palliative care Pulmonary consulted -- consult noted --> if hemoptysis recur, rec TXA. Defer bronch eval given disease burden/lack of benefit from bronch. Debulking produces such as cryoablation or APC via bronchoscopic means can be considered at a tertiary center such as [place]. Did discuss with patient, her main goals are time with family. She lives with her and son. On CPAP w/ O2 and wears about 70-80% of the day. Fatigued and not hungry/poor appetite. Did have some nausea this morning, no vomiting. Phenergan more effective than zofran, can continue prn She utilizes CPAP with nasal pillows. Palliative consulted for goals of care. Possible meeting w/ Dr Weaver tomorrow vs Tuesday to allow palliaitve to be present for conversation given social factors at home/family pushing to continue treatment. She is fearful of dying. Support provided. Will give 1gm IV mag to keep closer to 2 given hx afib Changed to clear liquid diet/advance as tolerance. NOT hungry/depressed. BNP 54
--- NOTE | 2022-11-01 16:54 | Electrocardiogram Report ---
Test Reason : Blood Pressure : / mmHG Vent. Rate : 103 BPM Atrial Rate : 103 BPM P-R Int : 158 ms QRS Dur : 082 ms QT Int : 354 ms P-R-T Axes : 026 052 045 degrees QTc Int : 463 ms Sinus tachycardia Otherwise normal ECG When compared with ECG of 11-OCT-2022 16:03, No significant change was found Confirmed by Garrett Phelps ([id number]) on 11/01/2022 4:54:15 PM Referred By: REFERRED SELF Confirmed By:Garrett Phelps
[2022-11-01] MEDS ORDERED: MAGNESIUM SULFATE / D5W 1 GM/100 ML BAG IV ONE (17:04)
[2022-11-01] MEDS: ACETAMINOPHEN 325 MG TAB PO PRN (19:57)
[2022-11-01] MEDS: OLANZapine ZYDIS 5 MG ORALLY DIS. TAB PO SCH (19:58)
[2022-11-01] MEDS: SERTRALINE HCL 50 MG TABLET PO SCH (19:59)
[2022-11-01] MEDS: SIMVASTATIN 20 MG TAB PO SCH (19:59)
--- NOTE | 2022-11-02 05:56 | Hospitalist Progress Note ---
Date of Service November 02, 2022 Assessment & Plan (1) Metastatic colon cancer in female: Plan: Please see my previous oncology note [facility] At that time we discussed that there are limited additional options for treatment and the concern that her performance status and overall clinical situation indicate that she might be more harmed than helped by additional cytotoxic chemotherapy. She has apparently received similar advice from the [facility] team. Immediate management will be to try to gently stabilize her hemoptysis and pulmonary medicine feels that a conservative approach is not unreasonable to start. Palliative care has arranged for family meeting at [facility] this evening in which I will participate to review with the patient, her children and her current prognosis and treatment options. Primary indications are that the patient is in favor of a pure palliative care approach but that her is still pressing for more aggressive intervention. Full consultation will follow after that meeting Plan Family meeting this evening and full oncology consultation will follow thereafter Admission and Anticipated Discharge Date Admission Date: November 01, 2022 Subjective Patient with metastatic colon cancer most particularly affecting her lungs admitted with hemoptysis and extensive right lung obstruction. Results & Data Results & Data ([facility]) Vital Signs (Past 12 Hours) Vital Signs Temp Pulse Pulse Resp BP Pulse Ox O2 Del Method 11/01/22 22:45 89 22 96 11/01/22 20:05 36.8 C 90 18 135/79 95 Nasal CPAP 11/01/22 20:02 CPAP O2 Flow Rate 11/01/22 22:45 2 11/01/22 20:05 11/01/22 20:02 PG Care Time/CCT Total # of Minutes Spent Total Time Spent with Patient: Total time spent is greater than 50% in coordination of care (as documented) at patient's floor/unit and/or counseling patient: Coding Level of Care Code None Diagnoses Metastatic colon cancer in female C18.9
[2022-11-02] MEDS: LEVOTHYROXINE SODIUM 150 MCG TABLET PO SCH (06:03)
[2022-11-02] MEDS: OLANZapine ZYDIS 5 MG ORALLY DIS. TAB PO SCH ×2 (08:03→20:36)
[2022-11-02] MEDS: AMIODARONE 200 MG TAB PO SCH (08:04)
[2022-11-02] MEDS: PANTOprazole 40 MG TAB PO SCH (08:04)
--- NOTE | 2022-11-02 08:26 | Hospitalist Progress Note ---
Date of Service November 02, 2022 Assessment & Plan (1) Cough with hemoptysis: Plan: Patient admitted with cough with hemoptysis, likely from metastatic colon ca (CEA 18.8--> 29.6 recently) w/ known lung mets/collapse of R lung. Hypoxia with SpO2 87% on admit, placed on 3L --> currently 97% on room air * Recent admit for gross hematuria 10/11, Eliquis held and resumed about two weeks ago. * Sputum cx at that time staph aureus. Sent on rx for Keflex for UTI -- per heme/onc note, after initial keflex switched to amoxicillin and hematuria seemed to have subsided as did her fever. CXR R lung collapse, multiple LL nodules suggestive of metastatic disease CTA R hilar soft tissue mass/postobstructive collapse of R lung. Numerous L sided nodules somewhat increased from prior. Stable mediastinal & hilar lymphadenopathy. NO PE CTAP No acute abnormalities. Redemonstration of hepatic lesion compatible with metastatic disease, and is unchanged from prior exam although it has gradually increased from exam of July 2022. Placed eliquis on hold on admit, patient laying in bed resting upon exam, denies any further hemoptysis since this morning on admit when eval in afternoon 12. DID REPORT x1 small amount last evening around 9pm. Instructed to alert nursing if any further issues for dose of TXA. Hgb remains stable on repeat (of note, taking Aleve for bursitis of hip on occasion, would avoid NSAIDs given an emia/bleeding-- ordered dose of oxycodone 5mg x 1 and monitor response) Pulmonary consulted -- consult noted --> if hemoptysis recur, rec TXA. Defer bronch eval given disease burden/lack of benefit from bronch. Debulking produces such as cryoablation or APC via bronchoscopic means can be considered at a tertiary center such as [place]. Prior oncology noted 10/19 -- extensive treatment of most standard cytotoxic regimen and anti-EGFR and anti VEGD based combinations. Could recycle through agents, unlikely achieve dramatic further/durable response w/ standard therapy along given marginal performance status/ongoing anemia. Available Caris testing no suggest role for ICI. ?consider additional biopsy allow for more expanded review of other targeted therapy options in investigational format. To have f/u Dr Hurst to see other options/qualification for investigational trials. Also noted [facility] for palliative care Did discuss with patient, her main goals are time with family. She lives with her and son. On CPAP w/ O2 and wears about 70-80% of the day. Fatigued and not hungry/poor appetite. Did have some nausea this morning, no vomiting. Phenergan more effective than zofran, can continue prn She utilizes CPAP with nasal pillows -- brought in home machine. changed to use home machine Palliative consulted for goals of care. Meeting w/ Dr Weaver this afternoon + palliative to discuss hospice/palliative care/options this afternoon Clear liquid diet order -- advance as tolerated. BNP 54 WBC wnl, afebrile. Hgb stable/improved 10.6 (2) Metastatic colon cancer in female: Plan: [place] [facility] Received similar news from outpatient provider at [facility] and [place] Weaver Prior consult w/ palliative -- son/daughter on board w/ hospice, more skeptical of medical care and believes something to be done. Further discussions with family this afternoon with Dr Weaver (3) COPD (chronic obstructive pulmonary disease): Plan: Chronic. Stable -Continue nebs as needed, incentive spirometer added (4) History of DVT (deep vein thrombosis): Plan: On Eliquis, now on hold -- continue to hold for now given hemoptysis, TXA as needed if recurs SCDs in place for now but would encourage resuming as able given metastatic disease and risk for DVT/PE No increased calf pain presently, pulses palpable - monitor Plan continued inpatient stay Dr Weaver for family discussion w/ continued assistance from palliative for decision making at d/c CM to follow Admission and Anticipated Discharge Date Admission Date: November 01, 2022 Supervising Physician Co-Signing Physician Notes Attending Attestation - Chart reviewed, care plan d/w JULIA Chandra. I agree w/ the florian components of her documentation. Antonio Darden MD Subjective evgrace this morning, at bedside brought in her home CPAP, will order to use breathing stable, chronic baseline shortness of breath but reports not any worse than usual states she did have episode of hemoptysis around 9pm last evening, was not alerted but discussed with patient/ if occurs again please let someone know and will order dose of trexanimic acid per pulm recs. Had not talked to/seen Dr Weaver yet today, but discussed should be around this afternoon for continued discussion/options/palliative. Nausea but no vomiting R hip pain along IT band, however notes she has been told bursitis in the past. Typically takes Aleve at home. Will order dose of oxycodone to address given bleeding. Nausea but no vomiting. Questions/concerns addressed. Review of Systems Review of Systems: All systems reviewed & are unremarkable except as noted in HPI & below Physical Exam Physical Exam: General: chronically ill but comfortable appearing female laying in bed, on room air at rest, at bedside, NAD but reporting some R hip discomfort HEENT: head normocephalic, pupils equal in size, poor dentition CV: regular, no m/r/g, no pitting edema, trace pedal edema, calves nontender GI: +BS, soft/NT : no deras MSK/Neuro: moves all extremities, no focal deficit/slurred speech, follows commands tenderness to palpation along IT band, no decreased ROM, pulses palpable, cap refill wnl, NVI Skin: warm, dry Psych: AOx3, cooperative, calm but was tearful at end of our conversation Results & Data Results & Data ([facility]) Vital Signs (Past 12 Hours) Vital Signs Temp Pulse Pulse Resp BP Pulse Ox O2 Del Method 11/02/22 08:10 Room Air 11/02/22 07:01 36.6 C 88 16 104/70 94 Room Air 11/01/22 22:45 89 22 96 O2 Flow Rate 11/02/22 08:10 11/02/22 07:01 11/01/22 22:45 2 Laboratory Results 11/02/22 11/02/22 Range/Units 08:46 08:46 WBC 8.25 (4.8-10.8) K/ul RBC 3.36 L (3.93-5.22) M/uL Hgb 10.6 L (12.0-16.0) g/dl Hct 34.9 (34.1-44.9) % MCV 103.9 H (80.0-100.0) fL MCH 31.5 (25.0-34.0) pg MCHC 30.4 L (32.0-36.0) g/dL RDW Std Deviation 60.6 H (36.4-46.3) fL RDW Coeff of Marcell 15.9 H (11.5-14.5) % Plt Count 277 (130-400) K/uL MPV 9.8 (9.4-12.3) fL Sodium 139 (136-145) mmol/L Potassium 4.0 (3.5-5.1) mmol/L Chloride 97 L (98-107) mmol/L Carbon Dioxide 33 H (21-32) mmol/L Anion Gap 9 (3-11) BUN 11 (6-23) mg/dl Creatinine 0.88 (0.6-1.2) mg/dl Est Cr Clr Drug Dosing 70.0 ml/min Est GFR ( Amer) 77.2 ml/min Est GFR (Non-Af Amer) 66.6 ml/min BUN/Creatinine Ratio 12.5 (10-20) Glucose 83 (70-99(Fasting)) mg/dl Calcium 9.7 (8.5-10.1) mg/dl Magnesium 2.1 (1.7-2.4) mg/dl Diagnostic Findings Chest X-Ray 10/31/22 19:50 XR chest 1V portable CLINICAL HISTORY: Atypical chest pain. COMPARISON STUDY: Chest CT October 11, 2022. FINDINGS: Right internal jugular [id number] is in place. Postoperative findings within the right hemithorax are present. Right lung collapse is again noted. Multiple left lung nodules are similar to prior exam. No evidence for pulmonary edema within the left lung. There is no pneumothorax. IMPRESSION: No significant change in appearance of the chest. Right lung collapse with multiple left lung nodules suggestive of metastatic disease. ACT 112: Negative or not required by law. Electronically signed by: Darron Price M.D. 11/01/2022 10:33 AM PG Care Time/CCT Total # of Minutes Spent Total Time Spent with Patient: Total time spent is greater than 50% in coordination of care (as documented) at patient's floor/unit and/or counseling patient: Coding Level of Care Code 34954 Subseq Hosp Care Lvl 3 Diagnoses Cough with hemoptysis R04.2 Metastatic colon cancer in female C18.9 COPD (chronic obstructive pulmonary disease) J44.9 History of DVT (deep vein thrombosis) Z86.718
--- NOTE | 2022-11-02 08:30 | Palliative Family Discussion ---
Date of Service November 01 2022 345-430pm Patient Directed Conference Time of Meeting: [] Participants: Hawa Hanks DNP Patient participation: [] Patient Support System: [] Other Healthcare Provider Participation: None Meeting Location: [] Advanced Directive available: [Yes/No] If yes, descriptors: The patient's surrogate medical decision maker participated: [] Legally authorized health care proxy: [] Other surrogate: [] A family meeting was held for MERCEDEZ ABEL. This meeting was necessary for determining the appropriate course of treatment. Topics of Discussion Topics of Discussion: 1. At pt request, a [facility] teleconference was held with pt carrie Flores, a nurse who resides near [place]. pt wants dtr updated with all medical findings and wants Dtr's input for all recommendations and options moving forward. Dtr lio pdates that she called her younger brother, a [employer] circus laborer in [place], and provided the update from this morning's discussion. He is in agreement with pt and dtr about moving to a more comfort focused plan, adding he did not feel she would survive more chemo. Dtr reiterates they share the same concerns re father (pt's ) likely to be very insistent/demand chemo. She shares that has melanoma for which he is now on Keytruda. He feels all cancers can be treated with Keytruda. 2. Dtr states she will remain an advocate for pt wishes, even if pt changes her mind about not wanting more chemo, as she feels it is important pt not feel isolated, but also notes that she would challenge pt to be truthful during family meeting as pt has always been very accommodating and yielding, even when it was not what she wanted. 3. Family tensions outlined. There are three children: son Freddy who is unemployed/lives at home with pt and /occ helps; dtr Sandra/RN in [facility]; youngest son is a in his fellowship for [employer] and resides in [place] with his . Other Content of Meetin. Opportunity given for participants to speak and ask questions. 2. Participants were assured of attention to patient comfort. 3. Reassurance provided. 4. Support was provided for informed, good-igor decisions. 5. Emotions expressed by family were acknowledged and addressed. 6. Plan of Care: family meeting with Dr Weaver 530pm 12/6/22, likely will involve dtr via telephone and then another broader IDT meeting Weds/ depending on provider availability. Time Involved in Meeting: I spent 45 minutes overall addressing this case: 10 in medical data review/discussion with dtr/reviewing current findings 45 in direct interaction with the patient's dtr/call per pt request Hawa Hanks DNP Clinical Director, Palliative Medicine
[2022-11-02 09:09] LABS: Hematocrit (blood only) 34.9 % (34.1-44.9); Hemoglobin 10.6 g/dl (12.0-16.0); Mean Corpuscular Hemoglobin 31.5 pg (25.0-34.0); Mean Corpuscular Hgb Conc 30.4 g/dL (32.0-36.0); Mean Corpuscular Volume 103.9 fL (80.0-100.0); Mean Platelet Volume 9.8 fL (9.4-12.3); Platelet Count 277 K/uL (130-400); RDW Coefficient of Variation 15.9 % (11.5-14.5); RDW Standard Deviation 60.6 fL (36.4-46.3); Red Blood Count 3.36 M/uL (3.93-5.22); White Blood Count 8.25 K/ul (4.8-10.8)
[2022-11-02 09:32] LABS: BUN Creatinine Ratio 12.5 (10-20); Calcium 9.7 mg/dl (8.5-10.1); Est GFR (African American) 77.2 ml/min; Est GFR (Non-African American) 66.6 ml/min; Magnesium 2.1 mg/dl (1.7-2.4)
[2022-11-02] MEDS: COLESTIPOL HCL 1 GM TAB PO SCH (10:05)
[2022-11-02] MEDS ORDERED: oxyCODONE HCL IR 5 MG TAB (IMMEDIATE RELEASE) PO STA (11:22)
[2022-11-02] MEDS ORDERED: PROMETHAZINE HCL 6.25 MG in SODIUM CHLORIDE 0.9% 50 ML IV PRN (11:25)
[2022-11-02] MEDS: HEPARIN 100 UNIT/ML 5ML FLUSH FLUSH PRN (16:35)
[2022-11-02] MEDS: SERTRALINE HCL 50 MG TABLET PO SCH (20:35)
[2022-11-02] MEDS: SIMVASTATIN 20 MG TAB PO SCH (20:36)
--- NOTE | 2022-11-02 20:50 | Consultation ---
Date of Consultation November 02, 2022 Assessment & Plan (1) Metastatic colon cancer in female: 14-year history of metastatic colon cancer most recently progressive despite irinotecan/panitumumab. Unfortunately her performance status has now declined to 3 As detailed in history of present illness, she has received every standard active drug and indeed has repeated several on a number of occasions in various combinations. [facility] did suggest the combination of Lonsurf and bevacizumab but she tolerated Lonsurf poorly as a single agent previously and now that she has hemoptysis I would be concerned that the bevacizumab could exacerbate that. With poor performance status, probably multi resistant disease, I have made the point that her quality of life and ironically her quantity of life may be better served by pure palliative care approach. She had seemed to embrace this in previous discussions with palliative care but this evening during a family meeting that included her daughter, 2 sons, and she was quite tearful at the thought that she might not have additional response to further chemotherapy. We did have an extended family meeting with all those individuals incorporating all the other individuals besides the patient by speaker phone but with me at the patient's side. I have noted that she had done extraordinarily well for very long period of time but that most recently her cancer seems to be stronger and more resistant than her normal tissues and I do not think that we could give her a strong enough chemotherapy combination to dramatically impact the cancer without causing excessive and even potentially like shortening toxicity. We explicitly discussed a potential hospice like approach. She would very much wants to make sure she is not excluding any possibility whatsoever for additional oncologic specific treatment and so I agreed to her request that we could at least see how she does over the next several weeks and if there is a dramatic improvement in functionality might readdress the Lonsurf/bevacizumab combination though I have reiterated on multiple occasions my concern that even with improved performance status we might do more harm than good. I have emphatically indicated that we have nothing that is curative here. Patient will continue to talk with palliative care as well as with social work as to what her options might be for home support. I did outline that if she is not going home on hospice she might have lesser support in place for one of her very strong desires, to be home with her family. Currently her son is staying in the house with the patient and her and thus there would be reasonably good support for home hospice. I spent approximately 45 minutes overall with the patient the first 30 minutes of which were including her family members but thereafter some individual discussion just between her and I about the above topics. I have answered all her questions to the best my ability. Plan We have discussed the prognosis and treatment options during an extended family meeting as above and I presented to the patient that my own strong recommendation would be for palliative care only but I am willing to reassess in the next several weeks whether she has an unexpectedly dramatic performance status improvement that might warrant reconsideration of yet 1 more line of treatment with Lonsurf with or without bevacizumab Would continue with plan of care discussions and is well care management/social work discussions as to the pros and cons of hospice care versus home health nursing History of Present Illness Requesting Physician: Metastatic colon cancer with particular pulmonary metastases that have led ultimately to complete obstruction and "white out" of the right lung admitted now with hemoptysis and further respiratory decline. Attending Physician: Antonio Darden History of Present Illness Please see extensive notes in the [facility] electronic chart, I will asked the my most recent note be sent to [facility] for review. Patient was originally diagnosed with metastatic disease in November,. Interval treatment has combined chemotherapy, limited lung mass resection, and radiation to the thorax. Her chemotherapy regimens have included initial FOLFOX with cetuximab, irinotecan with cetuximab, cetuximab "maintenance," Lonsurf, regorafenib, rechallenge with FOLFOX with an allergic reaction to oxaliplatin, 5-FU/leucovorin/bevacizumab, then most recently irinotecan and panitumumab. She received 4 cycles of the latter most recently 08/24/2022 but it has been suspended since then with a series of respiratory complications and several admissions for that as she has developed a complete obstruction of the lung. She presents now with hemoptysis and further respiratory compromise. Note that she was seen by the [facility] oncology team who has been persistent since her care last week who felt that there was little further to offer other than a possible resumption of Lonsurf in conjunction with bevacizumab. NGS studies did not suggest any particular targetable mutations and overall found that she was mismatch repair proficient. Allergies Allergy/AdvReac Type Severity Reaction Status Date / Time diphtheria,pertussis Allergy Severe "Arm Verified 11/01/22 01:26 (acellular),te swelled [From Adacel(Tdap up," fever Adolesn/Adult)(PF)] irinotecan Allergy Severe perforations Verified 11/01/22 01:26 in bowel oxaliplatin Allergy Severe Anaphylaxis Verified 11/01/22 01:26 thiopental Allergy Intermediate INCREASED Verified 11/01/22 01:26 BLEEDING WITH WISDOM TEETH SURG anastrozole [From Arimidex] AdvReac Severe CAUSED Verified 11/01/22 01:26 INTERNAL BLEEDING meperidine AdvReac Mild N/V Verified 11/01/22 01:26 morphine AdvReac Mild N/V Verified 11/01/22 01:26 Home Medications Medication Instructions Recorded Confirmed Type albuterol sulfate 90 mcg/actuation 2 puff inhalation Q6 PRN Shortness 08/07/18 11/01/22 History aerosol inhaler Of Breath Or Wheezing multivitamin 1 tab PO QAM 08/07/18 11/01/22 History ascorbic acid (vitamin C) 500 mg 500 mg PO BIDM 11/02/19 11/01/22 History tablet (Vitamin C) pyridoxine (vitamin B6) 100 mg 100 mg PO QDL 10/12/20 11/01/22 History tablet (Vitamin B-6) cyanocobalamin (vitamin B-12) 1,000 mcg PO DAILY 01/07/21 11/01/22 History 1,000 mcg tablet (Vitamin B-12) ferrous sulfate 325 mg (65 mg 325 mg PO DAILY #60 tabs 01/04/22 11/01/22 Rx iron) tablet simvastatin 20 mg tablet 20 mg PO QPM #90 tabs 01/26/22 11/01/22 Rx colestipol 1 gram tablet (Colestid) 1 g PO DAILY #90 tabs 05/06/22 11/01/22 Rx amiodarone 200 mg tablet 200 mg PO DAILY #90 tabs 06/28/22 11/01/22 Rx sertraline 50 mg tablet 50 mg PO HS #90 tabs 07/02/22 11/01/22 Rx apixaban 5 mg tablet (Eliquis) 5 mg PO BID #180 tabs 07/08/22 11/01/22 Rx ipratropium 0.5 mg-albuterol 3 mg 3 ml inhalation Q4H PRN Shortness 08/05/22 11/01/22 Rx (2.5 mg base)/3 mL nebulization Of Breath Or Wheezing #540 mL soln vitamin E (dl, acetate) 180 mg 180 mg PO DAILY 08/28/22 11/01/22 History (400 unit) capsule omeprazole 40 mg capsule,delayed 40 mg PO QAM #90 caps 08/31/22 11/01/22 Rx release ondansetron 8 mg disintegrating 8 mg translingual Q8 PRN Nausea 09/07/22 11/01/22 History tablet Magic Mouthwash 300 mL mouthwash 10 ml mucous membrane .Q3-4 hr PRN 09/23/22 11/01/22 History sore mouth #300 mL cholecalciferol (vitamin D3) 25 25 mcg PO DAILY 09/23/22 11/01/22 History mcg (1,000 unit) capsule diphenoxylate-atropine 2.5 2 tab PO .Q6-8 hr PRN Diarrhea 09/23/22 11/01/22 History mg-0.025 mg tablet (Lomotil) [id number] C-Mn 500 1 cap PO WE 09/23/22 11/01/22 History mg-400 mg capsule (Glucosamine Chondroitin Maximum Strength) levothyroxine 150 mcg capsule 150 mcg PO DAILY 09/23/22 11/01/22 History magnesium oxide 400 mg PO BID 09/23/22 11/01/22 History potassium chloride 20 mEq 20 meq PO BID 09/23/22 11/01/22 History tablet,extended release prednisolone acetate 1 % eye 1 drp ophthalmic (eye) DAILY 09/23/22 11/01/22 Hi story drops,suspension prochlorperazine maleate 10 mg 10 mg PO Q6H PRN Nausea 09/23/22 11/01/22 History tablet (Compazine) valacyclovir 1 gram tablet 1,000 mg PO DAILY PRN .breakouts 09/23/22 11/01/22 History Patient History Medical History (Updated 11/01/22 @ 11:06 by Hawa Hanks DNP) Abnormal CT scan of lung Acute GI bleeding Anemia Antineoplastic chemotherapy induced pancytopenia Asthma Atelectasis of right lung Bacteremia Bilateral pulmonary embolism hx of 2012--reason for eliquis daily (had pneumonia right before and pt states she was not moving much) Candidiasis of intestine Chemotherapy adverse reaction Chronic diastolic congestive heart failure Chronic respiratory failure with hypoxia Colon cancer metastasized to lung (09/18/08) Depression Diverticulosis of colon DVT, lower extremity left leg, same time as PE Elevated diaphragm Elevated lactic acid level Essential hypertension GERD (gastroesophageal reflux disease) GI bleed Gross hematuria Hemoptysis History of anesthesia reaction difficulty waking at times as well as hx of waking up during sx (woke up during port placement) History of chemotherapy History of gastric ulcer History of immunocompromised state History of pulmonary embolism History of pulmonary embolus (PE) History of radiation therapy Hypercholesterolemia Hyperlipidemia Hypertension Hypothyroidism Hypothyroidism Hypoxia Infection due to Port-A-Cath Iron deficiency anemia Morbid obesity with BMI of 40.0-44.9, adult Multiple pulmonary nodules Neutropenia On anticoagulant therapy eliquis daily On home oxygen therapy 2L N/C at hs VU (obstructive sleep apnea) Osteoarthritis Port-A-Cath in place Pulmonary mass Radiation pneumonitis Restrictive lung disease Seizures due to metabolic disorder x2-- one d/t medication anaphylaxis, and pt states second d/t low magnesium in 09/2019 Septicemia due to coagulase-negative staphylococcal infection Tachycardia Weakness Surgical History H/O: hysterectomy History of bilateral tubal ligation History of bladder suspension procedure History of bronchoscopy x2-3 History of cholecystectomy open 04/2020 History of colon surgery d/t colon cancer History of colonoscopy with polypectomy History of esophagogastroduodenoscopy (EGD) History of lobectomy of lung right upper lobe removed 06/[address] [facility] d/t colon cancer metastasis to lung History of lung surgery wedge resection of left lung d/t cancer History of radioactive iodine thyroid ablation History of removal of cyst off finger History of tonsillectomy History of vascular access device x2--A port in place right side of chest History of ventral hernia repair History of wisdom tooth extraction Status post cholecystectomy Family History Mother , early 80s of thyroid cancer Thyroid cancer Heart disease Family history of reaction to anesthesia at age 80, took 2 days to wake after thyroidectomy Father , age 81 of gangrene complications No problems noted. 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 Beliefs That Will Affect Care: Mormon marital status: / Current Living Situation: Spouse and Family Current Living Situation Comment: lives with and son in 1.5 story home with 1st floor set up current occupational status: retired 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 She is resting comfortably in bed with no immediate respiratory distress. She is tearful but this is appropriate in the context of the family meeting and the difficult issues that we were discussing. She has fully intact mental status and seems completely capable of good decision-making Results & Data ([facility]) Vital Signs (Past 12 Hours) Vital Signs Temp Pulse Resp BP Pulse Ox O2 Del Method 11/02/22 20:27 36.6 C 97 H 18 115/69 94 Room Air 11/02/22 14:32 36.5 C 99 H 18 109/72 92 Room Air Laboratory Results Abnormal lab results 11/02/22 11/02/22 Range/Units 08:46 08:46 RBC 3.36 L (3.93-5.22) M/uL Hgb 10.6 L (12.0-16.0) g/dl MCV 103.9 H (80.0-100.0) fL MCHC 30.4 L (32.0-36.0) g/dL RDW Std Deviation 60.6 H (36.4-46.3) fL RDW Coeff of Marcell 15.9 H (11.5-14.5) % Chloride 97 L (98-107) mmol/L Carbon Dioxide 33 H (21-32) mmol/L Diagnostic Findings Chest CTA 10/31/22 19:49 CT angio chest PE protocol CLINICAL HISTORY: Lung CA, r/o PE TECHNIQUE: Multidetector row helical CT of the chest was performed with angiographic protocol. Coronal and sagittal reformations were obtained. Coronal and sagittal MIPS were obtained from the axial data set and were submitted for review. Automated dose lowering techniques and/or adjustment according to patient size were utilized for this exam. Comparison: Comparison is made to CT chest 10/11/2022 FINDINGS: Lungs and pleura: Right hilar mass and postobstructive atelectasis is again seen. Numerous pulmonary nodules are seen. Numerous pulmonary nodules are somewhat enlarged from prior exam including 17 mm nodule in the left lower lobe (series 4 image 93) which previously measured 12 mm, 10 mm nodule in the left upper lobe (image 141), 21 mm nodule in the left upper lobe (image 164) which previously measured 16 mm. Heart and pericardium: Heart size is normal. No pericardial effusion. Vessels: The pulmonary trunk is enlarged measuring 31 mm. Mediastinum and dawna: Mediastinal bilateral hilar lymphadenopathy is seen. There is an 18 mm left hilar node, as well as a subcarinal node measuring 36 x 29 mm, unchanged. Chest wall and lower neck: Subcentimeter axillary lymph nodes noted. A right port catheter is seen. Abdomen: For findings below the diaphragm, please refer to CT of the abdomen dated the same. Bones: Unremarkable. IMPRESSION: Redemonstration of a right hilar soft tissue mass and postobstructive collapse of the right lung. Numerous left-sided nodules are somewhat increased from prior exam. Stable mediastinal and hilar lymphadenopathy. No evidence of pulmonary embolus. ACT 112: Negative or not required by law. Electronically signed by: Jean Carlos Burns M.D. 11/01/2022 7:41 AM Chest X-Ray 10/31/22 19:50 XR chest 1V portable CLINICAL HISTORY: Atypical chest pain. COMPARISON STUDY: Chest CT October 11, 2022. FINDINGS: Right internal jugular [id number] is in place. Postoperative findings within the right hemithorax are present. Right lung collapse is again noted. Multiple left lung nodules are similar to prior exam. No evidence for pulmonary edema within the left lung. There is no pneumothorax. IMPRESSION: No significant change in appearance of the chest. Right lung collapse with multiple left lung nodules suggestive of metastatic disease. ACT 112: Negative or not required by law. Electronically signed by: Darron Price M.D. 11/01/2022 10:33 AM Abdomen/Pelvis CT 10/31/22 20:38 CT abd pelvis IV con only CLINICAL HISTORY: n/v, lung cancer TECHNIQUE: Helical axial images of the abdomen and pelvis were obtained and displayed. Automated dose lowering techniques and/or adjustment according to patient size were utilized for this exam. This exam was performed with intravenous contrast. CT DOSE: 1886.31 mGy.cm COMPARISON: Comparison is made to CT abdomen pelvis 10/11/2022 FINDINGS: Lower chest: For findings above the diaphragm, please see CT chest performed same day. Liver: Redemonstration of a right hepatic hypodensity measuring 26 mm, unchanged. Gallbladder and biliary tree: Patient is status post cholecystectomy. Physiologic prominence of the biliary ducts is noted. Pancreas: Unremarkable, no focal lesions. Spleen: Calcifications are noted in the spleen compatible with prior granulomatous disease. Adrenals: Parapelvic cysts are seen. Nonobstructive stones are seen. Kidneys and ureters: Unremarkable. Bladder: Unremarkable. Reproductive organs: Patient is status post hysterectomy. Bowel: Patient is status post appendectomy. A hiatal hernia is seen. Lymph nodes Retroperitoneal: Unremarkable. Pelvic: Unremarkable. Mesenteric: Unremarkable. Peritoneum: Normal. Vessels: Unremarkable. Abdominal wall: Postsurgical changes of hernia repair are seen. Bones: Bone hemangiomas are seen. IMPRESSION: No acute abnormalities. Redemonstration of hepatic lesion compatible with metastatic disease, and is unchanged from prior exam although it has gradually increased from exam of July 2022. ACT 112: Negative or not required by law. Electronically signed by: Jean Carlos Burns M.D. 11/01/2022 7:47 AM PG Care Time/CCT Total # of Minutes Spent Total Time Spent with Patient: Total time spent is greater than 50% in coordination of care (as documented) at patient's floor/unit and/or counseling patient: [place] [address] Inpt Consult Level 5 Patient Type New History Problem Focused Exam Problem Focused Medical Decision Making High Complexity Diagnoses Metastatic colon cancer in female C18.9 Time Spent (min) 60 Comment 45 minutes with patient + 15 minutes reviewing her chart and synthesizing a treatment plan
[2022-11-03 05:26] LABS: A calco-baum cmplx NotReported Not Detected (NotDetected); Bact fragilis Not Reported Not Detected (NotDetected); C auris Not Reported Not Detected (NotDetected); Calbicans Not Reported Not Detected (NotDetected); Candida glabrata Not Reported Not Detected (NotDetected); Candida krusei Not Reported Not Detected (NotDetected); Cneoformans/gatti Not Reported Not Detected (NotDetected); Cparapsilosis Not Reported Not Detected (NotDetected); Ctropicalis Not Reported Not Detected (NotDetected); E cloacae compx Not Reported Not Detected (NotDetected); Efaecalis Not Reported Not Detected (NotDetected); Efaecium Not Reported Not Detected (NotDetected); Enterobacterales Not Reported Not Detected (NotDetected); Escherichia coli Not Reported Not Detected (NotDetected); H influenzae Not Reported Not Detected (NotDetected); K aerogenes Not Reported Not Detected (NotDetected); Koxytoca Not Reported Not Detected (NotDetected); Kpneumoniae grp Not Reported Not Detected (NotDetected); Lmonocyt Not Reported Not Detected (NotDetected); N meningitidis Not Reported Not Detected (NotDetected); P aeruginosa Not Reported Not Detected (NotDetected); Proteus spp Not Reported Not Detected (NotDetected); Salmonella spp Not Reported Not Detected (NotDetected); Smarcescens Not Reported Not Detected (NotDetected); Staph lugdunensis Not Reported Not Detected (NotDetected); Staph spp. Not Reported Not Detected (NotDetected); Staphaureus Not Reported Not Detected (NotDetected); Staphepi Not Reported Not Detected (NotDetected); Stenmaltophilia Not Reported Not Detected (NotDetected); Strep agal(GrpB) Not Reported Not Detected (NotDetected); Strep pneum Not Reported Not Detected (NotDetected); Strep pyog (GrpA) Not Reported Not Detected (NotDetected); Strep spp Not Reported Not Detected (NotDetected)
[2022-11-03] MEDS: LEVOTHYROXINE SODIUM 150 MCG TABLET PO SCH (05:56)
--- NOTE | 2022-11-03 08:30 | Hospitalist Progress Note ---
Date of Service November 03, 2022 Assessment & Plan (1) Metastatic colon cancer in female: Plan: secondary malignant neoplasm of brain with cerebral edema Patient follows with [facility]. Received similar news from outpatient provider at [facility] and DR Weaver Known mets to lung and possibly liver on CTAP New diagnosis today of metastasis to brain seen on CTA and CT head after having strokelike symptoms Brain mets causing associated vasogenic edema and minimal leftward midline shift Discussed patient and findings with Dr Weaver and radiation oncology Dr Avalos Recommended Decadron loading dose of 10mg today followed by 4mg QID to help with edema/inflammation Dr Avalos stated that radiation may help but its effect would not be right away and the decadron is needed in the meantime. He stated if patient chose to do radiation they would need further imaging with MRIs. Further discussion w/ palliative and Dr Weaver - discussed the prognosis and treatment options during an extended family meeting with patient, her son and priti morris. Dr Weaver discussed his strong recommendation would be for palliative care only but willing to reassess in the next several weeks whether patient would have an unexpectedly dramatic performance status improvement that might warrant reconsideration of yet 1 more line of treatment with Lonsurf with or without bevacizumab. Would continue with plan of care discussions wanted to know life expectancy without vs with treatment (2) Cough with hemoptysis: Plan: Patient admitted with cough with hemoptysis, likely from metastatic colon ca (CEA 18.8--> 29.6 recently) w/ known lung and liver mets/collapse of R lung. Hypoxia with SpO2 87% on admit, placed on 3L --> currently 92% on room air * Recent admit for gross hematuria 10/11, Eliquis held and resumed about two weeks ago. Last dose of Eliquis was in the evening of 10/31/22 * Sputum cx at that time staph aureus. Sent on rx for Keflex for UTI -- per heme/onc note, after initial keflex switched to amoxicillin and hematuria seemed to have subsided as did her fever. CXR R lung collapse, multiple LL nodules suggestive of metastatic disease CTA R hilar soft tissue mass/postobstructive collapse of R lung. Numerous L sided nodules somewhat increased from prior. Stable mediastinal & hilar lymphadenopathy. NO PE CTAP No acute abnormalities. Remonstration of hepatic lesion compatible with metastatic disease, and is unchanged from prior exam although it has gradually increased from exam of July 2022. Palliative was consulted 11/02/22 for goals of care (3) COPD (chronic obstructive pulmonary disease): Plan: Chronic. Stable -Continue nebs as needed, incentive spirometer (4) History of DVT (deep vein thrombosis): Plan: On Eliquis, now on hold -- continue to hold for now given hemoptysis, TXA as needed if recurs SCDs in place for now but would encourage resuming as able given metastatic disease and risk for DVT/PE No increased calf pain presently, pulses palpable - monitor Plan continued inpatient stay Dr Weaver for family discussion w/ continued assistance from palliative for decision making at d/c CM to follow Admission and Anticipated Discharge Date Admission Date: November 01, 2022 Supervising Physician Co-Signing Physician Notes Patient seen and examined at bedside by myself during code artie Stroke alert was called as patient had left sided facial droop. Images confirmed mets to the brain. Informed family and palliative care. Given poor prognosis, and likely prognosis of weeks, palliative radiation will likely not be beneficial as it takes weeks to months to show any benefit. Corticosteroids will be more helpful. Subjective Code Artie was called this AM on patient. was at bedside and noticed patient had left facial droop and was not speaking. Nurse noted some right hand weakness. Stroke alert was called and STAT CTA and CT head and neck were ordered Patient has a history of Multifocal Atrial Tachycardia on Amiodarone and and has a history of Pulmonary Embolism on Eliquis chronically. Her last dose of Eliquis was 10/31/2022. Spoke with Dr Kimbrough with [facility]. CT and CTA with Multiple enhancing intraaxial masses, new since head CT of April 10, 2022. These are consistent with metastatic disease. Moderate associated vasogenic edema which results in sulcal effacement and minimal leftward midline shift. No herniation. Dr Kimbrough virtually examined and spoke with myself, Dr. Callaway, nursing, patient and her . He also reviewed the CT results with patient and family and advised them there was no evidence of an acute stroke but in fact the metastatic lesions were the cause of her stroke like symptoms. Review of Systems Constitutional: + fatigue, + malaise and + weakness Eyes: no diplopia, no loss of peripheral vision, no photophobia and not seeing flashes Respiratory: no cough, no chest congestion and no dyspnea Cardiovascular: no chest pain, no dyspnea and no syncope Gastrointestinal: no abdominal pain, no nausea and no vomiting Integumentary: no rash, no lesions and no wounds Neurologic: + localized weakness, + generalized weakness and + headache(s); no syncope This AM approximately at 10:30 she had an episode of aphasia and left facial droop Psychiatric: no confusion, no hallucinations and no visual hallucinations Physical Exam Constitutional: cooperative and + overweight Patient worried and upset with new diagnosis of brain metastasis Neck: trachea midline, no thyromegaly Respiratory: no respiratory distress, no labored breathing and no cough Cardiovascular: RRR, no murmur, no edema Gastrointestinal (Abdomen): normal bowel sounds, soft, nontender, no hepatosplenomegaly Neurologic: Patient has some slight left facial droop, she was able to move all extremities. Heel to coy, finger to nose and able to see peripheral fingers on examining, She is able to puff her cheeks with air. normal shoulder shrug. Psychiatric: Orientation: alert, oriented x 3 and cooperative Eye Contact: good eye contact Affect: + tearful affect Patient is tearful but pleasant and states she would like to investigate all her options regarding the new diagnosis of brain metastasis Results & Data Results & Data ([facility]) Vital Signs (Past 12 Hours) Vital Signs Temp Pulse Pulse Resp BP Pulse Ox O2 Del Method 11/03/22 07:35 36.6 C 115 H 16 141/86 H 94 Room Air 11/03/22 03:19 83 20 98 11/02/22 22:30 80 14 97 O2 Flow Rate 11/03/22 07:35 11/03/22 03:19 2 11/02/22 22:30 2 Laboratory Results Abnormal lab results 11/03/22 11/03/22 Range/Units 08:49 10:33 RBC 3.12 L (3.93-5.22) M/uL Hgb 10.0 L (12.0-16.0) g/dl Hct 32.1 L (34.1-44.9) % MCV 102.9 H (80.0-100.0) fL MCHC 31.2 L (32.0-36.0) g/dL RDW Std Deviation 60.4 H (36.4-46.3) fL RDW Coeff of Marcell 15.9 H (11.5-14.5) % POC Glucose 137 H (70-99) mg/dl Diagnostic Findings Cervical Spine CT 11/03/22 10:38 CT OF THE CERVICAL SPINE WITHOUT CONTRAST CLINICAL HISTORY: possible CVA COMPARISON STUDY: CTA of the neck February 10, 2019. TECHNIQUE: Helical axial images of the cervical spine were obtained without IV contrast. Sagittal and coronal reconstructions were viewed. Automated exposure control was utilized for the study. A dose lowering technique was utilized ad jose to the principles of ALARA. FINDINGS: There is straightening of the cervical lordosis. Vertebral body heights are maintained. No acute cervical spine fracture or subluxation is present. There is no prevertebral edema. Facet joints are intact. Moderate to space narrowing is noted at C5-C6. There is moderate multilevel facet arthrosis. Please note that the CTA of the neck will be reported separately. Right lung collapse, left apical metastases and thoracic/lower cervical lymphadenopathy are better depicted on recent chest CT. IMPRESSION: 1. No acute cervical spine fracture or subluxation. 2. Right lung collapse, left apical metastases and thoracic/lower cervical lymphadenopathy better depicted on recent chest CT. ACT 112: Negative or not required by law. Electronically signed by: Darron Price M.D. 11/03/2022 11:[address] 11/03/22 10:[address] DOSE: HISTORY: Weakness. Left-sided facial droop. possible CVA TECHNIQUE: Multiaxial CT images of the head were performed without the use of intravenous contrast. Automated exposure control was utilized for this study. A dose lowering technique was utilized adhering to the principles of ALARA. Comparison: None. Findings: The paranasal sinuses and mastoid air cells are clear. The calvarium and skull base are intact. Multiple scattered masses identified within the brain. The 2 dominant lesions within the right frontal lobe measure 3.4 and 2.5 cm. There is surrounding vasogenic edema within the right frontal lobe with mild mass effect along the frontal horn of the right lateral ventricle. No significant midline shift at this time. No acute infarct or intracranial hemorrhage. Impression: 1. Multiple scattered intracranial masses consistent with metastatic disease. Dominant lesion within the right frontal lobe demonstrates surrounding vasogenic edema without significant midline shift at this time. 2. No intracranial hemorrhage. ACT 112: Negative or not required by law. Electronically signed by: Norberto Pandya M.D. 11/03/2022 11:18 AM Head CTA 11/03/22 10:38 CTA ANGIOGRAPHY OF THE HEAD CLINICAL HISTORY: Possible stroke. Left-sided weakness. Facial droop. COMPARISON STUDY: Head CT April 10, 2022. TECHNIQUE: Helical axial images of the head were obtained following uneventful intravenous administration of 110 cc of Optiray. Sagittal and coronal reconstructions were viewed as well as maximal intensity projections on an independent 3-D workstation. Automated exposure control was utilized for the study. A dose lowering technique was utilized adhering to the principles of ALARA. CT DOSE: 1870.03 mGy.cm FINDINGS: Please note that the head CT will be reported separately. Multiple enhancing intraaxial lesions are new since head CT of April 10, 2022. These include a 3.1 cm right frontal lobe lesion on axial image 43 of 49. There is an additional 2.6 cm right frontal lobe lesion. A 1.4 cm right temporal lobe lesion is noted as well as a 1.2 cm left cerebellar lesion. There is a possible lesion within the right cerebellar hemisphere. A subcentimeter left frontal lobe enha ncing lesion is present. Moderate vasogenic edema associated with the right frontal lobe lesions is noted. This results in minimal leftward midline shift and minimal subfalcine shift. There is no evidence for herniation. The bilateral M1, M2, A1 and A2 segments are patent. Minimal plaque within the cavernous carotids is noted without stenosis. Posterior circulation is intact. No intracranial aneurysm or central vessel occlusion is present. IMPRESSION: 1. Multiple enhancing intraaxial masses, new since head CT of April 10, 2022. These are consistent with metastatic disease. Moderate associated vasogenic edema which results in sulcal effacement and minimal leftward midline shift. No herniation. 2. No intracranial aneurysm. No central vessel occlusion. ACT 112: Negative or not required by law. Electronically signed by: Darron Price M.D. 11/03/2022 11:17 AM PG Care Time/CCT Total # of Minutes Spent Total Time Spent with Patient: Total time spent is greater than 50% in coordination of care (as documented) at patient's floor/unit and/or counseling patient: Prolonged Care Time Prolonged Care Time: Yes Total Prolonged Care Time: 120 10:30 to 12:30 Coding Level of Care Code 32976 Subseq Hosp Care Lvl 3 (25 - SIGNIFICANT, SEPARATELY IDENTIFIABLE ) Medical Decision Making High Complexity Diagnoses Metastatic colon cancer in female C18.9 Cough with hemoptysis R04.2 COPD (chronic obstructive pulmonary disease) J44.9 History of DVT (deep vein thrombosis) Z86.718 Additional Codes Prolonged Care Time - Prolonged Care Time: Yes ([id number]) Time Spent (min) 120
[2022-11-03] MEDS: HEPARIN 100 UNIT/ML 5ML FLUSH FLUSH PRN ×3 (08:50→17:47)
[2022-11-03] MEDS: PANTOprazole 40 MG TAB PO SCH (09:05)
[2022-11-03] MEDS: OLANZapine ZYDIS 5 MG ORALLY DIS. TAB PO SCH ×2 (09:05→20:34)
[2022-11-03] MEDS: AMIODARONE 200 MG TAB PO SCH (09:05)
[2022-11-03 09:40] LABS: Hematocrit (blood only) 32.1 % (34.1-44.9); Mean Corpuscular Hemoglobin 32.1 pg (25.0-34.0); Mean Corpuscular Hgb Conc 31.2 g/dL (32.0-36.0); Mean Corpuscular Volume 102.9 fL (80.0-100.0); Mean Platelet Volume 9.9 fL (9.4-12.3); Platelet Count 246 K/uL (130-400); RDW Coefficient of Variation 15.9 % (11.5-14.5); RDW Standard Deviation 60.4 fL (36.4-46.3); Red Blood Count 3.12 M/uL (3.93-5.22); White Blood Count 7.58 K/ul (4.8-10.8)
[2022-11-03 10:09] LABS: Calcium 9.6 mg/dl (8.5-10.1); Creatinine Clr Calc Pharmacy 66.9 ml/min; Est GFR (African American) 73.1 ml/min; Est GFR (Non-African American) 63.1 ml/min; Magnesium 1.9 mg/dl (1.7-2.4); Potassium 3.9 mmol/L (3.5-5.1)
[2022-11-03] MEDS ORDERED: OPTIRAY 320 500ml IV ONE (11:01)
--- NOTE | 2022-11-03 11:19 | CT Scan Report ---
CTA ANGIOGRAPHY OF THE HEAD CLINICAL HISTORY: Possible stroke. Left-sided weakness. Facial droop. COMPARISON STUDY: Head CT April 10, 2022. TECHNIQUE: Helical axial images of the head were obtained following uneventful intravenous administr ation of 110 cc of Optiray. Sagittal and coronal reconstructions were viewed as well as maximal inten sity projections on an independent 3-D workstation. Automated exposure control was utilized for the study. A dose lowering technique was utilized adhering to the principles of ALARA. CT DOSE: 1870.03 mGy.cm FINDINGS: Please note that the head CT will be reported separately. Multiple enhancing intraaxial les ions are new since head CT of April 10, 2022. These include a 3.1 cm right frontal lobe lesion on axial image 43 of 49. There is an additional 2.6 cm right frontal lobe lesion. A 1.4 cm right temporal lob e lesion is noted as well as a 1.2 cm left cerebellar lesion. There is a possible lesion within the r ight cerebellar hemisphere. A subcentimeter left frontal lobe enhancing lesion is present. Moderate v asogenic edema associated with the right frontal lobe lesions is noted. This results in minimal leftw anya midline shift and minimal subfalcine shift. There is no evidence for herniation. The bilateral M1 , M2, A1 and A2 segments are patent. Minimal plaque within the cavernous carotids is noted without st enosis. Posterior circulation is intact. No intracranial aneurysm or central vessel occlusion is pres ent. IMPRESSION: 1. Multiple enhancing intraaxial masses, new since head CT of April 10, 2022. These are consistent with metastatic disease. Moderate associated vasogenic edema which results in sulcal effacement and minim al leftward midline shift. No herniation. 2. No intracranial aneurysm. No central vessel occlusion. ACT 112: Negative or not required by law. Electronically signed by: Darron Price M.D. 11/03/2022 11:17 AM
--- NOTE | 2022-11-03 11:20 | CT Scan Report ---
HEAD CT NONCONTRAST CT DOSE: HISTORY: Weakness. Left-sided facial droop. possible CVA TECHNIQUE: Multiaxial CT images of the head were performed without the use of intravenous contrast. A utomated exposure control was utilized for this study. A dose lowering technique was utilized adheri ng to the principles of ALARA. Comparison: None. Findings: The paranasal sinuses and mastoid air cells are clear. The calvarium and skull base are int act. Multiple scattered masses identified within the brain. The 2 dominant lesions within the right f rontal lobe measure 3.4 and 2.5 cm. There is surrounding vasogenic edema within the right frontal lob e with mild mass effect along the frontal horn of the right lateral ventricle. No significant midline shift at this time. No acute infarct or intracranial hemorrhage. Impression: 1. Multiple scattered intracranial masses consistent with metastatic disease. Dominant lesion within the right frontal lobe demonstrates surrounding vasogenic edema without significant midline shift at this time. 2. No intracranial hemorrhage. ACT 112: Negative or not required by law. Electronically signed by: Norberto Pandya M.D. 11/03/2022 11:18 AM
--- NOTE | 2022-11-03 11:27 | CT Scan Report ---
CT OF THE CERVICAL SPINE WITHOUT CONTRAST CLINICAL HISTORY: possible CVA COMPARISON STUDY: CTA of the neck February 10, 2019. TECHNIQUE: Helical axial images of the cervical spine were obtained without IV contrast. Sagittal a nd coronal reconstructions were viewed. Automated exposure control was utilized for the study. A do se lowering technique was utilized adhering to the principles of ALARA. FINDINGS: There is straightening of the cervical lordosis. Vertebral body heights are maintained. No acute cervical spine fracture or subluxation is present. There is no prevertebral edema. Facet joints are intact. Moderate to space narrowing is noted at C5-C6. There is moderate multilevel facet arthro sis. Please note that the CTA of the neck will be reported separately. Right lung collapse, left apic al metastases and thoracic/lower cervical lymphadenopathy are better depicted on recent chest CT. IMPRESSION: 1. No acute cervical spine fracture or subluxation. 2. Right lung collapse, left apical metastases and thoracic/lower cervical lymphadenopathy better dep icted on recent chest CT. ACT 112: Negative or not required by law. Electronically signed by: Darron Price M.D. 11/03/2022 11:25 AM
--- NOTE | 2022-11-03 11:55 | CT Scan Report ---
CT angio neck with con CLINICAL HISTORY: 72 years-old Female with possible stroke. Acute strokelike symptoms COMPARISON STUDY: CTA had of same day, CTA chest 10/31/2022 TECHNIQUE: Following the IV administration of 110 mL of Optiray, CT angiogram of the neck was perform ed from the aortic arch to the skull base. Images are reviewed in the axial, sagittal, and coronal pl anes. 3-D MIPS images are created and assessed. IV contrast was administered without complication. Al l measurements were calculated based on NASCET criteria. A dose lowering technique was utilized adhe ring to the principles of ALARA. FINDINGS: Atherosclerosis of the aorta. There is patency of the innominate and imaged subclavian arteries. Part ially imaged right IJ central venous catheter. The common and internal carotid arteries are patent. P atent codominant vertebral arteries. No aneurysm, dissection, high-grade stenosis or arterial occlusi on identified. Enhancing intracranial masses with surrounding vasogenic edema within the cerebellum and right tempor al lobe. Right subpectoral lymph nodes measure up to 9 mm. Pathologic right tracheoesophageal recess lymph nodes measure up to 1.3 cm. AP window lymphadenopathy measures up to 2.4 x 1.8 cm. Heterogeneou s masslike consolidation of the right lung apex is partially imaged. Polypoid mucosal thickening of t he left maxillary sinus. Degenerative changes of the cervical spine. No acute fracture or destructive bone lesion identified. IMPRESSION: 1. Unremarkable CTA component of the study without aneurysm, dissection, high-grade stenosis or arter ial occlusion. 2. Multiple enhancing intra-axial masses with vasogenic edema compatible with metastasis are better s een on the CTA head study of same day. 3. Pathologic lymph nodes within the upper chest with partially imaged right lung collapse with bronc hus intermedius tumor occlusion. ACT 112: Negative or not required by law. The above report was generated using voice recognition software. It may contain grammatical, syntax o r spelling errors. Electronically signed by: Woo Duran M.D. 11/03/2022 11:53 AM
[2022-11-03] MEDS ORDERED: dexAMETHasone 10 MG in SYRINGE 0 ML IV ONE (12:15)
[2022-11-03] MEDS: COLESTIPOL HCL 1 GM TAB PO SCH (13:43)
--- NOTE | 2022-11-03 14:35 | Electrocardiogram Report ---
Test Reason : Blood Pressure : / mmHG Vent. Rate : 096 BPM Atrial Rate : 096 BPM P-R Int : 168 ms QRS Dur : 092 ms QT Int : 382 ms P-R-T Axes : 023 053 045 degrees QTc Int : 482 ms Normal sinus rhythm with sinus arrhythmia Normal ECG When compared with ECG of 31-OCT-2022 19:37, No significant change was found Confirmed by Garrett Phelps ([id number]) on 11/03/2022 2:35:17 PM Referred By: REFERRED SELF Confirmed By:Garrett Phelps
[2022-11-03] MEDS ORDERED: ALTEPLASE, RECOMBINANT 1 MG/ML 2ML VIAL INSTIL ONE (15:30)
--- NOTE | 2022-11-03 18:59 | Palliative Care Progress Note ---
Date of Service November 03, 2022 Assessment & Plan (1) Palliative care encounter: Plan: brain mets founds today with neuro changes, stroke alert called. For Oncology Patients: Patient's Palliative Prognostic Score (PaP) Score = 13.5 points /Interpretation:30-day survival probability <30% [email or web address] Patient's Palliative Prognostic Index (PPI) Score= 10.5 points/Note:If the PPI is greater than 6.0, survival is less than three weeks (Sensitivity - 80%; Specificity - 85%). [email or web address] Palliative prognostics support a high risk for mortality within the next 4-6 weeks, with her pulmonary issues, this may be within 30 days. (2) Cancer related pain: (3) Hemoptysis: (4) Collapse of right lung: (5) Metastatic colon cancer in female: Plan Follow up family meeting tomorrow. Admission and Anticipated Discharge Date Admission Date: November 01, 2022 Subjective Patient had stroke like symptoms earlier this morning and a stroke alert was called. After further imaging and neuro eval, a new finding of brain mets was noted on CTA and CT head: Brain mets causing associated vasogenic edema and minimal leftward midline shift I notified Dr Weaver and Dr Callaway consulted radiation oncology Dr Robbie Weaver requested we initiate Decadron loading dose of 10mg today followed by 4mg QID to help with edema/inflammation. Dr Avalos noted that RT would likely help but effects would not be immediate nor would it be curative. Dr. Weaver met with pt/family earlier this afternoon and made a strong recommendation for comfort focused plan of care but did note he would be willing to reassess her if she had a dramatic improvement in her ECOG PS - at which point Dr Weaver may reconsider more treatment with Lonsurf +/- bevacizumab. of note, is asking what would be life expectancy without vs with treatment additionally, pt was admitted with cough with hemoptysis due to met colon ca w ith right lung collapse; CXR showed R lung collapse, multiple LL nodules suggestive of metastatic disease Review of Systems Review of Systems: Unobtainable due to mental health condition Physical Exam Physical Exam: pt tearful and slightly disoriented at times. speech slow and slightly garbled. Results & Data ([facility]) Vital Signs (Past 12 Hours) Vital Signs Temp Pulse Resp BP Pulse Ox O2 Del Method 11/03/22 14:50 37.1 C 95 H 16 100/65 92 Room Air 11/03/22 07:30 Room Air 11/03/22 10:35 36.4 C L 110 H 20 135/81 92 Room Air 11/03/22 09:10 109 H 153/90 H 97 Room Air 11/03/22 07:35 36.6 C 115 H 16 141/86 H 94 Room Air Laboratory Results see HPI Diagnostic Findings see HPI PG Care Time/CCT Total # of Minutes Spent Total Time Spent with Patient: Total time spent is greater than 50% in coordination of care (as documented) at patient's floor/unit and/or counseling patient: Coding [place] [address] Subseq Hosp Care Lvl 3 Patient Type Established History Comprehensive Exam Expanded Problem Focused Medical Decision Making High Complexity Diagnoses Palliative care encounter Z51.5 Cancer related pain G89.3 Hemoptysis R04.2 Collapse of right lung J98.11 Metastatic colon cancer in female C18.9
[2022-11-03] MEDS: SIMVASTATIN 20 MG TAB PO SCH (20:34)
[2022-11-03] MEDS: SERTRALINE HCL 50 MG TABLET PO SCH (20:35)
[2022-11-04] MEDS: dexAMETHasone 4 MG TAB PO SCH ×3 (05:39→18:33)
[2022-11-04] MEDS: LEVOTHYROXINE SODIUM 150 MCG TABLET PO SCH (05:39)
--- NOTE | 2022-11-04 07:02 | Hospitalist Progress Note ---
Date of Service November 03, 2022 Assessment & Plan (1) Colon cancer metastasized to lung: Plan: Even prior to today's events, her clinical prognosis was quite poor and as previously expressed I am very skeptical, even more so with today's events, about the value of additional oncologic specific intervention. However, with steroids the acute situation has stabilized and she does not seem to be immediately threatened and indeed 1 would expect an intermediate (weeks and perhaps even a small number of months) of potential survival going forward though a dramatic event such as VTE, hemorrhage, major infection, or major organ ischemia (brain or heart) could end her life precipitously. While radiation certainly does not help the acute situation, with the stabilization steroids have produced, I do think that radiation is a consideration to short-term stabilize the CONTACT AGENT lesions and allow for reasonable quality of life during that intermediate time. We will defer to the radiation oncology team for discussion as to whether isolated SBRT to critical lesions versus whole brain irradiation would be at all worthwhile. While I remain skeptical that additional oncologic intervention will be helpful beyond radiation and palliative care, I do not think it is unreasonable to indicate to the patient that we are willing to at least reassess the situation in 4 weeks and if there is unexpected stability potentially cautiously reexplore options. I have been very careful to repetitively to the patient and to her family express that I do not see us moving beyond palliative care at any point but I do not think it is completely fair to take away at least a sliver of hope as long as it is offered with that caveat. Her has pushed a times for treatment but at least in my [id number] discussions with him he is supportive of her making her own decisions and I think that her children, particularly her daughter who is most in charge of her care, have a solid understanding of the poor prognosis and its implications and will be helpful in guiding her towards good decisions as time passes She is specifically accepting going home on hospice with the, to her, comforting option that she can potentially reassess if there is stronger than expected recovery in the weeks to come Plan Good consider steroids even as we anticipate discharge to hospice but might formulate a radiation oncology plan prior to actual enrollment in that service. This might offer the opportunity to stabilize her symptomatology over a long period of time and let her take maximum advantage of her remaining life to enjoy some good quality interactions with her family Admission and Anticipated Discharge Date Admission Date: November 01, 2022 Subjective In better spirits evening with for the most part resolution of the right facial droop and no further neurological issues. Patient is currently physically comfortable and remains anxious but somewhat less acutely depressed. During successive visits her 2 sons and her are also present for several of the conversations. She does very much want to go home now though she is having trouble letting go of at least the possibility of repeating her CT scans in 4 weeks. Physical Exam Physical Exam: Vital signs are stable. She is alert, fluent, appropriate and seems to retain phone medical decision-making capacity. She has no meningismus and no more than a minimal facial droop with no gross neurological changes otherwise. Lung cardiac and abdominal examination seem stable Results & Data Results & Data ([facility]) Vital Signs (Past 12 Hours) Vital Signs Temp Pulse Resp BP Pulse Ox O2 Del Method 11/03/22 20:21 36.8 C 102 H 18 146/75 H 91 Room Air PG Care Time/CCT Total # of Minutes Spent Total Time Spent with Patient: Total time spent is greater than 50% in coordination of care (as documented) at patient's floor/unit and/or counseling patient: Coding Level of Care Code 06891 Subseq Hosp Care Lvl 2 Diagnoses Colon cancer metastasized to lung C18.9; C78.00
[2022-11-04] MEDS: HEPARIN 100 UNIT/ML 5ML FLUSH FLUSH PRN (08:10)
[2022-11-04] MEDS: OLANZapine ZYDIS 5 MG ORALLY DIS. TAB PO SCH ×2 (08:37→20:34)
[2022-11-04] MEDS: PANTOprazole 40 MG TAB PO SCH (08:37)
[2022-11-04] MEDS: AMIODARONE 200 MG TAB PO SCH (08:38)
[2022-11-04] MEDS ORDERED: dexAMETHasone 4 MG TAB PO SCH (09:00)
--- NOTE | 2022-11-04 09:46 | Radiation OncologyConsultation ---
Date of Consultation November 04, 2022 Assessment & Plan (1) Brain metastases: (2) Colon cancer metastasized to lung: Plan Assessment: Ms. Bee is a 72-year-old female who presents with metastatic colon cancer. Unfortunately, the patient's disease has significantly progressed and she no longer has any very effective systemic therapy options as per medical oncology. More recently, the patient was found to have metastatic disease involving the brain. The patient was found to be symptomatic with facial droop. The patient was started on dexamethasone which has improved her symptoms. I have been asked to evaluate the patient regarding palliative radiation therapy. Recommendation: Palliative radiation therapy. 5 fractions. Plan for partial treatment only to larger symptomatic lesions to avoid long-term neurocognitive deficits. I had a long in-depth discussion with both the patient and her daughter, Sandra, who agreed to try to do something quicker in order to attempt to palliate her symptoms but also allow her to move forward to hospice care. The patient and patient's family understands that the treatment is only to improve symptoms and not to improve overall prognosis. Plan: 1. CT simulation for treatment planning for radiation therapy. Patient was brought down today to expedite treatment planning process. 2. MRI of the brain ordered and will be completed today. 3. Continue patient on dexamethasone. 4. Continue follow-up with medical oncology. 5. Plan for eventual transfer to hospice care. 6. Patient and family encouraged to call us with any further questions or concerns. Rationale/Explanation of Treatment: I explained the indications, alternatives, benefits, risks and side effects of external beam radiation therapy. I explain the most common side effects including but not limited to skin erythema, skin break down, hair loss, radiation necrosis, fatigue, short-term memory loss, decreased neurocognitive performance, cerebral edema, hearing loss, damage to cochlea structures, seizures, loss of sensory and or motor function. I explained the treatment planning process and what to expect before during and after treatment. I have explained to the patient that there is an increased risk of overlap from the previous course of radiation therapy and the current course of radiation therapy which can increase the risk of all acute and late side effects of radiation therapy. The patient and daughter had multiple questions which were answered to their full satisfaction. Thank you for allowing us to participate in the care of this patient. This chart was completed in part utilizing Simple Beat Speech Voice Recognition software. Attempts were made to minimize the grammatical errors, random word insertions, pronoun errors and incomplete sentences. Any formal questions or concerns about the content, text or information contained within the body of this dictation should be directly addressed to the provider for clarification. Cristina Avalos MD Department of Radiation Oncology [facility] History of Present Illness Reason for Consultation: Brain metastases Requesting Physician: Javad Samuel MD Attending Physician: Javad Samuel MD History of Present Illness Ms. Bee is a 72-year-old female who was initially diagnosed with adenocarcinoma the colon with presenting lung metastasis in 2007. Adenocarcinoma the colon with lung metastasis diagnosed in 2007. 12/25/2007. Patient undergoes diagnostic colonoscopy. This noted a tumor with biopsy taken consistent with an adenocarcinoma. 128 await. Patient undergoes a chest x-ray which revealed a hilar mass and a right lobe mass. 12/2007. FOLFOX and cetuximab. 07/10/2008 status post right lobectomy. There was metastatic disease in 1 of 7 lymph nodes excised. 09/18/2008. Colonoscopy and biopsy revealing adenocarcinoma of the colon. Status post distal transverse and proximal descending colectomy. Stage pT3 pN1 pR M1 05/13/2021. Core needle biopsy right lung. Metastatic colorectal adenocarcinoma. 2007 -2010 serial scanning. 08/03/2011. CT scan showed a potential pulmonary metastatic disease in the left upper lobe. This confirmed metastatic disease from colon primary. 08/24/2011. Status post left upper lobe wedge resection due to metastasis. Systemic treatment followed with FOLFIRI and cetuximab. 01/03/2012. Stereotactic radiation therapy to the right lung. 48 Gordon in 4 fractions. This was delivered at [facility]. Performed by Dr. Ballesteros. 01/22/2015. Wedge resection right middle lobe. This confirmed metastatic adenocarcinoma consistent with a colorectal primary. This was performed by Dr. Torres continued systemic treatment. 2015. Radiation therapy to the right hilum. 60 Gordon in 8 fractions. Treatment was delivered for local recurrence in the right hilum. 10/24/2017. Status post completion of radiation therapy to right hilum recurrence. 3740 cGy given in 34 fractions. Twice daily fractionation. 05/29/2018 PET/CT. Enlarging FDG avid right hilar uptake. Continued cetuximab. Second opinion to MD Finn. Switch to Stivarga. 04/12/2019. Left upper lobe wedge resection. Metastatic adenocarcinoma. 10/17/2019. Restarted FOLFOX. Avastin added after cholecystectomy. 02/04/2021. Dr. Cervantes recommended treatment. She was restarted on leucovorin and 5-FU. Continued serial CT scans. 05/13/2021. Core biopsy of right lung nodule. Metastatic colorectal carcinoma. 06/21/2022. CT abdomen and pelvis. Disease progression. 07/13/2022. Irinotecan and panitumumab. 08/24/2022. Patient received her last cycle of systemic therapy. 09/07/2022. CT of the chest with contrast was performed following admission with finding of right lung collapse. CT scan showed status post right upper and middle lobectomy with total collapse of the right lung with an obstructive mass partially visualized at the hilum. This likely represents an enlargement of the right hilar mass seen on prior exam. A small right pleural effusion was noted enlarged from prior exam. Numerous pulmonary nodules are seen in the left lung similar in size to prior scans. In the mediastinum there were numerous mediastinal nodes significantly enlarged measuring up to 1.4 cm in the AP station enlarged mediastinal lymph nodes and 2.3 cm in the subcarinal region. Hepatic hypodensities are seen compatible with metastatic disease more pronounced than in prior exam. Degenerative changes are noted in the thoracic spine but no definite bony metastasis appreciated. 09/21/2022. Patient seen in follow-up by Dr. Weaver (hematology/oncology). He recommended holding systemic therapy at this time. The patient had been presented at lung cancer conference where the potential role of radiation was discussed and thought to be difficult to treat given the 2 prior radiation treatment courses to that area. He wished to have a more formal evaluation by radiation oncology and a referral was made. He also asked for a referral by the pulmonary team at [place]. And this was to be scheduled. We discussed the possibility of switching from a definitive/aggressive therapy to a more pure palliative care approach to optimize her quality of life given the ongoing toxic therapies could start to have negative effects on quality and quantity of life. We plan to see the patient back after review at [place] and by radiation oncology. 09/23/2022. Patient seen in radiation oncology for evaluation and discussion of potential role for radiation following the initiation of mild hemoptysis. 10/27/2022. Medical oncology follow-up with Dr. Hurst at [facility]. Treatment options include [place] however palliative care and hospice would be reasonable. 11/01/2022. Patient admitted to hospital due to cough with hemoptysis. Patient presents with strokelike symptoms. 11/03/2022. CTA head. IMPRESSION: 1. Multiple enhancing intraaxial masses, new since head CT of April 10, 2022. These are consistent with metastatic disease. Moderate associated vasogenic edema which results in sulcal effacement and minimal leftward midline shift. No herniation. 2. No intracranial aneurysm. No central vessel occlusion. 11/03/2022. Medical oncology follow-up with Dr. Weaver. Dr. Weaver again states there are limited options for treatment for the patient and she should consider hospice. Dr. Weaver suggested potential consideration for palliative radiation therapy prior to starting on hospice. 11/03/2022. Patient started on Dexamethasone for brain metastasis with symptomatic relief including her facial droop. Allergies Allergy/AdvReac Type Severity Reaction Status Date / Time diphtheria,pertussis Allergy Severe "Arm Verified 11/01/22 01:26 (acellular),te swelled [From Adacel(Tdap up," fever Adolesn/Adult)(PF)] irinotecan Allergy Severe perforations Verified 11/01/22 01:26 in bowel oxaliplatin Allergy Severe Anaphylaxis Verified 11/01/22 01:26 thiopental Allergy Intermediate INCREASED Verified 11/01/22 01:26 BLEEDING WITH WISDOM TEETH SURG anastrozole [From Arimidex] AdvReac Severe CAUSED Verified 11/01/22 01:26 INTERNAL BLEEDING meperidine AdvReac Mild N/V Verified 11/01/22 01:26 morphine AdvReac Mild N/V Verified 11/01/22 01:26 Home Medications Medication Instructions Recorded Confirmed Type albuterol sulfate 90 mcg/actuation 2 puff inhalation Q6 PRN Shortness 08/07/18 11/01/22 History aerosol inhaler Of Breath Or Wheezing multivitamin 1 tab PO QAM 08/07/18 11/01/22 History ascorbic acid (vitamin C) 500 mg 500 mg PO BIDM 11/02/19 11/01/22 History tablet (Vitamin C) pyridoxine (vitamin B6) 100 mg 100 mg PO QDL 10/12/20 11/01/22 History tablet (Vitamin B-6) cyanocobalamin (vitamin B-12) 1,000 mcg PO DAILY 01/07/21 11/01/22 History 1,000 mcg tablet (Vitamin B-12) ferrous sulfate 325 mg (65 mg 325 mg PO DAILY #60 tabs 01/04/22 11/01/22 Rx iron) tablet simvastatin 20 mg tablet 20 mg PO QPM #90 tabs 01/26/22 11/01/22 Rx colestipol 1 gram tablet (Colestid) 1 g PO DAILY #90 tabs 05/06/22 11/01/22 Rx amiodarone 200 mg tablet 200 mg PO DAILY #90 tabs 06/28/22 11/01/22 Rx sertraline 50 mg tablet 50 mg PO HS #90 tabs 07/02/22 11/01/22 Rx apixaban 5 mg tablet (Eliquis) 5 mg PO BID #180 tabs 07/08/22 11/01/22 Rx ipratropium 0.5 mg-albuterol 3 mg 3 ml inhalation Q4H PRN Shortness 08/05/22 11/01/22 Rx (2.5 mg base)/3 mL nebulization Of Breath Or Wheezing #540 mL soln vitamin E (dl, acetate) 180 mg 180 mg PO DAILY 08/28/22 11/01/22 History (400 unit) capsule omeprazole 40 mg capsule,delayed 40 mg PO QAM #90 caps 08/31/22 11/01/22 Rx release ondansetron 8 mg disintegrating 8 mg translingual Q8 PRN Nausea 09/07/22 11/01/22 History tablet Magic Mouthwash 300 mL mouthwash 10 ml mucous membrane .Q3-4 hr PRN 09/23/22 11/01/22 History sore mouth #300 mL cholecalciferol (vitamin D3) 25 25 mcg PO DAILY 09/23/22 11/01/22 History mcg (1,000 unit) capsule diphenoxylate-atropine 2.5 2 tab PO .Q6-8 hr PRN Diarrhea 09/23/22 11/01/22 History mg-0.025 mg tablet (Lomotil) xaxzswjcrpt-iylnrsdhz-vhr C-Mn 500 1 cap PO WE 09/23/22 11/01/22 History mg-400 mg capsule (Glucosamine Chondroitin Maximum Strength) levothyroxine 150 mcg capsule 150 mcg PO DAILY 09/23/22 11/01/22 History magnesium oxide 400 mg PO BID 09/23/22 11/01/22 History potassium chloride 20 mEq 20 meq PO BID 09/23/22 11/01/22 History tablet,extended release prednisolone acetate 1 % eye 1 drp ophthalmic (eye) DAILY 09/23/22 11/01/22 History drops,suspension prochlorperazine maleate 10 mg 10 mg PO Q6H PRN Nausea 09/23/22 11/01/22 History tablet (Compazine) valacyclovir 1 gram tablet 1,000 mg PO DAILY PRN .breakouts 09/23/22 11/01/22 History Patient History Medical History (Updated 11/04/22 @ 09:49 by Cristina Avalos MD) Abnormal CT scan of lung Acute GI bleeding Anemia Antineoplastic chemotherapy induced pancytopenia Asthma Atelectasis of right lung Bacteremia Bilateral pulmonary embolism hx of 2012--reason for eliquis daily (had pneumonia right before and pt states she was not moving much) Brain metastases Candidiasis of intestine Chemotherapy adverse reaction Chronic diastolic congestive heart failure Chronic respiratory failure with hypoxia Colon cancer metastasized to lung (09/18/08) Depression Diverticulosis of colon DVT, lower extremity left leg, same time as PE Elevated diaphragm Elevated lactic acid level Essential hypertension GERD (gastroesophageal reflux disease) GI bleed Gross hematuria Hemoptysis History of anesthesia reaction difficulty waking at times as well as hx of waking up during sx (woke up during port placement) History of chemotherapy History of gastric ulcer History of immunocompromised state History of pulmonary embolism History of pulmonary embolus (PE) History of radiation therapy Hypercholesterolemia Hyperlipidemia Hypertension Hypothyroidism Hypothyroidism Hypoxia Infection due to Port-A-Cath Iron deficiency anemia Morbid obesity with BMI of 40.0-44.9, adult Multiple pulmonary nodules Neutropenia On anticoagulant therapy eliquis daily On home oxygen therapy 2L N/C at hs VU (obstructive sleep apnea) Osteoarthritis Port-A-Cath in place Pulmonary mass Radiation pneumonitis Restrictive lung disease Seizures due to metabolic disorder x2-- one d/t medication anaphylaxis, and pt states second d/t low magnesium in 09/2019 Septicemia due to coagulase-negative staphylococcal infection Tachycardia Weakness Surgical History H/O: hysterectomy History of bilateral tubal ligation History of bladder suspension procedure History of bronchoscopy x2-3 History of cholecystectomy open 04/2020 History of colon surgery d/t colon cancer History of colonoscopy with polypectomy History of esophagogastroduodenoscopy (EGD) History of lobectomy of lung right upper lobe removed 06/2008 @ [facility] d/t colon cancer metastasis to lung History of lung surgery wedge resection of left lung d/t cancer History of radioactive iodine thyroid ablation History of removal of cyst off finger History of tonsillectomy History of vascular access device x2--A port in place right side of chest History of ventral hernia repair History of wisdom tooth extraction Status post cholecystectomy Family History Mother , early 80s of thyroid cancer Thyroid cancer Heart disease Family history of reaction to anesthesia at age 80, took 2 days to wake after thyroidectomy Father , age 81 of gangrene complications No problems noted. Uncle Colorectal cancer Sister Family history of diabetes mellitus Sister Family history of diabetes mellitus Brother Myocardial infarction Other Family history non-contributory Denies family history of Ovarian cancer Prostate cancer Breast cancer Social History Smoking Status: Never smoker Second Hand Exposure: Yes (father smoked); Hx Alcohol Use: No Hx Substance Use: No Preferred Language: Angolan Communication Ability: Effective Visual Impairment: No Limitations Hearing Ability: Normal Jalousie Installer Required: No Beliefs That Will Affect Care: Evangelical marital status: / Current Living Situation: Spouse and Family Current Living Situation Comment: lives with and son in 1.5 story home with 1st floor set up current occupational status: retired 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 Patient also does have a facial droop which is improving. She denies any other significant focal neurologic deficits. Physical Exam Constitutional: WD/WN, vitals as above Neurologic: Left facial droop noted otherwise unremarkable. Psychiatric: A+Ox3, euthymic affect
[2022-11-04] MEDS: COLESTIPOL HCL 1 GM TAB PO SCH (12:00)
[2022-11-04] MEDS: ACETAMINOPHEN 325 MG TAB PO PRN ×2 (12:12→19:47)
[2022-11-04] MEDS ORDERED: GADOBUTROL 65ML VIAL IV ONE (13:05)
--- NOTE | 2022-11-04 13:37 | Magnetic Resonance Report ---
MRI OF THE BRAIN COMBO CLINICAL HISTORY: Intracranial metastatic disease. History of colorectal carcinoma. COMPARISON STUDY: CT of the brain dated 11/03/2022. MRI of the brain dated 03/26/2019. TECHNIQUE: MRI of the brain was performed utilizing various T1 and T2-weighted sequences in the axial , sagittal, and coronal planes. Contrast-enhanced sequences were acquired following the administratio n of 10 cc of Gadavist. FINDINGS: Brain parenchyma: There is evidence of extensive/multifocal intracranial metastatic disease involving both hemispheres and the cerebellum with greater than 20 lesions identified. The largest lesions are seen in the right frontal lobe measuring 3.2 x 2.6 cm and in the right parietal lobe measuring 2.6 x 2.5 cm. There is significant surrounding edema and effacement of the overlying cortical sulci. No si gnificant midline shift is identified. The larger lesions show foci of hemosiderin deposition indicat ing prior hemorrhage. No acute hemorrhage is seen. There is no restricted diffusion typical for acute ischemia. No extra-axial fluid collection is seen. The cerebellar tonsils are normal in configuratio n. Ventricles, sulci, and cisterns: Normal in configuration. See above. Pituitary and sella: Partially empty sella is incidentally noted. Intracranial vasculature: Normal flow voids are maintained at the skull base. Orbits: The bony orbits are grossly intact. Orbital contents are normal in appearance. Sinuses and mastoids: There is a 14 mm retention cyst in the right maxillary antrum. The remaining pa ranasal sinuses are clear. There are bilateral mastoid effusions. Calvarium: Unremarkable. Cervical cord: Partially visualized cervical spinal cord is normal in morphology and signal intensity . IMPRESSION: 1. Findings of extensive/multifocal intracranial metastatic disease as above with significant edema s urrounding the larger lesions. 2. There is no acute hemorrhage, significant midline shift, or evidence of acute ischemia. ACT 112: Negative or not required by law. Electronically signed by: Isai Antoine M.D. 11/04/2022 1:34 PM
--- NOTE | 2022-11-04 16:28 | Palliative Family Discussion ---
Date of Service November 04, 2022 Patient Directed Conference Time of [id number] - [id number] Participants: Hawa Hanks DNP Patient participation: no Patient Support System: daughter, and family friend Other Healthcare Provider Participation: None Meeting Location: bedside, pt was taken down for Rad on simulation A family meeting was held for MERCEDEZ Alford PAGE. This meeting was necessary for determining the appropriate course of treatment. Topics of Discussion Topics of Discussion: 1. Pt has told dtr she wants to go home today or tomorrow, however Rad onc is planning 5 day course of tx, starting tomorrow. Daughter believes coming back and forth to [facility] will be hardship as pt is the only one who is home next week, their son Freddy is on vacation and dtr has to return to [place]. 2. pt wants to segue from RT completion to hospice 3. I have suggested dc home after RT tomorrow with home health, can segue from to hospice when appropriate Other Content of Meetin. Opportunity given for participants to speak and ask questions. 2. Participants were assured of attention to patient comfort. 3. Reassurance provided. 4. Support was provided for informed, good-igor decisions. 5. Emotions expressed by family were acknowledged and addressed. 6. Family is peaceful with decision to complete RT then move to comfort, they share pt goal of having her home and focusing on their time as a family. 7. Plan of Care: as noted above Time Involved in Meeting: I spent 45 minutes overall addressing this case: 5 in medical data review/discussion with referring provider(s) and/or preparation for the visit 25 in direct interaction with the patient 0 Advance Care Planning/Goals of Care discussions as detailed above in note (must be >16min) 5 in subsequent review and synthesis of assessment and plan 10 in communicating with other providers regarding the patient's case: []
[2022-11-04] MEDS: SERTRALINE HCL 50 MG TABLET PO SCH (20:34)
[2022-11-04] MEDS: SIMVASTATIN 20 MG TAB PO SCH (20:35)
--- NOTE | 2022-11-04 21:09 | Hospitalist Progress Note ---
Date of Service November 04, 2022 Assessment & Plan (1) Colon cancer metastasized to lung: Plan: Stable (2) Brain metastases: Plan: Over 20 lesions found in cerebrum and cerebellum on MRI today. Some left leg weakness. Dexamethasone p.o. Reviewed palliative care's excellent note todaytransition to hospice after radiation therapy for 5 days also discussed with radiation oncology this morning. (3) Advanced care planning/counseling discussion: Plan: Hospice. Really appreciate palliative care help (4) COPD (chronic obstructive pulmonary disease): Plan: Stable with chronic respiratory failure (5) Morbid obesity with BMI of 45.0-49.9, adult: Plan: Likely some component of obesity hypoventilation syndrome (6) VU and COPD overlap syndrome: (7) Anemia, macrocytic: Plan: B12 1090 on 12 October 2022 Same day folate over 22 (8) Thyroid nodule: Plan: On levothyroxinecheck TSH-none in our EMR Admission and Anticipated Discharge Date Admission Date: November 01, 2022 Subjective seen at 1215 , daughter and at bedside. COMPO CASTER was called yesterday when patient was unresponsive, eyes open and left side of face twitching, patient recalls trying to reach the nurse when she had the symptoms and not being able to talk. Daughter reports there was a seizure because of low magnesium over 2 years ago. Patient's appetite is good. Using nasal CPAP at night. Denies nausea/vomiting/abdominal pain or bloody or black stools. Daughter reports short-term memory deficits in the last few weeks but long-term memory is ex cellent. Left-sided weakness noted recently but unknown time duration Patient unable to tell Physical Exam Physical Exam: Morbidly obese, lying in bed on 1 pillow nasal CPAP still on" as I want to take a nap." Able to name and daughter correctly, recalls month after some hints from daughterit was her 's birthday yesterday Head and neck normal extraocular movements, moist oral mucosa Chest clear to auscultation anteriorly but exam limited, able to sit up on her own for posterior chest exam CVS S1-S2 Abdomen obese nontender [employer] 4 / 5 left knee flexors and5/5 right knee flexors, 4-5/5 left elbow flexors and 5 /5 on right Results & Data Results & Data ([facility]) Vital Signs (Past 12 Hours) Vital Signs Temp Pulse Resp BP Pulse Ox O2 Del Method 11/04/22 15:25 36.4 C L 95 H 16 126/79 93 Room Air Laboratory Results No labs Diagnostic Findings Brain MRI 11/04/22 08:31 MRI OF THE BRAIN COMBO CLINICAL HISTORY: Intracranial metastatic disease. History of colorectal carcinoma. COMPARISON STUDY: CT of the brain dated 11/03/2022. MRI of the brain dated 03/26/2019. TECHNIQUE: MRI of the brain was performed utilizing various T1 and T2-weighted sequences in the axial, sagittal, and coronal planes. Contrast-enhanced sequences were acquired following the administration of 10 cc of Gadavist. FINDINGS: Brain parenchyma: There is evidence of extensive/multifocal intracranial metastatic disease involving both hemispheres and the cerebellum with greater than 20 lesions identified. The largest lesions are seen in the right frontal lobe measuring 3.2 x 2.6 cm and in the right parietal lobe measuring 2.6 x 2.5 cm. There is significant surrounding edema and effacement of the overlying cortical sulci. No significant midline shift is identified. The larger lesions show foci of hemosiderin deposition indicating prior hemorrhage. No acute hemorrhage is seen. There is no restricted diffusion typical for acute ischemia. No extra-axial fluid collection is seen. The cerebellar tonsils are normal in configuration. Ventricles, sulci, and cisterns: Normal in configuration. See above. Pituitary and sella: Partially empty sella is incidentally noted. Intracranial vasculature: Normal flow voids are maintained at the skull base. Orbits: The bony orbits are grossly intact. Orbital contents are normal in appearance. Sinuses and mastoids: There is a 14 mm retention cyst in the right maxillary antrum. The remaining paranasal sinuses are clear. There are bilateral mastoid effusions. Calvarium: Unremarkable. Cervical cord: Partially visualized cervical spinal cord is normal in morphology and signal intensity. IMPRESSION: 1. Findings of extensive/multifocal intracranial metastatic disease as above with significant edema surrounding the larger lesions. 2. There is no acute hemorrhage, significant midline shift, or evidence of acute ischemia. ACT 112: Negative or not required by law. Electronically signed by: Isai Antoine M.D. 11/04/2022 1:34 PM Medications Administered Home Medications Medication Instructions Recorded Confirmed Last Taken albuterol sulfate 90 mcg/actuation 2 puff inhalation Q6 PRN Shortness 08/07/18 11/01/22 07/07/20 aerosol inhaler Of Breath Or Wheezing multivitamin 1 tab PO QAM 08/07/18 11/01/22 08/27/22 ascorbic acid (vitamin C) 500 mg 500 mg PO BIDM 11/02/19 11/01/22 08/27/22 tablet (Vitamin C) pyridoxine (vitamin B6) 100 mg 100 mg PO QDL 10/12/20 11/01/22 08/27/22 tablet (Vitamin B-6) cyanocobalamin (vitamin B-12) 1,000 mcg PO DAILY 01/07/21 11/01/22 08/27/22 1,000 mcg tablet (Vitamin B-12) ferrous sulfate 325 mg (65 mg 325 mg PO DAILY #60 tabs 01/04/22 11/01/22 08/27/22 iron) tablet simvastatin 20 mg tablet 20 mg PO QPM #90 tabs 01/26/22 11/01/22 08/27/22 colestipol 1 gram tablet (Colestid) 1 g PO DAILY #90 tabs 05/06/22 11/01/22 08/27/22 amiodarone 200 mg tablet 200 mg PO DAILY #90 tabs 06/28/22 11/01/22 08/27/22 sertraline 50 mg tablet 50 mg PO HS #90 tabs 07/02/22 11/01/22 08/27/22 apixaban 5 mg tablet (Eliquis) 5 mg PO BID #180 tabs 07/08/22 11/01/22 10/31/22 08:00 ipratropium 0.5 mg-albuterol 3 mg 3 ml inhalation Q4H PRN Shortness 08/05/22 11/01/22 Unknown (2.5 mg base)/3 mL nebulization Of Breath Or Wheezing #540 mL soln vitamin E (dl, acetate) 180 mg 180 mg PO DAILY 08/28/22 11/01/22 08/27/22 (400 unit) capsule omeprazole 40 mg capsule,delayed 40 mg PO QAM #90 caps 08/31/22 11/01/22 Unknown release ondansetron 8 mg disintegrating 8 mg translingual Q8 PRN Nausea 09/07/22 11/01/22 Unknown tablet Magic Mouthwash 300 mL mouthwash 10 ml mucous membrane .Q3-4 hr PRN 09/23/22 11/01/22 Unknown sore mouth #300 mL cholecalciferol (vitamin D3) 25 25 mcg PO DAILY 09/23/22 11/01/22 Unknown mcg (1,000 unit) capsule diphenoxylate-atropine 2.5 2 tab PO .Q6-8 hr PRN Diarrhea 09/23/22 11/01/22 Unknown mg-0.025 mg tablet (Lomotil) wcoeknnpefy-adsekhmer-bzi C-Mn 500 1 cap PO WE 09/23/22 11/01/22 Unknown mg-400 mg capsule (Glucosamine Chondroitin Maximum Strength) levothyroxine 150 mcg capsule 150 mcg PO DAILY 09/23/22 11/01/22 Unknown magnesium oxide 400 mg PO BID 09/23/22 11/01/22 Unknown potassium chloride 20 mEq 20 meq PO BID 09/23/22 11/01/22 Unknown tablet,extended release prednisolone acetate 1 % eye 1 drp ophthalmic (eye) DAILY 09/23/22 11/01/22 Unknown drops,suspension prochlorperazine maleate 10 mg 10 mg PO Q6H PRN Nausea 09/23/22 11/01/22 Unknown tablet (Compazine) valacyclovir 1 gram tablet 1,000 mg PO DAILY PRN .breakouts 09/23/22 11/01/22 Unknown Active Medications Generic Name Dose Route Start Last Admin Trade Name Freq PRN Reason Stop Dose Admin Acetaminophen 650 mg 11/01/22 03:09 11/04/22 19:47 Acetaminophen 325 Mg Tab PO 12/01/22 03:08 650 mg Q4H PRN Administration pain/fever Amiodarone HCl 200 mg 11/01/22 09:00 11/04/22 08:38 Amiodarone 200 Mg Tab PO 12/01/22 08:59 200 mg DAILY JAMIN Administration Colestipol HCl 1 gm 11/01/22 11:00 11/04/22 12:00 Colestipol Hcl 1 Gm Tab PO 12/01/22 10:59 1 gm DAILY@1100 JAMIN Administration Dexamethasone 4 mg 11/04/22 06:00 11/04/22 18:33 Dexamethasone 4 Mg Tab PO 12/04/22 05:59 4 mg Q6 JAMIN Administration Heparin Sodium (Porcine) 5 ml 11/01/22 12:26 11/04/22 08:10 Heparin 100 Unit/Ml 5ml Flush FLUSH 12/01/22 12:25 5 ml PRN PRN Administration Flush Levothyroxine Sodium 150 mcg 11/01/22 06:30 11/04/22 05:39 Levothyroxine Sodium 150 Mcg Tablet PO 12/01/22 06:29 150 mcg DAILYBB JAMIN Administration Olanzapine 5 mg 11/01/22 21:00 11/04/22 20:34 Olanzapine Zydis 5 Mg Orally Dis. Tab PO 12/01/22 20:59 5 mg BID JAMIN Administration Pantoprazole Sodium 40 mg 11/01/22 09:00 11/04/22 08:37 Pantoprazole 40 Mg Tab PO 12/01/22 08:59 40 mg QAM JAMIN Administration Sertraline HCl 50 mg 11/01/22 21:00 11/04/22 20:34 Sertraline Hcl 50 Mg Tablet PO 12/01/22 20:59 50 mg HS JAMIN Administration Simvastatin 20 mg 11/01/22 21:00 11/04/22 20:35 Simvastatin 20 Mg Tab PO 12/01/22 20:59 20 mg QPM JAMIN Administration PG Care Time/CCT Total # of Minutes Spent Total Time Spent with Patient: Total time spent is greater than 50% in coordination of care (as documented) at patient's floor/unit and/or counseling patient: Coding Level of Care Code 29616 Subseq Hosp Care Lvl 3 Diagnoses Colon cancer metastasized to lung C18.9; C78.00 Brain metastases C79.31 Advanced care planning/counseling discussion Z71.89 COPD (chronic obstructive pulmonary disease) J44.9 Morbid obesity with BMI of 45.0-49.9, adult E66.01; Z68.42 VU and COPD overlap syndrome G47.33; J44.9 Anemia, macrocytic D53.9 Thyroid nodule E04.1
[2022-11-05] MEDS: dexAMETHasone 4 MG TAB PO SCH ×3 (00:04→12:01)
[2022-11-05] MEDS: LEVOTHYROXINE SODIUM 150 MCG TABLET PO SCH (05:49)
[2022-11-05] MEDS: HEPARIN 100 UNIT/ML 5ML FLUSH FLUSH PRN (07:26)
[2022-11-05] MEDS: PANTOprazole 40 MG TAB PO SCH (08:25)
[2022-11-05] MEDS: OLANZapine ZYDIS 5 MG ORALLY DIS. TAB PO SCH (08:25)
[2022-11-05] MEDS: AMIODARONE 200 MG TAB PO SCH (08:25)
[2022-11-05] MEDS ORDERED: MAGNESIUM HYDROXIDE SUSP 30 ML UDC PO PRN (08:26)
--- NOTE | 2022-11-05 10:26 | Radiation Oncology Progress Nt ---
Date of Service November 05, 2022 Assessment & Plan (1) Brain metastases: (2) Colon cancer metastasized to lung: Plan Assessment: Ms. Bee is a 72-year-old female who presents with metastatic colon cancer. Unfortunately, the patient's disease has significantly progressed and she no longer has any very effective systemic therapy options as per medical oncology. More recently, the patient was found to have metastatic disease involving the brain. The patient was found to be symptomatic with facial droop. The patient was started on dexamethasone which has improved her symptoms. The patient was seen yesterday and the agreed upon plan was radiation therapy to on ly the largest metastatic deposits. In the interim, the patient did have her MRI of Brain which did reveal more extensive metastatic disease. Recommendation: Palliative radiation therapy. 5 fractions. Plan for whole brain radiation therapy. I have explained to daughter and patient that there are several other metastatic lesions that may she may develop symptoms from in the next several weeks to months and I think it would be prudent to treat her with whole brain radiation therapy to try to delay development of symptoms. This was mainly considered given the fact that the patient plans to enter hospice as soon as possible. Plan: 1. Plan for whole brain radiation therapy. Plan to treat next Tuesday to Tuesday. 5 fractions. 2. Continue patient on dexamethasone. 3. Continue follow-up with medical oncology. 4. Plan for eventual transfer to hospice care. 5. Patient and family encouraged to call us with any further questions or concerns.
[2022-11-05] MEDS: COLESTIPOL HCL 1 GM TAB PO SCH (12:01)
--- NOTE | 2022-11-05 13:24 | Palliative Care Progress Note ---
Date of Service November 05, 2022 Assessment & Plan (1) Palliative care encounter: Plan: Home today with RT ext week x 5 sessions then admitting to hospice. For Oncology Patients: Patient's Palliative Prognostic Score (PaP) Score = 13.5 points /Interpretation:30-day survival probability <30% [email or web address] Patient's Palliative Prognostic Index (PPI) Score= 10.5 points/Note:If the PPI is greater than 6.0, survival is less than three weeks (Sensitivity - 80%; Specificity - 85%). [email or web address] Palliative prognostics support a high risk for mortality within the next 4-6 weeks, with her pulmonary issues, this may be within 30 days. (2) Cancer related pain: (3) Hemoptysis: (4) Collapse of right lung: (5) Metastatic colon cancer in female: Plan Home today with hospice case d/w Dr. Samuel/[facility] med sought private d/w me after the visits x 15min, he spoke of his new understanding and acceptance of her frailty, terminal illness and that his life as he knows it is about to change in significant ways. He has not had time to process his grief, and wants to try and keep focus on patient/supporting her. He tells he does not believe she has more than a week or two to live. I did share with him that medical teams feel this may be a little bit longer, but he knows his better than any of us, so if that is his gut feeling then he should focus on doing the things he wants to do before time runs out: family gathering, early Nikki, a final family photo, etc. I also encouraged him to set aside some private time for the both of them every day to speak about their concerns and share their worries. I advised him hospice, when they are ready to enroll in it, will also provide family counseling which may ne another benefit since pt has custody of the 2 young grandchildren. Hawa Hanks DNP Clinical Director, Palliative Medicine Admission and Anticipated Discharge Date Admission Date: November 01, 2022 [facility] planned for this afternoon To start RT next Tuesday x 5 days feeling well, no new complaints, more alert and tells me she is content with her decisions and plan no new pain or n/v/d no headaches no visual changes at bedside, appropriately supportive Review of Systems Review of Systems: All systems reviewed & are unremarkable except as noted in Subjective Physical Exam Physical Exam: Elderly female who appears slightly older than stated age, resting in bed, awake and alert, mood subdued. +bitemporal wasting noted. PERRL, EOMIs, Dentition is poor, there is some caries and gingival issues n oted. Mucosa is slightly dry. Speech is clear and not garbled. Neck is supple and there is no stridor or thyromegaly noted. Respiratory effort is normal at rest. Lungs are diminished left < right, there are scattered rhonchi, right mid to base is very diminished. Bilateral crackles noted at times. Heart tones are S1S2, I did not appreciate a murmur. There is no JVD. Abdomen is soft, obese, bowel sounds are present throughout. There is no tenderness to my palpation. There is generalized weakness noted bilaterally. Her skin is pale and warm to touch. There is no mottling noted. Results & Data ([place]) Vital Signs (Past 12 Hours) Vital Signs Temp Pulse Resp BP Pulse Ox O2 Del Method 11/05/22 07:35 Room Air, CPAP 11/05/22 07:13 36.4 C L 94 H 16 130/76 93 Room Air PG Care Time/CCT Total # of Minutes Spent Total Time Spent: 65 Total Time Spent with Patient: Total time spent is greater than 50% in coordination of care (as documented) at patient's floor/unit and/or counseling patient: C[place] [address] Subseq Hosp Care Lvl 3 Patient Type Established Medical Decision Making Moderate Complexity Diagnoses Palliative care encounter Z51.5 Cancer related pain G89.3 Hemoptysis R04.2 Collapse of right lung J98.11 Metastatic colon cancer in female C18.9
--- NOTE | 2022-11-05 13:27 | Discharge Summary ---
Date of Service November 05, 2022 Admission HPI Per Admitting Provider Marie Bee is a 72yo female with adenocarcinoma of the colon with metastatic disease to the lung with mass in the right hilum diagnosed in 12/2007. She has undergone surgery as well as chemotherapy. She has known collapse of the right lung. [place] [facility] [place] Last seen on 10/19/22. Review of that note remarks on progression of metastatic disease since CT taken in August 2022 as well as collapse of the right lung with occlusion of the bronchus intermedius due to tumor. Patient is being considered to resume immunotherapy at this time. She presents today with several episodes of hemoptysis ongoing since the afternoon. She has been coughing up bright red blood as well as dark blood with small clots. She denies fever, chills, sweats or malaise. Denies chest pain, palpitations, worsening of her baseline dizziness or worsening of her SOB. 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 This was temporary on hold due to report of GIB. She resumed her Eliquis approximately 2 weeks ago. She denies rectal bleeding or hematuria. Patient has a chronic cough which is unchanged. Also with several episodes of non-bloody/non-bilious emesis over the last several days. She has also had some diarrhea. No additional complaints. In the ER she is afebrile, HD stable, non-toxic in appearance. No respiratory complaints. Adequate oxygenation on 3L NC which is her baseline. Principal Diagnosis colon cancer metastatic to the brain and lungs. Severe obesity with obstructive sleep apnea longstanding on nasal CPAP 3 L oxygen Discharge Exam Sitting up in bed at 9 am exam, severely obese, good insight and judgment, oriented to place and person, daughter and at bedside Has been using a walker with one-person assist to walk to the bathroom. Has not noticed focal neurological weakness Has used current overnight BiPAP settings with 3 L oxygen since 2005 Head and neck moist oral mucosa Chest clear to auscultation CVS S1-S2 Abdomen severely obese limits exam, nontender [employer]GRAM[employer] 45 out of 5 left knee extensor, 4 out of 5 left elbow flexor, 5 out of 5 right elbow flexor and right knee extensor Discharge Data Allergies Allergy/AdvReac Type Severity Reaction Status Date / Time diphtheria,pertussis Allergy Severe "Arm Verified 11/01/22 01:26 (acellular),te swelled [From Adacel(Tdap up," fever Adolesn/Adult)(PF)] irinotecan Allergy Severe perforations Verified 11/01/22 01:26 in bowel oxaliplatin Allergy Severe Anaphylaxis Verified 11/01/22 01:26 thiopental Allergy Intermediate INCREASED Verified 11/01/22 01:26 BLEEDING WITH WISDOM TEETH SURG anastrozole [From Arimidex] AdvReac Severe CAUSED Verified 11/01/22 01:26 INTERNAL BLEEDING meperidine AdvReac Mild N/V Verified 11/01/22 01:26 morphine AdvReac Mild N/V Verified 11/01/22 01:26 Consultations 11/01/22 00:25 ED Decision to Admit Stat 11/01/22 03:09 Consult Pulmonology Routine 11/01/22 08:42 Consult Palliative Care Routine 11/01/22 10:10 Consult Oncology Routine 11/04/22 08:33 Consult Radiation Oncology Routine Ordered Studies 10/31/22 19:49 CT angio chest PE protocol Urgent 10/31/22 20:38 CT abd pelvis IV con only Urgent 11/03/22 10:38 CT angio head w con Stat CT angio neck with con Stat CT head/brain wo con Stat CT neck [CT cervical spine wo con] Stat 11/04/22 08:31 MR brain wo/w con Routine 11/04/22 13:50 CT guide rad therapy head Routine Hospital Course (1) Colon cancer metastasized to lung: Stable Had been on anticoagulation long-term for history of bilateral PE which was provoked many years ago but subsequent to that had a DVT. With hemoptysis this time, Eliquis has been stopped CTA 10/31 showed no PE. There was a right hilar soft tissue mass and postobstructive collapse of the right lung and numerous left-sided nodules seen. 10/11 CT chest had revealed metastatic disease progressed since September 08, 2022 with increased mediastinal and bilateral hilar lymphadenopathy and several lung metastases (2) Brain metastases: Over 20 lesions found in cerebrum and cerebellum on MRI today. Some left leg weakness. Dexamethasone p.o. Reviewed palliative care's excellent note todaytransition to hospice after radiation therapy radiation therapy palliative for brain mets to happen 5 days next week. Discussed with Dr Scottie Avalos this morning. (3) Advanced care planning/counseling discussion: Hospice to come to her house tomorrow to set up care. (4) COPD (chronic obstructive pulmonary disease): Stable with chronic respiratory failure (5) Morbid obesity with BMI of 45.0-49.9, adult: Likely some component of obesity hypoventilation syndrome (6) Anemia, macrocytic: B12 1090 on 12 October 2022 Same day folate over 22 (7) Thyroid disorder: On levothyroxineTSH 1.35 Patient had a radiation treatment to her thyroid gland in 1995 for hyperthyroidism. Exact diagnosis unknown but has been on levothyroxine varying doses since then. Currently being discharged on the home dose 150 mcg daily Plan Have equipment at home and hospice will be set up tomorrow. Palliative care consult was very helpful. Olanzapine started. I D/W Ms Hanks in detail at discharge. Oncology does not have many options left for treatment of her cancer .the patient is DNR Total Time Total Time Spent Total Time Spent (In Minutes): 50 Discharge Plan Discharge Items Patient Disposition: Hospice - Home Reason For Visit: HEMOPTYSIS Discharge Diagnosis: Metastatic colon cancer with mets to the brain and lungs Activity: Resume your previous activity Non-emergency contact: Primary Care Provider Call non-emergency contact if: your symptoms worsen Follow-up/Referrals: Bacilio Garcia MD [Primary Care Provider] - Diet: Regular Addtl Attending Provider Instructions: Continue BiPAP for sleep apnea. Use a walker as before. Have a happy X mas. Pending Studies at Discharge: No Stand-Alone Forms: [facility] Medications and DC Order Prescriptions: New magnesium hydroxide [Milk of Magnesia] 400 mg/5 mL Suspension 30 ml PO Q6H PRN (Reason: constipation) Qty: 1 0RF dexamethasone 4 mg Tablet 4 mg PO Q6 Qty: 30 0RF acetaminophen 325 mg Tablet 650 mg PO Q4H PRN (Reason: pain) Qty: 30 0RF olanzapine 5 mg Tablet,Disintegrating 5 mg PO BID Qty: 10 0RF Continued prochlorperazine maleate [Compazine] 10 mg tablet 10 mg PO Q6H PRN (Reason: Nausea) prednisolone acetate 1 % drops,suspension 1 drp ophthalmic (eye) DAILY [id number] C-Mn [Glucosamine Chondroitin MaxStr] 500-400 mg capsule 1 cap PO WE cholecalciferol (vitamin D3) 25 mcg (1,000 unit) capsule 25 mcg PO DAILY levothyroxine 150 mcg capsule 150 mcg PO DAILY colestipol [Colestid] 1 gram tablet 1 g PO DAILY Qty: 90 3RF sertraline 50 mg tablet 50 mg PO HS Qty: 90 3RF omeprazole 40 mg capsule,delayed release(DR/EC) 40 mg PO QAM Qty: 90 3RF cyanocobalamin (vitamin B-12) [Vitamin B-12] 1,000 mcg tablet 1,000 mcg PO DAILY ipratropium-albuterol 0.5 mg-3 mg(2.5 mg base)/3 mL solution for nebulization 3 ml INHALATION Q4H PRN (Reason: Shortness Of Breath Or Wheezing) Qty: 540 5RF diphenoxylate-atropine [Lomotil] 2.5-0.025 mg tablet 2 tab PO .Q6-8 hr PRN (Reason: Diarrhea) ferrous sulfate 325 mg (65 mg iron) tablet 325 mg PO DAILY Qty: 60 2RF simvastatin 20 mg tablet 20 mg PO QPM Qty: 90 3RF amiodarone 200 mg tablet 200 mg PO DAILY Qty: 90 3RF multivitamin Tablet 1 tab PO QAM albuterol sulfate 90 mcg/actuation HFA aerosol inhaler 2 puff Inhalation Q6 PRN (Reason: Shortness Of Breath Or Wheezing) pyridoxine (vitamin B6) [Vitamin B-6] 100 mg Tablet 100 mg PO QDL ascorbic acid (vitamin C) [Vitamin C] 500 mg Tablet 500 mg PO BIDM ondansetron 8 mg tablet,disintegrating 8 mg translingual Q8 PRN (Reason: Nausea) valacyclovir 1 gram tablet 1,000 mg PO DAILY PRN (Reason: .breakouts) Rx Instructions: Per dr 1st Discontinued potassium chloride 20 mEq tablet extended release 20 meq PO BID Magic Mouthwash 300 mL mouthwash 10 ml mucous membrane .Q3-4 hr PRN (Reason: sore mouth) Qty: 300 Eliquis 5 mg tablet 5 mg PO BID Qty: 180 3RF magnesium oxide 400 mg magnesium tablet 400 mg PO BID vitamin E (dl, acetate) 180 mg (400 unit) Capsule 180 mg PO DAILY Discharge Orders: Discharge Order (Routine); Ordered 11/05/22 Ordered By: Javad Samuel Admission Data Admit Date/Time: 11/01/22 01:16 Attending Provider: Javad Samuel Admit Provider: Jessica Jiang Primary Care Provider: Bacilio Garcia Other Providers: Jessica Jiang ; Yeni Harding ; Fallon Bean ; Louann Louie ; Bobby Weaver ; Gerri Harvey ; Alissa Mcdermott ; Kd Salguero ; Bereket Guthrie ; Brandy Olea ; [facility] ; [facility] ; [facility],Home Healthcare ; [facility],Referral Center ; [facility] ; Cristina Avalos Coding Level of Care Code D/C DAY MANAGEMENT >30 MINS Diagnoses Colon cancer metastasized to lung C18.9; C78.00 Brain metastases C79.31 Advanced care planning/counseling discussion Z71.89 COPD (chronic obstructive pulmonary disease) J44.9 Morbid obesity with BMI of 45.0-49.9, adult E66.01; Z68.42 Anemia, macrocytic D53.9 Thyroid disorder E07.9
== END 2022-11-05 15:13 | disposition hospice, home (50) | DRG 180 ==
LOC: ED 19:30 → SUATTDRO 11-01 01:16 → 3W 11-01 01:16

== ENCOUNTER 2022-11-13 01:47 | Inpatient (IN) ==
[2022-11-13] MEDS ORDERED: fentaNYL citrate 100 MCG/2 ML VIAL IV STA (01:58)
[2022-11-13] MEDS ORDERED: ONDANSETRON INJ 2 MG/ML 2 ML VIAL IV STA (02:01)
--- NOTE | 2022-11-13 02:02 | Emergency Department Note ---
History of Present Illness General Chief complaint: Hip Pain Time Seen by Provider: 11/13/22 01:47 History of Present Illness This is a 72-year-old female who presents to the emergency department via EMS with complaints of "right hip pain". The patient notes that earlier today she was in a wheelchair. She was being escorted to the bathroom by her . She went to transfer from the wheelchair to the toilet and during that transfer felt a pop in the right hip. She fell to the floor. She was able be gently lowered and helped by her . Patient denies striking the head or loss of consciousness. She points to the right lateral hip as a location of pain. Patient does note that she is on Eliquis but discontinued this 2 weeks ago. Pain on movement 09/06. at bedside provides additional history. He notes that he was able to help lower her to the ground when the pop occurred in her hip while standing and then she fell. EMS were then summoned. He states that she has been battling cancer about 15 years now. He does note that she is emotional at times particularly since diagnosis of metastasis of the malignancy to her brain. He clarifies that the fall did not cause the break, rather, she was standing and then the pop was heard and she felt pain, then fell. He also notes that she is on hospice. Home Medications Medication Instructions Recorded Confirmed Type pyridoxine (vitamin B6) 100 mg 100 mg PO QDL 10/12/20 11/13/22 History tablet (Vitamin B-6) simvastatin 20 mg tablet 20 mg PO QPM #90 tabs 01/26/22 11/13/22 Rx amiodarone 200 mg tablet 200 mg PO DAILY #90 tabs 06/28/22 11/13/22 Rx sertraline 50 mg tablet 50 mg PO HS #90 tabs 07/02/22 11/13/22 Rx omeprazole 40 mg capsule,delayed 40 mg PO QAM #90 caps 08/31/22 11/13/22 Rx release ondansetron 8 mg disintegrating 8 mg translingual Q8 PRN Nausea 09/07/22 11/13/22 History tablet diphenoxylate-atropine 2.5 2 tab PO .Q6-8 hr PRN Diarrhea 09/23/22 11/13/22 History mg-0.025 mg tablet (Lomotil) prednisolone acetate 1 % eye 1 drp ophthalmic (eye) DAILY 09/23/22 11/13/22 History drops,suspension prochlorperazine maleate 10 mg 10 mg PO Q6H PRN Nausea And 09/23/22 11/13/22 History tablet (Compazine) Vomiting dexamethasone 4 mg tablet 4 mg PO Q6 #30 tabs 11/05/22 11/13/22 Rx magnesium hydroxide 400 mg/5 mL 30 ml PO Q6H PRN constipation #1 mL 11/05/22 11/13/22 Rx oral suspension (Milk of Magnesia) olanzapine 5 mg disintegrating 5 mg PO BID #10 tabs 11/05/22 11/13/22 Rx tablet acetaminophen 325 mg tablet 650 mg PO Q4H PRN Fever Or Pain 11/13/22 11/13/22 History acetaminophen 650 mg rectal 650 mg MT Q4 PRN Fever Or Pain 11/13/22 11/13/22 History suppository colestipol 1 gram tablet (Colestid) 1 g PO . ON HOLD 11/13/22 11/13/22 History hydromorphone 1 mg/mL oral liquid 1 mg PO .EVERY 2 HOURS PRN 11/13/22 11/13/22 History (Dilaudid) pain/dyspnea hyoscyamine sulfate 0.125 mg tablet 0.125 mg sublingual Q4 PRN 11/13/22 11/13/22 History terminal secretions ipratropium 0.5 mg-albuterol 3 mg 3 ml inhalation Q6 PRN Shortness 11/13/22 11/13/22 History (2.5 mg base)/3 mL nebulization Of Breath soln levothyroxine 125 mcg tablet 125 mcg PO DAILYBB 11/13/22 11/13/22 History lorazepam 1 mg tablet 0.5 mg PO Q4 PRN 11/13/22 11/13/22 History restlessness/insomnia lorazepam 1 mg tablet 2 mg sublingual .EVERY 15 MINUTES 11/13/22 11/13/22 History PRN Seizures multivitamin with minerals (Daily 1 tab PO DAILY 11/13/22 11/13/22 History Multivitamin-Minerals tablet) promethazine 25 mg tablet 25 mg PO Q6 PRN Nausea 11/13/22 11/13/22 History sennosides 8.6 mg tablet (senna) 8.6 - 17.2 mg PO DAILY 11/13/22 11/13/22 History Allergies Allergy/AdvReac Type Severity Reaction Status Date / Time diphtheria,pertussis Allergy Severe "Arm Verified 11/01/22 01:26 (acellular),te swelled [From Adacel(Tdap up," fever Adolesn/Adult)(PF)] irinotecan Allergy Severe perforations Verified 11/01/22 01:26 in bowel oxaliplatin Allergy Severe Anaphylaxis Verified 11/01/22 01:26 thiopental Allergy Intermediate INCREASED Verified 11/01/22 01:26 BLEEDING WITH WISDOM TEETH SURG anastrozole [From Arimidex] AdvReac Severe CAUSED Verified 11/01/22 01:26 INTERNAL BLEEDING meperidine AdvReac Mild N/V Verified 11/01/22 01:26 morphine AdvReac Mild N/V Verified 11/01/22 01:26 Past Med/Surg History Medical History Abnormal CT scan of lung Acute GI bleeding Anemia Antineoplastic chemotherapy induced pancytopenia Asthma Atelectasis of right lung Bacteremia Bilateral pulmonary embolism hx of 2012--reason for eliquis daily (had pneumonia right before and pt states she was not moving much) Brain metastases Candidiasis of intestine Chemotherapy adverse reaction Chronic diastolic congestive heart failure Chronic respiratory failure with hypoxia Colon cancer metastasized to lung (09/18/08) Depression Diverticulosis of colon DVT, lower extremity left leg, same time as PE Elevated diaphragm Elevated lactic acid level Essential hypertension GERD (gastroesophageal reflux disease) GI bleed Gross hematuria Hemoptysis History of anesthesia reaction difficulty waking at times as well as hx of waking up during sx (woke up during port placement) History of chemotherapy History of gastric ulcer History of immunocompromised state History of pulmonary embolism History of pulmonary embolus (PE) History of radiation therapy Hypercholesterolemia Hyperlipidemia Hypertension Hypothyroidism Hypothyroidism Hypoxia Infection due to Port-A-Cath Iron deficiency anemia Morbid obesity with BMI of 40.0-44.9, adult Multiple pulmonary nodules Neutropenia On anticoagulant therapy eliquis daily On home oxygen therapy 2L N/C at hs VU (obstructive sleep apnea) Osteoarthritis Port-A-Cath in place Pulmonary mass Radiation pneumonitis Restrictive lung disease Seizures due to metabolic disorder x2-- one d/t medication anaphylaxis, and pt states second d/t low magnesium in 09/2019 Septicemia due to coagulase-negative staphylococcal infection Tachycardia Weakness Surgical History H/O: hysterectomy History of bilateral tubal ligation History of bladder suspension procedure History of bronchoscopy x2-3 History of cholecystectomy open 04/2020 History of colon surgery d/t colon cancer History of colonoscopy with polypectomy History of esophagogastroduodenoscopy (EGD) History of lobectomy of lung right upper lobe removed 06/2008 @ [facility] d/t colon cancer metastasis to lung History of lung surgery wedge resection of left lung d/t cancer History of radioactive iodine thyroid ablation History of removal of cyst off finger History of tonsillectomy History of vascular access device x2--A port in place right side of chest History of ventral hernia repair History of wisdom tooth extraction Status post cholecystectomy Family History Mother , early 80s of thyroid cancer Thyroid cancer Heart disease Family history of reaction to anesthesia at age 80, took 2 days to wake after thyroidectomy Father , age 81 of gangrene complications No problems noted. Uncle Colorectal cancer Sister Family history of diabetes mellitus Sister Family history of diabetes mellitus Brother Myocardial infarction Other Family history non-contributory Denies family history of Ovarian cancer Prostate cancer Breast cancer Social History Smoking Status: Never smoker Second Hand Exposure: Yes (father smoked); Hx Alcohol Use: No Hx Substance Use: No Preferred Language: Ukrainian Communication Ability: Effective Visual Impairment: No Limitations Hearing Ability: Normal Auto Bumper Straightener Required: No Beliefs That Will Affect Care: Muslim marital status: / Current Living Situation: Spouse and Family Current Living Situation Comment: lives with and son in 1.5 story home with 1st floor set up current occupational status: retired 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 [employer] How many Children do You have: 1 other: 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 [employer] Feels Safe at Home: Yes Childhood Exposure to Second-Hand Smoke: Yes caffeine: Yes (12 0z daily) during the past year weight has: remained stable Seatbelt Use: always Assistive Devices: Oxygen - Continuous and Walker Review of Systems A total of 10 systems reviewed and were otherwise negative Physical Exam Vital Signs Vital Signs - 24 hr 11/13/22 01:56 11/13/22 02:05 Temperature 36.8 C Temperature Source Oral Pulse Rate 92 H Respiratory Rate 20 Blood Pressure 136/108 H Blood Pressure Mean 117 Pulse Oximetry 95 97 Oxygen Delivery Method Room Air Room Air Sepsis Recent Fever Within 48 Hours No Sepsis New/Unexplained Change in Mental Status N/A Sepsis Action Taken by Nursing No Action Required VITAL SIGNS - Vital signs and nursing notes were reviewed. Stable and afebrile. GENERAL -72-year-old female appearing her stated age who is in no acute distress. Communicates well with provider and answers questions appropriately. SKIN - Without rashes. No meningeal or petechial rash. HEAD - NC/AT. EYES - PERRL with EOMI bilaterally. Sclera anicteric. EARS - No deformities of external structures noted on gross examination bilaterally. MOUTH/OROPHARYNX - Without perioral cyanosis. NECK - Neck with FROM. No nuchal rigidity. LUNGS - Chest wall symmetric without accessory muscle use, intercostals retractions, or central cyanosis. CTA CARDIAC - RRR with S1/S2. No murmur, rubs, or gallops appreciated. ABDOMEN - Abdominal contour normal without pulsations or visible masses. BS normoactive all four quadrants. No tenderness, palpable masses, hepatosplenomegaly, or ascites noted. EXTREMITIES - No clubbing or peripheral cyanosis. No pretibial edema present. Right leg externally rotated and shortened. Point tenderness to the right lateral hip joint. Right dorsalis pedis pulse within normal limits. Sensory intact to light touch throughout the right lower extremity. +5/5 strength noted in UE/LE bilaterally. NEUROLOGIC - Cranial nerves II through XII grossly intact. PSYCH - A&O, and cooperates fully with examiner. Pt is very pleasant and interacts well with examiner. Course Administered Medications Discontinued Medications Fentanyl Citrate (Fentanyl Citrate 100 Mcg/2 Ml Vial) 50 mcg IV NOW STA Stop: 11/13/22 01:59 Last Admin: 11/13/22 02:09 Dose: 50 mcg Documented By: MEGHAN Ondansetron HCl (Ondansetron Inj 2 Mg/Ml 2 Ml Vial) 4 mg IV NOW STA Stop: 11/13/22 02:02 Last Admin: 11/13/22 02:09 Dose: 4 mg Documented By: MEGHAN Medical Decision Making Laboratory Data Result diagrams: 11/13/22 02:00 11/13/22 02:00 Lab Results 11/13/22 11/13/22 11/13/22 Range/Units 02:00 02:00 02:00 WBC 12.47 H (4.8-10.8) K/ul RBC 3.35 L (3.93-5.22) M/uL Hgb 10.8 L (12.0-16.0) g/dl Hct 34.4 (34.1-44.9) % MCV 102.7 H (80.0-100.0) fL MCH 32.2 (25.0-34.0) pg MCHC 31.4 L (32.0-36.0) g/dL RDW Std Deviation 64.5 H (36.4-46.3) fL RDW Coeff of Marcell 17.2 H (11.5-14.5) % Plt Count 129 L (130-400) K/uL MPV 10.0 (9.4-12.3) fL Immature Gran % (Auto) 4.6 % Neut % (Auto) 87.2 % Lymph % (Auto) 2.6 % Lincoln % (Auto) 5.4 % Eos % (Auto) 0.0 % Baso % (Auto) 0.2 % Neut # (Auto) 10.88 H (1.4-6.5) K/uL Lymph # (Auto) 0.33 L (1.2-3.4) K/uL Lincoln # (Auto) 0.67 (0.24-0.82) K/uL Eos # (Auto) 0.00 (0-0.50) K/uL Baso # (Auto) 0.02 (0-0.2) K/uL Immature Gran # (Auto) 0.57 H (0.00-0.02) K/uL PT 11.7 (9.0-12.0) Seconds INR 1.1 (0.9-1.1) APTT 27.7 (21.0-31.0) Seconds PTT Ratio 1.0 Sodium 139 (136-145) mmol/L Potassium 4.6 (3.5-5.1) mmol/L Chloride 105 (98-107) mmol/L Carbon Dioxide 31 (21-32) mmol/L Anion Gap 3 (3-11) BUN 39 H (6-23) mg/dl Creatinine 0.83 (0.6-1.2) mg/dl Est Cr Clr Drug Dosing 75.1 ml/min Est GFR ( Amer) 82.8 ml/min Est GFR (Non-Af Amer) 71.4 ml/min BUN/Creatinine Ratio 47.0 H (10-20) Glucose 147 H (70-99(Fasting)) mg/dl Calcium 8.0 L (8.5-10.1) mg/dl Total Bilirubin 0.4 (0.2-1.0) mg/dl AST 30 (13-39) U/L ALT 35 (7-52) U/L Alkaline Phosphatase 84 (34-104) U/L Total Protein 5.7 L (6.0-8.3) gm/dl Albumin 2.8 L (3.4-5.0) gm/dl Globulin 2.9 (2.5-4.0) gm/dl Albumin/Globulin Ratio 1.0 (0.9-2) SARS-CoV-2, RNA, NAAT (NEGATIVE) 11/13/22 Range/Units 02:19 WBC (4.8-10.8) K/ul RBC (3.93-5.22) M/uL Hgb (12.0-16.0) g/dl Hct (34.1-44.9) % MCV (80.0-100.0) fL MCH (25.0-34.0) pg MCHC (32.0-36.0) g/dL RDW Std Deviation (36.4-46.3) fL RDW Coeff of Marcell (11.5-14.5) % Plt Count (130-400) K/uL MPV (9.4-12.3) fL Immature Gran % (Auto) % Neut % (Auto) % Lymph % (Auto) % Lincoln % (Auto) % Eos % (Auto) % Baso % (Auto) % Neut # (Auto) (1.4-6.5) K/uL Lymph # (Auto) (1.2-3.4) K/uL Lincoln # (Auto) (0.24-0.82) K/uL Eos # (Auto) (0-0.50) K/uL Baso # (Auto) (0-0.2) K/uL Immature Gran # (Auto) (0.00-0.02) K/uL PT (9.0-12.0) Seconds INR (0.9-1.1) APTT (21.0-31.0) Seconds PTT Ratio Sodium (136-145) mmol/L Potassium (3.5-5.1) mmol/L Chloride (98-107) mmol/L Carbon Dioxide (21-32) mmol/L Anion Gap (3-11) BUN (6-23) mg/dl Creatinine (0.6-1.2) mg/dl Est Cr Clr Drug Dosing ml/min Est GFR ( Amer) ml/min Est GFR (Non-Af Amer) ml/min BUN/Creatinine Ratio (10-20) Glucose (70-99(Fasting)) mg/dl Calcium (8.5-10.1) mg/dl Total Bilirubin (0.2-1.0) mg/dl AST (13-39) U/L ALT (7-52) U/L Alkaline Phosphatase (34-104) U/L Total Protein (6.0-8.3) gm/dl Albumin (3.4-5.0) gm/dl Globulin (2.5-4.0) gm/dl Albumin/Globulin Ratio (0.9-2) SARS-CoV-2, RNA, NAAT NEGATIVE (NEGATIVE) Imaging Data My Impression: Right hip: There is a right proximal femur fracture noted MDM Narrative Patient was seen and evaluated as above in room C04. Review was performed of nursing notes and vital signs. I did review pertinent previous visits and patient history. After obtaining a thorough history and physical examination the above work up was performed. Patient presents to us today via EMS status post feeling a pop in the right hip while standing and then fell. Her helped lower her to the ground. On arrival the patient's right lower extremity is externally rotated and shortened. She is tender to the right lateral hip joint. No break in the integument. Options of care were discussed with the patient. IV access was obtained, labs were drawn. There is leukocytosis 12.47. Stable anemia with hemoglobin of 1 0.8. Coags normal. BUN elevated at 39. Glucose 147. COVID testing negative. Pelvis x-ray with hip per my interpretation reveals a proximal right femur fracture. Patient is neurovascularly intact throughout the right lower extremity. I reviewed results with the patient and at bedside. Her pain here was managed with IV fentanyl. She was given IV Zofran for any potential nausea. I do believe she would benefit from admission to the hospital for pain control and further discussion regarding options of care. Patient and in agreement with this plan. Case discussed with the hospitalist. Please refer to further documentation regarding her stay. Case was discussed with the attending physician. GCS: 15 In the evaluation and treatment of this patient, the following differential diagnoses were considered: Hip Fracture, Hip Dislocation, Greater Trochanteric Bursitis, Musculoskeletal Pain, Lumbar Radiculopathy, Among others. Impression & Plan Closed fracture of proximal end of right femur, Acute pain of right hip Discharge Plan Visit Data Chief Complaint: Hip Pain ED Provider: Greyson Rubin ED Midlevel Provider: William Temple Discharge Problem: Closed fracture of proximal end of right femur, Acute pain of right hip Patient Disposition: Admitted As Inpatient Condition: Fair Forms Stand Alone Forms: [facility] Prescriptions Prescriptions: No Action prochlorperazine maleate [Compazine] 10 mg tablet 10 mg PO Q6H PRN (Reason: Nausea And Vomiting) prednisolone acetate 1 % drops,suspension 1 drp ophthalmic (eye) DAILY sertraline 50 mg tablet 50 mg PO HS Qty: 90 3RF omeprazole 40 mg capsule,delayed release(DR/EC) 40 mg PO QAM Qty: 90 3RF diphenoxylate-atropine [Lomotil] 2.5-0.025 mg tablet 2 tab PO .Q6-8 hr PRN (Reason: Diarrhea) simvastatin 20 mg tablet 20 mg PO QPM Qty: 90 3RF amiodarone 200 mg tablet 200 mg PO DAILY Qty: 90 3RF pyridoxine (vitamin B6) [Vitamin B-6] 100 mg Tablet 100 mg PO QDL magnesium hydroxide [Milk of Magnesia] 400 mg/5 mL Suspension 30 ml PO Q6H PRN (Reason: constipation) Qty: 1 0RF dexamethasone 4 mg Tablet 4 mg PO Q6 Qty: 30 0RF olanzapine 5 mg Tablet,Disintegrating 5 mg PO BID Qty: 10 0RF sennosides [senna] 8.6 mg tablet 8.6 - 17.2 mg PO DAILY hydromorphone [Dilaudid] 1 mg/mL liquid 1 mg PO .EVERY 2 HOURS PRN (Reason: pain/dyspnea) acetaminophen 650 mg suppository 650 mg MT Q4 PRN (Reason: Fever Or Pain) promethazine 25 mg tablet 25 mg PO Q6 PRN (Reason: Nausea) acetaminophen 325 mg tablet 650 mg PO Q4H PRN (Reason: Fever Or Pain) ipratropium-albuterol 0.5 mg-3 mg(2.5 mg base)/3 mL solution for nebulization 3 ml INHALATION Q6 PRN (Reason: Shortness Of Breath) levothyroxine 125 mcg tablet 125 mcg PO DAILYBB Daily Multivitamin-Minerals Tablet 1 tab PO DAILY colestipol [Colestid] 1 gram tablet 1 g PO . ON HOLD hyoscyamine sulfate 0.125 mg tablet 0.125 mg sublingual Q4 PRN (Reason: terminal secretions) lorazepam 1 mg tablet 0.5 mg PO Q4 PRN (Reason: restlessness/insomnia) Rx Instructions: may take po,sl,pr/ may repeat in 1 hour if not relieved. lorazepam 1 mg tablet 2 mg sublingual .EVERY 15 MINUTES MDD 6 PRN (Reason: Seizures) Rx Instructions: may give sl or pr ondansetron 8 mg tablet,disintegrating 8 mg translingual Q8 PRN (Reason: Nausea) Referrals Referrals: Bacilio Garcia MD [Primary Care Provider] -
--- NOTE | 2022-11-13 02:04 | Emergency Department Note ---
ED Visit Note Physician Evaluation Note: I have personally evaluated and examined this patient. I agree with assessment and plan of William Temple PA-C. 72-year-old female with metastatic colon cancer currently stopped chemotherapy who was transferring from wheelchair to toilet when she felt a pop in the hip. Her witnessed the. Immediately pain and lowered to the ground. She not strike head or have any head injury. She has no headache or neck pain. Primary pain is in the right hip with some radiation down the leg. On examination it is externally rotated shortened with good pulses sensation distally. Tenderness palpation over right hip. Imaging confirms femur fracture just below trochanter. Patient was brought into hospital service for further discussion on hospice and whether surgery would even be indicated. Greyson Rubin MD
[2022-11-13 02:14] LABS: Basophils # (auto) 0.02 K/uL (0-0.2); Basophils % (auto) 0.2 %; Hematocrit (blood only) 34.4 % (34.1-44.9); Hemoglobin 10.8 g/dl (12.0-16.0); Immature Granulocytes # (auto) 0.57 K/uL (0.00-0.02); Immature Granulocytes % (auto) 4.6 %; Lymphocytes # (auto) 0.33 K/uL (1.2-3.4); Lymphocytes % (auto) 2.6 %; Mean Corpuscular Hemoglobin 32.2 pg (25.0-34.0); Mean Corpuscular Hgb Conc 31.4 g/dL (32.0-36.0); Mean Corpuscular Volume 102.7 fL (80.0-100.0); Monocytes # (auto) 0.67 K/uL (0.24-0.82); Monocytes % (auto) 5.4 %; Neutrophils # (auto) 10.88 K/uL (1.4-6.5); Neutrophils % (auto) 87.2 %; Platelet Count 129 K/uL (130-400); RDW Coefficient of Variation 17.2 % (11.5-14.5); RDW Standard Deviation 64.5 fL (36.4-46.3); Red Blood Count 3.35 M/uL (3.93-5.22); White Blood Count 12.47 K/ul (4.8-10.8)
[2022-11-13 02:25] LABS: INR 1.1 (0.9-1.1); Partial Thromboplastin Time 27.7 Seconds (21.0-31.0); Prothrombin Time 11.7 Seconds (9.0-12.0)
[2022-11-13 02:37] LABS: Albumin Level 2.8 gm/dl (3.4-5.0); Bilirubin,Total 0.4 mg/dl (0.2-1.0); Creatinine Clr Calc Pharmacy 75.1 ml/min; Est GFR (African American) 82.8 ml/min; Est GFR (Non-African American) 71.4 ml/min; Globulin 2.9 gm/dl (2.5-4.0); Potassium 4.6 mmol/L (3.5-5.1); Total Protein 5.7 gm/dl (6.0-8.3)
--- NOTE | 2022-11-13 03:11 | History & Physical Report ---
Date of Service November 13, 2022 Assessment & Plan (1) Closed fracture of proximal end of right femur: Plan: 72yo female presenting with fracture of the proximal right femur. Per history, femur most likely broke causing the patient to fall. Presently pain well cont rolled. She has some mild nausea, Neurovascularly intact. ?pathologic fracture, metastases in setting of known advanced colon cancer? Patient is ambulatory at baseline with use of a walker. -Admit to medical -Pain control with Dilaudid 1mg IV q 4 hours as needed for pain -Phenergan and Zofran PRN nausea -Tylenol as needed -Will keep patient NPO -Orthopedics consultation appreciated re: options for repair, uncertain if patient desires surgery (2) Metastatic colon cancer in female: Plan: Patient with metastatic colon cancer with disease to the lung and brain. She is on Hospice. Has home nursing and support. reports patient is very tearful when discussing her diagnosis. She also has labile moods at times due to her metastatic brain lesions. -Dilaudid for pain control -Phenergan and Zofran as needed for nausea -Continue Dexamethasone 4mg po q 6 hours. Next dose is due at 0600. -Continue Olanzapine 5mg po BID -Ativan as needed for anxiety (3) Thyroid disorder: Plan: Chronic. TSH normal at 1.39 on 11/05/22 -Continue Synthroid History of Present Illness Chief Complaint: Right proximal femur fracture Primary Care Provider: Bacilio Garcia MD Marie Bee is a 72yo female with history of metastatic colon cancer with metastases to lung and brain presenting with right proximal femur fracture. Patient was transferring from her wheelchair to the commode when she felt a pop in her right hip. She then experienced pain and fell. She denies additional complaints - no fever, chills, chest pain, palpitations, abdominal pain, nausea, vomiting, diarrhea or constipation. No urinary complaints. She has stable baseline SOB. Otherwise, no complaints. In the ER she is afebrile ,HD stable, NAD. ER Course: Fentanyl, Zofran Allergies Allergy/AdvReac Type Severity Reaction Status Date / Time diphtheria,pertussis Allergy Severe "Arm Verified 11/01/22 01:26 (acellular),te swelled [From Adacel(Tdap up," fever Adolesn/Adult)(PF)] irinotecan Allergy Severe perforations Verified 11/01/22 01:26 in bowel oxaliplatin Allergy Severe Anaphylaxis Verified 11/01/22 01:26 thiopental Allergy Intermediate INCREASED Verified 11/01/22 01:26 BLEEDING WITH WISDOM TEETH SURG anastrozole [From Arimidex] AdvReac Severe CAUSED Verified 11/01/22 01:26 INTERNAL BLEEDING meperidine AdvReac Mild N/V Verified 11/01/22 01:26 morphine AdvReac Mild N/V Verified 11/01/22 01:26 Home Medications Medication Instructions Recorded Confirmed Type pyridoxine (vitamin B6) 100 mg 100 mg PO QDL 10/12/20 11/13/22 History tablet (Vitamin B-6) simvastatin 20 mg tablet 20 mg PO QPM #90 tabs 01/26/22 11/13/22 Rx amiodarone 200 mg tablet 200 mg PO DAILY #90 tabs 06/28/22 11/13/22 Rx sertraline 50 mg tablet 50 mg PO HS #90 tabs 07/02/22 11/13/22 Rx omeprazole 40 mg capsule,delayed 40 mg PO QAM #90 caps 08/31/22 11/13/22 Rx release ondansetron 8 mg disintegrating 8 mg translingual Q8 PRN Nausea 09/07/22 11/13/22 History tablet diphenoxylate-atropine 2.5 2 tab PO .Q6-8 hr PRN Diarrhea 09/23/22 11/13/22 History mg-0.025 mg tablet (Lomotil) prednisolone acetate 1 % eye 1 drp ophthalmic (eye) DAILY 09/23/22 11/13/22 History drops,suspension prochlorperazine maleate 10 mg 10 mg PO Q6H PRN Nausea And 09/23/22 11/13/22 History tablet (Compazine) Vomiting dexamethasone 4 mg tablet 4 mg PO Q6 #30 tabs 11/05/22 11/13/22 Rx magnesium hydroxide 400 mg/5 mL 30 ml PO Q6H PRN constipation #1 mL 11/05/22 11/13/22 Rx oral suspension (Milk of Magnesia) olanzapine 5 mg disintegrating 5 mg PO BID #10 tabs 11/05/22 11/13/22 Rx tablet acetaminophen 325 mg tablet 650 mg PO Q4H PRN Fever Or Pain 11/13/22 11/13/22 History acetaminophen 650 mg rectal 650 mg CO Q4 PRN Fever Or Pain 11/13/22 11/13/22 History suppository colestipol 1 gram tablet (Colestid) 1 g PO . ON HOLD 11/13/22 11/13/22 History hydromorphone 1 mg/mL oral liquid 1 mg PO .EVERY 2 HOURS PRN 11/13/22 11/13/22 History (Dilaudid) pain/dyspnea hyoscyamine sulfate 0.125 mg tablet 0.125 mg sublingual Q4 PRN 11/13/22 11/13/22 History terminal secretions ipratropium 0.5 mg-albuterol 3 mg 3 ml inhalation Q6 PRN Shortness 11/13/22 11/13/22 History (2.5 mg base)/3 mL nebulization Of Breath soln levothyroxine 125 mcg tablet 125 mcg PO DAILYBB 11/13/22 11/13/22 History lorazepam 1 mg tablet 0.5 mg PO Q4 PRN 11/13/22 11/13/22 History restlessness/insomnia lorazepam 1 mg tablet 2 mg sublingual .EVERY 15 MINUTES 11/13/22 11/13/22 Hi story PRN Seizures multivitamin with minerals (Daily 1 tab PO DAILY 11/13/22 11/13/22 History Multivitamin-Minerals tablet) promethazine 25 mg tablet 25 mg PO Q6 PRN Nausea 11/13/22 11/13/22 History sennosides 8.6 mg tablet (senna) 8.6 - 17.2 mg PO DAILY 11/13/22 11/13/22 History Past Med/Surg History Medical History Abnormal CT scan of lung Acute GI bleeding Anemia Antineoplastic chemotherapy induced pancytopenia Asthma Atelectasis of right lung Bacteremia Bilateral pulmonary embolism hx of 2012--reason for eliquis daily (had pneumonia right before and pt states she was not moving much) Brain metastases Candidiasis of intestine Chemotherapy adverse reaction Chronic diastolic congestive heart failure Chronic respiratory failure with hypoxia Colon cancer metastasized to lung (09/18/08) Depression Diverticulosis of colon DVT, lower extremity left leg, same time as PE Elevated diaphragm Elevated lactic acid level Essential hypertension GERD (gastroesophageal reflux disease) GI bleed Gross hematuria Hemoptysis History of anesthesia reaction difficulty waking at times as well as hx of waking up during sx (woke up during port placement) History of chemotherapy History of gastric ulcer History of immunocompromised state History of pulmonary embolism History of pulmonary embolus (PE) History of radiation therapy Hypercholesterolemia Hyperlipidemia Hypertension Hypothyroidism Hypothyroidism Hypoxia Infection due to Port-A-Cath Iron deficiency anemia Morbid obesity with BMI of 40.0-44.9, adult Multiple pulmonary nodules Neutropenia On anticoagulant therapy eliquis daily On home oxygen therapy 2L N/C at hs VU (obstructive sleep apnea) Osteoarthritis Port-A-Cath in place Pulmonary mass Radiation pneumonitis Restrictive lung disease Seizures due to metabolic disorder x2-- one d/t medication anaphylaxis, and pt states second d/t low magnesium in 09/2019 Septicemia due to coagulase-negative staphylococcal infection Tachycardia Weakness Surgical History H/O: hysterectomy History of bilateral tubal ligation History of bladder suspension procedure History of bronchoscopy x2-3 History of cholecystectomy open 04/2020 History of colon surgery d/t colon cancer History of colonoscopy with polypectomy History of esophagogastroduodenoscopy (EGD) History of lobectomy of lung right upper lobe removed 06/2008 @ [facility] d/t colon cancer metastasis to lung History of lung surgery wedge resection of left lung d/t cancer History of radioactive iodine thyroid ablation History of removal of cyst off finger History of tonsillectomy History of vascular access device x2--A port in place right side of chest History of ventral hernia repair History of wisdom tooth extraction Status post cholecystectomy Family History Mother , early 80s of thyroid cancer Thyroid cancer Heart disease Family history of reaction to anesthesia at age 80, took 2 days to wake after thyroidectomy Father , age 81 of gangrene complications No problems noted. Uncle Colorectal cancer Sister Family history of diabetes mellitus Sister Family history of diabetes mellitus Brother Myocardial infarction Other Family history non-contributory Denies family history of Ovarian cancer Prostate cancer Breast cancer Social History Smoking Status: Never smoker Second Hand Exposure: Yes (father smoked); Hx Alcohol Use: No Hx Substance Use: No Preferred Language: Greek Communication Ability: Effective Visual Impairment: No Limitations Hearing Ability: Normal Skidder Operator Required: No Beliefs That Will Affect Care: Holiness marital status: / Current Living Situation: Spouse and Family Current Living Situation Comment: lives with and son in 1.5 story home with 1st floor set up current occupational status: retired 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 [employer] How many Children do You have: 1 other: 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 [employer] Feels Safe at Home: Yes Childhood Exposure to Second-Hand Smoke: Yes caffeine: Yes (12 0z daily) during the past year weight has: remained stable Seatbelt Use: always Assistive Devices: Oxygen - Continuous and Walker Review of Systems Review of Systems: All systems reviewed & are unremarkable except as noted in HPI & below Physical Exam Physical Exam: General: patient resting comfortably, NAD, non-toxic in appearance, AA&O x 4, ill in appearance Skin: warm, dry, intact, no rashes or lesions HEENT: NC/AT, PERRL, EOMI, anicteric sclera, conjunctiva without injection, external ear normal to inspection and nontender, nares patent, moist mucus membranes, dentition intact, no oropharyngeal lesions, neck supple, trachea midline, no LAD, no thyromegaly, no JVD Heart: +S1/S2, regular, no m/r/g Lungs: equal air entry bilaterally, no rales/rhonchi/wheezes Abd: +BS, soft, NT/ND, no masses/organomegaly/ascites Ext: warm, 2+ pulses in UE/LE bilaterally, no clubbing/cyanosis or edema, RLE shortened Neuro: nonfocal, patient AA&O x 4, speech intact, no facial droop, moving all extremities on command with equal strength 5/5 Results & Data Results & Data ([facility]) Vital Signs (Past 12 Hours) Vital Signs Temp Pulse Resp BP Pulse Ox O2 Del Method 11/13/22 02:05 97 Room Air 11/13/22 01:56 36.8 C 92 H 20 136/108 H 95 Room Air Laboratory Results Laboratory Results WBC 12.47 K/ul (4.8-10.8) H 11/13/22 02:00 RBC 3.35 M/uL (3.93-5.22) L 11/13/22 02:00 Hgb 10.8 g/dl (12.0-16.0) L 11/13/22 02:00 Hct 34.4 % (34.1-44.9) 11/13/22 02:00 MCV 102.7 fL (80.0-100.0) H 11/13/22 02:00 MCH 32.2 pg (25.0-34.0) 11/13/22 02:00 MCHC 31.4 g/dL (32.0-36.0) L 11/13/22 02:00 RDW Std Deviation 64.5 fL (36.4-46.3) H 11/13/22 02:00 RDW Coeff of Marcell 17.2 % (11.5-14.5) H 11/13/22 02:00 Plt Count 129 K/uL (130-400) L 11/13/22 02:00 MPV 10.0 fL (9.4-12.3) 11/13/22 02:00 Immature Gran % (Auto) 4.6 % 11/13/22 02:00 Neut % (Auto) 87.2 % 11/13/22 02:00 Lymph % (Auto) 2.6 % 11/13/22 02:00 Tift % (Auto) 5.4 % 11/13/22 02:00 Eos % (Auto) 0.0 % 11/13/22 02:00 Baso % (Auto) 0.2 % 11/13/22 02:00 Neut # (Auto) 10.88 K/uL (1.4-6.5) H 11/13/22 02:00 Lymph # (Auto) 0.33 K/uL (1.2-3.4) L 11/13/22 02:00 Tift # (Auto) 0.67 K/uL (0.24-0.82) 11/13/22 02:00 Eos # (Auto) 0.00 K/uL (0-0.50) 11/13/22 02:00 Baso # (Auto) 0.02 K/uL (0-0.2) 11/13/22 02:00 Immature Gran # (Auto) 0.57 K/uL (0.00-0.02) H 11/13/22 02:00 PT 11.7 Seconds (9.0-12.0) 11/13/22 02:00 INR 1.1 (0.9-1.1) 11/13/22 02:00 APTT 27.7 Seconds (21.0-31.0) 11/13/22 02:00 PTT Ratio 1.0 11/13/22 02:00 Sodium 139 mmol/L (136-145) 11/13/22 02:00 Potassium 4.6 mmol/L (3.5-5.1) 11/13/22 02:00 Chloride 105 mmol/L (98-107) 11/13/22 02:00 Carbon Dioxide 31 mmol/L (21-32) 11/13/22 02:00 Anion Gap 3 (3-11) 11/13/22 02:00 BUN 39 mg/dl (6-23) H 11/13/22 02:00 Creatinine 0.83 mg/dl (0.6-1.2) 11/13/22 02:00 Est Cr Clr Drug Dosing 75.1 ml/min 11/13/22 02:00 Est GFR ( Amer) 82.8 ml/min 11/13/22 02:00 Est GFR (Non-Af Amer) 71.4 ml/min 11/13/22 02:00 BUN/Creatinine Ratio 47.0 (10-20) H 11/13/22 02:00 Glucose 147 mg/dl (70-99(Fasting)) H 11/13/22 02:00 Calcium 8.0 mg/dl (8.5-10.1) L 11/13/22 02:00 Total Bilirubin 0.4 mg/dl (0.2-1.0) 11/13/22 02:00 AST 30 U/L (13-39) 11/13/22 02:00 ALT 35 U/L (7-52) 11/13/22 02:00 Alkaline Phosphatase 84 U/L (34-104) 11/13/22 02:00 Total Protein 5.7 gm/dl (6.0-8.3) L 11/13/22 02:00 Albumin 2.8 gm/dl (3.4-5.0) L 11/13/22 02:00 Globulin 2.9 gm/dl (2.5-4.0) 11/13/22 02:00 Albumin/Globulin Ratio 1.0 (0.9-2) 11/13/22 02:00 SARS-CoV-2, RNA, NAAT NEGATIVE (NEGATIVE) 11/13/22 02:19 Code Status & VTE Plan VTE Prophylaxis Plan VTE Prophylaxis will be ordered: Yes PG Care Time/CCT Total # of Minutes Spent Total Time Spent with Patient: Total time spent is greater than 50% in coordination of care (as documented) at patient's floor/unit and/or counseling patient: Coding Level of Care Code 10335 Initial Inpt Care Lvl 2 Diagnoses Closed fracture of proximal end of right femur S72.001A Metastatic colon cancer in female C18.9 Thyroid disorder E07.9
[2022-11-13] MEDS ORDERED: ALBUT/IPRATROP 3MG/0.5MG NEB 3 ML VIAL INH PRN (03:43)
[2022-11-13] MEDS ORDERED: bisacodyL 10 MG SUPP PR PRN (03:43)
[2022-11-13] MEDS ORDERED: MAGNESIUM HYDROXIDE SUSP 30 ML UDC PO PRN (03:43)
[2022-11-13] MEDS ORDERED: NALOXONE HCL 0.4 MG/1 ML VIAL/CARP IV PRN (03:43)
[2022-11-13] MEDS: LACTATED RINGER'S 1,000 ML IV SCH ×2 (04:17→15:39)
[2022-11-13] MEDS: ACETAMINOPHEN 325 MG TAB PO PRN ×2 (04:18→15:41)
[2022-11-13] MEDS: ONDANSETRON INJ 2 MG/ML 2 ML VIAL IV PRN (04:18)
[2022-11-13] MEDS: HYDROmorphone INJ 1 MG/ML SYRINGE IV PRN ×2 (04:18→20:43)
[2022-11-13] MEDS: LEVOTHYROXINE SODIUM 125 MCG TABLET PO SCH (06:29)
[2022-11-13] MEDS: dexAMETHasone 4 MG TAB PO SCH ×4 (06:30→22:59)
--- NOTE | 2022-11-13 06:54 | XRay Report ---
SINGLE VIEW PELVIS; 2 VIEWS RIGHT HIP CLINICAL HISTORY: Right hip pain. FINDINGS: An AP view of the pelvis with AP and crosstable lateral views of the right hip are compared to study dated 08/28/2022 and correlated with pelvic CT dated 10/31/2022. The skeletal structures are osteopenic. There is an acute, displaced, and angulate acute fracture of the subtrochanteric right fe mur overlying soft tissue edema is noted. The shaft is offset by at least one shaft length on the crop grain or livestock farmer sstable lateral view. Question subtle cortical lucency at the fracture site. No additional fracture i s seen involving the left hip or the bony pelvis. Minimal degenerative change is seen in the hips and sacroiliac joints. There is no bowel obstruction. Mesh material projects over the lower abdomen. IMPRESSION: 1. Displaced and angulated subtrochanteric fracture of the right proximal femur. 2. Question subtle cortical lucency at the fracture site. A pathologic fracture is not excluded. 3. No additional fracture is seen involving the left hip or bony pelvis. Electronically signed by: Isai Antoine M.D. 11/13/2022 6:51 AM
--- NOTE | 2022-11-13 07:18 | Hospitalist Progress Note ---
Date of Service November 13, 2022 Assessment & Plan (1) Metastatic colon cancer in female: (2) Closed fracture of proximal end of right femur: (3) Thyroid disorder: Plan Marie is a 72 y/o female with metastatic colon cancer (mets to lung and brain) who presented to the ER for hip pain. She was transferring from wheelchair to toilet when she felt a "pop", did not fall or hit head. She is currently on home hospice and per prior palliative care notes, her life expectancy is <1 month. Closed Fracture of Proximal End of Right Femur -X-ray: displaced and angulated subtrochanteric fracture of right proximal femur, "pathologic fracture cannot be excluded" -Dilaudid 1mg IV q 4 hours as needed for pain, Tylenol PRN -Phenergan and Zofran PRN nausea -Orthopedics consult: planning to operate for pain control, on schedule for tomorrow morning Metastatic Colon Cancer -Colon cancer dx 15+ yrs ago, recent diagnosis of mets to lung and brain -Currently on home hospice, lives with -Continue dexamethasone 4mg q6h Thyroid Disorder -Recent TSH 1.39 -Continue home dose levothyroxine Dispo: Med/surg Code: DNR/DNI, currently on home hospice Diet: Regular diet (easy to chew), will switch to NPO at midnight Admission and Anticipated Discharge Date Admission Date: November 13, 2022 Supervising Physician Co-Signing Physician Notes Resident Physician Supervision Note: I independently interviewed and examined the patient and verified the florian history and physical, reviewed labs and image studies and agree with resident findings and care plan. Subjective Patient was seen and examined at bedside. States pain is currently under control if she does not move. States she is still able to move her toes. Denies any difficulty with urination/bowel movements at this time. Denies any increased shortness of breath, chest pain, fever, chills, body aches. Review of Systems Review of Systems: As per HPI Physical Exam ENMT: external ear and nose normal, oropharynx normal Neck: trachea midline, no thyromegaly Respiratory: normal respiratory effort, on 3L NC Cardiovascular: RRR, no murmur, no edema Skin: no rashes, warm and dry Psychiatric: Affect: + tearful affect Results & Data Results & Data ([facility]) Vital Signs (Past 12 Hours) Vital Signs Temp Pulse Pulse Resp BP BP Pulse Ox 11/13/22 04:41 36.6 C 86 18 136/83 96 11/13/22 03:43 11/13/22 03:48 90 18 169/77 H 96 11/13/22 02:05 97 11/13/22 01:56 36.8 C 92 H 20 136/108 H 95 O2 Del Method O2 Flow Rate 11/13/22 04:41 Nasal Cannula 3 11/13/22 03:43 Nasal Cannula 3 11/13/22 03:48 Room Air 11/13/22 02:05 Room Air 11/13/22 01:56 Room Air Resident Activity Tracking Resident Involvement: Resident Care Provided Care Provided: Adult Hospital Medicine
[2022-11-13] MEDS: PROMETHAZINE HCL 6.25 MG in SODIUM CHLORIDE 0.9% 50 ML IV PRN (09:04)
[2022-11-13] MEDS: SENNA 8.6 MG TAB PO SCH (09:37)
[2022-11-13] MEDS: PANTOprazole 40 MG TAB PO SCH (09:44)
[2022-11-13] MEDS: OLANZapine ZYDIS 5 MG ORALLY DIS. TAB PO SCH ×2 (09:45→20:43)
[2022-11-13] MEDS: AMIODARONE 200 MG TAB PO SCH (10:04)
--- NOTE | 2022-11-13 10:06 | Orthopedic Consultation ---
Date of Service November 13, 2022 Assessment & Plan (1) Closed fracture of proximal end of right femur: 72-year-old female on palliative care for metastatic colon cancer admitted with a displaced and likely pathologic subtrochanteric femur fracture. Life expectancy may be a month or less. Patient desires comfort and potential return to walk. Surgical stabilization of this fracture is indicated for pain control. Had a prolonged discussion with the patient and her . She remained adamant that she makes her own medical decisions and strongly desires surgery for the benefit of improved pain with motion, transfers, and potentially walking. Her desires to go home comfortably. She does not wish to be treated with prolonged bedrest. We discussed the risks of fracture surgery in this case are significantly elevated due to her complex medical history, pulmonary function, and likely metastatic disease at the fracture site. Significant risks include but not limited to infection, neurovascular injury, significant blood loss requiring transfusion, cardiopulmonary complications, nonunion, malunion, symptomatic hardware, need for repeat or revision surgeries, delayed wound healing, potential for pain syndromes, failure to relieve pain, blood clots and complications related to anesthesia including . Her and her asked appropriate questions, demonstrated good understanding of the treatment and its alternatives, and at this time want to proceed with surgery. Informed consent was documented at the bedside. She has been n.p.o. since midnight. We will proceed with surgery today, pending the OR schedule. History of Present Illness Reason for Consultation: Right pathologic femur fracture Requesting Physician: . Attending Physician: Mel Cervantes MD 72-year-old female under palliative care for metastatic colon cancer admitted to the hospital after her leg gave way and she fell at home. She was diagnosed with a subtrochanteric region femur fracture with pathologic characteristics. She was recently discharged home from inpatient stay with for hemoptysis. Palliative care was set up metastatic disease to the brain. She is undergoing palliative radiation therapy. She is on high-dose steroids. Recent anticoagulation has been discontinued because of the hemoptysis. Palliative care notes from this month and for that life expectancy may be a month or less. Patient's came to the bedside as I was evaluating the patient. Patient reports significant pain in the femur if she moves at all. She feels that the hospitalist on a good job of the pain control. As long she is still she is comfortable. She is scared to move the leg. She would like something to be done to improve the pain, and potentially get out of bed again. She is aware of her palliative care situation, but would except surgery if they gave her the chance to be more comfortable and transfer out of bed. Her goal is to return home comfortably. Denies previous orthopedic surgery. Allergies Allergy/AdvReac Type Severity Reaction Status Date / Time diphtheria,pertussis Allergy Severe "Arm Verified 11/01/22 01:26 (acellular),te swelled [From Adacel(Tdap up," fever Adolesn/Adult)(PF)] irinotecan Allergy Severe perforations Verified 11/01/22 01:26 in bowel oxaliplatin Allergy Severe Anaphylaxis Verified 11/01/22 01:26 thiopental Allergy Intermediate INCREASED Verified 11/01/22 01:26 BLEEDING WITH WISDOM TEETH SURG anastrozole [From Arimidex] AdvReac Severe CAUSED Verified 11/01/22 01:26 INTERNAL BLEEDING meperidine AdvReac Mild N/V Verified 11/01/22 01:26 morphine AdvReac Mild N/V Verified 11/01/22 01:26 Home Medications Medication Instructions Recorded Confirmed Type pyridoxine (vitamin B6) 100 mg 100 mg PO QDL 10/12/20 11/13/22 History tablet (Vitamin B-6) simvastatin 20 mg tablet 20 mg PO QPM #90 tabs 01/26/22 11/13/22 Rx amiodarone 200 mg tablet 200 mg PO DAILY #90 tabs 06/28/22 11/13/22 Rx sertraline 50 mg tablet 50 mg PO HS #90 tabs 07/02/22 11/13/22 Rx omeprazole 40 mg capsule,delayed 40 mg PO QAM #90 caps 08/31/22 11/13/22 Rx release ondansetron 8 mg disintegrating 8 mg translingual Q8 PRN Nausea 09/07/22 11/13/22 History tablet diphenoxylate-atropine 2.5 2 tab PO .Q6-8 hr PRN Diarrhea 09/23/22 11/13/22 History mg-0.025 mg tablet (Lomotil) prednisolone acetate 1 % eye 1 drp ophthalmic (eye) DAILY 09/23/22 11/13/22 History drops,suspension prochlorperazine maleate 10 mg 10 mg PO Q6H PRN Nausea And 09/23/22 11/13/22 History tablet (Compazine) Vomiting dexamethasone 4 mg tablet 4 mg PO Q6 #30 tabs 11/05/22 11/13/22 Rx magnesium hydroxide 400 mg/5 mL 30 ml PO Q6H PRN constipation #1 mL 11/05/22 11/13/22 Rx oral suspension (Milk of Magnesia) olanzapine 5 mg disintegrating 5 mg PO BID #10 tabs 11/05/22 11/13/22 Rx tablet acetaminophen 325 mg tablet 650 mg PO Q4H PRN Fever Or Pain 11/13/22 11/13/22 History acetaminophen 650 mg rectal 650 mg [place] Q4 PRN Fever Or Pain 11/13/22 11/13/22 History suppository colestipol 1 gram tablet (Colestid) 1 g PO . ON HOLD 11/13/22 11/13/22 History hydromorphone 1 mg/mL oral liquid 1 mg PO .EVERY 2 HOURS PRN 11/13/22 11/13/22 History (Dilaudid) pain/dyspnea hyoscyamine sulfate 0.125 mg tablet 0.125 mg sublingual Q4 PRN 11/13/22 11/13/22 History terminal secretions ipratropium 0.5 mg-albuterol 3 mg 3 ml inhalation Q6 PRN Shortness 11/13/22 11/13/22 History (2.5 mg base)/3 mL nebulization Of Breath soln levothyroxine 125 mcg tablet 125 mcg PO DAILYBB 11/13/22 11/13/22 History lorazepam 1 mg tablet 0.5 mg PO Q4 PRN 11/13/22 11/13/22 History restlessness/insomnia lorazepam 1 mg tablet 2 mg sublingual .EVERY 15 MINUTES 11/13/22 11/13/22 History PRN Seizures multivitamin with minerals (Daily 1 tab PO DAILY 11/13/22 11/13/22 History Multivitamin-Minerals tablet) promethazine 25 mg tablet 25 mg PO Q6 PRN Nausea 11/13/22 11/13/22 History sennosides 8.6 mg tablet (senna) 8.6 - 17.2 mg PO DAILY 11/13/22 11/13/22 History Past Med/Surg History Medical History Abnormal CT scan of lung Acute GI bleeding Anemia Antineoplastic chemotherapy induced pancytopenia Asthma Atelectasis of right lung Bacteremia Bilateral pulmonary embolism hx of 2012--reason for eliquis daily (had pneumonia right before and pt states she was not moving much) Brain metastases Candidiasis of intestine Chemotherapy adverse reaction Chronic diastolic congestive heart failure Chronic respiratory failure with hypoxia Colon cancer metastasized to lung (09/18/08) Depression Diverticulosis of colon DVT, lower extremity left leg, same time as PE Elevated diaphragm Elevated lactic acid level Essential hypertension GERD (gastroesophageal reflux disease) GI bleed Gross hematuria Hemoptysis History of anesthesia reaction difficulty waking at times as well as hx of waking up during sx (woke up during port placement) History of chemotherapy History of gastric ulcer History of immunocompromised state History of pulmonary embolism History of pulmonary embolus (PE) History of radiation therapy Hypercholesterolemia Hyperlipidemia Hypertension Hypothyroidism Hypothyroidism Hypoxia Infection due to Port-A-Cath Iron deficiency anemia Morbid obesity with BMI of 40.0-44.9, adult Multiple pulmonary nodules Neutropenia On anticoagulant therapy eliquis daily On home oxygen therapy 2L N/C at hs VU (obstructive sleep apnea) Osteoarthritis Port-A-Cath in place Pulmonary mass Radiation pneumonitis Restrictive lung disease Seizures due to metabolic disorder x2-- one d/t medication anaphylaxis, and pt states second d/t low magnesium in 09/2019 Septicemia due to coagulase-negative staphylococcal infection Tachycardia Weakness Surgical History H/O: hysterectomy History of bilateral tubal ligation History of bladder suspension procedure History of bronchoscopy x2-3 History of cholecystectomy open 04/2020 History of colon surgery d/t colon cancer History of colonoscopy with polypectomy History of esophagogastroduodenoscopy (EGD) History of lobectomy of lung right upper lobe removed 06/[address] [facility] d/t colon cancer metastasis to lung History of lung surgery wedge resection of left lung d/t cancer History of radioactive iodine thyroid ablation History of removal of cyst off finger History of tonsillectomy History of vascular access device x2--A port in place right side of chest History of ventral hernia repair History of wisdom tooth extraction Status post cholecystectomy Family History Mother , early 80s of thyroid cancer Thyroid cancer Heart disease Family history of reaction to anesthesia at age 80, took 2 days to wake after thyroidectomy Father , age 81 of gangrene complications No problems noted. Uncle Colorectal cancer Sister Family history of diabetes mellitus Sister Family history of diabetes mellitus Brother Myocardial infarction Other Family history non-contributory Denies family history of Ovarian cancer Prostate cancer Breast cancer Social History Smoking Status: Never smoker Second Hand Exposure: Yes (father smoked); Hx Alcohol Use: No Hx Substance Use: No Preferred Language: Greenlandic Communication Ability: Effective Visual Impairment: No Limitations Hearing Ability: Normal Pulp Roller Required: No Beliefs That Will Affect Care: None marital status: / Current Living Situation: Spouse and Family Current Living Situation Comment: lives with and son in 1.5 story home with 1st floor set up current occupational status: retired 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 Physical Exam RLE: The skin overlying the thigh is intact without evidence of compromise. No significant edema in the muscle compartments. There is some obvious bowing deformity. The lower extremity is positioned comfortably with pillows under the knee and the ankle. Positive DF/PF/EHL. Sensation grossly intact to light touch. Nontender palpation along the leg and foot. Constitutional WD/WN, vitals as above Respiratory normal respiratory effort (With oxygen via nasal cannula); no respiratory distress Cardiovascular Extremities: normal capillary refill; no edema Chest (Breasts) Chest: normal inspection of chest (Medication port in place of the left chest) Skin no rashes, warm and dry Psychiatric A+Ox3, euthymic affect Results & Data Results & Data Laboratory Results H & H 11/13/22 Range/Units 02:00 Hgb 10.8 L (12.0-16.0) g/dl Hct 34.4 (34.1-44.9) % Coagulation 11/13/22 Range/Units 02:00 INR 1.1 (0.9-1.1) Diagnostic Findings Right hip/pelvis x-ray: Limited view of the femur shows a subtrochanteric fracture that is short oblique in nature and displaced. Femur x-ray: Pending, needed before surgery PG Care Time/CCT Total # of Minutes Spent Total Time Spent with Patient: Total time spent is greater than 50% in coordination of care (as documented) at patient's floor/unit and/or counseling patient: Coding Level of Care Code 05109 Inpt Consult Level 4 (57 - DECISION FOR SURGERY) Diagnoses Closed fracture of proximal end of right femur S72.001A
--- NOTE | 2022-11-13 11:01 | XRay Report ---
RIGHT FEMUR 2 VIEWS CLINICAL HISTORY: Femoral fracture. FINDINGS: AP and crosstable lateral views of the right femur are correlated with radiograph is of the right hip performed earlier the same day 11/13/2022. The skeletal structures are osteopenic. There i s increasing angulation and angulated overriding of a subtrochanteric fracture of the right proximal femur. Ill-defined lucency at the fracture site is unchanged and could represent a pathologic fractur e. Overlying soft tissue edema is noted. The distal right femur is intact, as is the visualized right hemipelvis. The hip and knee joints are grossly maintained. IMPRESSION: 1. Increasing angulation and overriding of a subtrochanteric fracture of the right proximal femur. 2. There is ill-defined lucency at the fracture site such that pathologic fracture is not excluded. Electronically signed by: Isai Antoine M.D. 11/13/2022 10:59 AM
[2022-11-13] MEDS: prednisoLONE acetate 1% OP SUSP 5 ML BTL OP SCH (11:04)
[2022-11-13] MEDS: SERTRALINE HCL 50 MG TABLET PO SCH (20:43)
[2022-11-13] MEDS: SIMVASTATIN 20 MG TAB PO SCH (20:43)
[2022-11-14] MEDS: HEPARIN 100 UNIT/ML 5ML FLUSH FLUSH PRN ×3 (01:59→15:01)
[2022-11-14] MEDS: LEVOTHYROXINE SODIUM 125 MCG TABLET PO SCH (05:47)
[2022-11-14] MEDS: dexAMETHasone 4 MG TAB PO SCH ×4 (05:47→23:55)
[2022-11-14 05:56] LABS: Basophils # (auto) 0.01 K/uL (0-0.2); Basophils % (auto) 0.1 %; Hemoglobin 10.1 g/dl (12.0-16.0); Immature Granulocytes # (auto) 0.23 K/uL (0.00-0.02); Lymphocytes # (auto) 0.34 K/uL (1.2-3.4); Lymphocytes % (auto) 2.9 %; Mean Corpuscular Hemoglobin 32.8 pg (25.0-34.0); Mean Corpuscular Hgb Conc 32.6 g/dL (32.0-36.0); Mean Corpuscular Volume 100.6 fL (80.0-100.0); Mean Platelet Volume 10.6 fL (9.4-12.3); Monocytes # (auto) 0.59 K/uL (0.24-0.82); Monocytes % (auto) 5.1 %; Neutrophils % (auto) 89.9 %; Platelet Count 108 K/uL (130-400); RDW Coefficient of Variation 17.5 % (11.5-14.5); RDW Standard Deviation 65.8 fL (36.4-46.3); Red Blood Count 3.08 M/uL (3.93-5.22); White Blood Count 11.67 K/ul (4.8-10.8)
[2022-11-14 06:45] LABS: BUN Creatinine Ratio 44.2 (10-20); Calcium 7.6 mg/dl (8.5-10.1); Creatinine Clr Calc Pharmacy 74.4 ml/min; Est GFR (African American) 79.3 ml/min; Est GFR (Non-African American) 68.4 ml/min; Potassium 4.8 mmol/L (3.5-5.1)
--- NOTE | 2022-11-14 07:04 | Hospitalist Progress Note ---
Date of Service November 14, 2022 Assessment & Plan (1) Metastatic colon cancer in female: (2) Closed fracture of proximal end of right femur: (3) Thyroid disorder: Plan Marie is a 72 y/o female with metastatic colon cancer (mets to lung and brain) who presented to the ER for hip pain. She was transferring from wheelchair to toilet when she felt a "pop", did not fall or hit head. She is currently on home hospice and per prior palliative care notes, her life expectancy is <1 month. Closed Fracture of Proximal End of Right Femur -X-ray: displaced and angulated subtrochanteric fracture of right proximal femur, "pathologic fracture cannot be excluded" -Dilaudid 1mg IV q 4 hours as needed for pain, Tylenol PRN -Phenergan and Zofran PRN nausea -Orthopedics consult: cancelled surgery this morning for concern of risks associated with anesthesia/brain mets. Neurology consulted, evaluated patient and feel that she can tolerate anesthesia from an ICP perspective. Ortho states could consider surgery later in the week when full staff available and after further consideration from anesthesia team. Do not feel that transfer would offer significant benefit. -Will await further recommendations from orthopedics/anesthesia Metastatic Colon Cancer -Colon cancer dx 15+ yrs ago, recent diagnosis of mets to lung and brain -Currently on home hospice, lives with -Continue dexamethasone 4mg q6h Thyroid Disorder -Recent TSH 1.39 -Continue home dose levothyroxine Dispo: Med/surg Code: DNR/DNI, currently on home hospice Diet: Regular diet (easy to chew) Admission and Anticipated Discharge Date Admission Date: November 13, 2022 Supervising Physician Co-Signing Physician Notes Resident Physician Supervision Note: I independently interviewed and examined the patient and verified the florian history and physical, reviewed labs and image studies and agree with resident findings and care plan. Subjective Patient seen and examined at bedside. Patient tearful during encounter, at bedside. States orthopedics just cancelled the surgery, feels it is too risky for her to be under anesthesia. Patient is understandably upset, is asking about other options, transfer, etc. Is having some increased pain this morning as she has not had her pain med yet. Denies pain anywhere else (besides right hip and knee), has no other complaints at this time. Review of Systems Review of Systems: As per HPI Physical Exam ENMT: external ear and nose normal, oropharynx normal Neck: trachea midline, no thyromegaly Respiratory: diminished lung sounds, on supplemental oxygen Cardiovascular: RRR, no murmur, no edema Skin: no rashes, warm and dry Psychiatric: Affect: + tearful affect Results & Data Results & Data ([facility]) Vital Signs (Past 12 Hours) Vital Signs Temp Pulse Resp BP Pulse Ox O2 Del Method O2 Flow Rate 11/13/22 20:35 Nasal Cannula 3 11/13/22 22:35 36.8 C 81 18 151/84 H 99 Nasal Cannula 3 Resident Activity Tracking Resident Involvement: Resident Care Provided Care Provided: Adult Hospital Medicine
--- NOTE | 2022-11-14 08:53 | Orthopedic Progress Note ---
Date of Service November 14, 2022 Assessment & Plan (1) Closed fracture of proximal end of right femur: Subtrochanteric femur fracture, likely pathologic in the setting of palliative care for metastatic colon cancer. Nonsurgical options are extremely limited to bedrest and pain control. Skeletal or Mueller's traction likely only increase risk of skin complications and does not help with transfers. It is probably better to position and reposition as needed with nursing. IV pain control as needed. Consider pain management. Surgical options remain her best alternative for pain control but anesthesia options are limited. She is a high risk for endotracheal intubation, and her intracranial pressure is likely elevated based on the parenchymal edema. Anesthesia has been consulted and has discussed this with the family. At this point, would be a high risk anesthetic endeavor, and it was probably better to do this on a fully staffed day. We will postpone surgery for today. Obtain neurology consult to help better understand intracranial pressure and risk of a spinal anesthetic. Perhaps advanced imaging may help. Potential surgery this week depending on the patient's desires and further consultation with the anesthesia team. I defer to anesthesia as to whether transferring to a tertiary care facility would improve her situation. Subjective Since yesterday, her preoperative valuation by the anesthesia team revealed several difficulties with keeping her safe. These were relayed to her and her by the anesthesiologist. After spending time yesterday thinking about it, her and her remain certain that they would like to proceed with something, despite the risks. She says the pain would be intolerable for any transfers, and bed rest is not something she is interested in for the remainder of her life. They asked about if transferring to another facility would be better. I stated her situation probably would not be improved by a tertiary center. Review of Systems All systems reviewed & are unremarkable except as noted in HPI & below. Physical Exam Right lower extremity: Exam is unchanged. He is neurovascular intact. Position comfortably on the bed. Constitutional no acute distress and not intoxicated appearing Respiratory normal respiratory effort (With 3 L nasal cannula); no labored breathing Cardiovascular Extremities: normal capillary refill Psychiatric Orientation: alert and oriented x 3 Eye Contact: good eye contact Tearful at times when considering her options Results & Data Results & Data Laboratory Results . Diagnostic Findings . PG Care Time/CCT Total # of Minutes Spent Total Time Spent with Patient: Total time spent is greater than 50% in coordination of care (as documented) at patient's floor/unit and/or counseling patient: Coding Level of Care Code 00161 Subseq Hosp Care Lvl 3 Diagnoses Closed fracture of proximal end of right femur S72.001A
[2022-11-14] MEDS: OLANZapine ZYDIS 5 MG ORALLY DIS. TAB PO SCH ×2 (09:08→20:13)
[2022-11-14] MEDS: PANTOprazole 40 MG TAB PO SCH (09:10)
[2022-11-14] MEDS: SENNA 8.6 MG TAB PO SCH (09:10)
[2022-11-14] MEDS: prednisoLONE acetate 1% OP SUSP 5 ML BTL OP SCH (09:11)
[2022-11-14] MEDS: HYDROmorphone INJ 1 MG/ML SYRINGE IV PRN ×3 (09:16→21:57)
--- NOTE | 2022-11-14 10:31 | Neurology Consultation ---
Date of Consultation November 14, 2022 Assessment & Plan (1) Metastatic colon cancer in female: Plan Neurology Consultation Assessment: pt with s/p fall and rt femur fx. pt with known mets to brain. mri brain reviewed and does have mass lesion with edema but appears stable and not concern for ICP issue based on image and pt exam. Recommendations: -from neurology stand point, no issues with pt having orthopedic surgery for her fx. not concern for ICP issue at this point. call again if new question. HPI: pt with rt femur fx. orthopedic asked me to eval for surgical concern for ICP issue due to pt having mets to brain. mri brain reviewed. pt this morning doing well and stable. no focal deficits from the brain lesions. Admission/prior HPI note: Marie Bee is a 72yo female with history of metastatic colon cancer with metastases to lung and brain presenting with right proximal femur fracture. Patient was transferring from her wheelchair to the commode when she felt a pop in her right hip. She then experienced pain and fell. She denies additional complaints - no fever, chills, chest pain, palpitations, abdominal pain, nausea, vomiting, diarrhea or constipation. No urinary complaints. She has stable baseline SOB. Otherwise, no complaints. ROS: per HPI Med list: see chart PMHx/SHx: see chart Neuro Exam: Mental: AOx3, Fluent speech, normal comprehension, no apraxia, no neglect. CN: PERRL, Full EOM, symmetric face, tongue midline. SCM/Traps 5/5 Motor: 5/5 t/o symmetric bilaterally except didn't test rt leg. Normal tone and bulk. No abnormal movements. Sens: intact to touch b/l Coord: intact Total time spent: 80 min. This includes time spent educating patient about medical condition and coordination of care (also including time spent on chart reviewing and documentation). History of Present Illness Attending Physician: Mel Cervantes MD Allergies Allergy/AdvReac Type Severity Reaction Status Date / Time diphtheria,pertussis Allergy Severe "Arm Verified 11/01/22 01:26 (acellular),te swelled [From Adacel(Tdap up," fever Adolesn/Adult)(PF)] irinotecan Allergy Severe perforations Verified 11/01/22 01:26 in bowel oxaliplatin Allergy Severe Anaphylaxis Verified 11/01/22 01:26 thiopental Allergy Intermediate INCREASED Verified 11/01/22 01:26 BLEEDING WITH WISDOM TEETH SURG anastrozole [From Arimidex] AdvReac Severe CAUSED Verified 11/01/22 01:26 INTERNAL BLEEDING meperidine AdvReac Mild N/V Verified 11/01/22 01:26 morphine AdvReac Mild N/V Verified 11/01/22 01:26 Home Medications Medication Instructions Recorded Confirmed Type pyridoxine (vitamin B6) 100 mg 100 mg PO QDL 10/12/20 11/13/22 History tablet (Vitamin B-6) simvastatin 20 mg tablet 20 mg PO QPM #90 tabs 01/26/22 11/13/22 Rx amiodarone 200 mg tablet 200 mg PO DAILY #90 tabs 06/28/22 11/13/22 Rx sertraline 50 mg tablet 50 mg PO HS #90 tabs 07/02/22 11/13/22 Rx omeprazole 40 mg capsule,delayed 40 mg PO QAM #90 caps 08/31/22 11/13/22 Rx release ondansetron 8 mg disintegrating 8 mg translingual Q8 PRN Nausea 09/07/22 11/13/22 History tablet diphenoxylate-atropine 2.5 2 tab PO .Q6-8 hr PRN Diarrhea 09/23/22 11/13/22 History mg-0.025 mg tablet (Lomotil) prednisolone acetate 1 % eye 1 drp ophthalmic (eye) DAILY 09/23/22 11/13/22 H istory drops,suspension prochlorperazine maleate 10 mg 10 mg PO Q6H PRN Nausea And 09/23/22 11/13/22 History tablet (Compazine) Vomiting dexamethasone 4 mg tablet 4 mg PO Q6 #30 tabs 11/05/22 11/13/22 Rx magnesium hydroxide 400 mg/5 mL 30 ml PO Q6H PRN constipation #1 mL 11/05/22 11/13/22 Rx oral suspension (Milk of Magnesia) olanzapine 5 mg disintegrating 5 mg PO BID #10 tabs 11/05/22 11/13/22 Rx tablet acetaminophen 325 mg tablet 650 mg PO Q4H PRN Fever Or Pain 11/13/22 11/13/22 History acetaminophen 650 mg rectal 650 mg [place] Q4 PRN Fever Or Pain 11/13/22 11/13/22 History suppository colestipol 1 gram tablet (Colestid) 1 g PO . ON HOLD 11/13/22 11/13/22 History hydromorphone 1 mg/mL oral liquid 1 mg PO .EVERY 2 HOURS PRN 11/13/22 11/13/22 History (Dilaudid) pain/dyspnea hyoscyamine sulfate 0.125 mg tablet 0.125 mg sublingual Q4 PRN 11/13/22 11/13/22 History terminal secretions ipratropium 0.5 mg-albuterol 3 mg 3 ml inhalation Q6 PRN Shortness 11/13/22 11/13/22 History (2.5 mg base)/3 mL nebulization Of Breath soln levothyroxine 125 mcg tablet 125 mcg PO DAILYBB 11/13/22 11/13/22 History lorazepam 1 mg tablet 0.5 mg PO Q4 PRN 11/13/22 11/13/22 History restlessness/insomnia lorazepam 1 mg tablet 2 mg sublingual .EVERY 15 MINUTES 11/13/22 11/13/22 History PRN Seizures multivitamin with minerals (Daily 1 tab PO DAILY 11/13/22 11/13/22 History Multivitamin-Minerals tablet) promethazine 25 mg tablet 25 mg PO Q6 PRN Nausea 11/13/22 11/13/22 History sennosides 8.6 mg tablet (senna) 8.6 - 17.2 mg PO DAILY 11/13/22 11/13/22 History Patient History Medical History Abnormal CT scan of lung Acute GI bleeding Anemia Antineoplastic chemotherapy induced pancytopenia Asthma Atelectasis of right lung Bacteremia Bilateral pulmonary embolism hx of 2012--reason for eliquis daily (had pneumonia right before and pt states she was not moving much) Brain metastases Candidiasis of intestine Chemotherapy adverse reaction Chronic diastolic congestive heart failure Chronic respiratory failure with hypoxia Colon cancer metastasized to lung (09/18/08) Depression Diverticulosis of colon DVT, lower extremity left leg, same time as PE Elevated diaphragm Elevated lactic acid level Essential hypertension GERD (gastroesophageal reflux disease) GI bleed Gross hematuria Hemoptysis History of anesthesia reaction difficulty waking at times as well as hx of waking up during sx (woke up dur ing port placement) History of chemotherapy History of gastric ulcer History of immunocompromised state History of pulmonary embolism History of pulmonary embolus (PE) History of radiation therapy Hypercholesterolemia Hyperlipidemia Hypertension Hypothyroidism Hypothyroidism Hypoxia Infection due to Port-A-Cath Iron deficiency anemia Morbid obesity with BMI of 40.0-44.9, adult Multiple pulmonary nodules Neutropenia On anticoagulant therapy eliquis daily On home oxygen therapy 2L N/C at hs VU (obstructive sleep apnea) Osteoarthritis Port-A-Cath in place Pulmonary mass Radiation pneumonitis Restrictive lung disease Seizures due to metabolic disorder x2-- one d/t medication anaphylaxis, and pt states second d/t low magnesium in 09/2019 Septicemia due to coagulase-negative staphylococcal infection Tachycardia Weakness Surgical History H/O: hysterectomy History of bilateral tubal ligation History of bladder suspension procedure History of bronchoscopy x2-3 History of cholecystectomy open 04/2020 History of colon surgery d/t colon cancer History of colonoscopy with polypectomy History of esophagogastroduodenoscopy (EGD) History of lobectomy of lung right upper lobe removed 06/2008 @ [facility] d/t colon cancer metastasis to lung History of lung surgery wedge resection of left lung d/t cancer History of radioactive iodine thyroid ablation History of removal of cyst off finger History of tonsillectomy History of vascular access device x2--A port in place right side of chest History of ventral hernia repair History of wisdom tooth extraction Status post cholecystectomy Family History Mother , early 80s of thyroid cancer Thyroid cancer Heart disease Family history of reaction to anesthesia at age 80, took 2 days to wake after thyroidectomy Father , age 81 of gangrene complications No problems noted. 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 Beliefs That Will Affect Care: None marital status: / Current Living Situation: Spouse and Family Current Living Situation Comment: lives with and son in 1.5 story home with 1st floor set up current occupational status: retired 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 [employer] How many Children do You have: 1 other: 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
--- NOTE | 2022-11-14 11:36 | Communication Note ---
Date of Service: November 14, 2022 i was asked to see the patient on 11/13 to d/w her the risk of anesthesia in her situation. her was present. Pt has a hip fracture that needs surgical repair, but she has metastatic colon cancer. Pt was d/x with cerebral mets with cerebral edema by mri ~ 1 week ago. high dose steroids were started. no midline shifts were noted. The two overeaching concerns for anesthesia are the brain mets and the patient is only able to ventilate 1 lung. Many anesthesia techniques cause a rise in ICP. A temporary rise in icp is common during intu bation for a general anesthesia. The process to limit or negate any rise in ICP during intubation would be hampered by her pulmonary situation. pt is requiring supplemental O2 and on past blood gases, she was showing an elevated CO2. elevated CO2 leads to increased ICP. One lung ventilation generally leads to hypercapnia. Pt also has an increased risk for not being extubated post procedure or ever because of her overall poor prognosis. Finally, unless we can establish that the cerebral edema has not worsened and increased her ICP, we cannot safely do neuraxial anesthesia. I spoke in length to the patient and her . I answered their questions. I was told today that they had asked for a transfer to another facility. [facility] anesthesia is able to provide the types of anesthesia the other facilities can provide for this. I feel other anesthesia departments would still consider her a very poor candidate for anesthesia and may refuse to do her case. The only advantages of a [facility] is their advanced ICU to provide usp care.
[2022-11-14] MEDS: AMIODARONE 200 MG TAB PO SCH (12:38)
[2022-11-14] MEDS: SERTRALINE HCL 50 MG TABLET PO SCH (20:13)
[2022-11-14] MEDS: SIMVASTATIN 20 MG TAB PO SCH (20:13)
[2022-11-15] MEDS: LEVOTHYROXINE SODIUM 125 MCG TABLET PO SCH (06:23)
[2022-11-15] MEDS: dexAMETHasone 4 MG TAB PO SCH ×3 (06:23→18:07)
[2022-11-15] MEDS: ACETAMINOPHEN 325 MG TAB PO PRN (06:26)
--- NOTE | 2022-11-15 06:48 | Hospitalist Progress Note ---
Date of Service November 15, 2022 Assessment & Plan (1) Metastatic colon cancer in female: (2) Closed fracture of proximal end of right femur: (3) Thyroid disorder: Plan Marie is a 72 y/o female with metastatic colon cancer (mets to lung and brain) who presented to the ER for hip pain. She was transferring from wheelchair to toilet when she felt a "pop", did not fall or hit head. She is currently on home hospice and per prior palliative care notes, her life expectancy is <1 month. Closed Fracture of Proximal End of Right Femur -X-ray: displaced and angulated subtrochanteric fracture of right proximal femur, "pathologic fracture cannot be excluded" -Dilaudid 1mg IV q 4 hours as needed for pain, Tylenol PRN -Phenergan and Zofran PRN nausea -Orthopedics consult: cancelled surgery yesterday for concern of risks associated with anesthesia/brain mets. Neurology consulted, evaluated patient and feel that she can tolerate anesthesia from an ICP perspective. Per anesthesia, at this point hoping for surgery tomorrow afternoon. Metastatic Colon Cancer -Colon cancer dx 15+ yrs ago, recent diagnosis of mets to lung and brain -Currently on home hospice, lives with -Continue dexamethasone 4mg q6h Thyroid Disorder -Recent TSH 1.39 -Continue home dose levothyroxine Dispo: Med/surg Code: DNR/DNI, currently on home hospice Diet: Regular diet (easy to chew) Admission and Anticipated Discharge Date Admission Date: November 13, 2022 Supervising Physician Co-Signing Physician Notes I personally examined the patient and verified all florian points of history and exam, discussed case, and agree with decision making with Dr Barragan. Has a decent amount of pain with just about any movement. Wants to proceed with surgery, understands risks. Discussed with anesthesia and surgery. Input appreciated. Vitals noted, in general she is awake and alert pleasant no distress. HEENT normocephalic atraumatic mucous membranes moist. Breathing unlabored no accessory muscle use good effort. Skin shows no rashes no pallor or icterus. Neuro without focal deficits. Femur fractureprobably pathologic given her lack of trauma. If not pathologic then definitely severe osteoporosis, but with the known metastatic cancer and more concerned about pathologic. Either waypain uncontrolled. For operative fixation tomorrow. Continue pain control. Otherwise as above. Subjective Patient seen and examined at bedside. Had some increased pain overnight, but more comfortable this morning. Tolerating food without issue. Patient and still eager to have surgery performed to help with pain control. Denies increased shortness of breath, chest pain, chills or fever. Review of Systems Review of Systems: As per HPI Physical Exam ENMT: external ear and nose normal, oropharynx normal Neck: trachea midline, no thyromegaly Respiratory: No increased work of breathing, 3 L NC Cardiovascular: RRR, no murmur, no edema Skin: no rashes, warm and dry Psychiatric: Affect: + tearful affect Results & Data Results & Data ([facility]) Vital Signs (Past 12 Hours) Vital Signs Temp Pulse Resp BP Pulse Ox O2 Del Method O2 Flow Rate 11/14/22 19:30 Nasal Cannula 3 11/14/22 22:09 36.6 C 89 18 130/73 98 Nasal Cannula Resident Activity Tracking Resident Involvement: Resident Care Provided Care Provided: Adult Hospital Medicine
[2022-11-15] MEDS: HYDROmorphone INJ 1 MG/ML SYRINGE IV PRN ×2 (08:10→18:09)
[2022-11-15] MEDS: HEPARIN 100 UNIT/ML 5ML FLUSH FLUSH PRN ×2 (08:11→18:10)
[2022-11-15 08:49] LABS: Hematocrit (blood only) 32.6 % (34.1-44.9); Hemoglobin 10.6 g/dl (12.0-16.0); Mean Corpuscular Hemoglobin 32.9 pg (25.0-34.0); Mean Corpuscular Hgb Conc 32.5 g/dL (32.0-36.0); Mean Corpuscular Volume 101.2 fL (80.0-100.0); Mean Platelet Volume 10.6 fL (9.4-12.3); Platelet Count 102 K/uL (130-400); RDW Coefficient of Variation 17.5 % (11.5-14.5); RDW Standard Deviation 65.1 fL (36.4-46.3); Red Blood Count 3.22 M/uL (3.93-5.22); White Blood Count 16.29 K/ul (4.8-10.8)
[2022-11-15] MEDS: OLANZapine ZYDIS 5 MG ORALLY DIS. TAB PO SCH ×2 (08:59→20:12)
[2022-11-15] MEDS: AMIODARONE 200 MG TAB PO SCH (08:59)
[2022-11-15] MEDS: PANTOprazole 40 MG TAB PO SCH (08:59)
[2022-11-15] MEDS: SENNA 8.6 MG TAB PO SCH (09:00)
[2022-11-15] MEDS: prednisoLONE acetate 1% OP SUSP 5 ML BTL OP SCH (09:00)
[2022-11-15 09:20] LABS: Basophilic Stippling 1+; Basophils # (auto) 0.03 K/uL (0-0.2); Basophils % (auto) 0.2 %; Immature Granulocytes # (auto) 0.39 K/uL (0.00-0.02); Immature Granulocytes % (auto) 2.4 %; Lymphocytes # (auto) 0.29 K/uL (1.2-3.4); Lymphocytes % (auto) 1.8 %; Monocytes # (auto) 0.78 K/uL (0.24-0.82); Monocytes % (auto) 4.8 %; Neutrophils % (auto) 90.8 %; Ovalocytes 1+; Polychromasia 1+; Tear Drop Cells 1+
[2022-11-15 09:22] LABS: BUN Creatinine Ratio 46.8 (10-20); Calcium 7.8 mg/dl (8.5-10.1); Est GFR (African American) 71.2 ml/min; Est GFR (Non-African American) 61.5 ml/min; Potassium 5.1 mmol/L (3.5-5.1)
--- NOTE | 2022-11-15 19:45 | Communication Note ---
Date of Service: November 15, 2022 Spoke extensively with the patient with family at bedside regarding proposed surgery, particularly the anesthetic risks. The patient is currently bed bound and in moderate pain from her fracture. She understands that her life expectancy from her metastatic disease is not long. Still, she is very intent to undergo surgery to stabilize her femur fracture so that she can hopefully transfer out of bed. Anesthetic options for this include spinal versus general anesthesia. I did discuss with the patient that with her existing comorbid metastatic disease and her pneumonectomy, she may be unable to wean from the vent post operatively under general anesthesia. Neurology has evaluated her MRI and feels that intracranial pressure is not elevated, so spinal anesthetic with light sedation was also discussed as an option. The patient is understanding that she may have to be somewhat awake under a spinal anesthetic. She did ask if a transfer to tertiary care would be helpful, but unless there is an alternative surgical approach that cannot be performed here, I do not feel that she has much to gain by transferring facilities. The patient is high risk for any anesthetic or surgical procedure, however the alternative to operating is to remain bedbound in the face of her already poor medical prognosis. Verbalizing an understanding of these risks, and having the chance to ask questions, the patient would like to proceed with surgery. We will try to coordinate her surgery for tomorrow afternoon.
[2022-11-15] MEDS: SERTRALINE HCL 50 MG TABLET PO SCH (20:12)
[2022-11-15] MEDS: SIMVASTATIN 20 MG TAB PO SCH (20:12)
--- NOTE | 2022-11-15 20:38 | Billing Data ---
Date of Service November 15, 2022 Coding Level of Care Code 33703 Subseq Hosp Care Lvl 3
[2022-11-16] MEDS: dexAMETHasone 4 MG TAB PO SCH ×4 (00:42→17:42)
[2022-11-16] MEDS: LEVOTHYROXINE SODIUM 125 MCG TABLET PO SCH (05:43)
--- NOTE | 2022-11-16 07:19 | Orthopedic Progress Note ---
Date of Service November 16, 2022 Assessment & Plan (1) Closed fracture of proximal end of right femur: Subtrochanteric femur fracture, likely pathologic in the setting of palliative care for metastatic colon cancer. Nonsurgical options are extremely limited to bedrest and pain control. Intramedullary nail remain her best alternative for pain control but anesthesia options are limited. This is considered a palliative nail to allow her to get comfortably to a chair and potentially stand or even walk. I reiterated that she is a high risk for endotracheal intubation. Her brain involvement may increase intracranial pressure and complicates spinal anesthetic as well. [place] the discussion for the risks of anesthesia to the anesthesiologists, but the fact that she remains a high risk candidate is unable to be changed. She is determined to proceed to gain some comfort for mobilization. I support the decision. She seems to understand the risks. Informed consent remains from Tuesday. We will proceed today pending anesthesia evaluation and decisions with her. Subjective Seen late last evening. Family had just left the bedside. She reports she continues to have significant pain with any attempted movement. She is pretty determined to have some resolution but allow her to sit up or even stand. Her goal is to go home. Review of Systems All systems reviewed & are unremarkable except as noted in HPI & below. Physical Exam RLE: Exam unchanged. Neurovascular intact. No skin compromise. Position with pillows. Constitutional no acute distress and not intoxicated appearing Respiratory normal respiratory effort (With 3 L nasal cannula); no labored breathing Cardiovascular Extremities: normal capillary refill Psychiatric Orientation: alert and oriented x 3 Eye Contact: good eye contact Results & Data Results & Data Laboratory Results . Diagnostic Findings . PG Care Time/CCT Total # of Minutes Spent Total Time Spent with Patient: Total time spent is greater than 50% in coordination of care (as documented) at patient's floor/unit and/or counseling patient: Coding Level of Care Code 20615 Subseq Hosp Care Lvl 3 Diagnoses Closed fracture of proximal end of right femur S72.001A
--- NOTE | 2022-11-16 07:21 | Hospitalist Progress Note ---
Date of Service November 16, 2022 Assessment & Plan (1) Metastatic colon cancer in female: (2) Closed fracture of proximal end of right femur: (3) Thyroid disorder: Plan Marie is a 72 y/o female with metastatic colon cancer (mets to lung and brain) who presented to the ER for hip pain. She was transferring from wheelchair to toilet when she felt a "pop", did not fall or hit head. She is currently on home hospice and per prior palliative care notes, her life expectancy is <1 month. Closed Fracture of Proximal End of Right Femur -X-ray: displaced and angulated subtrochanteric fracture of right proximal femur, "pathologic fracture cannot be excluded" -Dilaudid 1mg IV q 4 hours as needed for pain, Tylenol PRN -Phenergan and Zofran PRN nausea -Orthopedics consult: plan to proceed with surgery this afternoon Metastatic Colon Cancer -Colon cancer dx 15+ yrs ago, recent diagnosis of mets to lung and brain -Currently on home hospice, lives with -Continue dexamethasone 4mg q6h Thyroid Disorder -Recent TSH 1.39 -Continue home dose levothyroxine Dispo: Med/surg Code: DNR/DNI, currently on home hospice Diet: Regular diet (easy to chew) Admission and Anticipated Discharge Date Admission Date: November 13, 2022 Supervising Physician Co-Signing Physician Notes I personally examined the patient and verified all florian points of history and exam, discussed case, and agree with decision making with Dr Barragan. Pain reasonably controlled at the current time. Anxious to get surgery done. Vitals noted, in general she is awake and alert pleasant no distress. HEENT normocephalic atraumatic mucous membranes moist. Breathing unlabored no accessory muscle use good effort. Skin shows no rashes no pallor or icterus. Neuro without focal deficits. Femur fractureprobably pathologic given her lack of trauma. If not pathologic then definitely severe osteoporosis, but with the known metastatic cancer and more concerned about pathologic. For operative fixation todaypredominantly for pain control. Radiation oncology updated. Subjective Patient seen and examined at bedside. at bedside. Plan to proceed with surgery later this afternoon with plan to eventually return home on hospice. No acute events overnight. Review of Systems Review of Systems: As per HPI Physical Exam Constitutional: WD/WN, vitals as above ENMT: external ear and nose normal, oropharynx normal Neck: trachea midline, no thyromegaly Cardiovascular: RRR, no murmur, no edema Skin: no rashes, warm and dry Psychiatric: A+Ox3, euthymic affect Results & Data Results & Data ([facility]) Vital Signs (Past 12 Hours) Vital Signs Temp Pulse Resp BP Pulse Ox O2 Del Method O2 Flow Rate 11/15/22 19:30 Nasal Cannula 3 11/15/22 19:56 36.7 C 98 H 18 121/70 96 Nasal Cannula Resident Activity Tracking Resident Involvement: Resident Care Provided Care Provided: Adult Hospital Medicine
[2022-11-16] MEDS: HYDROmorphone INJ 1 MG/ML SYRINGE IV PRN ×2 (07:28→11:55)
[2022-11-16] MEDS: HEPARIN 100 UNIT/ML 5ML FLUSH FLUSH PRN ×2 (07:29→11:55)
[2022-11-16] MEDS: prednisoLONE acetate 1% OP SUSP 5 ML BTL OP SCH (07:32)
[2022-11-16] MEDS: SENNA 8.6 MG TAB PO SCH (07:33)
[2022-11-16] MEDS: PANTOprazole 40 MG TAB PO SCH (08:57)
[2022-11-16] MEDS: AMIODARONE 200 MG TAB PO SCH (08:57)
[2022-11-16] MEDS: OLANZapine ZYDIS 5 MG ORALLY DIS. TAB PO SCH ×2 (08:57→21:03)
[2022-11-16 10:37] LABS: BUN Creatinine Ratio 51.9 (10-20); Calcium 8.4 mg/dl (8.5-10.1); Est GFR (African American) 87.9 ml/min; Est GFR (Non-African American) 75.8 ml/min; Potassium 5.1 mmol/L (3.5-5.1)
[2022-11-16 10:57] LABS: Basophils # (auto) 0.03 K/uL (0-0.2); Basophils % (auto) 0.2 %; Hematocrit (blood only) 32.1 % (34.1-44.9); Hemoglobin 10.3 g/dl (12.0-16.0); Immature Granulocytes # (auto) 0.24 K/uL (0.00-0.02); Immature Granulocytes % (auto) 1.4 %; Lymphocytes # (auto) 0.29 K/uL (1.2-3.4); Lymphocytes % (auto) 1.7 %; Mean Corpuscular Hemoglobin 31.8 pg (25.0-34.0); Mean Corpuscular Hgb Conc 32.1 g/dL (32.0-36.0); Mean Corpuscular Volume 99.1 fL (80.0-100.0); Mean Platelet Volume 10.4 fL (9.4-12.3); Monocytes # (auto) 0.61 K/uL (0.24-0.82); Monocytes % (auto) 3.5 %; Neutrophils # (auto) 16.17 K/uL (1.4-6.5); Neutrophils % (auto) 93.2 %; Platelet Count 89 K/uL (130-400); Platelet Estimate Decreased (Normal); RDW Coefficient of Variation 17.6 % (11.5-14.5); RDW Standard Deviation 64.8 fL (36.4-46.3); Red Blood Count 3.24 M/uL (3.93-5.22); White Blood Count 17.34 K/ul (4.8-10.8)
--- NOTE | 2022-11-16 11:39 | Anesthesiology Consultation ---
Date of Service November 16, 2022 Assessment & Plan (1) Encounter for pre-operative examination: Chart Review Chart Review: Acceptable Risk for Surgery (hig risk palliative procedure (patient aware)) History Surgery Operation Date: 11/14/22 07:30 Proposed Procedures p Open Reduction Internal Fixation Femur(Right) - Kd Barbour MD Operation Date: 11/16/22 07:00 Proposed Procedures p Right Long IM Nail - Kd Barbour MD Height/Weight Height: 5 ft 5 in Weight: 108 kg Allergies Allergy/AdvReac Type Severity Reaction Status Date / Time diphtheria,pertussis Allergy Severe "Arm Verified 11/01/22 01:26 (acellular),te swelled [From Adacel(Tdap up," fever Adolesn/Adult)(PF)] irinotecan Allergy Severe perforations Verified 11/01/22 01:26 in bowel oxaliplatin Allergy Severe Anaphylaxis Verified 11/01/22 01:26 thiopental Allergy Intermediate INCREASED Verified 11/01/22 01:26 BLEEDING WITH WISDOM TEETH SURG anastrozole [From Arimidex] AdvReac Severe CAUSED Verified 11/01/22 01:26 INTERNAL BLEEDING meperidine AdvReac Mild N/V Verified 11/01/22 01:26 morphine AdvReac Mild N/V Verified 11/01/22 01:26 Medications Home Medications Medication Instructions Recorded Confirmed Last Taken pyridoxine (vitamin B6) 100 mg 100 mg PO QDL 10/12/20 11/13/22 11/12/22 tablet (Vitamin B-6) simvastatin 20 mg tablet 20 mg PO QPM #90 tabs 01/26/22 11/13/22 11/12/22 amiodarone 200 mg tablet 200 mg PO DAILY #90 tabs 06/28/22 11/13/22 11/12/22 sertraline 50 mg tablet 50 mg PO HS #90 tabs 07/02/22 11/13/22 11/12/22 omeprazole 40 mg capsule,delayed 40 mg PO QAM #90 caps 08/31/22 11/13/22 11/12/22 release ondansetron 8 mg disintegrating 8 mg translingual Q8 PRN Nausea 09/07/22 11/13/22 Unknown tablet diphenoxylate-atropine 2.5 2 tab PO .Q6-8 hr PRN Diarrhea 09/23/22 11/13/22 Unknown mg-0.025 mg tablet (Lomotil) prednisolone acetate 1 % eye 1 drp ophthalmic (eye) DAILY 09/23/22 11/13/22 11/12/22 drops,suspension prochlorperazine maleate 10 mg 10 mg PO Q6H PRN Nausea And 09/23/22 11/13/22 Unknown tablet (Compazine) Vomiting dexamethasone 4 mg tablet 4 mg PO Q6 #30 tabs 11/05/22 11/13/22 11/13/22 00:01 magnesium hydroxide 400 mg/5 mL 30 ml PO Q6H PRN constipation #1 mL 11/05/22 11/13/22 Unknown oral suspension (Milk of Magnesia) olanzapine 5 mg disintegrating 5 mg PO BID #10 tabs 11/05/22 11/13/22 11/12/22 tablet acetaminophen 325 mg tablet 650 mg PO Q4H PRN Fever Or Pain 11/13/22 11/13/22 Unknown acetaminophen 650 mg rectal 650 mg W[place] Q4 PRN Fever Or Pain 11/13/22 11/13/22 Unknown suppository colestipol 1 gram tablet (Colestid) 1 g PO . ON HOLD 11/13/22 11/13/22 Unknown hydromorphone 1 mg/mL oral liquid 1 mg PO .EVERY 2 HOURS PRN 11/13/22 11/13/22 Unknown (Dilaudid) pain/dyspnea hyoscyamine sulfate 0.125 mg tablet 0.125 mg sublingual Q4 PRN 11/13/22 11/13/22 Unknown terminal secretions ipratropium 0.5 mg-albuterol 3 mg 3 ml inhalation Q6 PRN Shortness 11/13/22 11/13/22 Unknown (2.5 mg base)/3 mL nebulization Of Breath soln levothyroxine 125 mcg tablet 125 mcg PO DAILYBB 11/13/22 11/13/22 11/12/22 lorazepam 1 mg tablet 0.5 mg PO Q4 PRN 11/13/22 11/13/22 Unknown restlessness/insomnia lorazepam 1 mg tablet 2 mg sublingual .EVERY 15 MINUTES 11/13/22 11/13/22 Unknown PRN Seizures multivitamin with minerals (Daily 1 tab PO DAILY 11/13/22 11/13/22 11/12/22 Multivitamin-Minerals tablet) promethazine 25 mg tablet 25 mg PO Q6 PRN Nausea 11/13/22 11/13/22 Unknown sennosides 8.6 mg tablet (senna) 8.6 - 17.2 mg PO DAILY 11/13/22 11/13/22 11/12/22 Active Medications Generic Name Dose Route Start Last Admin Trade Name Freq PRN Reason Stop Dose Admin Acetaminophen 650 mg 11/13/22 03:43 11/15/22 06:26 Acetaminophen 325 Mg Tab PO 12/13/22 03:42 650 mg Q4H PRN Administration Fever Or Pain Amiodarone HCl 200 mg 11/13/22 09:00 11/16/22 08:57 Amiodarone 200 Mg Tab PO 12/13/22 08:59 200 mg DAILY JAMIN Administration Dexamethasone 4 mg 11/13/22 06:00 11/16/22 05:43 Dexamethasone 4 Mg Tab PO 12/13/22 05:59 4 mg Q6 JAMIN Administration Heparin Sodium (Porcine) 5 ml 11/14/22 00:32 11/16/22 07:29 Heparin 100 Unit/Ml 5ml Flush FLUSH 12/14/22 00:31 5 ml PRN PRN Administration Flush Hydromorphone HCl 1 mg 11/13/22 03:43 11/16/22 07:28 Hydromorphone Inj 1 Mg/Ml Syringe IV 11/27/22 03:42 1 mg Q4H PRN Administration Pain Promethazine HCl 6.25 mg/ 50.25 mls @ 201 mls/hr 11/13/22 03:43 11/13/22 0 9:37 Sodium Chloride IV 12/13/22 03:42 Infused Q6H PRN Infusion Nausea And Vomiting Levothyroxine Sodium 125 mcg 11/13/22 06:30 11/16/22 05:43 Levothyroxine Sodium 125 Mcg Tablet PO 12/13/22 06:29 125 mcg DAILYBB JAMIN Administration Olanzapine 5 mg 11/13/22 09:00 11/16/22 08:57 Olanzapine Zydis 5 Mg Orally Dis. Tab PO 12/13/22 08:59 5 mg BID JAMIN Administration Ondansetron HCl 4 mg 11/13/22 03:43 11/13/22 04:18 Ondansetron Inj 2 Mg/Ml 2 Ml Vial IV 12/13/22 03:42 4 mg Q6H PRN Administration Nausea And Vomiting Pantoprazole Sodium 40 mg 11/13/22 09:00 11/16/22 08:57 Pantoprazole 40 Mg Tab PO 12/13/22 08:59 40 mg QAM JAMIN Administration Prednisolone Acetate 1 drops 11/13/22 09:00 11/16/22 07:32 Prednisolone Acetate 1% Op Susp 5 Ml Btl OP 12/13/22 08:59 1 drops DAILY JAMIN Administration Sennosides 8.6 mg 11/13/22 09:00 11/16/22 07:33 Senna 8.6 Mg Tab PO 12/13/22 08:59 Not Given DAILY JAMIN Sertraline HCl 50 mg 11/13/22 21:00 11/15/22 20:12 Sertraline Hcl 50 Mg Tablet PO 12/13/22 20:59 50 mg HS JAMIN Administration Simvastatin 20 mg 11/13/22 21:00 11/15/22 20:12 Simvastatin 20 Mg Tab PO 12/13/22 20:59 20 mg QPM JAMIN Administration NPO Date Last Intake of Fluids: 11/13/22 Time Last Intake of Fluids: 23:45 Date Last Intake of Solids: 11/13/22 Past Medical History Medical History Abnormal CT scan of lung Acute GI bleeding Anemia Antineoplastic chemotherapy induced pancytopenia Asthma Atelectasis of right lung Bacteremia Bilateral pulmonary embolism hx of 2012--reason for eliquis daily (had pneumonia right before and pt states she was not moving much) Brain metastases Candidiasis of intestine Chemotherapy adverse reaction Chronic diastolic congestive heart failure Chronic respiratory failure with hypoxia Colon cancer metastasized to lung (09/18/08) Depression Diverticulosis of colon DVT, lower extremity left leg, same time as PE Elevated diaphragm Elevated lactic acid level Essential hypertension GERD (gastroesophageal reflux disease) GI bleed Gross hematuria Hemoptysis History of anesthesia reaction difficulty waking at times as well as hx of waking up during sx (woke up during port placement) History of chemotherapy History of gastric ulcer History of immunocompromised state History of pulmonary embolism History of pulmonary embolus (PE) History of radiation therapy Hypercholesterolemia Hyperlipidemia Hypertension Hypothyroidism Hypothyroidism Hypoxia Infection due to Port-A-Cath Iron deficiency anemia Morbid obesity with BMI of 40.0-44.9, adult Multiple pulmonary nodules Neutropenia On anticoagulant therapy eliquis daily On home oxygen therapy 2L N/C at hs VU (obstructive sleep apnea) Osteoarthritis Port-A-Cath in place Pulmonary mass Radiation pneumonitis Restrictive lung disease Seizures due to metabolic disorder x2-- one d/t medication anaphylaxis, and pt states second d/t low magnesium in 09/2019 Septicemia due to coagulase-negative staphylococcal infection Tachycardia Weakness Past Family History Family History Mother , early 80s of thyroid cancer Thyroid cancer Heart disease Family history of reaction to anesthesia at age 80, took 2 days to wake after thyroidectomy Father , age 81 of gangrene complications No problems noted. Uncle Colorectal cancer Sister Family history of diabetes mellitus Sister Family history of diabetes mellitus Brother Myocardial infarction Other Family history non-contributory Denies family history of Ovarian cancer Prostate cancer Breast cancer Past Surgical History Surgical History H/O: hysterectomy History of bilateral tubal ligation History of bladder suspension procedure History of bronchoscopy x2-3 History of cholecystectomy open 04/2020 History of colon surgery d/t colon cancer History of colonoscopy with polypectomy History of esophagogastroduodenoscopy (EGD) History of lobectomy of lung right upper lobe removed 06/2008 @ [facility] d/t colon cancer metastasis to lung History of lung surgery wedge resection of left lung d/t cancer History of radioactive iodine thyroid ablation History of removal of cyst off finger History of tonsillectomy History of vascular access device x2--A port in place right side of chest History of ventral hernia repair History of wisdom tooth extraction Status post cholecystectomy Social History Smoking Status: Never smoker Hx Alcohol Use: No Hx Substance Use: No substance use type: does not use Physical Exam Vital Signs Last Vital Signs Temp 36.8 C 11/16/22 07:26 Pulse 101 H 11/16/22 07:26 Resp 16 11/16/22 07:26 BP 159/97 H 11/16/22 07:26 Pulse Ox 99 11/16/22 07:26 O2 Del Method 11/16/22 07:26 O2 Flow Rate 3 11/16/22 07:20 Testing Laboratory Results 11/16/22 09:21 11/16/22 09:21 PT 11.7 Seconds (9.0-12.0) 11/13/22 02:00 INR 1.1 (0.9-1.1) 11/13/22 02:00 APTT 27.7 Seconds (21.0-31.0) 11/13/22 02:00 Blood Type O Positive 11/13/22 04:26 Antibody Screen NEGATIVE 11/13/22 04:26 Electrocardiogram Date: 11/03/22 Findings: + NSR @ (96) Chest X-Ray Date: 10/31/22 Right lung collapse, not new, nodules left lung c/w metastatic disease Echocardiogram Date: 01/06/22 EF: >70% hyperdynamic LV Function: normal Valvular Disease: + no significant valvular disease
[2022-11-16] MEDS ORDERED: ONDANSETRON INJ 2 MG/ML 2 ML VIAL IV PRN (12:31)
[2022-11-16] MEDS ORDERED: ePHEDrine sulfate 50 MG/ML AMP IV PRN (12:31)
[2022-11-16] MEDS ORDERED: ATROPINE SULFATE 0.1 MG/ML 10ML SYR IV PRN (12:31)
[2022-11-16] MEDS ORDERED: fentaNYL citrate 100 MCG/2 ML VIAL IV PRN (12:31)
[2022-11-16] MEDS ORDERED: PROPOFOL IV EMULSION 10 MG/ML 20 ML VIAL IV ONE (12:53)
[2022-11-16] MEDS ORDERED: fentaNYL citrate 100 MCG/2 ML VIAL ONE (12:53)
[2022-11-16] MEDS ORDERED: MIDAZOLAM HCL 1 MG/ML 2ML VIAL ONE (12:53)
[2022-11-16] MEDS ORDERED: LIDOCAINE 2% MPF LOCAL 5 ML VIAL INFIL ONE (12:53)
[2022-11-16] MEDS ORDERED: ceFAZolin 2000MG 2,000 MG/15 ML SYR IV ONE (13:42)
[2022-11-16] MEDS ORDERED: ceFAZolin 2,000 MG/15 ML IV PUSH IV ONE (13:42)
[2022-11-16] MEDS ORDERED: BUPIVACAINE 0.5 % 5 MG/1 ML PF 10ML VIAL ONE (13:42)
--- NOTE | 2022-11-16 13:51 | History & Physical Bridge Note ---
Date of Service November 16, 2022 History & Physical Bridge Note I have examined the patient, reviewed the History & Physical and in the interval since the performance of the History & Physical I have noted the following changes of clinical significance: no changes noted
[2022-11-16] MEDS ORDERED: PHENYLEPHRINE 100MCG/ML 5ML SYR ONE (14:33)
[2022-11-16] MEDS ORDERED: BUPIVACAINE/EPINEPHRINE 0.5% MPF 1:200,000 30 ML VIAL ONE (14:36)
--- NOTE | 2022-11-16 16:09 | Fluoroscopy Report ---
FL femur RT 2V CLINICAL HISTORY: RT IM CINDA TECHNIQUE: 5 views were obtained with the C-arm in the OR with the above procedure. Total fluoroscopy time was 2 minutes 43 seconds. Radiation dose was 40.28 mGy. Comparison: Comparison is made to a radiograph 01/14/2022 FINDINGS/IMPRESSION: Intraoperative images were obtained of right intramedullary cinda. Please correlate with intraoperative fluoroscopy and operative report. ACT 112: Negative or not required by law. Electronically signed by: Jean Carlos Burns M.D. 11/16/2022 4:07 PM
--- NOTE | 2022-11-16 16:47 | Operative Report ---
PG Post Operative Report Pre & Post Diagnosis Operation Date: 11/14/22 07:30 <No data on this case meets the specified criteria> Operation Date: 11/16/22 07:00 Pre-Op Diagnosis: Right Subtrochanteric suspected pathologic femur Fracture Post-Op Diagnosis: Right Subtrochanteric suspected pathologic femur Fracture I identified the patient and participated in the time-out.: Yes Procedure Operation Date: 11/16/22 07:00 Actual Procedures p Insertion of Trochanteric Nail Right Femur and Right Femur Bone Biopsy(Right) - Kd Barbour MD Complexity modifier: Patient has a BMI that exceeded 40 and was a high risk for surgery for difficult subtrochanteric femur fracture. The case took extraordinary preoperative planning and coordination with nursing and anesthesia. The BMI complicated positioning and access to the trochanteric start point. Additional reduction maneuvers and positioning changes were required. Additional fluoroscopy was used to ensure acceptable reduction. Surgeon Kd Barbour MD Pharmacy Technician Gaetano Torres PA-C Estimated Blood Loss 150 Findings See Below Comminuted pathologic fracture of the subtrochanteric region treated with palliative cephalomedullary long nail. The proximal fragment was vacuous from abnormal bone and reduction was challenged. We are able to place the nail across the fracture with some acceptable varus and flexion deformity. All [employer] implants: 10 mm/130 degree titanium cannulated trochanteric fixation nail of 380 mm length. 11.0 mm titanium helical blade of 95 mm length. Distal interlock screw measuring 44 mm. Specimens Right pathologic femur fracture callus/debris, subtrochanteric region Anesthesia Type MAC Spinal Regional Complications none Disposition Accompanied Patient To Recovery: No Disposition: Recovery Room Indications 72-year-old female recently sent home for palliative care due to metastatic colon cancer was ambulating at home when her leg gave way. She was brought back to the hospital where it was found that she has a subtrochanteric femur fracture with likely pathologic changes. She was significant anesthesia risk due to medical comorbidities, but we opted to proceed with the palliative internal fixation procedure so that she could transfer to a chair and potentially stand and/or walk. We reviewed the risks and benefits surgery in detail with the patient and her , as outlined in the preoperative notes. They both asked appropriate questions, demonstrated a reasonable understanding of her risks with anesthesia and treatment choices, and wanted to proceed with surgery. Informed consent was documented here at the hospital. Description of Procedure On the day of surgery should be was greeted in the preoperative holding area and the informed consent was reviewed and confirmed. The surgical site was then identified by the patient and signed by myself. She was turned over to the anesthesia team. A spinal anesthetic with sedation was initiated in the preoperative holding area. It had excellent effect. She was taken to the operating room and placed by the OR table. The patient is then positioned on the fracture table. All iris prominences were well padded. The operative foot was placed in the fracture boot with abundant padding. The well leg was secured. We then positioned the lower extremities in a scissor fashion with a non-op leg flexed down to allow visualization with fluoroscopy which was confirmed before we prepped and draped. Surgical timeout was called and verified by all present. Antibiotics were infused, and equipment was available and functional. The procedure was initiated with a closed reduction maneuvers. Due to the nature of the substrate fracture there was significant flexion and abduction of the short proximal fragment. We used traction and adduction into allow access to the start point of the trochanteric region. The proximal femur remained in a suboptimal position but I felt the start point was achievable. An acceptable reduction could not be achieved in the closed manner, as expected. The leg was then prepped and draped in usual sterile fashion. Surgical timeout was reconfirmed. We initiated the surgical internal fixation portion with finding the start point with the tip of the greater trochanter. Fluoroscopic guidance was used and a small incisional was established. Unfortunately, due to her body habitus we had to change position of the starting point. This required a secondary incision. The start point was confirmed on fluoroscopy in AP and lateral planes and the pin was advanced using a mallet. An incision was made about the pin to allow access for the reamers. The pin was then advanced into the short segment of the proximal fragment, and its position was confirmed using AP and lateral fluoroscopy. Using the protective sleeve, the opening reamer was advanced under power with fluoroscopic guidance over the guidepin. It was advanced slowly under fluoroscopic guidance. A trocar reduction instrument was then passed over into the reamed start point. I used this is a lever to try to line up the proximal and distal fragments. Due to the subtrochanteric pattern, there remained significant lateral translation of the distal fragment with significant flexion of the proximal. An incision was planned and made over the entry for the femoral neck screw. This allowed access directly at the subtrochanteric region. I extended the IT band incision proximally and distally. With this access to the fracture site, I used a rongeur to quickly take to bone marrow type biopsies from the fracture region. This was sent to pathology. The incision allowed us to place a bone reduction forcep on the distal femur to control it. My PA was able to manipulate the femur as I used the trocar and the proximal fragment to line up the fragments. This took several tries. Fluoroscopy was used to guide it. We finally lined it up and placed the trocar across the fracture site. This allowed us to place the reduction wire. The reduction wire was then advanced down the distal femur to the level of the superior pole of the patella. Measurement was taken from the tip of the trochanter down to the end of the guidewire, and the 380 mm length was selected. We then began sequential reaming. With preoperative planning we determined to place a 10 mm nail. For that reason I started with a 10.5 reamer and advanced directly to 11.5 mm reamer to expedite the case. There was reasonable chatter with 11.5 reamer. An 10 mm nail was loaded onto the jig and advanced manually down the canal, while ensuring maintenance of the reasonable reduction on fluoroscopy. I used the curved the nail to manipulate the proximal fragment and lined it up for easy passage across the fracture site. We then tapped it down into place until we achieve the good position for our cephalo-medullary screw. Placing the nail in appropriate position the proximal fragment likely displaced her fracture somewhat. The comminution and void of the posterior cortex in the proximal fragment allowed the proximal femur to move into a flexion position. This could not be held in a corrected position despite the use of a [place] on the anterior aspect of the proximal femur. The cannula was placed on the jig to allow positioning of the cephalo-medullary screw. The jig cannulas were then placed against the lateral cortex. This was directly in the fracture region. This compression device on the jig actually help reduce some of the varus that was left in the fracture alignment. The cephalo-medullary screw guidepin was advanced towards the femoral head. The center-center position was confirmed on fluoroscopy in AP and lateral planes. The length of the screw was measured off the guide. The helical blade screw was then opened on the back table and prepared on the screwdriver. The lateral cortical opening drill, followed by the drill reamer for the helical blade was advanced under fluoroscopic guidance. The helical blade was advanced over the guidepin to appropriate position. The helical blade was locked in rotation and then the traction was taken off. Fluoroscopy confirmed maintenance of reduction and adequate position of the implant. We could not compress the fracture through the jig as the cannulas on the lateral cortex were directly in the fracture region. The varus valgus alignment did improve with femoral neck screw placement. There remained some distraction at the fracture site. This was started on the lateral view and it showed flexion of the proximal fragment, as expected, due to the loss of the posterior cortex in the proximal fragment. The alignment and position of the helical blade was acceptable in this palliative situation. Attention was then directed distally to perform the interlock screws in using perfect [place] technique in the slotted hole to allow some dynamization and compression. 1 interlock screw was placed with a 5 mm diameter. The length was measured using a depth gauge, with fluoroscopic guidance. This completed the fixation. This completed the fixation of the fracture. Fluoroscopy was used in both AP and lateral planes to evaluate the entirety of the fracture and implant. Reduction and implant positions were acceptable. The wounds were then thoroughly irrigated with bulb syringe and normal saline. The deep fascial layer was approximated with 0 Vicryl suture. The dermal layer was approximated using 2-0 Vicryl suture. The final skin closure was completed with con. Wounds were dressed with sterile Xeroform, sterile gauze, and foam tape over ABDs. The patient tolerated procedure well, awoke from anesthesia without complication, was extubated in the operating room, and transferred to the PACU in stable condition. Disposition: The patient be weightbearing as tolerated. DVT prophylaxis routinely administered in some fashion for least 6 weeks after hip fractures. I defer to the primary and palliative care teams as to whether DVT prophylaxis should be used and to what agent. 24 hours of antibiotic prophylaxis should be continued. Physician preschool assistant attestation: Gaetano Torres PA-C was present and scrubbed for the duration of the case. He was essential to prepping/draping, patient positioning, retraction, and assistance with wound closure. Skilled assistance was critical to timely performance of this case to the complexities of the reduction maneuvers and patient positioning. I attest to the content of the Intraoperative Record and any orders documented therein. Any exceptions are noted below.
--- NOTE | 2022-11-16 16:49 | Anesthesiology Progress Note ---
Date of Service November 16, 2022 Anesthesia Post Procedure Vital Signs Vital Signs: Temp Pulse Pulse Resp BP BP Pulse Ox 11/16/22 16:40 96.8 F L 110 H 16 92/68 L 93 11/16/22 16:30 111 H 22 94/72 L 99 11/16/22 16:20 113 H 22 105/79 97 11/16/22 16:13 97.7 F 112 H 16 107/77 98 11/16/22 12:18 98.1 F 99 H 16 173/90 H 100 11/16/22 07:20 11/16/22 07:26 98.2 F 101 H 16 159/97 H 99 11/15/22 19:30 11/15/22 19:56 98.1 F 98 H 18 121/70 96 O2 Del Method O2 Flow Rate 11/16/22 16:40 Nasal Cannula 3 11/16/22 16:30 Oxymask 6 11/16/22 16:20 Oxymask 9 11/16/22 16:13 Oxymask 9 11/16/22 12:18 Nasal Cannula 3 11/16/22 07:20 Nasal Cannula 3 11/16/22 07:26 Room Air 11/15/22 19:30 Nasal Cannula 3 11/15/22 19:56 Nasal Cannula Pain Intensity Right Hip: Pain Intensity: 8 Transfer of Care Handoff Completed per policy Notes Mental Status: alert / awake / arousable and participated in evaluation Patient Amnestic to Procedure: Yes Nausea / Vomiting: adequately controlled Pain: adequately controlled Airway Patency, RR, SpO2: stable & adequate BP & HR: stable & adequate Hydration State: stable & adequate Neuraxial Anesthesia: was administered and sensory block is resolving Anesthetic Complications: no major complications apparent and Pt Satisfied with anesthetic care
--- NOTE | 2022-11-16 17:15 | XRay Report ---
XR femur RT 2V routine CLINICAL HISTORY: postop femoral nail TECHNIQUE: 2 radiographic views of the right femur were obtained. Comparison: Comparison is made to right femur radiograph 10/14/2022 FINDINGS: Interval placement of a femoral joseph. The fracture fragments are in satisfactory alignment. The visua lized portion of the hip and knee joints are unremarkable. The soft tissues are unremarkable. IMPRESSION: Interval placement of a femoral joseph with expected postoperative changes. The fracture fragments are i n satisfactory alignment. ACT 112: Negative or not required by law. Electronically signed by: Jean Carlos Burns M.D. 11/16/2022 5:12 PM
[2022-11-16] MEDS: LACTATED RINGER'S 1,000 ML IV SCH (18:44)
--- NOTE | 2022-11-16 19:29 | Billing Data ---
Date of Service November 16, 2022 Coding Level of Care Code 13294 Subseq Hosp Care Lvl 3
--- NOTE | 2022-11-16 19:30 | Billing Data ---
Date of Service November 16, 2022 Coding Level of Care Code 73490 Subseq Hosp Care Lvl 3
[2022-11-16] MEDS: SIMVASTATIN 20 MG TAB PO SCH (21:03)
[2022-11-16] MEDS: SERTRALINE HCL 50 MG TABLET PO SCH (21:03)
[2022-11-16] MEDS: ONDANSETRON INJ 2 MG/ML 2 ML VIAL IV PRN (22:05)
[2022-11-16] MEDS: ceFAZolin 2000MG 2,000 MG/15 ML SYR IV SCH (22:05)
[2022-11-17] MEDS: dexAMETHasone 4 MG TAB PO SCH ×4 (00:35→18:36)
[2022-11-17] MEDS: ceFAZolin 2000MG 2,000 MG/15 ML SYR IV SCH (06:04)
[2022-11-17] MEDS: LEVOTHYROXINE SODIUM 125 MCG TABLET PO SCH (06:04)
[2022-11-17] MEDS: HEPARIN 100 UNIT/ML 5ML FLUSH FLUSH PRN (07:07)
[2022-11-17] MEDS: LACTATED RINGER'S 1,000 ML IV SCH (07:15)
--- NOTE | 2022-11-17 07:34 | Hospitalist Progress Note ---
Date of Service November 17, 2022 Assessment & Plan (1) Metastatic colon cancer in female: (2) Closed fracture of proximal end of right femur: (3) Thyroid disorder: Plan Marie is a 72 y/o female with metastatic colon cancer (mets to lung and brain) who presented to the ER for hip pain. She was transferring from wheelchair to toilet when she felt a "pop", did not fall or hit head. She is currently on home hospice and per prior palliative care notes, her life expectancy is <1 month. Closed Fracture of Proximal End of Right Femur -X-ray: displaced and angulated subtrochanteric fracture of right proximal femur, "pathologic fracture cannot be excluded" -Dilaudid 1mg IV q 4 hours as needed for pain, Tylenol PRN. Added Dilaudid PO 1mg in hopes of transition off of IV meds -Phenergan and Zofran PRN nausea -PO Day #1: procedure successful, recovering well. Pain controlled. -PT/OT worked with her this morning, had to stop due to dizziness- gave pt fluid bolus. No further episodes of dizziness -Hope to d/c tomorrow if able to work with PT/OT and [facility] +Patient also received last session of palliative radiation treatment today for brain mets +CM placed referral for home hospice to resume after d/c home Metastatic Colon Cancer -Colon cancer dx 15+ yrs ago, recent diagnosis of mets to lung and brain -Currently on home hospice, lives with -Continue dexamethasone 4mg q6h Thyroid Disorder -Recent TSH 1.39 -Continue home dose levothyroxine Dispo: Med/surg Code: DNR/DNI, currently on home hospice Diet: Regular diet (easy to chew) Admission and Anticipated Discharge Date Admission Date: November 13, 2022 Supervising Physician Co-Signing Physician Notes I personally examined the patient and verified all florian points of history and exam, discussed case, and agree with decision making with Dr Barragan. Pain under good control. Tried to get out of bed and got very lightheaded. Anxious to get home. Vitals noted, in general she is awake and alert pleasant no distress. HEENT normocephalic atraumatic mucous membranes moist. Breathing unlabored no accessory muscle use good effort. Skin shows no rashes no pallor or icterus. Neuro without focal deficits. Femur fractureprobably pathologic given her lack of trauma. If not pathologic then definitely severe osteoporosis, but with the known metastatic cancer and more concerned about pathologic. Now status post ORIF. Goal would be decent pain control (which she appears to have), and enough mobility to transfer to toilet (versus needing to build an alternate plan if she is unable tobut it seems like she will likely get there). Fluid bolus for lightheadedness. No signs or symptoms of infectionsuspect white count is demargination/physiologic stress from surgery, conitnue to follow Subjective Patient seen and examined at bedside. Patient states pain is under control currently. Had episode of dizziness when working with PT/OT earlier. Is eager to get home. Denies increased SOB, chest pain, fever, body aches/chills. Review of Systems Review of Systems: As per HPI Physical Exam Constitutional: WD/WN, vitals as above ENMT: external ear and nose normal, oropharynx normal Neck: trachea midline, no thyromegaly Cardiovascular: RRR, no murmur, no edema Skin: no rashes, warm and dry Psychiatric: A+Ox3, euthymic affect Results & Data Results & Data ([facility]) Vital Signs (Past 12 Hours) Vital Signs Temp Pulse Resp BP Pulse Ox O2 Del Method O2 Flow Rate 11/17/22 07:03 36.6 C 109 H 16 109/73 95 Room Air 11/17/22 05:01 36.6 C 103 H 16 106/69 97 Room Air 11/17/22 00:35 36.4 C L 105 H 18 100/67 96 Nasal Cannula 3 11/16/22 20:28 36.4 C L 109 H 16 100/55 L 100 Nasal Cannula 3 Resident Activity Tracking Resident Involvement: Resident Care Provided Care Provided: Adult Hospital Medicine
[2022-11-17] MEDS: PANTOprazole 40 MG TAB PO SCH (07:42)
[2022-11-17] MEDS: prednisoLONE acetate 1% OP SUSP 5 ML BTL OP SCH (07:43)
[2022-11-17] MEDS: OLANZapine ZYDIS 5 MG ORALLY DIS. TAB PO SCH ×2 (07:43→21:51)
[2022-11-17] MEDS: AMIODARONE 200 MG TAB PO SCH (07:43)
[2022-11-17] MEDS: SENNA 8.6 MG TAB PO SCH (07:43)
[2022-11-17 08:08] LABS: Hematocrit (blood only) 26.3 % (34.1-44.9); Hemoglobin 8.4 g/dl (12.0-16.0); Mean Corpuscular Hemoglobin 32.3 pg (25.0-34.0); Mean Corpuscular Hgb Conc 31.9 g/dL (32.0-36.0); Mean Corpuscular Volume 101.2 fL (80.0-100.0); Mean Platelet Volume 11.1 fL (9.4-12.3); Platelet Count 93 K/uL (130-400); RDW Coefficient of Variation 17.7 % (11.5-14.5); RDW Standard Deviation 65.7 fL (36.4-46.3); White Blood Count 29.38 K/ul (4.8-10.8)
[2022-11-17 08:14] LABS: Basophils # (auto) 0.06 K/uL (0-0.2); Basophils % (auto) 0.2 %; Immature Granulocytes # (auto) 0.73 K/uL (0.00-0.02); Immature Granulocytes % (auto) 2.5 %; Lymphocytes % (auto) 1.7 %; Monocytes # (auto) 1.65 K/uL (0.24-0.82); Monocytes % (auto) 5.6 %; Neutrophils # (auto) 26.44 K/uL (1.4-6.5); Polychromasia 1+; Tear Drop Cells 1+
[2022-11-17 08:18] LABS: BUN Creatinine Ratio 49.2 (10-20); Calcium 7.6 mg/dl (8.5-10.1); Creatinine Clr Calc Pharmacy 50.8 ml/min; Est GFR (Non-African American) 43.1 ml/min; Potassium 5.4 mmol/L (3.5-5.1)
--- NOTE | 2022-11-17 08:57 | Orthopedic Progress Note ---
Date of Service November 17, 2022 Assessment & Plan (1) Closed fracture of proximal end of right femur: S/p Long IM Nail Right Femur with Bone Biopsy (DOS 11/17/2022; Dr. Barbour) -Doing well on POD 1 -WBAT to RLE; ok for OOB to chair with assistance; will need a walker to help with transfers and ambulation -Pain control per primary team/hospice -Post op antibiotics ordered -Keep dressing in place until POD 3 (11/19). Incisions can be open to air if there is no drainage. Daily dressing changes prn if incisions continue to drain -Anna can be removed at 2 weeks post op. Hospice nursing can do this at home but we can follow up with her in the office for a wound check and staple removal at 2 weeks post op if they'd prefer. Dispo: Per primary team. OK for discharge back home on hospice from Ortho perspective. Subjective Feels much better today. Much less pain. Feels fine overall, ready to go home . Review of Systems All systems reviewed & are unremarkable except as noted in HPI & below. Physical Exam General: Pleasant 72 y/o/f resting comfortably in bed in NAD. AAO x 4. RLE: Dressings are clean/dry/intact. Minimal incisional tenderness. No surrounding ecchymosis or swelling. Leg lengths equal. Distally N/V/I. Results & Data Results & Data Laboratory Results Reviewed . Diagnostic Findings Reviewed post op XRs - Stable post op findings . PG Care Time/CCT Total # of Minutes Spent Total Time Spent with Patient: Total time spent is greater than 50% in coordination of care (as documented) at patient's floor/unit and/or counseling patient: Coding Level of Care Code 14670 Post Operative Follow-Up Diagnoses Closed fracture of proximal end of right femur S72.001A
[2022-11-17] MEDS ORDERED: HYDROmorphone HCL 2 MG TAB PO PRN ×2 (10:22→10:58)
[2022-11-17] MEDS ORDERED: HYDROmorphone INJ 1 MG/ML SYRINGE IV PRN (10:58)
[2022-11-17] MEDS ORDERED: ACETAMINOPHEN 325 MG TAB PO PRN (10:58)
[2022-11-17] MEDS ORDERED: LACTATED RINGER'S 500 ML IV ONE (12:53)
--- NOTE | 2022-11-17 18:49 | Billing Data ---
Date of Service November 17, 2022 Coding Level of Care Code 14494 Subseq Hosp Care Lvl 3
[2022-11-17] MEDS: SIMVASTATIN 20 MG TAB PO SCH (21:51)
[2022-11-17] MEDS: SERTRALINE HCL 50 MG TABLET PO SCH (21:51)
[2022-11-18] MEDS: dexAMETHasone 4 MG TAB PO SCH ×4 (01:10→17:18)
[2022-11-18] MEDS: LEVOTHYROXINE SODIUM 125 MCG TABLET PO SCH (05:31)
[2022-11-18] MEDS: OLANZapine ZYDIS 5 MG ORALLY DIS. TAB PO SCH ×2 (09:17→21:17)
[2022-11-18] MEDS: SENNA 8.6 MG TAB PO SCH (09:17)
[2022-11-18] MEDS: prednisoLONE acetate 1% OP SUSP 5 ML BTL OP SCH (09:17)
[2022-11-18] MEDS: PANTOprazole 40 MG TAB PO SCH (09:23)
[2022-11-18] MEDS: AMIODARONE 200 MG TAB PO SCH (09:23)
[2022-11-18 09:25] LABS: Hematocrit (blood only) 22.8 % (34.1-44.9); Hemoglobin 7.5 g/dl (12.0-16.0); Mean Corpuscular Hemoglobin 32.1 pg (25.0-34.0); Mean Corpuscular Hgb Conc 32.9 g/dL (32.0-36.0); Mean Corpuscular Volume 97.4 fL (80.0-100.0); Mean Platelet Volume 10.8 fL (9.4-12.3); Platelet Count 71 K/uL (130-400); RDW Coefficient of Variation 18.4 % (11.5-14.5); RDW Standard Deviation 65.8 fL (36.4-46.3); Red Blood Count 2.34 M/uL (3.93-5.22); White Blood Count 25.29 K/ul (4.8-10.8)
[2022-11-18 09:50] LABS: Basophils # (auto) 0.04 K/uL (0-0.2); Basophils % (auto) 0.2 %; Immature Granulocytes # (auto) 0.41 K/uL (0.00-0.02); Immature Granulocytes % (auto) 1.6 %; Lymphocytes # (auto) 0.43 K/uL (1.2-3.4); Lymphocytes % (auto) 1.7 %; Monocytes # (auto) 1.24 K/uL (0.24-0.82); Monocytes % (auto) 4.9 %; Neutrophils # (auto) 23.17 K/uL (1.4-6.5); Neutrophils % (auto) 91.6 %; Ovalocytes 1+
[2022-11-18 10:20] LABS: BUN Creatinine Ratio 62.9 (10-20); Calcium 7.6 mg/dl (8.5-10.1); Creatinine Clr Calc Pharmacy 51.6 ml/min; Potassium 5.2 mmol/L (3.5-5.1)
--- NOTE | 2022-11-18 15:28 | Hospitalist Progress Note ---
Date of Service November 18, 2022 Assessment & Plan (1) Metastatic colon cancer in female: (2) Closed fracture of proximal end of right femur: (3) Thyroid disorder: Plan Marie is a 72 y/o female with metastatic colon cancer (mets to lung and brain) who presented to the ER for hip pain. She was transferring from wheelchair to toilet when she felt a "pop", did not fall or hit head. She is currently on home hospice and per prior palliative care notes, her life expectancy is <1 month. Closed Fracture of Proximal End of Right Femur -X-ray: displaced and angulated subtrochanteric fracture of right proximal femur, "pathologic fracture cannot be excluded" -Dilaudid 1mg IV q 4 hours as needed for pain, Tylenol PRN. Added Dilaudid PO 1mg in hopes of transition off of IV meds -Phenergan and Zofran PRN nausea -PO Day #2: procedure successful, recovering well. Pain controlled. -PT/OT worked with her this morning -Hope to d/c tomorrow with home hospice +CM placed referral for home hospice to resume after d/c home Metastatic Colon Cancer -Colon cancer dx 15+ yrs ago, recent diagnosis of mets to lung and brain -Currently on home hospice, lives with -Continue dexamethasone 4mg q6h Thyroid Disorder -Recent TSH 1.39 -Continue home dose levothyroxine Dispo: Med/surg Code: DNR/DNI, currently on home hospice Diet: Regular diet (easy to chew) Admission and Anticipated Discharge Date Admission Date: November 13, 2022 Supervising Physician Co-Signing Physician Notes I personally examined the patient and verified all florian points of history and exam, discussed case, and agree with decision making with Dr Barragan. Patient reports her pain is well controlled. Patient is concnerned about the weather and also feels her family is not ready to care for her today. She would wants discharge to be planned for 11/19. Patient is status ORIF. Patient does not appear septic. Will continue to monitor, plan is for her to go back home on hospice. Subjective Patient seen and examined at bedside. No events overnight, pain under control. Denies any dizziness today. Plan to work with PT again and hopefully home with hospice tomorrow. Review of Systems Review of Systems: As per HPI Physical Exam Constitutional: WD/WN, vitals as above ENMT: external ear and nose normal, oropharynx normal Neck: trachea midline, no thyromegaly Cardiovascular: RRR, no murmur, no edema Skin: no rashes, warm and dry Psychiatric: A+Ox3, euthymic affect Affect: + tearful affect Results & Data Results & Data ([facility]) Vital Signs (Past 12 Hours) Vital Signs Temp Pulse Resp BP Pulse Ox O2 Del Method O2 Flow Rate 11/18/22 08:15 Nasal Cannula 3 11/18/22 05:33 36.7 C 90 16 116/71 94 Room Air Resident Activity Tracking Resident Involvement: Resident Care Provided Care Provided: Adult Hospital Medicine
--- NOTE | 2022-11-18 16:02 | Orthopedic Progress Note ---
Date of Service November 18, 2022 Assessment & Plan (1) Closed fracture of proximal end of right femur: S/p Long IM Nail Right Femur with Bone Biopsy (DOS 11/17/2022; Dr. Barbour) -Doing well on POD 2 -WBAT to RLE; ok for OOB to chair with assistance; will need a walker to help with transfers and ambulation -Pain control per primary team/hospice -Keep dressing in place until POD 3 (11/19). Incisions can be open to air after POD 3 if there is no drainage. Daily dressing changes prn if incisions continue to drain -Anna can be removed at 2 weeks post op. Hospice nursing can do this at home but we can follow up with her in the office for a wound check and staple removal at 2 weeks post op if they'd prefer. Dispo: Per primary team. OK for discharge back home on hospice from Ortho perspective. Subjective Had episode of lightheadedness when sitting up in bed yesterday, feels that better in that respect today. Pain minimal and controlled with current regimen . Review of Systems All systems reviewed & are unremarkable except as noted in HPI & below. Physical Exam General: Pleasant, chronically ill appearing 72 y/o/f resting in bed in NAD. AAO x 4 LLE: Expected incisional tenderness. Has some mild drainage evident on middle dressing, not saturated. Leg lengths equal. Distally NVI. Results & Data Results & Data Laboratory Results Reviewed - Most recent Hgb 7.5 . Diagnostic Findings Intraoperative pathology report consistent with metastatic adenocarcinoma with colon primary. PG Care Time/CCT Total # of Minutes Spent Total Time Spent with Patient: Total time spent is greater than 50% in coordination of care (as documented) at patient's floor/unit and/or counseling patient: Coding Level of Care Code 40741 Post Operative Follow-Up Diagnoses Closed fracture of proximal end of right femur S72.001A
[2022-11-18] MEDS: HEPARIN 100 UNIT/ML 5ML FLUSH FLUSH PRN (16:41)
[2022-11-18] MEDS: SERTRALINE HCL 50 MG TABLET PO SCH (21:17)
[2022-11-18] MEDS: SIMVASTATIN 20 MG TAB PO SCH (21:17)
[2022-11-19] MEDS: dexAMETHasone 4 MG TAB PO SCH ×4 (01:08→20:13)
[2022-11-19] MEDS: LEVOTHYROXINE SODIUM 125 MCG TABLET PO SCH (05:56)
[2022-11-19] MEDS: AMIODARONE 200 MG TAB PO SCH (07:55)
[2022-11-19] MEDS: PANTOprazole 40 MG TAB PO SCH (07:55)
[2022-11-19] MEDS: prednisoLONE acetate 1% OP SUSP 5 ML BTL OP SCH (07:55)
[2022-11-19] MEDS: SENNA 8.6 MG TAB PO SCH (07:56)
[2022-11-19] MEDS: OLANZapine ZYDIS 5 MG ORALLY DIS. TAB PO SCH ×2 (07:56→20:14)
[2022-11-19] MEDS: HEPARIN 100 UNIT/ML 5ML FLUSH FLUSH PRN ×3 (09:21→21:41)
[2022-11-19 10:44] LABS: BUN Creatinine Ratio 66.7 (10-20); Calcium 7.9 mg/dl (8.5-10.1); Creatinine Clr Calc Pharmacy 60.9 ml/min; Est GFR (African American) 62.3 ml/min; Est GFR (Non-African American) 53.8 ml/min; Potassium 4.9 mmol/L (3.5-5.1)
[2022-11-19 10:56] LABS: Hematocrit (blood only) 20.8 % (34.1-44.9); Hemoglobin 6.8 g/dl (12.0-16.0); Mean Corpuscular Hemoglobin 32.2 pg (25.0-34.0); Mean Corpuscular Hgb Conc 32.7 g/dL (32.0-36.0); Mean Corpuscular Volume 98.6 fL (80.0-100.0); Mean Platelet Volume 12.5 fL (9.4-12.3); Platelet Count 65 K/uL (130-400); RDW Coefficient of Variation 18.7 % (11.5-14.5); RDW Standard Deviation 67.1 fL (36.4-46.3); Red Blood Count 2.11 M/uL (3.93-5.22); White Blood Count 21.18 K/ul (4.8-10.8)
[2022-11-19 10:59] LABS: Basophils # (auto) 0.02 K/uL (0-0.2); Basophils % (auto) 0.1 %; Immature Granulocytes # (auto) 0.34 K/uL (0.00-0.02); Immature Granulocytes % (auto) 1.6 %; Lymphocytes % (auto) 1.4 %; Monocytes # (auto) 1.07 K/uL (0.24-0.82); Monocytes % (auto) 5.1 %; Neutrophils # (auto) 19.45 K/uL (1.4-6.5); Neutrophils % (auto) 91.8 %; Ovalocytes 1+; Polychromasia 1+; Tear Drop Cells 1+
[2022-11-19] MEDS ORDERED: SODIUM CHLORIDE 0.9% 250 ML IV PRN (11:23)
--- NOTE | 2022-11-19 12:22 | XRay Report ---
KUB HISTORY: drop in hemoglobin COMPARISON: Abdomen and pelvis CT 10/31/2022. FINDINGS: The bowel gas pattern is unremarkable. There are no dilated loops of small bowel to suggest an obstruction. No renal calculi. No ureteral calculi. No pneumoperitoneum or pneumatosis. Prior me sh repair of an abdominal hernia. Recent internal fixation of the right femoral fracture with an intr amedullary joseph and interlocking femoral neck pin. Right hip soft tissue swelling is likely due to the recent postoperative change. Prior cholecystectomy. Mildly dilated gas-filled loops of large and sma ll bowel are nonspecific but favor an ileus. Moderate well-formed stool within the rectum. IMPRESSION: 1. Mildly dilated gas-filled loops of large and small bowel favor a postoperative ileus. 2. Moderate well-formed stool within the rectum. 3. Recent internal fixation of a right proximal femoral fracture. ACT 112: Negative or not required by law. Electronically signed by: Norberto Pandya M.D. 11/19/2022 12:20 PM
[2022-11-19 12:32] LABS: Iron 62 mcg/dl (35-150); Total Iron Binding Cap Calc 230 mcg/dl (250-450); Transferrin (FE) Percent Satur 27 % (15-50); Unsaturated Iron Binding Cap 168 mcg/dl (155-355)
--- NOTE | 2022-11-19 14:18 | Hospitalist Progress Note ---
Date of Service November 19, 2022 Assessment & Plan (1) Metastatic colon cancer in female: (2) Closed fracture of proximal end of right femur: (3) Thyroid disorder: Plan Marie is a 72 y/o female with metastatic colon cancer (mets to lung and brain) who presented to the ER for hip pain. She was transferring from wheelchair to toilet when she felt a "pop", did not fall or hit head. She is currently on home hospice and per prior palliative care notes, her life expectancy is <1 month. Closed Fracture of Proximal End of Right Femur -X-ray: displaced and angulated subtrochanteric fracture of right proximal femur, "pathologic fracture cannot be excluded" -Tylenol, Dilaudid PO 1mg PRN for pain control -Phenergan and Zofran PRN nausea -PO Day #3: procedure successful, recovering well. Pain controlled. Planned to discharge later today, unfortunately hemoglobin has been downtrending for 2 days and dropped to 6.8. Patient asymptomatic, drop likely related to surgery and not indicative of active bleed. Iron panel completed, slight decrease in TIBC but otherwise normal. KUB suggestive of postoperative ileus. +Received 1 unit PRBC +Repeat H&H ordered this evening and tomorrow AM +CM rescheduled ride for 10am tomorrow Metastatic Colon Cancer -Colon cancer dx 15+ yrs ago, recent diagnosis of mets to lung and brain -Currently on home hospice, lives with -Continue dexamethasone 4mg q6h Thyroid Disorder -Recent TSH 1.39 -Continue home dose levothyroxine Dispo: Med/surg Code: DNR/DNI, currently on home hospice Diet: Regular diet (easy to chew) Admission and Anticipated Discharge Date Admission Date: November 13, 2022 Supervising Physician Co-Signing Physician Notes I personally examined the patient and verified all florian points of history and exam, discussed case, and agree with decision making with Dr Barragan. Patient reports her pain is well controlled. Plan was to discharge patient today but she is aenmic with a hemoglobin below 7. Though she is going home on hopsice, would prefer to have her stablilized and perked up so she can enjoy her time home. Tried to delay transport today until after transfusion, but this was not possible. Plan for discharge in AM. Patient is not showing signs of GI bleed, and this is likely secondary to her history of chemotherapy and recent orthopedic surgery. Patient is status ORIF. Patient does not appear septic. Will continue to monitor, plan is for her to go back home on hospice. Subjective Patient seen and examined at bedside. Eager to go home. Denies any shortness of breath (on room air at time of encounter) nor any dizziness. Had some difficulty with urinary retention yesterday but able to use bedpan today and had a small bowel movement (unsure of color/quality). Review of Systems Review of Systems: As per HPI Physical Exam Constitutional: WD/WN, vitals as above ENMT: external ear and nose normal, oropharynx normal Neck: trachea midline, no thyromegaly Respiratory: no increased work of breathing, on room air Cardiovascular: RRR, no murmur, no edema Skin: no rashes, warm and dry Psychiatric: A+Ox3, euthymic affect Results & Data Results & Data ([facility]) Vital Signs (Past 12 Hours) Vital Signs Temp Pulse Pulse Resp BP BP Pulse Ox 11/19/22 14:00 36.7 C 112 H 20 116/73 94 11/19/22 13:45 36.7 C 108 H 18 106/65 95 11/19/22 13:22 36.8 C 114 H 18 113/73 95 11/19/22 07:11 36.7 C 113 H 18 107/64 94 O2 Del Method 11/19/22 14:00 11/19/22 13:45 11/19/22 13:22 11/19/22 07:11 Room Air Resident Activity Tracking Resident Involvement: Resident Care Provided Care Provided: Adult Hospital Medicine
[2022-11-19 18:13] LABS: Hemoglobin 7.9 g/dl (12.0-16.0)
[2022-11-19] MEDS: SIMVASTATIN 20 MG TAB PO SCH (20:13)
[2022-11-19] MEDS: SERTRALINE HCL 50 MG TABLET PO SCH (20:13)
[2022-11-19] MEDS: PROMETHAZINE HCL 6.25 MG in SODIUM CHLORIDE 0.9% 50 ML IV PRN (21:21)
[2022-11-20] MEDS: dexAMETHasone 4 MG TAB PO SCH ×3 (00:23→21:32)
[2022-11-20] MEDS: LEVOTHYROXINE SODIUM 125 MCG TABLET PO SCH (07:21)
[2022-11-20 08:40] LABS: BUN Creatinine Ratio 74.4 (10-20); Calcium 7.6 mg/dl (8.5-10.1); Creatinine Clr Calc Pharmacy 74.4 ml/min; Est GFR (African American) 79.3 ml/min; Est GFR (Non-African American) 68.4 ml/min
[2022-11-20 08:42] LABS: Hematocrit (blood only) 22.3 % (34.1-44.9); Hemoglobin 7.4 g/dl (12.0-16.0); Mean Corpuscular Hemoglobin 31.5 pg (25.0-34.0); Mean Corpuscular Hgb Conc 33.2 g/dL (32.0-36.0); Mean Corpuscular Volume 94.9 fL (80.0-100.0); Mean Platelet Volume 11.8 fL (9.4-12.3); Nucleated RBC # (auto) 0.04 K/uL (0-0); Nucleated RBC % (auto) 0.3 %; Platelet Count 48 K/uL (130-400); RDW Coefficient of Variation 21.9 % (11.5-14.5); RDW Standard Deviation 73.7 fL (36.4-46.3); Red Blood Count 2.35 M/uL (3.93-5.22); White Blood Count 14.76 K/ul (4.8-10.8)
[2022-11-20 08:49] LABS: Basophils # (auto) 0.02 K/uL (0-0.2); Basophils % (auto) 0.1 %; Immature Granulocytes # (auto) 0.26 K/uL (0.00-0.02); Immature Granulocytes % (auto) 1.8 %; Lymphocytes # (auto) 0.28 K/uL (1.2-3.4); Lymphocytes % (auto) 1.9 %; Monocytes # (auto) 0.73 K/uL (0.24-0.82); Monocytes % (auto) 4.9 %; Neutrophils # (auto) 13.47 K/uL (1.4-6.5); Neutrophils % (auto) 91.3 %; Tear Drop Cells Occasional
[2022-11-20] MEDS: AMIODARONE 200 MG TAB PO SCH (08:59)
[2022-11-20] MEDS: PANTOprazole 40 MG TAB PO SCH (08:59)
[2022-11-20] MEDS: prednisoLONE acetate 1% OP SUSP 5 ML BTL OP SCH (09:00)
[2022-11-20] MEDS: OLANZapine ZYDIS 5 MG ORALLY DIS. TAB PO SCH ×2 (09:00→21:32)
--- NOTE | 2022-11-20 09:54 | Discharge Summary ---
Date of Service November 20, 2022 Admission HPI Per Admitting Provider Marie Bee is a 72yo female with history of metastatic colon cancer with metastases to lung and brain presenting with right proximal femur fracture. Patient was transferring from her wheelchair to the commode when she felt a pop in her right hip. She then experienced pain and fell. She denies additional complaints - no fever, chills, chest pain, palpitations, abdominal pain, nausea, vomiting, diarrhea or constipation. No urinary complaints. She has stable baseline SOB. Otherwise, no complaints. In the ER she is afebrile ,HD stable, NAD. ER Course: Fentanyl, Zofran Admission Exam Per Admitting Provider General: patient resting comfortably, NAD, non-toxic in appearance, AA&O x 4, ill in appearance Skin: warm, dry, intact, no rashes or lesions HEENT: NC/AT, PERRL, EOMI, anicteric sclera, conjunctiva without injection, external ear normal to inspection and nontender, nares patent, moist mucus membranes, dentition intact, no oropharyngeal lesions, neck supple, trachea midline, no LAD, no thyromegaly, no JVD Heart: +S1/S2, regular, no m/r/g Lungs: equal air entry bilaterally, no rales/rhonchi/wheezes Abd: +BS, soft, NT/ND, no masses/organomegaly/ascites Ext: warm, 2+ pulses in UE/LE bilaterally, no clubbing/cyanosis or edema, RLE shortened Neuro: nonfocal, patient AA&O x 4, speech intact, no facial droop, moving all extremities on command with equal strength 5/5 Principal Diagnosis Closed, displaced right proximal femur fracture Discharge Exam Constitutional NAD. Tachycardic. Respiratory CTA bilaterally. No rhonchi, wheezing, or crackles. Non labored respirations. Cardiovascular Regular rate and rhythm. No murmur noted. No LE edema. Psychiatric Alert and oriented. Mood and affect congruent. Discharge Data Allergies Allergy/AdvReac Type Severity Reaction Status Date / Time diphtheria,pertussis Allergy Severe "Arm Verified 11/01/22 01:26 (acellular),te swelled [From Adacel(Tdap up," fever Adolesn/Adult)(PF)] irinotecan Allergy Severe perforations Verified 11/01/22 01:26 in bowel oxaliplatin Allergy Severe Anaphylaxis Verified 11/01/22 01:26 thiopental Allergy Intermediate INCREASED Verified 11/01/22 01:26 BLEEDING WITH WISDOM TEETH SURG anastrozole [From Arimidex] AdvReac Severe CAUSED Verified 11/01/22 01:26 INTERNAL BLEEDING meperidine AdvReac Mild N/V Verified 11/01/22 01:26 morphine AdvReac Mild N/V Verified 11/01/22 01:26 Consultations 11/13/22 02:53 ED Decision to Admit Stat 11/13/22 03:43 Consult Orthopedic Surgery Routine 11/14/22 08:53 Consult Neurology Routine Procedures Performed Operation Date: 11/14/22 07:30 <No data on this case meets the specified criteria> Operation Date: 11/16/22 07:00 Actual Procedures p Insertion of Trochanteric Nail Right Femur and Right Femur Bone Biopsy(Right) - Kd Barbour MD Ordered Studies 11/16/22 12:00 FL femur RT 2V Routine Hip/Pelvis X-Ray 11/13/22 01:58 SINGLE VIEW PELVIS; 2 VIEWS RIGHT HIP CLINICAL HISTORY: Right hip pain. FINDINGS: An AP view of the pelvis with AP and crosstable lateral views of the right hip are compared to study dated 08/28/2022 and correlated with pelvic CT dated 10/31/2022. The skeletal structures are osteopenic. There is an acute, displaced, and angulate acute fracture of the subtrochanteric right femur overlying soft tissue edema is noted. The shaft is offset by at least one shaft length on the crosstable lateral view. Question subtle cortical lucency at the fracture site. No additional fracture is seen involving the left hip or the bony pelvis. Minimal degenerative change is seen in the hips and sacroiliac joints. There is no bowel obstruction. Mesh material projects over the lower abdomen. IMPRESSION: 1. Displaced and angulated subtrochanteric fracture of the right proximal femur. 2. Question subtle cortical lucency at the fracture site. A pathologic fracture is not excluded. 3. No additional fracture is seen involving the left hip or bony pelvis. Electronically signed by: Isai Antoine M.D. 11/13/2022 6:51 AM Femur X-Ray 11/13/22 07:16 RIGHT FEMUR 2 VIEWS CLINICAL HISTORY: Femoral fracture. FINDINGS: AP and crosstable lateral views of the right femur are correlated with radiograph is of the right hip performed earlier the same day 11/13/2022. The skeletal structures are osteopenic. There is increasing angulation and angulated overriding of a subtrochanteric fracture of the right proximal femur. Ill-defin ed lucency at the fracture site is unchanged and could represent a pathologic fracture. Overlying soft tissue edema is noted. The distal right femur is intact, as is the visualized right hemipelvis. The hip and knee joints are grossly maintained. IMPRESSION: 1. Increasing angulation and overriding of a subtrochanteric fracture of the right proximal femur. 2. There is ill-defined lucency at the fracture site such that pathologic fracture is not excluded. Electronically signed by: Isai Antoine M.D. 11/13/2022 10:59 AM Femur X-Ray 11/16/22 12:00 FL femur RT 2V CLINICAL HISTORY: RT IM CINDA TECHNIQUE: 5 views were obtained with the C-arm in the OR with the above procedure. Total fluoroscopy time was 2 minutes 43 seconds. Radiation dose was 40.28 mGy. Comparison: Comparison is made to a radiograph 01/14/2022 FINDINGS/IMPRESSION: Intraoperative images were obtained of right intramedullary cinda. Please correlate with intraoperative fluoroscopy and operative report. ACT 112: Negative or not required by law. Electronically signed by: Jean Carlos Burns M.D. 11/16/2022 4:07 PM Femur X-Ray 11/16/22 16:47 XR femur RT 2V routine CLINICAL HISTORY: postop femoral nail TECHNIQUE: 2 radiographic views of the right femur were obtained. Comparison: Comparison is made to right femur radiograph 10/14/2022 FINDINGS: Interval placement of a femoral cinda. The fracture fragments are in satisfactory alignment. The visualized portion of the hip and knee joints are unremarkable. The soft tissues are unremarkable. IMPRESSION: Interval placement of a femoral cinda with expected postoperative changes. The fracture fragments are in satisfactory alignment. ACT 112: Negative or not required by law. Electronically signed by: Jean Carlos Burns M.D. 11/16/2022 5:12 PM KUB X-Ray 11/19/22 11:08 KUB HISTORY: drop in hemoglobin COMPARISON: Abdomen and pelvis CT 10/31/2022. FINDINGS: The bowel gas pattern is unremarkable. There are no dilated loops of small bowel to suggest an obstruction. No renal calculi. No ureteral calculi. No pneumoperitoneum or pneumatosis. Prior mesh repair of an abdominal hernia. Recent internal fixation of the right femoral fracture with an intramedullary cinda and interlocking femoral neck pin. Right hip soft tissue swelling is likely due to the recent postoperative change. Prior cholecystectomy. Mildly dilated gas-filled loops of large and small bowel are nonspecific but favor an ileus. Moderate well-formed stool within the rectum. IMPRESSION: 1. Mildly dilated gas-filled loops of large and small bowel favor a postoperative ileus. 2. Moderate well-formed stool within the rectum. 3. Recent internal fixation of a right proximal femoral fracture. ACT 112: Negative or not required by law. Electronically signed by: Norberto Pandya M.D. 11/19/2022 12:20 PM Hospital Course (1) Metastatic colon cancer in female: Marie is a 72 y/o female with metastatic colon cancer (mets to lung and brain) who presented to the ER for hip pain. She was transferring from wheelchair to toilet when she felt a "pop." She did not fall or hit head. She is currently on home hospice and per prior palliative care notes, her life expectancy is <1 month. Closed Fracture of Proximal End of Right Femur -X-ray: displaced and angulated subtrochanteric fracture of right proximal femur, "pathologic fracture cannot be excluded" -Tylenol, Dilaudid PO 1mg PRN for pain control -Phenergan and Zofran PRN nausea -PO Day #4: procedure successful, recovering well. Pain controlled. Planned to discharge 11/19, unfortunately hemoglobin had been downtrending for 2 days and dropped to 6.8. Patient asymptomatic, drop likely related to surgery and not indicative of active bleed. Iron panel completed, slight decrease in TIBC but otherwise normal. KUB suggestive of postoperative ileus. Pt received 1 unit PRBC with repeat Hgb showed of 7.9. - Hgb morning of discharge, 7.4 - given 200 mg venofer, 1000 mcg B12 IM, and 1 mg folate IM before discharge - pt does not wish any further work up for anemia at this point; pt is requesting to go home - pt has not been symptomatic for anemia at any point Metastatic Colon Cancer - Colon cancer dx 15+ yrs ago, recent diagnosis of mets to lung and brain - Currently on home hospice, lives with - Pt received radiation; therefore, tapering dexamethasone recommended - home dose 4mg q6hr; cut back to 4 mg q12hr upon discharge - if pt tolerating this dose well over the next 4 days, recommend decreasing by another 50% - further tapering recommendations at discretion of home hospice team Thyroid Disorder -Recent TSH 1.39 -Continue home dose levothyroxine (2) Closed fracture of proximal end of right femur: (3) Thyroid disorder: Plan Dispo: home w/ hospice Code: DNR/DNI Diet: Regular diet (easy to chew) Total Time Total Time Spent Total Time Spent (In Minutes): as per attending attestation Discharge Plan Discharge Items Patient Disposition: Hospice - Home Reason For Visit: RIGHT HIP FRACTURE Discharge Diagnosis: Right Hip Fracture Condition on Discharge: Fair Activity: Per Instructions section Non-emergency contact: Primary Care Provider Call non-emergency contact if: you have any medication questions and your symptoms worsen Follow-up/Referrals: Bacilio Garcia MD [Primary Care Provider] - Diet: Regular Addtl Attending Provider Instructions: Post Operative Care Following Hip Surgery - Orthopedics -You can weight bear as tolerated on her right leg. You will need a walker for ambulation and assistance for transfers. -Dressing should remain in place until 11/19. Reinforce dressing if it becomes saturated prior to 11/19. After 11/19 incisions can be open to air once there is no incisional drainage. Dressing changes daily as needed if there is any inc isional drainage. No submerging in any water until 3 weeks post op -Tow can be removed at 2 weeks post op. Hospice nursing can do this at home if hospice staff or patient would like they can follow up in our office at 2 weeks post op for staple removal Marie, you presented due to hip pain after hearing a "pop" while transferring from wheelchair to toilet. After being brought to the hospital, you were found to have a displaced and angulated right hip fracture. There were some initial concerns for proceeding with anesthesia/tolerating surgery given your metastatic disease, however after discussion with neurology and consultation with anesthesia, orthopedics was able to proceed with the surgery with a goal of repair for pain control. The procedure was successful, and since surgery your p ain seems to be well managed and you were transitioned back to your home pain regimen of oral Dilaudid. Due to a drop in hemoglobin, we decided to give you one unit of blood prior to discharge. No changes were made to your home medications except for tapering your dexamethasone. Now that you have received radiation, a slow taper off your steroids is recommended. If you are tolerating this dose in 4 days, will recommend to cut back another 50%. Further tapering will be deferred to your home hospice team. You are being discharged back home with hospice. We will also recommend taking miralax twice a day until you have a bowel movement. We hope you enjoy a Merry Nikki with your family. Pending Studies at Discharge: No Stand-Alone Forms: My [facility] Medications and DC Order Prescriptions: New polyethylene glycol 3350 [Miralax] 17 gram/dose powder 17 g PO BID Qty: 119 0RF Continued prochlorperazine maleate [Compazine] 10 mg tablet 10 mg PO Q6H PRN (Reason: Nausea And Vomiting) prednisolone acetate 1 % drops,suspension 1 drp ophthalmic (eye) DAILY sertraline 50 mg tablet 50 mg PO HS Qty: 90 3RF omeprazole 40 mg capsule,delayed release(DR/EC) 40 mg PO QAM Qty: 90 3RF diphenoxylate-atropine [Lomotil] 2.5-0.025 mg tablet 2 tab PO .Q6-8 hr PRN (Reason: Diarrhea) simvastatin 20 mg tablet 20 mg PO QPM Qty: 90 3RF amiodarone 200 mg tablet 200 mg PO DAILY Qty: 90 3RF pyridoxine (vitamin B6) [Vitamin B-6] 100 mg Tablet 100 mg PO QDL magnesium hydroxide [Milk of Magnesia] 400 mg/5 mL Suspension 30 ml PO Q6H PRN (Reason: constipation) Qty: 1 0RF olanzapine 5 mg Tablet,Disintegrating 5 mg PO BID Qty: 10 0RF sennosides [senna] 8.6 mg tablet 8.6 - 17.2 mg PO DAILY hydromorphone [Dilaudid] 1 mg/mL liquid 1 mg PO .EVERY 2 HOURS PRN (Reason: pain/dyspnea) acetaminophen 650 mg suppository 650 mg TX Q4 PRN (Reason: Fever Or Pain) promethazine 25 mg tablet 25 mg PO Q6 PRN (Reason: Nausea) acetaminophen 325 mg tablet 650 mg PO Q4H PRN (Reason: Fever Or Pain) ipratropium-albuterol 0.5 mg-3 mg(2.5 mg base)/3 mL solution for nebulization 3 ml INHALATION Q6 PRN (Reason: Shortness Of Breath) levothyroxine 125 mcg tablet 125 mcg PO DAILYBB Daily Multivitamin-Minerals Tablet 1 tab PO DAILY colestipol [Colestid] 1 gram tablet 1 g PO . ON HOLD hyoscyamine sulfate 0.125 mg tablet 0.125 mg sublingual Q4 PRN (Reason: terminal secretions) lorazepam 1 mg tablet 0.5 mg PO Q4 PRN (Reason: restlessness/insomnia) Rx Instructions: may take po,sl,pr/ may repeat in 1 hour if not relieved. lorazepam 1 mg tablet 2 mg sublingual .EVERY 15 MINUTES MDD 6 PRN (Reason: Seizures) Rx Instructions: may give sl or pr ondansetron 8 mg tablet,disintegrating 8 mg translingual Q8 PRN (Reason: Nausea) Changed dexamethasone 4 mg Tablet 4 mg PO Q12H Qty: 30 0RF Admission Data Admit Date/Time: 11/13/22 03:10 Attending Provider: Alex Mujica Admit Provider: Jessica Jiang Primary Care Provider: Bacilio Garcia Other Providers: Jessica Jiang ; Kd Barbour ; Abdirahman Gurrola ; Jef Martinez ; Katie Marr ; Chasidy Gomez ; Gerardo Ortiz ; Chasidy Leyva ; Ash Yanes ; Cely Lundberg ; Varinder Fabian ; Renetta Landers ; Kim Hahn ; Gerardo Benites ; Segundo Brock ; Joshua Callaway Other Interventions: Discharge Summary Assessment (RN) Last Done: 11/20/22 11:48 Resident Activity Tracking Resident Involvement: Resident Care Provided Care Provided: Adult Hospital Medicine
[2022-11-20] MEDS: POLYETHYLENE (MIRALAX) 17 GM PACK PO SCH (09:55)
[2022-11-20] MEDS ORDERED: IRON SUCROSE 200 MG in 0.9 % SODIUM CHLORIDE 100 ML IV ONE (10:00)
[2022-11-20] MEDS ORDERED: CYANOCOBALAMIN 1000 MCG/ML VIAL IM STA (10:23)
[2022-11-20] MEDS ORDERED: FOLIC ACID 5 MG/ML VIAL IM STA (10:25)
[2022-11-20] MEDS: HEPARIN 100 UNIT/ML 5ML FLUSH FLUSH PRN (10:41)
[2022-11-20] MEDS ORDERED: FOLIC ACID 5 MG/ML VIAL IM ONE (11:00)
[2022-11-20] MEDS: SENNA 8.6 MG TAB PO SCH (11:24)
--- NOTE | 2022-11-20 16:09 | Hospitalist Progress Note ---
Date of Service November 20, 2022 Assessment & Plan (1) Metastatic colon cancer in female: Plan: Pt is a 72 y/o female with metastatic colon cancer (mets to lung and brain) who presented to the ER for hip pain. She was transferring from wheelchair to toilet when she felt a "pop." She did not fall or hit head. She is currently on home hospice and per prior palliative care notes, her life expectancy is <1 month. Closed Fracture of Proximal End of Right Femur -X-ray: displaced and angulated subtrochanteric fracture of right proximal femur, "pathologic fracture cannot be excluded" -Tylenol, Dilaudid PO 1mg PRN for pain control -Phenergan and Zofran PRN nausea -PO Day #4: procedure successful, recovering well. Pain controlled. Planned to discharge 11/19, unfortunately hemoglobin had been downtrending for 2 days and dropped to 6.8. Patient asymptomatic, drop likely related to surgery and not indicative of active bleed. Iron panel completed, slight decrease in TIBC but otherwise normal. KUB suggestive of postoperative ileus. Pt received 1 unit PRBC with repeat Hgb showed of 7.9. - Hgb this morning 7.4 - given 200 mg venofer, 1000 mcg B12 IM, and 1 mg folate IM - pt does not wish any further work up for anemia at this point; pt is requesting to go home Planned again for discharge 11/20, but transportation fell through. CM to call transportation first thing in the AM to arrange. Metastatic Colon Cancer - Colon cancer dx 15+ yrs ago, recent diagnosis of mets to lung and brain - Currently on home hospice, lives with - Pt received radiation; therefore, tapering dexamethasone recommended - home dose 4mg q6hr; will cut back to 4 mg q12hr upon discharge - if pt tolerating this dose well over the next 4 days, recommend decreasing by another 50% - further tapering recommendations at discretion of home hospice team Thyroid Disorder -Recent TSH 1.39 -Continue home dose levothyroxine (2) Closed fracture of proximal end of right femur: (3) Thyroid disorder: Plan Dispo: home w/ hospice tomorrow pending transport Code: DNR/DNI Diet: Regular diet (easy to chew) Admission and Anticipated Discharge Date Admission Date: November 13, 2022 Supervising Physician Co-Signing Physician Notes I personally examined the patient and verified all florian points of history and exam, discussed case, and agree with decision making with Dr Tan. Patient reports her pain is well controlled. Patient's hemoglobin is above 7. Patient remains panyctopenic. Also obtained KUB as patient has not had any Bowel movements. Added miralax to her regimen. Plan was to discharge patient as she can enjoy the holidays with her family, however, transportation was cancelled. Family tried to crab picker patient but unable to get patient in the vehicle. Discharge delayed. Patient is not showing signs of GI bleed, and this is likely secondary to her history of chemotherapy and recent orthopedic surgery. Patient is status ORIF. Plan is for her to go back home on hospice. Subjective Pt is a 72 y/o female with metastatic colon cancer (mets to lung and brain) who presented to the ER for hip pain. She was transferring from wheelchair to toilet when she felt a "pop." She did not fall or hit head. She is currently on home hospice and per prior palliative care notes, her life expectancy is <1 month. Pt seen and examined at bedside this AM. She denies dizziness, lightheadedness, SOB, chest pain, or pain otherwise. Pt wishes to go home as her life expectancy at this point is short. Review of Systems Review of Systems: As per HPI Physical Exam Constitutional: NAD. Tachycardic. Eyes: no conjunctival abnormality Respiratory: CTA bilaterally. No rhonchi, wheezing, or crackles. Non labored breathing. Cardiovascular: RRR. No murmur noted. No LL edema. Gastrointestinal (Abdomen): Nontender, +BS. No masses noted. Skin: no rashes, warm and dry Psychiatric: Alert. Mood and affect congruent. Results & Data Results & Data ([facility]) Vital Signs (Past 12 Hours) Vital Signs Temp Pulse Resp BP Pulse Ox O2 Del Method O2 Flow Rate 11/20/22 09:58 36.5 C 104 H 20 135/82 98 Nasal Cannula 2 11/20/22 07:27 36.5 C 95 H 18 115/77 100 Nasal Cannula 2 Resident Activity Tracking Resident Involvement: Resident Care Provided Care Provided: Adult [facility] Medicine
[2022-11-20] MEDS: SERTRALINE HCL 50 MG TABLET PO SCH (21:32)
[2022-11-20] MEDS: SIMVASTATIN 20 MG TAB PO SCH (21:32)
[2022-11-21] MEDS: LEVOTHYROXINE SODIUM 125 MCG TABLET PO SCH (06:13)
[2022-11-21] MEDS: PANTOprazole 40 MG TAB PO SCH (09:13)
[2022-11-21] MEDS: OLANZapine ZYDIS 5 MG ORALLY DIS. TAB PO SCH (09:13)
[2022-11-21] MEDS: dexAMETHasone 4 MG TAB PO SCH (09:13)
[2022-11-21] MEDS: SENNA 8.6 MG TAB PO SCH (09:13)
[2022-11-21] MEDS: prednisoLONE acetate 1% OP SUSP 5 ML BTL OP SCH (09:14)
[2022-11-21] MEDS: AMIODARONE 200 MG TAB PO SCH (09:14)
[2022-11-21] MEDS: POLYETHYLENE (MIRALAX) 17 GM PACK PO SCH (09:15)
--- NOTE | 2022-11-21 11:10 | Billing Data ---
Date of Service November 18, 2022 Coding Level of Care Code 59131 Subseq Hosp Care Lvl 3 Time Spent (min) 35
--- NOTE | 2022-11-21 11:21 | Billing Data ---
Date of Service November 19, 2022 Coding Level of Care Code 88621 Subseq Hosp Care Lvl 3 Time Spent (min) 35
--- NOTE | 2022-11-21 11:26 | Billing Data ---
Date of Service November 20, 2022 Coding Level of Care Code 81322 Subseq Hosp Care Lvl 3 Time Spent (min) 35
--- NOTE | 2022-11-21 13:25 | Discharge Summary ---
Date of Service November 21, 2022 Admission HPI Per Admitting Provider Marie Bee is a 72yo female with history of metastatic colon cancer with metastases to lung and brain presenting with right proximal femur fracture. Patient was transferring from her wheelchair to the commode when she felt a pop in her right hip. She then experienced pain and fell. She denies additional complaints - no fever, chills, chest pain, palpitations, abdominal pain, nausea, vomiting, diarrhea or constipation. No urinary complaints. She has stable baseline SOB. Otherwise, no complaints. In the ER she is afebrile ,HD stable, NAD. ER Course: Fentanyl, Zofran Admission Exam Per Admitting Provider General: patient resting comfortably, NAD, non-toxic in appearance, AA&O x 4, ill in appearance Skin: warm, dry, intact, no rashes or lesions HEENT: NC/AT, PERRL, EOMI, anicteric sclera, conjunctiva without injection, external ear normal to inspection and nontender, nares patent, moist mucus membranes, dentition intact, no oropharyngeal lesions, neck supple, trachea midline, no LAD, no thyromegaly, no JVD Heart: +S1/S2, regular, no m/r/g Lungs: equal air entry bilaterally, no rales/rhonchi/wheezes Abd: +BS, soft, NT/ND, no masses/organomegaly/ascites Ext: warm, 2+ pulses in UE/LE bilaterally, no clubbing/cyanosis or edema, RLE shortened Neuro: nonfocal, patient AA&O x 4, speech intact, no facial droop, moving all extremities on command with equal strength 5/5 Principal Diagnosis right hip fracture Discharge Exam Constitutional NAD. Vitals WNL. Respiratory CTA bilaterally. No rhonchi, wheezing, or crackles. Non labored respirations. Cardiovascular Regular rhythm and rate. No murmur noted. Psychiatric Alert. Mood and affect congruent. Discharge Data Allergies Allergy/AdvReac Type Severity Reaction Status Date / Time diphtheria,pertussis Allergy Severe "Arm Verified 11/01/22 01:26 (acellular),te swelled [From Adacel(Tdap up," fever Adolesn/Adult)(PF)] irinotecan Allergy Severe perforations Verified 11/01/22 01:26 in bowel oxaliplatin Allergy Severe Anaphylaxis Verified 11/01/22 01:26 thiopental Allergy Intermediate INCREASED Verified 11/01/22 01:26 BLEEDING WITH WISDOM TEETH SURG anastrozole [From Arimidex] AdvReac Severe CAUSED Verified 11/01/22 01:26 INTERNAL BLEEDING meperidine AdvReac Mild N/V Verified 11/01/22 01:26 morphine AdvReac Mild N/V Verified 11/01/22 01:26 Consultations 11/13/22 02:53 ED Decision to Admit Stat 11/13/22 03:43 Consult Orthopedic Surgery Routine 11/14/22 08:53 Consult Neurology Routine Procedures Performed Operation Date: 11/14/22 07:30 <No data on this case meets the specified criteria> Operation Date: 11/16/22 07:00 Actual Procedures p Insertion of Trochanteric Nail Right Femur and Right Femur Bone Biopsy(Right) - Kd Barbour MD Ordered Studies 11/16/22 12:00 FL femur RT 2V Routine Hip/Pelvis X-Ray 11/13/22 01:58 SINGLE VIEW PELVIS; 2 VIEWS RIGHT HIP CLINICAL HISTORY: Right hip pain. FINDINGS: An AP view of the pelvis with AP and crosstable lateral views of the right hip are compared to study dated 08/28/2022 and correlated with pelvic CT dated 10/31/2022. The skeletal structures are osteopenic. There is an acute, displaced, and angulate acute fracture of the subtrochanteric right femur overlying soft tissue edema is noted. The shaft is offset by at least one shaft length on the crosstable lateral view. Question subtle cortical lucency at the fracture site. No additional fracture is seen involving the left hip or the bony pelvis. Minimal degenerative change is seen in the hips and sacroiliac joints. There is no bowel obstruction. Mesh material projects over the lower abdomen. IMPRESSION: 1. Displaced and angulated subtrochanteric fracture of the right proximal femur. 2. Question subtle cortical lucency at the fracture site. A pathologic fracture is not excluded. 3. No additional fracture is seen involving the left hip or bony pelvis. Electronically signed by: Isai Antoine M.D. 11/13/2022 6:51 AM Femur X-Ray 11/13/22 07:16 RIGHT FEMUR 2 VIEWS CLINICAL HISTORY: Femoral fracture. FINDINGS: AP and crosstable lateral views of the right femur are correlated with radiograph is of the right hip performed earlier the same day 11/13/2022. The skeletal structures are osteopenic. There is increasing angulation and angulated overriding of a subtrochanteric fracture of the right proximal femur. Ill- defined lucency at the fracture site is unchanged and could represent a pathologic fracture. Overlying soft tissue edema is noted. The distal right femur is intact, as is the visualized right hemipelvis. The hip and knee joints are grossly maintained. IMPRESSION: 1. Increasing angulation and overriding of a subtrochanteric fracture of the right proximal femur. 2. There is ill-defined lucency at the fracture site such that pathologic fracture is not excluded. Electronically signed by: Isai Antoine M.D. 11/13/2022 10:59 AM Femur X-Ray 11/16/22 12:00 FL femur RT 2V CLINICAL HISTORY: RT IM CINDA TECHNIQUE: 5 views were obtained with the C-arm in the OR with the above procedure. Total fluoroscopy time was 2 minutes 43 seconds. Radiation dose was 40.28 mGy. Comparison: Comparison is made to a radiograph 01/14/2022 FINDINGS/IMPRESSION: Intraoperative images were obtained of right intramedullary cinda. Please correlate with intraoperative fluoroscopy and operative report. ACT 112: Negative or not required by law. Electronically signed by: Jean Carlos Burns M.D. 11/16/2022 4:07 PM Femur X-Ray 11/16/22 16:47 XR femur RT 2V routine CLINICAL HISTORY: postop femoral nail TECHNIQUE: 2 radiographic views of the right femur were obtained. Comparison: Comparison is made to right femur radiograph 10/14/2022 FINDINGS: Interval placement of a femoral cinda. The fracture fragments are in satisfactory alignment. The visualized portion of the hip and knee joints are unremarkable. The soft tissues are unremarkable. IMPRESSION: Interval placement of a femoral cinda with expected postoperative changes. The fracture fragments are in satisfactory alignment. ACT 112: Negative or not required by law. Electronically signed by: Jean Carlos Burns M.D. 11/16/2022 5:12 PM KUB X-Ray 11/19/22 11:08 KUB HISTORY: drop in hemoglobin COMPARISON: Abdomen and pelvis CT 10/31/2022. FINDINGS: The bowel gas pattern is unremarkable. There are no dilated loops of small bowel to suggest an obstruction. No renal calculi. No ureteral calculi. No pneumoperitoneum or pneumatosis. Prior mesh repair of an abdominal hernia. Recent internal fixation of the right femoral fracture with an intramedullary cinda and interlocking femoral neck pin. Right hip soft tissue swelling is likely due to the recent postoperative change. Prior cholecystectomy. Mildly dilated gas-filled loops of large and small bowel are nonspecific but favor an ileus. Moderate well-formed stool within the rectum. IMPRESSION: 1. Mildly dilated gas-filled loops of large and small bowel favor a postoperative ileus. 2. Moderate well-formed stool within the rectum. 3. Recent internal fixation of a right proximal femoral fracture. ACT 112: Negative or not required by law. Electronically signed by: Norberto Pandya M.D. 11/19/2022 12:20 PM Hospital Course (1) Metastatic colon cancer in female: Pt is a 72 y/o female with metastatic colon cancer (mets to lung and brain) who presented to the ER for hip pain. She was transferring from wheelchair to toilet when she felt a "pop." She did not fall or hit head. She is currently on home hospice and per prior palliative care notes, her life expectancy is <1 month. Closed Fracture of Proximal End of Right Femur -X-ray: displaced and angulated subtrochanteric fracture of right proximal femur, "pathologic fracture cannot be excluded" -Tylenol, Dilaudid PO 1mg PRN for pain control -Phenergan and Zofran PRN nausea -PO Day #5: procedure successful, recovering well. Pain controlled. 11/19: Planned to discharge, unfortunately hemoglobin had been downtrending for 2 days and dropped to 6.8. Patient asymptomatic, drop likely related to surgery and not indicative of active bleed. Iron panel completed, slight decrease in TIBC but otherwise normal. KUB suggestive of postoperative ileus. Pt received 1 unit PRBC with repeat Hgb showed of 7.9. 11/20: Hgb 7.4, given 200 mg venofer, 1000 mcg B12 IM, and 1 mg folate IM. Pt does not wish any further work up for anemia at this point; pt is requesting to go home 11/11: discharge successful to home w/ hospice Metastatic Colon Cancer - Colon cancer dx 15+ yrs ago, recent diagnosis of mets to lung and brain - Currently on home hospice, lives with - Pt received radiation; therefore, tapering dexamethasone recommended - home dose 4mg q6hr; cut back to 4 mg q12hr upon discharge - if pt tolerating this dose well over the next 4 days, recommend decreasing by another 50% - further tapering recommendations at discretion of home hospice team Thyroid Disorder -Recent TSH 1.39 -Continue home dose levothyroxine (2) Closed fracture of proximal end of right femur: (3) Thyroid disorder: Plan Dispo: home w/ hospice Code: DNR/DNI Diet: Regular diet (easy to chew) Total Time Total Time Spent Total Time Spent (In Minutes): <30 Discharge Plan Discharge Items Patient Disposition: Hospice - Home Reason For Visit: RIGHT HIP FRACTURE Discharge Diagnosis: Right Hip Fracture Condition on Discharge: Fair Activity: Per Instructions section Non-emergency contact: Primary Care Provider Call non-emergency contact if: you have any medication questions and your symptoms worsen Follow-up/Referrals: Bacilio Garcia MD [Primary Care Provider] - Diet: Regular Addtl Attending Provider Instructions: Post Operative Care Following Hip Surgery - Orthopedics -You can weight bear as tolerated on her right leg. You will need a walker for ambulation and assistance for transfers. -Dressing should remain in place until 11/19. Reinforce dressing if it becomes saturated prior to 11/19. After 11/19 incisions can be open to air once there is no incisional drainage. Dressing changes daily as needed if there is any incisional drainage. No submerging in any water until 3 weeks post op -[place] can be removed at 2 weeks post op. Hospice nursing can do this at home if hospice staff or patient would like they can follow up in our office at 2 weeks post op for staple removal Marie, you presented due to hip pain after hearing a "pop" while transferring from wheelchair to toilet. After being brought to the hospital, you were found to have a displaced and angulated right hip fracture. There were some initial concerns for proceeding with anesthesia/tolerating surgery given your metastatic disease, however after discussion with neurology and consultation with anesthesia, orthopedics was able to proceed with the surgery with a goal of repair for pain control. The procedure was successful, and since surgery your pain seems to be well managed and you were transitioned back to your home pain regimen of oral Dilaudid. Due to a drop in hemoglobin, we decided to give you one unit of blood prior to discharge. No changes were made to your home medications except for tapering your dexamethasone. Now that you have received radiation, a slow taper off your steroids is recommended. If you are tolerating this dose in 4 days, will recommend to cut back another 50%. Further tapering will be deferred to your home hospice team. You are being discharged back home with hospice. We will also recommend taking miralax twice a day until you have a bowel movement. We hope you enjoy a Merry Nikki with your family. Pending Studies at Discharge: No Stand-Alone Forms: My [facility] Medications and DC Order Prescriptions: New polyethylene glycol 3350 [Miralax] 17 gram/dose powder 17 g PO BID Qty: 119 0RF Continued prochlorperazine maleate [Compazine] 10 mg tablet 10 mg PO Q6H PRN (Reason: Nausea And Vomiting) prednisolone acetate 1 % drops,suspension 1 drp ophthalmic (eye) DAILY sertraline 50 mg tablet 50 mg PO HS Qty: 90 3RF omeprazole 40 mg capsule,delayed release(DR/EC) 40 mg PO QAM Qty: 90 3RF diphenoxylate-atropine [Lomotil] 2.5-0.025 mg tablet 2 tab PO .Q6-8 hr PRN (Reason: Diarrhea) simvastatin 20 mg tablet 20 mg PO QPM Qty: 90 3RF amiodarone 200 mg tablet 200 mg PO DAILY Qty: 90 3RF pyridoxine (vitamin B6) [Vitamin B-6] 100 mg Tablet 100 mg PO QDL magnesium hydroxide [Milk of Magnesia] 400 mg/5 mL Suspension 30 ml PO Q6H PRN (Reason: constipation) Qty: 1 0RF olanzapine 5 mg Tablet,Disintegrating 5 mg PO BID Qty: 10 0RF sennosides [senna] 8.6 mg tablet 8.6 - 17.2 mg PO DAILY hydromorphone [Dilaudid] 1 mg/mL liquid 1 mg PO .EVERY 2 HOURS PRN (Reason: pain/dyspnea) acetaminophen 650 mg suppository 650 mg MO Q4 PRN (Reason: Fever Or Pain) promethazine 25 mg tablet 25 mg PO Q6 PRN (Reason: Nausea) acetaminophen 325 mg tablet 650 mg PO Q4H PRN (Reason: Fever Or Pain) ipratropium-albuterol 0.5 mg-3 mg(2.5 mg base)/3 mL solution for nebulization 3 ml INHALATION Q6 PRN (Reason: Shortness Of Breath) levothyroxine 125 mcg tablet 125 mcg PO DAILYBB Daily Multivitamin-Minerals Tablet 1 tab PO DAILY colestipol [Colestid] 1 gram tablet 1 g PO . ON HOLD hyoscyamine sulfate 0.125 mg tablet 0.125 mg sublingual Q4 PRN (Reason: terminal secretions) lorazepam 1 mg tablet 0.5 mg PO Q4 PRN (Reason: restlessness/insomnia) Rx Instructions: may take po,sl,pr/ may repeat in 1 hour if not relieved. lorazepam 1 mg tablet 2 mg sublingual .EVERY 15 MINUTES MDD 6 PRN (Reason: Seizures) Rx Instructions: may give sl or pr ondansetron 8 mg tablet,disintegrating 8 mg translingual Q8 PRN (Reason: Nausea) Changed dexamethasone 4 mg Tablet 4 mg PO Q12H Qty: 30 0RF Discharge Orders: Discharge Order (Routine); Ordered 11/21/22 Ordered By: Cinthia Tan Admission Data Admit Date/Time: 11/13/22 03:10 Attending Provider: Alex Mujica Admit Provider: Jessica Jiang Primary Care Provider: Bacilio Garcia Other Providers: Jessica Jinag ; Kd Barbour ; Abdirahman Gurrola ; Jef Martinez ; Katie Marr ; Chasidy Gomez ; Gerardo Ortiz ; Chasidy Leyva ; Ash Yanes ; Cely Lundberg ; Varinder Fabian ; Renetta Landers ; Kim Hahn ; Gerardo Benites ; Segundo Brock ; Joshua Callaway Other Interventions: Discharge Summary Assessment (RN) Last Done: 11/20/22 11:48 Supervising Physician Co-Signing Physician Notes I personally examined the patient and verified all florian points of history and exam, discussed case, and agree with decision making with Dr Tan pain reasonable. hopes to get home today. per case management transport is set up. Vitals noted, in general she is awake and alert pleasant no distress. HEENT normocephalic atraumatic mucous membranes moist. Breathing unlabored no accessory muscle use good effort. Skin shows no rashes no pallor or icterus. Neuro without focal deficits. Femur fractureprobably pathologic given her lack of trauma. If not pathologic then definitely severe osteoporosis, but with the known metastatic cancer and more concerned about pathologic. Now status post ORIF. safe for home /hospice again. Resident Activity Tracking Resident Involvement: Resident Care Provided Care Provided: Adult [facility] Medicine
--- NOTE | 2022-11-21 17:18 | Billing Data ---
Date of Service November 21, 2022 Coding Level of Care Code D/C DAY MANAGEMENT <30 MINS
--- NOTE | 2022-12-01 11:30 | Coding Query ---
ANEMIA To promote full compliance with coding requirements relating to patient care, physician participation is requested in all cases of decator operator uncertainty. Please assist us with the question(s) below: Coding Question(s): The record reflects the following clinical findings: 11/19/22 downtrending hemoglobin to 6.8, received 1 unit PRBC, repeat H&H If these findings are indicative of anemia, please specify the known or suspected type by placing an "X" within the parenthesis (x). If other, please document type. Examples are: ( ) Acute blood loss anemia ( x) Acute Postoperative blood loss anemia ( ) Acute postoperative anemia due to dilutional fluids ( ) Chronic blood loss anemia ( ) Anemia of chronic disease ( ) Aplastic anemia ( ) Anemia due to renal disease ( ) Anemia in neoplastic disease ( ) Iron deficient anemia ( ) Anemia, unspecified or other ( ) Other: (please specify) ( ) Unable to determine Thank you Katia RANKIN
--- NOTE | 2022-12-01 11:31 | Coding Query ---
BMI To promote full compliance with coding requirements relating to patient care, physician participation is requested in all cases of medical biller/coder uncertainty. Please assist us with the question(s) below: Please place an X within the parenthesis (x). If other, please document: BMI in excess of 40 was documented in this record for this patient. If the BMI is significant, please check the box that provides a more specific associated diagnosis: ( ) Overweight/Obese ( ) Obesity (x) Morbid obesity ( ) Obesity Hypoventilation Syndrome (OHS) ( ) Heathy weight, not significant ( ) Underweight/Thin ( ) Other, please specify Thank you Katia RANKIN
== END 2022-11-21 12:54 | disposition hospice, home (50) | DRG 477 ==
LOC: ED 01:47 → 3W 03:10 → SUATTDRO 03:10 → 3W 03:37